=== PATIENT | male | born 1955 | race Caucasian/White ===

== ENCOUNTER 2018-11-26 11:15 | Emergency (ER) | payer MEDICAID, SELFPAY ==
[2018-11-26 11:16] VITALS: BP 158/82; PULSE 56; RESP 20; TEMP 36.6; O2SAT 99; BMI 22.9
--- NOTE | 2018-11-26 11:28 | RAD_ITS ---
STUDY: X-RAY - LEFT WRIST REASON FOR EXAM: Male, 63 years old. Pain and deformity following a fall. TECHNIQUE: 3 view(s) of the wrist were obtained. COMPARISON: None. FINDINGS: Normal visualized distal radius and ulna. There is degenerative arthrosis of the radiocarpal articulation. Normal distal radioulnar articulation. Normal carpal bones. Normal carpal articulations. Normal carpometacarpal articulation of the thumb. Normal second through fifth carpometacarpal articulations. Normal visualized metacarpal bones. Soft tissue swelling. RAD/Wrist min 3 Views IMPRESSION: Degenerative changes at the radial carpal joint. Soft tissue swelling. Electronically Signed: Sorin Sorensen MD at 12:43 EST , Service support ,
--- NOTE | 2018-11-26 11:31 | ED.VISSUMM ---
- ER Visit Summary Date of Service: 11/26/18 Chief Complaint: Left wrist injury History of Present Illness: The patient is a 63 M presents to the emergency department left wrist injury. Patient was in her normal state of health. 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 He states that he slipped on a wet area of ground. He landed and try to catch himself with an outstretched left wrist behind him. He did not strike his head. He denies loss of consciousness. He is complaining of a sharp, stabbing pain in the wrist. He denies any other systemic symptoms. He is otherwise been in his normal state of health. Physical Examination: Exam is relatively unremarkable. The patient does have some swelling on the dorsum of the left wrist near the scaphoid. His pulses are normal. He is neurovascularly intact distally. The skin is not tenting. Test Results: [] Emergency Department Course and Treatment: Plain films were obtained of the wrist. There is no evidence of acute fracture. He does have rather significant arthritic change. I did discuss options with the patient. He is comfortable in a Velcro splint and I feel this is reasonable. He will be given a short course of analgesics. The patient already has orthopedic follow-up in place. He will be discharged home. Treatment Plan: [] Disposition: [] Impression: Urge 1. left wrist sprain This note was generated with Ribbon dictation software. It may contain incorrect words, spelling, and punctuation that were not noted in review of the chart prior to signing ED Disposition - Plan for ED Patient: Disposition: Home or Assisted Living Instructions: ED Sprain Wrist Prescriptions: Oxycodone HCl/Acetaminophen [Percocet 5/325] 1 tab PO Q6H PRN PRN 3 Days #8 tab PRN Reason: Pain Referrals: Ricky Emerson DO [Primary Care Provider] -
[2018-11-26] MEDS: oxyCODONE 5 MG Tablet PO (11:45)
== END 2018-11-26 13:26 | disposition home or self-care (01) ==
LOC: ED 12:21
PROVIDERS: Emergency Provider Emergency Medicine; Family Provider Family Medicine; PCP Family Medicine
DX: S63.502A Unspecified sprain of left wrist, initial encounter (principal); W01.0XXA Fall on same level from slipping, tripping and stumbling without subsequent striking against object, initial encounter; Y93.9 Activity, unspecified; Y92.9 Unspecified place or not applicable; Z72.0 Tobacco use
CPT/HCPCS: 73110; 99283

== ENCOUNTER 2018-12-29 16:57 | Emergency (ER) | payer MEDICAID, SELFPAY ==
[2018-12-29 16:57] VITALS: BP 161/108; PULSE 66; RESP 18; TEMP 37.1; O2SAT 99; BMI 23.6
--- NOTE | 2018-12-29 17:31 | ED.RN ---
per pt, he does not want to file workers comp.
--- NOTE | 2018-12-29 17:36 | CT_ITS ---
STUDY: CT LUMBAR SPINE WITHOUT CONTRAST REASON FOR EXAM: Male, 63 years old. Back pain RADIATION DOSAGE (If Supplied By Facility): CTDIvol = ( 10.23 ) mGy, DLP = ( 294.84 ) mGycm TECHNIQUE: The patient was scanned in a multi detector CT scanner. High resolution transaxial imaging was performed. Sagittal and coronal images were reconstructed. Individualized dose optimization techniques were used for this CT. COMPARISON: Radiograph 04/05/2015 FINDINGS: Normal lumbar lordosis. There is no substantial scoliosis. There are mild multilevel Schmorl's nodes and osteophytes which are unchanged from prior study.. There is a 1 x 1.7 cm exophytic right renal lesion which does not measure a simple cyst. L1-2: Normal endplates. Normal disc height and morphology. Mild facet spondylosis Normal central canal and bilateral lateral recesses. Normal bilateral intervertebral neural foramina. L2-3: Normal endplates. Normal disc height and morphology. There is mild facet spondylosis.. Normal central canal and bilateral lateral recesses. Normal bilateral intervertebral neural foramina. L3-4: No disc protrusion. Mild facet and ligamentous hypertrophy. There is no foraminal stenosis. No central canal stenosis L4-5: There is mild Schmorl's node superior endplate of L5 inferior endplate of L4. There is mild posterior bulging annulus. There is ligamentous hypertrophy. There are Moderate facet degenerative changes. Mild central canal narrowing. There is no foraminal stenosis. L5-S1: There is disc space narrowing. There is mild posterior disc osteophyte complex. Moderate facet degenerative changes. There is no significant central canal stenosis. Mild left and mild right foraminal stenosis Normal visualized paraspinous soft tissue structures. CT/Spine Lumbar without Contrast IMPRESSION: Multilevel spondylosis as above, no acute fractures 1 x 1.7 cm right exophytic renal lesion which does not measure a simple cyst. This is either a hemorrhagic cyst versus renal malignancy. Right renal ultrasound is recommended if this is not a simple cyst then multiphase CT or MRI would be recommended to further evaluate Electronically Signed: Kevin Sparks, at 20:57 EDT Tel , Service support ,
--- NOTE | 2018-12-29 17:36 | RAD_ITS ---
STUDY: X-RAY - LEFT WRIST REASON FOR EXAM: Male, 63 years old. Pain injury TECHNIQUE: 3 view(s) of the wrist were obtained. COMPARISON: 11/26/2018. FINDINGS: There is radiocarpal joint space narrowing, subchondral sclerosis and osteophyte formation there is stable widening of the scapholunate distance. There is stable Mild proximal migration of the capitate. There is stable mild dorsal tilting of the lunate. These findings are unchanged. There is Mild soft tissue edema. There are no acute fractures. RAD/Wrist min 3 Views IMPRESSION: Stable exam, no acute fractures. Stable significant radiocarpal osteoarthrosis, osteoarthrosis within the intercarpal joints, findings suspicious for scapholunate tear, mid carpal disassociation and DISI instability pattern Mild soft tissue edema Electronically Signed: Kevin Sparks, at 20:37 EDT Tel , Service support ,
--- NOTE | 2018-12-29 17:37 | ED.VISSUMM ---
- ER Visit Summary Date of Service: 12/29/18 Chief Complaint: Back injury History of Present Illness: The patient is a 63 M who presents for back injury that occurred 4 hours prior to presentation. Patient states he was lifting a 5 gallon bucket full of cleaning solution. He injured his back and then fell off the platform which was 2-3 feet elevated above the ground. The pocket then fell on him. He thinks he landed on left outstretched wrist. He is having severe lumbar back pain and is unable to sit straight up. He is also complaining of left wrist pain. He denies hitting his head. Denies neck pain. He is not on any blood thinners. He denies any loss of bowel or bladder control. Denies any numbness or weakness in the legs. He was able to ambulate afterwards but cannot stand up straight. Physical Examination: Vital signs: afebrile, hemodynamically stable, no hypoxia on room air General: well nourished, well developed, sitting on bed leaning to the left and appears uncomfortable Skin: warm, dry, no rash, no pallor HEENT: normocephalic and atraumatic; PERRL, EOMI, moist mucous membranes, neck supple with no midline tenderness or deformity Cardiovascular: regular rate and rhythm without murmurs, no peripheral edema, 2+ pulses all distal extremities Respiratory: No increased work of breathing, lungs are clear to auscultation bilaterally, no rales, rhonchi or wheezing Abdominal: Abdomen is soft, nontender with normoactive bowel sounds, no guarding or rebound, no masses MSK: Moves all extremities, tenderness to palpation and with movement of the left wrist, mild swelling over the distal radius, patient able to lift the shoulder in abduction and flexion to 90 degrees. No deformities noted to the shoulder. No tenderness. Back: Midline tenderness to palpation in the upper lumbar spine. No obvious deformities. Straight leg raise in sitting position is negative bilaterally. Neuro: Awake and alert, oriented ?4. No facial droop, sensation and motor function intact and symmetric Test Results: Clinical Impression(s) from Imaging Studies Lumbar Spine CT 12/29/18 17:36 IMPRESSION: Multilevel spondylosis as above, no acute fractures 1 x 1.7 cm right exophytic renal lesion which does not measure a simple cyst. This is either a hemorrhagic cyst versus renal malignancy. Right renal ultrasound is recommended if this is not a simple cyst then multiphase CT or MRI would be recommended to further evaluate Electronically Signed: Kevin Sparks, at 20:57 EDT Tel , Service support , Wrist X-Ray 12/29/18 17:36 IMPRESSION: Stable exam, no acute fractures. Stable significant radiocarpal osteoarthrosis, osteoarthrosis within the intercarpal joints, findings suspicious for scapholunate tear, mid carpal disassociation and DISI instability pattern Mild soft tissue edema Electronically Signed: Kevin Sparks, at 20:37 EDT Tel , Service support , Medications Given Discontinued Medications Acetaminophen (Tylenol) 325 mg PO X1 ONE Stop: 12/29/18 17:38 Last Admin: 12/29/18 17:52 Dose: 325 mg Oxycodone HCl (Oxyir) 5 mg PO X1 ONE Stop: 12/29/18 17:38 Last Admin: 12/29/18 17:53 Dose: 5 mg Oxycodone HCl (Oxyir) 5 mg PO X1 ONE Stop: 12/29/18 20:18 Last Admin: 12/29/18 20:22 Dose: 5 mg Emergency Department Course and Treatment: Patient was given Percocet for pain. Because of the mechanism of injury, patient's inability to stand up straight, and his exquisite point tenderness, CT of the lumbar spine was performed. CT scan showed no fractures or dislocations of the lumbar spine. There was an incidental note of of right exophytic renal cyst with differential including renal malignancy. Patient's x-ray of the left wrist showed no fractures and showed significant degenerative changes. Because patient did swelling over the snuffbox region, patient was offered a splint but refused. Patient was discussed with Dr. Sumner guarding the incidental renal findings, and patient will be referred to him for follow-up of the renal cyst. Patient was given prescription for ibuprofen and Flexeril for his back sprain. He was given referral to a primary care doctor. Patient is to return if any worsening of his condition. Patient had no red flag symptoms that would be concerning for spinal cord injury and requiring emergent MRI. Patient discharged home. On reevaluation he was sitting in bed and appeared more comfortable. Treatment Plan: [] Disposition: [] Impression: Lumbar sprain secondary to fall, right exophytic renal mass, left wrist contusion This note was generated with Med fusion dictation software. It may contain incorrect words, spelling, and punctuation that were not noted in review of the chart prior to signing ED Disposition - Plan for ED Patient: Disposition: Home or Assisted Living Instructions: ED Low Back Pain Injury, ED Sprain Strain Lumbar, ED Sprain Wrist Prescriptions: Ibuprofen 600 mg PO Q6H PRN PRN #30 tab PRN Reason: Pain Cyclobenzaprine HCl 5 mg PO TID PRN #15 tab PRN Reason: Muscle Spasm Referrals: Ricky Emerson DO [STAFF PHYSICIAN] - As soon as possible Pascual Sumner MD [STAFF PHYSICIAN] - 1 Week Additional Instructions: You have a mass that was noted on your right kidney that requires further workup. Please contact the office of Dr. Sumner as it is possible to set up an appointment. Use ibuprofen for your back pain. You may use the muscle relaxant to help with muscle spasm. Do not drive or do any dangerous activities while taking the muscle relaxant, as it may make you sleepy or dizzy. If you have any worsening of your condition or any new concerning symptoms, please return immediately to the emergency department for another evaluation.
--- NOTE | 2018-12-29 17:41 | ED.DCSUM_ITS ---
- ER Visit Summary Date of Service: 12/29/18 Chief Complaint: Back injury History of Present Illness: The patient is a 63 M who presents for back injury that occurred 4 hours prior to presentation. Patient states he was lifting a 5 gallon bucket full of cleaning solution. He injured his back and then fell off the platform which was 2-3 feet elevated above the ground. The pocket then fell on him. He thinks he landed on left outstretched wrist. He is having severe lumbar back pain and is unable to sit straight up. He is also complaining of left wrist pain. He denies hitting his head. Denies neck pain. He is not on any blood thinners. He denies any loss of bowel or bladder control. Denies any numbness or weakness in the legs. He was able to ambulate afterwards but cannot stand up straight. Physical Examination: Vital signs: afebrile, hemodynamically stable, no hypoxia on room air General: well nourished, well developed, sitting on bed leaning to the left and appears uncomfortable Skin: warm, dry, no rash, no pallor HEENT: normocephalic and atraumatic; PERRL, EOMI, moist mucous membranes, neck supple with no midline tenderness or deformity Cardiovascular: regular rate and rhythm without murmurs, no peripheral edema, 2+ pulses all distal extremities Respiratory: No increased work of breathing, lungs are clear to auscultation bilaterally, no rales, rhonchi or wheezing Abdominal: Abdomen is soft, nontender with normoactive bowel sounds, no guarding or rebound, no masses MSK: Moves all extremities, tenderness to palpation and with movement of the left wrist, mild swelling over the distal radius, patient able to lift the shoulder in abduction and flexion to 90 degrees. No deformities noted to the shoulder. No tenderness. Back: Midline tenderness to palpation in the upper lumbar spine. No obvious deformities. Straight leg raise in sitting position is negative bilaterally. Neuro: Awake and alert, oriented ?4. No facial droop, sensation and motor function intact and symmetric Test Results: Clinical Impression(s) from Imaging Studies Lumbar Spine CT 12/29/18 17:36 IMPRESSION: Multilevel spondylosis as above, no acute fractures 1 x 1.7 cm right exophytic renal lesion which does not measure a simple cyst. This is either a hemorrhagic cyst versus renal malignancy. Right renal ultrasound is recommended if this is not a simple cyst then multiphase CT or MRI would be recommended to further evaluate Electronically Signed: Kevin Sparks, at 20:57 EDT Tel , Service support , Wrist X-Ray 12/29/18 17:36 IMPRESSION: Stable exam, no acute fractures. Stable significant radiocarpal osteoarthrosis, osteoarthrosis within the intercarpal joints, findings suspicious for scapholunate tear, mid carpal disassociation and DISI instability pattern Mild soft tissue edema Electronically Signed: Kevin Sparks, at 20:37 EDT Tel , Service support , Medications Given Discontinued Medications Acetaminophen (Tylenol) 325 mg PO X1 ONE Stop: 12/29/18 17:38 Last Admin: 12/29/18 17:52 Dose: 325 mg Oxycodone HCl (Oxyir) 5 mg PO X1 ONE Stop: 12/29/18 17:38 Last Admin: 12/29/18 17:53 Dose: 5 mg Oxycodone HCl (Oxyir) 5 mg PO X1 ONE Stop: 12/29/18 20:18 Last Admin: 12/29/18 20:22 Dose: 5 mg Emergency Department Course and Treatment: Patient was given Percocet for pain. Because of the mechanism of injury, patient's inability to stand up straight, an d his exquisite point tenderness, CT of the lumbar spine was performed. CT scan showed no fractures or dislocations of the lumbar spine. There was an incidental note of of right exophytic renal cyst with differential including renal malignancy. Patient's x-ray of the left wrist showed no fractures and showed significant degenerative changes. Because patient did swelling over the snuffbox region, patient was offered a splint but refused. Patient was discussed with Dr. Sumner guarding the incidental renal findings, and patient will be referred to him for follow-up of the renal cyst. Patient was given prescription for ibuprofen and Flexeril for his back sprain. He was given referral to a primary care doctor. Patient is to return if any worsening of his condition. Patient had no red flag symptoms that would be concerning for spinal cord injury and requiring emergent MRI. Patient discharged home. On reevaluation he was sitting in bed and appeared more comfortable. Treatment Plan: [] Disposition: [] Impression: Lumbar sprain secondary to fall, right exophytic renal mass, left wrist contusion This note was generated with Zalando dictation software. It may contain incorrect words, spelling, and punctuation that were not noted in review of the chart prior to signing ED Disposition - Plan for ED Patient: Disposition: Home or Assisted Living Instructions: ED Low Back Pain Injury, ED Sprain Strain Lumbar, ED Sprain Wrist Prescriptions: Ibuprofen 600 mg PO Q6H PRN PRN #30 tab PRN Reason: Pain Cyclobenzaprine HCl 5 mg PO TID PRN #15 tab PRN Reason: Muscle Spasm Referrals: Ricky Emerson DO [STAFF PHYSICIAN] - As soon as possible Pascual Sumner MD [STAFF PHYSICIAN] - 1 Week Additional Instructions: You have a mass that was noted on your right kidney that requires further workup. Please contact the office of Dr. Sumner as it is possible to set up an appointment. Use ibuprofen for your back pain. You may use the muscle relaxant to help with muscle spasm. Do not drive or do any dangerous activities while taking the muscle relaxant, as it may make you sleepy or dizzy. If you have any worsening of your condition or any new concerning symptoms, please return immediately to the emergency department for another evaluation.
[2018-12-29 17:46] VITALS: RESP 16
[2018-12-29] MEDS: Acetaminophen 325 MG Tablet PO (17:52)
[2018-12-29] MEDS: oxyCODONE 5 MG Tablet PO ×2 (17:53→20:22)
[2018-12-29 18:37] VITALS: RESP 18
[2018-12-29 21:22] VITALS: PULSE 88; RESP 18; O2SAT 95
== END 2018-12-29 21:23 | disposition home or self-care (01) ==
PROVIDERS: Emergency Provider Emergency Medicine
DX: S33.5XXA Sprain of ligaments of lumbar spine, initial encounter (principal); S63.502A Unspecified sprain of left wrist, initial encounter; X50.9XXA Other and unspecified overexertion or strenuous movements or postures, initial encounter; W17.89XA Other fall from one level to another, initial encounter; Y93.9 Activity, unspecified; Y92.9 Unspecified place or not applicable; Y99.9 Unspecified external cause status; M19.90 Unspecified osteoarthritis, unspecified site; N28.89 Other specified disorders of kidney and ureter
CPT/HCPCS: 72131; 73110; 99283

== ENCOUNTER 2018-12-31 16:27 | Emergency (ER) | payer MEDICAID, SELFPAY ==
[2018-12-31 16:28] VITALS: BP 140/82; PULSE 58; RESP 19; TEMP 36.9; O2SAT 97; BMI 22.9
--- NOTE | 2018-12-31 16:42 | CT_ITS ---
STUDY: CT ABDOMEN AND PELVIS WITH AND WITHOUT CONTRAST REASON FOR EXAM: Male, 63 years old. Left flank pain, renal lesion seen on CT lumbar spine RADIATION DOSAGE (If Supplied By Facility): CTDIvol = ( 13.57 ) mGy, DLP = ( 1319.60 ) mGycm TECHNIQUE: Transaxial images were obtained from the dome of the diaphragm to the symphysis pubis without oral contrast. Isovue 300 100 IV was administered. Sagittal and coronal images were reconstructed. Individualized dose optimization techniques were used for this CT. COMPARISON: None. FINDINGS: The visualized lung bases are unremarkable. The visualized portions of the heart are within normal limits. Normal liver. Normal gallbladder and extrahepatic biliary system. There are multiple benign calcified granulomata of the spleen. Mild dilatation of the pancreatic duct measuring up to 3 mm in diameter. Normal bilateral adrenal glands. There is an exophytic 1.8 cm nodule of the posterior right kidney measuring 13 Hounsfield units in density. There is no enhancement of this structure. There are several additional subcentimeter hypodense foci of the right kidney. There is a 1.3 cm cyst of the midpole of the left kidney. Normal visualized stomach. Normal small intestine. There is colonic diverticulosis with no evidence of associated diverticulitis. The appendix is visualized and appears normal. There are calcified plaques of the abdominal aorta and common iliac arteries. Normal inferior vena cava. Normal retroperitoneum. Normal urinary bladder. The prostate, seminal vesicles, and seminal vesicle angles are within normal limits. There is prominent pelvic vascularity. There is a small umbilical hernia containing fat. There are mild degenerative changes of the visualized thoracolumbar spine. CT/CT Abd/Pelvis W/WO Contrast IMPRESSION: 1. Multiple benign calcified granuloma the spleen. 2. Exophytic 1.8 cm nodule of the posterior right kidney measuring 13 Hounsfield units in density consistent with cyst. Several additional subcentimeter hypodense foci of the right kidney are also noted,, also most likely representing cysts. 1.3 cm cyst of the midpole of the left kidney. Nonemergent ultrasound correlation is recommended. 3. Colonic diverticulosis with no evidence of associated diverticulitis. 4. Prominent pelvic vascularity. 5. Small fat-containing umbilical hernia. 6. Mild degenerative changes of the visualized thoracolumbar spine. 7. There is no evidence of free intra-abdominal or intrapelvic air, fluid, or inflammatory process. 8. Mild dilatation of the pancreatic duct measuring up to 3 mm. Electronically Signed: Zak Perez MD at 18:35 EDT , Service support ,
[2018-12-31] MEDS: 0.9% Normal Saline 1,000 ML 125 ML IV (17:18)
[2018-12-31] MEDS: Ondansetron 4 MG/2 ML Vial IV (17:19)
[2018-12-31] MEDS: Morphine 4 MG/ML Syringe IV (17:19)
[2018-12-31 17:21] LABS: Absolute Lymphocyte Count 1.73 X10^3/ul (0.83-4.51); Basophil# 0.03 X10^3/uL; Basophil% 0.4 % (0-1); Eosinophil# 0.23 X10^3/uL; Eosinophils% 3.4 % (0-5); Hematocrit 40.7 % (40-54); Hemoglobin 13.2 g/dl (13.0-16.5); Lymphocyte # 1.73 X10^3/ul (4.0); Lymphocyte % 25.7 % (19-41); Mean Corp Hgb Conc 32.4 g/gl (32-36); Mean Corpuscular Hgb 29.7 pg (27.0-32.0); Mean Corpuscular Volume 91.7 fL (80-94); Mean Platelet Vol. 8.6 fl (6.2-12.0); Monocyte# 0.71 X10^3/uL; Monocyte% 10.6 % (0-10); Neutrophil # 4.01 X10^3/uL (2.7-7.7); Neutrophil % 59.8 % (47-70); POSITIVE COUNT NO; POSITIVE DIFFERENTIAL NO; POSITIVE MORPHOLOGY NO; Platelet Count 363 K/mm3 (150-450); RBC Distribution Width SD 42.6 fl (35.1-43.9); Red Blood Count 4.44 M/mm3 (4.6-6.2); White Blood Count 6.7 K/mm3 (4.4-11.0)
[2018-12-31 17:33] LABS: Anion Gap 7 (5-15); BUN 16 mg/dL (7-18); Calcium,Total 8.6 mg/dL (8.5-10.1); Chloride 108 mmol/L (98-107); Creatinine, Serum 0.94 mg/dL (0.70-1.30); EST Glomerular Filtration Rate 86 mL/min (>60); Est Glom Filt Rate - Afr Amer 104 mL/min (>60); Estimated Creatinine Clearance 90.96 ml/min; Glucose 93 mg/dL (74-106); Sodium Level 143 mmol/L (136-145)
[2018-12-31 18:30] VITALS: RESP 16
[2018-12-31 18:33] LABS: Bacteria 0 SEEN /hpf (None Seen); Mucous, Urine 0 SEEN /hpf (<or=2+); Red Blood Cells-Urine 0 SEEN /hpf (0-5)
[2018-12-31 18:45] LABS: Color, Urine Yellow (Yellow); Glucose, Dipstick Normal (Normal); Ketone-Dipstick Negative (Negative); Leukocyte Esterase-Dipstick 25 /ul (Negative); Nitrite-Dipstick Negative (Negative); Occult Blood-Urine 25 /ul (Negative); Protein-Dipstick Negative (Negative); Urine Bilirubin Dipstick Negative (Negative); Urine Clarity Clear (Clear); Urine Urobilinogen Normal (Normal)
--- NOTE | 2018-12-31 18:52 | ED.VISSUMM ---
- ER Visit Summary Date of Service: 12/31/18 Chief Complaint: [] History of Present Illness: The patient is a 63 M [left flank pain presents the emergency department complaint of left flank pain for 3 days. Patient states that 3 days ago he had a fall and was seen in the emergency department here. Patient had a CAT scan of his back that showed a mass on his right kidney. Patient states that he is scheduled to follow-up with the urologist. Patient states that he has had significant pain over the last 3 days and ibuprofen and muscle relaxer not helping. Patient denies any fever. He denies urinary symptoms. He denies any nausea or vomiting. He denies any hematuria.] Physical Examination: [HEENT-PERRLA, EOMI. Cranial nerves II through XII grossly intact. TMs clear. Mucous membranes moist. No adenopathy. Cardiovascular-regular rate and rhythm without murmur or ectopy Lungs-clear to auscultation, chest wall stable without crepitus or subcu emphysema Abdomen-normoactive bowel sounds, soft, nontender, no rebound or rigidity, no peritoneal signs. Back exam-patient does have CVA tenderness on the left. There is no ecchymosis or bruising noted. Extremities-intact ?4, normal range of motion, normal pulses, atraumatic] Test Results: [CBC with differential obtained showed a white count 6.7, hemoglobin 13, hematocrit 41, placed 363. Chemistries were normal. Urinalysis was normal. CT scan with IV contrast ordered showed calcific granulomas of the spleen as well as exophytic 1.8 cm nodule posterior right kidney measuring 13 Hounsfield units in density consistent with a cyst he had also several additional subcentimeter hypodense foci of the right kidney also most likely representing cysts. Patient also had a 1.3 cm cyst midpole left kidney. He had a small fat-containing umbilical hernia. Mild degenerative changes of the visualized thoracolumbar spine. There is no evidence of free intra-abdominal or intrapelvic air, fluid, or inflammatory process. Mild dilatation of the pancreatic duct measuring up to 3 mm.] Emergency Department Course and Treatment: [Patient was medicated with morphine and Zofran.] Treatment Plan: [Patient to follow-up with urology.] Disposition: [Discharged home in stable condition] Impression: [Back pain status post fall] This note was generated with Dragon dictation software. It may contain incorrect words, spelling, and punctuation that were not noted in review of the chart prior to signing ED Disposition - Plan for ED Patient: Referrals: Care Physician,No Primary [Primary Care Provider] -
--- NOTE | 2018-12-31 18:54 | ED.DEP ---
ED Disposition - Plan for ED Patient: Instructions: ED Contusion Back Prescriptions: Oxycodone HCl/Acetaminophen [Percocet 5/325] 1 tab PO Q6H PRN PRN 3 Days #12 tab PRN Reason: Pain Referrals: Care Physician,No Primary [Primary Care Provider] - Pascual Sumner MD [STAFF PHYSICIAN] - 3-5 Days
[2018-12-31 18:57] LABS: Squamous Epithelial Cells - UA 0-5 SEEN /hpf (0-5)
[2018-12-31 18:58] LABS: White Blood Cells 0-5 SEEN /hpf (0-5)
== END 2018-12-31 19:05 | disposition home or self-care (01) ==
LOC: ED 16:46
PROVIDERS: Emergency Provider Emergency Medicine
DX: M54.9 Dorsalgia, unspecified (principal); R30.0 Dysuria; R11.0 Nausea; N28.1 Cyst of kidney, acquired; K42.9 Umbilical hernia without obstruction or gangrene; K86.89 Other specified diseases of pancreas; Z87.891 Personal history of nicotine dependence
CPT/HCPCS: 74178; 80048; 81001; 85025; 96361; 96374; 96375; 99283; J7030; Q9967; A4216; J2405

== ENCOUNTER → 2019-01-02 15:01 | Outpatient (CLI) | payer MEDICAID, SELFPAY ==
[2018-12-31 16:28] VITALS: BMI 22.9
[2019-01-02 15:53] LABS: Anion Gap 5 (5-15); BUN 13 mg/dL (7-18); BUN/Creat Ratio 12.6 RATIO (10-20); Calcium,Total 8.8 mg/dL (8.5-10.1); Chloride 106 mmol/L (98-107); Creatinine, Serum 1.03 mg/dL (0.70-1.30); EST Glomerular Filtration Rate 78 mL/min (>60); Est Glom Filt Rate - Afr Amer 94 mL/min (>60); Glucose 94 mg/dL (74-106); Sodium Level 138 mmol/L (136-145)
[2019-01-02 17:31] LABS: PSA,Total - Annual Screen 1.59 ng/mL (0.00-4.00)
== END ==
PROVIDERS: Referring Provider Urology; Visit Provider Urology
DX: Z12.5 Encounter for screening for malignant neoplasm of prostate (principal)
CPT/HCPCS: 36415; 80048; 84153; G0103

== ENCOUNTER → 2019-01-17 11:57 | Outpatient (CLI) | payer MEDICAID, SELFPAY ==
[2018-12-31 16:28] VITALS: BMI 22.9
--- NOTE | 2019-01-17 13:00 | MRI_ITS ---
STUDY: MRI ABDOMEN WITH AND WITHOUT CONTRAST REASON FOR EXAM: Male, 63 years old. Bilateral renal masses, left-sided back pain TECHNIQUE: Standardized fat and water weighted pulse sequences were obtained in all 3 orthogonal planes post contrast administration. 15 IV Dotarem was administered for the contrast portion of the examination. COMPARISON: CT from 12/31/2018 FINDINGS: Base of the chest is unremarkable and is visualized extent. Normal liver. Normal gallbladder and extrahepatic biliary system. Normal spleen. Normal pancreas. Normal bilateral adrenal glands. There are 2 T2 bright, T1 dark cystic lesions of the right kidney measuring up to 1.7 cm (posterior) correlating to lesion evident on prior CT. No abnormal contrast enhancement. Similar signal intensity lesion of the central mid left kidney measures 1.3 cm, also without abnormal contrast enhancement. The visualized hollow viscus structures are unremarkable. No retroperitoneal adenopathy. No demonstrated bone marrow edema. MRI/MRI Abd WITH and W/O Contrast IMPRESSION: 1. Simple (Bosniak I) bilateral renal cysts. No complex or solid renal masses identified. Electronically Signed: Giles Allison MD at 12:44 EDT , Service support ,
== END ==
PROVIDERS: Referring Provider Urology; Visit Provider Urology
DX: N28.89 Other specified disorders of kidney and ureter (principal)
CPT/HCPCS: 74183; A9575

== ENCOUNTER 2019-01-19 10:59 | Emergency (ER) | payer MEDICAID, SELFPAY ==
[2019-01-19 11:00] VITALS: BP 127/86; PULSE 67; RESP 18; TEMP 36.7; O2SAT 99; BMI 23.7
--- NOTE | 2019-01-19 11:07 | RAD_ITS ---
STUDY: X-RAY - RIGHT FOOT CLINICAL: Male, 63 years old. Right-sided foot pain after recent trauma. TECHNIQUE: 3 view(s) of the foot. COMPARISON: Radiographs of the right foot dated September 21, 2014. FINDINGS: Normal talus, calcaneus, and tarsal bones. The intertarsal articulations are within normal limits. There are erosive changes and deformity of the distal first metatarsal is probably related to severe erosive and degenerative arthropathy at the first metatarsophalangeal joint. Second, third, fourth and fifth metatarsals have a grossly normal appearance. Normal tibial and fibular sesamoid bones. Normal interphalangeal joint of the great toe. Normal phalanges of the great toe. Normal second through fifth metatarsophalangeal joints. Normal interphalangeal joints and phalanges of the lesser toes. The soft tissue structures are unremarkable. There is no demonstrated fracture. RAD/Foot min 3 Views IMPRESSION: 1. No radiographic evidence for acute fracture. 2. Severe degenerative and erosive changes of the first metatarsophalangeal joint similar to previous radiographs. 3. If there is still clinical concern for acute fracture, follow-up radiographs in 7-10 days maybe helpful in evaluating a healing radiographically occult fracture. Electronically Signed: Mary Bullock MD at 11:29 EDT , Service support ,
[2019-01-19] MEDS: Ibuprofen 600 MG Tablet PO (11:14)
[2019-01-19] MEDS: HYDROcodone Bitartrate/Apap 5/325 Tablet PO (11:14)
--- NOTE | 2019-01-19 11:15 | ED.DCSUM_ITS ---
History of Present Illness Chief Complaint: Lower Extremity Injury Informant: Patient Occurred: Today Mechanism/Context: Injury Onset: Today Context: Sudden Onset Timing: Continuous Quality of Pain: Dull, Aching, Throbbing Current Severity: Mild Maximum Severity: Severe Worsened by: Walking Relieved by: Nothing Associated Symptoms: Negative for: Parasthesia, Weakness, Loss of Funtion Narrative: Patient states freezer dropped onto his right foot. He complains of pain MTP joint of the right great toe. There is discoloration noted. He denies paresthesia, anesthesia motors. He is not diabetic. He has no history of peripheral arterial disease. Prior similar symptoms: No Recent Illness/Hospitalization: No Past Medical History - Allergies and Home Meds Allergies/Adverse Reactions: Allergies acetaminophen [From [place]] Adverse Reaction (Verified 01/19/19 11:02) Upset Stomach hydrocodone [From [place]] Adverse Reaction (Verified 01/19/19 11:02) Upset Stomach tramadol Adverse Reaction (Verified 01/19/19 11:02) Upset Stomach Primary Care Physician: Care Physician,No Primary [Primary Care Provider] - Prior records reviewed: Yes - Urology workup for prostate cancer Surgical History: noncontributory Lives: Alone - Is Smoking Status: Former smoker Alcohol: None Review of Systems Gastrointestinal: Denies: Nausea, Vomiting Musculoskeletal: Reports: Extremity Pain. Denies: Myalgias, Arthralgias, Back pain, Swelling Neurological: Denies: Weakness, Parasthesia, Numbness Hematologic: Denies: Easy bruising, Easy bleeding Physical Exam Vital Signs/Narrative: Vital Signs Temp Pulse Resp BP Pulse Ox 01/19/19 11:00 98.0 F 67 18 127/86 H 99 - Extremity Exam Left Tib Fib: Negative for: Abrasion, Contusion, Deformity, Edema, Hematoma, Limited ROM, - Left Ankle: Negative for: Abrasion, Contusion, Deformity, Edema, Hematoma, Limited ROM, - Left Foot: Contusion, Edema, Hematoma, Limited ROM - Of the great toe., - - DP and PT pulses are palpable. There is no subungual hematoma noted.. Negative for: Abrasion, Deformity Left Toe: Contusion, Edema, Limited ROM, - - Of the great toe. No subungual hematoma noted. General: Well nourished, Well developed Head: Normocephalic, Atraumatic Eyes: Perrl, EOMI Cardiovascular: Regular rate, Regular rhythm Respiratory: No distress Back: Nontender Skin: Normal color, No rash, Trauma - Discoloration MTP joint right great toe Neurological: Alert, Oriented x3, Cranial nerves II-XII grossly intact, Normal Strength, Normal Sensation. Negative for: Normal Gait Psychological: Normal affect Diagnostic/Tx/Re-eval Chest X-Ray - ED: Read by ED Physician Three-view x-ray of the foot reveals marked degenerative changes over the MTP joint where he has discomfort. There is no evidence of acute fracture. - Medical Decision Making X-ray of the foot was obtained to evaluate for contusion versus fracture. Patient was medicated with 600 mg of ibuprofen p.o. and one [place] tablet since he has a ride home. Since there is no evidence of fracture will treat as a crush injury/contusion. ED Disposition - Plan for ED Patient: Disposition: Home or Assisted Living Diagnosis: Contusion of right great toe without damage to nail, initial encounter Instructions: ED Contusion Foot Prescriptions: Naproxen [Naprosyn] 500 mg PO BID #14 tab Referrals: Care Physician,No Primary [Primary Care Provider] -
== END 2019-01-19 12:09 | disposition home or self-care (01) ==
LOC: ED 12:01
PROVIDERS: Emergency Provider Emergency Medicine
DX: S90.111A Contusion of right great toe without damage to nail, initial encounter (principal); W20.8XXA Other cause of strike by thrown, projected or falling object, initial encounter; Z87.891 Personal history of nicotine dependence
CPT/HCPCS: 73630; 99283

== ENCOUNTER 2019-02-07 09:30 | Emergency (ER) | payer MEDICAID, SELFPAY ==
[2019-02-07 09:32] VITALS: BP 140/81; PULSE 60; RESP 16; TEMP 36.8; O2SAT 99; BMI 22.8
--- NOTE | 2019-02-07 09:42 | ED.DCSUM_ITS ---
- ER Visit Summary Date of Service: 02/07/19 Chief Complaint: Injury to left knee History of Present Illness: The patient is a 64 M who states he injured his left knee. About an hour ago he was in his bathroom when he twisted his left knee. He did not fall. He now has pain over the left knee. It is worse with movement and with walking. He denies taking any medications at home. No previous surgeries to this left knee. Physical Examination: Vital signs are reviewed. Left knee exam reveals tenderness to palpation in the medial inferior patellar portions of the knee. His extensor mechanism is intact. He has decreased range of motion secondary to pain. He has no swelling. Test Results: Left knee x-ray is normal Emergency Department Course and Treatment: Patient was given oxycodone for pain. Patient will have an Barak wrap and crutches. He will take Tylenol and ice and elevate at home. Will follow up with his PCP for further testing if pain persists Treatment Plan: [] Disposition: Discharge Impression: Left knee pain This note was generated with [employer] dictation software. It may contain incorrect words, spelling, and punctuation that were not noted in review of the chart prior to signing ED Disposition - Plan for ED Patient: Referrals: Care Physician,No Primary [NON-STAFF] -
--- NOTE | 2019-02-07 10:15 | RAD_ITS ---
STUDY: X-RAY - LEFT KNEE REASON FOR EXAM: Male, 64 years old. Pain following injury. TECHNIQUE: 4 view(s) of the knee. COMPARISON: None. FINDINGS: Normal visualized distal femur. Normal visualized proximal tibia and fibula. Normal proximal tibiofibular articulation. Normal medial femorotibial compartment. Normal lateral femorotibial compartment. Normal patellofemoral articulation. The soft tissue structures are unremarkable. RAD/Knee 4 or More Views IMPRESSION: Normal x-ray examination of the knee. Electronically Signed: Sorin Sorensen, at 10:52 EDT , Service support ,
[2019-02-07] MEDS: oxyCODONE 5 MG Tablet PO (10:29)
--- NOTE | 2019-02-07 11:03 | ED.DEP ---
ED Disposition - Plan for ED Patient: Disposition: Home or Assisted Living Instructions: ED Knee Pain [facility] Referrals: Care Physician,No Primary [NON-STAFF] - Panchito Perez MD [STAFF PHYSICIAN] -
== END 2019-02-07 11:21 | disposition home or self-care (01) ==
PROVIDERS: Emergency Provider Emergency Medicine; Family Provider Student in an Organized Health Care Education/Training Program; PCP Student in an Organized Health Care Education/Training Program
DX: M25.562 Pain in left knee (principal); X50.1XXA Overexertion from prolonged static or awkward postures, initial encounter; Y93.9 Activity, unspecified; Y92.89 Other specified places as the place of occurrence of the external cause; M19.90 Unspecified osteoarthritis, unspecified site; Z79.899 Other long term (current) drug therapy
CPT/HCPCS: 73564; 99284

== ENCOUNTER 2019-02-10 14:26 | Emergency (ER) | payer MEDICAID, SELFPAY ==
[2019-02-10 14:27] VITALS: BP 138/76; PULSE 54; RESP 18; TEMP 36.6; O2SAT 99; BMI 23.5
--- NOTE | 2019-02-10 15:18 | RAD_ITS ---
STUDY: X-RAY - PELVIS AND LEFT HIP REASON FOR EXAM: Male, 64 years old. Fall. Pain. TECHNIQUE: 3 views of the pelvis and hip. COMPARISON: None. FINDINGS: There is a non-specific bowel gas pattern. Normal visualized soft tissue structures. Normal bilateral iliac wings, sacroiliac joints and visualized sacrum. Normal bilateral superior and inferior pubic rami. Normal pubic symphysis. Normal bilateral ischial tuberosities. Normal visualized femoral head. Normal acetabulum. Normal hip joint. RAD/HIP, UNI W/ Pelvis 2-3 Views IMPRESSION: Normal x-ray examination of the pelvis and hip. Electronically Signed: Neville Ellis MD at 15:55 EDT , Service support ,
--- NOTE | 2019-02-10 15:28 | RAD_ITS ---
STUDY: X-RAY - LEFT SHOULDER REASON FOR EXAM: Male, 64 years old. Trauma TECHNIQUE: 2 view(s) of the shoulder. COMPARISON: None. FINDINGS: Normal glenohumeral articulation. Normal acromioclavicular joint. Normal acromion. Normal humeral head and visualized proximal humerus. The soft tissue structures are unremarkable. Normal visualized pulmonary apex. RAD/Shoulder min 2 Views IMPRESSION: Normal x-ray examination of the shoulder. Electronically Signed: Rosalba Xiao, at 15:59 EDT Tel , Service support ,
--- NOTE | 2019-02-10 15:51 | RAD_ITS ---
STUDY: X-RAY - CERVICAL SPINE REASON FOR EXAM: Male, 64 years old. Fall. TECHNIQUE: 3 view(s) of the cervical spine were obtained. COMPARISON: None FINDINGS: Normal anterior atlantoaxial articulation. Normal odontoid process. Normal cervical lordosis. There is multi-level endplate spondylosis. There is multi-level degenerative disc disease with multilevel disc space narrowing. The soft tissue structures are unremarkable. There is no demonstrated fracture of the cervical spine. RAD/Cerv Spine 2 or 3 Views IMPRESSION: Degenerative changes. No acute abnormality. Electronically Signed: Neville Ellis MD at 16:58 EDT , Service support ,
--- NOTE | 2019-02-10 15:51 | RAD_ITS ---
STUDY: X-RAY - LUMBAR SPINE REASON FOR EXAM: Male, 64 years old. Fall. TECHNIQUE: 2 view(s) of the lumbar spine were obtained. COMPARISON: None FINDINGS: There is straightening of the normal lumbar lordosis. There is no substantial scoliosis. There is a normal alignment of the vertebrae. Normal vertebral bodies and endplates. Moderate narrowing of the disc at L5-S1. Mild narrowing of the remaining disks. There is no demonstrated fracture. There is atherosclerotic calcification of the abdominal aorta without a demonstrated aneurysm. RAD/Lumbar Spine 2 or 3 Views IMPRESSION: Limited 2 view study of the lumbar spine shows no acute abnormalities. Age-appropriate degenerative changes. Electronically Signed: Neville Ellis MD at 17:09 EDT , Service support ,
--- NOTE | 2019-02-10 15:51 | RAD_ITS ---
STUDY: X-RAY - LEFT FOOT CLINICAL: Male, 64 years old. Fall. TECHNIQUE: 3 view(s) of the foot. COMPARISON: None. FINDINGS: There is a plantar calcaneal spur. Degenerative changes of the visualized subtalar, talonavicular, calcaneocuboid, tarsal and tarsometatarsal articulations. Normal metatarsi. Normal metatarsophalangeal joint of the great toe. Normal tibial and fibular sesamoid bones. Normal interphalangeal joint of the great toe. Normal phalanges of the great toe. Normal second through fifth metatarsophalangeal joints. Normal interphalangeal joints and phalanges of the lesser toes. The soft tissue structures are unremarkable. There is no demonstrated fracture. RAD/Foot min 3 Views IMPRESSION: No acute fractures or dislocations. Degenerative changes. Electronically Signed: Neville Ellis MD at 17:01 EDT , Service support ,
--- NOTE | 2019-02-10 15:51 | RAD_ITS ---
STUDY: X-RAY - THORACIC SPINE REASON FOR EXAM: Male, 64 years old. Fall from ladder 30 feet TECHNIQUE: 3 view(s) of the thoracic spine were obtained. COMPARISON: None. FINDINGS: Normal kyphosis of the thoracic spine. There is no substantial scoliosis. There is multilevel endplate spondylosis of the thoracic vertebrae. Normal disc space heights. The soft tissue structures are unremarkable. RAD/Thoracic Spine 3 Views IMPRESSION: No acute abnormality. Unremarkable for age. Electronically Signed: Neville Ellis MD at 16:56 EDT , Service support ,
--- NOTE | 2019-02-10 15:51 | RAD_ITS ---
STUDY: X-RAY - LEFT KNEE REASON FOR EXAM: Male, 64 years old. Fall. TECHNIQUE: 2 view(s) of the knee. COMPARISON: None. FINDINGS: Normal visualized distal femur. Normal visualized proximal tibia and fibula. Normal proximal tibiofibular articulation. There is no demonstrated fracture. Normal medial femorotibial compartment. Normal lateral femorotibial compartment. Normal patellofemoral articulation. There is no demonstrated joint effusion. The soft tissue structures are unremarkable. RAD/Knee 1 or 2 Views IMPRESSION: Normal x-ray examination of the knee. Electronically Signed: Neville Ellis MD at 17:00 EDT , Service support ,
[2019-02-10] MEDS: HYDROmorphone 0.5 MG/0.5 ML SYRINGE IV (15:56)
[2019-02-10] MEDS: Ondansetron 4 MG/2 ML Vial IV (15:56)
--- NOTE | 2019-02-10 16:15 | RAD_ITS ---
STUDY: X-RAY - LEFT ANKLE REASON FOR EXAM: Male, 64 years old. Fall. TECHNIQUE: 3 view(s) of the ankle. COMPARISON: None. FINDINGS: Normal visualized distal tibia and fibula. Normal medial and lateral malleoli. Normal tibiotalar articulation and ankle mortise. Normal visualized talus and calcaneus. The visualized subtalar, talonavicular, calcaneocuboid and tarsal articulations are normal. There is no demonstrated fracture. The soft tissue structures are unremarkable. RAD/Ankle min 3 Views IMPRESSION: Normal x-ray examination of the ankle. Electronically Signed: Neville Ellis MD at 16:59 EDT , Service support ,
--- NOTE | 2019-02-10 16:46 | ED.DCSUM_ITS ---
History of Present Illness Chief Complaint: Fall Informant: Patient Onset: Today Mechanism/Context: Blunt Injury - To me for, Fall - Patient lives on the third floor. He was cleaning gutters when he fell. He states he felt 20 possibly 30 feet. Quality of Pain: Dull, Aching Current Severity: 7/10 Maximum Severity: 9/10 Worsened by: Palpation and movement Relieved by: Nothing Length of loss of consciousness: No LOC Narrative: Patient states he was on a ladder attempting to clean gutters. Ladder slipped. He fell. He landed on his feet. He complains of left foot/ankle pain, left knee pain, left hip pain and lower back pain. He denies head trauma. Denies loss of conscious. Is not amnestic. He denies paresthesia or anesthesia or weakness in the upper extremities. He reported tingling in his leg. He is on no anticoagulant. He has not urinated since event. He arrived by private vehicle. Tetanus Immunization: 5-10 years Prior similar symptoms: No Recent Illness/Hospitalization: No - Past Medical History (1) No significant past medical history Status: Acute Past Medical History - Allergies and Home Meds Allergies/Adverse Reactions: Allergies hydrocodone [From [place]] Adverse Reaction (Verified 02/07/19 09:31) Upset Stomach tramadol Adverse Reaction (Verified 02/07/19 09:31) Upset Stomach Primary Care Physician: Dallin Alfonso MD [Primary Care Provider] - 1 Week if not improving Prior records reviewed: Yes Surgical History: noncontributory Lives: Alone Smoking Status: Former smoker Alcohol: None Drugs: None Review of Systems ROS: Unable to Obtain General: Denies: Chills, Fever, Sweats Eyes: Denies: Visual changes - bilaterally, Blurred Vision - bilaterally, Diplopia ENT: Denies: Bilateral ear pain, Rhinorrhea, Sore throat Cardiovascular: Denies: Chest pain, Palpitations Respiratory: Denies: Dyspnea, Cough, Dyspnea on exertion Gastrointestinal: Denies: Abdominal pain, Nausea, Vomiting, Diarrhea, Melena, Hematochezia Genitourinary: Denies: Dysuria, Hematuria, Frequency Musculoskeletal: Reports: Back pain, Extremity Pain. Denies: Myalgias, Arthralgias, Neck pain Skin: Denies: Rash, Abscess, Abrasions, Wounds Neurological: Reports: Parasthesia - Left lower extremity initially.. Denies: Headache, Weakness, Numbness Hematologic: Denies: Easy bruising, Easy bleeding Allergy: Denies: Uticaria Physical Exam Vital Signs/Narrative: Vital Signs Temp Pulse Resp BP Pulse Ox 02/10/19 14:27 97.8 F 54 L 18 138/76 H 99 Inital Vital Signs reviewed: Yes General: Well nourished, Well developed, - - Patient appears uncomfortable. Head: Normocephalic, Atraumatic, - - There was no midline tenderness. Eyes: Perrl, EOMI, Pale conjunctiva, Scleral icterus, - - There is no subconjunctival hemorrhage noted. ENT: TM's clear, No hemotympanum or drainage, No trauma. Negative for: Nasal trauma, Nasal septal hematoma Neck: Nontender, Full ROM. Negative for: Spinal Tenderness, Paraspinal Tenderness Cardiovascular: Regular rate, Regular rhythm, No murmurs, Normal S1, Normal S2 Respiratory: No distress, CTA bilaterally, Chest nontender Abdomen: Soft, Nontender, Nondistended, Normal bowel sounds, No masses, - - There specifically is no tenderness left upper quadrant.. Negative for: Hepatomegaly, Splenomegaly, Mass, Pulsatile mass Back: - - There is tenderness lower dorsal/upper lumbar spinous process. Extremeties: There is swelling and discoloration of the left foot. There is pain palpation over the tarsal bones. There is minimal discomfort over the lateral and medial malleolus. There is no instability of the mortise with drawer testing. Examination the knee reveals evidence of trauma. Patella is not ballotable. There is no effusion. Is no laxity with varus valgus stress testing. Tim's test was negative. Modified [place]'s test revealed no click. He had discomfort with movement. Examination left hip reveals pain the patient over the greater trochanteric process. There is no shortening of the leg. There is no pain palpation of the iliac wing left or right. There is no pain the patient of the pubis bone or pubic symphysis. There is minimal discomfort over the left ischial tuberosity. Skin: Normal color, No rash, Trauma - Discoloration medial dorsal left foot. Negative for: Cyanosis, Diaphoresis, Jaundice Neurological: Alert, Oriented x3, Cranial nerves II-XII grossly intact, Normal Strength, Normal Sensation, Normal DTR Psychological: Normal affect, Normal Mood - Coma Scale Eye Opening: Spontaneous Motor: Obeys Commands Verbal: Oriented Coma Scale Total: 15 Diagnostic/Tx/Re-eval Chest X-Ray - ED: Read by ED Physician 3-5 view x-rays cervical spine was obtained. There is degenerative changes noted. There is no fracture, subluxation or dislocation. There is no soft tissue swelling prevertebral space. Three-view x-ray of the hip reveals no fracture, subluxation or dislocation. There is no foreign body noted. Three-view x-ray of the left foot was obtained and reveals no fracture of the calcaneus or midfoot. There is evidence of prior fracture. There are degenerative changes noted. Three-view x-ray of the left ankle was obtained with no evidence of fracture or foreign body. There is no instability of the mortise. 2 view x-ray of the left knee was obtained with no evidence of fracture, effusion or dislocation. 2 view x-ray of the LS spine reveals no fracture, subluxation, spondylolisthesis or spondylosis. 2 view x-ray of the thoracic spine was obtained with no evidence of acute fracture or abnormality. - Medical Decision Making In light of patient's history concern for calcaneus/midfoot fracture. Appropriate x-rays were obtained were patient complained of tenderness. Blood work was obtained. Need UA to evaluate for renal injury. If there is evidence of blood will CT. He did not have flank pain and is not hemodynamically unstable and reason why CT was not ordered initially. ED Disposition - Plan for ED Patient: Disposition: Home or Assisted Living Diagnosis: Lumbar contusion, Contusion of left hip, initial encounter, Contusion of left knee, initial encounter, Contusion of left foot, initial encounter, Sprain of ligaments of cervical spine, initial encounter Instructions: ED Contusion Back, ED Contusion Lower Ext, ED Sprain Strain Neck Prescriptions: Oxycodone HCl/Acetaminophen [Percocet 5/325] 1 tablet PO Q6H PRN PRN 5 Days #20 tablet PRN Reason: Pain Referrals: Dallin Alfonso MD [Primary Care Provider] - 1 Week if not improving
[2019-02-10 17:17] LABS: Absolute Lymphocyte Count 1.66 X10^3/ul (0.83-4.51); Absolute Neutrophil Count 3.3 X10^3/uL (2.0-7.7); Basophil# 0.03 X10^3/uL; Basophil% 0.5 % (0-1); Eosinophil# 0.19 X10^3/uL; Eosinophils% 3.4 % (0-5); Hematocrit 40.4 % (40-54); Hemoglobin 13.2 g/dl (13.0-16.5); Lymphocyte # 1.66 X10^3/ul (4.0); Mean Corp Hgb Conc 32.7 g/gl (32-36); Mean Corpuscular Volume 88.8 fL (80-94); Mean Platelet Vol. 9.1 fl (6.2-12.0); Monocyte# 0.38 X10^3/uL; Monocyte% 6.9 % (0-10); Neutrophil # 3.27 X10^3/uL (2.7-7.7); Neutrophil % 59.2 % (47-70); POSITIVE COUNT NO; POSITIVE DIFFERENTIAL NO; POSITIVE MORPHOLOGY NO; Platelet Count 361 K/mm3 (150-450); RBC Distribution Width CV 12.9 % (11.6-14.6); RBC Distribution Width SD 40.8 fl (35.1-43.9); Red Blood Count 4.55 M/mm3 (4.6-6.2); White Blood Count 5.5 K/mm3 (4.4-11.0)
[2019-02-10 17:19] LABS: Prothrombin Time (Protime)PT. 12.9 SECONDS (11.7-14.9)
[2019-02-10 17:20] LABS: Partial Thromboplast Time 29.7 Seconds (24.1-36.2)
[2019-02-10 17:24] VITALS: BP 156/83; PULSE 50; RESP 16; O2SAT 100
[2019-02-10 17:25] LABS: Anion Gap 5 (5-15); BUN 9 mg/dL (7-18); Calcium,Total 8.7 mg/dL (8.5-10.1); Chloride 109 mmol/L (98-107); EST Glomerular Filtration Rate 80 mL/min (>60); Est Glom Filt Rate - Afr Amer 97 mL/min (>60); Estimated Creatinine Clearance 85.45 ml/min; Glucose 92 mg/dL (74-106); Potassium 3.8 mmol/L (3.5-5.1); Sodium Level 141 mmol/L (136-145)
[2019-02-10 18:53] VITALS: BP 153/89; PULSE 52; RESP 16; O2SAT 98
== END 2019-02-10 19:08 | disposition home or self-care (01) ==
PROVIDERS: Emergency Provider Emergency Medicine; Family Provider Student in an Organized Health Care Education/Training Program; PCP Student in an Organized Health Care Education/Training Program
DX: S30.0XXA Contusion of lower back and pelvis, initial encounter (principal); S70.02XA Contusion of left hip, initial encounter; S80.02XA Contusion of left knee, initial encounter; S90.32XA Contusion of left foot, initial encounter; S13.4XXA Sprain of ligaments of cervical spine, initial encounter; R20.2 Paresthesia of skin; W11.XXXA Fall on and from ladder, initial encounter; Y93.9 Activity, unspecified; Y92.9 Unspecified place or not applicable; Z87.891 Personal history of nicotine dependence
CPT/HCPCS: 72040; 72072; 72100; 73030; 73502; 73560; 73610; 73630; 80048; 85025; 85610; 85730; 96374; 96375; 99282; A4216; J2405

== ENCOUNTER 2019-03-19 13:55 | Emergency (ER) | payer MEDICAID, SELFPAY ==
[2019-03-19 13:55] VITALS: BP 155/80; PULSE 56; RESP 20; TEMP 37.1; O2SAT 99; BMI 22.9
--- NOTE | 2019-03-19 14:10 | RAD_ITS ---
STUDY: X-RAY - LEFT HAND REASON FOR EXAM: Male, 64 years old. Pain following injury. TECHNIQUE: 3 view(s) of the hand. COMPARISON: None. FINDINGS: There is joint space narrowing of the radiocarpal articulation consistent with degenerative arthrosis. Normal distal radioulnar joint. Normal visualized carpal bones. There is degenerative joint disease of the scaphotrapezium / trapezoid articulation. The remainder of the carpal articulations are normal. Normal carpometacarpal articulation of the thumb. Normal second through fifth carpometacarpal joints. Normal metacarpi. Normal metacarpophalangeal joint of the thumb. Normal interphalangeal joint of the thumb. Normal proximal and distal phalanges of the thumb. Normal metacarpophalangeal joints of the second through fifth fingers. Normal proximal and distal interphalangeal joints of the second through fifth fingers. Normal phalanges of the second through fifth fingers. Soft tissue swelling. RAD/Hand Min 3 Views IMPRESSION: Degenerative changes. Soft tissue swelling. Electronically Signed: Sorin Sorensen, at 14:35 EDT , Service support ,
--- NOTE | 2019-03-19 14:18 | RAD_ITS ---
STUDY: X-RAY - LEFT WRIST REASON FOR EXAM: Male, 64 years old. Pain following injury. TECHNIQUE: 3 view(s) of the wrist were obtained. COMPARISON: None. FINDINGS: Normal visualized distal radius and ulna. There is degenerative arthrosis of the radiocarpal articulation. Normal distal radioulnar articulation. Normal carpal bones. There is widening of the scapholunate articulation suggesting a sprain of the scapholunate interosseous ligament. Normal carpometacarpal articulation of the thumb. Normal second through fifth carpometacarpal articulations. Normal visualized metacarpal bones. Soft tissue swelling. RAD/Wrist min 3 Views IMPRESSION: Degenerative changes of the radiocarpal joint. End of the scapholunate articulation suggestive of a ligamentous injury. Electronically Signed: Sorin Sorensen, at 14:37 EDT , Service support ,
[2019-03-19] MEDS: oxyCODONE 5 MG Tablet PO (14:22)
--- NOTE | 2019-03-19 14:29 | ED.VISSUMM ---
- ER Visit Summary Date of Service: 03/19/19 Chief Complaint: Left hand injury History of Present Illness: The patient is a 64 M who presents with left hand injury that occurred today. Patient states his grandson accidentally closed his hand in the car door. Patient states the pain is constant. Patient states the pain is sharp and stabbing. Patient states the pain is worse with any movement. Patient denies any paresthesias or weakness. Patient states she just has pain when he moves his hand. Physical Examination: Vital signs are stable. Patient is afebrile. Patient is in no acute distress. Musculoskeletal exam reveals tenderness over the left hand and wrist area. There is no deformity. Range of motion was limited in all motions of the left wrist and left hand secondary to pain. Radial pulses are equal bilaterally. Sensation was intact to light touch in the radial, median, and ulnar areas. Capillary refill was less than 2 seconds in all digits. Test Results: X-rays of the left wrist and left hand were obtained. There are some degenerative changes but were unchanged compared to prior x-rays from 12/29/2018. There is no acute fracture noted. Emergency Department Course and Treatment: Patient was given a dose of oxycodone here. Patient was given a cock-up wrist splint. Patient was instructed to ice and elevate the left wrist. Patient was given a prescription for meloxicam to take as needed for pain. Patient was instructed to follow-up with his primary care physician in 5 to 7 days. Patient understood and was agreeable with the plan. All questions were answered. Disposition: Discharge home Impression: Left hand contusion This note was generated with [employer] dictation software. It may contain incorrect words, spelling, and punctuation that were not noted in review of the chart prior to signing ED Disposition - Plan for ED Patient: Disposition: Home or Assisted Living Diagnosis: Contusion of left hand, initial encounter Instructions: ED Contusion Upper Ext Prescriptions: Meloxicam 15 mg PO DAILY PRN PRN #10 tab PRN Reason: Pain Referrals: Dallin Alfonso MD [NON-STAFF] - 5-7 Days
== END 2019-03-19 15:08 | disposition home or self-care (01) ==
PROVIDERS: Emergency Provider Emergency Medicine; Family Provider Family Medicine; PCP Family Medicine
DX: S60.222A Contusion of left hand, initial encounter (principal); W23.0XXA Caught, crushed, jammed, or pinched between moving objects, initial encounter; Y93.9 Activity, unspecified; Y92.9 Unspecified place or not applicable; M19.90 Unspecified osteoarthritis, unspecified site; Z79.899 Other long term (current) drug therapy
CPT/HCPCS: 73110; 73130; 99283

== ENCOUNTER 2019-03-23 15:41 | Emergency (ER) | payer MEDICAID, SELFPAY ==
[2019-03-23 15:42] VITALS: BP 155/85; PULSE 57; RESP 16; TEMP 36.7; O2SAT 99; BMI 22.9
--- NOTE | 2019-03-23 16:54 | RAD_ITS ---
STUDY: X-RAY - LUMBAR SPINE REASON FOR EXAM: Male, 64 years old. Back pain after falling TECHNIQUE: 3 view(s) of the lumbar spine were obtained. COMPARISON: None FINDINGS: There is straightening of the normal lumbar lordosis. There is no substantial scoliosis. There is a normal alignment of the vertebrae. There is diffuse demineralization with multi-level endplate spondylosis. There is multi-level degenerative disc disease with multi-level disc space narrowing. There is no demonstrated fracture. There is atherosclerotic calcification of the abdominal aorta without a demonstrated aneurysm. RAD/Lumbar Spine 2 or 3 Views IMPRESSION: No compression fracture. Degenerative changes. Electronically Signed: Giles Allison MD at 17:28 EDT , Service support ,
--- NOTE | 2019-03-23 16:55 | RAD_ITS ---
STUDY: X-RAY - LEFT KNEE REASON FOR EXAM: Male, 64 years old. Bilateral knee pain after falling TECHNIQUE: 4 view(s) of the knee. COMPARISON: 02/10/2019 FINDINGS: Stable linear sclerosis of the femur. There is localized cortical thickening and heterogeneous trabecula the posterior mid femur, incompletely visualized. The lower margin of the cortical thickening seen on the prior study. Normal visualized proximal tibia and fibula. Normal proximal tibiofibular articulation. Normal medial femorotibial compartment. Normal lateral femorotibial compartment. Normal patellofemoral articulation. There is no demonstrated joint effusion. The soft tissue structures are unremarkable. RAD/Knee 4 or More Views IMPRESSION: 1. No fracture or malalignment. 2. Cortical expansion with trabecular heterogeneity of the distal femur (incompletely visualized). Could be sequela of prior fracture, however, a bone lesion is also possible. Dedicated left femur x-rays recommended for initial evaluation (nonemergent). Electronically Signed: Giles Allison MD at 17:27 EDT , Service support ,
--- NOTE | 2019-03-23 17:10 | RAD_ITS ---
STUDY: X-RAY - RIGHT KNEE REASON FOR EXAM: Male, 64 years old. Bilateral knee pain after falling TECHNIQUE: 4 view(s) of the knee. COMPARISON: None. FINDINGS: Normal visualized distal femur. Normal visualized proximal tibia and fibula. Normal proximal tibiofibular articulation. Normal medial femorotibial compartment. Normal lateral femorotibial compartment. Normal patellofemoral articulation. No significant joint effusion. The soft tissue structures are unremarkable. RAD/Knee 4 or More Views IMPRESSION: No fracture or malalignment. Electronically Signed: Giles Allison MD at 17:25 EDT , Service support ,
--- NOTE | 2019-03-23 17:11 | ED.DCSUM_ITS ---
- ER Visit Summary Date of Service: 03/23/19 Chief Complaint: Bilateral knee and back pain History of Present Illness: The patient is a 64 M who presents with pain in both knees and his back that began today after a fall. Patient states he was power washing some steps when he fell and landed on both knees. Patient states he also has pain in his low back after the fall. Patient states the pain is worse with ambulation. Patient does admit to some tingling around his knees bilaterally. Patient denies any head injury or loss of consciousness. Patient denies any weakness. Patient states that he is unable to bear weight on his left leg due to the pain. Patient states the pain in his left knee is much worse than his right. Physical Examination: Vital signs are stable. Patient is afebrile. Patient is in no acute distress. Musculoskeletal exam reveals tenderness over the upper lumbar spine. There is some mild ecchymosis noted. There is no bony crepitance or step-off. Range of motion was slightly limited all motions of the lumbar spine secondary to pain. There is also tenderness over the knees bilaterally. There are no effusions noted. There is no bony crepitance or step-off. There is no edema or ecchymosis. There is some tenderness over the left patella. Extensor mechanism is intact bilaterally. There is no laxity appreciated. Posterior tibial pulses are equal bilaterally. Range of motion was limited in complete extension of the left knee secondary to pain. There is good range of motion of the right knee. Test Results: X-rays of the bilateral knees and lumbar spine were obtained. There is no acute fracture. There is no loose body. There is no spondylolisthesis noted. These were interpreted by the radiologist. Emergency Department Course and Treatment: Patient was ordered a dose of Naprosyn. Patient refused this. Patient requested narcotic pain medication. Patient was told that narcotic pain medication is not indicated at this time. Patient left prior to completing his treatment. Patient signed out AGAINST MEDICAL ADVICE. Disposition: Discharged home Impression: 1. Bilateral knee contusions 2. Lumbar contusion This note was generated with [employer] software. It may contain incorrect words, spelling, and punctuation that were not noted in review of the chart prior to signing ED Disposition - Plan for ED Patient: Disposition: Against Medical Advice Diagnosis: Contusion of left knee, initial encounter, Contusion of right knee, initial encounter, Lumbar contusion Referrals: Pebbles Grullon, MARKETING ANALYST-C [Primary Care Provider] -
--- NOTE | 2019-03-23 17:25 | ED.RN ---
PT REFUSED NAPROXEN. STATES THAT THE ONLY THING THAT DOES NOT UPSET HIS STOMACH IS PERCOCET. MD AWARE. NOT NEW ORDERS GIVEN.
== END 2019-03-23 17:33 | disposition left against medical advice (07) ==
LOC: ED 16:03
PROVIDERS: Emergency Provider Emergency Medicine; Family Provider Family Medicine; PCP Family Medicine
DX: S80.02XA Contusion of left knee, initial encounter (principal); S80.01XA Contusion of right knee, initial encounter; S30.0XXA Contusion of lower back and pelvis, initial encounter; R20.2 Paresthesia of skin; R11.0 Nausea; W19.XXXA Unspecified fall, initial encounter; Y93.9 Activity, unspecified; Y92.9 Unspecified place or not applicable; Z53.21 Procedure and treatment not carried out due to patient leaving prior to being seen by health care provider; E78.00 Pure hypercholesterolemia, unspecified; Z79.899 Other long term (current) drug therapy
CPT/HCPCS: 72100; 73564; 99282

== ENCOUNTER 2021-12-04 12:37 | Emergency (ER) | payer MEDICAID, SELFPAY ==
[2021-12-04 12:38] VITALS: BP 143/96; PULSE 67; RESP 16; TEMP 36.1; O2SAT 99; BMI 23.1
--- NOTE | 2021-12-04 12:57 | CT_ITS ---
HISTORY: trauma. TECHNIQUE: Helically acquired images were obtained of the cervical spine. 2D reformatted images were reviewed. A radiation dose optimization technique was used for this scan. # of images incl. paperwork: 342. IV Contrast dosage and agent: None. COMPARISON: XR 02/10/2019. FINDINGS: VERTEBRAE: No acute fracture identified. VERTEBRAL ALIGNMENT: No significant anterior or posterior subluxation. Preservation of the cervical lordosis. DISCS: Degenerative endplate changes of C4-5 and C5-6. Posterior disc bulge osteophyte complexes with uncovertebral and facet arthropathy. C2-3: Minimal narrowing of thecal sac. C3-4: Mild central canal stenosis. C4-5: Moderate central canal stenosis and bilateral foraminal narrowing. C5-6: Moderate central canal stenosis. Left greater than right foraminal narrowing. C6-7: Mild central canal stenosis with bilateral foraminal narrowing. SOFT TISSUES: No prevertebral soft tissue swelling. CT/Spine Cervical without Contras IMPRESSION: No evidence of acute cervical spinal fracture or dislocation. Multilevel degenerative disc disease as described above. Individualized dose optimization techniques were used for this CT. at 1440 Reported and signed by: Agnieszka Martinez MD Electronically Signed: Agnieszka Martinez MD at 14:39 EST ,
--- NOTE | 2021-12-04 12:57 | CT_ITS ---
HISTORY: Trauma. TECHNIQUE: Helically acquired images were obtained of the chest, abdomen, and pelvis. A radiation dose optimization technique was used for this scan. IV Contrast: 100 mL Isovue-300 IV. Oral contrast: None. # of images incl. paperwork: [id number]. COMPARISON: XR 02/10/2019, CT 12/31/2018. FINDINGS: ----Chest: CENTRAL AIRWAYS: 3 mm nodule of the endoluminal anterior larynx. Mild dependent material in the right trachea. LUNGS: Mild emphysema. Calcified lingular nodule. Noncalcified 3 mm bilateral left lower lobe nodules. PLEURA: No pleural effusion or pneumothorax. AORTA/VESSELS: No aortic aneurysm or dissection flap. No large central filling defect in the pulmonary arteries. HEART/PERICARDIUM: Heart within normal limits in size, intact appearance. No significant pericardial effusion. MEDIASTINUM/PATTI: Small calcified left hilar lymph nodes. OSSEOUS STRUCTURES: Chronic minimal T6 and T9 compression fractures. ----Abdomen/Pelvis: BOWEL: Bowel including appendix nondilated. Colonic diverticulosis without pericolonic inflammation. PERITONEUM: No free air or free fluid. LIVER/BILIARY TRACT: Homogeneous liver. Gallbladder present. SPLEEN/PANCREAS: Intact. Calcified splenic granulomas. Chronic borderline pancreatic ductal dilatation and atrophy. KIDNEYS/ADRENAL GLANDS: Intact. Small bilateral renal cysts. Punctate right lower pole calculus. No hydronephrosis. AORTA: Mildly ectatic aorta without significant aneurysm or dissection flap. Atherosclerosis noted in the abdominal aorta and its major branches. PELVIS: Unremarkable pelvic organs. OSSEOUS STRUCTURES: Intact. Mild degenerative change. CT/CT Chest, Abd, Pel w/Contrast IMPRESSION: No evidence for acute intrathoracic trauma. Mild emphysema with 3 mm lower lobe pulmonary nodules. Recommend 12 month follow-up. 3 mm laryngeal nodule, nonspecific. Consider follow-up or direct visualization. Old mild T6 and T9 compression fractures. No evidence for acute intra-abdominal or pelvic trauma. Colonic diverticulosis without acute diverticulitis. Small bilateral renal cysts. Small nonobstructing right renal calculus. Individualized dose optimization techniques were used for this CT. at 1452 Reported and signed by: Agnieszka Martinez MD Electronically Signed: Agnieszka Martinez MD at 14:50 EST ,
--- NOTE | 2021-12-04 12:57 | CT_ITS ---
HISTORY: trauma. TECHNIQUE: Multiple axial images were obtained of the brain without intravenous contrast. A radiation dose optimization technique was used for this scan. # of images incl. paperwork: 242. COMPARISON: None. FINDINGS: BRAIN PARENCHYMA:Multiple small foci and zones of low attenuation in the cerebral white matter most compatible with chronic small vessel ischemic gliosis. INTRACRANIAL HEMORRHAGE: No acute intracranial hemorrhage. CSF SPACES/MASS EFFECT: Diffuse atrophy with compensatory ventricular enlargement. No midline shift or other significant mass effect. ORBITS: Unremarkable. CALVARIUM: Left posterior parietal craniotomy. PARANASAL SINUSES AND MASTOID AIR CELLS: Small mucous retention cysts in the paranasal sinuses. CT/Brain/Head without Contrast IMPRESSION: No acute intracranial process identified. Chronic small vessel ischemic gliosis. Individualized dose optimization techniques were used for this CT. at 1438 Reported and signed by: Agnieszka Martinez MD Electronically Signed: Agnieszka Martinez MD at 14:37 EST ,
--- NOTE | 2021-12-04 12:59 | EDS_ITS ---
HPI History of Present Illness Chief Complaint: Fall Informant: patient Onset/Context/Timing Onset: Today Current Severity: Moderate Maximum Severity: Severe Narrative Narrative: Patient presents after a fall. Patient was on a ladder trying to clean the snow off of the van when he fell from a ladder approximately 10 feet. He did strike his head. No loss of consciousness. Is complaining of pain throughout his back. He also has pain to the right shoulder and upper arm. Patient is not on anticoagulants. PFSH PFSH Medical History High cholesterol Medical History no medical history Home Medications oxycodone-acetaminophen [Percocet] 1 tab PO Q6H PRN 3 Days #10 tab 12/04/21 [Rx Last Taken Unknown] Allergy/AdvReac Type Severity Reaction Status Date / Time acetaminophen [From Vicodin] Allergy Itching Verified 08/12/21 15:20 hydrocodone [From [place]] AdvReac Upset Verified 08/12/21 15:20 Stomach ibuprofen AdvReac Upset Verified 12/04/21 12:38 Stomach tramadol AdvReac Upset Verified 08/12/21 15:20 Stomach Social History Smoking Status: Current every day smoker tobacco type: cigarettes ROS ROS ED Constitutional Constitutional ED: Denies chills or fever(s) Eyes Eyes: Denies change in vision ENT ENT ED: Denies sore throat Cardiovascular Cardiovascular: Denies chest pain Respiratory/Chest Respiratory/Chest: Denies cough or dyspnea Gastrointestinal Gastrointestinal: Denies abdominal pain, diarrhea, nausea or vomiting Genitourinary Genitourinary ED: Denies dysuria Musculoskeletal Musculoskeletal: Reports arthralgias, back pain and neck pain Integumentary Denies rash Neurologic Neurologic: Reports headache(s); Denies weakness Allergic/Immunologic Allergic/Immunologic ED: Denies urticaria EXAM Physical Exam Const Vital Signs: 12/04/21 12:38 12/04/21 12:52 Temperature 96.9 F L Temperature Source Temporal Pulse Rate 67 Respiratory Rate 16 Respiratory Effort Normal Non-Labored Respiratory Depth Normal Respiratory Pattern Normal Blood Pressure 143/96 H Blood Pressure Mean 111 Pulse Ox 99 Oxygen Delivery Method Room Air Positive well nourished and well developed General Appearance ED: well developed HEENT Reports moist mucous membranes Eyes PERRL and EOMs intact bilaterally Neck supple Chest Wall inspection of chest normal Resp normal respiratory effort and clear to auscultation bilaterally Cardio regular rate and regular rhythm GI non-tender Palpation: soft Back/Spine Back/Spine Narrative: Diffuse tenderness throughout the paraspinal muscles of the cervical, thoracic, and lumbar spine. No ecchymosis or abrasions. Extremity Extremity Narrative: Mild tenderness over the right humerus. No obvious deformity. Strong distal pulses. Neuro oriented x3 Sensorium / Orientation: alert Psych mental status grossly normal Skin no rashes or lesions noted MDM MDM MDM Narrative Medical decision making narrative: Patient given Dilaudid and Zofran for pain. Lab work obtained. CT scans of the head, C-spine, chest, abdomen, pelvis obtained. Right humerus x-ray ordered. Lab Data Attestation: I reviewed the patient's lab results. Labs: Laboratory Results - last 24 hr 12/04/21 12/04/21 13:05 13:05 WBC 6.7 RBC 4.71 Hgb 14.4 Hct 42.5 MCV 90.2 MCH 30.6 MCHC 33.9 RDW Std Deviation 44.6 H RDW Coeff of Jerry 13.4 Plt Count 477 H MPV 8.3 Immature Gran % (Auto) 0.400 Neut % (Auto) 67.7 Lymph % (Auto) 21.4 [place] % (Auto) 7.5 Eos % (Auto) 2.4 Baso % (Auto) 0.6 Absolute Neuts (auto) 4.5 Absolute Lymphs (auto) 1.43 Nucleated RBC % 0 Sodium 138 Potassium 3.9 Chloride 107 Carbon Dioxide 27.0 Anion Gap 4 L BUN 18 Creatinine 1.15 Estim Creat Clear Calc 67.93 Est GFR (MDRD) Af Amer 82 Est GFR (MDRD) Non-Af 68 BUN/Creatinine Ratio 15.7 Glucose 107 H Calcium 8.7 Radiography Diagnostic Testing: Clinical Impression(s) from Imaging Studies Brain CT 12/04/21 12:57 IMPRESSION: No acute intracranial process identified. Chronic small vessel ischemic gliosis. Individualized dose optimization techniques were used for this CT. at 1438 Reported and signed by: Agnieszka Martinez MD Electronically Signed: Agnieszka Martinez MD at 14:37 EST , Cervical Spine CT 12/04/21 12:57 IMPRESSION: No evidence of acute cervical spinal fracture or dislocation. Multilevel degenerative disc disease as described above. Individualized dose optimization techniques were used for this CT. at 1440 Reported and signed by: Agnieszka Martinez MD Electronically Signed: Agnieszka Martinez MD at 14:39 EST , Chest/Abdomen/Pelvis CT 12/04/21 12:57 IMPRESSION: No evidence for acute intrathoracic trauma. Mild emphysema with 3 mm lower lobe pulmonary nodules. Recommend 12 month follow-up. 3 mm laryngeal nodule, nonspecific. Consider follow-up or direct visualization. Old mild T6 and T9 compression fractures. No evidence for acute intra-abdominal or pelvic trauma. Colonic diverticulosis without acute diverticulitis. Small bilateral renal cysts. Small nonobstructing right renal calculus. Individualized dose optimization techniques were used for this CT. at 1452 Reported and signed by: Agnieszka Martinez MD Electronically Signed: Agnieszka Martinez MD at 14:50 EST , Humerus X-Ray 12/04/21 12:59 IMPRESSION: No acute fracture or dislocation identified in the right humerus. at 1430 Reported and signed by: Agnieszka Martinez MD Electronically Signed: Agnieszka Martinez MD at 14:29 EST , Treatment and Re-Evaluation Comments:: Lab work is unremarkable. Right humerus x-ray shows no acute findings per my interpretation. Radiology interpretation also reviewed. CT scans reveal no acute findings. He does have evidence of an old T6 and T9 compression fracture. On repeat evaluation patient resting more comfortably. Test results discussed with him. Will be given prescription for Percocet for pain control at home. Discharge Plan Triage Chief Complaint: Fall ED Provider: Zakiya Wong Dx/Rx/DC Orders Clinical Impression: Fall, Back contusion Instructions: ED Back Contusion Prescriptions: New oxycodone-acetaminophen [Percocet] 5-325 mg tablet 1 tab PO Q6H PRN (Reason: pain) 3 Days Qty: 10 RF: 0 Primary Care Provider: Pebbles Grullon NP Referrals: Pebbles Grullon NP, B[employer]ET BRAIDER-C [Primary Care Provider] - 1-2 Weeks Disposition Disposition: Home, Self Care
--- NOTE | 2021-12-04 12:59 | RAD_ITS ---
HISTORY: trauma. TECHNIQUE: XR Humerus Min 2 Views. # of images incl. paperwork: 4. COMPARISON: None. FINDINGS: BONES: No acute fracture identified. Generalized osteopenia. JOINTS: No dislocation. Degenerative changes. Chronic rotator cuff disease with a high riding humeral head. RAD/Humerus min 2 Views IMPRESSION: No acute fracture or dislocation identified in the right humerus. at 1430 Reported and signed by: Agnieszka Martinez MD Electronically Signed: Agnieszka Martinez MD at 14:29 EST ,
[2021-12-04] MEDS: HYDROmorphone 1 MG/ML Syringe 0.5 MG IV (13:23)
[2021-12-04] MEDS: Ondansetron 4 MG/2 ML Vial IV (13:23)
[2021-12-04 13:27] LABS: Absolute Lymphocyte Count 1.43 X10^3/uL (0.83-4.51); Absolute Neutrophil Count 4.5 X10^3/uL (2.0-7.7); Basophil# 0.04 X10^3/uL; Basophil% 0.6 % (0-1); Eosinophil# 0.16 X10^3/uL; Eosinophils% 2.4 % (0-5); Hematocrit 42.5 % (40-54); Hemoglobin 14.4 g/dL (13.0-16.5); Lymphocyte # 1.43 X10^3/ul (0.83-4.51); Lymphocyte % 21.4 % (19-41); Mean Corp Hgb Conc 33.9 g/dL (32-36); Mean Corpuscular Hgb 30.6 pg (27.0-32.0); Mean Corpuscular Volume 90.2 fL (80-94); Mean Platelet Vol. 8.3 fl (6.2-12.0); Monocyte% 7.5 % (0-10); NRBC Flagged by Analyzer 0 % (0-5); Neutrophil # 4.52 X10^3/uL (2.7-7.7); Neutrophil % 67.7 % (47-70); Platelet Count 477 K/mm3 (150-450); RBC Distribution Width CV 13.4 % (11.6-14.6); RBC Distribution Width SD 44.6 fl (35.1-43.9); Red Blood Count 4.71 M/mm3 (4.6-6.2); White Blood Count 6.7 K/mm3 (4.4-11.0)
[2021-12-04 13:33] LABS: Anion Gap 4 (5-15); BUN 18 mg/dL (7-18); BUN/Creat Ratio 15.7 RATIO (10-20); Calcium,Total 8.7 mg/dL (8.5-10.1); Chloride 107 mmol/L (98-107); Creatinine, Serum 1.15 mg/dL (0.70-1.30); EST Glomerular Filtration Rate 68 mL/min (>60); Est Glom Filt Rate - Afr Amer 82 mL/min (>60); Estimated Creatinine Clearance 67.93 ml/min; Glucose 107 mg/dL (74-106); Potassium 3.9 mmol/L (3.5-5.1); Sodium Level 138 mmol/L (136-145)
[2021-12-04 15:56] VITALS: RESP 16
== END 2021-12-04 15:56 | disposition home or self-care (01) ==
PROVIDERS: Emergency Provider Emergency Medicine; PCP Family Medicine; Visit Provider Emergency Medicine
DX: S20.229A Contusion of unspecified back wall of thorax, initial encounter (principal); F17.210 Nicotine dependence, cigarettes, uncomplicated; W11.XXXA Fall on and from ladder, initial encounter; Y93.9 Activity, unspecified; Y92.9 Unspecified place or not applicable
CPT/HCPCS: 70450; 71260; 72125; 73060; 74177; 80048; 85025; 96374; 96375; 99283; Q9967; A4216; J2405

== ENCOUNTER 2022-01-12 17:04 | Emergency (ER) | payer MEDICAID, SELFPAY ==
[2022-01-12 17:05] VITALS: BP 125/84; PULSE 70; RESP 16; TEMP 36; O2SAT 96; BMI 20.2
--- NOTE | 2022-01-12 17:56 | CT_ITS ---
STUDY: CT ABDOMEN AND PELVIS WITHOUT CONTRAST REASON FOR EXAM: Male, 66 years old. Kidney Stone RADIATION DOSAGE (If Supplied By Facility): CTDIvol = ( 6.55 ) mGy, DLP = ( 398.00 ) mGycm TECHNIQUE: Transaxial images were obtained from the dome of the diaphragm to the symphysis pubis without oral contrast, and without intravenous contrast. Sagittal and coronal images were reconstructed. Individualized dose optimization techniques were used for this CT. COMPARISON: None. FINDINGS: The visualized lung bases are unremarkable. The visualized portions of the heart are within normal limits. Normal liver. Normal gallbladder and extrahepatic biliary system. There are multiple benign calcified granulomata of the spleen. Normal pancreas. Normal bilateral adrenal glands. Normal right kidney. Normal left kidney. Normal visualized stomach. Normal small intestine. Normal colon. The appendix is visualized and appears normal. There is diffuse atherosclerotic calcification of the abdominal aorta, without a demonstrated aneurysm. Normal inferior vena cava. Normal retroperitoneum. Normal urinary bladder. Fluid collection left scrotum may represent a large hydrocele. Normal prostate. Normal abdominal wall. There are diffuse degenerative changes of the visualized lumbar spine. CT/Abdomen/Pelvis without Cont IMPRESSION: No renal stones or hydronephrosis. Fluid collection left scrotum may represent a large hydrocele. Electronically Signed: Navi Olguin MD at 19:14 EDT ,
--- NOTE | 2022-01-12 18:00 | ED.VIS.GI ---
HPI HPI - GI History of Present Illness Chief Complaint: Flank Pain Narrative Narrative: Patient presents with sudden onset of left-sided flank pain at noon yesterday, approximately 30 hours ago. He states all along his left side. It was sudden onset. Sometimes it sharp and stabbing. He took Tylenol without relief. He denies any dysuria or hematuria. No fevers or chills. No nausea or vomiting. He states he had a hard time sleeping last night because he could not get into a comfortable position. No true exacerbating or alleviating factors. PFSH PFS Medical History High cholesterol Home Medications oxycodone-acetaminophen [Percocet] 1 tab PO Q6H PRN 3 Days #10 tab 12/04/21 [Rx Last Taken Unknown] ciprofloxacin HCl [Cipro] 500 mg PO BID #14 tab 01/12/22 [Rx Last Taken Unknown] Allergy/AdvReac Type Severity Reaction Status Date / Time acetaminophen [From Vicodin] Allergy Itching Verified 08/12/21 15:20 hydrocodone [From [place]] AdvReac Upset Verified 08/12/21 15:20 Stomach ibuprofen AdvReac Upset Verified 12/04/21 12:38 Stomach tramadol AdvReac Upset Verified 08/12/21 15:20 Stomach Social History Smoking Status: Current every day smoker tobacco type: cigarettes ROS ROS ED ROS Narrative Constitutional: No fever, no chills. HEENT: No sore throat. No neck pain. No loss of vision. No rhinorrhea. Cardiovascular: No chest pain. No palpitations. No pedal edema. Respiratory: No cough, no shortness of breath. Abdominal: No abdominal pain. No nausea. No vomiting. Genitourinary: No dysuria. No hematuria. Left flank pain and upper back pain. Musculoskeletal: No myalgias. No arthralgias. Neurologic: No headaches. No dizziness. No lightheadedness. Skin: No rash. No change in color. Psychiatric: No depression. No anxiety. EXAM Physical Exam Narrative Exam Narrative: Afebrile. Vital signs noted. HEENT: Normocephalic. Atraumatic. PERRL, EOMI. Neck soft and supple. No point tenderness or step off. Cardiovascular: Regular rate and rhythm. No murmurs, rubs, or gallops appreciated. Respiratory: No tachypnea. Lungs clear to auscultation bilaterally. Gastrointestinal: Abdomen soft, nontender, with normoactive bowel sounds. No rebound or guarding. No CVA tenderness to percussion. Neurological: Awake. Alert. Nonfocal, nonlateralizing. Skin: No rash. Normal color. No pallor. Musculoskeletal: No pedal edema. Full range of motion extremities. Const Vital Signs: 01/12/22 17:05 01/12/22 19:27 Temperature 96.8 F L Temperature Source Temporal Pulse Rate 70 61 Respiratory Rate 16 18 Blood Pressure 125/84 H 147/87 H Blood Pressure Mean 97 107 Pulse Ox 96 98 Oxygen Delivery Method Room Air Room Air MDM MDM MDM Narrative Medical decision making narrative: Kidney stone protocol was instituted. I will add a CT of the flank. He gets an upset stomach with NSAIDs so I do feel that he would tolerate ketorolac 15 mg intravenously. CBC shows normal white count of 6.2, hemoglobin normal at 14.6, platelet count normal at 374. Potassium slightly low at 3.4, normal creatinine of 1.29 with a BUN of 15. Urinalysis shows 500 leukocyte esterase with 10-25 WBCs. He was given his first dose of ciprofloxacin here in the emergency department and a prescription written for the next 7 days. He required an intravenous injection of morphine for analgesia. CT of the abdomen and pelvis without contrast shows no evidence of ureterolithiasis or hydronephrosis. No renal stones. At this point in time, I am unsure as to the cause of his left flank pain. He does relate history that he has had problems with arthritis and lumbar radiculopathy. Regardless, I do feel he can be discharged safely home with follow-up. Return instructions to the emergency department were reviewed. He will continue his [id number] Tylenol for analgesia. Disposition is discharged home in stable condition. Lab Data Attestation: I reviewed the patient's lab results. Labs: Laboratory Results - last 24 hr 01/12/22 01/12/22 01/12/22 17:55 17:55 17:55 WBC 6.2 RBC 4.79 Hgb 14.6 Hct 42.6 MCV 88.9 MCH 30.5 MCHC 34.3 RDW Std Deviation 42.7 RDW Coeff of Jerry 13.1 Plt Count 374 MPV 8.8 Immature Gran % (Auto) 0.200 Neut % (Auto) 62.7 Lymph % (Auto) 23.5 [place] % (Auto) 10.7 H Eos % (Auto) 1.9 Baso % (Auto) 1.0 Absolute Neuts (auto) 3.9 Absolute Lymphs (auto) 1.45 Nucleated RBC % 0 Sodium 138 Potassium 3.4 L Chloride 104 Carbon Dioxide 30.0 Anion Gap 4 L BUN 15 Creatinine 1.29 Estim Creat Clear Calc 56.41 Est GFR (MDRD) Af Amer 72 Est GFR (MDRD) Non-Af 59 L BUN/Creatinine Ratio 11.6 Glucose 104 Calcium 9.4 Urine Color Yellow Urine Clarity Sl Cldy Urine pH 7.0 Ur Specific [place] 1.010 Urine Protein 15 H Urine Glucose (UA) Normal Urine Ketones Negative Urine Occult Blood 50 H Urine Nitrite Negative Urine Bilirubin Negative Urine Urobilinogen 1 H Ur Leukocyte Esterase 500 H Urine RBC 0-5 SEEN Urine WBC 10-25 SEEN Ur Squamous Epith Cells 0-5 SEEN Amorphous Sediment 1+ URATE Urine Bacteria 0 SEEN Urine Mucus 0 SEEN Radiography Diagnostic Testing: Clinical Impression(s) from Imaging Studies Abdomen/Pelvis CT 01/12/22 17:56 IMPRESSION: No renal stones or hydronephrosis. Fluid collection left scrotum may represent a large hydrocele. Electronically Signed: Navi Olguin MD at 19:14 EDT Reading Location ID and State: [facility] / [place] Tel , Service support , Discharge Plan Triage Chief Complaint: Flank Pain ED Provider: Micheal Sun Dx/Rx/DC Orders Clinical Impression: Acute left flank pain, Acute UTI Instructions: ED Flank Pain, Uncertain Cause, ED Bladder Infection, Male (Adult) Prescriptions: New ciprofloxacin HCl [Cipro] 500 mg tablet 500 mg PO BID Qty: 14 RF: 0 No Action oxycodone-acetaminophen [Percocet] 5-325 mg tablet 1 tab PO Q6H PRN (Reason: pain) 3 Days Qty: 10 RF: 0 Primary Care Provider: Jefferson Gregorio Referrals: Jefferson Gregorio DO [Primary Care Provider] - 1 Day Disposition Disposition: Home, Self Care
[2022-01-12 18:04] LABS: Bacteria 0 SEEN /hpf (None Seen); Mucous, Urine 0 SEEN /hpf (<or=2+)
[2022-01-12] MEDS: Ketorolac 15 MG/ML Vial IV (18:04)
[2022-01-12 18:05] LABS: Absolute Lymphocyte Count 1.45 X10^3/uL (0.83-4.51); Absolute Neutrophil Count 3.9 X10^3/uL (2.0-7.7); Basophil# 0.06 X10^3/uL; Eosinophil# 0.12 X10^3/uL; Eosinophils% 1.9 % (0-5); Hematocrit 42.6 % (40-54); Hemoglobin 14.6 g/dL (13.0-16.5); Lymphocyte # 1.45 X10^3/ul (0.83-4.51); Lymphocyte % 23.5 % (19-41); Mean Corp Hgb Conc 34.3 g/dL (32-36); Mean Corpuscular Hgb 30.5 pg (27.0-32.0); Mean Corpuscular Volume 88.9 fL (80-94); Mean Platelet Vol. 8.8 fl (6.2-12.0); Monocyte# 0.66 X10^3/uL; Monocyte% 10.7 % (0-10); NRBC Flagged by Analyzer 0 % (0-5); Neutrophil # 3.88 X10^3/uL (2.7-7.7); Neutrophil % 62.7 % (47-70); Platelet Count 374 K/mm3 (150-450); RBC Distribution Width CV 13.1 % (11.6-14.6); RBC Distribution Width SD 42.7 fl (35.1-43.9); Red Blood Count 4.79 M/mm3 (4.6-6.2); White Blood Count 6.2 K/mm3 (4.4-11.0)
[2022-01-12 18:06] LABS: Color, Urine Yellow (Yellow); Glucose, Dipstick Normal (Normal); Ketone-Dipstick Negative (Negative); Leukocyte Esterase-Dipstick 500 /ul (Negative); Nitrite-Dipstick Negative (Negative); Occult Blood-Urine 50 /ul (Negative); Protein-Dipstick 15 mg/dl (Negative); Urine Bilirubin Dipstick Negative (Negative); Urine Urobilinogen 1 mg/dl (Normal)
[2022-01-12 18:21] LABS: Anion Gap 4 (5-15); BUN 15 mg/dL (7-18); BUN/Creat Ratio 11.6 RATIO (10-20); Calcium,Total 9.4 mg/dL (8.5-10.1); Chloride 104 mmol/L (98-107); Creatinine, Serum 1.29 mg/dL (0.70-1.30); EST Glomerular Filtration Rate 59 mL/min (>60); Est Glom Filt Rate - Afr Amer 72 mL/min (>60); Estimated Creatinine Clearance 56.41 ml/min; Glucose 104 mg/dL (74-106); Potassium 3.4 mmol/L (3.5-5.1); Sodium Level 138 mmol/L (136-145)
[2022-01-12 18:22] LABS: Amorphous Sediment 1+ URATE; Red Blood Cells-Urine 0-5 SEEN /hpf (0-5); Squamous Epithelial Cells - UA 0-5 SEEN /hpf (0-5); White Blood Cells 10-25 SEEN /hpf (0-5)
[2022-01-12 18:23] LABS: Urine Clarity Sl Cldy (Clear)
[2022-01-12 19:27] VITALS: BP 147/87; PULSE 61; RESP 18; O2SAT 98
[2022-01-12] MEDS: Morphine 4 MG/ML Syringe IV (19:28)
[2022-01-12] MEDS: Ciprofloxacin 500 MG Tablet PO (19:33)
[2022-01-12 19:50] VITALS: BP 159/90; PULSE 54; RESP 18; O2SAT 97
== END 2022-01-12 19:50 | disposition home or self-care (01) ==
PROVIDERS: Emergency Provider Emergency Medicine; PCP Student in an Organized Health Care Education/Training Program; Visit Provider Emergency Medicine
DX: N39.0 Urinary tract infection, site not specified (principal); F17.210 Nicotine dependence, cigarettes, uncomplicated
CPT/HCPCS: 74176; 80048; 81001; 85025; 87086; 96374; 96375; 99283; A4216

== ENCOUNTER 2022-02-27 16:26 | Emergency (ER) | payer MEDICAID, SELFPAY ==
[2022-02-27 16:27] VITALS: BP 142/86; PULSE 76; RESP 15; TEMP 35.7; O2SAT 98; BMI 22.3
--- NOTE | 2022-02-27 18:13 | ED.VIS.BACK ---
HPI History of Present Illness Chief Complaint: Back Informant: patient Onset/Context/Timing Onset: Today Context: Sudden Onset Injury: fall Timing: Continuous Quality: Sharp and Dull Location: Lumbar, Buttock and Left Leg Worsened by: improves with Movement and - (Sitting, standing) Relieved by: - (Laying on right side) Associated Symptoms Associated Symptoms: Numbness, Tingling and Radiation to Left Leg; Negative for Radiation to Right Leg, Fever, Abdominal Pain, Dysuria, Unable to Ambulate, Unable to Transfer, Urinary Retention, Urinary Incontinence, Constipation and Fecal Incontinence Narrative Narrative: Patient presents with left lower lumbar back pain that began today. Patient states he was on a riding mower mowing his aunts yard who recently when it started to flip. Patient states he was able to jump off of the mower. Patient states when he landed he felt pain in his back and posterior left hip. Patient states he has a history of sciatica on the left side. Patient states the pain radiates down his left leg. Patient admits to some numbness and tingling in his toes on his left foot. Patient denies any weakness. Patient denies any bowel or bladder changes. Patient denies any saddle anesthesia. Patient states his pain is worse with sitting and standing. Patient states it is better whenever he lays on his right side. [facility] Medical History (Updated 02/27/22 @ 19:[address] Nicolás Rojas DO) Epilepsy High cholesterol Sciatica Home Medications oxycodone-acetaminophen 1 tab PO Q6H PRN PRN 3 Days #12 tablet 02/27/22 [Rx Last Taken Unknown] Allergy/AdvReac Type Severity Reaction Status Date / Time acetaminophen [From Vicodin] Allergy Itching Verified 08/12/21 15:20 hydrocodone [From [place]] AdvReac Upset Verified 08/12/21 15:20 Stomach ibuprofen AdvReac Upset Verified 12/04/21 12:38 Stomach tramadol AdvReac Upset Verified 08/12/21 15:20 Stomach Surgical History S/P clamping of cerebral aneurysm Social History Smoking Status: Current every day smoker tobacco type: cigarettes ROS ROS ED Constitutional Constitutional ED: Denies chills or fever(s) Eyes Eyes: Denies blurry vision or change in vision ENT ENT ED: Denies rhinorrhea or sore throat Cardiovascular Cardiovascular: Denies chest pain or palpitations Respiratory/Chest Respiratory/Chest: Denies cough or dyspnea Gastrointestinal Gastrointestinal: Denies nausea or vomiting Genitourinary Genitourinary ED: Denies dysuria or hematuria Musculoskeletal Musculoskeletal: Reports back pain; Denies neck pain Integumentary Denies abscess or rash Neurologic Neurologic: Denies headache(s) or weakness Allergic/Immunologic Allergic/Immunologic ED: Denies mouth swelling or urticaria EXAM Physical Exam Const Vital Signs: 02/27/22 16:27 Temperature 96.2 F L Temperature Source Temporal Pulse Rate 76 Respiratory Rate 15 Blood Pressure 142/86 H Blood Pressure Mean 104 Pulse Ox 98 Oxygen Delivery Method Room Air Positive well nourished and well developed General Appearance ED: well developed and NAD HEENT Reports moist mucous membranes Neck supple and no JVD Back/Spine Back/Spine Narrative: There is tenderness over the lumbar spine and left lumbar paraspinal muscles. There is tenderness over the left sciatic notch. There is no edema or ecchymosis. There is no bony crepitance or step-off. Range of motion was limited in all motions of the lumbar spine secondary to pain. Strength is 5/5 bilaterally in the lower extremities. There are no sensory deficits noted. Deep tendon reflexes are 2/4 bilaterally in the lower extremities. Lumbar Spine / Lower Back: ROM limited Extremity normal to inspection General Extremety ED: Negative for edema or tenderness General Extremity: Negative for edema Neuro Deep Tendon Reflexes: Rt Patellar (L4): 2+, Lt Patellar (L4): 2+, Rt Ankle (S1): 2+ and Lt Ankle (S1): 2+ Deep Tendon Reflexes Back: Rt Patellar (L4): 2+, Lt Patellar (L4): 2+, Rt Ankle (S1): 2+ and Lt Ankle (S1): 2+ Psych mental status grossly normal MDM MDM MDM Narrative Medical decision making narrative: X-rays of the lumbar spine were obtained. There are 3 views. On my interpretation, there is no acute fracture or spondylolisthesis. There is some degenerative changes noted at L4-L5 and L5-S1. Radiologist also interpreted the x-rays and agrees. Patient was given a dose of morphine here. Patient was instructed to use ice to the area. Patient was instructed to do gentle stretching exercises. Patient was given a prescription for a short course of Percocet for pain. Patient was instructed to return if worse in any way. Patient understood and was agreeable with the plan. All questions were answered. Radiography Diagnostic Testing: Clinical Impression(s) from Imaging Studies Lumbar Spine X-Ray 02/27/22 18:40 IMPRESSION: 1. No evidence of lumbar spinal fracture or spondylolisthesis. Moderate spondylosis and facet arthrosis at L4-5 and L5-S1. Electronically Signed: Yao Shah MD at 19:21 EDT , Discharge Plan Triage Chief Complaint: Back ED Provider: Nicolás Rojas Dx/Rx/DC Orders Clinical Impression: Sciatica of left side, Lumbosacral strain Instructions: ED Back Pain (Acute or Chronic), ED Sciatica Prescriptions: New oxycodone-acetaminophen [oxycodone-acetaminophen] 1 TABLET tablet 1 tab PO Q6H PRN PRN (Reason: Pain) 3 Days Qty: 12 RF: 0 Primary Care Provider: Jefferson Gregorio Referrals: Jefferson Gregorio DO [Primary Care Provider] - 3-5 Days Disposition Disposition: Home, Self Care
[2022-02-27] MEDS: Morphine 4 MG/ML Syringe IM (18:28)
--- NOTE | 2022-02-27 18:40 | RAD_ITS ---
INDICATION: Injury/Pain EXAMINATION/TECHNIQUE: X-RAY - XR Spine Lumbar 2 or 3 Views COMPARISON: None. FINDINGS: VERTEBRAE: Preserved vertebral body height. No fracture. No spondylolisthesis. Preservation of the normal lumbar lordosis. Facet hypertrophic changes are present from L4 to S1. DISCS: There is disc space narrowing at L4-5 and L5-S1 with endplate sclerosis and marginal osteophyte formation without evidence of fracture or destructive bony process. INCLUDED ABDOMEN: Included bowel gas pattern is non-obstructive. Aortic calcifications are present throughout the abdominal aorta. RAD/Lumbar Spine 2 or 3 Views IMPRESSION: 1. No evidence of lumbar spinal fracture or spondylolisthesis. Moderate spondylosis and facet arthrosis at L4-5 and L5-S1. Electronically Signed: Yao Shah MD at 19:21 EDT ,
[2022-02-27 20:03] VITALS: BP 130/78; PULSE 80; RESP 18; O2SAT 96
== END 2022-02-27 20:05 | disposition home or self-care (01) ==
PROVIDERS: Emergency Provider Emergency Medicine; PCP Student in an Organized Health Care Education/Training Program; Visit Provider Emergency Medicine
DX: S39.012A Strain of muscle, fascia and tendon of lower back, initial encounter (principal); W19.XXXA Unspecified fall, initial encounter; F17.210 Nicotine dependence, cigarettes, uncomplicated; M54.32 Sciatica, left side
CPT/HCPCS: 72100; 96372; 99282

== ENCOUNTER 2022-03-07 12:50 | Emergency (ER) | payer MEDICAID, SELFPAY ==
[2022-03-07 12:50] VITALS: BP 135/86; PULSE 97; RESP 18; TEMP 36.2; O2SAT 100; BMI 20.2
--- NOTE | 2022-03-07 13:45 | RAD_ITS ---
STUDY: X-RAY - LUMBAR SPINE REASON FOR EXAM: Male, 67 years old. Back pain following a fall. TECHNIQUE: 3 view(s) of the lumbar spine were obtained. COMPARISON: Comparison is made with prior study dated 02/27/2022. FINDINGS: There is straightening of the normal lumbar lordosis. There is no substantial scoliosis. There is a normal alignment of the vertebrae. There is multilevel endplate spondylosis of the lumbar vertebrae. There is multi-level degenerative disc disease with multi-level disc space narrowing. Facet joint osteoarthritis. The soft tissue structures are unremarkable. RAD/Lumbar Spine 2 or 3 Views IMPRESSION: Degenerative changes of the spine, as detailed above. Electronically Signed: Sorin Sorensen MD at 14:26 EDT ,
--- NOTE | 2022-03-07 13:46 | EDS_ITS ---
HPI History of Present Illness Chief Complaint: Back Informant: patient Onset/Context/Timing Onset: Weeks Context: Gradual Onset Narrative Narrative: Patient presents with low back pain rating down his left leg. He has a history of sciatica and was seen here recently for similar. Patient states that he is trying to clear out his aunts house so it can be sold. He was trying to move a freezer today when he lost his balance. He fell backwards on his buttocks and has increased pain in his low back and down his left leg. On review of records patient had received Percocet here on February 27 a prescription from his primary care physician on the . He was supposed to have pills through tomorrow. He states that he took the last 1 yesterday afternoon because his doctor told him he could take 2 at a time if needed. He denies problems with bowel or bladder control. [facility] Medical History Epilepsy High cholesterol Sciatica Home Medications oxycodone-acetaminophen 1 tab PO Q6H PRN PRN 3 Days #12 tablet 02/27/22 [Rx Last Taken Unknown] cyclobenzaprine 10 mg PO BID PRN #10 tab 03/07/22 [Rx Last Taken Unknown] prednisone 40 mg PO DAILY #10 tab 03/07/22 [Rx Last Taken Unknown] Allergy/AdvReac Type Severity Reaction Status Date / Time acetaminophen [From Vicodin] Allergy Itching Verified 03/07/22 12:52 hydrocodone [From [place]] AdvReac Upset Verified 03/07/22 12:52 Stomach ibuprofen AdvReac Upset Verified 03/07/22 12:52 Stomach tramadol AdvReac Upset Verified 03/07/22 12:52 Stomach Surgical History S/P clamping of cerebral aneurysm Social History Smoking Status: Former smoker ROS ROS ED Constitutional Constitutional ED: Denies chills or fever(s) Eyes Eyes: Denies change in vision ENT ENT ED: Denies sore throat Cardiovascular Cardiovascular: Denies chest pain Respiratory/Chest Respiratory/Chest: Denies cough or dyspnea Gastrointestinal Gastrointestinal: Denies abdominal pain, nausea or vomiting Genitourinary Genitourinary ED: Denies dysuria Musculoskeletal Musculoskeletal: Reports arthralgias and back pain Integumentary Denies rash Neurologic Neurologic: Denies headache(s), paresthesias or weakness Allergic/Immunologic Allergic/Immunologic ED: Denies urticaria EXAM Physical Exam Const Vital Signs: 03/07/22 12:50 Temperature 97.1 F L Temperature Source Temporal Pulse Rate 97 Respiratory Rate 18 Blood Pressure 135/86 H Blood Pressure Mean 102 Pulse Ox 100 Oxygen Delivery Method Room Air Positive well nourished and well developed General Appearance ED: well developed HEENT Reports moist mucous membranes Eyes PERRL and EOMs intact bilaterally Neck supple Resp normal respiratory effort and clear to auscultation bilaterally Cardio regular rate and regular rhythm GI soft to palpation and non-tender Back/Spine normal to inspection Back/Spine Narrative: No midline thoracic or lumbar tenderness. Reproducible tenderness in the left lower lumbar paraspinal muscles and over the sciatic notch. Extremity normal to inspection Neuro oriented x3 and no sensory deficits noted Sensorium / Orientation: alert Psych mental status grossly normal Skin no rashes or lesions noted MDM MDM MDM Narrative Medical decision making narrative: Patient given oxycodone, Flexeril, predn isone. Lumbar spine x-rays obtained. Radiography Diagnostic Testing: Clinical Impression(s) from Imaging Studies Lumbar Spine X-Ray 03/07/22 13:45 IMPRESSION: Degenerative changes of the spine, as detailed above. Electronically Signed: Sorin Sorensen MD at 14:26 EDT Reading Location ID and State: [address] [place] [address] , Service support , Treatment and Re-Evaluation Narrative: Shortly after seeing the patient I spoke with Dr. Gregorio, his primary care physician. He states the patient was to start pain management. He also stated that he did not tell the patient to take extra medication as far as he is concerned should have had meds through tomorrow. I advised him that I would be happy to write him for nonnarcotic pain medication. X-rays per my interpretation reveal no acute findings. Patient be written for prednisone and Flexeril. He is to follow-up with pain management. Discharge Plan Triage Chief Complaint: Back ED Provider: Wong,Zakiya Dx/Rx/DC Orders Clinical Impression: Sciatica Instructions: ED Sciatica Prescriptions: New cyclobenzaprine 10 mg tablet 10 mg PO BID PRN (Reason: muscle spasm) Qty: 10 RF: 0 prednisone 20 mg tablet 40 mg PO DAILY Qty: 10 RF: 0 No Action oxycodone-acetaminophen [oxycodone-acetaminophen] 1 TABLET tablet 1 tab PO Q6H PRN PRN (Reason: Pain) 3 Days Qty: 12 RF: 0 Primary Care Provider: Jefferson Gregorio Referrals: Jefferson Gregorio DO [Primary Care Provider] - Activity Restrictions/Additional Instructions: As discussed, please follow-up with your pain management physician. Disposition Disposition: Home, Self Care
[2022-03-07] MEDS: cycloBENZAPRine HCl 10 MG Tablet PO (13:55)
[2022-03-07] MEDS: oxyCODONE 5 MG Tablet PO (13:55)
[2022-03-07] MEDS: predniSONE 20 MG Tablet 60 MG PO (13:55)
[2022-03-07 15:31] VITALS: BP 139/86; PULSE 88; RESP 16
== END 2022-03-07 15:37 | disposition home or self-care (01) ==
PROVIDERS: Emergency Provider Emergency Medicine; PCP Student in an Organized Health Care Education/Training Program; Visit Provider Emergency Medicine
DX: M54.42 Lumbago with sciatica, left side (principal); Z87.891 Personal history of nicotine dependence
CPT/HCPCS: 72100; 99283

== ENCOUNTER 2022-03-09 10:14 | Emergency (ER) | payer MEDICAID, SELFPAY ==
[2022-03-09 10:15] VITALS: BP 120/79; PULSE 69; RESP 15; TEMP 36.3; O2SAT 99; BMI 20.2
--- NOTE | 2022-03-09 10:42 | EDS_ITS ---
HPI History of Present Illness Chief Complaint: Back Informant: patient Onset/Context/Timing Onset: Weeks (1) Context: Gradual Onset Timing: Continuous Quality: Sharp Location: Thoracic and Lumbar Worsened by: improves with - (Deep breathing) Relieved by: Nothing Associated Symptoms Associated Symptoms: Numbness, Tingling and Radiation to Left Leg; Negative for Radiation to Right Leg, Fever, Abdominal Pain, Dysuria, Unable to Ambulate, Unable to Transfer, Urinary Retention, Urinary Incontinence, Constipation and Fecal Incontinence Narrative Narrative: Patient presents with back and left flank pain there is being getting worse over the last week. Patient has been seen here for this and was diagnosed with sciatica. Patient states that his primary care physician prescribed him prednisone yesterday. Patient states he has not picked it up from the pharmacy but has not started taking it yet. Patient states he is concerned about the possible side effects. Patient states that his doctor also told him that he could possibly have lung cancer and he should be seen to rule that out. Patient states his doctor also noted that he had a small amount of hematuria and that it could possibly be from a kidney stone. Patient describes his pain as sharp. Patient states it is over the lower thoracic and lumbar area. Patient states it is worse with deep breathing. Patient states nothing seems to help with it. Patient states his pain does radiate into his left leg. Patient also admits to some tingling in his toes. [facility] Medical History Epilepsy High cholesterol Sciatica Home Medications oxycodone-acetaminophen 1 tab PO Q6H PRN PRN 3 Days #12 tablet 02/27/22 [Rx Last Taken Unknown] cyclobenzaprine 10 mg PO BID PRN #10 tab 03/07/22 [Rx Last Taken Unknown] prednisone 40 mg PO DAILY #10 tab 03/07/22 [Rx Last Taken Unknown] Allergy/AdvReac Type Severity Reaction Status Date / Time acetaminophen [From Vicodin] Allergy Itching Verified 03/07/22 12:52 hydrocodone [From [place]] AdvReac Upset Verified 03/07/22 12:52 Stomach ibuprofen AdvReac Upset Verified 03/07/22 12:52 Stomach tramadol AdvReac Upset Verified 03/07/22 12:52 Stomach Surgical History S/P clamping of cerebral aneurysm Social History Smoking Status: Current every day smoker tobacco type: cigarettes ROS ROS ED Constitutional Constitutional ED: Denies chills or fever(s) Eyes Eyes: Denies blurry vision or change in vision ENT ENT ED: Denies rhinorrhea or sore throat Cardiovascular Cardiovascular: Denies chest pain or palpitations Respiratory/Chest Respiratory/Chest: Reports cough; Denies dyspnea Gastrointestinal Gastrointestinal: Denies nausea or vomiting Genitourinary Genitourinary ED: Denies dysuria or hematuria Musculoskeletal Musculoskeletal: Reports back pain; Denies neck pain Integumentary Denies abscess or rash Neurologic Neurologic: Denies headache(s) or weakness Allergic/Immunologic Allergic/Immunologic ED: Denies mouth swelling or urticaria EXAM Physical Exam Const Vital Signs: 03/09/22 10:15 Temperature 97.4 F L Temperature Source Temporal Pulse Rate 69 Respiratory Rate 15 Blood Pressure 120/79 Blood Pressure Mean 92 Pulse Ox 99 Oxygen Delivery Method Room Air Positive well nourished and well developed General Appearance ED: well developed and NAD HEENT Reports moist mucous membranes Neck supple and no JVD Resp normal respiratory effort and clear to auscultation bilaterally Cardio regular rate and regular rhythm GI normal to inspection, nondistended, normoactive bowel sounds and soft to palpation Palpation: tender LUQ Back/Spine Back/Spine Narrative: There is tenderness over the left lower thoracic and lumbar paraspinal muscles. There is no midline tenderness. There is no bony crepitance or step-off. General Back: CVA tenderness left Lumbar Spine / Lower Back: ROM limited Extremity normal to inspection General Extremety ED: Negative for edema or tenderness General Extremity: Negative for edema Neuro oriented x3 and no sensory deficits noted Sensorium / Orientation: alert Motor Exam: strength 5/5 throughout Psych mental status grossly normal MDM MDM MDM Narrative Medical decision making narrative: CT scan of the chest abdomen and pelvis was obtained. There is no acute abnormality noted. There is no evidence of lung cancer. There is no ureteral calculus or hydronephrosis. This was interpreted by the radiologist and reviewed by myself. Patient was advised of his findings. Patient was given a dose of oxycodone here. Patient was instructed to follow- up with his primary care physician in 3 to 5 days for further evaluation and ma nagement of his chronic back pain. Patient understood and was agreeable with the plan. All questions were answered. Radiography Diagnostic Testing: Clinical Impression(s) from Imaging Studies Chest/Abdomen/Pelvis CT 03/09/22 10:49 IMPRESSION: Stable examination. No acute abnormality is seen. Electronically Signed: Sorin Sorensen MD at 12:04 EDT , Discharge Plan Triage Chief Complaint: Back ED Provider: Nicolás Rojas Dx/Rx/DC Orders Clinical Impression: Left flank pain, Sciatica Instructions: ED Flank Pain, Uncertain Cause Prescriptions: No Action oxycodone-acetaminophen [oxycodone-acetaminophen] 1 TABLET tablet 1 tab PO Q6H PRN PRN (Reason: Pain) 3 Days Qty: 12 RF: 0 cyclobenzaprine 10 mg tablet 10 mg PO BID PRN (Reason: muscle spasm) Qty: 10 RF: 0 prednisone 20 mg tablet 40 mg PO DAILY Qty: 10 RF: 0 Primary Care Provider: Jefferson Gregorio Referrals: Jefferson Gregorio DO [Primary Care Provider] - 3-5 Days Disposition Disposition: Home, Self Care
--- NOTE | 2022-03-09 10:49 | CT_ITS ---
STUDY: CT CHEST, ABDOMEN T PELVIS WITHOUT CONTRAST REASON FOR EXAM: Male, 67 years old. Left flank pain RADIATION DOSAGE (If Supplied By Facility): CTDIvol = ( 8.50 ) mGy, DLP = ( 813.26 ) mGycm TECHNIQUE: Transaxial imaging was performed without the administration of intravenous contrast material. Multiplanar coronal and sagittal images were reformatted. Individualized dose optimization techniques were used for this CT. COMPARISON: Comparison is made with prior CT scan the thorax dated 12/04/2021. FINDINGS: CHEST Hyperinflation. Emphysematous changes. No focal consolidation is seen. Stable 3 mm soft tissue nodule in the anterior aspect of the trachea. There is no demonstrated pleural abnormality. There are calcifications of the coronary arteries. There are multiple small lymph nodes within the mediastinum, which are normal in size and morphology most compatible with reactive lymph hyperplasia. Calcified left hilar lymph nodes. Normal unenhanced pulmonary arteries. There is atherosclerotic calcification of the aortic arch with tortuosity and elongation of the aortic arch and descending thoracic aorta. There are multi-level degenerative changes of the thoracic spine. Stable minimal loss of height of the superior endplate of the T6 and T9 dorsal vertebrae. Multiple calcified splenic granulomata ABDOMEN Normal liver. Normal gallbladder and extrahepatic biliary system. There are multiple benign calcified granulomata of the spleen. Normal pancreas. Normal bilateral adrenal glands. Normal right kidney. Normal left kidney. Normal visualized stomach. Normal small intestine. There are multiple colonic diverticula consistent with diverticulosis. The appendix is visualized and appears normal. There is diffuse atherosclerotic calcification of the abdominal aorta, without a demonstrated aneurysm. Normal inferior vena cava. Normal retroperitoneum. Normal abdominal wall. There are degenerative changes of the visualized lumbar spine. PELVIS Normal urinary bladder. Prostate measures 3.7 cm x 4.3 cm. This causes an inpatient bladder base. There is no pelvic fluid. There is no pelvic lymphadenopathy or mass lesion. There is diffuse atherosclerotic calcification of the pelvic arteries. CT/CT Chest, Abd, Pelvis WO Cont IMPRESSION: Stable examination. No acute abnormality is seen. Electronically Signed: Sorin Sorensen MD at 12:04 EDT ,
[2022-03-09] MEDS: oxyCODONE 5 MG Tablet PO (12:39)
== END 2022-03-09 12:41 | disposition home or self-care (01) ==
PROVIDERS: Emergency Provider Emergency Medicine; PCP Student in an Organized Health Care Education/Training Program; Visit Provider Emergency Medicine
DX: M54.42 Lumbago with sciatica, left side (principal); G40.909 Epilepsy, unspecified, not intractable, without status epilepticus; F17.210 Nicotine dependence, cigarettes, uncomplicated
CPT/HCPCS: 71250; 74176; 99282

== ENCOUNTER 2022-03-23 23:16 | Emergency (ER) | payer MEDICAID, SELFPAY ==
[2022-03-23 23:17] VITALS: BP 127/71; PULSE 71; RESP 16; TEMP 36.7; O2SAT 98; BMI 21.4
--- NOTE | 2022-03-23 23:34 | RAD_ITS ---
STUDY: X-RAY - PELVIS REASON FOR EXAM: Male, 67 years old. injury TECHNIQUE: One view of the pelvis was obtained. COMPARISON: None. FINDINGS: There is a non-specific bowel gas pattern. Normal visualized soft tissue structures. Normal bilateral iliac wings, sacroiliac joints and visualized sacrum. Normal visualized bilateral superior and inferior pubic rami. Normal pubic symphysis. Normal ischial tuberosities. Normal visualized right femoral head. Normal right acetabulum. Normal right hip joint. Normal visualized left femoral head. Normal left acetabulum. Normal left hip joint. RAD/Pelvis 1 or 2 Views IMPRESSION: Normal x-ray examination of the pelvis. Electronically Signed: Bob Mars DO at 0:04 EDT ,
--- NOTE | 2022-03-23 23:35 | EDS_ITS ---
HPI History of Present Illness Chief Complaint: Back Detail of Chief Complaint: Injury to back that occurred tonight Informant: patient Onset/Context/Timing Onset: Today Narrative Narrative: Patient presents the emergency department with injury to his back that occurred today. 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 He had a transmission on a anika that he forgot to lock. Patient states that transmission was about 25 to 30 pounds. As he was trying to crawl from underneath the car apparently the transmission came down on his back. Patient complains of pain into his left buttock. Patient complains of pain in the lower back. Denies weakness in the extremities. Denies other injuries. [facility] Medical History Epilepsy High cholesterol Sciatica Home Medications cyclobenzaprine 10 mg PO BID PRN #10 tab 03/07/22 [Rx Last Taken Unknown] prednisone 40 mg PO DAILY #10 tab 03/07/22 [Rx Last Taken Unknown] omeprazole 40 mg PO DAILY 03/23/22 [History Last Taken Unknown] naproxen 500 mg PO BID #14 tab 03/24/22 [Rx Last Taken Unknown] Allergy/AdvReac Type Severity Reaction Status Date / Time acetaminophen [From Vicodin] Allergy Itching Verified 03/23/22 23:20 hydrocodone [From [place]] AdvReac Upset Verified 03/23/22 23:20 Stomach ibuprofen AdvReac Upset Verified 03/23/22 23:20 Stomach tramadol AdvReac Upset Verified 03/23/22 23:20 Stomach Surgical History S/P clamping of cerebral aneurysm Social History Smoking Status: Current every day smoker tobacco type: cigarettes ROS ROS ED Constitutional Constitutional ED: Reports systems reviewed and no addt'l complaints, except as documented; Denies body ache(s), change in weight or chills Eyes Eyes: Denies acute decrease in peripheral vision, change in vision, double vision or loss of vision ENT ENT ED: Reports none; Denies ear pain, lip swelling, loss taste/smell, neck pain, otalgia or sore throat Cardiovascular Cardiovascular: Reports none; Denies abdominal pain, chest pain with activity, leg edema, lightheadedness, palpitations, rapid heart rate or syncope Respiratory/Chest Respiratory/Chest: Reports none; Denies change in mental status, dry cough, dyspnea, hemoptysis, shortness of breath at rest or shortness of breath with exertion Gastrointestinal Gastrointestinal: Reports none; Denies abdominal pain, change in stool character, diarrhea, hematemesis, hematochezia, melena, rectal bleeding or vomiting Genitourinary Genitourinary ED: Reports none; Denies abdominal discomfort, anuria, dysuria, genital pain or polyuria Musculoskeletal Musculoskeletal: Reports none, back pain and other Details: Back injury ; Denies arthralgias, difficulty walking, extremity pain, muscle weakness or myalgias Integumentary Reports none; Denies abscess or rash Neurologic Neurologic: Reports none; Denies abnormal gait, confusion, focal weakness, frequent falls, headache(s), loss of vision, numbness, paresthesias, radicular pain, vertigo or weakness Psychiatric Psychiatric: Reports systems reviewed and no addt'l complaints, except as documented and none; Denies behavioral changes, confusion, difficulty concentrating, hallucinations, suicidal ideation, tactile hallucinations or v isual hallucinations Endocrine Endocrinology: Denies none, cold intolerance, excessive sweating, fatigue or heat intolerance Hematologic/Lymphatic Hematologic/Lymphatic: Reports none; Denies anemia, easy bleeding or easy bruising Allergic/Immunologic Allergic/Immunologic ED: Denies as per HPI, none, lip swelling, mouth swelling, throat swelling, tongue swelling or hives EXAM Physical Exam Const Vital Signs: 03/23/22 23:17 Temperature 98.0 F Temperature Source Temporal Pulse Rate 71 Respiratory Rate 16 Blood Pressure 127/71 H Blood Pressure Mean 89 Pulse Ox 98 Oxygen Delivery Method Room Air Positive well nourished and well developed General Appearance ED: well developed and NAD HEENT Reports TM's clear and moist mucous membranes normocephalic and atraumatic; Negative for trauma or tenderness Tympanic Membrane ED: Yes TM's clear Eyes PERRL and EOMs intact bilaterally General Eye ED: Negative for pale conjunctiva or scleral icterus Neck no lymphadenopathy, supple and no JVD General: Negative for tenderness Chest Wall inspection of chest normal and palpation of chest normal Chest: Negative for tenderness Resp normal respiratory effort and clear to auscultation bilaterally Effort and Inspection: Negative for respiratory distress or pain with movement Auscultation: Negative for rhonchi, wheezes or diminished lung sounds Cardio regular rate, regular rhythm, S1 normal heart sound, S2 normal heart sound and no murmurs Peripheral Pulses: pulses 2+ throughout GI normal to inspection, nondistended, normoactive bowel sounds, soft to palpation, non-tender, non-distended and no masses Back/Spine no CVA tenderness Back/Spine Narrative: Patient palpation over the lumbar spine as well as the left buttock. There is no ecchymosis or bruising noted. No abrasions noted. No obvious deformity. No bony step-offs. Neurovascularly intact distally. Extremity normal to inspection General Extremety ED: Negative for edema General Extremity: Negative for edema Neuro oriented x3, CN's II-XII intact bilaterally, no sensory deficits noted and gait normal Sensorium / Orientation: awake, alert, oriented to person, oriented to place and oriented to time Motor Exam: strength 5/5 throughout and strength abnormal Psych mental status grossly normal Skin no rashes or lesions noted and no wounds MDM MDM MDM Narrative Medical decision making narrative: Patient was given 1 dose of Oxy IR in the department. Patient will be given a prescription for Flexeril and naproxen. Patient advised to follow-up with primary care physician 5 to 7 days. I suspect he has a back contusion. Radiography Diagnostic Testing: Clinical Impression(s) from Imaging Studies Pelvis X-Ray 03/23/22 23:34 IMPRESSION: Normal x-ray examination of the pelvis. Electronically Signed: Bob Mars DO at 0:04 EDT Reading Location ID and State: [facility] / [place] Tel , Service support , Lumbar Spine X-Ray 03/23/22 23:40 IMPRESSION: Degenerative changes of the spine, as detailed above. Electronically Signed: Bob Mars DO at 0:03 EDT Reading Location ID and State: [facility] / [place] Tel , Service support , Three-view x-rays of lumbar spine obtained showed no fractures only degenerative changes on my interpretation and radiology in agreement.. Patient also had x- rays 1 view of pelvis which were interpreted by myself as normal. Radiology in agreement. Discharge Plan Triage Chief Complaint: Back ED Provider: Abril Velarde Dx/Rx/DC Orders Clinical Impression: Back contusion Instructions: ED Back Contusion Prescriptions: New naproxen 500 MG tablet 500 mg PO BID Qty: 14 RF: 0 No Action cyclobenzaprine 10 mg tablet 10 mg PO BID PRN (Reason: muscle spasm) Qty: 10 RF: 0 prednisone 20 mg tablet 40 mg PO DAILY Qty: 10 RF: 0 omeprazole 20 mg capsule,delayed release(DR/EC) 40 mg PO DAILY RF: 0 Primary Care Provider: Jefferson Gregorio Referrals: Jefferson Gregorio DO [Primary Care Provider] - 5-7 Days Disposition Disposition: Home, Self Care
--- NOTE | 2022-03-23 23:40 | RAD_ITS ---
STUDY: X-RAY - LUMBAR SPINE REASON FOR EXAM: Male, 67 years old. injury TECHNIQUE: 3 view(s) of the lumbar spine were obtained. COMPARISON: None FINDINGS: Normal lumbar lordosis. There is no substantial scoliosis. There is a normal alignment of the vertebrae. There is multilevel endplate spondylosis of the lumbar vertebrae. There is multi-level degenerative disc disease with multi-level disc space narrowing. There is no demonstrated fracture. The soft tissue structures are unremarkable. RAD/Lumbar Spine 2 or 3 Views IMPRESSION: Degenerative changes of the spine, as detailed above. Electronically Signed: Bob Mars DO at 0:03 EDT ,
[2022-03-24] MEDS: oxyCODONE 5 MG Tablet PO (00:12)
[2022-03-24 00:14] VITALS: BP 117/65; PULSE 70; RESP 15; O2SAT 97
== END 2022-03-24 00:14 | disposition home or self-care (01) ==
PROVIDERS: Emergency Provider Emergency Medicine; PCP Student in an Organized Health Care Education/Training Program; Visit Provider Emergency Medicine
DX: S20.229A Contusion of unspecified back wall of thorax, initial encounter (principal); G40.909 Epilepsy, unspecified, not intractable, without status epilepticus; F17.210 Nicotine dependence, cigarettes, uncomplicated; E78.00 Pure hypercholesterolemia, unspecified; Z79.899 Other long term (current) drug therapy; W22.8XXA Striking against or struck by other objects, initial encounter
CPT/HCPCS: 72100; 72170; 99283; A4216

== ENCOUNTER 2022-04-02 21:21 | Emergency (ER) | payer MEDICAID, SELFPAY ==
[2022-04-02 21:22] VITALS: BP 137/70; PULSE 65; RESP 15; TEMP 36.4; O2SAT 97; BMI 21.4
--- NOTE | 2022-04-02 22:07 | RAD_ITS ---
STUDY: LEFT FOOT X-RAY SERIES OF 2224 HOURS ON 04/02/2022 CLINICAL: 67-year-old male with left foot trauma and pain. TECHNIQUE: 3 view(s) of the foot. COMPARISON: None. FINDINGS: There are moderate osteophytic degenerative changes at the left first tarsal-metatarsal joint. There is no evidence of a significant arthritic or degenerative changes of the foot. There is no evidence of fractures or dislocations. There are hammertoe deformities of second through fifth toes. No osseous lytic, sclerotic or mass lesions are noted there is a small calcaneal spur. The plantar arch has a normal appearance. Mild demineralization is present. Surrounding soft tissues are normal. RAD/Foot min 3 Views IMPRESSION: 1. No fractures or dislocations. 2. Moderate osteophytic degenerative changes of the left first tarsal tarsal joint. No other arthritic or degenerative changes in the left foot. 3. Hammertoe deformities of second through fifth toes. 4. No neoplastic mass lesions or inflammatory disease. 5. Small calcaneal spur. 6. Mild demineralization. Electronically Signed: Kannan Pichardo MD at 23:34 EDT ,
--- NOTE | 2022-04-02 22:08 | EDS_ITS ---
HPI History of Present Illness Chief Complaint: Other, Pain/Inj Informant: patient Narrative Narrative: Patient complains of pain to his back and his left foot. An hour or so ago he was helping his brother carry a freezer. He could not hold it because his back was hurting. He commonly has back problems and sciatica. He ended up dropping the freezer onto his left foot. He then fell backwards and landed on his buttock. He has pain in the lower lumbar area. He has some pain going toward the right buttock but no further. No numbness tingling distally. No notable change in bowel or bladder function. He does have isolated pain in the midportion of his left foot. Patient had femur surgery when he was 19 but he is not hurting in his thigh. He is able to bear weight but it is somewhat sore. PFSH PFS Medical History Epilepsy High cholesterol Sciatica Home Medications omeprazole 40 mg PO DAILY 03/23/22 [History Last Taken Unknown] cyclobenzaprine 10 mg PO BID PRN #10 tab 04/02/22 [Rx Last Taken Unknown] gabapentin 300 mg PO 4X/DAY 04/02/22 [History Last Taken Unknown] naproxen 500 mg PO BID #14 tab 04/02/22 [Rx Last Taken Unknown] prednisone 40 mg PO BID 04/02/22 [History Last Taken Unknown] Allergy/AdvReac Type Severity Reaction Status Date / Time acetaminophen [From Vicodin] Allergy Itching Verified 04/02/22 21:26 hydrocodone [From [place]] AdvReac Upset Verified 04/02/22 21:26 Stomach ibuprofen AdvReac Upset Verified 04/02/22 21:26 Stomach ketorolac [From Torad[place]] AdvReac Rash Verified 04/02/22 21:26 tramadol AdvReac Upset Verified 04/02/22 21:26 Stomach Surgical History S/P clamping of cerebral aneurysm Social History Smoking Status: Current every day smoker tobacco type: cigarettes ROS ROS ED Constitutional Constitutional ED: Denies fever(s) Cardiovascular Cardiovascular: Denies chest pain Respiratory/Chest Respiratory/Chest: Denies cough Gastrointestinal Gastrointestinal: Denies constipation, diarrhea, nausea or vomiting Genitourinary Genitourinary ED: Denies dysuria, hematuria or urinary frequency Musculoskeletal Musculoskeletal: Reports arthralgias, back pain and other Details: See history of present illness peer ; Denies neck pain Integumentary Reports other Details: Contusion to the top of the left foot. Neurologic Neurologic: Denies paresthesias or weakness Endocrine Endocrinology: Denies polydipsia Hematologic/Lymphatic Hematologic/Lymphatic: Denies easy bleeding or easy bruising Allergic/Immunologic Allergic/Immunologic ED: Denies urticaria EXAM Physical Exam Const Vital Signs: 04/02/22 21:22 04/02/22 23:28 Temperature 97.6 F L Temperature Source Temporal Pulse Rate 65 60 Respiratory Rate 15 18 Blood Pressure 137/70 H 131/67 H Blood Pressure Mean 92 88 Pulse Ox 97 98 Oxygen Delivery Method Room Air Room Air Positive well nourished and well developed General Appearance ED: well developed and NAD HEENT atraumatic Chest Wall inspection of chest normal Resp normal respiratory effort and clear to auscultation bilaterally Cardio regular rhythm Rate: regular rate GI normal to inspection, nondistended, normoactive bowel sounds and non-tender Palpation: soft Back/Spine Back/Spine Narrative: Patient does have some diffuse mild paraspinal tenderness in the back. It is much more on the lateral aspect than the middle. A little bit of tenderness toward the sciatic notch in the left buttock. He has no sign of numbness tingling or weakness. His strength is intact. He has trouble pushing down firmly with his left foot but he states that because the foot hurts. Neurologic input seems normal though. Extremity Extremity Narrative: He does have a contusion and slightly swollen area on the dorsal medial aspect of his left foot. No break in the skin. Neuro oriented x3 Sensorium / Orientation: alert Motor Exam: strength 5/5 throughout Skin Skin Narrative: Contusion top of left foot MDM MDM MDM Narrative Medical decision making narrative: Patient's foot and lumbar spine films looked at by me and read by radiology shows chronic changes but no acute process. Patient was given 1 oxycodone here. I do not think patient needs narcotics to go. He can take Naprosyn. We will write for that and some Flexeril. Although he does have injuries, I do not think these require narcotics. I did do an online prescriber report. In the last month he has had prescriptions for narcotics from 4 different prescribers for a total of 23 out of the last approximately 33 days. I think ice rest nonsteroidals muscle relaxants are appropriate. Radiography Diagnostic Testing: Clinical Impression(s) from Imaging Studies Foot X-Ray 04/02/22 22:07 IMPRESSION: 1. No fractures or dislocations. 2. Moderate osteophytic degenerative changes of the left first tarsal tarsal joint. No other arthritic or degenerative changes in the left foot. 3. Hammertoe deformities of second through fifth toes. 4. No neoplastic mass lesions or inflammatory disease. 5. Small calcaneal spur. 6. Mild demineralization. Electronically Signed: Kannan Pichardo MD at 23:34 EDT , Lumbar Spine X-Ray 04/02/22 22:14 IMPRESSION: Mild degenerative changes. No suspicious acute findings. Electronically Signed: Gillian Shepard MD at 23:35 EDT , Discharge Plan Triage Chief Complaint: Other, Pain/Inj ED Provider: Gene Cristina Dx/Rx/DC Orders Clinical Impression: Lumbar strain, Contusion of foot, left Instructions: ED Back Sprain/Strain, ED Foot Contusion Prescriptions: New cyclobenzaprine 10 mg tablet 10 mg PO BID PRN (Reason: muscle spasm) Qty: 10 RF: 0 naproxen 500 MG tablet 500 mg PO BID Qty: 14 RF: 0 No Action omeprazole 20 mg capsule,delayed release(DR/EC) 40 mg PO DAILY RF: 0 gabapentin 300 mg capsule 300 mg PO 4X/DAY RF: 0 prednisone 20 mg tablet 40 mg PO BID RF: 0 Primary Care Provider: Jefferson Gregorio Referrals: Jefferson Gregorio, [Primary Care Provider] - 3-5 Days if not improving Disposition Disposition: Home, Self Care
--- NOTE | 2022-04-02 22:14 | RAD_ITS ---
EXAM: XR LUMBOSACRAL SPINE, 4 OR 5 VIEWS CLINICAL INDICATION: trauma TECHNIQUE: Frontal, lateral and bilateral oblique views of the lumbar spine. This report was created using [employer] report generation technology. COMPARISON: None. FINDINGS: VERTEBRAE: There is straightening of the usual lordotic curvature. Mild disc space narrowing at L3-4 through L5-S1. Mild spondylosis at multiple levels. Mild peripheral calcification of the aorta. Preserved vertebral body height. No fracture. No significant facet arthropathy. DISC SPACES: See above. GASTROINTESTINAL TRACT: Unremarkable as visualized. Included bowel gas pattern is non-obstructive. RAD/L/S Spine Min 4 Views IMPRESSION: Mild degenerative changes. No suspicious acute findings. Electronically Signed: Gillian Shepard MD at 23:35 EDT ,
[2022-04-02 23:28] VITALS: BP 131/67; PULSE 60; RESP 18; O2SAT 98
[2022-04-02] MEDS: oxyCODONE 5 MG Tablet PO (23:34)
== END 2022-04-03 00:03 | disposition home or self-care (01) ==
PROVIDERS: Emergency Provider Emergency Medicine; PCP Student in an Organized Health Care Education/Training Program; Visit Provider Emergency Medicine
DX: S39.012A Strain of muscle, fascia and tendon of lower back, initial encounter (principal); G40.909 Epilepsy, unspecified, not intractable, without status epilepticus; S90.32XA Contusion of left foot, initial encounter; E78.00 Pure hypercholesterolemia, unspecified; W19.XXXA Unspecified fall, initial encounter; F17.210 Nicotine dependence, cigarettes, uncomplicated; W22.8XXA Striking against or struck by other objects, initial encounter; Z79.899 Other long term (current) drug therapy
CPT/HCPCS: 72110; 73630; 99283

== ENCOUNTER 2022-04-14 17:35 | Emergency (ER) | payer MEDICAID, SELFPAY ==
[2022-04-14 17:37] VITALS: BP 136/93; PULSE 64; RESP 18; TEMP 36.4; O2SAT 99; BMI 21.4
--- NOTE | 2022-04-14 18:00 | CT_ITS ---
EXAM: CT THORACIC SPINE WITHOUT INTRAVENOUS CONTRAST CLINICAL INDICATION: Trauma TECHNIQUE: Helically acquired images were obtained of the thoracic spine without intravenous contrast. 2D reformats were reviewed. This CT exam was performed using one or more of the following dose reduction techniques: automated exposure control, adjustment of the mA and/or kV according to patient size, and/or use of iterative reconstruction technique. This report was created using [employer] report generation technology. COMPARISON: None. FINDINGS: VERTEBRAE: Unremarkable. No fracture. No traumatic subluxation. No discrete lytic or blastic abnormality. Normal alignment. DISCS/SPINAL CANAL/NEURAL FORAMINA: Unremarkable. Disc heights are preserved. VASCULATURE: Visualized thoracic aorta is not dilated. LYMPH NODES: Unremarkable. No retroperitoneal adenopathy. LUNGS AND PLEURAL SPACES: Unremarkable as visualized. No mass. No consolidation or edema. No pleural effusion or thickening. No pneumothorax. CT/Spine Thoracic without Contras IMPRESSION: No evidence of acute thoracic spinal fracture or spondylolisthesis. Electronically Signed: Alphonse Wilkes MD at 20:11 EDT ,
--- NOTE | 2022-04-14 18:00 | EKG12_ITS ---
Test Reason : FALL Blood Pressure : / mmHG Vent. Rate : 057 BPM Atrial Rate : 057 BPM P-R Int : 184 ms QRS Dur : 068 ms QT Int : 398 ms P-R-T Axes : 000 -11 149 degrees QTc Int : 387 ms Sinus bradycardia Low voltage QRS Nonspecific T wave abnormality Abnormal ECG Confirmed by MOUNA LUCAS, LENA ([id number]), offline editor CELIA PEACOCK ([id number]) on 04/18/2022 8:06:29 AM Referred By: Confirmed By:LENA FREIRE MD
--- NOTE | 2022-04-14 18:00 | CT_ITS ---
EXAM: CT HEAD WITHOUT INTRAVENOUS CONTRAST CLINICAL INDICATION: Trauma TECHNIQUE: Multiple axial images were obtained of the head without intravenous contrast. This CT exam was performed using one or more of the following dose reduction techniques: automated exposure control, adjustment of the mA and/or kV according to patient size, and/or use of iterative reconstruction technique. This report was created using [employer] report generation technology. COMPARISON: None. FINDINGS: BRAIN AND EXTRA-AXIAL SPACES: Unremarkable. No intra- or extra-axial hemorrhage. No evidence of acute infarct. No intracranial mass or mass effect. There is preservation of the ibanez/white matter interface. Posterior fossa structures are unremarkable. Ventricles are appropriate for age. No hydrocephalus. Basal cisterns are patent. BONES/JOINTS: There is a stable posterior left parietal craniotomy. No discrete lytic or blastic abnormalities. SINUSES: Unremarkable as visualized. Clear. MASTOID AIR CELLS: Unremarkable. Clear. ORBITS: Visualized globes, extraocular muscles, optic nerves and retrobulbar fat appear unremarkable. CT/Brain/Head without Contrast IMPRESSION: No acute intracranial abnormality. There has been no change from the reference exam. Electronically Signed: Alphonse Wilkes MD at 19:47 EDT ,
--- NOTE | 2022-04-14 18:00 | RAD_ITS ---
STUDY: XR Pelvis 1 or 2 Views 04/14/2022 7:18 PM REASON FOR EXAM: Male, 67 years old. Trauma -- Pain TECHNIQUE: XR Pelvis 1 or 2 Views COMPARISON: None FINDINGS: There is a non-specific bowel gas pattern. There are multiple calcified phleboliths.There are degenerative changes of the lumbar spine. Normal bilateral iliac wings, sacroiliac joints and visualized sacrum. Normal visualized bilateral superior and inferior pubic rami. Normal pubic symphysis. Normal ischial tuberosities. Normal visualized right femoral head. Normal right acetabulum. Normal right hip joint. Normal visualized left femoral head. Normal left acetabulum. Normal left hip joint. RAD/Pelvis 1 or 2 Views IMPRESSION: No acute findings. Electronically Signed: Rik Bone MD at 19:33 EDT ,
--- NOTE | 2022-04-14 18:00 | CT_ITS ---
EXAM: CT LUMBAR SPINE WITHOUT INTRAVENOUS CONTRAST CLINICAL INDICATION: Trauma TECHNIQUE: Helically acquired images were obtained of the lumbar spine without intravenous contrast. 2D reformats were reviewed. This CT exam was performed using one or more of the following dose reduction techniques: automated exposure control, adjustment of the mA and/or kV according to patient size, and/or use of iterative reconstruction technique. This report was created using [employer] report [employer] technology. COMPARISON: None. FINDINGS: VERTEBRAE: Unremarkable. No fracture. No traumatic subluxation. No discrete lytic or blastic abnormality. Normal alignment. DISCS/SPINAL CANAL/NEURAL FORAMINA: There is disc space narrowing at L5-S1. Compression. No acute osseous abnormality. There are mild degenerative changes with disc space narrowing at L5-S1. VASCULATURE: Visualized abdominal aorta is not dilated. LYMPH NODES: Unremarkable. No retroperitoneal adenopathy. CT/Spine Lumbar without Contrast IMPRESSION: No acute findings in the lumbar spine. Electronically Signed: Alphonse Wilkes MD at 20:05 EDT ,
--- NOTE | 2022-04-14 18:03 | EDS_ITS ---
HPI HPI - Fall History of Present Illness Chief Complaint: Trauma Narrative Narrative: Patient who denies significant past medical history presents status post fall approximately 25 to 30 feet. He states that he was at his brother's house, trying to cut down and [place] when he stepped on the wrong branch, and fell on to the grassy lawn. He states he fell into a standing position and then must have rolled. He complains of low back pain and bilateral leg pain. He needed assistance in standing, but was able to ambulate a few steps. He denies hitting his head or loss of consciousness. No other injury. He presents via private vehicle. [facility] Medical History Epilepsy High cholesterol Sciatica Home Medications omeprazole 20 mg capsule,delayed release 40 mg PO DAILY 03/23/22 [History Last Taken Unknown] cyclobenzaprine 10 mg tablet 10 mg PO BID PRN muscle spasm #10 tabs 04/02/22 [Rx Last Taken Unknown] gabapentin 300 mg capsule 300 mg PO 4X/DAY 04/02/22 [History Last Taken Unknown] naproxen 500 mg tablet 500 mg PO BID #14 tabs 04/02/22 [Rx Last Taken Unknown] prednisone 20 mg tablet 40 mg PO BID 04/02/22 [History Last Taken Unknown] Allergy/AdvReac Type Severity Reaction Status Date / Time acetaminophen [From Vicodin] Allergy Itching Verified 04/14/22 17:37 hydrocodone [From [place]] AdvReac Upset Verified 04/14/22 17:37 Stomach ibuprofen AdvReac Upset Verified 04/14/22 17:37 Stomach ketorolac [From Toradol] AdvReac Rash Verified 04/14/22 17:37 naproxen AdvReac Rash Verified 04/14/22 17:52 tramadol AdvReac Upset Verified 04/14/22 17:37 Stomach Surgical History S/P clamping of cerebral aneurysm Social History Smoking Status: Current every day smoker tobacco type: cigarettes ROS ROS ED ROS Narrative Constitutional: No fever, no chills. HEENT: No sore throat. No neck pain. No loss of vision. No rhinorrhea. Cardiovascular: No chest pain. No palpitations. No pedal edema. Respiratory: No cough, no shortness of breath. Abdominal: No abdominal pain. No nausea. No vomiting. Genitourinary: No dysuria. No hematuria. Musculoskeletal: No myalgias. No arthralgias. Low back pain. Bilateral leg pain. Neurologic: No headaches. No dizziness. No lightheadedness. Skin: No rash. No change in color. Psychiatric: No depression. No anxiety. EXAM Physical Exam Narrative Exam Narrative: Afebrile. Vital signs noted. GCS 15. ABCs intact. HEENT: Normocephalic. Atraumatic. PERRL, EOMI. Neck soft and supple. No point tenderness or step off. Cardiovascular: Regular rate and rhythm. No murmurs, rubs, or gallops appreciated. Respiratory: No tachypnea. Lungs clear to auscultation bilaterally. Gastrointestinal: Abdomen soft, nontender, with normoactive bowel sounds. No rebound or guarding. Neurological: Awake. Alert. Oriented x3. Nonfocal, nonlateralizing. Able to raise arms above head without difficulty. Skin: No rash. Normal color. No pallor. Musculoskeletal: No pedal edema. Full range of motion extremities. Pelvis stable. Mild tenderness bilateral hips. Const Vital Signs: 04/14/22 17:37 04/14/22 17:45 04/14/22 17:47 Temperature 97.5 F L Temperature Source Temporal Pulse Rate 64 Respiratory Rate 18 Respiratory Effort Normal Non-Labored Normal Respiratory Depth Normal Respiratory Pattern Normal Blood Pressure 136/93 H Blood Pressure Mean 107 Pulse Ox 99 Oxygen Delivery Method Room Air Room Air 04/14/22 19:38 Temperature Temperature Source Pulse Rate 50 L Respiratory Rate 16 Respiratory Effort Respiratory Depth Respiratory Pattern Blood Pressure 153/74 H Blood Pressure Mean 100 Pulse Ox 99 Oxygen Delivery Method Room Air MDM MDM MDM Narrative Medical decision making narrative: Multiple imaging was obtained of the C-spine, thoracic spine, and lumbosacral spine with CT. I did also order basic laboratory work and pelvis and chest x- ray. I also obtained a CT of the brain. I interpreted his EKG. It demonstrates sinus bradycardia at 57 bpm without ectopy or acute ST changes. No STEMI. His laboratory work is grossly unremarkable, normal CBC, CMP grossly unremarkable except for glucose of 124 with a normal anion gap of 6. Ethyl alcohol is negative. Urine drug screen positive for cannabinoids. The multiple imaging modalities including CT of the brain, C-spine, thoracic spine, and lumbar spine showed no evidence of acute fracture. Additionally, chest x-ray and pelvis x-ray were interpreted by myself. There is no evidence of fracture. After 2 doses of morphine, the patient is able to ambulate independently. I do feel he can be discharged safely home with follow-up. He had been told that if he were unable to ambulate that he may need transfer to a trauma center. However, given his reported fall, albeit from approximately 25 feet he states, with negative imaging, I feel he can be discharged home to follow-up with his primary care physician. Return instructions to the emergency department were reviewed. Disposition is discharged home in stable condition. Lab Data Attestation: I reviewed the patient's lab results. Labs: Laboratory Results - last 24 hr 04/14/22 04/14/22 04/14/22 18:05 18:05 18:05 WBC 7.4 RBC 4.61 Hgb 13.4 Hct 41.3 MCV 89.6 MCH 29.1 MCHC 32.4 RDW Std Deviation 46.0 H RDW Coeff of Jerry 14.2 Plt Count 311 MPV 8.9 Immature Gran % (Auto) 0.100 Neut % (Auto) 69.5 Lymph % (Auto) 21.1 [place] % (Auto) 7.0 Eos % (Auto) 1.8 Baso % (Auto) 0.5 Absolute Neuts (auto) 5.1 Absolute Lymphs (auto) 1.56 Nucleated RBC % 0 Sodium 140 Potassium 3.8 Chloride 107 Carbon Dioxide 27.0 Anion Gap 6 BUN 10 Creatinine 1.14 Estim Creat Clear Calc 62.98 Est GFR (MDRD) Af Amer 83 Est GFR (MDRD) Non-Af 68 BUN/Creatinine Ratio 8.8 L Glucose 124 H Calcium 9.3 Urine Opiates Screen Urine Methadone Screen Ur Barbiturates Screen Ur Phencyclidine Scrn Ur Amphetamines Screen MDMA (Ecstasy) Screen U Benzodiazepines Scrn Urine Cocaine Screen U Cannabinoids Screen Ur Drug Screen Comment Ethyl Alcohol 10.0 04/14/22 19:35 WBC RBC Hgb Hct MCV MCH MCHC RDW Std Deviation RDW Coeff of Jerry Plt Count MPV Immature Gran % (Auto) Neut % (Auto) Lymph % (Auto) [place] % (Auto) Eos % (Auto) Baso % (Auto) Absolute Neuts (auto) Absolute Lymphs (auto) Nucleated RBC % Sodium Potassium Chloride Carbon Dioxide Anion Gap BUN Creatinine Estim Creat Clear Calc Est GFR (MDRD) Af Amer Est GFR (MDRD) Non-Af BUN/Creatinine Ratio Glucose Calcium Urine Opiates Screen NEGATIVE Urine Methadone Screen NEGATIVE Ur Barbiturates Screen NEGATIVE Ur Phencyclidine Scrn NEGATIVE Ur Amphetamines Screen NEGATIVE MDMA (Ecstasy) Screen NEGATIVE U Benzodiazepines Scrn NEGATIVE Urine Cocaine Screen NEGATIVE U Cannabinoids Screen POSITIVE H Ur Drug Screen Comment Ethyl Alcohol Radiography Diagnostic Testing: Clinical Impression(s) from Imaging Studies Brain CT 04/14/22 18:00 IMPRESSION: No acute intracranial abnormality. There has been no change from the reference exam. Electronically Signed: Alphonse Wilkes MD at 19:47 EDT , Lumbar Spine CT 04/14/22 18:00 IMPRESSION: No acute findings in the lumbar spine. Electronically Signed: Alphonse Wilkes MD at 20:05 EDT , Pelvis X-Ray 04/14/22 18:00 IMPRESSION: No acute findings. Electronically Signed: Rik Bone MD at 19:33 EDT , Thoracic Spine CT 04/14/22 18:00 IMPRESSION: No evidence of acute thoracic spinal fracture or spondylolisthesis. Electronically Signed: Alphonse Wilkes MD at 20:11 EDT , Cervical Spine CT 04/14/22 18:42 IMPRESSION: No acute osseous abnormalities of the cervical spine. There are mild degenerative changes with disc space narrowing at C4-5. Electronically Signed: Alphonse Wilkes MD at 20:00 EDT , Chest X-Ray 04/14/22 19:15 IMPRESSION: There are no acute findings. Electronically Signed: Rik Bone MD at 19:33 EDT , Discharge Plan Triage Chief Complaint: Trauma ED Provider: Micheal Sun Dx/Rx/DC Orders Clinical Impression: Fall from tree, Low back strain, Contusion of pelvic region, Bilateral leg pain Instructions: ED Soft Tissue Contusion, ED Back Contusion, ED Mechanical Fall, ED RICE Prescriptions: No Action omeprazole 20 mg capsule,delayed release(DR/EC) 40 mg PO DAILY Label Comments: TAKE 1 CAPSULE BY MOUTH EVERY DAY IN THE MORNING BEFORE BREAKFAST gabapentin 300 mg capsule 300 mg PO 4X/DAY prednisone 20 mg tablet 40 mg PO BID Rx Instructions: taper cyclobenzaprine 10 mg tablet 10 mg PO BID PRN (Reason: muscle spasm) Qty: 10 0RF naproxen 500 MG tablet 500 mg PO BID Qty: 14 0RF Primary Care Provider: Jefferson Gregorio Referrals: Jefferson Gregorio DO [Primary Care Provider] - 3-5 Days if not improving Disposition Disposition: Home, Self Care Discharge Date/Time: 04/14/22 20:58
[2022-04-14] MEDS: Morphine 4 MG/ML Syringe IV ×2 (18:22→19:40)
[2022-04-14 18:30] LABS: Absolute Lymphocyte Count 1.56 X10^3/uL (0.83-4.51); Absolute Neutrophil Count 5.1 X10^3/uL (2.0-7.7); Basophil# 0.04 X10^3/uL; Basophil% 0.5 % (0-1); Eosinophil# 0.13 X10^3/uL; Eosinophils% 1.8 % (0-5); Hematocrit 41.3 % (40-54); Hemoglobin 13.4 g/dL (13.0-16.5); Lymphocyte # 1.56 X10^3/ul (0.83-4.51); Lymphocyte % 21.1 % (19-41); Mean Corp Hgb Conc 32.4 g/dL (32-36); Mean Corpuscular Hgb 29.1 pg (27.0-32.0); Mean Corpuscular Volume 89.6 fL (80-94); Mean Platelet Vol. 8.9 fl (6.2-12.0); Monocyte# 0.52 X10^3/uL; NRBC Flagged by Analyzer 0 % (0-5); Neutrophil # 5.13 X10^3/uL (2.7-7.7); Neutrophil % 69.5 % (47-70); Platelet Count 311 K/mm3 (150-450); RBC Distribution Width CV 14.2 % (11.6-14.6); Red Blood Count 4.61 M/mm3 (4.6-6.2); White Blood Count 7.4 K/mm3 (4.4-11.0)
--- NOTE | 2022-04-14 18:42 | CT_ITS ---
EXAM: CT CERVICAL SPINE WITHOUT INTRAVENOUS CONTRAST CLINICAL INDICATION: TRAUMA TECHNIQUE: Helically acquired images were obtained of the cervical spine without intravenous contrast. 2D reformatted images were reviewed. This CT exam was performed using one or more of the following dose reduction techniques: automated exposure control, adjustment of the mA and/or kV according to patient size, and/or use of iterative reconstruction technique. This report was created using [employer] report generation technology. COMPARISON: None. FINDINGS: VERTEBRAE: Unremarkable. No fracture. No traumatic subluxation. No discrete lytic or blastic abnormality. Normal alignment. Normal craniocervical junction and cervicothoracic junction. DISCS/SPINAL CANAL/NEURAL FORAMINA: There is disc space narrowing at C4-5. SOFT TISSUES: Unremarkable. No prevertebral soft tissue swelling. LYMPH NODES: Unremarkable. No cervical adenopathy. LUNG APICES: Unremarkable as visualized. Clear. CT/Spine Cervical without Contras IMPRESSION: No acute osseous abnormalities of the cervical spine. There are mild degenerative changes with disc space narrowing at C4-5. Electronically Signed: Alphonse Wilkes MD at 20:00 EDT ,
[2022-04-14 18:45] LABS: Anion Gap 6 (5-15); BUN 10 mg/dL (7-18); BUN/Creat Ratio 8.8 RATIO (10-20); Calcium,Total 9.3 mg/dL (8.5-10.1); Chloride 107 mmol/L (98-107); Creatinine, Serum 1.14 mg/dL (0.70-1.30); EST Glomerular Filtration Rate 68 mL/min (>60); Est Glom Filt Rate - Afr Amer 83 mL/min (>60); Estimated Creatinine Clearance 62.98 ml/min; Glucose 124 mg/dL (74-106); Potassium 3.8 mmol/L (3.5-5.1); Sodium Level 140 mmol/L (136-145)
--- NOTE | 2022-04-14 19:15 | RAD_ITS ---
STUDY: X-RAY CHEST REASON FOR EXAM: Male, 67 years old. Trauma TECHNIQUE: XR Chest 1 View COMPARISON: Prior comparison studies are not available for review at this time. FINDINGS: There is no demonstrated pleural abnormality. Normal size heart. Normal mediastinum and mervat. Normal visualized pulmonary arteries. Normal visualized aortic arch and descending thoracic aorta. There are diffuse degenerative changes of the visualized thoracic spine. There is degenerative osteoarthritis of the bilateral shoulders. There is no demonstrated abnormality of the visualized soft tissue structures of the upper abdomen. RAD/Chest 1 View (Portable) IMPRESSION: There are no acute findings. Electronically Signed: Rik Bone MD at 19:33 EDT ,
[2022-04-14 19:38] VITALS: BP 153/74; PULSE 50; RESP 16; O2SAT 99
[2022-04-14 19:59] LABS: Amphetamine Urine VISTA NEGATIVE (<1000 ng/mL); Barbiturate Urine VISTA NEGATIVE (< 200 ng/mL); Benzodiazepine Urine VISTA NEGATIVE (< 200 ng/mL); Cocaine Urine VISTA NEGATIVE (< 300 ng/mL); Ecstacy Urine VISTA NEGATIVE (< 500 ng/mL); Methadone Urine VISTA NEGATIVE (< 300 ng/mL); PCP Urine VISTA NEGATIVE (< 25 ng/mL); THC Urine VISTA POSITIVE (< 50 ng/mL); Vista UDS pH Range 8
== END 2022-04-14 20:58 | disposition home or self-care (01) ==
PROVIDERS: Emergency Provider Emergency Medicine; PCP Student in an Organized Health Care Education/Training Program; Visit Provider Emergency Medicine
DX: S39.012A Strain of muscle, fascia and tendon of lower back, initial encounter (principal); G40.909 Epilepsy, unspecified, not intractable, without status epilepticus; F17.210 Nicotine dependence, cigarettes, uncomplicated; W14.XXXA Fall from tree, initial encounter; Z79.899 Other long term (current) drug therapy; M79.604 Pain in right leg; M79.605 Pain in left leg
CPT/HCPCS: 70450; 71045; 72125; 72128; 72131; 72170; 80048; 80307; 82077; 85025; 93005; 96374; 96375; 99284; J7030; A4216

== ENCOUNTER 2022-04-16 14:41 | Emergency (ER) | payer MEDICAID, SELFPAY ==
[2022-04-16 14:42] VITALS: BP 122/80; PULSE 74; RESP 14; TEMP 36.9; O2SAT 100; BMI 21.4
--- NOTE | 2022-04-16 15:05 | CT_ITS ---
STUDY: CT ABDOMEN AND PELVIS WITH CONTRAST REASON FOR EXAM: Male, 67 years old. recent trauma, GI bleed RADIATION DOSAGE (If Supplied By Facility): CTDIvol = ( 11.81 ) mGy, DLP = ( 729.23 ) mGycm TECHNIQUE: Transaxial images were obtained from the dome of the diaphragm to the symphysis pubis without oral contrast. IV 100mL Isovue-370 was administered. Sagittal and coronal images were reconstructed. Individualized dose optimization techniques were used for this CT. COMPARISON: 03/09/2022 FINDINGS: The visualized lung bases are unremarkable. The visualized portions of the heart are within normal limits. Normal liver. Normal gallbladder and extrahepatic biliary system. Normal spleen. Normal pancreas. Normal bilateral adrenal glands. Normal right kidney. Normal left kidney. Normal visualized stomach. Normal small intestine. There are multiple colonic diverticula consistent with diverticulosis. The appendix is visualized and appears normal. Normal abdominal aorta. Normal inferior vena cava. Normal retroperitoneum. Normal urinary bladder. Normal abdominal wall. Normal osseous structures. CT/Abdomen/Pelvis W IV Cont ONLY IMPRESSION: Normal enhanced CT of the abdomen and pelvis. Electronically Signed: Yao Bonner MD at 16:44 EDT ,
--- NOTE | 2022-04-16 15:07 | EX.ED.DYSGE1 ---
HPI History of Present Illness Chief Complaint: GI Bleed Informant: patient Onset/Context/Timing Onset: Yesterday Current Severity: Mild Maximum Severity: Mild Narrative Narrative: Patient presents secondary to rectal bleeding. He was seen in the ER 2 days ago after falling approximately 25 feet from a tree. He landed on his feet and rolled to his back. He had x-ray of his pelvis as well as CT scan of his lumbar spine in addition to other imaging studies. Patient states yesterday he started noticing blood on the toilet paper when he would wipe after a bowel movement. He did not really notice blood mixed with the stool. [facility] Medical History Epilepsy High cholesterol Sciatica Home Medications omeprazole 20 mg capsule,delayed release 40 mg PO DAILY 03/23/22 [History Last Taken Unknown] cyclobenzaprine 10 mg tablet 10 mg PO BID PRN muscle spasm #10 tabs 04/02/22 [Rx Last Taken Unknown] gabapentin 300 mg capsule 300 mg PO 4X/DAY 04/02/22 [History Last Taken Unknown] naproxen 500 mg tablet 500 mg PO BID #14 tabs 04/02/22 [Rx Last Taken Unknown] oxycodone-acetaminophen 5 mg-325 mg tablet (Percocet) 1 tab PO Q6H PRN pain 3 days #10 tabs 04/16/22 [Rx Last Taken Unknown] Allergy/AdvReac Type Severity Reaction Status Date / Time acetaminophen [From Vicodin] Allergy Itching Verified 04/16/22 14:45 hydrocodone [From [place]] AdvReac Upset Verified 04/16/22 14:45 Stomach ibuprofen AdvReac Upset Verified 04/16/22 14:45 Stomach ketorolac [From Toradol] AdvReac Rash Verified 04/16/22 14:45 naproxen AdvReac Rash Verified 04/16/22 14:45 tramadol AdvReac Upset Verified 04/16/22 14:45 Stomach Surgical History S/P clamping of cerebral aneurysm Social History Smoking Status: Current every day smoker tobacco type: cigarettes ROS ROS ED Constitutional Constitutional ED: Denies chills or fever(s) Eyes Eyes: Denies change in vision or discharge from eye(s) ENT ENT ED: Denies discharge from eye(s), rhinorrhea or sore throat Cardiovascular Cardiovascular: Denies chest pain or palpitations Respiratory/Chest Respiratory/Chest: Denies cough or dyspnea Gastrointestinal Gastrointestinal: Reports abdominal pain and other Details: Blood per rectum ; Denies diarrhea, nausea or vomiting Genitourinary Genitourinary ED: Denies difficulty urinating or dysuria Musculoskeletal Musculoskeletal: Reports arthralgias, back pain and extremity pain Integumentary Denies Abrasions or rash Neurologic Neurologic: Denies headache(s) or weakness Allergic/Immunologic Allergic/Immunologic ED: Denies lip swelling or urticaria EXAM Physical Exam Const Vital Signs: 04/16/22 14:42 04/16/22 17:09 Temperature 98.4 F Temperature Source Temporal Pulse Rate 74 87 Respiratory Rate 14 16 Blood Pressure 122/80 H 124/79 H Blood Pressure Mean 94 94 Pulse Ox 100 99 Oxygen Delivery Method Room Air Positive well nourished and well developed General Appearance ED: well developed HEENT Reports normocephalic and head/scalp atraumatic Eyes PERRL and EOMs intact bilaterally Neck supple Chest Wall inspection of chest normal and palpation of chest normal Resp normal respiratory effort and clear to auscultation bilaterally Cardio regular rate and regular rhythm GI normal to inspection, nondistended, normoactive bowel sounds and non-tender Palpation: soft Extremity normal to inspection Neuro oriented x3 and no sensory deficits noted Sensorium / Orientation: alert Motor Exam: strength 5/5 throughout Psych Mood & Affect: anxious Skin no rashes or lesions noted MDM MDM MDM Narrative Medical decision making narrative: Lab work obtained. CT scan of the abdomen pelvis with IV contrast ordered. Lab Data Attestation: I reviewed the patient's lab results. Labs: Laboratory Results - last 24 hr 04/16/22 04/16/22 04/16/22 15:22 15:22 15:22 WBC 6.3 RBC 4.82 Hgb 14.1 Hct 43.6 MCV 90.5 MCH 29.3 MCHC 32.3 RDW Std Deviation 46.5 H RDW Coeff of Jerry 14.0 Plt Count 301 MPV 8.6 Immature Gran % (Auto) 0.200 Neut % (Auto) 60.6 Lymph % (Auto) 26.5 [place] % (Auto) 10.8 H Eos % (Auto) 1.4 Baso % (Auto) 0.5 Absolute Neuts (auto) 3.8 Absolute Lymphs (auto) 1.66 Nucleated RBC % 0 PT 12.7 INR 1.0 APTT 26.6 Sodium 139 Potassium 4.0 Chloride 106 Carbon Dioxide 28.0 Anion Gap 5 BUN 13 Creatinine 1.21 Estim Creat Clear Calc 59.33 Est GFR (MDRD) Af Amer 77 Est GFR (MDRD) Non-Af 64 BUN/Creatinine Ratio 10.7 Glucose 90 Calcium 9.2 Total Bilirubin 0.70 Direct Bilirubin 0.15 AST 11 L ALT 20 Alkaline Phosphatase 80 Total Protein 7.2 Albumin 3.5 Globulin 3.7 Radiography Diagnostic Testing: Clinical Impression(s) from Imaging Studies Abdomen/Pelvis CT 04/16/22 15:05 IMPRESSION: Normal enhanced CT of the abdomen and pelvis. Electronically Signed: Yao Bonner MD at 16:44 EDT , ADDENDUM: 04/16/22 1709 IMPRESSION: undefined Treatment and Re-Evaluation Narrative: Lab work is unremarkable. Hemoglobin is higher now than it was 2 days ago when he was seen. Coags are normal. Chemistry studies unremarkable. CT scan is read as no acute abnormality. It did appear that there was an abnormality noted in the scrotum. We asked for an addendum and he feels this is likely a scrotal hydrocele. Patient states he noted this swelling after his fall 2 days ago. I did recommend supportive underwear for light compression. On rectal examination he does have a large external hemorrhoid with a scant amount of blood on it. I feel this is the source of his bleeding. He is reassured with the work-up. I will write him for some Percocet. I recommended [id number] hemorrhoid cream to help. Return instructions given. Discharge Plan Triage Chief Complaint: GI Bleed ED Provider: Zakiya Wong Dx/Rx/DC Orders Clinical Impression: Bleeding external hemorrhoids Instructions: ED Hemorrhoids Prescriptions: New oxycodone-acetaminophen [Percocet] 5-325 mg tablet 1 tab PO Q6H PRN (Reason: pain) 3 Days Qty: 10 0RF No Action omeprazole 20 mg capsule,delayed release(DR/EC) 40 mg PO DAILY Label Comments: TAKE 1 CAPSULE BY MOUTH EVERY DAY IN THE MORNING BEFORE BREAKFAST gabapentin 300 mg capsule 300 mg PO 4X/DAY cyclobenzaprine 10 mg tablet 10 mg PO BID PRN (Reason: muscle spasm) Qty: 10 0RF naproxen 500 MG tablet 500 mg PO BID Qty: 14 0RF Primary Care Provider: Jefferson Gregorio Referrals: Jefferson Gregorio DO [Primary Care Provider] - 1 Week Disposition Disposition: Home, Self Care
[2022-04-16] MEDS: 0.9% Normal Saline 1,000 ML 150 ML IV (15:27)
[2022-04-16 15:28] LABS: Absolute Lymphocyte Count 1.66 X10^3/uL (0.83-4.51); Absolute Neutrophil Count 3.8 X10^3/uL (2.0-7.7); Basophil# 0.03 X10^3/uL; Basophil% 0.5 % (0-1); Eosinophil# 0.09 X10^3/uL; Eosinophils% 1.4 % (0-5); Hematocrit 43.6 % (40-54); Hemoglobin 14.1 g/dL (13.0-16.5); Lymphocyte # 1.66 X10^3/ul (0.83-4.51); Lymphocyte % 26.5 % (19-41); Mean Corp Hgb Conc 32.3 g/dL (32-36); Mean Corpuscular Hgb 29.3 pg (27.0-32.0); Mean Corpuscular Volume 90.5 fL (80-94); Mean Platelet Vol. 8.6 fl (6.2-12.0); Monocyte# 0.68 X10^3/uL; Monocyte% 10.8 % (0-10); NRBC Flagged by Analyzer 0 % (0-5); Neutrophil % 60.6 % (47-70); Platelet Count 301 K/mm3 (150-450); RBC Distribution Width SD 46.5 fl (35.1-43.9); Red Blood Count 4.82 M/mm3 (4.6-6.2); White Blood Count 6.3 K/mm3 (4.4-11.0)
[2022-04-16 15:46] LABS: AST(SGOT) 11 U/L (15-37); Alanine Aminotransfer ALT/SGPT 20 U/L (16-61); Albumin, Serum 3.5 g/dL (3.2-5.0); Alkaline Phosphatase 80 U/L (45-117); Anion Gap 5 (5-15); BUN 13 mg/dL (7-18); BUN/Creat Ratio 10.7 RATIO (10-20); Bilirubin, Direct 0.15 mg/dL (0.00-0.30); Calcium,Total 9.2 mg/dL (8.5-10.1); Chloride 106 mmol/L (98-107); Creatinine, Serum 1.21 mg/dL (0.70-1.30); EST Glomerular Filtration Rate 64 mL/min (>60); Est Glom Filt Rate - Afr Amer 77 mL/min (>60); Estimated Creatinine Clearance 59.33 ml/min; Globulin 3.7 g/dL (2.2-4.2); Glucose 90 mg/dL (74-106); Protein, Total 7.2 g/dL (6.4-8.2); Sodium Level 139 mmol/L (136-145)
[2022-04-16 15:50] LABS: Partial Thromboplast Time 26.6 Seconds (24.1-36.2); Prothrombin Time (Protime)PT. 12.7 SECONDS (11.7-14.9)
[2022-04-16] MEDS: Morphine 4 MG/ML Syringe IV (15:52)
[2022-04-16] MEDS: Ondansetron 4 MG/2 ML Vial IV (15:53)
[2022-04-16 17:09] VITALS: BP 124/79; PULSE 87; RESP 16; O2SAT 99
== END 2022-04-16 17:38 | disposition home or self-care (01) ==
PROVIDERS: Emergency Provider Emergency Medicine; PCP Student in an Organized Health Care Education/Training Program; Visit Provider Emergency Medicine
DX: K64.4 Residual hemorrhoidal skin tags (principal); G40.909 Epilepsy, unspecified, not intractable, without status epilepticus; E78.00 Pure hypercholesterolemia, unspecified; Z79.899 Other long term (current) drug therapy; F17.210 Nicotine dependence, cigarettes, uncomplicated; N50.89 Other specified disorders of the male genital organs
CPT/HCPCS: 74177; 80048; 80076; 85025; 85610; 85730; 96361; 96374; 96375; 99284; Q9967; J2405

== ENCOUNTER 2022-04-24 18:05 | Emergency (ER) | payer MEDICAID, SELFPAY ==
[2022-04-24 18:06] VITALS: BP 142/77; PULSE 69; RESP 18; TEMP 36.3; O2SAT 99; BMI 21.5
[2022-04-24 18:08] VITALS: BP 142/77; PULSE 69; RESP 16; TEMP 36.3; O2SAT 99
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
[2022-04-24] MEDS: morphine 8 MG/ML Syringe IV (18:30)
[2022-04-24] MEDS: Ondansetron 4 MG/2 ML Vial IV (18:30)
[2022-04-24] MEDS: diazePAM 2 MG Tablet PO (18:30)
== END 2022-04-24 19:03 | disposition home or self-care (01) ==
PROVIDERS: Emergency Provider Emergency Medicine; PCP Student in an Organized Health Care Education/Training Program; Visit Provider Emergency Medicine
DX: M54.50 Low back pain, unspecified (principal); G40.909 Epilepsy, unspecified, not intractable, without status epilepticus; Z87.891 Personal history of nicotine dependence; E78.00 Pure hypercholesterolemia, unspecified; Z79.899 Other long term (current) drug therapy; W14.XXXA Fall from tree, initial encounter
CPT/HCPCS: 96374; 96375; 99283; A4216; J2405

== ENCOUNTER 2022-04-27 11:07 | Emergency (ER) | payer MEDICAID, SELFPAY ==
[2022-04-27 11:08] VITALS: BP 115/70; PULSE 64; RESP 16; TEMP 36.3; O2SAT 97; BMI 21.4
[2022-04-27 11:24] VITALS: BP 130/87; PULSE 64
--- NOTE | 2022-04-27 11:34 | EX.ED.DYSGE1 ---
HPI <NIKI Bird - Last Filed: 04/27/22 13:32> History of Present Illness Chief Complaint: GI Bleed Narrative Narrative: 67-year-old male presents to the ER with chief complaint of rectal bleeding. States he was here for this previously and has external hemorrhoids. He often has to strain to have a bowel movement about every other time notices a small amount of bright red stringy blood. The stool is medium brown. He was using [id number] cream which has not been helping. He states he cannot get in with his doctor until May. He does not take blood thinners. His secondary complaint is persistent low back and left leg pain after a fall on April 14. Fell from approximately 25 feet up while tree trimming. Had negative work-up here and was prescribed naproxen, Flexeril, and Vicodin. He states he is allergic to Vicodin and could not take it and flush it down the toilet. [facility] <NIKI Bird - Last Filed: 04/27/22 13:32> [facility] Medical History (Updated 04/27/22 @ 12:54 by NIKI Bird) Epilepsy Hemorrhoid High cholesterol Sciatica Home Medications omeprazole 20 mg capsule,delayed release 40 mg PO DAILY 03/23/22 [History Last Taken Unknown] cyclobenzaprine 10 mg tablet 10 mg PO BID PRN muscle spasm #10 tabs 04/02/22 [Rx Last Taken Unknown] gabapentin 300 mg capsule 300 mg PO 4X/DAY 04/02/22 [History Last Taken Unknown] naproxen 500 mg tablet 500 mg PO BID #14 tabs 04/02/22 [Rx Last Taken Unknown] oxycodone-acetaminophen 5 mg-325 mg tablet (Percocet) 1 tab PO Q6H PRN pain 3 days #10 tabs 04/16/22 [Rx Last Taken Unknown] hydrocodone-acetaminophen 5-325mg 5mg-325mg 1 tab PO Q6H PRN PRN Pain 3 days #10 TABLETS 04/24/22 [Rx Last Taken Unknown] hydrocortisone acetate 25 mg rectal suppository (Anusol-HC) 25 mg [place] QHS #12 ea 04/27/22 [Rx Last Taken Unknown] polyethylene glycol 3350 17 gram/dose oral powder (Miralax) 17 g PO DAILY #119 grams 04/27/22 [Rx Last Taken Unknown] Allergy/AdvReac Type Severity Reaction Status Date / Time hydrocodone [From [place]] AdvReac Upset Verified 04/27/22 11:08 Stomach ibuprofen AdvReac Upset Verified 04/27/22 11:08 Stomach ketorolac [From Toradol] AdvReac Rash Verified 04/27/22 11:08 naproxen AdvReac Rash Verified 04/27/22 11:08 tramadol AdvReac Upset Verified 04/27/22 11:08 Stomach Surgical History S/P clamping of cerebral aneurysm Social History (Updated 04/24/22 @ 18:[address] Chapo Silva MD) household members: significant other Smoking Status: Former smoker alcohol intake: former substance use type: does not use EXAM <NIKI Bird - Last Filed: 04/27/22 13:32> Physical Exam Narrative Exam Narrative: CONST: Patient sitting in no acute distress. EYES: Normal inspection. ENT: Normal inspection, moist mucous membranes. NECK: Normal inspection. RESP: No respiratory distress, CTAB. CVS: Regular rate and rhythm, no murmur, no gallop. ABD: Soft and nontender, no guarding or rebound, nondistended. MEENA: Large external hemorrhoid, nonthrombosed, no active bleeding. Back: Normal inspection, no CVA tenderness. SKIN: Color normal, no rash, warm, dry, intact. EXTREMITIES: Normal appearance, no pedal edema. NEURO: Oriented x4. PSYCH: Normal affect. Const Vital Signs: 04/27/22 11:08 04/27/22 11:24 Temperature 97.3 F L Temperature Source Temporal Pulse Rate 64 64 Respiratory Rate 16 Blood Pressure 115/70 130/87 H Blood Pressure Mean 85 101 Pulse Ox 97 Oxygen Delivery Method Room Air <Dr. Nicolás Rojas DO - Last Filed: 04/27/22 13:34> Physical Exam Const Vital Signs: 04/27/22 11:08 04/27/22 11:24 Temperature 97.3 F L Temperature Source Temporal Pulse Rate 64 64 Respiratory Rate 16 Blood Pressure 115/70 130/87 H Blood Pressure Mean 85 101 Pulse Ox 97 Oxygen Delivery Method Room Air MDM <NIKI Bird - Last Filed: 04/27/22 13:32> MDM MDM Narrative Medical decision making narrative: Patient presents with intermittent rectal bleeding with bowel movements and has a known history of hemorrhoids. There is no blood in his stool no abdominal pain. He is not take aspirin or blood thinners. He appears well and nontoxic. Vital signs are within normal limits. Abdomen is soft, nontender. Rectal exam shows moderate sized external hemorrhoid that is nonthrombosed and not bleeding. He had recent normal CBC I do not feel emergent work-up is indicated as it was only small amount of blood and is intermittent. I prescribed MiraLAX and Anusol suppositories. He also secondarily wanted evaluated for pain in his low back from a fall that occurred on April 14. He had fallen from a tree approximately 20 feet up. He was seen here and had a trauma work-up with CT of the brain, C/T/L-spine, CT abdomen/pelvis and XR of the pelvis that were all negative on 04/14. Patient is saying he still has pain and was given oxycodone while in the ED. Has had been prescribed multiple narcotic prescriptions. On 03/26 received #[address] Nawaf Toussaint, 04/16 #[address] Blount, then #[address] Silva on 04/25. He states he is allergic to this and flushed down the toilet. However, since he is filled multiple recent prescriptions it is not appropriate to give anymore from the ER. He needs to follow-up with his primary care doctor. Patient was discharged in stable condition. 1. Rectal bleeding from hemorrhoids 2. Low back pain <Dr. Nicolás Rojas, DO - Last Filed: 04/27/22 13:34> [facility] Narrative Medical decision making narrative: Patient had CT of the brain, C/T/L-spine, and abdomen/pelvis and XR of the pelvis that were all negative on 04/14. Patient has had multiple narcotic prescriptions. On 03/26 received #[address] Nawaf Toussaint, 04/16 #[address] Wong, then #[address] Silva on 04/25. Treatment and Re-Evaluation Narrative: I have personally performed a face to face assessment of the patient and have reviewed the JOSE D Note. I performed a substantive portion of the visit including all aspects of the following. My clark findings include: History: Patient is a 67-year-old male who presents with rectal bleeding. Patient states this has been ongoing for the past several days. Patient states that every other bowel movement has blood in it. Patient was seen here for this and diagnosed with hemorrhoids. Patient denies any abdominal pain. Patient denies any nausea or vomiting. Patient also states that he fell out of a tree 3 days ago. Patient was seen here after this. Patient had CT scans and x-rays done at that time which were negative. Patient was given a prescription for Vicodin. Patient states he filled the prescription for Vicodin but then realized he was allergic to it. Patient states that he flushed them down the toilet. Patient is complaining of persistent pain in his lower back and posterior aspect of his left hip. Patient denies any new trauma or injury. Exam: Vital signs are stable. Patient is afebrile. Patient is in no acute distress. Oral mucosa is pink and moist. Neck is supple. Trachea is midline. There is no JVD. Heart was regular rate and rhythm. Lungs are clear and equal bilaterally. Abdomen is soft. Bowel sounds are normal. There is no tenderness. Cranial nerves II through XII are intact. There are no focal motor or sensory deficits noted. There is tenderness over the posterior aspect of the left lumbar paraspinal muscles and posterior left hip. There is no obvious deformity. There is no bony crepitance or step-off. Range of motion was limited in all motions of the lumbar spine and left hip secondary to pain. Medical Decision Making: Patient was given a dose of oxycodone here. Patient was instructed to use ice to the area. Patient was instructed to follow-up with his primary care physician in 5 to 7 days for reevaluation. Patient was given a prescription for Anusol suppositories. Patient understood and was agreeable with the plan. All questions were answered. Discharge Plan Triage Chief Complaint: GI Bleed ED Midlevel Provider: Irene Franks ED Provider: Nicolás Rojas Dx/Rx/DC Orders Clinical Impression: Acute hemorrhoid Instructions: ED Hemorrhoids Prescriptions: New polyethylene glycol 3350 [Miralax] 17 gram/dose powder 17 g PO DAILY Qty: 119 0RF Rx Instructions: 1 cap per day hydrocortisone acetate [Anusol-HC] 25 mg suppository 25 mg MO QHS Qty: 12 0RF No Action omeprazole 20 mg capsule,delayed release(DR/EC) 40 mg PO DAILY Label Comments: TAKE 1 CAPSULE BY MOUTH EVERY DAY IN THE MORNING BEFORE BREAKFAST gabapentin 300 mg capsule 300 mg PO 4X/DAY cyclobenzaprine 10 mg tablet 10 mg PO BID PRN (Reason: muscle spasm) Qty: 10 0RF naproxen 500 MG tablet 500 mg PO BID Qty: 14 0RF oxycodone-acetaminophen [Percocet] 5-325 mg tablet 1 tab PO Q6H PRN (Reason: pain) 3 Days Qty: 10 0RF hydrocodone-acetaminophen [hydrocodone-acetaminophen] 5-325 mg tablet 1 tab PO Q6H PRN PRN (Reason: Pain) 3 Days Qty: 10 0RF Primary Care Provider: Jefferson Gregorio Referrals: Jefferson Gregorio DO [Primary Care Provider] - Activity Restrictions/Additional Instructions: Take miralax daily which is a stool softener. I also prescribed Anusol suppositories for the hemorrhoids. You can take sitz bath several times a day. Regarding your pain from your fall, you have had several narcotic prescriptions from the ER so we cannot write anymore. You need to call your primary care doctor. Disposition Disposition: Home, Self Care
[2022-04-27] MEDS: oxyCODONE 5 MG Tablet PO (11:49)
[2022-04-27] MEDS: Ibuprofen 600 MG Tablet PO (13:34)
== END 2022-04-27 13:39 | disposition home or self-care (01) ==
LOC: ED 13:30
PROVIDERS: Emergency Provider Emergency Medicine; PCP Student in an Organized Health Care Education/Training Program; Visit Provider Emergency Medicine
DX: K64.4 Residual hemorrhoidal skin tags (principal); G40.909 Epilepsy, unspecified, not intractable, without status epilepticus; Z87.891 Personal history of nicotine dependence; E78.00 Pure hypercholesterolemia, unspecified; Z79.899 Other long term (current) drug therapy; M54.50 Low back pain, unspecified; W14.XXXA Fall from tree, initial encounter
CPT/HCPCS: 99284; A4216

== ENCOUNTER 2022-08-04 12:41 | Emergency (ER) | payer MEDICAID, SELFPAY ==
[2022-08-04 12:42] VITALS: BP 115/83; PULSE 74; RESP 14; TEMP 36.1; O2SAT 98; BMI 22.1
[2022-08-04 12:59] VITALS: BP 125/86; PULSE 69; RESP 17; O2SAT 99
--- NOTE | 2022-08-04 13:15 | EDS_ITS ---
HPI History of Present Illness Chief Complaint: Allergic Reaction Informant: patient Onset/Context/Timing Onset: Today Context: Sudden Onset Timing: Continuous Quality: Swelling Location: Jaw Worsened by: Swallowing Relieved by: Nothing Narrative Narrative: Patient presents with pain and swelling in his mouth that began today. Patient states he was stung by a bee in his mouth. Patient states that he was drinking some soda when a bee was in the soda. Patient did not notice to be and when he took a drink he was stung by the bee in his mouth. Patient admits to some mild difficulty swallowing and slight difficulty breathing. Patient denies any fevers or chills. Patient denies any chest pain. [facility] Medical History Epilepsy Hemorrhoid High cholesterol Sciatica Home Medications omeprazole 20 mg capsule,delayed release 40 mg PO DAILY 03/23/22 [History Last Taken Unknown] cyclobenzaprine 10 mg tablet 10 mg PO BID PRN muscle spasm #10 tabs 04/02/22 [Rx Last Taken Unknown] gabapentin 300 mg capsule 300 mg PO 4X/DAY 04/02/22 [History Last Taken Unknown] naproxen 500 mg tablet 500 mg PO BID #14 tabs 04/02/22 [Rx Last Taken Unknown] oxycodone-acetaminophen 5 mg-325 mg tablet (Percocet) 1 tab PO Q6H PRN pain 3 days #10 tabs 04/16/22 [Rx Last Taken Unknown] hydrocodone-acetaminophen 5-325mg 5mg-325mg 1 tab PO Q6H PRN PRN Pain 3 days #10 TABLETS 04/24/22 [Rx Last Taken Unknown] hydrocortisone acetate 25 mg rectal suppository (Anusol-HC) 25 mg [place] QHS #12 ea 04/27/22 [Rx Last Taken Unknown] polyethylene glycol 3350 17 gram/dose oral powder (Miralax) 17 g PO DAILY #119 grams 04/27/22 [Rx Last Taken Unknown] Allergy/AdvReac Type Severity Reaction Status Date / Time hydrocodone [From [place]] AdvReac Upset Verified 08/04/22 12:42 Stomach ibuprofen AdvReac Upset Verified 08/04/22 12:42 Stomach ketorolac [From Toradol] AdvReac Rash Verified 08/04/22 12:42 naproxen AdvReac Rash Verified 08/04/22 12:42 tramadol AdvReac Upset Verified 08/04/22 12:42 Stomach Surgical History S/P clamping of cerebral aneurysm Social History household members: significant other Smoking Status: Former smoker alcohol intake: former substance use type: does not use ROS ROS ED Constitutional Constitutional ED: Denies chills or fever(s) Eyes Eyes: Denies blurry vision or change in vision ENT ENT ED: Reports sore throat; Denies rhinorrhea Cardiovascular Cardiovascular: Denies chest pain or palpitations Respiratory/Chest Respiratory/Chest: Reports dyspnea; Denies cough Gastrointestinal Gastrointestinal: Denies nausea or vomiting Genitourinary Genitourinary ED: Denies dysuria or hematuria Musculoskeletal Musculoskeletal: Reports neck pain; Denies back pain Integumentary Denies abscess or rash Neurologic Neurologic: Denies headache(s) or weakness Allergic/Immunologic Allergic/Immunologic ED: Denies mouth swelling or urticaria EXAM Physical Exam Const Vital Signs: 08/04/22 12:42 08/04/22 12:59 08/04/22 13:36 Temperature 97 F L Temperature Source Temporal Pulse Rate 74 69 55 L Respiratory Rate 14 17 16 Blood Pressure 115/83 H 125/86 H 122/82 H Blood Pressure Mean 93 99 95 Pulse Ox 98 99 96 Oxygen Delivery Method Room Air Room Air Room Air 08/04/22 14:02 08/04/22 15:20 Temperature Temperature Source Pulse Rate 54 L 65 Respiratory Rate 20 H 17 Blood Pressure 122/82 H 123/81 H Blood Pressure Mean 95 95 Pulse Ox 97 97 Oxygen Delivery Method Room Air Room Air Positive well nourished and well developed General Appearance ED: well developed HEENT Reports moist mucous membranes HEENT Narrative: Oropharynx is clear. Airway is patent. There is no oropharyngeal edema noted. Neck no lymphadenopathy, supple and no JVD General: Negative for tenderness Resp normal respiratory effort and clear to auscultation bilaterally Cardio regular rate, regular rhythm and no murmurs GI normal to inspection, nondistended, normoactive bowel sounds and non-tender Palpation: soft Extremity normal to inspection General Extremety ED: Negative for edema or tenderness General Extremity: Negative for edema Neuro oriented x3, CN's II-XII intact bilaterally and no sensory deficits noted Sensorium / Orientation: alert Motor Exam: strength 5/5 throughout Psych mental status grossly normal Skin no rashes or lesions noted MDM MDM MDM Narrative Medical decision making narrative: Patient was given Solu-Medrol and Benadryl here. Patient states that the swelling feels better but he still has pain in his throat. Patient was given a GI cocktail. Patient feels better after this. Patient was instructed to take Benadryl as needed for any itching or swelling. Patient was instructed to follow-up with his primary care physician in 5 to 7 days. Patient understood and was agreeable with the plan. All questions were answered. Discharge Plan Triage Chief Complaint: Allergic Reaction ED Provider: Nicolás Rojas Dx/Rx/DC Orders Clinical Impression: Local reaction to hymenoptera sting Instructions: ED Insect Sting, Local Reaction Prescriptions: No Action omeprazole 20 mg capsule,delayed release(DR/EC) 40 mg PO DAILY Label Comments: TAKE 1 CAPSULE BY MOUTH EVERY DAY IN THE MORNING BEFORE BREAKFAST gabapentin 300 mg capsule 300 mg PO 4X/DAY cyclobenzaprine 10 mg tablet 10 mg PO BID PRN (Reason: muscle spasm) Qty: 10 0RF naproxen 500 MG tablet 500 mg PO BID Qty: 14 0RF oxycodone-acetaminophen [Percocet] 5-325 mg tablet 1 tab PO Q6H PRN (Reason: pain) 3 Days Qty: 10 0RF hydrocodone-acetaminophen [hydrocodone-acetaminophen] 5-325 mg tablet 1 tab PO Q6H PRN PRN (Reason: Pain) 3 Days Qty: 10 0RF polyethylene glycol 3350 [Miralax] 17 gram/dose powder 17 g PO DAILY Qty: 119 0RF Rx Instructions: 1 cap per day hydrocortisone acetate [Anusol-HC] 25 mg suppository 25 mg [place] QHS Qty: 12 0RF Primary Care Provider: Jefferson Gregorio Referrals: Jefferson Gregorio DO [Primary Care Provider] - 3-5 Days Disposition Disposition: Home, Self Care
[2022-08-04] MEDS: DiphenhydrAMINE 50 MG/ML Syringe 25 MG IV (13:30)
[2022-08-04] MEDS: MethylPREDNISolone 125 MG/2 ML Vial 60 MG IV (13:30)
[2022-08-04 13:36] VITALS: BP 122/82; PULSE 55; RESP 16; O2SAT 96
[2022-08-04 14:02] VITALS: BP 122/82; PULSE 54; RESP 20; O2SAT 97
[2022-08-04] MEDS: Mag Hydrox/Al Hydrox/Simeth 30 ML UDC PO (15:18)
[2022-08-04 15:20] VITALS: BP 123/81; PULSE 65; RESP 17; O2SAT 97
== END 2022-08-04 15:52 | disposition home or self-care (01) ==
PROVIDERS: Emergency Provider Emergency Medicine; PCP Student in an Organized Health Care Education/Training Program; Visit Provider Emergency Medicine
DX: T63.444A Toxic effect of venom of bees, undetermined, initial encounter (principal); G40.909 Epilepsy, unspecified, not intractable, without status epilepticus; Z79.899 Other long term (current) drug therapy; Z87.891 Personal history of nicotine dependence
CPT/HCPCS: 96374; 96375; 99284

== ENCOUNTER 2022-08-12 09:15 | Emergency (ER) | payer MEDICAID, SELFPAY ==
[2022-08-12 09:18] VITALS: BP 114/76; PULSE 100; RESP 18; TEMP 36.5; O2SAT 99; BMI 21.9
--- NOTE | 2022-08-12 09:38 | CT_ITS ---
STUDY: CT ABDOMEN AND PELVIS WITHOUT CONTRAST REASON FOR EXAM: Male, 67 years old. Kidney Stone RADIATION DOSAGE (If Supplied By Facility): CTDIvol = ( 6.25 ) mGy, DLP = ( 291.97 ) mGycm TECHNIQUE: Transaxial images were obtained from the dome of the diaphragm to the symphysis pubis without oral contrast, and without intravenous contrast. Sagittal and coronal images were reconstructed. Individualized dose optimization techniques were used for this CT. COMPARISON: 04/16/2022. FINDINGS: The visualized lung bases demonstrate calcified granuloma in the lingula. The visualized portions of the heart are within normal limits. Borderline to mild hepatomegaly. Normal gallbladder and extrahepatic biliary system. There are multiple benign calcified granulomata of the spleen. The dome of the spleen is not included on this exam. The pancreas as visualized appears unremarkable. Normal bilateral adrenal glands. 1.8 cm cyst in the upper pole of the right kidney. 1 to 2 mm nonobstructing stone in the lower pole of the left kidney. No evidence of hydronephrosis. Normal visualized stomach. Nonspecific fluid-filled small bowel loops. No evidence of bowel obstruction. Colonic diverticulosis without evidence of acute diverticulitis. The appendix is visualized and appears normal. There is diffuse atherosclerotic calcification of the abdominal aorta, without a demonstrated aneurysm. Normal inferior vena cava. Normal retroperitoneum. Normal urinary bladder. Slightly prominent prostate. Partially visualized fluid/scrotal hydrocele is again seen. Normal abdominal wall. Degenerative changes in the spine. CT/Abdomen/Pelvis without Cont IMPRESSION: 1. Tiny nonobstructing stone in the right kidney without evidence of hydronephrosis. No evidence of ureteral stones. 2. Nonspecific fluid-filled small bowel loops. No evidence of bowel obstruction. 3. Otherwise no focal acute inflammatory process. 4. Small retrolisthesis. 5. Scrotal hydrocele. 6. Slightly prominent prostate.. Electronically Signed: Wesley Hunt MD at 10:30 EDT ,
--- NOTE | 2022-08-12 09:39 | EX.ED.GUMALE ---
HPI History of Present Illness Chief Complaint: Flank Pain Narrative Narrative: 67-year-old male presenting with left flank pain. He states it he was seen by his primary care doctor about 7 to 10 days ago for similar pain. He states the pain is worsening. He was initially put on Percocet and his primary care physician was trying to obtain an outpatient CT however he is awaiting this. He states that he did have his urine checked and there was blood in his urine. There was no evidence of infection. Patient was seen again and put on oxycodone he states this is not helping. Patient has no history of kidney stones. He does not have a urologist. Denies fever or chills. He has nausea associated with this flank pain. He does have dysuria. PFSH PFSH Medical History Epilepsy Hemorrhoid High cholesterol Sciatica Home Medications omeprazole 20 mg capsule,delayed release 40 mg PO DAILY 03/23/22 [History Last Taken Unknown] gabapentin 300 mg capsule 300 mg PO 4X/DAY 04/02/22 [History Last Taken Unknown] oxycodone-acetaminophen 5 mg-325 mg tablet (Percocet) 1 tab PO Q6H PRN pain 3 days #10 tabs 04/16/22 [Rx Last Taken Unknown] hydrocortisone acetate 25 mg rectal suppository (Anusol-HC) 25 mg MO QHS #12 ea 04/27/22 [Rx Last Taken Unknown] polyethylene glycol 3350 17 gram/dose oral powder (Miralax) 17 g PO DAILY #119 grams 04/27/22 [Rx Last Taken Unknown] Allergy/AdvReac Type Severity Reaction Status Date / Time hydrocodone [From [place]] AdvReac Upset Verified 08/12/22 09:18 Stomach ibuprofen AdvReac Upset Verified 08/12/22 09:18 Stomach ketorolac [From Toradol] AdvReac Rash Verified 08/12/22 09:18 naproxen AdvReac Rash Verified 08/12/22 09:18 tramadol AdvReac Upset Verified 08/12/22 09:18 Stomach Surgical History S/P clamping of cerebral aneurysm Social History household members: significant other Smoking Status: Former smoker alcohol intake: former substance use type: does not use ROS ROS ED Constitutional Constitutional ED: Denies chills or fever(s) Eyes Eyes: Denies change in vision ENT ENT ED: Denies rhinorrhea or sore throat Cardiovascular Cardiovascular: Denies chest pain or palpitations Respiratory/Chest Respiratory/Chest: Denies cough or dyspnea Gastrointestinal Gastrointestinal: Reports abdominal pain and nausea Genitourinary Genitourinary ED: Reports dysuria and hematuria Musculoskeletal Musculoskeletal: Reports back pain; Denies arthralgias Integumentary Denies abscess Neurologic Neurologic: Denies headache(s) or paresthesias Psychiatric Psychiatric: Denies anxiety or depression EXAM Physical Exam Const Vital Signs: 08/12/22 09:18 08/12/22 10:20 08/12/22 11:26 Temperature 97.7 F L Temperature Source Temporal Pulse Rate 100 58 L Respiratory Rate 18 16 Blood Pressure 114/76 143/86 H 136/94 H Blood Pressure Mean 88 105 108 Pulse Ox 99 100 Oxygen Delivery Method Room Air Room Air Positive well nourished General Appearance ED: NAD; Negative for pallor HEENT Reports moist mucous membranes atraumatic Eyes PERRL and EOMs intact bilaterally General Eye ED: Negative for pale conjunctiva or scleral icterus Resp normal respiratory effort and clear to auscultation bilaterally Cardio regular rate and regular rhythm GI GI Narrative: Mild left lower quadrant tenderness to palpation. Soft. No peritoneal signs. Back/Spine General Back: CVA tenderness left Neuro oriented x3 and CN's II-XII intact bilaterally Sensorium / Orientation: alert Motor Exam: strength 5/5 throughout Psych mental status grossly normal Skin General Skin Exam: Negative for jaundice or pallor MDM MDM MDM Narrative Medical decision making narrative: Patient presents with left flank pain and concern for kidney stone on the left. He states he had a urinalysis and dysuria with occult blood in his urine at the primary care physician's office. He was unable to obtain a CT. Blood work is obtained today and his CBC is within normal limits. Creatinine slightly elevated at 1.33 with a baseline 1.22. Electrolytes within normal limits. Urinalysis shows some occult blood in the urine without evidence of infection. Patient initially treated with morphine and Zofran however he did require another dose of Dilaudid. I obtained a CT of the abdomen pelvis without contrast and there is no evidence of an obstructing stone on the left. There is nonobstructing right sided stone. He does not have any pain here. No hydroureter or hydronephrosis on the left. Patient initially told me he was out of his pain medication but after checking his [place] report I noted to him that he should still have Percocet left over because he got a 30-day supply of 5/325's on 01 August and an additional 12 oxycodone 5 mg on . He states he is out of the oxycodone but still has Percocets at this point. I counseled him that I found nothing abnormal except for mild bump in his creatinine. He does not have evidence of kidney stone. I counseled him that it is possible he could have passed a kidney stone throughout this timeframe and he may still have some residual pain but there is no evidence of infection or anything surgical. I think Percocet would be sufficient to control his pain. I offered him something for nausea and he declines. Patient referred back to his PCP. Return precautions discussed. Impression: 1. Left flank pain 2. Nausea 3. Hematuria Lab Data Attestation: I reviewed the patient's lab results. Labs: Laboratory Results - last 24 hr 08/12/22 08/12/22 08/12/22 09:44 09:44 10:38 WBC 7.1 RBC 4.49 L Hgb 13.5 Hct 40.5 MCV 90.2 MCH 30.1 MCHC 33.3 RDW Std Deviation 43.8 RDW Coeff of Jerry 13.2 Plt Count 347 MPV 8.7 Immature Gran % (Auto) 0.300 Neut % (Auto) 56.6 Lymph % (Auto) 28.8 [place] % (Auto) 9.8 Eos % (Auto) 3.5 Baso % (Auto) 1.0 Absolute Neuts (auto) 4.0 Absolute Lymphs (auto) 2.03 Nucleated RBC % 0 Sodium 136 Potassium 3.5 Chloride 104 Carbon Dioxide 26.0 Anion Gap 6 BUN 23 H Creatinine 1.33 H Estim Creat Clear Calc 55.02 Est GFR (MDRD) Af Amer 69 Est GFR (MDRD) Non-Af 57 L BUN/Creatinine Ratio 17.3 Glucose 88 Calcium 9.1 Urine Color Yellow Urine Clarity Clear Urine pH 6.0 Ur Specific [place] 1.020 Urine Protein Negative Urine Glucose (UA) Normal Urine Ketones Negative Urine Occult Blood 25 H Urine Nitrite Negative Urine Bilirubin Negative Urine Urobilinogen Normal Ur Leukocyte Esterase Negative Urine RBC 0 SEEN Urine WBC 5-10 SEEN Ur Squamous Epith Cells 0 SEEN Urine Bacteria 0 SEEN Urine Mucus 0 SEEN Radiography Diagnostic Testing: Clinical Impression(s) from Imaging Studies Abdomen/Pelvis CT 08/12/22 09:38 IMPRESSION: 1. Tiny nonobstructing stone in the right kidney without evidence of hydronephrosis. No evidence of ureteral stones. 2. Nonspecific fluid-filled small bowel loops. No evidence of bowel obstruction. 3. Otherwise no focal acute inflammatory process. 4. Small retrolisthesis. 5. Scrotal hydrocele. 6. Slightly prominent prostate.. Electronically Signed: Wesley Hunt MD at 10:30 EDT , Discharge Plan Triage Chief Complaint: Flank Pain ED Provider: Mark Sweeney Dx/Rx/DC Orders Instructions: ED Flank Pain, Uncertain Cause Prescriptions: No Action omeprazole 20 mg capsule,delayed release(DR/EC) 40 mg PO DAILY Label Comments: TAKE 1 CAPSULE BY MOUTH EVERY DAY IN THE MORNING BEFORE BREAKFAST gabapentin 300 mg capsule 300 mg PO 4X/DAY oxycodone-acetaminophen [Percocet] 5-325 mg tablet 1 tab PO Q6H PRN (Reason: pain) 3 Days Qty: 10 0RF polyethylene glycol 3350 [Miralax] 17 gram/dose powder 17 g PO DAILY Qty: 119 0RF Rx Instructions: 1 cap per day hydrocortisone acetate [Anusol-HC] 25 mg suppository 25 mg MO QHS Qty: 12 0RF Primary Care Provider: Jefferson Gregorio Referrals: Jefferson Gregorio DO [Primary Care Provider] - Disposition Disposition: Home, Self Care
[2022-08-12] MEDS: Ondansetron 4 MG/2 ML Vial IV (09:42)
[2022-08-12] MEDS: Morphine 4 MG/ML Syringe IV (09:42)
[2022-08-12 10:02] LABS: Absolute Lymphocyte Count 2.03 X10^3/uL (0.83-4.51); Basophil# 0.07 X10^3/uL; Eosinophil# 0.25 X10^3/uL; Eosinophils% 3.5 % (0-5); Hematocrit 40.5 % (40-54); Hemoglobin 13.5 g/dL (13.0-16.5); Lymphocyte # 2.03 X10^3/ul (0.83-4.51); Lymphocyte % 28.8 % (19-41); Mean Corp Hgb Conc 33.3 g/dL (32-36); Mean Corpuscular Hgb 30.1 pg (27.0-32.0); Mean Corpuscular Volume 90.2 fL (80-94); Mean Platelet Vol. 8.7 fl (6.2-12.0); Monocyte# 0.69 X10^3/uL; Monocyte% 9.8 % (0-10); NRBC Flagged by Analyzer 0 % (0-5); Neutrophil % 56.6 % (47-70); Platelet Count 347 K/mm3 (150-450); RBC Distribution Width CV 13.2 % (11.6-14.6); RBC Distribution Width SD 43.8 fl (35.1-43.9); Red Blood Count 4.49 M/mm3 (4.6-6.2); White Blood Count 7.1 K/mm3 (4.4-11.0)
[2022-08-12 10:14] LABS: Anion Gap 6 (5-15); BUN 23 mg/dL (7-18); BUN/Creat Ratio 17.3 RATIO (10-20); Calcium,Total 9.1 mg/dL (8.5-10.1); Chloride 104 mmol/L (98-107); Creatinine, Serum 1.33 mg/dL (0.70-1.30); EST Glomerular Filtration Rate 57 mL/min (>60); Est Glom Filt Rate - Afr Amer 69 mL/min (>60); Estimated Creatinine Clearance 55.02 ml/min; Glucose 88 mg/dL (74-106); Potassium 3.5 mmol/L (3.5-5.1); Sodium Level 136 mmol/L (136-145)
[2022-08-12 10:20] VITALS: BP 143/86
[2022-08-12] MEDS: HYDROmorphone 0.5 MG/0.5 ML SYRINGE IV (10:20)
[2022-08-12 10:45] LABS: Bacteria 0 SEEN /hpf (None Seen); Mucous, Urine 0 SEEN /hpf (<or=2+); Red Blood Cells-Urine 0 SEEN /hpf (0-5); Squamous Epithelial Cells - UA 0 SEEN /hpf (0-5)
[2022-08-12 10:50] LABS: Color, Urine Yellow (Yellow); Glucose, Dipstick Normal (Normal); Ketone-Dipstick Negative (Negative); Leukocyte Esterase-Dipstick Negative /ul (Negative); Nitrite-Dipstick Negative (Negative); Occult Blood-Urine 25 /ul (Negative); Protein-Dipstick Negative (Negative); Urine Bilirubin Dipstick Negative (Negative); Urine Clarity Clear (Clear); Urine Urobilinogen Normal (Normal)
[2022-08-12 10:54] LABS: White Blood Cells 5-10 SEEN /hpf (0-5)
[2022-08-12 11:26] VITALS: BP 136/94; PULSE 58; RESP 16; O2SAT 100
== END 2022-08-12 11:42 | disposition home or self-care (01) ==
PROVIDERS: Emergency Provider Student in an Organized Health Care Education/Training Program; PCP Student in an Organized Health Care Education/Training Program; Visit Provider Student in an Organized Health Care Education/Training Program
DX: R10.9 Unspecified abdominal pain (principal); R11.0 Nausea; R31.9 Hematuria, unspecified; E78.00 Pure hypercholesterolemia, unspecified; R30.0 Dysuria; Z87.891 Personal history of nicotine dependence
CPT/HCPCS: 74176; 80048; 81001; 85025; 96374; 96375; 99282; J7030; A4216; J2405

== ENCOUNTER 2022-09-16 10:54 | Emergency (ER) | payer MEDICAID, SELFPAY ==
[2022-09-16 10:56] VITALS: BP 121/88; PULSE 85; RESP 16; TEMP 36; O2SAT 100; BMI 21.7
--- NOTE | 2022-09-16 11:37 | RAD_ITS ---
STUDY: X-RAY - LUMBAR SPINE REASON FOR EXAM: Male, 67 years old. trauma TECHNIQUE: 2 view(s) of the lumbar spine were obtained. COMPARISON: CT of the abdomen and pelvis dated August 12, 2022 FINDINGS: Normal lumbar lordosis. There is no substantial scoliosis. No visualized fracture or compression deformity. There is multilevel endplate spondylosis of the lumbar vertebrae. There is mild multi-level degenerative disc disease with multi-level disc space narrowing. There is atherosclerotic calcification of the abdominal aorta without a demonstrated aneurysm. RAD/Lumbar Spine 2 or 3 Views IMPRESSION: Degenerative changes of the spine, as detailed above. Electronically Signed: Carl Huff MD at 12:48 EST ,
--- NOTE | 2022-09-16 11:37 | RAD_ITS ---
STUDY: X-RAY - RIGHT SHOULDER REASON FOR EXAM: Male, 67 years old. trauma FELL DOWN 20 STEPS, PAIN TO RIGHT SHOULDER TECHNIQUE: 2 view(s) of the shoulder. COMPARISON: None. 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 The humeral head is high riding abutting the undersurface of the acromium consistent with full-thickness rotator cuff tearing. Normal acromioclavicular joint. Normal acromion. Normal humeral head and visualized proximal humerus. The soft tissue structures are unremarkable. There is no demonstrated fracture. Normal visualized pulmonary apex. RAD/Shoulder min 2 Views IMPRESSION: 1. Severe degenerative changes of the shoulder. Electronically Signed: Carl Huff MD at 12:46 EST ,
--- NOTE | 2022-09-16 11:40 | EX.ED.GENINJ ---
HPI History of Present Illness Chief Complaint: Fall Informant: patient Narrative Narrative: 67-year-old male presenting to the emergency room with a chief complaint of fall. Patient states spent when he slipped and fell on the stairs. He fell approximately 20 steps. He went down on his backside. He notes pain in the right shoulder with limited range of motion. She notes pain in the left buttock and the left hip. He notes pain in the low back. He notes that he did hit his head and has a headache but no reported loss of consciousness. Patient is a poor historian tells me that he was being treated by his doctor for something in his shoulder with something and something in his back with something but is not sure [facility] Medical History Epilepsy Hemorrhoid High cholesterol Sciatica Home Medications omeprazole 20 mg capsule,delayed release 40 mg PO DAILY 03/23/22 [History Last Taken Unknown] gabapentin 300 mg capsule 300 mg PO 4X/DAY 04/02/22 [History Last Taken Unknown] oxycodone-acetaminophen 5 mg-325 mg tablet (Percocet) 1 tab PO Q6H PRN pain 3 days #10 tabs 04/16/22 [Rx Last Taken Unknown] hydrocortisone acetate 25 mg rectal suppository (Anusol-HC) 25 mg [place] QHS #12 ea 04/27/22 [Rx Last Taken Unknown] polyethylene glycol 3350 17 gram/dose oral powder (Miralax) 17 g PO DAILY #119 grams 04/27/22 [Rx Last Taken Unknown] Allergy/AdvReac Type Severity Reaction Status Date / Time adhesive tape [tape] AdvReac Rash Verified 09/16/22 10:55 hydrocodone [From [place]] AdvReac Upset Verified 09/16/22 10:55 Stomach ibuprofen AdvReac Upset Verified 09/16/22 10:55 Stomach ketorolac [From Toradol] AdvReac Rash Verified 09/16/22 10:55 naproxen AdvReac Rash Verified 09/16/22 10:55 tramadol AdvReac Upset Verified 09/16/22 10:55 Stomach Surgical History S/P clamping of cerebral aneurysm Social History household members: significant other Smoking Status: Former smoker alcohol intake: former substance use type: does not use ROS ROS ED Constitutional Constitutional ED: Denies chills or weight loss Eyes Eyes: Denies change in vision or diplopia ENT ENT ED: Denies ear pain, rhinorrhea or sore throat Cardiovascular Cardiovascular: Denies chest pain, orthopnea, palpitations or racing heartbeat Respiratory/Chest Respiratory/Chest: Denies cough, dyspnea or orthopnea Gastrointestinal Gastrointestinal: Denies abdominal pain, diarrhea, nausea or vomiting Genitourinary Genitourinary ED: Denies dysuria, hematuria or urinary frequency Musculoskeletal Musculoskeletal: Reports back pain and other Details: See history of present illness ; Denies arthralgias or myalgias Integumentary Denies abscess or rash Neurologic Neurologic: Reports headache(s); Denies weakness Psychiatric Psychiatric: Denies anxiety, depression, suicidal ideation or suicidal thoughts Endocrine Endocrinology: Denies polydipsia, polyphagia or polyuria Allergic/Immunologic Allergic/Immunologic ED: Denies mouth swelling, tongue swelling or urticaria EXAM Physical Exam Const Vital Signs: 09/16/22 10:56 09/16/22 11:07 09/16/22 12:54 Temperature 96.8 F L Temperature Source Temporal Pulse Rate 85 Respiratory Rate 16 18 Respiratory Effort Normal Non-Labored Respiratory Depth Normal Respiratory Pattern Normal Blood Pressure 121/88 H Blood Pressure Mean 99 Pulse Ox 100 Oxygen Delivery Method Room Air Room Air Positive well nourished and well developed General Appearance ED: well developed and NAD HEENT Reports normocephalic, head/scalp atraumatic and moist mucous membranes Eyes PERRL and EOMs intact bilaterally Neck no lymphadenopathy, supple and no JVD Resp normal respiratory effort and clear to auscultation bilaterally Cardio regular rate, regular rhythm and no murmurs GI normal to inspection, nondistended, normoactive bowel sounds and non-tender Palpation: soft Back/Spine no CVA tenderness Back/Spine Narrative: Patient complains of tenderness to palpation and range of motion in the left lumbar paraspinal musculature. Neurovascular he is intact with no deficits. He has pain upon palpation of the left hip and greater trochanter. Extremity Extremity Narrative: The patient has limited range of motion of the right shoulder. There is no obvious deformity. He complains of most of his tenderness over the lateral aspect of the shoulder but also generally diffuse. General Extremety ED: Negative for edema General Extremity: Negative for edema Neuro oriented x3 and CN's II-XII intact bilaterally Sensorium / Orientation: alert Motor Exam: strength 5/5 throughout Psych mental status grossly normal Mood & Affect: Negative for depressed or tearful Skin no rashes or lesions noted and no wounds MDM MDM MDM Narrative Medical decision making narrative: My impression of the plain films of the right shoulder is no acute fracture. X-rays of the left hip and pelvis and lumbar spine did show degenerative changes. CT the brain demonstrates no intracranial hemorrhage. Patient received a dose of Dilaudid for pain. At this point I think he can be discharged home. Radiography Diagnostic Testing: Clinical Impression(s) from Imaging Studies Lumbar Spine X-Ray 09/16/22 11:37 IMPRESSION: Degenerative changes of the spine, as detailed above. Electronically Signed: Carl Huff MD at 12:48 EST Reading Location ID and State: [email or web address] / [place] , Service support , Shoulder X-Ray 09/16/22 11:37 IMPRESSION: 1. Severe degenerative changes of the shoulder. Electronically Signed: Carl Huff MD at 12:46 EST Reading Location ID and State: [email or web address] / [place] , Service support , Brain CT 09/16/22 11:42 IMPRESSION: 1. 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 No acute skull fracture is present. No visualized acute subdural hematoma or hemorrhagic contusions of the brain parenchyma. Electronically Signed: Carl Huff MD at 12:37 EST , Hip/Pelvis X-Ray 09/16/22 11:45 IMPRESSION: Unremarkable x-ray examination of the pelvis and hip. Electronically Signed: Carl Huff MD at 12:43 EST , Discharge Plan Triage Chief Complaint: Fall ED Provider: Timur Morris Dx/Rx/DC Orders Prescriptions: No Action omeprazole 20 mg capsule,delayed release(DR/EC) 40 mg PO DAILY Label Comments: TAKE 1 CAPSULE BY MOUTH EVERY DAY IN THE MORNING BEFORE BREAKFAST gabapentin 300 mg capsule 300 mg PO 4X/DAY oxycodone-acetaminophen [Percocet] 5-325 mg tablet 1 tab PO Q6H PRN (Reason: pain) 3 Days Qty: 10 0RF polyethylene glycol 3350 [Miralax] 17 gram/dose powder 17 g PO DAILY Qty: 119 0RF Rx Instructions: 1 cap per day hydrocortisone acetate [Anusol-HC] 25 mg suppository 25 mg [place] QHS Qty: 12 0RF Primary Care Provider: Jefferson Gregorio Referrals: Jefferson Gregorio DO [Primary Care Provider] -
--- NOTE | 2022-09-16 11:42 | CT_ITS ---
STUDY: CT BRAIN WITHOUT CONTRAST REASON FOR EXAM: Male, 67 years old. Fell down the stairs. Trauma RADIATION DOSAGE (If Supplied By Facility): CTDIvol = ( 44.99 ) mGy, DLP = ( 829.85 ) mGycm TECHNIQUE: Transaxial CT imaging of the brain was performed without administration of intravenous contrast material. Individualized dose optimization techniques were used for this CT. 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 No acute skull fracture is present. No visualized acute subdural hematoma or hemorrhagic contusions of the brain parenchyma. Normal soft tissue structures. Normal size ventricles and extra-axial spaces for the patient''s age. There are areas of decreased attenuation within the white matter tracts of the supratentorial brain, consistent with microvascular disease changes. Normal basal ganglia and thalami. Normal brainstem. Normal cerebellum. There is no intracranial hemorrhage. There are no findings of an acute ischemic infarction. Normal visualized paranasal sinuses. CT/Brain/Head without Contrast IMPRESSION: 1. 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 No acute skull fracture is present. No visualized acute subdural hematoma or hemorrhagic contusions of the brain parenchyma. Electronically Signed: Carl Huff MD at 12:37 EST ,
[2022-09-16] MEDS: HYDROmorphone 1 MG/ML Syringe IM (11:44)
--- NOTE | 2022-09-16 11:45 | RAD_ITS ---
STUDY: X-RAY - PELVIS AND LEFT HIP REASON FOR EXAM: Male, 67 years old. trauma TECHNIQUE: 3 views of the pelvis and hip. COMPARISON: Pelvic x-ray dated APRIL 14, 2022 FINDINGS: There is a non-specific bowel gas pattern. Normal visualized soft tissue structures. Normal bilateral iliac wings, sacroiliac joints and visualized sacrum. Normal bilateral superior and inferior pubic rami. Normal pubic symphysis. Normal bilateral ischial tuberosities. Normal visualized femoral head. Normal acetabulum. Normal hip joint. No fracture is present. Small soft tissue calcifications noted. RAD/HIP, UNI W/ Pelvis 2-3 Views IMPRESSION: Unremarkable x-ray examination of the pelvis and hip. Electronically Signed: Carl Huff MD at 12:43 EST ,
[2022-09-16 12:54] VITALS: RESP 18
[2022-09-16 13:18] VITALS: RESP 18
== END 2022-09-16 13:30 | disposition home or self-care (01) ==
PROVIDERS: Emergency Provider Emergency Medicine; PCP Student in an Organized Health Care Education/Training Program; Visit Provider Emergency Medicine
DX: M25.552 Pain in left hip (principal); M47.819 Spondylosis without myelopathy or radiculopathy, site unspecified; E78.00 Pure hypercholesterolemia, unspecified; M25.511 Pain in right shoulder; Z87.891 Personal history of nicotine dependence
CPT/HCPCS: 70450; 72100; 73030; 73502; 96372; 99282

== ENCOUNTER 2023-01-13 20:42 | Emergency (ER) | payer MEDICAID, SELFPAY ==
[2023-01-13 20:43] VITALS: BP 122/90; PULSE 78; RESP 16; TEMP 36.6; O2SAT 99; BMI 20.9
--- NOTE | 2023-01-13 21:32 | US_ITS ---
INDICATION: testicular pain AND SWELLING-LEFT -- PREVIOUS HEAVY LIFTING EXAMINATION: Ultrasound US Scrotum (Contents) TECHNIQUE: Realtime ultrasound of the testicles was performed with grayscale, Color Doppler and spectral Doppler analysis. COMPARISON: None. FINDINGS: RIGHT: TESTIS: Right testicle measures 5 x 3.8 x 2.8 cm in diameter.. Normal in size and echotexture, without focal lesion. COLOR DOPPLER: Normal Doppler flow within the right testicle. EPIDIDYMIS: Normal in size and echotexture, without focal lesion. [Normal color Doppler flow pattern in the epididymis. HYDROCELE: Small hydrocele is present, containing thin internal septations; the right hydrocele measures 2.6 x 1.6 x 0.9 cm in diameter. VARICOCELE: None. LEFT: TESTIS: Left testicle measures 5.2 x 3.9 x 2.5 cm in diameter.. Normal in size and echotexture, without focal lesion. COLOR DOPPLER: Normal Doppler flow within the left testicle. EPIDIDYMIS: Normal in size and echotexture, without focal lesion. [Normal color Doppler flow pattern in the epididymis. HYDROCELE: Large anechoic peritesticular fluid collection noted on the left, consistent with hydrocele, measuring approximately 7.6 x 5.3 x 4.6 cm in diameter. VARICOCELE: None. US/Testicular with Arterial Flow IMPRESSION: Bilateral hydroceles, larger on the left. No findings of testicular torsion or acute epididymitis identified. Electronically Signed: Maksim Lees MD at 23:55 EDT ,
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
--- NOTE | 2023-01-13 21:52 | RAD_ITS ---
EXAM: XR LEFT HIP WITH PELVIS WHEN PERFORMED, 2 OR 3 VIEWS CLINICAL INDICATION: pain TECHNIQUE: Two or three views of the left hip with pelvis when performed. This report was created using [employer] report generation technology. COMPARISON: Previous radiographs of 09/16/2022. The radiographic report of 03/23/2019. FINDINGS: BONES/JOINTS: Stable benign bone island within the intertrochanteric portion of the proximal left femur. No displaced fracture. No dislocation. Note that overlapping bowel shadows may however obscure fine detail. Sacroiliac joint is unremarkable. No widening of the pubic symphysis. The articular structures are unremarkable. Lower lumbar degenerative disc disease is again noted with disc space narrowing and marginal osteophytes. Lower lumbar facet arthritis is again noted. The left hip radiographs partially visualize chronic cortical thickening and trabecular heterogeneity involving the proximal- mid shaft of the femur, with a broad-based exostosis projecting medially, most likely an osteochondroma or sequela of previous fracture; this partially visualized abnormality was noted on the left knee radiographic report of 2018 and is partially seen on one of the left hip radiographs of 09/12. SOFT TISSUES: Calcified phleboliths noted within the pelvis. No soft tissue swelling or gas. RAD/HIP, UNI W/ Pelvis 2-3 Views IMPRESSION: No evidence of acute pelvic or hip fracture. Lower lumbar degenerative disc disease and facet arthritis. Cortical expansion with trabecular heterogeneity of the femoral shaft again noted, incompletely visualized, as on prior knee radiographs of 2019 and left hip radiograph of 09/12. This chronic finding is most likely benign but dedicated nonemergent left femur radiographs are recommended for further evaluation, if these have not yet been performed. Electronically Signed: Maksim Lees MD at 22:18 EDT ,
[2023-01-13] MEDS: Ondansetron ODT 4 MG Tablet PO (22:04)
[2023-01-13] MEDS: Morphine 4 MG/ML Syringe IV (22:08)
--- NOTE | 2023-01-13 22:23 | RAD_ITS ---
EXAM: XR LEFT FEMUR, 2 VIEWS CLINICAL INDICATION: pain TECHNIQUE: Frontal and lateral views of the left femur. This report was created using [employer] report generation technology. COMPARISON: Pelvic and hip radiographs of this date and from 09/16/2022. Left knee radiograph report of 03/23/2019. FINDINGS: BONES/JOINTS: Follow-up left femur radiographs demonstrate a long segment of cortical thickening and heterogeneous trabecula within the mid shaft of the left femur, with this abnormal segment measuring approximately 15 cm in length. Cortical thickening is greatest along the medial aspect of the femoral midshaft. There is no periosteal elevation or cortical destruction to suggest infection or malignancy. No associated soft tissue mass. The left hip and left knee joint spaces are preserved. No knee effusion is identified. There is minimal degenerative spurring about the patellofemoral compartment. Bone island again noted within the intertrochanteric portion of the proximal left femur. No acute fracture. Normal alignment. SOFT TISSUES: Atherosclerotic vascular calcification is present. No soft tissue swelling or gas. No radiopaque foreign body. RAD/Femur Min 2 Views IMPRESSION: Long segment of cortical thickening with trabecular heterogeneity involving the midshaft of the femur; the portion of this abnormality seen on prior hip radiograph of 09/12 is stable, and this finding was partially visualized on the radiographs of 03/23/2019, consistent with well-healed/old fracture. No cortical destruction is seen to suggest malignancy. Electronically Signed: Maksim Lees MD at 23:34 EDT ,
[2023-01-13 22:43] VITALS: BP 139/78; PULSE 51; RESP 15; O2SAT 99
[2023-01-13] MEDS: Morphine 4 MG/ML Syringe IM (23:51)
[2023-01-14 00:16] VITALS: BP 131/72; PULSE 63; RESP 15; O2SAT 98
== END 2023-01-14 00:17 | disposition home or self-care (01) ==
PROVIDERS: Emergency Provider Student in an Organized Health Care Education/Training Program; PCP Student in an Organized Health Care Education/Training Program; Visit Provider Student in an Organized Health Care Education/Training Program
DX: S73.102A Unspecified sprain of left hip, initial encounter (principal); G40.909 Epilepsy, unspecified, not intractable, without status epilepticus; E78.00 Pure hypercholesterolemia, unspecified; Z87.891 Personal history of nicotine dependence; N43.3 Hydrocele, unspecified; X50.1XXA Overexertion from prolonged static or awkward postures, initial encounter; Z79.899 Other long term (current) drug therapy; Z79.891 Long term (current) use of opiate analgesic
CPT/HCPCS: 73502; 73552; 76870; 93976; 96372; 96374; 99283; A4216

== ENCOUNTER 2023-02-11 14:16 | Emergency (ER) | payer MEDICAID, SELFPAY ==
[2023-02-11] VITALS (7 sets, daily range): BP systolic 136–165; BP diastolic 66–82; PULSE 48–57; RESP 13–18; TEMP 36.1; O2SAT 94–100; BMI 22.7
--- NOTE | 2023-02-11 14:34 | CT_ITS ---
STUDY: CT BRAIN WITHOUT CONTRAST REASON FOR EXAM: Male, 68 years old. Fell off a first urinary roof while cleaning gutters. History of seizures and cerebral aneurysm clipping. RADIATION DOSAGE (If Supplied By Facility): CTDIvol = ( 44.99 ) mGy, DLP = ( 863.6 ) mGycm TECHNIQUE: Transaxial CT imaging of the brain was performed without administration of intravenous contrast material. Individualized dose optimization techniques were used for this CT. COMPARISON: September 16, 2022. FINDINGS: Normal soft tissue structures. Remote left posterior parietal craniotomy. Normal size ventricles and extra-axial spaces for the patient''s age. There are areas of decreased attenuation within the white matter tracts of the supratentorial brain, consistent with microvascular disease changes. Normal basal ganglia and thalami. Normal brainstem. Normal cerebellum. There is no intracranial hemorrhage. There are no findings of an acute ischemic infarction. Normal visualized paranasal sinuses. CT/Brain/Head without Contrast IMPRESSION: 1. Remote left craniotomy without acute intracranial or calvarial abnormality. No interval change. [employer] was utilized to assist in identifying pertinent positive findings in this case. Electronically Signed: Damir Gutierrez DO at 16:15 EDT Reading Location ID and State: [address] [place] [address] Tel [phone], Service support ,
--- NOTE | 2023-02-11 14:34 | CT_ITS ---
STUDY: CT CHEST, ABDOMEN T PELVIS WITH CONTRAST REASON FOR EXAM: Male, 68 years old. Trauma. Fell off a first urinary roof. Lower back pain. RADIATION DOSAGE (If Supplied By Facility): CTDIvol = ( 14.3 ) mGy, DLP = ( 1040.58 ) mGycm TECHNIQUE: Transaxial imaging was performed following intravenous administration of IV 100mL Isovue-370. Multiplanar coronal and sagittal images were reformatted. Individualized dose optimization techniques were used for this CT. COMPARISON: CT lumbar spine, February 11, 2023. CT of the abdomen and pelvis, August 02, 2022. FINDINGS: CHEST The lungs are mildly hyperexpanded. There is no focal mass or infiltrate. No pneumothorax. There is no demonstrated pleural abnormality. Normal heart and pericardium. Mild coronary artery calcifications. Normal mediastinum. Normal hilar regions. The pulmonary arteries are normal size. There is no visualized pulmonary emboli although the study is suboptimal. Mild atherosclerotic changes without aneurysm or dissection. Degenerative changes of the bilateral shoulders. Mild degenerative changes of the cervicothoracic spine. No visualized fracture or subluxation. No dislocation. ABDOMEN Normal liver. Normal gallbladder and extrahepatic biliary system. Normal spleen. Normal pancreas. Normal bilateral adrenal glands. Subcentimeters simple cyst in the upper pole but otherwise normal right kidney. Small cyst lower pole but otherwise normal left kidney. Normal visualized ureters. Normal visualized stomach. Normal small intestine. Sigmoid diverticuli without acute inflammatory change. Colon is otherwise unremarkable. The appendix is visualized and appears normal. There is diffuse atherosclerotic calcification of the abdominal aorta with elongation and tortuosity, but without a demonstrated aneurysm. Normal inferior vena cava. Normal retroperitoneum. PELVIS Normal urinary bladder. Moderately enlarged prostate. Normal seminal vesicles. No free air or free fluid is seen within the peritoneal cavity. There is no pelvic lymphadenopathy or mass lesion. There is diffuse atherosclerotic calcification of the pelvic arteries. Normal abdominal wall. There is a compression deformity superior endplate of L2 extending into the anterior body consistent with acute fracture. Degenerative changes of the lumbar spine. No other evidence of fracture or dislocation. CT/CT Chest, Abd, Pel w/Contrast IMPRESSION: 1. Fracture of the L2 vertebral body. 2. No evidence of acute intrathoracic intra-abdominal or pelvic process. 3. Splenic granulomata. 4. Enlarged prostate. 5. Atherosclerotic changes of coronary arteries and aorta. 6. Sigmoid diverticulosis. Electronically Signed: Damir Gutierrez DO at 16:28 EDT ,
--- NOTE | 2023-02-11 14:34 | CT_ITS ---
STUDY: CT LUMBAR SPINE WITHOUT CONTRAST REASON FOR EXAM: Male, 68 years old. Fell off of her story roof. Lower back pain. RADIATION DOSAGE (If Supplied By Facility): CTDIvol = ( 17.09 ) mGy, DLP = ( 475.38 ) mGycm TECHNIQUE: The patient was scanned in a multi detector CT scanner. High resolution transaxial imaging was performed. Images were obtained from L1 to the sacrum. Sagittal and coronal images were reconstructed. Individualized dose optimization techniques were used for this CT. COMPARISON: Lumbar spine, September 16, 2022. FINDINGS: Normal lumbar lordosis. There is no substantial scoliosis. Normal alignment of the lumbar vertebral bodies. There is a fracture of the L2 vertebra. There is mild compression of the superior endplate with fracture lines extending transversely through the anterior body of the vertebra. L1-2: Fracture of the superior endplate of L2. Normal disc height and morphology. Normal bilateral facet joints. Normal central canal and bilateral lateral recesses. Normal bilateral intervertebral neural foramina. L2-3: Normal endplates. Normal disc height and morphology. Normal bilateral facet joints. Normal central canal and bilateral lateral recesses. Normal bilateral intervertebral neural foramina. L3-4: Mild endplate spondylosis. Mild bulging annulus without loss of disc height. Minimal facet joint degenerative change. Normal central canal and bilateral lateral recesses. Normal bilateral intervertebral neural foramina. L4-5: Endplate spondylosis. Bulging annulus without loss of disc height. Facet joint degenerative change. Mild stenosis of the central canal. Normal bilateral lateral recesses. Normal bilateral intervertebral neural foramina. L5-S1: Complete spondylosis. Loss of disc height with vacuum disc phenomenon and mild bulging annulus. Facet joint degenerative change. Normal central canal and bilateral lateral recesses. Narrowing of the bilateral intervertebral neural foramina with questionable impingement on the exiting nerve roots.. Atherosclerotic changes of the abdominal aorta and iliac arteries. Exophytic cyst off the upper pole of the right kidney. CT/Spine Lumbar without Contrast IMPRESSION: 1. Acute fracture of the L2 vertebral body. 2. Degenerative changes of the lower lumbar spine. Electronically Signed: Damir Gutierrez DO at 16:21 EDT ,
--- NOTE | 2023-02-11 14:34 | CT_ITS ---
STUDY: CT CERVICAL SPINE WITHOUT CONTRAST REASON FOR EXAM: Male, 68 years old. Fell off a first story roof while cleaning gutters. RADIATION DOSAGE (If Supplied By Facility): CTDIvol = ( 19.37 ) mGy, DLP = ( 383.3 ) mGycm TECHNIQUE: High resolution transaxial imaging was performed without contrast material. Sagittal and coronal images were reconstructed. Individualized dose optimization techniques were used for this CT. COMPARISON: Cervical spine CT, April 14, 2022 FINDINGS: Normal craniovertebral junction. There are degenerative changes of the anterior atlantoaxial articulation. Normal odontoid process. Normal cervical lordosis. Normal vertebral bodies and posterior osseous elements. C2-3: Normal endplates. Normal disc height and morphology. Normal central canal and intervertebral neuroforamina. C3-4: Normal endplates. Normal disc height and morphology. Mild facet degenerative change. Normal central canal and intervertebral neuroforamina. C4-5: Endplate spondylosis. Loss of disc height with mild bulging annulus. Facet and uncovertebral joint degenerative change.. Mild stenosis of the central canal and narrowing of the bilateral intervertebral neuroforamina. C5-6: Endplate spondylosis. Loss of disc height with mild bulging annulus. Facet and uncovertebral joint degenerative change.. Mild stenosis of the central canal and narrowing of the bilateral intervertebral neuroforamina. C6-7: Endplate spondylosis. Loss of disc height with mild bulging annulus. Facet and uncovertebral joint degenerative change.. Mild stenosis of the central canal and narrowing of the bilateral intervertebral neuroforamina. C7-T1: Normal endplates. Normal disc height and morphology. Normal central canal and intervertebral neuroforamina. Bilateral carotid artery calcifications. CT/Spine Cervical without Contras IMPRESSION: Stable degenerative changes cervical spine. There is no acute fracture or subluxation. Note: MRI is more sensitive than CT in detecting cord injury, ligamentous injury and epidural hematoma. If there is continued clinical concern for any of these entities, MRI should be considered. A[employer]OC was utilized to assist in identifying pertinent positive findings in this case. Electronically Signed: Damir Gutierrez DO at 16:17 EDT Reading Location ID and State: [facility] / [place] Tel [phone], Service support ,
--- NOTE | 2023-02-11 14:38 | ED.VIS.FALL ---
HPI HPI - Fall History of Present Illness Chief Complaint: Trauma Detail of Chief Complaint: Fell about 10 foot from first story roof onto the ground. 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 It occurred 30 years ago. He was on a roof open clean out lesion branches when he leaned over reached over too far and fell to the ground. She. Denies any head or neck pain. He was brought in by squad backboard and c-collar. His primary complaint of pain lower abdominal pain and more so left hip and lower back. He is on no blood thinners. Prior similar symptoms: No Recent Illness/Hospitalization: No PFSH PFSH Medical History Epilepsy Hemorrhoid High cholesterol Sciatica Home Medications omeprazole 20 mg capsule,delayed release 40 mg PO DAILY 03/23/22 [History Last Taken Unknown] gabapentin 300 mg capsule 300 mg PO 4X/DAY 04/02/22 [History Last Taken Unknown] oxycodone-acetaminophen 5 mg-325 mg tablet (Percocet) 1 tab PO Q6H PRN pain 3 days #10 tabs 04/16/22 [Rx Last Taken Unknown] hydrocortisone acetate 25 mg rectal suppository (Anusol-HC) 25 mg TN QHS #12 ea 04/27/22 [Rx Last Taken Unknown] polyethylene glycol 3350 17 gram/dose oral powder (Miralax) 17 g PO DAILY #119 grams 04/27/22 [Rx Last Taken Unknown] atorvastatin 40 mg tablet (Lipitor) 40 mg PO QHS 01/13/23 [History Last Taken Unknown] Allergy/AdvReac Type Severity Reaction Status Date / Time adhesive tape [tape] AdvReac Rash Verified 02/11/23 14:22 hydrocodone [From [place]] AdvReac Upset Verified 02/11/23 14:22 Stomach ibuprofen AdvReac Upset Verified 02/11/23 14:22 Stomach ketorolac [From Toradol] AdvReac Rash Verified 02/11/23 14:22 naproxen AdvReac Rash Verified 02/11/23 14:22 tramadol AdvReac Upset Verified 02/11/23 14:22 Stomach Surgical History S/P clamping of cerebral aneurysm Social History household members: significant other Smoking Status: Former smoker alcohol intake: former substance use type: does not use ROS ROS ED ROS Narrative Denies recent illness. Review of Systems ROS Unobtainable: Denies due to encephalopathy Constitutional Constitutional ED: Denies chills or fever(s) Eyes Eyes: Denies blurry vision ENT ENT ED: Denies ear pain Cardiovascular Cardiovascular: Denies chest pain Respiratory/Chest Respiratory/Chest: Denies cough or dyspnea Gastrointestinal Gastrointestinal: Reports abdominal pain; Denies constipation, diarrhea, melena, nausea or vomiting Genitourinary Genitourinary ED: Denies dysuria or hematuria Musculoskeletal Musculoskeletal: Reports back pain; Denies arthralgias, myalgias or neck pain Integumentary Denies abscess or Abrasions Neurologic Neurologic: Denies headache(s) Psychiatric Psychiatric: Denies anxiety or depression Endocrine Endocrinology: Denies polydipsia Hematologic/Lymphatic Hematologic/Lymphatic: Denies easy bleeding Allergic/Immunologic Allergic/Immunologic ED: Denies mouth swelling EXAM Physical Exam Narrative Exam Narrative: Six 8-year-old male brought in by squad. Backboard and c-collar. Complaining of pain over his left pelvis area and lumbar spine. Vital signs are stable and he is afebrile. He is awake and alert. Answering questions and following commands. H EENT exam pupils round reactive light. No signs of facial or dental trauma. Scalp nontender. C-collar in place. Trachea midline. Lungs clear to auscultation bilaterally. Heart regular rhythm rate about 60 no murmur. Chest wall and rib cage nontender no signs of trauma. No subcu air or bruising. No crepitance. Abdomen is soft mild suprapubic tenderness. No distention. No bruising. No peritoneal signs. Right upper right lower quadrant unremarkable. Pelvic girdle intact. Tenderness over his left hip and proximal left femur. No gross bony deformity. No shortening or rotation. Moving all 4 extremities Limited range of motion of the left leg due to hip pain and pelvis pain. 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 Upper extremities are nontender. Right lower extremity nontender no deformity. Currently is on a backboard I have not rolled him as of yet. Nurses will get his close cut off he will be taken the CAT scan or screening labs will be obtained. Will be given a liter of fluid, 2 IVs established fentanyl and Zofran. Const Vital Signs: 02/11/23 14:17 02/11/23 14:23 02/11/23 15:22 Temperature 97.0 F L 97.0 F L Temperature Source Temporal Pulse Rate 57 L 53 L Respiratory Rate 18 18 Respiratory Effort Normal Non-Labored Respiratory Depth Normal Respiratory Pattern Normal Blood Pressure 146/72 H 149/74 H Blood Pressure Mean 96 99 Pulse Ox 99 99 97 Oxygen Delivery Method Room Air Room Air Room Air 02/11/23 16:28 Temperature Temperature Source Pulse Rate 57 L Respiratory Rate 18 Respiratory Effort Respiratory Depth Respiratory Pattern Blood Pressure 136/82 H Blood Pressure Mean 100 Pulse Ox 98 Oxygen Delivery Method Room Air Positive well nourished and well developed; Negative for obese, cachectic, contractures or unkempt General Appearance ED: well developed; Negative for unkempt, cachectic, contractures or NAD Nutritional Appearance: Negative for cachectic or obese HEENT Reports normocephalic atraumatic; Negative for trauma, contusion, hematoma or tenderness Eyes PERRL and EOMs intact bilaterally General Eye ED: Negative for pale conjunctiva or scleral icterus Neck No full ROM, no lymphadenopathy and supple Neck Narrative: C-collar in place. Chest Wall inspection of chest normal and palpation of chest normal Chest: Negative for other Resp normal respiratory effort, no retractions and clear to auscultation bilaterally Effort and Inspection: Negative for pain with movement Auscultation: Negative for rales, rhonchi, wheezes or diminished lung sounds Cardio regular rate, regular rhythm, S1 normal heart sound, S2 normal heart sound and no murmurs Rate: Negative for bradycardia or tachycardic Rhythm: Negative for abnormal rhythm Bruits: Negative for other GI non-distended and no masses; Negative for non-tender GI Narrative: Mild suprapubic tenderness. No bruising. Inspection: Negative for abdominal distention Auscultation: normoactive bowel sounds Palpation: soft; Negative for guarding or rebound tenderness present Back/Spine Back/Spine Narrative: On the backboard at this time. We will roll and evaluate his back later. Neuro oriented x3, CN's II-XII intact bilaterally, moves all extremities, no focal motor deficits and no sensory deficits noted [place] Coma Scale: document GCS findings Spontaneous Obeys Commands Oriented 15 Sensorium / Orientation: alert, oriented to person, oriented to place and oriented to time; Negative for orientation impaired, confused, lethargic or stuporous Motor Exam: strength 5/5 throughout Psych mental status grossly normal and thought process normal Appearance: Negative for unkempt Attitude: No agitated Mood & Affect: Negative for depressed, anxious or tearful Skin General Skin Exam: Negative for other Lesions: no lesions Rashes: no rashes Trauma: Negative for abrasion or laceration MDM MDM MDM Narrative Medical decision making narrative: 68-year-old male fell from a one-story roof about 10 feet from the ground primarily complaining lower back pain, lower abdominal pain and left hip and pelvis pain. Treated with fentanyl IV fluids and Zofran. CAT scans are pending and screening labs. Multiple repeat exams patient is doing well currently resting more comfortable. Initially treated with fentanyl and then given morphine when he did not feel that the fentanyl that he much good. His pain is much improved. I have gone over the CAT scan results with him. He remains neurovascularly intact. He is awake is alert. He is moving his extremities. He has normal motor strength and sensation in his lower extremities. I will speak to a level 1 trauma center and see if they accept the patient in transfer. He remains currently on the backboard and c-collar. History & Record Review Discussion w/independent historian: EMS personnel and Patient Lab Data Attestation: I reviewed the patient's lab results. Lab results narrative: CBC shows white count 8.4. H&H 12.6 37.6. Platelets 324. PT/INR 14 and 1.2. PTT 31. Electrolytes unremarkable gap of 2. Normal BUN and creatinine of twelve 0.9. Liver enzymes normal. Lipase normal at 24. Alcohol negative. Urinalysis is negative. Labs: Laboratory Results - last 24 hr 02/11/23 02/11/23 02/11/23 14:40 14:40 14:40 WBC 8.4 RBC 4.10 L Hgb 12.6 L Hct 37.6 L MCV 91.7 MCH 30.7 MCHC 33.5 RDW Std Deviation 46.7 H RDW Coeff of Jerry 13.8 Plt Count 324 MPV 9.0 Immature Gran % (Auto) 1.300 H Neut % (Auto) 69.1 Lymph % (Auto) 19.5 [place] % (Auto) 6.8 Eos % (Auto) 2.6 Baso % (Auto) 0.7 Absolute Neuts (auto) 5.8 Absolute Lymphs (auto) 1.64 Nucleated RBC % 0 PT 14.4 INR 1.2 APTT 31.9 Sodium 137 Potassium 4.0 Chloride 110 H Carbon Dioxide 25.0 Anion Gap 2 L BUN 12 Creatinine 0.99 Estim Creat Clear Calc 75.79 Est GFR (MDRD) Af Amer 97 Est GFR (MDRD) Non-Af 80 BUN/Creatinine Ratio 12.2 Glucose 103 Calcium 9.0 Total Bilirubin 0.80 AST 26 ALT 27 Alkaline Phosphatase 78 Total Protein 6.6 Albumin 3.3 Globulin 3.3 Albumin/Globulin Ratio 1.0 Lipase 24 Urine Color Urine Clarity Urine pH Ur Specific [place] Urine Protein Urine Glucose (UA) Urine Ketones Urine Occult Blood Urine Nitrite Urine Bilirubin Urine Urobilinogen Ur Leukocyte Esterase Urine RBC Urine WBC Ur Squamous Epith Cells Urine Bacteria Urine Mucus Ethyl Alcohol 02/11/23 02/11/23 14:40 16:08 WBC RBC Hgb Hct MCV MCH MCHC RDW Std Deviation RDW Coeff of Jerry Plt Count MPV Immature Gran % (Auto) Neut % (Auto) Lymph % (Auto) [place] % (Auto) Eos % (Auto) Baso % (Auto) Absolute Neuts (auto) Absolute Lymphs (auto) Nucleated RBC % PT INR APTT Sodium Potassium Chloride Carbon Dioxide Anion Gap BUN Creatinine Estim Creat Clear Calc Est GFR (MDRD) Af Amer Est GFR (MDRD) Non-Af BUN/Creatinine Ratio Glucose Calcium Total Bilirubin AST ALT Alkaline Phosphatase Total Protein Albumin Globulin Albumin/Globulin Ratio Lipase Urine Color Yellow Urine Clarity Clear Urine pH 8.0 Ur Specific [place] 1.010 Urine Protein Negative Urine Glucose (UA) Normal Urine Ketones Negative Urine Occult Blood 10 H Urine Nitrite Negative Urine Bilirubin Negative Urine Urobilinogen Normal Ur Leukocyte Esterase Negative Urine RBC 0 SEEN Urine WBC 0 SEEN Ur Squamous Epith Cells 0 SEEN Urine Bacteria 0 SEEN Urine Mucus 0 SEEN Ethyl Alcohol < 3.0 Radiography Diagnostic Testing: Clinical Impression(s) from Imaging Studies Brain CT 02/11/23 14:34 IMPRESSION: 1. Remote left craniotomy without acute intracranial or calvarial abnormality. No interval change. [employer] was utilized to assist in identifying pertinent positive findings in this case. Electronically Signed: Damir New FreedomDO mike at 16:15 EDT Reading Location ID and State: [employer] / [place] Tel [phone], Service support , Cervical Spine CT 02/11/23 14:34 IMPRESSION: Stable degenerative changes cervical spine. There is no acute fracture or subluxation. Note: MRI is more sensitive than CT in detecting cord injury, ligamentous injury and epidural hematoma. If there is continued clinical concern for any of these entities, MRI should be considered. A[employer]OC was utilized to assist in identifying pertinent positive findings in this case. Electronically Signed: Damir Gutierrez DO at 16:17 EDT Reading Location ID and State: [facility] Tel [phone], Service support , Chest/Abdomen/Pelvis CT 02/11/23 14:34 IMPRESSION: 1. Fracture of the L2 vertebral body. 2. No evidence of acute intrathoracic intra-abdominal or pelvic process. 3. Splenic granulomata. 4. Enlarged prostate. 5. Atherosclerotic changes of coronary arteries and aorta. 6. Sigmoid diverticulosis. Electronically Signed: Damir Gutierrez DO at 16:28 EDT Reading Location ID and State: [employer] / [place] Tel [phone], Service support , Lumbar Spine CT 02/11/23 14:34 IMPRESSION: 1. Acute fracture of the L2 vertebral body. 2. Degenerative changes of the lower lumbar spine. Electronically Signed: Damir New FreedomDO mike at 16:21 EDT Reading Location ID and State: [employer] / [employer] Tel [phone], Service support , Pelvis left hip x-ray 3 view showed no acute abnormality. Chronic changes. Interpreted by myself. Left femur x-ray 4 views myself shows no acute fracture or dislocation. Discharge Plan Triage Chief Complaint: Trauma ED Provider: Ken Mari Dx/Rx/DC Orders Clinical Impression: Fall from roof, Closed lumbar vertebral fracture Prescriptions: No Action omeprazole 20 mg capsule,delayed release(DR/EC) 40 mg PO DAILY Label Comments: TAKE 1 CAPSULE BY MOUTH EVERY DAY IN THE MORNING BEFORE BREAKFAST gabapentin 300 mg capsule 300 mg PO 4X/DAY oxycodone-acetaminophen [Percocet] 5-325 mg tablet 1 tab PO Q6H PRN (Reason: pain) 3 Days Qty: 10 0RF polyethylene glycol 3350 [Miralax] 17 gram/dose powder 17 g PO DAILY Qty: 119 0RF Rx Instructions: 1 cap per day hydrocortisone acetate [Anusol-HC] 25 mg suppository 25 mg TN QHS Qty: 12 0RF atorvastatin [Lipitor] 40 mg Tablet 40 mg PO QHS Primary Care Provider: Jefferson Gregorio Referrals: Jefferson Gregorio DO [Primary Care Provider] - Disposition Disposition: Acute Care Hospital
--- NOTE | 2023-02-11 14:49 | ED.RN ---
THE PT ASKED THIS RN TO CALL PT BROTHER ([place]). PT UNSURE OF PHONE NUMBER. PHONE NUMBER ON FILE NOT WORKING. PT NOW ASKS THIS RN TO CALL REJI (PT NEPHEW). THIS RN CALLED PT NEPHEW AT [phone].
[2023-02-11] MEDS: fentaNYL 100 MCG/2 ML Ampul 50 MCG IV (14:56)
[2023-02-11] MEDS: Ondansetron 4 MG/2 ML Vial IV ×2 (14:57→18:57)
[2023-02-11 15:00] LABS: Absolute Lymphocyte Count 1.64 X10^3/uL (0.83-4.51); Absolute Neutrophil Count 5.8 X10^3/uL (2.0-7.7); Basophil# 0.06 X10^3/uL; Basophil% 0.7 % (0-1); Eosinophil# 0.22 X10^3/uL; Eosinophils% 2.6 % (0-5); Hematocrit 37.6 % (40-54); Hemoglobin 12.6 g/dL (13.0-16.5); Lymphocyte # 1.64 X10^3/ul (0.83-4.51); Lymphocyte % 19.5 % (19-41); Mean Corp Hgb Conc 33.5 g/dL (32-36); Mean Corpuscular Hgb 30.7 pg (27.0-32.0); Mean Corpuscular Volume 91.7 fL (80-94); Monocyte# 0.57 X10^3/uL; Monocyte% 6.8 % (0-10); NRBC Flagged by Analyzer 0 % (0-5); Neutrophil # 5.82 X10^3/uL (2.7-7.7); Neutrophil % 69.1 % (47-70); Platelet Count 324 K/mm3 (150-450); RBC Distribution Width CV 13.8 % (11.6-14.6); RBC Distribution Width SD 46.7 fl (35.1-43.9); White Blood Count 8.4 K/mm3 (4.4-11.0)
--- NOTE | 2023-02-11 15:09 | ED.RN ---
PER DR. CHRISTIE VERBAL ORDER, OKAY TO GIVE FLUIDS PRIOR TO CT SCAN RESULTS BACK.
[2023-02-11 15:20] LABS: AST(SGOT) 26 U/L (15-37); Alanine Aminotransfer ALT/SGPT 27 U/L (16-61); Albumin, Serum 3.3 g/dL (3.2-5.0); Alkaline Phosphatase 78 U/L (45-117); Anion Gap 2 (5-15); BUN 12 mg/dL (7-18); BUN/Creat Ratio 12.2 RATIO (10-20); Chloride 110 mmol/L (98-107); Creatinine, Serum 0.99 mg/dL (0.70-1.30); EST Glomerular Filtration Rate 80 mL/min (>60); Est Glom Filt Rate - Afr Amer 97 mL/min (>60); Estimated Creatinine Clearance 75.79 ml/min; Globulin 3.3 g/dL (2.2-4.2); Glucose 103 mg/dL (74-106); Lipase 24 U/L (13-75); Protein, Total 6.6 g/dL (6.4-8.2); Sodium Level 137 mmol/L (136-145)
[2023-02-11] MEDS: 0.9% Normal Saline 1,000 ML 1000 ML IV (15:25)
[2023-02-11 15:29] LABS: International Normalized Ratio 1.2; Partial Thromboplast Time 31.9 Seconds (24.1-36.2); Prothrombin Time (Protime)PT. 14.4 SECONDS (11.7-14.9)
[2023-02-11 15:40] LABS: Alcohol, Blood (Medical)-Serum < 3.0 mg/dL
[2023-02-11 16:15] LABS: Bacteria 0 SEEN /hpf (None Seen); Mucous, Urine 0 SEEN /hpf (<or=2+); Red Blood Cells-Urine 0 SEEN /hpf (0-5); Squamous Epithelial Cells - UA 0 SEEN /hpf (0-5); White Blood Cells 0 SEEN /hpf (0-5)
--- NOTE | 2023-02-11 16:15 | RAD_ITS ---
STUDY: X-RAY - LEFT FEMUR REASON FOR STUDY: Male, 68 years old. Fall from a one story roof. TECHNIQUE: AP and lateral view(s) of the femur. COMPARISON: None. FINDINGS: There is irregularity of the mid shaft of the femur suggesting remote healed fracture. There is no evidence of acute fracture. The hip and knee are intact. The visualized osseous pelvis appears normal. Normal visualized soft tissue structure. RAD/Femur Min 2 Views IMPRESSION: Healed fracture of the mid femoral shaft without acute abnormality. Electronically Signed: Damir Gutierrez DO at 16:46 EDT ,
--- NOTE | 2023-02-11 16:15 | RAD_ITS ---
STUDY: X-RAY - PELVIS REASON FOR EXAM: Male, 68 years old. Fell off a roof. Pain. TECHNIQUE: One view of the pelvis was obtained. COMPARISON: CT the abdomen and pelvis, February 11, 2023. FINDINGS: There is a non-specific bowel gas pattern. Normal visualized soft tissue structures. Contrast is seen in the urinary bladder. There is a defect in the base of the bladder thought to be due to the enlarged prostate. Normal bilateral iliac wings, sacroiliac joints and visualized sacrum. Normal visualized bilateral superior and inferior pubic rami. Normal pubic symphysis. Normal ischial tuberosities. Normal visualized right femoral head. Normal right acetabulum. There is mild articular joint space narrowing of the right hip. Normal visualized left femoral head. Normal left acetabulum. There is mild articular joint space narrowing of the left hip. RAD/Pelvis 1 or 2 Views IMPRESSION: Degenerative changes of the bilateral hips. There is no visualized fracture or dislocation. Electronically Signed: Damir Gutierrez DO at 16:45 EDT ,
[2023-02-11 16:16] LABS: Color, Urine Yellow (Yellow); Glucose, Dipstick Normal (Normal); Ketone-Dipstick Negative (Negative); Leukocyte Esterase-Dipstick Negative /ul (Negative); Nitrite-Dipstick Negative (Negative); Occult Blood-Urine 10 /ul (Negative); Protein-Dipstick Negative (Negative); Urine Bilirubin Dipstick Negative (Negative); Urine Clarity Clear (Clear); Urine Urobilinogen Normal (Normal)
[2023-02-11] MEDS: morphine 8 MG/ML Syringe 6 MG IV ×2 (16:30→18:32)
--- NOTE | 2023-02-11 17:21 | NURSING ---
CALLED TO SET UP TRANSPORT FOR THE PATIENT TO [facility]- ETA IS 90MINUTES TO 2 HOURS-- [id number]
--- NOTE | 2023-02-11 17:42 | ED.RN ---
PT STATES HE HAS NO MONEY IN HIS [place] PRIOR TO TRANSFER AT 1742.
--- NOTE | 2023-02-11 17:51 | ED.RN ---
THIS RN CALLED REPORT TO [facility] AT 1751. REPORT TAKEN BY CHRISTINE STEWARD.
--- NOTE | 2023-02-11 19:02 | ED.RN ---
THIS RN GAVE REPORT TO Jesusita BROWN, MEDIC AT 1901 WITH [facility]. CARE ASSUMED BY HER AT 190.
== END 2023-02-11 19:04 | disposition short-term general hospital (02) ==
PROVIDERS: Emergency Provider Emergency Medicine; PCP Student in an Organized Health Care Education/Training Program; Visit Provider Emergency Medicine
DX: S32.029A Unspecified fracture of second lumbar vertebra, initial encounter for closed fracture (principal); Z87.891 Personal history of nicotine dependence; E78.00 Pure hypercholesterolemia, unspecified; W13.2XXA Fall from, out of or through roof, initial encounter; Y93.89 Activity, other specified; Z79.899 Other long term (current) drug therapy
CPT/HCPCS: 70450; 71260; 72125; 72131; 72170; 73552; 74177; 80053; 81001; 82077; 83690; 85025; 85610; 85730; 96361; 96374; 96375; 96376; 99285; J7030; Q9967; A4216; J2405

== ENCOUNTER 2023-05-31 10:21 | Emergency (ER) | payer MEDICAID, SELFPAY ==
[2023-05-31 10:22] VITALS: BP 125/76; PULSE 96; RESP 14; TEMP 36.2; O2SAT 100; BMI 20.5
--- NOTE | 2023-05-31 10:50 | EX.ED.DYSGE1 ---
HPI <NIKI Juarez - Last Filed: 05/31/23 13:02> History of Present Illness Chief Complaint: Constipation Narrative Narrative: Patient presenting today due to constipation that he has had for the past day or two. He reports that he feels that he is impacted. He takes 3-4 Percocet daily for the past few months due to a lumbar fracture. He does not take any medications for constipation. He tried to take 1 suppository an hour prior to arrival without any relief. He denies any fever, chills, abdominal pain, nausea, vomiting, and urinary symptoms. PFSH <NIKI Juarez - Last Filed: 05/31/23 13:02> [facility] Medical History Epilepsy Hemorrhoid High cholesterol Sciatica Home Medications omeprazole 20 mg capsule,delayed release 40 mg PO DAILY 03/23/22 [History Last Taken Unknown] gabapentin 300 mg capsule 300 mg PO 4X/DAY 04/02/22 [History Last Taken Unknown] oxycodone-acetaminophen 5 mg-325 mg tablet (Percocet) 1 tab PO Q6H PRN pain 3 days #10 tabs 04/16/22 [Rx Last Taken Unknown] hydrocortisone acetate 25 mg rectal suppository (Anusol-HC) 25 mg [place] QHS #12 ea 04/27/22 [Rx Last Taken Unknown] polyethylene glycol 3350 17 gram/dose oral powder (Miralax) 17 g PO DAILY #119 grams 04/27/22 [Rx Last Taken Unknown] atorvastatin 40 mg tablet (Lipitor) 40 mg PO QHS 01/13/23 [History Last Taken Unknown] polyethylene glycol 3350 17 gram/dose oral powder (ClearLax) 17 g PO DAILY #119 grams 05/31/23 [Rx Last Taken Unknown] Allergy/AdvReac Type Severity Reaction Status Date / Time adhesive tape [tape] AdvReac Rash Verified 05/31/23 10:23 hydrocodone [From [place]] AdvReac Upset Verified 05/31/23 10:23 Stomach ibuprofen AdvReac Upset Verified 05/31/23 10:23 Stomach ketorolac [From Toradol] AdvReac Rash Verified 05/31/23 10:23 naproxen AdvReac Rash Verified 05/31/23 10:23 tramadol AdvReac Upset Verified 05/31/23 10:23 Stomach Surgical History S/P clamping of cerebral aneurysm Social History household members: significant other Smoking Status: Former smoker alcohol intake: former substance use type: does not use ROS <NIKI Juarez - Last Filed: 05/31/23 13:02> ROS ED Constitutional Constitutional ED: Denies chills or fever(s) Cardiovascular Cardiovascular: Denies chest pain or palpitations Respiratory/Chest Respiratory/Chest: Denies cough or dyspnea Gastrointestinal Gastrointestinal: Reports constipation; Denies abdominal pain, diarrhea, nausea or vomiting Genitourinary Genitourinary ED: Denies dysuria, hematuria or urinary urgency Musculoskeletal Musculoskeletal: Denies arthralgias, back pain or myalgias Integumentary Denies Abrasions or rash Neurologic Neurologic: Denies weakness EXAM <NIKI Juarez Last Filed: 05/31/23 13:02> Physical Exam Const Vital Signs: 05/31/23 10:22 Temperature 97.1 F L Temperature Source Temporal Pulse Rate 96 Respiratory Rate 14 Blood Pressure 125/76 H Blood Pressure Mean 92 Pulse Ox 100 Oxygen Delivery Method Room Air Positive well nourished, well developed and no apparent distress General Appearance ED: well developed HEENT Reports normocephalic and head/scalp atraumatic Mouth ED: Yes moist mucous membranes normal Eyes PERRL and EOMs intact bilaterally Neck full ROM and supple Chest Wall inspection of chest normal Resp normal respiratory effort and clear to auscultation bilaterally Cardio regular rate and regular rhythm GI soft to palpation, non-tender, non-distended and no masses GI Narrative: On rectal examination patient has impacted stool, I did attempt to digitally disimpact. Rectal Exam: normal sphincter tone Back/Spine normal ROM and normal to inspection Extremity normal to inspection and full ROM Neuro oriented x3, CN's II-XII intact bilaterally, moves all extremities, no focal motor deficits and no sensory deficits noted Sensorium / Orientation: awake and alert Psych mental status grossly normal and thought process normal Skin no rashes or lesions noted and no wounds <Dr. Mark Sweeney DO - Last Filed: 05/31/23 16:06> Physical Exam Const Vital Signs: 05/31/23 10:22 Temperature 97.1 F L Temperature Source Temporal Pulse Rate 96 Respiratory Rate 14 Blood Pressure 125/76 H Blood Pressure Mean 92 Pulse Ox 100 Oxygen Delivery Method Room Air [facility] <NIKI Juarez - Last Filed: 05/31/23 13:02> [facility] Narrative Medical decision making narrative: Patient presenting due to constipation that he has had over the past day or 2. Patient takes Percocet daily due to a lumbar fracture and does not take any laxatives. He tried to take a suppository 1 hour prior to arrival without any relief. He reports that he feels backed up and impacted. He is not having any abdominal pain, nausea, or vomiting to suggest bowel obstruction. On rectal examination there is hard stool in the rectal vault. I did attempt to digitally disimpact the stool but there was still some that remained. Uro-Jet was used to help lubricate the area and help with the discomfort. Patient was again digitally disimpacted by the nurse and she was able to remove more stool, after that patient was able to pass a large bowel movement and had relief of his symptoms. I have given him a prescription for MiraLAX and have encouraged him to start taking this daily. He will be discharged home in stable condition and is comfortable with plan. <Dr. Mark Sweeney DO - Last Filed: 05/31/23 16:06> [facility] Narrative Medical decision making narrative: Patient presenting due to constipation that he has had over the past day or 2. Patient takes Percocet daily due to a lumbar fracture and does not take any laxatives. He tried to take a suppository 1 hour prior to arrival without any relief. He reports that he feels backed up and impacted. He is not having any abdominal pain, nausea, or vomiting to suggest bowel obstruction. On rectal examination there is hard stool in the rectal vault. I did attempt to digitally disimpact the stool but there was still some that remained. Uro-Jet was used to help lubricate the area and help with the discomfort. Patient was again digitally disimpacted by the nurse and she was able to remove more stool, after that patient was able to pass a large bowel movement and had relief of his symptoms. I have given him a prescription for MiraLAX and have encouraged him to start taking this daily. He will be discharged home in stable condition and is comfortable with plan. This patient was seen with a PA/GENERAL LITHOGRAPHIC WORKER Individually assessed they patient including history and physical. I have reviewed everything on the chart that is available and agree with the documentation provided by the PA/GENERAL LITHOGRAPHIC WORKER including discussion about the assessment, treatment plan, discussion, and return precautions. Patient was seen and examined. By the time I seen him he had had disimpaction and had a bowel movement and he feels much better. I do not believe we need blood work or imaging. Discharged home in stable condition. Recommended to use MiraLAX or stool softeners. Discharge Plan Triage Chief Complaint: Constipation ED Midlevel Provider: Minoo Davison ED Provider: Mark Sweeney Dx/Rx/DC Orders Clinical Impression: Fecal impaction in rectum, Constipation Instructions: ED Constipation (Adult) Prescriptions: New polyethylene glycol 3350 [ClearLax] 17 gram/dose powder 17 g PO DAILY Qty: 119 0RF No Action omeprazole 20 mg capsule,delayed release(DR/EC) 40 mg PO DAILY Patient Comments: TAKE 1 CAPSULE BY MOUTH EVERY DAY IN THE MORNING BEFORE BREAKFAST gabapentin 300 mg capsule 300 mg PO 4X/DAY oxycodone-acetaminophen [Percocet] 5-325 mg tablet 1 tab PO Q6H PRN (Reason: pain) 3 Days Qty: 10 0RF polyethylene glycol 3350 [Miralax] 17 gram/dose powder 17 g PO DAILY Qty: 119 0RF Rx Instructions: 1 cap per day hydrocortisone acetate [Anusol-HC] 25 mg suppository 25 mg [place] QHS Qty: 12 0RF atorvastatin [Lipitor] 40 mg Tablet 40 mg PO QHS Primary Care Provider: Jefferson Gregorio Referrals: Jefferson Gregorio DO [Primary Care Provider] - 3-5 Days Activity Restrictions/Additional Instructions: Please follow-up with your PCP and return for any worsening of your symptoms. Begin taking MiraLAX daily. Disposition Disposition: Home, Self Care Discharge Date/Time: 05/31/23 11:55
[2023-05-31] MEDS: Lidocaine Jelly 2% 20 ML Syringe (URO-JET) 1 APPLIC TOPICAL (11:49)
--- NOTE | 2023-05-31 11:52 | ED.RN ---
AFTER LIDOCAINE APPLIED, PT ABLE TO HAVE LARGE SOLID, BOWEL MOVEMENT.
== END 2023-05-31 11:55 | disposition home or self-care (01) ==
LOC: ED 11:53
PROVIDERS: Emergency Provider Student in an Organized Health Care Education/Training Program; PCP Student in an Organized Health Care Education/Training Program; Visit Provider Student in an Organized Health Care Education/Training Program
DX: K56.41 Fecal impaction (principal); Z87.891 Personal history of nicotine dependence
CPT/HCPCS: 99282

== ENCOUNTER 2023-08-09 12:19 | Emergency (ER) | payer MEDICAID, SELFPAY ==
[2023-08-09 12:20] VITALS: BP 146/78; PULSE 64; RESP 14; TEMP 36.4; O2SAT 98; BMI 23.7
--- NOTE | 2023-08-09 12:38 | CT_ITS ---
INDICATION: injury EXAMINATION: CT LUMBAR SPINE - CT Spine Lumbar W/O Contrast Injection TECHNIQUE: Helically acquired images were obtained of the lumbar spine. 2D reformats were reviewed. A radiation dose optimization technique was used for this scan. IV Contrast dosage and agent: None. RADIATION DOSAGE (If Supplied By Facility): CTDIvol = ( 13.82 ) mGy, DLP = ( 380.74 ) mGycm COMPARISON: Prior study dated: 02/11/2023 FINDINGS: VERTEBRAE: Mild compression fracture of L2 vertebra slightly more depressed than the previous exam. Anterior degenerative osteophyte formation. Mild depression of the superior endplate of L4 worse than the previous exam. No demonstrated acute compression fracture deformity. The posterior elements appear intact. The alignment of the vertebral bodies unremarkable. DISCS and SPINAL CANAL: Multilevel degenerative changes of the lumbar spine described in the previous report unchanged since the prior examination. VISUALIZED ABDOMEN: Visualized abdominal aorta is not dilated. There is no retroperitoneal adenopathy. CT/Spine Lumbar without Contrast IMPRESSION: 1. Mild compression of L2 vertebra more depressed than the previous examination appears to be chronic. 2. Mild depression of the superior endplate of L4 also more depressed than the previous exam otherwise no demonstrated acute fracture. 3. Multilevel degenerative changes unchanged. 4. If symptoms persist, MRI of the lumbar spine is recommended. Electronically Signed: Wesley Hunt MD at 13:13 EDT ,
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
[2023-08-09] MEDS: Morphine 4 MG/ML Syringe IM (14:35)
[2023-08-09] MEDS: HYDROmorphone 1 MG/ML Syringe IM (15:29)
[2023-08-09] MEDS: Ondansetron ODT 4 MG Tablet PO (15:41)
[2023-08-09 15:50] VITALS: BP 146/84; PULSE 18; O2SAT 98
== END 2023-08-09 15:54 | disposition home or self-care (01) ==
PROVIDERS: Emergency Provider Emergency Medicine; PCP Student in an Organized Health Care Education/Training Program; Visit Provider Emergency Medicine
DX: M48.56XA Collapsed vertebra, not elsewhere classified, lumbar region, initial encounter for fracture (principal); E78.00 Pure hypercholesterolemia, unspecified; Z87.891 Personal history of nicotine dependence; W17.89XA Other fall from one level to another, initial encounter; Z79.899 Other long term (current) drug therapy
CPT/HCPCS: 72131; 96372; 99282

== ENCOUNTER 2023-10-09 13:11 | Emergency (ER) | payer MEDICAID, SELFPAY ==
[2023-10-09 13:13] VITALS: BP 139/98; PULSE 77; RESP 13; TEMP 36.7; O2SAT 100; BMI 21.8
--- NOTE | 2023-10-09 13:26 | ED.RN ---
ATTEMPT TO CALL LEON- PTS BROTHER. PHONE NO LONGER IN SERVICE. PT GAVE THIS RN PERMISSION TO LOOK IN PHONE FOR YOUNG PHONE NUMBER [phone] ATTEMPT TO CALL WITH NO ANSWER. NO VOICEMAIL SET UP. WILL ATTEMPT TO CALL AGAIN
--- NOTE | 2023-10-09 13:56 | RAD_ITS ---
STUDY: X-RAY - LUMBAR SPINE REASON FOR EXAM: Male, 68 years old. Injury/Pain TECHNIQUE: 2 view(s) of the lumbar spine were obtained. COMPARISON: Comparison is made with prior study dated September 16, 2022 FINDINGS: Normal lumbar lordosis. There is no substantial scoliosis. There is a normal alignment of the vertebrae. There is multilevel endplate spondylosis of the lumbar vertebrae. This space narrowing at the L3-L4, L4-L5 and L5-S1 levels. Loss of height of the superior endplate of the L2 vertebrae suggestive of compression fracture. There is atherosclerotic calcification of the abdominal aorta without a demonstrated aneurysm. RAD/Lumbar Spine 2 or 3 Views IMPRESSION: Degenerative changes of the spine, as detailed above. Loss of height of the superior endplate of the L2 vertebra in keeping with compression fracture. This is new as compared to prior study. Electronically Signed: Sorin Sorensen MD at 14:51 EST ,
--- NOTE | 2023-10-09 13:56 | CT_ITS ---
STUDY: CT CERVICAL SPINE WITHOUT CONTRAST REASON FOR EXAM: Male, 68 years old. Injury/Pain RADIATION DOSAGE (If Supplied By Facility): CTDIvol = ( 17.25 ) mGy, DLP = ( 395.21 ) mGycm TECHNIQUE: High resolution transaxial imaging was performed without contrast material. Sagittal and coronal images were reconstructed. Individualized dose optimization techniques were used for this CT. COMPARISON: Comparison is made with prior study dated February 11, 2023. FINDINGS: Normal craniovertebral junction. There are degenerative changes of the anterior atlantoaxial articulation. Normal odontoid process. Normal cervical lordosis. Normal vertebral bodies and posterior osseous elements. C2-3: Normal endplates. Normal disc height and morphology. Normal central canal and intervertebral neuroforamina. C3-4: Normal endplates. Normal disc height and morphology. Normal central canal and intervertebral neuroforamina. C4-5: Moderate degree of disc space narrowing with spondylosis and subchondral sclerosis. Uncovertebral arthrosis with mild bilateral neural foraminal stenosis worse on the right side. Facet joint osteoarthritis and hypertrophy. C5-6: Mild degree of disc space narrowing. Spondylosis. Uncovertebral arthrosis. Mild bilateral neural foraminal stenosis. C6-7: Mild disc space narrowing. Uncovertebral arthrosis. Mild bilateral neural foraminal stenosis. C7-T1: Normal endplates. Normal disc height and morphology. Normal central canal and intervertebral neuroforamina. Normal visualized soft tissue structures. CT/Spine Cervical without Contras IMPRESSION: Multilevel degenerative changes, as described above. Stable examination. Electronically Signed: Sorin Sorensen MD at 14:38 EST ,
--- NOTE | 2023-10-09 14:10 | CT_ITS ---
STUDY: CT BRAIN WITHOUT CONTRAST REASON FOR EXAM: Male, 68 years old. Injury/Pain RADIATION DOSAGE (If Supplied By Facility): CTDIvol = ( 44.99 ) mGy, DLP = ( 812.98 ) mGycm TECHNIQUE: Transaxial CT imaging of the brain was performed without administration of intravenous contrast material. Individualized dose optimization techniques were used for this CT. COMPARISON: Comparison is made with prior study February 11, 2023. FINDINGS: Normal soft tissue structures. Presents of prior craniotomy in the left occipital parietal bone. Normal size ventricles and extra-axial spaces for the patient''s age. Normal white matter tracts of the cerebral hemispheres. Normal basal ganglia and thalami. Normal brainstem. Normal cerebellum. There is no intracranial hemorrhage. There are no findings of an acute ischemic infarction. Small mucosal polyp or retention cyst in the left frontal sinus. CT/Brain/Head without Contrast IMPRESSION: Stable examination. No acute abnormality is seen. Electronically Signed: Sorin Sorensen MD at 14:35 EST ,
[2023-10-09 14:12] VITALS: PULSE 85; RESP 15; O2SAT 95
[2023-10-09] MEDS: Morphine 4 MG/ML Syringe IV (14:12)
--- NOTE | 2023-10-09 14:22 | EDS_ITS ---
HPI HPI - Fall History of Present Illness Chief Complaint: Fall Informant: patient Occured/Mechanism Occurred: Today Mechanism/Context: Yes same level fall Pain/Injury Pain Location: head, neck and back Quality of Pain: Sharp and Stabbing Worsened by: Nothing Relieved by: Nothing Associated Symptoms Associated Symptoms: Positive for Parasthesias; Negative for Weakness, Loss of function, Inability to ambulate, Loss of consciousness or Amnesia Narrative Narrative: Patient presents after a fall that occurred today. Patient does not remember any of the events around the fall. Patient does not know if not denies ago and hit his head and does not know if unconscious. Patient does not know how long he was unconscious for. Patient admits to pain in his head, neck, and lower back. Patient states he has a history of compression fractures of L2 and L4. Patient describes his pain as sharp and stabbing. Patient does not know when his last tetanus was. [facility] Medical History Epilepsy Hemorrhoid High cholesterol Sciatica Home Medications omeprazole 20 mg capsule,delayed release 40 mg PO DAILY 03/23/22 [History Last Taken Unknown] gabapentin 300 mg capsule 300 mg PO 4X/DAY 04/02/22 [History Last Taken Unknown] hydrocortisone acetate 25 mg rectal suppository (Anusol-HC) 25 mg [place] QHS #12 ea 04/27/22 [Rx Last Taken Unknown] polyethylene glycol 3350 17 gram/dose oral powder (Miralax) 17 g PO DAILY #119 grams 04/27/22 [Rx Last Taken Unknown] atorvastatin 40 mg tablet (Lipitor) 40 mg PO QHS 01/13/23 [History Last Taken Unknown] polyethylene glycol 3350 17 gram/dose oral powder (ClearLax) 17 g PO DAILY #119 grams 05/31/23 [Rx Last Taken Unknown] cyclobenzaprine 10 mg tablet 10 mg PO TID PRN Muscle Spasm #20 TABLETS 08/09/23 [Rx Last Taken Unknown] acetaminophen 500 mg tablet mg 10/09/23 [History Last Taken Unknown] clopidogrel 75 mg tablet mg 10/09/23 [History Last Taken Unknown] duloxetine 30 mg capsule,delayed release mg PO 10/09/23 [History Last Taken Unknown] oxycodone 10 mg tablet mg 10/09/23 [History Last Taken Unknown] tamsulosin 0.4 mg capsule mg PO 10/09/23 [History Last Taken Unknown] Allergy/AdvReac Type Severity Reaction Status Date / Time adhesive tape [tape] AdvReac Rash Verified 05/31/23 10:23 hydrocodone [From [place]] AdvReac Upset Verified 05/31/23 10:23 Stomach ibuprofen AdvReac Upset Verified 05/31/23 10:23 Stomach ketorolac [From Toradol] AdvReac Rash Verified 05/31/23 10:23 naproxen AdvReac Rash Verified 05/31/23 10:23 tramadol AdvReac Upset Verified 05/31/23 10:23 Stomach Surgical History S/P clamping of cerebral aneurysm Social History household members: significant other Smoking Status: Former smoker alcohol intake: former substance use type: does not use ROS ROS ED Constitutional Constitutional ED: Denies chills or fever(s) Eyes Eyes: Denies blurry vision or change in vision ENT ENT ED: Denies rhinorrhea or sore throat Cardiovascular Cardiovascular: Denies chest pain or palpitations Respiratory/Chest Respiratory/Chest: Reports dyspnea; Denies cough Gastrointestinal Gastrointestinal: Denies nausea or vomiting Genitourinary Genitourinary ED: Denies dysuria or hematuria Musculoskeletal Musculoskeletal: Reports back pain and neck pain Integumentary Denies abscess or rash Neurologic Neurologic: Reports headache(s); Denies weakness Allergic/Immunologic Allergic/Immunologic ED: Denies mouth swelling or urticaria EXAM Physical Exam Const Vital Signs: 10/09/23 13:13 10/09/23 13:19 Temperature 98.1 F Temperature Source Oral Pulse Rate 77 Respiratory Rate 13 Respiratory Effort Normal Respiratory Depth Normal Respiratory Pattern Normal Blood Pressure 139/98 H Blood Pressure Mean 111 Pulse Ox 100 Oxygen Delivery Method Room Air Room Air Positive well nourished and well developed General Appearance ED: well developed and NAD HEENT Reports normocephalic atraumatic Neck no lymphadenopathy and supple Resp normal respiratory effort and clear to auscultation bilaterally Cardio regular rate and regular rhythm GI non-tender and non-distended Palpation: soft Neuro oriented x3, CN's II-XII intact bilaterally, moves all extremities, no focal motor deficits and no sensory deficits noted [place] Coma Scale: document GCS findings Spontaneous Obeys Commands Oriented 15 Sensorium / Orientation: alert Motor Exam: strength 5/5 throughout Psych mental status grossly normal and thought process normal MDM MDM MDM Narrative Medical decision making narrative: Differential diagnosis includes closed head injury, intracranial bleeding, cervical spine fracture, cervical strain, lumbar compression fracture, lumbosacral strain, and contusion. X-rays of the lumbar spine will be obtained to assess for lumbar compression fracture. CT scan of the brain will be obtained to assess for intracranial bleeding. CT scan of the cervical spine will be obtained to assess for cervical spine fracture and spondylolisthesis. Radiography X-Ray: LS SPine Diagnostic Testing: Clinical Impression(s) from Imaging Studies Cervical Spine CT 10/09/23 13:56 IMPRESSION: Multilevel degenerative changes, as described above. Stable examination. Electronically Signed: Sorin Sorensen MD at 14:38 EST , Lumbar Spine X-Ray 10/09/23 13:56 IMPRESSION: Degenerative changes of the spine, as detailed above. Loss of height of the superior endplate of the L2 vertebra in keeping with compression fracture. This is new as compared to prior study. Electronically Signed: Sorin Sorensen MD at 14:51 EST , Brain CT 10/09/23 14:10 IMPRESSION: Stable examination. No acute abnormality is seen. Electronically Signed: Sorin Sorensen MD at 14:35 EST , CT scan of the brain was obtained. There is no acute intracranial abnormality. This was interpreted by the radiologist and was also independently reviewed by myself. CT scan of the cervical spine was obtained. There is no acute fracture or spondylolisthesis. There are some degenerative changes noted. This was interpreted by the radiologist and was also independently reviewed by myself. X-rays of the lumbosacral spine were obtained. There are 2 views. On my independent interpretation, there is a compression of the L2 vertebrae. There are some degenerative changes noted. There is no spondylolisthesis noted. Radiologist also interpreted the x-rays and agrees. Treatment and Re-Evaluation Narrative: Patient was advised of his findings. Patient does report that he has a history of compression fracture of L2 and this is not new. Patient was given a dose of morphine here. Patient feels better on reevaluation. Patient is requesting an albuterol inhaler. Patient states he feels he needs a puff of his inhaler. Patient was given 2 puffs of his albuterol here. Patient was instructed to use this every 4 hours as needed. Patient was instructed to follow-up with his primary care physician in 5 to 7 days. Patient understood and was agreeable with the plan. All questions were answered. Discharge Plan Triage Chief Complaint: Fall ED Provider: Nicolás Rojas Dx/Rx/DC Orders Clinical Impression: Acute cervical myofascial strain, Concussion, Acute low back pain Instructions: ED Concussion, ED Back and Neck Pain, General Prescriptions: No Action omeprazole 20 mg capsule,delayed release(DR/EC) 40 mg PO DAILY Patient Comments: TAKE 1 CAPSULE BY MOUTH EVERY DAY IN THE MORNING BEFORE BREAKFAST gabapentin 300 mg capsule 300 mg PO 4X/DAY polyethylene glycol 3350 [Miralax] 17 gram/dose powder 17 g PO DAILY Qty: 119 0RF Rx Instructions: 1 cap per day hydrocortisone acetate [Anusol-HC] 25 mg suppository 25 mg [place] QHS Qty: 12 0RF atorvastatin [Lipitor] 40 mg Tablet 40 mg PO QHS polyethylene glycol 3350 [ClearLax] 17 gram/dose powder 17 g PO DAILY Qty: 119 0RF cyclobenzaprine 10 mg tablet 10 mg PO TID PRN (Reason: Muscle Spasm) Qty: 20 0RF clopidogrel 75 mg tablet Patient Comments: TAKE 1 TABLET BY MOUTH EVERY DAY acetaminophen 500 mg tablet tamsulosin 0.4 mg capsule PO Patient Comments: TAKE 1 CAPSULE BY MOUTH EVERY DAY FOR 90 DAY(S) duloxetine 30 mg capsule,delayed release(DR/EC) PO Patient Comments: TAKE 1 CAPSULE BY MOUTH TWICE A DAY oxycodone 10 mg tablet Patient Comments: TAKE 1 TABLET BY MOUTH EVERY 6 HOURS NEEDED FOR PAIN FOR 30 DAYS Primary Care Provider: Jefferson Gregorio Referrals: Jefferson Gregorio DO [Primary Care Provider] - 3-5 Days Activity Restrictions/Additional Instructions: Continue your oxycodone as previously prescribed to take for pain. Disposition Disposition: Home, Self Care
--- NOTE | 2023-10-09 14:24 | ED.RN ---
Initial documentation for Morphine was documented on the IM dose; Patient was medicated via IV dose. Morphine vial was thrown away before I realized I charted on the incorrect order.
[2023-10-09 15:12] VITALS: PULSE 79; RESP 17; O2SAT 97
[2023-10-09] MEDS: oxyCODONE 5 MG Tablet PO (15:40)
[2023-10-09] MEDS: Albuterol Sulfate 8 gm Inhaler (60 puffs) 2 PUFF INHALATION (15:40)
== END 2023-10-09 15:54 | disposition home or self-care (01) ==
PROVIDERS: Emergency Provider Emergency Medicine; PCP Student in an Organized Health Care Education/Training Program; Visit Provider Emergency Medicine
DX: S06.0X0A Concussion without loss of consciousness, initial encounter (principal); G40.909 Epilepsy, unspecified, not intractable, without status epilepticus; S16.1XXA Strain of muscle, fascia and tendon at neck level, initial encounter; E78.00 Pure hypercholesterolemia, unspecified; M54.50 Low back pain, unspecified; Z87.891 Personal history of nicotine dependence; W19.XXXA Unspecified fall, initial encounter; Z79.899 Other long term (current) drug therapy
CPT/HCPCS: 70450; 72100; 72125; 96372; 96374; 99283

== ENCOUNTER 2024-02-06 08:35 | Emergency (ER) | payer MEDICAID, SELFPAY ==
[2024-02-06 08:36] VITALS: BP 114/85; PULSE 81; RESP 18; TEMP 36.4; O2SAT 98; BMI 23.7
--- NOTE | 2024-02-06 08:47 | EX.ED.DYSGE1 ---
HPI History of Present Illness Chief Complaint: Allergic Reaction Narrative Narrative: 69-year-old male past medical history of chronic back pain presents with bee sting to his left heel. He states that yesterday they were cleaning the house and had the doors open. When he got out of bed and stepped down this morning, bee stung him in the left heel. He complains of localized pain, redness, and swelling to his left heel. It is worse with weightbearing. He states that he may have been stung by a bee years ago, and is unsure if he is had anaphylactic reaction to it. According to triage note, he is unsure as to what an epinephrine pen is. [facility] Medical History Epilepsy Hemorrhoid High cholesterol Sciatica Home Medications omeprazole 20 mg capsule,delayed release 40 mg PO DAILY 03/23/22 [History Last Taken Unknown] gabapentin 300 mg capsule 300 mg PO 4X/DAY 04/02/22 [History Last Taken Unknown] hydrocortisone acetate 25 mg rectal suppository (Anusol-HC) 25 mg [place] QHS #12 ea 04/27/22 [Rx Last Taken Unknown] polyethylene glycol 3350 17 gram/dose oral powder (Miralax) 17 g PO DAILY #119 grams 04/27/22 [Rx Last Taken Unknown] atorvastatin 40 mg tablet (Lipitor) 40 mg PO QHS 01/13/23 [History Last Taken Unknown] polyethylene glycol 3350 17 gram/dose oral powder (ClearLax) 17 g PO DAILY #119 grams 05/31/23 [Rx Last Taken Unknown] cyclobenzaprine 10 mg tablet 10 mg PO TID PRN Muscle Spasm #20 TABLETS 08/09/23 [Rx Last Taken Unknown] acetaminophen 500 mg tablet mg 10/09/23 [History Last Taken Unknown] clopidogrel 75 mg tablet mg 10/09/23 [History Last Taken Unknown] duloxetine 30 mg capsule,delayed release mg PO 10/09/23 [History Last Taken Unknown] oxycodone 10 mg tablet mg 10/09/23 [History Last Taken Unknown] tamsulosin 0.4 mg capsule mg PO 10/09/23 [History Last Taken Unknown] diphenhydramine HCl 25 mg capsule (Benadryl) 25 mg PO TID PRN allergic reaction #20 caps 02/06/24 [Rx Last Taken Unknown] Allergy/AdvReac Type Severity Reaction Status Date / Time adhesive tape [tape] AdvReac Rash Verified 02/06/24 08:35 hydrocodone [From [place]] AdvReac Upset Verified 02/06/24 08:35 Stomach ibuprofen AdvReac Upset Verified 02/06/24 08:35 Stomach ketorolac [From Toradol] AdvReac Rash Verified 02/06/24 08:35 naproxen AdvReac Rash Verified 02/06/24 08:35 tramadol AdvReac Upset Verified 02/06/24 08:35 Stomach Surgical History S/P clamping of cerebral aneurysm Social History household members: significant other Smoking Status: Former smoker alcohol intake: former substance use type: does not use ROS ROS ED ROS Narrative Constitutional: No fever, no chills. HEENT: No sore throat. No neck pain. No loss of vision. No rhinorrhea. Cardiovascular: No chest pain. No palpitations. No pedal edema. Respiratory: No cough, no shortness of breath. Abdominal: No abdominal pain. No nausea. No vomiting. Genitourinary: No dysuria. No hematuria. Musculoskeletal: No myalgias. No arthralgias. Pain, redness, and swelling to left heel. Neurologic: No headaches. No dizziness. No lightheadedness. Skin: No rash. No change in color. Psychiatric: No depression. No anxiety. EXAM Physical Exam Narrative Exam Narrative: Afebrile. Vital signs noted. Nontoxic-appearing. HEENT: Normocephalic. Atraumatic. PERRL, EOMI. Neck soft and supple. No point tenderness or step off. Airway patent. No drooling or trismus. No stridor. Cardiovascular: Regular rate and rhythm. No murmurs, rubs, or gallops appreciated. Respiratory: No tachypnea. Lungs clear to auscultation bilaterally. Gastrointestinal: Abdomen soft, nontender, with normoactive bowel sounds. No rebound or guarding. Neurological: Awake. Alert. Nonfocal, nonlateralizing. Skin: No rash. Normal color except mild erythema left heel diffusely. No pallor. Musculoskeletal: No pedal edema. Full range of motion extremities. Positive tenderness to palpation left heel. Positive dry skin. Const Vital Signs: 02/06/24 08:36 Temperature 97.6 F L Temperature Source Temporal Pulse Rate 81 Respiratory Rate 18 Blood Pressure 114/85 H Blood Pressure Mean 94 Pulse Ox 98 Oxygen Delivery Method Room Air MDM MDM MDM Narrative Medical decision making narrative: Patient's pulse ox is 98% on room air. He is not tachycardic. Additionally, he is not hypotensive. I do not feel he is having anaphylaxis to a bee sting. Also, I do not think this is cellulitis. Probably more of a localized reaction. Treatment be symptomatic. He was given Benadryl here and Tylenol as he is allergic to NSAIDs and some pain medications. I do not feel narcotic pain medication is indicated for his localized allergic reaction. Additionally, I do not feel that he needs an epinephrine pen or epinephrine here currently. He was given an ice pack for comfort. Upon repeat examination at approximately 10:05 AM, there is no sign of anaphylaxis. Once again I do not feel that he requires an epinephrine pen. He will continue ice and elevation of his left foot at home. I did write him a prescription for Benadryl to take up to 3 times a day for the localized swelling. He will continue his home pain medications. I feel he can be discharged to follow-up. Return instructions reviewed. Disposition is discharged home in stable condition. Discharge Plan Triage Chief Complaint: Allergic Reaction ED Provider: Micheal Sun Dx/Rx/DC Orders Clinical Impression: Local reaction to bee sting, Pain of left heel Instructions: ED Insect Sting, Local Reaction Prescriptions: New diphenhydramine HCl [Benadryl] 25 mg capsule 25 mg PO TID PRN (Reason: allergic reaction) Qty: 20 0RF No Action omeprazole 20 mg capsule,delayed release(DR/EC) 40 mg PO DAILY Patient Comments: TAKE 1 CAPSULE BY MOUTH EVERY DAY IN THE MORNING BEFORE BREAKFAST gabapentin 300 mg capsule 300 mg PO 4X/DAY polyethylene glycol 3350 [Miralax] 17 gram/dose powder 17 g PO DAILY Qty: 119 0RF Rx Instructions: 1 cap per day hydrocortisone acetate [Anusol-HC] 25 mg suppository 25 mg [place] QHS Qty: 12 0RF atorvastatin [Lipitor] 40 mg Tablet 40 mg PO QHS polyethylene glycol 3350 [ClearLax] 17 gram/dose powder 17 g PO DAILY Qty: 119 0RF cyclobenzaprine 10 mg tablet 10 mg PO TID PRN (Reason: Muscle Spasm) Qty: 20 0RF clopidogrel 75 mg tablet Patient Comments: TAKE 1 TABLET BY MOUTH EVERY DAY acetaminophen 500 mg tablet tamsulosin 0.4 mg capsule PO Patient Comments: TAKE 1 CAPSULE BY MOUTH EVERY DAY FOR 90 DAY(S) duloxetine 30 mg capsule,delayed release(DR/EC) PO Patient Comments: TAKE 1 CAPSULE BY MOUTH TWICE A DAY oxycodone 10 mg tablet Patient Comments: TAKE 1 TABLET BY MOUTH EVERY 6 HOURS NEEDED FOR PAIN FOR 30 DAYS Primary Care Provider: Jefferson Gregorio Referrals: Jefferson Gregorio DO [Primary Care Provider] - 1 Week if not improving Activity Restrictions/Additional Instructions: Ice to affected area 3 times a day for approximately 10 to 15 minutes each. Elevate your left foot when possible. Disposition Disposition: Home, Self Care
[2024-02-06] MEDS: Acetaminophen 325 MG Tablet 650 MG PO (09:53)
[2024-02-06] MEDS: DiphenhydrAMINE 25 MG Capsule PO (09:54)
[2024-02-06 10:11] VITALS: BP 124/78; PULSE 64; RESP 14; TEMP 36.4; O2SAT 99
== END 2024-02-06 10:12 | disposition home or self-care (01) ==
PROVIDERS: Emergency Provider Emergency Medicine; PCP Student in an Organized Health Care Education/Training Program; Visit Provider Emergency Medicine
DX: T63.444A Toxic effect of venom of bees, undetermined, initial encounter (principal); Z87.891 Personal history of nicotine dependence; E78.00 Pure hypercholesterolemia, unspecified; Z79.899 Other long term (current) drug therapy; M79.672 Pain in left foot
CPT/HCPCS: 99283

== ENCOUNTER 2024-07-01 19:39 | Emergency (ER) | payer MEDICAID, SELFPAY ==
[2024-07-01 19:40] VITALS: BP 102/76; PULSE 69; RESP 16; TEMP 36.8; O2SAT 100; BMI 21.7
--- NOTE | 2024-07-01 20:49 | EX.ED.DYSGE1 ---
HPI History of Present Illness Chief Complaint: Flank Pain [facility] Medical History Epilepsy Hemorrhoid High cholesterol Sciatica Home Medications ?Medication ?Instructions ?Recorded ?Last Taken ?Type omeprazole 20 mg capsule,delayed 40 mg PO DAILY 03/23/22 Unknown History release gabapentin 300 mg capsule 300 mg PO 4X/DAY 04/02/22 Unknown History hydrocortisone acetate 25 mg 25 mg [place] QHS #12 ea 04/27/22 Unknown Rx rectal suppository (Anusol-HC) polyethylene glycol 3350 17 17 g PO DAILY #119 grams 04/27/22 Unknown Rx gram/dose oral powder (Miralax) atorvastatin 40 mg tablet (Lipitor) 40 mg PO QHS 01/13/23 Unknown History polyethylene glycol 3350 17 17 g PO DAILY #119 grams 05/31/23 Unknown Rx gram/dose oral powder (ClearLax) cyclobenzaprine 10 mg tablet 10 mg PO TID PRN Muscle Spasm #20 08/09/23 Unknown Rx TABLETS acetaminophen 500 mg tablet mg 10/09/23 Unknown History clopidogrel 75 mg tablet mg 10/09/23 Unknown History duloxetine 30 mg capsule,delayed mg PO 10/09/23 Unknown History release oxycodone 10 mg tablet mg 10/09/23 Unknown History tamsulosin 0.4 mg capsule mg PO 10/09/23 Unknown History diphenhydramine HCl 25 mg capsule 25 mg PO TID PRN allergic reaction 02/06/24 Unknown Rx (Benadryl) #20 caps levofloxacin 750 mg tablet 750 mg PO DAILY 14 days #14 tabs 07/01/24 Unknown Rx ondansetron 4 mg disintegrating 4 mg PO Q8H PRN PRN Nausea #10 tabs 07/01/24 Unknown Rx tablet oxycodone 5 mg tablet 5 mg PO Q6H PRN pain 3 days #12 07/01/24 Unknown Rx tabs Allergy/AdvReac Type Severity Reaction Status Date / Time adhesive tape (tape) AdvReac Rash Verified 07/01/24 19:41 hydrocodone (From [place]) AdvReac Upset Verified 07/01/24 19:41 Stomach ibuprofen AdvReac Upset Verified 07/01/24 19:41 Stomach ketorolac (From Toradol) AdvReac Rash Verified 07/01/24 19:41 naproxen AdvReac Rash Verified 07/01/24 19:41 tramadol AdvReac Upset Verified 07/01/24 19:41 Stomach Surgical History S/P clamping of cerebral aneurysm Social History household members: significant other Smoking Status: Former smoker alcohol intake: former substance use type: does not use EXAM Physical Exam Const Vital Signs: 07/01/24 19:40 07/01/24 21:39 07/01/24 23:00 Temperature 98.2 F Temperature Source Temporal Pulse Rate 69 74 61 Respiratory Rate 16 18 18 Blood Pressure 102/76 108/77 118/79 Blood Pressure Mean 84 87 92 Pulse Ox 100 98 Oxygen Delivery Method Room Air Room Air MDM MDM MDM Narrative Medical decision making narrative: HISTORY OF PRESENT ILLNESS: 69-year-old male with history of hyperlipidemia, presents with flank pain dysuria for last 3 days. He further states 2 days of right flank pain. No falls or trauma. Worse with urination. No hematuria. No fevers or vomiting but notes nausea. Denies history of kidney stones. Denies history abdominal surgeries. Last bowel movement was yesterday. No melena hematochezia. REVIEW OF SYSTEMS: Pertinent positives: Flank pain, dysuria, nausea Pertinent negatives: Chest pain, shortness of breath fever vomiting PHYSICAL EXAM: Nursing triage notes reviewed, Vital signs reviewed Constitutional: please see mdm HENT: MMM Eyes: Pupils equal round and reactive to light, Extraocular muscles intact Neck: No stridor, no JVD, full neck ROM Lungs: Clear to auscultation, No wheezing or rales. No increased work of breathing, no conversational dyspnea, no accessory muscle use, no nasal flaring. No respiratory distress noted Heart: Regular rate and rhythm, No murmurs, No rubs and No gallops, 2+ distal pulses (radial, femoral, posterior tibial) in all extremities Abdomen: Soft, there is no tenderness, rigidity, rebound or guarding, no obvious peritoneal signs, no palpable pulsatile abdominal masses, no auscultated abdominal bruit : right CVA tenderness noted Extremities: No edema Neuro: No focal neurological deficits, cranial nerves II through XII intact, 5/5 strength in all extremities. Intact sensation to light touch in all extremities, 2+ reflexes bilateral patella tendons. Normal gait. No ataxia. Skin: No rash or lesions noted MEDICAL DECISION MAKING: Chief Complaint: Flank pain, dysuria External records reviewed: Reviewed prior imaging: Reviewed CT scan of the chest, abdomen/pelvis showed a fracture L2 vertebral body. Atherosclerotic changes of coronary arteries and aorta but no report of aortic aneurysm Factors affecting care: as per HPI [facility] Narrative: The patient was hemodynamically stable, afebrile and nontoxic-appearing. Exam with right CVA tenderness I considered the following differential diagnosis: Nephrolithiasis, pyelonephritis, traumatic injury to the right flank, AAA, I obtained a broad lab and imaging workup to further elucidate the etiology of patient's complaint. She has patient 1 L normal saline, 4 mg of IV Zofran, 4 mg IV morphine, 15 mg IV Toradol ALL IMAGES (IF OBTAINED) HAVE BEEN PERSONALLY REVIEWED AND INTERPRETED BY MYSELF. CT scan of abdomen pelvis shows no evidence of nephrolithiasis, no evidence of AAA, no evidence of diverticulitis obstruction or perforation. He did show signs of prostate enlargement which could be related to prostatitis. Although the patient's pain is in the right flank not in the lower abdomen. He did note some frequency and urgency of urination which may be related to prostate enlargement and BPH. Given concern for prostatitis we will treat empirically with 2 weeks of levofloxacin and have him follow-up with his primary care physician to assess if he should continue for the full 4 to 6-week treatment for prostatitis I sent his urine for culture. Urinalysis shows evidence of urine inflammation. I did send urine for culture Lactate is wnl indicating no end-organ hypoperfusion and/or hypoxia. Lipase is wnl indicating no pancreatic inflammation. CBC without leukocytosis, severe anemia, no thrombocytopenia. BMP without evidence of significant electrolyte abnormalities, no anion gap, no acute kidney injury. Lactate is wnl indicating no end-organ hypoperfusion and/or hypoxia. The synthesis of the patient's history, physical exam, labs images suggest potentially prostatitis versus BPH. Will give empiric treatment of levofloxacin. Follow-up with his primary care physician. I will send his urine for culture to identify causative organism. Gave strict return precautions and follow-up instructions. Also gave p.o. narcotics, Zofran to take as needed for pain control and nausea control. The patient and/or family, caregivers express understanding. The patient and/or family, caregivers agrees with the plan. Shared decision making: I will have a discussion with the patient and or visitors regarding risk/benefits of further testing or admission. They will be made aware of of the risk/benefits inherent in this decision they will be given the opportunity to voice understanding. Total critical care time today provided was at least 0 minutes. This excludes separately billable procedures. Critical care time (if documented) is secondary to the patient having high probability of clinically significant/life threatening deterioration in the patient's condition which required my urgent intervention. Impression: 1. Right flank pain 2. Prostate inflammation Dispo: Discharge home This note was generated with [employer] dictation software. It may contain incorrect words, spelling, and punctuation that were not noted in review of the chart prior to signing. Lab Data Labs: Laboratory Results - last 24 hr 07/01/24 07/01/24 07/01/24 20:05 21:15 22:56 WBC 6.9 RBC 4.48 L Hgb 13.4 Hct 40.8 MCV 91.1 MCH 29.9 MCHC 32.8 RDW Std Deviation 45.5 H RDW Coeff of Jerry 13.6 Plt Count 408 MPV 9.0 Immature Gran % (Auto) 0.300 Neut % (Auto) 57.7 Lymph % (Auto) 28.1 Piute % (Auto) 8.0 Eos % (Auto) 4.9 Baso % (Auto) 1.0 Absolute Neuts (auto) 4.0 Absolute Lymphs (auto) 1.94 Nucleated RBC % 1.3 Sodium 139 Potassium 3.9 Chloride 105 Carbon Dioxide 29.0 Anion Gap 5 BUN 16 Creatinine 1.19 Estim Creat Clear Calc 59.20 Est GFR (MDRD) Af Amer 78 Est GFR (MDRD) Non-Af 65 BUN/Creatinine Ratio 13.4 Glucose 95 Lactic Acid 0.8 Calcium 9.4 Total Bilirubin 0.80 AST 14 L ALT 23 Alkaline Phosphatase 90 Total Protein 8.3 H Albumin 4.2 Globulin 4.1 Albumin/Globulin Ratio 1.0 Lipase 29 Urine Color Yellow Urine Clarity Sl. Cloudy Urine pH 7.0 Ur Specific Helen 1.005 Urine Protein 15 H Urine Glucose (UA) Normal Urine Ketones Negative Urine Occult Blood Negative Urine Nitrite Negative Urine Bilirubin Negative Urine Urobilinogen Normal Ur Leukocyte Esterase 500 H Urine RBC 0 SEEN Urine WBC >100 SEEN Ur Squamous Epith Cells 0 SEEN Urine Bacteria 2+ Urine Mucus 0 SEEN Radiography Diagnostic Testing: Clinical Impression(s) from Imaging Studies Abdomen/Pelvis CT 07/01/24 20:55 IMPRESSION: No evidence for renal obstruction or ureteral calculus. Nonspecific prominence of the prostate with stranding in the fat. Cannot exclude possibility of prostatitis Small complex right renal cysts unchanged in size since prior exam Diverticular disease of the descending and sigmoid colon without evidence for acute diverticulitis No evidence for small bowel obstruction or other acute abnormality Electronically Signed: Will Cuellar MD at 22:52 EDT , Discharge Plan Triage Chief Complaint: Flank Pain ED Provider: Barrett Leonard Dx/Rx/DC Orders Instructions: Bacterial Prostatitis Prescriptions: New levofloxacin 750 mg tablet 750 mg PO DAILY 14 Days Qty: 14 0RF ondansetron 4 mg tablet,disintegrating 4 mg PO Q8H PRN PRN (Reason: Nausea) Qty: 10 0RF oxycodone 5 mg tablet 5 mg PO Q6H PRN (Reason: pain) 3 Days Qty: 12 0RF No Action omeprazole 20 mg capsule,delayed release(DR/EC) 40 mg PO DAILY Patient Comments: TAKE 1 CAPSULE BY MOUTH EVERY DAY IN THE MORNING BEFORE BREAKFAST gabapentin 300 mg capsule 300 mg PO 4X/DAY polyethylene glycol 3350 [Miralax] 17 gram/dose powder 17 g PO DAILY Qty: 119 0RF Rx Instructions: 1 cap per day hydrocortisone acetate [Anusol-HC] 25 mg suppository 25 mg OH QHS Qty: 12 0RF atorvastatin [Lipitor] 40 mg Tablet 40 mg PO QHS polyethylene glycol 3350 [ClearLax] 17 gram/dose powder 17 g PO DAILY Qty: 119 0RF cyclobenzaprine 10 mg tablet 10 mg PO TID PRN (Reason: Muscle Spasm) Qty: 20 0RF clopidogrel 75 mg tablet Patient Comments: TAKE 1 TABLET BY MOUTH EVERY DAY acetaminophen 500 mg tablet tamsulosin 0.4 mg capsule PO Patient Comments: TAKE 1 CAPSULE BY MOUTH EVERY DAY FOR 90 DAY(S) duloxetine 30 mg capsule,delayed release(DR/EC) PO Patient Comments: TAKE 1 CAPSULE BY MOUTH TWICE A DAY oxycodone 10 mg tablet Patient Comments: TAKE 1 TABLET BY MOUTH EVERY 6 HOURS NEEDED FOR PAIN FOR 30 DAYS diphenhydramine HCl [Benadryl] 25 mg capsule 25 mg PO TID PRN (Reason: allergic reaction) Qty: 20 0RF Primary Care Provider: Jefferson Gregorio Referrals: Pascual Sumner MD [Med Staff - Active Staff] - Jefferson Gregorio DO [Primary Care Provider] - Activity Restrictions/Additional Instructions: Thank you for trusting us with your care today! Please take Tylenol (2 pills, 650 mg), ibuprofen (2 pills, 400 mg) every 6 hours as needed for pain and fever control. If the above regimen does not control your symptoms please take oxycodone for breakthrough pain. Please also take Zofran as needed for nausea Please continue levofloxacin until course complete to treat possible bacterial inflammation of your prostate. Please return to the emergency department if your symptoms change or worsen. Please follow with your primary care physician for further outpatient evaluation and management. Print Language: [place] Disposition Disposition: Home, Self Care
--- NOTE | 2024-07-01 20:55 | CT_ITS ---
STUDY: CT ABDOMEN AND PELVIS WITH CONTRAST REASON FOR EXAM: Male, 69 years old. Abdominal pain, right flank pain RADIATION DOSAGE (If Supplied By Facility): CTDIvol = ( 12.39 ) mGy, DLP = ( 788.10 ) mGycm TECHNIQUE: Transaxial images were obtained from the dome of the diaphragm to the symphysis pubis without oral contrast. IV 100mL [id number]-[id number] was administered. Sagittal and coronal images were reconstructed. Individualized dose optimization techniques were used for this CT. COMPARISON: February 11, 2023 FINDINGS: Minor atelectasis within the dependent portion of the lower lobes. Small calcified granuloma in left lower lobe The visualized portions of the heart are within normal limits. Normal liver. Normal gallbladder and extrahepatic biliary system. Tiny calcified granulomata within normal size spleen. Normal pancreas. Normal bilateral adrenal glands. There is no evidence for renal obstruction. There is a parapelvic cyst in left kidney. There are 2 complex cysts in the right kidney unchanged in size since prior exam Normal visualized stomach. Normal small intestine. Diffuse fecal retention seen throughout the colon. The appendix is visualized and appears normal. Mild atherosclerotic changes of the aorta without evidence for aneurysm. Normal inferior vena cava. Normal retroperitoneum. There is concentric thickening of the babb of bladder in association with nonspecific enlargement of the prostate with stranding in the fat Cannot definitively exclude the possibility of prostatitis Normal abdominal wall. Lumbar spine demonstrates degenerative changes CT/Abdomen/Pelvis W IV Cont ONLY IMPRESSION: No evidence for renal obstruction or ureteral calculus. Nonspecific prominence of the prostate with stranding in the fat. Cannot exclude possibility of prostatitis Small complex right renal cysts unchanged in size since prior exam Diverticular disease of the descending and sigmoid colon without evidence for acute diverticulitis No evidence for small bowel obstruction or other acute abnormality Electronically Signed: Will Cuellar MD at 22:52 EDT ,
[2024-07-01 21:10] LABS: Absolute Lymphocyte Count 1.94 X10^3/uL (0.83-4.51); Basophil# 0.07 X10^3/uL; Eosinophil# 0.34 X10^3/uL; Eosinophils% 4.9 % (0-5); Hematocrit 40.8 % (40-54); Hemoglobin 13.4 g/dL (13.0-16.5); Lymphocyte # 1.94 X10^3/ul (0.83-4.51); Lymphocyte % 28.1 % (19-41); Mean Corp Hgb Conc 32.8 g/dL (32-36); Mean Corpuscular Hgb 29.9 pg (27.0-32.0); Mean Corpuscular Volume 91.1 fL (80-94); Monocyte# 0.55 X10^3/uL; NRBC Flagged by Analyzer 1.3 % (0-5); Neutrophil # 3.99 X10^3/uL (2.7-7.7); Neutrophil % 57.7 % (47-70); Platelet Count 408 K/mm3 (150-450); RBC Distribution Width CV 13.6 % (11.6-14.6); RBC Distribution Width SD 45.5 fl (35.1-43.9); Red Blood Count 4.48 M/mm3 (4.6-6.2); White Blood Count 6.9 K/mm3 (4.4-11.0)
[2024-07-01] MEDS: Ondansetron 4 MG/2 ML Vial IV (21:14)
[2024-07-01] MEDS: Morphine 4 MG/ML Syringe IV ×2 (21:14→23:05)
[2024-07-01] MEDS: 0.9% Normal Saline (1000mL) 1,000 ML 999 ML IV (21:14)
[2024-07-01 21:39] VITALS: BP 108/77; PULSE 74; RESP 18; O2SAT 98
[2024-07-01 21:48] LABS: Lactic Acid 0.8 mmol/L (0.4-1.9)
[2024-07-01 22:03] LABS: AST(SGOT) 14 U/L (15-37); Alanine Aminotransfer ALT/SGPT 23 U/L (16-61); Albumin, Serum 4.2 g/dL (3.2-5.0); Alkaline Phosphatase 90 U/L (45-117); Anion Gap 5 (5-15); BUN 16 mg/dL (7-18); BUN/Creat Ratio 13.4 RATIO (10-20); Calcium,Total 9.4 mg/dL (8.5-10.1); Chloride 105 mmol/L (98-107); Creatinine, Serum 1.19 mg/dL (0.70-1.30); EST Glomerular Filtration Rate 65 mL/min (>60); Est Glom Filt Rate - Afr Amer 78 mL/min (>60); Globulin 4.1 g/dL (2.2-4.2); Glucose 95 mg/dL (74-106); Lipase 29 U/L (13-75); Potassium 3.9 mmol/L (3.5-5.1); Protein, Total 8.3 g/dL (6.4-8.2); Sodium Level 139 mmol/L (136-145)
[2024-07-01 22:59] LABS: Mucous, Urine 0 SEEN /hpf (<or=2+); Red Blood Cells-Urine 0 SEEN /hpf (0-5); Squamous Epithelial Cells - UA 0 SEEN /hpf (0-5)
[2024-07-01 23:00] VITALS: BP 118/79; PULSE 61; RESP 18
[2024-07-01 23:01] LABS: Color, Urine Yellow (Yellow); Glucose, Dipstick Normal (Normal); Ketone-Dipstick Negative (Negative); Leukocyte Esterase-Dipstick 500 /ul (Negative); Nitrite-Dipstick Negative (Negative); Occult Blood-Urine Negative /ul (Negative); Protein-Dipstick 15 mg/dl (Negative); Specific Gravity, Urine 1.005 (1.002-1.030); Urine Bilirubin Dipstick Negative (Negative); Urine Clarity Sl. Cloudy (Clear); Urine Urobilinogen Normal (Normal)
[2024-07-01 23:13] LABS: Bacteria 2+ /hpf (None Seen); White Blood Cells >100 SEEN /hpf (0-5)
== END 2024-07-01 23:19 | disposition home or self-care (01) ==
PROVIDERS: Emergency Provider Emergency Medicine; PCP Student in an Organized Health Care Education/Training Program; Visit Provider Emergency Medicine
DX: R10.9 Unspecified abdominal pain (principal); E78.00 Pure hypercholesterolemia, unspecified; Z87.891 Personal history of nicotine dependence; I25.10 Atherosclerotic heart disease of native coronary artery without angina pectoris; N41.9 Inflammatory disease of prostate, unspecified
CPT/HCPCS: 74177; 80053; 81001; 83605; 83690; 85025; 87086; 96361; 96374; 96375; 99283; J7030; Q9967; A4216; J2405

== ENCOUNTER 2024-07-06 17:54 | Emergency (ER) | payer MEDICAID, SELFPAY ==
[2024-07-06 17:55] VITALS: BP 110/75; PULSE 80; RESP 18; TEMP 36.7; O2SAT 98; BMI 21.0
--- NOTE | 2024-07-06 18:36 | CT_ITS ---
STUDY: CT ABDOMEN AND PELVIS WITHOUT CONTRAST REASON FOR EXAM: Male, 69 years old. left flank pain, hx of kidney stones RADIATION DOSAGE (If Supplied By Facility): CTDIvol = ( 6.46 ) mGy, DLP = ( 398.23 ) mGycm TECHNIQUE: Transaxial images were obtained from the dome of the diaphragm to the symphysis pubis without oral contrast, and without intravenous contrast. Sagittal and coronal images were reconstructed. Individualized dose optimization techniques were used for this CT. COMPARISON: None. FINDINGS: The visualized lung bases are unremarkable. The visualized portions of the heart are within normal limits. Normal liver. Normal gallbladder and extrahepatic biliary system. Granulomatous calcifications in the spleen. Normal pancreas. Normal bilateral adrenal glands. Bilateral renal cysts. Nonobstructive punctate right renal stone. Normal visualized stomach. Slightly fluid distended proximal small intestine. Normal colon. The appendix is visualized and appears normal. Calcified abdominal aorta with mild distal dilatation up to 2.2 cm in diameter. Normal inferior vena cava. Normal retroperitoneum. Normal urinary bladder. Left hydrocele. Normal abdominal wall. Normal osseous structures. CT/Abdomen/Pelvis without Cont IMPRESSION: Bilateral renal cysts. Punctate right renal stone. Left hydrocele. Possible mild small bowel ileus. Electronically Signed: Richard Cortez DO at 19:44 EDT ,
--- NOTE | 2024-07-06 18:38 | EX.ED.DYSGE1 ---
HPI History of Present Illness Chief Complaint: Flank Pain Detail of Chief Complaint: Left flank pain Informant: patient Narrative Narrative: Patient presents with left flank pain that started this morning. Has history of kidney stone that was diagnosed on the opposite side on the right about a week and a half ago. Patient states that he started with pain on his left side today that radiates towards his left testicle. She had some nausea but no vomiting. Mild dysuria. Denies fever. Denies injury to his back. [facility] Medical History Epilepsy Hemorrhoid High cholesterol Sciatica Home Medications ?Medication ?Instructions ?Recorded ?Last Taken ?Type omeprazole 20 mg capsule,delayed 40 mg PO DAILY 03/23/22 Unknown History release gabapentin 300 mg capsule 300 mg PO 4X/DAY 04/02/22 Unknown History hydrocortisone acetate 25 mg 25 mg MI QHS #12 ea 04/27/22 Unknown Rx rectal suppository (Anusol-HC) polyethylene glycol 3350 17 17 g PO DAILY #119 grams 04/27/22 Unknown Rx gram/dose oral powder (Miralax) atorvastatin 40 mg tablet (Lipitor) 40 mg PO QHS 01/13/23 Unknown History polyethylene glycol 3350 17 17 g PO DAILY #119 grams 05/31/23 Unknown Rx gram/dose oral powder (ClearLax) cyclobenzaprine 10 mg tablet 10 mg PO TID PRN Muscle Spasm #20 08/09/23 Unknown Rx TABLETS acetaminophen 500 mg tablet mg 10/09/23 Unknown History clopidogrel 75 mg tablet mg 10/09/23 Unknown History duloxetine 30 mg capsule,delayed mg PO 10/09/23 Unknown History release oxycodone 10 mg tablet mg 10/09/23 Unknown History tamsulosin 0.4 mg capsule mg PO 10/09/23 Unknown History diphenhydramine HCl 25 mg capsule 25 mg PO TID PRN allergic reaction 02/06/24 Unknown Rx (Benadryl) #20 caps levofloxacin 750 mg tablet 750 mg PO DAILY 14 days #14 tabs 07/01/24 Unknown Rx ondansetron 4 mg disintegrating 4 mg PO Q8H PRN PRN Nausea #10 tabs 07/01/24 Unknown Rx tablet oxycodone 5 mg tablet 5 mg PO Q6H PRN pain 3 days #12 07/01/24 Unknown Rx tabs Allergy/AdvReac Type Severity Reaction Status Date / Time adhesive tape (tape) AdvReac Rash Verified 07/06/24 17:55 hydrocodone (From [place]) AdvReac Upset Verified 07/06/24 17:55 Stomach ibuprofen AdvReac Upset Verified 07/06/24 17:55 Stomach ketorolac (From Toradol) AdvReac Rash Verified 07/06/24 17:55 naproxen AdvReac Rash Verified 07/06/24 17:55 tramadol AdvReac Upset Verified 07/06/24 17:55 Stomach Surgical History S/P clamping of cerebral aneurysm Social History household members: significant other Smoking Status: Former smoker alcohol intake: former substance use type: does not use ROS ROS ED Review of Systems ROS Unobtainable: other Constitutional Constitutional ED: Reports lethargy; Denies chills, fever(s), sweats or weight loss Eyes Eyes: Denies blurry vision, change in vision or diplopia ENT ENT ED: Denies rhinorrhea or sore throat Cardiovascular Cardiovascular: Denies chest pain, orthopnea or racing heartbeat Respiratory/Chest Respiratory/Chest: Denies cough, dyspnea, dyspnea on exertion, orthopnea or sputum Gastrointestinal Gastrointestinal: Denies abdominal pain, diarrhea, nausea or vomiting Genitourinary Genitourinary ED: Denies dysuria, hematuria or urinary frequency Musculoskeletal Musculoskeletal: Reports other Details: Left flank pain ; Denies arthralgias, back pain, myalgias or neck pain Integumentary Denies abscess, Abrasions or rash Neurologic Neurologic: Denies headache(s) or weakness Psychiatric Psychiatric: Denies anxiety, depression or suicidal thoughts Endocrine Endocrinology: Denies polydipsia, polyphagia or polyuria Hematologic/Lymphatic Hematologic/Lymphatic: Denies easy bleeding, easy bruising or lymphadenopathy Allergic/Immunologic Allergic/Immunologic ED: Denies mouth swelling, tongue swelling or urticaria EXAM Physical Exam Const Vital Signs: 07/06/24 17:55 07/06/24 19:54 07/06/24 21:03 Temperature 98.1 F 97.5 F L Temperature Source Temporal Pulse Rate 80 52 L 72 Respiratory Rate 18 16 15 Blood Pressure 110/75 151/82 H 129/64 H Blood Pressure Mean 86 105 85 Pulse Ox 98 99 94 Oxygen Delivery Method Room Air Room Air Positive well nourished and well developed General Appearance ED: well developed and NAD HEENT Reports TM's clear and moist mucous membranes normocephalic and atraumatic; Negative for trauma or tenderness Tympanic Membrane ED: Yes TM's clear Eyes PERRL and EOMs intact bilaterally General Eye ED: Negative for pale conjunctiva or scleral icterus Neck no lymphadenopathy, supple and no JVD General: Negative for tenderness Chest Wall inspection of chest normal and palpation of chest normal Chest: Negative for tenderness Resp normal respiratory effort and clear to auscultation bilaterally Effort and Inspection: Negative for respiratory distress or pain with movement Auscultation: Negative for rhonchi, wheezes or diminished lung sounds Cardio regular rate, regular rhythm, S1 normal heart sound, S2 normal heart sound and no murmurs Peripheral Pulses: pulses 2+ throughout GI normal to inspection, nondistended, normoactive bowel sounds, soft to palpation, non-distended and no masses GI Narrative: Mild tenderness palpation over left lower quadrant. No rebound, rigidity, or peritoneal signs. No mass palpated. Back/Spine no thoracic nor lumbar tenderness Back/Spine Narrative: Left CVA tenderness, patient has some diffuse tenderness over lumbar paraspinal musculature on the left. Negative straight leg raises. Deep tendon reflexes plus 2 out of 4 bilaterally at the patella and Achilles. Patient has normal L5 extension bilaterally. Patient has normal sensation to light touch bilaterally. Extremity normal to inspection General Extremety ED: Negative for edema General Extremity: Negative for edema Neuro oriented x3, CN's II-XII intact bilaterally, no sensory deficits noted and gait normal Sensorium / Orientation: awake, alert, oriented to person, oriented to place and oriented to time Motor Exam: strength 5/5 throughout and strength abnormal Psych mental status grossly normal Skin no rashes or lesions noted and no wounds MDM MDM MDM Narrative Medical decision making narrative: Patient presents with back pain that seems positional at times. Concern for a kidney stone because he had 1 on the opposite side about 5 days ago. In the differential would be kidney stone versus UTI versus musculoskeletal back pain versus other acute intra-abdominal pathology. IV line established. He was medicated Dilaudid and Zofran. IV line established. CBC with differential white count of 8.8 with hemoglobin 13 and platelet count of 337. Chemistries unremarkable. Urinalysis was normal. CT flank showed no evidence of urolithiasis or acute process. At this point suspect likely musculoskeletal etiology for his pain. Patient was given a second dose of Dilaudid 1 mg IV. He will be given a prescription for Percocet and Flexeril. Advised to follow-up with his primary care physician 3 to 5 days. Patient has no radiculopathic signs or symptoms. Lab Data Attestation: I reviewed the patient's lab results. Labs: Laboratory Results - last 24 hr 07/06/24 07/06/24 18:37 18:55 WBC 8.8 RBC 4.40 L Hgb 13.1 Hct 40.1 MCV 91.1 MCH 29.8 MCHC 32.7 RDW Std Deviation 44.9 H RDW Coeff of Jerry 13.3 Plt Count 337 MPV 8.9 Immature Gran % (Auto) 0.200 Neut % (Auto) 61.4 Lymph % (Auto) 22.9 [place] % (Auto) 10.5 H Eos % (Auto) 4.4 Baso % (Auto) 0.6 Absolute Neuts (auto) 5.4 Absolute Lymphs (auto) 2.02 Nucleated RBC % 0 Sodium 136 Potassium 3.7 Chloride 103 Carbon Dioxide 27.0 Anion Gap 6 BUN 17 Creatinine 1.11 Estim Creat Clear Calc 61.75 Est GFR (MDRD) Af Amer 85 Est GFR (MDRD) Non-Af 70 BUN/Creatinine Ratio 15.3 Glucose 96 Calcium 9.5 Urine Color Yellow Urine Clarity Sl. Cloudy Urine pH 6.5 Ur Specific [place] 1.010 Urine Protein 15 H Urine Glucose (UA) Normal Urine Ketones Negative Urine Occult Blood 10 H Urine Nitrite Negative Urine Bilirubin Negative Urine Urobilinogen 4 H Ur Leukocyte Esterase 25 H Urine RBC 0 SEEN Urine WBC 0 SEEN Ur Squamous Epith Cells 0-5 SEEN Urine Bacteria 0 SEEN Urine Mucus 0 SEEN Radiography Diagnostic Testing: Clinical Impression(s) from Imaging Studies Abdomen/Pelvis CT 07/06/24 18:36 IMPRESSION: Bilateral renal cysts. Punctate right renal stone. Left hydrocele. Possible mild small bowel ileus. Electronically Signed: Richard Cortez DO at 19:44 EDT Reading Location ID and State: [facility] / [place] Tel [phone], Service support , Discharge Plan Triage Chief Complaint: Flank Pain ED Provider: Abril Veladre Dx/Rx/DC Orders Clinical Impression: Back pain Instructions: ED Back Pain (Acute or Chronic), ED Flank Pain, Uncertain Cause Prescriptions: No Action omeprazole 20 mg capsule,delayed release(DR/EC) 40 mg PO DAILY Patient Comments: TAKE 1 CAPSULE BY MOUTH EVERY DAY IN THE MORNING BEFORE BREAKFAST gabapentin 300 mg capsule 300 mg PO 4X/DAY polyethylene glycol 3350 [Miralax] 17 gram/dose powder 17 g PO DAILY Qty: 119 0RF Rx Instructions: 1 cap per day hydrocortisone acetate [Anusol-HC] 25 mg suppository 25 mg MI QHS Qty: 12 0RF atorvastatin [Lipitor] 40 mg Tablet 40 mg PO QHS polyethylene glycol 3350 [ClearLax] 17 gram/dose powder 17 g PO DAILY Qty: 119 0RF cyclobenzaprine 10 mg tablet 10 mg PO TID PRN (Reason: Muscle Spasm) Qty: 20 0RF clopidogrel 75 mg tablet Patient Comments: TAKE 1 TABLET BY MOUTH EVERY DAY acetaminophen 500 mg tablet tamsulosin 0.4 mg capsule PO Patient Comments: TAKE 1 CAPSULE BY MOUTH EVERY DAY FOR 90 DAY(S) duloxetine 30 mg capsule,delayed release(DR/EC) PO Patient Comments: TAKE 1 CAPSULE BY MOUTH TWICE A DAY oxycodone 10 mg tablet Patient Comments: TAKE 1 TABLET BY MOUTH EVERY 6 HOURS NEEDED FOR PAIN FOR 30 DAYS diphenhydramine HCl [Benadryl] 25 mg capsule 25 mg PO TID PRN (Reason: allergic reaction) Qty: 20 0RF levofloxacin 750 mg tablet 750 mg PO DAILY 14 Days Qty: 14 0RF ondansetron 4 mg tablet,disintegrating 4 mg PO Q8H PRN PRN (Reason: Nausea) Qty: 10 0RF oxycodone 5 mg tablet 5 mg PO Q6H PRN (Reason: pain) 3 Days Qty: 12 0RF Primary Care Provider: Jefferson Gregorio Referrals: Jefferson Gregorio DO [Primary Care Provider] - 3-5 Days Print Language: Nigerian Disposition Disposition: Home, Self Care
[2024-07-06] MEDS: 0.9% Normal Saline (1000mL) 1,000 ML 150 ML IV (18:54)
[2024-07-06] MEDS: HYDROmorphone 1 MG/ML Syringe IV ×2 (18:55→20:58)
[2024-07-06] MEDS: Ondansetron 4 MG/2 ML Vial IV (18:55)
[2024-07-06 19:10] LABS: Absolute Lymphocyte Count 2.02 X10^3/uL (0.83-4.51); Absolute Neutrophil Count 5.4 X10^3/uL (2.0-7.7); Basophil# 0.05 X10^3/uL; Basophil% 0.6 % (0-1); Eosinophil# 0.39 X10^3/uL; Eosinophils% 4.4 % (0-5); Hematocrit 40.1 % (40-54); Hemoglobin 13.1 g/dL (13.0-16.5); Lymphocyte # 2.02 X10^3/ul (0.83-4.51); Lymphocyte % 22.9 % (19-41); Mean Corp Hgb Conc 32.7 g/dL (32-36); Mean Corpuscular Hgb 29.8 pg (27.0-32.0); Mean Corpuscular Volume 91.1 fL (80-94); Mean Platelet Vol. 8.9 fl (6.2-12.0); Monocyte# 0.93 X10^3/uL; Monocyte% 10.5 % (0-10); NRBC Flagged by Analyzer 0 % (0-5); Neutrophil # 5.42 X10^3/uL (2.7-7.7); Neutrophil % 61.4 % (47-70); Platelet Count 337 K/mm3 (150-450); RBC Distribution Width CV 13.3 % (11.6-14.6); RBC Distribution Width SD 44.9 fl (35.1-43.9); White Blood Count 8.8 K/mm3 (4.4-11.0)
[2024-07-06 19:14] LABS: Bacteria 0 SEEN /hpf (None Seen); Mucous, Urine 0 SEEN /hpf (<or=2+); Red Blood Cells-Urine 0 SEEN /hpf (0-5); White Blood Cells 0 SEEN /hpf (0-5)
[2024-07-06 19:20] LABS: Color, Urine Yellow (Yellow); Glucose, Dipstick Normal (Normal); Ketone-Dipstick Negative (Negative); Leukocyte Esterase-Dipstick 25 /ul (Negative); Nitrite-Dipstick Negative (Negative); Occult Blood-Urine 10 /ul (Negative); Protein-Dipstick 15 mg/dl (Negative); Urine Bilirubin Dipstick Negative (Negative); Urine Clarity Sl. Cloudy (Clear); Urine Urobilinogen 4 mg/dl (Normal); Urine pH 6.5 (5.0 - 8.0)
[2024-07-06 19:29] LABS: Anion Gap 6 (5-15); BUN 17 mg/dL (7-18); BUN/Creat Ratio 15.3 RATIO (10-20); Calcium,Total 9.5 mg/dL (8.5-10.1); Chloride 103 mmol/L (98-107); Creatinine, Serum 1.11 mg/dL (0.70-1.30); EST Glomerular Filtration Rate 70 mL/min (>60); Est Glom Filt Rate - Afr Amer 85 mL/min (>60); Estimated Creatinine Clearance 61.75 ml/min; Glucose 96 mg/dL (74-106); Potassium 3.7 mmol/L (3.5-5.1); Sodium Level 136 mmol/L (136-145)
[2024-07-06 19:37] LABS: Squamous Epithelial Cells - UA 0-5 SEEN /hpf (0-5)
[2024-07-06 19:54] VITALS: BP 151/82; PULSE 52; RESP 16; O2SAT 99
[2024-07-06 21:03] VITALS: BP 129/64; PULSE 72; RESP 15; TEMP 36.4; O2SAT 94
== END 2024-07-06 21:22 | disposition home or self-care (01) ==
PROVIDERS: Emergency Provider Emergency Medicine; PCP Student in an Organized Health Care Education/Training Program; Visit Provider Emergency Medicine
DX: M54.9 Dorsalgia, unspecified (principal); E78.00 Pure hypercholesterolemia, unspecified; Z87.891 Personal history of nicotine dependence; Z79.899 Other long term (current) drug therapy
CPT/HCPCS: 74176; 80048; 81001; 85025; 96361; 96374; 96375; 96376; 99283; J7030; A4216; J2405

== ENCOUNTER 2024-11-05 14:15 | Emergency (ER) | payer MEDICAID, SELFPAY ==
[2024-11-05 14:16] VITALS: BP 168/106; PULSE 76; RESP 18; TEMP 36.2; O2SAT 99; BMI 21.9
--- NOTE | 2024-11-05 14:47 | CT_ITS ---
STUDY: CT CHEST, ABDOMEN T PELVIS WITH CONTRAST REASON FOR EXAM: Male, 69 years old. fall off lader neck and back pain -- TRAUMA ONLY: IV Contrast. Dont wait for creatinine RADIATION DOSAGE (If Supplied By Facility): CTDIvol = ( 14.25 ) mGy, DLP = ( 1414.59 ) mGycm TECHNIQUE: Transaxial imaging was performed following intravenous administration of IV 100mL Isovue-300. Individualized dose optimization techniques were used for this CT. COMPARISON: No relevant priors. FINDINGS: CHEST Mild increased linear markings at the lung bases suggestive of scarring. There is no demonstrated pleural abnormality. Normal heart and pericardium. Normal mediastinum. Normal hilar regions. Normal unenhanced pulmonary arteries. There is atherosclerotic calcification of the aortic arch. There are multi-level degenerative changes of the thoracic spine. Loss of height of the L1 superior endplate. There is no demonstrated abnormality of the visualized upper abdomen. ABDOMEN Normal liver. Normal gallbladder and extrahepatic biliary system. Normal spleen. Normal pancreas. Normal bilateral adrenal glands. Small bilateral renal cysts. Normal visualized stomach. Normal small intestine. There are multiple colonic diverticula consistent with diverticulosis. The appendix is visualized and appears normal. Normal abdominal aorta. Normal inferior vena cava. Normal retroperitoneum. Normal abdominal wall. Loss of height of the superior endplate of the L2 vertebrae. With the history of trauma, this could represent a compression fracture. PELVIS Normal urinary bladder. Mild enlargement of the prostate. There is no pelvic fluid. There is no pelvic lymphadenopathy or mass lesion. Normal visualized pelvic arteries. CT/CT Chest, Abd, Pel w/Contrast IMPRESSION: Findings suggestive of a nondisplaced compression fracture of the superior endplate of the L2 vertebrae. Electronically Signed: Sorin Sorensen MD at 15:45 EST ,
--- NOTE | 2024-11-05 14:47 | CT_ITS ---
STUDY: CT CERVICAL SPINE WITHOUT CONTRAST REASON FOR EXAM: Male, 69 years old. Trauma RADIATION DOSAGE (If Supplied By Facility): CTDIvol = ( 18.11 ) mGy, DLP = ( 383.32 ) mGycm TECHNIQUE: High resolution transaxial imaging was performed without contrast material. Sagittal and coronal images were reconstructed. Individualized dose optimization techniques were used for this CT. COMPARISON: None FINDINGS: Normal craniovertebral junction. Normal anterior atlantoaxial articulation. Normal odontoid process. Normal cervical lordosis. Normal vertebral bodies and posterior osseous elements. C2-3: Normal endplates. Normal disc height and morphology. Normal central canal and intervertebral neuroforamina. C3-4: Normal endplates. Normal disc height and morphology. Normal central canal and intervertebral neuroforamina. C4-5: Degenerative spurs at the endplates. Narrowed disc height. Normal central canal. Uncovertebral spurs narrowing the intervertebral neuroforamina. C5-6: Degenerative spurs at the endplates. Narrowed disc height. Normal central canal. Uncovertebral spurs narrowing the intervertebral neuroforamina, left more than right. C6-7: Normal endplates. Normal disc height and morphology. Normal central canal. Uncovertebral spurs slightly narrowing the intervertebral neuroforamina. C7-T1: Normal endplates. Normal disc height and morphology. Normal central canal. Facet hypertrophy slightly narrowing the intervertebral neuroforamina. Normal visualized soft tissue structures. CT/Spine Cervical without Contras IMPRESSION: Degenerative changes of the cervical spine. Electronically Signed: Richard Cortez DO at 16:57 EST Reading Location ID and State: [facility] / [place] Tel [phone], Service support ,
--- NOTE | 2024-11-05 14:47 | CT_ITS ---
STUDY: CT BRAIN WITHOUT CONTRAST REASON FOR EXAM: Male, 69 years old. Trauma RADIATION DOSAGE (If Supplied By Facility): CTDIvol = ( 44.99 ) mGy, DLP = ( 829.85 ) mGycm TECHNIQUE: Transaxial CT imaging of the brain was performed without administration of intravenous contrast material. Individualized dose optimization techniques were used for this CT. COMPARISON: Comparison is made with prior study October 09, 2023. FINDINGS: Normal soft tissue structures. Findings suggestive of prior left posterior occipital craniotomy. Normal size ventricles and extra-axial spaces for the patient''s age. Normal white matter tracts of the cerebral hemispheres. Normal basal ganglia and thalami. Normal brainstem. Normal cerebellum. There is no intracranial hemorrhage. There are no findings of an acute ischemic infarction. Normal visualized paranasal sinuses. CT/Brain/Head without Contrast IMPRESSION: No acute abnormality is seen. Electronically Signed: Sorin Sorensen MD at 15:46 EST ,
[2024-11-05] MEDS: Ondansetron 4 MG/2 ML Vial IV (14:54)
[2024-11-05] MEDS: 0.9% Normal Saline (1000mL) 1,000 ML 999 ML IV (14:54)
[2024-11-05] MEDS: Morphine 4 MG/ML Syringe IV ×2 (14:54→16:12)
--- NOTE | 2024-11-05 14:54 | EDS_ITS ---
HPI History of Present Illness Chief Complaint: Fall Narrative Narrative: Patient is a 69-year-old male with a past medical history of epilepsy, hypercholesterolemia, sciatica, cerebral aneurysm status post clamping on Plavix who presents to the emergency department with a chief complaint of falling off a ladder. Patient states that he was changing lights on a [id number] and notes that when he was coming down off the ladder someone yelled and he turned around quickly to see who it was or what was going on and he lost his balance causing him to fall backwards. He states that he did pass out he does not remember the entire event and remembers waking up on the ground. Patient states that he does have left shoulder pain and states that he has torn rotator cuff on that side which she is being treated for currently therefore he did have Percocet at home and took this prior to arrival. Patient also attempt take Tylenol prior to arrival and since things are getting better he came here further evaluation management. Patient states he has chronic fractures in his lower back as well. [facility] Medical History Hemorrhoid Epilepsy Sciatica High cholesterol Home Medications ?Medication ?Instructions ?Recorded ?Last Taken ?Type omeprazole 20 mg capsule,delayed 40 mg PO DAILY 03/23/22 Unknown History release gabapentin 300 mg capsule 300 mg PO 4X/DAY 04/02/22 Unknown History hydrocortisone acetate 25 mg 25 mg [place] QHS #12 ea 04/27/22 Unknown Rx rectal suppository (Anusol-HC) polyethylene glycol 3350 17 17 g PO DAILY #119 grams 04/27/22 Unknown Rx gram/dose oral powder (Miralax) atorvastatin 40 mg tablet (Lipitor) 40 mg PO QHS 01/13/23 Unknown History polyethylene glycol 3350 17 17 g PO DAILY #119 grams 05/31/23 Unknown Rx gram/dose oral powder (ClearLax) cyclobenzaprine 10 mg tablet 10 mg PO TID PRN Muscle Spasm #20 08/09/23 Unknown Rx TABLETS acetaminophen 500 mg tablet mg 10/09/23 Unknown History clopidogrel 75 mg tablet mg 10/09/23 Unknown History duloxetine 30 mg capsule,delayed mg PO 10/09/23 Unknown History release oxycodone 10 mg tablet mg 10/09/23 Unknown History tamsulosin 0.4 mg capsule mg PO 10/09/23 Unknown History diphenhydramine HCl 25 mg capsule 25 mg PO TID PRN allergic reaction 02/06/24 Unknown Rx (Benadryl) #20 caps levofloxacin 750 mg tablet 750 mg PO DAILY 14 days #14 tabs 07/01/24 Unknown Rx ondansetron 4 mg disintegrating 4 mg PO Q8H PRN PRN Nausea #10 tabs 07/01/24 Unknown Rx tablet oxycodone 5 mg tablet 5 mg PO Q6H PRN pain 3 days #12 07/01/24 Unknown Rx tabs cyclobenzaprine 10 mg tablet 10 mg PO TID PRN Muscle Spasm #20 07/06/24 Unknown Rx TABLETS oxycodone-acetaminophen 5 mg-325 1 tab PO Q8H PRN pain 2 days #10 07/06/24 Unknown Rx mg tablet (Percocet) tabs cyclobenzaprine 5 mg tablet 5 mg PO TID PRN muscle spasm 4 11/05/24 Unknown Rx days #12 tabs lidocaine 5 % topical patch 1 patch topical DAILY #15 ea 11/05/24 Unknown Rx (Lidoderm) ondansetron 4 mg disintegrating 4 mg PO Q6H PRN nausea and 11/05/24 Unknown Rx tablet vomiting #10 tabs Allergy/AdvReac Type Severity Reaction Status Date / Time adhesive tape (tape) AdvReac Rash Verified 11/05/24 14:16 hydrocodone (From [place]) AdvReac Upset Verified 11/05/24 14:16 Stomach ibuprofen AdvReac Upset Verified 11/05/24 14:16 Stomach ketorolac (From Torad[place]) AdvReac Rash Verified 11/05/24 14:16 naproxen AdvReac Rash Verified 11/05/24 14:16 tramadol AdvReac Upset Verified 11/05/24 14:16 Stomach Surgical History S/P clamping of cerebral aneurysm Social History household members: significant other Smoking Status: Former smoker alcohol intake: former substance use type: does not use ROS ROS ED ROS Narrative Constitutional: Denies any fevers, chills, headaches, dizziness Eyes: Denies change in vision double vision blurry vision Cardiovascular: Denies chest pain or palpitations Respiratory: Denies coughing wheezing shortness of breath Abdomen: Denies abdominal pain nausea vomit diarrhea : Denies any urinary symptoms Neurological: Denies any numbness, weakness, tingling Musculoskeletal: Complains of left shoulder pain as noted above Skin: States that he cut his left finger EXAM Physical Exam Narrative Exam Narrative: General: Patient lying in bed resting comfortably did not appear to be acute distress Head: Atraumatic, normocephalic Eyes: PERRL bilateral, EOMI bilaterally, no conjunctival injection noted Neck: Soft, supple, trachea midline, cervical collar in place Cardiovascular: Regular rate and rhythm no murmurs gallops rubs noted Respiratory: Clear to auscultation bilaterally Abdomen: Soft, nondistended, nontender to palpation, bowel sounds present x 4 Musculoskeletal: Patient is tenderness to palpation over the left elbow and left shoulder region on exam. Patient has tenderness in his lower back on exam. Patient has bilateral heel pain to palpation on exam. All other joints and bony prominences palpated and taken through full range of motion no pain elicited Extremities: Radial pulses +2/4 in the bilateral upper extremities, +4/5 strength noted in the right upper extremity and +35/strength noted in the left upper extremity secondary to pain in his left shoulder Neurological: Patient following commands knew that he was at [facility] year is 2024 NIH of 0 GCS 15 Skin: Warm, dry, intact, patient has small superficial abrasion noted between his third and fourth finger no active bleeding noted Const Vital Signs: 11/05/24 14:16 11/05/24 14:44 11/05/24 16:13 Temperature 97.2 F L Temperature Source Temporal Pulse Rate 76 50 L Respiratory Rate 18 16 Respiratory Effort Normal Non-Labored Respiratory Depth Normal Respiratory Pattern Normal Blood Pressure 168/106 H 161/75 H Blood Pressure Mean 126 103 Pulse Ox 99 96 Oxygen Delivery Method Room Air Room Air Room Air 11/05/24 16:51 11/05/24 17:47 Temperature Temperature Source Pulse Rate 52 L 48 L Respiratory Rate 16 16 Respiratory Effort Respiratory Depth Respiratory Pattern Blood Pressure 146/77 H 144/93 H Blood Pressure Mean 100 110 Pulse Ox 96 99 Oxygen Delivery Method Room Air Room Air MDM MDM MDM Narrative Medical decision making narrative: Patient is a 69-year-old male who presents to the emerged department after mechanical fall off a ladder with positive loss consciousness. On the differential diagnose includes Melamin to intracranial average, cervical spine fracture, thoracolumbar fracture, calcaneus fracture, proximal humerus fracture. Once workup is obtained reviewed he will be reevaluated. Patient given IV fluids, morphine, Zofran. Patient CBC reviewed showed no evidence leukocytosis white blood count normal 8.6, hemoglobin stable 13.1, platelet count was noted to be 386. Patient's INR was normal at 0.9, PT of 12.8. Patient sodium normal 140, potassium normal 3.6, creatinine normal at 1.01. Patient's AST and ALT were 11 and 11 respectively. Patient's urinalysis reviewed showed no evidence of infection. Patient's CT head and brain without contrast showed no acute abnormalities. Patient CT cervical spine reviewed showed degenerative changes cervical spine. Patient CT chest abdomen pelvis with IV contrast reviewed showed findings suggestive of nondisplaced compression fracture of the superior endplate of the L2 vertebrae. Patient given a hard copy of these results to it for his own records. Patient has mild tenderness to palpation over this region. Without significant pain. Patient's x-ray of his left elbow showed no acute bony injury. Patient's foot x-ray bilaterally showed no acute bony injury just degenerative changes on the left side. Patient's humerus x-ray on the left reviewed showed elevated humerus may be related to underlying rotator cuff injury which she is currently being worked up for, old mild left humeral fracture noted. Patient's x-ray of the shoulder once again showed the same thing as the humerus x-ray as well as degenerative hypertrophy at the acromioclavicular articulation. On reevaluation the patient he states that he is having whole body pain and feels like he is stiffening up. Patient states that he already has approximately 14 Percocet at home for his rotator cuff pain prescribed by his physician therefore will not prescribe any further narcotics. He will be given prescription for muscle laxer as Lidoderm patches. He was encouraged to follow- up with his primary care physician in the outpatient setting he was also referred to orthopedic surgery for his left shoulder pain and rotator cuff injury as well as a spine surgeon. He is agreeable this plan he ambulated well in the emergency department without any difficulty. All question concerns answered is discharged home in stable condition. Lab Data Labs: Laboratory Results - last 24 hr 11/05/24 11/05/24 11/05/24 14:40 16:14 16:19 WBC 8.6 RBC 4.35 L Hgb 13.1 Hct 39.3 L MCV 90.3 MCH 30.1 MCHC 33.3 RDW Std Deviation 45.1 H RDW Coeff of Jerry 13.8 Plt Count 386 MPV 8.7 Immature Gran % (Auto) 0.200 Neut % (Auto) 67.5 Lymph % (Auto) 19.6 [place] % (Auto) 8.7 Eos % (Auto) 3.3 Baso % (Auto) 0.7 Absolute Neuts (auto) 5.8 Absolute Lymphs (auto) 1.68 Nucleated RBC % 0 PT 12.8 INR 0.9 APTT 27.5 Sodium Cancelled 140 Potassium Cancelled 3.6 Chloride Cancelled 107 Carbon Dioxide Cancelled 27.0 Anion Gap Cancelled 6 BUN Cancelled 12 Creatinine Cancelled 1.01 Estim Creat Clear Calc Cancelled 70.59 Est GFR (MDRD) Af Amer Cancelled 94 Est GFR (MDRD) Non-Af Cancelled 78 BUN/Creatinine Ratio Cancelled 11.9 Glucose Cancelled 80 Calcium Cancelled 8.4 L Total Bilirubin Cancelled 1.00 Direct Bilirubin Cancelled 0.21 AST Cancelled 11 L ALT Cancelled 11 L Alkaline Phosphatase Cancelled 81 Total Protein Cancelled 6.7 Albumin Cancelled 3.4 Globulin Cancelled 3.3 Urine Color Yellow Urine Clarity Clear Urine pH 7.0 Ur Specific [place] 1.010 Urine Protein 15 H Urine Glucose (UA) Normal Urine Ketones Negative Urine Occult Blood 10 H Urine Nitrite Negative Urine Bilirubin Negative Urine Urobilinogen Normal Ur Leukocyte Esterase Negative Urine RBC 0-5 SEEN Urine WBC 0-5 SEEN Ur Squamous Epith Cells 0-5 SEEN Ur Transition Epith Cell 0-5 SEEN Urine Bacteria RARE Urine Mucus 0 SEEN Radiography Diagnostic Testing: Clinical Impression(s) from Imaging Studies Brain CT 11/05/24 14:47 IMPRESSION: No acute abnormality is seen. Electronically Signed: Sorin Sorensen MD at 15:46 EST , Cervical Spine CT 11/05/24 14:47 IMPRESSION: Degenerative changes of the cervical spine. Electronically Signed: Richard Cortez DO at 16:57 EST , Chest/Abdomen/Pelvis CT 11/05/24 14:47 IMPRESSION: Findings suggestive of a nondisplaced compression fracture of the superior endplate of the L2 vertebrae. Electronically Signed: Sorin Sorensen MD at 15:45 EST , Elbow X-Ray 11/05/24 15:35 IMPRESSION: No acute bony injury. Electronically Signed: Richard Cortez DO at 17:34 EST , Foot X-Ray 11/05/24 15:35 IMPRESSION: No acute bony injury. Electronically Signed: Richard Cortez DO at 17:07 EST , Foot X-Ray 11/05/24 15:35 IMPRESSION: Degenerative changes. Electronically Signed: Richard Cortez DO at 17:04 EST , Humerus X-Ray 11/05/24 15:35 IMPRESSION: Elevated humerus may be related to underlying rotator cuff injury.. Correlate with MRI if needed. Old mid left humeral fracture. Electronically Signed: Richard Cortez DO at 17:12 EST , Shoulder X-Ray 11/05/24 15:35 IMPRESSION: Elevated humerus may be related to underlying rotator cuff injury. Correlate with MRI if needed. Old mid humeral shaft fracture. Degenerative hypertrophy at the acromioclavicular articulation. Electronically Signed: Richard Cortez DO at 17:00 EST Reading Location ID and State: [facility] / [place] Tel [phone], Service support , Discharge Plan Triage Chief Complaint: Fall ED Provider: Dennis Strickland Dx/Rx/DC Orders Clinical Impression: Fall, Chronic left shoulder pain Prescriptions: New cyclobenzaprine 5 mg tablet 5 mg PO TID PRN (Reason: muscle spasm) 4 Days Qty: 12 0RF ondansetron 4 mg tablet,disintegrating 4 mg PO Q6H PRN (Reason: nausea and vomiting) Qty: 10 0RF lidocaine [Lidoderm] 5 % adhesive patch,medicated 1 patch topical DAILY Qty: 15 0RF Rx Instructions: leave on most painful area for up to 12 hrs No Action omeprazole 20 mg capsule,delayed release(DR/EC) 40 mg PO DAILY Patient Comments: TAKE 1 CAPSULE BY MOUTH EVERY DAY IN THE MORNING BEFORE BREAKFAST gabapentin 300 mg capsule 300 mg PO 4X/DAY polyethylene glycol 3350 [Miralax] 17 gram/dose powder 17 g PO DAILY Qty: 119 0RF Rx Instructions: 1 cap per day hydrocortisone acetate [Anusol-HC] 25 mg suppository 25 mg [place] QHS Qty: 12 0RF atorvastatin [Lipitor] 40 mg Tablet 40 mg PO QHS polyethylene glycol 3350 [ClearLax] 17 gram/dose powder 17 g PO DAILY Qty: 119 0RF cyclobenzaprine 10 mg tablet 10 mg PO TID PRN (Reason: Muscle Spasm) Qty: 20 0RF clopidogrel 75 mg tablet Patient Comments: TAKE 1 TABLET BY MOUTH EVERY DAY acetaminophen 500 mg tablet tamsulosin 0.4 mg capsule PO Patient Comments: TAKE 1 CAPSULE BY MOUTH EVERY DAY FOR 90 DAY(S) duloxetine 30 mg capsule,delayed release(DR/EC) PO Patient Comments: TAKE 1 CAPSULE BY MOUTH TWICE A DAY oxycodone 10 mg tablet Patient Comments: TAKE 1 TABLET BY MOUTH EVERY 6 HOURS NEEDED FOR PAIN FOR 30 DAYS diphenhydramine HCl [Benadryl] 25 mg capsule 25 mg PO TID PRN (Reason: allergic reaction) Qty: 20 0RF cyclobenzaprine 10 mg tablet 10 mg PO TID PRN (Reason: Muscle Spasm) Qty: 20 0RF oxycodone-acetaminophen [Percocet] 5-325 mg tablet 1 tab PO Q8H PRN (Reason: pain) 2 Days Qty: 10 0RF levofloxacin 750 mg tablet 750 mg PO DAILY 14 Days Qty: 14 0RF ondansetron 4 mg tablet,disintegrating 4 mg PO Q8H PRN PRN (Reason: Nausea) Qty: 10 0RF oxycodone 5 mg tablet 5 mg PO Q6H PRN (Reason: pain) 3 Days Qty: 12 0RF Primary Care Provider: Jefferson Gregorio Referrals: Gavino Briggs MD [Med Staff - Active Staff] - Jefferson Gregorio DO [Primary Care Provider] - Panchito Perez MD [Med Staff - Active Staff] - Activity Restrictions/Additional Instructions: Follow-up with the spine surgeon that you referred to Dr. Briggs. Follow-up with the orthopedic surgeon for your left shoulder Dr. Perez. Follow-up with your primary care physician outpatient setting. Take prescriptions as prescribed do not operate anything under the influence of the narcotics or the muscle relaxers they will make you sleepy. Return with worsening symptoms or concerns. Print Language: Albanian Disposition Disposition: Home, Self Care
[2024-11-05 14:56] LABS: Absolute Lymphocyte Count 1.68 X10^3/uL (0.83-4.51); Absolute Neutrophil Count 5.8 X10^3/uL (2.0-7.7); Basophil# 0.06 X10^3/uL; Basophil% 0.7 % (0-1); Eosinophil# 0.28 X10^3/uL; Eosinophils% 3.3 % (0-5); Hematocrit 39.3 % (40-54); Hemoglobin 13.1 g/dL (13.0-16.5); Lymphocyte # 1.68 X10^3/ul (0.83-4.51); Lymphocyte % 19.6 % (19-41); Mean Corp Hgb Conc 33.3 g/dL (32-36); Mean Corpuscular Hgb 30.1 pg (27.0-32.0); Mean Corpuscular Volume 90.3 fL (80-94); Mean Platelet Vol. 8.7 fl (6.2-12.0); Monocyte# 0.75 X10^3/uL; Monocyte% 8.7 % (0-10); NRBC Flagged by Analyzer 0 % (0-5); Neutrophil # 5.79 X10^3/uL (2.7-7.7); Neutrophil % 67.5 % (47-70); Platelet Count 386 K/mm3 (150-450); RBC Distribution Width CV 13.8 % (11.6-14.6); RBC Distribution Width SD 45.1 fl (35.1-43.9); Red Blood Count 4.35 M/mm3 (4.6-6.2); White Blood Count 8.6 K/mm3 (4.4-11.0)
[2024-11-05 15:11] LABS: International Normalized Ratio 0.9; Prothrombin Time (Protime)PT. 12.8 SECONDS (11.7-14.9)
[2024-11-05 15:12] LABS: Partial Thromboplast Time 27.5 Seconds (24.1-36.2)
--- NOTE | 2024-11-05 15:35 | RAD_ITS ---
INDICATION: fall from ladder, heal pain EXAMINATION/TECHNIQUE: X-RAY - RIGHT XR Foot Min 3 Views 3 VIEWS COMPARISON: FINDINGS: SOFT TISSUES: No soft tissue swelling or gas. No radiopaque foreign body. BONES/JOINTS: No acute fracture or subluxation.. Degenerative changes with spurring and joint space narrowing at the first metatarsophalangeal articulation.. No sclerotic or destructive changes observed. RAD/Foot min 3 Views IMPRESSION: No acute bony injury. Electronically Signed: Richard Cortez DO at 17:07 EST ,
--- NOTE | 2024-11-05 15:35 | RAD_ITS ---
INDICATION: fall pain EXAMINATION/TECHNIQUE: X-RAY - LEFT XR Shoulder Min 2 Views 2 VIEWS COMPARISON: FINDINGS: SOFT TISSUES: No soft tissue swelling or gas. No radiopaque foreign body. BONES/JOINTS: No acute fracture or subluxation.. Elevated humerus may be related to underlying rotator cuff injury. Old mid humeral shaft fracture. Degenerative hypertrophy at the acromioclavicular articulation. No sclerotic or destructive changes observed. RAD/Shoulder min 2 Views IMPRESSION: Elevated humerus may be related to underlying rotator cuff injury. Correlate with MRI if needed. Old mid humeral shaft fracture. Degenerative hypertrophy at the acromioclavicular articulation. Electronically Signed: Richard Cortez DO at 17:00 EST Reading Location ID and State: [facility] / [place] Tel [phone], Service support ,
--- NOTE | 2024-11-05 15:35 | RAD_ITS ---
INDICATION: PAIN, FALL EXAMINATION/TECHNIQUE: X-RAY - LEFT XR Foot Min 3 Views 6 VIEWS COMPARISON: FINDINGS: SOFT TISSUES: No soft tissue swelling or gas. No radiopaque foreign body. BONES/JOINTS: No acute fracture or subluxation.. Normal alignment. Degenerative changes with spurring more prominent at the tarsometatarsal articulations.. No sclerotic or destructive changes observed. RAD/Foot min 3 Views IMPRESSION: Degenerative changes. Electronically Signed: Richard Cortez DO at 17:04 EST ,
--- NOTE | 2024-11-05 15:35 | RAD_ITS ---
INDICATION: fall, pain EXAMINATION/TECHNIQUE: X-RAY - LEFT XR Elbow Min 3 Views COMPARISON: FINDINGS: SOFT TISSUES: No soft tissue swelling or gas. No radiopaque foreign body. BONES/JOINTS: There is no displacement of the anterior or posterior fat pads. Old mid humeral shaft fracture. No acute fracture or subluxation. Normal alignment. Preservation of the joint space. No sclerotic or destructive changes observed. RAD/Elbow min 3 Views IMPRESSION: No acute bony injury. Electronically Signed: Richard Cortez DO at 17:34 EST ,
--- NOTE | 2024-11-05 15:35 | RAD_ITS ---
INDICATION: fall, pain EXAMINATION/TECHNIQUE: X-RAY - LEFT XR Humerus Min 2 Views 2 VIEWS COMPARISON: FINDINGS: SOFT TISSUES: No soft tissue swelling or gas. No radiopaque foreign body. BONES/JOINTS: No acute fracture or subluxation. Elevated humerus may be related to underlying rotator cuff injury.. Old mid left humeral fracture. Degenerative hypertrophy at the acromioclavicular articulation.. No sclerotic or destructive changes observed. RAD/Humerus min 2 Views IMPRESSION: Elevated humerus may be related to underlying rotator cuff injury.. Correlate with MRI if needed. Old mid left humeral fracture. Electronically Signed: Richard Cortez DO at 17:12 EST Reading Location ID and State: [facility] / [place] Tel [phone], Service support ,
[2024-11-05 16:13] VITALS: BP 161/75; PULSE 50; RESP 16; O2SAT 96
[2024-11-05 16:18] LABS: Mucous, Urine 0 SEEN /hpf (<or=2+)
[2024-11-05 16:23] LABS: Color, Urine Yellow (Yellow); Glucose, Dipstick Normal (Normal); Ketone-Dipstick Negative (Negative); Leukocyte Esterase-Dipstick Negative /ul (Negative); Nitrite-Dipstick Negative (Negative); Occult Blood-Urine 10 /ul (Negative); Protein-Dipstick 15 mg/dl (Negative); Urine Bilirubin Dipstick Negative (Negative); Urine Clarity Clear (Clear); Urine Urobilinogen Normal (Normal)
[2024-11-05 16:51] VITALS: BP 146/77; PULSE 52; RESP 16; O2SAT 96
[2024-11-05 16:55] LABS: AST(SGOT) 11 U/L (15-37); Alanine Aminotransfer ALT/SGPT 11 U/L (16-61); Albumin, Serum 3.4 g/dL (3.2-5.0); Alkaline Phosphatase 81 U/L (45-117); Anion Gap 6 (5-15); BUN 12 mg/dL (7-18); BUN/Creat Ratio 11.9 RATIO (10-20); Bilirubin, Direct 0.21 mg/dL (0.00-0.30); Calcium,Total 8.4 mg/dL (8.5-10.1); Chloride 107 mmol/L (98-107); Creatinine, Serum 1.01 mg/dL (0.70-1.30); EST Glomerular Filtration Rate 78 mL/min (>60); Est Glom Filt Rate - Afr Amer 94 mL/min (>60); Estimated Creatinine Clearance 70.59 ml/min; Globulin 3.3 g/dL (2.2-4.2); Glucose 80 mg/dL (74-106); Potassium 3.6 mmol/L (3.5-5.1); Protein, Total 6.7 g/dL (6.4-8.2); Sodium Level 140 mmol/L (136-145)
[2024-11-05 17:34] LABS: Squamous Epithelial Cells - UA 0-5 SEEN /hpf (0-5)
[2024-11-05 17:35] LABS: Transitional Epithelial - Ur 0-5 SEEN /hpf (0-5)
[2024-11-05 17:36] LABS: Red Blood Cells-Urine 0-5 SEEN /hpf (0-5)
[2024-11-05 17:40] LABS: Bacteria RARE /hpf (None Seen); White Blood Cells 0-5 SEEN /hpf (0-5)
[2024-11-05] MEDS: Acetaminophen 325 MG Tablet 650 MG PO (17:44)
[2024-11-05 17:47] VITALS: BP 144/93; PULSE 48; RESP 16; O2SAT 99
[2024-11-05] MEDS: Orphenadrine 60 MG/2 ML Ampul 30 MG IV (18:15)
[2024-11-05 18:53] VITALS: BP 143/88; PULSE 70; RESP 18; TEMP 36.6; O2SAT 97
== END 2024-11-05 18:55 | disposition home or self-care (01) ==
PROVIDERS: Emergency Provider Emergency Medicine; PCP Student in an Organized Health Care Education/Training Program; Referring Provider Emergency Medicine; Visit Provider Emergency Medicine
DX: M25.512 Pain in left shoulder (principal); Z87.891 Personal history of nicotine dependence; E78.00 Pure hypercholesterolemia, unspecified; G89.29 Other chronic pain; W11.XXXA Fall on and from ladder, initial encounter; Y93.89 Activity, other specified; Z79.899 Other long term (current) drug therapy; Z79.02 Long term (current) use of antithrombotics/antiplatelets
CPT/HCPCS: 70450; 71260; 72125; 73030; 73060; 73080; 73630; 74177; 80048; 80076; 81001; 85025; 85610; 85730; 93005; 96361; 96374; 96375; 96376; 99284; Q9967; A4216; J2405

== ENCOUNTER 2024-11-25 10:49 | Emergency (ER) | payer MEDICAID, SELFPAY ==
[2024-11-25 10:50] VITALS: BP 129/87; PULSE 78; RESP 18; TEMP 36.7; O2SAT 98; BMI 22.1
--- NOTE | 2024-11-25 11:06 | EDS_ITS ---
HPI History of Present Illness Chief Complaint: Headache Detail of Chief Complaint: Head and neck pain Informant: patient Narrative Narrative: Patient presents to the emergency department with complaint of head and neck pain after sustaining a fall 2 weeks ago. 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 Unsure if he lost consciousness but remembers waking up on the ground with people around him. Patient's had intermittent headaches since that time. Complains of pain in his neck specially left side of his neck when he turns his head to the left. Also complains of some left shoulder pain. Patient on Plavix. He has history of intracranial hemorrhage years ago from a fall. Currently rates his headache a 9 out of 10. He has been taken Tylenol at home as well as gabapentin without pain relief. He has had no vomiting. [facility] Medical History Anemia GERD (gastroesophageal reflux disease) Left shoulder pain Hemorrhoid Epilepsy Sciatica High cholesterol Home Medications ?Medication ?Instructions ?Recorded ?Last Taken ?Type gabapentin 300 mg capsule 300 mg PO 4X/DAY 04/02/22 Un known History hydrocortisone acetate 25 mg 25 mg [place] QHS #12 ea 04/27 Unknown Rx rectal suppository (Anusol-HC) atorvastatin 40 mg tablet (Lipitor) 40 mg PO QHS 01/13 Unknown History polyethylene glycol 3350 17 17 g PO DAILY #119 grams 0 05/31/23 Unknown Rx gram/dose oral powder (ClearLax) oxycodone-acetaminophen 5 mg-325 1 tab PO Q8H PRN pain 2 days #10 07/06/24 Unknown Rx mg tablet (Percocet) tabs cyclobenzaprine 5 mg tablet 5 mg PO TID PRN muscle spa sm 4 11/05/24 Unknown Rx days #12 tabs ondansetron 4 mg disintegrating 4 mg PO Q6H PRN nausea and 11/05/24 Unknown Rx tablet vomiting #10 tabs clopidogrel 75 mg tablet 75 mg PO QDAY 11/13/24 Unkno wn History duloxetine 30 mg capsule,delayed See Rx Instructions P O QDAY 11/13/24 Unknown History release ferrous sulfate 325 mg (65 mg 325 mg PO QDAY 11/13/24 Unknown History iron) tablet pantoprazole 40 mg tablet,delayed 40 mg PO QDAY Unknown History release ondansetron 4 mg disintegrating 4 mg PO Q8H PRN PRN Na usea #10 tabs 11/25/24 Unknown Rx tablet oxycodone-acetaminophen 5 mg-325 1 tab PO Q8H PRN pain 3 days #10 11/25/24 Unknown Rx mg tablet (Percocet) tabs Allergy/AdvReac Type Severity Reaction Status Date / Time adhesive tape (tape) AdvReac Rash Verified 11/25/24 10:50 hydrocodone (From [place]) AdvReac Upset Verified 11/25/24 10:50 Stomach ibuprofen AdvReac Upset Verified 11/25/24 10:50 Stomach ketorolac (From Toradol) AdvReac Rash Verified 11/25/24 10:50 meloxicam (From Mobic) AdvReac Muscle Verified 11/25/24 10:50 weakness naproxen AdvReac Rash Verified 11/25/24 10:50 tramadol AdvReac Upset Verified 11/25/24 10:50 Stomach Family History Other Cancer Diabetes Heart disease Surgical History Leg fracture, left S/P clamping of cerebral aneurysm Social History household members: significant other Smoking Status: Former smoker alcohol intake: former substance use type: does not use ROS ROS ED Review of Systems ROS Unobtainable: other Constitutional Constitutional ED: Reports lethargy; Denies chills, fever(s), sweats or weight loss Eyes Eyes: Denies blurry vision, change in vision or diplopia ENT ENT ED: Denies rhinorrhea or sore throat Cardiovascular Cardiovascular: Denies chest pain, orthopnea or racing heartbeat Respiratory/Chest Respiratory/Chest: Reports dyspnea and dyspnea on exertion; Denies cough, orthopnea or sputum Gastrointestinal Gastrointestinal: Denies abdominal pain, diarrhea, nausea or vomiting Genitourinary Genitourinary ED: Denies dysuria, hematuria or urinary frequency Musculoskeletal Musculoskeletal: Reports neck pain and other Details: Left shoulder pain ; Denies arthralgias, back pain or myalgias Integumentary Denies abscess, Abrasions or rash Neurologic Neurologic: Reports headache(s); Denies weakness Psychiatric Psychiatric: Denies anxiety, depression or suicidal thoughts Endocrine Endocrinology: Denies polydipsia, polyphagia or polyuria Hematologic/Lymphatic Hematologic/Lymphatic: Denies easy bleeding, easy bruising or lymphadenopathy Allergic/Immunologic Allergic/Immunologic ED: Denies mouth swelling, tongue swelling or urticaria EXAM Physical Exam Const Vital Signs: 11/25/24 10:50 11/25/24 11:51 11/25/24 12:00 Temperature 98.1 F Temperature Source Oral Pulse Rate 78 70 72 Respiratory Rate 18 16 16 Blood Pressure 129/87 H 160/70 H 133/80 H Blood Pressure Mean 101 100 97 Pulse Ox 98 99 99 Oxygen Delivery Method Room Air Positive well nourished and well developed General Appearance ED: well developed and NAD HEENT Reports TM's clear and moist mucous membranes HEENT Narrative: No evidence of trauma to his head. No hemotympanum normocephalic and atraumatic; Negative for trauma or tenderness Tympanic Membrane ED: Yes TM's clear Eyes PERRL and EOMs intact bilaterally General Eye ED: Negative for pale conjunctiva or scleral icterus Neck no lymphadenopathy, supple and no JVD Neck Narrative: Patient with diffuse tenderness palpation over the C-spine. Pain with turning his head and bending his head to the left. Also some tenderness over the left cervical paraspinal musculature General: tenderness Chest Wall inspection of chest normal and palpation of chest normal Chest: Negative for tenderness Resp normal respiratory effort and clear to auscultation bilaterally Effort and Inspection: Negative for respiratory distress or pain with movement Auscultation: Negative for rhonchi, wheezes or diminished lung sounds Cardio regular rate, regular rhythm, S1 normal heart sound, S2 normal heart sound and no murmurs Peripheral Pulses: pulses 2+ throughout GI normal to inspection, nondistended, normoactive bowel sounds, soft to palpation, non-tender, non-distended and no masses Back/Spine no CVA tenderness and no thoracic nor lumbar tenderness Extremity normal to inspection General Extremety ED: Negative for edema General Extremity: Negative for edema Neuro oriented x3, CN's II-XII intact bilaterally, no sensory deficits noted and gait normal Sensorium / Orientation: awake, alert, oriented to person, oriented to place and oriented to time Motor Exam: strength 5/5 throughout and strength abnormal Psych mental status grossly normal Skin no rashes or lesions noted and no wounds MDM MDM MDM Narrative Medical decision making narrative: Patient presents with headache and neck pain after remote fall 2 weeks ago. Tells me has history of intracranial hemorrhage years ago after a fall. He is on Plavix. Clinically looks well and without evidence of trauma to his head noted. I did obtain a CT scan of the brain without contrast that was unremarkable. Patient also had CT scan of the cervical spine that showed no fractures but did show degenerative changes. X-rays of the left shoulder obtain ed were unremarkable. While in the department initially was medicated with morphine and Zofran. Patient will be given a prescription for Percocet for pain. Advised to follow-up with his primary care physician within next 3 to 5 days. Radiography Diagnostic Testing: Clinical Impression(s) from Imaging Studies Brain CT 11/25/24 11:30 IMPRESSION: No acute intracranial hemorrhage, midline shift or mass effect. If symptoms persist, further evaluation with MRI is recommended. Reading [facility] Cervical Spine CT 11/25/24 11:30 IMPRESSION: 1. No acute fracture. 2. Degenerative changes of the cervical spine as described. Reading [facility] 2 view x-ray of the left shoulder obtained interpreted by myself as no evidence of fracture or dislocation. Discharge Plan Triage Chief Complaint: Headache ED Provider: Abril Velarde Dx/Rx/DC Orders Clinical Impression: Closed head injury, Cervical strain, Contusion of left shoulder Instructions: ED Concussion, ED Head Injury (Adult), ED Neck Sprain or Strain, ED Shoulder Bruise Prescriptions: New oxycodone-acetaminophen [Percocet] 5-325 mg tablet 1 tab PO Q8H PRN (Reason: pain) 3 Days Qty: 10 0RF ondansetron 4 mg tablet,disintegrating 4 mg PO Q8H PRN PRN (Reason: Nausea) Qty: 10 0RF No Action ferrous sulfate 325 mg (65 mg iron) tablet 325 mg PO QDAY pantoprazole 40 mg tablet,delayed release (DR/EC) 40 mg PO QDAY gabapentin 300 mg capsule 300 mg PO 4X/DAY hydrocortisone acetate [Anusol-HC] 25 mg suppository 25 mg [place] QHS Qty: 12 0RF atorvastatin [Lipitor] 40 mg Tablet 40 mg PO QHS polyethylene glycol 3350 [ClearLax] 17 gram/dose powder 17 g PO DAILY Qty: 119 0RF clopidogrel 75 mg tablet 75 mg PO QDAY Patient Comments: TAKE 1 TABLET BY MOUTH EVERY DAY duloxetine 30 mg capsule,delayed release(DR/EC) See Rx Instructions PO QDAY Patient Comments: TAKE 2 CAPSULE BY MOUTH in AM and 1 cap at night Rx Instructions: orally daily; oxycodone-acetaminophen [Percocet] 5-325 mg tablet 1 tab PO Q8H PRN (Reason: pain) 2 Days Qty: 10 0RF cyclobenzaprine 5 mg tablet 5 mg PO TID PRN (Reason: muscle spasm) 4 Days Qty: 12 0RF ondansetron 4 mg tablet,disintegrating 4 mg PO Q6H PRN (Reason: nausea and vomiting) Qty: 10 0RF Primary Care Provider: Jefferson Gregorio Referrals: Jefferson Gregorio DO [Primary Care Provider] - Print Language: Turkish Disposition Disposition: Home, Self Care
[2024-11-25] MEDS: Morphine 4 MG/ML Syringe IM (11:18)
[2024-11-25] MEDS: Ondansetron 4 MG/2 ML Vial IM (11:18)
--- NOTE | 2024-11-25 11:30 | CT_ITS ---
EXAM: CT Cervical Spine Without Intravenous Contrast CLINICAL INDICATION: TECHNIQUE: Axial computed tomography images of the cervical spine without intravenous contrast. This CT exam was performed using one or more of the following dose reduction techniques: automated exposure control, adjustment of the mA and/or kV according to patient size, and/or use of iterative reconstruction technique. COMPARISON: No relevant prior studies available. FINDINGS: VERTEBRAE: Degenerative facet arthropathy throughout the cervical spine. No acute fracture. DISCS/SPINAL CANAL/NEURAL FORAMINA: Degenerative disc disease throughout the cervical spine. SOFT TISSUES: Unremarkable. CT/Spine Cervical without Contras IMPRESSION: 1. No acute fracture. 2. Degenerative changes of the cervical spine as described. Reading Location: [facility]
--- NOTE | 2024-11-25 11:30 | CT_ITS ---
EXAM: CT Head Without Intravenous Contrast CLINICAL INDICATION: TECHNIQUE: Axial computed tomography images of the head/brain without intravenous contrast. This CT exam was performed using one or more of the following dose reduction techniques: automated exposure control, adjustment of the mA and/or kV according to patient size, and/or use of iterative reconstruction technique. COMPARISON: CT Head dated 10/19/2023 FINDINGS: BRAIN AND EXTRA-AXIAL SPACES: No acute intracranial hemorrhage, midline shift or mass effect. If symptoms persist, further evaluation with MRI is recommended. No significant white matter disease. BONES/JOINTS: Unremarkable. No acute fracture. SOFT TISSUES: Unremarkable. SINUSES: Unremarkable as visualized. No acute sinusitis. MASTOID AIR CELLS: Unremarkable as visualized. No mastoid effusion. CT/Brain/Head without Contrast IMPRESSION: No acute intracranial hemorrhage, midline shift or mass effect. If symptoms per sist, further evaluation with MRI is recommended. Reading Location: [facility]
--- NOTE | 2024-11-25 11:35 | RAD_ITS ---
EXAM: XR Left Shoulder Complete, 2 or More Views CLINICAL INDICATION: TECHNIQUE: Two or more views of the left shoulder. COMPARISON: No relevant prior studies available. FINDINGS: BONES/JOINTS: Unremarkable. No acute fracture. No dislocation. SOFT TISSUES: Unremarkable. RAD/Shoulder min 2 Views IMPRESSION: No acute fracture. Reading [facility]
[2024-11-25 11:51] VITALS: BP 160/70; PULSE 70; RESP 16; O2SAT 99
[2024-11-25 12:00] VITALS: BP 133/80; PULSE 72; RESP 16; O2SAT 99
[2024-11-25 12:52] VITALS: BP 136/85; PULSE 80; RESP 16; TEMP 36.6; O2SAT 98
== END 2024-11-25 13:00 | disposition home or self-care (01) ==
PROVIDERS: Emergency Provider Emergency Medicine; PCP Student in an Organized Health Care Education/Training Program; Visit Provider Emergency Medicine
DX: S09.90XA Unspecified injury of head, initial encounter (principal); E78.00 Pure hypercholesterolemia, unspecified; Z87.891 Personal history of nicotine dependence; S16.1XXA Strain of muscle, fascia and tendon at neck level, initial encounter; S40.012A Contusion of left shoulder, initial encounter; W11.XXXA Fall on and from ladder, initial encounter; Y93.89 Activity, other specified; Y92.89 Other specified places as the place of occurrence of the external cause; Z79.899 Other long term (current) drug therapy; K21.9 Gastro-esophageal reflux disease without esophagitis
CPT/HCPCS: 70450; 72125; 73030; 96372; 99282; J2405

== ENCOUNTER → 2024-12-08 | Outpatient (CLI) | payer MEDICAID, SELFPAY ==
--- NOTE | 2024-12-08 08:30 | MRI_ITS ---
PROCEDURE: MRI left shoulder without IV contrast REASON FOR EXAM: Pain, injury TECHNIQUE: Multisequence multiplanar MR images of the left shoulder were obtained without the administration of intravenous contrast. COMPARISON: None FINDINGS Full-thickness full width tear of the distal supraspinatus tendon with retraction to the level of the superior humeral head measuring at least 2.5 cm from its footplate. Contiguous small full-thickness tear of the anterior insertional fibers of the infraspinatus tendon. Mid to posterior infraspinatus tendon fibers are grossly intact. Subscapularis and teres minor tendons are intact. Mild/moderate supraspinatus muscle atrophy. Long head biceps tendon is grossly intact. Degenerative tearing of the posterior labrum which is severely diminutive and frayed. No paralabral cysts. No focal full-thickness chondral defects. Small glenohumeral joint effusion without significant synovitis. Moderate acromioclavicular joint osteoarthritis including articular surface irregularity and small marginal osteophytes. Negative for acute fracture or marrow replacement. Enthesopathic cysts throughout the greater and lesser humeral tuberosities, largest at the lesser tuberosity measuring 15 mm in diameter. Fluid in the subacromial/subdeltoid bursa secondary to the supraspinatus tendon tear. MRI/Upper Ext Joint Only(Routine) IMPRESSION: 1. Full-thickness full width retracted tear of the supraspinatus tendon. 2. Full-thickness partial width tear of the anterior fibers of the infraspinatu s tendon, contiguous with the supraspinatus tendon tear. 3. Degenerative tearing of the posterior labrum. 4. Moderate acromioclavicular joint osteoarthritis. Reading Location: [facility]
== END | disposition home or self-care (01) ==
LOC: MRI 08:15
PROVIDERS: PCP Student in an Organized Health Care Education/Training Program; Referring Provider Orthopaedic Surgery Sports Medicine; Visit Provider Orthopaedic Surgery Sports Medicine
DX: S49.92XA Unspecified injury of left shoulder and upper arm, initial encounter (principal); W11.XXXA Fall on and from ladder, initial encounter
CPT/HCPCS: 73221

== ENCOUNTER → 2024-12-22 | Outpatient (CLI) | payer MEDICAID, SELFPAY ==
--- NOTE | 2024-12-22 08:57 | MRI_ITS ---
PROCEDURE: MRI SPINE LUMBAR (ROUTINE) REASON FOR EXAM: Pain. TECHNIQUE: Noncontrast lumbar spine MRI. COMPARISON: Lumbar spine radiograph from 10/09/2023. Lumbar spine CT from 08/09/2023. FINDINGS: There is mild chronic anterior wedging of L2 and L4. There is diminished signal intensity involving the discs of the lumbar spine related to degenerative disc disease. Multilevel disc space narrowing with endplate spurring is present greatest at L5-S1. There is mild levoscoliosis of the lumbar spine. No acute fracture or subluxation is identified. There is bone marrow edema along the right facet at L3 likely on a degenerative basis. The tip of the conus medullaris terminates at L2 and signal intensity of the included spinal cord is within normal limits. Paraspinous musculature is unremarkable. Individual levels: L1-2: Disc bulge and facet/flavum hypertrophy with no significant central canal stenosis. Mild bilateral neural foraminal narrowing is present. L2-3: Mild disc bulge and facet/flavum hypertrophy with no significant central canal stenosis. Mild bilateral neural foraminal narrowing is present. L3-4: Mild disc bulge and mild facet arthropathy with no significant central canal stenosis. [id number] left and mild right neural foraminal narrowing is present. L4-5: Mild retrolisthesis with disc bulge and facet arthropathy with no significant central canal stenosis. Moderate bilateral neural foraminal narrowing is present. L5-S1: Disc bulge and facet arthropathy with no significant central canal stenosis. Severe bilateral neural foraminal narrowing is present. MRI/Spine Lumbar (Routine) IMPRESSION: 1. Multilevel degenerative disc disease and spondylosis with no significant mary kay tral canal stenosis. Multilevel varying degrees of neural foraminal narrowing are identified which are on a severe basis at L5- S1. 2. Mild bone marrow edema along the right facet at L3 likely on a degenerative basis. Reading Location: [facility]
== END | disposition home or self-care (01) ==
LOC: MRI 08:52
PROVIDERS: PCP Student in an Organized Health Care Education/Training Program; Referring Provider Student in an Organized Health Care Education/Training Program; Visit Provider Student in an Organized Health Care Education/Training Program
DX: M54.16 Radiculopathy, lumbar region (principal); M21.379 Foot drop, unspecified foot
CPT/HCPCS: 72148

== ENCOUNTER 2025-01-01 14:00 | Emergency (ER) | payer MEDICAID, SELFPAY ==
[2025-01-01 14:02] VITALS: BP 126/72; PULSE 56; RESP 15; TEMP 36.7; O2SAT 99; BMI 22.1
--- NOTE | 2025-01-01 14:18 | EDS_ITS ---
HPI History of Present Illness Chief Complaint: Flank Pain Informant: patient Narrative Narrative: Nontraumatic right flank pain after waking yesterday. Little dysuria when he urinates. No fevers reports chills. No vomiting. No history of kidney stones. Allergies to NSAIDs. Allergies to tramadol and hydrocodone. Has tolerated morphine in the past. Denies pain down the legs. Denies any loss of bowel or bladder control. Prior similar symptoms: No PFSH PFSH Medical History Left rotator cuff tear Anemia GERD (gastroesophageal reflux disease) Left shoulder pain Hemorrhoid Epilepsy Sciatica High cholesterol Home Medications ?Medication ?Instructions ?Recorded ?Last Taken ?Type gabapentin 300 mg capsule 300 mg PO 4X/DAY 04/02/22 Un known History hydrocortisone acetate 25 mg 25 mg [place] QHS #12 ea 04/27 Unknown Rx rectal suppository (Anusol-HC) atorvastatin 40 mg tablet (Lipitor) 40 mg PO QHS 01/13 Unknown History polyethylene glycol 3350 17 17 g PO DAILY #119 grams 0 05/31/23 Unknown Rx gram/dose oral powder (ClearLax) cyclobenzaprine 5 mg tablet 5 mg PO TID PRN muscle spa sm 4 11/05/24 Unknown Rx days #12 tabs clopidogrel 75 mg tablet 75 mg PO QDAY 11/13/24 Unkno wn History duloxetine 30 mg capsule,delayed See Rx Instructions P O QDAY 11/13/24 Unknown History release ferrous sulfate 325 mg (65 mg 325 mg PO QDAY 11/13/24 Unknown History iron) tablet pantoprazole 40 mg tablet,delayed 40 mg PO QDAY Unknown History release ondansetron 4 mg disintegrating 4 mg PO Q8H PRN PRN Na usea #10 tabs 11/25/24 Unknown Rx tablet oxycodone-acetaminophen 5 mg-325 1 tab PO Q8H PRN pain 3 days #10 11/25/24 Unknown Rx mg tablet (Percocet) tabs diazepam 5 mg tablet 5 mg PO Q8 PRN Muscle Spasm #10 01/01/25 Unknown Rx tabs Allergy/AdvReac Type Severity Reaction Status Date / Time adhesive tape (tape) AdvReac Rash Verified 01/01/25 14:03 hydrocodone (From [place]) AdvReac Upset Verified 01/01/25 14:03 Stomach ibuprofen AdvReac Upset Verified 01/01/25 14:03 Stomach ketorolac (From Toradol) AdvReac Rash Verified 01/01/25 14:03 meloxicam (From Mobic) AdvReac Muscle Verified 01/01/25 14:03 weakness naproxen AdvReac Rash Verified 01/01/25 14:03 tramadol AdvReac Upset Verified 01/01/25 14:03 Stomach Family History Other Cancer Diabetes Heart disease Surgical History Leg fracture, left S/P clamping of cerebral aneurysm Social History household members: significant other Smoking Status: Former smoker alcohol intake: former substance use type: does not use ROS ROS ED Constitutional Constitutional ED: Denies chills, fever(s) or sweats ENT ENT ED: Denies sore throat Cardiovascular Cardiovascular: Denies chest pain, leg edema, palpitations or racing heartbeat Respiratory/Chest Respiratory/Chest: Denies cough, dyspnea or dyspnea on exertion Gastrointestinal Gastrointestinal: Denies abdominal pain, diarrhea, nausea or vomiting Genitourinary Genitourinary ED: Denies dysuria, hematuria or urinary frequency Musculoskeletal Musculoskeletal: Reports back pain; Denies extremity pain or neck pain Integumentary Denies rash or wounds Neurologic Neurologic: Denies headache(s), paresthesias or weakness EXAM Physical Exam Const Vital Signs: 01/01/25 14:02 01/01/25 16:01 01/01/25 17:09 Temperature 98.1 F 98 F Temperature Source Temporal Pulse Rate 56 L 63 63 Respiratory Rate 15 16 16 Blood Pressure 126/72 H 122/74 H 122/74 H Blood Pressure Mean 90 90 90 Pulse Ox 99 99 99 Oxygen Delivery Method Room Air Positive well nourished and well developed General Appearance ED: well developed and NAD HEENT Reports moist mucous membranes normocephalic and atraumatic Eyes General Eye ED: Yes normal appearance of both eyes Neck full ROM Chest Wall Chest: Negative for tenderness Resp normal respiratory effort and normal air movement Effort and Inspection: symmetric chest movement; Negative for respiratory distress Cardio regular rate, regular rhythm and no murmurs Peripheral Pulses: pulses 2+ throughout GI normal to inspection, nondistended, normoactive bowel sounds and non-tender Palpation: Negative for guarding or rebound tenderness present Back/Spine Back/Spine Narrative: Right flank tenderness no rash straight leg test negative bilaterally. Extremity normal to inspection General Extremety ED: Negative for edema or tenderness General Extremity: Negative for edema Neuro oriented x3 and no sensory deficits noted Sensorium / Orientation: awake and alert Skin no rashes or lesions noted and no wounds MDM MDM MDM Narrative Medical decision making narrative: Interventions / MDM: Differential diagnosis: Flank pain, lumbar strain Diagnosis considered but do not suspect: Kidney stone however CT negative. My EKG interpretation: N/A Imaging independently reviewed and interpreted by myself: CT abdomen pelvis: No obstructive uropathy. Fat-containing hernias. Fatty liver. Reported constipation radiology on my review stool buildup more in the transverse colon there is no significant stool burden. External documents reviewed: N/A Test considered but not ordered:N/A ED course: Nontraumatic right flank pain. IV established for meds. Morphine Zofran. Avoiding NSAIDs with his allergies. Renal stone protocol labs urine flank CT for further evaluation. CT scan negative for obstructive process. Constipation per radiology however noted transverse process with no significant burden. This is not causing his pain symptoms. He is requesting more pain meds for which I does with Valium for concerns for muscle strain. Labs normal urine noted small amount of blood however no kidney stone seen on CT. Reevaluation clinically was feeling better. He cannot do NSAIDs due to allergies. Discussed Tylenol 1 g every 6 hours. Prescription for evaluate to use as needed. Outpatient follow with his doctor. All questions were answered. Re-evaluation: stable Disposition discussed with patient/family/significant other: Patient Case discussed with consulting clinician: N/A This note was generated with [employer] dictation software. It may contain incorrect words, spelling, and punctuation that were not noted in checking the note before signing. Lab Data Attestation: I reviewed the patient's lab results. Labs: Laboratory Results - last 24 hr 01/01/25 01/01/25 14:35 15:40 WBC 5.9 RBC 4.06 L Hgb 12.2 L Hct 37.1 L MCV 91.4 MCH 30.0 MCHC 32.9 RDW Std Deviation 48.0 H RDW Coeff of Jerry 14.3 Plt Count 327 MPV 8.3 Immature Gran % (Auto) 0.300 Neut % (Auto) 53.4 Lymph % (Auto) 28.4 [place] % (Auto) 11.6 H Eos % (Auto) 5.1 H Baso % (Auto) 1.2 H Absolute Neuts (auto) 3.1 Absolute Lymphs (auto) 1.67 Nucleated RBC % 0 Sodium 138 Potassium 4.4 Chloride 104 Carbon Dioxide 25.1 Anion Gap 8 BUN 21 H Creatinine 0.93 Estim Creat Clear Calc 77.55 Est GFR (MDRD) Non-Af 90 BUN/Creatinine Ratio 22.3 H Glucose 95 Calcium 9.0 Urine Color Yellow Urine Clarity Sl. Cloudy Urine pH 6.5 Ur Specific [place] 1.010 Urine Protein Negative Urine Glucose (UA) Normal Urine Ketones Negative Urine Occult Blood 25 H Urine Nitrite Negative Urine Bilirubin Negative Urine Urobilinogen Normal Ur Leukocyte Esterase Negative Urine RBC 0-5 SEEN Urine WBC 0 SEEN Ur Squamous Epith Cells 0-5 SEEN Urine Bacteria 0 SEEN Urine Mucus 0 SEEN Radiography Diagnostic Testing: Clinical Impression(s) from Imaging Studies Abdomen/Pelvis CT 01/01/25 15:00 IMPRESSION: 1. Bilateral hydroceles, larger on the left. 2. Hepatomegaly with fatty infiltration. 3. Fecal retention in the colon consistent with constipation. 4. Umbilical hernia containing fat. 5. No obstructive uropathy. 6. Colonic diverticulosis without acute diverticulitis. Reading Location: [facility] Discharge Plan Triage Chief Complaint: Flank Pain ED Provider: Dean Del Cid Dx/Rx/DC Orders Clinical Impression: Acute right flank pain, Lumbar strain Instructions: ED Back Sprain/Strain, ED Flank Pain, Uncertain Cause Prescriptions: New diazepam [diazepam] 5 mg tablet 5 mg PO Q8 PRN (Reason: Muscle Spasm) Qty: 10 0RF No Action ferrous sulfate 325 mg (65 mg iron) tablet 325 mg PO QDAY pantoprazole 40 mg tablet,delayed release (DR/EC) 40 mg PO QDAY gabapentin 300 mg capsule 300 mg PO 4X/DAY hydrocortisone acetate [Anusol-HC] 25 mg suppository 25 mg [place] QHS Qty: 12 0RF atorvastatin [Lipitor] 40 mg Tablet 40 mg PO QHS polyethylene glycol 3350 [ClearLax] 17 gram/dose powder 17 g PO DAILY Qty: 119 0RF clopidogrel 75 mg tablet 75 mg PO QDAY Patient Comments: TAKE 1 TABLET BY MOUTH EVERY DAY duloxetine 30 mg capsule,delayed release(DR/EC) See Rx Instructions PO QDAY Patient Comments: TAKE 2 CAPSULE BY MOUTH in AM and 1 cap at night Rx Instructions: orally daily; oxycodone-acetaminophen [Percocet] 5-325 mg tablet 1 tab PO Q8H PRN (Reason: pain) 3 Days Qty: 10 0RF ondansetron 4 mg tablet,disintegrating 4 mg PO Q8H PRN PRN (Reason: Nausea) Qty: 10 0RF cyclobenzaprine 5 mg tablet 5 mg PO TID PRN (Reason: muscle spasm) 4 Days Qty: 12 0RF Primary Care Provider: Jefferson Gregorio Referrals: Jeffesron Gregorio DO [Primary Care Provider] - 3-5 Days Activity Restrictions/Additional Instructions: CT scan negative for kidney stones or any acute process. Your labs are stable urine negative for infection. Use Tylenol up to 1 g every 6 hours for pain. Use Valium as needed for concerns for muscle strain. Constipation read on your CT however on my review no significant constipation. Continue oral fluids for hydration. Follow-up with your doctor. Print Language: Bhutanese Disposition Disposition: Home, Self Care Discharge Date/Time: 01/01/25 17:10
[2025-01-01] MEDS: 0.9% Normal Saline (500mL Bag) 500 ML 999 ML IV (14:37)
[2025-01-01] MEDS: Ondansetron 4 MG/2 ML Vial IV (14:37)
[2025-01-01] MEDS: Morphine 4 MG/ML Syringe IV (14:37)
[2025-01-01 14:41] LABS: Absolute Lymphocyte Count 1.67 X10^3/uL (0.83-4.51); Absolute Neutrophil Count 3.1 X10^3/uL (2.0-7.7); Basophil# 0.07 X10^3/uL; Basophil% 1.2 % (0-1); Eosinophils% 5.1 % (0-5); Hematocrit 37.1 % (40-54); Hemoglobin 12.2 g/dL (13.0-16.5); Lymphocyte # 1.67 X10^3/ul (0.83-4.51); Lymphocyte % 28.4 % (19-41); Mean Corp Hgb Conc 32.9 g/dL (32-36); Mean Corpuscular Volume 91.4 fL (80-94); Mean Platelet Vol. 8.3 fl (6.2-12.0); Monocyte# 0.68 X10^3/uL; Monocyte% 11.6 % (0-10); NRBC Flagged by Analyzer 0 % (0-5); Neutrophil # 3.14 X10^3/uL (2.7-7.7); Neutrophil % 53.4 % (47-70); Platelet Count 327 K/mm3 (150-450); RBC Distribution Width CV 14.3 % (11.6-14.6); Red Blood Count 4.06 M/mm3 (4.6-6.2); White Blood Count 5.9 K/mm3 (4.4-11.0)
[2025-01-01 14:58] LABS: Anion Gap 8 (5-15); BUN 21 mg/dL (4-19); BUN/Creat Ratio 22.3 RATIO (10-20); Carbon Dioxide 25.1 mmol/L (21.0-32.0); Chloride 104 mmol/L (98-108); Creatinine, Serum 0.93 mg/dL (0.70-1.20); EST Glomerular Filtration Rate 90 (>60); Estimated Creatinine Clearance 77.55 ml/min (50-250); Glucose 95 mg/dL (70-99); Potassium 4.4 mmol/L (3.3-5.1); Sodium Level 138 mmol/L (133-145)
--- NOTE | 2025-01-01 15:00 | CT_ITS ---
EXAM: CT Abdomen and Pelvis Without Intravenous Contrast CLINICAL INDICATION: KIDNEY STONE TECHNIQUE: Axial computed tomography images of the abdomen and pelvis without intravenous contrast. This CT exam was performed using one or more of the following dose reduction techniques: automated exposure control, adjustment of the mA and/or kV according to patient size, and/or use of iterative reconstruction technique. COMPARISON: CT Abdomen Pelvis dated 11/05/2024 FINDINGS: LUNG BASES: Unremarkable. No mass. No consolidation. ABDOMEN: LIVER: Hepatomegaly with fatty infiltration. GALLBLADDER AND BILE DUCTS: Unremarkable. No calcified stones. No ductal dilation. PANCREAS: Unremarkable. No ductal dilation. SPLEEN: Pelvic calculi in the spleen. ADRENALS: Unremarkable. No mass. KIDNEYS AND URETERS: 1.3 cm hyperdense lesion of the right kidney, likely cyst. No stones within either kidney. No hydronephrosis. STOMACH AND BOWEL: Fecal retention in the colon consistent with constipation. Colonic diverticulosis without acute diverticulitis. No obstruction. PELVIS: APPENDIX: No findings to suggest acute appendicitis. BLADDER: Unremarkable. No stones. REPRODUCTIVE: Bilateral hydroceles, larger on the left. ABDOMEN and PELVIS: INTRAPERITONEAL SPACE: Unremarkable. No free air. No significant fluid collection. BONES/JOINTS: No acute fracture. No dislocation. SOFT TISSUES: Umbilical hernia containing fat. VASCULATURE: Scattered calcified atherosclerotic disease of aorta. No abdominal aortic aneurysm. LYMPH NODES: Unremarkable. No enlarged lymph nodes. CT/Abdomen/Pelvis without Cont IMPRESSION: 1. Bilateral hydroceles, larger on the left. 2. Hepatomegaly with fatty infiltration. 3. Fecal retention in the colon consistent with constipation. 4. Umbilical hernia containing fat. 5. No obstructive uropathy. 6. Colonic diverticulosis without acute diverticulitis. Reading [facility]
[2025-01-01 15:57] LABS: Bacteria 0 SEEN /hpf (None Seen); Mucous, Urine 0 SEEN /hpf (<or=2+); White Blood Cells 0 SEEN /hpf (0-5)
[2025-01-01 16:00] LABS: Color, Urine Yellow (Yellow); Glucose, Dipstick Normal (Normal); Ketone-Dipstick Negative (Negative); Leukocyte Esterase-Dipstick Negative /ul (Negative); Nitrite-Dipstick Negative (Negative); Occult Blood-Urine 25 /ul (Negative); Protein-Dipstick Negative (Negative); Urine Bilirubin Dipstick Negative (Negative); Urine Clarity Sl. Cloudy (Clear); Urine Urobilinogen Normal (Normal); Urine pH 6.5 (5.0 - 8.0)
[2025-01-01 16:01] VITALS: BP 122/74; PULSE 63; RESP 16; O2SAT 99
[2025-01-01] MEDS: diazePAM 5 MG Tablet PO (16:07)
[2025-01-01 16:17] LABS: Red Blood Cells-Urine 0-5 SEEN /hpf (0-5); Squamous Epithelial Cells - UA 0-5 SEEN /hpf (0-5)
[2025-01-01 17:09] VITALS: BP 122/74; PULSE 63; RESP 16; TEMP 36.6; O2SAT 99
== END 2025-01-01 17:10 | disposition home or self-care (01) ==
PROVIDERS: Emergency Provider Emergency Medicine; PCP Student in an Organized Health Care Education/Training Program; Referring Provider Emergency Medicine; Visit Provider Emergency Medicine
DX: R10.9 Unspecified abdominal pain (principal); E78.00 Pure hypercholesterolemia, unspecified; S39.012A Strain of muscle, fascia and tendon of lower back, initial encounter; Z87.891 Personal history of nicotine dependence; Z79.899 Other long term (current) drug therapy; K21.9 Gastro-esophageal reflux disease without esophagitis
CPT/HCPCS: 74176; 80048; 81001; 85025; 96361; 96374; 96375; 99283; J2405

== ENCOUNTER 2025-01-03 16:39 | Emergency (ER) | payer MEDICAID, SELFPAY ==
[2025-01-03 16:39] VITALS: BP 146/82; PULSE 68; RESP 15; TEMP 36.1; O2SAT 100; BMI 22.0
--- NOTE | 2025-01-03 16:54 | EDS_ITS ---
HPI <NIKI Bird - Last Filed: 01/03/25 18:42> History of Present Illness Chief Complaint: Flank Pain Narrative Narrative: 69-year-old male presents with right flank pain that started 4 days ago after waking up. He had a small amount of dysuria. No fever, chills, vomiting, or hematuria. He was seen here 2 days after onset on 01/01 and had a negative CT scan of the abdomen/pelvis and was diagnosed with a muscle strain and has been taking Tylenol and the prescribed diazepam. It helps but he still has sharp right flank pain that worsens with urination. States he has not been drinking fluids as much because he does not want to urinate. He has no hematuria or penile discharge. No fever chills or vomiting. PFS <NIKI Bird - Last Filed: 01/03/25 18:42> [facility] Medical History Left rotator cuff tear Anemia GERD (gastroesophageal reflux disease) Left shoulder pain Hemorrhoid Epilepsy Sciatica High cholesterol Home Medications ?Medication ?Instructions ?Recorded ?Last Taken ?Type gabapentin 300 mg capsule 300 mg PO 4X/DAY 04/02/22 Un known History hydrocortisone acetate 25 mg 25 mg [place] QHS #12 ea 04/27 Unknown Rx rectal suppository (Anusol-HC) atorvastatin 40 mg tablet (Lipitor) 40 mg PO QHS 01/13 Unknown History polyethylene glycol 3350 17 17 g PO DAILY #119 grams 0 05/31/23 Unknown Rx gram/dose oral powder (ClearLax) cyclobenzaprine 5 mg tablet 5 mg PO TID PRN muscle spa sm 4 11/05/24 Unknown Rx days #12 tabs clopidogrel 75 mg tablet 75 mg PO QDAY 11/13/24 Unkno wn History duloxetine 30 mg capsule,delayed See Rx Instructions P O QDAY 11/13/24 Unknown History release ferrous sulfate 325 mg (65 mg 325 mg PO QDAY 11/13/24 Unknown History iron) tablet pantoprazole 40 mg tablet,delayed 40 mg PO QDAY Unknown History release ondansetron 4 mg disintegrating 4 mg PO Q8H PRN PRN Na usea #10 tabs 11/25/24 Unknown Rx tablet oxycodone-acetaminophen 5 mg-325 1 tab PO Q8H PRN pain 3 days #10 11/25/24 Unknown Rx mg tablet (Percocet) tabs diazepam 5 mg tablet 5 mg PO Q8 PRN Muscle Spasm #10 01/01/25 Unknown Rx tabs Allergy/AdvReac Type Severity Reaction Status Date / Time adhesive tape (tape) AdvReac Rash Verified 01/03/25 16:39 hydrocodone (From [place]) AdvReac Upset Verified 01/03/25 16:39 Stomach ibuprofen AdvReac Upset Verified 01/03/25 16:39 Stomach ketorolac (From Toradol) AdvReac Rash Verified 01/03/25 16:39 meloxicam (From Mobic) AdvReac Muscle Verified 01/03/25 16:39 weakness naproxen AdvReac Rash Verified 01/03/25 16:39 tramadol AdvReac Upset Verified 01/03/25 16:39 Stomach Family History Other Cancer Diabetes Heart disease Surgical History Leg fracture, left S/P clamping of cerebral aneurysm Social History household members: significant other Smoking Status: Former smoker alcohol intake: former substance use type: does not use ROS <NIKI Bird - Last Filed: 01/03/25 18:42> ROS ED ROS Narrative Constitutional: Negative for fever, chills, malaise. GI: Negative for abdominal pain, nausea, vomiting, diarrhea,. : Negative for dysuria, hematuria or frequency. EXAM <NIKI Bird - Last Filed: 01/03/25 18:42> Physical Exam Narrative Exam Narrative: CONST: Patient sitting in no acute distress. EYES: Normal inspection. NECK: Normal inspection. RESP: No respiratory distress, CTAB. CVS: Regular rate and rhythm, no murmur, no gallop. ABD: Soft and nontender, no guarding or rebound, nondistended. Back: Normal inspection, no midline tenderness or step-offs. Reproducible tenderness over right thoracic and lumbar musculature. SKIN: Color normal, no rash, warm, dry, intact. No zoster. EXTREMITIES: Normal appearance, no pedal edema. NEURO: Alert and answering questions appropriately. PSYCH: Normal affect. Const Vital Signs: 01/03/25 16:39 Temperature 97 F L Temperature Source Temporal Pulse Rate 68 Respiratory Rate 15 Blood Pressure 146/82 H Blood Pressure Mean 103 Pulse Ox 100 Oxygen Delivery Method Room Air <Dr. Ken Mari MD - Last Filed: 01/03/25 18:36> Physical Exam Const Vital Signs: 01/03/25 16:39 Temperature 97 F L Temperature Source Temporal Pulse Rate 68 Respiratory Rate 15 Blood Pressure 146/82 H Blood Pressure Mean 103 Pulse Ox 100 Oxygen Delivery Method Room Air MDM <NIKI Bird - Last Filed: 01/03/25 18:42> [facility] MDM Narrative Medical decision making narrative: 69-year-old male has a right flank pain for about 4 days. Feels it is worse with urination. He was seen. 2 days ago and had extensive workup including labs, UA, CT which were all negative. He was treated as musculoskeletal pain with Valium and Tylenol. He presents with the same symptoms. Appears well and nontoxic. Vital signs stable. He has a benign cardiopulmonary exam. Abdomen soft, nontender. He has reproducible right thoracic and lumbar pain. No midline pain. I told him that we would start with checking a urinalysis. I would not jump to getting a repeat CT scan due to risk of radiation and the fact that it was negative just 2 days ago. Urinalysis has negative nitrates, no red or white cells, 2+ bacteria. He is not having dysuria, only right flank pain when he urinates. However with it being very reproducible to palpation with movement I do still think this is musculoskeletal. I do not initially ordered anything for pain because he is allergic to NSAIDs and had already taken Tylenol and Valium so I told him I would like to wait for the UA results. The attending was delayed from speaking with him due to more critical patient and patient eloped from the department. I have personally performed a face to face assessment of the patient and have reviewed the JOSE D Note. I performed a substantive portion of the visit including all aspects of the following. My clark findings include: History is [ 69-year-old male flank pain.] Seen the other day had a large workup including CT and UA which were negative. On JOSE D's exam appeared to be musculoskeletal pain. Exam is [I was going to evaluate the patient. I was delayed due to a much more critical patient with a significant injury that we had to send to a trauma center. As I was going to the patient's room to evaluate him he left without being discharged. Nurses tried to talk him into remaining psych evaluating any left.] Medical Decision Making [ ] Other additions or changes: [None] Lab Data Labs: Laboratory Results - last 24 hr 01/03/25 17:30 Urine Color Yellow Urine Clarity Clear Urine pH 7.0 Ur Specific [place] 1.010 Urine Protein Negative Urine Glucose (UA) Normal Urine Ketones Negative Urine Occult Blood 25 H Urine Nitrite Negative Urine Bilirubin Negative Urine Urobilinogen 1 H Ur Leukocyte Esterase Negative Urine RBC 0-5 SEEN Urine WBC 0 SEEN Ur Squamous Epith Cells 0-5 SEEN Ur Transition Epith Cell 0-5 SEEN Urine Bacteria 2+ Urine Mucus 1+ <Dr. Ken Mari MD - Last Filed: 01/03/25 18:36> MDM MDM Narrative Medical decision making narrative: I have personally performed a face to face assessment of the patient and have reviewed the JOSE D Note. I performed a substantive portion of the visit including all aspects of the following. My clark findings include: History is [ 69-year-old male flank pain.] Seen the other day had a large workup including CT and UA which were negative. On JOSE D's exam appeared to be musculoskeletal pain. Exam is [I was going to evaluate the patient. I was delayed due to a much more critical patient with a significant injury that we had to send to a trauma center. As I was going to the patient's room to evaluate him he left without being discharged. Nurses tried to talk him into remaining psych evaluating any left.] Medical Decision Making [ ] Other additions or changes: [None] Lab Data Attestation: I reviewed the patient's lab results. Lab results narrative: UA negative. Labs: Laboratory Results - last 24 hr 01/03/25 17:30 Urine Color Yellow Urine Clarity Clear Urine pH 7.0 Ur Specific [place] 1.010 Urine Protein Negative Urine Glucose (UA) Normal Urine Ketones Negative Urine Occult Blood 25 H Urine Nitrite Negative Urine Bilirubin Negative Urine Urobilinogen 1 H Ur Leukocyte Esterase Negative Urine RBC 0-5 SEEN Urine WBC 0 SEEN Ur Squamous Epith Cells 0-5 SEEN Ur Transition Epith Cell 0-5 SEEN Urine Bacteria 2+ Urine Mucus 1+ Discharge Plan Triage Chief Complaint: Flank Pain ED Midlevel Provider: Irene Franks ED Provider: Ken Mari Dx/Rx/DC Orders Prescriptions: No Action ferrous sulfate 325 mg (65 mg iron) tablet 325 mg PO QDAY pantoprazole 40 mg tablet,delayed release (DR/EC) 40 mg PO QDAY gabapentin 300 mg capsule 300 mg PO 4X/DAY hydrocortisone acetate [Anusol-HC] 25 mg suppository 25 mg [place] QHS Qty: 12 0RF atorvastatin [Lipitor] 40 mg Tablet 40 mg PO QHS polyethylene glycol 3350 [ClearLax] 17 gram/dose powder 17 g PO DAILY Qty: 119 0RF clopidogrel 75 mg tablet 75 mg PO QDAY Patient Comments: TAKE 1 TABLET BY MOUTH EVERY DAY duloxetine 30 mg capsule,delayed release(DR/EC) See Rx Instructions PO QDAY Patient Comments: TAKE 2 CAPSULE BY MOUTH in AM and 1 cap at night Rx Instructions: orally daily; oxycodone-acetaminophen [Percocet] 5-325 mg tablet 1 tab PO Q8H PRN (Reason: pain) 3 Days Qty: 10 0RF ondansetron 4 mg tablet,disintegrating 4 mg PO Q8H PRN PRN (Reason: Nausea) Qty: 10 0RF cyclobenzaprine 5 mg tablet 5 mg PO TID PRN (Reason: muscle spasm) 4 Days Qty: 12 0RF diazepam [diazepam] 5 mg tablet 5 mg PO Q8 PRN (Reason: Muscle Spasm) Qty: 10 0RF Primary Care Provider: Jefferson Gregorio Referrals: Jefferson Gregorio DO [Primary Care Provider] - Print Language: [place]
[2025-01-03 17:41] LABS: White Blood Cells 0 SEEN /hpf (0-5)
[2025-01-03 17:47] LABS: Color, Urine Yellow (Yellow); Glucose, Dipstick Normal (Normal); Ketone-Dipstick Negative (Negative); Leukocyte Esterase-Dipstick Negative /ul (Negative); Nitrite-Dipstick Negative (Negative); Occult Blood-Urine 25 /ul (Negative); Protein-Dipstick Negative (Negative); Urine Bilirubin Dipstick Negative (Negative); Urine Clarity Clear (Clear); Urine Urobilinogen 1 mg/dl (Normal)
[2025-01-03 17:53] LABS: Bacteria 2+ /hpf (None Seen); Red Blood Cells-Urine 0-5 SEEN /hpf (0-5); Squamous Epithelial Cells - UA 0-5 SEEN /hpf (0-5); Transitional Epithelial - Ur 0-5 SEEN /hpf (0-5)
[2025-01-03 17:54] LABS: Mucous, Urine 1+ /hpf (<or=2+)
--- NOTE | 2025-01-03 18:25 | ED.RN ---
Pt. verbalized frustration with not getting any pain medications. Provider notified of frustrations. Pt. stated if youre not going to do anything with this IV then take it out. Ismael removed IV for fear of elopement. Pt. then walked out of ER a few minutes later. Nani KING asked pt. if she could grab the Dr. for him right now and pt. stated no and continued to walk out.
== END 2025-01-03 18:44 | disposition left against medical advice (07) ==
LOC: ED 17:22
PROVIDERS: Physician Assistant; Emergency Provider Emergency Medicine; PCP Student in an Organized Health Care Education/Training Program; Visit Provider Emergency Medicine
DX: R10.9 Unspecified abdominal pain (principal); Z87.891 Personal history of nicotine dependence; E78.00 Pure hypercholesterolemia, unspecified; Z79.899 Other long term (current) drug therapy
CPT/HCPCS: 81001; 99283; A4216

== ENCOUNTER 2025-04-04 11:52 | Emergency (ER) | payer MEDICAID, SELFPAY ==
[2025-04-04 11:53] VITALS: BP 140/76; PULSE 74; RESP 19; TEMP 36.7; O2SAT 100; BMI 20.8
--- OUTSIDE RECORDS SUMMARY | 2025-04-04 14:27 | XMS RPT_ITS | CCD ---
Author Organization [facility] Care Team Providers Care Project Mgr Name Role Phone KADEEM LEVI Unavailable Unavailable RayRoneyGayle Unavailable Unavailable PROVIDER, UNKNOWN Unavailable Unavailable No, PCP Unavailable Unavailable Ray, Gayle Unavailable Unavailable PROVIDER, UNKNOWN Unavailable Unavailable No, PCP Unavailable Unavailable Unavailable Primary Care Provider UnavailEugenio Randhawa Unavailable Unavailable Unavailable EUGENIO MAYEN DO Primary Care Physician [phone] Unavailable Primary Care Provider Unavailorion TOUSSAINT, DR NAWAF Funes Admitting Unavaila ble AUGUSTA, DR NAWAF Funes Attending Unavaila ble AUGUSTA, DR NAWAF Funes Primary Care Unavaila ble AUGUSTA, DR NAWAF Funes Admitting Unavaila ble AUGUSTA, DR NAWAF Funes Attending Unavaila ble EUGENIO MAYEN IV Referring Unavailable AUGUSTA, DR NAWAF Funes Primary Care Unavaila ble EUGENIO MAYEN IV Consulting Unavailable PROVIDER, UNKNOWN Consulting Unavailable Faheem NOLAND MD, Michael Primary Care Provider [phone] Faheem NOLAND DO, Michael Primary Care Provider [phone] Marcell Ramsey Unavailable Faheem NOLAND DO, Michael A Primary Care Provider [phone] HALMARII NOLAND SARAI Referring Unavailable HALKO IV, SARAI Primary Care Unavailable HUBERT JETT Attending Unavailable HALKO IV, SARAI Primary Care Unavailable JOSEU, ENYINNA Referring Unavailable HALKO IV, SARAI Primary Care Unavailable PRETTY CARDENAS Consulting Unavailable YESSICA GOTTLIEB Attending Unavailable MARY JO HERNANDEZ Admitting Unavailable HALKO IV, SARAI Primary Care Unavailable HALKO IV, SARAI Primary Care Unavailable LONNIE, EMILYYINNA L Attending Unavailable HALKO IV, SARAI Primary Care Unavailable LONNIE, EMILYYINNA Peña Attending Unavailable HAMILTON AGARWAL Attending Unavailable HALKO IV, SARAI Primary Care Unavailable LENILOVE, HAMILTON PAREDES Attending Unavailable HALKO IV, SARAI Primary Care Unavailable HALKO DO, EUGENIO Attending Unavailable HALKO DO, EUGENIO Primary Care Unavailable HALKO DO, EUGENIO Primary Care Unavailable HALKO DO, EUGENIO Attending Unavailable HALKO DO, EUGENIO Primary Care Unavailable HALKO DO, EUGENIO Attending Unavailable HALKO DO, EUGENIO Primary Care Unavailable HALKO DO, EUGENIO Attending Unavailable HALKO DO, EUGENIO Primary Care Unavailable HALKO DO, EUGENIO Attending Unavailable HALKO DO, EUGENIO Primary Care Unavailable LINDA LUCAS, ADRIÁN W Attending Unavailable HALKO DO, EUGENIO Primary Care Unavailable ALEXANDRIA LUCAS, DR ZORAN Casillas Attending Unavail able HALKO DO, EUEGNIO Primary Care Unavailable HALKO DO, EUGENIO Attending Unavailable Vitalyko , Dr. Paulino Primary Care Provider Marco A LFEMING, Dr. Collins Attending Provider Marco A FLEMING, Dr. Collins Referring Provider Marco A FLEMING, Dr. Collins Emergency Provider Faheem FLEMING, Dr. Paulino Referring Provider Jacob Dominguez MD Attending Provider [phone] Aiyana Bolanos Attending Provider Gracia LUCAS, Dr. Hansen Attending Provider [phone] Prachi FLEMING, Dr. Samuels Attending Provider [phone] Abril Velarde DO Emergency Provider [phone] Jacob Dominguez MD Referring Provider [phone] Aiyana Bolanos Referring Provider Colten FLEMING, Dr. Moran Referring Provider [phone] Dr. Dean Del Cid DO Emergency Provider Dr. Ken Mari MD Emergency Provider [phone] Provider MD, Not In System Primary Care Provider Unavailable GO RICE Referring Unavailable GO RICE Attending Unavailable GO RICE Referring Unavailable GO RICE Attending Unavailable GO RICE Attending Unavailable Faheem FLEMING, Dr. Paulino Primary Care Provider Jacob Dominguez MD Attending Provider Dr. Eugenio Mayen DO Referring Provider Aiyana Bolanos Attending Provider Dr. Dean Del Cid DO Attending Provider Dr. Ken Mari MD Attending Provider Gracia LUCAS, Dr. Hansen Attending Provider Halko, Eugenio Primary Care Unavailable Dean Del Cid Referring Unavailable Dean Del Cid Attending Unavailable Halko, Eugenio Primary Care Unavailable Jacob Dominguez Attending Unavailable Jacob Dominguez Referring Unavailable Ken Mari Attending Unavailable Halko, Eugenio Primary Care Unavailable Halko, Eugenio Primary Care Unavailable Aiyana Campbell Attending Unavailable Aiyana Campbell Referring Unavailable Halko, Eugenio Primary Care Unavailable Jacob Dominguez Attending Unavailable Halko, Eugenio Referring Unavailable AdrianAiyana salazar Attending Unavailable Halko, Eugenio Referring Unavailable Halko, Eugenio Primary Care Unavailable Tyrone Fagan Attending Unavailable Halko, Eugenio Primary Care Unavailable Halko, Eugenio Primary Care Unavailable AdrianAiyana salazar Attending Unavailable Halko, Eugenio Referring Unavailable Halko, Eugenio Primary Care Unavailable Jacob Dominguez Attending Unavailable Halko, Eugenio Referring Unavailable Tyrone Fagan Attending Unavailable Halko, Eugenio Primary Care Unavailable Barrett Leonard Attending Unavailable Halko, Eugenio Primary Care Unavailable Ungur, Remus Attending Unavailable Halko, Eugenio Primary Care Unavailable Strickland Dennis Attending Unavailable Strickland, Dennis Referring Unavailable Halko, Eugenio Primary Care Unavailable Ungur, Remus Attending Unavailable Halko, Eugenio Primary Care Unavailable HALKO DO, EUGENIO Attending Unavailable HALKO DO, EUGENIO Primary Care Unavailable HALKO DO, EUGENIO Primary Care Unavailable HALKO DO, EUGENIO Attending Unavailable HALKO DO, EUGENIO Primary Care Unavailable HALKO DO, EUGENIO Attending Unavailable HALKO DO, EUGENIO Primary Care Unavailable HALKO DO, EUGENIO Attending Unavailable HALKO DO, EUGENIO Primary Care Unavailable HALKO DO, EUGENIO Attending Unavailable HALKO DO, EUGENIO Attending Unavailable HALKO DO, EUGENIO Primary Care Unavailable HALKO DO, EUGENIO Attending Unavailable HALKO DO, EUGENIO Primary Care Unavailable HALKO DO, EUGENIO Attending Unavailable HALKO DO, EUGENIO Primary Care Unavailable Allergies Allergy Classification Reported Allergen(s) Allergy Type Date of Onset Reaction(s) Facility Acetaminophen / HYDROcodone (1 source) Acetaminophen / HYDROcodone; Translations: [Vicodin TABS] Drug Allergy [facility] Work Phone: Adhesive Tape (1 source) Adhesive Tape Substance Allergy [facility] Work Phone: NSAIDs (1 source) Naproxen; Translations: [Naprosyn] Drug Allergy [facility] Work Phone: Opioid Agonists (2 sources) traMADol; Translations: [Ultram] Drug Allergy [facility] Work Phone: (17 sources) acetaminophen / HYDROcodone; Translations: [HYDROCODONE-ACET AMINOPHEN] Drug Allergy 7 Rash [facility] Repository (20 sources) naproxen; Translations: [NAPROXEN] Drug Allergy 7 [facility] Repository (15 sources) traMADol; Translations: [TRAMADOL HCL] Drug Allergy 5 GI Upset [facility] Repository (20 sources) Acetaminophen / HYDROcodone; Translations: [acetaminophen-hy drocodone] Drug Allergy [facility] (20 sources) Codeine; Translations: [codeine] Drug Allergy 2 Nausea [facility] (20 sources) traMADol; Translations: [tramadol] Drug Allergy 1 Upset Stomach [facility] (20 sources) Tape, plastic Allergy to substance Eruption (morphologic abnormality) [facility] (14 sources) predniSONE; Translations: [prednisone] Drug Allergy 2 Weal (disorder) [facility] (8 sources) Acetaminophen Drug Allergy 8 Itching [facility] (20 sources) HYDROcodone Drug Allergy 1 Upset Stomach [facility] (20 sources) Ibuprofen; Translations: [ibuprofen] Drug Allergy 2 Stomach ache (finding) [facility] Work Phone: (4 sources) gabapentin; Translations: [gabapentin] Drug Allergy 2 Drowsy (finding), Other (See Comments) [facility] (17 sources) Lidocaine; Translations: [lidocaine topical] Drug Allergy 2 Eruption of skin (disorder), Rash [facility] (11 sources) methylPREDNISolon e; Translations: [methylprednisolo ne] Drug Allergy rash, upset stomach [facility] (20 sources) nabumetone; Translations: [nabumetone] Drug Allergy Dyspnea (finding) [facility] (2 sources) Acetaminophen / HYDROcodone Drug Allergy [facility] Repository (2 sources) HYDROcodone Drug Allergy [facility] Repository (2 sources) Ibuprofen Drug Allergy [facility] Repository (4 sources) traMADol Drug Allergy [facility] Repository (17 sources) Ketorolac Drug Allergy 2 [facility] (12 sources) cyclobenzaprine; Translations: [cyclobenzaprine] Drug Allergy itching, rash [facility] (13 sources) Adhesive Tape; Translations: [adhesive tape] Propensity to adverse reactions 2 [facility] (8 sources) Buprenorphine; Translations: [buprenorphine] Drug Allergy Nausea (finding) [facility] (1 source) oxyCODONE; Translations: [oxycodone] Drug Allergy Itching (finding) [facility] (8 sources) tamsulosin; Translations: [tamsulosin] Drug Allergy Itching (finding) [facility] (7 sources) Docusate; Translations: [docusate] Drug Allergy Itching (finding) [facility] (11 sources) Adhesive Tape-Silicones; Translations: [ADHESIVE TAPE-SILICONES] Drug Allergy 3 Itching [facility] (5 sources) meloxicam Drug Allergy 5 Muscle weakness [facility] (2 sources) Adhesive agent; Translations: [ADHESIVE] Propensity to adverse reactions to drug 5 [facility] (1 source) HYDROcodone Drug Allergy 5 [facility] Repository (1 source) Ibuprofen Drug Allergy 5 [facility] Repository (1 source) Ketorolac Drug Allergy 5 [facility] Repository (1 source) meloxicam Drug Allergy 5 [facility] (1 source) traMADol Drug Allergy 5 [facility] Repository Medications Current Medications Medication Drug Class(es) Dates Sig (Normalized) Sig (Original) acetaminophen 500 mg oral tablet (12 sources) Start: 12-03-2024 End: 06-01-2025 acetaminophen 500 mg oral tablet Dose : 500 mg = 1 tab(s), Oral, q8h, X 90 day(s), # 270 tab(s), 1 Refill(s), 06/01/25 11:17:00 AM EDT, Pharmacy: [facility], 180, cm, 12/03/24 10:42:00 EST, Height, kg, 12/03/24 10:42:00 EST, Dosing Weight Start Date: 12/03/24 Stop Date: 06/01/25 Status: Ordered Quantity: 270.0 Unit: tab(s) Repeat number: 2 Start: 10-09-2023 Acetaminophen Active MG October 09, 2023 1:00am Start: 08-07-2023 acetaminophen (TYLENOL) 500 mg tablet TAKE 2 TAB(S) EVERY 8 HOURS FOR 30 DAY(S) 0 08/07/2023 Active Start: 06-27-2023 End: 11-13-2024 Acetaminophen 500 mg tablet Discontinued mg October 09, 2023 1:00am November 13, 2024 3:12pm Comment on above: TAKE 2 TAB(S) EVERY 8 HOURS FOR 30 DAY(S) acetaminophen 325 mg / HYDROcodone bitartrate 5 mg oral tablet (2 sources) Opioid Agonist Start: 04-24-2022 take 1 tablet by mouth every six hours as needed Hydrocodone-Acetamin ophen Active 1 TABLET PO EVERY 6 HOURS NEEDED 10 April 24, 2022 acetaminophen 325 mg / oxyCODONE hydrochloride 7.5 mg oral tablet (20 sources) Opioid Agonist Start: 04-02-2025 End: 05-02-2025 take 1 tablet by mouth every six hours acetaminophen-oxycod one 325 mg-7.5 mg oral tablet Dose = 1 tab(s), Oral, q6hr, fill on or after 04/16/2025 increased dose due to rotator cuff tear, X 30 day(s), # 120 tab(s), 0 Refill(s), Pharmacy: [id number], Rotator cuff tear, 177, cm, 04/02/25 15:00:00 EDT, Height, 67.5, kg, 04/02/25 15:00:00 EDT, Dosing Weight Start Date: 04/02/25 Stop Date: 05/02/25 Status: Ordered Quantity: 120.0 Unit: tab(s) Repeat number: 1 Indications: Unspecified rotator cuff tear or rupture of unspecified shoulder, not specified as traumatic; Start: 02-23-2025 End: 02-26-2025 take 1 tablet by mouth every six hours as needed for pain oxyCODONE-acetaminophen (PERCOCET) 5-325 mg tablet Indications: Pain of right lower extremity , Acute right-sided low back pain with right-sided sciatica Take 1 tablet by mouth every 6 hours as needed for Pain 12 tablet 02/23/2025 02/26/2025 Active Start: 02-23-2025 End: 02-23-2025 1 tablet, Oral, ONCE, 1 dose , On Sun02/23/25 at 0545 Start: 09-11-2024 End: 10-11-2024 take 1 tablet by mouth every six hours as needed for pain Percocet 5 mg-325 mg oral tablet Dose = 1 tab(s), Oral, q6h, PRN Pain, fill on or after 09/13/2024, X 30 day(s), # 120 tab(s), 0 Refill(s), Pharmacy: [facility], Low back pain DDD (degenerative disc disease), lumbar, 180, cm, 09/11/24 9:44:00 EST, Height, 70.2, kg, 09/11/24 9:44:00 EST, Dosing Weight Start Date: 09/11/24 Stop Date: 10/11/24 Status: Ordered Start: 07-06-2024 End: 12-15-2024 take 1 tablet by mouth every eight hours as needed for pain Oxycodone-Acetaminophen (Percocet) 5-325 mg tablet Active 1 {tbl} PO Q8H as needed for pain 10 November 25, 2024 Start: 04-16-2022 End: 10-09-2023 Oxycodone-Acetaminophen (Per cocet) 5-325 mg tablet Discontinued 1 {tbl} PO EVERY 6 HOURS as needed for pain 10 April 16, 2022 October 09, 2023 2:17pm Start: 03-02-2022 End: 03-09-2022 take 1 tablet by mouth every six hours as needed for pain Percocet 5 mg-325 mg oral tablet Dose = 1 tab(s), Oral, q6hr, PRN for pain, to fill on of after 03/02/22, X 7 day(s), # 28 tab(s), 0 Refill(s), Pharmacy: [facility]/pharmacy #[id number], Back pain Lumbar radiculopathy, 178, cm, 02/20/22 15:58:00 EDT, Height, 71 Start Date: 03/02/22 Stop Date: 03/09/22 Status: Ordered Start: 02-27-2022 take 1 tablet by angel th every six hours as needed Oxycodone-Acetaminophen Active 1 TABLET PO EVERY 6 HOURS NEEDED 09 23February 27, 2022 7:52pm Start: 01-05-2022 End: 01-10-2022 take 1 tablet by mouth every six hours as needed for pain Percocet 5 mg-325 mg oral tablet Dose = 1 tab(s), Oral, q6h, PRN for pain, # 20 tab(s), 0 Refill(s), Pharmacy: [facility]/pharmacy #[id number], Lumbar radiculopathy DDD (degenerative disc disease), lumbar, 185, cm, 01/05/22 10:16:00 EDT, Height, 75.4, kg, 01/05/22 10:16:00 EDT, Dosing Weight Start Date: 01/05/22 Stop Date: 01/10/22 Status: Ordered Start: 12-07-2021 End: 12-12-2021 take 1 tablet by mouth every six hours as needed for pain Percocet 5 mg-325 mg oral tablet Dose = 1 tab(s), Oral, q6h, PRN for pain, # 20 tab(s), 0 Refill(s), Pharmacy: [facility]/pharmacy #[id number], Right shoulder pain, 185, cm, 12/07/21 9:52:00 EST, Height, 73.7, kg, 12/07/21 9:52:00 EST, Dosing Weight Start Date: 12/07/21 Stop Date: 12/12/21 Status: Ordered Start: 09-10-2021 End: 09-12-2021 take 1 tablet by mouth every six hours as needed for pain Percocet 5 mg-325 mg oral tablet Dose = 1 tab(s), Oral, q6h, PRN for pain, # 8 tab(s), 0 Refill(s), Back pain, 79.5 Start Date: 09/10/21 Stop Date: 09/12/21 Status: Ordered Start: 06-19-2021 End: 06-21-2021 take 1 tablet by mouth every six hours as needed for pain Percocet 5 mg-325 mg oral tablet Dose = 1 tab(s), Oral, q6h, PRN for pain, # 7 tab(s), 0 Refill(s), Sprain of shoulder, 71.4 Start Date: 06/19/21 Stop Date: 06/21/21 Status: Ordered Start: 02-10-2019 End: 02-15-2019 Oxycodone-Acetaminophen 1 TA BLET tablet Discontinued 1 {tbl} PO EVERY 6 HOURS NEEDED as needed for Pain 10 03February 10, 2019 12:00am February 14, 2019 12:00am February 15, 2019 12:09am Start: 02-10-2019 End: 02-15-2019 take 1 tablet by mouth every six hours as needed Oxycodone-Acetaminophen Discontinued 1 TABLET PO EVERY 6 HOURS NEEDED 10 03February 10, 2019 12:00am February 15, 2019 12:09am Start: 12-31-2018 End: 01-03-2019 Oxycodone-Acetaminophen 1 TA BLET tablet Discontinued 1 {tbl} PO EVERY 6 HOURS NEEDED as needed for Pain 12 December 31, 2018 12:00am January 02, 2019 12:00am January 03, 2019 12:13am Start: 12-31-2018 End: 01-03-2019 take 1 tablet by mouth every six hours as needed Oxycodone-Acetaminophen Discontinued 1 TABLET PO EVERY 6 HOURS NEEDED 12 December 31, 2018 12:00am January 03, 2019 12:13am Start: 11-26-2018 End: 03-09-2022 oxyCODONE-acetaminophen (PER COCET) 5-325 MG per tablet Take by mouth. 0 11/26/2018 03/09/2022 Active Start: 11-26-2018 End: 11-29-2018 Oxycodone-Acetaminophen 1 TA BLET tablet Discontinued 1 {tbl} PO EVERY 6 HOURS NEEDED as needed for Pain 8 November 26, 2018 1:00am November 28, 2018 1:00am November 29, 2018 1:17am Start: 11-26-2018 End: 11-29-2018 take 1 tablet by mouth every six hours as needed Oxycodone-Acetaminophen Discontinued 1 TABLET PO EVERY 6 HOURS NEEDED 8 November 26, 2018 1:00am November 29, 2018 1:17am Percocet 5-325 M G Oral Tablet Quantity: 0 Refills: 0 Ordered: 12-Jan-2021 DO Active albuterol MDI (90 mcg/inh) CFC free inhalation aerosol (11 sources) Start: 03-26-2025 End: 09-22-2025 take 2 puff(s) by inhalation every four hours albuterol MDI (90 mcg/inh) CFC free inhalation aerosol 2 puff(s), Inhalation, q4h, ok to fill generic equivalent rescue inhaler, # 1 EA, 5 Refill(s), Pharmacy: [id number], Chronic obstructive pulmonary disease, 177, cm, 03/26/25 9:32:00 EDT, Height, kg, 03/26/25 9:32:00 EDT, Dosing Weight Start Date: 03/26/25 Stop Date: 09/22/25 Status: Ordered Quantity: 1.0 Unit: EA Repeat number: 6 Indications: Chronic obstructive pulmonary disease, unspecified; Start: 06-18-2024 End: 12-15-2024 take 2 puff(s) by inhalation every four hours albuterol MDI (90 mcg/inh) CFC free inhalation aerosol 2 puff(s), Inhalation, q4h, ok to fill generic equivalent rescue inhaler, # 1 EA, 5 Refill(s), Pharmacy: [facility], 180, cm, 04/16/24 13:44:00 EDT, Height, kg, 04/16/24 13:42:00 EDT, Dosing Weight Start Date: 06/18/24 Stop Date: 12/15/24 Status: Ordered Start: 11-19-2023 End: 05-17-2024 take 2 puff(s) by inhalation every four hours albuterol MDI (90 mcg/inh) CFC free inhalation aerosol 2 puff(s), Inhalation, q4h, ok to fill generic equivalent rescue inhaler, # 1 EA, 5 Refill(s), [facility]: [id number], 180, cm, 11/19/23 13:28:00 EST, Height, kg, 11/19/23 13:28:00 EST, Dosing Weight Start Date: 11/19/23 Stop Date: 05/17/24 Status: Ordered Start: 07-03-2023 End: 12-30-2023 take 2 puff(s) by inhalation every four hours albuterol MDI (90 mcg/inh) CFC free inhalation aerosol 2 puff(s), Inhalation, q4h, ok to fill generic equivalent rescue inhaler, # 1 EA, 5 Refill(s), Pharmacy: [facility]/pharmacy #[id number], 178, cm, 06/27/23 10:23:00 EDT, Height, kg, 06/27/23 10:23:00 EDT, Dosing Weight Start Date: 07/03/23 Stop Date: 12/30/23 Status: Ordered Start: 11-23-2022 End: 05-22-2023 take 2 puff(s) by inhalation every four hours albuterol MDI (90 mcg/inh) CFC free inhalation aerosol 2 puff(s), Inhalation, q4h, ok to fill generic equivalent rescue inhaler, # 1 EA, 5 Refill(s), Pharmacy: [facility]/pharmacy #[id number], 178, cm, 11/16/22 15:20:00 EST, Height, kg, 11/23/22 13:45:00 EST, Dosing Weight Start Date: 11/23/22 Stop Date: 05/22/23 Status: Ordered Start: 09-22-2022 End: 03-21-2023 take 2 puff(s) by inhalation every four hours albuterol MDI (90 mcg/inh) CFC free inhalation aerosol 2 puff(s), Inhalation, q4h, ok to fill generic equivalent rescue inhaler, # 1 EA, 5 Refill(s), Pharmacy: [facility]/pharmacy #[id number], 178, cm, 09/22/22 13:53:00 EST, Height, kg, 09/22/22 13:53:00 EST, Dosing Weight Start Date: 09/22/22 Stop Date: 03/21/23 Status: Ordered Start: 07-27-2022 End: 01-23-2023 take 2 puff(s) by inhalation every four hours albuterol MDI (90 mcg/inh) CFC free inhalation aerosol 2 puff(s), Inhalation, q4h, ok to fill generic equivalent rescue inhaler, # 1 EA, 5 Refill(s), Pharmacy: [facility]/pharmacy #[id number], 178, cm, 07/27/22 13:49:00 EDT, Height, kg, 07/27/22 13:49:00 EDT, Dosing Weight Start Date: 07/27/22 Stop Date: 01/23/23 Status: Ordered Start: 06-28-2022 End: 07-28-2022 take 2 puff(s) by inhalation every four hours albuterol MDI (90 mcg/inh) CFC free inhalation aerosol 2 puff(s), Inhalation, q4h, ok to fill generic equivalent rescue inhaler, # 1 EA, 0 Refill(s), Pharmacy: [facility]/pharmacy #[id number], 178, cm, 05/29/22 11:16:00 EDT, Height Start Date: 06/28/22 Stop Date: 07/28/22 Status: Ordered atorvastatin 40 mg oral tablet (20 sources) HMG-CoA Reductase Inhibitor Start: 01-13-2023 atorvastatin 40 mg oral tablet Dose : 40 mg = 1 tab(s), Oral, qHS, # 90 tab(s), 1 Refill(s), Pharmacy: [id number], 177, cm, 03/02/25 16:22:00 EDT, Height, kg, 03/02/25 16:22:00 EDT, Dosing Weight Start Date: 03/02/25 Status: Ordered Quantity: 90.0 Unit: tab(s) Repeat number: 2 Start: 01-28-2019 take 1 tablet by angel th once daily at bedtime atorvastatin (LIPITOR) 10 mg tablet Take 1 tablet by mouth once daily. BEFORE BEDTIME 30 tablet 5 01/28/2019 Active Comment on above: Take 1 tablet by angel th once daily. BEFORE BEDTIME Take 40 mg by mouth daily at bedtime. baclofen 20 mg oral tablet (3 sources) gamma-Aminobutyric Acid-ergic Agonist Start: 02-26-2022 End: 03-03-2022 baclofen 20 mg oral tablet Dose : 20 mg = 1 tab(s), Oral, TID, # 15 tab(s), 0 Refill(s) Start Date: 02/26/22 Stop Date: 03/03/22 Status: Ordered clopidogrel 75 mg oral tablet (15 sources) [id number] Platelet Inhibitor Start: 10-09-2023 End: 11-13-2024 clopidogrel 75 mg oral tablet Dose : 75 mg = 1 tab(s), Oral, qDay, # 90 tab(s), 1 Refill(s), Pharmacy: [facility], 180, cm, 10/02/24 9:56:00 EST, Height, kg, 10/02/24 9:56:00 EST, Dosing Weight Start Date: 10/02/24 Status: Ordered Quantity: 90.0 Unit: tab(s) Repeat number: 2 Start: 10-09-2023 Clopidogrel Ac tive MG October 09, 2023 1:00am cyclobenzaprine hydrochloride 5 mg oral tablet (20 sources) Muscle Relaxant Start: 11-05-2024 take 1 tablet by mouth three times daily as needed for muscle spasms Cyclobenzaprine 5 mg tablet Active 5 mg PO THREE TIMES A DAY as needed for muscle spasm 09 24November 05, 2024 1:00am Start: 08-09-2023 End: 03-10-2025 take 1 tablet by mouth three times daily as needed for muscle spasms Cyclobenzaprine 10 mg tablet Discontinued 10 mg PO THREE TIMES A DAY as needed for Muscle Spasm July 06, 2024 12:00am November 13, 2024 3:11pm Start: 03-02-2022 End: 05-01-2022 take 10 mg by mouth twice daily Cyclobenzaprine Active 10 MG PO TWICE A DAY April 02, 2022 12:00am Start: 09-18-2021 take 1 tablet by angel th three times daily as needed for pain Flexeril use cyclobenzaprine Dose : 10 mg =, Oral, TID, PRN Pain, # 15 tab(s), 0 Refill(s), Strain of muscle of upper arm Start Date: 09/18/21 Status: Ordered Start: 08-28-2021 End: 09-04-2021 cyclobenzaprine 10 mg oral t ablet Dose : 10 mg = 1 tab(s), Oral, TID, PRN As needed for muscle pain and spasm, X 7 day(s), # 21 tab(s), 0 Refill(s), 09/04/21 11:49:00 EST Start Date: 08/28/21 Stop Date: 09/04/21 Status: Ordered Start: 04-04-2020 take 1 tablet by angel every eight hours as needed cyclobenzaprine (FLEXERIL) 10 mg tablet Take 1 tablet by mouth every 8 hours as needed for Muscle Spasm (or pain). 14 tablet 0 04/04/2020 Active Comment on above: Take 1 tablet by angel every 8 hours as needed for Muscle Spasm (or pain). diazePAM 5 mg oral tablet (5 sources) Benzodiazepine Start: 01-01-2025 diazePAM 5 mg oral tablet 0 Refill(s), 72.2 Start Date: 01/02/25 Status: Ordered Repeat number: 1 dilTIAZem hydrochloride 120 mg oral tablet (12 sources) Calcium Channel Beba Start: 01-02-2025 dilTIAZem 120 mg oral tablet 0 Refill(s) Start Date: 01/02/25 Status: Ordered Repeat number: 1 Start: 12-22-2024 End: 03-22-2025 Diltiazem Diltiazem, 1 appli cation, Topical, 4x/Day, 2% strength base cream, PRN anal fissue, # 45 gram(s), 2 Refill(s), Pharmacy: [facility], 180, cm, 12/22/24 13:50:00 EST, Height, 72.2, kg, 12/22/24 13:50:00 EST, Dosing Weight Start Date: 12/22/24 Stop Date: 03/22/25 Status: Ordered Quantity: 45.0 Unit: g Repeat number: 3 Start: 04-16-2024 End: 07-15-2024 Diltiazem Diltiazem, 1 appli cation, Topical, 4x/Day, 2% strength, PRN anal fissue, # 45 gram(s), 2 Refill(s), [facility] [place] [id number], 180, cm, 04/16/24 13:44:00 EDT, Height, 69.4, kg, 04/16/24 13:42:00 EDT, Dosing Weight Start Date: 04/16/24 Stop Date: 07/15/24 Status: Ordered Start: 04-26-2023 End: 07-25-2023 Diltiazem Diltiazem, 1 appli cation, Topical, 4x/Day, 2% strength, PRN anal fissue, # 45 gram(s), 2 Refill(s), Pharmacy: [facility]/pharmacy #[id number], 178, cm, 04/25/23 13:12:00 EDT, Height, 65.7, kg, 04/25/23 13:12:00 EDT, Dosing Weight Start Date: 04/26/23 Stop Date: 07/25/23 Status: Ordered Start: 05-29-2022 diltiazem topi darshana diltiazem topical, 0 Refill(s), 71 Start Date: 05/29/22 Status: Ordered DME MISCellaneous (20 sources) Start: 11-28-2024 DME MISCellane ous See Instructions, dx: Z91.148, dispense 1 daily pill case that fits in pocket-to help prevent loss of pills, # 1 EA, 0 Refill(s), Pharmacy: [facility], Prescription lost, 180, cm, 11/28/24 13:10:00 EST, Height, 71.6, kg, 11/28/24 13:10:00 EST, Dosing Weight Start Date: 11/28/24 Status: Ordered Quantity: 1.0 Unit: EA Repeat number: 1 Indications: Patient's other noncompliance with medication regimen for other reason; Start: 11-19-2023 DME MISCellane ous See Instructions, M51.36 dx dispesne one TENS unit, use daily., # 1 EA, 0 Refill(s), 70.9 Start Date: 11/19/23 Status: Ordered Quantity: 1.0 Unit: EA Repeat number: 1 Start: 11-19-2023 DME MISCellane ous See Instructions, M51.36 dx dispesne one TENS unit, use daily., # 1 EA, 0 Refill(s), 70.9 Start Date: 11/19/23 Status: Ordered Start: 01-05-2022 DME MISCellane ous See Instructions, dispense one quad cane; R29.898 and R26.81, # 1 EA, 0 Refill(s), Left leg weakness Unsteady gait, 75.4 Start Date: 01/05/22 Status: Ordered Quantity: 1.0 Unit: EA Repeat number: 1 Indications: Unsteadiness on feet; Other symptoms and signs involving the musculoskeletal system; Start: 01-05-2022 DME MISCellane ous See Instructions, dispense one quad cane; R29.898 and R26.81, # 1 EA, 0 Refill(s), Left leg weakness Unsteady gait, 75.4 Start Date: 01/05/22 Status: Ordered DULoxetine 30 mg delayed release oral capsule (20 sources) Serotonin and Norepinephrine Reuptake Inhibitor Start: 03-02-2025 DULoxetine 30 mg ora l delayed release capsule See Instructions, lost pills, needs early fill 2 cap(s) Oral am and 1 cap pm 90 day(s), # 135 cap(s), 1 Refill(s), Pharmacy: [facility] #[id number], 177, cm, 03/02/25 16:22:00 EDT, Height, kg, 03/02/25 16:22:00 EDT, Dosing Weight Start Date: 03/02/25 Status: Ordered Quantity: 135.0 Unit: cap(s) Repeat number: 2 Start: 11-13-2024 Duloxetine 30 mg capsule,delayed release(DR/EC) Active 0 PO daily November 13, 2024 3:10pm orally daily; Start: 11-19-2023 take 2 capsules by m outh in the morning, then take 1 capsule by mouth in the evening DULoxetine 30 mg oral delayed release capsule See Instructions, 2 cap(s) Oral am and 1 cap pm 90 day(s), # 135 cap(s), 1 Refill(s), [facility]acy: [id number], 180, cm, 11/19/23 13:28:00 EST, Height, kg, 11/19/23 13:28:00 EST, Dosing Weight Start Date: 11/19/23 Status: Ordered Start: 10-09-2023 Duloxetine Act pamela MG PO October 09, 2023 1:00am Start: 10-26-2022 take 2 capsules by m outh in the morning, then take 1 capsule by mouth in the evening DULoxetine 30 mg oral delayed release capsule See Instructions, 2 cap in am, 1 cap in evening, # 90 cap(s), 1 Refill(s), Pharmacy: [facility]/pharmacy #[id number], 178, cm, 10/26/22 13:53:00 EST, Height, kg, 10/26/22 13:53:00 EST, Dosing Weight Start Date: 10/26/22 Status: Ordered Start: 05-29-2022 End: 11-13-2024 Duloxetine 30 mg capsule,del ayed release(DR/EC) Discontinued mg PO October 09, 2023 1:00am November 13, 2024 3:14pm Start: 02-20-2022 End: 08-19-2022 DULoxetine 20 mg oral delaye d release capsule Dose : 20 mg = 1 cap(s), Oral, BID, # 180 cap(s), 1 Refill(s), Pharmacy: [facility]/pharmacy #[id number], 178, cm, 02/20/22 15:58:00 EDT, Height, kg, 02/20/22 15:58:00 EDT, Dosing Weight Start Date: 02/20/22 Stop Date: 08/19/22 Status: Ordered Start: 01-05-2022 DULoxetine 20 mg oral delayed release capsule Dose : 20 mg = 1 cap(s), Oral, BID, # 60 cap(s), 1 Refill(s), Pharmacy: [facility]/pharmacy #[id number], 185, cm, 01/05/22 10:16:00 EDT, Height, kg, 01/05/22 10:16:00 EDT, Dosing Weight Start Date: 01/05/22 Status: Ordered Comment on above: TAKE 1 CAPSULE BY MO UT TWICE A DAY FOR 90 DAYS - DOSE INCREASE - DO NOT CRUSH OR CHEW Epson salts (11 sources) Start: 04-16-2024 Epson salts Ep son salts, See Instructions, 1 EA = one box/contianer of epson salts; soak in sitz bath up to 4x/day, # 1 EA, 5 Refill(s), Pharmacy: [facility] #[id number], 180, cm, 04/16/24 13:44:00 EDT, Height, 69.4, kg, 04/16/24 13:42:00 EDT, Dosing Weight Start Date: 04/16/24 Status: Ordered Quantity: 1.0 Unit: EA Repeat number: 6 Start: 04-16-2024 Epson salts Ep son salts, See Instructions, 1 EA = one box/contianer of epson salts; soak in sitz bath up to 4x/day, # 1 EA, 5 Refill(s), Pharmacy: [facility] #[id number], 180, cm, 04/16/24 13:44:00 EDT, Height, 69.4, kg, 04/16/24 13:42:00 EDT, Dosing Weight Start Date: 04/16/24 Status: Ordered Start: 04-28-2022 Epson salts Ep son salts, See Instructions, 1 EA = one box/contianer of epson salts; soak in sitz bath up to 4x/day, # 1 EA, 0 Refill(s), Pharmacy: [facility]/pharmacy #[id number], 178, cm, 04/28/22 13:02:00 EDT, Height, 73.4 Start Date: 04/28/22 Status: Ordered escitalopram 10 mg oral tablet (1 source) Serotonin Reuptake Inhibitor Start: 12-07-2021 End: 02-05-2022 escitalopram 10 mg oral tablet Dose : 10 mg = 1 tab(s), Oral, qDay, start 0.5 tablet x7 days, then increase to full tablet, # 30 tab(s), 1 Refill(s), Pharmacy: [facility]/pharmacy #[id number], 185, cm, 12/07/21 9:52:00 EST, Height, kg, 12/07/21 9:52:00 EST, Dosing Weight Start Date: 12/07/21 Stop Date: 02/05/22 Status: Ordered etodolac 300 mg oral capsule (1 source) Nonsteroidal Anti-inflammatory Drug Start: 09-11-2024 End: 12-10-2024 etodolac 300 mg oral capsule Dose : 300 mg = 1 cap(s), Oral, TID, # 90 cap(s), 2 Refill(s), Pharmacy: [facility], 180, cm, 09/11/24 9:44:00 EST, Height, kg, 09/11/24 9:44:00 EST, Dosing Weight Start Date: 09/11/24 Stop Date: 12/10/24 Status: Ordered ferrous sulfate 325 mg oral tablet (14 sources) Start: 11-13-2024 End: 08-29-2025 ferrous sulfate 325 mg (65 mg elemental iron) oral tablet Dose : 325 mg = 1 tab(s), Oral, BID, # 180 tab(s), 1 Refill(s), Pharmacy: [facility] #[id number], 177, cm, 03/02/25 16:22:00 EDT, Height, kg, 03/02/25 16:22:00 EDT, Dosing Weight Start Date: 03/02/25 Stop Date: 08/29/25 Status: Ordered Quantity: 180.0 Unit: tab(s) Repeat number: 2 Start: 11-19-2023 End: 10-13-2024 ferrous sulfate 325 mg (65 m g elemental iron) oral tablet Dose : 325 mg = 1 tab(s), Oral, BID, # 180 tab(s), 1 Refill(s), [facility]acy: [facility] #[id number], 180, cm, 04/16/24 13:44:00 EDT, Height, kg, 04/16/24 13:42:00 EDT, Dosing Weight Start Date: 04/16/24 Stop Date: 10/13/24 Status: Ordered Start: 08-07-2023 take 1 tablet by angel th every twelve hours ferrous sulfate 325 mg (65 mg iron) tablet Take 1 tablet by mouth every 12 hours. 0 08/07/2023 Active Start: 11-01-2022 End: 09-26-2023 ferrous sulfate 325 mg (65 m g elemental iron) oral tablet Dose : 325 mg = 1 tab(s), Oral, BID, # 180 tab(s), 1 Refill(s), [id number], 178, cm, 03/28/23 13:16:00 EDT, Height, kg, 03/28/23 13:16:00 EDT, Dosing Weight Start Date: 03/30/23 Stop Date: 09/26/23 Status: Ordered Comment on above: Take 1 tablet by angel th every 12 hours. finasteride 5 mg oral tablet (1 source) 5-alpha Reductase Inhibitor Start: 04-02-2025 finasteride 5 mg oral tablet Dose : 5 mg = 1 tab(s), Oral, qDay, # 90 tab(s), 0 Refill(s), Pharmacy: [facility] #[id number], 177, cm, 04/02/25 15:00:00 EDT, Height, kg, 04/02/25 15:00:00 EDT, Dosing Weight Start Date: 04/02/25 Status: Ordered Quantity: 90.0 Unit: tab(s) Repeat number: 1 gabapentin 400 mg oral capsule (20 sources) Anti-epileptic Agent Start: 04-02-2025 End: 07-01-2025 gabapentin 400 mg oral capsule Dose : 400 mg = 1 cap(s), Oral, QID, fill on or after 04/02/2025, # 120 cap(s), 2 Refill(s), Pharmacy: [facility] #[id number], Sciatica, 177, cm, 04/02/25 15:00:00 EDT, Height, 67.5, kg, 04/02/25 15:00:00 EDT, Dosing Weight Start Date: 04/02/25 Stop Date: 07/01/25 Status: Ordered Quantity: 120.0 Unit: cap(s) Repeat number: 3 Indications: Sciatica, unspecified side; Start: 07-27-2021 End: 11-13-2024 take 1 capsule by mouth four times daily Gabapentin 300 mg capsule Active 300 mg PO 4 TIMES DAILY April 02, 2022 12:00am Gabapentin 300 M G Oral Capsule Quantity: 0 Refills: 0 Ordered: 12-Jan-2021 DO Active Comment on above: Take 1 capsule by mo [facility] four times daily for 30 days. Hydrocortisone (20 sources) Corticosteroid Start: 04-02-2025 End: 05-02-2025 hydrocortisone 1% topical cream Apply 1 jose d, Topical, BID, # 15 gram(s), 2 Refill(s), Pharmacy: [facility] #[id number], Cream, 177, cm, 04/02/25 15:00:00 EDT, Height, 67.5, kg, 04/02/25 15:00:00 EDT, Dosing Weight Start Date: 04/02/25 Stop Date: 05/02/25 Status: Ordered Quantity: 15.0 Unit: g Repeat number: 3 Start: 04-16-2024 End: 05-16-2024 hydrocortisone 1% topical cr eam Apply 1 jose d, Topical, BID, # 15 gram(s), 2 Refill(s), Pharmacy: [facility] #[id number], Cream, 180, cm, 04/16/24 13:44:00 EDT, Height, 69.4, kg, 04/16/24 13:42:00 EDT, Dosing Weight Start Date: 04/16/24 Stop Date: 05/16/24 Status: Ordered Start: 11-19-2023 End: 12-19-2023 hydrocortisone 1% topical cr eam Apply 1 jose d, Topical, BID, # 15 gram(s), 2 Refill(s), Pharmacy: [facility] #[id number], Cream, 180, cm, 11/19/23 13:28:00 EST, Height, 70.9, kg, 11/19/23 13:28:00 EST, Dosing Weight Start Date: 11/19/23 Stop Date: 12/19/23 Status: Ordered Start: 06-27-2023 End: 07-27-2023 hydrocortisone 1% topical cr eam Apply 1 jose d, Topical, BID, # 15 gram(s), 2 Refill(s), Pharmacy: [facility]/pharmacy #[id number], Cream, 178, cm, 06/27/23 10:23:00 EDT, Height, 64.7, kg, 06/27/23 10:23:00 EDT, Dosing Weight Start Date: 06/27/23 Stop Date: 07/27/23 Status: Ordered Start: 04-27-2022 Hydrocortisone Acetate (Anusol-Hc) 25 mg suppository Active 25 mg RC AT BEDTIME April 27, 2022 12:00am Start: 04-27-2022 Hydrocortisone Acetate (Anusol-Hc) 25 mg suppository Active 25 MG RC AT BEDTIME April 27, 2022 12:00am Comment on above: Hydrocortisone Aceta te (Anusol-Hc) 25 mg suppository Active 25 MG RC AT BEDTIME April 26, 2022 11:00pm ibuprofen 400 mg oral tablet (10 sources) Nonsteroidal Anti-inflammatory Drug Start: 2 End: 2 take 1 tablet by mouth every eight hours as needed for pain ibuprofen (ADVIL;MOTRIN) 400 MG tablet Take 1 tablet by mouth every 8 hours as needed for Pain 6 tablet 0 03/08/2022 03/10/2022 Active Start: 02-04-2021 ibuprofen 200 mg oral tablet Dose : 400 mg = 2 tab(s), Oral, q6hr, PRN pain or fever, 0 Refill(s) Start Date: 02/04/21 Status: Ordered Start: 06-26-2020 End: 03-08-2022 take 1 tablet by mouth every six hours as needed for pain ibuprofen (IBU) 600 MG tablet Take 1 tablet by mouth every 6 hours as needed for Pain 30 tablet 0 06/26/2020 03/08/2022 Discontinued Start: 05-29-2017 End: 03-08-2022 take 1 tablet by mouth every six hours as needed for pain ibuprofen (ADVIL;MOTRIN) 400 MG tablet Take 1 tablet by mouth every 6 hours as needed for Pain (take with food) 15 tablet 0 05/29/2017 03/08/2022 Discontinued methylPREDNISolone Dosepak 4 mg tablet (3 sources) Start: 09-18-2021 methylPREDNISolone Dosepak 4 mg tablet 0 Refill(s) Start Date: 09/18/21 Status: Ordered nabumetone 500 mg oral tablet (2 sources) Nonsteroidal Anti-inflammatory Drug Start: 03-01-2022 End: 03-11-2022 nabumetone (RELAFEN) 500 MG tablet Take 500 mg by mouth 0 03/01/2022 03/11/2022 Active naproxen 500 mg oral tablet (6 sources) Nonsteroidal Anti-inflammatory Drug Start: 04-02-2022 take 500 mg by mouth twice daily Naproxen Active 500 MG PO TWICE A DAY April 02, 2022 12:00am Start: 03-24-2022 take 500 mg by mouth twice [place] Naproxen Active 500 MG PO TWICE A DAY March 24, 2022 12:11am 60 actuat olodaterol 0.0025 mg/actuat / tiotropium 0.0025 mg/actuat inhalation spray (10 sources) Anticholinergic, beta2-Adrenergic Agonist Start: 03-26-2025 End: 09-22-2025 take 1 dose by inhalation once daily Stiolto Respimat 60 ACT 2.5 mcg-2.5 mcg/inh inhalation aerosol Dose = 2 puff(s), Inhalation, qDay, # 3 EA, 1 Refill(s), Pharmacy: [facility] #[id number], Chronic obstructive pulmonary disease, 177, cm, 03/26/25 9:32:00 EDT, Height, kg, 03/26/25 9:32:00 EDT, Dosing Weight Start Date: 03/26/25 Stop Date: 09/22/25 Status: Ordered Quantity: 3.0 Unit: EA Repeat number: 2 Indications: Chronic obstructive pulmonary disease, unspecified; Start: 06-18-2024 End: 12-15-2024 take 1 dose by inhalation once daily Stiolto Respimat 60 ACT 2.5 mcg-2.5 mcg/inh inhalation aerosol Dose = 2 puff(s), Inhalation, qDay, # 3 EA, 1 Refill(s), Pharmacy: [facility], 180, cm, 04/16/24 13:44:00 EDT, Height, kg, 04/16/24 13:42:00 EDT, Dosing Weight Start Date: 06/18/24 Stop Date: 12/15/24 Status: Ordered Start: 07-04-2023 STIOLTO RESPIM AT 2.5-2.5 mcg/actuation INHALE 2 PUFFS DAILY 0 07/04/2023 Active Start: 07-03-2023 End: 05-17-2024 take 1 dose by inhalation once daily Stiolto Respimat 60 ACT 2.5 mcg-2.5 mcg/inh inhalation aerosol Dose = 2 puff(s), Inhalation, qDay, # 3 EA, 1 Refill(s), Pharmacy: [facility] #[id number], 180, cm, 11/19/23 13:28:00 EST, Height, kg, 11/19/23 13:28:00 EST, Dosing Weight Start Date: 11/19/23 Stop Date: 05/17/24 Status: Ordered Start: 10-26-2022 End: 04-24-2023 take 1 dose by inhalation once daily Stiolto Respimat 60 ACT 2.5 mcg-2.5 mcg/inh inhalation aerosol Dose = 2 puff(s), Inhalation, qDay, # 3 EA, 1 Refill(s), [id number], 178, cm, 10/26/22 13:53:00 EST, Height, kg, 10/26/22 13:53:00 EST, Dosing Weight Start Date: 10/26/22 Stop Date: 04/24/23 Status: Ordered Start: 09-22-2022 End: 10-22-2022 take 1 dose by inhalation once daily Stiolto Respimat 60 ACT 2.5 mcg-2.5 mcg/inh inhalation aerosol Dose = 2 puff(s), Inhalation, qDay, # 1 EA, 0 Refill(s), [id number], 178, cm, 09/22/22 13:53:00 EST, Height Start Date: 09/22/22 Stop Date: 10/22/22 Status: Ordered Comment on above: INHALE 2 PUFFS DAILY omeprazole 40 mg delayed release oral capsule (20 sources) Proton Pump Inhibitor Start: 11-19-2023 End: 05-17-2024 omeprazole 40 mg oral delayed release capsule Dose : 40 mg = 1 cap(s), Oral, qDay, # 90 cap(s), 1 Refill(s), Pharmacy: [facility] #[id number], 180, cm, 11/19/23 13:28:00 EST, Height, kg, 11/19/23 13:28:00 EST, Dosing Weight Start Date: 11/19/23 Stop Date: 05/17/24 Status: Ordered Start: 03-23-2022 End: 11-13-2024 take 2 capsules by mouth once daily Omeprazole 20 mg capsule,delayed release(DR/EC) Discontinued 40 mg PO DAILY March 23, 2022 12:00am November 13, 2024 3:12pm Start: 03-23-2022 take 40 mg by mouth once daily Omeprazole Active 40 MG PO DAILY March 23, 2022 12:00am Start: 03-02-2022 End: 09-26-2023 take 1 capsule by mouth once daily omeprazole (PRILOSEC) 40 mg capsule Take 40 mg by mouth once daily. 0 07/27/2022 Active Start: 09-18-2021 omeprazole 20 mg oral delayed release capsule 0 Refill(s) Start Date: 09/18/21 Status: Ordered Start: 01-14-2021 take 1 capsule by mo uth once daily before breakfast Omeprazole 20 MG Oral Capsule Delayed Release TAKE 1 CAPSULE BY MOUTH EVERY DAY IN THE MORNING BEFORE BREAKFAST Quantity: 90 Refills: 1 Ordered: 15-Apr-2021 Connie East PA-C Start : 14-Jan-2021 Active Comment on above: Take 40 mg by mouth once daily. pantoprazole 40 mg delayed release oral tablet (7 sources) Proton Pump Inhibitor Start: 11-13-2024 pantoprazole 40 mg oral enteric coated tablet Dose : 40 mg = 1 tab(s), Oral, qDay, # 90 tab(s), 1 Refill(s), Pharmacy: [facility], 180, cm, 01/21/25 10:57:00 EDT, Height, kg, 01/21/25 10:57:00 EDT, Dosing Weight Start Date: 01/21/25 Status: Ordered Quantity: 90.0 Unit: tab(s) Repeat number: 2 Start: 08-15-2024 pantoprazole 4 0 mg oral enteric coated tablet Dose : 40 mg = 1 tab(s), Oral, qDay, stop omeprazole, # 90 tab(s), 1 Refill(s), Pharmacy: [facility], 180, cm, 08/15/24 14:58:00 EDT, Height, kg, 08/15/24 14:58:00 EDT, Dosing Weight Start Date: 08/15/24 Status: Ordered PEG-3350 with Electrolytes (Eqv-GoLYTELY) oral powder for reconstitution (3 sources) Start: 04-16-2024 PEG-3350 with Electrolytes (Eqv-GoLYTELY) oral powder for reconstitution See Instructions, Take as directed 1 day before colonoscopy. Follow instructions as provided by your GI provider at [facility]., # 1 EA, 0 Refill(s), Pharmacy: [facility] #[id number], 180, cm, 04/16/24 13:44:00 EDT, Height, kg, 04/16/24 13:42:00 EDT, Dosing Weight Start Date: 04/16/24 Status: Ordered Quantity: 1.0 Unit: EA Repeat number: 1 Start: 04-16-2024 PEG-3350 with Electrolytes (Eqv-GoLYTELY) oral powder for reconstitution See Instructions, Take as directed 1 day before colonoscopy. Follow instructions as provided by your GI provider at [facility]., # 1 EA, 0 Refill(s), Pharmacy: [facility] #[id number], 180, cm, 04/16/24 13:44:00 EDT, Height, kg, 04/16/24 13:42:00 EDT, Dosing Weight Start Date: 04/16/24 Status: Ordered Start: 08-15-2023 PEG-3350 with Electrolytes (Eqv-GoLYTELY) oral powder for reconstitution See Instructions, Take as directed 1 day before colonoscopy. Follow instructions as provided by your GI provider at [facility]., # 1 EA, 0 Refill(s), Pharmacy: [facility]/pharmacy #[id number], 178, cm, 08/15/23 11:10:00 EDT, Height, kg, 08/15/23 11:10:00 EDT, Dosing Weight Start Date: 08/15/23 Status: Ordered polyethylene glycol 3350 52778 mg powder for oral solution (20 sources) Osmotic Laxative Start: 06-28-2022 End: 12-25-2022 polyethylene glycol 3350 (MIRALAX, GLYCOLAX) 17 gram/dose powder 17 GRAMS BY MOUTH TWICE DAILY FOR 90 DAYS 0 08/23/2022 Active Start: 04-27-2022 End: 11-13-2024 Polyethylene Glycol 3350 (Cl earlax) 17 gram/dose powder Active 17 g PO DAILY 119 May 31, 2023 12:00am Comment on above: 17 GRAMS BY MOUTH TW ICE DAILY FOR 90 DAYS predniSONE 10 mg oral tablet (20 sources) Start: 11-29-2022 End: 12-18-2022 prednisone 10mg tab (TAPER) 21-19-10-20-10-5mg, Oral, qDay, [id number],[id number], [id number],8J8xyyw,0.5X4 days., # 47 tab(s), 0 Refill(s), Pharmacy: [facility]/pharmacy #[id number], 178, cm, 11/16/22 15:20:00 EST, Height Start Date: 11/29/22 Stop Date: 12/18/22 Status: Ordered Start: 04-02-2022 take 40 mg by mouth twice farhad y Prednisone Active 40 MG PO TWICE A DAY April 02, 2022 9:50pm taper Start: 03-22-2022 predniSONE 10 mg oral tablet See Instructions, oral, take 2 tabs daily for 10 days, then 1 tab daily for 5 days, then half tab for 5 days, then half tab every other day for 5 doses, then stop, # 30 tab(s), 0 Refill(s), Pharmacy: [facility]/pharmacy #[id number], 185.4, cm, 03/08/22 14:07:00 ED... Start Date: 03/22/22 Status: Ordered Start: 03-07-2022 predniSONE (DE LTASONE) 20 MG tablet Take by mouth 0 03/07/2022 Active Start: 03-07-2022 End: 04-02-2022 take 2 tablets by mouth once daily Prednisone 20 mg tablet Discontinued 40 mg PO DAILY March 07, 2022 12:00am April 02, 2022 9:50pm Start: 03-07-2022 End: 04-02-2022 take 40 mg by mouth once daily Prednisone Discontinued 40 MG PO DAILY March 07, 2022 12:00am April 02, 2022 9:50pm psyllium 3400 mg powder for oral suspension (11 sources) Start: 04-02-2025 take 3.4 doses by mouth three times daily as needed for constipation Metamucil 3.4 g/5.2 g oral powder for reconstitution Dose : 3.4 gram(s) =, Oral, TID, PRN as needed for constipation, # 425 gram(s), 1 Refill(s), Pharmacy: [facility] #[id number], 177, cm, 04/02/25 15:00:00 EDT, Height, kg, 04/02/25 15:00:00 EDT, Dosing Weight Start Date: 04/02/25 Status: Ordered Quantity: 425.0 Unit: g Repeat number: 2 Start: 04-16-2024 take 3.4 doses by mo uth three times daily as needed for constipation Metamucil 3.4 g/5.2 g oral powder for reconstitution Dose : 3.4 gram(s) =, Oral, TID, PRN as needed for constipation, # 425 gram(s), 1 Refill(s), Pharmacy: [facility] #[id number], 180, cm, 04/16/24 13:44:00 EDT, Height, kg, 04/16/24 13:42:00 EDT, Dosing Weight Start Date: 04/16/24 Status: Ordered Start: 11-19-2023 take 3.4 doses by mo uth three times daily as needed for constipation Metamucil 3.4 g/5.2 g oral powder for reconstitution Dose : 3.4 gram(s) =, Oral, TID, PRN as needed for constipation, # 425 gram(s), 1 Refill(s), Pharmacy: [facility] #[id number], 180, cm, 11/19/23 13:28:00 EST, Height, kg, 11/19/23 13:28:00 EST, Dosing Weight Start Date: 11/19/23 Status: Ordered Start: 06-27-2023 take 3.4 doses by mo uth three times daily as needed for constipation Metamucil 3.4 g/5.2 g oral powder for reconstitution Dose : 3.4 gram(s) =, Oral, TID, PRN as needed for constipation, # 425 gram(s), 1 Refill(s), Pharmacy: [facility]/pharmacy #[id number], 178, cm, 06/27/23 10:23:00 EDT, Height, kg, 06/27/23 10:23:00 EDT, Dosing Weight Start Date: 06/27/23 Status: Ordered Start: 05-25-2022 take 3.4 doses by mo uth three times daily as needed for constipation Metamucil 3.4 g/5.2 g oral powder for reconstitution Dose : 3.4 gram(s) =, Oral, TID, PRN as needed for constipation, # 425 gram(s), 1 Refill(s), Pharmacy: [facility]/pharmacy #[id number], 178, cm, 05/25/22 13:45:00 EDT, Height Start Date: 05/25/22 Status: Ordered Senna Leaves (2 sources) Start: 03-02-2025 Senna 8.6 mg o ral tablet Dose : 17.2 mg = 2 tab(s), Oral, qHS, PRN as needed for constipation, # 100 tab(s), 2 Refill(s), Pharmacy: [facility] #[id number], 177, cm, 03/02/25 16:22:00 EDT, Height, kg, 03/02/25 16:22:00 EDT, Dosing Weight Start Date: 03/02/25 Status: Ordered Quantity: 100.0 Unit: tab(s) Repeat number: 3 Start: 04-16-2024 Senna 8.6 mg o ral tablet Dose : 17.2 mg = 2 tab(s), Oral, qHS, PRN as needed for constipation, # 100 tab(s), 2 Refill(s), Pharmacy: [facility] #[id number], 180, cm, 04/16/24 13:44:00 EDT, Height, kg, 04/16/24 13:42:00 EDT, Dosing Weight Start Date: 04/16/24 Status: Ordered sennosides, mcc 8.6 mg oral tablet (4 sources) Start: 11-19-2023 senna (sennosi diony) 8.6 mg oral tablet Dose : 17.2 mg = 2 tab(s), Oral, qHS, PRN as needed for constipation, # 100 tab(s), 1 Refill(s), Pharmacy: [facility] #[id number], 180, cm, 11/19/23 13:28:00 EST, Height, kg, 11/19/23 13:28:00 EST, Dosing Weight Start Date: 11/19/23 Status: Ordered Start: 06-27-2023 senna (sennosi diony) 8.6 mg oral tablet Dose : 17.2 mg = 2 tab(s), Oral, qHS, PRN as needed for constipation, # 100 tab(s), 1 Refill(s), Pharmacy: [facility]/pharmacy #[id number], 178, cm, 06/27/23 10:23:00 EDT, Height, kg, 06/27/23 10:23:00 EDT, Dosing Weight Start Date: 06/27/23 Status: Ordered Start: 06-11-2023 take 2 tablets by mo uth once daily at bedtime as needed for constipation SENNA 8.6 mg tab TAKE 2 TAB(S) ORAL EVERY DAY AT BEDTIME NEEDED FOR CONSTIPATION 0 06/11/2023 Active Comment on above: TAKE 2 TAB(S) ORAL E VERY DAY AT BEDTIME NEEDED FOR CONSTIPATION sulfamethoxazole 800 mg / trimethoprim 160 mg oral tablet (1 source) Dihydrofolate Reductase Inhibitor Antibacterial, Sulfonamide Antimicrobial Start: 2 End: 2 take 1 tablet by mouth twice daily Bactrim DS 800 mg-160 mg oral tablet Dose = 1 tab(s), Oral, BID, X 10 day(s), # 20 tab(s), 0 Refill(s), Pharmacy: [facility]/pharmacy #[id number], 185.4, cm, 03/08/22 14:07:00 EDT, Height, 71.1 Start Date: 03/08/22 Stop Date: 03/18/22 Status: Ordered Completed/Discontinued Medications Medication Drug Class(es) Dates Sig (Normalized) Sig (Original) Al-Mg hydroxide-simethicon e (MAALOX) 200-200-20 mg/5 mL 30 mL, lidocaine (XYLOCAINE) 2 % 15 mL (1 source) Start: 02-23-2025 End: 02-23-2025 take 45 mL by mouth once 45 mL, Oral, ONCE, On 02/23/25 at 0545, For 1 dose [id number] 200 actuat albuterol 0.09 mg/actuat metered dose inhaler (2 sources) beta2-Adrenergic Agonist Start: 08-04-2023 take 2 puff(s) by inhalation every four hours albuterol HFA (PROVENTIL HFA, VENTOLIN HFA) 90 mcg/actuation inhaler INHALE 2 PUFFS EVERY 4 HOURS 0 08/04/2023 Active Comment on above: INHALE 2 PUFFS EVERY 4 HOURS buprenorphine 0.075 mg buccal film (1 source) Partial Opioid Agonist Start: 11-16-2022 End: 11-26-2022 buprenorphine 75 mcg buccal film Dose : 75 mcg = 1 EA, Buccal, q12h, fill on or after 11/16/22; place film on inside of cheek and avoid food or drink until completely dissolved; intolerant due to allergy to ultram, oxycodone, hydrocodone; switch to long acting agent, # 20 film, 0 Refi... Start Date: 11/16/22 Stop Date: 11/26/22 Status: Ordered cholecalciferol 0.025 mg oral tablet (8 sources) Vitamin D Start: 02-14-2023 take 1 tablet by mouth once daily cholecalciferol (VITAMIN D3) 1,000 unit tab tablet Take 1 tablet by mouth once daily. 0 02/14/2023 Active Comment on above: Take 1 tablet by [facility] once daily. 1 ml denosumab 60 mg/ml prefilled syringe (4 sources) RANK Ligand Inhibitor Start: 02-28-2023 denosumab 60 mg/mL subcutaneous solution Dose : 60 mg = 1 mL, Subcutaneous, q6mo, # 1 mL, 1 Refill(s) Start Date: 02/28/23 Status: Ordered Quantity: 1.0 Unit: mL Repeat number: 2 diphenhydrAMINE hydrochloride 25 mg oral capsule (6 sources) Histamine-1 Receptor Antagonist Start: 2024 End: 11-13-2024 take 1 capsule by mouth three times daily as needed Diphenhydramine Hcl (Benadryl) 25 mg capsule Discontinued 25 mg PO THREE TIMES A DAY as needed for allergic reaction 2024 12:00am November 13, 2024 3:11pm docusate sodium 100 mg oral capsule (14 sources) Start: 06-28-2022 End: 04-24-2023 take 1 capsule by mouth twice daily as needed for constipation docusate sodium (COLACE) 100 mg capsule TAKE 1 CAPSULE BY MOUTH TWICE A DAY FOR 30 DAYS NEEDED FOR CONSTIPATION 0 08/13/2022 Active Comment on above: TAKE 1 CAPSULE BY [facility] TWICE A DAY FOR 30 DAYS NEEDED FOR CONSTIPATION 120 actuat fluticasone propionate 0.22 mg/actuat metered dose inhaler (3 sources) Corticosteroid Start: 11-19-2023 End: 03-31-2025 take 2 puff(s) by mouth twice daily Flovent HFA 220 mcg/inh inhalation aerosol 2 puff(s), Inhalation, BID, 220 mcg per inh; rinse mouth and throat after use, # 1 EA, 5 Refill(s), Pharmacy: [facility], 180, cm, 10/02/24 9:56:00 EST, Height, kg, 10/02/24 9:56:00 EST, Dosing Weight Start Date: 10/02/24 Stop Date: 03/31/25 Status: Ordered Quantity: 1.0 Unit: EA Repeat number: 6 levoFLOXacin 750 mg oral tablet (5 sources) Quinolone Antimicrobial Start: 07-01-2024 End: 11-13-2024 take 1 tablet by mouth once daily Levofloxacin 750 mg tablet Discontinued 750 mg PO DAILY July 01, 2024 12:00am November 13, 2024 3:12pm lidocaine 0.05 mg/mg medicated patch (20 sources) Antiarrhythmic, Amide Local Anesthetic Start: 11-05-2024 End: 11-13-2024 Lidocaine (Lidoderm) 5 % adhesive patch,medicated Discontinued 1 NMA TOPICAL DAILY November 05, 2024 1:00am November 13, 2024 3:12pm leave on most painful area for up to 12 hrs Start: 02-26-2022 End: 03-05-2022 Lidoderm 5% topical patch Ap ply 1 patch(es), Topical, Daily, # 7 patch(es), 0 Refill(s), 73 Start Date: 02/26/22 Stop Date: 03/05/22 Status: Ordered Start: 08-28-2021 End: 09-04-2021 Lidoderm 5% topical patch Ap ply 1 patch(es), Transdermal, Daily, # 7 patch(es), 0 Refill(s), 79.5 Start Date: 08/28/21 Stop Date: 09/04/21 Status: Ordered Start: 02-23-2021 End: 03-02-2021 Lidoderm 5% topical patch Ap ply 1 patch(es), Topical, Daily, # 7 patch(es), 0 Refill(s), 75 Start Date: 02/23/21 Stop Date: 03/02/21 Status: Ordered methylPREDNISolone 4 mg oral tablet (1 source) Corticosteroid Start: 04-04-2020 methylPREDNISolone (MEDROL, REX,) 4 mg Dose-Pack Take by mouth. As directed on package 1 Package 0 04/04/2020 Active Comment on above: Take by mouth. As di rected on package 1 ml morphine sulfate 4 mg/ml injection (1 source) Opioid Agonist Start: 03-08-2022 End: 03-08-2022 morphine sulfate (PF) injection 2 mg 2 ml ondansetron 2 mg/ml injection (17 sources) Serotonin-3 Receptor Antagonist Start: 02-23-2025 End: 02-23-2025 take 1 dose intravenously once 4 mg, IV Push, ONCE, 1 dose, On Sun02/23/25 at 0530 Start: 11-25-2024 take 1 tablet by angel th every eight hours as needed for nausea Ondansetron 4 mg tablet,disintegrating Active 4 mg PO EVERY 8 HOURS NEEDED as needed for Nausea November 25, 2024 1:00am Start: 11-05-2024 End: 12-15-2024 take 1 tablet by mouth every six hours as needed for nausea and vomiting Ondansetron 4 mg tablet,disintegrating Discontinued 4 mg PO EVERY 6 HOURS as needed for nausea and vomiting November 05, 2024 1:00am December 15, 2024 11:55am Start: 07-01-2024 End: 11-13-2024 take 1 tablet by mouth every eight hours as needed for nausea Ondansetron 4 mg tablet,disintegrating Discontinued 4 mg PO EVERY 8 HOURS NEEDED as needed for Nausea July 01, 2024 12:00am November 13, 2024 3:13pm Start: 03-08-2022 End: 03-08-2022 ondansetron (ZOFRAN-ODT) dis integrating tablet 4 mg oxyCODONE hydrochloride 5 mg oral tablet (20 sources) Opioid Agonist Start: 07-01-2024 End: 11-13-2024 take 1 tablet by mouth every six hours as needed for pain Oxycodone 5 mg tablet Discontinued 5 mg PO EVERY 6 HOURS as needed for pain 12 July 01, 2024 November 13, 2024 3:13pm Start: 10-09-2023 End: 11-13-2024 Oxycodone 10 mg tablet Disco ntinued mg October 09, 2023 1:00am November 13, 2024 3:13pm Start: 10-09-2023 Oxycodone Acti ve MG October 09, 2023 1:00am Start: 07-26-2023 End: 08-25-2023 oxyCODONE IR (ROXICODONE) 10 mg tab Start: 09-16-2022 take 10 mg by mouth three times daily Oxycodone Active 10 MG PO THREE TIMES A DAY 9 3 September 16, 2022 Start: 08-25-2022 End: 10-22-2022 oxyCODONE 5 mg oral tablet ( IMMEDIATE release ) Dose : 5 mg = 1 tab(s), Oral, q6h, PRN for pain, fill on or after 09/24/22; managing pain until pain management can be established; discontinue other oxycodone rx on file, X 30 day(s), # 120 tab(s), 0 Refill(s), 10/22/22 14:32:00 EST, [facility]: [email or web address] Start Date: 09/22/22 Stop Date: 10/22/22 Status: Ordered Comment on above: Take 5 mg by mouth e very 6 hours as needed. polyethylene glycol 3350 176285 mg / potassium chloride 2970 mg / sodium bicarbonate 6740 mg / sodium chloride 5860 mg / sodium sulfate 70286 mg powder for oral solution (2 sources) Osmotic Laxative Start: 08-15-2023 GAVILYTE-G 236-22.74-6.74 -5.86 gram suspension tamsulosin hydrochloride 0.4 mg oral capsule (20 sources) alpha-Adrenergic Beba Start: 10-09-2023 End: 11-13-2024 Tamsulosin 0.4 mg capsule Discontinued mg PO October 09, 2023 1:00am November 13, 2024 3:14pm Start: 10-09-2023 Tamsulosin Act pamela MG PO October 09, 2023 1:00am Start: 08-14-2022 End: 09-25-2023 take 0.4 mg by mouth once daily tamsulosin (FLOMAX) 0. 4 mg Take 0.4 mg by mouth once daily. 0 08/14/2022 Active Comment on above: Take 0.4 mg by mouth once daily. Walker misc (8 sources) Start: 02-13-2023 Walker misc Indications: Other closed fracture of second lumbar vertebra, initial encounter ([facility]) 1 Units once daily. Wheeled walker 1 Each 0 02/13/2023 Active Comment on above: 1 Units once daily. Wheeled walker Problems Active Problems Problem Classification Problem Date Documented Da te Episodic/Chronic Abdominal pain (20 sources) Left flank pain; Translations: [Unspecified abdominal pain] Onset: 5 03-08-2022 Episodic Acquired foot deformities (3 sources) Foot-drop; Translations: [Foot drop, left foot] 11-18-2024 Episodic Anal and rectal conditions (10 sources) Anal fissure; Translations: [Anal fissure, unspecified] Episodic Comment on above: seen on CT 02/11/23 ( pelvic arteries heavily calcified) Aortic; peripheral; and visceral artery aneurysms (16 sources) Aneurysm 06-09-2018 Chronic Blindness and vision defects (20 sources) Wears glasses 01-19-2021 Episodic Calculus of urinary tract (1 source) Kidney stone 01-22-2025 Episodic Chronic obstructive pulmonary disease and bronchiectasis (6 sources) Mild chronic obstructive pulmonary disease; Translations: [Pulmonary emphysema] 01-04-2023 Chronic Coronary atherosclerosis and other heart disease (6 sources) Coronary arteriosclerosis; Translations: [Angina pectoris] 01-04-2023 Chronic Deficiency and other anemia (5 sources) Anemia; Translations: [Anemia, unspecified] 11-13-2024 Episodic Digestive congenital anomalies (1 source) Pancreatic duct disorder; Translations: [Other specified diseases of pancreas] Chronic Disorders of lipid metabolism (20 sources) Hypercholesterolemia; Translations: [Hyperlipidemia] Onset: 8 06-09-2018 Chronic E Codes: Fall (20 sources) Fall; Translations: [Unspecified fall, initial encounter] Onset: 2 Episodic Epilepsy; convulsions (20 sources) Epilepsy 08-12-2014 Chronic Esophageal disorders (20 sources) Gastroesophageal reflux disease; Translations: [Gastro-esophageal reflux disease without esophagitis] 03-02-2022 Chronic External Injury - Fall (12 sources) Fall (on) (from) unspecified stairs and steps, initial encounter; Translations: [Fall] Onset: 7 12-07-2021 Fracture of lower limb (5 sources) Fracture of left lower limb; Translations: [Unspecified fracture of left lower leg, initial encounter for closed fracture] 11-13-2024 Episodic Comment on above: Hardware Genitourinary symptoms and ill-defined conditions (20 sources) Nocturia 01-19-2021 Episodic Hemorrhoids (20 sources) Bleeding external hemorrhoids; Translations: [Residual hemorrhoidal skin tags] 05-25-2022 Episodic Hyperplasia of prostate (6 sources) Benign prostatic hypertrophy with outflow obstruction; Translations: [Benign prostatic hyperplasia] 02-21-2023 Chronic Inflammatory conditions of male genital organs (3 sources) Prostatitis 07-02-2024 Episodic Intestinal obstruction without hernia (9 sources) Fecal impaction; Translations: [Fecal impaction of rectum] 05-31-2023 Episodic Intracranial injury (7 sources) Concussion injury of body structure; Translations: [Concussion] 10-09-2023 Episodic Joint disorders and dislocations; trauma-related (4 sources) 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 Mood disorders (20 sources) Depressive disorder; 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] 12-07-2021 Chronic Nonspecific chest pain (3 sources) Chest pain; Translations: [Chest pain, unspecified] Onset: 5 02-23-2025 Episodic Nutritional deficiencies (2 sources) Vitamin D deficiency, unspecified; Translations: [Vitamin D deficiency, unspecified] Onset: 5 Chronic Nutritional deficiencies (7 sources) Iron deficiency; Translations: [Iron deficiency] Onset: 5 03-28-2023 Episodic Osteoarthritis (20 sources) Arthritis 06-09-2018 Chronic Other and ill-defined cerebrovascular disease (8 sources) Intracranial aneurysm 10-26-2022 Chronic Other circulatory disease (1 source) History of aneurysm; Translations: [Personal history of other diseases of circulatory system] Episodic Other connective tissue disease (1 source) H/O: arthritis; Translations: [Personal history of arthritis] Episodic Other connective tissue disease (1 source) H/O: back problem; Translations: [Personal history of other musculoskeletal disorders] Episodic Other connective tissue disease (20 sources) Foot pain 03-01-2021 Episodic Comment on above: Told had arthritis s urgery was recommended at the [facility] patient did not want Other connective tissue disease (20 sources) Pain in bilateral legs 01-19-2021 Episodic Other connective tissue disease (20 sources) Muscle weakness of limb 01-05-2022 Episodic Other connective tissue disease (20 sources) Recurrent falls 01-05-2022 Episodic Other connective tissue disease (17 sources) Pain in lower limb; Translations: [Pain in right leg] Onset: 5 04-22-2022 Episodic Other connective tissue disease (6 sources) Heel pain; Translations: [Pain in left foot] 2024 Episodic Other connective tissue disease (10 sources) Tear of left rotator cuff; Translations: [Unspecified rotator cuff tear or rupture of left shoulder, not specified as traumatic] 12-15-2024 Episodic Other connective tissue disease (1 source) Pain in right lower limb; Translations: [Pain in right leg] 02-23-2025 Episodic Other connective tissue disease (1 source) Pain in right leg; Translations: [Pain in right leg] Onset: Episodic Other diseases of kidney and ureters (1 source) Kidney lesion 01-22-2025 Episodic Other fractures (20 sources) Compression fracture of thoracic spine 12-07-2021 Episodic Other fractures (11 sources) Closed fracture lumbar vertebra; Translations: [Unspecified fracture of unspecified lumbar vertebra, initial encounter for closed fracture] 02-11-2023 Episodic Other fractures (20 sources) Compression fracture of lumbar spine; Translations: [Wedge compression fracture of fourth lumbar vertebra, initial encounter for closed fracture] Onset: 3 02-13-2023 Episodic Other fractures (1 source) Burst fracture of lumbar vertebra; Translations: [Stable burst fracture of unspecified lumbar vertebra, sequela] Episodic Other fractures (2 sources) Other fracture of unspecified lumbar vertebra, initial encounter for closed fracture; Translations: [Other fracture of unspecified lumbar vertebra, initial encounter for closed fracture (HCC)] Onset: Episodic Other gastrointestinal disorders (1 source) Heartburn; Translations: [Heartburn] Episodic Other gastrointestinal disorders (14 sources) Constipation; Translations: [Constipation, unspecified] 05-31-2023 Episodic Other gastrointestinal disorders (4 sources) Therapeutic opioid induced constipation 08-15-2023 Episodic Other injuries and conditions due to external causes (19 sources) At risk for falls 02-20-2022 Episodic Other injuries and conditions due to external causes (5 sources) Closed injury of head; Translations: [Unspecified injury of head, initial encounter] 12-03-2024 Episodic Other injuries and conditions due to external causes (1 source) Encounter for examination and observation following other accident; Translations: [Encounter for examination and observation following other accident] Onset: 5 Episodic Other injuries and conditions due to external causes (1 source) Unspecified injury of left shoulder and upper arm, initial encounter; Translations: [Unspecified injury of left shoulder and upper arm, initial encounter] Onset: 5 Episodic Other lower respiratory disease (20 sources) Wheezing 01-19-2021 Episodic Other lower respiratory disease (14 sources) Nodule of lung 12-07-2021 Episodic Other lower respiratory disease (19 sources) Multiple nodules of lung 02-20-2022 Episodic Other male genital disorders (1 source) 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 Other male genital disorders (8 sources) Swelling of scrotum 11-16-2022 Episodic Other male genital disorders (7 sources) Spermatocele 12-06-2022 Episodic Other nervous system disorders (1 source) Other chronic pain; Translations: [Other chronic pain] Onset: Chronic Other nervous system disorders (1 source) Chronic pain syndrome; Translations: [Chronic pain syndrome] 08-22-2023 Chronic Other nervous system disorders (1 source) Chronic pain syndrome; Translations: [Chronic pain syndrome] Onset: 3 Chronic Other nervous system disorders (1 source) H/O: epilepsy; Translations: [Personal history of other disorders of nervous system and sense organs] Episodic Other nervous system disorders (20 sources) Abnormal gait 01-05-2022 Episodic Other non-traumatic joint disorders (20 sources) Pain in wrist 03-01-2021 Episodic Comment on above: Patient was told had arthritis surgery was recommended to [facility] patient did not want Other non-traumatic joint disorders (20 sources) Clavicle pain 12-07-2021 Episodic Other non-traumatic joint disorders (20 sources) Shoulder pain 12-07-2021 Episodic Other non-traumatic joint disorders (1 source) Pain of left shoulder joint; Translations: [Pain in left shoulder] Episodic Other non-traumatic joint disorders (5 sources) Chronic pain of left upper limb; Translations: [Pain in left shoulder] 11-13-2024 Episodic Other nutritional; endocrine; and metabolic disorders (1 source) Weight loss; Translations: [Loss of weight] Episodic Other nutritional; endocrine; and metabolic disorders (1 source) History of hypercholesterolemia; Translations: [Personal history of other endocrine, metabolic, and immunity disorders] Episodic Other screening for suspected conditions (not mental disorders or infectious disease) (13 sources) Viral screening status; Translations: [Electrocardiogram abnormal] Onset: 5 07-23-2023 Episodic Peripheral and visceral atherosclerosis (13 sources) Atherosclerosis of aorta; Translations: [Peripheral vascular disease] 10-26-2022 Chronic Comment on above: seen on CT 02/11/23 ( pelvic arteries heavily calcified) Poisoning by nonmedicinal substances (18 sources) Hymenoptera sting; Translations: [Toxic effect of venom of other arthropod, accidental (unintentional), initial encounter] 08-12-2022 Episodic Residual codes; unclassified (14 sources) Chronic pain 03-08-2022 Episodic Residual codes; unclassified (12 sources) Family history of disorder 05-29-2022 Episodic Comment on above: son of 2020 Residual codes; unclassified (11 sources) Screening due 08-25-2022 Episodic Residual codes; unclassified (8 sources) History of surgery for cerebral aneurysm 10-26-2022 Episodic Residual codes; unclassified (5 sources) Denture present 02-28-2023 Episodic Residual codes; unclassified (5 sources) Immunization due 07-23-2023 Episodic Screening or history of mental health and substance abuse (16 sources) Personal history of nicotine dependence; Translations: [Ex-smoker] Onset: 7 03-08-2022 Episodic Spondylosis; intervertebral disc disorders; other back problems (20 sources) Other intervertebral disc degeneration, lumbar region; Translations: [Lumbosacral spondylosis without myelopathy] Onset: 7 03-01-2021 Chronic Spondylosis; intervertebral disc disorders; other back problems (20 sources) Dorsalgia, unspecified; Translations: [Backache] Onset: 5 08-12-2014 Episodic Sprains and strains (20 sources) Injury of multiple muscles and tendons at shoulder and upper arm level; Translations: [Strain of unspecified muscle, fascia and tendon at shoulder and upper arm level, unspecified arm, initial encounter] Onset: 2 Episodic Substance-related disorders (3 sources) Continuous opioid dependence 04-16-2024 Chronic Superficial injury; contusion (20 sources) Contusion of left wrist, initial encounter; Translations: [Contusion of right foot, initial encounter] Onset: 7 12-12-2021 Episodic Unclassified (1 source) Sprain of left wrist; Translations: [Sprain of left wrist, initial encounter] Unclassified (20 sources) Long-term current use of drug therapy 03-01-2021 Unclassified (20 sources) Patient encounter status 12-07-2021 Unclassified (20 sources) Rupture of rotator cuff of shoulder 12-07-2021 Unclassified (20 sources) No history of clinical finding in subject; Translations: [No significant past medical history] 02-10-2019 Unclassified (8 sources) Drug therapy finding 10-26-2022 Unclassified (4 sources) Fracture of second lumbar vertebra 11-01-2023 Unclassified (3 sources) Body mass index 20-24 - normal 04-16-2024 Unclassified (3 sources) Calcified granuloma of lung 08-15-2024 Unclassified (1 source) cp, leg pain Onset: 5 Unclassified (1 source) Other intervertebral disc degeneration, lumbar region with discogenic back pain and lower extremity pain; Translations: [Other intervertebral disc degeneration, lumbar region with discogenic back pain and lower extremity pain] Onset: 5 Unclassified (1 source) Low back pain, unspecified; Translations: [Low back pain, unspecified] Onset: 5 Urinary tract infections (20 sources) Acute urinary tract infection; Translations: [Urinary tract infection, site not specified] 01-20-2022 Episodic Past or Other Problems Problem Classification Problem Date Documented Da te Episodic/Chronic Allergic reactions (4 sources) Allergy status to other drugs, medicaments and biological substances status; Translations: [Allergy status to analgesic agent status] Onset: 05-29-2017 Episodic Other connective tissue disease (2 sources) Pain in right foot; Translations: [Pain in right foot] Onset: 05-29-2017 Episodic Other connective tissue disease (9 sources) Myofascial pain syndrome; Translations: [Myalgia, other site] Onset: 09-02-2015 09-02-2015 Episodic Other connective tissue disease (1 source) Unspecified rotator cuff tear or rupture of left shoulder, not specified as traumatic; Translations: [Unspecified rotator cuff tear or rupture of left shoulder, not specified as traumatic] Onset: 12-15-2024 Episodic Other fractures (8 sources) Compression fracture of L2; Translations: [Wedge compression fracture of second lumbar vertebra, initial encounter for closed fracture] Onset: 02-12-2023 02-13-2023 Episodic Other fractures (1 source) Other fracture of second lumbar vertebra, initial encounter for closed fracture; Translations: [Other closed fracture of second lumbar vertebra, initial encounter ([facility])] Onset: 02-11-2023 Episodic Other fractures (1 source) Other fracture of fourth lumbar vertebra, initial encounter for closed fracture; Translations: [Other closed fracture of fourth lumbar vertebra, initial encounter ([facility])] Onset: 02-11-2023 Episodic Other injuries and conditions due to external causes (2 sources) Unspecified injury of left wrist, hand and finger(s), initial encounter; Translations: [Unsp injury of left wrist, hand and finger(s), init encntr] Onset: 05-29-2017 Episodic Other injuries and conditions due to external causes (1 source) Unspecified injury of head, initial encounter; Translations: [Unspecified injury of head, initial encounter] Onset: 12-11-2024 Episodic Other non-traumatic joint disorders (5 sources) Pain in left wrist; Translations: [Pain in unspecified wrist] Onset: 05-28-2017 Episodic Other non-traumatic joint disorders (14 sources) Pain in left shoulder; Translations: [Left shoulder pain] Onset: 12-15-2024 11-13-2024 Episodic Unclassified (20 sources) Contusion of left hip, initial encounter 02-11-2019 Unclassified (20 sources) Contusion of right knee, initial encounter 03-24-2019 Results Test Name Value Interpretation Reference Range Facility L/S Spine Bending Flex/Weed 03-19-2025 L/S Spine Bending Flex/Ext [facility] [address] [place] [address] L/S Spine Bending Flex/Ext MR#: [id number] Acct: [id number] Name: WINSTON MARI Rep #: [id number] : 1955 M 70 From: Doug Martinez MD PCP: Dr. Eugenio Mayen DO Status: DEP AMB Study: L/S Spine Bending Flex/Ext Date of Exam: 03/19 Exam# [id number] Ordering Dr: Aiyana Campbell PROCEDURE: L/S SPINE BENDING FLEX/EXT 03/19/2025 REASON FOR EXAM: CHRONIC PAIN TECHNIQUE: Two views flexion-extension COMPARISON: 11/18/2024 FINDINGS: Similar appearing superior endplate compression fracture deformities at L2 and L4 again noted. No new appearing fracture or malalignment identified. No evidence of instability. Multilevel spondylosis/discogenic change with degenerative endplate changes at L1-2, L4-5 and L5-S1 again noted. Aortoiliac atherosclerotic calcification. RAD/L/S Spine Bending Flex/Ext IMPRESSION: Flexion and extension as above. Reading Location: [id number] CC: NIKI Rock; Dr. Eugenio Mayen DO 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: Signed Normal [facility] Orthopedic Visit Reporton Orthopedic Visit Report [facility] [address] [place] [address] OFFICE VISIT Date of Service: 03/19/25 MR#: [id number] Acct: [id number] Name: WINSTON MARI Paul Rep #: [id number] : 1955 Provider: NIKI Rock Age/Sex: 70/M Location: [email or web address] Status: Signed Intake Vital Signs 01/03/25 16:39 Height 5 ft 11 in Intake Visit Reasons: LUMBAR SPINE Allergies adhesive tape (tape) Adverse Reaction (Verified 03/19/25 09:52) Rash hydrocodone (From [place]) Adverse Reaction (Verified 03/19/25 09:52) Upset Stomach ibuprofen Adverse Reaction (Verified 03/19/25 09:52) Upset Stomach ketorolac (From Toradol) Adverse Reaction (Verified 03/19/25 09:52) Rash meloxicam (From Mobic) Adverse Reaction (Verified 03/19/25 09:52) Muscle weakness naproxen Adverse Reaction (Verified 03/19/25 09:52) Rash tramadol Adverse Reaction (Verified 03/19/25 09:52) Upset Stomach Medications ???Medication ???Instructions ???Recorded ???Confirmed ???Type gabapentin 300 mg capsule 300 mg PO 4X/DAY 04/02/22 03/19/25 History hydrocortisone acetate 25 mg 25 mg VT QHS #12 ea 04/27/2203/19 Rx rectal suppository (Anusol-HC) atorvastatin 40 mg tablet (Lipitor) 40 mg PO QHS 01/13/23 03/19/25 History polyethylene glycol 3350 17 17 g PO DAILY #119 grams 05/31/23 03/19/25 Rx gram/dose oral powder (ClearLax) cyclobenzaprine 5 mg tablet 5 mg PO TID PRN muscle spasm 4 03/19/25 Rx days #12 tabs clopidogrel 75 mg tablet 75 mg PO QDAY 11/13/24 03/19/25 Hi story duloxetine 30 mg capsule,delayed See Rx Instructions PO QDAY 03/19/25 History release ferrous sulfate 325 mg (65 mg 325 mg PO QDAY 11/13/24 03/19/25 H istory iron) tablet pantoprazole 40 mg tablet,delayed 40 mg PO QDAY 11/13/24 03/19/25 H istory release ondansetron 4 mg disintegrating 4 mg PO Q8H PRN PRN Nausea #10 tab s 11/25/24 03/19/25 Rx tablet oxycodone-acetaminophen 5 mg-325 1 tab PO Q8H PRN pain 3 days #10 0 11/25/24 03/19/25 Rx mg tablet (Percocet) tabs diazepam 5 mg tablet 5 mg PO Q8 PRN Muscle Spasm #10 03/19/25 Rx tabs Have you fallen in the past year?: Yes PFSH Medical History Left rotator cuff tear Anemia GERD (gastroesophageal reflux disease) Left shoulder pain Hemorrhoid Epilepsy Sciatica High cholesterol Surgical History Leg fracture, left S/P clamping of cerebral aneurysm Family History Other Cancer Diabetes Heart disease Social History household members: significant other Smoking Status: Former smoker alcohol intake: former substance use type: does not use HPI LUMBAR SPINE Details: This documentation accurately reflects the service provided and the decisions made by me, NIKI Rock 03/19/25 0904. Part of today???s visit was documented by Araseli POPE, acting as scribe. WINSTON MARI is a 70 year old M here today for MRI review of his lumbar spine. Patient denies any changes. Plavix was in his medication list for a potentital clot in his leg but he hasn't been taking that since the beginning of the year. No diabetes, no heart issues, hx of COPD no oxygen. The patient also says that he did have a right sided leg injury several months ago which makes any sort of right sided movement worse. HPI from 11/18/24: WINSTON MARI is a 69 year old M here today for ED f/u on low back pain. He states that in 2022 he fell off a roof about 30ft and fractured L2 and L4 and was sent to [facility] for 3-4 days. He was then recommended to have a kyphoplasty but he refused it because of the chance of it leaking out and getting into his bloodstream. He then had a recent fall when he fell off a 10ft ladder trying to fix a light on a merry go round and fractured L1. He was seen in the ER 2 weeks ago. He states that he is having trouble getting comfortable or sleeping. He does have pain in his left leg that radiates up into his buttock and into his low back. He says that this leg pain is located over his lateral left leg. He does have tingling in his left leg. He does take Cymbalta and gabapentin for pain. He has seen pain management in the past at [facility]. Worsening pain over the last week with foot numbness. Pain meds and resting improves pain. He saw physical therapy for his shoulder a couple of months ago and he did about a month of physical therapy going 2 times per week. Ortho Exam General General: Yes no acute distress Neurologic: Yes alert and Yes oriented x3 Psychologic: Yes reasonable and appropriate Spine SPINE TESTING CERVICAL THORACIC (more content not included)... Normal [facility] BASIC METABOLIC PANELon 05-0 Anion gap [Moles/Vol] 7 mmol/L Normal 7-16 [facility] Comment on above: Order Comment: KDIGO 2012 GFR Categories Stage Description eGFR (mL/min/1.73m2) G1 Normal or high >=90 G2 Mildly decreased 60-89 G3a Mildly to moderately decreased 45-59 G3b Moderately to severely decreased 30-44 G4 Severely decreased 15-29 G5 Kidney Failure <15 Release to patient->Immediate Performed By: #### L [id number] #### [address] Calcium [Mass/Vol] 9.5 mg/dL Normal 8.6-10.2 [facility] Comment on above: Order Comment: KDIGO 2012 GFR Categories Stage Description eGFR (mL/min/1.73m2) G1 Normal or high >=90 G2 Mildly decreased 60-89 G3a Mildly to moderately decreased 45-59 G3b Moderately to severely decreased 30-44 G4 Severely decreased 15-29 G5 Kidney Failure <15 Release to patient->Immediate Performed By: #### L [id number] #### [address] Chloride [Moles/Vol] 104 mmol/L Normal 98-107 [facility] Comment on above: Order Comment: KDIGO 2012 GFR Categories Stage Description eGFR (mL/min/1.73m2) G1 Normal or high >=90 G2 Mildly decreased 60-89 G3a Mildly to moderately decreased 45-59 G3b Moderately to severely decreased 30-44 G4 Severely decreased 15-29 G5 Kidney Failure <15 Release to patient->Immediate Performed By: #### L [id number] #### [id number] [place] [address] [facility] CO2 [Moles/Vol] 27 mmol/L Normal 21-31 [facility] Comment on above: Order Comment: KDIGO 2012 GFR Categories Stage Description eGFR (mL/min/1.73m2) G1 Normal or high >=90 G2 Mildly decreased 60-89 G3a Mildly to moderately decreased 45-59 G3b Moderately to severely decreased 30-44 G4 Severely decreased 15-29 G5 Kidney Failure <15 Release to patient->Immediate Performed By: #### L [id number] #### [address] Creatinine [Mass/Vol] 0.93 mg/dL Normal 0.7-1.3 [facility] Comment on above: Order Comment: KDIGO 2012 GFR Categories Stage Description eGFR (mL/min/1.73m2) G1 Normal or high >=90 G2 Mildly decreased 60-89 G3a Mildly to moderately decreased 45-59 G3b Moderately to severely decreased 30-44 G4 Severely decreased 15-29 G5 Kidney Failure <15 Release to patient->Immediate Performed By: #### L [id number] #### [address] GFR/1.73 sq M.predicted among non-blacks MDRD (S/P/Bld) [Vol rate/Area] 89 mL/min/{1.73_m2} Normal >90 [facility] Comment on above: Order Comment: KDIGO 2012 GFR Categories Stage Description eGFR (mL/min/1.73m2) G1 Normal or high >=90 G2 Mildly decreased 60-89 G3a Mildly to moderately decreased 45-59 G3b Moderately to severely decreased 30-44 G4 Severely decreased 15-29 G5 Kidney Failure <15 Release to patient->Immediate Result Comment: Repo rted eGFR is based on the CKD-EPI 2021 equation that does not use a race coefficient. Performed By: #### L [id number] #### [address] Glucose [Mass/Vol] 97 mg/dL Normal 74-109 [facility] Comment on above: Order Comment: KDIGO 2012 GFR Categories Stage Description eGFR (mL/min/1.73m2) G1 Normal or high >=90 G2 Mildly decreased 60-89 G3a Mildly to moderately decreased 45-59 G3b Moderately to severely decreased 30-44 G4 Severely decreased 15-29 G5 Kidney Failure <15 Release to patient->Immediate Performed By: #### L [id number] #### [id number] [facility] Potassium [Moles/Vol] 3.7 mmol/L Normal 3.5-5.1 [facility] Comment on above: Order Comment: KDIGO 2012 GFR Categories Stage Description eGFR (mL/min/1.73m2) G1 Normal or high >=90 G2 Mildly decreased 60-89 G3a Mildly to moderately decreased 45-59 G3b Moderately to severely decreased 30-44 G4 Severely decreased 15-29 G5 Kidney Failure <15 Release to patient->Immediate Performed By: #### L [id number] #### [address] [id number] Sodium [Moles/Vol] 138 mmol/L Normal 136-145 [facility] Comment on above: Order Comment: KDIGO 2012 GFR Categories Stage Description eGFR (mL/min/1.73m2) G1 Normal or high >=90 G2 Mildly decreased 60-89 G3a Mildly to moderately decreased 45-59 G3b Moderately to severely decreased 30-44 G4 Severely decreased 15-29 G5 Kidney Failure <15 Release to patient->Immediate Performed By: #### L [id number] #### [address] Urea nitrogen [Mass/Vol] 21 mg/dL Normal 7-25 [facility] Comment on above: Order Comment: KDIGO 2012 GFR Categories Stage Description eGFR (mL/min/1.73m2) G1 Normal or high >=90 G2 Mildly decreased 60-89 G3a Mildly to moderately decreased 45-59 G3b Moderately to severely decreased 30-44 G4 Severely decreased 15-29 G5 Kidney Failure <15 Release to patient->Immediate Performed By: #### L [id number] #### [address] Basic Metabolic PanelOrdered By: Background Lab on 02-23-2025 Anion gap 4 (S/P/Bld) [Moles/Vol] 7 mmol/L 7 - 16 mmol/L [facility] Calcium (Bld) [Mass/Vol] 9.5 mg/dL 8.6 - 10.2 mg/dL [facility] Chloride (S/P/Bld) [Moles/Vol] 104 mmol/L 98 - 107 mmol/L [facility] CO2 (S/P/Bld) [Moles/Vol] 27 mmol/L 21 - 31 mmol/L [facility] Creatinine [Mass/Vol] 0.93 mg/dL 0.70 - 1.30 mg/dL [facility] GFR Male 89 - PINF [facility] Comment on above: Reported eGFR is bas ed on the CKD-EPI 2020 equation that does not use a race coefficient. Glucose [Mass/Vol] 97 mg/dL 74 - 109 mg/dL [facility] Potassium (S/P/Bld) [Moles/Vol] 3.7 mmol/L 3.5 - 5.1 mmol/L [facility] Sodium (S/P/Bld) [Moles/Vol] 138 mmol/L 136 - 145 mmol/L [facility] Urea nitrogen [Mass/Vol] 21 mg/dL 7 - 25 mg/dL [facility] KDIGO 2012 GFR Categories Stage Description eGFR (mL/min/1.73m2) G1 Normal or high >=90 G2 Mildly decreased 60-89 G3a Mildly to moderately decreased 45-59 G3b Moderately to severely decreased 30-44 G4 Severely decreased 15-29 G5 Kidney Failure <[address] [facility] CBC W/DIFFon 02-23-2025 BASOPHILS ABS AUTO 0.1 K/uL Normal 0.0-0.1 [facility] Comment on above: Order Comment: Relea se to patient->Immediate Performed By: #### L [id number] #### [address] Basophils/100 WBC (Bld) 0.7 % Normal [facility] Comment on above: Order Comment: Relea se to patient->Immediate Performed By: #### L [id number] #### [address] Eosinophils (Bld) [#/Vol] 0.2 10*3/uL Normal 0.0-0.4 [facility] Comment on above: Order Comment: Relea se to patient->Immediate Performed By: #### L [id number] #### [address] Eosinophils/100 WBC (Bld) 2.5 % Normal [facility] Comment on above: Order Comment: Relea se to patient->Immediate Performed By: #### L [id number] #### [address] Erythrocyte distribution width (RBC) [Ratio] 14.4 % Normal 11.7-15.2 [facility] Comment on above: Order Comment: Relea se to patient->Immediate Performed By: #### L [id number] #### [address] Hematocrit (Bld) [Volume fraction] 36.2 % Abnormal 39.0-51.5 [facility] Comment on above: Order Comment: Relea se to patient->Immediate Performed By: #### L [id number] #### [address] Hemoglobin (Bld) [Mass/Vol] 12.4 g/dL Abnormal 13.1-17.6 [facility] Comment on above: Order Comment: Relea se to patient->Immediate Performed By: #### L [id number] #### [address] Lymphocytes (Bld) [#/Vol] 1.2 10*3/uL Normal 0.8-3.6 [facility] Comment on above: Order Comment: Relea se to patient->Immediate Performed By: #### L [id number] #### [address] Lymphocytes/100 WBC (Bld) 12.8 % Normal [facility] Comment on above: Order Comment: Relea se to patient->Immediate Performed By: #### L [id number] #### [address] MCH (RBC) [Entitic mass] 30.9 pg Normal 28.4-33.4 [facility] Comment on above: Order Comment: Relea se to patient->Immediate Performed By: #### L [id number] #### [address] MCHC (RBC) [Mass/Vol] 34.2 g/dL Normal 31.1-37.0 [facility] Comment on above: Order Comment: Relea se to patient->Immediate Performed By: #### L [id number] #### [address] MCV (RBC) [Entitic vol] 90.3 fL Normal 85.0-99.0 [facility] Comment on above: Order Comment: Relea se to patient->Immediate Performed By: #### L [id number] #### [address] Monocytes (Bld) [#/Vol] 0.6 10*3/uL Normal 0.3-0.9 [facility] Comment on above: Order Comment: Relea se to patient->Immediate Performed By: #### L [id number] #### [address] Monocytes/100 WBC (Bld) 6.7 % Normal [facility] Comment on above: Order Comment: Relea se to patient->Immediate Performed By: #### L [id number] #### [address] NEUTROPHIL ABS AUTO 7.4 K/uL Abnormal 2.0-7.3 [facility] Comment on above: Order Comment: Relea se to patient->Immediate Performed By: #### L [id number] #### [address] Neutrophils/100 WBC (Bld) 77.3 % Normal [facility] Comment on above: Order Comment: Relea se to patient->Immediate Performed By: #### L [id number] #### [address] Platelets (Bld) [#/Vol] 369 10*3/uL Normal 154-393 [facility] Comment on above: Order Comment: Relea se to patient->Immediate Performed By: #### L [id number] #### [address] RBC (Bld) [#/Vol] 4.01 10*6/uL Abnormal 4.30-5.86 [facility] Comment on above: Order Comment: Relea se to patient->Immediate Performed By: #### L [id number] #### [id number] WBC (Bld) [#/Vol] 9.6 10*3/uL Normal 4.0-10.5 [facility] Comment on above: Order Comment: Relea se to patient->Immediate Performed By: #### L [id number] #### [id number] CBC w/ Diff-Complete Blood C ouon 02-23-2025 Basophils (Bld) [#/Vol] 0.1 10*3/uL 0.0 - 0.1 K/uL [facility] Basophils/100 WBC (Bld) 0.7 % [facility] Eosinophils (Bld) [#/Vol] 0.2 10*3/uL 0.0 - 0.4 K/uL [facility] Eosinophils/100 WBC (Bld) 2.5 % [facility] Erythrocyte distribution width (RBC) [Ratio] 14.4 % 11.7 - 15.2 % [facility] Hematocrit (Bld) [Volume fraction] 36.2 % Abnormal 39.0 - 51.5 % [facility] Hemoglobin (Bld) [Mass/Vol] 12.4 g/dL Abnormal 13.1 - 17.6 g/dL [facility] Interpretation and review of laboratory results Abnormal [facility] Lymphocytes (Bld) [#/Vol] 1.2 10*3/uL 0.8 - 3.6 K/uL [facility] Lymphocytes/100 WBC (Bld) 12.8 % [facility] MCH (RBC) [Entitic mass] 30.9 pg 28.4 - 33.4 pg [facility] MCHC (RBC) [Mass/Vol] 34.2 g/dL 31.1 - 37.0 g/dL [facility] MCV (RBC) [Entitic vol] 90.3 fL 85.0 - 99.0 fl [facility] Monocytes (Bld) [#/Vol] 0.6 10*3/uL 0.3 - 0.9 K/uL [facility] Monocytes/100 WBC (Bld) 6.7 % [facility] Neutrophils (Bld) [#/Vol] 7.4 10*3/uL Abnormal 2.0 - 7.3 K/uL [facility] Neutrophils/100 WBC (Bld) 77.3 % [facility] Platelets (Bld) [#/Vol] 369 10*3/uL 154 - 393 K/uL [facility] RBC (Bld) [#/Vol] 4.01 10*6/uL Abnormal [facility] WBC (Bld) [#/Vol] 9.6 10*3/uL 4.0 - 10.5 K/uL [facility] ED Provider Noteson 02-24-20 ED Provider Notes Encounter Department : [facility] ED Provider Notes by Go Rice MD at 02/23/2025 4:48 AM Author: JOSE ALEJANDRO Villaltaervice: -Author Type: ED Physician Filed: 02/23/2025 6:07 AMDate of Service: 02/23/2025 4:48 AMStatus: Signed Textile Machine Mechanic: Go Rice MD (ED Physician) FINAL IMPRESSION(S) ICD-10-CM 1.Chest pain, unspecified type R07.9 2.Pain of right lower extremity M79.604oxyCODONE-acetamin ophen (PERCOCET) 5-325 mg tablet 3.Acute right-sided low back pain with right-sided sciatica M54.41oxyCODONE-acetamino phen (PERCOCET) 5-325 mg tablet DISPOSITION PLAN Discharge DISCHARGE MEDICATION(S) / CHANGES TO HOME MEDICATIONS Current Discharge Medication List START taking these medications Details oxyCODONE-acetaminophen (PERCOCET) 5-325 mg tabletTake 1 tablet by mouth every 6 hours as needed for Pain Qty: 12 tablet, Refills: 0 Associated Diagnoses: Pain of right lower extremity; Acute right-sided low back pain with right-sided sciatica CHIEF COMPLAINT Chief Complaint Patient presents with -Chest Pain -Leg Pain right TRIAGE NOTE: Pt ambulated into triage c/o chest pain and right leg pain. Pt states the chest pain is from gas. It started approx 1 hour ago. Pt states he twisted his leg when he turned to help someone. Pt states pain is the back of his knee which also started approx an hour ago. HPI / RELEVANT DOLORES Mari is a 70 y.o. male in bed IR ED 10/22 who presents to the ED with multiple complaints. States he is having chest pain. States he is also having back pain. Has pain all the way down his right leg. States that he is also having pain behind his right knee. He states that he was [facility] the [facility] He states that he fell twice off of the ladder. Has not take anything for his symptoms. Symptoms started approximately 3 hours prior to arrival when he fell. PAST MEDICAL HISTORY / FAMILY HISTORY History reviewed. No pertinent past medical history. No family history on file. Above past medical conditions reviewed and verified by me. SOCIAL HISTORY Social History[1] Above social elements reviewed and verified by me. SURGICAL HISTORY History reviewed. No pertinent surgical history. CURRENT MEDICATIONS Outpatient Medications Marked as Taking for the 02/23/25 encounter (Hospital Encounter) MedicationSigDispenseRefi ll -oxyCODONE-acetaminophen (PERCOCET) 5-325 mg tabletTake 1 tablet by mouth every 6 hours as needed for Pain12 tablet0 ALLERGIES Allergies AllergenReactions -Adhesive -Ibuprofen -Ultram [Tramadol] -Vicodin [Hydrocodone-Acetaminophe n] PERTINENT PHYSICAL EXAM VITAL SIGNS: ED Triage Vitals [02/23/25 0420] BP(!) 157/80 Temp97.7 ?F (36.5 ?C) Pulse60 Resp16 RcX425 % [place]107 lb (72.1 kg) [place]o Coma Scale Score15 BMI (Calculated)22.2 Alert, resting, heart is regular rate and rhythm, lungs are clear, abdomen soft nontender, no chest tenderness or crepitus, diffuse tenderness with palpation to the bilateral lower lumbar musculature, no midline tenderness, distal pulses intact, diffuse tenderness with palpation to the right posterior thigh and leg, no gross bony deformity EKG Results for orders placed or performed during the hospital encounter of 02/23/25 EKG Standard 12 lead ResultValueRef Range Heart Ifqb98ljo RR INTERVAL1,056ms VT Tcuuvtca813qp QRSD Okouhdsk95in QT Ikeusqve815mi QTc Xajitvkq924nu QRS Provencal-20deg T Wave Duui54alm REPORT- NORMAL ECG - REPORTSinus rhythm Interpreting Phys Confirmed by: Go Rice) 23-Feb-2025 04:31:11 RADIOLOGY I have personally visualized the images and my interpretation is no acute chest abnormality I reviewed the radiologist interpretation: Results for orders placed or performed during the hospital encounter of 02/23/25 [place] [id number] Narrative [place] [id number] 02/23/2025 5:51 AM Reason for exam:leg pain amd swelling Reason for Exam: leg pain amd swelling. Duplex ultrasound examination of the deep venous system of the right lower extremity including evaluation of the common femoral vein, femoral vein, popliteal vein, posterior tibial veins, and peroneal veins. It demonstrated good compressibility and augmentation without reflux throughout. No luminal thrombus was demonstrated. Impression 1. NO EVIDENCE OF DEEP VENOUS THROMBOSIS IN THE RIGHT LOWER EXTREMITY. 2. NO REFLUX WAS DEMONSTRATED. Workstation ID:[id number] Electronically Signed by: Jun Bro M.D., 02/23/2025 5:59 AM XR-CHEST PORTABLE STAT Narrative XR-CHEST PORTABLE STAT [id number] 02/23/2025 5:04 AM History: chest pain History: Chest Pain; Leg Pain. Number of Series/Images: 1. Comparison: None Findings: Single mobile view of the chest demonstrates normal cardiomediastinal silhouette with midline trachea and clear ry (more content not included)... Normal [facility] EKG STANDARD 12 LEADon 02-23 EKG STANDARD 12 LEAD HEART RATE= 57 bpm RR Interval= 1056 ms P-R Interval= 196 ms QRSD Interval= 80 ms QT Interval= 396 ms QTcB= 385 ms QRS Provencal= -20 deg T Wave Provencal= 61 deg Report= - NORMAL ECG - Report= Sinus rhythm INTERPRETING PHYS= Confirmed by: Go Rice) 23-Feb-2025 04:31:11 Normal [facility] EKG Standard 12 leadon 02-23 Heart rate 57 /min bpm [facility] Interpreting Phys Confirmed by: Go Adame) 23-Feb-2025 04:31:11 [facility] VT Interval 196 ms [facility] QRS Provencal -20 deg [facility] QRSD Interval 80 ms [facility] QT Interval 396 ms [facility] QTc Interval 385 ms [facility] REPORT - NORMAL ECG - [facility] REPORT Sinus rhythm [facility] RR INTERVAL 1056 ms [facility] T Wave Provencal [address] [facility] HS TROPONIN Ion 02-23-2025 HS TROPONIN I 11 pg/mL Normal <20 [facility] Comment on above: Order Comment: The A ccess high sensitivity troponin assay is not intended to be used in isolation; results should be interpreted in conjunction with other diagnostic tests and clinical information. Is this patient low risk* or onset of CP >3 Hours?->Yes Release to patient->Immediate Performed By: #### L [id number] #### [address] HS Troponin Ion 02-23-2025 Interpretation and review of laboratory results Normal [facility] Troponin I.cardiac High sensitivity method [Mass/Vol] 11 pg/mL NINF - 20 pg/mL [facility] The Access high sensitivity troponin assay is not intended to be used in isolation; results should be interpreted in conjunction with other diagnostic tests and clinical information. [facility] Portable XR Chest Viewson PULMONARY HYPERINFLA TION WITH NO ACUTE PROCESS SEEN. Workstation ID:[email or web address] Electronically Signed by: Jun Bro M.D., 02/23/2025 5:05 AM [employer] XR-CHEST PORTABLE ST AT [id number] 02/23/2025 5:04 AM History: chest pain History: Chest Pain; Leg Pain. Number of Series/Images: 1. Comparison: None Findings: Single mobile view of the chest demonstrates normal cardiomediastinal silhouette with midline trachea and clear lung barry bilaterally. Lungs appear somewhat hyperinflated. [facility] Jun Bro MD - 02/23/2025 XR-CHEST PORTABLE STAT [id number] 02/23/2025 5:04 AM History: chest pain History: Chest Pain; Leg Pain. Number of Series/Images: 1. Comparison: None Findings: Single mobile view of the chest demonstrates normal cardiomediastinal silhouette with midline trachea and clear lung barry bilaterally. Lungs appear somewhat hyperinflated. IMPRESSION: PULMONARY HYPERINFLATION WITH NO ACUTE PROCESS SEEN. Workstation ID:[email or web address] Electronically Signed by: Jun Bro M.D., 02/23/2025 5:05 AM [facility] Radiology Study observation (narrative) [facility] Portable XR Chest ViewsOrder ed By: Jun Bro on 02-23-2025 [facility] Work Phone: US.doppler Lower extremity v ein - righton 02-23-2025 1. NO EVIDENCE OF DE EP VENOUS THROMBOSIS IN THE RIGHT LOWER EXTREMITY. 2. NO REFLUX WAS DEMONSTRATED. Workstation ID:[id number] Electronically Signed by: Jun Bro M.D., 02/23/2025 5:59 AM [facility] [place] [id number] 02/23/2025 5:51 AM Reason for exam:leg pain amd swelling Reason for Exam: leg pain amd swelling. Duplex ultrasound examination of the deep venous system of the right lower extremity including evaluation of the common femoral vein, femoral vein, popliteal vein, posterior tibial veins, and peroneal veins. It demonstrated good compressibility and augmentation without reflux throughout. No luminal thrombus was demonstrated. [facility] [employer] Jun Bro MD - 02/23/2025 [place] [id number] 02/23/2025 5:51 AM Reason for exam:leg pain amd swelling Reason for Exam: leg pain amd swelling. Duplex ultrasound examination of the deep venous system of the right lower extremity including evaluation of the common femoral vein, femoral vein, popliteal vein, posterior tibial veins, and peroneal veins. It demonstrated good compressibility and augmentation without reflux throughout. No luminal thrombus was demonstrated. IMPRESSION: 1. NO EVIDENCE OF DEEP VENOUS THROMBOSIS IN THE RIGHT LOWER EXTREMITY. 2. NO REFLUX WAS DEMONSTRATED. Workstation ID:[id number] Electronically Signed by: Jun Bro M.D., 02/23/2025 5:[address] [facility] Radiology Study observation (narrative) [facility] VAS-DUP VEIN LOWER DVT RT [id number] 02-23-2025 [place] [id number] A result will not be generated for this exam. [place] [id number] 02/23/2025 5:51 AM Reason for exam:leg pain amd swelling Reason for Exam: leg pain amd swelling. Duplex ultrasound examination of the deep venous system of the right lower extremity including evaluation of the common femoral vein, femoral vein, popliteal vein, posterior tibial veins, and peroneal veins. It demonstrated good compressibility and augmentation without reflux throughout. No luminal thrombus was demonstrated. IMPRESSION: IMPRESSION: 1. NO EVIDENCE OF DEEP VENOUS THROMBOSIS IN THE RIGHT LOWER EXTREMITY. 2. NO REFLUX WAS DEMONSTRATED. Workstation ID:[id number] Electronically Signed by: Jun Bro M.D., 02/23/2025 5:59 AM Normal [facility] XR-CHEST PORTABLE [place] XR-CHEST PORTABLE STAT A result will not be generated for this exam. XR-CHEST PORTABLE STAT [id number] 02/23/2025 5:04 AM History: chest pain History: Chest Pain; Leg Pain. Number of Series/Images: 1. Comparison: None Findings: Single mobile view of the chest demonstrates normal cardiomediastinal silhouette with midline trachea and clear lung barry bilaterally. Lungs appear somewhat hyperinflated. IMPRESSION: IMPRESSION: PULMONARY HYPERINFLATION WITH NO ACUTE PROCESS SEEN. Workstation ID:[id number] Electronically Signed by: Jun Bro M.D., 02/23/2025 5:05 AM [facility] MRA/MRI BRAIN W/O CONTRASTon 01-28-2025 MRA/MRI BRAIN W/O CONTRAST ORIGINAL EXAMINATION: MRI OF THE BRAIN WITHOUT CONTRAST AND MRA HEAD WITHOUT CONTRAST 01/23/2025 11:35 am TECHNIQUE: Multiplanar multisequence MRI of the brain was performed without the administration of intravenous contrast. MRA of the head was performed utilizing [id number] imaging with MIP images. No intravenous contrast was administered. COMPARISON: None. HISTORY: ORDERING SYSTEM PROVIDED HISTORY: Reason for Exam: headache, hx of aneurysm FINDINGS: MRI BRAIN: INTRACRANIAL STRUCTURES/VENTRICLES: There is no acute infarct. No mass effect or midline shift. No evidence of an acute intracranial hemorrhage. The ventricles and sulci are normal in size and configuration. The sellar/suprasellar regions appear unremarkable. The normal signal voids within the major intracranial vessels appear maintained. ORBITS: The visualized portion of the orbits demonstrate no acute abnormality. SINUSES: Mild mucosal thickening is noted in the ethmoid air cells. BONES/SOFT TISSUES: The bone marrow signal intensity appears normal. The soft tissues demonstrate no acute abnormality. MRA HEAD: ANTERIOR CIRCULATION: No significant stenosis of the intracranial internal carotid, anterior cerebral, or middle cerebral arteries. There is origin of both posterior cerebral arteries. POSTERIOR CIRCULATION: No significant stenosis of the vertebral, basilar, or posterior cerebral arteries. ANEURYSM: No intracranial aneurysm is seen. IMPRESSION: Unremarkable MRI examination of the brain. No aneurysm is identified on today's examination. Interpreted by: Nicoáls Hurtado Preliminary Report By: Nicolás Hurtado Electronically signed By Nicolás Hurtado Dictated Date: 01/28/2025 5:12:43 AM Prelim Date: 01/28/2025 5:17:06 AM Sign Date: 01/28/2025 5:17:06 AM Ordering Provider: EUGENIO Vickers [facility] MRI KIDNEYon 01-27-2025 MRI KIDNEY ORIGINAL EXAMINATION: MRI OF THE ABDOMEN WITH AND WITHOUT CONTRAST, 01/26/2025 2:19 pm TECHNIQUE: Multiplanar multisequence MRI of the abdomen was performed with and without the administration of intravenous contrast. COMPARISON: CT abdomen pelvis 03/10/2025 and 02/21/2021. HISTORY: ORDERING SYSTEM PROVIDED HISTORY: Reason for Exam: CT seen renal lesion right kidney, slighly enalarged, MRI for further evaluation. FINDINGS: Right kidney: Normal size, enhancement, and excretion. Inferior pole 1.9 cm renal lesion with intermediate intrinsic T1 signal. This finding does not demonstrate any septations, nodularity, or enhancement on postcontrast imaging. There is no signal dropout on in and out of phase imaging. Other renal cysts are noted. Punctate right renal calculus is better demonstrated on prior CT imaging. Left kidney: Normal size, enhancement, and excretion. Scattered renal cysts. No renal masses. Vasculature: Patent renal arteries. No filling defects in the renal veins or vena cava. Ureters: Normal. No obstructive uropathy. Accessory organs: Normal liver, gallbladder, pancreas, spleen, and adrenal glands. Lymph Nodes and Soft Tissues: No lymphadenopathy. Perirenal and pararenal spaces are normal. IMPRESSION: Multiple right renal cysts; index inferior pole right renal lesion seen on prior CT is most compatible with a hemorrhagic or proteinaceous cyst and is considered benign. No further follow-up imaging is required. I have personally reviewed the images of this examination and agree with the resident's findings and interpretation. Interpreted by: Eugenio Rendon MD Preliminary Report By: Claudia Anderson Electronically signed By Eugenio Rendon MD Dictated Date: 01/27/2025 8:20:56 AM Prelim Date: 01/27/2025 1:15:03 PM Sign Date: 01/27/2025 1:15:03 PM Ordering Provider: EUGENIO Vickers [facility] CT ABDOMEN/PELVIS W/O REBEL [place] 01-08-2025 CT ABDOMEN/PELVIS W/O CONTRAST ORIGINAL EXAMINATION: CT OF THE ABDOMEN AND PELVIS WITHOUT CONTRAST 01/08/2025 2:29 pm TECHNIQUE: CT of the abdomen and pelvis was performed without the administration of intravenous contrast. Multiplanar reformatted images are provided for review. Automated exposure control, iterative reconstruction, and/or weight based adjustment of the mA/kV was utilized to reduce the radiation dose to as low as reasonably achievable. COMPARISON: 12/22/2020 and 07/24/2022 HISTORY: ORDERING SYSTEM PROVIDED HISTORY: Reason for Exam: nephrolithiasis, hydronephrosis HEMATURIA AND RIGHT FLANK PAIN FINDINGS: Lower Chest: Lingular calcified granuloma. Coronary artery atherosclerotic calcifications/stents. Organs: Punctate calcified hepatic and splenic granulomas. The adrenal glands and pancreas are unremarkable. The gallbladder is collapsed. Punctate nonobstructive right renal calculi. No hydronephrosis. Small bilateral simple renal cysts. Interval enlargement of a right inferior pole 1.9 cm renal lesion with a mean density of 37 Hounsfield units. GI/Bowel: Fluid-filled distal esophagus can be seen with dysmotility/reflux. No obstruction. Normal appendix. Mild colonic diverticulosis without diverticulitis. Pelvis: The prostate is enlarged indenting the base the bladder compatible with BPH. The bladder is nondistended although grossly unremarkable. Partially imaged large left hydrocele. Peritoneum/Retroperitoneu m: No enlarged lymph nodes. No free intraperitoneal air. The nonaneurysmal abdominal aorta measures up to 2.8 cm. Bones/Soft Tissues: Degenerative changes. Chronic appearing although technically age indeterminate compression deformities of L2 and L4. IMPRESSION: Punctate nonobstructing right nephrolithiasis. No hydronephrosis. Interval enlargement of a indeterminate right inferior pole 1.9 cm renal lesion. Further evaluation with nonemergent MRI renal protocol is recommended. Partially imaged large left hydrocele. Chronic appearing although technically age indeterminate compression deformities of L2 and L4. I have personally reviewed the images of this examination and agree with the resident's finding and interpretation. Interpreted by: Eugenio Rendon MD Preliminary Report By: Haile Castillo Electronically signed By Eugenio Rendon MD Dictated Date: 01/08/2025 2:31:46 PM Prelim Date: 01/08/2025 2:44:48 PM Sign Date: 01/08/2025 4:19:21 PM Ordering Provider: EUGENIO MAYEN Normal [facility] UAon 01-08-2025 Color (U) Yellow Normal [facility] Comment on above: Order Comment: run c ulture Performed By: #### U A ####[place] [address] [place] [address] Glucose (U) [Mass/Vol] Negative Normal Negative [facility] Comment on above: Order Comment: run c ulture Performed By: #### U A ####[place] [address] Ketones Ql (U) Negative Normal Negative [facility] Comment on above: Order Comment: run c ulture Performed By: #### U A ####[place] [address] UA Appear Clear Normal Clear [facility] Comment on above: Order Comment: run c ulture Performed By: #### U A ####[place] [address] [place], [place] [address] UA Blood Trace Abnormal Negative [facility] Comment on above: Order Comment: run c ulture Performed By: #### U A ####[facility] [place], [place] [address] UA Leuk Est Negative Normal Negative [facility] Comment on above: Order Comment: run c ulture Performed By: #### U A ####[facility] [place] [address] UA Nitrite Negative Normal Negative [facility] Comment on above: Order Comment: run c ulture Performed By: #### U A ####[place] [address] UA pH 7.0 Normal 5.0 - 8.0 [facility] Comment on above: Order Comment: run c ulture Performed By: #### U A ####[facility] [place], [place] [address] UA Protein Negative Normal Negative [facility] Comment on above: Order Comment: run c ulture Performed By: #### U A ####[address] [place] [address] UA Spec Grav 1.020 Normal 1.015-1.02 5 [facility] Comment on above: Order Comment: run c ulture Performed By: #### U A ####[place] [address] [place] [address] UA Specimen Type Clean Catch Normal [facility] Comment on above: Order Comment: run c ulture Performed By: #### U A ####[place] [address] [place] [address] UA Urobilinogen 0.2 E.U./dL Normal 0.2-1.0 [facility] Comment on above: Order Comment: run c ulture Performed By: #### U A ####[place] [address] [place] [address] Urobilinogen (U) [Mass/Vol] Negative Normal Negative [facility] Comment on above: Order Comment: run c ulture Performed By: #### U A ####[place] [address] [place] [address] Bilirubin Test strip Ql (U)O rdered By: Irene Franks on 01-03-2025 Bilirubin Ql (U) Negative Negative [facility] Emergency Department Summary on 01-03-2025 Emergency Department Summary [facility] Medical Records Department [address] [place] [address] Emergency Department Summary 01/03/25 MR#: [id number] Acct: [id number] Name: WINSTON MARI Rep #: [id number] : 1955 69 From: Irene PRINCE PCP: Dr. Eugenio Mayen, DO Status:REG ER Location: ED HPI History of Present Illness Chief Complaint: Flank Pain Narrative Narrative: 69-year-old male presents with right flank pain that started 4 days ago after waking up. He had a small amount of dysuria. No fever, chills, vomiting, or hematuria. He was seen here 2 days after onset on 01/01 and had a negative CT scan of the abdomen/pelvis and was diagnosed with a muscle strain and has been taking Tylenol and the prescribed diazepam. It helps but he still has sharp right flank pain that worsens with urination. States he has not been drinking fluids as much because he does not want to urinate. He has no hematuria or penile discharge. No fever chills or vomiting. [facility] Medical History Left rotator cuff tear Anemia GERD (gastroesophageal reflux disease) Left shoulder pain Hemorrhoid Epilepsy Sciatica High cholesterol Home Medications ???Medication ???Instructions ???Recorded ???Last Taken ???Type gabapentin 300 mg capsule 300 mg PO 4X/DAY 04/02/22 Unknown History hydrocortisone acetate 25 mg 25 mg VT QHS #12 ea 04/27/22 Unkno wn Rx rectal suppository (Anusol-HC) atorvastatin 40 mg tablet (Lipitor) 40 mg PO QHS 01/13/23 Unknown H istory polyethylene glycol 3350 17 17 g PO DAILY #119 grams 05/31/23 Unknown Rx gram/dose oral powder (ClearLax) cyclobenzaprine 5 mg tablet 5 mg PO TID PRN muscle spasm 4 Unknown Rx days #12 tabs clopidogrel 75 mg tablet 75 mg PO QDAY 11/13/24 Unknown His tory duloxetine 30 mg capsule,delayed See Rx Instructions PO QDAY Unknown History release ferrous sulfate 325 mg (65 mg 325 mg PO QDAY 11/13/24 Unknown Hi story iron) tablet pantoprazole 40 mg tablet,delayed 40 mg PO QDAY 11/13/24 Unknown Hi story release ondansetron 4 mg disintegrating 4 mg PO Q8H PRN PRN Nausea #10 tab s 11/25/24 Unknown Rx tablet oxycodone-acetaminophen 5 mg-325 1 tab PO Q8H PRN pain 3 days #10 0 11/25/24 Unknown Rx mg tablet (Percocet) tabs diazepam 5 mg tablet 5 mg PO Q8 PRN Muscle Spasm #10 Unknown Rx tabs Allergy/AdvReac Type Severity Reaction Status Date / Time adhesive tape (tape) AdvReac Rash Verified 01/03/25 16:39 hydrocodone (From [place]) AdvReac Upset Verified 01/03/25 16:39 Stomach ibuprofen AdvReac Upset Verified 01/03/25 16:39 Stomach ketorolac (From Toradol) AdvReac Rash Verified 01/03/25 16:39 meloxicam (From Mobic) AdvReac Muscle Verified 01/03/25 16:39 weakness naproxen AdvReac Rash Verified 01/03/25 16:39 tramadol AdvReac Upset Verified 01/03/25 16:39 Stomach Family History Other Cancer Diabetes Heart disease Surgical History Leg fracture, left S/P clamping of cerebral aneurysm Social History household members: significant other Smoking Status: Former smoker alcohol intake: former substance use type: does not use ROS ROS ED ROS Narrative Constitutional: Negative for fever, chills, malaise. GI: Negative for abdominal pain, nausea, vomiting, diarrhea,. : Negative for dysuria, hematuria or frequency. EXAM Physical Exam Narrative Exam Narrative: CONST: Patient sitting in no acute distress. EYES: Normal inspection. NECK: Normal inspection. RESP: No respiratory distress, CTAB. CVS: Regular rate and rhythm, no murmur, no gallop. ABD: Soft and nontender, no guarding or rebound, nondistended. Back: Normal inspection, no midline tenderness or step-offs. Reproducible tenderness over right thoracic and lumbar musculature. SKIN: Color normal, no rash, warm, dry, intact. No zoster. EXTREMITIES: Normal appearance, no pedal edema. NEURO: Alert and answering questions appropriately. PSYCH: Normal affect. Const Vital Signs: 01/03/25 16:39 Temperature 97 F L Temperature Source Temporal Pulse Rate 68 Respiratory Rate 15 Blood Pressure 146/82 H Blood Pressure Mean 103 Pulse Ox 100 Oxygen Delivery Method Room Air Physical Exam Const Vital Signs: 01/03/25 16:39 Temperature 97 F L Temperature Source Temporal Pulse Rate 68 Respiratory Rate 15 Blood Pressure 146/82 H Blood Pressure Mean 103 Pulse Ox 100 Oxygen Delivery Method Room Air MDM MDM MDM Narrative Medical decision making narrative: 69-year-old male has (more content not included)... Normal [facility] Epithelial cells.squamous LM Ql (Urine sed)Ordered By: Irene Franks on 01-03-2025 Epithelial cells.squamous LM.HPF (Urine sed) [#/Area] 0 /[HPF] 0-5 [facility] Glucose Ql (U)Ordered By: Mariely Franks on 01-03-2025 Urine Glucose (UA) Normal mg/dl Normal [facility] Ketones Test strip Ql (U)Ord ered By: Irene Franks on 01-03-2025 Ketones Ql (U) Negative Negative [facility] Microscopic analysis of urin e for red blood cells (RBC)Ordered By: Irene Franks on 01-03-2025 Microscopic analysis of urine for red blood cells (RBC) 0-5 SEEN /hpf 0-5 [facility] Urine RBC 0-5 SEEN /hpf 0-5 [facility] Mucus LM Ql (Urine sed)Order ed By: Irene Franks on 01-03-2025 Mucus Ql (Urine sed) 1+ /hpf [facility] Nitrite Test strip Ql (U)Ord ered By: Irene Franks on 01-03-2025 Nitrite Ql (U) Negative Negative [facility] Protein Test strip Ql (U)Ord ered By: Irene Franks on 01-03-2025 Protein Ql (U) Negative Negative [facility] Squamous epithelial cells de tection in urine sediment by light microscopyOrdered By: Irene Franks on 01-03-2025 Epithelial cells.squamous LM Ql (Urine sed) 0-5 SEEN /hpf 0-5 [facility] Transitional cells LM Ql (Ur ine sed)Ordered By: Irene Franks on 01-03-2025 Urine Transitional Epithelial Cells 0-5 SEEN /hpf 0-5 [facility] Transitional cells detection in urine sediment by light microscopyOrdered By: Irene Franks on 01-03-2025 Transitional cells LM Ql (Urine sed) 0-5 SEEN /hpf 0-5 [facility] Urinalysis, Completeon 01-03 Mucus Ql (Urine sed) 1+ /hpf Normal [facility] Comment on above: Order Comment: ZANDRA CTOR TO SPECIFY Performed By: #### L 400.0001 #### [facility] [address] [place], [address] BACTERIA 2+ /hpf Normal None Seen [facility] Comment on above: Order Comment: ZANDRA CTOR TO SPECIFY Performed By: #### L 400.0001 #### [facility] [address] [place], [address] EPI,SQUAMOUS 0-5 SEEN Normal 0-5 [facility] Comment on above: Order Comment: ZANDRA CTOR TO SPECIFY Performed By: #### L 400.0001 #### [facility] [address] [place], [address] EPI,TRANSITION 0-5 SEEN Normal 0-5 [facility] Comment on above: Order Comment: ZANDRA CTOR TO SPECIFY Performed By: #### L 400.0001 #### [facility] [address] [place], [address] RBC 0-5 SEEN Normal 0-5 [facility] Comment on above: Order Comment: ZANDRA CTOR TO SPECIFY Performed By: #### L 400.0001 #### [facility] [address] [place], [address] WBC 0 SEEN Normal 0-5 [facility] Comment on above: Order Comment: ZANDRA CTOR TO SPECIFY Performed By: #### L 400.0001 #### [facility] [address] [place], [address] Urine blood detectionOrdered By: Irene Franks on 01-03-2025 Urine Occult Blood 25 /ul High Negative [facility] Urine clarityOrdered By: Nolvia Franks on 01-03-2025 Clarity (U) Clear Clear [facility] Urine color determinationOrd ered By: Irene Franks on 01-03-2025 Color (U) Yellow Yellow [facility] Urine glucose detectionOrder ed By: Irene Villafanaant on 01-03-2025 Glucose Ql (U) Normal mg/dl Normal [facility] Urine leukocyte esterase det ection by dipstickOrdered By: Irene Tiny on 01-03-2025 Leukocyte esterase Test strip Ql (U) Negative Negative [facility] Urine pHOrdered By: Irene cain on 01-03-2025 pH (U) 7.0 [pH] 5.0 - 8.0 [facility] Urine sediment bacteria coun t by microscopy (number/high power field)Ordered By: Irene Franks on 01-03-2025 Bacteria LM.HPF (Urine sed) [#/Area] 2 /[HPF] None Seen [facility] Urine specific gravity measu rementOrdered By: Irenenikky Franks on 01-03-2025 Specific gravity (U) [Rel density] 1.010 1.002-1.03 0 [facility] Urine urobilinogen measureme ntOrdered By: Irenenikky Franks on 01-03-2025 Urobilinogen Ql (U) 1 mg/dl High Normal [facility] Urobilinogen Ql (U)Ordered B y: Irene Tiny on 01-03-2025 Urobilinogen (U) [Mass/Vol] 1 mg/dL High Normal [facility] White blood cell countOrdere d By: Irene Franks on 01-03-2025 Urine WBC 0 SEEN /hpf 0-5 [facility] White blood cell count 0 SEEN /hpf 0-5 [facility] Abdomen/Pelvis without Conto n 01-01-2025 Abdomen/Pelvis without Cont [facility] Imaging Services [address] [place] [address] Abdomen/Pelvis without Cont MR#: [id number] Acct: [id number] Name: WINSTON MARI Rep #: [id number] : 1955 M 69 From: Patricia Del Cid MD PCP: Dr. Eugenio Mayen, DO Status: REG ER Study: Abdomen/Pelvis without Cont Date of Exam: 12/20 01/13 Exam# [id number] Ordering Dr: Dean Del Cid DO EXAM: CT Abdomen and Pelvis Without Intravenous Contrast CLINICAL INDICATION: KIDNEY STONE TECHNIQUE: Axial computed tomography images of the abdomen and pelvis without intravenous contrast. This CT exam was performed using one or more of the following dose reduction techniques: automated exposure control, adjustment of the mA and/or kV according to patient size, and/or use of iterative reconstruction technique. COMPARISON: CT Abdomen Pelvis dated 11/05/2024 FINDINGS: LUNG BASES: Unremarkable. No mass. No consolidation. ABDOMEN: LIVER: Hepatomegaly with fatty infiltration. GALLBLADDER AND BILE DUCTS: Unremarkable. No calcified stones. No ductal dilation. PANCREAS: Unremarkable. No ductal dilation. SPLEEN: Pelvic calculi in the spleen. ADRENALS: Unremarkable. No mass. KIDNEYS AND URETERS: 1.3 cm hyperdense lesion of the right kidney, likely cyst. No stones within either kidney. No hydronephrosis. STOMACH AND BOWEL: Fecal retention in the colon consistent with constipation. Colonic diverticulosis without acute diverticulitis. No obstruction. PELVIS: APPENDIX: No findings to suggest acute appendicitis. BLADDER: Unremarkable. No stones. REPRODUCTIVE: Bilateral hydroceles, larger on the left. ABDOMEN and PELVIS: INTRAPERITONEAL SPACE: Unremarkable. No free air. No significant fluid collection. BONES/JOINTS: No acute fracture. No dislocation. SOFT TISSUES: Umbilical hernia containing fat. VASCULATURE: Scattered calcified atherosclerotic disease of aorta. No abdominal aortic aneurysm. LYMPH NODES: Unremarkable. No enlarged lymph nodes. CT/Abdomen/Pelvis without Cont IMPRESSION: 1. Bilateral hydroceles, larger on the left. 2. Hepatomegaly with fatty infiltration. 3. Fecal retention in the colon consistent with constipation. 4. Umbilical hernia containing fat. 5. No obstructive uropathy. 6. Colonic diverticulosis without acute diverticulitis. Reading Location: [facility] CC: Dr. Eugenio Mayen DO; Dr. Dean Del Cid DO 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: Signed Normal [facility] Absolute lymphocyte countOrd ered By: Dean Del Cid on 01-01-2025 Lymphocytes Auto (Unsp spec) [#/Vol] 1.67 10*3/uL 0.83-4.51 [facility] Absolute neutrophil countOrd ered By: Dean Del Cid on 01-01-2025 Neutrophils (Bld) [#/Vol] 3.1 10*3/uL 2.0-7.7 [facility] Anion gap in Serum or Plasma Ordered By: Dean Del Cid on 01-01-2025 Anion gap [Moles/Vol] 8 mmol/L 5-15 [facility] Automated lymphocyte count a s percentage of total leukocytesOrdered By: Dean Del Cid on 01-01-2025 Lymphocytes/100 WBC Auto (Unsp spec) 28.4 % [facility] BUN/creatinine ratioOrdered By: Dean Del Cid on 01-01-2025 Urea nitrogen/Creatinine [Mass ratio] 22.3 mg/mg High - [facility] Basic Metabolic Profile (BMP )on 01-01-2025 BUN/CRE 22.3 RATIO High 08-10 [facility] Comment on above: Performed By: #### L 500.2500, L100.0100 ####[facility] [address] [place], [address] Calcium [Mass/Vol] 9.0 mg/dL Normal 7.6-11.0 [facility] Comment on above: Performed By: #### L 500.2500, L100.0100 ####[facility] [address] [place], [address] Chloride [Moles/Vol] 104 mmol/L Normal 98-108 [facility] Comment on above: Performed By: #### L 500.2500, L100.0100 ####[facility] [address] [place], [address] CO2 [Moles/Vol] 25.1 mmol/L Normal 21.0-32.0 [facility] Comment on above: Performed By: #### L 500.2500, L100.0100 ####[facility] [address] [place], [address] Creatinine [Mass/Vol] 0.93 mg/dL Normal 0.70-1.20 [facility] Comment on above: Performed By: #### L 500.2500, L100.0100 ####[facility] [address] [place], [address] ECRCL 77.55 ml/min Normal 50-250 [facility] Comment on above: Performed By: #### L 500.2500, L100.0100 ####[facility] [address] [place], [address] GAP 8 Normal 5-15 [facility] Comment on above: Performed By: #### L 500.2500, L100.0100 ####[facility] [address] [place], [address] GFR/1.73 sq M.predicted among non-blacks MDRD (S/P/Bld) [Vol rate/Area] 90 mL/min/{1.73_m2} Normal >60 [facility] Comment on above: Result Comment: mL/m in/1.73m2 CKD-EPI Creatinine Equation (2020) Performed By: #### L 500.2500, L100.0100 ####[facility] [address] [place], [address] Glucose [Mass/Vol] 95 mg/dL Normal 70-99 [facility] Comment on above: Performed By: #### L 500.2500, L100.0100 ####[facility] [address] [place], [address] Potassium [Moles/Vol] 4.4 mmol/L Normal 3.3-5.1 [facility] Comment on above: Performed By: #### L 500.2500, L100.0100 ####[facility] [address] [place], [address] Sodium [Moles/Vol] 138 mmol/L Normal 133-145 [facility] Comment on above: Performed By: #### L 500.2500, L100.0100 ####[facility] [address] [place], [address] Urea nitrogen [Mass/Vol] 21 mg/dL High 4-19 [facility] Comment on above: Performed By: #### L 500.2500, L100.0100 ####[facility] [address] [place], [address] Basophil percentageOrdered B y: Dean Del Cid on 01-01-2025 Basophils/100 WBC (Bld) 1.2 % High 0-1 [facility] Bilirubin Test strip Ql (U)O rdered By: Dean Del Cid on 01-01-2025 Bilirubin Ql (U) Negative Negative [facility] CBC W/Diff, Automatedon 12-20 Absolute Lymph 1.67 X10 3/uL Normal 0.83-4.51 [facility] Comment on above: Performed By: #### L 500.2500, L100.0100 ####[facility] [address] [place], [address] Absolute Neut 3.1 X10 3/uL Normal 2.0-7.7 [facility] Comment on above: Performed By: #### L 500.2500, L100.0100 ####[facility] [address] [place], [address] Basophils/100 WBC (Bld) 1.2 % High 0-1 [facility] Comment on above: Performed By: #### L 500.2500, L100.0100 ####[facility] [address] [place], [address] Eosinophils/100 WBC (Bld) 5.1 % High 0-5 [facility] Comment on above: Performed By: #### L 500.2500, L100.0100 ####[facility] [address] [place], [address] Erythrocyte distribution width (RBC) [Ratio] 14.3 % Normal 11.6-14.6 [facility] Comment on above: Performed By: #### L 500.2500, L100.0100 ####[facility] [address] [place], [address] Hematocrit (Bld) [Volume fraction] 37.1 % Low 40-54 [facility] Comment on above: Performed By: #### L 500.2500, L100.0100 ####[facility] [address] [place], [address] Hemoglobin (Bld) [Mass/Vol] 12.2 g/dL Low 13.0-16.5 [facility] Comment on above: Performed By: #### L 500.2500, L100.0100 ####[facility] [address] [place], [address] IG% 0.300 Normal 0.0-0.9 [facility] Comment on above: Result Comment: IG% - Immature Granulocytes (promyelocytes, myelocytes and metamyelocytes) > 1% indicates that a LEFT SHIFT is Present. Performed By: #### L 500.2500, L100.0100 ####[facility] [address] [place], [address] Lymphocytes/100 WBC (Bld) 28.4 % Normal 19-41 [facility] Comment on above: Performed By: #### L 500.2500, L100.0100 ####[facility] [address] [place], [address] MCH (RBC) [Entitic mass] 30.0 pg Normal 27.0-32.0 [facility] Comment on above: Performed By: #### L 500.2500, L100.0100 ####[facility] [address] [place], [address] MCHC (RBC) [Mass/Vol] 32.9 g/dL Normal 32-36 [facility] Comment on above: Performed By: #### L 500.2500, L100.0100 ####[facility] [address] [place], [address] MCV (RBC) [Entitic vol] 91.4 fL Normal 80-94 [facility] Comment on above: Performed By: #### L 500.2500, L100.0100 ####[facility] [address] [place], [address] Monocytes/100 WBC (Bld) 11.6 % High 0-10 [facility] Comment on above: Performed By: #### L 500.2500, L100.0100 ####[facility] [address] [place], [address] Neutrophils/100 WBC (Bld) 53.4 % Normal 47-70 [facility] Comment on above: Performed By: #### L 500.2500, L100.0100 ####[facility] [address] [place], [address] Nucleated RBC (Bld) [#/Vol] 0 10*3/uL Normal 0-5 [facility] Comment on above: Performed By: #### L 500.2500, L100.0100 ####[facility] [address] [place], [address] Platelet mean volume (Bld) [Entitic vol] 8.3 fL Normal 6.2-12.0 [facility] Comment on above: Performed By: #### L 500.2500, L100.0100 ####[facility] [address] [place], [address] Platelets (Bld) [#/Vol] 327 10*3/uL Normal 150-450 [facility] Comment on above: Performed By: #### L 500.2500, L100.0100 ####[facility] [address] [place], [address] RBC (Bld) [#/Vol] 4.06 10*6/uL Low 4.6-6.2 [facility] Comment on above: Performed By: #### L 500.2500, L100.0100 ####[facility] [address] [place], [address] RDW SD 48.0 fl High 35.1-43.9 [facility] Comment on above: Performed By: #### L 500.2500, L100.0100 ####[facility] [address] [place], [address] WBC (Bld) [#/Vol] 5.9 10*3/uL Normal 4.4-11.0 [facility] Comment on above: Performed By: #### L 500.2500, L100.0100 ####[facility] [address] [place], [address] Carbon dioxide, total [Moles /volume] in Central venous bloodOrdered By: Dean Del Cid on 01-01-2025 CO2 [Moles/Vol] 25.1 mmol/L 21.0-32.0 [facility] Chloride assayOrdered By: Gilberto Del Cid on 01-01-2025 Chloride [Moles/Vol] 104 mmol/L 98-108 [facility] Emergency Department Summary on 01-01-2025 Emergency Department Summary [facility] Medical Records Department [address] [place] [address] Emergency Department Summary 01/01/25 MR#: [id number] Acct: [id number] Name: WINSTON MARI Rep #: [id number] : 1955 69 From: Dean Ac PCP: Dr. Eugenio Mayen, DO Status:DEP ER Location: ED HPI History of Present Illness Chief Complaint: Flank Pain Informant: patient Narrative Narrative: Nontraumatic right flank pain after waking yesterday. Little dysuria when he urinates. No fevers reports chills. No vomiting. No history of kidney stones. Allergies to NSAIDs. Allergies to tramadol and hydrocodone. Has tolerated morphine in the past. Denies pain down the legs. Denies any loss of bowel or bladder control. Prior similar symptoms: No PFSH PFS Medical History Left rotator cuff tear Anemia GERD (gastroesophageal reflux disease) Left shoulder pain Hemorrhoid Epilepsy Sciatica High cholesterol Home Medications ???Medication ???Instructions ???Recorded ???Last Taken ???Type gabapentin 300 mg capsule 300 mg PO 4X/DAY 04/02/22 Unknown History hydrocortisone acetate 25 mg 25 mg VT QHS #12 ea 04/27/22 Unkno wn Rx rectal suppository (Anusol-HC) atorvastatin 40 mg tablet (Lipitor) 40 mg PO QHS 01/13/23 Unknown H istory polyethylene glycol 3350 17 17 g PO DAILY #119 grams 05/31/23 Unknown Rx gram/dose oral powder (ClearLax) cyclobenzaprine 5 mg tablet 5 mg PO TID PRN muscle spasm 4 Unknown Rx days #12 tabs clopidogrel 75 mg tablet 75 mg PO QDAY 11/13/24 Unknown His tory duloxetine 30 mg capsule,delayed See Rx Instructions PO QDAY Unknown History release ferrous sulfate 325 mg (65 mg 325 mg PO QDAY 11/13/24 Unknown Hi story iron) tablet pantoprazole 40 mg tablet,delayed 40 mg PO QDAY 11/13/24 Unknown Hi story release ondansetron 4 mg disintegrating 4 mg PO Q8H PRN PRN Nausea #10 tab s 11/25/24 Unknown Rx tablet oxycodone-acetaminophen 5 mg-325 1 tab PO Q8H PRN pain 3 days #10 0 11/25/24 Unknown Rx mg tablet (Percocet) tabs diazepam 5 mg tablet 5 mg PO Q8 PRN Muscle Spasm #10 Unknown Rx tabs Allergy/AdvReac Type Severity Reaction Status Date / Time adhesive tape (tape) AdvReac Rash Verified 01/01/25 14:03 hydrocodone (From [place]) AdvReac Upset Verified 01/01/25 14:03 Stomach ibuprofen AdvReac Upset Verified 01/01/25 14:03 Stomach ketorolac (From Toradol) AdvReac Rash Verified 01/01/25 14:03 meloxicam (From Mobic) AdvReac Muscle Verified 01/01/25 14:03 weakness naproxen AdvReac Rash Verified 01/01/25 14:03 tramadol AdvReac Upset Verified 01/01/25 14:03 Stomach Family History Other Cancer Diabetes Heart disease Surgical History Leg fracture, left S/P clamping of cerebral aneurysm Social History household members: significant other Smoking Status: Former smoker alcohol intake: former substance use type: does not use ROS ROS ED Constitutional Constitutional ED: Denies chills, fever(s) or sweats ENT ENT ED: Denies sore throat Cardiovascular Cardiovascular: Denies chest pain, leg edema, palpitations or racing heartbeat Respiratory/Chest Respiratory/Chest: Denies cough, dyspnea or dyspnea on exertion Gastrointestinal Gastrointestinal: Denies abdominal pain, diarrhea, nausea or vomiting Genitourinary Genitourinary ED: Denies dysuria, hematuria or urinary frequency Musculoskeletal Musculoskeletal: Reports back pain; Denies extremity pain or neck pain Integumentary Denies rash or wounds Neurologic Neurologic: Denies headache(s), paresthesias or weakness EXAM Physical Exam Const Vital Signs: 01/01/25 14:02 01/01/25 16:01 01/01/25 17:09 Temperature 98.1 F 98 F Temperature Source Temporal Pulse Rate 56 L 63 63 Respiratory Rate 15 16 16 Blood Pressure 126/72 H 122/74 H 122/74 H Blood Pressure Mean 90 90 90 Pulse Ox 99 99 99 Oxygen Delivery Method Room Air Positive well nourished and well developed General Appearance ED: well developed and NAD HEENT Reports moist mucous membranes normocephalic and atraumatic Eyes General Eye ED: Yes normal appearance of both eyes Neck full ROM Chest Wall Chest: Negative for tenderness Resp normal respiratory effort and normal air movement Effort and Inspection: symmetric chest movement; Negative for respiratory distress Cardio regular rate, regular rhythm and no murmurs Peripheral Pulses: pulses 2+ throughout GI normal to inspection, nondistended, normoactive bowel sounds and non-tender Palpation: Negative for guarding or rebound t (more content not included)... Normal [facility] Eosinophil percentageOrdered By: Dean Del Cid on 01-01-2025 Eosinophils/100 WBC (Bld) 5.1 % High 0-5 [facility] Epithelial cells.squamous LM Ql (Urine sed)Ordered By: Dean Del Cid on 01-01-2025 Epithelial cells.squamous LM.HPF (Urine sed) [#/Area] 0 /[HPF] 0-5 [facility] Erythrocyte distribution wid th ratioOrdered By: Dean Del Cid on 01-01-2025 Erythrocyte distribution width (RBC) [Ratio] 14.3 % 11.6-14.6 [facility] Erythrocyte distribution wid th standard deviationOrdered By: Dean Del Cid on 01-01-2025 Erythrocyte distribution width (RBC) [Entitic vol] 48.0 fL High 35.1-43.9 [facility] Erythrocyte distribution width (RBC) [Ratio] 48.0 fl High 35.1-43.9 [facility] Estimation of creatinine homa aranceOrdered By: Dean Del Cid on 01-01-2025 Estimated Creatinine Clearance Calc 77.55 ml/min 50-250 [facility] GFR/1.73 sq M.predicted cecilia g non-blacks MDRD (S/P/Bld) [Vol rate/Area]Ordered By: Dean Del Cid on 01-01-2025 Estimated GFR (MDRD) Non-Af Amer 90 >60 [facility] Comment on above: mL/min/1.73m2 CKD-EP I Creatinine Equation (2020) Glomerular filtration rate ( GFR) estimation/1.73 sq m using serum, plasma, or whole bOrdered By: Dean Del Cid on 01-01-2025 GFR/1.73 sq M.predicted among non-blacks MDRD (S/P/Bld) [Vol rate/Area] 90 mL/min/{1.73_m2} >60 [facility] Comment on above: mL/min/1.73m2 CKD-EP I Creatinine Equation (2020) Glucose Ql (U)Ordered By: Gilberto Del Cid on 01-01-2025 Urine Glucose (UA) Normal mg/dl Normal [facility] Hematocrit Auto (Bld) [Volum e fraction]Ordered By: Dean Del Cid on 01-01-2025 Hematocrit (Bld) [Volume fraction] 37.1 % Low 40-54 [facility] Hemoglobin measurementOrdere d By: Dean Del Cid on 01-01-2025 Hemoglobin (Bld) [Mass/Vol] 12.2 g/dL Low 13.0-16.5 [facility] Immature granulocytes/100 WB C Auto (Bld)Ordered By: Dean Del Cid on 01-01-2025 Immature granulocytes/100 WBC (Bld) 0.300 % 0.0-0.9 [facility] Comment on above: IG% - Immature Granu locytes (promyelocytes, myelocytes and metamyelocytes) > 1% indicates that a LEFT SHIFT is Present. Ketones Test strip Ql (U)Ord ered By: Dean Del Cid on 01-01-2025 Ketones Ql (U) Negative Negative [facility] Lymphocytes Auto (Unsp spec) [#/Vol]Ordered By: Dean Del Cid on 01-01-2025 Lymphocytes (Bld) [#/Vol] 1.67 10*3/uL 0.83-4.51 [facility] Lymphocytes/100 WBC Auto (Un sp spec)Ordered By: Dean Del Cid on 01-01-2025 Lymphocytes/100 WBC (Bld) 28.4 % 19-41 [facility] MCV (mean corpuscular volume ) determinationOrdered By: Dean Del Cid on 01-01-2025 MCV (RBC) [Entitic vol] 91.4 fL 80-94 [facility] Mean corpuscular hemoglobin (MCH) determinationOrdered By: Dean Del Cid on 01-01-2025 MCH (RBC) [Entitic mass] 30.0 pg 27.0-32.0 [facility] Mean corpuscular hemoglobin concentration (MCHC) determinationOrdered By: Dean Del Cid on 01-01-2025 MCHC (RBC) [Mass/Vol] 32.9 g/dL 32-36 [facility] Mean platelet volume determi nationOrdered By: Dean Del Cid on 01-01-2025 Platelet mean volume (Bld) [Entitic vol] 8.3 fL 6.2-12.0 [facility] Microscopic analysis of urin e for red blood cells (RBC)Ordered By: Dean Del Cid on 01-01-2025 Microscopic analysis of urine for red blood cells (RBC) 0-5 SEEN /hpf 0-5 [facility] Urine RBC 0-5 SEEN /hpf 0-5 [facility] Monocyte percentageOrdered B y: Dean Del Cid on 01-01-2025 Monocytes/100 WBC (Bld) 11.6 % High 0-10 [facility] Mucus LM Ql (Urine sed)Order ed By: Dean Del Cid on 01-01-2025 Mucus Ql (Urine sed) 0 SEEN /hpf [facility] Neutrophil percentageOrdered By: Dean Del Cid on 01-01-2025 Neutrophils/100 WBC (Bld) 53.4 % 47-70 [facility] Nitrite Test strip Ql (U)Ord ered By: Dean Del Cid on 01-01-2025 Nitrite Ql (U) Negative Negative [facility] Nucleated red blood cell per centageOrdered By: Dean Del Cid on 01-01-2025 Nucleated RBC/100 WBC (Bld) [Ratio] 0 % 0-5 [facility] Platelet countOrdered By: Gilberto Del Cid on 01-01-2025 Platelets (Bld) [#/Vol] 327 10*3/uL 150-450 [facility] Potassium (Unsp spec) [Mass/ Vol]Ordered By: Dean Del Cid on 01-01-2025 Potassium [Moles/Vol] 4.4 mmol/L 3.3-5.1 [facility] Potassium measurement (mass/ volume)Ordered By: Dean Del Cid on 01-01-2025 Potassium (Unsp spec) [Mass/Vol] 4.4 mmol/L 3.3-5.1 [facility] Protein Test strip Ql (U)Ord ered By: Dean Del Cid on 01-01-2025 Protein Ql (U) Negative Negative [facility] RBC Auto (Bld) [#/Vol]Ordere d By: Dean Del Cid on 01-01-2025 RBC (Bld) [#/Vol] 4.06 10*6/uL Low 4.6-6.2 [facility] Serum creatinine measurement (mass/volume)Ordered By: Dean Del Cid on 01-01-2025 Creatinine [Mass/Vol] 0.93 mg/dL 0.70-1.20 [facility] Serum glucose measurement (m ass/volume)Ordered By: Dean Del Cid on 01-01-2025 Glucose [Mass/Vol] 95 mg/dL 70-99 [facility] Serum or plasma calcium doug urement (mass/volume)Ordered By: Dean Del Cid on 01-01-2025 Calcium [Mass/Vol] 9.0 mg/dL 7.6-11.0 [facility] Serum or plasma urea nitroge n measurement (mass/volume)Ordered By: Dean Del Cid on 01-01-2025 Urea nitrogen [Mass/Vol] 21 mg/dL High 4-19 [facility] Sodium levelOrdered By: Dean Del Cid on 01-01-2025 Sodium [Moles/Vol] 138 mmol/L 133-145 [facility] Squamous epithelial cells de tection in urine sediment by light microscopyOrdered By: Dean Del Cid on 01-01-2025 Epithelial cells.squamous LM Ql (Urine sed) 0-5 SEEN /hpf 0-5 [facility] Urinalysis, Completeon 01-01 EPI,SQUAMOUS 0-5 SEEN Normal 0-5 [facility] Comment on above: Order Comment: CLEAN CATCH Performed By: #### L 400.0001 #### [facility] [address] [place], [address] RBC 0-5 SEEN Normal 0-5 [facility] Comment on above: Order Comment: CLEAN CATCH Performed By: #### L 400.0001 #### [facility] [address] [place], [address] BACTERIA 0 SEEN Normal None Seen [facility] Comment on above: Order Comment: CLEAN CATCH Performed By: #### L 400.0001 #### [facility] [address] [place], [address] Mucus Ql (Urine sed) 0 SEEN Normal [facility] Comment on above: Order Comment: CLEAN CATCH Performed By: #### L 400.0001 #### [facility] [address] [place], [address] WBC 0 SEEN Normal 0-5 [facility] Comment on above: Order Comment: CLEAN CATCH Performed By: #### L 400.0001 #### [facility] [address] [place], [address] Urine blood detectionOrdered By: Dean Del Cid on 01-01-2025 Urine Occult Blood 25 /ul High Negative [facility] Urine clarityOrdered By: Suresh Del Cid on 01-01-2025 Clarity (U) Sl. Cloudy Clear [facility] Urine color determinationOrd ered By: Dean Del Cid on 01-01-2025 Color (U) Yellow Yellow [facility] Urine glucose detectionOrder ed By: Dean Del Cid on 01-01-2025 Glucose Ql (U) Normal mg/dl Normal [facility] Urine leukocyte esterase det ection by dipstickOrdered By: Dean Del Cid on 01-01-2025 Leukocyte esterase Test strip Ql (U) Negative Negative [facility] Urine pHOrdered By: Dean Del Cid on 01-01-2025 pH (U) 6.5 [pH] 5.0 - 8.0 [facility] Urine sediment bacteria coun t by microscopy (number/high power field)Ordered By: Dean Del Cid on 01-01-2025 Bacteria LM.HPF (Urine sed) [#/Area] 0 /[HPF] None Seen [facility] Urine specific gravity measu rementOrdered By: Dean Del Cid on 01-01-2025 Specific gravity (U) [Rel density] 1.010 1.002-1.03 0 [facility] Urine urobilinogen measureme ntOrdered By: Dean Del Cid on 01-01-2025 Urobilinogen Ql (U) Normal mg/dl Normal [facility] Urobilinogen Ql (U)Ordered B y: Dean Del Cid on 01-01-2025 Urine Urobilinogen Normal mg/dl Normal [facility] White blood cell (WBC) count Ordered By: Dean Del Cid on 01-01-2025 WBC (Bld) [#/Vol] 5.9 10*3/uL 4.4-11.0 [facility] White blood cell countOrdere d By: Dean Del Cid on 01-01-2025 Urine WBC 0 SEEN /hpf 0-5 [facility] White blood cell count 0 SEEN /hpf 0-5 [facility] Magnetic resonance imaging r eportOrdered By: Gregg Garcia on 12-22-2024 Study report [facility] Imaging Services [address] [place], [place] [id number] Spine Lumbar (Routine) MR#: [id number] Acct: [id number] Name: WINSTON MARI Rep #: [id number] : 1955 M 69 From: Sohail Garcia DO PCP: Dr. Eugenio Mayen, Status: REG CLI Study:Spine Lumbar (Routine) Date of Exam: 12/22/24 Exam# [id number] Ordering Dr: Memo Campbell PROCEDURE: MRI SPINE LUMBAR (ROUTINE) REASON FOR EXAM: Pain. TECHNIQUE: Noncontrast lumbar spine MRI. COMPARISON: Lumbar spine radiograph from 10/09/2023. Lumbar spine CT from 08/09/2023. FINDINGS: There is mild chronic anterior wedging of L2 and L4. There is diminished signalintensity involving the discs of the lumbar spine related to degenerative disc disease. Multilevel disc space narrowing with endplate spurring is present greatest at L5-S1. There is mild levoscoliosis of the lumbar spine. No acute fracture or subluxation is identified. There is bone marrow edema along the right facet at L3 likely on a degenerative basis. The tip of the conus medullaris terminates at L2 and signal intensity of the included spinal cord is within normal limits. Paraspinous musculature is unremarkable. Individual levels: L1-2: Disc bulge and facet/flavum hypertrophy with no significant central canal stenosis. Mild bilateral neural foraminal narrowing is present. L2-3: Mild disc bulge and facet/flavum hypertrophy with no significant central canal stenosis. Mild bilateral neural foraminal narrowing is present. L3-4: Mild disc bulge and mild facet arthropathy with no significant central canal stenosis. Huio-to-apglabal left and mild right neural foraminal narrowing is present. L4-5: Mild retrolisthesis with disc bulge and facet arthropathy with no significant central canal stenosis. Moderate bilateral neural foraminal narrowing is present. L5-S1: Disc bulge and facet arthropathy with no significant central canal stenosis. Severe bilateral neural foraminal narrowing is present. MRI/Spine Lumbar (Routine) IMPRESSION: 1. Multilevel degenerative disc disease and spondylosis with no significant central canal stenosis. Multilevel varying degrees of neural foraminal narrowing are identified which are on a severe basis at L5-S1. 2. Mild bone marrow edema along the right facet at L3 likely on a degenerative basis. Reading Location: [facility] CC: NIKI [place]; Dr. Eugenio Mayen DO ~ 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: Signed [facility] Spine Lumbar (Routine)on Spine Lumbar (Routine) [facility] Imaging Services [address] [place] [address] Spine Lumbar (Routine) MR#: [id number] Acct: [id number] Name: WINSTON MARI Rep #: [id number] : 1955 M 69 From: Gregg Garcia DO PCP: Dr. Eugenio Mayen DO Status: REG CLI Study: Spine Lumbar (Routine) Date of Exam: 12/22/24 Exam# [id number] Ordering Dr: Aiyana Campbell PROCEDURE: MRI SPINE LUMBAR (ROUTINE) REASON FOR EXAM: Pain. TECHNIQUE: Noncontrast lumbar spine MRI. COMPARISON: Lumbar spine radiograph from 10/09/2023. Lumbar spine CT from 08/09/2023. FINDINGS: There is mild chronic anterior wedging of L2 and L4. There is diminished signal intensity involving the discs of the lumbar spine related to degenerative disc disease. Multilevel disc space narrowing with endplate spurring is present greatest at L5-S1. There is mild levoscoliosis of the lumbar spine. No acute fracture or subluxation is identified. There is bone marrow edema along the right facet at L3 likely on a degenerative basis. The tip of the conus medullaris terminates at L2 and signal intensity of the included spinal cord is within normal limits. Paraspinous musculature is unremarkable. Individual levels: L1-2: Disc bulge and facet/flavum hypertrophy with no significant central canal stenosis. Mild bilateral neural foraminal narrowing is present. L2-3: Mild disc bulge and facet/flavum hypertrophy with no significant central canal stenosis. Mild bilateral neural foraminal narrowing is present. L3-4: Mild disc bulge and mild facet arthropathy with no significant central canal stenosis. [id number] left and mild right neural foraminal narrowing is present. L4-5: Mild retrolisthesis with disc bulge and facet arthropathy with no significant central canal stenosis. Moderate bilateral neural foraminal narrowing is present. L5-S1: Disc bulge and facet arthropathy with no significant central canal stenosis. Severe bilateral neural foraminal narrowing is present. MRI/Spine Lumbar (Routine) IMPRESSION: 1. Multilevel degenerative disc disease and spondylosis with no significant central canal stenosis. Multilevel varying degrees of neural foraminal narrowing are identified which are on a severe basis at L5-S1. 2. Mild bone marrow edema along the right facet at L3 likely on a degenerative basis. Reading Location: [facility] CC: NIKI Rock; Dr. Eugenio Mayen DO 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: Signed Normal [facility] .Auto Diffon 12-18-2024 Basophil, Absolute 0.1 10 3/mcL Normal 0.0-0.2 [facility] Comment on above: Performed By: #### P SA, CBC, CMP, ADIFF, FERR, LIPID, VIDH, A1C, ANEU, GFR #### [address] [address] Basophils/100 WBC (Bld) 1.0 % Normal 0.0-2.5 [facility] Comment on above: Performed By: #### P SA, CBC, CMP, ADIFF, FERR, LIPID, VIDH, A1C, ANEU, GFR #### [address] [address] Eosinophil, Absolute 0.4 10 3/mcL Normal 0.0-0.[address] [facility] Comment on above: Performed By: #### P SA, CBC, CMP, ADIFF, FERR, LIPID, VIDH, A1C, ANEU, GFR #### [address] [address] Eosinophils/100 WBC (Bld) 6.4 % Normal 0.0-7.0 [facility] Comment on above: Performed By: #### P SA, CBC, CMP, ADIFF, FERR, LIPID, VIDH, A1C, ANEU, GFR #### [address] [address] Lymphocyte, Absolute 1.4 10 3/mcL Normal 0.9-4.[address] [facility] Comment on above: Performed By: #### P SA, CBC, CMP, ADIFF, FERR, LIPID, VIDH, A1C, ANEU, GFR #### [address] [address] Lymphocytes/100 WBC (Bld) 21.0 % Normal 20.0-40.0 [facility] Comment on above: Performed By: #### P SA, CBC, CMP, ADIFF, FERR, LIPID, VIDH, A1C, ANEU, GFR #### [address] [address] Monocyte, Absolute 0.7 10 3/mcL Normal 0.1-1.4 [facility] Comment on above: Performed By: #### P SA, CBC, CMP, ADIFF, FERR, LIPID, VIDH, A1C, ANEU, GFR #### [address] [address] Monocytes/100 WBC (Bld) 10.5 % Normal 2.0-13.0 [facility] Comment on above: Performed By: #### P SA, CBC, CMP, ADIFF, FERR, LIPID, VIDH, A1C, ANEU, GFR #### [address] [address] Neutrophils/100 WBC (Bld) 61.1 % Normal 50.0-75.0 [facility] Comment on above: Performed By: #### P SA, CBC, CMP, ADIFF, FERR, LIPID, VIDH, A1C, ANEU, GFR #### [address] [address] .GFRon 12-18-2024 Estimated Glomerular Filtration Rate 81 ml/min/1.73sqm Normal [facility] Comment on above: Result Comment: Stages of Chronic Kidney Disease (CKD) Stage Description eGFR(ml/min/1.73 sq.m.) CKD 1 Normal kidney function or >=90 normal kindney function with possible kidney damage (ex. Proteinuria) CKD 2 Kidney damage with mild loss 60-89 of kidney function CKD 3a Mild to moderate loss of kidney 45-59 function CKD 3b Moderate to severe loss of 30-44 of kindey function CKD 4 Severe loss of kidney function 15-29 CKD 5 Kidney failure <15 Note: (go live 2024) the eGFR calculation was updated to the 2020 CKD-EPI creatinine equation without a race factor to calculate the eGFR results. Performed By: #### P SA, CBC, CMP, ADIFF, FERR, LIPID, VIDH, A1C, ANEU, GFR #### [address] [address] .NEUABSon 12-18-2024 Neutrophil, Absolute 4.0 10 3/mcL Normal 2.3-8.[address] [facility] Comment on above: Performed By: #### P SA, CBC, CMP, ADIFF, FERR, LIPID, VIDH, A1C, ANEU, GFR #### [place] [id number] A1Con 12-18-2024 Glucose [Mass/Vol] 114 mg/dL Normal [facility] Comment on above: Result Comment: Josee mated Average Glucose calculated by equation ((28.7xA1C)-46.7) Estimated average glucose (eAG) is a calculated value from Hemoglobin A1C and is retail customer service representative of the average blood glucose level in the last 2-3 month period. Normal range: less than 114 mg/dL Performed By: #### P SA, CBC, CMP, ADIFF, FERR, LIPID, VIDH, A1C, ANEU, GFR ####[address] [address] HbA1c (Bld) [Mass fraction] 5.6 % Normal 4.3-6.4 [facility] Comment on above: Performed By: #### P SA, CBC, CMP, ADIFF, FERR, LIPID, VIDH, A1C, ANEU, GFR ####[address] [address] CBCon 12-18-2024 Erythrocyte distribution width (RBC) [Ratio] 14.9 % Normal 11.5-15.5 [facility] Comment on above: Performed By: #### P SA, CBC, CMP, ADIFF, FERR, LIPID, VIDH, A1C, ANEU, GFR #### [address] [address] Hematocrit (Bld) [Volume fraction] 36.8 % Low 40.0-52.0 [facility] Comment on above: Performed By: #### P SA, CBC, CMP, ADIFF, FERR, LIPID, VIDH, A1C, ANEU, GFR #### [place] [id number] Hgb 12.6 G/dL Low 13.0-17.5 [facility] Comment on above: Performed By: #### P SA, CBC, CMP, ADIFF, FERR, LIPID, VIDH, A1C, ANEU, GFR #### [place] [address] MCH (RBC) [Entitic mass] 30.9 pg Normal 27.0-33.0 [facility] Comment on above: Performed By: #### P SA, CBC, CMP, ADIFF, FERR, LIPID, VIDH, A1C, ANEU, GFR #### [place] [address] MCHC 34.3 G/dL Normal 32.0-36.0 [facility] Comment on above: Performed By: #### P SA, CBC, CMP, ADIFF, FERR, LIPID, VIDH, A1C, ANEU, GFR #### [place] [address] MCV (RBC) [Entitic vol] 89.9 fL Normal 81.0-100.0 [facility] Comment on above: Performed By: #### P SA, CBC, CMP, ADIFF, FERR, LIPID, VIDH, A1C, ANEU, GFR #### [place] [id number] Platelet 390 10 3/mcL Normal 150-450 [facility] Comment on above: Performed By: #### P SA, CBC, CMP, ADIFF, FERR, LIPID, VIDH, A1C, ANEU, GFR #### [place] [id number] Platelet mean volume (Bld) [Entitic vol] 6.9 fL Normal 6.4-10.5 [facility] Comment on above: Performed By: #### P SA, CBC, CMP, ADIFF, FERR, LIPID, VIDH, A1C, ANEU, GFR #### [address] [address] RBC 4.09 10 6/mcL Low 4.50-6.00 [facility] Comment on above: Performed By: #### P SA, CBC, CMP, ADIFF, FERR, LIPID, VIDH, A1C, ANEU, GFR #### [address] [address] WBC 6.6 10 3/mcL Normal 4.5-10.8 [facility] Comment on above: Performed By: #### P SA, CBC, CMP, ADIFF, FERR, LIPID, VIDH, A1C, ANEU, GFR #### [address] [address] CMPon 12-18-2024 Albumin Level 3.8 G/dL Normal 3.4-4.8 [facility] Comment on above: Performed By: #### P SA, CBC, CMP, ADIFF, FERR, LIPID, VIDH, A1C, ANEU, GFR #### [address] [address] Albumin/Globulin [Mass ratio] 1.2 {ratio} Normal 1.1-2.5 [facility] Comment on above: Performed By: #### P SA, CBC, CMP, ADIFF, FERR, LIPID, VIDH, A1C, ANEU, GFR #### [address] [address] ALP [Catalytic activity/Vol] 95 U/L Normal 40-135 [facility] Comment on above: Performed By: #### P SA, CBC, CMP, ADIFF, FERR, LIPID, VIDH, A1C, ANEU, GFR #### [address] [address] ALT [Catalytic activity/Vol] 22 U/L Normal 16-63 [facility] Comment on above: Performed By: #### P SA, CBC, CMP, ADIFF, FERR, LIPID, VIDH, A1C, ANEU, GFR #### [address] [address] AST [Catalytic activity/Vol] 20 U/L Normal 10-40 [facility] Comment on above: Performed By: #### P SA, CBC, CMP, ADIFF, FERR, LIPID, VIDH, A1C, ANEU, GFR #### [address] [address] Bili Total 0.3 mg/dL Normal 0.2-1.0 [facility] Comment on above: Result Comment: Use of this assay is not recommended for patients undergoing treatment with eltrombopag due to the potential for falsely elevated results. Performed By: #### P SA, CBC, CMP, ADIFF, FERR, LIPID, VIDH, A1C, ANEU, GFR #### [place] [address] BUN/Creatinine Ratio 23 ratio Normal 7-27 [facility] Comment on above: Performed By: #### P SA, CBC, CMP, ADIFF, FERR, LIPID, VIDH, A1C, ANEU, GFR #### [address] [address] Calcium [Mass/Vol] 9.0 mg/dL Normal 8.4-10.2 [facility] Comment on above: Performed By: #### P SA, CBC, CMP, ADIFF, FERR, LIPID, VIDH, A1C, ANEU, GFR #### [address] [address] Chloride [Moles/Vol] 104 mmol/L Normal 98-107 [facility] Comment on above: Performed By: #### P SA, CBC, CMP, ADIFF, FERR, LIPID, VIDH, A1C, ANEU, GFR #### [address] [address] CO2 [Moles/Vol] 26 mmol/L Normal 23-31 [facility] Comment on above: Performed By: #### P SA, CBC, CMP, ADIFF, FERR, LIPID, VIDH, A1C, ANEU, GFR #### [address] [address] Creatinine [Mass/Vol] 1.01 mg/dL Normal 0.70-1.30 [facility] Comment on above: Result Comment: Test ing performed on Siemens Dimension EXL analyzer using a modified kinetic Polly technique. Performed By: #### P SA, CBC, CMP, ADIFF, FERR, LIPID, VIDH, A1C, ANEU, GFR #### [address] [address] Electrolyte Balance 9.0 mEq/L Normal 4.0-15.0 [facility] Comment on above: Performed By: #### P SA, CBC, CMP, ADIFF, FERR, LIPID, VIDH, A1C, ANEU, GFR #### [address] [address] Globulin 3.2 G/dL Normal 1.5-3.8 [facility] Comment on above: Performed By: #### P SA, CBC, CMP, ADIFF, FERR, LIPID, VIDH, A1C, ANEU, GFR #### [address] [address] Glucose [Mass/Vol] 83 mg/dL Normal 80-115 [facility] Comment on above: Performed By: #### P SA, CBC, CMP, ADIFF, FERR, LIPID, VIDH, A1C, ANEU, GFR #### [address] [address] Potassium [Moles/Vol] 4.6 mmol/L Normal 3.5-5.1 [facility] Comment on above: Performed By: #### P SA, CBC, CMP, ADIFF, FERR, LIPID, VIDH, A1C, ANEU, GFR #### [address] [address] Sodium [Moles/Vol] 139 mmol/L Normal 136-145 [facility] Comment on above: Performed By: #### P SA, CBC, CMP, ADIFF, FERR, LIPID, VIDH, A1C, ANEU, GFR #### [address] [address] Total Protein 7.0 G/dL Normal 6.4-8.2 [facility] Comment on above: Performed By: #### P SA, CBC, CMP, ADIFF, FERR, LIPID, VIDH, A1C, ANEU, GFR #### [address] [address] Urea nitrogen [Mass/Vol] 23 mg/dL High 7-18 [facility] Comment on above: Performed By: #### P SA, CBC, CMP, ADIFF, FERR, LIPID, VIDH, A1C, ANEU, GFR #### [address] [address] Sina 12-18-2024 Ferritin [Mass/Vol] 68.0 ng/mL Normal 26.0-388.0 [facility] Comment on above: Performed By: #### P SA, CBC, CMP, ADIFF, FERR, LIPID, VIDH, A1C, ANEU, GFR #### [address] [address] LIPIDon 12-18-2024 Cholesterol [Mass/Vol] 136 mg/dL Normal 0-[address] [facility] Comment on above: Result Comment: Chol esterol Reference Interval: Less than 200 Desirable 200-239 Borderline high risk 240 and above High risk Performed By: #### P SA, CBC, CMP, ADIFF, FERR, LIPID, VIDH, A1C, ANEU, GFR ####[address] [address] Cholesterol in HDL [Mass/Vol] 38 mg/dL Low 40-60 [facility] Comment on above: Performed By: #### P SA, CBC, CMP, ADIFF, FERR, LIPID, VIDH, A1C, ANEU, GFR ####[address] [address] Cholesterol in LDL [Mass/Vol] 84 mg/dL Normal 0-130 [facility] Comment on above: Performed By: #### P SA, CBC, CMP, ADIFF, FERR, LIPID, VIDH, A1C, ANEU, GFR ####[address] [address] Triglyceride [Mass/Vol] 72 mg/dL Normal 0-150 [facility] Comment on above: Result Comment: Trig lyceride Reference Interval: Less than 150 Normal 150-199 Borderline high risk 200-499 High risk 500 or higher Very high risk Performed By: #### P SA, CBC, CMP, ADIFF, FERR, LIPID, VIDH, A1C, ANEU, GFR ####[id number] [place], [place] [address] PSAon 12-18-2024 Prostate Specific Antigen 1.51 ng/mL Normal 0.00-4.00 [facility] Comment on above: Performed By: #### P SA, CBC, CMP, ADIFF, FERR, LIPID, VIDH, A1C, ANEU, GFR ####[address] [place], [place] [address] VIDHon 12-18-2024 Vit. D 25-Hydroxy 31.7 ng/mL Normal [facility] Comment on above: Result Comment: Inte rpretive Values Based on Total 25(OH) Vitamin D: Deficient <20 ng/mL Insufficient 20 - <30 ng/mL Sufficient 30-100 ng/mL Performed By: #### P SA, CBC, CMP, ADIFF, FERR, LIPID, VIDH, A1C, ANEU, GFR ####[address] [place], [place] [address] Orthopedic Visit Reporton Orthopedic Visit Report [facility] [address] [place] [address] OFFICE VISIT Date of Service: 12/15/24 MR#: [id number] Acct: [id number] Name: WINSTON MARI Paul Rep #: [id number] : 1955 Provider: Dr. Jacob mckeon MD Age/Sex: 69/M Location: [facility] Status: Signed Intake Vital Signs 11/25/24 10:50 Height 5 ft 11 in Intake Visit Reasons: LEFT SHOULDER Architectural Designer Required: No Accompanied by: Self Is patient in pain?: Yes (left shoulder) Pain scale (1-10): 8 Allergies adhesive tape (tape) Adverse Reaction (Verified 12/15/24 10:54) Rash hydrocodone (From [place]) Adverse Reaction (Verified 12/15/24 10:54) Upset Stomach ibuprofen Adverse Reaction (Verified 12/15/24 10:54) Upset Stomach ketorolac (From Toradol) Adverse Reaction (Verified 12/15/24 10:54) Rash meloxicam (From Mobic) Adverse Reaction (Verified 12/15/24 10:54) Muscle weakness naproxen Adverse Reaction (Verified 12/15/24 10:54) Rash tramadol Adverse Reaction (Verified 12/15/24 10:54) Upset Stomach Medications ???Medication ???Instructions ???Recorded ???Confirmed ???Type gabapentin 300 mg capsule 300 mg PO 4X/DAY 04/02/22 12/15/24 History hydrocortisone acetate 25 mg 25 mg VT QHS #12 ea 04/27/2212/15 Rx rectal suppository (Anusol-HC) atorvastatin 40 mg tablet (Lipitor) 40 mg PO QHS 01/13/23 12/15/24 History polyethylene glycol 3350 17 17 g PO DAILY #119 grams 05/31/23 12/15/24 Rx gram/dose oral powder (ClearLax) cyclobenzaprine 5 mg tablet 5 mg PO TID PRN muscle spasm 4 12/15/24 Rx days #12 tabs clopidogrel 75 mg tablet 75 mg PO QDAY 11/13/24 12/15/24 Hi story duloxetine 30 mg capsule,delayed See Rx Instructions PO QDAY 12/15/24 History release ferrous sulfate 325 mg (65 mg 325 mg PO QDAY 11/13/24 12/15/24 H istory iron) tablet pantoprazole 40 mg tablet,delayed 40 mg PO QDAY 11/13/24 12/15/24 H istory release ondansetron 4 mg disintegrating 4 mg PO Q8H PRN PRN Nausea #10 tab s 11/25/24 12/15/24 Rx tablet oxycodone-acetaminophen 5 mg-325 1 tab PO Q8H PRN pain 3 days #10 0 11/25/24 12/15/24 Rx mg tablet (Percocet) tabs Have you fallen in the past year?: No PFSH Medical History Left rotator cuff tear Anemia GERD (gastroesophageal reflux disease) Left shoulder pain Hemorrhoid Epilepsy Sciatica High cholesterol Surgical History Leg fracture, left S/P clamping of cerebral aneurysm Family History Other Cancer Diabetes Heart disease Social History household members: significant other Smoking Status: Former smoker alcohol intake: former substance use type: does not use HPI LEFT SHOULDER Details: This documentation accurately reflects the service provided and the decisions made by me, Dr. Jacob Dominguez MD 12/15/24 0941. Part of today???s visit was documented by [ ], acting as scribe. WINSTON MARI is a 69 year old M here today for left shoulder pain. Follow-up MRI to assess for cuff tear. Patient is still waiting on an MRI of the lumbar spine for compression fracture. Supplemental Info [facility] Imaging Services [address] [place], [place] [address] Upper Ext Joint Only(Routine) MR#: [id number] Acct: [id number] Name: WINSTON MARI Rep #: [id number] : 1955 M 69 From: Doug Coats DO PCP: Dr. Eugenio Mayen DO Status: REG CLI Study: Upper Ext Joint Only(Routine) Date of Exam: 12/08/24 Exam# [id number] Ordering Dr: Jacob Dominguez MD PROCEDURE: MRI left shoulder without IV contrast REASON FOR EXAM: Pain, injury TECHNIQUE: Multisequence multiplanar MR images of the left shoulder were obtained without the administration of intravenous contrast. COMPARISON: None FINDINGS Full-thickness full width tear of the distal supraspinatus tendon with retraction to the level of the superior humeral head measuring at least 2.5 cm from its footplate. Contiguous small full-thickness tear of the anterior insertional fibers of the infraspinatus tendon. Mid to posterior infraspinatus tendon fibers are grossly intact. Subscapularis and teres minor tendons are intact. Mild/moderate supraspinatus muscle atrophy. Long head biceps tendon is grossly intact. Degenerative tearing of the posterior labrum which is severely diminutive and frayed. No paralabral cysts. No focal full-thickness chondral defects. Small gleno (more content not included)... Normal [facility] Upper Ext Joint Only(Routine )on 12-08-2024 Upper Ext Joint Only(Routine) [facility] Imaging Services [address] [place] [address] Upper Ext Joint Only(Routine) MR#: [id number] Acct: [id number] Name: WINSTON MARI Rep #: [id number] : 1955 M 69 From: Doug Asher PCP: Dr. Eugenio Mayen, DO Status: REG CLI Study: Upper Ext Joint Only(Routine) Date of Exam: 0 12/08/24 Exam# [id number] Ordering Dr: Jacob Dominguez MD PROCEDURE: MRI left shoulder without IV contrast REASON FOR EXAM: Pain, injury TECHNIQUE: Multisequence multiplanar MR images of the left shoulder were obtained without the administration of intravenous contrast. COMPARISON: None FINDINGS Full-thickness full width tear of the distal supraspinatus tendon with retraction to the level of the superior humeral head measuring at least 2.5 cm from its footplate. Contiguous small full-thickness tear of the anterior insertional fibers of the infraspinatus tendon. Mid to posterior infraspinatus tendon fibers are grossly intact. Subscapularis and teres minor tendons are intact. Mild/moderate supraspinatus muscle atrophy. Long head biceps tendon is grossly intact. Degenerative tearing of the posterior labrum which is severely diminutive and frayed. No paralabral cysts. No focal full-thickness chondral defects. Small glenohumeral joint effusion without significant synovitis. Moderate acromioclavicular joint osteoarthritis including articular surface irregularity and small marginal osteophytes. Negative for acute fracture or marrow replacement. Enthesopathic cysts throughout the greater and lesser humeral tuberosities, largest at the lesser tuberosity measuring 15 mm in diameter. Fluid in the subacromial/subdeltoid bursa secondary to the supraspinatus tendon tear. MRI/Upper Ext Joint Only(Routine) IMPRESSION: 1. Full-thickness full width retracted tear of the supraspinatus tendon. 2. Full-thickness partial width tear of the anterior fibers of the infraspinatus tendon, contiguous with the supraspinatus tendon tear. 3. Degenerative tearing of the posterior labrum. 4. Moderate acromioclavicular joint osteoarthritis. Reading Location: [facility] CC: Dr. Eugenio Mayen DO; Dr. Jacob Dominguez MD 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: Signed Normal [facility] Brain/Head without Contrasto n 11-25-2024 Brain/Head without Contrast [facility] Imaging Services [address] [place] [address] Brain/Head without Contrast MR#: [id number] Acct: [id number] Name: WINSTON MARI Rep #: [id number] : 1955 M 69 From: Patricia Del Cid MD PCP: Dr. Eugenio Mayen DO Status: REG ER Study: Brain/Head without Contrast Date of Exam: 02/13 Exam# [id number] Ordering Dr: Abril Velarde DO EXAM: CT Head Without Intravenous Contrast CLINICAL INDICATION: TECHNIQUE: Axial computed tomography images of the head/brain without intravenous contrast. This CT exam was performed using one or more of the following dose reduction techniques: automated exposure control, adjustment of the mA and/or kV according to patient size, and/or use of iterative reconstruction technique. COMPARISON: CT Head dated 10/19/2023 FINDINGS: BRAIN AND EXTRA-AXIAL SPACES: No acute intracranial hemorrhage, midline shift or mass effect. If symptoms persist, further evaluation with MRI is recommended. No significant white matter disease. BONES/JOINTS: Unremarkable. No acute fracture. SOFT TISSUES: Unremarkable. SINUSES: Unremarkable as visualized. No acute sinusitis. MASTOID AIR CELLS: Unremarkable as visualized. No mastoid effusion. CT/Brain/Head without Contrast IMPRESSION: No acute intracranial hemorrhage, midline shift or mass effect. If symptoms persist, further evaluation with MRI is recommended. Reading Location: [facility] CC: Dr. Eugenio Mayen DO; Dr. Abril Velarde DO 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: Signed Normal [facility] Emergency Department Summary on 11-25-2024 Emergency Department Summary [facility] Medical Records Department [address] [place] [address] Emergency Department Summary 11/25/24 MR#: [id number] Acct: [id number] Name: WINSTON MARI Rep #: [id number] : 1955 69 From: Abril Velarde DO PCP: Dr. Eugenio Mayen, DO Status:DEP ER Location: ED HPI History of Present Illness Chief Complaint: Headache Detail of Chief Complaint: Head and neck pain Informant: patient Narrative Narrative: Patient presents to the emergency department with complaint of head and neck pain after sustaining a fall 2 weeks ago. 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 Unsure if he lost consciousness but remembers waking up on the ground with people around him. Patient's had intermittent headaches since that time. Complains of pain in his neck specially left side of his neck when he turns his head to the left. Also complains of some left shoulder pain. Patient on Plavix. He has history of intracranial hemorrhage years ago from a fall. Currently rates his headache a 9 out of 10. He has been taken Tylenol at home as well as gabapentin without pain relief. He has had no vomiting. [facility] Medical History Anemia GERD (gastroesophageal reflux disease) Left shoulder pain Hemorrhoid Epilepsy Sciatica High cholesterol Home Medications ???Medication ???Instructions ???Recorded ???Last Taken ???Type gabapentin 300 mg capsule 300 mg PO 4X/DAY 04/02/22 Unknown History hydrocortisone acetate 25 mg 25 mg VT QHS #12 ea 04/27/22 Unkno wn Rx rectal suppository (Anusol-HC) atorvastatin 40 mg tablet (Lipitor) 40 mg PO QHS 01/13/23 Unknown H istory polyethylene glycol 3350 17 17 g PO DAILY #119 grams 05/31/23 Unknown Rx gram/dose oral powder (ClearLax) oxycodone-acetaminophen 5 mg-325 1 tab PO Q8H PRN pain 2 days #10 0 07/06/24 Unknown Rx mg tablet (Percocet) tabs cyclobenzaprine 5 mg tablet 5 mg PO TID PRN muscle spasm 4 Unknown Rx days #12 tabs ondansetron 4 mg disintegrating 4 mg PO Q6H PRN nausea and 5 Unknown Rx tablet vomiting #10 tabs clopidogrel 75 mg tablet 75 mg PO QDAY 11/13/24 Unknown His tory duloxetine 30 mg capsule,delayed See Rx Instructions PO QDAY Unknown History release ferrous sulfate 325 mg (65 mg 325 mg PO QDAY 11/13/24 Unknown Hi story iron) tablet pantoprazole 40 mg tablet,delayed 40 mg PO QDAY 11/13/24 Unknown Hi story release ondansetron 4 mg disintegrating 4 mg PO Q8H PRN PRN Nausea #10 tab s 11/25/24 Unknown Rx tablet oxycodone-acetaminophen 5 mg-325 1 tab PO Q8H PRN pain 3 days #10 0 11/25/24 Unknown Rx mg tablet (Percocet) tabs Allergy/AdvReac Type Severity Reaction Status Date / Time adhesive tape (tape) AdvReac Rash Verified 11/25/24 10:50 hydrocodone (From [place]) AdvReac Upset Verified 11/25/24 10:50 Stomach ibuprofen AdvReac Upset Verified 11/25/24 10:50 Stomach ketorolac (From Toradol) AdvReac Rash Verified 11/25/24 10:50 meloxicam (From Mobic) AdvReac Muscle Verified 11/25/24 10:50 weakness naproxen AdvReac Rash Verified 11/25/24 10:50 tramadol AdvReac Upset Verified 11/25/24 10:50 Stomach Family History Other Cancer Diabetes Heart disease Surgical History Leg fracture, left S/P clamping of cerebral aneurysm Social History household members: significant other Smoking Status: Former smoker alcohol intake: former substance use type: does not use ROS ROS ED Review of Systems ROS Unobtainable: other Constitutional Constitutional ED: Reports lethargy; Denies chills, fever(s), sweats or weight loss Eyes Eyes: Denies blurry vision, change in vision or diplopia ENT ENT ED: Denies rhinorrhea or sore throat Cardiovascular Cardiovascular: Denies chest pain, orthopnea or racing heartbeat Respiratory/Chest Respiratory/Chest: Reports dyspnea and dyspnea on exertion; Denies cough, orthopnea or sputum Gastrointestinal Gastrointestinal: Denies abdominal pain, diarrhea, nausea or vomiting Genitourinary Genitourinary ED: Denies dysuria, hematuria or urinary frequency Musculoskeletal Musculoskeletal: Reports neck pain and other Details: Left shoulder pain ; Denies arthralgias, back pain or myalgias Integumentary Denies abscess, Abrasions or rash Neurologic Neurologic: Reports headache(s); Denies weakness Psychiatric Psychiatric: Denies anxiety, depression or suicidal thoughts Endocrine Endocrinology: Denies polydipsia, polyp (more content not included)... Normal [facility] Shoulder min 2 Viewson 11-25 Shoulder min 2 Views [facility] Services [address] [place] [address] Shoulder min 2 Views MR#: [id number] Acct: [id number] Name: WINSTON MARI Rep #: [id number] : 1955 M 69 From: Patricia Del Cid MD PCP: Dr. Eugenio Mayen DO Status: REG ER Study: Shoulder min 2 Views Date of Exam: 11/25/24 Exam# [id number] Ordering Dr: Abril Velarde DO EXAM: XR Left Shoulder Complete, 2 or More Views CLINICAL INDICATION: TECHNIQUE: Two or more views of the left shoulder. COMPARISON: No relevant prior studies available. FINDINGS: BONES/JOINTS: Unremarkable. No acute fracture. No dislocation. SOFT TISSUES: Unremarkable. RAD/Shoulder min 2 Views IMPRESSION: No acute fracture. Reading [facility] CC: Dr. Eugenio Mayen DO; Dr. Abril Velarde DO 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: Signed Normal [facility] Spine Cervical without Contr ason 11-25-2024 Spine Cervical without Contras [facility] Imaging Services [address] [place] [address] Spine Cervical without Contras MR#: [id number] Acct: [id number] Name: WINSTON MARI Rep #: [id number] : 1955 M 69 From: Patricia Del Cid MD PCP: Dr. Eugenio Mayen DO Status: REG ER Study: Spine Cervical without Contras Date of Exam: 0 11/25/24 Exam# [id number] Ordering Dr: Abril Velarde DO EXAM: CT Cervical Spine Without Intravenous Contrast CLINICAL INDICATION: TECHNIQUE: Axial computed tomography images of the cervical spine without intravenous contrast. This CT exam was performed using one or more of the following dose reduction techniques: automated exposure control, adjustment of the mA and/or kV according to patient size, and/or use of iterative reconstruction technique. COMPARISON: No relevant prior studies available. FINDINGS: VERTEBRAE: Degenerative facet arthropathy throughout the cervical spine. No acute fracture. DISCS/SPINAL CANAL/NEURAL FORAMINA: Degenerative disc disease throughout the cervical spine. SOFT TISSUES: Unremarkable. CT/Spine Cervical without Contras IMPRESSION: 1. No acute fracture. 2. Degenerative changes of the cervical spine as described. Reading Location: [facility] CC: Dr. Eugenio Mayen DO; Dr. Abril Velarde DO 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: Signed Normal [facility] Lumbar Spine 2 or 3 Viewson 11-18-2024 Lumbar Spine 2 or 3 Views [facility] Imaging Services [address] [place] [address] Lumbar Spine 2 or 3 Views MR#: [id number] Acct: [id number] Name: WINSTON MARI Rep #: [id number] : 1955 M 69 From: Will Padron DO PCP: Dr. Eugenio Mayen DO Status: DEP AMB Study: Lumbar Spine 2 or 3 Views Date of Exam: Exam# [id number] Ordering Dr: Aiyana Campbell PROCEDURE: LUMBAR SPINE 2 OR 3 VIEWS REASON FOR EXAM: Back pain TECHNIQUE: 2 view(s) of the lumbar spine COMPARISON: 10/09/2023. Prior lumbar CT spine dated 08/09/2023 FINDINGS: 5 lumbar type vertebral levels. Chronic appearing compression deformities involving the superior anterior endplates of L2 and L4. No acute lumbar spine fracture or dislocation is identified. There is mild multilevel degenerative disc and endplate changes seen at the L4-5 and L5-S1 levels, unchanged. Remaining intervertebral discs appear relatively stable. Multilevel facet arthrosis mostly involving the lower lumbar spine.. Remaining osseous structures are intact. Bilateral hips appear within normal limits. Trace phlebolith within the left pelvis. Few air-fluid level seen within the right abdomen RAD/Lumbar Spine 2 or 3 Views IMPRESSION: 1. Chronic appearing compression deformities involving the superior endplates of L2 and L4. 2. No acute lumbar spine fractures or dislocations are identified. 3. Incidentally noted, a few air-fluid levels within the bowel loops in the right abdomen. Correlate clinically for ileus or developing bowel obstruction. Reading Location: [facility] CC: NIKI Rock; Dr. Eugenio Mayen DO 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: Signed Normal [facility] Orthopedic Visit Reporton Orthopedic Visit Report [facility] [address] [place] [address] OFFICE VISIT Date of Service: 11/18/24 MR#: [id number] Acct: [id number] Name: WINSTON MARI Rep #: [id number] : 1955 Provider: NIKI Rock Age/Sex: 69/M Location: [facility] Status: Signed Intake Vital Signs 11/05/24 14:16 11/12/24 12:16 Height 5 ft 11 in 5 ft 11 in Intake Visit Reasons: LUMBAR SPINE Allergies adhesive tape (tape) Adverse Reaction (Verified 11/18/24 13:30) Rash hydrocodone (From [place]) Adverse Reaction (Verified 11/18/24 13:30) Upset Stomach ibuprofen Adverse Reaction (Verified 11/18/24 13:30) Upset Stomach ketorolac (From Toradol) Adverse Reaction (Verified 11/18/24 13:30) Rash meloxicam (From Mobic) Adverse Reaction (Verified 11/18/24 13:30) Muscle weakness naproxen Adverse Reaction (Verified 11/18/24 13:30) Rash tramadol Adverse Reaction (Verified 11/18/24 13:30) Upset Stomach Medications ???Medication ???Instructions ???Recorded ???Confirmed ???Type gabapentin 300 mg capsule 300 mg PO 4X/DAY 04/02/22 11/18/24 History hydrocortisone acetate 25 mg 25 mg VT QHS #12 ea 04/27/22 11/18/24 Rx rectal suppository (Anusol-HC) atorvastatin 40 mg tablet (Lipitor) 40 mg PO QHS 01/13/23 11/18/24 History polyethylene glycol 3350 17 17 g PO DAILY #119 grams 05/31/23 11/18/24 Rx gram/dose oral powder (ClearLax) oxycodone-acetaminophen 5 mg-325 1 tab PO Q8H PRN pain 2 days #10 07/06/24 11/18/24 Rx mg tablet (Percocet) tabs cyclobenzaprine 5 mg tablet 5 mg PO TID PRN muscle spasm 4 11/05/24 11/18/24 Rx days #12 tabs ondansetron 4 mg disintegrating 4 mg PO Q6H PRN nausea and 11/05/24 11/18/24 Rx tablet vomiting #10 tabs clopidogrel 75 mg tablet 75 mg PO QDAY 11/13/24 11/18/24 History duloxetine 30 mg capsule,delayed See Rx Instructions PO QDAY 11/13/24 11/18/24 History release ferrous sulfate 325 mg (65 mg 325 mg PO QDAY 11/13/24 11/18/24 History iron) tablet pantoprazole 40 mg tablet,delayed 40 mg PO QDAY 11/13/24 11/18/24 History release Have you fallen in the past year?: Yes PFSH Medical History Anemia GERD (gastroesophageal reflux disease) Left shoulder pain Hemorrhoid Epilepsy Sciatica High cholesterol Surgical History Leg fracture, left S/P clamping of cerebral aneurysm Family History Other Cancer Diabetes Heart disease Social History household members: significant other Smoking Status: Former smoker alcohol intake: former substance use type: does not use HPI LUMBAR SPINE Details: This documentation accurately reflects the service provided and the decisions made by me, NIKI Rock 11/18/24 5417. Part of today???s visit was documented by Araseli POPE, acting as scribe. WINSTON MARI is a 69 year old M here today for ED f/u on low back pain. He states that in 2022 he fell off a roof about 30ft and fractured L2 and L4 and was sent to [facility] for 3-4 days. He was then recommended to have a kyphoplasty but he refused it because of the chance of it leaking out and getting into his bloodstream. He then had a recent fall when he fell off a 10ft ladder trying to fix a light on a [employer] go round and fractured L1. He was seen in the ER 2 weeks ago. He states that he is having trouble getting comfortable or sleeping. He does have pain in his left leg that radiates up into his buttock and into his low back. He says that this leg pain is located over his lateral left leg. He does have tingling in his left leg. He does take Cymbalta and gabapentin for pain. He has seen pain management in the past at [facility]. Worsening pain over the last week with foot numbness . Pain meds and resting improves pain. He saw physical therapy for his shoulder a couple of months ago and he did about a month of physical therapy going 2 times per week. Ortho Exam General General: Yes distressed Neurologic: Yes alert and Yes oriented x3 Spine SPINE TESTING CERVICAL THORACIC LUMBAR Musculoskeletal Strength 0=absent - 5=normal Details: Neurological exam of the lower extremities shows 4 strength left ankle dorsiflexion, all other muscle groups show 5 power. Normal sensations across all dermatomes. No hyperreflexia. He has midline and paraspinal tenderness. Antalgic when going from sitting to standing. The patient did stay standing for the majority of the exam due to the pain. Coding Level of Care Code Off vis,est,level 4 Diagnoses Degeneration of intervertebral disc of lumbar region with discogenic back pain and lower extremity pain M51.362 Disc-relate (more content not included)... Normal [facility] Orthopedic Visit Reporton Orthopedic Visit Report [facility] [address] [place] [address] [address] [place], [place] [address] OFFICE VISIT Date of Service: 11/13/24 MR#: [id number] Acct: [id number] Name: WINSTON MARI Rep #: [id number] : 1955 Provider: Dr. Jacob mckeon MD Age/Sex: 69/M Location: [facility] Status: Signed Intake Vital Signs 11/05/24 14:16 11/12/24 12:16 Height 5 ft 11 in 5 ft 11 in Weight: 161 lb BMI 22.4 Intake Visit Reasons: LEFT SHOULDER Accompanied by: Self Is patient in pain?: Yes (left arm and low back) Pain scale (1-10): 9 Allergies adhesive tape (tape) Adverse Reaction (Verified 11/13/24 14:08) Rash hydrocodone (From [place]) Adverse Reaction (Verified 11/13/24 14:08) Upset Stomach ibuprofen Adverse Reaction (Verified 11/13/24 14:08) Upset Stomach ketorolac (From Toradol) Adverse Reaction (Verified 11/13/24 14:08) Rash meloxicam (From Mobic) Adverse Reaction (Verified 11/13/24 14:08) Muscle weakness naproxen Adverse Reaction (Verified 11/13/24 14:08) Rash tramadol Adverse Reaction (Verified 11/13/24 14:08) Upset Stomach Have you fallen in the past year?: Yes PFSH Medical History (Updated 11/13/24 @ 14:17 by Carla Phelps) Anemia GERD (gastroesophageal reflux disease) Left shoulder pain Hemorrhoid Epilepsy Sciatica High cholesterol Surgical History (Updated 11/13/24 @ 14:17 by Carla Phelps) Leg fracture, left S/P clamping of cerebral aneurysm Family History (Updated 11/13/24 @ 14:18 by Carla Phelps) Other Cancer Diabetes Heart disease Social History household members: significant other Smoking Status: Former smoker alcohol intake: former substance use type: does not use HPI LEFT SHOULDER Details: This documentation accurately reflects the service provided and the decisions made by me, Dr. Jacob Dominguez MD 11/13/24 1312. Part of today???s visit was documented by [ ], acting as scribe. WINSTON MARI is a 69 year old M here today for L shoulder pain. This started about a year ago. Patient [id number]. He fell off a ladder as well over the last week and feels like he can barely lift up his arm. He works in the [employer] travels around quite a bit this summer his nephew on some [employer] games has to maintain those follow-up for ladder a week ago having anterior and lateral based shoulder pain worse with lifting. The patient has not had cortisone injections in the past and refuses to have any more as had 1 in the back did not really work. Has done physical therapy but that is not helping. Has never had surgery on her shoulder. Supplemental Info [facility] Imaging Services [address] [place], [place] [address] Shoulder min 2 Views MR#: [id number] Acct: [id number] Name: WINSTON MARI Rep #: [id number] : 1955 M 69 From: Richard Cortez DO PCP: Dr. Eugenio Mayen DO Status: REG ER Study: Shoulder min 2 Views Date of Exam: 11/05/24 Exam# [id number] Ordering Dr: Dennis Strickland DO [id number] INDICATION: fall pain EXAMINATION/TECHNIQUE: X-RAY - LEFT XR Shoulder Min 2 Views 2 VIEWS COMPARISON: FINDINGS: SOFT TISSUES: No soft tissue swelling or gas. No radiopaque foreign body. BONES/JOINTS: No acute fracture or subluxation.. Elevated humerus may be related to underlying rotator cuff injury. Old mid humeral shaft fracture. Degenerative hypertrophy at the acromioclavicular articulation. No sclerotic or destructive changes observed. RAD/Shoulder min 2 Views IMPRESSION: Elevated humerus may be related to underlying rotator cuff injury. Correlate with MRI if needed. Old mid humeral shaft fracture. Degenerative hypertrophy at the acromioclavicular articulation. Electronically Signed: Richard Cortez DO at 17:00 EST Reading Location ID and State: [facility] [place] Tel [phone], Service support , [facility] Imaging Services [address] [place] [address] Humerus min 2 Views MR#: [id number] Acct: [id number] Name: WINSTON MARI Rep #: [id number] : 1955 M 69 From: Richard Cortez DO PCP: Dr. Eugenio Mayen, DO Status: REG ER Study: Humerus min 2 Views Date of Exam: 11/05/24 Exam# [id number] Ordering Dr: Dennis Strickland DO [id number] INDICATION: fall, pain EXAMINATION/TECHNIQUE (more content not included)... Normal [facility] Absolute neutrophil countOrd ered By: Dennis Strickland on 11-05-2024 Neutrophils (Bld) [#/Vol] 5.8 10*3/uL 2.0-7.7 [facility] Bacteria LM.HPF (Urine sed) [#/Area]Ordered By: Dennis Strickland on 11-05-2024 Urine Bacteria RARE /hpf None Seen [facility] Basic Metabolic Profile (BMP )on 11-05-2024 BUN/CRE 11.9 RATIO Normal 10-20 [facility] Comment on above: Performed By: #### L 500.2500, L500.3400 #### [facility] [address] [place], [address] CA,Total 8.4 mg/dL Low 8.5-10.1 [facility] Comment on above: Performed By: #### L 500.2500, L500.3400 #### [facility] [address] [place], [address] Chloride [Moles/Vol] 107 mmol/L Normal 98-107 [facility] Comment on above: Performed By: #### L 500.2500, L500.3400 #### [facility] [address] [place], [address] CO2 [Moles/Vol] 27.0 mmol/L Normal 21.0-32.0 [facility] Comment on above: Performed By: #### L 500.2500, L500.3400 #### [facility] [address] [place], [address] Creatinine [Mass/Vol] 1.01 mg/dL Normal 0.70-1.30 [facility] Comment on above: Result Comment: The validity of the calculated GFR GFRAA in patients over 70 years has not been determined. Clinical correlation is essential. Performed By: #### L 500.2500, L500.3400 #### [facility] [address] [place], [address] ECRCL 70.59 ml/min Normal [facility] Comment on above: Performed By: #### L 500.2500, L500.3400 #### [facility] [address] [place], [address] EST GFR - AA 94 mL/min Normal >60 [facility] Comment on above: Result Comment: Afri can Iranian GFR Calc Performed By: #### L 500.2500, L500.3400 #### [facility] [address] [place], [address] GAP 6 Normal 5-15 [facility] Comment on above: Performed By: #### L 500.2500, L500.3400 #### [facility] [address] [place], [address] GFR/1.73 sq M.predicted among non-blacks MDRD (S/P/Bld) [Vol rate/Area] 78 mL/min/{1.73_m2} Normal >60 [facility] Comment on above: Result Comment: Non- GFR Calc Performed By: #### L 500.2500, L500.3400 #### [facility] [address] [place], [address] Glucose [Mass/Vol] 80 mg/dL Normal 74-106 [facility] Comment on above: Performed By: #### L 500.2500, L500.3400 #### [facility] [address] [place], [address] Potassium [Moles/Vol] 3.6 mmol/L Normal 3.5-5.1 [facility] Comment on above: Performed By: #### L 500.2500, L500.3400 #### [facility] [address] [place], [address] Sodium [Moles/Vol] 140 mmol/L Normal 136-145 [facility] Comment on above: Performed By: #### L 500.2500, L500.3400 #### [facility] [address] [place], [address] Urea nitrogen [Mass/Vol] 12 mg/dL Normal 7-18 [facility] Comment on above: Performed By: #### L 500.2500, L500.3400 #### [facility] [address] [place], [address] BUN Normal 7-18 [facility] Comment on above: Result Comment: This specimen has been REJECTED due to Laboratory criteria: Hemolyzed. STANLEY has been notified of need of recollection. 11/05/24 1548 Heather Lollo Performed By: #### L 100.0100, L500.3400, L500.2500 ####[facility] [address] [place], [address] BUN/CRE Normal 10-20 [facility] Comment on above: Result Comment: This specimen has been REJECTED due to Laboratory criteria: Hemolyzed. STANLEY has been notified of need of recollection. 11/05/24 1548 Heather Lollo Performed By: #### L 100.0100, L500.3400, L500.2500 ####[facility] [address] [place], [address] CA,Total Normal 8.5-10.1 [facility] Comment on above: Result Comment: This specimen has been REJECTED due to Laboratory criteria: Hemolyzed. STANLEY has been notified of need of recollection. 11/05/24 1548 Heather Lollo Performed By: #### L 100.0100, L500.3400, L500.2500 ####[facility] [address] [place], [address] CL Normal 98-107 [facility] Comment on above: Result Comment: This specimen has been REJECTED due to Laboratory criteria: Hemolyzed. STANLEY has been notified of need of recollection. 11/05/24 1548 Heather Lollo Performed By: #### L 100.0100, L500.3400, L500.2500 ####[facility] [address] [place], [address] CO2 Normal 21.0-32.0 [facility] Comment on above: Result Comment: This specimen has been REJECTED due to Laboratory criteria: Hemolyzed. STANLEY has been notified of need of recollection. 11/05/24 1548 Heather Lollo Performed By: #### L 100.0100, L500.3400, L500.2500 ####[facility] [address] [place], [address] CREAT,SERUM Normal 0.70-1.30 [facility] Comment on above: Result Comment: This specimen has been REJECTED due to Laboratory criteria: Hemolyzed. STANLEY has been notified of need of recollection. 11/05/24 1548 Heather Lollo Performed By: #### L 100.0100, L500.3400, L500.2500 ####[facility] [address] [place], [address] EST GFR Normal >60 [facility] Comment on above: Result Comment: This specimen has been REJECTED due to Laboratory criteria: Hemolyzed. STANLEY has been notified of need of recollection. 11/05/24 1548 Heather Lollo Performed By: #### L 100.0100, L500.3400, L500.2500 ####[facility] [address] [place], [address] EST GFR - AA Normal >60 [facility] Comment on above: Result Comment: This specimen has been REJECTED due to Laboratory criteria: Hemolyzed. STANLEY has been notified of need of recollection. 11/05/24 1548 Heather Lollo Performed By: #### L 100.0100, L500.3400, L500.2500 ####[facility] [address] [place], [address] GAP Normal 5-15 [facility] Comment on above: Result Comment: This specimen has been REJECTED due to Laboratory criteria: Hemolyzed. STANLEY has been notified of need of recollection. 11/05/24 1548 Heather Lollo Performed By: #### L 100.0100, L500.3400, L500.2500 ####[facility] [address] [place], [address] GLU Normal 74-106 [facility] Comment on above: Result Comment: This specimen has been REJECTED due to Laboratory criteria: Hemolyzed. STANLEY has been notified of need of recollection. 11/05/24 1548 Heather Lollo Performed By: #### L 100.0100, L500.3400, L500.2500 ####[facility] [address] [place], [address] Potassium Normal 3.5-5.1 [facility] Comment on above: Result Comment: This specimen has been REJECTED due to Laboratory criteria: Hemolyzed. STANLEY has been notified of need of recollection. 11/05/24 1548 Heather Lollo Performed By: #### L 100.0100, L500.3400, L500.2500 ####[facility] [address] [place], [address] Basic Metabolic Profile (BMP) Normal 136-145 [facility] Comment on above: Result Comment: This specimen has been REJECTED due to Laboratory criteria: Hemolyzed. STANLEY has been notified of need of recollection. 11/05/24 1548 Heather Montez Performed By: #### L 100.0100, L500.3400, L500.2500 ####[facility] [address] [place], [place], [address] Basophil percentageOrdered B y: Dennis Strickland on 11-05-2024 Basophils/100 WBC (Bld) 0.7 % 0-1 [facility] Bilirubin Test strip Ql (U)O rdered By: Dennis Strickland on 11-05-2024 Bilirubin Ql (U) Negative Negative [facility] Bilirubin directOrdered By: Dennis Strickland on 11-05-2024 Bilirubin.direct [Mass/Vol] 0.21 mg/dL 0.00-0.30 [facility] Bilirubin, totalOrdered By: Dennis Strickland on 11-05-2024 Bilirubin [Mass/Vol] 1.00 mg/dL 0.20-1.00 [facility] Comment on above: For patients on eltr ombopag therapy, use of Dimension [place] TBIL is not recommended. Blood urea nitrogen (BUN)/cr eatinine ratioOrdered By: Dennis Strickland on 11-05-2024 Urea nitrogen/Creatinine [Mass ratio] 11.9 mg/mg 10-20 [facility] Brain/Head without Contrasto n 11-05-2024 Brain/Head without Contrast [facility] Imaging Services [address] [place], [place] [address] Brain/Head without Contrast MR#: [id number] Acct: [id number] Name: WINSTON MARI Paul Rep #: [id number] : 1955 M 69 From: Sorin galindo MD PCP: Dr. Eugenio Mayen, DO Status: REG ER Study: Brain/Head without Contrast Date of Exam: 10/22 03/15 Exam# [id number] Ordering Dr: Dennis Strickland DO [id number] STUDY: CT BRAIN WITHOUT CONTRAST REASON FOR EXAM: Male, 69 years old. Trauma RADIATION DOSAGE (If Supplied By Facility): CTDIvol = ( 44.99 ) mGy, DLP = ( 829.85 ) mGycm TECHNIQUE: Transaxial CT imaging of the brain was performed without administration of intravenous contrast material. Individualized dose optimization techniques were used for this CT. COMPARISON: Comparison is made with prior study October 09, 2023. FINDINGS: Normal soft tissue structures. Findings suggestive of prior left posterior occipital craniotomy. Normal size ventricles and extra-axial spaces for the patient''s age. Normal white matter tracts of the cerebral hemispheres. Normal basal ganglia and thalami. Normal brainstem. Normal cerebellum. There is no intracranial hemorrhage. There are no findings of an acute ischemic infarction. Normal visualized paranasal sinuses. CT/Brain/Head without Contrast IMPRESSION: No acute abnormality is seen. Electronically Signed: Sorin Sorensen MD at 15:46 EST Reading Location ID and State: [address] [place] [address] , Service support , CC: Dr. Eugenio Mayen DO; Dr. Dennis Strickland DO 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: Signed Normal [facility] CBC W/Diff, Automatedon 10-22 Absolute Lymph 1.68 X10 3/uL Normal 0.83-4.51 [facility] Comment on above: Performed By: #### L 100.0100, L500.3400, L500.2500 ####[facility] [address] [place], [place], [id number] Absolute Neut 5.8 X10 3/uL Normal 2.0-7.7 [facility] Comment on above: Performed By: #### L 100.0100, L500.3400, L500.2500 ####[facility] [address] [place], [address] Basophils/100 WBC (Bld) 0.7 % Normal 0-1 [facility] Comment on above: Performed By: #### L 100.0100, L500.3400, L500.2500 ####[facility] [address] [place], [address] Eosinophils/100 WBC (Bld) 3.3 % Normal 0-5 [facility] Comment on above: Performed By: #### L 100.0100, L500.3400, L500.2500 ####[facility] [address] [place], [address] Erythrocyte distribution width (RBC) [Ratio] 13.8 % Normal 11.6-14.6 [facility] Comment on above: Performed By: #### L 100.0100, L500.3400, L500.2500 ####[facility] [address] [place], [address] Hematocrit (Bld) [Volume fraction] 39.3 % Low 40-54 [facility] Comment on above: Performed By: #### L 100.0100, L500.3400, L500.2500 ####[facility] [address] [place], [address] Hemoglobin (Bld) [Mass/Vol] 13.1 g/dL Normal 13.0-16.5 [facility] Comment on above: Performed By: #### L 100.0100, L500.3400, L500.2500 ####[facility] [address] [place], [address] IG% 0.200 Normal 0.0-0.9 [facility] Comment on above: Result Comment: IG% - Immature Granulocytes (promyelocytes, myelocytes and metamyelocytes) > 1% indicates that a LEFT SHIFT is Present. Performed By: #### L 100.0100, L500.3400, L500.2500 ####[facility] [address] [place], [address] Lymphocytes/100 WBC (Bld) 19.6 % Normal 19-41 [facility] Comment on above: Performed By: #### L 100.0100, L500.3400, L500.2500 ####[facility] [address] [place], [address] MCH (RBC) [Entitic mass] 30.1 pg Normal 27.0-32.0 [facility] Comment on above: Performed By: #### L 100.0100, L500.3400, L500.2500 ####[facility] [address] [place], [address] MCHC (RBC) [Mass/Vol] 33.3 g/dL Normal 32-36 [facility] Comment on above: Performed By: #### L 100.0100, L500.3400, L500.2500 ####[facility] [address] [place], [address] MCV (RBC) [Entitic vol] 90.3 fL Normal 80-94 [facility] Comment on above: Performed By: #### L 100.0100, L500.3400, L500.2500 ####[facility] [address] [place], [address] Monocytes/100 WBC (Bld) 8.7 % Normal 0-10 [facility] Comment on above: Performed By: #### L 100.0100, L500.3400, L500.2500 ####[facility] [address] [place], [address] Neutrophils/100 WBC (Bld) 67.5 % Normal 47-70 [facility] Comment on above: Performed By: #### L 100.0100, L500.3400, L500.2500 ####[facility] [address] [place], [address] Nucleated RBC (Bld) [#/Vol] 0 10*3/uL Normal 0-5 [facility] Comment on above: Performed By: #### L 100.0100, L500.3400, L500.2500 ####[facility] [address] [place], [address] Platelet mean volume (Bld) [Entitic vol] 8.7 fL Normal 6.2-12.0 [facility] Comment on above: Performed By: #### L 100.0100, L500.3400, L500.2500 ####[facility] [address] [place], [address] Platelets (Bld) [#/Vol] 386 10*3/uL Normal 150-450 [facility] Comment on above: Performed By: #### L 100.0100, L500.3400, L500.2500 ####[facility] [address] [place], [address] RBC (Bld) [#/Vol] 4.35 10*6/uL Low 4.6-6.2 [facility] Comment on above: Performed By: #### L 100.0100, L500.3400, L500.2500 ####[facility] [address] [place], [address] RDW SD 45.1 fl High 35.1-43.9 [facility] Comment on above: Performed By: #### L 100.0100, L500.3400, L500.2500 ####[facility] [address] [place], [address] WBC (Bld) [#/Vol] 8.6 10*3/uL Normal 4.4-11.0 [facility] Comment on above: Performed By: #### L 100.0100, L500.3400, L500.2500 ####[facility] [address] [place], [address] CT Chest, Abd, Pel w/Contras ton 11-05-2024 CT Chest, Abd, Pel w/Contrast [facility] Imaging Services [address] [place] [address] CT Chest, Abd, Pel w/Contrast MR#: [id number] Acct: [id number] Name: WINSTON MARI Rep #: [id number] : 1955 M 69 From: Sorin galindo MD PCP: Dr. Eugenio Mayen, DO Status: REG ER Study: CT Chest, Abd, Pel w/Contrast Date of Exam: Exam# [id number] Ordering Dr: Dennis Strickland DO [id number] STUDY: CT CHEST, ABDOMEN T PELVIS WITH CONTRAST REASON FOR EXAM: Male, 69 years old. fall off lader neck and back pain -- TRAUMA ONLY: IV Contrast. Dont wait for creatinine RADIATION DOSAGE (If Supplied By Facility): CTDIvol = ( 14.25 ) mGy, DLP = ( 1414.59 ) mGycm TECHNIQUE: Transaxial imaging was performed following intravenous administration of IV 100mL Isovue-300. Individualized dose optimization techniques were used for this CT. COMPARISON: No relevant priors. FINDINGS: CHEST Mild increased linear markings at the lung bases suggestive of scarring. There is no demonstrated pleural abnormality. Normal heart and pericardium. Normal mediastinum. Normal hilar regions. Normal unenhanced pulmonary arteries. There is atherosclerotic calcification of the aortic arch. There are multi-level degenerative changes of the thoracic spine. Loss of height of the L1 superior endplate. There is no demonstrated abnormality of the visualized upper abdomen. ABDOMEN Normal liver. Normal gallbladder and extrahepatic biliary system. Normal spleen. Normal pancreas. Normal bilateral adrenal glands. Small bilateral renal cysts. Normal visualized stomach. Normal small intestine. There are multiple colonic diverticula consistent with diverticulosis. The appendix is visualized and appears normal. Normal abdominal aorta. Normal inferior vena cava. Normal retroperitoneum. Normal abdominal wall. Loss of height of the superior endplate of the L2 vertebrae. With the history of trauma, this could represent a compression fracture. PELVIS Normal urinary bladder. Mild enlargement of the prostate. There is no pelvic fluid. There is no pelvic lymphadenopathy or mass lesion. Normal visualized pelvic arteries. CT/CT Chest, Abd, Pel w/Contrast IMPRESSION: Findings suggestive of a nondisplaced compression fracture of the superior endplate of the L2 vertebrae. Electronically Signed: Sorin Sorensen MD at 15:45 EST Reading Location ID and State: [address] [place] [address] , Service support , CC: Dr. Eugenio Mayen DO; Dr. Dennis Strickland DO 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: Signed Normal [facility] Carbon dioxide measurementOr dered By: Dennis Strickland on 11-05-2024 CO2 [Moles/Vol] 27.0 mmol/L 21.0-32.0 [facility] Chloride measurementOrdered By: Dennis Strickland on 11-05-2024 Chloride [Moles/Vol] 107 mmol/L 98-107 [facility] Elbow min 3 Viewson 11-05-19 25 Elbow min 3 Views [facility] Imaging Services [address] [place], [place] [address] Elbow min 3 Views MR#: [id number] Acct: [id number] Name: WINSTON MARI Rep #: [id number] : 1955 M 69 From: Richard Cortez DO PCP: Dr. Eugenio Mayen DO Status: REG ER Study: Elbow min 3 Views Date of Exam: 11/05/24 Exam# [id number] Ordering Dr: Dennis Strickland DO [id number] INDICATION: fall, pain EXAMINATION/TECHNIQUE: X-RAY - LEFT XR Elbow Min 3 Views COMPARISON: FINDINGS: SOFT TISSUES: No soft tissue swelling or gas. No radiopaque foreign body. BONES/JOINTS: There is no displacement of the anterior or posterior fat pads. Old mid humeral shaft fracture. No acute fracture or subluxation. Normal alignment. Preservation of the joint space. No sclerotic or destructive changes observed. RAD/Elbow min 3 Views IMPRESSION: No acute bony injury. Electronically Signed: Richard Cortez DO at 17:34 EST Reading Location ID and State: [facility] / [place] Tel [phone], Service support , CC: Dr. Eugenio Mayen DO; Dr. Dennis Strickland DO 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: Signed Normal [facility] Emergency Department Summary on 11-05-2024 Emergency Department Summary [facility] Medical Records Department [address] [place] [address] Emergency Department Summary 11/05/24 MR#: [id number] Acct: [id number] Name: WINSTON MARI Rep #: [id number] : 1955 69 From: Dennis Strickland DO PCP: Dr. Eugenio Mayen DO Status:REG ER Location: ED ADDENDUM by Dr. Dennis Strickland DO on 11/05/24 at 1840 Patient is EKG reviewed and independently interpreted by myself showed sinus bradycardia with a rate of 51 bpm with evidence of first-degree AV block. 11/05/24 1840 Cosigner Signature (if applicable): cc: Dr. Eugenio Mayen DO * Signed HPI History of Present Illness Chief Complaint: Fall Narrative Narrative: Patient is a 69-year-old male with a past medical history of epilepsy, hypercholesterolemia, sciatica, cerebral aneurysm status post clamping on Plavix who presents to the emergency department with a chief complaint of falling off a ladder. Patient states that he was changing lights on a gnoem-xp-qvnom and notes that when he was coming down off the ladder someone yelled and he turned around quickly to see who it was or what was going on and he lost his balance causing him to fall backwards. He states that he did pass out he does not remember the entire event and remembers waking up on the ground. Patient states that he does have left shoulder pain and states that he has torn rotator cuff on that side which she is being treated for currently therefore he did have Percocet at home and took this prior to arrival. Patient also attempt take Tylenol prior to arrival and since things are getting better he came here further evaluation management. Patient states he has chronic fractures in his lower back as well. [facility] Medical History Hemorrhoid Epilepsy Sciatica High cholesterol Home Medications ???Medication ???Instructions ???Recorded ???Last Taken ???Type omeprazole 20 mg capsule,delayed 40 mg PO DAILY 03/23/22 Unknown History release gabapentin 300 mg capsule 300 mg PO 4X/DAY 04/02/22 Unknown History hydrocortisone acetate 25 mg 25 mg VT QHS #12 ea 04/27/22 Unknown Rx rectal suppository (Anusol-HC) polyethylene glycol 3350 17 17 g PO DAILY #119 grams 04/27/22 Unknown Rx gram/dose oral powder (Miralax) atorvastatin 40 mg tablet (Lipitor) 40 mg PO QHS 01/13/23 Unknown History polyethylene glycol 3350 17 17 g PO DAILY #119 grams 05/31/23 Unknown Rx gram/dose oral powder (ClearLax) cyclobenzaprine 10 mg tablet 10 mg PO TID PRN Muscle Spasm #20 08/09/23 Unknown Rx TABLETS acetaminophen 500 mg tablet mg 10/09/23 Unknown History clopidogrel 75 mg tablet mg 10/09/23 Unknown History duloxetine 30 mg capsule,delayed mg PO 10/09/23 Unknown History release oxycodone 10 mg tablet mg 10/09/23 Unknown History tamsulosin 0.4 mg capsule mg PO 10/09/23 Unknown History diphenhydramine HCl 25 mg capsule 25 mg PO TID PRN allergic reaction 02/06/24 Unknown Rx (Benadryl) #20 caps levofloxacin 750 mg tablet 750 mg PO DAILY 14 days #14 tabs 07/01/24 Unknown Rx ondansetron 4 mg disintegrating 4 mg PO Q8H PRN PRN Nausea #10 tabs 07/01/24 Unknown Rx tablet oxycodone 5 mg tablet 5 mg PO Q6H PRN pain 3 days #12 07/01/24 Unknown Rx tabs cyclobenzaprine 10 mg tablet 10 mg PO TID PRN Muscle Spasm #20 07/06/24 Unknown Rx TABLETS oxycodone-acetaminophen 5 mg-325 1 tab PO Q8H PRN pain 2 days #10 07/06/24 Unknown Rx mg tablet (Percocet) tabs cyclobenzaprine 5 mg tablet 5 mg PO TID PRN muscle spasm 4 11/05/24 Unknown Rx days #12 tabs lidocaine 5 % topical patch 1 patch topical DAILY #15 ea 11/05/24 Unknown Rx (Lidoderm) ondansetron 4 mg disintegrating 4 mg PO Q6H PRN nausea and 11/05/24 Unknown Rx tablet vomiting #10 tabs Allergy/AdvReac Type Severity Reaction Status Date / Time adhesive tape (tape) AdvReac Rash Verified 11/05/24 14:16 hydrocodone (From [place]) AdvReac Upset Verified 11/05/24 14:16 Stomach ibuprofen AdvReac Upset Verified 11/05/24 14:16 Stomach ketorolac (From Toradol) AdvReac Rash Verified 11/05/24 14:16 naproxen AdvReac Rash Verified 11/05/24 14:16 tramadol AdvReac Upset Verified 11/05/24 14:16 Stomach Surgical History S/P clamping of cerebral aneurysm Social History household members: significant other Smoking Status: Former smoker alcohol intake: former substance use type: does not use ROS ROS ED ROS Narrative Constitutional: Denies any fevers, chills, headaches, dizziness Eyes: Denies change in vision double vision blurry vision Cardiovascular: Denies chest pain or palpitations Respiratory: Denies coughing wheezing shortness of breath Abdomen: De (more content not included)... Normal [facility] Eosinophil percentageOrdered By: Dennis Strickland on 11-05-2024 Eosinophils/100 WBC (Bld) 3.3 % 0-5 [facility] Epithelial cells.squamous LM Ql (Urine sed)Ordered By: Dennis Strickland on 11-05-2024 Epithelial cells.squamous LM.HPF (Urine sed) [#/Area] 0 /[HPF] 0-5 [facility] Erythrocyte distribution wid th ratioOrdered By: Dennis Strickland on 11-05-2024 Erythrocyte distribution width (RBC) [Ratio] 13.8 % 11.6-14.6 [facility] Erythrocyte distribution wid th standard deviationOrdered By: Dennis Strickland on 11-05-2024 Erythrocyte distribution width (RBC) [Entitic vol] 45.1 fL High 35.1-43.9 [facility] Estimated glomerular filtrat ion rate (GFR) AmericanOrdered By: Dennis Strickland on 11-05-2024 Estimated GFR (MDRD) Amer 94 mL/min >60 [facility] Comment on above: GFR Calc Estimation of creatinine homa aranceOrdered By: Dennis Strickland on 11-05-2024 Estimated Creatinine Clearance Calc 70.59 ml/min [facility] Foot min 3 Viewson 5 Foot min 3 Views [facility] Imaging Services [address] [place] [address] Foot min 3 Views MR#: [id number] Acct: [id number] Name: WINSTON MARI Rep #: [id number] : 1955 M 69 From: Richard Cortez DO PCP: Dr. Eugenio Mayen DO Status: REG ER Study: Foot min 3 Views Date of Exam: 11/05/24 Exam# [id number] Ordering Dr: Dennis Strickland DO [id number] INDICATION: fall from ladder, heal pain EXAMINATION/TECHNIQUE: X-RAY - RIGHT XR Foot Min 3 Views 3 VIEWS COMPARISON: FINDINGS: SOFT TISSUES: No soft tissue swelling or gas. No radiopaque foreign body. BONES/JOINTS: No acute fracture or subluxation.. Degenerative changes with spurring and joint space narrowing at the first metatarsophalangeal articulation.. No sclerotic or destructive changes observed. RAD/Foot min 3 Views IMPRESSION: No acute bony injury. Electronically Signed: Richard Cortez DO at 17:07 EST , CC: Dr. Eugenio Mayen DO; Dr. Dennis Strickland DO 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: Signed Normal [facility] Foot min 3 Views [facility] Imaging Services [address] [place] [id number] Foot min 3 Views MR#: [id number] Acct: [id number] Name: WINSTON MARI Rep #: [id number] : 1955 M 69 From: Richard Cortez DO PCP: Dr. Eugenio Mayen DO Status: REG ER Study: Foot min 3 Views Date of Exam: 11/05/24 Exam# [id number] Ordering Dr: Dennis Strickland DO [id number] INDICATION: PAIN, FALL EXAMINATION/TECHNIQUE: X-RAY - LEFT XR Foot Min 3 Views 6 VIEWS COMPARISON: FINDINGS: SOFT TISSUES: No soft tissue swelling or gas. No radiopaque foreign body. BONES/JOINTS: No acute fracture or subluxation.. Normal alignment. Degenerative changes with spurring more prominent at the tarsometatarsal articulations.. No sclerotic or destructive changes observed. RAD/Foot min 3 Views IMPRESSION: Degenerative changes. Electronically Signed: Richard Cortez DO at 17:04 EST , CC: Dr. Eugenio Mayen DO; Dr. Dennis Strickland DO 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: Signed Normal [facility] Glomerular filtration rate ( GFR) estimationOrdered By: Dennis Strickland on 11-05-2024 Estimated GFR (MDRD) Non-Af Amer 78 mL/min >60 [facility] Comment on above: Non- GFR Calc Glucose Ql (U)Ordered By: Jourdan Strickland on 11-05-2024 Urine Glucose (UA) Normal mg/dl Normal [facility] Glucose measurementOrdered B y: Dennis Strickland on 11-05-2024 Glucose [Mass/Vol] 80 mg/dL 74-106 [facility] Hematocrit Auto (Bld) [Volum e fraction]Ordered By: Dennis Strickland on 11-05-2024 Hematocrit (Bld) [Volume fraction] 39.3 % Low 40-54 [facility] Hemoglobin measurementOrdere d By: Dennis Strickland on 11-05-2024 Hemoglobin (Bld) [Mass/Vol] 13.1 g/dL 13.0-16.5 [facility] Humerus min 2 Viewson 2024 Humerus min 2 Views [facility] Imaging Services [address] [place] [address] Humerus min 2 Views MR#: [id number] Acct: [id number] Name: WINSTON MARI Rep #: [id number] : 1955 69 From: Richard Cortez DO PCP: Dr. Eugenio Mayen DO Status: REG ER Study: Humerus min 2 Views Date of Exam: 11/05/24 Exam# [id number] Ordering Dr: Dennis Strickland DO [id number] INDICATION: fall, pain EXAMINATION/TECHNIQUE: X-RAY - LEFT XR Humerus Min 2 Views 2 VIEWS COMPARISON: FINDINGS: SOFT TISSUES: No soft tissue swelling or gas. No radiopaque foreign body. BONES/JOINTS: No acute fracture or subluxation. Elevated humerus may be related to underlying rotator cuff injury.. Old mid left humeral fracture. Degenerative hypertrophy at the acromioclavicular articulation.. No sclerotic or destructive changes observed. RAD/Humerus min 2 Views IMPRESSION: Elevated humerus may be related to underlying rotator cuff injury.. Correlate with MRI if needed. Old mid left humeral fracture. Electronically Signed: Richard Cortez DO at 17:12 EST Reading Location ID and State: [facility] / [place] Tel [phone], Service support , CC: Dr. Eugenio Mayen, ; Dr. Dennis Strickland DO 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: Signed Normal [facility] Immature granulocytes/100 WB C Auto (Bld)Ordered By: Dennis Strickland on 11-05-2024 Immature granulocytes/100 WBC (Bld) 0.200 % 0.0-0.9 [facility] Comment on above: IG% - Immature Granu locytes (promyelocytes, myelocytes and metamyelocytes) > 1% indicates that a LEFT SHIFT is Present. International normalized rat io (INR) calculationOrdered By: Dennis Strickland on 11-05-2024 INR Coag (Bld) [Relative time] 0.9 {INR} [facility] Ketones Test strip Ql (U)Ord ered By: Dennis Strickland on 11-05-2024 Ketones Ql (U) Negative Negative [facility] Laboratory - Chemistry and C hemistry - challengeOrdered By: Dennis Strickland on 11-05-2024 AST [Catalytic activity/Vol] 11 U/L Low 15-37 [facility] Liver Profileon 11-05-2024 Albumin [Mass/Vol] 3.4 g/dL Normal 3.2-5.0 [facility] Comment on above: Performed By: #### L 500.2500, L500.3400 ####[facility] [address] [place], [address] ALK P 81 U/L Normal 45-117 [facility] Comment on above: Performed By: #### L 500.2500, L500.3400 ####[facility] [address] [place], [address] ALT [Catalytic activity/Vol] 11 U/L Low 16-61 [facility] Comment on above: Performed By: #### L 500.2500, L500.3400 ####[facility] [address] [place], [address] AST [Catalytic activity/Vol] 11 U/L Low 15-37 [facility] Comment on above: Performed By: #### L 500.2500, L500.3400 ####[facility] [address] [place], [address] Bilirubin [Mass/Vol] 1.00 mg/dL Normal 0.20-1.00 [facility] Comment on above: Result Comment: For patients on eltrombopag therapy, use of Dimension [place] TBIL is not recommended. Performed By: #### L 500.2500, L500.3400 ####[facility] [address] [place], [address] Bilirubin.direct [Mass/Vol] 0.21 mg/dL Normal 0.00-0.30 [facility] Comment on above: Performed By: #### L 500.2500, L500.3400 ####[facility] [address] [place], [address] Globulin (S) [Mass/Vol] 3.3 g/dL Normal 2.2-4.2 [facility] Comment on above: Performed By: #### L 500.2500, L500.3400 ####[facility] [address] [place], [address] T PROT 6.7 g/dL Normal 6.4-8.2 [facility] Comment on above: Performed By: #### L 500.2500, L500.3400 ####[facility] [address] [place], [address] ALB Normal 3.2-5.0 [facility] Comment on above: Result Comment: This specimen has been REJECTED due to Laboratory criteria: Hemolyzed. STANLEY has been notified of need of recollection. 11/05/24 1548 Heather Lollo Performed By: #### L 100.0100, L500.3400, L500.2500 ####[facility] [address] [place], [address] ALK P Normal 45-117 [facility] Comment on above: Result Comment: This specimen has been REJECTED due to Laboratory criteria: Hemolyzed. STANLEY has been notified of need of recollection. 11/05/24 1548 Heather Lollo Performed By: #### L 100.0100, L500.3400, L500.2500 ####[facility] [address] [place], [address] ALT Normal 16-61 [facility] [facility] Comment on above: Result Comment: This specimen has been REJECTED due to Laboratory criteria: Hemolyzed. STANLEY has been notified of need of recollection. 11/05/24 1548 Heather Lollo Performed By: #### L 100.0100, L500.3400, L500.2500 ####[facility] [address] [place], [address] AST Normal 15-37 [facility] Comment on above: Result Comment: This specimen has been REJECTED due to Laboratory criteria: Hemolyzed. STANLEY has been notified of need of recollection. 11/05/24 1548 Heather Lollo Performed By: #### L 100.0100, L500.3400, L500.2500 ####[facility] [address] [place], [address] D BILI Normal 0.00-0.30 [facility] Comment on above: Result Comment: This specimen has been REJECTED due to Laboratory criteria: Hemolyzed. STANLEY has been notified of need of recollection. 11/05/24 1548 Heather Lollo Performed By: #### L 100.0100, L500.3400, L500.2500 ####[facility] [address] [place], [address] T BILI Normal 0.20-1.00 [facility] Comment on above: Result Comment: This specimen has been REJECTED due to Laboratory criteria: Hemolyzed. STANLEY has been notified of need of recollection. 11/05/24 1548 Heather Lollo Performed By: #### L 100.0100, L500.3400, L500.2500 ####[facility] [address] [place], [address] T PROT Normal 6.4-8.2 [facility] Comment on above: Result Comment: This specimen has been REJECTED due to Laboratory criteria: Hemolyzed. STANLEY has been notified of need of recollection. 11/05/24 1548 Heather Lollo Performed By: #### L 100.0100, L500.3400, L500.2500 ####[facility] [address] [place], [address] Lymphocytes Auto (Unsp spec) [#/Vol]Ordered By: Dennis Strickland on 11-05-2024 Lymphocytes (Bld) [#/Vol] 1.68 10*3/uL 0.83-4.51 [facility] Lymphocytes/100 WBC Auto (Un sp spec)Ordered By: Dennis Strickland on 11-05-2024 Lymphocytes/100 WBC (Bld) 19.6 % 19-41 [facility] MCV (mean corpuscular volume ) determinationOrdered By: Dennis Strickland on 11-05-2024 MCV (RBC) [Entitic vol] 90.3 fL 80-94 [facility] Mean corpuscular hemoglobin (MCH) determinationOrdered By: Dennis Strickland on 11-05-2024 MCH (RBC) [Entitic mass] 30.1 pg 27.0-32.0 [facility] Mean corpuscular hemoglobin concentration (MCHC) determinationOrdered By: Dennis Strickland on 11-05-2024 MCHC (RBC) [Mass/Vol] 33.3 g/dL 32-36 [facility] Mean platelet volume determi nationOrdered By: Dennis Strickland on 11-05-2024 Platelet mean volume (Bld) [Entitic vol] 8.7 fL 6.2-12.0 [facility] Microscopic analysis of urin e for red blood cells (RBC)Ordered By: Dennis Strickland on 11-05-2024 Urine RBC 0-5 SEEN /hpf 0-5 [facility] Monocyte percentageOrdered B y: Dennis Strickland on 11-05-2024 Monocytes/100 WBC (Bld) 8.7 % 0-10 [facility] Mucus LM Ql (Urine sed)Order ed By: Dennis Strickland on 11-05-2024 Mucus Ql (Urine sed) 0 SEEN /hpf [facility] Neutrophil percentageOrdered By: Dennis Strickland on 11-05-2024 Neutrophils/100 WBC (Bld) 67.5 % 47-70 [facility] Nitrite Test strip Ql (U)Ord ered By: Dennis Strickland on 11-05-2024 Nitrite Ql (U) Negative Negative [facility] Nucleated red blood cell per centageOrdered By: Dennis Strickland on 11-05-2024 Nucleated RBC/100 WBC (Bld) [Ratio] 0 % 0-5 [facility] Partial Thromboplast Timeon 11-05-2024 aPTT Coag (Bld) [Time] 27.5 s Normal 24.1-36.2 [facility] Comment on above: Performed By: #### L 300.4310, L300.3900 ####[facility] [address] [place], [place], [id number] Platelet countOrdered By: Jourdan Strickland on 11-05-2024 Platelets (Bld) [#/Vol] 386 10*3/uL 150-450 [facility] Potassium measurementOrdered By: Dennis Strickland on 11-05-2024 Potassium [Moles/Vol] 3.6 mmol/L 3.5-5.1 [facility] Protein Test strip Ql (U)Ord ered By: Dennis Strickland on 11-05-2024 Protein Ql (U) 15 mg/dl High Negative [facility] Prothrombin Time w/INRon INR Coag (PPP) [Relative time] 0.9 {INR} Normal [facility] Comment on above: Performed By: #### L 300.4310, L300.3900 ####[facility] [address] [place], [address] PT Coag (PPP) [Time] 12.8 s Normal 11.7-14.9 [facility] Comment on above: Performed By: #### L 300.4310, L300.3900 ####[facility] [address] [place], [address] Prothrombin timeOrdered By: Dennis Strickland on 11-05-2024 PT Coag (PPP) [Time] 12.8 s 11.7-14.9 [facility] RBC Auto (Bld) [#/Vol]Ordere d By: Dennis Strickland on 11-05-2024 RBC (Bld) [#/Vol] 4.35 10*6/uL Low 4.6-6.2 [facility] Serum anion gap measurementO rdered By: Dennis Strickland on 11-05-2024 Anion gap [Moles/Vol] 6 mmol/L 5-15 [facility] Serum globulin measurementOr dered By: Dennis Strickland on 11-05-2024 Globulin (S) [Mass/Vol] 3.3 g/dL 2.2-4.2 [facility] Serum or plasma alanine jules otransferase (ALT) measurementOrdered By: Dennis Strcikland on 11-05-2024 ALT [Catalytic activity/Vol] 11 U/L Low 16-61 [facility] Serum or plasma albumin doug urement (mass/volume)Ordered By: Dennis Strickland on 11-05-2024 Albumin [Mass/Vol] 3.4 g/dL 3.2-5.0 [facility] Serum or plasma alkaline reji sphatase measurementOrdered By: Dennis Strickland on 11-05-2024 ALP [Catalytic activity/Vol] 81 U/L 45-117 [facility] Serum or plasma calcium doug urement (mass/volume)Ordered By: Dennis Strickland on 01-15-2025 Calcium [Mass/Vol] 8.4 mg/dL Low 8.5-10.1 [facility] Serum or plasma creatinine m easurement (mass/volume)Ordered By: Dennis Strickland on 11-05-2024 Creatinine [Mass/Vol] 1.01 mg/dL 0.70-1.30 [facility] Comment on above: The validity of the calculated GFR & GFRAA in patients over 70 years has not been determined. Clinical correlation is essential. Serum or plasma urea nitroge n measurement (mass/volume)Ordered By: Dennis Strickland on 11-05-2024 Urea nitrogen [Mass/Vol] 12 mg/dL 7-18 [facility] Shoulder min 2 Viewson 11-05 Shoulder min 2 Views [facility] Imaging Services [address] [place] [address] [id number] Shoulder min 2 Views MR#: [id number] Acct: [id number] Name: WINSTON MARI Rep #: [id number] : 1955 M 69 From: Richard Cortez DO PCP: Dr. Eugenio Mayen DO Status: REG ER Study: Shoulder min 2 Views Date of Exam: 11/05/24 Exam# [id number] Ordering Dr: Dennis Strickland DO [id number] INDICATION: fall pain EXAMINATION/TECHNIQUE: X-RAY - LEFT XR Shoulder Min 2 Views 2 VIEWS COMPARISON: FINDINGS: SOFT TISSUES: No soft tissue swelling or gas. No radiopaque foreign body. BONES/JOINTS: No acute fracture or subluxation.. Elevated humerus may be related to underlying rotator cuff injury. Old mid humeral shaft fracture. Degenerative hypertrophy at the acromioclavicular articulation. No sclerotic or destructive changes observed. RAD/Shoulder min 2 Views IMPRESSION: Elevated humerus may be related to underlying rotator cuff injury. Correlate with MRI if needed. Old mid humeral shaft fracture. Degenerative hypertrophy at the acromioclavicular articulation. Electronically Signed: Richard Cortez DO at 17:00 EST Reading Location ID and State: [facility] / MD Tel [phone], Service support , CC: Dr. Eugenio Mayen DO; Dr. Dennis Strickland DO 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: Signed Normal [facility] Sodium levelOrdered By: Salazar Strickland on 11-05-2024 Sodium [Moles/Vol] 140 mmol/L 136-145 [facility] Spine Cervical without Contr ason 11-05-2024 Spine Cervical without Contras [facility] Imaging Services [address] [place], [place] [address] Spine Cervical without Contras MR#: [id number] Acct: [id number] Name: WINSTON MARI Rep #: [id number] : 1955 M 69 From: Richard Cortez DO PCP: Dr. Eugenio Mayen DO Status: REG ER Study: Spine Cervical without Contras Date of Exam: 0 11/05/24 Exam# [id number] Ordering Dr: Dennis Strickland DO [id number] STUDY: CT CERVICAL SPINE WITHOUT CONTRAST REASON FOR EXAM: Male, 69 years old. Trauma RADIATION DOSAGE (If Supplied By Facility): CTDIvol = ( 18.11 ) mGy, DLP = ( 383.32 ) mGycm TECHNIQUE: High resolution transaxial imaging was performed without contrast material. Sagittal and coronal images were reconstructed. Individualized dose optimization techniques were used for this CT. COMPARISON: None FINDINGS: Normal craniovertebral junction. Normal anterior atlantoaxial articulation. Normal odontoid process. Normal cervical lordosis. Normal vertebral bodies and posterior osseous elements. C2-3: Normal endplates. Normal disc height and morphology. Normal central canal and intervertebral neuroforamina. C3-4: Normal endplates. Normal disc height and morphology. Normal central canal and intervertebral neuroforamina. C4-5: Degenerative spurs at the endplates. Narrowed disc height. Normal central canal. Uncovertebral spurs narrowing the intervertebral neuroforamina. C5-6: Degenerative spurs at the endplates. Narrowed disc height. Normal central canal. Uncovertebral spurs narrowing the intervertebral neuroforamina, left more than right. C6-7: Normal endplates. Normal disc height and morphology. Normal central canal. Uncovertebral spurs slightly narrowing the intervertebral neuroforamina. C7-T1: Normal endplates. Normal disc height and morphology. Normal central canal. Facet hypertrophy slightly narrowing the intervertebral neuroforamina. Normal visualized soft tissue structures. CT/Spine Cervical without Contras IMPRESSION: Degenerative changes of the cervical spine. Electronically Signed: Richard Cortez DO at 16:57 EST Reading Location ID and State: [address] [place] [address] Tel [phone], Service support , CC: Dr. Eugenio Mayen, ; Dr. Dennis Strickland DO 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: Signed Normal [facility] Total proteinOrdered By: Roni Strickland on 11-05-2024 Protein [Mass/Vol] 6.7 g/dL 6.4-8.2 [facility] Transitional cells LM Ql (Ur ine sed)Ordered By: Dennis Strickland on 11-05-2024 Urine Transitional Epithelial Cells 0-5 SEEN /hpf 0-5 [facility] Urinalysis, Completeon 11-05 BACTERIA RARE Normal None Seen [facility] Comment on above: Order Comment: Y Performed By: #### L 500.4050, L503.6005, L501.2450, L100.0100 #### [facility] [address] [place], [address] WBC 0-5 SEEN Normal 0-5 [facility] Comment on above: Order Comment: Y Performed By: #### L 500.4050, L503.6005, L501.2450, L100.0100 #### [facility] [address] [place], [address] RBC 0-5 SEEN Normal 0-5 [facility] Comment on above: Order Comment: Y Performed By: #### L 500.4050, L503.6005, L501.2450, L100.0100 #### [facility] [address] [place], [address] EPI,TRANSITION 0-5 SEEN Normal 0-5 [facility] Comment on above: Order Comment: Y Performed By: #### L 500.4050, L503.6005, L501.2450, L100.0100 #### [facility] [address] [place], [address] EPI,SQUAMOUS 0-5 SEEN Normal 0-5 [facility] Comment on above: Order Comment: Y Performed By: #### L 500.4050, L503.6005, L501.2450, L100.0100 #### [facility] [address] [place], [address] Mucus Ql (Urine sed) 0 SEEN Normal [facility] Comment on above: Order Comment: Y Performed By: #### L 500.4050, L503.6005, L501.2450, L100.0100 #### [facility] [address] [place], [address] Urine blood detectionOrdered By: Dennis Strickland on 11-05-2024 Urine Occult Blood 10 /ul High Negative [facility] Urine clarityOrdered By: Roni Strickland on 11-05-2024 Clarity (U) Clear Clear [facility] Urine color determinationOrd ered By: Dennis Strickland on 11-05-2024 Color (U) Yellow Yellow [facility] Urine leukocyte esterase det ection by dipstickOrdered By: Dennis Strickland on 11-05-2024 Leukocyte esterase Test strip Ql (U) Negative Negative [facility] Urine pHOrdered By: Dennis vazquez on 11-05-2024 pH (U) 7.0 [pH] 5.0 - 8.0 [facility] Urine specific gravity measu rementOrdered By: Dennis Strickland on 11-05-2024 Specific gravity (U) [Rel density] 1.010 1.002-1.03 0 [facility] Urobilinogen Ql (U)Ordered B y: Dennis Strickland on 11-05-2024 Urine Urobilinogen Normal mg/dl Normal [facility] White blood cell (WBC) count Ordered By: Dennis Strickland on 11-05-2024 WBC (Bld) [#/Vol] 8.6 10*3/uL 4.4-11.0 [facility] White blood cell countOrdere d By: Dennis Correaer on 11-05-2024 Urine WBC 0-5 SEEN /hpf 0-5 [facility] aPTT Coag (PPP) [Time]Ordere d By: Dennis Correaer on 11-05-2024 aPTT Coag (Bld) [Time] 27.5 s 24.1-36.2 [facility] XR SHOULDER MINIMUM 2 VIEWS LEFTon 09-13-2024 XR SHOULDER MINIMUM 2 VIEWS LEFT ORIGINAL EXAMINATION: XR left shoulder four views 09/11/2024 11:22 am COMPARISON: 06/21/2021 HISTORY: ORDERING SYSTEM PROVIDED HISTORY: Reason for Exam: left shoulder pain; suspect long head biceps and external rotator cuff tendonitis, FINDINGS: No acute fracture, dislocation, lytic process or periosteal reaction is seen in the visualized bones and joints. No erosive type of arthritis. No periarticular soft tissue calcification. Glenohumeral joint is normal. There is mild to moderate AC joint arthrosis. Normal subacromial space. There is partially included area of cortical thickening in the mid shaft of the humerus which is probably a remote healed fracture. This is present on remote radiographs also therefore nonacute. IMPRESSION: No acute skeletal abnormality is seen. . AC joint arthrosis. Interpreted by: Jono Nicholas MD Preliminary Report By: Jono Nicholas MD Electronically signed By Jono Nicholas MD Dictated Date: 09/13/2024 4:01:47 PM Prelim Date: 09/13/2024 4:03:15 PM Sign Date: 09/13/2024 4:03:15 PM Ordering Provider: EUGENIO MAYEN [facility] Abdomen/Pelvis without Conto n 07-06-2024 Abdomen/Pelvis without Cont [facility] Imaging Services [address] [place], [place] [address] Abdomen/Pelvis without Cont MR#: [id number] Acct: [id number] Name: WINSTON MARI Rep #: [id number] : 1955 M 69 From: Richard Cortez DO PCP: Dr. Eugenio Mayen DO Status: REG ER Study: Abdomen/Pelvis without Cont Date of Exam: 06/22 03/14 Exam# [id number] Ordering Dr: Abril Velarde DO [id number] STUDY: CT ABDOMEN AND PELVIS WITHOUT CONTRAST REASON FOR EXAM: Male, 69 years old. left flank pain, hx of kidney stones RADIATION DOSAGE (If Supplied By Facility): CTDIvol = ( 6.46 ) mGy, DLP = ( 398.23 ) mGycm TECHNIQUE: Transaxial images were obtained from the dome of the diaphragm to the symphysis pubis without oral contrast, and without intravenous contrast. Sagittal and coronal images were reconstructed. Individualized dose optimization techniques were used for this CT. COMPARISON: None. FINDINGS: The visualized lung bases are unremarkable. The visualized portions of the heart are within normal limits. Normal liver. Normal gallbladder and extrahepatic biliary system. Granulomatous calcifications in the spleen. Normal pancreas. Normal bilateral adrenal glands. Bilateral renal cysts. Nonobstructive punctate right renal stone. Normal visualized stomach. Slightly fluid distended proximal small intestine. Normal colon. The appendix is visualized and appears normal. Calcified abdominal aorta with mild distal dilatation up to 2.2 cm in diameter. Normal inferior vena cava. Normal retroperitoneum. Normal urinary bladder. Left hydrocele. Normal abdominal wall. Normal osseous structures. CT/Abdomen/Pelvis without Cont IMPRESSION: Bilateral renal cysts. Punctate right renal stone. Left hydrocele. Possible mild small bowel ileus. Electronically Signed: Richard Cortez DO at 19:44 EDT , CC: Dr. Eugenio Mayen, DO; Dr. Abril Velarde, DO 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: Signed Normal [facility] Basic Metabolic Profile (BMP )on 07-06-2024 BUN/CRE 15.3 RATIO Normal 10-20 [facility] Comment on above: Performed By: #### L 500.2500, L100.0100 ####[facility] [address] [place], [address] CA,Total 9.5 mg/dL Normal 8.5-10.1 [facility] Comment on above: Performed By: #### L 500.2500, L100.0100 ####[facility] [address] [place], [address] Chloride [Moles/Vol] 103 mmol/L Normal 98-107 [facility] Comment on above: Performed By: #### L 500.2500, L100.0100 ####[facility] [address] [place], [address] CO2 [Moles/Vol] 27.0 mmol/L Normal 21.0-32.0 [facility] Comment on above: Performed By: #### L 500.2500, L100.0100 ####[facility] [address] [place], [address] Creatinine [Mass/Vol] 1.11 mg/dL Normal 0.70-1.30 [facility] Comment on above: Result Comment: The validity of the calculated GFR GFRAA in patients over 70 years has not been determined. Clinical correlation is essential. Performed By: #### L 500.2500, L100.0100 ####[facility] [address] [place], [address] ECRCL 61.75 ml/min Normal [facility] Comment on above: Performed By: #### L 500.2500, L100.0100 ####[facility] [address] [place], [address] EST GFR - AA 85 mL/min Normal >60 [facility] Comment on above: Result Comment: Afri can Iranian GFR Calc Performed By: #### L 500.2500, L100.0100 ####[facility] [address] [place], [address] GAP 6 Normal 5-15 [facility] Comment on above: Performed By: #### L 500.2500, L100.0100 ####[facility] [address] [place], [address] GFR/1.73 sq M.predicted among non-blacks MDRD (S/P/Bld) [Vol rate/Area] 70 mL/min/{1.73_m2} Normal >60 [facility] Comment on above: Result Comment: Non- GFR Calc Performed By: #### L 500.2500, L100.0100 ####[facility] [address] [place], [address] Glucose [Mass/Vol] 96 mg/dL Normal 74-106 [facility] Comment on above: Performed By: #### L 500.2500, L100.0100 ####[facility] [address] [place], [address] Potassium [Moles/Vol] 3.7 mmol/L Normal 3.5-5.1 [facility] Comment on above: Performed By: #### L 500.2500, L100.0100 ####[facility] [address] [place], [address] Sodium [Moles/Vol] 136 mmol/L Normal 136-145 [facility] Comment on above: Performed By: #### L 500.2500, L100.0100 ####[facility] [address] [place], [address] Urea nitrogen [Mass/Vol] 17 mg/dL Normal 7-18 [facility] Comment on above: Performed By: #### L 500.2500, L100.0100 ####[facility] [address] [place], [address] CBC W/Diff, Automatedon 06-22 Absolute Lymph 2.02 X10 3/uL Normal 0.83-4.51 [facility] Comment on above: Performed By: #### L 500.2500, L100.0100 ####[facility] [address] [place], [address] Absolute Neut 5.4 X10 3/uL Normal 2.0-7.7 [facility] Comment on above: Performed By: #### L 500.2500, L100.0100 ####[facility] [address] [place], [address] Basophils/100 WBC (Bld) 0.6 % Normal 0-1 [facility] Comment on above: Performed By: #### L 500.2500, L100.0100 ####[facility] [address] [place], [address] Eosinophils/100 WBC (Bld) 4.4 % Normal 0-5 [facility] Comment on above: Performed By: #### L 500.2500, L100.0100 ####[facility] [address] [place], [address] Erythrocyte distribution width (RBC) [Ratio] 13.3 % Normal 11.6-14.6 [facility] Comment on above: Performed By: #### L 500.2500, L100.0100 ####[facility] [address] [place], [address] Hematocrit (Bld) [Volume fraction] 40.1 % Normal 40-54 [facility] Comment on above: Performed By: #### L 500.2500, L100.0100 ####[facility] [address] [place], [address] Hemoglobin (Bld) [Mass/Vol] 13.1 g/dL Normal 13.0-16.5 [facility] Comment on above: Performed By: #### L 500.2500, L100.0100 ####[facility] [address] [place], [address] IG% 0.200 Normal 0.0-0.9 [facility] Comment on above: Result Comment: IG% - Immature Granulocytes (promyelocytes, myelocytes and metamyelocytes) > 1% indicates that a LEFT SHIFT is Present. Performed By: #### L 500.2500, L100.0100 ####[facility] [address] [place], [address] Lymphocytes/100 WBC (Bld) 22.9 % Normal 19-41 [facility] Comment on above: Performed By: #### L 500.2500, L100.0100 ####[facility] [address] [place], [address] MCH (RBC) [Entitic mass] 29.8 pg Normal 27.0-32.0 [facility] Comment on above: Performed By: #### L 500.2500, L100.0100 ####[facility] [address] [place], [address] MCHC (RBC) [Mass/Vol] 32.7 g/dL Normal 32-36 [facility] Comment on above: Performed By: #### L 500.2500, L100.0100 ####[facility] [address] [place], [address] MCV (RBC) [Entitic vol] 91.1 fL Normal 80-94 [facility] Comment on above: Performed By: #### L 500.2500, L100.0100 ####[facility] [address] [place], [address] Monocytes/100 WBC (Bld) 10.5 % High 0-10 [facility] Comment on above: Performed By: #### L 500.2500, L100.0100 ####[facility] [address] [place], [address] Neutrophils/100 WBC (Bld) 61.4 % Normal 47-70 [facility] Comment on above: Performed By: #### L 500.2500, L100.0100 ####[facility] [address] [place], [address] Nucleated RBC (Bld) [#/Vol] 0 10*3/uL Normal 0-5 [facility] Comment on above: Performed By: #### L 500.2500, L100.0100 ####[facility] [address] [place], [address] Platelet mean volume (Bld) [Entitic vol] 8.9 fL Normal 6.2-12.0 [facility] Comment on above: Performed By: #### L 500.2500, L100.0100 ####[facility] [facility] [id number] [place], [address] Platelets (Bld) [#/Vol] 337 10*3/uL Normal 150-450 [facility] Comment on above: Performed By: #### L 500.2500, L100.0100 ####[facility] [address] [place], [address] RBC (Bld) [#/Vol] 4.40 10*6/uL Low 4.6-6.2 [facility] Comment on above: Performed By: #### L 500.2500, L100.0100 ####[facility] [address] [place], [address] RDW SD 44.9 fl High 35.1-43.9 [facility] Comment on above: Performed By: #### L 500.2500, L100.0100 ####[facility] [address] [place], [address] WBC (Bld) [#/Vol] 8.8 10*3/uL Normal 4.4-11.0 [facility] Comment on above: Performed By: #### L 500.2500, L100.0100 ####[facility] [address] [place], [address] Emergency Department Summary on 07-06-2024 Emergency Department Summary [facility] Medical Records Department [address] [facility] [place] [address] Emergency Department Summary 07/06/24 MR#: [id number] Acct: [id number] Name: WINSTON MARI Rep #: [id number] : 1955 69 From: Abril Velarde DO PCP: Dr. Eugenio Mayen, DO Status:REG ER Location: ED HPI History of Present Illness Chief Complaint: Flank Pain Detail of Chief Complaint: Left flank pain Informant: patient Narrative Narrative: Patient presents with left flank pain that started this morning. Has history of kidney stone that was diagnosed on the opposite side on the right about a week and a half ago. Patient states that he started with pain on his left side today that radiates towards his left testicle. She had some nausea but no vomiting. Mild dysuria. Denies fever. Denies injury to his back. [facility] Medical History Epilepsy Hemorrhoid High cholesterol Sciatica Home Medications ???Medication ???Instructions ???Recorded ???Last Taken ???Type omeprazole 20 mg capsule,delayed 40 mg PO DAILY 03/23/22 Unknown History release gabapentin 300 mg capsule 300 mg PO 4X/DAY 04/02/22 Unknown History hydrocortisone acetate 25 mg 25 mg VT QHS #12 ea 04/27/22 Unknown Rx rectal suppository (Anusol-HC) polyethylene glycol 3350 17 17 g PO DAILY #119 grams 04/27/22 Unknown Rx gram/dose oral powder (Miralax) atorvastatin 40 mg tablet (Lipitor) 40 mg PO QHS 01/13/23 Unknown History polyethylene glycol 3350 17 17 g PO DAILY #119 grams 05/31/23 Unknown Rx gram/dose oral powder (ClearLax) cyclobenzaprine 10 mg tablet 10 mg PO TID PRN Muscle Spasm #20 08/09/23 Unknown Rx TABLETS acetaminophen 500 mg tablet mg 10/09/23 Unknown History clopidogrel 75 mg tablet mg 10/09/23 Unknown History duloxetine 30 mg capsule,delayed mg PO 10/09/23 Unknown History release oxycodone 10 mg tablet mg 10/09/23 Unknown History tamsulosin 0.4 mg capsule mg PO 10/09/23 Unknown History diphenhydramine HCl 25 mg capsule 25 mg PO TID PRN allergic reaction 02/06/24 Unknown Rx (Benadryl) #20 caps levofloxacin 750 mg tablet 750 mg PO DAILY 14 days #14 tabs 07/01/24 Unknown Rx ondansetron 4 mg disintegrating 4 mg PO Q8H PRN PRN Nausea #10 tabs 07/01/24 Unknown Rx tablet oxycodone 5 mg tablet 5 mg PO Q6H PRN pain 3 days #12 07/01/24 Unknown Rx tabs Allergy/AdvReac Type Severity Reaction Status Date / Time adhesive tape (tape) AdvReac Rash Verified 07/06/24 17:55 hydrocodone (From [place]) AdvReac Upset Verified 07/06/24 17:55 Stomach ibuprofen AdvReac Upset Verified 07/06/24 17:55 Stomach ketorolac (From Toradol) AdvReac Rash Verified 07/06/24 17:55 naproxen AdvReac Rash Verified 07/06/24 17:55 tramadol AdvReac Upset Verified 07/06/24 17:55 Stomach Surgical History S/P clamping of cerebral aneurysm Social History household members: significant other Smoking Status: Former smoker alcohol intake: former substance use type: does not use ROS ROS ED Review of Systems ROS Unobtainable: other Constitutional Constitutional ED: Reports lethargy; Denies chills, fever(s), sweats or weight loss Eyes Eyes: Denies blurry vision, change in vision or diplopia ENT ENT ED: Denies rhinorrhea or sore throat Cardiovascular Cardiovascular: Denies chest pain, orthopnea or racing heartbeat Respiratory/Chest Respiratory/Chest: Denies cough, dyspnea, dyspnea on exertion, orthopnea or sputum Gastrointestinal Gastrointestinal: Denies abdominal pain, diarrhea, nausea or vomiting Genitourinary Genitourinary ED: Denies dysuria, hematuria or urinary frequency Musculoskeletal Musculoskeletal: Reports other Details: Left flank pain ; Denies arthralgias, back pain, myalgias or neck pain Integumentary Denies abscess, Abrasions or rash Neurologic Neurologic: Denies headache(s) or weakness Psychiatric Psychiatric: Denies anxiety, depression or suicidal thoughts Endocrine Endocrinology: Denies polydipsia, polyphagia or polyuria Hematologic/Lymphatic Hematologic/Lymphatic: Denies easy bleeding, easy bruising or lymphadenopathy Allergic/Immunologic Allergic/Immunologic ED: Denies mouth swelling, tongue swelling or urticaria EXAM Physical Exam Const Vital Signs: 07/06/24 17:55 07/06/24 19:54 07/06/24 21:03 Temperature 98.1 F 97.5 F L Temperature Source Temporal Pulse Rate 80 52 L 72 Respiratory Rate 18 16 15 Blood Pressure 110/75 151/82 H 129/64 H Blood Pressure Mean 86 105 85 Pulse Ox 98 99 94 Oxygen Delivery Method Room Air Room Air Positive well nourished and well developed General Appearance ED: well developed and NAD HEENT Reports TM's c (more content not included)... Normal [facility] Urinalysis, Completeon 07-06 EPI,SQUAMOUS 0-5 SEEN Normal 0-5 [facility] Comment on above: Order Comment: Y Performed By: #### L 500.4050, L503.6005, L501.2450, L100.0100 #### [facility] [address] [place], [place], [address] BACTERIA 0 SEEN Normal None Seen [facility] Comment on above: Order Comment: Y Performed By: #### L 500.4050, L503.6005, L501.2450, L100.0100 #### [facility] [address] [place], [address] Mucus Ql (Urine sed) 0 SEEN Normal [facility] Comment on above: Order Comment: Y Performed By: #### L 500.4050, L503.6005, L501.2450, L100.0100 #### [facility] [address] [place], [address] RBC 0 SEEN Normal 0-5 [facility] Comment on above: Order Comment: Y Performed By: #### L 500.4050, L503.6005, L501.2450, L100.0100 #### [facility] [address] [place], [address] WBC 0 SEEN Normal 0-5 [facility] Comment on above: Order Comment: Y Performed By: #### L 500.4050, L503.6005, L501.2450, L100.0100 #### [facility] [address] [place], [address] Urine Cultureon 07-02-2024 URC Culture exhibits no growth. Normal [facility] Comment on above: Performed By: #### M 100.2200 ####[facility] [address] [place], [address] Abdomen/Pelvis W IV Cont ONL Yon 07-01-2024 Abdomen/Pelvis W IV Cont ONLY [facility] Imaging Services [address] [place] [address] Abdomen/Pelvis W IV Cont ONLY MR#: [id number] Acct: [id number] Name: WINSTON MARI Rep #: [id number] : 1955 M 69 From: Will Cuellar MD PCP: Dr. Eugenio Mayen, DO Status: REG ER Study: Abdomen/Pelvis W IV Cont ONLY Date of Exam: Exam# [id number] Ordering Dr: Barrett Leonard DO [id number] STUDY: CT ABDOMEN AND PELVIS WITH CONTRAST REASON FOR EXAM: Male, 69 years old. Abdominal pain, right flank pain RADIATION DOSAGE (If Supplied By Facility): CTDIvol = ( 12.39 ) mGy, DLP = ( 788.10 ) mGycm TECHNIQUE: Transaxial images were obtained from the dome of the diaphragm to the symphysis pubis without oral contrast. IV 100mL [id number]-[id number] was administered. Sagittal and coronal images were reconstructed. Individualized dose optimization techniques were used for this CT. COMPARISON: February 11, 2023 FINDINGS: Minor atelectasis within the dependent portion of the lower lobes. Small calcified granuloma in left lower lobe The visualized portions of the heart are within normal limits. Normal liver. Normal gallbladder and extrahepatic biliary system. Tiny calcified granulomata within normal size spleen. Normal pancreas. Normal bilateral adrenal glands. There is no evidence for renal obstruction. There is a parapelvic cyst in left kidney. There are 2 complex cysts in the right kidney unchanged in size since prior exam Normal visualized stomach. Normal small intestine. Diffuse fecal retention seen throughout the colon. The appendix is visualized and appears normal. Mild atherosclerotic changes of the aorta without evidence for aneurysm. Normal inferior vena cava. Normal retroperitoneum. There is concentric thickening of the babb of bladder in association with nonspecific enlargement of the prostate with stranding in the fat Cannot definitively exclude the possibility of prostatitis Normal abdominal wall. Lumbar spine demonstrates degenerative changes CT/Abdomen/Pelvis W IV Cont ONLY IMPRESSION: No evidence for renal obstruction or ureteral calculus. Nonspecific prominence of the prostate with stranding in the fat. Cannot exclude possibility of prostatitis Small complex right renal cysts unchanged in size since prior exam Diverticular disease of the descending and sigmoid colon without evidence for acute diverticulitis No evidence for small bowel obstruction or other acute abnormality Electronically Signed: Will Cuellar MD at 22:52 EDT , CC: Dr. Eugenio Mayen, DO; Dr. Barrett Leonard DO 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: Signed Normal [facility] CBC W/Diff, Automatedon 06-22 0-2023 Absolute Lymph 1.94 X10 3/uL Normal 0.83-4.51 [facility] Comment on above: Performed By: #### L 500.4050, L503.6005, L501.2450, L100.0100 #### [facility] [address] [place], [address] Absolute Neut 4.0 X10 3/uL Normal 2.0-7.7 [facility] Comment on above: Performed By: #### L 500.4050, L503.6005, L501.2450, L100.0100 #### [facility] [address] [place], [address] Basophils/100 WBC (Bld) 1.0 % Normal 0-1 [facility] Comment on above: Performed By: #### L 500.4050, L503.6005, L501.2450, L100.0100 #### [facility] [address] [place], [address] Eosinophils/100 WBC (Bld) 4.9 % Normal 0-5 [facility] Comment on above: Performed By: #### L 500.4050, L503.6005, L501.2450, L100.0100 #### [facility] [address] [place], [address] Erythrocyte distribution width (RBC) [Ratio] 13.6 % Normal 11.6-14.6 [facility] Comment on above: Performed By: #### L 500.4050, L503.6005, L501.2450, L100.0100 #### [facility] [address] [place], [address] Hematocrit (Bld) [Volume fraction] 40.8 % Normal 40-54 [facility] Comment on above: Performed By: #### L 500.4050, L503.6005, L501.2450, L100.0100 #### [facility] [address] [place], [address] Hemoglobin (Bld) [Mass/Vol] 13.4 g/dL Normal 13.0-16.5 [facility] Comment on above: Performed By: #### L 500.4050, L503.6005, L501.2450, L100.0100 #### [facility] [address] [place], [address] IG% 0.300 Normal 0.0-0.9 [facility] Comment on above: Result Comment: IG% - Immature Granulocytes (promyelocytes, myelocytes and metamyelocytes) > 1% indicates that a LEFT SHIFT is Present. Performed By: #### L 500.4050, L503.6005, L501.2450, L100.0100 #### [facility] [address] [place], [address] Lymphocytes/100 WBC (Bld) 28.1 % Normal 19-41 [facility] Comment on above: Performed By: #### L 500.4050, L503.6005, L501.2450, L100.0100 #### [facility] [address] [place], [address] MCH (RBC) [Entitic mass] 29.9 pg Normal 27.0-32.0 [facility] Comment on above: Performed By: #### L 500.4050, L503.6005, L501.2450, L100.0100 #### [facility] [address] [place], [address] MCHC (RBC) [Mass/Vol] 32.8 g/dL Normal 32-36 [facility] Comment on above: Performed By: #### L 500.4050, L503.6005, L501.2450, L100.0100 #### [facility] [address] [place], [address] MCV (RBC) [Entitic vol] 91.1 fL Normal 80-94 [facility] Comment on above: Performed By: #### L 500.4050, L503.6005, L501.2450, L100.0100 #### [facility] [address] [place], [address] Monocytes/100 WBC (Bld) 8.0 % Normal 0-10 [facility] Comment on above: Performed By: #### L 500.4050, L503.6005, L501.2450, L100.0100 #### [facility] [address] [place], [address] Neutrophils/100 WBC (Bld) 57.7 % Normal 47-70 [facility] Comment on above: Performed By: #### L 500.4050, L503.6005, L501.2450, L100.0100 #### [facility] [address] [place], [address] Nucleated RBC (Bld) [#/Vol] 1.3 10*3/uL Normal 0-5 [facility] Comment on above: Performed By: #### L 500.4050, L503.6005, L501.2450, L100.0100 #### [facility] [address] [place], [address] Platelet mean volume (Bld) [Entitic vol] 9.0 fL Normal 6.2-12.0 [facility] Comment on above: Performed By: #### L 500.4050, L503.6005, L501.2450, L100.0100 #### [facility] [address] [place], [address] Platelets (Bld) [#/Vol] 408 10*3/uL Normal 150-450 [facility] Comment on above: Performed By: #### L 500.4050, L503.6005, L501.2450, L100.0100 #### [facility] [address] [place], [address] RBC (Bld) [#/Vol] 4.48 10*6/uL Low 4.6-6.2 [facility] Comment on above: Performed By: #### L 500.4050, L503.6005, L501.2450, L100.0100 #### [facility] [address] [place], [address] RDW SD 45.5 fl High 35.1-43.9 [facility] Comment on above: Performed By: #### L 500.4050, L503.6005, L501.2450, L100.0100 #### [facility] [address] [place], [address] WBC (Bld) [#/Vol] 6.9 10*3/uL Normal 4.4-11.0 [facility] Comment on above: Performed By: #### L 500.4050, L503.6005, L501.2450, L100.0100 #### [facility] [address] [place], [address] Comprehensive Metabolic Prof [facility] 07-01-2024 Albumin [Mass/Vol] 4.2 g/dL Normal 3.2-5.0 [facility] Comment on above: Performed By: #### L 500.4050, L503.6005, L501.2450, L100.0100 #### [facility] [address] [place], [address] Albumin/Globulin [Mass ratio] 1.0 {ratio} Normal 0.9-2.4 [facility] Comment on above: Performed By: #### L 500.4050, L503.6005, L501.2450, L100.0100 #### [facility] [address] [place], [address] ALK P 90 U/L Normal 45-117 [facility] Comment on above: Performed By: #### L 500.4050, L503.6005, L501.2450, L100.0100 #### [facility] [address] [place], [address] ALT [Catalytic activity/Vol] 23 U/L Normal 16-61 [facility] Comment on above: Performed By: #### L 500.4050, L503.6005, L501.2450, L100.0100 #### [facility] [address] [place], [address] AST [Catalytic activity/Vol] 14 U/L Low 15-37 [facility] Comment on above: Performed By: #### L 500.4050, L503.6005, L501.2450, L100.0100 #### [facility] [address] [place], [address] Bilirubin [Mass/Vol] 0.80 mg/dL Normal 0.20-1.00 [facility] Comment on above: Result Comment: For patients on eltrombopag therapy, use of Dimension [place] TBIL is not recommended. Performed By: #### L 500.4050, L503.6005, L501.2450, L100.0100 #### [facility] [address] [place], [address] BUN/CRE 13.4 RATIO Normal 10-20 [facility] Comment on above: Performed By: #### L 500.4050, L503.6005, L501.2450, L100.0100 #### [facility] [address] [place], [address] CA,Total 9.4 mg/dL Normal 8.5-10.1 [facility] Comment on above: Performed By: #### L 500.4050, L503.6005, L501.2450, L100.0100 #### [facility] [address] [place], [address] Chloride [Moles/Vol] 105 mmol/L Normal 98-107 [facility] Comment on above: Performed By: #### L 500.4050, L503.6005, L501.2450, L100.0100 #### [facility] [address] [place], [address] CO2 [Moles/Vol] 29.0 mmol/L Normal 21.0-32.0 [facility] Comment on above: Performed By: #### L 500.4050, L503.6005, L501.2450, L100.0100 #### [facility] [address] [place], [address] Creatinine [Mass/Vol] 1.19 mg/dL Normal 0.70-1.30 [facility] Comment on above: Result Comment: The validity of the calculated GFR GFRAA in patients over 70 years has not been determined. Clinical correlation is essential. Performed By: #### L 500.4050, L503.6005, L501.2450, L100.0100 #### [facility] [address] [place], [address] ECRCL 59.20 ml/min Normal [facility] Comment on above: Performed By: #### L 500.4050, L503.6005, L501.2450, L100.0100 #### [facility] [address] [place], [address] EST GFR - AA 78 mL/min Normal >60 [facility] Comment on above: Result Comment: Afri can Iranian GFR Calc Performed By: #### L 500.4050, L503.6005, L501.2450, L100.0100 #### [facility] [address] [place], [address] GAP 5 Normal 5-15 [facility] Comment on above: Performed By: #### L 500.4050, L503.6005, L501.2450, L100.0100 #### [facility] [address] [place], [address] GFR/1.73 sq M.predicted among non-blacks MDRD (S/P/Bld) [Vol rate/Area] 65 mL/min/{1.73_m2} Normal >60 [facility] Comment on above: Result Comment: Non- GFR Calc Performed By: #### L 500.4050, L503.6005, L501.2450, L100.0100 #### [facility] [address] [place], [address] Globulin (S) [Mass/Vol] 4.1 g/dL Normal 2.2-4.2 [facility] Comment on above: Performed By: #### L 500.4050, L503.6005, L501.2450, L100.0100 #### [facility] [address] [place], [address] Glucose [Mass/Vol] 95 mg/dL Normal 74-106 [facility] Comment on above: Performed By: #### L 500.4050, L503.6005, L501.2450, L100.0100 #### [facility] [address] [place], [address] Potassium [Moles/Vol] 3.9 mmol/L Normal 3.5-5.1 [facility] Comment on above: Performed By: #### L 500.4050, L503.6005, L501.2450, L100.0100 #### [facility] [address] [place], [address] Sodium [Moles/Vol] 139 mmol/L Normal 136-145 [facility] Comment on above: Performed By: #### L 500.4050, L503.6005, L501.2450, L100.0100 #### [facility] [address] [place], [address] T PROT 8.3 g/dL High 6.4-8.2 [facility] Comment on above: Performed By: #### L 500.4050, L503.6005, L501.2450, L100.0100 #### [facility] [address] [place], [address] Urea nitrogen [Mass/Vol] 16 mg/dL Normal 7-18 [facility] Comment on above: Performed By: #### L 500.4050, L503.6005, L501.2450, L100.0100 #### [facility] [address] [place], [address] Emergency Department Summary on 07-01-2024 Emergency Department Summary [facility] Medical Records Department [address] [place] [address] Emergency Department Summary 07/01/24 MR#: [id number] Acct: [id number] Name: WINSTON MARI Rep #: [id number] : 1955 69 From: Barrett Leonard DO PCP: Dr. Eugenio Mayen, DO Status:REG ER Location: ED HPI History of Present Illness Chief Complaint: Flank Pain [facility] Medical History Epilepsy Hemorrhoid High cholesterol Sciatica Home Medications ???Medication ???Instructions ???Recorded ???Last Taken ???Type omeprazole 20 mg capsule,delayed 40 mg PO DAILY 03/23/22 Unknown History release gabapentin 300 mg capsule 300 mg PO 4X/DAY 04/02/22 Unknown History hydrocortisone acetate 25 mg 25 mg [place] QHS #12 ea 04/27/22 Unknown Rx rectal suppository (Anusol-HC) polyethylene glycol 3350 17 17 g PO DAILY #119 grams 04/27/22 Unknown Rx gram/dose oral powder (Miralax) atorvastatin 40 mg tablet (Lipitor) 40 mg PO QHS 01/13/23 Unknown History polyethylene glycol 3350 17 17 g PO DAILY #119 grams 05/31/23 Unknown Rx gram/dose oral powder (ClearLax) cyclobenzaprine 10 mg tablet 10 mg PO TID PRN Muscle Spasm #20 08/09/23 Unknown Rx TABLETS acetaminophen 500 mg tablet mg 10/09/23 Unknown History clopidogrel 75 mg tablet mg 10/09/23 Unknown History duloxetine 30 mg capsule,delayed mg PO 10/09/23 Unknown History release oxycodone 10 mg tablet mg 10/09/23 Unknown History tamsulosin 0.4 mg capsule mg PO 10/09/23 Unknown History diphenhydramine HCl 25 mg capsule 25 mg PO TID PRN allergic reaction 02/06/24 Unknown Rx (Benadryl) #20 caps levofloxacin 750 mg tablet 750 mg PO DAILY 14 days #14 tabs 07/01/24 Unknown Rx ondansetron 4 mg disintegrating 4 mg PO Q8H PRN PRN Nausea #10 tabs 07/01/24 Unknown Rx tablet oxycodone 5 mg tablet 5 mg PO Q6H PRN pain 3 days #12 07/01/24 Unknown Rx tabs Allergy/AdvReac Type Severity Reaction Status Date / Time adhesive tape (tape) AdvReac Rash Verified 07/01/24 19:41 hydrocodone (From [place]) AdvReac Upset Verified 07/01/24 19:41 Stomach ibuprofen AdvReac Upset Verified 07/01/24 19:41 Stomach ketorolac (From Toradol) AdvReac Rash Verified 07/01/24 19:41 naproxen AdvReac Rash Verified 07/01/24 19:41 tramadol AdvReac Upset Verified 07/01/24 19:41 Stomach Surgical History S/P clamping of cerebral aneurysm Social History household members: significant other Smoking Status: Former smoker alcohol intake: former substance use type: does not use EXAM Physical Exam Const Vital Signs: 07/01/24 19:40 07/01/24 21:39 07/01/24 23:00 Temperature 98.2 F Temperature Source Temporal Pulse Rate 69 74 61 Respiratory Rate 16 18 18 Blood Pressure 102/76 108/77 118/79 Blood Pressure Mean 84 87 92 Pulse Ox 100 98 Oxygen Delivery Method Room Air Room Air [facility] Narr[place] Medical decision making narrative: HISTORY OF PRESENT ILLNESS: 69-year-old male with history of hyperlipidemia, presents with flank pain dysuria for last 3 days. He further states 2 days of right flank pain. No falls or trauma. Worse with urination. No hematuria. No fevers or vomiting but notes nausea. Denies history of kidney stones. Denies history abdominal surgeries. Last bowel movement was yesterday. No melena hematochezia. REVIEW OF SYSTEMS: Pertinent positives: Flank pain, dysuria, nausea Pertinent negatives: Chest pain, shortness of breath fever vomiting PHYSICAL EXAM: Nursing triage notes reviewed, Vital signs reviewed Constitutional: please see mdm HENT: MMM Eyes: Pupils equal round and reactive to light, Extraocular muscles intact Neck: No stridor, no JVD, full neck ROM Lungs: Clear to auscultation, No wheezing or rales. No increased work of breathing, no conversational dyspnea, no accessory muscle use, no nasal flaring. No respiratory distress noted Heart: Regular rate and rhythm, No murmurs, No rubs and No gallops, 2+ distal pulses (radial, femoral, posterior tibial) in all extremities Abdomen: Soft, there is no tenderness, rigidity, rebound or guarding, no obvious peritoneal signs, no palpable pulsatile abdominal masses, no auscultated abdominal bruit : right CVA tenderness noted Extremities: No edema Neuro: No focal neurological deficits, cranial nerves II through XII intact, 5/5 strength in all extremities. Intact sensation to light touch in all extremities, 2+ reflexes bilateral patella tendons. Normal gait. No ataxia. Skin: No rash or lesions noted MEDICAL DECISION MAKING: Chief Complaint: Flank pain, dysuria External records reviewed: Reviewed prior imaging: Reviewed CT scan of the (more content not included)... Normal [facility] Lactic Acidon 07-01-2024 Lactate [Moles/Vol] 0.8 mmol/L Normal 0.4-1.9 [facility] Comment on above: Order Comment: Y Performed By: #### L 500.0030, L503.5165, L501.2450, L100.0100 #### [facility] [address] [place], [address] Lipaseon 07-01-2024 Lipase [Catalytic activity/Vol] 29 U/L Normal 13-75 [facility] Comment on above: Result Comment: Charlie maciel note: LIPASE revised reference range effective 23. New Lipase methodology. Expected to produce lower values than the previous assay method. NEW Reference Range: 13 - 75 U/L Performed By: #### L 500.4050, L503.6005, L501.2450, L100.0100 #### [facility] [address] [place], [address] Urinalysis, Completeon 07-01 BACTERIA 2+ /hpf Normal None Seen [facility] Comment on above: Order Comment: Y Performed By: #### L 500.4050, L503.6005, L501.2450, L100.0100 #### [facility] [address] [place], [address] WBC >100 SEEN Normal 0-5 [facility] Comment on above: Order Comment: Y Performed By: #### L 500.4050, L503.6005, L501.2450, L100.0100 #### [facility] [address] [place], [address] BILIRUBIN URINE Negative Normal Negative [facility] Comment on above: Order Comment: Y Performed By: #### L 500.4050, L503.6005, L501.2450, L100.0100 #### [facility] [address] [place], [address] Clarity (U) Sl. Cloudy Normal Clear [facility] Comment on above: Order Comment: Y Performed By: #### L 500.4050, L503.6005, L501.2450, L100.0100 #### [facility] [address] [place], [address] Color (U) Yellow Normal Yellow [facility] Comment on above: Order Comment: Y Performed By: #### L 500.4050, L503.6005, L501.2450, L100.0100 #### [facility] [address] [place], [address] GLUCOSE, UR Normal Normal Normal [facility] Comment on above: Order Comment: Y Performed By: #### L 500.4050, L503.6005, L501.2450, L100.0100 #### [facility] [address] [place], [address] KETONE UR Negative Normal Negative [facility] Comment on above: Order Comment: Y Performed By: #### L 500.4050, L503.6005, L501.2450, L100.0100 #### [facility] [address] [place], [address] LEUK ESTERASE 500 /ul Abnormal Negative [facility] Comment on above: Order Comment: Y Performed By: #### L 500.4050, L503.6005, L501.2450, L100.0100 #### [facility] [address] [place], [address] Nitrite Ql (U) Negative Normal Negative [facility] Comment on above: Order Comment: Y Performed By: #### L 500.4050, L503.6005, L501.2450, L100.0100 #### [facility] [address] [place], [address] OCCULT BLOOD-UR Negative Normal Negative [facility] Comment on above: Order Comment: Y Performed By: #### L 500.4050, L503.6005, L501.2450, L100.0100 #### [facility] [address] [place], [address] pH UR 7.0 Normal 5.0 - 8.0 [facility] Comment on above: Order Comment: Y Performed By: #### L 500.4050, L503.6005, L501.2450, L100.0100 #### [facility] [address] [place], [address] PROT DIPSTX 15 mg/dl Abnormal Negative [facility] Comment on above: Order Comment: Y Performed By: #### L 500.4050, L503.6005, L501.2450, L100.0100 #### [facility] [address] [place], [address] SP.GR. DIPSTX 1.005 Normal 1.002-1.03 0 [facility] Comment on above: Order Comment: Y Performed By: #### L 500.4050, L503.6005, L501.2450, L100.0100 #### [facility] [address] [place], [address] UROBILI Normal Normal Normal [facility] Comment on above: Order Comment: Y Performed By: #### L 500.4050, L503.6005, L501.2450, L100.0100 #### [facility] [address] [place], [address] EPI,SQUAMOUS 0 SEEN Normal 0-5 [facility] Comment on above: Order Comment: Y Performed By: #### L 500.4050, L503.6005, L501.2450, L100.0100 #### [facility] [address] [place], [address] Mucus Ql (Urine sed) 0 SEEN Normal [facility] Comment on above: Order Comment: Y Performed By: #### L 500.4050, L503.6005, L501.2450, L100.0100 #### [facility] [address] [place], [address] RBC 0 SEEN Normal 0-5 [facility] Comment on above: Order Comment: Y Performed By: #### L 500.4050, L503.6005, L501.2450, L100.0100 #### [facility] [address] [place], [address] BACTERIA Normal None Seen [facility] Comment on above: Order Comment: Y Result Comment: PT D ISCHARGED Performed By: #### L 500.4050, L503.6005, L501.2450, L100.0100 #### [facility] [address] [place], [address] BILIRUBIN URINE Normal Negative [facility] Comment on above: Order Comment: Y Result Comment: PT D ISCHARGED Performed By: #### L 500.4050, L503.6005, L501.2450, L100.0100 #### [facility] [address] [place], [address] Clarity (U) Normal Clear [facility] Comment on above: Order Comment: Y Result Comment: PT D ISCHARGED Performed By: #### L 500.4050, L503.6005, L501.2450, L100.0100 #### [facility] [address] [place], [address] Color (U) Normal Yellow [facility] Comment on above: Order Comment: Y Result Comment: PT D ISCHARGED Performed By: #### L 500.4050, L503.6005, L501.2450, L100.0100 #### [facility] [address] [place], [address] EPI,SQUAMOUS Normal 0-5 [facility] Comment on above: Order Comment: Y Result Comment: PT D ISCHARGED Performed By: #### L 500.4050, L503.6005, L501.2450, L100.0100 #### [facility] [address] [place], [address] GLUCOSE, UR Normal Normal [facility] Comment on above: Order Comment: Y Result Comment: PT D ISCHARGED Performed By: #### L 500.4050, L503.6005, L501.2450, L100.0100 #### [facility] [address] [place], [address] KETONE UR Normal Negative [facility] Comment on above: Order Comment: Y Result Comment: PT D ISCHARGED Performed By: #### L 500.4050, L503.6005, L501.2450, L100.0100 #### [facility] [address] [place], [address] LEUK ESTERASE Normal Negative [facility] Comment on above: Order Comment: Y Result Comment: PT D ISCHARGED Performed By: #### L 500.4050, L503.6005, L501.2450, L100.0100 #### [facility] [address] [place], [address] Mucus Ql (Urine sed) Normal [facility] Comment on above: Order Comment: Y Result Comment: PT D ISCHARGED Performed By: #### L 500.4050, L503.6005, L501.2450, L100.0100 #### [facility] [address] [place], [address] Nitrite Ql (U) Normal Negative [facility] Comment on above: Order Comment: Y Result Comment: PT D ISCHARGED Performed By: #### L 500.4050, L503.6005, L501.2450, L100.0100 #### [facility] [address] [place], [address] OCCULT BLOOD-UR Normal Negative [facility] Comment on above: Order Comment: Y Result Comment: PT D ISCHARGED Performed By: #### L 500.4050, L503.6005, L501.2450, L100.0100 #### [facility] [address] [place], [address] pH UR Normal 5.0 - 8.0 [facility] Comment on above: Order Comment: Y Result Comment: PT D ISCHARGED Performed By: #### L 500.4050, L503.6005, L501.2450, L100.0100 #### [facility] [address] [place], [address] PROT DIPSTX Normal Negative [facility] Comment on above: Order Comment: Y Result Comment: PT D ISCHARGED Performed By: #### L 500.4050, L503.6005, L501.2450, L100.0100 #### [facility] [address] [place], [address] RBC Normal 0-5 [facility] Comment on above: Order Comment: Y Result Comment: PT D ISCHARGED Performed By: #### L 500.4050, L503.6005, L501.2450, L100.0100 #### [facility] [address] [place], [address] SP.GR. DIPSTX Normal 1.002-1.03 0 [facility] Comment on above: Order Comment: Y Result Comment: PT D ISCHARGED Performed By: #### L 500.4050, L503.6005, L501.2450, L100.0100 #### [facility] [address] [place], [address] UR Preservative Normal [facility] Comment on above: Order Comment: Y Result Comment: PT D ISCHARGED Performed By: #### L 500.4050, L503.6005, L501.2450, L100.0100 #### [facility] [address] [place], [address] UROBILI Normal Normal [facility] Comment on above: Order Comment: Y Result Comment: PT D ISCHARGED Performed By: #### L 500.4050, L503.6005, L501.2450, L100.0100 #### [facility] [address] [place], [address] WBC Normal 0-5 [facility] Comment on above: Order Comment: Y Result Comment: PT D ISCHARGED Performed By: #### L 500.4050, L503.6005, L501.2450, L100.0100 #### [facility] [address] [place], [address] MUMPSon 12-11-2023 Mumps Ab Positive Normal [facility] ([place]) Comment on above: Result Comment: INTE RPRETATION OF MUMPS IgG BY EIA: Negative: No detectable Mumps IgG antibody. Positive: Mumps IgG antibody Detected. This test does not differentiate between current or previous infection. If clinically indicated, order Mumps IgM to rule out active infection. Equivocal: Equivocal for IgG antibodies to Mumps. Suggest repeat testing in 10-14 days. Performed By: #### M G, CBC, FES, VIDH, ADIFF, CMP, LIPID, GFR, ANEU, PSA, FERR #### [address] [address] #### HCV1, VARIS, MUMP, RUBEO, RUBIS #### [address] [address] RUBEOon 12-11-2023 Rubeola IgG Ab Positive Normal [facility] ([place]) Comment on above: Result Comment: INTE RPRETATION OF RUBEOLA (MEASLES) IgG BY EIA: Negative: No detectable Measles IgG antibody. Presumed non-immune to measles virus. Positive: Measles IgG antibody Detected. Presumed immune to measles virus. If clinically indicated, order Measles IgM to rule out active infection. Equivocal: Equivocal for antibodies to Measles. Suggest repeat testing 10-14 days. Performed By: #### M G, CBC, FES, VIDH, ADIFF, CMP, LIPID, GFR, ANEU, PSA, FERR #### [address] [address] #### HCV1, VARIS, MUMP, RUBEO, RUBIS #### [address] [address] VARISon 12-11-[address] Positive Normal [facility] ([place]) Comment on above: Result Comment: INTE RPRETATION OF VARICELLA IMMUNE STATUS IgG BY EIA: Negative: No detectable VZV IgG antibody. Positive: VZV IgG antibody Detected. If clinically indicated, order Varicella IgM to rule out recent infection. Equivocal: Equivocal for antibodies to VZV. Suggest repeat testing in 10-14 days. Performed By: #### M G, CBC, FES, VIDH, ADIFF, CMP, LIPID, GFR, ANEU, PSA, FERR #### [facility] [address] [place], [place] [address] #### HCV1, VARIS, MUMP, RUBEO, RUBIS #### [place] [id number] [place] [address] THORAX W/O CONTRASTon CT THORAX W/O CONTRAST ORIGINAL EXAMINATION: CT OF THE CHEST WITHOUT CONTRAST 12/07/2023 10:36 am TECHNIQUE: CT of the chest was performed without the administration of intravenous contrast. Multiplanar reformatted images are provided for review. Automated exposure control, iterative reconstruction, and/or weight based adjustment of the mA/kV was utilized to reduce the radiation dose to as low as reasonably achievable. COMPARISON: Chest CT, 08/10/2023 HISTORY: ORDERING SYSTEM PROVIDED HISTORY: Reason for Exam: follow up lung nodules and lymph node follow up lung nodules and lymph node. pt denies physical complaints. FINDINGS: Mediastinum/Pleura: There is no evidence of axillary, supraclavicular or mediastinal lymphadenopathy although evaluation is limited by the lack of IV contrast. The heart size is with normal limits. Minor atherosclerotic aortic and coronary arterial calcifications noted. No evidence of pleural or pericardial effusion. Lungs: At lung window, no focal consolidation is identified. Minimal emphysematous changes are present with upper lobe predominance as expected. Stable partially calcified nodule in the mid right lung adjacent to the major fissure on image 46. Bilobed 4 x 8 mm right lower lobe pulmonary nodule on image 51 is unchanged. Stable 4 mm nodule in the lateral aspect of the left lower lobe on image 67. Stable calcified granuloma in the inferior lingula on image 64. No other pulmonary nodules or masses are seen. No evidence of pneumothorax. Upper Abdomen/Bones: The visualized upper abdominal contents are unremarkable. No acute bony abnormalities are seen. IMPRESSION: 1. No suspicious pulmonary nodules or masses are identified. 2. Noncalcified bilateral subcentimeter pulmonary nodules are all stable compared to the previous exam. Follow-up chest CT recommended in 9-12 months to ensure stability. 3. Mild emphysema. 4. No acute cardiopulmonary process. 5. Old granulomatous disease. Interpreted by: Vince Corrales MD Preliminary Report By: Vince Corrales MD Electronically signed By Vince Corrales MD Dictated Date: 12/08/2023 2:55:31 PM Prelim Date: 12/08/2023 2:59:30 PM Sign Date: 12/08/2023 2:59:30 PM Ordering Provider: EUGENIO MAYEN [facility] ([place]) HCVon 12-08-2023 Hep C Ab Non-Reactive Normal Non-Reacti ve [facility] ([place]) Comment on above: Performed By: #### M G, CBC, FES, VIDH, ADIFF, CMP, LIPID, GFR, ANEU, PSA, FERR #### [place] [id number] #### HCV1, VARIS, MUMP, RUBEO, RUBIS #### [address] [address] Hep C Ab Int Normal [facility] ([place]) Comment on above: Result Comment: Nonr eactive: Samples with a value < 0.80 are considered nonreactive (negative) for antibodies to HCV. A negative test result does not exclude the possibility of exposure to or infection with HCV. HCV antibodies may be undetectable in some stages of the infection and in some clinical conditions. See Interp Performed By: #### M G, CBC, FES, VIDH, ADIFF, CMP, LIPID, GFR, ANEU, PSA, FERR #### [address] [address] #### HCV1, VARIS, MUMP, RUBEO, RUBIS #### [address] [address] RUBISon 12-08-[address] Positive Normal Positive [facility] ([place]) Comment on above: Result Comment: This immune status assay detects IgM and/or IgG antibody to Rubella. Interpret results in conjunction with clinical history. POS: Antibody detected; exposure at undetermined recent or distant time. If clinically indicated, order Rubella IGM to rule out recent infection. NEG: No antibody detected. Performed By: #### M G, CBC, FES, VIDH, ADIFF, CMP, LIPID, GFR, ANEU, PSA, FERR #### [place] [address] #### HCV1, VARIS, MUMP, RUBEO, RUBIS #### [address] [address] .Auto Diffon 12-07-2023 Basophil, Absolute 0.1 10 3/mcL Normal 0.0-0.2 [facility] ([place]) Comment on above: Performed By: #### M G, CBC, FES, VIDH, ADIFF, CMP, LIPID, GFR, ANEU, PSA, FERR #### [place] [address] #### HCV1, VARIS, MUMP, RUBEO, RUBIS #### [place] [address] Basophils/100 WBC (Bld) 1.1 % Normal 0.0-2.5 [facility] ([place]) Comment on above: Performed By: #### M G, CBC, FES, VIDH, ADIFF, CMP, LIPID, GFR, ANEU, PSA, FERR #### [place] [address] #### HCV1, VARIS, MUMP, RUBEO, RUBIS #### [address] [address] Eosinophil, Absolute 0.4 10 3/mcL Normal 0.0-0.4 [facility] ([place]) Comment on above: Performed By: #### M G, CBC, FES, VIDH, ADIFF, CMP, LIPID, GFR, ANEU, PSA, FERR #### [place] [address] #### HCV1, VARIS, MUMP, RUBEO, RUBIS #### [address] [address] Eosinophils/100 WBC (Bld) 7.0 % Normal 0.0-7.0 [facility] ([place]) Comment on above: Performed By: #### M G, CBC, FES, VIDH, ADIFF, CMP, LIPID, GFR, ANEU, PSA, FERR #### [address] [address] #### HCV1, VARIS, MUMP, RUBEO, RUBIS #### [address] [address] Lymphocyte, Absolute 1.6 10 3/mcL Normal 0.8-3.9 [facility] ([place]) Comment on above: Performed By: #### M G, CBC, FES, VIDH, ADIFF, CMP, LIPID, GFR, ANEU, PSA, FERR #### [address] [address] #### HCV1, VARIS, MUMP, RUBEO, RUBIS #### [address] [address] Lymphocytes/100 WBC (Bld) 25.1 % Normal 10.0-50.0 [facility] ([place]) Comment on above: Performed By: #### M G, CBC, FES, VIDH, ADIFF, CMP, LIPID, GFR, ANEU, PSA, FERR #### [address] [address] #### HCV1, VARIS, MUMP, RUBEO, RUBIS #### [address] [address] Monocyte, Absolute 0.6 10 3/mcL Normal 0.2-1.0 [facility] ([place] Comment on above: Performed By: #### M G, CBC, FES, VIDH, ADIFF, CMP, LIPID, GFR, ANEU, PSA, FERR #### [address] [address] #### HCV1, VARIS, MUMP, RUBEO, RUBIS #### [address] [address] Monocytes/100 WBC (Bld) 8.9 % Normal 1.7-13.0 [facility] ([place]) Comment on above: Performed By: #### M G, CBC, FES, VIDH, ADIFF, CMP, LIPID, GFR, ANEU, PSA, FERR #### [address] [address] #### HCV1, VARIS, MUMP, RUBEO, RUBIS #### [address] [address] Neutrophils/100 WBC (Bld) 57.9 % Normal 37.0-80.0 [facility] ([place]) Comment on above: Performed By: #### M G, CBC, FES, VIDH, ADIFF, CMP, LIPID, GFR, ANEU, PSA, FERR #### [address] [address] #### HCV1, VARIS, MUMP, RUBEO, RUBIS #### [address] [address] .GFRon 12-07-2023 GFR 88 ml/min/1.73sqm Normal [facility] ([place]) Comment on above: Result Comment: GFR Population mean for , Non- Americans Ages 20-29 = 116 mL/min/1.73 sq.m. Ages 30-39 = 107 mL/min/1.73 sq.m. Ages 40-49 = 99 mL/min/1.73 sq.m. Ages 50-59 = 93 mL/min/1.73 sq.m. Ages 60-69 = 85 mL/min/1.73 sq.m. Ages 70+ = 75 mL/min/1.73 sq.m. Chronic Kidney Disease: Less than 60 mL/min/1.73 square meters End Stage Renal Disease: Less than 15 mL/min/1.73 square meters Performed By: #### M G, CBC, FES, VIDH, ADIFF, CMP, LIPID, GFR, ANEU, PSA, FERR #### [address] [address] #### HCV1, VARIS, MUMP, RUBEO, RUBIS #### [address] [address] GFR Non- 73 ml/min/1.73sqm Normal [facility] ([place]) Comment on above: Result Comment: GFR Population mean for , Non- Americans Ages 20-29 = 116 mL/min/1.73 sq.m. Ages 30-39 = 107 mL/min/1.73 sq.m. Ages 40-49 = 99 mL/min/1.73 sq.m. Ages 50-59 = 93 mL/min/1.73 sq.m. Ages 60-69 = 85 mL/min/1.73 sq.m. Ages 70+ = 75 mL/min/1.73 sq.m. Chronic Kidney Disease: Less than 60 mL/min/1.73 square meters End Stage Renal Disease: Less than 15 mL/min/1.73 square meters Performed By: #### M G, CBC, FES, VIDH, ADIFF, CMP, LIPID, GFR, ANEU, PSA, FERR #### [place] [id number] #### HCV1, VARIS, MUMP, RUBEO, RUBIS #### [address] [address] .NEUABSon 12-07-2023 Neutrophil, Absolute 3.7 10 3/mcL Normal 2.9-6.2 [facility] ([place]) Comment on above: Performed By: #### M G, CBC, FES, VIDH, ADIFF, CMP, LIPID, GFR, ANEU, PSA, FERR #### [place] [id number] #### HCV1, VARIS, MUMP, RUBEO, RUBIS #### [address] [address] CBCon 12-07-2023 Erythrocyte distribution width (RBC) [Ratio] 14.1 % Normal 11.5-14.5 [facility] ([place]) Comment on above: Performed By: #### M G, CBC, FES, VIDH, ADIFF, CMP, LIPID, GFR, ANEU, PSA, FERR #### [place] [id number] #### HCV1, VARIS, MUMP, RUBEO, RUBIS #### [address] [address] Hematocrit (Bld) [Volume fraction] 37.0 % Low 42.0-52.0 [facility] ([place]) Comment on above: Performed By: #### M G, CBC, FES, VIDH, ADIFF, CMP, LIPID, GFR, ANEU, PSA, FERR #### [place] [id number] #### HCV1, VARIS, MUMP, RUBEO, RUBIS #### [address] [address] Hgb 12.9 G/dL Low 14.0-18.0 [facility] ([place] Comment on above: Performed By: #### M G, CBC, FES, VIDH, ADIFF, CMP, LIPID, GFR, ANEU, PSA, FERR #### [place] [id number] #### HCV1, VARIS, MUMP, RUBEO, RUBIS #### [address] [address] MCH (RBC) [Entitic mass] 31.2 pg Normal 27.0-31.2 [facility] ([place]) Comment on above: Performed By: #### M G, CBC, FES, VIDH, ADIFF, CMP, LIPID, GFR, ANEU, PSA, FERR #### [place] [address] #### HCV1, VARIS, MUMP, RUBEO, RUBIS #### [address] [address] MCHC 34.8 G/dL Normal 31.8-35.4 [facility] ([place] Comment on above: Performed By: #### M G, CBC, FES, VIDH, ADIFF, CMP, LIPID, GFR, ANEU, PSA, FERR #### [place] [id number] #### HCV1, VARIS, MUMP, RUBEO, RUBIS #### [address] [address] MCV (RBC) [Entitic vol] 89.5 fL Normal 80.0-94.0 [facility] ([place]) Comment on above: Performed By: #### M G, CBC, FES, VIDH, ADIFF, CMP, LIPID, GFR, ANEU, PSA, FERR #### [place] [address] #### HCV1, VARIS, MUMP, RUBEO, RUBIS #### [place] [address] Platelet 427 10 3/mcL High 130-400 [facility] ([place] Comment on above: Performed By: #### M G, CBC, FES, VIDH, ADIFF, CMP, LIPID, GFR, ANEU, PSA, FERR #### [place] [address] #### HCV1, VARIS, MUMP, RUBEO, RUBIS #### [place] [address] Platelet mean volume (Bld) [Entitic vol] 6.8 fL Low 7.4-10.4 [facility] ([place] Comment on above: Performed By: #### M G, CBC, FES, VIDH, ADIFF, CMP, LIPID, GFR, ANEU, PSA, FERR #### [place] [address] #### HCV1, VARIS, MUMP, RUBEO, RUBIS #### [place] [address] RBC 4.14 10 6/mcL Normal 4.04-6.13 [facility] ([place] Comment on above: Performed By: #### M G, CBC, FES, VIDH, ADIFF, CMP, LIPID, GFR, ANEU, PSA, FERR #### [place] [address] #### HCV1, VARIS, MUMP, RUBEO, RUBIS #### [place] [address] WBC 6.3 10 3/mcL Normal 4.6-10.8 [facility] ([place] Comment on above: Performed By: #### M G, CBC, FES, VIDH, ADIFF, CMP, LIPID, GFR, ANEU, PSA, FERR #### [address] [address] #### HCV1, VARIS, MUMP, RUBEO, RUBIS #### [address] [address] CMPon 12-07-2023 Albumin Level 3.8 G/dL Normal 3.4-4.8 [facility] ([place]) Comment on above: Performed By: #### M G, CBC, FES, VIDH, ADIFF, CMP, LIPID, GFR, ANEU, PSA, FERR #### [address] [address] #### HCV1, VARIS, MUMP, RUBEO, RUBIS #### [place] [address] Albumin/Globulin [Mass ratio] 1.1 {ratio} Normal 1.1-2.5 [facility] ([place]) Comment on above: Performed By: #### M G, CBC, FES, VIDH, ADIFF, CMP, LIPID, GFR, ANEU, PSA, FERR #### [address] [address] #### HCV1, VARIS, MUMP, RUBEO, RUBIS #### [address] [address] ALP [Catalytic activity/Vol] 91 U/L Normal 40-135 [facility] ([place]) Comment on above: Performed By: #### M G, CBC, FES, VIDH, ADIFF, CMP, LIPID, GFR, ANEU, PSA, FERR #### [address] [address] #### HCV1, VARIS, MUMP, RUBEO, RUBIS #### [address] [address] ALT [Catalytic activity/Vol] 22 U/L Normal 16-63 [facility] ([place]) Comment on above: Performed By: #### M G, CBC, FES, VIDH, ADIFF, CMP, LIPID, GFR, ANEU, PSA, FERR #### [address] [address] #### HCV1, VARIS, MUMP, RUBEO, RUBIS #### [address] [address] AST [Catalytic activity/Vol] 12 U/L Normal 10-40 [facility] ([place]) Comment on above: Performed By: #### M G, CBC, FES, VIDH, ADIFF, CMP, LIPID, GFR, ANEU, PSA, FERR #### [place] [address] #### HCV1, VARIS, MUMP, RUBEO, RUBIS #### [address] [address] Bili Total 0.6 mg/dL Normal 0.2-1.0 [facility] ([place]) Comment on above: Result Comment: Use of this assay is not recommended for patients undergoing treatment with eltrombopag due to the potential for falsely elevated results. Performed By: #### M G, CBC, FES, VIDH, ADIFF, CMP, LIPID, GFR, ANEU, PSA, FERR #### [address] [address] #### HCV1, VARIS, MUMP, RUBEO, RUBIS #### [address] [address] BUN/Creatinine Ratio 16 ratio Normal 7-27 [facility] ([place]) Comment on above: Performed By: #### M G, CBC, FES, VIDH, ADIFF, CMP, LIPID, GFR, ANEU, PSA, FERR #### [address] [address] #### HCV1, VARIS, MUMP, RUBEO, RUBIS #### [address] [address] Calcium [Mass/Vol] 9.0 mg/dL Normal 8.4-10.2 [facility] ([place]) Comment on above: Performed By: #### M G, CBC, FES, VIDH, ADIFF, CMP, LIPID, GFR, ANEU, PSA, FERR #### [address] [address] #### HCV1, VARIS, MUMP, RUBEO, RUBIS #### [address] [address] Chloride [Moles/Vol] 104 mmol/L Normal 98-107 [facility] ([place]) Comment on above: Performed By: #### M G, CBC, FES, VIDH, ADIFF, CMP, LIPID, GFR, ANEU, PSA, FERR #### [place] [address] #### HCV1, VARIS, MUMP, RUBEO, RUBIS #### [address] [address] CO2 [Moles/Vol] 30 mmol/L Normal 23-31 [facility] ([place]) Comment on above: Performed By: #### M G, CBC, FES, VIDH, ADIFF, CMP, LIPID, GFR, ANEU, PSA, FERR #### [place] [address] #### HCV1, VARIS, MUMP, RUBEO, RUBIS #### [address] [address] Creatinine [Mass/Vol] 1.02 mg/dL Normal 0.70-1.30 [facility] ([place]) Comment on above: Performed By: #### M G, CBC, FES, VIDH, ADIFF, CMP, LIPID, GFR, ANEU, PSA, FERR #### [place] [address] #### HCV1, VARIS, MUMP, RUBEO, RUBIS #### [address] [address] Electrolyte Balance 6.0 mEq/L Normal 4.0-15.0 [facility] ([place]) Comment on above: Performed By: #### M G, CBC, FES, VIDH, ADIFF, CMP, LIPID, GFR, ANEU, PSA, FERR #### [address] [address] #### HCV1, VARIS, MUMP, RUBEO, RUBIS #### [address] [address] Globulin 3.5 G/dL Normal [facility] ([place]) Comment on above: Performed By: #### M G, CBC, FES, VIDH, ADIFF, CMP, LIPID, GFR, ANEU, PSA, FERR #### [address] [address] #### HCV1, VARIS, MUMP, RUBEO, RUBIS #### [address] [address] Glucose [Mass/Vol] 82 mg/dL Normal 80-115 [facility] ([place]) Comment on above: Performed By: #### M G, CBC, FES, VIDH, ADIFF, CMP, LIPID, GFR, ANEU, PSA, FERR #### [address] [address] #### HCV1, VARIS, MUMP, RUBEO, RUBIS #### [address] [address] Potassium [Moles/Vol] 4.8 mmol/L Normal 3.5-5.1 [facility] ([place]) Comment on above: Performed By: #### M G, CBC, FES, VIDH, ADIFF, CMP, LIPID, GFR, ANEU, PSA, FERR #### [address] [address] #### HCV1, VARIS, MUMP, RUBEO, RUBIS #### [address] [address] Sodium [Moles/Vol] 140 mmol/L Normal 136-145 [facility] ([place]) Comment on above: Performed By: #### M G, CBC, FES, VIDH, ADIFF, CMP, LIPID, GFR, ANEU, PSA, FERR #### [address] [address] #### HCV1, VARIS, MUMP, RUBEO, RUBIS #### [address] [address] Total Protein 7.3 G/dL Normal 6.4-8.2 [facility] ([place] Comment on above: Performed By: #### M G, CBC, FES, VIDH, ADIFF, CMP, LIPID, GFR, ANEU, PSA, FERR #### [place] [address] #### HCV1, VARIS, MUMP, RUBEO, RUBIS #### [address] [address] Urea nitrogen [Mass/Vol] 16 mg/dL Normal 7-18 [facility] ([place] Comment on above: Performed By: #### M G, CBC, FES, VIDH, ADIFF, CMP, LIPID, GFR, ANEU, PSA, FERR #### [place] [address] #### HCV1, VARIS, MUMP, RUBEO, RUBIS #### [address] [address] Sina 12-07-2023 Ferritin [Mass/Vol] 83.0 ng/mL Normal 26.0-388.0 [facility] ([place]) Comment on above: Performed By: #### M G, CBC, FES, VIDH, ADIFF, CMP, LIPID, GFR, ANEU, PSA, FERR #### [place] [address] #### HCV1, VARIS, MUMP, RUBEO, RUBIS #### [address] [address] FESon 12-07-2023 Iron [Mass/Vol] 92 ug/dL Normal 65-175 [facility] ([place] Comment on above: Performed By: #### M G, CBC, FES, VIDH, ADIFF, CMP, LIPID, GFR, ANEU, PSA, FERR #### [place] [address] #### HCV1, VARIS, MUMP, RUBEO, RUBIS #### [place] [address] Iron Sat 26 % Normal [facility] ([place]) Comment on above: Performed By: #### M G, CBC, FES, VIDH, ADIFF, CMP, LIPID, GFR, ANEU, PSA, FERR #### [place] [address] #### HCV1, VARIS, MUMP, RUBEO, RUBIS #### [place] [address] TIBC 359 mcg/dL Normal 250-450 [facility] ([place]) Comment on above: Performed By: #### M G, CBC, FES, VIDH, ADIFF, CMP, LIPID, GFR, ANEU, PSA, FERR #### [place] [address] #### HCV1, VARIS, MUMP, RUBEO, RUBIS #### [place] [address] LABORATORYOrdered By: SYSTEM SYSTEM on 12-07-2023 25-hydroxyvitamin D3 [Mass/Vol] 34.6 ng/mL Invalid Interpretation Code AO ADM SS Comment on above: Interpretive Data: I nterpretive Values Based on Total 25(OH) Vitamin D: Deficient <20 ng/mL Insufficient 20 - <30 ng/mL Sufficient 30-100 ng/mL Albumin BCP dye [Mass/Vol] 3.8 G/dL Normal 3.4 - 4.8 G/dL AO ADM SS Albumin/Globulin [Mass ratio] 1.1 {ratio} Normal 1.1 - 2.5 ratio AO ADM SS ALP [Catalytic activity/Vol] 91 U/L Normal 40 - 135 U/L AO ADM SS ALT With P-5'-P [Catalytic activity/Vol] 22 U/L Normal 16 - 63 U/L AO ADM SS AST With P-5'-P [Catalytic activity/Vol] 12 U/L Normal 10 - 40 U/L AO ADM SS Basophil, Absolute 0.1 103/mcL Normal 0.0 - 0.2 10^3/mcL AO Workflow SS Basophils/100 WBC (Bld) 1.1 % Normal 0.0 - 2.5 % AO Workflow SS Bilirubin [Mass/Vol] 0.6 mg/dL Normal 0.2 - 1 .0 mg/dL AO ADM SS Comment on above: Interpretive Data: U se of this assay is not recommended for patients undergoing treatment with eltrombopag due to the potential for falsely elevated results. Calcium [Mass/Vol] 9.0 mg/dL Normal 8.4 - 10. 2 mg/dL AO ADM SS Chloride [Moles/Vol] 104 mmol/L Normal 98 - 10 7 mmol/L AO ADM SS CO2 [Moles/Vol] 30 mmol/L Normal 23 - 31 mmol/L AO ADM SS Creatinine [Mass/Vol] 1.02 mg/dL Normal 0.70 - 1.30 mg/dL AO ADM SS Electrolyte Balance 6.0 mEq/L Normal 4.0 - 15 .0 mEq/L AO ADM SS Eosinophil, Absolute 0.4 103/mcL Normal 0.0 - 0 .4 10^3/mcL AO Workflow SS Eosinophils/100 WBC (Bld) 7.0 % Normal 0.0 - 7.0 % AO Workflow SS Erythrocyte distribution width (RBC) [Ratio] 14.1 % Normal 11.5 - 14.5 % AO Workflow SS Ferritin [Mass/Vol] 83.0 ng/mL Normal 26.0 - 388.0 ng/mL AO ADM SS GFR/1.73 sq M.predicted among blacks MDRD (S/P/Bld) [Vol rate/Area] 88 ml/min/1.73sqm Invalid Interpretation Code AO Chemistry S Comment on above: Interpretive Data: GFR Population mean for , Non- Americans Ages 20-29 = 116 mL/min/1.73 sq.m. Ages 30-39 = 107 mL/min/1.73 sq.m. Ages 40-49 = 99 mL/min/1.73 sq.m. Ages 50-59 = 93 mL/min/1.73 sq.m. Ages 60-69 = 85 mL/min/1.73 sq.m. Ages 70+ = 75 mL/min/1.73 sq.m. Chronic Kidney Disease: Less than 60 mL/min/1.73 square meters End Stage Renal Disease: Less than 15 mL/min/1.73 square meters GFR/1.73 sq M.predicted among non-blacks MDRD (S/P/Bld) [Vol rate/Area] 73 ml/min/1.73sqm Invalid Interpretation Code AO Chemistry S Comment on above: Interpretive Data: GFR Population mean for , Non- Americans Ages 20-29 = 116 mL/min/1.73 sq.m. Ages 30-39 = 107 mL/min/1.73 sq.m. Ages 40-49 = 99 mL/min/1.73 sq.m. Ages 50-59 = 93 mL/min/1.73 sq.m. Ages 60-69 = 85 mL/min/1.73 sq.m. Ages 70+ = 75 mL/min/1.73 sq.m. Chronic Kidney Disease: Less than 60 mL/min/1.73 square meters End Stage Renal Disease: Less than 15 mL/min/1.73 square meters Globulin 3.5 G/dL Invalid Interpretation Code AO ADM SS Glucose [Mass/Vol] 82 mg/dL Normal 80 - 115 mg/dL AO ADM SS Hematocrit (Bld) [Volume fraction] 37.0 % Low 42.0 - 52.0 % AO Workflow SS Hemoglobin (Bld) [Mass/Vol] 12.9 G/dL Low 14.0 - 18.0 G/dL AO Workflow SS Iron [Mass/Vol] 92 ug/dL Normal 65 - 175 mcg/dL AO ADM SS Iron binding capacity [Mass/Vol] 359 mcg/dL Normal 250 - 450 mcg/dL AO ADM SS Iron Sat 26 % Invalid Interpretation Code AO ADM SS Lymphocyte, Absolute 1.6 103/mcL Normal 0.8 - 3 .9 10^3/mcL AO Workflow SS Lymphocytes/100 WBC (Bld) 25.1 % Normal 10.0 - 50.0 % AO Workflow SS Magnesium [Mass/Vol] 2.2 mg/dL Normal 1.8 - 2 .4 mg/dL AO ADM SS MCH (RBC) [Entitic mass] 31.2 pg Normal 27.0 - 31.2 pg AO Workflow SS MCHC 34.8 G/dL Normal 31.8 - 35.4 G/dL AO Workflow SS MCV (RBC) [Entitic vol] 89.5 fL Normal 80.0 - 94.0 fL AO Workflow SS Monocyte, Absolute 0.6 103/mcL Normal 0.2 - 1.0 10^3/mcL AO Workflow SS Monocytes/100 WBC (Bld) 8.9 % Normal 1.7 - 13.0 % AO Workflow SS Neutrophil, Absolute 3.7 103/mcL Normal 2.9 - 6 .2 10^3/mcL AO Workflow SS Neutrophils/100 WBC (Bld) 57.9 % Normal 37.0 - 80.0 % AO Workflow SS Platelet mean volume (Bld) [Entitic vol] 6.8 fL Low 7.4 - 10.4 fL AO Workflow SS Platelets (Bld) [#/Vol] 427 103/mcL High 130 - 400 10^3/mcL AO Workflow SS Potassium [Moles/Vol] 4.8 mmol/L Normal 3.5 - 5.1 mmol/L AO ADM SS Prostate specific Ag [Mass/Vol] 1.79 ng/mL Normal 0.00 - 4.00 ng/mL AO ADM SS Protein [Mass/Vol] 7.3 G/dL Normal 6.4 - 8.2 G/dL AO ADM SS RBC (Bld) [#/Vol] 4.14 106/mcL Normal 4.04 - 6.13 10^6/mcL AO Workflow SS Sodium [Moles/Vol] 140 mmol/L Normal 136 - 145 mmol/L AO ADM SS Urea nitrogen [Mass/Vol] 16 mg/dL Normal 7 - 18 mg/dL AO ADM SS Urea nitrogen/Creatinine [Mass ratio] 16 ratio Normal 7 - 27 ratio AO ADM SS WBC (Bld) [#/Vol] 6.3 103/mcL Normal 4.6 - 10.8 10^3/mcL AO Workflow SS LABORATORYOrdered By: Brynn Urban on 12-07-2023 Cholesterol [Mass/Vol] 122 mg/dL Normal 0 - 2 00 mg/dL AO ADM SS Comment on above: Interpretive Data: C holesterol Reference Interval: Less than 200 Desirable 200-239 Borderline high risk 240 and above High risk Cholesterol in HDL [Mass/Vol] 37 mg/dL Low 40 - 60 mg/dL AO ADM SS Cholesterol in LDL [Mass/Vol] 67 mg/dL Normal 0 - 130 mg/dL AO ADM SS Triglyceride [Mass/Vol] 92 mg/dL Normal 0 - 150 mg/dL AO ADM SS Comment on above: Interpretive Data: T riglyceride Reference Interval: Less than 150 Normal 150-199 Borderline high risk 200-499 High risk 500 or higher Very high risk LABORATORYOrdered By: Haritha Neal on 12-07-2023 HCV Ab IA Ql Non-Reactive (12/07/23 10:39 AM) Normal Non-Reacti ve ADM SS HCV Ab IA Ql Nonreactive: Samples with a value < 0.80 are considered nonreactive (negative) for antibodies to HCV.A negative test result does not exclude the possibility of exposure to or infection with HCV. HCV antibodies may be undetectable in some stages of the infection and in some clinical conditions. Invalid Interpretation Code Chemistry S LIPIDon 12-07-2023 Cholesterol [Mass/Vol] 122 mg/dL Normal 0-200 [facility] ([place]) Comment on above: Result Comment: Chol esterol Reference Interval: Less than 200 Desirable 200-239 Borderline high risk 240 and above High risk Performed By: #### M G, CBC, FES, VIDH, ADIFF, CMP, LIPID, GFR, ANEU, PSA, FERR #### [address] [address] #### HCV1, VARIS, MUMP, RUBEO, RUBIS #### [address] [address] Cholesterol in HDL [Mass/Vol] 37 mg/dL Low 40-60 [facility] ([place]) Comment on above: Performed By: #### M G, CBC, FES, VIDH, ADIFF, CMP, LIPID, GFR, ANEU, PSA, FERR #### [address] [address] #### HCV1, VARIS, MUMP, RUBEO, RUBIS #### [address] [address] Cholesterol in LDL [Mass/Vol] 67 mg/dL Normal 0-130 [facility] ([place]) Comment on above: Performed By: #### M G, CBC, FES, VIDH, ADIFF, CMP, LIPID, GFR, ANEU, PSA, FERR #### [address] [address] #### HCV1, VARIS, MUMP, RUBEO, RUBIS #### [address] [address] Triglyceride [Mass/Vol] 92 mg/dL Normal 0-150 [facility] ([place]) Comment on above: Result Comment: Trig lyceride Reference Interval: Less than 150 Normal 150-199 Borderline high risk 200-499 High risk 500 or higher Very high risk Performed By: #### M G, CBC, FES, VIDH, ADIFF, CMP, LIPID, GFR, ANEU, PSA, FERR #### [place] [address] #### HCV1, VARIS, MUMP, RUBEO, RUBIS #### [place] [address] MGon 12-07-2023 Magnesium [Mass/Vol] 2.2 mg/dL Normal 1.8-2.4 [facility] ([place]) Comment on above: Performed By: #### M G, CBC, FES, VIDH, ADIFF, CMP, LIPID, GFR, ANEU, PSA, FERR #### [place] [address] #### HCV1, VARIS, MUMP, RUBEO, RUBIS #### [place] [id number] PSAon 12-07-2023 Prostate Specific Antigen 1.79 ng/mL Normal 0.00-4.00 [facility] ([place]) Comment on above: Performed By: #### M G, CBC, FES, VIDH, ADIFF, CMP, LIPID, GFR, ANEU, PSA, FERR #### [place] [address] #### HCV1, VARIS, MUMP, RUBEO, RUBIS #### [address] [address] VIDHon 12-07-2023 Vit. D 25-Hydroxy 34.6 ng/mL Normal [facility] ([place]) Comment on above: Result Comment: Inte rpretive Values Based on Total 25(OH) Vitamin D: Deficient <20 ng/mL Insufficient 20 - <30 ng/mL Sufficient 30-100 ng/mL Performed By: #### M G, CBC, FES, VIDH, ADIFF, CMP, LIPID, GFR, ANEU, PSA, FERR #### [facility] [address] [place], [place] [address] #### HCV1, VARIS, MUMP, RUBEO, RUBIS #### [address] [address] Olga 11-19-2023 CNPN Telephone (PAIMER) ----- WINSTON MARI ([id number]) 1955 M Date Time Provider Department 11/19/23 HAMILTON AGARWAL During your visit today, we recorded the following information about you: Monica Gross RN 11/19/2023 1:48 PM Signed Call received from Dr Mayen directly. He wanted to discuss pts POC. He wanted to know if Dr Agarwal was planning to take over writing for pts gabapentin 300 mg QID and Oxycodone 10 mg QIDPRN. I discuss HOWARD from 08/22/23. Dr Mayen noted that this was one of the reasons for referring to PM was to take over prescribing these medications. Dr Mayen's direct number is [phone]- if you could possibly call and speak with him directly per his request. Monica Gross RN November 19, 2023 1:47 PM Hamilton Agarwal MD 11/19/2023 5:10 PM Signed I did call Dr. Mayen and explained to him that due to the fact that I have inherited several 100s of patients on chronic narcotics from my partner who left to go to [place], I cannot take on any additional new patients with chronic narcotics. He thanked me for my call back and he indicated that he likely will find somewhere else for the patient to go to receive chronic narcotics. Allergies As of Date: 11/19/2023 Noted Allergy Reaction ADHESIVE TAPE-SILICONES 02/12/2023 9 - Itching HYDROCODONE-ACETAMINOPHEN 05/28/2017 2 - Rash NAPROXEN 05/28/2017 2 - Rash ULTRAM (TRAMADOL HCL) 07/23/2015 8 - GI Upset Date Reviewed: 08/22/2023 Reviewed by: Paulina Vergara MA - Fully Assessed Reason for Visit: Call from Dr Mayen [Other] Prescriptions as of 11/20/2023 - acetaminophen (TYLENOL) 500 mg tablet TAKE 2 TAB(S) EVERY 8 HOURS FOR 30 DAY(S) - oxyCODONE IR (ROXICODONE) 10 mg tab - GAVILYTE-G 236-22.74-6.74 -5.86 gram suspension - ferrous sulfate 325 mg (65 mg iron) tablet Take 1 tablet by mouth every 12 hours. - albuterol HFA (PROVENTIL HFA, VENTOLIN HFA) 90 mcg/actuation inhaler INHALE 2 PUFFS EVERY 4 HOURS - STIOLTO RESPIMAT 2.5-2.5 mcg/actuation INHALE 2 PUFFS DAILY - SENNA 8.6 mg tab TAKE 2 TAB(S) ORAL EVERY DAY AT BEDTIME NEEDED FOR CONSTIPATION - atorvastatin (LIPITOR) 40 mg tablet Take 40 mg by mouth daily at bedtime. - cholecalciferol (VITAMIN D3) 1,000 unit tab tablet Take 1 tablet by mouth once daily. - Walker misc 1 Units once daily. Wheeled walker - docusate sodium (COLACE) 100 mg capsule TAKE 1 CAPSULE BY MOUTH TWICE A DAY FOR 30 DAYS NEEDED FOR CONSTIPATION - hydrocortisone (HEMORRHOIDAL HC) 25 mg suppository Hydrocortisone Acetate (Anusol-Hc) 25 mg suppository Active 25 MG RC AT BEDTIME April 26, 2022 11:00pm - omeprazole (PRILOSEC) 40 mg capsule Take 40 mg by mouth once daily. - DULoxetine (CYMBALTA) 30 mg capsule TAKE 1 CAPSULE BY MOUTH TWICE A DAY FOR 90 DAYS - DOSE INCREASE - DO NOT CRUSH OR CHEW - polyethylene glycol 3350 (MIRALAX, GLYCOLAX) 17 gram/dose powder 17 GRAMS BY MOUTH TWICE DAILY FOR 90 DAYS - tamsulosin (FLOMAX) 0.4 mg Take 0.4 mg by mouth once daily. - gabapentin (NEURONTIN) 300 mg capsule Take 1 capsule by mouth four times daily for 30 days. - cyclobenzaprine (FLEXERIL) 10 mg tablet Take 1 tablet by mouth every 8 hours as needed for Muscle Spasm (or pain). Problem List As Of Date 11/19/2023 Noted Resolved Mechanical low back pain [M54.59] 09/02/2015 Myofascial pain syndrome [M79.18] 09/02/2015 Chronic back pain greater than 3 months duratio*11/29/2017 DDD (degenerative disc disease), lumbar [M51.36]11/29/2017 Hyperlipidemia [E78.5] 12/04/2017 Fall from roof, initial encounter [W13.2XXA] 02/11/2023 Closed compression fracture of L2 vertebra ([facility]*02/12/2023 Closed compression fracture of L4 vertebra ([facility]*02/12/2023 Encounter Status:Closed by MONICA GROSS on 11/20/23 [facility] CNOVon 08-22-2023 CNOV Office Visit (CHANTEL ) ----- WINSTON MARI ([id number]) 1955 Date Time Provider Department 08/22/23 8:45 AM HAMILTON AGARWAL During your visit today, we recorded the following information about you: Pulse Blood pressure Weight Height 76/minute 142/79 76.7 kg 1.803 m Hamilton Agarwal MD 08/22/2023 8:50 AM Signed Dragon was used to dictate this note and therefore there may be some typographical errors. I attest to the fact that I spent a total of 24 min with the patient to include: Face to face time and non face to face time such as: Reviewing test's, reviewing medical records, reviewing imaging studies, ordering tests, etc. The patient is being referred to us by Dr. Almonte for ongoing pain issues. Patient has a history of falling off a roof January 2023 and sustaining L2 and L4 fractures. Notes from the neurosurgeon indicates patient failed conservative management and I recommended a kyphoplasty at L2 and L4 this is per his note of 05/10/2023. Patient comes accompanied with lumbar MRI dated 04/30/2023. This indicates persistent edema at L2 and L4 associated mild compression fractures at the levels. There is a phone note dated 05/23/2023 that indicates patient wanted to think about kyphoplasty and did not necessarily want this done. PE: Alert and oriented no acute distress. Mood and affect within normal limits. Vital signs indicated. Gait is slow deliberate antalgic gait favoring his left leg pain more than the right. Some pain with lumbar extension and flexion. Tenderness palpation overlying the lumbar paraspinous muscles. Dx: Status post fall, L2 and L4 vertebral compression fractures, persistent edema associated with mild compression fractures at L2 and L4, low back pain, neuropathic pain. Plan: OARRS checked. This indicates patient is on gabapentin 300 mg 4 times a day and oxycodone 10 mg 4 times a day from Dr. Mayen in [place]. As above, note from Dr. Almonte indicates that he was planning on performing kyphoplasty at L2 and L4 per his note of 05/10/2023. This due to the fact the patient had persistent edema at these levels status post fall off of a roof. There is a phone note dated 05/23/2023 and indicated the patient want to think about kyphoplasty and did not necessarily want this done. Had injections in the remote past in at a pain center in [place]. Patient indicates he decided against kyphoplasty. He is not following up with neurosurgery. Patient absolutely does not want any spinal injections again. He has agreed to try a TENS unit. There is a new TENS unit technology from a company called [employer]. This was prescribed for him. Gave him the phone number that way if he is not contacted within the next week, he has a phone number to call. He will follow-up with us on a as needed basis. We could consider IV lidocaine infusions in the future. Patient agrees to the above. Allergies As of Date: 08/22/2023 Noted Allergy Reaction ADHESIVE TAPE-SILICONES 02/12/2023 9 - Itching HYDROCODONE-ACETAMINOPHEN 05/28/2017 2 - Rash NAPROXEN 05/28/2017 2 - Rash ULTRAM (TRAMADOL HCL) 07/23/2015 8 - GI Upset Date Reviewed: 08/22/2023 Reviewed by: Tal Brown, Paulina C, MA - Fully Assessed Reason for Visit: New Patient Evaluation [154] Primary Visit Diagnosis:Chronic pain syndrome [G89.4] Prescriptions as of 08/22/2023 - acetaminophen (TYLENOL) 500 mg tablet TAKE 2 TAB(S) EVERY 8 HOURS FOR 30 DAY(S) - oxyCODONE IR (ROXICODONE) 10 mg tab - GAVILYTE-G 236-22.74-6.74 -5.86 gram suspension - ferrous sulfate 325 mg (65 mg iron) tablet Take 1 tablet by mouth every 12 hours. - albuterol HFA (PROVENTIL HFA, VENTOLIN HFA) 90 mcg/actuation inhaler INHALE 2 PUFFS EVERY 4 HOURS - STIOLTO RESPIMAT 2.5-2.5 mcg/actuation INHALE 2 PUFFS DAILY - SENNA 8.6 mg tab TAKE 2 TAB(S) ORAL EVERY DAY AT BEDTIME NEEDED FOR CONSTIPATION - atorvastatin (LIPITOR) 40 mg tablet Take 40 mg by mouth daily at bedtime. - cholecalciferol (VITAMIN D3) 1,000 unit tab tablet Take 1 tablet by mouth once daily. - Walker misc 1 Units once daily. Wheeled walker - docusate sodium (COLACE) 100 mg capsule TAKE 1 CAPSULE BY MOUTH TWICE A DAY FOR 30 DAYS NEEDED FOR CONSTIPATION - hydrocortisone (HEMORRHOIDAL HC) 25 mg suppository Hydrocortisone Acetate (Anusol-Hc) 25 mg suppository Active 25 MG RC AT BEDTIME April 26, 2022 11:00pm - omeprazole (PRILOSEC) 40 mg capsule Take 40 mg by mouth once daily. - DULoxetine (CYMBALTA) 30 mg capsule TAKE 1 CAPSULE BY MOUTH TWICE A DAY FOR 90 DAYS - DOSE INCREASE - DO NOT CRUSH OR CHEW - polyethylene glycol 3350 (MIRALAX, GLYCOLAX) 17 gram/dose powder 17 GRAMS BY MOUTH TWICE DAILY FOR 90 DAYS - tamsulosin (FLOMAX) 0.4 mg Take 0.4 mg by mouth once daily. - gabapentin (NEURONTIN) 300 mg capsule Take 1 capsule by mouth four times daily for 30 days. (more content not included)... Normal [facility] CT THORAX W/O CONTRASTon CT THORAX W/O CONTRAST ORIGINAL EXAMINATION: CT OF THE CHEST WITHOUT CONTRAST 08/10/2023 11:37 am TECHNIQUE: CT of the chest was performed without the administration of intravenous contrast. Multiplanar reformatted images are provided for review. Automated exposure control, iterative reconstruction, and/or weight based adjustment of the mA/kV was utilized to reduce the radiation dose to as low as reasonably achievable. Note: This exam is performed as a low-dose screening protocol, but technologist note indicates that the patient did not meet screening criteria, and the study was changed to CT chest without contrast, diagnostic, due to patient shortness of breath. Please note that the low-dose protocol results in image noise and streak artifact that would not otherwise be present on a diagnostic noncontrast CT chest. COMPARISON: None. HISTORY: ORDERING SYSTEM PROVIDED HISTORY: Reason for Exam: Shortness of breath. FINDINGS: Minor degenerative changes are noted in the spine. No acute osseous abnormality identified. Scattered emphysematous airspaces are present, upper lobe predominant. There are small scattered areas of pulmonary and pleural scarring present as well. A right lower lobe lobulated nodule is present measuring 8 mm in size. Additionally, at the lateral aspect of the left lower lobe, there is a 4 mm pulmonary nodule. Calcified granuloma is evident within the lingula. No confluent consolidation is identified. No pleural fluid is visible. There is a borderline, 10-11 mm, left supraclavicular lymph node present. This is of uncertain significance. No mediastinal adenopathy is definitely evident within the constraints of a noncontrast exam. Coronary calcification is visible. No additional contributory abnormality identified. IMPRESSION: 1. No acute finding. 2. Bilateral lower lobe pulmonary nodules measuring up to 8 mm in size. See formal recommendations below. 3. Borderline left supraclavicular lymph node, of uncertain significance. Clinical assessment and follow-up needed. RECOMMENDATIONS: 2017 Fleischner Society Recommendations for Multiple Solid Lung Nodules Follow-Up base on size (average of long- and short-axis diameters). Use most suspicious nodule for followup. Nodule Size 6-8 mm Low-Risk Patient: CT at 3-[address] at 18-24 months Nodule Size 6-8 mm High-Risk Patient: CT at 3-6 months then at 18-24 months Interpreted by: Eugenio Rendon MD Preliminary Report By: Eugenio Rendon MD Electronically signed By Eugenio Rendon MD Dictated Date: 08/14/2023 8:20:16 AM Prelim Date: 08/14/2023 8:37:49 AM Sign Date: 08/14/2023 8:37:49 AM Ordering Provider: EUGENIO Vickers [facility] ([place]) Olga 05-23-[address] [facility] Telephone (NEAGCLM) ----- PRATIKWINSTON Paul ([id number]) 1955 M Date Time Provider Department 05/23/23 PRO ALMONTE During your visit today, we recorded the following information about you: Donna Phillip RN 05/23/2023 11:01 AM Signed Called patient to follow up if he was interested in surgery. At his last visit, kyphoplasty had been discussed but patient expressed that he wanted to think about surgery before making a decision. Patient stated he still had not made a decision and thought he would need at least another month to think about it. I told him Dr. Almonte was about to go on a short leave for a few weeks and wanted to make sure I checked so we could get him scheduled before he was gone. Patient verbalized understanding and stated he would reach out to our office in about a month if he decided to proceed with surgery. Allergies As of Date: 05/23/2023 Noted Allergy Reaction ADHESIVE TAPE-SILICONES 02/12/2023 9 - Itching HYDROCODONE-ACETAMINOPHEN 05/28/2017 2 - Rash NAPROXEN 05/28/2017 2 - Rash ULTRAM (TRAMADOL HCL) 07/23/2015 8 - GI Upset Date Reviewed: 05/10/2023 Reviewed by: Donna Phillip, RN - Fully Assessed Reason for Visit: Patient Question [2341] Prescriptions as of 05/23/2023 - cholecalciferol (VITAMIN D3) 1,000 unit tab tablet Take 1 tablet by mouth once daily. - Walker misc 1 Units once daily. Wheeled walker - docusate sodium (COLACE) 100 mg capsule TAKE 1 CAPSULE BY MOUTH TWICE A DAY FOR 30 DAYS NEEDED FOR CONSTIPATION - hydrocortisone (HEMORRHOIDAL HC) 25 mg suppository Hydrocortisone Acetate (Anusol-Hc) 25 mg suppository Active 25 MG RC AT BEDTIME April 26, 2022 11:00pm - omeprazole (PRILOSEC) 40 mg capsule Take 40 mg by mouth once daily. - DULoxetine (CYMBALTA) 30 mg capsule TAKE 1 CAPSULE BY MOUTH TWICE A DAY FOR 90 DAYS - DOSE INCREASE - DO NOT CRUSH OR CHEW - polyethylene glycol 3350 (MIRALAX, GLYCOLAX) 17 gram/dose powder 17 GRAMS BY MOUTH TWICE DAILY FOR 90 DAYS - tamsulosin (FLOMAX) 0.4 mg Take 0.4 mg by mouth once daily. - gabapentin (NEURONTIN) 300 mg capsule Take 1 capsule by mouth four times daily for 30 days. - cyclobenzaprine (FLEXERIL) 10 mg tablet Take 1 tablet by mouth every 8 hours as needed for Muscle Spasm (or pain). - atorvastatin (LIPITOR) 10 mg tablet Take 1 tablet by mouth once daily. BEFORE BEDTIME Problem List As Of Date 05/23/2023 Noted Resolved Mechanical low back pain [M54.59] 09/02/2015 Myofascial pain syndrome [M79.18] 09/02/2015 Chronic back pain greater than 3 months duratio*11/29/2017 DDD (degenerative disc disease), lumbar [M51.36]11/29/2017 Hyperlipidemia [E78.5] 12/04/2017 Fall from roof, initial encounter [W13.2XXA] 02/11/2023 Closed compression fracture of L2 vertebra ([facility]*02/12/2023 Closed compression fracture of L4 vertebra ([facility]*02/12/2023 Encounter Status:Closed by DONNA PHILLIP on 05/23/23 [facility] Olga 05-15-2023 ANNEN Telephone (NEAGCLM) ----- WINSTON MARI ([id number]) 1955 M Date Time Provider Department 05/15/23 PRO ALMONTE NEAGCLM During your visit today, we recorded the following information about you: Rani Mart 05/15/2023 10:32 AM Signed Patient consented to surgery with Dr. Almonte on May 10, 2023. Patient wanted to speak with his brother about coordinating care before picking date for surgery. Called patient today to see if that conversation had been discussed. Left patient a VM to call office. 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 - Walker misc 1 Units once daily. Wheeled walker - docusate sodium (COLACE) 100 mg capsule TAKE 1 CAPSULE BY MOUTH TWICE A DAY FOR 30 DAYS NEEDED FOR CONSTIPATION - hydrocortisone (HEMORRHOIDAL HC) 25 mg suppository Hydrocortisone Acetate (Anusol-Hc) 25 mg suppository Active 25 MG RC AT BEDTIME April 26, 2022 11:00pm - omeprazole (PRILOSEC) 40 mg capsule Take 40 mg by mouth once daily. - DULoxetine (CYMBALTA) 30 mg capsule TAKE 1 CAPSULE BY MOUTH TWICE A DAY FOR 90 DAYS - DOSE INCREASE - DO NOT CRUSH OR CHEW - polyethylene glycol 3350 (MIRALAX, GLYCOLAX) 17 gram/dose powder 17 GRAMS BY MOUTH TWICE DAILY FOR 90 DAYS - tamsulosin (FLOMAX) 0.4 mg Take 0.4 mg by mouth once daily. - gabapentin (NEURONTIN) 300 mg capsule Take 1 capsule by mouth four times daily for 30 days. - cyclobenzaprine (FLEXERIL) 10 mg tablet Take 1 tablet by mouth every 8 hours as needed for Muscle Spasm (or pain). - atorvastatin (LIPITOR) 10 mg tablet Take 1 tablet by mouth once daily. BEFORE BEDTIME Problem List As Of Date 05/15/2023 Noted Resolved Mechanical low back pain [M54.59] 09/02/2015 Myofascial pain syndrome [M79.18] 09/02/2015 Chronic back pain greater than 3 months duratio*11/29/2017 DDD (degenerative disc disease), lumbar [M51.36]11/29/2017 Hyperlipidemia [E78.5] 12/04/2017 Fall from roof, initial encounter [W13.2XXA] 02/11/2023 Closed compression fracture of L2 vertebra ([facility]*02/12/2023 Closed compression fracture of L4 vertebra ([facility]*02/12/2023 Encounter Status:Closed by RANI MART on 05/15/23 [facility] CNOVon 05-10-2023 CNOV Office Visit (NSAGAP ) ----- WINSTON MARI ([id number]) 1955 M Date Time Provider Department 05/10/23 11:00 AM PRO ALMONTE During your visit today, we recorded the following information about you: Temperature Pulse Respiration Blood pressure 98 degrees 69/minute 18/minute 109/73 Weight Height 66.7 kg 1.803 m Pro Almonte MD 05/10/2023 11:35 AM Addendum NEUROSURGERY FOLLOW UP OFFICE NOTE Pro Almonte MD Date of visit: May 10, 2023 Patient Name: Mr.Johnnie Paul Mari Date of : 1955 Current Age: [age] year old Sex: male MRN/E# [id number] Last Office Visit: 03/29/2023 Chief Complaint: Patient presents with: lumbar fracture follow up HISTORY OF PRESENT ILLNESS : Winston Mari is a 68 year old male with a past medical history of arthritis, epilepsy, high cholesterol, and sciatica. He is a former smoker. The patient presented to [facility] on 02/11/2023 as a transfer from [facility] after falling off a roof. Imaging revealed evidence of L2 and L4 fractures. Neurosurgery was consulted and recommended conservative management of his fractures with a TLSO brace. He was asked to wear this when up and out of bed. He was asked to follow up outpatient with lumbar x-rays in 6 weeks. He presented to the office on 03/29/2023 and complained of low back pain since being discharged. He rated his pain 8/10. His pain radiated to his left hip and down the lateral and anterior aspect of his left thigh into his left knee. He reported that at times his left foot would go numb. Denied issues with balance, falls, incontinence, or weakness. He had been compliant with his TLSO brace. He took Gabapentin and Flexeril for pain. Overall, his biggest complaint was of his low back pain. It was recommended that the patient follow up in 6 weeks with lumbar MRI. He was advised to wear his brace for comfort. It was discussed with the patient that if he did not have any acute pathology on his imaging to be the cause of his radicular pain, a kyphoplasty may be considered. He presents today with x-ray and MRI imaging. He states that he continues with severe low back pain that radiates to his left hip and travels to his left lateral and anterior thigh and knee. He reports numbness and tingling in his entire left foot that has improved since his last visit with the use of Gabapentin 300 mg TID. He wears his TLSO brace with increased activity. Denies any issues with balance, falls, or incontinence. His biggest complaint is his low back pain. He presents today for image review, evaluation, and plan of care. Symptoms: low back pain, LLE pain DERMATOMAL DISTRIBUTION: Not applicable PREVIOUS CONSERVATIVE TREATMENTS: TLSO brace Gabapentin Flexeril PREVIOUS SURGERY: no previous spine surgeries Surgical Risk Factors: Smoking Status: former- quit in 1998 Diabetic: denies Antiplatelet/anticoagulan t: no Alcohol: none since 1986 BMI: 20.5 PAIN EVALUATION 05/10/2023 1117 Pain Level: 9 Pain Location: Back-Lower Description: Sharp Duration Units: Months Frequency: Continuous Intervention/Comfort measure: Relaxation;Reposition;Emo tional Support/Reassurance PAST MEDICAL HISTORY Diagnosis Date Arthritis Epilepsy (HCC) High cholesterol Sciatica PAST SURGICAL HISTORY Procedure Laterality Date ARTHROSCOPY, HIP: W/LABRAL REPAIR Left 1974 BRAIN SURGERY HX OTHER ANEURYSM REPAIR 1983 [facility]- Dr. Simpson- Brain Aneurysm FAMILY HISTORY Problem Relation Age of Onset Cancer Mother Cancer Father Ischemic Heart Disease Brother ALLERGIES Allergen Reactions Adhesive Tape-Silic* Itching Hydrocodone-Acetami* Rash Naproxen Rash Ultram [Tramadol Hc* GI Upset Current Outpatient Medications Medication Sig Dispense Refill cholecalciferol (VITAMIN D3) 1,000 unit tab tablet Take 1 tablet by mouth once daily. Walker misc 1 Units once daily. Wheeled walker 1 Each 0 docusate sodium (COLACE) 100 mg capsule TAKE 1 CAPSULE BY MOUTH TWICE A DAY FOR 30 DAYS NEEDED FOR CONSTIPATION hydrocortisone (HEMORRHOIDAL HC) 25 mg suppository Hydrocortisone Acetate (Anusol-Hc) 25 mg suppository Active 25 MG RC AT BEDTIME April 26, 2022 11:00pm omeprazole (PRILOSEC) 40 mg capsule Take 40 mg by mouth once daily. DULoxetine (CYMBALTA) 30 mg capsule TAKE 1 CAPSULE BY MOUTH TWICE A DAY FOR 90 DAYS - DOSE INCREASE - DO NOT CRUSH OR CHEW polyethylene glycol 3350 (MIRALAX, GLYCOLAX) 17 gram/dose powder 17 GRAMS BY MOUTH TWICE DAILY FOR 90 DAYS tamsulosin (FLOMAX) 0.4 mg Take 0.4 mg by mouth once daily. gabapentin (NEURONTIN) 300 mg capsule Take 1 capsule by mouth four times daily for 30 days. 120 capsule 11 cyclobenzaprine (FLEXERIL) 10 mg tablet Take 1 tablet by mouth every 8 hours as needed for Muscle Spasm (or pain). 14 tablet 0 atorvastatin (LIPITOR) 10 mg tablet Take 1 tablet by m (more content not included)... Normal [facility] Erasmo 04-30-2023 [facility] Letter Text Normal [facility] Olga 04-30-2023 EVIE Telephone (PNAUDIE) ----- WINSTON MARI ([id number]) 1955 M Date Time Provider Department 04/30/23 KADEEM LEVI During your visit today, we recorded the following information about you: Irene Paulalori MARIBELL 04/30/2023 1:33 PM Signed At appointment time, 1:30p, pt was not checked in. Went to lobby/waiting room and hallway to call for pt. Pt was not in either location. Allergies As of Date: 04/30/2023 Noted Allergy Reaction ADHESIVE TAPE-SILICONES 02/12/2023 9 - Itching HYDROCODONE-ACETAMINOPHEN 05/28/2017 2 - Rash NAPROXEN 05/28/2017 2 - Rash ULTRAM (TRAMADOL HCL) 07/23/2015 8 - GI Upset Date Reviewed: 03/29/2023 Reviewed by: Donna Phillip RN - Fully Assessed Reason for Visit: Appointment [186] Prescriptions as of 04/30/2023 - cholecalciferol (VITAMIN D3) 1,000 unit tab tablet Take 1 tablet by mouth once daily. - Walker misc 1 Units once daily. Wheellinda walker - docusate sodium (COLACE) 100 mg capsule TAKE 1 CAPSULE BY MOUTH TWICE A DAY FOR 30 DAYS NEEDED FOR CONSTIPATION - hydrocortisone (HEMORRHOIDAL HC) 25 mg suppository Hydrocortisone Acetate (Anusol-Hc) 25 mg suppository Active 25 MG RC AT BEDTIME April 26, 2022 11:00pm - omeprazole (PRILOSEC) 40 mg capsule Take 40 mg by mouth once daily. - DULoxetine (CYMBALTA) 30 mg capsule TAKE 1 CAPSULE BY MOUTH TWICE A DAY FOR 90 DAYS - DOSE INCREASE - DO NOT CRUSH OR CHEW - polyethylene glycol 3350 (MIRALAX, GLYCOLAX) 17 gram/dose powder 17 GRAMS BY MOUTH TWICE DAILY FOR 90 DAYS - tamsulosin (FLOMAX) 0.4 mg Take 0.4 mg by mouth once daily. - gabapentin (NEURONTIN) 300 mg capsule Take 1 capsule by mouth four times daily for 30 days. - cyclobenzaprine (FLEXERIL) 10 mg tablet Take 1 tablet by mouth every 8 hours as needed for Muscle Spasm (or pain). - atorvastatin (LIPITOR) 10 mg tablet Take 1 tablet by mouth once daily. BEFORE BEDTIME Problem List As Of Date 04/30/2023 Noted Resolved Mechanical low back pain [M54.59] 09/02/2015 Myofascial pain syndrome [M79.18] 09/02/2015 Chronic back pain greater than 3 months duratio*11/29/2017 DDD (degenerative disc disease), lumbar [M51.36]11/29/2017 Hyperlipidemia [E78.5] 12/04/2017 Fall from roof, initial encounter [W13.2XXA] 02/11/2023 Closed compression fracture of L2 vertebra (HCC*02/12/2023 Closed compression fracture of L4 vertebra (HCC*02/12/2023 Encounter Status:Closed by IRENE QUINTERO MA on 04/30/23 Normal [facility] MRI LUMBAR SPINE WO IVCONon 04-30-2023 MRI LUMBAR SPINE WO IVCON * * *Final Report* * * DATE OF EXAM: Apr 30 2023 1:27PM WR [id number] - MRI LUMBAR SPINE WO IVCON / PROCEDURE REASON: Other fracture of unspecified lumbar vertebra, initial encounter for closed frac * * * * Physician Interpretation * * * * EXAMINATION: MRI LUMBAR SPINE WO IVCON CLINICAL HISTORY: Other fracture of unspecified lumbar vertebra, initial encounter for closed fracture (HCC) TECHNIQUE: Routine lumbosacral spine MR protocol without gadolinium. MQ: [id number] COMPARISON: 02/12/2023 RESULT: Counting reference: Lumbosacral junction. For the purposes of this report, L4-5 is considered the level of the iliac crest and assume there are 5 lumbar-type vertebrae. Anatomic variant: None. Localizer images: Renal cysts visible on digital archivist images. Alignment: Alignment is anatomic. Bone marrow signal/fracture: Edema in the superior aspect of L2 and L4 vertebral bodies and mild associated wedge-shaped compression deformities overall similar to what was seen on the prior study. No further vertebral body height loss. Inversion recovery edema similar to the prior study. In L4, T1-weighted edema slightly decreased in conspicuity. Slight broadening of an associated Schmorl's node in the superior endplate of L2. No further vertebral body height loss or new compression fracture since the prior study. No other abnormal marrow signal. Conus: The conus is within normal limits of signal intensity and morphology. Paraspinal soft tissues: Paraspinal soft tissues are within normal limits. Lower thoracic spine: Visualized lower thoracic canal and foramina are patent. L1-S1: Relatively mild spondylosis otherwise with facet hypertrophy and disc height loss at multiple levels resulting in mild to moderate foraminal narrowing throughout the lower lumbar spine otherwise unchanged from the prior study. Sacrum and iliac wings: The visualized sacrum and iliac wings are within normal limits. IMPRESSION: Minimal change in the appearance of the lumbar spine since 02/12/2023. Persistent L2 and L4 edema associated with mild compression fractures at these levels. Slightly increased conspicuity of a Schmorl's node associated with the L2 compression fracture. Mild lumbar spondylosis. Anatomic Lumbar Variant: None. L4-5 is considered the level of the iliac crest and assume there are 5 lumbar-type vertebrae. 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: PSCB Transcribe Date/Time: Apr 30 2023 1:55P Dictated by : TIMUR FIGUEROA MD This examination was interpreted and the report reviewed and electronically signed by: TIMUR FIGUEROA MD on Apr 30 2023 1:59PM EST [id number] Normal [facility] ----- WINSTON MARI ([id number]) 1955 M Date Time Provider Department 04/26/23 [facility] PROVIDER PARVEZ During your visit today, we recorded the following information about you: Ena Beard Ma 04/26/2023 1:02 PM Signed Attempted to contact patient via telephone regarding upcoming NEW patient appointment with Dr. Levi on 04/30/23. [facility] relaying the message below: This is the [facility] calling regarding your upcoming appointment with Dr. Levi. To avoid a delay in your care, please bring any imaging (such as MRI, CT, XR, etc.) that have been done outside of the [facility] Systems on a disk to be viewed at your appointment. Please be advised that this appointment is a consult only and narcotics will NOT be prescribed. Dr. Levi is an interventional pain management provider specializing in the spine only. He treats with physical therapy, injections of the spine or joints, and non-narcotic medications. Dr. Levi will not take over and manage any medications that are already being prescribed by another provider. Dr. Levi does not fill out for anything related to disability. If you have any questions or need to cancel or reschedule your appointment, please contact the [facility] at [phone]. Allergies As of Date: 04/26/2023 Noted Allergy Reaction ADHESIVE TAPE-SILICONES 02/12/2023 9 - Itching HYDROCODONE-ACETAMINOPHEN 05/28/2017 2 - Rash NAPROXEN 05/28/2017 2 - Rash ULTRAM (TRAMADOL HCL) 07/23/2015 8 - GI Upset Date Reviewed: 03/29/2023 Reviewed by: Donna Phillip RN - Fully Assessed Reason for Visit: Future Appointment [256] Cmt: Left Voice Mail Prescriptions as of 04/26/2023 - cholecalciferol (VITAMIN D3) 1,000 unit tab tablet Take 1 tablet by mouth once daily. - Walker misc 1 Units once daily. Wheeled walker - docusate sodium (COLACE) 100 mg capsule TAKE 1 CAPSULE BY MOUTH TWICE A DAY FOR 30 DAYS NEEDED FOR CONSTIPATION - hydrocortisone (HEMORRHOIDAL HC) 25 mg suppository Hydrocortisone Acetate (Anusol-Hc) 25 mg suppository Active 25 MG RC AT BEDTIME April 26, 2022 11:00pm - omeprazole (PRILOSEC) 40 mg capsule Take 40 mg by mouth once daily. - DULoxetine (CYMBALTA) 30 mg capsule TAKE 1 CAPSULE BY MOUTH TWICE A DAY FOR 90 DAYS - DOSE INCREASE - DO NOT CRUSH OR CHEW - polyethylene glycol 3350 (MIRALAX, GLYCOLAX) 17 gram/dose powder 17 GRAMS BY MOUTH TWICE DAILY FOR 90 DAYS - tamsulosin (FLOMAX) 0.4 mg Take 0.4 mg by mouth once daily. - gabapentin (NEURONTIN) 300 mg capsule Take 1 capsule by mouth four times daily for 30 days. - cyclobenzaprine (FLEXERIL) 10 mg tablet Take 1 tablet by mouth every 8 hours as needed for Muscle Spasm (or pain). - atorvastatin (LIPITOR) 10 mg tablet Take 1 tablet by mouth once daily. BEFORE BEDTIME Problem List As Of Date 04/26/2023 Noted Resolved Mechanical low back pain [M54.59] 09/02/2015 Myofascial pain syndrome [M79.18] 09/02/2015 Chronic back pain greater than 3 months duratio*11/29/2017 DDD (degenerative disc disease), lumbar [M51.36]11/29/2017 Hyperlipidemia [E78.5] 12/04/2017 Fall from roof, initial encounter [W13.2XXA] 02/11/2023 Closed compression fracture of L2 vertebra ([facility]*02/12/2023 Closed compression fracture of L4 vertebra ([facility]*02/12/2023 Encounter Status:Closed by ENA BEARD MA on 04/26/23 [facility] CNOVon 03-29-2023 CNOV Office Visit (NSAGAP ) ----- WINSTON MARI ([id number]) 1955 M Date Time Provider Department 03/29/23 10:00 AM PRO ALMONTE During your visit today, we recorded the following information about you: Temperature Pulse Respiration Blood pressure 98.8 degrees 78/minute 18/minute 120/68 Weight Height 66.2 kg 1.854 m Pro Almonte MD 03/29/2023 10:08 AM Signed NEUROSURGERY FOLLOW UP OFFICE NOTE Pro Almonte MD Date of visit: March 29, 2023 Patient Name: Mr.Johnnie Paul Mari Date of : 1955 Current Age: [age] year old Sex: male MRN/E# [id number] Last Office Visit: Visit date not found Chief Complaint: Patient presents with: Low Back Pain Fracture - Lumbar Vertebra HISTORY OF PRESENT ILLNESS : Winston Mari is a 68 year old male with a past medical history of arthritis, epilepsy, high cholesterol, and sciatica. He is a former smoker. The patient presented to [facility] ED on 02/11/2023 as a transfer from [facility] after falling off a roof. Imaging revealed evidence of L2 and L4 fractures. Neurosurgery was consulted and recommended conservative management of his fractures with a TLSO brace. He was asked to wear this when up and out of bed. He was asked to follow up outpatient with lumbar x-rays in 6 weeks. He presents today with x-ray imaging. He states that he has been having low back pain since being discharged. He rates his pain 8/10. His pain radiates to his left hip and down the lateral and anterior aspect of his left thigh into his left knee. He reports that at times his left foot will go numb. Denies issues with balance, falls, incontinence, or weakness. He has been compliant with his TLSO brace. He takes Gabapentin and Flexeril for pain. Overall, his biggest complaint is of his low back pain. He presents today for image review, evaluation and plan of care. Symptoms: LBP, LLE pain DERMATOMAL DISTRIBUTION: Not applicable PREVIOUS CONSERVATIVE TREATMENTS: TLSO brace Gabapentin Flexeril PREVIOUS SURGERY: no previous spine surgeries Surgical Risk Factors: Smoking Status: former- quit in 1998 Diabetic: denies Antiplatelet/anticoagulan t: no Alcohol: none since 1986 BMI: 20.5 PAIN EVALUATION 03/29/2023 0948 Pain Level: 8 Pain Location: Back-Lower Description: Aching Duration Units: Months PAST MEDICAL HISTORY Diagnosis Date Arthritis Epilepsy (HCC) High cholesterol Sciatica PAST SURGICAL HISTORY Procedure Laterality Date ARTHROSCOPY, HIP: W/LABRAL REPAIR Left 1973 BRAIN SURGERY HX OTHER ANEURYSM REPAIR 1983 [facility]- Dr. Simpson- Brain Aneurysm FAMILY HISTORY Problem Relation Age of Onset Cancer Mother Cancer Father Ischemic Heart Disease Brother ALLERGIES Allergen Reactions Adhesive Tape-Silic* Itching Hydrocodone-Acetami* Rash Naproxen Rash Ultram [Tramadol Hc* GI Upset Current Outpatient Medications Medication Sig Dispense Refill cholecalciferol (VITAMIN D3) 1,000 unit tab tablet Take 1 tablet by mouth once daily. Walker misc 1 Units once daily. Wheeled walker 1 Each 0 docusate sodium (COLACE) 100 mg capsule TAKE 1 CAPSULE BY MOUTH TWICE A DAY FOR 30 DAYS NEEDED FOR CONSTIPATION hydrocortisone (HEMORRHOIDAL HC) 25 mg suppository Hydrocortisone Acetate (Anusol-Hc) 25 mg suppository Active 25 MG RC AT BEDTIME April 26, 2022 11:00pm omeprazole (PRILOSEC) 40 mg capsule Take 40 mg by mouth once daily. DULoxetine (CYMBALTA) 30 mg capsule TAKE 1 CAPSULE BY MOUTH TWICE A DAY FOR 90 DAYS - DOSE INCREASE - DO NOT CRUSH OR CHEW polyethylene glycol 3350 (MIRALAX, GLYCOLAX) 17 gram/dose powder 17 GRAMS BY MOUTH TWICE DAILY FOR 90 DAYS tamsulosin (FLOMAX) 0.4 mg Take 0.4 mg by mouth once daily. gabapentin (NEURONTIN) 300 mg capsule Take 1 capsule by mouth four times daily for 30 days. 120 capsule 11 cyclobenzaprine (FLEXERIL) 10 mg tablet Take 1 tablet by mouth every 8 hours as needed for Muscle Spasm (or pain). 14 tablet 0 atorvastatin (LIPITOR) 10 mg tablet Take 1 tablet by mouth once daily. BEFORE BEDTIME 30 tablet 5 No current facility-administered medications for this visit. REVIEW OF SYSTEMS Review of Systems Constitutional: Negative for chills, diaphoresis and fever. HENT: Negative for sinus pressure, sinus pain and trouble swallowing. Eyes: Negative for pain, redness and visual disturbance. Respiratory: Negative for cough, shortness of breath and wheezing. Cardiovascular: Negative for chest pain, palpitations and leg swelling. Gastrointestinal: Negative for constipation, diarrhea and nausea. Endocrine: Negative for cold intolerance and heat intolerance. Genitourinary: Negative for difficulty urinating, frequency and urgency. Musculoskeletal: Positive for back pain. Negative for gait problem and neck pain. Skin: Negative for color change, pallor and rash. Allergic/Immunologic: Negative f (more content not included)... Normal [facility] WINSTON MARI ([id number]) 1955 M Date Time Provider Department 03/27/23 PRO ALMONTE During your visit today, we recorded the following information about you: Donna Phillip RN 03/27/2023 9:20 AM Signed Attempted to call patient at [phone]. Incorrect number listed in patient chart. Donna Phillip RN Allergies As of Date: 03/27/2023 Noted Allergy Reaction ADHESIVE TAPE-SILICONES 02/12/2023 9 - Itching HYDROCODONE-ACETAMINOPHEN 05/28/2017 2 - Rash NAPROXEN 05/28/2017 2 - Rash ULTRAM (TRAMADOL HCL) 07/23/2015 8 - GI Upset Date Reviewed: 02/20/2023 Reviewed by: Pebbles Corcoran RN - Fully Assessed Reason for Visit: Appointment [186] Prescriptions as of 03/27/2023 - cholecalciferol (VITAMIN D3) 1,000 unit tab tablet Take 1 tablet by mouth once daily. - Walker misc 1 Units once daily. Wheeled walker - docusate sodium (COLACE) 100 mg capsule TAKE 1 CAPSULE BY MOUTH TWICE A DAY FOR 30 DAYS NEEDED FOR CONSTIPATION - hydrocortisone (HEMORRHOIDAL HC) 25 mg suppository Hydrocortisone Acetate (Anusol-Hc) 25 mg suppository Active 25 MG RC AT BEDTIME April 26, 2022 11:00pm - omeprazole (PRILOSEC) 40 mg capsule Take 40 mg by mouth once daily. - DULoxetine (CYMBALTA) 30 mg capsule TAKE 1 CAPSULE BY MOUTH TWICE A DAY FOR 90 DAYS - DOSE INCREASE - DO NOT CRUSH OR CHEW - polyethylene glycol 3350 (MIRALAX, GLYCOLAX) 17 gram/dose powder 17 GRAMS BY MOUTH TWICE DAILY FOR 90 DAYS - tamsulosin (FLOMAX) 0.4 mg Take 0.4 mg by mouth once daily. - gabapentin (NEURONTIN) 300 mg capsule Take 1 capsule by mouth four times daily for 30 days. - cyclobenzaprine (FLEXERIL) 10 mg tablet Take 1 tablet by mouth every 8 hours as needed for Muscle Spasm (or pain). - atorvastatin (LIPITOR) 10 mg tablet Take 1 tablet by mouth once daily. BEFORE BEDTIME Problem List As Of Date 03/27/2023 Noted Resolved Mechanical low back pain [M54.59] 09/02/2015 Myofascial pain syndrome [M79.18] 09/02/2015 Chronic back pain greater than 3 months duratio*11/29/2017 DDD (degenerative disc disease), lumbar [M51.36]11/29/2017 Hyperlipidemia [E78.5] 12/04/2017 Fall from roof, initial encounter [W13.2XXA] 02/11/2023 Closed compression fracture of L2 vertebra (HCC*02/12/2023 Closed compression fracture of L4 vertebra (HCC*02/12/2023 Encounter Status:Closed by DONNA PHILLIP on 03/27/23 [facility] Olga 03-26-2023 CNPN Telephone (NEAGCLM) ----- WINSTON MARI ([id number]) 1955 M Date Time Provider Department 03/26/23 [facility]MONTE [facility] During your visit today, we recorded the following information about you: Donna Phillip RN 03/26/2023 2:52 PM Signed Attempted to reach patient and his brother to notify them that Winston needs x-rays completed before his appointment. Brothers' phone number is disconnected. Number listed for Winston leads to [facility]. Will attempt to contact tomorrow again to see if this could potentially be patient's place of work? Otherwise no other contact info listed for patient. Donna Phillip RN Allergies As of Date: 03/26/2023 Noted Allergy Reaction ADHESIVE TAPE-SILICONES 02/12/2023 9 - Itching HYDROCODONE-ACETAMINOPHEN 05/28/2017 2 - Rash NAPROXEN 05/28/2017 2 - Rash ULTRAM (TRAMADOL HCL) 07/23/2015 8 - GI Upset Date Reviewed: 02/20/2023 Reviewed by: Pebbles Corcoran RN - Fully Assessed Reason for Visit: Orders [681] Prescriptions as of 03/26/2023 - cholecalciferol (VITAMIN D3) 1,000 unit tab tablet Take 1 tablet by mouth once daily. - Walker misc 1 Units once daily. Wheeled walker - docusate sodium (COLACE) 100 mg capsule TAKE 1 CAPSULE BY MOUTH TWICE A DAY FOR 30 DAYS NEEDED FOR CONSTIPATION - hydrocortisone (HEMORRHOIDAL HC) 25 mg suppository Hydrocortisone Acetate (Anusol-Hc) 25 mg suppository Active 25 MG RC AT BEDTIME April 26, 2022 11:00pm - omeprazole (PRILOSEC) 40 mg capsule Take 40 mg by mouth once daily. - DULoxetine (CYMBALTA) 30 mg capsule TAKE 1 CAPSULE BY MOUTH TWICE A DAY FOR 90 DAYS - DOSE INCREASE - DO NOT CRUSH OR CHEW - polyethylene glycol 3350 (MIRALAX, GLYCOLAX) 17 gram/dose powder 17 GRAMS BY MOUTH TWICE DAILY FOR 90 DAYS - tamsulosin (FLOMAX) 0.4 mg Take 0.4 mg by mouth once daily. - gabapentin (NEURONTIN) 300 mg capsule Take 1 capsule by mouth four times daily for 30 days. - cyclobenzaprine (FLEXERIL) 10 mg tablet Take 1 tablet by mouth every 8 hours as needed for Muscle Spasm (or pain). - atorvastatin (LIPITOR) 10 mg tablet Take 1 tablet by mouth once daily. BEFORE BEDTIME Problem List As Of Date 03/26/2023 Noted Resolved Mechanical low back pain [M54.59] 09/02/2015 Myofascial pain syndrome [M79.18] 09/02/2015 Chronic back pain greater than 3 months duratio*11/29/2017 DDD (degenerative disc disease), lumbar [M51.36]11/29/2017 Hyperlipidemia [E78.5] 12/04/2017 Fall from roof, initial encounter [W13.2XXA] 02/11/2023 Closed compression fracture of L2 vertebra ([facility]*02/12/2023 Closed compression fracture of L4 vertebra ([facility]*02/12/2023 Encounter Status:Closed by DONNA PHILLIP on 03/26/23 [facility] ALLIED HEALTH 02-20-2023 ALLIED HEALTH HNO ID: [id number] Author: RT Frankie(Hazel) Service: Radiology Author Type: Technologist Type: Allied Health Filed: 02/20/2023 5:26 PM Note Text: Radiology Service Progress Note PATIENT NAME: Winston Mari DATE OF SERVICE: February 20, 2023 TIME: 5:26 PM PATIENT IDENTITY VERIFICATION COMPLETED USING TWO (2) IDENTIFIERS: Name and Date of confirmed by patient verbally and Name and Date of confirmed by identification band. FALL SCREENING: Has the patient had 2 falls in the last year or 1 fall with injury or currently using an Ambulatory Assistive Device (Walker, Cane, Wheelchair, Crutches, etc.)? Emergency Room Patient: Screened in ED PATIENT GENDER DATA: Male PATIENT RELEVANT IMPLANT DATA REVIEWED: Not Applicable RADIOLOGY DEPARTMENT: General X-ray: Exam(s) Completed: Spine X-Ray(s): Lumbar AP / LAT / L5-S1 PERIPHERAL IV DATA: Not applicable SIGNED BY: RT Frankie(R) February 20, 2023 5:26 PM Normal [facility] ED NOTEon 02-20-2023 ED NOTE HNO ID: [id number] Author: Pebbles Corcoran RN Service: Emergency Medicine Author Type: Registered Nurse Type: ED Notes Filed: 02/20/2023 6:48 PM Note Text: No answer for room assignment Normal [facility] ED NOTE HNO ID: [id number] Author: Rosana Hollis RN Service: ? Author Type: Registered Nurse Type: ED Notes Filed: 02/20/2023 6:38 PM Note Text: Bed: 20-ED Expected date: Expected time: Means of arrival: Comments: TRIAGE WHEN CLEAN Normal [facility] ED Triage Noteon 02-20-2023 ED Triage Note HNO ID: [id number] Author: Kendra Dean APRN.CNP Service: ? Author Type: Nurse Practitioner Type: ED Triage Notes Filed: 02/20/2023 4:33 PM Note Text: ED INTAKE NOTE Patient Name: Winston Mari Service Date: 02/20/23 BRIEF HPI: Presents with low back pain. L2 vertebral body fracture. L4 vertebral body fx . Dc'd with tlso. Unable to wear brace, back pain increased. BRIEF EXAM: Awake and Alert RRR CTAB Abd soft/NT/ND; no rebound/guarding CEBALLOS INTAKE WORKUP: Imaging: XR: lumbar SIGNATURE: Kendra Dean APRN.CNP Normal [facility] XR LUMBAR 3V AP/LAT/L5-S1on 02-20-2023 XR LUMBAR 3V AP/LAT/L5-S1 * * *Final Report* * * DATE OF EXAM: Feb 20 2023 5:26PM AKX [id number] - XR LUMBAR 3V AP/LAT/L5-S1 / PROCEDURE REASON: Low back pain, trauma * * * * Physician Interpretation * * * * EXAM TITLE: X-RAY LUMBAR SPINE DATE: The second 2022 CLINICAL INDICATION/HISTORY: Lower back pain COMPARISON: X-ray lumbar spine February 12, 2023, MRI lumbar spine February 12, 2023 TECHNIQUE: AP and lateral views of the lumbar spine and coned-down lateral view of the lumbosacral junction FINDINGS: Subacute compression fracture of the L2 vertebral body with approximately 10-20% height loss similar to prior x-ray. Compression fracture of the L4 vertebral body with approximately 10% height loss similar to prior x-ray. Moderate disc space narrowing at L4-L5 and severe disc space narrowing at L5-S1. No spondylolisthesis. No lytic or blastic osseous lesions. IMPRESSION: Compression fractures of L2 and L4 similar in appearance to x-ray of February 12, 2023. 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: PSCB Transcribe Date/Time: Feb 20 2023 6:00P Dictated by : PATRICIA LAI MD This examination was interpreted and the report reviewed and electronically signed by: PATRICIA LAI MD on Feb 20 2023 6:05PM EST [id number] Normal [facility] Basic metabolic 2000 panelon 02-13-2023 Anion gap [Moles/Vol] 9 mmol/L Normal 9-18 [facility] Comment on above: Order Comment: Speci men Type: BLOOD SPECIMEN Ordering Facility: [facility] Address: [address] [id number] Performed By: #### 1 989-3 #### [facility] CLIA [id number] [address] [place] [address] [place] Calcium [Mass/Vol] 8.8 mg/dL Normal 8.5-10.2 [facility] Comment on above: Order Comment: Speci men Type: BLOOD SPECIMEN Ordering Facility: [facility] Address: [address] [place], [place] [id number] Performed By: #### 1 989-3 #### [facility] CLIA [id number] [address] [place] Chloride [Moles/Vol] 103 mmol/L Normal 97-105 [facility] Comment on above: Order Comment: Speci men Type: BLOOD SPECIMEN Ordering Facility: [facility] Address: [address] [place] [address] Performed By: #### 1 989-3 #### [facility] CLIA [id number] [address] OF [facility] CO2 [Moles/Vol] 26 mmol/L Normal 22-30 [facility] Comment on above: Order Comment: Speci men Type: BLOOD SPECIMEN Ordering Facility: [facility] Address: [address] [place] [address] Performed By: #### 1 989-3 #### [facility] CLIA [id number] [address] [place] [address] OF [facility] Creatinine [Mass/Vol] 1.06 mg/dL Normal 0.73-1.22 [facility] Comment on above: Order Comment: Speci men Type: BLOOD SPECIMEN Ordering Facility: [facility] Address: [address] [place] [address] Performed By: #### 1 989-3 #### [facility] CLIA [id number] [address] [place] [address] ESTIMATED GLOMERULAR FILTRATION RATE 77 mL/min/1.73m??? Normal >=60 [facility] Comment on above: Order Comment: Speci men Type: BLOOD SPECIMEN Ordering Facility: [facility] Address: [address] [place] [address] Result Comment: Josee mated Glomerular Filtration Rate (eGFR) is calculated using the 2020 CKD-EPI creatinine equation. This equation utilizes serum creatinine, sex, and age as parameters. The creatinine assay has traceable calibration to isotope dilution-mass spectrometry. Refer to KDIGO guidelines for clinical interpretation. In patients with unstable renal function, e.g. those with acute kidney injury, the eGFR may not accurately reflect actual GFR. Performed By: #### 1 989-3 #### [facility] CLIA [id number] [address] [place] [address] [place] Glucose [Mass/Vol] 119 mg/dL High 74-99 [facility] Comment on above: Order Comment: Yo brothers Type: BLOOD SPECIMEN Ordering Facility: [facility] Address: [address] [place] [address] Result Comment: The [place] [employer] (ADA) provides guidance for cutoff values for fasting glucose and random glucose. The ADA defines fasting as no caloric intake for at least 8 hours. Fasting plasma glucose results between 100 to 125 mg/dL indicate increased risk for diabetes (prediabetes). Fasting plasma glucose results greater than or equal to 126 mg/dL meet the criteria for diagnosis of diabetes. In the absence of unequivocal hyperglycemia, results should be confirmed by repeat testing. In a patient with classic symptoms of hyperglycemia or hyperglycemic crisis, random plasma glucose results greater than or equal to 200 mg/dL meet the criteria for diagnosis of diabetes. Reference: Standards of Medical Care in Diabetes 2016, [place] [employer]. Diabetes Care. 2016.39(Suppl 1). Performed By: #### 1 989-3 #### [facility] CLIA [id number] [address] [place] [address] [place] Potassium [Moles/Vol] 4.0 mmol/L Normal 3.7-5.1 [facility] Comment on above: Order Comment: Yo brothers Type: BLOOD SPECIMEN Ordering Facility: [facility] Address: [address] [place] [address] Performed By: #### 1 989-3 #### [facility] CLIA [id number] [address] [place] [address] [place] Sodium [Moles/Vol] 138 mmol/L Normal 136-144 [facility] Comment on above: Order Comment: Yo brothers Type: BLOOD SPECIMEN Ordering Facility: [facility] Address: [address] [place] [address] Performed By: #### 1 989-3 #### [facility] CLIA [id number] 1 [place] [address] [place] Urea nitrogen [Mass/Vol] 13 mg/dL Normal 9-24 [facility] Comment on above: Order Comment: Speci men Type: BLOOD SPECIMEN Ordering Facility: [facility] Address: [address] [address] Performed By: #### 1 989-3 #### [facility] CLIA [id number] [address] CBC panel Auto (Bld)on 02-13 Erythrocyte distribution width (RBC) [Ratio] 13.9 % Normal 11.5-15.0 [facility] Comment on above: Order Comment: Speci men Type: BLOOD SPECIMEN Ordering Facility: [facility] Address: [address] [place] [address] Performed By: #### 5 8410-2 #### [facility] CLIA [id number] [address] Hematocrit (Bld) [Volume fraction] 34.4 % Low 39.0-51.0 [facility] Comment on above: Order Comment: Speci men Type: BLOOD SPECIMEN Ordering Facility: [facility] Address: [address] [address] Performed By: #### 5 8410-2 #### [facility] CLIA [id number] [address] Hemoglobin (Bld) [Mass/Vol] 11.4 g/dL Low 13.0-17.0 [facility] Comment on above: Order Comment: Speci men Type: BLOOD SPECIMEN Ordering Facility: [facility] Address: [address] [address] Performed By: #### 5 8410-2 #### [facility] CLIA [id number] [address] MCH (RBC) [Entitic mass] 29.8 pg Normal 26.0-34.0 [facility] Comment on above: Order Comment: Speci men Type: BLOOD SPECIMEN Ordering Facility: [facility] Address: [address] [address] Performed By: #### 5 8410-2 #### [facility] CLIA [id number] [address] MCHC (RBC) [Mass/Vol] 33.1 g/dL Normal 30.5-36.0 [facility] Comment on above: Order Comment: Speci men Type: BLOOD SPECIMEN Ordering Facility: [facility] Address: [address] [place] [address] Performed By: #### 5 8410-2 #### [facility] CLIA [id number] [address] MCV (RBC) [Entitic vol] 90.1 fL Normal 80.0-100.0 [facility] Comment on above: Order Comment: Speci men Type: BLOOD SPECIMEN Ordering Facility: [facility] Address: [address] [place] [address] Performed By: #### 5 8410-2 #### [facility] CLIA [id number] [address] Nucleated RBC (Bld) [#/Vol] 10*3/uL Normal <0.01 [facility] Comment on above: Order Comment: Speci men Type: BLOOD SPECIMEN Ordering Facility: [facility] Address: [address] [place] [address] Performed By: #### 5 8410-2 #### [facility] CLIA [id number] [address] Platelet mean volume (Bld) [Entitic vol] 9.3 fL Normal 9.0-12.7 [facility] Comment on above: Order Comment: Speci men Type: BLOOD SPECIMEN Ordering Facility: [facility] Address: [address] [place] [address] Performed By: #### 5 8410-2 #### [facility] CLIA [id number] [address] [place] Platelets (Bld) [#/Vol] 274 10*3/uL Normal 150-400 [facility] Comment on above: Order Comment: Speci men Type: BLOOD SPECIMEN Ordering Facility: [facility] Address: [address] [address] Performed By: #### 5 8410-2 #### [facility] CLIA [id number] [address] RBC (Bld) [#/Vol] 3.82 10*6/uL Low 4.20-6.00 [facility] Comment on above: Order Comment: Speci men Type: BLOOD SPECIMEN Ordering Facility: [facility] Address: [address] [address] Performed By: #### 5 8410-2 #### [facility] CLIA [id number] [address] WBC (Bld) [#/Vol] 6.34 10*3/uL Normal 3.70-11.00 [facility] Comment on above: Order Comment: Speci men Type: BLOOD SPECIMEN Ordering Facility: [facility] Address: [address] [address] Performed By: #### 5 8410-2 #### [facility] CLIA [id number] [address] CNDSon 02-13-2023 [facility] HNO ID: [id number] Author: Prabhakar Ramirez PA-C Service: General Surgery Author Type: Physician Director Of Finance Type: Discharge Summary Filed: 02/13/2023 1:02 PM Note Text: ----- Attestation signed by Yessica Gottlieb MD at 02/14/2023 9:26 AM Attending Note I discussed with resident. The patient was not examined by the attending. I reviewed the resident's note. I agree with the resident's assessment and plan unless otherwise noted. Signature: Yessica Gottlieb MD Date: 02/14/2023. Time: 9:26 AM ----- DISCHARGE SUMMARY PATIENT NAME: Winston Mari Code Status: Not on file Highest Readmission Risk Score: 16 The 30 day readmissions risk score is derived from an internally validated risk model which evaluates patient level characteristics, utilization history, medication orders and lab results up until the day of discharge. Patients with a score of 40 or above are considered highest risk for readmission. Specific patient level drivers will be listed at the bottom of the summary. Admission Information Admission Information ADMIT DATE: 02/11/2023 DISCHARGE DATE: 02/13/2023 MY DOCTORS AND MEDICAL TEAM: My Main Hospital Doctor: Yessica Gottlieb MD Primary Care Provider: Eugenio Mayen IV, DO My Medical Team Members: Treatment Team: Attending Provider: Yessica Gottlieb MD Consulting: Pro Almonte MD MY CONDITION AT DISCHARGE: Stable REASON I WAS IN THE HOSPITAL: Treatment of L2 and L4 compression fractures SUMMARY OF WHAT HAPPENED WHILE I WAS IN THE HOSPITAL: Mr. Winston Mari presented to [facility] as a transfer from [facility] on 02/11/2023 for treatment of injuries sustained during a reported fall from a roof. CT imaging revealed a fracture of the L2 vertebral body extending into the L2 pedicle. He was admitted to the surgical nursing floor, kept under bedrest precautions and evaluated by neurosurgery. He would undergo MRI of his lumbar spine on 02/12/2023 which also revealed a fracture of the L4 vertebra along with the already known L2 fracture. Neurosurgery recommended non-surgical treatment of his injuries with bracing and subsequent x-rays. He was fitted for a TLSO back brace to be worn when out of bed/walking. Flexion/extension x-rays of his spine were completed on 02/12/2023 and remained stable. Pain management was consulted secondary to his chronic opioid dependence. He was evaluated by physical and occupational therapy who recommended home at discharge. Mr. Mari would be discharged home in stable condition on 02/13/2023. He would require close outpatient follow-up evaluations with his primary care provider and treating neurosurgeon. OTHER PROBLEMS/DIAGNOSIS: Principal Problem: Fall from roof, initial encounter Active Problems: Closed compression fracture of L2 vertebra (HCC) Closed compression fracture of L4 vertebra (HCC) Resolved Problems: * No resolved hospital problems. * OPERATIONS PERFORMED WHILE IN THE HOSPITAL: None IMPORTANT TEST/PROCEDURES: No procedures performed TEST RESULTS NOT AVAILABLE AT THIS TIME: No pending results Discharge Disposition Discharge Disposition: Home With Self Care Activity When You Leave the Hospital Do not bend over at the waist to lift heavy objects Lifting is restricted to: 10 pounds or equivalent to a gallon of milk until cleared by your treating neurosurgeon. May bathe and shower No prolonged bedrest, longer than 8 hours in a 24 hour period No walking restrictions Diet Instructions Avoid Alcohol Drink 6 to 8 glasses of fluids per day Resume your pre-hospital diet For Pain When You Leave the Hospital If you become constipated, you may use any pjvv-aep-gkvzget treatment such as Milk of Magnesia, Sennakot, Prune Juice, Suppositories, etc. in addition to the stool softener/fiber supplement No alcohol or driving while on pain medication Use acetaminophen (Tylenol) as recommended on the bottle Use the dispensed medication (see prescription) Call Your Doctor If Other: You have worsening back pain associated with numbness, tingling or weakness of your legs, loss of bowel or bladder control. You have lightheadedness, fainting, or confusion You have pain and swelling in your legs, especially if it is only on one side and not the other You have swollen glands or cold and clammy skin Follow Up Appointments Follow-Up Appointment Please call and schedule follow-up with your treating neurosurgeon for re-evaluation of your back injury. When: In 6 weeks Patient/Parents to call for appointment?: Yes Pro Almonte MD [phone] [place] [address] PCP Requested Referral Follow-Up Appointment When: In 2 weeks Patient/Parents to call for appointment?: Yes Eugenio Mayen IV, DO [phone] 400 COL (more content not included)... Normal [facility] CONSULT PROGon 02-13-2023 CONSULT PROG HNO ID: [id number] Author: Vnice Márquez APRN.CAREER TECHNICAL COUNSELOR Service: Neurosurgery Author Type: Nurse Practitioner Type: Consult Progress Note Filed: 02/13/2023 12:17 PM Note Text: Neurosurgery Progress Note SERVICE DATE: 02/13/2023 SUBJECTIVE: NAEON OBJECTIVE: Vitals: Temp (24hrs), Av.7 ?C (98.1 ?F), Min:36.6 ?C (97.9 ?F), Max:36.8 ?C (98.2 ?F) BP 135/75 Pulse 77 Temp 36.8 ?C (98.2 ?F) (Oral) Resp 16 Ht 180.3 cm (5' 11) Wt 68 kg (150 lb) SpO2 99% BMI 20.92 kg/m? O2 Therapy: Room Air IANDO: Date 02/12/23 0700 - 02/13/23 0659 02/13/23 0700 - 02/14/23 0659 Shift 8076-3115 5960-6056 5601-6343 24 Hour Total 1816-2588 7182-4172 8788-3832 24 Hour Total INTAKE PO 360 120 480 PO 360 120 480 Shift Total 360 120 480 OUTPUT Urine 650 4470 459 3409 Void (ml) 650 2177 501 5644 Shift Total 650 7792 161 3779 Weight (kg) 68 68 68 68 68 68 68 68 Medications: Current Facility-Administered Medications Medication Dose Route Frequency cholecalciferol 1,000 Units tab(s) (VITAMIN D3) 1,000 Units ORAL DAILY lidocaine 4 % 1 Patch (SALONPAS) 1 Patch TRANSDERMAL DAILY And lidocaine patch - REMOVE OTHER AT BEDTIME And lidocaine - VERIFY PATCH OTHER q 8 H senna-docusate 8.6-50 mg 1 tablet (SENNA-S) 1 tablet ORAL BID enoxaparin 30 mg injection (LOVENOX) 30 mg SUBCUTANEOUS q 12 HR atorvastatin 10 mg tab(s) (LIPITOR) 10 mg ORAL DAILY cyclobenzaprine 10 mg tab(s) (FLEXERIL) 10 mg ORAL TID diphenhydrAMINE 25 mg (BENADRYL) 25 mg ORAL q 6 H PRN tamsulosin 0.4 mg cap(s) (FLOMAX) 0.4 mg ORAL DAILY pantoprazole DR 40 mg tab(s) (PROTONIX) 40 mg ORAL DAILY (6 AM) DULoxetine 30 mg cap(s) (CYMBALTA) 30 mg ORAL BID acetaminophen 975 mg tab(s) (TYLENOL) 975 mg ORAL QID NaCl 0.9% iv flush bag 20 mL INTRAVENOUS PRN ondansetron 4 mg tab(s) (ZOFRAN) 4 mg ORAL q 6 H PRN Or ondansetron (PF) 4 mg injection (ZOFRAN) 4 mg INTRAVENOUS q 6 H PRN oxyCODONE IR 5-10 mg tab(s) (ROXICODONE) 5-10 mg ORAL q 6 H PRN NaCl 0.9% iv flush bag 20 mL INTRAVENOUS PRN Labs: Recent Labs 02/13/23 0022 02/12/23 0257 02/11/23 2253 NA 138 138 140 K 4.0 3.9 3.8 CHLOR 103 104 105 CO2 26 23 24 BUN 13 9 8* CREAT 1.06 0.87 0.87 GLUC 119* 83 85 ANION 9 11 11 CA 8.8 8.8 8.9 ALB -- -- 3.9 AST -- -- 21 ALT -- -- 19 ALKPHOS -- -- 78 TBILI -- -- 0.9 WBC 6.34 8.65 9.06 HB 11.4* 12.3* 12.2* HCT 34.4* 37.0* 37.0* PLT 274 288 279 INR -- -- 1.0 Imaging: IMPRESSION: No lumbar instability noted on these flexion and extension views. Compression deformities of L2 and L4 similar to prior MRI. 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: CHRISTIN Transcribe Date/Time: Feb 13 2023 8:46A Exam: GENERAL: No distress, Alert Neuro : A+O x3, PERRL, makes eye contact, speech clear, cranial nerves 2-12 grossly intact , CEBALLOS, strength 5/5 BUE and BLE and equal left leg sensation decreased HEENT: normocephalic, atraumatic NECK/BACK: pain with ROM LUNGS: Unlabored breathing CARDIAC: Regular rate and rhythm as above ABDOMEN: Soft, non-tender, non-distended EXTREMITIES: CEBALLOS, No deformities, No edema SKIN: Skin color, texture, turgor normal, No rashes or lesions ASSESSMENT AND PLAN: Active Hospital Problems Diagnosis Date Noted Fall from roof, initial encounter 02/11/2023 Closed compression fracture of L2 vertebra ([facility]) 02/12/2023 Closed compression fracture of L4 vertebra ([facility]) 02/12/2023 Winston Mari is a 68 year old male who presents after falling from a one story roof. L2 and L4 fracture noted on MRI. -Neuro as above -Pain control: per primary -Imaging: flex ex films stable -Diet: regula -Activity/bracing: TLSO ordered for L2 and L4 compression fractures. -Dispo: After reviewing xrays the patient's fractures are stable patient will have conservative management of his fractures in a brace when up and out of bed and follow up in the outpatient in [address] Almonte with additional flex ex of lumbar. -- Neurosurgery S/O at this time, please call with any questions or concerns. We appreciate the opportunity to participate in the care of this patient. -DVT ppx: ok for DVT ppx Portions of text from this note were copied. All relevant information was reviewed and updated accordingly on 02/13/2023 SIGNATURE: Vince Márquez APRN.CNP PATIENT NAME: Winston Mari DATE: February 13, 2023 TIME: 11:16 AM Vince Márquez APRN.CAREER TECHNICAL COUNSELOR Pager: [phone] Neurosurgery Pager: [phone] Normal [facility] THERAPY NTon 02-13-2023 THERAPY NT HNO ID: [id number] Author: Ileana Brooke PT Service: Physical Therapy Author Type: Physical Therapist Type: Therapy (PT/OT/Speech/Resp) Filed: 02/13/2023 11:19 AM Note Text: Physical Therapy Evaluation SERVICE DATE: 02/13/2023 SERVICE TIME: 901 to 924 ROOM: [place] [address] Recommended Discharge Disposition: Home Recommended Discharge Disposition Comments: Pt is functioning just below baseline at this time. He did not require increased physical assistance with mobility, and poses a low risk for falls with household ambulation distances. Would be appropriate to d/c home once medically stable. Anticipated Discharge Needs: Physical Assist at Home Physical Assist at Home for: Cleaning, Laundry, Transportation, Shopping Recommended Discharge Equipment: Wheeled Walker (for gait instability) PT 6 Clicks Score: 20 Pt demonstrates good mobility and activity tolerance as of this encounter. He poses a low fall risk with ambulation when using a wheeled walker, hence the equipment recommendation above. Would be safe to d/c home once medically stable. Precautions/Activity Restrictions: Fall Risk, Spine Current Hospital Course: Pt admitted 02/11 as a transfer from [facility] after a fall from his roof at home. MRI revealed L2 AND L4 vertebral body fx. -- no surgical treatment is anticipated and TLSO brace required for OOB/upright activity; Currently being managed on RNF Reason for Hospital Admission: Fall from height Relevant Past Medical History: Epilepsy, HLD, sciatica Response to Therapy Interventions: Good Participation in Activities, Pain Continued Skilled Needs Due to: Functional Mobility/Skill Impairments Physical Therapy Problem List: Pain, Functional Mobility Impairment Home Environment Patient Lives With: Family, Other: See Comment Comments: Pt lives with brother AND his family Assistance Available: Part-Time Entry To Home: Stairs Number Of Stairs Into Home: 3 Number Of Stairs To Bed/Bath: 0 Laundry: Family completes Equipment Owned: Other: See Comment (none) Prior Functional Level: Within Functional Limits Prior Functional Level Comments: Pt reports being indep with ADLs/IADLs -- family does home care tasks and driving Patient Report: Pleaant and agreeable to treatment/mobility CURRENT FUNCTIONAL STATUS: Most recent performance Current Functional Mobility Assist Level Additional Information Rolling Supine to Sit Stand By Assistance, Additional Information Pt able to bring LEs toward EOB and control trunk when assuming EOB seated posture; Reviewed log roll technique with bed mobility Sit to Supine Stand By Assistance, Additional Information Pt able to bring LEs into bed and control trunk in returning to supine Scooting Stand By Assistance, Additional Information Pt able to square hips to bed surface prior to transfers/mobility Sit to Stand Contact Guard Assistance, Additional Information VCs provided regarding hand placement on WW -- CGAx1 provided to ensure stability during transfer Stand to Sit Contact Guard Assistance, Additional Information Good eccentric control -- CGAx1 provided to ensure stability Bed to Chair Toilet/Commode Gait Contact Guard Assistance, Additional Information Gait Device: Wheeled Walker Gait Distance (feet): 50'x2 Pt demonstrates step-to pattern with WW -- L leg appeared antalgic given decreased stance time and step length; PT did report some L LE/back pain toward end of ambulation Stairs Contact Guard Assistance, Additional Information Stairs Device: Rail Number of Stairs: 4 Pt demonstrates step-to pattern with stair negotiation Curb Step Car Transfer Range of Motion: WFL Strength: Lower Extremity Comments Right Lower Extremity Strength Comments: Grossly WNL Left Lower Extremity Strength Comments: Pt demonstrated diminished L LE mobility with gait secondary to reports of pain in leg/back during mobility General Deviations/Observations: Antalgic gait, Jackie decreased, Flexed trunk posture, Step length decreased -HLM: 7: Walk 25 feet or more Learning/Educational Needs: Discharge Plan, Equipment, Functional Activities/Mobility, Plan of Care, Precautions, Rehabilitation Techniques and Procedures, Safety Goals for Plan of Care: Patient/Caregiver Goals: Go Home Transfer Supine to/from Sit with: Supervision Transfer Sit to/from Stand with: Supervision Ambulate with: Supervision Distance: 150'x2 Device: Wheeled Walker Ambulate Up and Down Steps with: Stand By Assistance Number of Steps: 4 Device: Rail Goal: Pt will complete Romberg/Sharpened Romberg EO/EC x30 sec with SBA Rehab Potential: Good Patient will be discontinued from Physical Therapy when no further skilled needs are identified in this setting. PLAN: PT Frequency: 3 times per week (1-3) Plan of Care developed with: Patient TREATMENT INTERVENTIONS: Therapy Diagnosis: Reduced mobility-other, Decreased activities o (more content not included)... Normal [facility] 25(OH)D3 SerPl-mCncon 2022 25-hydroxyvitamin D3 [Mass/Vol] 19.8 ng/mL Low >=30.0 [facility] Comment on above: Order Comment: Speci men Type: BLOOD SPECIMEN Ordering Facility: [facility] Address: [address] [place] [id number] Result Comment: Clas sification of 25 [place] Vitamin D status: Deficiency: <= 20.0 ng/ml. Insufficiency: 21.0-29.0 ng/ml. Sufficiency: >= 30.0 ng/ml. Performed By: #### 1 989-3 #### [facility] CLIA [id number] [address] [place] [place] [id number] [place] Basic metabolic 2000 panelon 02-12-2023 Anion gap [Moles/Vol] 11 mmol/L Normal 9-18 [facility] Comment on above: Order Comment: Speci men Type: BLOOD SPECIMEN Ordering Facility: [facility] Address: [address] [address] Performed By: #### 1 989-3 #### [facility] CLIA [id number] [address] STATES [facility] Calcium [Mass/Vol] 8.8 mg/dL Normal 8.5-10.2 [facility] Comment on above: Order Comment: Speci men Type: BLOOD SPECIMEN Ordering Facility: [facility] Address: [address] [place] [address] Performed By: #### 1 989-3 #### [facility] CLIA [id number] [address] [place] Chloride [Moles/Vol] 104 mmol/L Normal 97-105 [facility] Comment on above: Order Comment: Speci men Type: BLOOD SPECIMEN Ordering Facility: [facility] Address: [address] [place] [address] Performed By: #### 1 989-3 #### [facility] CLIA [id number] [address] [place] CO2 [Moles/Vol] 23 mmol/L Normal 22-30 [facility] Comment on above: Order Comment: Speci men Type: BLOOD SPECIMEN Ordering Facility: [facility] Address: [address] [place] [address] Performed By: #### 1 989-3 #### [facility] CLIA [id number] [address] [place] Creatinine [Mass/Vol] 0.87 mg/dL Normal 0.73-1.22 [facility] Comment on above: Order Comment: Speci men Type: BLOOD SPECIMEN Ordering Facility: [facility] Address: [address] [place] [address] Performed By: #### 1 989-3 #### [facility] CLIA [id number] [address] [place] ESTIMATED GLOMERULAR FILTRATION RATE 95 mL/min/1.73m??? Normal >=60 [facility] Comment on above: Order Comment: Yo brothers Type: BLOOD SPECIMEN Ordering Facility: [facility] Address: [address] [place] [address] Result Comment: Josee mated Glomerular Filtration Rate (eGFR) is calculated using the 2020 CKD-EPI creatinine equation. This equation utilizes serum creatinine, sex, and age as parameters. The creatinine assay has traceable calibration to isotope dilution-mass spectrometry. Refer to KDIGO guidelines for clinical interpretation. In patients with unstable renal function, e.g. those with acute kidney injury, the eGFR may not accurately reflect actual GFR. Performed By: #### 1 989-3 #### [facility] CLIA [id number] [address] [place] [address] [place] Glucose [Mass/Vol] 83 mg/dL Normal 74-99 [facility] Comment on above: Order Comment: Yo brothers Type: BLOOD SPECIMEN Ordering Facility: [facility] Address: [address] [place] [address] Result Comment: The [place] [employer] (ADA) provides guidance for cutoff values for fasting glucose and random glucose. The ADA defines fasting as no caloric intake for at least 8 hours. Fasting plasma glucose results between 100 to 125 mg/dL indicate increased risk for diabetes (prediabetes). Fasting plasma glucose results greater than or equal to 126 mg/dL meet the criteria for diagnosis of diabetes. In the absence of unequivocal hyperglycemia, results should be confirmed by repeat testing. In a patient with classic symptoms of hyperglycemia or hyperglycemic crisis, random plasma glucose results greater than or equal to 200 mg/dL meet the criteria for diagnosis of diabetes. Reference: Standards of Medical Care in Diabetes 2016, [place] Diabetes Association. Diabetes Care. 2016.39(Suppl 1). Performed By: #### 1 989-3 #### [facility] CLIA [id number] 1 [place] [address] [place] Potassium [Moles/Vol] 3.9 mmol/L Normal 3.7-5.1 [facility] Comment on above: Order Comment: Yo brothers Type: BLOOD SPECIMEN Ordering Facility: [facility] Address: [address] [address] Performed By: #### 1 989-3 #### [facility] CLIA [id number] [address] Sodium [Moles/Vol] 138 mmol/L Normal 136-144 [facility] Comment on above: Order Comment: Speci men Type: BLOOD SPECIMEN Ordering Facility: [facility] Address: [address] [place] [address] Performed By: #### 1 989-3 #### [facility] CLIA [id number] [address] Urea nitrogen [Mass/Vol] 9 mg/dL Normal 9-24 [facility] Comment on above: Order Comment: Speci men Type: BLOOD SPECIMEN Ordering Facility: [facility] Address: [address] [place] [address] Performed By: #### 1 989-3 #### [facility] CLIA [id number] [address] CASE MGT INIT ASSESon 2022 CASE MGT INIT ASS HNO ID: [id number] Author: YOSHI Epps Service: ? Author Type: Advanced Manufacturing Consultant Type: Care Mgt Initial Assessment Filed: 02/12/2023 11:21 AM Note Text: CARE MANAGEMENT: ASSESSMENT AND DISCHARGE PLAN SERVICE DATE: February 12, 2023 SERVICE TIME: 11:09 AM PCP: Eugenio Mayen IV, DO Primary Contact: Extended Emergency Contact Information Primary Emergency Contact: Joe Mari Mobile Relation: Brother Admission Status: Inpatient Insurance Provider: [employer] Discharge Planning requested by: Per Department Practice Potential Transition Plans Home;To Be Determined Advance Directives Current Advance Directive: Health Care Power of Program Therapist In Chart: Yes Up To Date and Valid: Yes Current Living Arrangements and Support Lives with: Family members (Lives with his brother, sister in law and 2 nephews) Type of Residence: Private Residence (House) Does the patient have to climb stairs at home?: Yes Support: Family members How do you manage to accomplish the following: Independent: Ambulation;Bathe/Shower;D ress;Meals/Meal Prep;Going to the bathroom;Medication Management;Transportation to appointments/community Current Services/Equipment Current Post-Acute Service(s): DME Current DME Type: Cane Discharge Planning Patient Goal(s): Be able to go home [place] of Choice Explained: [place] of Choice Given: No Reason Not Given: No placements necessary Are you interested in bedside delivery of your medications? No Discharge Planning Participant(s): Patient Patient/Family Comments: Caregiver Assessment: Caregiver is ready, willing and able to meet the patient's needs as recommended by the inter-professional team: Yes Name of Caregiver: Pt's brother and sister in law Transport at Discharge: Transportation Arrangements: Car Needs Prior to Discharge: Needs Prior to Discharge: OT/PT Evaluation;Other: See Comment (Awaiting TLSO brace) Post-Acute Discharge Plan: TRAUMA ASSESSMENT- ALCOHOL USE HISTORY: 1. Consumption Screening Male 5 or more drinks in one session:No More than 2 drinks per day:No More than 14 drinks per week:No Pt denies any ETOH use since 1997 2. Have you ever felt you should cut down on your drinking? Not Applicable 3. Have people annoyed you by criticizing your drinking? Not Applicable 4. Have you ever felt bad or guilty about drinking? Not Applicable 5. Have you ever had a drink first thing in the morning to steady your nerves or get rid of a hangover (eye chemist enzymes)? Not Applicable 6. CAGE Screening? No 7. If patient has a positive screen CAGE or Consumption, what is their total number of drinks per day? N/a 8. Date of last alcohol use: 1997 ALCOHOL/DRUG HISTORY: Marijuana Uses gummies for lung disease. Does not have a medical marijuana card. Has drinking/drug use affected your work performance? Not Applicable Has drinking/drug use caused you to miss work? Not Applicable Has drinking/drug use affected your relationships? No Has drinking/drug use affected your health? No Has drinking/drug use had legal consequences? No Do you have a history of substance abuse treatment? No MENTAL HEALTH HISTORY: Do you have a history of mental health issues? No Have you ever had any behavioral problems/anger management issues? No PSYCHOSOCIAL ASSESSMENT: Current living situation: Pt lives with his brother, sister in law and 2 nephews Social supports: family Do you have a family history of alcohol/drug use? Yes and used to drink regularly however hasn't drank since 1997. Do you have a family history of mental health issues? No Significant childhood events (trauma, abuse, neglect)? No Current or past history of abuse/neglect? No Cultural beliefs related to alcohol/drug use? No Self care issues? No Difficulty communicating with others? No Financial difficulties? No Currently employed? No Student? No Past or present ? No PLAN/RECOMMENDATIONS: Patient Education: Blood alcohol level and/or toxicology screen upon admission Recommended/Reviewed Abstinence for the following: n/a Motivation to seek treatment at this time: none, Pt denies any addiction concerns Barriers to seeking treatment: No barriers identified Treatment Referral: none Other Referrals: none SW reviewed chart and met with the Pt. Pt is at baseline, Independent with mobility and self care. He drives and manages his own affairs. SW completed the HC POA with him at this time. Copy sent to Admitting. Original and 2 copies provided to the Pt. Pt plans to return home at [facility]. Pt is awaiting TLSO and PT/OT evals. Pt fell off the roof, while cleaning the gutters. Pt admits to using gummies for his lung disease and denies any other substance use. Pt's brother will transport him home at [facility]. +PCP, +RX, +DME SIGNATURE: YOSHI Epps PATIENT NAME: Winston Mari DATE: February 12, 2023 TIME: 11:08 AM C (more content not included)... Normal [facility] CBC panel Auto (Bld)on 02-12 Erythrocyte distribution width (RBC) [Ratio] 14.0 % Normal 11.5-15.0 [facility] Comment on above: Order Comment: Yo brothers Type: BLOOD SPECIMEN Ordering Facility: [facility] Address: [address] [address] Performed By: #### 5 8410-2 #### [facility] CLIA [id number] [address] [place] [address] [place] [facility] Hematocrit (Bld) [Volume fraction] 37.0 % Low 39.0-51.0 [facility] Comment on above: Order Comment: Yo brothers Type: BLOOD SPECIMEN Ordering Facility: [facility] Address: [address] [place] [address] Performed By: #### 5 8410-2 #### [facility] CLIA [id number] [address] Hemoglobin (Bld) [Mass/Vol] 12.3 g/dL Low 13.0-17.0 [facility] Comment on above: Order Comment: Speci men Type: BLOOD SPECIMEN Ordering Facility: [facility] Address: [address] [place] [address] Performed By: #### 5 8410-2 #### [facility] CLIA [id number] [address] MCH (RBC) [Entitic mass] 29.9 pg Normal 26.0-34.0 [facility] Comment on above: Order Comment: Speci men Type: BLOOD SPECIMEN Ordering Facility: [facility] Address: [address] [place] [address] Performed By: #### 5 8410-2 #### [facility] CLIA [id number] [address] MCHC (RBC) [Mass/Vol] 33.2 g/dL Normal 30.5-36.0 [facility] Comment on above: Order Comment: Speci men Type: BLOOD SPECIMEN Ordering Facility: [facility] Address: [address] [place] [address] Performed By: #### 5 8410-2 #### [facility] CLIA [id number] [address] MCV (RBC) [Entitic vol] 90.0 fL Normal 80.0-100.0 [facility] Comment on above: Order Comment: Speci men Type: BLOOD SPECIMEN Ordering Facility: [facility] Address: [address] [place] [address] Performed By: #### 5 8410-2 #### [facility] CLIA [id number] [address] Nucleated RBC (Bld) [#/Vol] 10*3/uL Normal <0.01 [facility] Comment on above: Order Comment: Speci men Type: BLOOD SPECIMEN Ordering Facility: [facility] Address: [address] [address] Performed By: #### 5 8410-2 #### [facility] CLIA [id number] [address] Platelet mean volume (Bld) [Entitic vol] 9.0 fL Normal 9.0-12.7 [facility] Comment on above: Order Comment: Speci men Type: BLOOD SPECIMEN Ordering Facility: [facility] Address: [address] [address] Performed By: #### 5 8410-2 #### [facility] CLIA [id number] [address] [place] Platelets (Bld) [#/Vol] 288 10*3/uL Normal 150-400 [facility] Comment on above: Order Comment: Speci men Type: BLOOD SPECIMEN Ordering Facility: [facility] Address: [address] [address] Performed By: #### 5 8410-2 #### [facility] CLIA [id number] [address] [place] RBC (Bld) [#/Vol] 4.11 10*6/uL Low 4.20-6.00 [facility] Comment on above: Order Comment: Speci men Type: BLOOD SPECIMEN Ordering Facility: [facility] Address: [address] [address] Performed By: #### 5 8410-2 #### [facility] CLIA [id number] [address] [place] WBC (Bld) [#/Vol] 8.65 10*3/uL Normal 3.70-11.00 [facility] Comment on above: Order Comment: Speci men Type: BLOOD SPECIMEN Ordering Facility: [facility] Address: [address] [place] [address] Performed By: #### 5 8410-2 #### [facility] CLIA [id number] [address] [place] [address] Erythrocyte distribution width (RBC) [Ratio] 13.9 % Normal 11.5-15.0 [facility] Comment on above: Order Comment: Speci men Type: BLOOD SPECIMEN Ordering Facility: [facility] Address: [address] [place] [address] Performed By: #### 5 8410-2 #### [facility] CL[facility] [id number] [address] Hematocrit (Bld) [Volume fraction] 37.0 % Low 39.0-51.0 [facility] Comment on above: Order Comment: Speci men Type: BLOOD SPECIMEN Ordering Facility: [facility] Address: [address] [place] [address] Performed By: #### 5 8410-2 #### [facility] CLIA [id number] [address] Hemoglobin (Bld) [Mass/Vol] 12.2 g/dL Low 13.0-17.0 [facility] Comment on above: Order Comment: Speci men Type: BLOOD SPECIMEN Ordering Facility: [facility] Address: [address] [place] [address] Performed By: #### 5 8410-2 #### [facility] CLIA [id number] [address] MCH (RBC) [Entitic mass] 29.8 pg Normal 26.0-34.0 [facility] Comment on above: Order Comment: Speci men Type: BLOOD SPECIMEN Ordering Facility: [facility] Address: [address] [place] [address] Performed By: #### 5 8410-2 #### [facility] CLIA [id number] [address] MCHC (RBC) [Mass/Vol] 33.0 g/dL Normal 30.5-36.0 [facility] Comment on above: Order Comment: Speci men Type: BLOOD SPECIMEN Ordering Facility: [facility] Address: [address] [place] [address] Performed By: #### 5 8410-2 #### [facility] CLIA [id number] [address] MCV (RBC) [Entitic vol] 90.5 fL Normal 80.0-100.0 [facility] Comment on above: Order Comment: Speci men Type: BLOOD SPECIMEN Ordering Facility: [facility] Address: [address] [place] [address] Performed By: #### 5 8410-2 #### [facility] CLIA [id number] [address] Nucleated RBC (Bld) [#/Vol] 10*3/uL Normal <0.01 [facility] Comment on above: Order Comment: Speci men Type: BLOOD SPECIMEN Ordering Facility: [facility] Address: [address] [place] [address] Performed By: #### 5 8410-2 #### [facility] CLIA [id number] [address] Platelet mean volume (Bld) [Entitic vol] 8.6 fL Low 9.0-12.7 [facility] Comment on above: Order Comment: Speci men Type: BLOOD SPECIMEN Ordering Facility: [facility] Address: [address] [place] [address] Performed By: #### 5 8410-2 #### [facility] CLIA [id number] [address] Platelets (Bld) [#/Vol] 279 10*3/uL Normal 150-400 [facility] Comment on above: Order Comment: Speci men Type: BLOOD SPECIMEN Ordering Facility: [facility] Address: [address] [place] [address] Performed By: #### 5 8410-2 #### [facility] CLIA [id number] [address] [place] RBC (Bld) [#/Vol] 4.09 10*6/uL Low 4.20-6.00 [facility] Comment on above: Order Comment: Specflorence brothers Type: BLOOD SPECIMEN Ordering Facility: [facility] Address: [place] [address] Performed By: #### 5 8410-2 #### [facility] CLIA [id number] [address] WBC (Bld) [#/Vol] 9.06 10*3/uL Normal 3.70-11.00 [facility] Comment on above: Order Comment: Speci men Type: BLOOD SPECIMEN Ordering Facility: [facility] Address: [place] [address] Performed By: #### 5 8410-2 #### [facility] CLIA [id number] [address] CONSULTon 02-12-2023 CONSULT HNO ID: [id number] Author: Pretty Cardenas MD Service: Pain Management Author Type: Physician Type: Consults Filed: 02/12/2023 3:59 PM Note Text: Name: WINSTON MARI Age: [age] year old PAIN MANAGEMENT: s/p Fall, L2 and L4 fractures, chronic pain lumbar sacral spondylosis with radiculopathy, osteoarthritis, opiate dependent Pain Description: Patient resting comfortably. States that he is not too good. Described as sharp, stabbing pain in his spine that goes to his hips. He is excited to have lunch; states that he is hungry Interval HPI: 24H Comfort Meds: Tylenol 975 mg 4 times daily x2 Cymbalta 30 mg x 1 Morphine 4 mg IV every 4 hours as needed x1 Oxycodone 5-10 mg every 6 hours as needed 10 mg x 2 Morphine 4 mg IV x1 Zofran 4 mg IV x1 Subjective HPI: 68-year-old male with history of chronic pain (lumbar sacral spine spondylosis with radiculopathy, osteoarthritis, opiate dependent), hyperlipidemia presented 02/11 after a 10-15 feet fall from a rough when he was cleaning his gutters. Patient heard a crack in his lower back with acute onset lower back pain. Patient was seen at [facility] ED. CT HNCAPT completed and demonstrated acute L2 fracture. Urine drug screen positive for cannabinoid, opiates. Labs included WBC 9 hemoglobin 12.2 creatinine 0.87 patient also complained of new numbness and tingling in his toes, foot, levi and thigh on the left in addition to difficulty moving his legs secondary to pain. Neurosurgery spine consulted; T SLO brace ordered. Lumbar MRI acute fracture L2 vertebral body with minimal edema extending into left L2 pedicle. Mild vertebral body height loss without significant retropulsion into the spinal canal, question minimal anterior longitudinal ligament injury. Acute L4 vertebral body fracture with mild edema extending into left L4 pedicle with minimal body height loss and no retropulsion. No evidence of epidural hematoma or significant spinal canal stenosis within the lumbar spine. Patient lives with his brother. He quit tobacco 1997. He quit alcohol 1987. His PCP has been managing his chronic pain; home regimen includes Percocet 5/325 up to 4 tabs daily, gabapentin 300 mg 3 times daily. OARRS Review: 52 prescriptions from 8 prescribers. Opiate dependent. Most recent prescriptions: 01/04, 02/02 Percocet 5/325 #120 (30-day supply) 12/30, 01/29 gabapentin 300 mg #90 (30-day supply) Current Facility-Administered Medications Medication Dose Route Frequency Provider Last Rate Last Admin morphine 4 mg injection 4 mg INTRAVENOUS q 4 H PRN Shira Galarza, DO 4 mg at 02/12/23 0259 tamsulosin 0.4 mg cap(s) (FLOMAX) 0.4 mg ORAL DAILY Shira Galarza DO 0.4 mg at 02/12/[address] 40 mg tab(s) (PROTONIX) 40 mg ORAL DAILY (6 AM) Shira Galarza DO 40 mg at 02/12/23 0517 DULoxetine 30 mg cap(s) (CYMBALTA) 30 mg ORAL BID Shira Galarza DO 30 mg at 02/12/23 0826 lactated ringers iv infusion 100 mL/hr INTRAVENOUS CONTINUOUS Shira Galarza DO 100 mL/hr at 02/11/23 2343 100 mL/hr at 02/11/23 2343 acetaminophen 975 mg tab(s) (TYLENOL) 975 mg ORAL QID Shira Galarza DO 975 mg at 02/12/23 0517 NaCl 0.9% iv flush bag 20 mL INTRAVENOUS PRN Shira Galarza, DO ondansetron 4 mg tab(s) (ZOFRAN) 4 mg ORAL q 6 H PRN Shira Galarza, DO Or ondansetron (PF) 4 mg injection (ZOFRAN) 4 mg INTRAVENOUS q 6 H PRN Shira Galarza, DO oxyCODONE IR 5-10 mg tab(s) (ROXICODONE) 5-10 mg ORAL q 6 H PRN Shira Galarza, DO 10 mg at 02/12/23 0826 NaCl 0.9% iv flush bag 20 mL INTRAVENOUS PRN Shira Galarza, DO omeprazole (PRILOSEC) 40 mg capsule, Take 40 mg by mouth once daily., Disp: , Rfl: DULoxetine (CYMBALTA) 30 mg capsule, TAKE 1 CAPSULE BY MOUTH TWICE A DAY FOR 90 DAYS - DOSE INCREASE - DO NOT CRUSH OR CHEW, Disp: , Rfl: oxyCODONE IR (ROXICODONE) 5 mg immediate release tablet, Take 5 mg by mouth every 6 hours as needed., Disp: , Rfl: gabapentin (NEURONTIN) 300 mg capsule, Take 1 capsule by mouth four times daily for 30 days., Disp: 120 capsule, Rfl: 11 cyclobenzaprine (FLEXERIL) 10 mg tablet, Take 1 tablet by mouth every 8 hours as needed for Muscle Spasm (or pain)., Disp: 14 tablet, Rfl: 0 atorvastatin (LIPITOR) 10 mg tablet, Take 1 tablet by mouth once daily. BEFORE BEDTIME, Disp: 30 tablet, Rfl: 5 docusate sodium (COLACE) 100 mg capsule, TAKE 1 CAPSULE BY MOUTH TWICE A DAY FOR 30 DAYS NEEDED FOR CONSTIPATION, Disp: , Rfl: hydrocortisone (HEMORRHOIDAL HC) 25 mg suppository, Hydrocortisone Acetate (Anusol-Hc) 25 mg suppository Active 25 MG RC AT BEDTIME April 26, 2022 11:00pm, Disp: , Rfl: polyethylene glycol 3350 (MIRALAX, GLYCOLAX) 17 gram/dose powder, 17 GRAMS BY MOUTH TWICE DAILY FOR 90 DAYS, Disp: , Rfl: tamsulosin (FLOMAX) 0.4 mg, Take 0.4 mg by mouth once daily., Disp: , Rfl: methylPREDNISolone (MEDROL, REX,) 4 mg Dose-Pack, Take by mouth. As directed on package (Patient n (more content not included)... Normal [facility] CONSULT HNO ID: [id number] Author: Vince Márquez APRN.[facility] Service: Neurosurgery Author Type: Nurse Practitioner Type: Consults Filed: 02/12/2023 12:18 PM Note Text: ----- Attestation signed by Pro Almonte MD at 02/12/2023 5:14 PM Attending Note: Clark findings confirmed. Patient examined. Discussed with the nurse practitioner and the patient. Plan as outlined. Pro Almonte MD ----- CONSULT: NEUROSURGERY SERVICE Patient Name: Winston Mari Date of : 1955 SERVICE DATE: 02/12/2023 SERVICE TIME: 11:06 AM REASON FOR CONSULT: L2 fracture REQUESTING PHYSICIAN: Dr Cordero PRIMARY CARE PHYSICIAN: Eugenio Mayen IV , DO Consultation requested by Dr. Cordero for an opinion regarding L2 fracture. My final recommendations will be communicated back to the requesting physician by way of shared Medical record or letter to requesting physician via US mail. CHIEF COMPLAINT: Fall from roof. HISTORY OF PRESENT ILLNESS : The patient is a 68 year old male with pmh of epilepsy, HLD, previous sciatica who presented after fall from one story roof. The patient reports he was cleaning his gutters when he fell down from the ladder and landed on his feet, he felt a crack in his back and fell back. He denies LOC but does report disorientation right after his fall. Since his fall he has had intermittent left foot numbness which starts at his left knee and travels to the top of his foot. CT scan at [facility]SH showed L2 compression fracture. He endorses left knee down to foot numbness and tingling. He denies any urinary incontinence. MRI was completed at recommendation from neurosurgery after reviewing CT last night, which indicates L2 vertebral body fracture and L4 vertebral body fracture with no extension into posterior elements. PAST MEDICAL HISTORY Diagnosis Date Arthritis Epilepsy (HCC) High cholesterol Sciatica PAST SURGICAL HISTORY Procedure Laterality Date ARTHROSCOPY, HIP: W/LABRAL REPAIR Left 1974 BRAIN SURGERY HX OTHER ANEURYSM REPAIR 1983 [facility]- Dr. Simpson- Brain Aneurysm FAMILY HISTORY Problem Relation Age of Onset Cancer Mother Cancer Father Ischemic Heart Disease Brother ALLERGIES Allergen Reactions Hydrocodone-Acetami* Rash Naproxen Rash Ultram [Tramadol Hc* GI Upset Current Facility-Administered Medications Medication Dose Route Frequency Provider Last Rate Last Admin morphine 4 mg injection 4 mg INTRAVENOUS q 4 H PRN Shira Galarza DO 4 mg at 02/12/23 0259 tamsulosin 0.4 mg cap(s) (FLOMAX) 0.4 mg ORAL DAILY Shira Galarza DO 0.4 mg at 02/12/[address] 40 mg tab(s) (PROTONIX) 40 mg ORAL DAILY (6 AM) Shira Galarza DO 40 mg at 02/12/23 0517 DULoxetine 30 mg cap(s) (CYMBALTA) 30 mg ORAL BID Shira Galarza DO 30 mg at 02/12/23 0826 lactated ringers iv infusion 100 mL/hr INTRAVENOUS CONTINUOUS Shira Galarza DO 100 mL/hr at 02/11/23 2343 100 mL/hr at 02/11/23 2343 acetaminophen 975 mg tab(s) (TYLENOL) 975 mg ORAL QID Shira Galarza DO 975 mg at 02/12/23 0517 NaCl 0.9% iv flush bag 20 mL INTRAVENOUS PRN Shira Galarza DO ondansetron 4 mg tab(s) (ZOFRAN) 4 mg ORAL q 6 H PRN Shira Galarza DO Or ondansetron (PF) 4 mg injection (ZOFRAN) 4 mg INTRAVENOUS q 6 H PRN Shira Galarza DO oxyCODONE IR 5-10 mg tab(s) (ROXICODONE) 5-10 mg ORAL q 6 H PRN Shira Galarza DO 10 mg at 02/12/23 0826 NaCl 0.9% iv flush bag 20 mL INTRAVENOUS PRN Shira Galarza DO COMPLETE REVIEW OF SYSTEMS PAIN ASSESSMENT: see HPI GENERAL: No weight loss, malaise or fevers HEENT: Negative for dizziness, blurred vision, double vision NECK: Negative for neck pain or stiffness RESPIRATORY: Negative for cough, wheezing or shortness of breath CARDIOVASCULAR: Negative for chest pain, leg swelling or palpitations GI: Negative for nausea or emesis : No history of dysuria, frequency or incontinence MUSCULOSKELETAL: reporting back pain SKIN: Negative for lesions, rash, and itching NEURO: see HPI MEDS: Current Facility-Administered Medications Medication Dose Route Frequency morphine 4 mg injection 4 mg INTRAVENOUS q 4 H PRN tamsulosin 0.4 mg cap(s) (FLOMAX) 0.4 mg ORAL DAILY pantoprazole DR 40 mg tab(s) (PROTONIX) 40 mg ORAL DAILY (6 AM) DULoxetine 30 mg cap(s) (CYMBALTA) 30 mg ORAL BID lactated ringers iv infusion 100 mL/hr INTRAVENOUS CONTINUOUS acetaminophen 975 mg tab(s) (TYLENOL) 975 mg ORAL QID NaCl 0.9% iv flush bag 20 mL INTRAVENOUS PRN ondansetron 4 mg tab(s) (ZOFRAN) 4 mg ORAL q 6 H PRN Or ondansetron (PF) 4 mg injection (ZOFRAN) 4 mg INTRAVENOUS q 6 H PRN oxyCODONE IR 5-10 mg tab(s) (ROXICODONE) 5-10 mg ORAL q 6 H PRN NaCl 0.9% iv flush bag 20 mL INTRAVENOUS PRN OBJECTIVE: BP 142/84 Pulse 68 Temp (Src) 98.1 (Ora (more content not included)... Normal [facility] Comprehensive metabolic 2000 panelon 02-12-2023 Albumin [Mass/Vol] 3.9 g/dL Normal 3.9-4.9 [facility] Comment on above: Order Comment: Speci men Type: BLOOD SPECIMEN Ordering Facility: [facility] Address: [address] [place] [id number] Performed By: #### 1 989-3 #### [facility] CLIA [id number] 1 [place] [address] [place] ALP [Catalytic activity/Vol] 78 U/L Normal 38-113 [facility] Comment on above: Order Comment: Speci men Type: BLOOD SPECIMEN Ordering Facility: [facility] Address: [address] [place] [address] Performed By: #### 1 989-3 #### [facility] CLIA [id number] [address] ALT With P-5'-P [Catalytic activity/Vol] 19 U/L Normal 10-54 [facility] Comment on above: Order Comment: Speci men Type: BLOOD SPECIMEN Ordering Facility: [facility] Address: [address] [place] [address] Performed By: #### 1 989-3 #### [facility] CLIA [id number] [address] Anion gap [Moles/Vol] 11 mmol/L Normal 9-18 [facility] Comment on above: Order Comment: Speci men Type: BLOOD SPECIMEN Ordering Facility: [facility] Address: [address] [place] [address] Performed By: #### 1 989-3 #### [facility] CLIA [id number] [address] [place] With P-5'-P [Catalytic activity/Vol] 21 U/L Normal 14-40 [facility] Comment on above: Order Comment: Speci men Type: BLOOD SPECIMEN Ordering Facility: [facility] Address: [address] [place] [address] Performed By: #### 1 989-3 #### [facility] CLIA [id number] [address] [place] Bilirubin [Mass/Vol] 0.9 mg/dL Normal 0.2-1.3 [facility] Comment on above: Order Comment: Speci men Type: BLOOD SPECIMEN Ordering Facility: [facility] Address: [address] [place] [address] Performed By: #### 1 989-3 #### [facility] CLIA [id number] [address] [place] Calcium [Mass/Vol] 8.9 mg/dL Normal 8.5-10.2 [facility] Comment on above: Order Comment: Speci men Type: BLOOD SPECIMEN Ordering Facility: [facility] Address: [address] [address] Performed By: #### 1 989-3 #### [facility] CLIA [id number] [address] [place] Chloride [Moles/Vol] 105 mmol/L Normal 97-105 [facility] Comment on above: Order Comment: Speci men Type: BLOOD SPECIMEN Ordering Facility: [facility] Address: [address] [place] [address] Performed By: #### 1 989-3 #### [facility] CLIA [id number] [address] [place] CO2 [Moles/Vol] 24 mmol/L Normal 22-30 [facility] Comment on above: Order Comment: Speci men Type: BLOOD SPECIMEN Ordering Facility: [facility] Address: [address] [place] [address] Performed By: #### 1 989-3 #### [facility] CLIA [id number] [address] [place] Creatinine [Mass/Vol] 0.87 mg/dL Normal 0.73-1.22 [facility] Comment on above: Order Comment: Speci men Type: BLOOD SPECIMEN Ordering Facility: [facility] Address: [address] [place] [address] Performed By: #### 1 989-3 #### [facility] CLIA [id number] [address] [place] ESTIMATED GLOMERULAR FILTRATION RATE 95 mL/min/1.73m??? Normal >=60 [facility] Comment on above: Order Comment: Speci men Type: BLOOD SPECIMEN Ordering Facility: [facility] Address: [address] [place] [address] Result Comment: Josee mated Glomerular Filtration Rate (eGFR) is calculated using the 2020 CKD-EPI creatinine equation. This equation utilizes serum creatinine, sex, and age as parameters. The creatinine assay has traceable calibration to isotope dilution-mass spectrometry. Refer to KDIGO guidelines for clinical interpretation. In patients with unstable renal function, e.g. those with acute kidney injury, the eGFR may not accurately reflect actual GFR. Performed By: #### 1 989-3 #### [facility] CLIA [id number] 1 [place] [address] [place] Glucose [Mass/Vol] 85 mg/dL Normal 74-99 [facility] Comment on above: Order Comment: Specflorence brothers Type: BLOOD SPECIMEN Ordering Facility: [facility] Address: [address] [place] [address] Result Comment: The [place] [employer] (ADA) provides guidance for cutoff values for fasting glucose and random glucose. The ADA defines fasting as no caloric intake for at least 8 hours. Fasting plasma glucose results between 100 to 125 mg/dL indicate increased risk for diabetes (prediabetes). Fasting plasma glucose results greater than or equal to 126 mg/dL meet the criteria for diagnosis of diabetes. In the absence of unequivocal hyperglycemia, results should be confirmed by repeat testing. In a patient with classic symptoms of hyperglycemia or hyperglycemic crisis, random plasma glucose results greater than or equal to 200 mg/dL meet the criteria for diagnosis of diabetes. Reference: Standards of Medical Care in Diabetes 2016, [place] [employer]. Diabetes Care. 2016.39(Suppl 1). Performed By: #### 1 989-3 #### [facility] CLIA [id number] 1 [place] [address] [place] Potassium [Moles/Vol] 3.8 mmol/L Normal 3.7-5.1 [facility] Comment on above: Order Comment: Yo brothers Type: BLOOD SPECIMEN Ordering Facility: [facility] Address: [address] [id number] Performed By: #### 1 989-3 #### [facility] CLIA [id number] 1 [place] [address] [place] Protein [Mass/Vol] 6.4 g/dL Normal 6.3-8.0 [facility] Comment on above: Order Comment: Speci men Type: BLOOD SPECIMEN Ordering Facility: [facility] Address: [address] [address] Performed By: #### 1 989-3 #### [facility] CLIA [id number] [address] Sodium [Moles/Vol] 140 mmol/L Normal 136-144 [facility] Comment on above: Order Comment: Speci men Type: BLOOD SPECIMEN Ordering Facility: [facility] Address: [address] [address] Performed By: #### 1 989-3 #### [facility] CLIA [id number] [address] Urea nitrogen [Mass/Vol] 8 mg/dL Low 9-24 [facility] Comment on above: Order Comment: Speci men Type: BLOOD SPECIMEN Ordering Facility: [facility] Address: [address] [place] [address] Performed By: #### 1 989-3 #### [facility] CLIA [id number] [address] ED NOTEon 02-12-2023 ED NOTE HNO ID: [id number] Author: Gaby Carlisle RN Service: Nursing Author Type: Registered Nurse Type: ED Notes Filed: 02/11/2023 11:07 PM Note Text: Report called to [facility] for room 5265. No further questions at this time. Room ready, will send patient. [facility] ED NOTE HNO ID: [id number] Author: Gaby Carlisle RN Service: Nursing Author Type: Registered Nurse Type: ED Notes Filed: 02/11/2023 10:35 PM Note Text: RN attempted to call report. RN unavailable. [facility] ED NOTE HNO ID: [id number] Author: Gaby Carlisle RN Service: Nursing Author Type: Registered Nurse Type: ED Notes Filed: 02/11/2023 10:33 PM Note Text: MRI screening form filled and faxed. [facility] ED PROV NOTEon 02-12-2023 ED PROV NOTE HNO ID: [id number] Author: Julius Castellon MD Service: Emergency Medicine Author Type: Physician Type: ED Provider Notes Filed: 02/13/2023 9:00 PM Note Text: ED Provider Note Patient Name: Winston Mari : 1955 SERVICE DATE: 02/11/23 History Patient presents with: Trauma: Transfer from [facility]. Patient with L2 fracture after falling off roof 02/11 afternoon. C/O new left foot tingling intermittently since fall. GCS 15.-thinners -LOC -hit head Patient is a 68-year-old male who presents as a transfer from [facility]. Patient was on his roof when he fell off, 25 to 30 feet onto the ground. Patient did not lose consciousness. Patient states he landed on his legs and does not believe that he hit his head. Patient heard a crack in his back. Patient was taken to [facility] where he was found to have a new L2 fracture. Patient also has decreased sensation of left lower extremity. Patient's GCS is remained 15. Patient has remained alert and oriented. Patient is not on blood thinners. Patient tried to ambulate after the accident but could not secondary to the pain. Patient has fever, chills, chest pain, shortness of breath, dumping, nausea, vomiting, diarrhea History provided by: Patient and medical records PAST MEDICAL HISTORY Diagnosis Date Arthritis Epilepsy (HCC) High cholesterol Sciatica PAST SURGICAL HISTORY Procedure Laterality Date ARTHROSCOPY, HIP: W/LABRAL REPAIR Left 1973 BRAIN SURGERY HX OTHER ANEURYSM REPAIR 1983 [facility]- Dr. Simpson- Brain Aneurysm FAMILY HISTORY Problem Relation Age of Onset Cancer Mother Cancer Father Ischemic Heart Disease Brother Social History Tobacco Use Smoking status: Former Types: Cigarettes Quit date: 1997 Years since quittin.3 Smokeless tobacco: Never Tobacco comments: Quit 1998 Vaping Use Vaping Use: Never used Substance and Sexual Activity Alcohol use: No Comment: Quit 1986 Drug use: No Sexual activity: Never ALLERGIES Allergen Reactions Hydrocodone-Acetami* Rash Naproxen Rash Ultram [Tramadol Hc* GI Upset Review of Systems Constitutional: Negative for activity change, chills, fatigue and fever. HENT: Negative for congestion, rhinorrhea and sore throat. Eyes: Negative for pain and visual disturbance. Respiratory: Negative for cough, shortness of breath and wheezing. Cardiovascular: Negative for chest pain, palpitations and leg swelling. Gastrointestinal: Negative for abdominal pain, nausea and vomiting. Genitourinary: Negative for dysuria and hematuria. Musculoskeletal: Positive for back pain (low back pain) and gait problem (unable to ambulate 2/2 pain). Negative for arthralgias and myalgias. Skin: Negative for rash and wound. Neurological: Positive for numbness (LLE). Negative for syncope, weakness, light-headedness and headaches. Psychiatric/Behavioral: Negative for confusion and sleep disturbance. Physical Exam Vitals [02/11/232009] BP Pulse Temp Temp src Resp SpO2 Weight Height 144/98 55 36.7 ?C (98.1 ?F) Oral 17 98 % 68 kg (150 lb) 1.803 m (5' 11) Physical Exam Constitutional: General: He is not in acute distress. Appearance: Normal appearance. He is not ill-appearing. Interventions: Cervical collar in place. HENT: Head: Normocephalic and atraumatic. Nose: Nose normal. Mouth/Throat: Mouth: Mucous membranes are moist. Pharynx: Oropharynx is clear. No oropharyngeal exudate. Eyes: General: Right eye: No discharge. Left eye: No discharge. Extraocular Movements: Extraocular movements intact. Conjunctiva/sclera: Conjunctivae normal. Cardiovascular: Rate and Rhythm: Normal rate and regular rhythm. Pulses: Normal pulses. Radial pulses are 2+ on the right side and 2+ on the left side. Dorsalis pedis pulses are 2+ on the right side and 2+ on the left side. Heart sounds: Normal heart sounds. Pulmonary: Effort: Pulmonary effort is normal. No respiratory distress. Breath sounds: Normal breath sounds. No wheezing. Abdominal: General: Abdomen is flat. There is no distension. Palpations: Abdomen is soft. Tenderness: There is no abdominal tenderness. Musculoskeletal: General: No swelling or signs of injury. Normal range of motion. Cervical back: Normal range of motion. No rigidity, tenderness or bony tenderness. Thoracic back: No tenderness or bony tenderness. Normal range of motion. Lumbar back: Tenderness and bony tenderness present. Right lower leg: No edema. Left lower leg: No edema. Skin: General: Skin is warm and dry. Neurological: General: No focal deficit present. Mental Status: He is alert and oriented to person, place, and time. Mental status is at baseline. Sensory: Sensory deficit (decreased sensation to LLE) present. Motor: Weakness (mild decreased plantar and dorsiflexion of LLE) present. No tremor. Coordination: Coordination is intact. Psychiatric: Mood and Affect: Mood normal. Behavior: (more content not included)... Normal [facility] Ethanol SerPl-mCncon 023 Ethanol [Mass/Vol] mg/dL Normal <11 [facility] Comment on above: Order Comment: Speci men Type: BLOOD SPECIMEN Ordering Facility: [facility] Address: [address] [place], [place] [id number] Performed By: #### 5 643-2 #### [facility] CLIA [id number] [address] [place] [id number] [place] HISTORY PHYSICALon 3 HISTORY PHYSICAL HNO ID: [id number] Author: Shira Galarza DO Service: General Surgery Author Type: Resident Type: HANDP Filed: 02/11/2023 10:41 PM Note Text: ----- Attestation signed by Nawaf Cordero MD at 03/07/2023 4:20 PM Trauma Attending Note I have personally seen and evaluated this patient and participated in the clark components of this encounter. I discussed the management of this case with the surgery resident team and independently confirmed the findings and plan of care as documented either attached or in their separate note from today. Any corrections or additional notes are made as needed. I evaluated the patient on February 12, 2023 and 0815 am. Assessment and Plan: Winston Mari is a 68 year old male evaluated following a transfer for fall from ladder The patient was evaluated according to ATLS protocols. Injuries and diagnoses are notable for: Fall from ladder L2 fracture, Spine consult, MRI, TLSO PT/OT eval pending Spine recommendations Incidentals noted as well. Nawaf Cordero MD Delayed entry ----- TRAUMA SURGERY HANDP [facility] ARRIVAL DATE: 02/11/2023 ARRIVAL TIME: 21:30 CATEGORY: transfer INJURY DATE: 02/11/2023 INJURY TIME: this afternoon Subjective 68 year old male with no major PMH aside from DDD here as a trauma transfer after a fall from a roof. Patient states he was on top of his roof today cleaning his gutters. He leaned too far forward and fell about 10-15 feet off the roof. Landed on his feet. [place] and heard a large crack in his lower back and acute onset of low back pain. Denies hitting his head. Denies LOC. No blood thinners. Went to [facility]. CT HNCAPT completed showed acute L2 fracture. Upon assessment, he is complaining of new numbness and tingling in his toes, foot, levi, and thigh on the left in addition to difficulty moving his legs secondary to pain in his back, no complaints of focal weakness. HPI/CHIEF COMPLAINT: fall off roof BRIEF DESCRIPTION OF INJURIES: L2 fracture LAST FLUIDS/MEAL: unknown CODE STATUS: Not discussed ALLERGIES Allergen Reactions Hydrocodone-Acetami* Rash Naproxen Rash Ultram [Tramadol Hc* GI Upset (Not in a hospital admission) DATE OF LAST TETANUS: unknown There is no immunization history on file for this patient. PAST MEDICAL HISTORY Diagnosis Date Arthritis Epilepsy (HCC) High cholesterol Sciatica PAST SURGICAL HISTORY Procedure Laterality Date ARTHROSCOPY, HIP: W/LABRAL REPAIR Left 1973 BRAIN SURGERY HX OTHER ANEURYSM REPAIR 1983 [facility]- Dr. Simpson- Brain Aneurysm Social History Tobacco Use Smoking status: Former Types: Cigarettes Quit date: 1997 Years since quittin.3 Smokeless tobacco: Never Tobacco comments: Quit 1998 Vaping Use Vaping Use: Never used Substance Use Topics Alcohol use: No Comment: Quit 1986 Drug use: No FAMILY HISTORY Problem Relation Age of Onset Cancer Mother Cancer Father Ischemic Heart Disease Brother ROS: Is the patient having any pain? Yes low back pain Constitutional: Negative Eye/Ear/Nose: Negative Respiratory: Negative Cardiovascular: Negative GI/Liver/Biliary: Negative Genitourinary: Negative Psychiatric: Negative Neurologic: Negative Musculoskeletal: Negative Integument: Negative Endocrine: Negative Heme/Lymph: Negative Objective PRIMARY SURVEY AIRWAY: Patent BREATHING: equal chest excursion CIRCULATION: PT/DP 2+, Radials 2+, Femoral 2+ DISABILITY: Eye: 4=Spontaneous Verbal: 5=Oriented and Converses Motor: 6=Obeys Commands Total GCS: 15=4 Resp Rate: 10 to 29=4 Syst BP: > than 89=4 REVISED TRAUMA SCORE: 12 EXPOSE / ENVIRONMENT: Not Applicable PROCEDURES: None SECONDARY SURVEY VITALS: 02/11/23200902/11/23209902/11/23 2200 BP: 144/98 151/88 131/89 Pulse: 55 62 72 Resp: 17 15 17 Temp: 36.7 ?C (98.1 ?F) TempSrc: Oral SpO2: 98% 99% 98% Weight: 68 kg (150 lb) Height: 180.3 cm (5' 11) NEURO: Alert AND Oriented x 3, GCS 15, Cranial Nerves II-XII grossly Intact, Moves All Extremities, Strength Symmetrical, No Sensory Deficits. HEENT: Head: No lacerations or abrasions, no bony step-offs, midface stable to palpation. Eyes:conjunctiva/corneas without lesions Ears: Canals without blood or CSF drainage, external ears without lacerations. Nose: Septum midline, no crepitus with motion. Throat: Oral mucosa without lacerations, teeth in place, tongue without lacerations. NECK: No midline pain with palpation, no lacerations/wounds, trachea midline. RESPIRATORY: No abrasions or contusions, no crepitus, chest wall without ttp, equal excursion. Unlabored breathing on RA CARDIOVASCULAR: regular rate, good perfusion throughout ABDOMEN: Soft, non-distended, non-tender, no scars or lacerations, no rebound or (more content not included)... Normal [facility] Lipase SerPl-cCncon 02-13-20 23 Lipase [Catalytic activity/Vol] 84 U/L High 16-61 [facility] Comment on above: Order Comment: Speci men Type: BLOOD SPECIMEN Ordering Facility: [facility] Address: [place] [address] Performed By: #### 1 989-3 #### [id number] [address] [place] [id number] [place] MRI LUMBAR SPINE WO IVCONon 02-12-2023 MRI LUMBAR SPINE WO IVCON * * *Final Report* * * DATE OF EXAM: Feb 12 2023 8:07AM [facility]M 0303 - MRI LUMBAR SPINE WO IVCON / PROCEDURE REASON: Spine fracture, lumbar, traumatic * * * * Physician Interpretation * * * * EXAMINATION: MRI LUMBAR SPINE WO IVCON CLINICAL HISTORY: Spine fracture, lumbar, traumatic fall, low back pain. TECHNIQUE: Routine lumbosacral spine MR protocol without gadolinium. MQ: [id number] COMPARISON: Outside hospital CT lumbar spine from 02/11/2023. Report not available for review. RESULT: Counting reference: Lumbosacral junction. For the purposes of this report, L4-5 is considered the level of the iliac crest and assume there are 5 lumbar-type vertebrae. Anatomic variant: None. Alignment: No significant spondylolisthesis. Bone marrow signal/fracture: Acute fracture involving L2 vertebral body, with edema within anterior middle columns. Minimal edema within left pedicle. Mild vertebral body height loss. No significant retropulsion spinal canal. Question mild anterior longitudinal ligament injury. Posterior longitudinal ligament and ligamentum flavum appears intact. Acute fracture involving L4 vertebral body, with edema within the anterior and middle columns. Minimal edema within left L4 pedicle. Minimal vertebral body height loss. Conus: The conus is within normal limits of signal intensity and morphology. No evidence of epidural hematoma. Apparent T2 signal within distal thoracic spinal cord on localization sequences is most likely artifactual. Follow-up MRI of thoracic spine may be obtained, as clinically warranted. Paraspinal soft tissues: Multiple T2 hyperintense renal lesions bilaterally are not completely characterized but most likely represents renal cysts statistically. This can be confirmed with dedicated abdominal imaging. L1-L2: Minimal broad disc bulge. No significant neural foraminal stenosis. No significant spinal canal stenosis. L2-L3: Minimal broad disc bulge. Mild bilateral facet degenerative changes. No significant neural foraminal stenosis. No significant spinal canal stenosis. L3-L4: Mild intervertebral disc desiccation with mild broad disc bulge. Small central disc herniation. Mild bilateral facet degenerative changes. Mild bilateral neural foraminal stenosis. No significant spinal canal stenosis. L4-L5: Mild broad disc bulge extends into neural foramina bilaterally. Mild bilateral facet degenerative changes. Mild bilateral neural foraminal stenosis. No significant spinal canal stenosis. L5-S1: Intervertebral disc height throughout with posterior disc osteophyte complex extending into neural foramina bilaterally. Moderate bilateral neural foraminal stenosis. No significant spinal canal stenosis. IMPRESSION: Acute fracture involving L2 vertebral body, with minimal edema extending into left L2 pedicle, as detailed above. Mild vertebral body height loss, without significant retropulsion into the spinal canal. Question minimal anterior longitudinal ligament. No evidence of posterior longitudinal ligament injury or ligamentum flavum injury. Acute fracture involving L4 vertebral body, with mild edema extending to left L4 pedicle. Minimal vertebral body height loss. No significant retropulsion into the spinal canal. No evidence of epidural hematoma or significant spinal canal stenosis within lumbar spine. Apparent T2 signal within distal thoracic spinal cord on localization sequences is most likely artifactual (series 1 image 10). Follow-up MRI of thoracic spine may be obtained, as clinically warranted. Degenerative changes of lumbar spine, as detailed above. Anatomic Lumbar Variant: None. L4-5 is considered the level of the iliac crest and assume there are 5 lumbar-type vertebrae. 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: [facility] Transcribe Date/Time: Feb 12 2023 8:08A Dictated by : MISTI IRVIN MD This examination was interpreted and the report reviewed and electronically signed by: MISTI IRVIN MD on Feb 12 2023 8:25AM EST [id number] Normal [facility] PT panel Coag (PPP)on 2022 INR Coag (PPP) [Relative time] 1.0 {INR} Normal 0.9-1.3 [facility] Comment on above: Order Comment: Speci men Type: BLOOD SPECIMEN Ordering Facility: [facility] Address: [address], [place] [address] Result Comment: Ashley min K Antagonist (VKA) Therapeutic Range: INR 2 to 3 (Target INR of 2.5) Note: For patients treated with VKA drugs, such as warfarin, the [employer] 2012 Guideline recommends a therapeutic INR range of 2 to 3 (target INR of 2.5). This recommendation includes high-risk patients with antiphospholipid syndrome with previous arterial or venous thromboembolism, current-generation mechanical or bioprosthetic aortic heart valve replacement. Note: Patients with mechanical aortic valve replacement and additional risk factors for thromboembolic events (atrial fibrillation, previous thromboembolism, LV dysfunction, hypercoagulable conditions) or an older generation mechanical AVR (i.e., ball in-Cage) or any mechanical MVR should have a INR therapeutic range of 2.5 to 3.5 (target INR of 3). Emely GH, et al. Chest 2012, 141:7S-47S Kasie RA, et al. [facility] 2017, 70: 252-289 Performed By: #### 3 4528-0, 71217-1 #### [facility] CLIA [id number] [address] OF [facility] PT Coag (PPP) [Time] 10.9 s Normal 9.7-13.0 [facility] Comment on above: Order Comment: Speci men Type: BLOOD SPECIMEN Ordering Facility: [facility] Address: [address] [place] [address] Performed By: #### 3 4528-0, 32053-7 #### [facility] CLIA [id number] [address] THERAPY NTon 02-12-2023 THERAPY NT HNO ID: [id number] Author: ASIF Mckeon Service: Occupational Therapy Author Type: Occupational Therapist Type: Therapy (PT/OT/Speech/Resp) Filed: 02/12/2023 9:52 AM Note Text: OCCUPATIONAL THERAPY MISSED VISIT SERVICE DATE: 02/12/2023 SERVICE TIME: 951 to 951 ROOM: [place] [address] Patient not seen due to Hold: Clinical Appropriateness (Pending neurosurgery input. Will hold for now). SIGNATURE: ASIF Mckeon PATIENT NAME: Winston Mari DATE: February 12, 2023 TIME: 9:52 AM Normal [facility] THERAPY NT HNO ID: [id number] Author: Ileana Brooke, PT Service: Physical Therapy Author Type: Physical Therapist Type: Therapy (PT/OT/Speech/Resp) Filed: 02/12/2023 8:10 AM Note Text: PHYSICAL THERAPY MISSED VISIT SERVICE DATE: 02/12/2023 SERVICE TIME: 0810 to 0810 ROOM: [id number] ([facility]) Patient not seen due to Hold: Clinical Appropriateness (awaiting neurosurg consult and plan). SIGNATURE: Ileana Brooke PT PATIENT NAME: Winston Mari DATE: February 12, 2023 TIME: 8:10 AM Normal [facility] TOX SCREEN ROUT URon 023 Amphetamines Confirm (U) [Mass/Vol] Negative Normal Negative [facility] Comment on above: Order Comment: Speci men Type: BLOOD SPECIMEN Ordering Facility: [facility] Address: [address] [place] [address] Result Comment: Cuto ff threshold at 1000 ng/mL. Performed By: #### 1 989-3 #### [facility] CLIA [id number] [address] [place] [address] OF [facility] BARBITURATES, URINE Negative Normal Negative [facility] Comment on above: Order Comment: Speci men Type: BLOOD SPECIMEN Ordering Facility: [facility] Address: [address] [place] [address] Result Comment: Cuto ff threshold at 200 ng/mL. Performed By: #### 1 989-3 #### [facility] CLIA [id number] [address] [place] BENZODIAZEPINES, UR Negative Normal Negative [facility] Comment on above: Order Comment: Speci men Type: BLOOD SPECIMEN Ordering Facility: [facility] Address: [address] [place] [address] Result Comment: Cuto ff threshold at 200 ng/mL. Performed By: #### 1 989-3 #### [facility] CLIA [id number] [address] [place] [address] [place] CANNABINOIDS,URINE Positive Abnormal Negative [facility] Comment on above: Order Comment: Speci men Type: BLOOD SPECIMEN Ordering Facility: [facility] Address: [address] [place] [address] Result Comment: Cuto ff threshold at 50 ng/mL. Performed By: #### 1 989-3 #### [facility] CLIA [id number] [address] Cocaine Ql (U) Negative Normal Negative [facility] Comment on above: Order Comment: Speci men Type: BLOOD SPECIMEN Ordering Facility: [facility] Address: [address] [place] [address] Result Comment: Cuto ff threshold at 300 ng/mL. Performed By: #### 1 989-3 #### [facility] CLIA [id number] [address] Ethanol (U) [Mass/Vol] <11 Normal <11 [place] Comment on above: Order Comment: Speci men Type: BLOOD SPECIMEN Ordering Facility: [facility] Address: [address] [place] [address] Performed By: #### 1 989-3 #### [facility] CLIA [id number] [address] Opiates Screen Ql (U) Positive Abnormal Negative [facility] Comment on above: Order Comment: Speci men Type: BLOOD SPECIMEN Ordering Facility: [facility] Address: [address] [place] [address] Result Comment: Cuto ff threshold at 300 ng/mL. Performed By: #### 1 989-3 #### [facility] CLIA [id number] [address] oxyCODONE cutoff Screen (U) [Mass/Vol] Negative Normal Negative [facility] Comment on above: Order Comment: Speci men Type: BLOOD SPECIMEN Ordering Facility: [facility] Address: [address] [place] [address] Result Comment: Cuto ff threshold at 100 ng/mL. Performed By: #### 1 989-3 #### [facility] CLIA [id number] [address] Phencyclidine Ql (U) Negative Normal Negative [facility] Comment on above: Order Comment: Speci men Type: BLOOD SPECIMEN Ordering Facility: [facility] Address: [address] [place] [address] Result Comment: Cuto ff threshold at 25 ng/mL. Performed By: #### 1 989-3 #### [facility] CLIA [id number] [address] TYPE + SCREENon 02-12-2023 ABO O Normal [facility] Comment on above: Order Comment: Speci men Type: BLOOD SPECIMENOrdering Facility: [facility] Address: [address] [place] [address] Performed By: #### T SCR ####[facility] [id number] [address] HISTORICAL AB SCR STATUS Negative Normal [facility] Comment on above: Order Comment: Speci men Type: BLOOD SPECIMENOrdering Facility: [facility] Address: [address] [place] [address] Performed By: #### T SCR ####[facility]ANKCLIA [id number] [address] Rh Nom (Bld) Positive Normal [facility] Comment on above: Order Comment: Speci men Type: BLOOD SPECIMENOrdering Facility: [facility] Address: [address] [place] [address] Performed By: #### T SCR ####[facility] BANKCLIA [id number] [address] TYPE AND SCREEN EXPIRATION 02/14/2023 23:59 Normal [facility] Comment on above: Order Comment: Speci men Type: BLOOD SPECIMENOrdering Facility: [facility] Address: [address] [place] [address] Performed By: #### T SCR ####[facility] BLO[facility] BANKCLIA [id number] [address] [place] XR LUMBAR 2V FLEX/EXTon 01-21 XR LUMBAR 2V FLEX/EXT * * *Final Report* * * DATE OF EXAM: Feb 12 2023 1:16PM AKX [id number] - XR LUMBAR 2V FLEX/EXT / PROCEDURE REASON: Spine fracture, lumbar, traumatic * * * * Physician Interpretation * * * * EXAM TITLE: XR LUMBAR 2V FLEX/EXT DATE: 02/12/2023 INDICATION: Follow-up L2 and L4 compression deformity. COMPARISON: MRI dated 02/12/2023. Lateral flexion and extension views of lumbar spine show mild compression deformity superior endplate of L2 which has lost approximately 10-20% vertebral body height similar to prior MRI. Mild compression deformity of L4 which is lost approximately 10% vertebral body height. Remaining vertebral body heights are maintained. Moderate to severe intervertebral disc space narrowing noted at L4-5 and severe intervertebral disc space narrowing noted L5-S1. No abnormal subluxation with flexion and extension. Facet arthropathy noted L4-5 and L5-S1. Counting lumbar levels on this exam is based on L4-5 disc level as a reference level located at the top of the iliac crests. Assume 5 lumbar type vertebral bodies. IMPRESSION: No lumbar instability noted on these flexion and extension views. Compression deformities of L2 and L4 similar to prior MRI. 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 CLIA [id number] [address] [place] [id number] [place] Absolute lymphocyte countOrd ered By: Dr. Mari on 02-11-2023 Lymphocytes Auto (Unsp spec) [#/Vol] 1.64 10*3/uL 0.83-4.51 [facility] Basophil percentageOrdered B y: Dr. Mari on 02-11-2023 Basophil percentage 0 SEEN /hpf 0-5 [facility] Basophils/100 WBC (Bld) 0.7 % 0-1 [facility] Bilirubin [Mass/Vol] 0.80 mg/dL 0.20-1.00 [facility] Comment on above: For patients on eltr ombopag therapy, use of Dimension [place] TBIL is not recommended. Chloride [Moles/Vol] 110 mmol/L 98-107 [facility] Eosinophils/100 WBC (Bld) 2.6 % 0-5 [facility] Glucose [Mass/Vol] 103 mg/dL 74-106 [facility] Comment on above: Fasting Glucose resu lt from 100 to 125 mg/dL suggests IMPAIRED HOMEOSTASIS per A.D.A. criteria. Neutrophils (Bld) [#/Vol] 5.8 10*3/uL 2.0-7.7 [facility] Neutrophils/100 WBC (Bld) 69.1 % 47-70 [facility] Potassium [Moles/Vol] 4.0 mmol/L 3.5-5.1 [facility] Comment on above: Slight Hemolysis, Re sult may be falsely increased. Protein [Mass/Vol] 6.6 g/dL 6.4-8.2 [facility] Sodium [Moles/Vol] 137 mmol/L 136-145 [facility] WBC (Bld) [#/Vol] 8.4 10*3/uL 4.4-11.0 [facility] Bilirubin Test strip Ql (U)O rdered By: Dr. Mari on 02-11-2023 Bilirubin Ql (U) Negative Negative [facility] Blood erythrocytes count (nu mber/volume)Ordered By: Dr. Mari on 02-11-2023 RBC (Bld) [#/Vol] 4.10 10*6/uL 4.6-6.2 [facility] Blood hemoglobin measurement (mass/volume)Ordered By: Dr. Mari on 02-11-2023 Hemoglobin (Bld) [Mass/Vol] 12.6 g/dL 13.0-16.5 [facility] Blood lymphocytes/100 leukoc ytesOrdered By: Dr. Mari on 02-11-2023 Lymphocytes/100 WBC (Bld) 19.5 % 19-41 [facility] Blood monocytes/100 leukocyt esOrdered By: Dr. Mari on 02-11-2023 Monocytes/100 WBC (Bld) 6.8 % 0-10 [facility] Blood platelet mean volumeOr dered By: Dr. Mari on 02-11-2023 Platelet mean volume (Bld) [Entitic vol] 9.0 fL 6.2-12.0 [facility] Determination of erythrocyte mean corpuscular volume (MCV)Ordered By: Dr. Mari on 02-11-2023 MCV (RBC) [Entitic vol] 91.7 fL 80-94 [facility] ED NOTEon 02-11-2023 ED NOTE HNO ID: [id number] Author: Gaby Carlisle RN Service: Nursing Author Type: Registered Nurse Type: ED Notes Filed: 02/11/2023 9:28 PM Note Text: Trauma at bedside. [facility] ED NOTE HNO ID: [id number] Author: Gaby Carlisle RN Service: Nursing Author Type: Registered Nurse Type: ED Notes Filed: 02/11/2023 8:10 PM Note Text: Patient arrives via EMS with C-collar in place. [facility] ED NOTE HNO ID: [id number] Author: Gaby Carlisle RN Service: Nursing Author Type: Registered Nurse Type: ED Notes Filed: 02/11/2023 8:09 PM Note Text: Patient placed on lunchroom monitor for clinical monitoring. [facility] ED NOTE HNO ID: [id number] Author: Mara Calvin RN Service: ? Author Type: Registered Nurse Type: ED Notes Filed: 02/11/2023 8:05 PM Note Text: Bed: 43-ED Expected date: Expected time: Means of arrival: Comments: [place] [facility] ED PROV NOTEon 02-11-2023 ED PROV NOTE HNO ID: [id number] Author: Julius Castellon MD Service: Emergency Medicine Author Type: Physician Type: ED Provider Notes Filed: 02/12/2023 1:00 AM Note Text: Attending Note I evaluated the patient and personally participated in the clark components. I agree with the residents findings and plan as documented except where my note differs, and I discussed the case and management of the patient's care with the resident. Patient transferred from [facility] for L2 fracture. Around 1 PM he fell off the roof and he said he landed on his left lower extremity. He was unable to get up due to his excruciating pain in his left lower extremity and his back. He had evaluation at [facility] which found L2 fracture. Denies headache. Has intermittent tingling in the left lower extremity which she says goes away when he wiggles around. Exam Sitting upright watching TV nontoxic no distress. His pupils are equal round reactive to light. Oropharynx pink moist clear. Heart regular rate rhythm without murmurs or rubs or gallops. Lungs are clear to auscultation without wheezes rhonchi crackles. Abdomen soft nontender nondistended without organomegaly S. He does have tenderness of the left pelvis and hip area on down through the left thigh to the knee without deformity or edema. Good pulses in all 4 extremities. Decreased sensation in the left lower extremity to light touch as well as poor ability to distinguish sharp sensation. All sensation feels dull in the left lower extremity. He does have mild weakness of plantarflexion dorsiflexion of the left lower extremity and it is associated with pain. JULIUS CASTELLON 02/12/23 0100 Normal [facility] Hematocrit Auto (Bld) [Volum e fraction]Ordered By: Dr. Mari on 02-11-2023 Hematocrit (Bld) [Volume fraction] 37.6 % 40-54 [facility] INR in Blood by Coagulation assayOrdered By: Dr. Mari on 02-11-2023 INR Coag (Bld) [Relative time] 1.2 {INR} [facility] Ketones Test strip Ql (U)Ord ered By: Dr. Mari on 02-11-2023 Ketones Ql (U) Negative Negative [facility] Laboratory - Chemistry and C hemistry - challengeOrdered By: Dr. Mari on 02-11-2023 ALP [Catalytic activity/Vol] 78 U/L 45-117 [facility] ALT [Catalytic activity/Vol] 27 U/L 16-61 [facility] CO2 [Moles/Vol] 25.0 mmol/L 21.0-32.0 [facility] Globulin (S) [Mass/Vol] 3.3 g/dL 2.2-4.2 [facility] Lipase [Catalytic activity/Vol] 24 U/L 13-75 [facility] Comment on above: Please note:LIPASE r evised reference range effective 23. New Lipase methodology. Expected to produce lower values than the previous assay method. NEW Reference Range: 13 - 75 U/L Urea nitrogen/Creatinine [Mass ratio] 12.2 mg/mg 10-20 [facility] Laboratory - CoagulationOrde red By: Dr. Mari on 02-11-2023 aPTT Coag (Bld) [Time] 31.9 s 24.1-36.2 [facility] PT Coag (PPP) [Time] 14.4 s 11.7-14.9 [facility] Laboratory - Hematology and Cell countsOrdered By: Dr. Mari on 02-11-2023 Erythrocyte distribution width (RBC) [Entitic vol] 46.7 fL 35.1-43.9 [facility] Erythrocyte distribution width (RBC) [Ratio] 13.8 % 11.6-14.6 [facility] Immature granulocytes/100 WBC (Bld) 1.300 % 0.0-0.9 [facility] Comment on above: IG% - Immature Granu locytes (promyelocytes, myelocytes and metamyelocytes) > 1% indicates that a LEFT SHIFT is Present. MCH (RBC) [Entitic mass] 30.7 pg 27.0-32.0 [facility] Nucleated RBC/100 WBC (Bld) [Ratio] 0 % 0-5 [facility] MCHC Auto (RBC) [Mass/Vol]Or dered By: Dr. Mari on 02-11-2023 MCHC (RBC) [Mass/Vol] 33.5 g/dL 32-36 [facility] Mucus LM Ql (Urine sed)Order ed By: Dr. Mari on 02-11-2023 Mucus Ql (Urine sed) 0 SEEN /hpf [facility] Nitrite Test strip Ql (U)Ord ered By: Dr. Mari on 02-11-2023 Nitrite Ql (U) Negative Negative [facility] No Panel InformationOrdered By: Dr. Mari on 02-11-2023 Estimated Creatinine Clearance Calc 75.79 ml/min [facility] Estimated GFR (MDRD) Amer 97 mL/min >60 [facility] Comment on above: GFR Calc Estimated GFR (MDRD) Non-Af Amer 80 mL/min >60 [facility] Comment on above: Non- GFR Calc Ethyl Alcohol Level < 3.0 mg/dL [facility] Comment on above: The serum:whole bloo d ethanol ratio is approximately 1.14and varies slightly with hematocrit. Medical Alcohol reference interval and critical value innon-tolerant individuals; 50 - 100 Impairment 100 Intoxication 100 - 250 Severe Poisoning 250 - 400 Deep/possible fatal coma Platelets bldOrdered By: Dr. Mari on 02-11-2023 Platelets (Bld) [#/Vol] 324 10*3/uL 150-450 [facility] Protein Test strip Ql (U)Ord ered By: Dr. Mari on 02-11-2023 Protein Ql (U) Negative Negative [facility] Serum or plasma albumin doug urement (mass/volume)Ordered By: Dr. Mari on 02-11-2023 Albumin [Mass/Vol] 3.3 g/dL 3.2-5.0 [facility] Serum or plasma albumin/glob ulin mass ratioOrdered By: Dr. Mari on 02-11-2023 Albumin/Globulin [Mass ratio] 1.0 {ratio} 0.9-2.4 [facility] Serum or plasma calcium doug urement (mass/volume)Ordered By: Dr. Mari on 02-11-2023 Calcium [Mass/Vol] 9.0 mg/dL 8.5-10.1 [facility] Serum or plasma creatinine m easurement (mass/volume)Ordered By: Dr. Mari on 02-11-2023 Creatinine [Mass/Vol] 0.99 mg/dL 0.70-1.30 [facility] Comment on above: The validity of the calculated GFR & GFRAA in patients over 70 years has not been determined. Clinical correlation is essential. Serum or plasma urea nitroge n measurement (mass/volume)Ordered By: Dr. Mari on 02-11-2023 Urea nitrogen [Mass/Vol] 12 mg/dL 7-18 [facility] Squamous epithelial cells de tection in urine sediment by light microscopyOrdered By: Dr. Mari on 02-11-2023 Epithelial cells.squamous LM Ql (Urine sed) 0 SEEN /hpf 0-5 [facility] Thin prep Papanicolaou smear with manual screeningOrdered By: Dr. Mari on 02-11-2023 Thin prep Papanicolaou smear with manual screening 26 U/L 15-37 [facility] Comment on above: Slight Hemolysis, Re sult may be falsely increased. Thin prep Papanicolaou smear with manual screening 2 5-15 [facility] Urine blood detectionOrdered By: Dr. Mari on 02-11-2023 RBC Ql (U) 10 /ul Negative [facility] RBC Ql (U) 0 SEEN /hpf 0-5 [facility] Urine clarityOrdered By: Dr. Mari on 02-11-2023 Clarity (U) Clear Clear [facility] Urine color determinationOrd ered By: Dr. Mari on 02-11-2023 Color (U) Yellow Yellow [facility] Urine glucose detectionOrder ed By: Dr. Mari on 02-11-2023 Glucose Ql (U) Normal mg/dl Normal [facility] Urine leukocyte esterase det ection by dipstickOrdered By: Dr. Mari on 02-11-2023 Leukocyte esterase Test strip Ql (U) Negative Negative [facility] Urine pHOrdered By: Dr. Kathya guzmán on 02-11-2023 pH (U) 8.0 [pH] 5.0 - 8.0 [facility] Urine sediment bacteria coun t by microscopy (number/high power field)Ordered By: Dr. Mari on 02-11-2023 Bacteria LM.HPF (Urine sed) [#/Area] 0 /[HPF] None Seen [facility] Urine specific gravity measu rementOrdered By: Dr. Mari on 02-11-2023 Specific gravity (U) [Rel density] 1.010 1.002-1.03 0 [facility] Urobilinogen Auto test strip Ql (U)Ordered By: Dr. Mari on 02-11-2023 Urobilinogen Ql (U) Normal mg/dl Normal [facility] BD BONE DENSITY DEXA AXIAL S KELETONon 12-15-2022 BD BONE DENSITY DEXA AXIAL SKELETON ORIGINAL EXAMINATION: BONE DENSITOMETRY 12/15/2022 1:58 pm TECHNIQUE: A bone density dual x-ray absorptiometry (DEXA) scan was performed of the lumbar spine and right hip. COMPARISON: None. HISTORY: ORDERING SYSTEM PROVIDED HISTORY: Reason for Exam: Osteoporosis Screening FINDINGS: T Score Right Femoral Neck: -2.0 Right Femoral Neck: 0.655 (g/cm2) T Score Right Hip: -1.3 Right Hip: 0.842 (g/cm2) T Score Lumbar Spine: -1.8 Lumbar Spine: 0.897 (g/cmd2) IMPRESSION: Osteopenia by WHO criteria. *By the World Health Organization criteria: (Comparing with young normal sex matched population) - Normal: T-score at or above -1 SD (standard deviation) - Osteopenia: T-score between -1 and -2.5 SD - Osteoporosis: T-score at or below -2.5 SD Interpreted by: Hamilton Almeida DO Preliminary Report By: Hamilton Almeida DO Electronically signed By Hamilton Almeida DO Dictated Date: 12/15/2022 4:33:40 PM Prelim Date: 12/15/2022 4:34:29 PM Sign Date: 12/15/2022 4:34:29 PM Ordering Provider: EUGENIO Vickers [facility] ([place]) CNOVon 09-19-2022 [facility] Office Visit (GENSWS ) ----- WINSTON MARI ([id number]) 1955 M Date Time Provider Department 09/19/22 3:30 PM HUBERT JETT GENSWS During your visit today, we recorded the following information about you: Temperature Pulse Blood pressure Weight 98.5 degrees 88/minute 128/74 71.7 kg Height 1.803 m Ana Maria PadillaUNRULY 09/19/2022 4:10 PM Signed REVIEW OF SYSTEMS: General: The patient notes fatigue, notes weight loss, denies weight gain, denies feeling hot, and denies feelings of cold. Eyes: The patient denies glaucoma, denies eye injury/surgery, wears glasses or contacts. Ear/Nose/Throat: The patient notes allergies, denies hayfever, denies ear infections, and denies bloody noses. Cardiovascular: The patient denies chest pain, denies heart disease, denies high blood pressure,denies cardiac stent, denies prior heart attack, denies irregular heart beat, denies high cholesterol, notes poor circulation, denies heart failure, other cardiac issues, denies claudication, denies cold feet, denies peripheral arterial stent. Respiratory: The patient denies tuberculosis, denies pneumonia, denies frequent cough, denies pulmonary embolism, denies shortness of breath, and denies coughing up blood. Gastrointestinal: The patient denies difficulty swallowing, denies acid reflux, denies ulcers, denies vomiting, denies jaundice/hepatitis, denies gallbladder problems, denies black or tarry stools, notes hemorrhoids, notes bleeding from rectum, denies diverticulitis, denies constipation, denies diarrhea, denies loss of stool control, and denies hernias. Kidney/Bladder: The patient notes kidney stones, denies urine infections, and denies bloody urine. Skin: The patient denies a history of skin cancer, denies bleeding/changing moles, and denies a history of skin rash. Neurologic: The patient notes a history of epilepsy/convulsions, denies headaches, denies head/spinal injuries, and denies stroke/TIA. Psychiatric: The patient denies psychiatric medications, denies depression, and denies voices, denies substance abuse. Endocrine: The patient denies thyroid disorders, denies diabetes, and notes hormonal problems. Hematologic: The patient denies a history of bruising, denies bleeding, and denies anemia, denies blood clots. Infections: The patient denies a history of measles and mumps, denies rheumatic fever, and denies sexually transmitted diseases. Musculoskeletal: The patient notes back pain/injury, notes back problems, notes sciatica, notes knee/foot trouble, notes arthritis, or NOTES gout. When was patient's last Mammogram screening? N/A Last Colonoscopy: 1988 UNRULY Hill MD 09/19/2022 5:00 PM Signed The following instructions are important for you related to your office visit today with the [facility] General Surgeons. INSTRUCTIONS FOR AN ANAL FISSURE You have an anal fissure. An anal fissure is a small tear at at the edge of the anus. It is usually caused by straining with bowel movements, but sometime it occurs during periods of loose stools or diarrhea. 70% of the time, anal fissures will heal will regulation of the stools and conservative measures. Regulation of the bowel habits is most important - The fissure will not heal if there is continued straining. I usually recommend fiber for initial regularion. Add Miralax - now available over the counter, if fiber alone isn't helping the constipation. Healing of the fissure will not occur until bowel regulation is achieved I recommend that you avoid spicy foods and perform sitz baths three to four times per day and after bovel movements. A sitz bath is drawing luke warm water in the bathtub and soaking. The purpose is to relax the sphincter and rinse the anal area. DO NOT ADD EPSOM SALTS OR OTHER INGREDIENTS THIS CAN INCREASE THE BURNING. I will recommend a topical pain ointment, usually dibucaine or proctocream With each bowel movement, I recommend placing the topcial pain ointment prior to the bowel movements and use baby wipes and perform a sitz bath after each bowel movement. Dibucaine can be used between times as needed for anal pain. It the above measures are not helping within one week, call the office, and we may prescribe Diltiazem ointment. ( this is different from Dibucaine). If prescribed, it should be applied to the anal area twice a day. If you note any difficulties or concerns, you should contact our office immediately. If you note any additional difficulties, questions, or concerns, you should contact our office immediately @ [phone] and ask to be transferred to the General Surgery department. Hubert Jett MD 09/20/2022 6:52 AM Signed HISTORY AND PHYSICAL Winston Mari 1955 REFERRING PHYSICIAN: Eugenio Mayen IV, MD CHIEF COMPLAINT: Anal Pain HPI: Winston henriquez (more content not included)... Normal [facility] LABORATORYOrdered By: Maddie Currie on 09-04-2022 Basophil, Absolute 0.0 103/mcL Invalid Interpretation Code 0.0 - 0.2 10^3/mcL AO Workflow SS Basophils/100 WBC (Bld) 0.5 % Invalid Interpretation Code 0.0 - 2.5 % AO Workflow SS Eosinophil, Absolute 0.2 103/mcL Invalid Interpretation Code 0.0 - 0.4 10^3/mcL AO Workflow SS Eosinophils/100 WBC (Bld) 3.3 % Invalid Interpretation Code 0.0 - 7.0 % AO Workflow SS Erythrocyte distribution width (RBC) [Ratio] 14.4 % Invalid Interpretation Code 11.5 - 14.5 % AO Workflow SS Hematocrit (Bld) [Volume fraction] 38.5 % Invalid Interpretation Code 42.0 - 52.0 % AO Workflow SS Hemoglobin (Bld) [Mass/Vol] 13.3 G/dL Invalid Interpretation Code 14.0 - 18.0 G/dL AO Workflow SS Lymphocyte, Absolute 1.5 103/mcL Invalid Interpretation Code 0.8 - 3.9 10^3/mcL AO Workflow SS Lymphocytes/100 WBC (Bld) 21.9 % Invalid Interpretation Code 10.0 - 50.0 % AO Workflow SS MCH (RBC) [Entitic mass] 29.8 pg Invalid Interpretation Code 27.0 - 31.2 pg AO Workflow SS MCHC 34.4 G/dL Invalid Interpretation Code 31.8 - 35.4 G/dL AO Workflow SS MCV (RBC) [Entitic vol] 86.5 fL Invalid Interpretation Code 80.0 - 94.0 fL AO Workflow SS Monocyte, Absolute 0.6 103/mcL Invalid Interpretation Code 0.2 - 1.0 10^3/mcL AO Workflow SS Monocytes/100 WBC (Bld) 8.7 % Invalid Interpretation Code 1.7 - 13.0 % AO Workflow SS Neutrophil, Absolute 4.5 103/mcL Invalid Interpretation Code 2.9 - 6.2 10^3/mcL AO Workflow SS Neutrophils/100 WBC (Bld) 65.6 % Invalid Interpretation Code 37.0 - 80.0 % AO Workflow SS Platelet mean volume (Bld) [Entitic vol] 6.8 fL Invalid Interpretation Code 7.4 - 10.4 fL AO Workflow SS Platelets (Bld) [#/Vol] 381 103/mcL Invalid Interpretation Code 130 - 400 10^3/mcL AO Workflow SS RBC (Bld) [#/Vol] 4.45 106/mcL Invalid Interpretation Code 4.04 - 6.13 10^6/mcL AO Workflow SS WBC (Bld) [#/Vol] 6.9 103/mcL Invalid Interpretation Code 4.6 - 10.8 10^3/mcL AO Workflow SS LABORATORYOrdered By: Brynn Ryan on 09-04-2022 Calcium [Mass/Vol] 9.4 mg/dL Invalid Interpretation Code 8.4 - 10.2 mg/dL AO ADM SS Chloride [Moles/Vol] 104 mmol/L Invalid Interpretation Code 98 - 107 mmol/L AO ADM SS CO2 [Moles/Vol] 28 mmol/L Invalid Interpretation Code 23 - 31 mmol/L AO ADM SS Creatinine [Mass/Vol] 1.12 mg/dL Invalid Interpretation Code 0.70 - 1.30 mg/dL AO ADM SS Electrolyte Balance 6.0 mEq/L Invalid Interpretation Code 4.0 - 15.0 mEq/L AO ADM SS Glucose [Mass/Vol] 81 mg/dL Invalid Interpretation Code 80 - 115 mg/dL AO ADM SS Potassium [Moles/Vol] 4.9 mmol/L Invalid Interpretation Code 3.5 - 5.1 mmol/L AO ADM SS Sodium [Moles/Vol] 138 mmol/L Invalid Interpretation Code 136 - 145 mmol/L AO ADM SS Urea nitrogen [Mass/Vol] 18 mg/dL Invalid Interpretation Code 7 - 18 mg/dL AO ADM SS Urea nitrogen/Creatinine [Mass ratio] 16 ratio Invalid Interpretation Code 7 -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 [address]165 Creatinine [Mass/Vol] 1.07 mg/dL Normal 0.70 - 1.30 [facility] Comment on above: Performed By: #### 2 03674 #### [facility],[address] [place] [address] GFR/1.73 sq M.predicted among non-blacks MDRD (S/P/Bld) [Vol rate/Area] mL/min/{1.73_m2} Normal 60 - 999 [facility] Comment on above: Performed By: #### 2 31072 #### [facility],[address] [place] [address] Result Comment: ACCO RDING TO THE NATIONAL KIDNEY DISEASE EDUCATION PROGRAM(NKDE), A NORMAL eGFR IS A VALUE GREATER THAN OR EQUAL TO 60 ML/MIN/1.73 SQ METERS. CHRONIC KIDNEY DISEASE: <60mL/MIN/1.73 SQ METERS KIDNEY FAILURE: <15mL/MIN/1.73 SQ METERS THIS TEST SHOULD ONLY BE USED FOR PATIENTS 18 YEARS OF AGE AND OLDER. Globulin (S) [Mass/Vol] 3.3 g/dL Normal 1.5 - 3.8 [facility] [facility] Comment on above: Performed By: #### 2 [id number] #### [address] [address] Glucose [Mass/Vol] 115 mg/dL High 74 - 106 [facility] Comment on above: Performed By: #### 2 03625 #### [address] [address] Potassium [Moles/Vol] 4.1 mmol/L Normal 3.5 - 5.1 [facility] Comment on above: Performed By: #### 2 92842 #### [address] [address] Protein [Mass/Vol] 6.5 g/dL Normal 6.4 - 8.2 [facility] Comment on above: Performed By: #### 2 72852 #### [address] [address] Sodium [Moles/Vol] 139 mmol/L Normal 136 - 145 [facility] Comment on above: Performed By: #### 2 93475 #### [address] [address] Urea nitrogen [Mass/Vol] 16 mg/dL Normal 7 - 18 [facility] Comment on above: Performed By: #### 2 [id number] #### [facility],[address] [place], [place] [id number] CT BRAIN W/O CONTRASTon 06-0 CT BRAIN W/O CONTRAST [address] [address] Patient: LIAM MARI Phone#: : 1955 Age: 67 Gender: M Pt. Type: ER Account: [id number] Location: [facility] Ordering: NAWAF TOUSSAINT Exam Date: 03/26/2022/13:47 Family Phys: Charge Code: [id number] Physician: [place] Order #: [id number] DLP Dose#: 52.30 PROCEDURE: CT BRAIN WITHOUT CONTRAST COMPARISON: None. INDICATIONS: Trauma. TECHNIQUE: CT images were obtained without contrast material. All CT scans at this facility use dose modulation, iterative reconstruction, and/or weight based dosing when appropriate to reduce radiation dose to as low as reasonably achievable. IV CONTRAST: No IV contrast used,0ml TOTAL DOSE: 52.30 CTDIvol(mGy) FINDINGS: CEREBRUM: Age-appropriate atrophy is present, without visible acute hemorrhage or lesion. CEREBELLUM: No edema, hemorrhage, mass, acute infarction, or inappropriate atrophy. BRAINSTEM: No edema, hemorrhage, mass, acute infarction, or inappropriate atrophy. CSF SPACES: Ventricles, cisterns, and sulci are appropriate for age. No hydrocephalus, subarachnoid hemorrhage, or mass. SKULL: There has been previous left posterior parietal craniotomy. SINUSES: Mild mucosal thickening is present in the right maxillary sinus. ORBITS: Limited views are unremarkable. OTHER: Negative. CONCLUSION: 1. There is no evidence of acute intracranial abnormality. Dictated by: Albertina Casanova MD on 03/26/2022 at 18:35 Approved by: Albertina Casanova MD on 03/26/2022 at 18:36 Normal [facility] CT CERVICAL W/O CONTRASTon 0 03-26-2022 CT CERVICAL W/O CONTRAST [place] [address] Patient: LIAM MARI Phone#: : 1955 Age: 67 Gender: M Pt. Type: ER Account: [id number] Location: 052 Ordering: [facility] Exam Date: 03/26/202213:47 Family Phys: Charge Code: [id number] Physician: [place] Order #: [id number] DLP Dose#: 12.40 PROCEDURE: CT CERVICAL WITHOUT CONTRAST COMPARISON: None. INDICATIONS: Trauma. TECHNIQUE: Multi-planar CT images were created without intravenous contrast. All CT scans at this facility use dose modulation, iterative reconstruction, and/or weight based dosing when appropriate to reduce radiation dose to as low as reasonably achievable. IV CONTRAST: No IV contrast used,0ml TOTAL DOSE: 12.40 CTDIvol(mGy) FINDINGS: CRANIOCERVICAL AREA: Normal foramen magnum with no Chiari malformation. PARASPINAL AREA: Normal with no visible mass. BONES: Multilevel degenerative changes present. CERVICAL DISC LEVELS: C2-C3: No significant disc/facet abnormality, spinal stenosis, or foraminal stenosis. C3-C4: No significant disc/facet abnormality, spinal stenosis, or foraminal stenosis. C4-C5: Disc space narrowing is present. There is bony hypertrophy with foraminal narrowing bilaterally. C5-C6: Disc space narrowing is present. There is bony hypertrophy with foraminal narrowing bilaterally. C6-C7: Disc space narrowing is present. There is bony hypertrophy with foraminal narrowing bilaterally. C7-T1: Bony hypertrophy is present with narrowing of the foramina bilaterally. CONCLUSION: 1. Multilevel degenerative changes present with foraminal narrowing bilaterally. Continued Report - Page 2 of 2 Patient: LIAM MARI Phone#: : 1955 Age: 67 Gender: M Pt. Type: ER Account: [id number] Location: 052 Ordering: [facility] Exam Date: 03/26/2022/13:47 Family Phys: Charge Code: [id number] Physician: [place] Order #: [id number] DLP Dose#: 12.40 2. There is no evidence of acute fracture or subluxation. Dictated by: Albertina Casanova MD on 03/26/2022 at 18:33 Approved by: Albertina Casanova MD on 03/26/2022 at 18:35 Normal [facility] CT CHEST/ABD/PELVIS C+on CT CHEST/ABD/PELVIS C+ [place] [address] [place], [place] [address] Patient: LIAM MARI Phone#: : 1955 Age: 67 Gender: M Pt. Type: ER Account: [id number] Location: 052 Ordering: NAWAF TOUSSAINT Exam Date: 03/26/2022/13:51 Family Phys: Charge Code: [id number] Physician: [place] Order #: [id number] DLP Dose#: 16.70 PROCEDURE: CT CHEST/ABD/PELVIS W COMPARISON: None. INDICATIONS: Trauma. TECHNIQUE: After obtaining the patient's consent, CT images were obtained with intravenous contrast material. All CT scans at this facility use dose modulation, iterative reconstruction, and/or weight based dosing when appropriate to reduce radiation dose to as low as reasonably achievable. IV CONTRAST: Omnipaque 350,80ml CHEST DOSE: 5.30 CTDIvol(mGy) ABDOMEN DOSE: 11.40 CTDIvol(mGy) FINDINGS: LUNGS: Normal. No visible pulmonary disease. VASCULATURE: Normal. No visible pulmonary arterial thrombus or attenuation. PATTI: Normal. No mass or adenopathy. MEDIASTINUM: Normal. No mass or adenopathy. CARDIAC: Normal. No enlargement, pericardial thickening, or significant calcification. PLEURA: Normal. No mass or effusion. CHEST WALL: Normal. No mass or axillary adenopathy. LIVER: Normal. No enlargement, atrophy, abnormal density, or significant focal lesion. BILIARY: Normal. No visible dilatation or calcification. PANCREAS: Normal. No lesion, fluid collection, ductal dilatation, or atrophy. SPLEEN: Normal. No enlargement or focal lesion. KIDNEYS: Normal. No mass, obstruction, or calcification. ADRENALS: Normal. No mass or enlargement. AORTA/VASCULAR: Normal. No aneurysm or dissection. Continued Report - Page 2 of 2 Patient: LIAM MARI Phone#: : 1955 Age: 67 Gender: M Pt. Type: ER Account: [id number] Location: 052 Ordering: [facility] Exam Date: 03/26/2022/13:51 Family Phys: Charge Code: [id number] Physician: [place] Order #: [id number] DLP Dose#: 16.70 RETROPERITONEUM: Normal. No mass or adenopathy. BOWEL/MESENTERY: Nonspecific fluid-filled small bowel is present. ABDOMINAL WALL: Normal. No mass or hernia. URINARY BLADDER: Normal. No visible focal wall thickening, lesion, or calculus. PELVIC NODES: Normal. No adenopathy. PELVIC ORGANS: The prostate impresses on the base of bladder and measures 5.3 x 5.6 x 4.3 centimeters. BONES: Degenerative changes of the spine are present. There is minimal deformity at the left femoral neck consistent with remote trauma versus surgery. No bony lesion or fracture. OTHER: Negative. CONCLUSION: 1. There is no evidence of solid organ injury. 2. There is no evidence of acute bone abnormality. Dictated by: Albertina Casanova MD on 03/26/2022 at 18:36 Approved by: Albertina Casanova MD on 03/26/2022 at 18:41 Normal [facility] KNEE COMPLETE LT MIN 4 VIEWS on 03-26-2022 KNEE COMPLETE LT MIN 4 VIEWS [place] [address] Patient: LIAM MARI Phone#: : 1955 Age: 67 Gender: M Pt. Type: ER Account: [id number] Location: 052 Ordering: [facility] Exam Date: 03/26/2022/17:06 Family Phys: EUGENIO MAYEN Charge Code: [id number] Physician: [place] Order #: [id number] DLP Dose#: PROCEDURE: X-RAY KNEE LT COMPLETE 4 VIEWS COMPARISON: [facility], XR, KNEE COMPLETE LT MIN 4 VIEWS, 04/21/2018, 14:08. INDICATIONS: Trauma. FINDINGS: BONES: Normal. No significant arthropathy or acute abnormality. SOFT TISSUES: Negative. No visible soft tissue swelling. EFFUSION: None visible. OTHER: Negative. CONCLUSION: No acute disease. Dictated by: Albertina Casanova MD on 03/26/2022 at 18:07 Approved by: Albertina Casanova MD on 03/26/2022 at 18:08 Normal [facility] No Panel Informationon 03-08 Culture Urine No growth at 48 hours. [facility] Work Phone: Absolute lymphocyte counton 01-12-2022 Lymphocytes Auto (Unsp spec) [#/Vol] 1.45 10*3/uL 0.83-4.51 [facility] Work Phone: Amorphous sediment detection in urine sediment by light microscopyon 01-12-2022 Amorphous sediment LM Ql (Urine sed) 1+ URATE [facility] Work Phone: Basophil percentageon 2021 Basophil percentage 10-25 SEEN /hpf 0-5 [facility] Work Phone: Basophils/100 WBC (Bld) 1.0 % 0-1 [facility] Work Phone: Chloride [Moles/Vol] 104 mmol/L 98-107 [facility] Work Phone: Eosinophils/100 WBC (Bld) 1.9 % 0-5 [facility] Work Phone: Glucose [Mass/Vol] 104 mg/dL 74-106 [facility] Work Phone: Comment on above: Fasting Glucose resu lt from 100 to 125 mg/dL suggests IMPAIRED HOMEOSTASIS per A.D.A. criteria. Neutrophils (Bld) [#/Vol] 3.9 10*3/uL 2.0-7.7 [facility] Work Phone: Neutrophils/100 WBC (Bld) 62.7 % 47-70 [facility] Work Phone: Potassium [Moles/Vol] 3.4 mmol/L 3.5-5.1 [facility] Work Phone: Sodium [Moles/Vol] 138 mmol/L 136-145 [facility] Work Phone: WBC (Bld) [#/Vol] 6.2 10*3/uL 4.4-11.0 [facility] Work Phone: Bilirubin Test strip Ql (U)o n 01-12-2022 Bilirubin Ql (U) Negative Negative [facility] Work Phone: [phone] Blood erythrocytes count (nu mber/volume)on 01-12-2022 RBC (Bld) [#/Vol] 4.79 10*6/uL 4.6-6.2 [facility] Work Phone: Blood hemoglobin measurement (mass/volume)on 01-12-2022 Hemoglobin (Bld) [Mass/Vol] 14.6 g/dL 13.0-16.5 [facility] Work Phone: Blood lymphocytes/100 leukoc yteson 01-12-2022 Lymphocytes/100 WBC (Bld) 23.5 % 19-41 [facility] Work Phone: Blood monocytes/100 leukocyt eson 01-12-2022 Monocytes/100 WBC (Bld) 10.7 % 0-10 [facility] Work Phone: Blood platelet mean volumeon 01-12-2022 Platelet mean volume (Bld) [Entitic vol] 8.8 fL 6.2-12.0 [facility] Work Phone: [phone] Culture, urineon 01-12-2022 Bacteria identified Cx Nom (U) Culture exhibits no growth. [facility] Work Phone: Determination of erythrocyte mean corpuscular volume (MCV)on 01-12-2022 MCV (RBC) [Entitic vol] 88.9 fL 80-94 [facility] Work Phone: Hematocrit Auto (Bld) [Volum e fraction]on 01-12-2022 Hematocrit (Bld) [Volume fraction] 42.6 % 40-54 [facility] Work Phone: Ketones Test strip Ql (U)on 01-12-2022 Ketones Ql (U) Negative Negative [facility] Work Phone: [phone] Laboratory - Chemistry and C hemistry - challengeon 01-12-2022 CO2 [Moles/Vol] 30.0 mmol/L 21.0-32.0 [facility] Work Phone: [phone] Urea nitrogen/Creatinine [Mass ratio] 11.6 mg/mg 10-20 [facility] Work Phone: [phone] Laboratory - Hematology and Cell countson 01-12-2022 Erythrocyte distribution width (RBC) [Entitic vol] 42.7 fL 35.1-43.9 [facility] Work Phone: [phone] Erythrocyte distribution width (RBC) [Ratio] 13.1 % 11.6-14.6 [facility] Work Phone: [phone] Immature granulocytes/100 WBC (Bld) 0.200 % 0.0-0.9 [facility] Work Phone: [phone] Comment on above: IG% - Immature Granu locytes (promyelocytes, myelocytes and metamyelocytes) > 1% indicates that a LEFT SHIFT is Present. MCH (RBC) [Entitic mass] 30.5 pg 27.0-32.0 [facility] Work Phone: [phone] Nucleated RBC/100 WBC (Bld) [Ratio] 0 % 0-5 [facility] Work Phone: [phone] MCHC Auto (RBC) [Mass/Vol]on 01-12-2022 MCHC (RBC) [Mass/Vol] 34.3 g/dL 32-36 [facility] Work Phone: [phone] Mucus LM Ql (Urine sed)on Mucus Ql (Urine sed) 0 SEEN /hpf [facility] Work Phone: [phone] Nitrite Test strip Ql (U)on 01-12-2022 Nitrite Ql (U) Negative Negative [facility] Work Phone: [phone] Panel Informationon 01-12 Estimated Creatinine Clearance Calc 56.41 ml/min [facility] Work Phone: [phone] Estimated GFR (MDRD) Amer 72 mL/min >60 [facility] Work Phone: Comment on above: GFR Calc Estimated GFR (MDRD) Non-Af Amer 59 mL/min >60 [facility] Work Phone: Comment on above: Non- GFR Calc Platelets bldon 01-12-2022 Platelets (Bld) [#/Vol] 374 10*3/uL 150-450 [facility] Work Phone: Protein Test strip Ql (U)on 01-12-2022 Protein Ql (U) 15 mg/dl Negative [facility] Work Phone: Serum or plasma calcium doug urement (mass/volume)on 01-12-2022 Calcium [Mass/Vol] 9.4 mg/dL 8.5-10.1 [facility] Work Phone: Serum or plasma creatinine m easurement (mass/volume)on 01-12-2022 Creatinine [Mass/Vol] 1.29 mg/dL 0.70-1.30 [facility] Work Phone: Comment on above: The validity of the calculated GFR & GFRAA in patients over 70 years has not been determined. Clinical correlation is essential. Serum or plasma urea nitroge n measurement (mass/volume)on 01-12-2022 Urea nitrogen [Mass/Vol] 15 mg/dL 7-18 [facility] Work Phone: Squamous epithelial cells de tection in urine sediment by light microscopyon 01-12-2022 Epithelial cells.squamous LM Ql (Urine sed) 0-5 SEEN /hpf 0-5 [facility] Work Phone: Thin prep Papanicolaou smear with manual screeningon 01-12-2022 Thin prep Papanicolaou smear with manual screening 4 5-15 [facility] Work Phone: Urine blood detectionon 12-21 RBC Ql (U) 50 /ul Negative [facility] Work Phone: [phone] RBC Ql (U) 0-5 SEEN /hpf 0-5 [facility] Work Phone: Urine clarityon 01-12-2022 Clarity (U) Sl Cldy Clear [facility] Work Phone: Comment on above: Previous reported re sult: Clear Edited by: ROSAURA on 01/12/22:1822 Urine color determinationon 01-12-2022 Color (U) Yellow Yellow [facility] Work Phone: Urine glucose detectionon Glucose Ql (U) Normal mg/dl Normal [facility] Work Phone: Urine leukocyte esterase det ection by dipstickon 01-12-2022 Leukocyte esterase Test strip Ql (U) 500 /ul Negative [facility] Work Phone: Urine pHon 01-12-2022 pH (U) 7.0 [pH] 5.0 - 8.0 [facility] Work Phone: Urine sediment bacteria coun t by microscopy (number/high power field)on 01-12-2022 Bacteria LM.HPF (Urine sed) [#/Area] 0 /[HPF] None Seen [facility] Work Phone: Urine specific gravity measu rementon 01-12-2022 Specific gravity (U) [Rel density] 1.010 1.002-1.03 0 [facility] Work Phone: Urobilinogen Auto test strip Ql (U)on 01-12-2022 Urobilinogen Ql (U) 1 mg/dl Normal [facility] Work Phone: Absolute lymphocyte counton 12-04-2021 Lymphocytes Auto (Unsp spec) [#/Vol] 1.43 10*3/uL 0.83-4.51 [facility] Work Phone: Basophil percentageon 2021 Basophils/100 WBC (Bld) 0.6 % 0-1 [facility] Work Phone: Chloride [Moles/Vol] 107 mmol/L 98-107 [facility] Work Phone: Eosinophils/100 WBC (Bld) 2.4 % 0-5 [facility] Work Phone: Glucose [Mass/Vol] 107 mg/dL 74-106 [facility] Work Phone: Comment on above: Fasting Glucose resu lt from 100 to 125 mg/dL suggests IMPAIRED HOMEOSTASIS per A.D.A. criteria. Neutrophils (Bld) [#/Vol] 4.5 10*3/uL 2.0-7.7 [facility] Work Phone: Neutrophils/100 WBC (Bld) 67.7 % 47-70 [facility] Work Phone: Potassium [Moles/Vol] 3.9 mmol/L 3.5-5.1 [facility] Work Phone: Sodium [Moles/Vol] 138 mmol/L 136-145 [facility] Work Phone: WBC (Bld) [#/Vol] 6.7 10*3/uL 4.4-11.0 [facility] Work Phone: Blood erythrocytes count (nu mber/volume)on 12-04-2021 RBC (Bld) [#/Vol] 4.71 10*6/uL 4.6-6.2 [facility] Work Phone: Blood hemoglobin measurement (mass/volume)on 12-04-2021 Hemoglobin (Bld) [Mass/Vol] 14.4 g/dL 13.0-16.5 [facility] Work Phone: Blood lymphocytes/100 leukoc yteson 12-04-2021 Lymphocytes/100 WBC (Bld) 21.4 % 19-41 [facility] Work Phone: Blood monocytes/100 leukocyt eson 12-04-2021 Monocytes/100 WBC (Bld) 7.5 % 0-10 [facility] Work Phone: Blood platelet mean volumeon 12-04-2021 Platelet mean volume (Bld) [Entitic vol] 8.3 fL 6.2-12.0 [facility] Work Phone: Determination of erythrocyte mean corpuscular volume (MCV)on 12-04-2021 MCV (RBC) [Entitic vol] 90.2 fL 80-94 [facility] Work Phone: [phone] Hematocrit Auto (Bld) [Volum e fraction]on 12-04-2021 Hematocrit (Bld) [Volume fraction] 42.5 % 40-54 [facility] Work Phone: [phone] Laboratory - Chemistry and C hemistry - challengeon 12-04-2021 CO2 [Moles/Vol] 27.0 mmol/L 21.0-32.0 [facility] Work Phone: [phone] Urea nitrogen/Creatinine [Mass ratio] 15.7 mg/mg 10-20 [facility] Work Phone: [phone] Laboratory - Hematology and Cell countson 12-04-2021 Erythrocyte distribution width (RBC) [Entitic vol] 44.6 fL 35.1-43.9 [facility] Work Phone: [phone] Erythrocyte distribution width (RBC) [Ratio] 13.4 % 11.6-14.6 [facility] Work Phone: [phone] Immature granulocytes/100 WBC (Bld) 0.400 % 0.0-0.9 [facility] Work Phone: [phone] Comment on above: IG% - Immature Granu locytes (promyelocytes, myelocytes and metamyelocytes) > 1% indicates that a LEFT SHIFT is Present. MCH (RBC) [Entitic mass] 30.6 pg 27.0-32.0 [facility] Work Phone: [phone] Nucleated RBC/100 WBC (Bld) [Ratio] 0 % 0-5 [facility] Work Phone: [phone] MCHC Auto (RBC) [Mass/Vol]on 12-04-2021 MCHC (RBC) [Mass/Vol] 33.9 g/dL 32-36 [facility] Work Phone: [phone] Panel Informationon 12-04 Estimated Creatinine Clearance Calc 67.93 ml/min [facility] Work Phone: [phone] Estimated GFR (MDRD) Amer 82 mL/min >60 [facility] Work Phone: Comment on above: GFR Calc Estimated GFR (MDRD) Non-Af Amer 68 mL/min >60 [facility] Work Phone: Comment on above: Non- GFR Calc Platelets bldon 12-04-2021 Platelets (Bld) [#/Vol] 477 10*3/uL 150-450 [facility] Work Phone: Serum or plasma calcium doug urement (mass/volume)on 12-04-2021 Calcium [Mass/Vol] 8.7 mg/dL 8.5-10.1 [facility] Work Phone: Serum or plasma creatinine m easurement (mass/volume)on 12-04-2021 Creatinine [Mass/Vol] 1.15 mg/dL 0.70-1.30 [facility] Work Phone: Comment on above: The validity of the calculated GFR & GFRAA in patients over 70 years has not been determined. Clinical correlation is essential. 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) Heartburn (787.1) (R12) Weight loss (783.21) (R63.4) Orders Abnormality of pancreatic duct, Weight loss MRI Pancreas w/wo Contrast; Status:Hold For - Scheduling; Requested for:12Jan2021; Perform:[facility]; Due:12Apr2021;Ordered; For:Abnormality of pancreatic duct, Weight loss; Ordered By:Connie East; Radiologist to Determine Optimal Study : Y Does the patient have a Cochlear Implant, Pacemaker, Defibrilator, Pacing Wire, Brain Aneurysm Clip, Implanted Nerve or Bone Graft Simulator, Implanted Breast Tissue Electric Well Logging Operator, Glucose Monitor, or Neulasta Device? : No What are the patient's signs and symptoms? : Prominent pancreat duct 4 mm Heartburn Start: Omeprazole 20 MG Oral Tablet Delayed Release; TAKE 1 TABLET Daily 30 minutes before breakfast Rx By: Connie East; Dispense: 30 Days ; #:30 Tablet; Refill: 3;For: Heartburn; DAVID = N; Verified Transmission to [id number]; Last Updated By: Devin Landry; 01/12/2021 12:20:01 PM Patient Discussion/Summary 1. Outside records were reviewed. 2. Obtain MRI attention pancreatic head. Pending result, discussed potential EUS. 3. Start omeprazole 20 mg 30 minutes before breakfast for GERD. 4. Lifestyle changes to help alleviate heartburn/reflux were discussed. These include avoiding spicy and greasy foods, tomato based products, mint and caffeine. Alcohol and smoking should be avoided. Patient should keep at least 3 hours between eating and going to sleep. Being of a normal weight helps decrease heartburn symptoms. 5. Return to office in 4 weeks. Discuss colonoscopy at follow-up after orthopedic consult. Chief Complaint Abnormal CT scan History of Present [id number] male presents today referred by Brian Rooney regarding an abnormal pancreatic duct finding on recent CT scan. Patient had presented to [facility] emergency room on 12/22/2020 for left hip and leg pain. CT scan incidentally demonstrated sigmoid diverticulosis as well as a prominent pancreatic duct of 4 mm. No lesion or pancreatitis noted. LFTs and lipase were normal. Pain is primarily in the left hip with slight radiation down his leg. This is exasperated with activity. He is unable to lay on his left side. He was referred to an orthopedist. He denies abdominal pain but does report intermittent dyspepsia and heartburn. Heartburn occurs nearly daily in the morning or occasionally after meals. There is no vomiting. He states appetite fluctuates and reports a 10 pound weight loss over the last 2 to 3 months. He has no dysphagia or odynophagia. Uses [id number] Tums with short-term relief. He has never been on antireflux therapy. There is no history of EGD but he does report a normal colonoscopy in 1987. He has no diarrhea or constipation. There is no hematochezia or melena. Review of Systems Const: Reports weight loss. Denies fatigue and fever. CV: Denies chest pain, pacemaker, palpitations and valvular heart disease. Resp: Denies cough, sleep apnea, SOB and snoring. GI: Denies symptoms other than stated above. Musculo: Reports chronic back pain and left hip pain. Skin: Denies hives and rash. Neuro: Denies seizures and stroke. Psych: Denies anxiety and depression. Endocrine: Denies intolerance to cold, hot flashes and impaired glucose tolerance. Gilberto/Lymph: Denies anemia, blood transfusions, chemotherapy, enlarged lymph nodes and radiation treatment of any kind. 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) Past Medical History Problems History of aneurysm (V12.59) (Z86.79) History of arthritis (V13.4) (Z87.39) History of chronic back pain (V13.59) (Z87.39) History of epilepsy (V12.49) (Z86.69) History of hypercholesterolemia (V12.29) (Z86.39) Surgical History Problems History of Colonoscopy History of Craniotomy Family History Mother Family history of Father Family history of Alive and well No family history of colon cancer Child Family history of Alive and well No family history of colon cancer Sibling Family history of Alive and well No family history of colon cancer Social History Problems Daily caffeine consumption Former smoker (V15.82) (Z87.891) No alcohol use No illicit drug use Rarely consumes alcohol (V49.89) (Z78.9) Allergies Medication codeine Recorded By: Richie Juarez; 01/11/2021 9:44:15 AM Naprosyn Recorded By: Richie Juarez; 01/11/2021 9:44:15 AM Ultram Recorded By: Richie Juarez; 01/11/2021 9:44:15 AM Vicodin TABS Recorded By: Richie Juarez; 01/11/2021 9:44:15 AM NonMedication Adhesive Tape Recorded By: Richie Juarez; 01/11/2021 9:44:15 AM Current Meds Medication NameInstruction Gabapentin 300 MG Oral Capsule Percocet 5-325 MG Oral Tablet Vitals Vital Signs Recorded: 12Jan2021 11:32AM Ntdsldhtthd85.7 F Heart Rate63 Height6 ft 1 in Kyvqwa941 lb 6 oz BMI Liutljmhqh36.82 BSA Calculated1.98 O2 Cuqoefoksp14 Physical Exam Const: Vital signs reviewed. ENMT: Oral mucosa moist with no thrush and no mucositis. Neck: Supple and symmetric. Thyroid is normal in size and texture. Resp: Respiration rate is normal. Clear to auscultation. CV: Rhythm is regular. No heart murmur appreciated. Carotids 2+ and equal bilaterally, without bruits. Femorals 2+ and equal bilaterally, without bruits. Abdomen: Positive bowel sounds in all quadrants. No bruits. Normal to percussion. Palpation of the abdomen reveals softness but no tenderness, distension or fluid wave. No abdominal masses. No hernias. No palpable hepatosplenomegaly. Anus/Perineum/Rectum: Exam deferred. Lymph: No visible or palpable cervical lymphadenopathy. Inguinal nodes not palpable. Skin: Dry and warm with no nodularity or rash. Psych: Affect is normal. Alert and oriented x3. Neuro: Cranial nerves intact. No focal motor defects. Muscloskeletal: No joint deformity or swelling. Motor strength normal. Patient favoring his right side while sitting and moving. Results/Data [facility] ED 12/22/2020: Sigmoid diverticulosis without diverticulitis, prominent pancreatic duct 4 mm without additional findings, advanced coronary artery calcifications, 4 mm left lower lobe pulmonary nodule, no obstructive uropathy. WBC 4.9, hemoglobin 13.7, hematocrit 39.8, MCV 90.5, platelets 390. Sodium 138, potassium 4.4, glucose 122, BUN 13, creatinine 1.23. Total bilirubin 0.8, alk phos 90, ALT 22, AST 14. Lipase 61. Urinalysis trace blood. Signatures Electronically signed by : Connie East PA-C; Jan 12 2021 12:33PM EST (Author) Normal [facility] CR Humerus 2+ Views Lefton 0 06-26-2020 CR Humerus 2+ Views Left Patient Name: WINSTON MARI Diagnostic Radiology Exam Date/Time 06/26/2020 18:22:17 EDT Exam CR Humerus 2+ Views Left Ordering Physician MD LEONG JESSE Accession Number [id number] CPT4 Codes 60361 () Reason For Exam Injury Report EXAM: CR Humerus 2+ Views Left INDICATION: Injury; fell off back of truck with entire left arm pain VIEWS: AP and lateral COMPARISON: No comparison TIME: 18:12 FINDINGS AND IMPRESSION: There is expansion of the medullary cavity of the mid diaphyseal shaft of the humerus with the appearance of 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 Report Dictated on Final Dictating Physician: MD PADGETT JENNIFER R Signed Date and Time: 06/26/2020 6:34 pm Signed by: MD PADGETT JENNIFER R Transcribed Date and Time: 06/26/2020 6:35 [facility] CR Shoulder 2+ Views Lefton 06-26-2020 CR Shoulder 2+ Views Left Patient Name: WINSTON MARI Diagnostic Radiology Exam Date/Time 06/26/2020 18:22:17 EDT Exam CR Shoulder 2+ Views Left Ordering Physician MD LEONG JESSE Accession Number [id number] CPT4 Codes 20859 () Reason For Exam Injury Report EXAM: CR Shoulder 2+ Views Left INDICATION: Injury; fell off back of truck; left arm pain VIEWS: Grashey, Y view, axillary COMPARISON: No comparison TIME: 17:59 FINDINGS AND IMPRESSION: No evidence for dislocation or acute fracture of the shoulder. Mid humeral shaft deformity which may represent changes from prior nonunited fracture with callus formation. Report Dictated on Final Dictating Physician: MD PADGETT JENNIFER R Signed Date and Time: 06/26/2020 6:30 pm Signed by: MD PADGETT JENNIFER R Transcribed Date and Time: 06/26/2020 6:31 [facility] CR Spine Lumbosacral 2 or 3 Viewson 06-26-2020 CR Spine Lumbosacral 2 or 3 Views Patient Name: WINSTON MARI Diagnostic Radiology Exam Date/Time 06/26/2020 18:22:17 EDT Exam CR Spine Lumbosacral 2 or 3 Views Ordering Physician MD LEONG JESSE Accession Number [id number] CPT4 Codes 38193 () Reason For Exam Injury Report EXAM: CR Spine Lumbosacral 2 or 3 Views INDICATION: Injury; fell off truck; pain VIEWS: AP, lateral, lateral lumbosacral spot COMPARISON: No comparison TIME: 18:04 FINDINGS AND IMPRESSION: There is no acute compression deformity of the lumbar vertebral bodies. There is loss of disc space height at L5-S1. Report Dictated on Final Dictating Physician: MD PADGETT JENNIFER R Signed Date and Time: 06/26/2020 6:35 pm Signed by: MD PADGETT JENNIFER R Transcribed Date and Time: 06/26/2020 6:36 Normal [facility] CR Wrist Complete 3 Views [place] 06-26-2020 CR Wrist Complete 3 Views Left Patient Name: WINSTON MARI Diagnostic Radiology Exam Date/Time 06/26/2020 18:22:17 EDT Exam CR Wrist Complete 3 Views Left Ordering Physician MD LEONG JESSE Accession Number [id number] CPT4 Codes 73901 () Reason For Exam Injury Report EXAM: CR Wrist Complete 3 Views Left INDICATION: Injury; fell off truck; pain VIEWS: PA, oblique, lateral COMPARISON: 05/28/2017 TIME: 17:57 FINDINGS AND IMPRESSION: No acute fracture. Similar to prior imaging there is narrowing of the scaphoid radial space with associated sclerosis. Similar exostosis along the lateral margin of the scaphoid. Report Dictated on Final Dictating Physician: MD PADGETT JENNIFER R Signed Date and Time: 06/26/2020 6:37 pm Signed by: MD PADGETT JENNIFER R Transcribed Date and Time: 06/26/2020 6:38 Normal [facility] XR HUMERUS LEFT (MIN 2 VIEWS )on 06-26-2020 Patient Name: WINSTON MARI ---Diagnostic Radiology--- Exam Date/Time 06/26/2020 18:22:17 EDT Exam CR Humerus 2+ Views Left Ordering Physician MD LEONG JESSE Accession Number [id number] CPT4 Codes 09496 () Reason For Exam Injury Report EXAM: CR Humerus 2+ Views Left INDICATION: Injury; fell off back of truck with entire left arm pain VIEWS: AP and lateral COMPARISON: No comparison TIME: 18:12 FINDINGS AND IMPRESSION: There is expansion of the medullary cavity of the mid diaphyseal shaft of the humerus with the appearance of 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 Report Dictated on --- Final --- Dictating Physician: MD PADGETT JENNIFER R Signed Date and Time: 06/26/2020 6:34 pm Signed by: MD PADGETT JENNIFER R Transcribed Date and Time: 06/26/2020 6:35 [place] [employer] [place] Incoming Radiology Results From [facility] - 06/26/2020 6:35 PM EDT Patient Name: WINSTON MARI ---Diagnostic Radiology--- Exam Date/Time 06/26/2020 18:22:17 EDT Exam CR Humerus 2+ Views Left Ordering Physician MD LEONG JESSE Accession Number [id number] CPT4 Codes 40612 () Reason For Exam Injury Report EXAM: CR Humerus 2+ Views Left INDICATION: Injury; fell off back of truck with entire left arm pain VIEWS: AP and lateral COMPARISON: No comparison TIME: 18:12 FINDINGS AND IMPRESSION: There is expansion of the medullary cavity of the mid diaphyseal shaft of the humerus with the appearance of 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 Report Dictated on --- Final --- Dictating Physician: MD PADGETT JENNIFER R Signed Date and Time: 06/26/2020 6:34 pm Signed by: MD PADGETT JENNIFER R Transcribed Date and Time: 06/26/2020 6:35 [facility] [employer] XR LUMBAR SPINE (2-3 VIEWS)o n 06-26-2020 Patient Name: WINSTON MARI ---Diagnostic Radiology--- Exam Date/Time 06/26/2020 18:22:17 EDT Exam CR Spine Lumbosacral 2 or 3 Views Ordering Physician MD LEONG JESSE Accession Number [id number] CPT4 Codes 00888 () Reason For Exam Injury Report EXAM: CR Spine Lumbosacral 2 or 3 Views INDICATION: Injury; fell off truck; pain VIEWS: AP, lateral, lateral lumbosacral spot COMPARISON: No comparison TIME: 18:04 FINDINGS AND IMPRESSION: There is no acute compression deformity of the lumbar vertebral bodies. There is loss of disc space height at L5-S1. Report Dictated on --- Final --- Dictating Physician: MD PADGETT JENNIFER R Signed Date and Time: 06/26/2020 6:35 pm Signed by: MD PADGETT JENNIFER R Transcribed Date and Time: 06/26/2020 6:36 [place], [place] [facility] Incoming Radiology Results From [facility] - 06/26/2020 6:37 PM EDT Patient Name: WINSTON MARI ---Diagnostic Radiology--- Exam Date/Time 06/26/2020 18:22:17 EDT Exam CR Spine Lumbosacral 2 or 3 Views Ordering Physician MD LEONG JESSE Accession Number [id number] CPT4 Codes 67254 () Reason For Exam Injury Report EXAM: CR Spine Lumbosacral 2 or 3 Views INDICATION: Injury; fell off truck; pain VIEWS: AP, lateral, lateral lumbosacral spot COMPARISON: No comparison TIME: 18:04 FINDINGS AND IMPRESSION: There is no acute compression deformity of the lumbar vertebral bodies. There is loss of disc space height at L5-S1. Report Dictated on --- Final --- Dictating Physician: MD PADGETT JENNIFER R Signed Date and Time: 06/26/2020 6:35 pm Signed by: MD PADGETT JENNIFER R Transcribed Date and Time: 06/26/2020 6:36 [facility] [place], [place] XR Shoulder Left 2 VWon 090 Patient Name: WINSTON MARI ---Diagnostic Radiology--- Exam Date/Time 06/26/2020 18:22:17 EDT Exam CR Shoulder 2+ Views Left Ordering Physician MD LEONG JESSE Accession Number [id number] CPT4 Codes 82638 () Reason For Exam Injury Report EXAM: CR Shoulder 2+ Views Left INDICATION: Injury; fell off back of truck; left arm pain VIEWS: Grashey, Y view, axillary COMPARISON: No comparison TIME: 17:59 FINDINGS AND IMPRESSION: No evidence for dislocation or acute fracture of the shoulder. Mid humeral shaft deformity which may represent changes from prior nonunited fracture with callus formation. Report Dictated on --- Final --- Dictating Physician: MD PADGETT JENNIFER R Signed Date and Time: 06/26/2020 6:30 pm Signed by: MD PADGETT JENNIFER R Transcribed Date and Time: 06/26/2020 6:31 [facility] [place], [place] [facility] Incoming Radiology Results From [facility] - 06/26/2020 6:32 PM EDT Patient Name: WINSTON MARI ---Diagnostic Radiology--- Exam Date/Time 06/26/2020 18:22:17 EDT Exam CR Shoulder 2+ Views Left Ordering Physician MD LEONG JESSE Accession Number [id number] CPT4 Codes 34688 () Reason For Exam Injury Report EXAM: CR Shoulder 2+ Views Left INDICATION: Injury; fell off back of truck; left arm pain VIEWS: Grashey, Y view, axillary COMPARISON: No comparison TIME: 17:59 FINDINGS AND IMPRESSION: No evidence for dislocation or acute fracture of the shoulder. Mid humeral shaft deformity which may represent changes from prior nonunited fracture with callus formation. Report Dictated on --- Final --- Dictating Physician: MD PADGETT JENNIFER R Signed Date and Time: 06/26/2020 6:30 pm Signed by: MD PADGETT JENNIFER R Transcribed Date and Time: 06/26/2020 6:31 [place], [place] XR WRIST LEFT 3 VWon 020 Patient Name: WINSTON MARI ---Diagnostic Radiology--- Exam Date/Time 06/26/2020 18:22:17 EDT Exam CR Wrist Complete 3 Views Left Ordering Physician MD LEONG JESSE Accession Number [id number] CPT4 Codes 01628 () Reason For Exam Injury Report EXAM: CR Wrist Complete 3 Views Left INDICATION: Injury; fell off truck; pain VIEWS: PA, oblique, lateral COMPARISON: 05/28/2017 TIME: 17:57 FINDINGS AND IMPRESSION: No acute fracture. Similar to prior imaging there is narrowing of the scaphoid radial space with associated sclerosis. Similar exostosis along the lateral margin of the scaphoid. Report Dictated on --- Final --- Dictating Physician: MD PADGETT JENNIFER R Signed Date and Time: 06/26/2020 6:37 pm Signed by: MD PADGETT JENNIFER R Transcribed Date and Time: 06/26/2020 6:38 [place], [place] [facility] Incoming Radiology Results From [facility] - 06/26/2020 6:39 PM EDT Patient Name: WINSTON MARI ---Diagnostic Radiology--- Exam Date/Time 06/26/2020 18:22:17 EDT Exam CR Wrist Complete 3 Views Left Ordering Physician MD LEONG JESSE Accession Number [id number] CPT4 Codes 32848 () Reason For Exam Injury Report EXAM: CR Wrist Complete 3 Views Left INDICATION: Injury; fell off truck; pain VIEWS: PA, oblique, lateral COMPARISON: 05/28/2017 TIME: 17:57 FINDINGS AND IMPRESSION: No acute fracture. Similar to prior imaging there is narrowing of the scaphoid radial space with associated sclerosis. Similar exostosis along the lateral margin of the scaphoid. Report Dictated on --- Final --- Dictating Physician: MD PADGETT JENNIFER R Signed Date and Time: 06/26/2020 6:37 pm Signed by: MD PADGETT JENNIFER R Transcribed Date and Time: 06/26/2020 6:38 [place], [place] CT BRAIN WO IVCONon 11-03-[address] BRAIN WO IVCON * * *Final Report* * * DATE OF EXAM: Nov 03 2019 4:30PM [facility] 0504 - CT BRAIN WO IVCON / PROCEDURE REASON: Head trauma, minor, GCS>=13, NOC/NEXUS/CCR neg, initial exam * * * * Physician Interpretation * * * * EXAMINATION: CT BRAIN WO IVCON CLINICAL HISTORY: Head trauma, minor, GCS>=13, NOC/NEXUS/CCR neg, initial exam TECHNIQUE: Serial axial images without IV contrast were obtained from the vertex to the foramen magnum. MQ: CTBWO_3 CT Dose-Length Product (DLP): 882.80 mGy*cm CT Dose Reduction Employed: No dose reduction techniques were required COMPARISON: None. RESULT: Post-operative change: Left parieto-occipital craniotomy. Acute change: No evidence of an acute contusion or other acute parenchymal process. Hemorrhage: No evidence of acute intracranial hemorrhage. Mass Lesion / Mass Effect: There is no evidence of an intracranial mass or extraaxial fluid collection. No significant mass effect. Chronic change: None apparent. Parenchyma: There is no significant volume loss. The brain parenchyma is otherwise within normal limits for age. Ventricles: The ventricles are within normal limits of size and configuration for age. Paranasal sinuses and skull base: The visualized paranasal sinuses are grossly clear. The skull base and imaged soft tissues are unremarkable. IMPRESSION: No acute intracranial findings. Chronic changes as described 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: PSCB Transcribe Date/Time: Nov 03 2019 4:35P Dictated by : MAXI BALES MD This examination was interpreted and the report reviewed and electronically signed by: MAXI BALES MD on Nov 03 2019 4:38PM EST Normal [facility] CT CERVICAL SPINE WO IVCONon 11-03-2019 CT CERVICAL SPINE WO IVCON * * *Final Report* * * DATE OF EXAM: Nov 03 2019 5:08PM [facility] 0505 - CT CERVICAL SPINE WO IVCON / PROCEDURE REASON: C-spine trauma, NEXUS/CCR positive * * * * Physician Interpretation * * * * EXAMINATION: CT CERVICAL SPINE WO IVCON CLINICAL HISTORY: Trauma, the patient fell from a ladder. Neck pain. TECHNIQUE: CT of the cervical spine without IV contrast. Spiral, high resolution axial images were obtained from the skull base to the cervicothoracic junction with sagittal and coronal planar reconstructions. MQ: CTCSPWO_5 CT Dose-Length Product (DLP): 1119.89 mGy*cm CT Dose Reduction Employed: No dose reduction techniques were required COMPARISON: None. RESULT: The study is considered somewhat limited due to the patient's head tilted within the scanner. Counting reference: Craniocervical junction. Anatomic Variants: None. Alignment: Alignment is anatomic. Craniocervical junction: Craniocervical junction is normal. Osseous structures/fracture: No evidence of a lytic or blastic process in the visualized spine. No evidence of acute or chronic fracture. Cervical soft tissues: The paraspinal soft tissues are intact. There is a 2.1 cm rounded nodule within the right parotid gland. Mild emphysematous changes within the visualized lung apices. Degenerative changes: Mild to moderate degenerative disease at C4-C5 and C5-C6 as well as C6-C7. Mild spinal canal stenoses at these levels due to posterior disc osteophyte complex formation. There is multilevel degenerative neural foraminal narrowing secondary to multilevel uncinate and facet arthritis. IMPRESSION: No evidence of acute cervical spine fracture. 2.1 cm rounded right parotid nodule, with differential considerations of primary parotid neoplasm or abnormally enlarged right parotid lymph node. ENT consultation recommended. Anatomic Variant: None. Assume 7 cervical vertebrae with counting from the craniocervical junction. 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: [facility] Transcribe Date/Time: Nov 03 2019 5:17P Dictated by : TIMUR CHAPA MD This examination was interpreted and the report reviewed and electronically signed by: TIMUR CHAPA MD on Nov 03 2019 5:25PM EST Normal [facility] CT LUMBAR SPINE WO IVCONon 0 11-03-2019 CT LUMBAR SPINE WO IVCON * * *Final Report* * * DATE OF EXAM: Nov 03 2019 4:43PM [facility] 0508 - CT LUMBAR SPINE WO IVCON / PROCEDURE REASON: T/L-spine trauma, minor-mod, low back pain * * * * Physician Interpretation * * * * EXAMINATION: CT LUMBAR SPINE WO IVCON CLINICAL HISTORY: The patient fell. Patient presents with severe back pain TECHNIQUE: Spiral, high resolution axial images were obtained from the thoracolumbar junction to the sacrum with sagittal and coronal planar reconstructions. MQ: CTLSPWO_3 Dose-Length Product (DLP): 1423.68 mGy*cm. CT Dose Reduction Employed: No dose reduction techniques were required COMPARISON: 12/08/[address] RESULT: Counting reference: Lumbosacral junction. For the purposes of this report, L4-5 is considered the level of the iliac crest and assume there are 5 lumbar-type vertebrae. Anatomic variant: None. Alignment: Alignment is anatomic. Bone marrow /fracture: No evidence of a lytic or blastic process in the visualized spine. No evidence of acute or chronic fracture. Paraspinal soft tissues: The paraspinal soft tissues planes are maintained. There is a 19 mm exophytic lesion involving the right kidney of intermediate attenuation. There is colonic diverticulosis. Lower thoracic spine: The visualized lower thoracic bony canal and foramina are patent. T12-L1: Canal and foramina are patent. L1-L2: Canal and foramina are patent. L2-L3: Canal and foramina are patent L3-L4: Mild degenerative disc disease. Canal foramina patent. L4-L5: There is mild generalized disc bulging. Bilateral facet arthritis. Canal patent. Mild bilateral foraminal stenosis. L5-S1: Moderate to advanced degenerative disc disease. There is disc bulging endplate osteophyte formation. Bilateral facet arthritis. There is moderate degenerative bilateral foraminal narrowing. Sacrum and iliac wings: The visualized sacrum and iliac wings are within normal limits. IMPRESSION: No evidence of acute lumbar spine fracture or subluxation. Chronic/degenerative changes as detailed. Indeterminate exophytic 19 mm right renal nodule. This may represent a complicated cyst. However, renal mass is not excluded. Further characterization with renal ultrasound recommended. Anatomic Thoracic/Lumbar Variant: None. L4-5 is considered the level of the iliac crest and assume there are 5 lumbar-type vertebrae. 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: PSCB Transcribe Date/Time: Nov 03 2019 5:06P Dictated by : TIMUR CHAPA MD This examination was interpreted and the report reviewed and electronically signed by: TIMUR CHAPA MD on Nov 03 2019 5:14PM EST Normal [facility] CT THORACIC SPINE WO IVCONon 11-03-2019 CT THORACIC SPINE WO IVCON * * *Final Report* * * DATE OF EXAM: Nov 03 2019 4:44PM [facility] 0514 - CT THORACIC SPINE WO IVCON / PROCEDURE REASON: T/L-spine trauma, minor-mod, low back pain * * * * Physician Interpretation * * * * EXAMINATION: CT THORACIC SPINE WO IVCON CLINICAL HISTORY: Trauma, the patient fell. Back pain. TECHNIQUE: Spiral, high resolution unenhanced axial images were obtained from the cervicothoracic junction to the thoracolumbar junction with sagittal and coronal planar reconstructions. MQ: CTTSWO_3 Dose-Length Product (DLP): 915.29 mGy*cm. CT Dose Reduction Employed: No dose reduction techniques were required COMPARISON: None. RESULT: Counting reference: Lumbosacral junction. For the purposes of this report, anatomic variants: Alignment: Alignment is anatomic. Bone marrow / fracture: There are mild superior endplate compression deformities of T6 and T9, considered age-indeterminate. No lucent fracture planes are seen. No retropulsion. No significant paraspinous hematoma. Thoracic paraspinal soft tissues: The paraspinal soft tissues planes are maintained. There is a 6 mm nodule within the right lower lobe (image 124, series 3). Canal and foramina: The bony thoracic canal and foramina are patent. IMPRESSION: Mild T6 and T9 superior endplate age indeterminate compression deformities, without definitive imaging evidence to suggest acuity. Correlate clinically and with point tenderness. Anatomic Thoracic/Lumbar Variant: None. L4-5 is considered the level of the iliac crest and assume there are 5 lumbar-type vertebrae. Incidental Finding: Follow-up for this incidentally detected lung nodule with a chest CT exam is recommended in 6-12 months. If stable on follow-up imaging, a repeat chest CT exam in 12 months (18-24 months from the initial exam) is recommended. 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: PSCB Transcribe Date/Time: Nov 03 2019 5:25P Dictated by : TIMUR CHAPA MD This examination was interpreted and the report reviewed and electronically signed by: TIMUR CHAPA MD on Nov 03 2019 5:37PM EST ACTIONABLE [facility] Anion gap [Moles/Vol] 13 mmol/L Normal 8-20 [facility] Comment on above: Performed By: #### L P14 #### [facility] [address] [place] [address] Chloride [Moles/Vol] 103 mmol/L Normal 98-109 [facility] Comment on above: Result Comment: Test ing performed on an Munoz i-STAT. Performed By: #### L P14 #### [facility] [address] [place] [address] Potassium [Moles/Vol] 3.9 mmol/L Normal 3.5-4.9 [facility] Comment on above: Result Comment: Test ing performed on an Munoz i-STAT. Performed By: #### L P14 #### [place] [address] Sodium [Moles/Vol] 139 mmol/L Normal 138-146 [facility] Comment on above: Result Comment: Test ing performed on an Munoz i-STAT. Performed By: #### L P14 #### [place] [address] Albumin [Mass/Vol] 3.9 g/dL Normal 3.4-5.0 [facility] Comment on above: Performed By: #### L P14 #### [place] [address] ALP [Catalytic activity/Vol] 89 U/L Normal 46-116 [facility] Comment on above: Performed By: #### L P14 #### [place] [address] ALT-SGPT Blood 33 U/L Normal 14-63 [facility] Comment on above: Performed By: #### L P14 #### [place] [address] AST-SGOT Blood 19 U/L Normal 15-37 [facility] Comment on above: Performed By: #### L P14 #### [place] [address] Bilirubin Ql (U) 0.7 mg/dL Normal 0.2-1.0 [facility] Comment on above: Performed By: #### L P14 #### [address] [address] Calcium [Mass/Vol] 9.3 mg/dL Normal 8.5-10.1 [facility] Comment on above: Performed By: #### L P14 #### [facility] [address] [place], [place] [address] CO2 Blood 27 mEq/L Normal 21-32 [facility] Comment on above: Performed By: #### L P14 #### [facility] [address] [place], [place] [address] Creatinine [Mass/Vol] 1.03 mg/dL Normal 0.67-1.17 [facility] Comment on above: Performed By: #### L P14 #### [facility] [address] [place] [address] Glucose [Mass/Vol] 101 mg/dL High 70-99 [facility] Comment on above: Performed By: #### L P14 #### [place] [address] Protein [Mass/Vol] 7.9 g/dL Normal 6.4-8.2 [facility] Comment on above: Performed By: #### L P14 #### [place] [address] Urea nitrogen [Mass/Vol] 14 mg/dL Normal 7-18 [facility] Comment on above: Performed By: #### L P14 #### [address] [address] Urea nitrogen/Creatinine [Mass ratio] 14 mg/mg Normal 10-20 [facility] Comment on above: Performed By: #### L P14 #### [address] [address] Hemogram/Diffon 11-03-2019 Abs. Baso 0.03 thou/cmm Normal 0.00-0.08 [facility] Comment on above: Performed By: #### L CBCD #### [address] [address] Abs. Bosque 0.80 thou/cmm Normal 0.20-1.00 [facility] Comment on above: Performed By: #### L CBCD #### [facility] [address] [place], [place] [address] Abs. Neut (ANC) 4.63 thou/cmm Normal 3.00-5.67 [facility] Comment on above: Performed By: #### L CBCD #### [facility] [address] [place], [place] [address] Basophils/100 WBC (Bld) 0.4 % Normal [facility] Comment on above: Performed By: #### L CBCD #### [facility] [address] [place] [address] Eosinophils (Bld) [#/Vol] 0.22 thou/cmm Normal 0.00-0.41 [facility] Comment on above: Performed By: #### L CBCD #### [place] [address] Eosinophils/100 WBC (Bld) 2.8 % Normal [facility] Comment on above: Performed By: #### L CBCD #### [place] [address] Erythrocyte distribution width (RBC) [Ratio] 12.9 % Normal 11.5-15.9 [facility] Comment on above: Performed By: #### L CBCD #### [place] [address] Hematocrit (Bld) [Volume fraction] 43.6 % Normal 42.0-52.0 [facility] Comment on above: Performed By: #### L CBCD #### [place] [address] Hemoglobin (Bld) [Mass/Vol] 14.5 g/dL Normal 14.0-18.0 [facility] Comment on above: Performed By: #### L CBCD #### [address] [address] Lymphocytes (Bld) [#/Vol] 2.22 thou/cmm Normal 1.50-3.65 [facility] Comment on above: Performed By: #### L CBCD #### [address] [address] Lymphocytes/100 WBC (Bld) 28.1 % Normal [facility] Comment on above: Performed By: #### L CBCD #### [facility] [address] [place] [address] MCH (RBC) [Entitic mass] 29.8 pg Normal 27.0-31.0 [facility] Comment on above: Performed By: #### L CBCD #### [place] [address] MCHC (RBC) [Mass/Vol] 33.3 % Normal 32.0-36.0 [facility] Comment on above: Performed By: #### L CBCD #### [place] [address] MCV (RBC) [Entitic vol] 89.5 fL Normal 80.0-94.0 [facility] Comment on above: Performed By: #### L CBCD #### [place] [address] Monocytes/100 WBC (Bld) 10.1 % Normal [facility] Comment on above: Performed By: #### L CBCD #### [place] [address] Platelet mean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 18:53-0500 Diastolic blood pressure 88 mm[Hg] Dr. Eugenio Mayen DO Work Phone: [facility] 11-05-2024 18:53-0500 Heart rate 70 /min Dr. Eugenio Mayen DO Work Phone: [facility] 11-05-2024 18:53-0500 Respiratory rate 18 /min Dr. Eugenio Mayen DO Work Phone: [facility] 11-05-2024 18:53-0500 SaO2% (BldA) [Mass fraction] 97 % Dr. Eugenio Mayen DO Work Phone: [facility] 11-05-2024 18:53-0500 Systolic blood pressure 143 mm[Hg] Dr. Eugenio Mayen DO Work Phone: [facility] 11-05-2024 14:16-0500 Body mass index (BMI) [Ratio] 21.9 kg/m2 Dr. Eugenio Mayen DO Work Phone: [facility] 11-05-2024 14:16-0500 Body weight 71.[address] Eugenio Mayen DO Work Phone: [facility] 2024 10:11-0400 Body temperature 97.6 [degF] [facility] 2024 10:11-0400 Diastolic blood pressure 78 mm[Hg] [facility] 2024 10:11-0400 Heart rate 64 /min [facility] 2024 10:11-0400 Respiratory rate 14 /min [facility] 2024 10:11-0400 SaO2% (BldA) [Mass fraction] 99 % [facility] 2024 10:11-0400 Systolic blood pressure 124 mm[Hg] [facility] 2024 08:36-0400 Body height 180.34 cm [facility] 2024 08:36-0400 Body mass index (BMI) [Ratio] 23.7 kg/m2 [facility] 2024 08:36-0400 Body weight 77.06 kg [facility] 10-09-2023 15:12-0500 Heart rate 79 /min [facility] 10-09-2023 15:12-0500 Respiratory rate 17 /min [facility] 10-09-2023 15:12-0500 SaO2% (BldA) [Mass fraction] 97 % [facility] 10-09-2023 13:13-0500 Body height 180.34 cm [facility] 10-09-2023 13:13-0500 Body mass index (BMI) [Ratio] 21.8 kg/m2 [facility] 10-09-2023 13:13-0500 Body temperature 98.1 [degF] [facility] 10-09-2023 13:13-0500 Body weight 71 kg [facility] 10-09-2023 13:13-0500 Diastolic blood pressure 98 mm[Hg] [facility] 10-09-2023 13:13-0500 Systolic blood pressure 139 mm[Hg] [facility] 08-22-2023 08:33-0400 Body height 180.3 cm Hamilton Agarwal MD Work Phone: [facility] 08-22-2023 08:33-0400 Body weight 76.66 kg Hamilton Agarwal MD Work Phone: [facility] 08-22-2023 08:33-0400 Diastolic blood pressure 79 mm[Hg] Hamilton Agarwal MD Work Phone: [facility] 08-22-2023 08:33-0400 Heart rate 76 /min Hamilton Agarwal MD Work Phone: [facility] 08-22-2023 08:33-0400 SaO2% (BldA) [Mass fraction] 96 % Hamilton Agarwal MD Work Phone: [facility] 08-22-2023 08:33-0400 Systolic blood pressure 142 mm[Hg] Hamilton Agarwal MD Work Phone: [facility] 08-09-2023 15:50-0400 Diastolic blood pressure 84 mm[Hg] [facility] 08-09-2023 15:50-0400 Heart rate 18 /min [facility] 08-09-2023 15:50-0400 SaO2% (BldA) [Mass fraction] 98 % [facility] 08-09-2023 15:50-0400 Systolic blood pressure 146 mm[Hg] [facility] 08-09-2023 12:20-0400 Body height 180.34 cm [facility] 08-09-2023 12:20-0400 Body mass index (BMI) [Ratio] 23.7 kg/m2 [facility] 08-09-2023 12:20-0400 Body temperature 97.6 [degF] [facility] 08-09-2023 12:20-0400 Body weight 77.06 kg [facility] 08-09-2023 12:20-0400 Respiratory rate 14 /min [facility] 05-31-2023 10:22-0400 Body height 180.34 cm [facility] 05-31-2023 10:22-0400 Body mass index (BMI) [Ratio] 20.5 kg/m2 [facility] 05-31-2023 10:22-0400 Body temperature 97.1 [degF] [facility] 05-31-2023 10:22-0400 Body weight 66.67 kg [facility] 05-31-2023 10:22-0400 Diastolic blood pressure 76 mm[Hg] [facility] 05-31-2023 10:22-0400 Heart rate 96 /min [facility] 05-31-2023 10:22-0400 Respiratory rate 14 /min [facility] 05-31-2023 10:22-0400 SaO2% (BldA) [Mass fraction] 100 % [facility] 05-31-2023 10:22-0400 Systolic blood pressure 125 mm[Hg] [facility] 03-29-2023 09:49-0400 Body height 185.4 cm Pro Almonte MD Work Phone: [facility] 03-29-2023 09:49-0400 Body temperature 98.8 [degF] Pro Almonte MD Work Phone: [facility] 03-29-2023 09:49-0400 Body weight 66.22 kg Pro Almonte MD Work Phone: [facility] 03-29-2023 09:49-0400 Diastolic blood pressure 68 mm[Hg] Pro Almonte MD Work Phone: [facility] 03-29-2023 09:49-0400 Heart rate 78 /min Pro Almonte MD Work Phone: [facility] 03-29-2023 09:49-0400 Respiratory rate 18 /min Pro Almonte MD Work Phone: [facility] 03-29-2023 09:49-0400 SaO2% (BldA) [Mass fraction] 97 % Pro Almonte MD Work Phone: [facility] 03-29-2023 09:49-0400 Systolic blood pressure 120 mm[Hg] Pro Almonte MD Work Phone: [facility] 02-11-2023 18:33-0400 Diastolic blood pressure 74 mm[Hg] [facility] 02-11-2023 18:33-0400 Heart rate 48 /min [facility] 02-11-2023 18:33-0400 Respiratory rate 13 /min [facility] 02-11-2023 18:33-0400 SaO2% (BldA) [Mass fraction] 100 % [facility] 02-11-2023 18:33-0400 Systolic blood pressure 162 mm[Hg] [facility] 02-11-2023 14:23-0400 Body temperature 97 [degF] [facility] 02-11-2023 14:17-0400 Body height 180.34 cm [facility] 02-11-2023 14:17-0400 Body mass index (BMI) [Ratio] 22.7 kg/m2 [facility] 02-11-2023 14:17-0400 Body weight 74 kg [facility] 01-14-2023 00:16-0400 Diastolic blood pressure 72 mm[Hg] [facility] 01-14-2023 00:16-0400 Heart rate 63 /min [facility] 01-14-2023 00:16-0400 Respiratory rate 15 /min [facility] 01-14-2023 00:16-0400 SaO2% (BldA) [Mass fraction] 98 % [facility] 01-14-2023 00:16-0400 Systolic blood pressure 131 mm[Hg] [facility] 01-13-2023 20:43-0400 Body height 180.34 cm [facility] 01-13-2023 20:43-0400 Body mass index (BMI) [Ratio] 20.9 kg/m2 [facility] 01-13-2023 20:43-0400 Body temperature 97.9 [degF] [facility] 01-13-2023 20:43-0400 Body weight 68.1 kg [facility] 09-19-2022 16:06-0500 Body height 180.3 cm Hubert Jett MD Work Phone: [facility] 09-19-2022 16:06-0500 Body temperature 98.49 [degF] Hubert Jett MD Work Phone: [facility] 09-19-2022 16:06-0500 Body weight 71.67 kg Hubert Jett MD Work Phone: [facility] 09-19-2022 16:06-0500 Diastolic blood pressure 74 mm[Hg] Hubert Jett MD Work Phone: [facility] 09-19-2022 16:06-0500 Heart rate 88 /min Hubert Jett MD Work Phone: [facility] 09-19-2022 16:06-0500 SaO2% (BldA) [Mass fraction] 96 % Hubert Jett MD Work Phone: [facility] 09-19-2022 16:06-0500 Systolic blood pressure 128 mm[Hg] Hubert Jett MD Work Phone: [facility] 09-16-2022 13:18-0500 Respiratory rate 18 /min [facility] 09-16-2022 10:56-0500 Body height 180.34 cm [facility] Work Phone: 09-16-2022 10:56-0500 Body mass index (BMI) [Ratio] 21.7 kg/m2 [facility] 09-16-2022 10:56-0500 Body temperature 96.8 [degF] [facility] 09-16-2022 10:56-0500 Body weight 70.63 kg [facility] 09-16-2022 10:56-0500 Diastolic blood pressure 88 mm[Hg] [facility] 09-16-2022 10:56-0500 Heart rate 85 /min [facility] 09-16-2022 10:56-0500 SaO2% (BldA) [Mass fraction] 100 % [facility] 09-16-2022 10:56-0500 Systolic blood pressure 121 mm[Hg] [facility] 08-12-2022 11:26-0400 Diastolic blood pressure 94 mm[Hg] [facility] Work Phone: 08-12-2022 11:26-0400 Heart rate 58 /min [facility] Work Phone: 08-12-2022 11:26-0400 Respiratory rate 16 /min [facility] Work Phone: 08-12-2022 11:26-0400 SaO2% (BldA) [Mass fraction] 100 % [facility] Work Phone: 08-12-2022 11:26-0400 Systolic blood pressure 136 mm[Hg] [facility] Work Phone: 08-12-2022 09:18-0400 Body mass index (BMI) [Ratio] 21.9 kg/m2 [facility] Work Phone: 08-12-2022 09:18-0400 Body temperature 97.7 [degF] [facility] Work Phone: 08-12-2022 09:18-0400 Body weight 71.2 kg [facility] Work Phone: 08-04-2022 15:20-0400 Diastolic blood pressure 81 mm[Hg] [facility] Work Phone: 08-04-2022 15:20-0400 Heart rate 65 /min [facility] Work Phone: 08-04-2022 15:20-0400 Respiratory rate 17 /min [facility] Work Phone: 08-04-2022 15:20-0400 SaO2% (BldA) [Mass fraction] 97 % [facility] Work Phone: 08-04-2022 15:20-0400 Systolic blood pressure 123 mm[Hg] [facility] Work Phone: 08-04-2022 12:42-0400 Body mass index (BMI) [Ratio] 22.1 kg/m2 [facility] Work Phone: 08-04-2022 12:42-0400 Body temperature 97 [degF] [facility] Work Phone: 08-04-2022 12:42-0400 Body weight 71.8 kg [facility] Work Phone: 04-27-2022 11:24-0400 Diastolic blood pressure 87 mm[Hg] [facility] Work Phone: 04-27-2022 11:24-0400 Heart rate 64 /min [facility] Work Phone: 04-27-2022 11:24-0400 Systolic blood pressure 130 mm[Hg] [facility] Work Phone: 04-27-2022 11:08-0400 Body height 180.34 cm [facility] Work Phone: 04-27-2022 11:08-0400 Body mass index (BMI) [Ratio] 21.4 kg/m2 [facility] Work Phone: 04-27-2022 11:08-0400 Body temperature 97.3 [degF] [facility] Work Phone: 04-27-2022 11:08-0400 Body weight 69.85 kg [facility] Work Phone: 04-27-2022 11:08-0400 Respiratory rate 16 /min [facility] Work Phone: 04-27-2022 11:08-0400 SaO2% (BldA) [Mass fraction] 97 % [facility] Work Phone: 04-24-2022 18:08-0400 Body temperature 97.3 [degF] [facility] Work Phone: 04-24-2022 18:08-0400 Diastolic blood pressure 77 mm[Hg] [facility] Work Phone: 04-24-2022 18:08-0400 Heart rate 69 /min [facility] Work Phone: 04-24-2022 18:08-0400 Respiratory rate 16 /min [facility] Work Phone: 04-24-2022 18:08-0400 SaO2% (BldA) [Mass fraction] 99 % [facility] Work Phone: 04-24-2022 18:08-0400 Systolic blood pressure 142 mm[Hg] [facility] Work Phone: 04-24-2022 18:06-0400 Body height 180.34 cm [facility] Work Phone: 04-24-2022 18:06-0400 Body mass index (BMI) [Ratio] 21.5 kg/m2 [facility] Work Phone: 04-24-2022 18:06-0400 Body weight 70 kg [facility] Work Phone: 04-16-2022 17:09-0400 Diastolic blood pressure 79 mm[Hg] [facility] Work Phone: 04-16-2022 17:09-0400 Heart rate 87 /min [facility] Work Phone: 04-16-2022 17:09-0400 Respiratory rate 16 /min [facility] Work Phone: 04-16-2022 17:09-0400 SaO2% (BldA) [Mass fraction] 99 % [facility] Work Phone: 04-16-2022 17:09-0400 Systolic blood pressure 124 mm[Hg] [facility] Work Phone: 04-16-2022 14:42-0400 Body height 180.34 cm [facility] Work Phone: 04-16-2022 14:42-0400 Body mass index (BMI) [Ratio] 21.4 kg/m2 [facility] Work Phone: 04-16-2022 14:42-0400 Body temperature 98.4 [degF] [facility] Work Phone: 04-16-2022 14:42-0400 Body weight 69.85 kg [facility] Work Phone: 04-14-2022 19:38-0400 Diastolic blood pressure 74 mm[Hg] [facility] Work Phone: 04-14-2022 19:38-0400 Heart rate 50 /min [facility] Work Phone: 04-14-2022 19:38-0400 Respiratory rate 16 /min [facility] Work Phone: 04-14-2022 19:38-0400 SaO2% (BldA) [Mass fraction] 99 % [facility] Work Phone: 04-14-2022 19:38-0400 Systolic blood pressure 153 mm[Hg] [facility] Work Phone: 04-14-2022 17:37-0400 Body height 180.34 cm [facility] Work Phone: 04-14-2022 17:37-0400 Body mass index (BMI) [Ratio] 21.4 kg/m2 [facility] Work Phone: 04-14-2022 17:37-0400 Body temperature 97.5 [degF] [facility] Work Phone: 04-14-2022 17:37-0400 Body weight 69.85 kg [facility] Work Phone: 04-02-2022 23:28-0400 Diastolic blood pressure 67 mm[Hg] [facility] Work Phone: 04-02-2022 23:28-0400 Heart rate 60 /min [facility] Work Phone: 04-02-2022 23:28-0400 Respiratory rate 18 /min [facility] Work Phone: 04-02-2022 23:28-0400 SaO2% (BldA) [Mass fraction] 98 % [facility] Work Phone: 04-02-2022 23:28-0400 Systolic blood pressure 131 mm[Hg] [facility] Work Phone: 04-02-2022 21:22-0400 Body height 180.34 cm [facility] Work Phone: 04-02-2022 21:22-0400 Body mass index (BMI) [Ratio] 21.4 kg/m2 [facility] Work Phone: 04-02-2022 21:22-0400 Body temperature 97.6 [degF] [facility] Work Phone: 04-02-2022 21:22-0400 Body weight 69.85 kg [facility] Work Phone: 04-02-2022 08:24-0400 Body temperature 97.52 [degF] SRAY LICEA DO [facility] 04-02-2022 08:24-0400 Diastolic blood pressure 98 mm[Hg] SARY LICEA DO [facility] 04-02-2022 08:24-0400 Heart rate 64 /min SARY LICEA DO [facility] 04-02-2022 08:24-0400 Respiratory rate 18 /min SARY LICEA DO [facility] 04-02-2022 08:24-0400 Systolic blood pressure 150 mm[Hg] SARY LICEA DO [facility] 03-24-2022 00:14-0400 Diastolic blood pressure 65 mm[Hg] [facility] Work Phone: 03-24-2022 00:14-0400 Heart rate 70 /min [facility] Work Phone: 03-24-2022 00:14-0400 Respiratory rate 15 /min [facility] Work Phone: 03-24-2022 00:14-0400 SaO2% (BldA) [Mass fraction] 97 % [facility] Work Phone: 03-24-2022 00:14-0400 Systolic blood pressure 117 mm[Hg] [facility] Work Phone: 03-23-2022 23:17-0400 Body height 180.34 cm [facility] Work Phone: 03-23-2022 23:17-0400 Body mass index (BMI) [Ratio] 21.4 kg/m2 [facility] Work Phone: 03-23-2022 23:17-0400 Body temperature 98 [degF] [facility] Work Phone: 03-23-2022 23:17-0400 Body weight 69.85 kg [facility] Work Phone: 03-09-2022 10:15-0400 Body height 185.42 cm [facility] Work Phone: 03-09-2022 10:15-0400 Body mass index (BMI) [Ratio] 20.2 kg/m2 [facility] Work Phone: 03-09-2022 10:15-0400 Body temperature 97.4 [degF] [facility] Work Phone: 03-09-2022 10:15-0400 Body weight 69.85 kg [facility] Work Phone: 03-09-2022 10:15-0400 Diastolic blood pressure 79 mm[Hg] [facility] Work Phone: 03-09-2022 10:15-0400 Heart rate 69 /min [facility] Work Phone: 03-09-2022 10:15-0400 Respiratory rate 15 /min [facility] Work Phone: 03-09-2022 10:15-0400 SaO2% (BldA) [Mass fraction] 99 % [facility] Work Phone: 03-09-2022 10:15-0400 Systolic blood pressure 120 mm[Hg] [facility] Work Phone: 03-08-2022 15:15-0400 Body height 185.4 cm Segun Joyner MD Work Phone: [facility] 03-08-2022 15:15-0400 Body mass index (BMI) [Ratio] 20.32 kg/m2 Segun Joyner MD Work Phone: [facility] 03-08-2022 15:15-0400 Body temperature 97.7 [degF] Segun Joyner MD Work Phone: [facility] 03-08-2022 15:15-0400 Body weight 69.85 kg Segun Joyner MD Work Phone: [facility] 03-08-2022 15:15-0400 Diastolic blood pressure 50 mm[Hg] Segun Joyner MD Work Phone: [facility] 03-08-2022 15:15-0400 Heart rate 68 /min Segun Joyner MD Work Phone: [facility] 03-08-2022 15:15-0400 Respiratory rate 16 /min Segun Joyner MD Work Phone: [facility] 03-08-2022 15:15-0400 SaO2% (BldA) [Mass fraction] 99 % Segun Joyner MD Work Phone: [facility] 03-08-2022 15:15-0400 Systolic blood pressure 99 mm[Hg] Segun Joyner MD Work Phone: [facility] 03-07-2022 15:31-0400 Diastolic blood pressure 86 mm[Hg] [facility] Work Phone: 03-07-2022 15:31-0400 Heart rate 88 /min [facility] Work Phone: 03-07-2022 15:31-0400 Respiratory rate 16 /min [facility] Work Phone: 03-07-2022 15:31-0400 Systolic blood pressure 139 mm[Hg] [facility] Work Phone: 03-07-2022 12:50-0400 Body height 185.42 cm [facility] Work Phone: 03-07-2022 12:50-0400 Body mass index (BMI) [Ratio] 20.2 kg/m2 [facility] Work Phone: 03-07-2022 12:50-0400 Body temperature 97.1 [degF] [facility] Work Phone: 03-07-2022 12:50-0400 Body weight 69.85 kg [facility] Work Phone: 03-07-2022 12:50-0400 SaO2% (BldA) [Mass fraction] 100 % [facility] Work Phone: 03-05-2022 12:38-0400 Body temperature 98.42 [degF] NAGA SOLIS MD [facility] 03-05-2022 12:38-0400 Diastolic blood pressure 87 mm[Hg] NAGA SOLIS MD [facility] 03-05-2022 12:38-0400 Heart rate 78 /min NAGA SOLIS MD [facility] 03-05-2022 12:38-0400 Respiratory rate 18 /min NAGA SOLIS MD [facility] 03-05-2022 12:38-0400 Systolic blood pressure 118 mm[Hg] NAGA SOLIS MD [facility] 03-01-2022 13:35-0400 Body temperature 98.24 [degF] LUZ ELENA MCNEILL MD [facility] 03-01-2022 13:35-0400 Diastolic blood pressure 93 mm[Hg] LUZ ELENA MCNEILL MD [facility] 03-01-2022 13:35-0400 Diastolic Blood Pressure NBP 93 1 LUZ ELENA MCNEILL MD [facility] 03-01-2022 13:35-0400 Heart rate 88 /min LUZ ELENA MCNEILL MD [facility] 03-01-2022 13:35-0400 Systolic blood pressure 136 mm[Hg] LUZ ELENA MCNEILL MD [facility] 03-01-2022 13:35-0400 Systolic Blood Pressure NBP 136 1 LUZ ELENA MCNEILL MD [facility] 02-27-2022 20:03-0400 Diastolic blood pressure 78 mm[Hg] [facility] Work Phone: 02-27-2022 20:03-0400 Heart rate 80 /min [facility] Work Phone: 02-27-2022 20:03-0400 Respiratory rate 18 /min [facility] Work Phone: 02-27-2022 20:03-0400 SaO2% (BldA) [Mass fraction] 96 % [facility] Work Phone: 02-27-2022 20:03-0400 Systolic blood pressure 130 mm[Hg] [facility] Work Phone: 02-27-2022 16:27-0400 Body height 180.34 cm [facility] Work Phone: 02-27-2022 16:27-0400 Body mass index (BMI) [Ratio] 22.3 kg/m2 [facility] Work Phone: 02-27-2022 16:27-0400 Body temperature 96.2 [degF] [facility] Work Phone: 02-27-2022 16:27-0400 Body weight 72.57 kg [facility] Work Phone: 02-26-2022 10:41-0400 Body temperature 98.78 [degF] DR ELLEN VALDOVINOS DO [facility] 02-26-2022 10:41-0400 Diastolic blood pressure 79 mm[Hg] DR ELLEN VALDOVINOS DO [facility] 02-26-2022 10:41-0400 Heart rate 83 /min DR ELLEN VALDOVINOS DO [facility] 02-26-2022 10:41-0400 Respiratory rate 18 /min DR ELLEN VALDOVINOS DO [facility] 02-26-2022 10:41-0400 Systolic blood pressure 137 mm[Hg] DR ELLEN VALDOVINOS DO [facility] 01-12-2022 19:50-0400 Diastolic blood pressure 90 mm[Hg] [facility] Work Phone: 01-12-2022 19:50-0400 Heart rate 54 /min [facility] Work Phone: 01-12-2022 19:50-0400 Respiratory rate 18 /min [facility] Work Phone: 01-12-2022 19:50-0400 SaO2% (BldA) [Mass fraction] 97 % [facility] Work Phone: 01-12-2022 19:50-0400 Systolic blood pressure 159 mm[Hg] [facility] Work Phone: 01-12-2022 17:05-0400 Body mass index (BMI) [Ratio] 20.2 kg/m2 [facility] Work Phone: 01-12-2022 17:05-0400 Body temperature 96.8 [degF] [facility] Work Phone: 01-12-2022 17:05-0400 Body weight 69.85 kg [facility] Work Phone: 12-31-2021 17:28-0500 Body temperature 96.8 [degF] MUNIR DAUGHERTY MD [facility] 12-31-2021 17:28-0500 Diastolic blood pressure 45 mm[Hg] MUNIR DAUGHERTY MD [facility] 12-31-2021 17:28-0500 Heart rate 60 /min MUNIR DAUGHERTY MD [facility] 12-31-2021 17:28-0500 Respiratory rate 18 /min MUNIR DAUGHERTY MD [facility] 12-31-2021 17:28-0500 Systolic blood pressure 90 mm[Hg] MUNIR DAUGHERTY MD [facility] 12-04-2021 14:56-0500 Respiratory rate 16 /min [facility] Work Phone: 12-04-2021 11:38-0500 Body mass index (BMI) [Ratio] 23.1 kg/m2 [facility] Work Phone: 12-04-2021 11:38-0500 Body temperature 96.9 [degF] [facility] Work Phone: 12-04-2021 11:38-0500 Body weight 75 kg [facility] Work Phone: 12-04-2021 11:38-0500 Diastolic blood pressure 96 mm[Hg] [facility] Work Phone: 12-04-2021 11:38-0500 Heart rate 67 /min [facility] Work Phone: 12-04-2021 11:38-0500 SaO2% (BldA) [Mass fraction] 99 % [facility] Work Phone: 12-04-2021 11:38-0500 Systolic blood pressure 143 mm[Hg] [facility] Work Phone: 12-04-2021 11:23-0500 Body temperature 97.52 [degF] AJIT BARDALES MD [facility] 12-04-2021 11:23-0500 Diastolic blood pressure 61 mm[Hg] AJIT BARDALES MD [facility] 12-04-2021 11:23-0500 Heart rate 67 /min AJIT BARDALES MD [facility] 12-04-2021 11:23-0500 Respiratory rate 18 /min AJIT BARDALES MD [facility] 12-04-2021 11:23-0500 Systolic blood pressure 157 mm[Hg] AJIT BARDALES MD [facility] 09-10-2021 11:30-0500 Body temperature 98.06 [degF] MUNIR DAUGHERTY MD [facility] 09-10-2021 11:30-0500 Diastolic blood pressure 87 mm[Hg] MUNIR DAUGHERTY MD [facility] 09-10-2021 11:30-0500 Heart rate 85 /min MUNIR DAUGHERTY MD [facility] 09-10-2021 11:30-0500 Respiratory rate 18 /min MUNIR DAUGHERTY MD [facility] 09-10-2021 11:30-0500 Systolic blood pressure 149 mm[Hg] MUNIR DAUGHERTY MD [facility] 08-28-2021 11:40-0500 Body temperature 98.6 [degF] NAGA SOLIS MD [facility] 08-28-2021 11:40-0500 Diastolic blood pressure 90 mm[Hg] NAGA SOLIS MD [facility] 08-28-2021 11:40-0500 Heart rate 70 /min NAGA SOLIS MD [facility] 08-28-2021 11:40-0500 Respiratory rate 18 /min NAGA SOLIS MD [facility] 08-28-2021 11:40-0500 Systolic blood pressure 152 mm[Hg] NAGA SOLIS MD [facility] 06-26-2020 17:25-0400 BMI (Body Mass Index) 22.96 kg/m2 Nas Leong [facility] [facility], MD 06-26-2020 17:25-0400 Body Temperature 98.1 [degF] Nas [facility], MD 06-26-2020 17:25-0400 Body weight 78.93 kg [facility] [facility] 06-26-2020 17:25-0400 BP Diastolic 79 mm[Hg] [facility] [place] [facility] 06-26-2020 17:25-0400 BP Systolic 145 mm[Hg] [facility] 06-26-2020 17:25-0400 Height 185.4 cm [facility] [place] [facility] 06-26-2020 17:25-0400 Pulse (Heart Rate) 55 /min Nas [place] [facility], MD 06-26-2020 17:25-0400 Pulse Oximetry 99 % Nas [place] [facility] , MD 06-26-2020 17:25-0400 Respiratory Rate 16 /min [facility] Encounters Encounter Date Encounter Type Care Provider Facility Start: 04-02-2025 End: 04-02-2025 Patient encounter procedure EUGENIO MAYEN DO [facility] Start: 03-19-2025 End: 03-19-[address] Tyrone Fagan MD [facility] Start: 03-19-2025 End: 03-19-[address] Eugenio Mayen DO Work Phone: [facility] Work Phone: Start: 03-18-2025 [facility] Start: 02-23-2025 Emergency department patient visit GO RICE [facility] Start: 02-23-2025 End: 02-23-2025 Emergency department patient visit Go Rice MD Work Phone: [facility] Emergency Comment on above: Chest pain, unspecif ied type (Primary Dx); Pain of right lower extremity; Acute right-sided low back pain with right-sided sciatica Start: 01-26-2025 End: 01-26-2025 ambulatory EUGENIO MAYEN DO [facility] Start: 01-23-2025 End: 01-23-2025 ambulatory EUGENIO MAYEN DO [facility] Start: 01-14-2025 ambulatory EUGENIO MAYEN DO Facili ty[facility] Start: 01-08-2025 End: 01-08-2025 ambulatory EUGENIO MAYEN DO [facility] Start: 01-03-2025 End: 01-03-2025 Emergency department patient visit Dr. Eugenio Mayen DO Work Phone: -Emergency Department Work Phone: Start: 01-01-2025 End: 01-01-2025 Emergency department patient visit Dr. Eugenio Mayen DO Work Phone: -Emergency Department Work Phone: Start: 12-22-2024 End: 12-22-[address] Eugenio Mayen DO Work Phone: [facility] Work Phone: Start: 12-22-2024 End: 12-22-2024 Patient encounter procedure Aiyana PRINCE -[facility] Work Phone: Start: 12-22-2024 End: 12-22-2024 ambulatory Eugenio Mayen Facility:[facility] Start: 12-18-2024 End: 12-22-2024 ambulatory EUGENIO MAYEN DO [facility] Start: 12-15-2024 End: 12-15-[address] Jacob Dominguez MD [facility] Work Phone: Start: 12-15-2024 End: 12-15-2024 ambulatory Eugenio Vitalyko Facility:[facility] Start: 12-08-2024 End: 12-08-[address] Jacob Dominguez MD -[facility] Work Phone: Start: 12-08-2024 End: 12-08-2024 ambulatory Eugenio Haiderko Facility:[facility] Start: 11-25-2024 End: 11-25-2024 Emergency department patient visit Dr. Abril Velarde DO -Emergency Department Work Phone: Start: 11-18-2024 End: 11-18-2024 Patient encounter procedure Aiyana PRINCE -[facility] Work Phone: Start: 11-18-2024 End: 11-18-2024 ambulatory Eugenio Haiderko Facility:[facility] Start: 11-13-2024 End: 11-13-[address] Jacob Dominguez MD [facility] Work Phone: Start: 11-13-2024 End: 11-13-2024 ambulatory Eugenio Mayen Facility:[facility] Start: 11-05-2024 End: 11-05-2024 Emergency department patient visit Dr. Dennis Strickland DO -Emergency Department Work Phone: Start: 09-22-2024 End: 11-24-2024 ambulatory EUGENIO HALKO DO [facility] Start: 09-22-2024 End: 11-24-2024 Physical therapy management EUGENIO VITALYKO DO [facility] Start: 09-11-2024 End: 09-11-2024 ambulatory EUGENIO HALKO DO Facility[facility] Start: 09-11-2024 End: 09-11-2024 Patient encounter procedure EUGENIO HAIDERKO DO [facility] Start: 07-06-2024 End: 07-06-2024 Emergency department patient visit Abril Velarde Facility:[facility] Start: 07-01-2024 End: 07-01-2024 Emergency department patient visit Barrett Leonard Facility:[facility] Start: 2024 End: 2024 Emergency department patient visit [facility] Work Phone: Start: 12-07-2023 End: 12-08-2023 ambulatory EUGENIO MAYEN DO Facility:[facility] Start: 12-07-2023 End: 12-07-2023 Patient encounter procedure EUGENIO MAYEN DO [facility] Start: 10-10-2023 ambulatory EUGENIO MAYEN DO Facili ty:[facility] Start: 10-09-2023 End: 10-09-2023 Emergency department patient visit [facility] Work Phone: Start: 08-29-2023 ambulatory EUGENIO MAYEN DO Facili ty:[facility] Start: 08-22-2023 ambulatory EUGENIO MAYEN DO Facili ty:[facility] Start: 08-22-2023 End: 08-22-2023 Patient encounter procedure Hamilton Agarwal MD Work Phone: Pain Management Comment on above: Chronic pain syndrom e (Primary Dx) Start: 08-22-2023 End: 08-23-2023 ambulatory HAMILTON AGARWAL Facility:[id number] Start: 08-16-2023 ambulatory EUGENIO MAYEN DO Facili ty:[facility] Start: 08-10-2023 End: 08-11-2023 ambulatory EUGENIO MAYEN DO Facility:[facility] Start: 08-10-2023 End: 08-10-2023 Patient encounter procedure EUGENIO MAYEN DO [facility] Start: 08-09-2023 End: 08-09-2023 Emergency department patient visit [facility] Work Phone: Start: 06-21-2023 ambulatory HAMILTON AGARWAL Faci lity:[phone] Start: 05-31-2023 End: 05-31-2023 Emergency department patient visit [facility] Work Phone: Start: 05-23-2023 Telephone encounter Pro benítez MD Work Phone: [facility] Comment on above: Patient Question Start: 05-10-2023 End: 05-10-2023 ambulatory SARAI VITALYKO IV [facility] Start: 04-30-2023 End: 04-30-2023 ambulatory SARAI VITALYKO IV Facility:[facility] Start: 04-30-2023 Telephone encounter Kadeem salas MD Work Phone: Pain Management Comment on above: Appointment Start: 04-26-2023 Telephone encounter [facility] Provider Jasvir salas Management Comment on above: Future Appointment ( Left Voice Mail) Start: 03-29-2023 End: 03-29-2023 ambulatory SARAI VITALYKO IV Facility[facility] Start: 03-29-2023 End: 03-29-2023 Patient encounter procedure Pro Almonte MD Work Phone: [facility] Comment on above: Other fracture of un specified lumbar vertebra, initial encounter for closed fracture (HCC) (Primary Dx); Lumbar burst fracture, sequela Start: 03-27-2023 Telephone encounter Pro benítez MD Work Phone: [facility] Comment on above: Appointment Start: 03-26-2023 Telephone encounter Pro benítez MD Work Phone: [facility] Comment on above: Orders Start: 02-20-2023 End: 02-20-2023 Emergency department patient visit SARAI HALMARII NOLAND Facility:[facility] Start: 02-11-2023 End: 02-13-2023 Evaluation and management of inpatient PRETTY CARDENAS Facility:[facility] Start: 02-11-2023 End: 02-11-2023 Emergency department patient visit [facility] Start: 01-13-2023 End: 01-14-2023 Emergency department patient visit [facility] Start: 12-15-2022 End: 12-16-2022 ambulatory EUGENIO FAHEEM DO Facility:[facility] Start: 12-15-2022 End: 12-15-2022 Patient encounter procedure EUGENIO MAYEN DO [facility] Start: 12-13-2022 End: 12-14-2022 ambulatory EUGENIO MAYEN DO Facility: Start: 12-13-2022 End: 12-13-2022 Patient encounter procedure EUGENIO MAYEN DO [facility] Start: 12-04-2022 End: 12-04-2022 Patient encounter procedure EUGENIO MAYEN DO [facility] Start: 10-02-2022 End: 10-02-2022 Patient encounter procedure EUGENIO MAYEN DO [facility] Start: 09-19-2022 End: 09-19-2022 ambulatory SARAI HALKO LUDIN Facility:[facility] Start: 09-19-2022 End: 09-19-2022 Patient encounter procedure Hubert Jett MD Work Phone: General Surgery Comment on above: Anal fissure (Primar y Dx) Start: 09-19-2022 End: 09-19-2022 Patient encounter procedure DOUG RM DO [facility] Start: 09-16-2022 End: 09-16-2022 Emergency department patient visit [facility] Start: 09-04-2022 End: 09-04-2022 Patient encounter procedure EUGENIO MAYEN DO [facility] Start: 08-12-2022 End: 08-12-2022 Emergency department patient visit [facility] Start: 08-04-2022 End: 08-04-2022 Emergency department patient visit [facility] Start: 07-24-2022 End: 07-24-2022 Patient encounter procedure EUGENIO MAYEN DO [facility] Start: 04-27-2022 End: 04-27-2022 Emergency department patient visit [facility] Start: 04-24-2022 End: 04-24-2022 Emergency department patient visit [facility] Start: 04-16-2022 End: 04-16-2022 Emergency department patient visit [facility] Start: 04-14-2022 End: 04-14-2022 Emergency department patient visit [facility] Start: 04-02-2022 End: 04-03-2022 Emergency department patient visit [facility] Start: 04-02-2022 End: 04-02-2022 Emergency department patient visit SARY LICEA DO [facility] Start: 03-26-2022 End: 03-26-2022 Emergency department patient visit DR NAWAF TOUSSAINT [facility] Start: 03-23-2022 End: 03-24-2022 Emergency department patient visit [facility] Start: 03-09-2022 End: 03-09-2022 Emergency department patient visit [facility] Start: 03-08-2022 End: 03-12-2022 Outreach Lab EUGENIO MAYEN DO [facility] Start: 03-08-2022 End: 03-08-2022 Emergency department patient visit Segun Joyner MD Work Phone: [facility] Comment on above: Acute sciatica (Prim darron Dx) Start: 03-07-2022 End: 03-07-2022 Emergency department patient visit [facility] Start: 03-07-2022 End: 03-07-2022 Patient encounter procedure MARCELL RAMSEY MD [facility] Start: 03-05-2022 End: 03-05-2022 Emergency department patient visit NAGA SOLIS MD [facility] Start: 03-01-2022 End: 03-01-2022 Emergency department patient visit LUZ ELENA MCNEILL MD [facility] Start: 02-27-2022 End: 02-27-2022 Emergency department patient visit [facility] Start: 02-27-2022 End: 02-27-2022 Emergency department patient visit SARY LICEA DO [facility] Start: 02-26-2022 End: 02-26-2022 Emergency department patient visit DR ELLEN VALDOVINOS DO [facility] Start: 02-17-2022 End: 02-17-2022 Patient encounter procedure EUGENIO VITALYMARII DO [facility] Start: 01-12-2022 End: 01-12-2022 Emergency department patient visit [facility] Start: 12-31-2021 End: 12-31-2021 Emergency department patient visit MUNIR DAUGHERTY MD [facility] Start: 12-04-2021 End: 12-04-2021 Emergency department patient visit [facility] Start: 12-04-2021 End: 12-04-2021 Emergency department patient visit AJIT BARDALES MD [facility] Start: 09-10-2021 End: 09-10-2021 Emergency department patient visit MUNIR DAUGHERTY MD [facility] Start: 08-28-2021 End: 08-28-2021 Emergency department patient visit NAGA SOLIS MD [facility] Start: 04-15-2021 Rx Renewal Eugenio asher Work Phone: [facility] Work Phone: Start: 06-26-2020 End: 06-26-2020 Emergency department patient visit Nas Leong Work Phone: [facility] Comment on above: Lumbar contusion, in itial encounter (Primary Dx); Sprain of left wrist, initial encounter Start: 11-01-2017 End: 11-01-2017 Emergency department patient visit [facility] Start: 09-24-2017 End: 09-24-2017 Ambulatory [facility] Start: 05-29-2017 Ambulatory [facility] Start: 05-28-2017 Ambulatory [facility] Procedures Date Procedure Procedure Detail Performing Clinician Start: 02-23-2025 Dup-scan xtr veins unilateral/limited study Go Rice MD Work Phone: Start: 02-23-2025 Radiologic exam ches t single view Go Rice MD Work Phone: Start: 02-23-2025 Basic metabolic pane l calcium total Go Rice MD Work Phone: Start: 02-23-2025 Ecg routine ecg w/le ast 12 lds trcg only w/o i&r Go Rice MD Work Phone: Start: 01-03-2025 Urnls dip stick/tabl et reagent auto microscopy Dr. Eugenio Mayen DO Work Phone: Start: 01-01-2025 Urnls dip stick/tabl et reagent auto microscopy Dr. Eugenio Mayen DO Work Phone: Start: 01-01-2025 CT of abdomen and pe lvis without contrast Dr. Eugenio Mayen DO Work Phone: Start: 01-01-[address] Eugenio Mayen DO Work Phone: Start: 12-22-2024 MRI of lumbar spine Dr. Eugenio Mayen DO Work Phone: Start: 12-08-2024 MRI of joint of lowe r extremity Dr. Eugenio Mayen DO Work Phone: Start: 11-25-2024 Plain X-ray of shoulder Dr. Eugenio Mayen DO Work Phone: Start: 11-25-2024 CT cervical spine wi thout contrast Dr. Eugenio Mayen DO Work Phone: Start: 11-25-2024 CT of head without contrast Dr. Eugenio Mayen DO Work Phone: Start: 11-18-2024 X-ray of lumbar spin e, two or three views Dr. Eugenio Mayen DO Work Phone: Start: 11-05-2024 Plain x-ray of elbow Dr Shadi Mayen DO Work Phone: Start: 11-05-2024 Plain x-ray of humerus Dr. Eugenio Mayen DO Work Phone: Start: 11-05-2024 Plain X-ray of shoulder Dr. Eugenio Mayen DO Work Phone: Start: 11-05-2024 X-ray of foot, three or more views Dr. Eugenio Mayen DO Work Phone: Start: 11-05-2024 CT cervical spine wi thout contrast Dr. Eugenio Mayen DO Work Phone: Start: 11-05-2024 CT of head without contrast Dr. Eugenio Mayen DO Work Phone: Start: 11-05-2024 CT of thorax, abdome n and pelvis with contrast Dr. Eugenio Mayen DO Work Phone: Start: 10-09-2023 CT of head without contrast Start: 10-09-2023 CT cervical spine wi thout contrast Start: 10-09-2023 X-ray of lumbar spin e, two or three views Start: 08-09-2023 CT of lumbar spine Start: 02-12-2023 Antibody screen EUGENIO MAYEN LUDIN Comment on above: Order Comment: Speci men Type: BLOOD SPECIMENOrdering Facility: [facility] Address: [address] [place], [place] [id number] Performed By: #### T SCR ####[facility] BLOOD BANKCLIA [id number] [place] [address] [place] Start: 02-11-2023 Pelvis X-ray Start: 02-11-2023 Plain X-ray of femur Start: 02-11-2023 CT cervical spine wi thout contrast Start: 02-11-2023 CT of chest and abdomen Start: 02-11-2023 CT of head without contrast Start: 02-11-2023 CT of lumbar spine Start: 01-13-2023 Plain X-ray of femur Start: 01-13-2023 Plain x-ray of pelvi s and lower extremity Start: 01-13-2023 Ultrasound of scrotu m with Doppler and color flow imaging Start: 09-16-2022 Plain x-ray of pelvi s and lower extremity Start: 09-16-2022 CT of head without contrast Start: 09-16-2022 Plain X-ray of shoulder Start: 09-16-2022 X-ray of lumbar spin e, two or three views Start: 08-12-2022 CT of abdomen and pe lvis without contrast Start: 04-16-2022 Computed tomography of abdomen and pelvis with intravenous contrast Start: 04-14-2022 End: 04-14-2022 Plain chest X-ray Start: 04-14-2022 CT cervical spine wi thout contrast Start: 04-14-2022 Computed tomography of thoracic spine without contrast Start: 04-14-2022 CT of head without contrast Start: 04-14-2022 CT of lumbar spine Start: 04-02-2022 X-ray of lumbosacral spine Start: 04-02-2022 X-ray of both feet Start: 03-23-2022 X-ray of lumbar spin e, two or three views Start: 03-23-2022 Pelvis X-ray Start: 03-09-2022 CT of chest, abdomen and pelvis without contrast Start: 03-07-2022 X-ray of lumbar spin e, two or three views Start: 02-27-2022 X-ray of lumbar spin e, two or three views Start: 01-12-2022 CT of abdomen and pe lvis without contrast Start: 01-12-2022 Urine culture Start: 12-04-2021 Plain x-ray of humerus Start: 12-04-2021 CT cervical spine wi thout contrast Start: 12-04-2021 CT Chest, Abd, Pel w/Contrast Start: 12-04-2021 CT of head without contrast Start: 06-26-2020 Radex humerus minimu m 2 views Nas Dirando Work Phone: Start: 06-26-2020 Radex shoulder compl ete minimum 2 views Nas DirMabLyteo Work Phone: Start: 06-26-2020 Radex spine lumbosac ral 2/3 views Nas DirMabLyteo Work Phone: Start: 06-26-2020 Radex wrist complete minimum 3 views Nas DirMabLyteo Work Phone: Start: 08-30-2017 Lipid 1996 panel - S david or Plasma Hamilton Agarwal MD Work Phone: Start: 07-31-1988 Colonoscopy Hubert jenkins MD Work Phone: Colonoscopy Eugenio Mayen Work Phone: Craniotomy Eugenio Mayen Work Phone: Craniotomy [place] [place] Comment on above: aneurysm Femur nail, sterile (physical object) NAGA SOLIS MD Urine culture Plan of Treatment Date Care Activity Detail Author Start: 06-15-2028 DTaP/Tdap/Td vaccine (2 - Td or Tdap) DTaP/Tdap/Td vaccine (2 - Td or Tdap) [facility] Start: 06-15-2028 Urine microalbumin profile DTaP,Tdap,Td Vaccine (3 - Td or Tdap) [facility] Start: 02-13-2026 DIABETES SCREEN DIABETES SCREEN [facility] Start: 02-13-2026 Diabetes Screening Diabetes Screenin g [facility] Start: 03-19-2025 X-ray of lumbosacral spine L/S Spine Bending Flex/Ext [facility] Start: 03-19-2025 XR Spine Lumbar and Sacrum Views [facility] Start: 01-03-2025 [facility] Start: 01-01-2025 End: 01-01-2025 [facility] Start: 11-25-2024 [facility] Start: 11-05-2024 [facility] Start: 2024 [facility] Start: 10-09-2023 [facility] Start: 08-09-2023 [facility] Start: 06-22-2023 Influenza vaccination C [facility] Start: 11-03-2022 DIABETES SCREEN DIABETES SCREEN [facility] [place] Start: 10-22-2022 ADVANCE DIRECTIVE DISCUSSION ADVANCE DIRECTIVE DISCUSSION [facility] Start: 10-22-2022 DEPRESSION ASSESSMENT [facility] Start: 08-30-2022 Lipid 1996 panel - S david or Plasma Lipid Screening [facility] Start: 08-30-2022 LIPID SCREEN LIPID SCREEN [facility] Start: 08-30-2022 PROSTATE CANCER SCREENING DISCUSSION PROSTATE CANCER SCREENING DISCUSSION [facility] Start: 06-22-2022 Influenza vaccination S [facility] Start: 04-24-2022 Referral to service [facility] Work Phone: Start: 10-22-2021 ADVANCE DIRECTIVE DISCUSSION ADVANCE DIRECTIVE DISCUSSION [facility] Start: 10-22-2021 DEPRESSION ASSESSMENT [facility]ION [facility] Start: 02-05-2021 Pneumococcal Vaccine : 65+ (1 - PCV) Pneumococcal Vaccine: 65+ (1 - PCV) [facility] Start: 02-05-2021 PNEUMOCOCCAL: 65+ (1 - PCV) PNEUMOCOCCAL: 65+ (1 - PCV) [facility] Start: 06-22-2020 Influenza vaccination Flu vaccine (# 1) [facility] Start: 2016 RSV Vaccine (1 - 1-d ose 60+ series) RSV Vaccine (1 - 1-dose 60+ series) [facility] Start: 02-05-2006 SHINGRIX VACCINE (1 of 2) SHINGRIX VACCINE (1 of 2) [facility] Start: 02-05-2001 COLOGUARD (FIT-DNA) COLOGUARD (FIT-D NA) [facility] Start: 02-05-2001 Colonoscopy COLONOSCOPY [facility] Start: 02-05-2001 COLORECTAL CANCER SCREENING COLORECTAL CANCER SCREENING [facility] Start: 02-05-[address] COLONOGRAPHY [facility] [place] Start: 02-05-2001 FECAL OCCULT BLOOD FECAL OCCULT BLOO D [facility] Start: 02-05-2001 SIGMOIDOSCOPY SIGMOIDOSCOPY [facility] Start: 02-05-1975 Urine microalbumin profile DTAP,TDAP,TD (1 - Tdap) [facility] Start: 02-05-1974 HEPATITIS C SCREENING HEPATITIS C SC REEALEX [facility] Start: 02-05-1961 COVID-19 Vaccine (1) COVID-19 Vaccin e (1) [facility] Start: 1955 COVID-19 VACCINE (#1) COVID-19 VACCI NE (#1) [facility] Start: 1955 ABDOMINAL AORTIC ANEURYSM SCREENING ABDOMINAL AORTIC ANEURYSM SCREENING [facility] End: 04-27-2024 Mri spinal canal lumbar w/o contrast material MRI LUMBAR SPINE WO IVCON Radiology Routine Other fracture of unspecified lumbar vertebra, initial encounter for closed fracture (HCC) 1 Occurrences starting 03/29/2023 until 04/27/2024 [facility] Work Phone: Comment on above: 1 Occurrences starti ng 03/29/2023 until 04/27/2024 Patient Education [facility] Work Phone: Patient referral [facility] Work Phone: [facility] Immunizations Immunization Date Immunization Notes Care Provider Manju woods 11-06-2024 tetanus toxoid, redu gaby diphtheria toxoid, and acellular pertussis vaccine, adsorbed; Translations: [Boostrix (Tdap)] EUGENIO MAYEN DO [facility] 10-02-2024 Pneumococcal conjuga te PCV20, polysaccharide [id number] conjugate, adjuvant, PF; Translations: [Prevnar 20] EUGENIO MAYEN DO [facility] 09-11-2024 influenza, high dose seasonal, preservative-free; Translations: [Afluria PF Prefilled Syringe ] EUGENIO MAYEN DO [facility] 09-24-2023 influenza, high dose seasonal, preservative-free; Translations: [Fluad Quadrivalent PF ] EUGENIO VITALYMARII FLEMING [facility] 06-15-2018 tetanus toxoid, redu gaby diphtheria toxoid, and acellular pertussis vaccine, adsorbed NAGA SOLIS MD [facility] 06-15-2018 diphtheria and tetan us toxoids, adsorbed for pediatric use EUGENIO MAYEN [facility] Comment on above: Result Comment: Unit : Unknown Route: Intramuscular [employer] Certified Network Associate: Glaxo Hernandez Wong 08-28-2017 influenza virus vacc ine, unspecified formulation Hamilton Agarwal MD Work Phone: [facility] Payers Date Payer Category Payer Self-pay [id number] 2022 Medicaid [id number] 2017 Unknown 2017 Medicaid HMO [employer] [place] MEDICA[place] [id number] 1998 Medicaid [id number]. [id number] 1998 Unknown [id number] 1956 Unknown [id number] 2.16840.1.059962.3.579.2.651 1956 Unknown [id number] 2.16.840.1.783191.3.579.2.627 1956 Unknown [id number] 2.840.1.443248.3.579.2.62 1956 Unknown [id number] 2.16.840.1.990468.3.579.2.627 1956 Unknown [id number] 2.16.840.1.560409.3.579.2.627 1956 Unknown [id number] 2.16840.1.460292.3.579.2.627 1956 Unknown [id number] 2.16840.1.787985.3.579.2.627 1956 Unknown [id number] 2.16.840.1.996494.3.579.2.627 1956 Unknown [id number] 2.16.840.1.670013.3.579.2.627 1956 Unknown [id number] 2.16.840.1.582789.3.579.2.201 1956 Unknown [id number] 2.16.840.1.130109.3.579.2.201 1956 Unknown [id number] 2.16.840.1.655725.3.579.2.201 1956 Unknown [id number] 2..840.1.694446.3.579.2.62 1956 Unknown [id number] 2..840.1.897942.3.579.2.62 1956 Unknown [id number] 2.840.1.935507.3.579.2.62 1956 Unknown [id number] ..840.1.906582.3.579.2.62 1956 Unknown [id number] .840.1.740486.3.579.2. 1956 Unknown [id number] .840.1.801504.3.579.2. 1956 Unknown [id number] .840.1.973712.3.579.2.62 1956 Unknown [id number] 2.840.1.611492.3.579.2.627 Unknown [id number] 2.840.1.391698.3.579.2.462 Unknown [id number] 2.840.1.443178.3.579.2.462 Unknown [id number] 2.840.1.275895.3.579.2.462 Unknown [id number] 2..840.1.678293.3.579.2.462 Unknown [id number] 2..840.1.620986.3.579.2.462 Unknown [id number] 2..840.1.266888.3.579.2.462 Unknown [id number] 2.16.840.1.610637.3.579.2.462 Unknown [id number] 2..840.1.816940.3.579.2.462 Unknown [id number] 2.16.840.1.625936.3.579.2.462 Unknown [id number] 2.16.840.1.663073.3.579.2.462 Unknown [id number] 2.16.840.1.645486.3.579.2.462 Unknown [id number] 2.16.840.1.259788.3.579.2.462 Unknown [id number] 2.16.840.1.075176.3.579.2.462 Unknown [id number] 2.16.840.1.627182.3.579.2.462 Social History Date Type Detail Facility Start: 06-26-2020 End: 11-01-2023 Tobacco smoking status NHIS Former smoker [place], [place] Start: 06-26-2020 End: 08-22-2023 Alcohol intake Current non-drinker of alcohol (finding) [place], [place] Start: 1955 Sex Assigned At Not on file [place], [place] Start: 02-26-2022 End: 09-19-2022 Exposure to SARS-CoV-2 (event) Not sure [place] Start: 03-29-2023 End: 02-23-2025 Rarely consumes alcohol Rarely consumes alcohol [facility] Sex Assigned At [facility] Start: 02-27-2022 End: 2024 Tobacco smoking status MIIS Unknown if ever smoked [facility] Start: 02-10-2019 None [facility] Start: 02-10-2019 Alone [facility] Start: 1955 Sex Assigned At Male [facility] Start: 05-28-2017 End: 02-23-2025 Tobacco use and exposure Smokeless tobacco non-user [facility] Work Phone: End: 10-22-1997 History of tobacco use Current smoker [facility] End: 10-22-1997 History of tobacco use Cigarette Smoker [facility] Start: 09-19-2022 Tobacco Comment Quit 1998 [facility] Start: 01-28-2019 Alcohol Comment Quit 1986 [facility] Start: 02-12-2023 History SDOH Financial 5 [facility] Start: 02-12-2023 History SDOH Food Worry 1 [facility] Start: 02-12-2023 History SDOH Transpo rt Med 2 [facility] Start: 03-29-2023 End: 02-23-2025 Tobacco use panel [facility] How hard is it for y ou to pay for the very basics like food, housing, medical care, and heating Not hard at all [facility] (I/We) worried calebmary er (my/our) food would run out before (I/we) got money to buy more. Never true [facility] In the past 12 month s, was there a time when you were not able to pay the mortgage or rent on time? No [facility] Start: 08-12-2014 End: 01-03-2025 Sex Male (finding) [facility] History of tobacco use Passive smoker [facility] Start: 02-23-2025 Alcoholic beverage intake Ex-drinker (finding) [facility] Functional Status Date Assessment Result Facility 02-23-2025 Are you deaf, or do you have serious difficulty hearing No 02/23/2025 5:07 AM Nataliya Womack RN [facility] 02-23-2025 Are you blind, or do you have serious difficulty seeing, even when wearing glasses No 02/23/2025 5:07 AM Nataliya Womack RN [facility] 02-23-2025 Do you have serious difficulty walking or climbing stairs No 02/23/2025 5:07 AM Nataliya Womack RN [facility] 02-23-2025 Do you have difficul ty dressing or bathing No 02/23/2025 5:07 AM Nataliya Womack RN [facility] 02-23-2025 Because of a physica l, mental, or emotional condition, do you have difficulty doing errands alone such as visiting a physician's office or shopping No 02/23/2025 5:07 AM Nataliya Womack RN [facility] 04-02-2022 Functional Status ID band on, Allergy Band on, Call device within reach, Bed in low position, Wheels locked, Upper/Half-Length side-rails up, Phone within reach, personal items within reach, Assistive devices within reach, Toileting device within reach, Bedside Cart Locked, Visitor at bedside, Safety level maintained [facility] 03-05-2022 Functional Status [facility] 03-01-2022 Functional Status [facility] 02-26-2022 Functional Status [facility] Mental Status Date Assessment Result Facility 02-23-2025 Because of a physica l, mental, or emotional condition, do you have serious difficulty concentrating, remembering, or making decisions No 02/23/2025 5:07 AM Nataliya Womack RN [facility] 11-25-2024 Cognitive function Level Of Cons ciousness Awake;Alert [facility] Work Phone: 04-02-2022 Mental Status Oriented x 4 [facility] 03-05-2022 Mental Status [facility] 03-01-2022 Mental Status [facility] 02-26-2022 Mental Status [facility] Clinical Notes 12-31-2020 to 04-02-2025 Note Date & Type Note Facility 04-02-2025 Note Exam Date Time Procedure Performing Provider Status 04/02/25 4:16 PM XR Shoulder Minimum 2 Views Left ALMA ROSA FLEMING MD; Auth ([id number]) [id number] ORIGINAL EXAMINATION: TWO XRAY VIEWS OF THE LEFT SHOULDER 04/02/2025 4:16 pm COMPARISON: 09/11/2024. HISTORY: ORDERING SYSTEM PROVIDED HISTORY: Reason for Exam: pain over clavicle and humeral head after fall; felt pop; poor range of motion FINDINGS: No fracture or malalignment. Chronic mid-humeral shaft healed fracture deformity. Moderate AC joint osteoarthritis with joint space narrowing and marginal osteophytes. Borderline acromiohumeral interval. Subcortical cystic changes at the greater tuberosity, indicative of rotator cuff tendinopathy IMPRESSION: Moderate AC joint osteoarthritis. Evidence of rotator cuff tendinopathy. Interpreted by: Alma Rosa Worthington Preliminary Report By: Alma Rosa Worthington Electronically signed By Alma Rosa Worthington Dictated Date: 04/02/2025 4:22:45 PM Prelim Date: 04/02/2025 4:24:43 PM Sign Date: 04/02/2025 4:24:43 PM [facility]ing [facility] Emergency department Note* Leela Wood RN - 02/23/2025 6:34 AM EDT Patient not in distress at time of discharge. Patient educated on new medications and follow up instructions and education provided, any and all questions answered. [facility]05-05-2025 Emergency department Note* Leela Wood RN - 02/23/2025 6:34 AM EDT Patient not in distress at time of discharge. Patient educated on new medications and follow up instructions and education provided, any and all questions answered. * Go Rice MD - 02/23/2025 4:48 AM EDT Images from the original note were not included. FINAL IMPRESSION(S) ICD-10-CM 1. Chest pain, unspecified type R07.9 2. Pain of right lower extremity M79.604 oxyCODONE-acetaminophen (PERCOCET) 5- 325 mg tablet 3. Acute right-sided low back pain with right-sided sciatica M54.41 oxyCODONE- acetaminophen (PERCOCET) 5-325 mg tablet DISPOSITION PLAN Discharge DISCHARGE MEDICATION(S) / CHANGES TO HOME MEDICATIONS Current Discharge Medication List START taking these medications Details oxyCODONE-acetaminophen (PERCOCET) 5-325 mg tablet Take 1 tablet by mouth every 6 hours as needed for Pain Qty: 12 tablet, Refills: 0 Associated Diagnoses: Pain of right lower extremity; Acute right-sided low back pain with right-sided sciatica CHIEF COMPLAINT Chief Complaint Patient presents with Chest Pain Leg Pain right TRIAGE NOTE: Pt ambulated into triage c/o chest pain and right leg pain. Pt states the chest pain is from gas. It started approx 1 hour ago. Pt states he twisted his leg when he turned to help someone. Pt states pain is the back of his knee which also started approx an hour ago. HPI / RELEVANT DOLORES Mari is a 70 y.o. male in bed IR ED 10/22 who presents to the ED with multiple complaints. States he is having chest pain. States he is also having back pain. Has pain all the way down his right leg. States that he is also having pain behind his right knee. He states that he was [facility] He states that he fell twice off of the ladder. Has not take anything for his symptoms. Symptoms started approximately 3 hours prior to arrival whenhe fell. PAST MEDICAL HISTORY / FAMILY HISTORY History reviewed. No pertinent past medical history. No family history on file. Above past medical conditions reviewed and verified by me. SOCIAL HISTORY Social History[1] Above social elements reviewed and verified by me. SURGICAL HISTORY History reviewed. No pertinent surgical history. CURRENT MEDICATIONS Outpatient Medications Marked as Taking for the 02/23/25 encounter (Hospital Encounter) Medication Sig Dispense Refill oxyCODONE-acetaminophen (PERCOCET) 5-325 mg tablet Take 1 tablet by mouth every 6 hours as needed for Pain 12 tablet 0 ALLERGIES Allergies Allergen Reactions Adhesive Ibuprofen Ultram [Tramadol] Vicodin [Hydrocodone-Acetaminophen] PERTINENT PHYSICAL EXAM VITAL SIGNS: ED Triage Vitals [02/23/25 0420] BP (!) 157/80 Temp 97.7 F (36.5 C) Pulse 60 Resp 16 SpO2 99 % Weight 159 lb (72.1 kg) [place] Coma Scale Score 15 BMI (Calculated) 22.2 Alert, resting, heart is regular rate and rhythm, lungs are clear, abdomen soft nontender, no chesttenderness or crepitus, diffuse tenderness with palpation to the bilateral lower lumbar musculature, no midline tenderness, distal pulses intact, diffuse tenderness with palpation to the right posterior thigh and leg, no gross bony deformity EKG Results for orders placed or performed during the hospital encounter of 02/23/25 EKG Standard 12 lead Result Value Ref Range Heart Rate 57 bpm RR INTERVAL 1,056 ms VT Interval 196 ms QRSD Interval 80 ms QT Interval 396 ms QTc Interval 385 ms QRS Provencal -20 deg T Wave Provencal 61 deg REPORT - NORMAL ECG - REPORT Sinus rhythm Interpreting Phys Confirmed by: Go Rice) 23-Feb-2025 04:31:11 RADIOLOGY I have personally visualized the images and my interpretation is no acute chest abnormality I reviewed the radiologist interpretation: Results for orders placed or performed during the hospital encounter of 02/23/25 [place] [id number] Narr[place] [id number] 02/23/2025 5:51 AM Reason for exam:leg pain amd swelling Reason for Exam: leg pain amd swelling. Duplex ultrasound examination of the deep venous system of the right lower extremity including evaluation of the common femoral vein, femoral vein, popliteal vein, posterior tibial veins, and peroneal veins. It demonstrated good compressibility and augmentation without reflux throughout. No luminal thrombus was demonstrated. Impression 1. NO EVIDENCE OF DEEP VENOUS THROMBOSIS IN THE RIGHT LOWER EXTREMITY. 2. NO REFLUX WAS DEMONSTRATED. Workstation ID:[id number] Electronically Signed by: Jun Bro M.D., 02/23/2025 5:59 AM XR-CHEST PORTABLE STAT Narrative XR-CHEST PORTABLE STAT [id number] 02/23/2025 5:04 AM History: chest pain History: Chest Pain; Leg Pain. Number of Series/Images: 1. Comparison: None Findings: Single mobile view of the chest demonstrates normal cardiomediastinal silhouette with midline trachea and clear lung barry bilaterally. Lungs appear somewhat hyperinflated. Impression PULMONARY HYPERINFLATION WITH NO ACUTE PROCESS SEEN. Workstation ID:[id number] Electronically Signed by: Jun Bro M.D., 02/23/2025 5:05 AM LAB RESULTS CBC W/DIFF - Abnormal; Notable for the following components: Result Value Ref Range Status RBC 4.01 (*) 4.30 - 5.86 M/uL Final HGB 12.4 (*) 13.1 - 17.6 g/dL Final HCT 36.2 (*) 39.0 - 51.5 % Final Neutrophils Absolute 7.4 (*) 2.0 - 7.3 K/uL Final All other components within normal limits HS TROPONIN I - Normal Narrative: The Access high sensitivity troponin assay is not intended to be used in isolation; results should be interpreted in conjunction with other diagnostic tests and clinical information. BASIC METABOLIC PANEL Narrative: KDIGO 2012 GFR Categories Stage Description eGFR (mL/min/1.73m2) G1 Normal or high >=90 G2 Mildly decreased 60-89 G3a Mildly to moderately decreased 45-59 G3b Moderately to severely decreased 30-44 G4 Severely decreased 15-29 G5 Kidney Failure <15 MEDICAL DECISION MAKING ? Differential Diagnosis / Diagnostic Considerations: Chest wall pain, knee sprain, DVT, electrolyte abnormality, acute coronary syndrome ED COURSE Repeat Vitals: BP: 152/87 (02/23 515) Temp: 97.7 F (36.5 C) (02/24 420) Pulse: 60 (02/23 515) Resp: 14 (02/23 515) SpO2: 99 % (02/23 515) FiO2 (%): -- O2 Flow Rate (L/min): -- Cardiac (WDL): Within Defined Limits (02/23 527) Cardiac Rhythm: -- Medications fentaNYL citrate (PF) (SUBLIMAZE) injectable syringe 50 mcg (50 mcg IV Push Not Given 02/23/25507) ondansetron (ZOFRAN) injection 4 mg (4 mg IV Push Given 02/23/25502) oxyCODONE-acetaminophen (PERCOCET) 5-325 mg per tablet 1 tablet (1 tablet Oral Given 02/23/25523) Al-Mg hydroxide-simethicone (MAALOX) 200-200-20 mg/5 mL 30 mL, lidocaine (XYLOCAINE) 2 % 15 mL (45 mLs Oral Given 02/23/25523) Patient to the emergency department with complaint of leg pain, chest pain and back pain after he had fallen a few times off of a ladder earlier today. EKG is nondiagnostic. Chest x-ray is clear. DVTscreen is negative. Laboratory workup is negative. This includes a troponin. The patient will be treated symptomatically. Is to follow-up with primary care physician. Electronically signed by: Go Rice MD, 02/23/2025 [1] Social History Socioeconomic History Marital status: Tobacco Use Smoking status: Former Types: Cigarettes Passive exposure: Past Smokeless tobacco: Never Substance and Sexual Activity Alcohol use: Not Currently Drug use: Never Sexual activity: Not Currently Social Drivers of Health Financial Resource Strain: Low Risk (02/12/2023) Received from [facility] Overall Financial Resource Strain (CARDIA) Difficulty of Paying Living Expenses: Not hard at all Food Insecurity: No Food Insecurity (02/12/2023) Received from [facility] Hunger Vital Sign Worried About Running Out of Food in the Last Year: Never true Ran Out of Food in the Last Year: Never true Transportation Needs: No Transportation Needs (02/12/2023) Received from [facility] PRAPARE - Transportation Lack of Transportation (Medical): No Lack of Transportation (Non-Medical): No Housing Stability: Low Risk (02/12/2023) Received from [facility] Housing Stability Vital Sign Unable to Pay for Housing in the Last Year: No Number of Places Lived in the Last Year: 1 Unstable Housing in the Last Year: No Go Rice MD 02/23/25 06 * ISRAEL Espinoza - 02/23/2025 4:25 AM EDT Pt states they are in 10/10 pain. Leela RN notified * Sandy Sifuentes RN - 02/23/2025 4:06 AM EDT Pt ambulated into triage c/o chest pain and right leg pain. Pt states the chest pain is from gas. It started approx 1 hour ago. Pt states he twisted his leg when he turned to help someone. Pt states pain is the back of his knee which also started approx an hour ago. [facility] Inst[facility]* Patient Education - Go Rice MD - 02/23/2025 6:05 AM EDT Images from the original note were not included. [id number] Self-Care for Low Back Pain Most people have low back pain now and then. In many cases, it isn?t serious, and self-care can help. Sometimes low back pain can be a sign of a bigger problem. Call your healthcare provider if your pain returns often or gets worse over time. There are plenty of ways to take care of your back. Get regular exercise, lose any excess weight, and practice good posture. Take a short rest Lying down during the day may be helpful for short periods of time if pain worsens with sitting or standing. It may help to have a pillow under the knees when lying on your back. But, keep in mind, long-term bed rest could be damaging. Reduce pain and swelling Cold reduces swelling. Both cold and heat can reduce pain. Remember to protect your skin by placinga towel between your body and the ice or heat source. For the first few days, apply an ice pack for 15 to 20 minutes, several times a day. To make a coldpack, put ice cubes in a plastic bag that seals at the top. A wrapped frozen bag of vegetables can also work as a cold pack. After the first few days, try heat for 15 minutes at a time to ease pain. Always make sure the heating pad is wrapped. Never sleep on a heating pad. Gtor-alw-gxtyuxg medicine can help control pain and swelling. Try aspirin or a nonsteroidal anti-inflammatory drugs (NSAIDs) such as ibuprofen. Exercise Exercise can help your back heal. It also helps your back get stronger and more flexible, preventing any reinjury. Ask your healthcare provider about specific exercises for your back. Use good posture to avoid reinjury When moving, bend at the hips and knees. Don?t bend at the waist or twist around. When lifting, keep the object close to your body. Lift heavy items using your legs, not your back. Don?t try to lift more than you can handle. When sitting, keep your lower back supported. Use a rolled-up towel as needed. Make sure your work area or desk is at the correct height. Use a mirror to check your posture when you walk. Stand straight with shoulders back. Ask your healthcare providers for exercises that will improve your posture. When to seek medical care Seek medical care right away if: You can't stand or walk You have a temperature over 100.4 F ( 38.0 C), or as advised by your healthcare provider You have frequent, painful, or bloody urination You have severe abdominal pain You have a sharp, stabbing pain Your pain is constant You have pain, tingling, or numbness in your leg You have weakness in one or both legs or problems with bladder, bowel, or sexual function. These symptoms should be seen by a healthcare provider right away. This is because they can be caused by compression of the nerve bundle at the base of the spine. You feel pain in a new area of your back You notice that the pain isn?t decreasing after more than a week Your symptoms worsen or new symptoms develop Last Reviewed Date: 2024 00:00:00 [id number] [employer]. All rights reserved. This information is not intended as a substitute for professional medical care. Always follow your healthcare professional's instructions. [facility]05-05-2025 Miscellaneous Notes* Patient Education - Go Rice MD - 02/23/2025 6:05 AM EDT Images from the original note were not included. [id number] Self-Care for Low Back Pain Most people have low back pain now and then. In many cases, it isn?t serious, and self-care can help. Sometimes low back pain can be a sign of a bigger problem. Call your healthcare provider if your pain returns often or gets worse over time. There are plenty of ways to take care of your back. Get regular exercise, lose any excess weight, and practice good posture. Take a short rest Lying down during the day may be helpful for short periods of time if pain worsens with sitting or standing. It may help to have a pillow under the knees when lying on your back. But, keep in mind, long-term bed rest could be damaging. Reduce pain and swelling Cold reduces swelling. Both cold and heat can reduce pain. Remember to protect your skin by placinga towel between your body and the ice or heat source. For the first few days, apply an ice pack for 15 to 20 minutes, several times a day. To make a coldpack, put ice cubes in a plastic bag that seals at the top. A wrapped frozen bag of vegetables can also work as a cold pack. After the first few days, try heat for 15 minutes at a time to ease pain. Always make sure the heating pad is wrapped. Never sleep on a heating pad. Taim-six-wpfrckr medicine can help control pain and swelling. Try aspirin or a nonsteroidal anti-inflammatory drugs (NSAIDs) such as ibuprofen. Exercise Exercise can help your back heal. It also helps your back get stronger and more flexible, preventing any reinjury. Ask your healthcare provider about specific exercises for your back. Use good posture to avoid reinjury When moving, bend at the hips and knees. Don?t bend at the waist or twist around. When lifting, keep the object close to your body. Lift heavy items using your legs, not your back. Don?t try to lift more than you can handle. When sitting, keep your lower back supported. Use a rolled-up towel as needed. Make sure your work area or desk is at the correct height. Use a mirror to check your posture when you walk. Stand straight with shoulders back. Ask your healthcare providers for exercises that will improve your posture. When to seek medical care Seek medical care right away if: You can't stand or walk You have a temperature over 100.4 F ( 38.0 C), or as advised by your healthcare provider You have frequent, painful, or bloody urination You have severe abdominal pain You have a sharp, stabbing pain Your pain is constant You have pain, tingling, or numbness in your leg You have weakness in one or both legs or problems with bladder, bowel, or sexual function. These symptoms should be seen by a healthcare provider right away. This is because they can be caused by compression of the nerve bundle at the base of the spine. You feel pain in a new area of your back You notice that the pain isn?t decreasing after more than a week Your symptoms worsen or new symptoms develop Last Reviewed Date: 2024 00:00:00 [id number] [employer]. All rights reserved. This information is not intended as a substitute for professional medical care. Always follow your healthcare professional's instructions. [facility] Emergency department Note* Go Rice MD - 02/23/2025 4:48 AM EDT Images from the original note were not included. FINAL IMPRESSION(S) ICD-10-CM 1. Chest pain, unspecified type R07.9 2. Pain of right lower extremity M79.604 oxyCODONE-acetaminophen (PERCOCET) 5- 325 mg tablet 3. Acute right-sided low back pain with right-sided sciatica M54.41 oxyCODONE- acetaminophen (PERCOCET) 5-325 mg tablet DISPOSITION PLAN Discharge DISCHARGE MEDICATION(S) / CHANGES TO HOME MEDICATIONS Current Discharge Medication List START taking these medications Details oxyCODONE-acetaminophen (PERCOCET) 5-325 mg tablet Take 1 tablet by mouth every 6 hours as needed for Pain Qty: 12 tablet, Refills: 0 Associated Diagnoses: Pain of right lower extremity; Acute right-sided low back pain with right-sided sciatica CHIEF COMPLAINT Chief Complaint Patient presents with Chest Pain Leg Pain right TRIAGE NOTE: Pt ambulated into triage c/o chest pain and right leg pain. Pt states the chest pain is from gas. It started approx 1 hour ago. Pt states he twisted his leg when he turned to help someone. Pt states pain is the back of his knee which also started approx an hour ago. HPI / RELEVANT DOLORES Winston Mari is a 70 y.o. male in bed IR ED 10/22 who presents to the ED with multiple complaints. States he is having chest pain. States he is also having back pain. Has pain all the way down his right leg. States that he is also having pain behind his right knee. He states that he was taking the toys down off of the board at the local carnival. He states that he fell twice off of the ladder. Has not take anything for his symptoms. Symptoms started approximately 3 hours prior to arrival whenhe fell. PAST MEDICAL HISTORY / FAMILY HISTORY History reviewed. No pertinent past medical history. No family history on file. Above past medical conditions reviewed and verified by me. SOCIAL HISTORY Social History[1] Above social elements reviewed and verified by me. SURGICAL HISTORY History reviewed. No pertinent surgical history. CURRENT MEDICATIONS Outpatient Medications Marked as Taking for the 02/23/25 encounter (Hospital Encounter) Medication Sig Dispense Refill oxyCODONE-acetaminophen (PERCOCET) 5-325 mg tablet Take 1 tablet by mouth every 6 hours as needed for Pain 12 tablet 0 ALLERGIES Allergies Allergen Reactions Adhesive Ibuprofen Ultram [Tramadol] Vicodin [Hydrocodone-Acetaminophen] PERTINENT PHYSICAL EXAM VITAL SIGNS: ED Triage Vitals [02/23/25 0420] BP (!) 157/80 Temp 97.7 F (36.5 C) Pulse 60 Resp 16 SpO2 99 % Weight 159 lb (72.1 kg) Geno Coma Scale Score 15 BMI (Calculated) 22.2 Alert, resting, heart is regular rate and rhythm, lungs are clear, abdomen soft nontender, no chesttenderness or crepitus, diffuse tenderness with palpation to the bilateral lower lumbar musculature, no midline tenderness, distal pulses intact, diffuse tenderness with palpation to the right posterior thigh and leg, no gross bony deformity EKG Results for orders placed or performed during the hospital encounter of 02/23/25 EKG Standard 12 lead Result Value Ref Range Heart Rate 57 bpm RR INTERVAL 1,056 ms VT Interval 196 ms QRSD Interval 80 ms QT Interval 396 ms QTc Interval 385 ms QRS Provencal -20 deg T Wave Provencal 61 deg REPORT - NORMAL ECG - REPORT Sinus rhythm Interpreting Phys Confirmed by: Go Rice) 23-Feb-2025 04:31:11 RADIOLOGY I have personally visualized the images and my interpretation is no acute chest abnormality I reviewed the radiologist interpretation: Results for orders placed or performed during the hospital encounter of 02/23/25 [place] [id number] Narr[place] [id number] 02/23/2025 5:51 AM Reason for exam:leg pain amd swelling Reason for Exam: leg pain amd swelling. Duplex ultrasound examination of the deep venous system of the right lower extremity including evaluation of the common femoral vein, femoral vein, popliteal vein, posterior tibial veins, and peroneal veins. It demonstrated good compressibility and augmentation without reflux throughout. No luminal thrombus was demonstrated. Impression 1. NO EVIDENCE OF DEEP VENOUS THROMBOSIS IN THE RIGHT LOWER EXTREMITY. 2. NO REFLUX WAS DEMONSTRATED. Workstation ID:[id number] Electronically Signed by: Jun Bro M.D., 02/23/2025 5:59 AM XR-CHEST PORTABLE STAT Narrative XR-CHEST PORTABLE STAT [id number] 02/23/2025 5:04 AM History: chest pain History: Chest Pain; Leg Pain. Number of Series/Images: 1. Comparison: None Findings: Single mobile view of the chest demonstrates normal cardiomediastinal silhouette with midline trachea and clear lung barry bilaterally. Lungs appear somewhat hyperinflated. Impression PULMONARY HYPERINFLATION WITH NO ACUTE PROCESS SEEN. Workstation ID:[id number] Electronically Signed by: Jun Bro M.D., 02/23/2025 5:05 AM LAB RESULTS CBC W/DIFF - Abnormal; Notable for the following components: Result Value Ref Range Status RBC 4.01 (*) 4.30 - 5.86 M/uL Final HGB 12.4 (*) 13.1 - 17.6 g/dL Final HCT 36.2 (*) 39.0 - 51.5 % Final Neutrophils Absolute 7.4 (*) 2.0 - 7.3 K/uL Final All other components within normal limits HS TROPONIN I - Normal Narrative: The Access high sensitivity troponin assay is not intended to be used in isolation; results should be interpreted in conjunction with other diagnostic tests and clinical information. BASIC METABOLIC PANEL Narrative: KDIGO 2012 GFR Categories Stage Description eGFR (mL/min/1.73m2) G1 Normal or high >=90 G2 Mildly decreased 60-89 G3a Mildly to moderately decreased 45-59 G3b Moderately to severely decreased 30-44 G4 Severely decreased 15-29 G5 Kidney Failure <15 MEDICAL DECISION MAKING ? Differential Diagnosis / Diagnostic Considerations: Chest wall pain, knee sprain, DVT, electrolyte abnormality, acute coronary syndrome ED COURSE Repeat Vitals: BP: 152/87 (02/23 515) Temp: 97.7 F (36.5 C) (02/230) Pulse: 60 (02/23 515) Resp: 14 (02/23 515) SpO2: 99 % (02/23 515) FiO2 (%): -- O2 Flow Rate (L/min): -- Cardiac (WDL): Within Defined Limits (02/23 527) Cardiac Rhythm: -- Medications fentaNYL citrate (PF) (SUBLIMAZE) injectable syringe 50 mcg (50 mcg IV Push Not Given 02/23/25507) ondansetron (ZOFRAN) injection 4 mg (4 mg IV Push Given 02/23/25502) oxyCODONE-acetaminophen (PERCOCET) 5-325 mg per tablet 1 tablet (1 tablet Oral Given 02/23/25523) Al-Mg hydroxide-simethicone (MAALOX) 200-200-20 mg/5 mL 30 mL, lidocaine (XYLOCAINE) 2 % 15 mL (45 mLs Oral Given 02/23/25523) Patient to the emergency department with complaint of leg pain, chest pain and back pain after he had fallen a few times off of a ladder earlier today. EKG is nondiagnostic. Chest x-ray is clear. DVTscreen is negative. Laboratory workup is negative. This includes a troponin. The patient will be treated symptomatically. Is to follow-up with primary care physician. Electronically signed by: Go Rice MD, 02/23/2025 [1] Social History Socioeconomic History Marital status: Tobacco Use Smoking status: Former Types: Cigarettes Passive exposure: Past Smokeless tobacco: Never Substance and Sexual Activity Alcohol use: Not Currently Drug use: Never Sexual activity: Not Currently Social Drivers of Health Financial Resource Strain: Low Risk (02/12/2023) Received from [facility] Overall Financial Resource Strain (CARDIA) Difficulty of Paying Living Expenses: Not hard at all Food Insecurity: No Food Insecurity (02/12/2023) Received from [facility] Hunger Vital Sign Worried About Running Out of Food in the Last Year: Never true Ran Out of Food in the Last Year: Never true Transportation Needs: No Transportation Needs (02/12/2023) Received from [facility] PRAPARE - Transportation Lack of Transportation (Medical): No Lack of Transportation (Non-Medical): No Housing Stability: Low Risk (02/12/2023) Received from [facility] Housing Stability Vital Sign Unable to Pay for Housing in the Last Year: No Number of Places Lived in the Last Year: 1 Unstable Housing in the Last Year: No Go Rice MD 02/23/25 0607 [facility]05-05-2025 Emergency department Note* ISRAEL Espinoza - 02/23/2025 4:25 AM EDT Pt states they are in 10/10 pain. Leela RN notified [facility]05-05[facility] Emergency department Triage note* Sandy Sifuentes RN - 02/23/2025 4:06 AM EDT Pt ambulated into triage c/o chest pain and right leg pain. Pt states the chest pain is from gas. It started approx 1 hour ago. Pt states he twisted his leg when he turned to help someone. Pt states pain is the back of his knee which also started approx an hour ago. T [facility]03-22-2025 Note. MICRO - Microbiology PROCEDURE: Urine Culture [O1 *1] SOURCE: Urine, Clean Catch BODY SITE: COLLECTED DATE/TIME: 01/08/2025 14:41 EDT RECEIVED DATE/TIME: 01/08/2025 19:41 EDT START DATE/TIME: 01/08/2025 19:41 EDT FREE TEXT SOURCE: FINAL REPORTS Final Report [] Verified Date/Time/Personnel: 01/10/2025 07:46 EDT No growth at 48 hours. PRELIMINARY REPORTS Preliminary Report [] Verified Date/Time/Personnel: 01/09/2025 08:51 EDT No growth to date Preliminary Report [] Verified Date/Time/Personnel: 01/08/2025 20:59 EDT Specimen received in lab. Order Comments O1: Urine Culture run culture Performing Locations *1: This test was performed at: [facility], [address] [place] [address], [id number] , [facility]03-15-2025 Discharge summary [facility] Medical Records Department [address] [place] [address] Emergency Department Summary 01/03/25 MR#: [id number] Acct: [id number] Name: WINSTON MARI Rep #:[id number] : 1955 69 From: Irene PRINCE PCP: Dr. Eugenio Mayen DO Status:REG ER Location: ED HPI History of Present Illness Chief Complaint: Flank Pain Narrative Narrative: 69-year-old male presents with right flank pain that started 4 days ago after waking up. He had a small amount of dysuria. No fever, chills, vomiting, or hematuria. He was seen here 2 days after onset on 01/01 and had a negative CT scan of the abdomen/pelvis and was diagnosed with a muscle strain and has been taking Tylenol and the prescribed diazepam. It helps but he still has sharp right flank pain that worsens with urination. States he has not been drinking fluids as much because he does not want to urinate. He has no hematuria or penile discharge. No fever chills or vomiting. [facility] Medical History Left rotator cuff tear Anemia GERD (gastroesophageal reflux disease) Left shoulder pain Hemorrhoid Epilepsy Sciatica High cholesterol Home Medications ?Medication ?Instructions ?Recorded ?Last Taken ?Type gabapentin 300 mg capsule 300 mg PO 4X/DAY 04/02/22 Un known History hydrocortisone acetate 25 mg 25 mg VT QHS #12 ea 04/27 Unknown Rx rectal suppository (Anusol-HC) atorvastatin 40 mg tablet (Lipitor) 40 mg PO QHS 01/13 Unknown History polyethylene glycol 3350 17 17 g PO DAILY #119 grams 0 05/31/23 Unknown Rx gram/dose oral powder (ClearLax) cyclobenzaprine 5 mg tablet 5 mg PO TID PRN muscle spa sm 4 11/05/24 Unknown Rx days #12 tabs clopidogrel 75 mg tablet 75 mg PO QDAY 11/13/24 Unkno wn History duloxetine 30 mg capsule,delayed See Rx Instructions P O QDAY 11/13/24 Unknown History release ferrous sulfate 325 mg (65 mg 325 mg PO QDAY 11/13/24 Unknown History iron) tablet pantoprazole 40 mg tablet,delayed 40 mg PO QDAY Unknown History release ondansetron 4 mg disintegrating 4 mg PO Q8H PRN PRN Na usea #10 tabs 11/25/24 Unknown Rx tablet oxycodone-acetaminophen 5 mg-325 1 tab PO Q8H PRN pain 3 days #10 11/25/24 Unknown Rx mg tablet (Percocet) tabs diazepam 5 mg tablet 5 mg PO Q8 PRN Muscle Spasm #10 01/01/25 Unknown Rx tabs Allergy/AdvReac Type Severity Reaction Status Date / Time adhesive tape (tape) AdvReac Rash Verified 01/03/25 16:39 hydrocodone (From [place]) AdvReac Upset Verified 01/03/25 16:39 Stomach ibuprofen AdvReac Upset Verified 01/03/25 16:39 Stomach ketorolac (From Toradol) AdvReac Rash Verified 01/03/25 16:39 meloxicam (From Mobic) AdvReac Muscle Verified 01/03/25 16:39 weakness naproxen AdvReac Rash Verified 01/03/25 16:39 tramadol AdvReac Upset Verified 01/03/25 16:39 Stomach Family History Other Cancer Diabetes Heart disease Surgical History Leg fracture, left S/P clamping of cerebral aneurysm Social History household members: significant other Smoking Status: Former smoker alcohol intake: former substance use type: does not use ROS ROS ED ROS Narrative Constitutional: Negative for fever, chills, malaise. GI: Negative for abdominal pain, nausea, vomiting, diarrhea,. : Negative for dysuria, hematuria or frequency. EXAM Physical Exam Narrative Exam Narrative: CONST: Patient sitting in no acute distress. EYES: Normal inspection. NECK: Normal inspection. RESP: No respiratory distress, CTAB. CVS: Regular rate and rhythm, no murmur, no gallop. ABD: Soft and nontender, no guarding or rebound, nondistended. Back: Normal inspection, no midline tenderness or step-offs. Reproducible tenderness over right thoracic and lumbar musculature. SKIN: Color normal, no rash, warm, dry, intact. No zoster. EXTREMITIES: Normal appearance, no pedal edema. NEURO: Alert and answering questions appropriately. PSYCH: Normal affect. Const Vital Signs: 01/03/25 16:39 Temperature 97 F L Temperature Source Temporal Pulse Rate 68 Respiratory Rate 15 Blood Pressure 146/82 H Blood Pressure Mean 103 Pulse Ox 100 Oxygen Delivery Method Room Air Physical Exam Const Vital Signs: 01/03/25 16:39 Temperature 97 F L Temperature Source Temporal Pulse Rate 68 Respiratory Rate 15 Blood Pressure 146/82 H Blood Pressure Mean 103 Pulse Ox 100 Oxygen Delivery Method Room Air MDM MDM MDM Narrative Medical decision making narrative: 69-year-old male has a right flank pain for about 4 days. Feels it is worse with urination. He was seen. 2 days ago and had extensive workup including labs, UA, CT which were all negative. He was treated as musculoskeletal pain with Valium and Tylenol. He presents with the same symptoms. Appears well and nontoxic. Vital signs stable. He has a benign cardiopulmonary exam. Abdomen soft, nontender. He has reproducible right thoracic and lumbar pain. No midline pain. I told him that we would start with checking a urinalysis. I would not jump to getting a repeat CT scan due to risk of radiation and the factthat it was negative just 2 days ago. Urinalysis has negative nitrates, no red or white leslie ls, 2+ bacteria. He is not having dysuria, only right flank pain when he urinates. However with it being very reproducible to palpation with movement I do still think this is musculoskeletal. I do not initially ordered anything for pain because he is allergic to NSAIDs and had already taken Tylenoland Valium so I told him I would like to wait for the UA results. The attendingwas delayed from speaking with him due to more critical patient and patient eloped from the department. I have personally performed a face to face assessment of the patient and have reviewed the JOSE D Note. I performed a substantive portion of the visit including all aspects of the following. My clark findings include: History is [ 69-year-old male flank pain.] Seen the other day had a large workup including CT and UA which were negative. On JOSE D's exam appeared to be musculoskeletal pain. Exam is [I was going to evaluate the patient. I was delayed due to a much more critical patient with a significant injury that we had to send to a trauma center. As I was going to the patient's room to evaluate him he left without being discharged. Nurses tried to talk him into remaining psych evaluating any left.] Medical Decision Making [ ] Other additions or changes: [None] Lab Data Labs: Laboratory Results - last 24 hr 01/03/25 17:30 Urine Color Yellow Urine Clarity Clear Urine pH 7.0 Ur Specific [place] 1.010 Urine Protein Negative Urine Glucose (UA) Normal Urine Ketones Negative Urine Occult Blood 25 H Urine Nitrite Negative Urine Bilirubin Negative Urine Urobilinogen 1 H Ur Leukocyte Esterase Negative Urine RBC 0-5 SEEN Urine WBC 0 SEEN Ur Squamous Epith Cells 0-5 SEEN Ur Transition Epith Cell 0-5 SEEN Urine Bacteria 2+ Urine Mucus 1+ MDM MDM Narrative Medical decision making narrative: I have personally performed a face to face assessment of the patient and have reviewed the JOSE D Note. I performed a substantive portion of the visit including all aspects of the following. My clark findings include: History is [ 69-year-old male flank pain.] Seen the other day had a large workup including CT and UA which were negative. On JOSE D's exam appeared to be musculoskeletal pain. Exam is [I was going to evaluate the patient. I was delayed due to a much more critical patient with a significant injury that we had to send to a trauma center. As I was going to the patient's room to evaluate him he left without being discharged. Nurses tried to talk him into remaining psych evaluating any left.] Medical Decision Making [ ] Other additions or changes: [None] Lab Data Attestation: I reviewed the patient's lab results. Lab results narrative: UA negative. Labs: Laboratory Results - last 24 hr 01/03/25 17:30 Urine Color Yellow Urine Clarity Clear Urine pH 7.0 Ur Specific [place] 1.010 Urine Protein Negative Urine Glucose (UA) Normal Urine Ketones Negative Urine Occult Blood 25 H Urine Nitrite Negative Urine Bilirubin Negative Urine Urobilinogen 1 H Ur Leukocyte Esterase Negative Urine RBC 0-5 SEEN Urine WBC 0 SEEN Ur Squamous Epith Cells 0-5 SEEN Ur Transition Epith Cell 0-5 SEEN Urine Bacteria 2+ Urine Mucus 1+ Discharge Plan Triage Chief Complaint: Flank Pain ED Midlevel Provider: Irene Franks ED Provider: Ken Mari Dx/Rx/DC Orders Prescriptions: No Action ferrous sulfate 325 mg (65 mg iron) tablet 325 mg PO QDAY pantoprazole 40 mg tablet,delayed release (DR/EC) 40 mg PO QDAY gabapentin 300 mg capsule 300 mg PO 4X/DAY hydrocortisone acetate [Anusol-HC] 25 mg suppository 25 mg VT QHS Qty: 12 0RF atorvastatin [Lipitor] 40 mg Tablet 40 mg PO QHS polyethylene glycol 3350 [ClearLax] 17 gram/dose powder 17 g PO DAILY Qty: 119 0RF clopidogrel 75 mg tablet 75 mg PO QDAY Patient Comments: TAKE 1 TABLET BY MOUTH EVERY DAY duloxetine 30 mg capsule,delayed release(DR/EC) See Rx Instructions PO QDAY Patient Comments: TAKE 2 CAPSULE BY MOUTH in AM and 1 cap at night Rx Instructions: orally daily; oxycodone-acetaminophen [Percocet] 5-325 mg tablet 1 tab PO Q8H PRN (Reason: pain) 3 Days Qty: 10 0RF ondansetron 4 mg tablet,disintegrating 4 mg PO Q8H PRN PRN (Reason: Nausea) Qty: 10 0RF cyclobenzaprine 5 mg tablet 5 mg PO TID PRN (Reason: muscle spasm) 4 Days Qty: 12 0RF diazepam [diazepam] 5 mg tablet 5 mg PO Q8 PRN (Reason: Muscle Spasm) Qty: 10 0RF Primary Care Provider: Eugenio Mayen Referrals: Eugenio Mayen DO [Primary Care Provider] - Print Language: Thai What to do if you have Problems For any increased pain, shortness of breath, bleeding, nausea or vomiting, chestpain, or any unexpected problems, contact your Primary Care Provider. Call [facility] ([phone]) or report tothe closest Emergency Room. Call 911 if necessary. 01/03/25 184 Cosigner Signature (if applicable): 01/03/25 1836 CC: Dr. Eugenio Mayen DO ~ Signed [facility]03-15-2025 Discharge summary Author Irene Franks [facility] Note Date/Time January 03, 2025 6:4 2pm [facility] Medical Records Department [address] [place] [address] Emergency Department Summary 01/03/25 MR#: [id number] Acct: [id number] Name: WINSTON MARI Rep #:[id number] : 1955 69 From: Irene PRINCE PCP: Dr. Eugenio Mayen, DO Status:REG ER Location: ED HPI <NIKI Bird - Last Filed: 01/03/25 18:42> History of Present Illness Chief Complaint: Flank Pain Narrative Narrative: 69-year-old male presents with right flank pain that started 4 days ago after waking up. He had a small amount of dysuria. No fever, chills, vomiting, or hematuria. He was seen here 2 days after onset on 01/01 and had a negative CT scan of the abdomen/pelvis and was diagnosed with a muscle strain and has been taking Tylenol and the prescribed diazepam. It helps but he still has sharp right flank pain that worsens with urination. States he has not been drinking fluids as much because he does not want to urinate. He has no hematuria or penile discharge. No fever chills or vomiting. PFSH <NIKI Bird - Last Filed: 01/03/25 18:42> [facility] Medical History Left rotator cuff tear Anemia GERD (gastroesophageal reflux disease) Left shoulder pain Hemorrhoid Epilepsy Sciatica High cholesterol Home Medications ?Medication ?Instructions ?Recorded ?Last Taken ?Type gabapentin 300 mg capsule 300 mg PO 4X/DAY 04/02/22 Un known History hydrocortisone acetate 25 mg 25 mg VT QHS #12 ea 04/27 Unknown Rx rectal suppository (Anusol-HC) atorvastatin 40 mg tablet (Lipitor) 40 mg PO QHS 01/13 Unknown History polyethylene glycol 3350 17 17 g PO DAILY #119 grams 0 05/31/23 Unknown Rx gram/dose oral powder (ClearLax) cyclobenzaprine 5 mg tablet 5 mg PO TID PRN muscle spa sm 4 11/05/24 Unknown Rx days #12 tabs clopidogrel 75 mg tablet 75 mg PO QDAY 11/13/24 Unkno wn History duloxetine 30 mg capsule,delayed See Rx Instructions P O QDAY 11/13/24 Unknown History release ferrous sulfate 325 mg (65 mg 325 mg PO QDAY 11/13/24 Unknown History iron) tablet pantoprazole 40 mg tablet,delayed 40 mg PO QDAY Unknown History release ondansetron 4 mg disintegrating 4 mg PO Q8H PRN PRN Na usea #10 tabs 11/25/24 Unknown Rx tablet oxycodone-acetaminophen 5 mg-325 1 tab PO Q8H PRN pain 3 days #10 11/25/24 Unknown Rx mg tablet (Percocet) tabs diazepam 5 mg tablet 5 mg PO Q8 PRN Muscle Spasm #10 01/01/25 Unknown Rx tabs Allergy/AdvReac Type Severity Reaction Status Date / Time adhesive tape (tape) AdvReac Rash Verified 01/03/25 16:39 hydrocodone (From [place]) AdvReac Upset Verified 01/03/25 16:39 Stomach ibuprofen AdvReac Upset Verified 01/03/25 16:39 Stomach ketorolac (From Toradol) AdvReac Rash Verified 01/03/25 16:39 meloxicam (From Mobic) AdvReac Muscle Verified 01/03/25 16:39 weakness naproxen AdvReac Rash Verified 01/03/25 16:39 tramadol AdvReac Upset Verified 01/03/25 16:39 Stomach Family History Other Cancer Diabetes Heart disease Surgical History Leg fracture, left S/P clamping of cerebral aneurysm Social History household members: significant other Smoking Status: Former smoker alcohol intake: former substance use type: does not use ROS <NIKI Bird - Last Filed: 01/03/25 18:42> ROS ED ROS Narrative Constitutional: Negative for fever, chills, malaise. GI: Negative for abdominal pain, nausea, vomiting, diarrhea,. : Negative for dysuria, hematuria or frequency. EXAM <NIKI Bird - Last Filed: 01/03/25 18:42> Physical Exam Narrative Exam Narrative: CONST: Patient sitting in no acute distress. EYES: Normal inspection. NECK: Normal inspection. RESP: No respiratory distress, CTAB. CVS: Regular rate and rhythm, no murmur, no gallop. ABD: Soft and nontender, no guarding or rebound, nondistended. Back: Normal inspection, no midline tenderness or step-offs. Reproducible tenderness over right thoracic and lumbar musculature. SKIN: Color normal, no rash, warm, dry, intact. No zoster. EXTREMITIES: Normal appearance, no pedal edema. NEURO: Alert and answering questions appropriately. PSYCH: Normal affect. Const Vital Signs: 01/03/25 16:39 Temperature 97 F L Temperature Source Temporal Pulse Rate 68 Respiratory Rate 15 Blood Pressure 146/82 H Blood Pressure Mean 103 Pulse Ox 100 Oxygen Delivery Method Room Air <Dr. Ken Mari MD - Last Filed: 01/03/25 18:36> Physical Exam Const Vital Signs: 01/03/25 16:39 Temperature 97 F L Temperature Source Temporal Pulse Rate 68 Respiratory Rate 15 Blood Pressure 146/82 H Blood Pressure Mean 103 Pulse Ox 100 Oxygen Delivery Method Room Air MDM <NIKI Bird - Last Filed: 01/03/25 18:42> [facility] Narrative Medical decision making narrative: 69-year-old male has a right flank pain for about 4 days. Feels it is worse with urination. He was seen. 2 days ago and had extensive workup including labs, UA, CT which were all negative. He was treated as musculoskeletal pain with Valium and Tylenol. He presents with the same symptoms. Appears well and nontoxic. Vital signs stable. He has a benign cardiopulmonary exam. Abdomen soft, nontender. He has reproducible right thoracic and lumbar pain. No midline pain. I told him that we would start with checking a urinalysis. I would not jump to getting a repeat CT scan due to risk of radiation and the factthat it was negative just 2 days ago. Urinalysis has negative nitrates, no red or white cells, 2+ bacteria. He is not having dysuria, only right flank pain when he urinates. However with it being very reproducible to palpation with movement I do still think this is musculoskeletal. I do not initially ordered anything for pain because he is allergic to NSAIDs and had already taken Tylenoland Valium so I told him I would like to wait for the UA results. The attendingwas delayed from speaking with him due to more critical patient and patient eloped from the department. I have personally performed a face to face assessment of the patient and have reviewed the JOSE D Note. I performed a substantive portion of the visit including all aspects of the following. My clark findings include: History is [ 69-year-old male flank pain.] Seen the other day had a large workup including CT and UA which were negative. On JOSE D's exam appeared to be musculoskeletal pain. Exam is [I was going to evaluate the patient. I was delayed due to a much more critical patient with a significant injury that we had to send to a trauma center. As I was going to the patient's room to evaluate him he left without being discharged. Nurses tried to talk him into remaining psych evaluating any left.] Medical Decision Making [ ] Other additions or changes: [None] Lab Data Labs: Laboratory Results - last 24 hr 01/03/25 17:30 Urine Color Yellow Urine Clarity Clear Urine pH 7.0 Ur Specific [place] 1.010 Urine Protein Negative Urine Glucose (UA) Normal Urine Ketones Negative Urine Occult Blood 25 H Urine Nitrite Negative Urine Bilirubin Negative Urine Urobilinogen 1 H Ur Leukocyte Esterase Negative Urine RBC 0-5 SEEN Urine WBC 0 SEEN Ur Squamous Epith Cells 0-5 SEEN Ur Transition Epith Cell 0-5 SEEN Urine Bacteria 2+ Urine Mucus 1+ <Dr. Ken Mari MD - Last Filed: 01/03/25 18:36> [facility] MDM Narrative Medical decision making narrative: I have personally performed a face to face assessment of the patient and have reviewed the JOSE D Note. I performed a substantive portion of the visit including all aspects of the following. My clark findings include: History is [ 69-year-old male flank pain.] Seen the other day had a large workup including CT and UA which were negative. On JOSE D's exam appeared to be musculoskeletal pain. Exam is [I was going to evaluate the patient. I was delayed due to a much more critical patient with a significant injury that we had to send to a trauma center. As I was going to the patient's room to evaluate him he left without being discharged. Nurses tried to talk him into remaining psych evaluating any left.] Medical Decision Making [ ] Other additions or changes: [None] Lab Data Attestation: I reviewed the patient's lab results. Lab results narrative: UA negative. Labs: Laboratory Results - last 24 hr 01/03/25 17:30 Urine Color Yellow Urine Clarity Clear Urine pH 7.0 Ur Specific [place] 1.010 Urine Protein Negative Urine Glucose (UA) Normal Urine Ketones Negative Urine Occult Blood 25 H Urine Nitrite Negative Urine Bilirubin Negative Urine Urobilinogen 1 H Ur Leukocyte Esterase Negative Urine RBC 0-5 SEEN Urine WBC 0 SEEN Ur Squamous Epith Cells 0-5 SEEN Ur Transition Epith Cell 0-5 SEEN Urine Bacteria 2+ Urine Mucus 1+ Discharge Plan Triage Chief Complaint: Flank Pain ED Midlevel Provider: Irene Franks ED Provider: Ken Mari Dx/Rx/DC Orders Prescriptions: No Action ferrous sulfate 325 mg (65 mg iron) tablet 325 mg PO QDAY pantoprazole 40 mg tablet,delayed release (DR/EC) 40 mg PO QDAY gabapentin 300 mg capsule 300 mg PO 4X/DAY hydrocortisone acetate [Anusol-HC] 25 mg suppository 25 mg VT QHS Qty: 12 0RF atorvastatin [Lipitor] 40 mg Tablet 40 mg PO QHS polyethylene glycol 3350 [ClearLax] 17 gram/dose powder 17 g PO DAILY Qty: 119 0RF clopidogrel 75 mg tablet 75 mg PO QDAY Patient Comments: TAKE 1 TABLET BY MOUTH EVERY DAY duloxetine 30 mg capsule,delayed release(DR/EC) See Rx Instructions PO QDAY Patient Comments: TAKE 2 CAPSULE BY MOUTH in AM and 1 cap at night Rx Instructions: orally daily; oxycodone-acetaminophen [Percocet] 5-325 mg tablet 1 tab PO Q8H PRN (Reason: pain) 3 Days Qty: 10 0RF ondansetron 4 mg tablet,disintegrating 4 mg PO Q8H PRN PRN (Reason: Nausea) Qty: 10 0RF cyclobenzaprine 5 mg tablet 5 mg PO TID PRN (Reason: muscle spasm) 4 Days Qty: 12 0RF diazepam [diazepam] 5 mg tablet 5 mg PO Q8 PRN (Reason: Muscle Spasm) Qty: 10 0RF Primary Care Provider: Eugenio Mayen Referrals: Eugenio Mayen DO [Primary Care Provider] - Print Language: Thai What to do if you have Problems For any increased pain, shortness of breath, bleeding, nausea or vomiting, chestpain, or any unexpected problems, contact your Primary Care Provider. Call [facility] ([phone]) or report to the closest Emergency Room. Call 911 if necessary. 01/03/251841 <Electronically signed by Irene PRINCE> Cosigner Signature (if applicable): 01/03/251835 <Electronically signed by Ken Mari MD> CC: Dr. Eugenio Mayen DO ~ Signed [facility] Work Phone: 1(986) 372-727103-13-2025 Radiology Diagnostic study note [facility] Imaging Services [address] [place] [address] Abdomen/Pelvis without Cont MR#: [id number] Acct: [id number] Name: WINSTON MARI Rep #: [id number] : 1955 M 69 From: Saranya Del Cid MD PCP: Dr. Eugenio Mayen DO Status: REG ER Study:Abdomen/Pelvis without Cont Date of Exa m: 01/01/25 Exam# [id number] Ordering Dr: Dean Del Cid DO EXAM: CT Abdomen and Pelvis Without Intravenous Contrast CLINICAL INDICATION: KIDNEY STONE TECHNIQUE: Axial computed tomography images of the abdomen and pelvis without intravenous contrast.This CT exam was performed using one or more of the following dose reduction techniques: automated exposure control, adjustment of the mA and/or kV according to patient size, and/or use of iterative reconstruction technique. COMPARISON: CT Abdomen Pelvis dated 11/05/2024 FINDINGS: LUNG BASES: Unremarkable. No mass. No consolidation. ABDOMEN: LIVER: Hepatomegaly with fatty infiltration. GALLBLADDER AND BILE DUCTS: Unremarkable. No calcified stones. No ductal dilation. PANCREAS: Unremarkable. No ductal dilation. SPLEEN: Pelvic calculi in the spleen. ADRENALS: Unremarkable. No mass. KIDNEYS AND URETERS: 1.3 cm hyperdense lesion of the right kidney, likely cyst. No stones within either kidney. No hydronephrosis. STOMACH AND BOWEL: Fecal retention in the colon consistent with constipation. Colonic diverticulosis without acute diverticulitis. No obstruction. PELVIS: APPENDIX: No findings to suggest acute appendicitis. BLADDER: Unremarkable. No stones. REPRODUCTIVE: Bilateral hydroceles, larger on the left. ABDOMEN and PELVIS: INTRAPERITONEAL SPACE: Unremarkable. No free air. No significant fluid collection. BONES/JOINTS: No acute fracture. No dislocation. SOFT TISSUES: Umbilical hernia containing fat. VASCULATURE: Scattered calcified atherosclerotic disease of aorta. No abdominal aortic aneurysm. LYMPH NODES: Unremarkable. No enlarged lymph nodes. CT/Abdomen/Pelvis without Cont IMPRESSION: 1. Bilateral hydroceles, larger on the left. 2. Hepatomegaly with fatty infiltration. 3. Fecal retention in the colon consistent with constipation. 4. Umbilical hernia containing fat. 5. No obstructive uropathy. 6. Colonic diverticulosis without acute diverticulitis. Reading Location: [facility] CC: Dr. Eugenio Mayen DO; Dr. 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: Signed [facility]02-24-2025 Evaluation note* Diagnosis Onset Date Resolution Status Admit Date Left rotator cuff tear acute Fe bruary 2024 10:45am Left shoulder pain acute Februa ry 2024 10:45am [facility] Work Phone: 1(508) 183-492901-23-2025 Evaluation note* Diagnosis Onset Date Resolution Status Admit Date Left shoulder pain acute Januar y 2024 1:55pm Degenerative disc disease, lumbar acute November 18 1:21pm Compression fx, lumbar spine inactiv e November 18, 2024 1:21pm Foot drop, left noneactive October 232024 1:21pm Left rotator cuff tear acute Fe bruary 2024 10:45am Left shoulder pain acute Februa ry 2024 10:45am [facility] Work Phone: 1([phone]) 401-325711-01-2023 NoteHNO ID: [id number] Author: Hamilton Agarwal MD Service: ? Author Type: Anesthesiologist Type: Progress Notes Filed: 08/22/2023 8:50 AM Note Text: Dragon was used to dictate this note and therefore there may be some typographical errors. I attest to the fact that I spent a total of 24 min with the patient to include: Face to face time and non face to face time such as: Reviewing test's, reviewing medical records, reviewing imaging studies, ordering tests, etc. The patient is being referred to us by Dr. Almonte for ongoing pain issues. Patient has a history of falling off a roof January 2023 and sustaining L2 and L4 fractures. Notes from the neurosurgeon indicates patient failed conservative management and I recommended a kyphoplasty at L2 and L4 this is per his note of 05/10/2023. Patient comes accompanied with lumbar MRI dated 04/30/2023. This indicates persistent edema at L2 and L4 associated mild compression fractures at the levels. There is a phone note dated 05/23/2023 that indicates patient wanted to think about kyphoplasty and did not necessarily want this done. PE: Alert and oriented no acute distress. Mood and affect within normal limits. Vital signs indicated. Gait is slow deliberate antalgic gait favoring his left leg pain more than the right. Some pain with lumbar extension and flexion. Tenderness palpation overlying the lumbar paraspinous muscles. Dx: Status post fall, L2 and L4 vertebral compression fractures, persistent edema associated with mild compression fractures at L2 and L4, low back pain, neuropathic pain. Plan: OARRS checked. This indicates patient is on gabapentin 300 mg 4 times a day and oxycodone 10 mg 4 times a day [address] Dr. Mayen in [place]. As above, note from Dr. Almonte indicates that he was planning on performing kyphoplasty at L2 and L4 per his note of 05/10/2023. This due to the fact the patient had persistent edema at these levels status post fall off of a roof. There is a phone note dated 05/23/2023 and indicated the patient want to think about kyphoplasty and did not necessarily want this done. Had injections in the remote past in at a pain center in [place]. Patient indicates he decided against kyphoplasty. He is not following up with neurosurgery. Patient absolutely does not want any spinal injections again. He has agreed to try a TENS unit. There is a new TENS unit technology from a company called [employer]. This was prescribed for him. Gave him the phone number that way if he is not contacted within the next week, he has a phone number to call. He will follow-up with us on a as needed basis. We could consider IV lidocaine infusions in the future. Patient agrees to the above.[facility]11[facility]01[facility] History of Present illness Narrative* Hamilton Agarwal MD - 08/22/2023 8:45 AM EDT Dragon was used to dictate this note and therefore there may be some typographical errors. I attest to the fact that I spent a total of 24 min with the patient to include: Face to face time and non face to face time such as: Reviewing test's, reviewing medical records, reviewing imaging studies, ordering tests, etc. The patient is being referred to us by Dr. Almonte for ongoing pain issues. Patient has a history of falling off a roof January 2023 and sustaining L2 and L4 fractures. Notes from the neurosurgeon indicates patient failed conservative management and I recommended a kyphoplasty at L2 and L4 this is per his note of 05/10/2023. Patient comes accompanied with lumbar MRI dated 04/30/2023. This indicates persistent edema at L2 and L4 associated mild compression fractures at the levels. There is a phone note dated 05/23/2023 that indicates patient wanted to think about kyphoplasty and did not necessarily want this done. PE: Alert and oriented no acute distress. Mood and affect within normal limits. Vital signs indicated. Gait is slow deliberate antalgic gait favoring his left leg pain more than the right. Some pain withlumbar extension and flexion. Tenderness palpation overlying the lumbar paraspinous muscles. Dx: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 03/29/2023 0948 Pain Level: 8 Pain Location: Back-Lower Description: Aching Duration Units: Months PAST MEDICAL HISTORY Diagnosis Date Arthritis Epilepsy (HCC) High cholesterol Sciatica PAST SURGICAL HISTORY Procedure Laterality Date ARTHROSCOPY, HIP: W/LABRAL REPAIR Left 1973 BRAIN SURGERY HX OTHER ANEURYSM REPAIR 1983 [facility]- Dr. Simpson- Brain Aneurysm FAMILY HISTORY Problem Relation Age of Onset Cancer Mother Cancer Father Ischemic Heart Disease Brother ALLERGIES Allergen Reactions Adhesive Tape-Silic* Itching Hydrocodone-Acetami* Rash Naproxen Rash Ultram [Tramadol Hc* GI Upset Current Outpatient Medications Medication Sig Dispense Refill cholecalciferol (VITAMIN D3) 1,000 unit tab tablet Take 1 tablet by mouth once daily. Walker misc 1 Units once daily. Wheeled walker 1 Each 0 docusate sodium (COLACE) 100 mg capsule TAKE 1 CAPSULE BY MOUTH TWICE A DAY FOR 30 DAYS NEEDED FOR CONSTIPATION hydrocortisone (HEMORRHOIDAL HC) 25 mg suppository Hydrocortisone Acetate (Anusol-Hc) 25 mg suppository Active 25 MG RC AT BEDTIME April 26, 2022 11:00pm omeprazole (PRILOSEC) 40 mg capsule Take 40 mg by mouth once daily. DULoxetine (CYMBALTA) 30 mg capsule TAKE 1 CAPSULE BY MOUTH TWICE A DAY FOR 90 DAYS - DOSE INCREASE- DO NOT CRUSH OR CHEW polyethylene glycol 3350 (MIRALAX, GLYCOLAX) 17 gram/dose powder 17 GRAMS BY MOUTH TWICE DAILY FOR 90 DAYS tamsulosin (FLOMAX) 0.4 mg Take 0.4 mg by mouth once daily. gabapentin (NEURONTIN) 300 mg capsule Take 1 capsule by mouth four times daily for 30 days. 120 capsule 11 cyclobenzaprine (FLEXERIL) 10 mg tablet Take 1 tablet by mouth every 8 hours as needed for Muscle Spasm (or pain). 14 tablet 0 atorvastatin (LIPITOR) 10 mg tablet Take 1 tablet by mouth once daily. BEFORE BEDTIME 30 tablet 5 No current facility-administered medications for this visit. REVIEW OF SYSTEMS Review of Systems Constitutional: Negative for chills, diaphoresis and fever. HENT: Negative for sinus pressure, sinus pain and trouble swallowing. Eyes: Negative for pain, redness and visual disturbance. Respiratory: Negative for cough, shortness of breath and wheezing. Cardiovascular: Negative for chest pain, palpitations and leg swelling. Gastrointestinal: Negative for constipation, diarrhea and nausea. Endocrine: Negative for cold intolerance and heat intolerance. Genitourinary: Negative for difficulty urinating, frequency and urgency. Musculoskeletal: Positive for back pain. Negative for gait problem and neck pain. Skin: Negative for color change, pallor and rash. Allergic/Immunologic: Negative for environmental allergies, food allergies and immunocompromised state. Neurological: Positive for numbness. Negative for weakness and headaches. Hematological: Does not bruise/bleed easily. Psychiatric/Behavioral: Negative for agitation, behavioral problems and confusion. OBJECTIVE: BP 120/68 Pulse 78 Temp (Src) 98.8 (Temporal) Resp 18 Ht 6' 1 (1.85m) Wt 146 lb (66.2kg) SpO2 97% BMI 19.27 kg/(m^2). Physical Exam: Alert and oriented x3 No acute distress Follows commands in all extremities Sensation intact to light touch No Jackman's, clonus, and negative babinski Able to ambulate without assistance Normal gait + Midline tenderness on palpation STRENGTH: Upper Extremity Strength Exam Right Left Elbow Flexion 5/5 5/5 Elbow Extension 5/5 5/5 Finger Flexion 5/5 5/5 Finger Extension 5/5 5/5 Finger Abduction 5/5 5/5 Lower Extremity Strength Exam Right Left Hip Flexion 5/5 5/5 Knee Flexion 5/5 5/5 Knee Extension 5/5 5/5 Dorsiflexion 5/5 5/5 Plantarflexion 5/5 5/5 Reflexes: Reflexes Right Left Biceps C5-C6 +2 +2 Triceps C7-C8 +2 +2 Wrist C5-6 +2 +2 Patellar L3-4 +2 +2 Achilles L5-S1 +2 +2 Data Review IMAGING STUDIES: XR LUMBAR 4V AP/LAT/FLEX/EXT performed on: Will be completed on the way out today Assessment/Plan: 68-year-old male suffered a fall resulting in a L2 and L4 compression fracture that were managed conservatively with TLSO brace and multimodal pain management. Patient still endorses a decent amount of pain with the brace and multimodal pain medication. He is also complaining of radicular pain in the left L3 distribution which is unusual for compression fracture which is usually more axial back pain. He does have pain on palpation to midline in his lower thoracic and entire lumbar spine region. Plan: - Lumbar x-rays on his way out today - MRI lumbar to assess radiculopathy and also acuity of fracture when he sees me back in 6 weeks - Continue brace for comfort - We did discuss that if he does not have acute pathology causing radicular pain and if he still having axial back pain when he sees me back in 6 weeks, we may consider kyphoplasty Attribution: The following portions of the patient's history were reviewed, confirmed, and updated as necessary:allergies, current medications, past family history, past medical history, past social history, past surgical history, problem list, HPI, and ROS obtained by others. Some elements may be copied from a previous office note and have been reviewed/updated where appropriate. All portions reflect current medical decision making from today. The clinical and radiographic findings as well as the risks, benefits and alternatives of treatmenthave been reviewed in detail with the patient. Advised to call the office if symptoms worsen or new symptoms develop.Patient expressed understanding and is in agreement with plan. Pro Almonte MD Department of Neurosurgery [facility] This note was partially generated using [employer] voice recognition system, and there may be some incorrect words, spellings, and punctuation that were not noted in checking the note before saving. documented in this encounterSelect Medical [facility] [place]06-06-2023 Miscellaneous Notes* Telephone Encounter - Donna Phillip RN - 03/27/2023 9:18 AM EDT Attempted to call patient at [phone]. Incorrect number listed in patient chart. Donna Phillip RN documented in this encounterSelect Medical [facility]ty [facility] [place]06-05-2023 Miscellaneous Notes* Telephone Encounter - Donna Phillip RN - 03/26/2023 2:48 PM EDT Attempted to reach patient and his brother to notify them that Winston needs x- rays completed before his appointment. Brothers' phone number is disconnected. Number listed for Winston leads to [facility] [facility] Will attempt to contact tomorrow again to see if this could potentially be patient's place of work? Otherwise no other contact info listed for patient. Donna Phillip RN [facility] NoteHNO ID: [id number] Author: Xuan Rivera RN Service: Care Management Author Type: Registered Nurse Type: Care Mgt Progress Note Filed: 02/13/2023 11:42 AM Note Text: CARE MANAGEMENT PROGRESS NOTE SERVICE DATE: 02/13/2023 SERVICE TIME: 1141 LOS: 2 days Chart reviewed. Physical therapy evaluation completed and recommendations are home. Will need script for wheeled walker. Plan is to return home with family members. SIGNATURE: Xuan Rivera RN PATIENT NAME: Winston Mari DATE: February 13, 2023 TIME: 11:40 AM PAGER/CONTACT #: [phone] NoteHNO ID: [id number] Author: Prabhakar Ramirez PA-C Service: General Surgery Author Type: Physician Director Of Finance Type: Progress Notes Filed: 02/13/2023 9:27 AM Note Text: Trauma Surgery Progress Note SERVICE DATE: 02/13/2023 Trauma Service Pager: For questions or concerns Mon-Fri 6a-5p please page [phone]. After 5pm and on Weekends and Holidays, please page [phone] if in ICU or [phone] if on RNF. SUBJECTIVE: NAEON. Pain generally well-controlled at this time. Denies numbness, tingling or weakness of the lower extremities. Denies CP, SOB, abdominal pain, N/V, chills or sweats. No new focal concerns. OBJECTIVE: Vitals: Temp (24hrs), Av.7 ?C (98.1 ?F), Min:36.6 ?C (97.9 ?F), Max:36.8 ?C (98.2 ?F) BP 131/76 Pulse 70 Temp 36.7 ?C (98.1 ?F) (Oral) Resp 18 Ht 180.3 cm (5' 11) Wt 68 kg (150 lb) SpO2 100% BMI 20.92 kg/m? O2 Therapy: Room Air IANDO: Date 02/12/23 07 - 02/13/23 0659 02/13/23 07 - 02/14/23 0659 Shift 8924-2097 4281-9379 0260-7387 24 Hour Total 9908-7853 6437-9721 9017-8936 24 Hour Total INTAKE PO 360 120 480 PO 360 120 480 Shift Total 360 120 480 OUTPUT Urine 650 4925 640 3103 Void (ml) 650 6570 766 3155 Shift Total 650 4567 342 3341 Weight (kg) 68 68 68 68 68 68 68 68 MEDICATIONS: Current Facility-Administered Medications Medication Dose Route Frequency morphine 4 mg injection 4 mg INTRAVENOUS q 4 H PRN lidocaine 4 % 1 Patch (SALONPAS) 1 Patch TRANSDERMAL DAILY And lidocaine patch - REMOVE OTHER AT BEDTIME And lidocaine - VERIFY PATCH OTHER q 8 H senna-docusate 8.6-50 mg 1 tablet (SENNA-S) 1 tablet ORAL BID enoxaparin 30 mg injection (LOVENOX) 30 mg SUBCUTANEOUS q 12 HR atorvastatin 10 mg tab(s) (LIPITOR) 10 mg ORAL DAILY cyclobenzaprine 10 mg tab(s) (FLEXERIL) 10 mg ORAL TID diphenhydrAMINE 25 mg (BENADRYL) 25 mg ORAL q 6 H PRN tamsulosin 0.4 mg cap(s) (FLOMAX) 0.4 mg ORAL DAILY pantoprazole DR 40 mg tab(s) (PROTONIX) 40 mg ORAL DAILY (6 AM) DULoxetine 30 mg cap(s) (CYMBALTA) 30 mg ORAL BID acetaminophen 975 mg tab(s) (TYLENOL) 975 mg ORAL QID NaCl 0.9% iv flush bag 20 mL INTRAVENOUS PRN ondansetron 4 mg tab(s) (ZOFRAN) 4 mg ORAL q 6 H PRN Or ondansetron (PF) 4 mg injection (ZOFRAN) 4 mg INTRAVENOUS q 6 H PRN oxyCODONE IR 5-10 mg tab(s) (ROXICODONE) 5-10 mg ORAL q 6 H PRN NaCl 0.9% iv flush bag 20 mL INTRAVENOUS PRN Labs: Recent Labs 02/13/23 0022 02/12/23 0257 02/11/23 2253 NA 138 138 140 K 4.0 3.9 3.8 CHLOR 103 104 105 CO2 26 23 24 BUN 13 9 8* CREAT 1.06 0.87 0.87 GLUC 119* 83 85 ANION 9 11 11 CA 8.8 8.8 8.9 ALB -- -- 3.9 AST -- -- 21 ALT -- -- 19 ALKPHOS -- -- 78 TBILI -- -- 0.9 WBC 6.34 8.65 9.06 HB 11.4* 12.3* 12.2* HCT 34.4* 37.0* 37.0* PLT 274 288 279 INR -- -- 1.0 PHYSICAL EXAM: Genl: Appears age appropriate. No acute distress. Resting comfortably. Head/Face: Normocephalic. Atraumatic. Eyes: EOMI. Sclera not icteric, not injected Back: Unable to fully examine secondary to limited mobility and spine precautions. Resp: Lung sounds are clear bilat. No wheezes. No rales. Breathing is non-labored on RA. CVS: RRR as above; 2+ pulses at RA, DP, PT bilat. GI: Abdomen is soft, non-tender, not distended. Bowel sounds normoactive. No peritonitis. MSK: Extremities without clubbing, cyanosis, edema. Normal ROM BUE. Limited AROM BLE secondary to reproducible back pain. Wiggles toes bilaterally. Skin: Warm and dry. Not jaundiced. Neuro: AANDOx3. Strength and sensation grossly intact. CEBALLOS. GCS15. Psych: Normal mood. Normal affect. Appropriate insight into current situation. ASSESSMENT AND PLAN: Assessment Active Hospital Problems Diagnosis Date Noted Fall from roof, initial encounter 02/11/2023 Closed compression fracture of L2 vertebra (HCC) 02/12/2023 Closed compression fracture of L4 vertebra (HCC) 02/12/2023 Assessment: 68 year old male s/p fall from roof/ladder on 02/11/2023 (transfer from [facility]) Imaging performed: 02/11/2023 - CT H/N/C/A/P/L-spine, PXR, XR femur (Performed at [facility] prior to transfer) 02/12/2023 - MRI lumbar, XR Lumbar Traumatic Injuries: L2 vertebral body fractures with edema extending into the L2 pedicle L4 vertebral body fracture Operations/Procedures: 1. None Care Plan: L2 and L4 fractures Neurosurgery consulted No plans for operative management XR Lumbar (flex/ext) stable on 02/12/23 Ok to mobilize PT/OT evals pending Pain management consulted secondary to chronic opiate use/dependence Urine toxicology + cannabinoids Social work consulted + opiates - patient receives monthly Percocet Current diet order: DIET REGULAR Pain regimen: Tylenol, lido patch, flexeril; PRN oxycodone, morphine Bowel regimen: Senna-S Labs: As above PPX: DVT: Lovenox; SCDs Ulcer: Protonix Vit D level if > 65 yo: 19.8 - start daily supplementation Consulted Services: Trauma Neurosurgery Pain management Dispo Planning: P (more content not included)...[facility]04-25-2023 NoteHNO ID: [id number] Author: Pretty Cardenas MD Service: Pain Management Author Type: Physician Type: Progress Notes Filed: 02/13/2023 11:55 AM Note Text: Name: WINSTON MARI Age: [age] year old PAIN MANAGEMENT: s/p Fall, L2 and L4 fractures, chronic pain lumbar sacral spondylosis with radiculopathy, osteoarthritis, opiate dependent Pain Description: patient feels better this AM; ongoing back pain- tolerating brace Interval HPI: Stable overnight. No acute events. Stable lumbar (flex/ext) Xrays yesterday 24H Comfort Meds: Tylenol 975 mg x4 Flexeril 10 mg x 2 Benadryl 25 mg x 1 Cymbalta 30 mg x 1 Morphine 4 mg IV x3 Zofran 4 mg p.o. x1 Oxycodone 10 mg x 4 Subjective HPI: 68-year-old male with history of chronic pain (lumbar sacral spine spondylosis with radiculopathy, osteoarthritis, opiate dependent), hyperlipidemia presented 02/11 after a 10-15 feet fall from a rough when he was cleaning his gutters. Patient heard a crack in his lower back with acute onset lower back pain. Patient was seen at [facility] ED. CT HNCAPT completed and demonstrated acute L2 fracture. Urine drug screen positive for cannabinoid, opiates. Labs included WBC 9 hemoglobin 12.2 creatinine 0.87 patient also complained of new numbness and tingling in his toes, foot, levi and thigh on the left in addition to difficulty moving his legs secondary to pain. Neurosurgery spine consulted; T SLO brace ordered. Lumbar MRI acute fracture L2 vertebral body with minimal edema extending into left L2 pedicle. Mild vertebral body height loss without significant retropulsion into the spinal canal, question minimal anterior longitudinal ligament injury. Acute L4 vertebral body fracture with mild edema extending into left L4 pedicle with minimal body height loss and no retropulsion. No evidence of epidural hematoma or significant spinal canal stenosis within the lumbar spine. Patient lives with his brother. He quit tobacco 1997. He quit alcohol 1987. His PCP has been managing his chronic pain; home regimen includes Percocet 5/325 up to 4 tabs daily, gabapentin 300 mg 3 times daily. OARRS Review: 52 prescriptions from 8 prescribers. Opiate dependent. Most recent prescriptions: 01/04, 02/02 Percocet 5/325 #120 (30-day supply) 12/30, 01/29 gabapentin 300 mg #90 (30-day supply) Current Facility-Administered Medications Medication Dose Route Frequency Provider Last Rate Last Admin morphine 4 mg injection 4 mg INTRAVENOUS q 4 H PRN Shira Galarza DO 4 mg at 02/13/23 0026 lidocaine 4 % 1 Patch (SALONPAS) 1 Patch TRANSDERMAL DAILY Prabhakar Ramirez PA-C 1 Patch at 02/12/23 1150 And lidocaine patch - REMOVE OTHER AT BEDTIME Prabhakar Ramirez PA-C And lidocaine - VERIFY PATCH OTHER q 8 H Prabhakar Ramirez PA-C senna-docusate 8.6-50 mg 1 tablet (SENNA-S) 1 tablet ORAL BID Prabhakar Ramirez PA-C 1 tablet at 02/12/232020 enoxaparin 30 mg injection (LOVENOX) 30 mg SUBCUTANEOUS q 12 HR Prabhakar Ramirez PA-C 30 mg at 02/12/232020 atorvastatin 10 mg tab(s) (LIPITOR) 10 mg ORAL DAILY Prabhakar Ramirez PA-C 10 mg at 02/12/23 1150 cyclobenzaprine 10 mg tab(s) (FLEXERIL) 10 mg ORAL TID Prabhakar Ramirez PA-C 10 mg at 02/12/232020 diphenhydrAMINE 25 mg (BENADRYL) 25 mg ORAL q 6 H PRN Doug Wadsworth MD 25 mg at 02/12/23 1843 tamsulosin 0.4 mg cap(s) (FLOMAX) 0.4 mg ORAL DAILY Shira Galarza DO 0.4 mg at 02/12/[address] 40 mg tab(s) (PROTONIX) 40 mg ORAL DAILY (6 AM) Shira Galarza DO 40 mg at 02/13/23 0641 DULoxetine 30 mg cap(s) (CYMBALTA) 30 mg ORAL BID Shira Galarza DO 30 mg at 02/12/232020 acetaminophen 975 mg tab(s) (TYLENOL) 975 mg ORAL QID Shira Galarza DO 975 mg at 02/13/23 0641 NaCl 0.9% iv flush bag 20 mL INTRAVENOUS PRN Shira Galarza DO ondansetron 4 mg tab(s) (ZOFRAN) 4 mg ORAL q 6 H PRN Shira Galarza DO 4 mg at 02/13/23 0025 Or ondansetron (PF) 4 mg injection (ZOFRAN) 4 mg INTRAVENOUS q 6 H PRN Shira Galarza DO oxyCODONE IR 5-10 mg tab(s) (ROXICODONE) 5-10 mg ORAL q 6 H PRN Shira Galarza DO 10 mg at 02/13/23 0641 NaCl 0.9% iv flush bag 20 mL INTRAVENOUS PRN Shira Galarza DO omeprazole (PRILOSEC) 40 mg capsule, Take 40 mg by mouth once daily., Disp: , Rfl: DULoxetine (CYMBALTA) 30 mg capsule, TAKE 1 CAPSULE BY MOUTH TWICE A DAY FOR 90 DAYS - DOSE INCREASE - DO NOT CRUSH OR CHEW, Disp: , Rfl: oxyCODONE IR (ROXICODONE) 5 mg immediate release tablet, Take 5 mg by mouth every 6 hours as needed., Disp: , Rfl: gabapentin (NEURONTIN) 300 mg capsule, Take 1 capsule by mouth four times daily for 30 days., Disp: 120 capsule, Rfl: 11 cyclobenzaprine (FLEXERIL) 10 mg tablet, Take 1 tablet by mouth every 8 hours as needed for Muscle Spasm (or pain)., Disp: 14 tablet, Rfl: 0 atorvastatin (LIPITOR) 10 mg tablet, Take 1 tablet by mouth once daily. BEFORE BEDTIME, Disp: 30 tablet, Rfl: 5 docusate sodium (COLACE) 100 mg capsule, TAKE 1 CAPSU (more content not included)...[facility]04-24-2023 NoteHNO ID: [id number] Author: Prabhakar Ramirez PA-C Service: General Surgery Author Type: Physician Director Of Finance Type: Progress Notes Filed: 02/12/2023 11:33 AM Note Text: Trauma Surgery Progress Note SERVICE DATE: 02/12/2023 Trauma Service Pager: For questions or concerns Mon-Fri 6a-5p please page [phone]. After 5pm and on Weekends and Holidays, please page [phone] if in ICU or [phone] if on RNF. SUBJECTIVE: NAEON. Patient notes continued moderate back pain. He had been experiencing some numbness and tingling of the left foot that has now improved/resolved. He notes limited movement of his legs, not secondary to perceived weakness but attributable to back pain with attempts. He denies CP, SOB, abdominal pain, N/V, chills or sweats. Wishes to eat. OBJECTIVE: Vitals: Temp (24hrs), Av.7 ?C (98.1 ?F), Min:36.6 ?C (97.9 ?F), Max:36.8 ?C (98.2 ?F) BP 142/84 Pulse 68 Temp 36.7 ?C (98.1 ?F) (Oral) Resp 18 Ht 180.3 cm (5' 11) Wt 68 kg (150 lb) SpO2 97% BMI 20.92 kg/m? O2 Therapy: Room Air IANDO: Date 02/11/23 07 - 02/12/23 0659 02/12/23 07 - 02/13/23 0659 Shift 6614-7525 8659-5465 8264-1050 24 Hour Total 7478-1950 3730-8124 7666-6859 24 Hour Total INTAKE Shift Total OUTPUT Urine 491 225 5374 650 650 Void (ml) 228 258 8411 650 650 Shift Total 869 083 3388 650 650 Weight (kg) 68 68 68 68 68 68 68 MEDICATIONS: Current Facility-Administered Medications Medication Dose Route Frequency morphine 4 mg injection 4 mg INTRAVENOUS q 4 H PRN tamsulosin 0.4 mg cap(s) (FLOMAX) 0.4 mg ORAL DAILY pantoprazole DR 40 mg tab(s) (PROTONIX) 40 mg ORAL DAILY (6 AM) DULoxetine 30 mg cap(s) (CYMBALTA) 30 mg ORAL BID lactated ringers iv infusion 100 mL/hr INTRAVENOUS CONTINUOUS acetaminophen 975 mg tab(s) (TYLENOL) 975 mg ORAL QID NaCl 0.9% iv flush bag 20 mL INTRAVENOUS PRN ondansetron 4 mg tab(s) (ZOFRAN) 4 mg ORAL q 6 H PRN Or ondansetron (PF) 4 mg injection (ZOFRAN) 4 mg INTRAVENOUS q 6 H PRN oxyCODONE IR 5-10 mg tab(s) (ROXICODONE) 5-10 mg ORAL q 6 H PRN NaCl 0.9% iv flush bag 20 mL INTRAVENOUS PRN Labs: Recent Labs 02/12/23 0257 02/11/23 2253 NA 138 140 K 3.9 3.8 CHLOR 104 105 CO2 23 24 BUN 9 8* CREAT 0.87 0.87 GLUC 83 85 ANION 11 11 CA 8.8 8.9 ALB -- 3.9 AST -- 21 ALT -- 19 ALKPHOS -- 78 TBILI -- 0.9 WBC 8.65 9.06 HB 12.3* 12.2* HCT 37.0* 37.0* PLT 288 279 INR -- 1.0 PHYSICAL EXAM: Genl: Appears age appropriate. No acute distress. Resting comfortably. Head/Face: Normocephalic. Atraumatic. Eyes: EOMI. Sclera not icteric, not injected Back: Unable to fully examine secondary to limited mobility and spine precautions. Resp: Lung sounds are clear bilat. No wheezes. No rales. Breathing is non-labored on R. CVS: RRR as above; 2+ pulses at RA, DP, PT bilat. GI: Abdomen is soft, non-tender, not distended. Bowel sounds normoactive. No peritonitis. MSK: Extremities without clubbing, cyanosis, edema. Normal ROM BUE. Limited AROM BLE secondary to reproducible back pain. Wiggles toes bilaterally. Skin: Warm and dry. Not jaundiced. Neuro: AANDOx3. Strength and sensation grossly intact. CEBALLOS. GCS15. Psych: Normal mood. Normal affect. Appropriate insight into current situation. ASSESSMENT AND PLAN: Assessment Active Hospital Problems Diagnosis Date Noted Fall from roof, initial encounter 02/11/2023 Closed compression fracture of L2 vertebra (HCC) 02/12/2023 Closed compression fracture of L4 vertebra (HCC) 02/12/2023 Assessment: 68 year old male s/p fall from roof/ladder on 02/11/2023 (transfer from [facility]) Imaging performed: 02/11/2023 - CT H/N/C/A/P/L-spine, PXR, XR femur (Performed at [facility] prior to transfer) 02/12/2023 - MRI lumbar Traumatic Injuries: L2 vertebral body fractures with edema extending into the L2 pedicle L4 vertebral body fracture Operations/Procedures: 1. None Care Plan: L2 and L4 fractures Neurosurgery consulted No plans for operative management Continue bedrest/spine precautions for now Plan for flexion/extension lumbar x-rays Likely management with TLSO brace and outpatient follow-up Pain management consulted 2/2 chronic opiate use Urine toxicology + cannabinoids Social work consulted + opiates - patient receives monthly Percocet Current diet order: DIET NPO Pain regimen: Tylenol, lido patch, flexeril; PRN oxycodone, morphine Bowel regimen: Senna-S Labs: As above PPX: DVT: Lovenox 30 BID starting 02/12/2023; SCDs Ulcer: Protonix Vit D level if > 65 yo: pending Consulted Services: Trauma Neurosurgery Pain management (p) Dispo Planning: PT/OT recs pending. Case management following. Incidentals: None Follow Up Needs: Neurosurgery - timing TBD PCP Staff Trauma Surgeon: Dr. Cordero SIGNATURE: Prabhakar Ramirez PA-C PATIENT NAME: Winston Mari DATE: 02/12/2023 TIME: 11:17 AM Pager: see below Trauma Service Pager: For questions o (more content not included)...[facility] 01-13-[address] Sweeney [facility] January 14, 2023 12:17am Note Date/Time January 13, 2023 9:3 6pm [facility] Medical Records Department [address] [place] [address] Emergency Department Summary 01/13/23 MR#: [id number] Acct: [id number] Name: WINSTON MARI Rep #:[id number] : 1955 67 From: Mark Sweeney DO PCP: Dr. Eugenio Mayen DO Status:REG ER Location: ED HPI History of Present Illness Chief Complaint: Lower Extremity Injury Narrative Narrative: 67-year-old male presenting with left hip pain. He states that his neighbors trampoline blew away with a heavy when and he and his son went and tried to dragthis back to her house to secure it. During that time he strained his left hip. He denies any direct trauma. He states his muscles feel tight in his leg. He has been ambulatory. No paresthesias. Patient also has noted over a 1 year history of left testicular swelling. He states that after carrying the trampoline it hurts worse. He thinks the trampoline may have bumped it. He states he is already been seen by Dr. Mayen and had an ultrasound of it. He is getting referred to a specialist because he states there is fluid in it. He states there is also concern for malignancy. [facility] Medical History Epilepsy Hemorrhoid High cholesterol Sciatica Home Medications omeprazole 20 mg capsule,delayed release 40 mg PO DAILY 03/23/22 [History Last Taken Unknown] gabapentin 300 mg capsule 300 mg PO 4X/DAY 04/02/22 [History Last Taken Unknown] oxycodone-acetaminophen 5 mg-325 mg tablet (Percocet) 1 tab PO Q6H PRN pain 3 days #10 tabs 04/16/22 [Rx Last Taken Unknown] hydrocortisone acetate 25 mg rectal suppository (Anusol-HC) 25 mg VT QHS #12 ea 04/27/22 [Rx Last Taken Unknown] polyethylene glycol 3350 17 gram/dose oral powder (Miralax) 17 g PO DAILY #119 grams 04/27/22 [Rx Last Taken Unknown] atorvastatin 40 mg tablet (Lipitor) 40 mg PO QHS 01/13/23 [History Last Taken Unknown] Allergy/AdvReac Type Severity Reaction Status Date / Time adhesive tape [tape] AdvReac Rash Verified 01/13/23 20:46 hydrocodone [From [place]] AdvReac Upset Verified 01/13/23 20:46 Stomach ibuprofen AdvReac Upset Verified 01/13/23 20:46 Stomach ketorolac [From Toradol] AdvReac Rash Verified 01/13/23 20:46 naproxen AdvReac Rash Verified 01/13/23 20:46 tramadol AdvReac Upset Verified 01/13/23 20:46 Stomach Surgical History S/P clamping of cerebral aneurysm Social History household members: significant other Smoking Status: Former smoker alcohol intake: former substance use type: does not use ROS ROS ED Constitutional Constitutional ED: Denies chills or fever(s) Eyes Eyes: Denies change in vision or diplopia ENT ENT ED: Denies rhinorrhea or sore throat Cardiovascular Cardiovascular: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 and greater tuberosity. Decreased subacromial space. Right-sided ribs appear intact. IMPRESSION: No acute fracture seen. Osteoarthritis and chronic rotator cuff tear similar to the earlier study. Interpreted by: Jono Nicholas MD Preliminary Report By: Jono Nicholas MD Electronically signed By Jono Nicholas MD Dictated Date: 07/24/2022 11:17:58 PM Prelim Date: 07/24/2022 11:18:45 PM Sign Date: 07/24/2022 11:18:45 PM Ordering Provider: [facility]10-03-2022 Note ORIGINAL EXAMINATION: TWO XRAY VIEWS OF THE RIGHT [id number]/3/2022 11:46 am XR right shoulder three views COMPARISON: 12/07/2021 HISTORY: ORDERING SYSTEM PROVIDED HISTORY: Reason for Exam: pain, s/p fall, trauma, pain, FINDINGS: There is no visualized acute fracture or dislocation. No radio-opaque foreign body or soft tissue gas is seen. 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 Cystic changes in the humeral head and greater tuberosity. Decreased subacromial space. Right-sided ribs appear intact. IMPRESSION: No acute fracture seen. Osteoarthritis and chronic rotator cuff tear similar to the earlier study. Interpreted by: Jono Nicholas MD Preliminary Report By: Jono Nicholas MD Electronically signed By Jono Nicholas MD Dictated Date: 07/24/2022 11:17:58 PM Prelim Date: 07/24/2022 11:18:45 PM Sign Date: 07/24/2022 11:18:45 PM Ordering Provider: [facility]06-12-2022 Hospital Discharge instructions Patient Education 04/02/2022 08:42:19 Chronic Pain Chronic Pain Pain serves an important role. It lets you know something is wrong that needs your attention. When the body heals, pain normally goes away. When pain lasts longer than 6 months, it is called chronic pain. This is pain that is present even after the body has healed. Chronic pain can cause mood problems and get in the way of your relationships and your daily life. A number of conditions can cause chronic pain. Some of the more common include: Previous surgery An old injury Infection Diseases such as diabetes Nerve damage Back injury Arthritis Migraine or other headaches Fibromyalgia Cancer Depression and stress can make chronic pain symptoms worse. In some cases, a cause for the pain can't be found. Treatment Treatment can greatly reduce pain. In many cases, pain can become less severe, occur less often, and interfere less with your daily life. Chronic pain is often treated with a combination of medicines, therapies, and lifestyle changes. You will work closely with your healthcare provider to find a treatment plan that works best for you. Ask your healthcare provider for a referral to a pain management specialty center. These can provide the most recent and proven pain management strategies, along with emotional support and comprehensive services. Several different types of medicines may be prescribed for chronic pain. Work with your healthcare provider to develop a medicine plan that helps manage your pain. Physical therapy can help reduce certain types of chronic pain. Occupational therapy teaches you how to do routine tasks of daily living in ways that lessen your discomfort. Counseling can help you cope better with stress and pain. Other therapies such as meditation, yoga, biofeedback, massage, and acupuncture can also help manage chronic pain. Changing certain habits can help reduce chronic pain. They include: oEating healthy oDeveloping an exercise routine oGetting enough sleep oStopping smoking and limiting alcohol use oLosing excess weight Follow-up care Follow up with your healthcare provider, or as advised. Let your healthcare provider know if your current treatment plan is working or if changes are needed. Resources For more information, contact: [employer], ahma.memberclicks.net or 142-198-0456 [employer], theacpa.org or [phone] [employer]. [address] [place] [address]. All rights reserved. This information is not intended as a substitute for professional medical care. Always follow yourhealthcare professional's instructions. Follow Up Care 04/02/2022 08:18:50 With:EUGENIO MAYEN DO Address: [address] [place] [address] [place] [address]- [phone] When:2-4 days [facility] 05-18-2022 Hospital Discharge instructions* Instructions* Segun Joyner MD - 03/08/2022 Return for abdominal pain/fever or vomiting as that could point to more going on than sciatica; Useyour muscle relaxer as prescribed * Attachments The following attachments cannot be sent through Care Everywhere. * Sciatica (Thai) documented in this [facility] Work Phone: [phone]) 261-730405-15-2022 Hospital Discharge instructions Patient Education 03/05/2022 12:43:55 Hip Strain Hip Strain You have a strain of the muscles around the hip joint. A muscle strain is a stretching or tearing of muscle fibers. This causes pain, especially when you move that muscle. There may also be some swelling and bruising. Home care Stay off the injured leg as much as possible until you can walk on it without pain. If you have a lot of pain with walking, crutches or a walker may be prescribed. These can be rented or purchased atmany pharmacies and surgical or orthopedic supply stores. Follow your healthcare provider's advice about when to start putting weight on that leg. Apply an ice pack over the injured area for 15 to 20 minutes every 3 to 6 hours. Do this for the first 24 to 48 hours. You can make an ice pack by filling a plastic bag that seals at the top with icecubes and then wrapping it with a thin towel. Be careful not to injure your skin with the ice treatments. Ice should never be applied directly to skin. Continue the use of ice packs for relief of pain and swelling as needed. After 48 hours, apply heat (warm shower or warm bath) for 15 to 20 minutesseveral times a day, or alternate ice and heat. You may use [id number] pain medicine to control pain, unless another pain medicine was prescribed. If you have chronic liver or kidney disease or ever had a stomach ulcer or gastrointestinal bleeding, talk with your healthcare provider before using these medicines. If you play sports, you may resume these activities when you are able to hop and run on the injuredleg without pain. Follow-up care Follow up with your healthcare provider, or as advised. If your symptoms don't start to get better after a week, more tests may be needed. If X-rays were taken, you will be told of any new findings that may affect your care. When to seek medical advice Call your healthcare provider right away if any of these occur: Increased swelling or bruising Increased pain Losing the ability to put weight on the injured side [id number] [employer]. [address] [place] [address]. All rights reserved. This information is not intended as a substitute for professional medical care. Always follow yourhealthcare professional's instructions. 03/05/2022 12:43:48 Sciatica Sciatica Sciatica is a condition that causes pain in the lower back that spreads down into the buttock, hip,and leg. Sometimes the leg pain can happen without any back pain. Sciatica happens when a spinal nerve is irritated or has pressure put on it as comes out of the spinal canal in the lower back. This most often happens when a bulge or rupture of a nearby spinal disk presses on the nerve. Sciatica can also be caused by a narrowing of the spinal canal (spinal stenosis) or spasm of the muscle in the buttocks that the sciatic nerve passes through (pyriform muscle). Sciatica is also called lumbar radiculopathy. Sciatica may begin after a sudden twisting or bending force, such as in a car accident. Or it can happen after a simple awkward movement. In either case, muscle spasm often also happens. Muscle spasmmakes the pain worse. A healthcare provider makes a diagnosis of sciatica from your symptoms and a physical exam. Unless you had an injury from a car accident or fall, you usually won t have X-rays taken at this time. This is because the nerves and disks in your back can t be seen on an X-ray. If the provider sees signsof a compressed nerve, you will need to schedule an MRI scan as an outpatient. Signs of a compressed nerve include loss of strength in a leg. Most sciatica gets better with medicine, exercise, and physical therapy. If your symptoms continue after at least 3 months of medical treatment, you may need surgery or injections to your lower back. Home care Follow these tips when caring for yourself at home: You may need to stay in bed the first few days. But as soon as possible, begin sitting up or walking. This will help you avoid problems that come from staying in bed for long periods. When in bed, try to find a position that is comfortable. A firm mattress is best. Try lying flat onyour back with pillows under your knees. You can also try lying on your side with your knees bent up toward your chest and a pillow between your knees. Avoid sitting for long periods. This puts more stress on your lower back than standing or walking. Use heat from a hot shower, hot bath, or heating pad to help ease pain. Massage can also help. You can also try using an ice pack. You can make your own ice pack by putting ice cubes in a plastic bag. Wrap the bag in a thin towel. Try both heat and cold to see which works best. Use the method that feels best for 20 minutes several times a day. You may use acetaminophen or ibuprofen to ease pain, unless another pain medicine was prescribed. Note: If you have chronic liver or kidney disease, talk with your healthcare provider before taking these medicines. Also talk with your provider if you ve had a stomach ulcer or gastrointestinal bleeding. Use safe lifting methods. Don t lift anything heavier than 15 pounds until all of the pain is gone. Follow-up care Follow up with your healthcare provider, or as advised. You may need physical therapy or additionaltests. If X-rays were taken, a radiologist will look at them. You will be told of any new findings that may affect your care. When to seek medical advice Call your healthcare provider right away if any of these occur: Pain gets worse even after taking prescribed medicine Weakness or numbness in 1 or both legs or hips Numbness in your groin or genital area You can t control your bowel or bladder Fever Redness or swelling over your back or spine [id number] [employer]. [address] [place] [address], [place] [address]. All rights reserved. This information is not intended as a substitute for professional medical care. Always follow yourhealthcare professional's instructions. Follow Up Care 03/05/2022 12:34:31 With:EUGENIO MAYEN DO Address: [address] [facility] [place] [address]- [phone] When:2-4 days Comments:Schedule an appointment for follow-up if symptoms or not improving.Limit activity as tolerated.Use ice or cold compresses to painful areas for the next 2 days and warm, moist heat thereafter.Use Tylenol for pain as needed.Use cyclobenzaprine as previously prescribed for muscle pain and spasm as needed.Return to the ED if symptoms worsen. [facility] 05-11-2022 Hospital Discharge instructions Patient Education 03/01/2022 13:53:57 BACK PAIN w/ SCIATICA Sciatica Sciatica is a condition that causes pain in the lower back and down into the buttock, hip, and leg.Sometimes the leg pain can happen without any back pain. Sciatica happens when a spinal nerve is irritated or has pressure put on it as comes out of the spinal canal in the lower back. This most often happens when a bulge or rupture of a nearby spinal disk presses on the nerve. Sciatica can also becaused by a narrowing of the spinal canal (spinal stenosis) or spasm of the muscle in the buttocks that the sciatic nerve passes through (pyriform muscle). Sciatica is also called lumbar radiculopathy. Sciatica may begin after a sudden twisting or bending force, such as in a car accident. Or it can happen after a simple awkward movement. In either case, muscle spasm often also happens. Muscle spasmmakes the pain worse. A health care provider makes a diagnosis of sciatica from your symptoms and a physical exam. Unlessyou had an injury from a car accident or fall, you usually won t have X-rays taken at this time. This is because the nerves and disks in your back can t be seen on an X-ray. If the provider sees signs of a compressed nerve, you will need to schedule an MRI scan as an outpatient. Signs of a compressed nerve include loss of strength in a leg. Most sciatica gets better with medicine, exercise, and physical therapy. If your symptoms continue after at least 3 months of medical treatment, you may need surgery. Home care Follow these tips when caring for yourself at home: You may need to stay in bed the first few days. But as soon as possible, begin sitting or walking. This will help you avoid problems that come from staying in bed for long periods. When in bed, try to find a position that is comfortable. A firm mattress is best. Try lying flat onyour back with pillows under your knees. You can also try lying on your side with your knees bent up toward your chest and a pillow between your knees. Avoid sitting for long periods. This puts more stress on your lower back than standing or walking. Use heat from a hot shower, hot bath, or heating pad to help ease pain. Massage can also help. You can also try using an ice pack. You can make your own ice pack by putting ice cubes in a plastic bag. Wrap the bag in a thin towel. Try both heat and cold to see which works best. Use the method that feels best for 20 minutes several times a day. You may use acetaminophen or ibuprofen to ease pain, unless another pain medicine was prescribed. Note: If you have chronic liver or kidney disease, talk with your health care provider before taking these medicines. Also talk with your provider if you ve had a stomach ulcer or GI bleeding. Use safe lifting methods. Don t lift anything heavier than 15 pounds until all of the pain is gone. Follow-up care Follow up with your health care provider if your symptoms don t start to get better after 1 week. You may need physical therapy or additional tests. If X-rays were taken, they will be looked at by a radiologist. You will be told of any new findingsthat may affect your care. When to seek medical advice Call your health care provider right away if any of these occur: Pain gets worse even after taking prescribed medicine Weakness or numbness in 1 or both legs or hips Numbness in your groin or genital area You can t control your bowel or bladder Fever Redness or swelling over your back or spine [id number] [employer]. [address] [place] [address], [place] [address]. All rights reserved. This information is not intended as a substitute for professional medical care. Always follow yourhealthcare professional's instructions. Follow Up Care 03/01/2022 13:28:28 With:Pain management and back doctor Address:Unknown When:2-4 days Comments:Schedule appointment as soon as possibleAvoid pressure to peña soto. May uae relafen and tylenol forpain [facility] 05-08-2022 Hospital Discharge instructions Patient Education 02/26/2022 10:40:22 Back Care Tips Back Care Tips Caring for your back These are things you can do to prevent a recurrence of acute back pain and to reduce symptoms from chronic back pain: Maintain a healthy weight. If you are overweight, losing weight will help most types of back pain. Exercise is an important part of recovery from most types of back pain. The muscles behind and in front of the spine support the back. This means strengthening both the back muscles and the abdominalmuscles will provide better support for your spine. Swimming and brisk walking are good overall exercises to improve your fitness level. Practice safe lifting methods (below). Practice good posture when sitting, standing and walking. Avoid prolonged sitting. This puts more stress on the lower back than standing or walking. Wear quality shoes with sufficient arch support. Foot and ankle alignment can affect back symptoms.Women should avoid wearing high heels. Therapeutic massage can help relax the back muscles without stretching them. During the first 24 to 72 hours after an acute injury or flare-up of chronic back pain, apply an ice pack to the painful area for 20 minutes and then remove it for 20 minutes, over a period of 60 to 90 minutes, or several times a day. As a safety precaution, do not use a heating pad at bedtime. Sleeping on a heating pad can lead to skin onofre or tissue damage. You can alternate ice and heat therapies. Medicines Talk to your healthcare provider before using medicines, especially if you have other medical problems or are taking other medicines. You may use acetaminophen or ibuprofen to control pain, unless your healthcare provider prescribed other pain medicine. If you have chronic conditions like diabetes, liver or kidney disease, stomach ulcers, or gastrointestinal bleeding, or are taking blood thinners, talk with your healthcare provider before taking any medicines. Be careful if you are given prescription pain medicines, narcotics, or medicine for muscle spasm. They can cause drowsiness, affect your coordination, reflexes, and judgment. Do not drive or operate heavy machinery while taking these types of medicines. Take prescription pain medicine only as prescribed by your healthcare provider. Lumbar stretch Here is a simple stretching exercise that will help relax muscle spasm and keep your back more limber. If exercise makes your back pain worse, don t do it. Lie on your back with your knees bent and both feet on the ground. Slowly raise your left knee to your chest as you flatten your lower back against the floor. Hold for 5 seconds. Relax and repeat the exercise with your right knee. Do 10 of these exercises for each leg. Safe lifting method Don t bend over at the waist to lift an object off the floor. Instead, bend your knees and hips in a squat. Keep your back and head upright Hold the object close to your body, directly in front of you. Straighten your legs to lift the object. Lower the object to the floor in the reverse fashion. If you must slide something across the floor, push it. Posture tips Sitting Sit in chairs with straight backs or low-back support. Keep your knees lower than your hips, with your feet flat on the floor. When driving, sit up straight. Adjust the seat forward so you are not leaning toward the steering wheel. A small pillow or rolled towel behind your lower back may help if you are driving long distances. Standing When standing for long periods, shift most of your weight to one leg at a time. Alternate legs every few minutes. Sleeping The best way to sleep is on your side with your knees bent. Put a low pillow under your head to support your neck in a neutral spine position. Avoid thick pillows that bend your neck to one side. Puta pillow between your legs to further relax your lower back. If you sleep on your back, put pillowsunder your knees to support your legs in a slightly flexed position. Use a firm mattress. If your mattress sags, replace it, or use a 1/2-inch plywood board under the mattress to add support. Follow-up care Follow up with your healthcare provider, or as advised. If X-rays, a CT scan or an MRI scan were taken, they will be reviewed by a radiologist. You will benotified of any new findings that may affect your care. Call 911 Call 911 if any of the following occur: Trouble breathing Confusion Very drowsy Fainting or loss of consciousness Rapid or very slow heart rate Loss of bowel or bladder control When to seek medical advice Call your healthcare provider right away if any of the following occur: Pain becomes worse or spreads to your arms or legs Weakness or numbness in one or both arms or legs Numbness in the groin area [id number] [employer]. [address] [place] [address]. All rights reserved. This information is not intended as a substitute for professional medical care. Always follow yourhealthcare professional's instructions. Follow Up Care 02/26/2022 10:36:22 With:EUGENIO MAYEN DO Address: [address] [place] [phone] When:2-4 days [facility] 03-12-2022 Hospital Discharge instructions Patient Education 12/31/2021 17:53:18 Shoulder Sprain Shoulder Sprain A sprain is a stretching or tearing of the ligaments that hold a joint together. A sprain may take up to 8 weeks to fully heal, depending on how severe it is. Moderate to severe shoulder sprains are treated with a sling or shoulder immobilizer. Minor sprains can be treated without any special support. Home care The following guidelines will help you care for your injury at home: If a sling was given to you, leave it in place for the time advised by your healthcare provider. Ifyou aren t sure how long to wear it, ask for advice. If the sling becomes loose, adjust it so that your forearm is level with the ground. Your shoulder should feel well supported. Put an ice pack on the injured area for 20 minutes every 1 to 2 hours the first day. You can make your own ice pack by putting ice cubes in a plastic bag. A bag of frozen peas or something similar works well too. Wrap the bag in a thin towel. Continue with ice packs 3 to 4 times a day for the next 2 to 3 days. Then use the pack as needed to ease pain and swelling. You may use acetaminophen or ibuprofen to control pain, unless another pain medicine was prescribed. If you have chronic liver or kidney disease, talk with your healthcare provider before using thesemedicines. Also talk with your provider if you ve had a stomach ulcer or gastrointestinal bleeding. Shoulder joints become stiff if left in a sling for too long. You should start range of motion exercises about 7 to 10 days after the injury. Talk with your provider to find out what type of exercises to do and how soon to start. Follow-up care Follow up with your healthcare provider, or as advised. Any X-rays you had today don t show any broken bones, breaks, or fractures. Sometimes fractures dont show up on the first X-ray. Bruises and sprains can sometimes hurt as much as a fracture. These injuries can take time to heal completely. If your symptoms don t improve or they get worse, talk with your provider. You may need a repeat X-ray or other treatments. When to seek medical advice Call your healthcare provider right away if any of these occur: Shoulder pain or swelling in your arm that gets worse Fingers become cold, blue, numb, or tingly Large amount of bruising of the shoulder or upper arm Fever or chills [id number] [employer]. [address] [place] [address]. All rights reserved. This information is not intended as a substitute for professional medical care. Always follow yourhealthcare professional's instructions. Follow Up Care 12/31/2021 17:21:44 With:EUGENIO MAYEN DO Address: [phone] When:2-4 days [facility] 02-13-2022 Hospital Discharge instructions Patient Education 12/04/2021 11:27:40 Shoulder Sprain Shoulder Sprain A sprain is a stretching or tearing of the ligaments that hold a joint together. A sprain may take up to 8 weeks to fully heal, depending on how severe it is. Moderate to severe shoulder sprains are treated with a sling or shoulder immobilizer. Minor sprains can be treated without any special support. Home care The following guidelines will help you care for your injury at home: If a sling was given to you, leave it in place for the time advised by your healthcare provider. Ifyou aren t sure how long to wear it, ask for advice. If the sling becomes loose, adjust it so that your forearm is level with the ground. Your shoulder should feel well supported. Put an ice pack on the injured area for 20 minutes every 1 to 2 hours the first day. You can make your own ice pack by putting ice cubes in a plastic bag. A bag of frozen peas or something similar works well too. Wrap the bag in a thin towel. Continue with ice packs 3 to 4 times a day for the next 2 to 3 days. Then use the pack as needed to ease pain and swelling. You may use acetaminophen or ibuprofen to control pain, unless another pain medicine was prescribed. If you have chronic liver or kidney disease, talk with your healthcare provider before using thesemedicines. Also talk with your provider if you ve had a stomach ulcer or gastrointestinal bleeding. Shoulder joints become stiff if left in a sling for too long. You should start range of motion exercises about 7 to 10 days after the injury. Talk with your provider to find out what type of exercises to do and how soon to start. Follow-up care Follow up with your healthcare provider, or as advised. Any X-rays you had today don t show any broken bones, breaks, or fractures. Sometimes fractures dont show up on the first X-ray. Bruises and sprains can sometimes hurt as much as a fracture. These injuries can take time to heal completely. If your symptoms don t improve or they get worse, talk with your provider. You may need a repeat X-ray or other treatments. When to seek medical advice Call your healthcare provider right away if any of these occur: Shoulder pain or swelling in your arm that gets worse Fingers become cold, blue, numb, or tingly Large amount of bruising of the shoulder or upper arm Fever or chills [id number] [employer]. [address] [place] [address], [place] [address]. All rights reserved. This information is not intended as a substitute for professional medical care. Always follow yourhealthcare professional's instructions. 12/04/2021 11:27:38 Fall, Mechanical Mechanical Fall You have had a fall today. It appears that the cause is what is called mechanical. That means that you slipped, tripped, or lost your balance. If your fall had been because of fainting or a seizure, you might need other tests. It is normal to feel sore and tight in your muscles and back the next day, and not just the musclesyou injured at first. Remember, all the parts of your body are connected, so while initially one area hurts, the next day another may hurt. Also, when you injure yourself, it causes inflammation, which then causes the muscles to tighten up and hurt more. After the initial worsening, it should gradually improve over the next few days. Do report more severe pain. Even without a definite head injury, you can still get a concussion from your head suddenly jerkingforward, backward, or sideways when falling. Concussions and even bleeding can still happen, especially if you have had a recent injury or take blood thinner medicine. It is not unusual to have a mild headache and feel tired and even nauseous or dizzy. Home care Rest today and go back to your normal activities when you are feeling back to normal. If you were injured during the fall, follow the advice from your healthcare provider regarding careof your injury. At first, do not try to stretch out the sore spots. If there is a strain, stretching may make it worse. Massage may help relax the muscles without stretching them. You can use an ice pack or cold compress on and off to the sore spots 10 to 20 minutes at a time, as often as you feel comfortable. This may help reduce the inflammation, swelling and pain. If you have any scrapes or abrasions, they usually heal within 10 days. It is important to keep theabrasions clean while they initially start to heal. However, an infection may happen even with proper care, so watch for early signs of infection (such as warmth, redness, or swelling). Medicines Talk to your healthcare provider before taking new medicines, especially if you have other medical problems or are taking other medicines. If you need anything for pain, you can take acetaminophen or ibuprofen, unless you were given a different pain medicine to use. Talk with your healthcare provider before using these medicines if you have chronic liver or kidney disease, or ever had a stomach ulcer or gastrointestinal bleeding, or are taking blood thinner medicines. Be careful if you are given prescription pain medicines, narcotics, or medicine for muscle spasm. They can make you sleepy and dizzy, and can affect your coordination, reflexes, and judgment. Do not drive or do work where you can injure yourself when taking them. Fall prevention Fix, remove, or replace anything that caused your fall. Make your home safe by keeping walkways clear of objects you may trip over. Use nonslip pads under rugs. Don't use small area rugs or throw rugs. Don't walk in poorly lit areas. Don't stand on chairs or wobbly ladders. Use caution when reaching overhead or looking upward. This position can cause a loss of balance. Be sure your shoes fit properly, have nonslip bottoms and are in good condition. Be cautious when going up and down curbs, and walking on uneven sidewalks. If your balance is poor, consider using a cane or walker. Stay as active as you can. Balance, flexibility, strength, and endurance all come from exercise. They all play a role in preventing falls. If you have pets, know where they are before you stand up or walk so you don't trip over them. Limit alcohol intake. Alcohol can cause balance problems and increase the risk of falls. Use night lights. Have your eyes tested to be sure you are seeing well, even if you already wear glasses. Follow-up Follow up with your healthcare provider, or as advised. If X-rays or CT scans were done, you will be notified if there is a change in the reading, especially if it affects treatment. Call 911 Call 911 if any of these happen: Trouble breathing Confused or difficulty arousing Fainting or loss of consciousness Rapid or very slow heart rate Seizure Difficulty with speech or vision, weakness of an arm or leg Difficulty walking or talking, loss of balance, numbness or weakness in one side of your body, or facial droop When to seek medical advice Call your healthcare provider right away if any of these happen: Repeated mechanical falls, or unexplained falls Dizziness Severe headache Blood in vomit, stools (black or red color) [id number] [employer]. [address] [place] [address], [place] [address]. All rights reserved. This information is not intended as a substitute for professional medical care. Always follow yourhealthcare professional's instructions. Follow Up Care 12/04/2021 11:20:21 With:EUGENIO MAYEN DO Address: [id number] When:2-4 days [facility] 11-20-2021 Hospital Discharge instructions Patient Education 09/10/2021 11:46:40 Back Pain During Back Pain During As your body changes during , your back must work in new ways. This can be painful if yourback isn t prepared. Back pain is due to many causes. Physical changes to your body can strain yourback and its supporting muscles. Also, certain hormone levels (chemicals that carry messages throughout the body) increase during . This can affect how the muscles and joints work together. All of these changes can lead to pain. Your back The spine is the column of bones that runs down your back. It has three curves: the cervical, thoracic, and lumbar. These curves support your body and help you keep your balance. Muscles in your backand abdomen (stomach) brace and support the spine. Muscles in your buttocks, pelvis, and thighs work with your spine to let you twist, bend, and lift. Your back during During , changes in your body affect your back and posture (how you position your body). Your body s shape and size change, making your muscles work harder. As the body prepares for childbirth, hormones cause pelvic muscles, ligaments, and joints to loosen. This can lead to pain. These changes may also cause you to use poor posture (positions that strain the spine). Over time, poor posture often results in back pain. Talk with your healthcare provider about whether a maternity support belt might help relieve some of the pressure and pain in your lower back. [id number] [employer]. [address] [place] [address]. All rights reserved. This information is not intended as a substitute for professional medical care. Always follow [facility] professional's instructions. 09/10/2021 11:38:24 Back Sprain/Strain Back Sprain or Strain Injury to the muscles (strain) or ligaments (sprain) around the spine can be troubling. Injury may occur after a sudden forceful twisting or bending force such as in a car accident, after a simple awkward movement, or after lifting something heavy with poor body positioning. In any case, muscle spasm is often present and adds to the pain. Thankfully, most people feel better in 1 to 2 weeks, and most of the rest in 1 to 2 months. Most people can remain active. Unless you had a forceful or traumatic physical injury such as a car accident or fall, X-rays may not be ordered for the first evaluation of a back sprain or strain. If pain continues and does not respond to medical treatment, your healthcare provider may then order X-rays and other tests. Home care The following guidelines will help you care for your injury at home: When in bed, try to find a comfortable position. A firm mattress is best. Try lying flat on your back with pillows under your knees. You can also try lying on your side with your knees bent up towardyour chest and a pillow between your knees. Don't sit for long periods. Try not to take long car rides or take other trips that have you sitting for a long time. This puts more stress on the lower back than standing or walking. During the first 24 to 72 hours after an injury or flare-up, apply an ice pack to the painful area for 20 minutes. Then remove it for 20 minutes. Do this for 60 to 90 minutes, or several times a day.This will reduce swelling and pain. Be sure to wrap the ice pack in a thin towel or plastic to protect your skin. You can start with ice, then switch to heat. Heat from a hot shower, hot bath, or heating pad reduces pain and works well for muscle spasms. Put heat on the painful area for 20 minutes, then remove for 20 minutes. Do this for 60 to 90 minutes, or several times a day. Do not use a heating pad while sleeping. It can burn the skin. You can alternate the ice and heat. Talk with your healthcare provider to find out the best treatment or therapy for your back pain. Therapeutic massage will help relax the back muscles without stretching them. Be aware of safe lifting methods. Do not lift anything over 15 pounds until all of the pain is gone. Medicines Talk to your healthcare provider before using medicines, especially if you have other health problems or are taking other medicines. You may use acetaminophen or ibuprofen to control pain, unless another pain medicine was prescribed. If you have chronic conditions like diabetes, liver or kidney disease, stomach ulcers, or gastrointestinal bleeding, or are taking blood-thinner medicines, talk with your doctor before taking any medicines. Be careful if you are given prescription medicines, narcotics, or medicine for muscle spasm. They can cause drowsiness, and affect your coordination, reflexes, and judgment. Do not drive or operate heavy machinery when taking these types of medicines. Only take pain medicine as prescribed by your healthcare provider. Follow-up care Follow up with your healthcare provider, or as advised. You may need physical therapy or more testsif your symptoms get worse. If you had X-rays your healthcare provider may be checking for any broken bones, breaks, or fractures. Bruises and sprains can sometimes hurt as much as a fracture. These injuries can take time to heal completely. If your symptoms don t improve or they get worse, talk with your healthcare provider.You may need a repeat X-ray or other tests. Call 911 Call 911 if any of the following occur: Trouble breathing Confused Very drowsy or trouble awakening Fainting or loss of consciousness Rapid or very slow heart rate Loss of bowel or bladder control When to seek medical advice Call your healthcare provider right away if any of the following occur: Pain gets worse or spreads to your arms or legs Weakness or numbness in one or both arms or legs Numbness in the groin or genital area [id number] [employer]. [address] [place] [address]. All rights reserved. This information is not intended as a substitute for professional medical care. Always follow yourhealthcare professional's instructions. Follow Up Care 09/10/2021 11:27:40 With:EUGENIO MAYEN DO Address: [phone] When:2-4 days [facility] 11-07-2021 Hospital Discharge instructions Patient Education 08/28/2021 11:48:17 Sciatica Sciatica Sciatica is a condition that causes pain in the lower back that spreads down into the buttock, hip,and leg. Sometimes the leg pain can happen without any back pain. Sciatica happens when a spinal nerve is irritated or has pressure put on it as comes out of the spinal canal in the lower back. This most often happens when a bulge or rupture of a nearby spinal disk presses on the nerve. Sciatica can also be caused by a narrowing of the spinal canal (spinal stenosis) or spasm of the muscle in the buttocks that the sciatic nerve passes through (pyriform muscle). Sciatica is also called lumbar radiculopathy. Sciatica may begin after a sudden twisting or bending force, such as in a car accident. Or it can happen after a simple awkward movement. In either case, muscle spasm often also happens. Muscle spasmmakes the pain worse. A healthcare provider makes a diagnosis of sciatica from your symptoms and a physical exam. Unless you had an injury from a car accident or fall, you usually won t have X-rays taken at this time. This is because the nerves and disks in your back can t be seen on an X-ray. If the provider sees signsof a compressed nerve, you will need to schedule an MRI scan as an outpatient. Signs of a compressed nerve include loss of strength in a leg. Most sciatica gets better with medicine, exercise, and physical therapy. If your symptoms continue after at least 3 months of medical treatment, you may need surgery or injections to your lower back. Home care Follow these tips when caring for yourself at home: You may need to stay in bed the first few days. But as soon as possible, begin sitting up or walking. This will help you avoid problems that come from staying in bed for long periods. When in bed, try to find a position that is comfortable. A firm mattress is best. Try lying flat onyour back with pillows under your knees. You can also try lying on your side with your knees bent up toward your chest and a pillow between your knees. Avoid sitting for long periods. This puts more stress on your lower back than standing or walking. Use heat from a hot shower, hot bath, or heating pad to help ease pain. Massage can also help. You can also try using an ice pack. You can make your own ice pack by putting ice cubes in a plastic bag. Wrap the bag in a thin towel. Try both heat and cold to see which works best. Use the method that feels best for 20 minutes several times a day. You may use acetaminophen or ibuprofen to ease pain, unless another pain medicine was prescribed. Note: If you have chronic liver or kidney disease, talk with your healthcare provider before taking these medicines. Also talk with your provider if you ve had a stomach ulcer or gastrointestinal bleeding. Use safe lifting methods. Don t lift anything heavier than 15 pounds until all of the pain is gone. Follow-up care Follow up with your healthcare provider, or as advised. You may need physical therapy or additionaltests. If X-rays were taken, a radiologist will look at them. You will be told of any new findings that may affect your care. When to seek medical advice Call your healthcare provider right away if any of these occur: Pain gets worse even after taking prescribed medicine Weakness or numbness in 1 or both legs or hips Numbness in your groin or genital area You can t control your bowel or bladder Fever Redness or swelling over your back or spine [id number] [employer]. [address] [place] [address]. All rights reserved. This information is not intended as a substitute for professional medical care. Always follow yourhealthcare professional's instructions. 08/28/2021 11:48:11 Back Pain (Acute or Chronic) Back Pain (Acute or Chronic) Back pain is one of the most common problems. The good news is that most people feel better in 1 to2 weeks, and most of the rest in 1 to 2 months. Most people can remain active. People who have pain describe it differently not everyone is the same. The pain can be sharp, stabbing, shooting, aching, cramping or burning. Movement, standing, bending, lifting, sitting, or walking may worsen pain. It can be localized to one spot or area, or it can be more generalized. It can spread or radiate upwards, to the front, or go down your arms or legs (sciatica). It can cause muscle spasm. Most of the time, mechanical problems with the muscles or spine cause the pain. Mechanical problemsare usually caused by an injury to the muscles or ligaments. While illness can cause back pain, it is usually not caused by a serious illness. Mechanical problems include: Physical activity such as sports, exercise, work, or normal activity Overexertion, lifting, pushing, pulling incorrectly or too aggressively Sudden twisting, bending, or stretching from an accident, or accidental movement Poor posture Stretching or moving wrong, without noticing pain at the time Poor coordination, lack of regular exercise (check with your doctor about this) Spinal disc disease or arthritis Stress Pain can also be related to , or illness like appendicitis, bladder or kidney infections, pelvic infections, and many other things. Acute back pain usually gets better in 1 to 2 weeks. Back pain related to disk disease, arthritis in the spinal joints or spinal stenosis (narrowing of the spinal canal) can become chronic and last for months or years. Unless you had a physical injury (for example, a car accident or fall) X-rays are usually not needed for the initial evaluation of back pain. If pain continues and does not respond to medical treatment, X-rays and other tests may be needed. Home care Try these home care recommendations: When in bed, try to find a position of comfort. A firm mattress is best. Try lying flat on your back with pillows under your knees. You can also try lying on your side with your knees bent up towardsyour chest and a pillow between your knees. At first, do not try to stretch out the sore spots. If there is a strain, it is not like the good soreness you get after exercising without an injury. In this case, stretching may make it worse. Don't sit for long periods, as in a long car ride or during other travel. This puts more stress on the lower back than standing or walking. During the first 24 to 72 hours after an acute injury or flare up of chronic back pain, apply an ice pack to the painful area for 20 minutes and then remove it for 20 minutes. Do this over a period of 60 to 90 minutes or several times a day. This will reduce swelling and pain. Wrap the ice pack in a thin towel or plastic to protect your skin. You can start with ice, then switch to heat. Heat (hot shower, hot bath, or heating pad) reduces pain and works well for muscle spasms. Heat can be applied to the painful area for 20 minutes then remove it for 20 minutes. Do this over a period of 60 to 90 minutes or several times a day. Do not sleep on a heating pad. It can lead to skin onofre or tissue damage. You can alternate ice and heat therapy. Talk with your doctor about the best treatment for your back pain. Therapeutic massage can help relax the back muscles without stretching them. Be aware of safe lifting methods and do not lift anything without stretching first. Medicines Talk to your doctor before using medicine, especially if you have other medical problems or are taking other medicines. You may use [id number]-[id number]-[id number] medicine as directed on the bottle to control pain, unless another pain medicine was prescribed. If you have chronic conditions like diabetes, liver or kidney disease, stomach ulcers, or gastrointestinal bleeding, or are taking blood thinners, talk to your doctor beforetaking any medicine. Be careful if you are given a prescription medicines, narcotics, or medicine for muscle spasms. They can cause drowsiness, affect your coordination, reflexes, and judgement. Do not drive or operate heavy machinery. Follow-up care Follow up with your healthcare provider, or as advised. A radiologist will review any X-rays that were taken. Your provide will notify you of any new findings that may affect your care. Call 911 Call 911 if any of the following occur: Trouble breathing Confusion Very drowsy or trouble awakening Fainting or loss of consciousness Rapid or very slow heart rate Loss of bowel or bladder control When to seek medical advice Call your healthcare provider right away if any of these occur: Pain becomes worse or spreads to your legs Weakness or numbness in one or both legs Numbness in the groin or genital area [id number] [employer]. [address] [place] [address]. All rights reserved. This information is not intended as a substitute for professional medical care. Always follow yourhealthcare professional's instructions. Follow Up Care 08/28/2021 11:25:26 With:EUGENIO MAYEN Address:Unknown When:2-4 days Comments:Schedule an appointment for follow-up if symptoms or not improving.Position of comfort, limit activity as tolerated.Use ice or cold compresses to painful areas for the next 2 days and warm, moist heat thereafter.Use Tylenol or Advil for pain as needed.Use Lidoderm patches for pain and cyclobenzaprine for muscle pain and spasm as prescribed.Return to the ED if symptoms worsen. [facility] 03-12-2021 Evaluation + Plan note Future Scheduled Tests Laboratory* Lipid Profile 12/31/20 Radiology* XR Shoulder Minimum 2 Views Left 06/21/21 * XR Shoulder Minimum 2 Views Right 06/21/21 * MRI Spine Lumbar w/o Contrast 02/04/21 [facility] Discharge summary Author Micheal Sun [facility] 2024 10:07am Note Date/Time 2024 8:5 1am [facility] Medical Records Department [address] [place] [address] Emergency Department Summary 02/06/24 MR#: [id number] Acct: [id number] Name: WINSTON MARI Rep #:[id number] : [id number] From: Micheal Sun MD PCP: Dr. Eugenio Mayen, DO Status:REG ER Location: ED HPI History of Present Illness Chief Complaint: Allergic Reaction Narrative Narrative: 69-year-old male past medical history of chronic back pain presents with bee sting to his left heel. He states that yesterday they were cleaning the house and had the doors open. When he got out of bed and stepped down this morning, bee stung him in the left heel. He complains of localized pain, redness, and swelling to his left heel. It is worse with weightbearing. He states that he may have been stung by a bee years ago, and is unsure if he is had anaphylactic reaction to it. According to triage note, he is unsure as to what an epinephrine pen is. [facility] Medical History Epilepsy Hemorrhoid High cholesterol Sciatica Home Medications omeprazole 20 mg capsule,delayed release 40 mg PO DAILY 03/23/22 [History Last Taken Unknown] gabapentin 300 mg capsule 300 mg PO 4X/DAY 04/02/22 [History Last Taken Unknown] hydrocortisone acetate 25 mg rectal suppository (Anusol-HC) 25 mg VT QHS #12 ea 04/27/22 [Rx Last Taken Unknown] polyethylene glycol 3350 17 gram/dose oral powder (Miralax) 17 g PO DAILY #119 grams 04/27/22 [Rx Last Taken Unknown] atorvastatin 40 mg tablet (Lipitor) 40 mg PO QHS 01/13/23 [History Last Taken Unknown] polyethylene glycol 3350 17 gram/dose oral powder (ClearLax) 17 g PO DAILY #119 grams 05/31/23 [Rx Last Taken Unknown] cyclobenzaprine 10 mg tablet 10 mg PO TID PRN Muscle Spasm #20 TABLETS 08/09/23 [Rx Last Taken Unknown] acetaminophen 500 mg tablet mg 10/09/23 [History Last Taken Unknown] clopidogrel 75 mg tablet mg 10/09/23 [History Last Taken Unknown] duloxetine 30 mg capsule,delayed release mg PO 10/09/23 [History Last Taken Unknown] oxycodone 10 mg tablet mg 10/09/23 [History Last Taken Unknown] tamsulosin 0.4 mg capsule mg PO 10/09/23 [History Last Taken Unknown] diphenhydramine HCl 25 mg capsule (Benadryl) 25 mg PO TID PRN allergic reaction #20 caps 02/06/24 [Rx Last Taken Unknown] Allergy/AdvReac Type Severity Reaction Status Date / Time adhesive tape [tape] AdvReac Rash Verified 02/06/24 08:35 hydrocodone [From [place]] AdvReac Upset Verified 02/06/24 08:35 Stomach ibuprofen AdvReac Upset Verified 02/06/24 08:35 Stomach ketorolac [From Toradol] AdvReac Rash Verified 02/06/24 08:35 naproxen AdvReac Rash Verified 02/06/24 08:35 tramadol AdvReac Upset Verified 02/06/24 08:35 Stomach Surgical History S/P clamping of cerebral aneurysm Social History household members: significant other Smoking Status: Former smoker alcohol intake: former substance use type: does not use ROS ROS ED ROS Narrative Constitutional: No fever, no chills. HEENT: No sore throat. No neck pain. No loss of vision. No rhinorrhea. Cardiovascular: No chest pain. No palpitations. No pedal edema. Respiratory: No cough, no shortness of breath. Abdominal: No abdominal pain. No nausea. No vomiting. Genitourinary: No dysuria. No hematuria. Musculoskeletal: No myalgias. No arthralgias. Pain, redness, and swelling to left heel. Neurologic: No headaches. No dizziness. No lightheadedness. Skin: No rash. No change in color. Psychiatric: No depression. No anxiety. EXAM Physical Exam Narrative Exam Narrative: Afebrile. Vital signs noted. Nontoxic-appearing. HEENT: Normocephalic. Atraumatic. PERRL, EOMI. Neck soft and supple. No pointtenderness or step off. Airway patent. No drooling or trismus. No stridor. Cardiovascular: Regular rate and rhythm. No murmurs, rubs, or gallops appreciated. Respiratory: No tachypnea. Lungs clear to auscultation bilaterally. Gastrointestinal: Abdomen soft, nontender, with normoactive bowel sounds. No rebound or guarding. Neurological: Awake. Alert. Nonfocal, nonlateralizing. Skin: No rash. Normal color except mild erythema left heel diffusely. No pallor. Musculoskeletal: No pedal edema. Full range of motion extremities. Positive tenderness to palpation left heel. Positive dry skin. Const Vital Signs: 02/06/24 08:36 Temperature 97.6 F L Temperature Source Temporal Pulse Rate 81 Respiratory Rate 18 Blood Pressure 114/85 H Blood Pressure Mean 94 Pulse Ox 98 Oxygen Delivery Method Room Air MDM MDM MDM Narrative Medical decision making narrative: Patient's pulse ox is 98% on room air. He is not tachycardic. Additionally, heis not hypotensive. I do not feel he is having anaphylaxis to a bee sting. Also, I do not think this is cellulitis. Probably more of a localized reaction. Treatment be symptomatic. He was given Benadryl here and Tylenol as he is allergic to NSAIDs and some pain medications. I do not feel narcotic pain medication is indicated for his localized allergic reaction. Additionally, I donot feel that he needs an epinephrine pen or epinephrine here currently. He wasgiven an ice pack for comfort. Upon repeat examination at approximately 10:05 AM, there is no sign of anaphylaxis. Once again I do not feel that he requires an epinephrine pen. He will continue ice and elevation of his left foot at home. I did write him a prescription for Benadryl to take up to 3 times a day for the localized swelling. He will continue his home pain medications. I feel he can be discharged to follow-up. Return instructions reviewed. Disposition is discharged home in stable condition. Discharge Plan Triage Chief Complaint: Allergic Reaction ED Provider: Micheal Sun Dx/Rx/DC Orders Clinical Impression: Local reaction to bee sting, Pain of left heel Instructions: ED Insect Sting, Local Reaction Prescriptions: New diphenhydramine HCl [Benadryl] 25 mg capsule 25 mg PO TID PRN (Reason: allergic reaction) Qty: 20 0RF No Action omeprazole 20 mg capsule,delayed release(DR/EC) 40 mg PO DAILY Patient Comments: TAKE 1 CAPSULE BY MOUTH EVERY DAY IN THE MORNING BEFORE BREAKFAST gabapentin 300 mg capsule 300 mg PO 4X/DAY polyethylene glycol 3350 [Miralax] 17 gram/dose powder 17 g PO DAILY Qty: 119 0RF Rx Instructions: 1 cap per day hydrocortisone acetate [Anusol-HC] 25 mg suppository 25 mg VT QHS Qty: 12 0RF atorvastatin [Lipitor] 40 mg Tablet 40 mg PO QHS polyethylene glycol 3350 [ClearLax] 17 gram/dose powder 17 g PO DAILY Qty: 119 0RF cyclobenzaprine 10 mg tablet 10 mg PO TID PRN (Reason: Muscle Spasm) Qty: 20 0RF clopidogrel 75 mg tablet Patient Comments: TAKE 1 TABLET BY MOUTH EVERY DAY acetaminophen 500 mg tablet tamsulosin 0.4 mg capsule PO Patient Comments: TAKE 1 CAPSULE BY MOUTH EVERY DAY FOR 90 DAY(S) duloxetine 30 mg capsule,delayed release(DR/EC) PO Patient Comments: TAKE 1 CAPSULE BY MOUTH TWICE A DAY oxycodone 10 mg tablet Patient Comments: TAKE 1 TABLET BY MOUTH EVERY 6 HOURS NEEDED FOR PAIN FOR 30 DAYS Primary Care Provider: Eugenio Mayen Referrals: Eugenio Mayen DO [Primary Care Provider] - 1 Week if not improving Activity Restrictions/Additional Instructions: Ice to affected area 3 times a day for approximately 10 to 15 minutes each. Elevate your left foot when possible. Disposition Disposition: Home, Self Care What to do if you have Problems For any increased pain, shortness of breath, bleeding, nausea or vomiting, chestpain, or any unexpected problems, contact your Primary Care Provider. Call [facility] ([phone]) or report to the closest Emergency Room. Call 911 if necessary. 02/06/24 1007 <Electronically signed by Micheal Sun MD> Cosigner Signature (if applicable): CC: Dr. Eugenio Mayen DO ~ Signed [facility] Work Phone: Evaluation + Plan note Future Appointments Appointment Date:01/17/2022 10:00:00 AM Scheduled Provider:EUGENIO MAYEN DO Location:[facility] Appointment Type: OV Future Scheduled Tests Laboratory* Basic Metabolic Panel 12/07/21 * A1C Hemoglobin 12/07/21 * Lipid Profile 12/07/21 Radiology* XR Clavicle Right 12/07/21 * XR Scapula Right 12/07/21 * XR Shoulder Minimum 2 Views Left 06/21/21 * XR Shoulder Minimum 2 Views Right 12/07/21 * XR Shoulder Minimum 2 Views Right 06/21/21 * MRI Spine Lumbar w/o Contrast 02/04/21 * XR Spine Lumbar AP/LAT 12/07/21 [facility] Evaluation + Plan note Future Appointments Appointment Date:02/20/2022 04:30:00 PM Scheduled Provider:EUGENIO MAYEN DO Location:[facility] Appointment Type:PC OV Follow Up Future Scheduled Tests Laboratory* Basic Metabolic Panel 12/07/21 * A1C Hemoglobin 12/07/21 * Lipid Profile 12/07/21 Radiology* XR Clavicle Right 12/07/21 * XR Scapula Right 12/07/21 * XR Shoulder Minimum 2 Views Left 06/21/21 * XR Shoulder Minimum 2 Views Right 12/07/21 * XR Shoulder Minimum 2 Views Right 06/21/21 * MRI Spine Lumbar w/ + w/o Contrast 02/16/22 * XR Spine Lumbar AP/LAT 12/07/21 [facility] Evaluation + Plan note Future Appointments Appointment Date:05/29/2022 11:30:00 AM Scheduled Provider:EUGENIO MAYEN DO [facility] Appointment Type:PC OV Future Scheduled Tests Laboratory* Basic Metabolic Panel 12/07/21 * A1C Hemoglobin 12/07/21 * Lipid Profile 12/07/21 Radiology* CT Thorax w/o Contrast 02/20/22 * XR Clavicle Right 12/07/21 * XR Scapula Right 12/07/21 * XR Shoulder Minimum 2 Views Left 06/21/21 * XR Shoulder Minimum 2 Views Right 12/07/21 * XR Shoulder Minimum 2 Views Right 06/21/21 * MRI Spine Lumbar w/ + w/o Contrast 02/16/22 * XR Spine Lumbar AP/LAT 12/07/21 [facility] Evaluation + Plan note Future Appointments Appointment Date:03/07/2022 11:15:00 AM Scheduled Provider:MARCELL RAMSEY MD Location:[facility] PM Appointment Type:PM ANTIQUE REPAIRER Appointment Date:05/29/2022 11:30:00 AM Scheduled Provider:EUGENIO MAYEN DO [facility] Appointment Type:PC OV Future Scheduled Tests Laboratory* Basic Metabolic Panel 12/07/21 * A1C Hemoglobin 12/07/21 * Lipid Profile 12/07/21 Radiology* CT Thorax w/o Contrast 02/20/22 * XR Clavicle Right 12/07/21 * XR Scapula Right 12/07/21 * XR Shoulder Minimum 2 Views Left 06/21/21 * XR Shoulder Minimum 2 Views Right 12/07/21 * XR Shoulder Minimum 2 Views Right 06/21/21 * MRI Spine Lumbar w/ + w/o Contrast 02/16/22 * XR Spine Lumbar AP/LAT 12/07/21 [facility] Evaluation + Plan note Future Appointments Appointment Date:05/29/2022 11:30:00 AM Scheduled Provider:EUGENIO MAYEN DO [facility] Appointment Type:PC OV Future Scheduled Tests Laboratory* Basic Metabolic Panel 12/07/21 * A1C Hemoglobin 12/07/21 * Lipid Profile 12/07/21 Radiology* CT Thorax w/o Contrast 03/08/22 * CT Thorax w/o Contrast 02/20/22 * XR Clavicle Right 12/07/21 * XR Scapula Right 12/07/21 * XR Shoulder Minimum 2 Views Left 06/21/21 * XR Shoulder Minimum 2 Views Right 12/07/21 * XR Shoulder Minimum 2 Views Right 06/21/21 * MRI Spine Lumbar w/ + w/o Contrast 02/16/22 * XR Spine Lumbar AP/LAT 12/07/21 [facility] Evaluation + Plan note Future Appointments Appointment Date:04/12/2022 08:30:00 AM Scheduled Provider:PATRICIA CORTÉS MD Location:[facility] Appointment Type:WALTER ANTIQUE REPAIRER Appointment Date:05/29/2022 11:30:00 AM Scheduled Provider:EUGENIO MAYEN DO [facility] Appointment Type:PC OV Future Scheduled Tests Laboratory* Basic Metabolic Panel 12/07/21 * A1C Hemoglobin 12/07/21 * Lipid Profile 12/07/21 Radiology* XR Foot Minimum 3 Views Left 03/30/22 * XR Clavicle Right 12/07/21 * XR Scapula Right 12/07/21 * XR Shoulder Minimum 2 Views Left 06/21/21 * XR Shoulder Minimum 2 Views Right 12/07/21 * XR Shoulder Minimum 2 Views Right 06/21/21 * MRI Spine Lumbar w/ + w/o Contrast 02/16/22 * XR Spine Lumbar AP/LAT 12/07/21 [facility] Evaluation + Plan note Future Appointments Appointment Date:07/27/2022 02:00:00 PM Scheduled Provider:EUGENIO MAYEN DO Location[facility] Appointment Type:PC OV Follow Up Future Scheduled Tests Laboratory* Basic Metabolic Panel 12/07/21 * A1C Hemoglobin 12/07/21 * Complete Blood Count 04/28/22 * Lipid Profile 12/07/21 Radiology* XR Foot Minimum 3 Views Left 03/30/22 * XR Clavicle Right 12/07/21 * XR Scapula Right 12/07/21 * XR Shoulder Minimum 2 Views Right 12/07/21 * MRI Spine Lumbar w/ + w/o Contrast 02/16/22 * XR Spine Lumbar AP/LAT 12/07/21 [facility] Evaluation + Plan note Future Appointments Appointment Date:09/19/2022 01:30:00 PM Scheduled Provider: Location:[facility] Appointment Type:US Renal Appointment Date:09/22/2022 02:00:00 PM Scheduled Provider:EUGENIO MAYEN DO Location:[facility] Appointment Type:PC OV Future Scheduled Tests Laboratory* Basic Metabolic Panel 12/07/21 * A1C Hemoglobin 12/07/21 * Complete Blood Count 04/28/22 * Lipid Profile 12/07/21 Radiology* XR Foot Minimum 3 Views Left 03/30/22 * XR Clavicle Right 12/07/21 * XR Elbow Minimum 3 Views Right 07/27/22 * XR Scapula Right 12/07/21 * XR Shoulder Minimum 2 Views Right 12/07/21 * MRI Spine Lumbar w/ + w/o Contrast 02/16/22 * US Renal 08/30/22 * XR Spine Lumbar AP/LAT 12/07/21 [facility] Evaluation + Plan note Future Appointments Appointment Date:09/22/2022 02:00:00 PM Scheduled Provider:EUGENIO MAYEN DO Location[facility] Appointment Type:PC OV Future Scheduled Tests Laboratory* Basic Metabolic Panel 12/07/21 * A1C Hemoglobin 12/07/21 * Complete Blood Count 04/28/22 * Lipid Profile 12/07/21 Radiology* XR Foot Minimum 3 Views Left 03/30/22 * XR Clavicle Right 12/07/21 * XR Elbow Minimum 3 Views Right 07/27/22 * XR Scapula Right 12/07/21 * XR Shoulder Minimum 2 Views Right 12/07/21 * MRI Spine Lumbar w/ + w/o Contrast 02/16/22 * XR Spine Lumbar AP/LAT 12/07/21 [facility] Evaluation + Plan note Future Appointments Appointment Date:10/27/2022 02:30:00 PM Scheduled Provider:EUGENIO MAYEN DO Location[facility] Appointment Type:PC OV Future Scheduled Tests Laboratory* Basic Metabolic Panel 12/07/21 * A1C Hemoglobin 12/07/21 * Complete Blood Count 04/28/22 * Lipid Profile 12/07/21 Radiology* XR Foot Minimum 3 Views Left 03/30/22 * XR Clavicle Right 12/07/21 * XR Elbow Minimum 3 Views Right 07/27/22 * XR Scapula Right 12/07/21 * XR Shoulder Minimum 2 Views Right 12/07/21 * MRI Spine Lumbar w/ + w/o Contrast 02/16/22 * XR Spine Lumbar AP/LAT 12/07/21 [facility] Evaluation + Plan note Future Appointments Appointment Date:12/06/2022 01:30:00 PM Scheduled Provider:EUGENIO MAYEN DO Location[facility] Appointment Type:PC OV Appointment Date:12/13/2022 02:30:00 PM Scheduled Provider: Location:[facility] Appointment Type:PF PFT w/[place] Future Scheduled Tests Laboratory* Basic Metabolic Panel 12/07/21 * Urinalysis 10/26/22 * A1C Hemoglobin 12/07/21 * Complete Blood Count 04/28/22 * Lipid Profile 12/07/21 Radiology* XR Foot Minimum 3 Views Left 03/30/22 * XR Clavicle Right 12/07/21 * XR Elbow Minimum 3 Views Right 07/27/22 * XR Scapula Right 12/07/21 * XR Shoulder Minimum 2 Views Right 12/07/21 * MRI Spine Lumbar w/ + w/o Contrast 02/16/22 * XR Spine Lumbar AP/LAT 12/07/21 [facility] evaluation + Plan note Future Appointments Appointment Date:12/15/2022 01:30:00 PM Scheduled Provider: Location:[facility] Appointment Type:BD Bone Density DEXA Axial Skeleton Appointment Date:01/04/2023 02:00:00 PM Scheduled Provider:EUGENIO MAYEN DO Location:[facility] Appointment Type:PC OV Future Scheduled Tests Laboratory* Urinalysis 10/26/22 * Complete Blood Count 04/28/22 Radiology* XR Foot Minimum 3 Views Left 03/30/22 * BD Bone Density DEXA Axial Skeleton 12/15/22 * XR Elbow Minimum 3 Views Right 07/27/22 * MRI Spine Lumbar w/ + w/o Contrast 02/16/22 [facility] evaluation + Plan note Future Appointments Appointment Date:01/04/2023 02:00:00 PM Scheduled Provider:EUGENIO MAYEN DO Location:[facility] Appointment Type:PC OV Future Scheduled Tests Laboratory* Urinalysis 10/26/22 * Complete Blood Count 04/28/22 Radiology* XR Foot Minimum 3 Views Left 03/30/22 * XR Elbow Minimum 3 Views Right 07/27/22 * MRI Spine Lumbar w/ + w/o Contrast 02/16/22 [facility] Evaluation + Plan note Future Appointments Appointment Date:08/15/2023 01:30:00 PM Scheduled Provider: Location:[facility] Appointment Type:GI OV Consult Appointment Date:08/23/2023 01:30:00 PM Scheduled Provider:EUGENIO MAYEN DO Location[facility] Appointment Type:PC OV Future Scheduled Tests Laboratory* Ferritin 06/11/23 * Hepatic Function Panel 02/28/23 * Magnesium Level 02/28/23 * Prostate Specific Antigen 07/23/23 * Rubella Antibody 07/23/23 * Urinalysis 10/26/22 * Complete Blood Count 02/28/23 * Complete Blood Count 06/11/23 * Complete Blood Count 07/23/23 * Lipid Profile 02/28/23 * Lipid Profile 07/23/23 * Hepatitis C Antibody IgG 07/23/23 * Iron Studies 06/11/23 * Mumps Antibody 07/23/23 * Renal Function Panel 02/28/23 * Rubeola IgG Antibody 07/23/23 * Varicella Zoster Antibody 07/23/23 * Vitamin D Level 02/28/23 * Complete Metabolic Panel 06/11/23 * Complete Metabolic Panel 07/23/23 Radiology* CT Thorax w/o Contrast 08/10/23 [facility] Evaluation + Plan note Future Appointments Appointment Date:12/17/2023 02:00:00 PM Scheduled Provider:EUGENIO MAYEN DO Location:[facility] Appointment Type: OV Diagnostic Tests Pending * Varicella Zoster Antibody 12/07/23 * Rubella Antibody 12/07/23 * Rubeola IgG Antibody 12/07/23 * Mumps Antibody 12/07/23 Future Scheduled Tests Radiology* NM Myocardial Spect Rest/Stress 10/10/23 [facility] Evaluation + Plan note Future Appointments Appointment Date:10/02/2024 10:00:00 AM Scheduled Provider:EUGENIO MAYEN DO Location:[facility] Appointment Type:PC OV Appointment Date:11/06/2024 10:30:00 AM Scheduled Provider:EUGENIO MAYEN DO Location:[facility] Appointment Type: OV Future Scheduled Tests Laboratory* Urine Culture 07/02/24 Radiology* CT Thorax w/o Contrast 12/01/24 * NM Myocardial Spect Rest/Stress 10/10/23 [facility] Evaluation + Plan note Future Appointments Appointment Date:12/03/2024 11:00:00 AM Scheduled Provider:EUGENIO MAYEN DO Location[facility] Appointment Type:PC OV Appointment Date:12/18/2024 09:00:00 PM Scheduled Provider: Location:[facility] Appointment Type:PC Nurse Lab Appointment Date:01/01/2025 10:00:00 AM Scheduled Provider:EUGENIO MAYEN DO Location:[facility] Appointment Type:PC Wellness Annual Future Scheduled Tests Laboratory* Ferritin 12/31/24 * Prostate Specific Antigen 12/31/24 * Urine Culture 07/02/24 * A1C Hemoglobin 12/31/24 * Complete Blood Count 12/31/24 * Lipid Profile 12/31/24 * Vitamin D Level 12/31/24 * Complete Metabolic Panel 12/31/24 Radiology* CT Thorax w/o Contrast 12/01/24 [facility] Evaluation + Plan note Future Appointments Appointment Date:05/20/2025 08:15:00 AM Scheduled Provider: Location:[facility] Appointment Type:NM Myocardial Spect Rest/Stress Shabana Appointment Date:05/20/2025 02:00:00 PM Scheduled Provider:EUGENIO MAYEN DO Location:[facility] Appointment Type: Wellness Annual Appointment Date:08/05/2025 10:30:00 AM Scheduled Provider:EUGENIO MAYEN DO Location:[facility] Appointment Type: OV Future Scheduled Tests Laboratory* Urine Culture 07/02/24 Radiology* CT Thorax w/o Contrast 01/15/25 * MRI Shoulder w/o Contrast Left 04/02/25 * NM Myocardial Spect Rest/Stress 05/20/25 [facility] Evaluation noteNo assessment information available [facility] Work Phone: Evaluiypim note* Diagnosis Acute sciatica- Primary documented in this encounter [facility] Work Phone: Evaluation note* Diagnosis Anal fissure- Primary documented in this encounter [facility] note* Diagnosis Other fracture of unspecified lumbar vertebra, initial encounter for closed fracture (HCC)- Primary Lumbar burst fracture, sequela documented in this encounter [facility] note* Diagnosis Chronic pain syndrome- Primary documented in this encounter [facility] note* Diagnosis Chest pain, unspecified type- Primary Pain of right lower extremity Acute right-sided low back pain with right-sided sciatica documented in this encounter [facility] course Narrative No data available for this section [facility] Hospital Discharge instructions No data available for this section [facility] Hospital Discharge instructions Additional Instructions Please follow-up with your PCP and return for any worsening of your symptoms. Begin taking MiraLAX daily.[facility] Work Phone: Hospital Discharge instructions Additional Instructions Continue your oxycodone as previously prescribed to take for pain.[facility] Work Phone: Hospital Discharge instructions Additional Instructions Ice to affected area 3 times a day for approximately 10 to 15 minutes each. Elevate your left foot when possible.[facility] Work Phone: Hospital Discharge instructions Additional Instructions CT scan negative for kidney stones or any acute process. Your labs are stable urine negative for infection. Use Tylenol up to 1 g every 6 hours for pain. Use Valium as needed for concerns for muscle strain. Constipation read on your CT however on my review no significant constipation. Continue oral fluids for hydration. Follow-up with your doctor.[facility] Work Phone: Progress note No data available for this section [facility] Reason for referral (narrative)No reason for referral [facility]: Summary Purpose Family History Unknown Family Member Name Dates Details : Mother Status:Active Alive and well: Father, Chil d, Sibling Comments:No family history o f colon cancer; Status:Active Relationship Condition Age at Onset Recorded Date/T nelly Not Specified Diabetes mellitus Unknown Cardiac disease Unknown Malignant neoplasm Unknown Advance Directives Advance Directive Response Recorded Date/ Time Living Will No February 27, 2022 7: 05pm Power of Program Therapist No February 27, 2022 7:05pm Advance Directive Response Recorded Date/ Time Living Will No March 07, 2022 1 :31pm Power of Program Therapist No March 07, 2022 1:31pm Advance Directive Response Recorded Date/ Time Living Will No March 09, 2022 1 0:31am Power of Program Therapist No March 09, 2022 10:31am Advance Directive Response Recorded Date/ Time Living Will No March 23, 2022 1 1:30pm Power of Program Therapist No Yisel 2nd, 2022 11:30pm Advance Directive Response Recorded Date/ Time Living Will No April 02, 2022 9:47pm Power of Program Therapist No April 02 9:47pm Advance Directive Response Recorded Date/ Time Living Will No April 14, 2022 5:45pm Power of Program Therapist No April 14 5:45pm Advance Directive Response Recorded Date/ Time Living Will No April 16, 2022 2:51pm Power of Program Therapist No April 16 2:51pm Advance Directive Response Recorded Date/ Time Name of Medical Power of Program Therapist tee Antunez April 24, 2022 6:31pm Living Will Yes April 24, 2022 6 :31pm Power of Program Therapist Yes April 24, 2022 6:31pm Advance Directive Response Recorded Date/ Time Name of Medical Power of Program Therapist tee Antunez April 24, 2022 6:31pm Living Will No April 27, 2022 1 1:27am Power of Program Therapist No April 27, 2022 11:27am Advance Directive Response Recorded Date/ Time Living Will No September 16, 2 022 11:06am Power of Program Therapist No September 16, 2022 11:06am Advance Directive Response Recorded Date/ Time Living Will No January 13, 2023 9:03pm Power of Program Therapist No January 13 9:03pm Advance Directive Response Recorded Date/ Time Living Will No February 11, 2023 2:26pm Power of Program Therapist No February 11 2:26pm Documents on File Type Date Recorded Patient Case Management Assistant Expl anation Advance Directive(s) 02/12/2023 11:06 AM Documents on File Type Date Recorded Patient Case Management Assistant Expl anation Advance Directive(s) 02/12/2023 11:06 AM Advance Directive Response Recorded Date/ Time Living Will No May 31 10:26am Power of Program Therapist No May 31 2 023 10:26am Advance Directive Response Recorded Date/ Time Living Will No August 09 2:38pm Power of Program Therapist No August 09, 2023 2:38pm Advance Directive Response Recorded Date/ Time Living Will No October 09, 2 023 1:19pm Power of Program Therapist No October 09, 2023 1:19pm Advance Directive Response Recorded Date/ Time Living Will No 2024 8:35am Power of Program Therapist No February 05 8:35am Advance Directive Response Recorded Date/ Time Living Will No November 25 11:51am Power of Program Therapist No November 25, 2024 11:51am Living Will No November 05 3:44pm Power of Program Therapist No November 05, 2024 3:44pm Living Will No January 01, 2025 2:17pm Power of Program Therapist No January 01 2:17pm Advance Directive Response Recorded Date/ Time Living Will No November 25 11:51am Power of Program Therapist No November 25, 2024 11:51am Living Will No January 03, 2025 4:51pm Power of Program Therapist No January 03 4:51pm Living Will No November 05 3:44pm Power of Program Therapist No November 05, 2024 3:44pm Living Will No January 01, 2025 2:17pm Power of Program Therapist No January 01 2:17pm Advance Directive Response Recorded Date/ Time Living Will No November 25 11:51am Do you have a Healthcare Power of Program Therapist? No November 25, 2024 11:51am Living Will No January 03, 2025 4:51pm Do you have a Healthcare Power of Program Therapist? No January 03, 2025 4:51pm Living Will No January 01, 2025 2:17pm Do you have a Healthcare Power of Program Therapist? No January 01, 2025 2:17pm Discharge Instructions * Instructions* Nas Leong MD - 06/26/2020 Follow-up her pain management physician and her primary doctor return of his any worsening problemsat all. * Attachments The following attachments cannot be sent through Care Everywhere. * Muscle Strain (Thai) * Wrist Sprain (Thai) documented in this encounter Assessments Diagnosis Lumbar contusion, initial encounter Sprain of left wrist, initial encounter Chief Complaint and Reason for Visit Chief Complaint fall LEFT FLANK PAIN LEFT HIP/BACK PAIN Chief Complaint fall LEFT FLANK PAIN LEFT HIP/BACK PAIN BACK Chief Complaint fall LEFT FLANK PAIN LEFT HIP/BACK PAIN BACK LEFT SIDE PAIN Chief Complaint fall LEFT FLANK PAIN LEFT HIP/BACK PAIN BACK LEFT SIDE PAIN BACK Chief Complaint fall LEFT FLANK PAIN LEFT HIP/BACK PAIN BACK LEFT SIDE PAIN BACK PAIN OTHER Chief Complaint LEFT FLANK PAIN LEFT HIP/BACK PAIN BACK LEFT SIDE PAIN BACK PAIN OTHER SOB Chief Complaint LEFT FLANK PAIN LEFT HIP/BACK PAIN BACK LEFT SIDE PAIN BACK PAIN OTHER SOB GI BLEEDING Chief Complaint LEFT FLANK PAIN LEFT HIP/BACK PAIN BACK LEFT SIDE PAIN BACK PAIN OTHER SOB GI BLEEDING BACK Chief Complaint LEFT FLANK PAIN LEFT HIP/BACK PAIN BACK LEFT SIDE PAIN BACK PAIN OTHER SOB GI BLEEDING BACK PAINFUL RECTAL BLEEDING Chief Complaint ALLERGIC LT flank pain FALL Chief Complaint FALL l hip pain Chief Complaint l hip pain TRAUMA Chief Complaint TRAUMA CONSTIPATION Chief Complaint CONSTIPATION back Chief Complaint back FALL Chief Complaint FALL bee sting Chief Complaint Admit Date FALL November 05, 2024 2 :15pm LEFT SHOULDER November 13, 2024 1 :55pm LUMBAR SPINE November 18, 2024 1 :21pm Rm 2 November 18, 2024 1 :41pm HEADACHE November 25, 2024 1 0:49am LEFT SHOULDER PAIN December 08, 2024 8:14am LEFT SHOULDER December 15, 2024 10:45am Radiculopathy, lumbar region December 22, 2024 8:52am R FLANK PAIN January 01, 2025 2:0 0pm Reason for Visit Admit Date Left shoulder pain November 13, 2024 1 :55pm Degenerative disc disease, lumbar Januar y 2024 1:21pm Compression fx, lumbar spine October 1:21pm Foot drop, left November 18, 2024 1 :21pm Left rotator cuff tear December 15 10:45am Left shoulder pain December 15, 2024 10:45am Chief Complaint Admit Date FALL November 05, 2024 2 :15pm LEFT SHOULDER November 13, 2024 1 :55pm LUMBAR SPINE November 18, 2024 1 :21pm Rm 2 November 18, 2024 1 :41pm HEADACHE November 25, 2024 1 0:49am LEFT SHOULDER PAIN December 08, 2024 8:14am LEFT SHOULDER December 15, 2024 10:45am Radiculopathy, lumbar region December 22, 2024 8:52am R FLANK PAIN January 01, 2025 2:0 0pm R FLANK PAIN January 03, 2025 4:3 9pm Chief Complaint Admit Date HEADACHE November 25, 2024 1 0:49am LEFT SHOULDER PAIN February 17th, 2025 8:14am LEFT SHOULDER December 15, 2024 10:45am Radiculopathy, lumbar region December 22, 2024 8:52am R FLANK PAIN January 01, 2025 2:0 0pm R FLANK PAIN January 03, 2025 4:3 9pm LUMBAR SPINE March 19, 2025 9:49a m Room 1 March 19, 2025 10:25 am Reason for Visit Admit Date Left rotator cuff tear December 15 10:45am Left shoulder pain December 15, 2024 10:45am Reason for Referral Specialty Diagnoses / Procedures Referred By Contac t Referred To Contact MR IMAGING Diagnoses Other fracture of unspecified lumbar vertebra, initial encounter for closed fracture (HCC) Procedures MRI LUMBAR SPINE WO IVCON MRI SPINAL CANAL LUMBAR W/O CONTRAST MATERIAL Pro Almonte MD [address] [place] [address] Mr Imaging Referral ID Status Reason Start Date Expiration Date Visits Requested Visits Authorized [id number] Pending Review Auto-Generat ed Referral 03/29/2023 04/27/2024 1 1 Additional Source Comments (unrecognized sect ion and content) No Status Records FoundNo Status Records FoundNo Status Records FoundNo Status Records FoundNo Status Records FoundNo Status Records FoundNo Status Records FoundNo Status Records FoundNo Status Records FoundNo Status Records FoundNo Status Records FoundNo Status Records FoundNo Status Records FoundNo Status Records Found INFORMATION SOURCE (unrecogn ized section and content) DATE CREATED AUTHOR 04/16/2018 [facility] DATE CREATED AUTHOR AUTHOR'S ORGANIZ ATION 04/17/2018 [facility] DATE CREATED AUTHOR AUTHOR'S ORGANIZ ATION 11/03/2019 [facility] DATE CREATED AUTHOR AUTHOR'S ORGANIZ ATION 06/26/2020 [facility] DATE CREATED AUTHOR AUTHOR'S ORGANIZ ATION 01/13/2021 [employer] DATE CREATED AUTHOR AUTHOR'S ORGANIZ ATION 03/26/2022 [facility] DATE CREATED AUTHOR AUTHOR'S ORGANIZ ATION 03/27/2022 [facility] DATE CREATED AUTHOR AUTHOR'S ORGANIZ ATION 05/01/2023 [facility] DATE CREATED AUTHOR AUTHOR'S ORGANIZ ATION 05/24/2023 [facility] DATE CREATED AUTHOR AUTHOR'S ORGANIZ ATION 11/21/2023 [facility] DATE CREATED AUTHOR AUTHOR'S ORGANIZ ATION 12/12/2023 [facility] DATE CREATED AUTHOR AUTHOR'S ORGANIZ ATION 03/01/2025 [facility] DATE CREATED AUTHOR AUTHOR'S ORGANIZ ATION 03/20/2025 [facility] DATE CREATED AUTHOR AUTHOR'S ORGANIZ ATION 03/21/2025 [facility] Reason for Visit (unrecogniz ed section and content) Reason Comments Fall Back Pain Wrist Injury Leg Injury Reason Comments Back Pain Reason Comments Consult hemorrhoids Reason Comments Orders Reason Comments Appointment Reason Comments Low Back Pain Fracture - Lumbar Vertebra Reason Comments Future Appointment Left Voice Mail Reason Comments Patient Question Reason Comments New Patient Evaluation Reason Comments Chest Pain Leg Pain right Care Team (unrecognized sect ion and content) Care Team Personnel Name: ELENA LOONEY APRN-CAREER TECHNICAL COUNSELOR Position: P4 Advanced Underbaster Member Role: Pain Management Address: [address] [place] [address] [address] [facility] [place] [address] [place] Telecom: Name: EUGENIO MAYEN DO Position: P4 Physician - Primary Care Member Role: Primary Care Physician Address: [address] [place] [address] [facility] [place], [place] [id number] [place] [address] Telecom: Name: MARCELL RAMSEY MD Member Role: Pain Management Address: [address] [place] [address] [address] Telecom: Care Team Related Persons Name: LEON MAIR SR Project Mgr Relationship Specialty Start Date End Date Eugenio Mayen IV, MD [address] [place] [address] PCP - General Family Medicine 09/07/22 Team Status: Active Member Role Status Dates Pebbles Grullon ANTIQUE REPAIRER, ANTIQUE REPAIRER-C Family Provider Active Dr. Eugenio Mayen DO Primary Care Provider Active Team Status: Inactive Member Role Status Dates Dr. Eugenio Halko , DO Primary Care Provider Active Dr. Timur Morris , DO Attending Provider, Emergency Tiffanie bustos Active Team Status: Inactive Member Role Status Dates Dr. Eugenio Mayen , DO Primary Care Provider Active Dr. Mark Sweeney , DO Emergency Provider Active Team Status: Inactive Member Role Status Dates Dr. Eugenio Mayen , DO Primary Care Provider Active Dr. Mark Sweeney , DO Attending Provider, Emergency Provider Active Team Status: Inactive Member Role Status Dates Dr. Eugenio Mayen , DO Primary Care Provider Active Dr. Ken Mari MD Emergency Provider Active Project Mgr Relationship Specialty Start Date End Date Eugenio Mayen IV, DO [address] [place] [address] PCP - General Family Medicine 09/07/22 Marcell Ramsey [address] [place] [address] Referring Pain Management 01/17/23 Project Mgr Relationship Specialty Start Date End Date Eugenio Mayen IV, [address] [place] [address] PCP - General Family Medicine 09/07/22 Marcell Ramsey [address] [place] [address] Referring Pain Management 01/17/23 Project Mgr Relationship Specialty Start Date End Date Eugenio Mayen IV, DO [address] [place] [address] PCP - General Family Medicine 09/07/22 Marcell Ramsey [address] [place] [address] Referring Pain Management 01/17/23 Project Mgr Relationship Specialty Start Date End Date Eugenio Mayen IV, DO [address] [place] [address] PCP - General Family Medicine 09/07/22 Marcell Ramsey [address] [place] [address] Referring Pain Management 01/17/23 Team Status: Inactive Member Role Status Dates Dr. Eugenio Mayen DO Primary Care Provider Active Dr. Ken Mari MD Attending Provider, Emergency Pro vider Active Team Status: Inactive Member Role Status Dates Dr. Eugenio Mayen DO Primary Care Provider Active Dr. Gene Cristina MD Emergency Provider Active Project Mgr Relationship Specialty Start Date End Date Eugenio Mayen IV, DO [address] [place] [address] PCP - General Family Medicine 09/07/22 Marcell Ramsey [address] [place] [address] Referring Pain Management 01/17/23 Project Mgr Relationship Specialty Start Date End Date Eugenio Mayen IV, DO [address] [place] [address] PCP - General Family Medicine 09/07/22 Marcell Ramsey [address] [place] [address] Referring Pain Management 01/17/23 Team Status: Inactive Member Role Status Dates Dr. Eugneio Mayen DO Primary Care Provider Active Dr. Gene Cristina MD Attending Provider, Emergency Provider Active Team Status: Inactive Member Role Status Dates Dr. Eugenio Mayen DO Primary Care Provider Active Dr. Nicolás Rojas , DO Emergency Provider Active Team Status: Inactive Member Role Status Dates Dr. Eugenio Mayen DO Primary Care Provider Active Dr. Nicolás Rojas DO Attending Provider, Emergency P akash Active Team Status: Inactive Member Role Status Dates Dr. Eugenio Mayen DO Primary Care Provider Active Micheal Sun MD Emergency Provider Active Team Status: Active Member Role Status Dates Dr. Eugenio Mayen DO Primary Care Provider Active Team Status: Inactive Member Role Status Dates Dr. Eugenio Mayen DO Primary Care Provider Active Start: November 05, 2024 End: November 05, 2024 Dr. Dennis Strickland DO Attending Provider Active Start: November 05, 2024 End: November 05, 2024 Dr. Dennis Strickland DO Referring Provider Active Start: November 05, 2024 End: November 05, 2024 Dr. Dennis Strickalnd DO Emergency Provider Active Start: November 05, 2024 End: November 05, 2024 Team Status: Inactive Member Role Status Dates Dr. Eugenio Mayen DO Primary Care Provider Active Start: November 13, 2024 End: November 13, 2024 Dr. Eugenio Mayen DO Referring Provider Active Start: November 13, 2024 End: November 13, 2024 Jacob Dominguez MD Attending Provider Active St art: November 13, 2024 End: November 13, 2024 Team Status: Inactive Member Role Status Dates Dr. Eugenio Mayen DO Primary Care Provider Active Start: November 18, 2024 End: November 18, 2024 Dr. Eugenio Mayen DO Referring Provider Active Start: November 18, 2024 End: November 18, 2024 NIKI Rock Attending Provider Active Star t: November 18, 2024 End: November 18, 2024 Team Status: Inactive Member Role Status Dates Dr. Eugenio Mayen DO Primary Care Provider Active Start: November 18, 2024 End: November 18, 2024 Dr. Tyrone Fagan MD Attending Provider Active S tart: November 18, 2024 End: November 18, 2024 Team Status: Inactive Member Role Status Dates Dr. Eugenio Mayen DO Primary Care Provider Active Start: November 25, 2024 End: November 25, 2024 Dr. Abril Velarde DO Attending Provider Active S tart: November 25, 2024 End: November 25, 2024 Dr. Abril Velarde DO Emergency Provider Active S tart: November 25, 2024 End: November 25, 2024 Team Status: Inactive Member Role Status Dates Dr. Eugenio Mayen DO Primary Care Provider Active Start: December 08, 2024 End: December 08, 2024 Jacob Dominguez MD Attending Provider Active St art: December 08, 2024 End: December 08, 2024 Jacob Dominguez MD Referring Provider Active St art: December 08, 2024 End: December 08, 2024 Team Status: Inactive Member Role Status Dates Dr. Eugenio Mayen DO Primary Care Provider Active Start: December 15, 2024 End: December 15, 2024 Dr. Eugenio Mayen DO Referring Provider Active Start: December 15, 2024 End: December 15, 2024 Jacob Dominguez MD Attending Provider Active St art: December 15, 2024 End: December 15, 2024 Team Status: Inactive Member Role Status Dates Dr. Eugenio Mayen DO Primary Care Provider Active Start: December 22, 2024 End: December 22, 2024 NIKI Rock Attending Provider Active Star t: December 22, 2024 End: December 22, 2024 NIKI Rock Referring Provider Active Star t: December 22, 2024 End: December 22, 2024 Team Status: Active Member Role Status Dates Dr. Eugenio Mayen DO Primary Care Provider Active Start: January 01, 2025 Dr. Dean Del Cid DO Referring Provider Active Start : January 01, 2025 Dr. Dean Del Cid DO Emergency Provider Active Start : January 01, 2025 Team Status: Inactive Member Role Status Dates Dr. Eugenio Mayen DO Primary Care Provider Active Start: January 01, 2025 End: January 01, 2025 Dr. Dean Del Cid DO Referring Provider Active Start : January 01, 2025 End: January 01, 2025 Dr. Dean Del Cid DO Emergency Provider Active Start : January 01, 2025 End: January 01, 2025 Team Status: Inactive Member Role Status Dates Dr. Eugenio Mayen DO Primary Care Provider Active Start: January 03, 2025 End: January 03, 2025 Dr. Ken Mari MD Emergency Provider Active S tart: January 03, 2025 End: January 03, 2025 Project Mgr Relationship Specialty Start Date End Date Provider, Not In System, PCP - General 02/23/25 Team Status: Inactive Member Role Status Dates Dr. Eugenio Mayen DO Primary Care Provider Active Start: January 01, 2025 End: January 01, 2025 Dr. Dean Del Cid DO Attending Provider Active Start : January 01, 2025 End: January 01, 2025 Dr. Dean Del Cid DO Referring Provider Active Start : January 01, 2025 End: January 01, 2025 Dr. Dean Del Cid DO Emergency Provider Active Start : January 01, 2025 End: January 01, 2025 Team Status: Inactive Member Role Status Dates Dr. Eugenio Mayen DO Primary Care Provider Active Start: January 03, 2025 End: January 03, 2025 Dr. Ken Mari MD Attending Provider Active S tart: January 03, 2025 End: January 03, 2025 Dr. Ken Mari MD Emergency Provider Active S tart: January 03, 2025 End: January 03, 2025 Team Status: Active Member Role Status Dates Dr. Eugenio Mayen DO Primary Care Provider Active Start: March 19, 2025 Dr. Eugenio Mayen DO Referring Provider Active Start: March 19, 2025 NIKI Rock Attending Provider Active Star t: March 19, 2025 Team Status: Inactive Member Role Status Dates Dr. Eugenio Mayen DO Primary Care Provider Active Start: March 19, 2025 End: March 19, 2025 Dr. Tyrone Fagan MD Attending Provider Active S tart: March 19, 2025 End: March 19, 2025 Team Status: Inactive Member Role Status Dates Dr. Eugenio Mayen DO Primary Care Provider Active Start: March 19, 2025 End: March 19, 2025 Dr. Eugenio Mayen DO Referring Provider Active Start: March 19, 2025 End: March 19, 2025 NIKI Rock Attending Provider Active Star t: March 19, 2025 End: March 19, 2025 Goals (unrecognized section and content) Goals may be documented in a n alternate section Ordered Prescriptions (unrec ognized section and content) Prescription Sig Dispensed Refills Start Date End Da te ibuprofen (ADVIL;MOTRIN) 400 MG tablet Take 1 tablet by mouth every 8 hours as needed for Pain 6 tablet 0 03/08/2022 03/10/2022 Scheduled Active and Recently Administ ered Medications (unrecognized section and content) Medication Order 03/06/2022 03/07/2022 03/08/2022 morphine sulfate (PF) injection 2 mg (COMPLETED) 2 mg, IntraMUSCular, ONCE, 1 dose, On Sun03/08/22 at 1528, If oral and IV narcotics ordered, use oral first and only use IV if oral is ineffective or cannot take oral. Do Not give oral and IV within 1 hour of each other unless specifically ordered. 1533 (Given - Provid er: Meseret Kingsley) ondansetron (ZOFRAN-ODT) disintegrating tablet 4 mg (COMPLETED) 4 mg, Oral, ONCE, 1 dose, On Sun03/08/22 at 1528 1534 (Given - Provid er: Meseret Kingsley) Scheduled Medication Order 02/21/2025 02/22/2025 02/23/2025 Al-Mg hydroxide-simethicone (MAALOX) 200-200-20 mg/5 mL 30 mL, lidocaine (XYLOCAINE) 2 % 15 mL (COMPLETED) 45 mL, Oral, ONCE, On Sun02/23/25 at 0545, For 1 dose 0524 (Given - Provid er: Leela Wood RN) fentaNYL citrate (PF) (SUBLIMAZE) injectable syringe 50 mcg 50 mcg, IV Push, ONCE, 1 dose, On Sun02/23/25 at 0530 0508 (Not Given - Pr ovider: Nataliya Perry RN - Reason: Patient/family refused) ondansetron (ZOFRAN) injection 4 mg (COMPLETED) 4 mg, IV Push, ONCE, 1 dose, On Sun02/23/25 at 0530 0503 (Given - Provid er: Nataliya Perry RN) oxyCODONE-acetaminophen (PERCOCET) 5-325 mg per tablet 1 tablet (COMPLETED) 1 tablet, Oral, ONCE, 1 dose, On Sun02/23/25 at 0545 0524 (Given - Provid er: Leela Wood RN) Care Team (unrecognized sect ion and content) Care Team Personnel Name: ELENA LOONEY APRN-CAREER TECHNICAL COUNSELOR Position: P4 Advanced Practice Nurse Med Service: Active Provider Member Role: Pain Management Address: Address: [address] [place] [address] [place] [address]- [place] Name: EUGENIO MAYEN DO Position: P4 Physician - Primary Care Med Service: Active Provider Member Role: Primary Care Physician Address: Address: [address] [place] [address] [facility] [place], [place] [address] Name: MARCELL RAMSEY MD Position: P4 Physician - General Surgery Med Service: [facility] Pain Management Member Role: Pain Management Address: Address: [address] [place] [address] [place] [address]- [place] Care Team Related Persons Name: FRANCO HUI Address: Home [address] [place], [place] [id number] [place] Address: Temporary [address] [place], [place] [phone] Name: JASMINE ANTUNEZ Address: Home [address] [place], [place] [phone] Care Team Personnel Name: ELENA LOONEY APRN-CAREER TECHNICAL COUNSELOR Position: P4 Advanced Practice Nurse Member Role: Pain Management Address: Address: [address] [place] [address] [place] [address]- [place] Name: EUGENIO MAYEN DO Position: P4 Physician - Primary Care Member Role: Primary Care Physician Address: Address: [address] [place] [address]- Name: MARCELL RAMSEY MD Position: P4 Physician - General Surgery Member Role: Pain Management Address: Address: [address] [place] [address] [place] [address]- [place] Care Team Related Persons Name: FRANCO HUI Address: Home [address] [place], [place] [phone] [place] Address: Temporary [address] [place], [place] [phone] Name: JASMINE ANTUNEZ Address: Home [address] [place], [place] [phone] Care Team Personnel Name: ELENA LOONEY APRN-CAREER TECHNICAL COUNSELOR Position: P4 Advanced Practice Nurse Member Role: Pain Management Address: Address: [address] [place] [address] [place] [address]- [place] Name: EUGENIO MAYEN DO Position: P4 Physician - Primary Care Member Role: Primary Care Physician Address: Address: [address] [place] [address]- [place] Name: MARCELL RAMSEY MD Position: P4 Physician - General Surgery Member Role: Pain Management Address: Address: [address] [place] [address] [place] [address]- [place] Care Team Related Persons Name: FRANCO HUI Address: Home [address] [place], [place] [phone] [place] Address: Temporary [address] [place], [place] [phone] Name: JOHNNYJASMINE MARLEY Address: Home [address] [place], [place] [phone] Care Team Personnel Name: ELENA LOONEY Position: P4 Advanced Practice Nurse Member Role: Pain Management Address: Address: [address] [place] [address] [place] [address]- Name: EUGENIO MAYEN DO Position: P4 Physician - Primary Care Member Role: Primary Care Physician Address: Address: [address] [place] [address]- Name: MARCELL RAMSEY MD Position: P4 Physician - General Surgery Member Role: Pain Management Address: Address: [address] [place] [address] [place] [address]- [place] Care Team Related Persons Name: FRANCO HIU Address: Home [address] [place], [place] [phone] [place] Address: Temporary [address] [place] [id number] Name: JASMINE ANTUNEZ Address: Home [address] [place], [place] [phone] Care Team Personnel Name: ELENA LOONEY Position: P4 Advanced Practice Nurse Member Role: Pain Management Address: Address: [address] [place] [address] [place] [address]- [place] Name: EUGENIO MAYEN DO Position: P4 Physician - Primary Care Member Role: Primary Care Physician Address: Address: [address] [place] [address]- Name: MARCELL RAMSEY MD Member Role: Pain Management Address: Address: [address] [place] [address] [place] [address]- [place] Care Team Related Persons Name: FRANCO HUI Address: Home [address] [place], [place] [phone] [place] Address: Temporary [address] [place], [place] [phone] Name: JOHNNYDONELL JASMINE Address: Home [address] [place], [place] [phone] Care Team Personnel Name: ELENA LOONEY Position: P4 Advanced Underbaster Member Role: Pain Management Address: Address: [address] [place] [address] [place] [place] [phone] [place] [address] Name: EUGENIO MAYEN DO Position: P4 Physician - Primary Care Member Role: Primary Care Physician Address: Address: [address] [place] [phone] [place] [address] Name: MARCELL RAMSEY MD Member Role: Pain Management Address: Address: [address] [place] [address] [place] [address]- Care Team Related Persons Name: FRANCO HUI Address: Home [address] [place] [phone] [place] Address: Temporary [address] [place] [phone] Name: JOHNNYJASMINE MARLEY Address: [address] [place], [place] [phone] Care Team Personnel Name: ELENA LOONEY Position: P4 Advanced Underbaster Member Role: Pain Management Address: Address: [address] [place] [address] [place], [place] [address] Name: EUGENIO AMYEN DO Position: P4 Physician - Primary Care Member Role: Primary Care Physician Address: Address: [address] [place] [phone] [place] [address] Name: MARCELL RAMSEY MD Member Role: Pain Management Address: Address: [address] [place] [address] [place], [place] [address] Care Team Related Persons Name: FRANCO HUI Address: Home [address] [place] [phone] [place] Address: Temporary [address] [place] [phone] Name: JOHNNYJASMINE MARLEY Address: Home [address] [place], [place] [phone] Source Comments (unrecognize d section and content) In the event this informatio n is protected by the Federal Confidentiality of Alcohol and Drug Abuse Patient Records regulations: The Federal rules restrict any use of the information to criminally investigate or prosecute any alcohol or drug abuse patient.[facility] the event this information is protected by the Federal Confidentiality of Alcohol and Drug Abuse Patient Records regulations: The Federal rules restrict any use of the information to criminally investigate or prosecute any alcohol or drug abuse patient.[facility] the event this information is protected by the Federal Confidentiality of Alcohol and Drug Abuse Patient Records regulations: The Federal rules restrict any use of the information to criminally investigate or prosecute any alcohol or drug abuse patient.[facility] the event this information is protected by the Federal Confidentiality of Alcohol and Drug Abuse Patient Records regulations: The Federal rules restrict any use of the information to criminally investigate or prosecute any alcohol or drug abuse patient.[facility] the event this information is protected by the Federal Confidentiality of Alcohol and Drug Abuse Patient Records regulations: The Federal rules restrict any use of the information to criminally investigate or prosecute any alcohol or drug abuse patient.[facility] the event this information is protected by the Federal Confidentiality of Alcohol and Drug Abuse Patient Records regulations: The Federal rules restrict any use of the information to criminally investigate or prosecute any alcohol or drug abuse patient.[facility] the event this information is protected by the Federal Confidentiality of Alcohol and Drug Abuse Patient Records regulations: The Federal rules restrict any use of the information to criminally investigate or prosecute any alcohol or drug abuse patient.[facility] the event this information is protected by the Federal Confidentiality of Alcohol and Drug Abuse Patient Records regulations: The Federal rules restrict any use of the information to criminally investigate or prosecute any alcohol or drug abuse patient.[facility] the event this information is protected by the Federal Confidentiality of Alcohol and Drug Abuse Patient Records regulations: The Federal rules restrict any use of the information to criminally investigate or prosecute any alcohol or drug abuse patient.[facility] FOR RECORDS PERTAINING TO PATIENTS WHO ARE OR HAVE BEEN ENROLLED IN A CHEMICAL DEPENDENCY/SUBSTANCEABUSE PROGRAM, SOME INFORMATION MAY BE OMITTED. This clinical summary was aggregated from multiple sources. Caution should be exercised in using it in the provision of clinical care. This summary normalizes information from multiple sources, and as a consequence, information in this document may materially change the coding, format and clinical context of patient data. In addition, data may be omitted in some cases. CLINICAL DECISIONS SHOULD BE BASED ON THE PRIMARY CLINICAL RECORDS. [facility] [employer] [facility]. provides no warranty or guarantee of the accuracy or completeness of information in this document.
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
--- NOTE | 2025-04-04 15:30 | RAD_ITS ---
PROCEDURE: SHOULDER MIN 2 VIEWS 04/04/2025 REASON FOR EXAM: SHOULDER PAIN AND INJURY TECHNIQUE: SHOULDER MIN 2 VIEWS COMPARISON: Left shoulder MRI 12/08/2024, left shoulder radiographs 11/25/2024. FINDINGS: Bones: Diffuse osseous demineralization. No acute fracture. Chronic left mid humeral shaft fracture. Joints: Elevated humeral head, compatible with known rotator cuff injury. Degenerative changes of the acromioclavicular and glenohumeral joints. Soft tissues: Soft tissues are unremarkable. RAD/Shoulder min 2 Views IMPRESSION: DEGENERATIVE OSTEOARTHROSIS. NO ACUTE FINDINGS. Reading Location: [id number]
[2025-04-04 15:53] VITALS: PULSE 59; RESP 14
[2025-04-04 16:05] VITALS: BP 140/76; PULSE 59; RESP 14; TEMP 36.7; O2SAT 100
[2025-04-04] MEDS: HYDROcodone Bitartrate/Apap 5/325 Tablet PO (16:08)
== END 2025-04-04 16:09 | disposition home or self-care (01) ==
PROVIDERS: Emergency Provider Emergency Medicine; PCP Student in an Organized Health Care Education/Training Program; Visit Provider Emergency Medicine
DX: M75.102 Unspecified rotator cuff tear or rupture of left shoulder, not specified as traumatic (principal); W18.09XA Striking against other object with subsequent fall, initial encounter; K21.9 Gastro-esophageal reflux disease without esophagitis; E78.00 Pure hypercholesterolemia, unspecified; Z87.81 Personal history of (healed) traumatic fracture; Z79.02 Long term (current) use of antithrombotics/antiplatelets; Z79.899 Other long term (current) drug therapy; Z87.891 Personal history of nicotine dependence
CPT/HCPCS: 73030; 99282

== ENCOUNTER 2025-04-26 08:24 | Emergency (ER) | payer MEDICAID, SELFPAY ==
[2025-04-26 08:25] VITALS: BP 121/74; PULSE 73; RESP 16; TEMP 36.4; O2SAT 100; BMI 22.1
[2025-04-26 10:15] VITALS: BP 130/77; PULSE 51; RESP 22; O2SAT 97
[2025-04-26 11:00] VITALS: BP 145/80; PULSE 43; RESP 18; O2SAT 100
[2025-04-26] MEDS: HYDROmorphone 0.5 MG/0.5 ML SYRINGE IV (11:15)
[2025-04-26 12:00] VITALS: PULSE 58; RESP 16
[2025-04-26 12:39] VITALS: BP 145/80; PULSE 58; RESP 16; TEMP 36.4; O2SAT 100
== END 2025-04-26 12:39 | disposition home or self-care (01) ==
PROVIDERS: Emergency Provider Surgery; PCP Student in an Organized Health Care Education/Training Program; Visit Provider Surgery
DX: S09.90XA Unspecified injury of head, initial encounter (principal); S70.02XA Contusion of left hip, initial encounter; S40.012A Contusion of left shoulder, initial encounter; Z87.891 Personal history of nicotine dependence; S29.019A Strain of muscle and tendon of unspecified wall of thorax, initial encounter; S60.212A Contusion of left wrist, initial encounter; S70.01XA Contusion of right hip, initial encounter; E78.00 Pure hypercholesterolemia, unspecified; S20.229A Contusion of unspecified back wall of thorax, initial encounter; S30.0XXA Contusion of lower back and pelvis, initial encounter; W10.9XXA Fall (on) (from) unspecified stairs and steps, initial encounter; K21.9 Gastro-esophageal reflux disease without esophagitis; Z79.899 Other long term (current) drug therapy; S39.012A Strain of muscle, fascia and tendon of lower back, initial encounter
CPT/HCPCS: 70450; 71045; 72125; 72128; 72131; 73030; 73110; 73521; 96374; 96375; 99283; A4216; J2405

== ENCOUNTER 2025-05-31 09:26 | Emergency (ER) | payer MEDICAID, SELFPAY ==
[2025-05-31 09:27] VITALS: BP 125/77; PULSE 65; RESP 16; TEMP 36.6; O2SAT 100; BMI 20.8
--- OUTSIDE RECORDS SUMMARY | 2025-05-31 09:59 | XMS RPT_ITS | CCD ---
Author Organization [facility] Care Team Providers Care Trimmer Climber Name Role Phone KADEEM LEVI Unavailable Unavailable RayRoneyGayle Unavailable Unavailable PROVIDER, UNKNOWN Unavailable Unavailable No, PCP Unavailable Unavailable Ray, Gayle Unavailable Unavailable PROVIDER, UNKNOWN Unavailable Unavailable No, PCP Unavailable Unavailable Unavailable Primary Care Provider UnavailEugenio Randhawa Unavailable Unavailable Unavailable EUGENIO MAYEN DO Primary Care Physician [phone] Unavailable Primary Care Provider Unavailorion TOUSSAINT, DR NAWAF Funes Admitting Unavaila ble AUGUSTA, DR NAWAF Funes Attending Unavaila ble AUGUSTA, DR NAWAF Funes Primary Care Unavaila ble AUGUSTA, DR NAWAF Funes Admitting Unavaila ble AUGUSTA, DR NAWAF Funes Attending Unavaila ble EUGENIO MAYEN IV Referring Unavailable AUGUSTA, DR NAWAF Funes Primary Care Unavaila ble EUGENIO MAYEN IV Consulting Unavailable PROVIDER, UNKNOWN Consulting Unavailable Jg NOLAND MD, Michael Primary Care Provider [phone] Jg NOLAND DO, Michael Primary Care Provider [phone] Marcell Ramsey Unavailable Jg NOLAND DO, Michael A Primary Care Provider HALMARII NOLAND SARAI Referring Unavailable HALKO IV, [...] ZORAN Casillas Attending Unavail able HALKO DO, EUGENIO Primary Care Unavailable HALKO DO, EUGENIO Attending Unavailable Vitalyko , Dr. Paulino Primary Care Provider Marco A FLEMING, Dr. Collins Attending Provider Marco A FLEMING, Dr. Collins Referring Provider Marco A FLEMING, Dr. Collins Emergency Provider Jg FLEMING, Dr. Paulino Referring Provider Jacob Dominguez MD Attending Provider [phone] Aiyana Bolanos Attending Provider Gracia LUCAS, Dr. Hansen Attending Provider [phone] Prachi FLEMING, Dr. Samuels Attending Provider [phone] Abril Velarde DO Emergency Provider [phone] Jacob Dominguez MD Referring Provider [phone] Aiyana Bolanos Referring Provider Maria Eugenia FLEMING, Dr. Moran Referring Provider [phone] Dr. Dean Del Cid DO Emergency Provider Dr. Ken Mari MD Emergency Provider Provider MD, Not In System Primary Care Provider Unavailable GO RICE Referring Unavailable GO RICE Attending Unavailable GO RICE Referring Unavailable GO RICE Attending Unavailable GO RICE Attending Unavailable Jg FLEMING, Dr. Paulino Primary Care Provider Jacob Dominguez MD Attending Provider Jg FLEMING, Dr. Paulino Referring Provider Aiynaa Bolanos Attending Provider Maria Eugenia FLEMING, Dr. Moran Attending Provider Kamaljit LUCAS, Dr. Rogers Attending Provider Gracia LUCAS, Dr. Hansen Attending Provider Jg DO, Dr. Paulino Primary Care Provider [phone] Jg DO, Dr. Paulino Primary Care Provider [phone] Jg DO, Dr. Paulino Referring Provider Aiyana Bolanos Attending Provider Ivy FLEMING, Dr. Weiner Emergency Provider Ken Mari Attending Unavailable Halko, Eugenio Primary Care Unavailable UngurTiffanieus Attending Unavailable Halko, Eugenio Primary Care Unavailable Tyrone Fagan Attending Unavailable Halko, Eugenio Primary Care Unavailable Halko, Eugenio Primary Care Unavailable Jacob Dominguez Attending Unavailable Halko, Eugenio Referring Unavailable Halko, Eugenio Primary Care Unavailable Tyrone Fagan Attending Unavailable Halko, Eugenio Primary Care Unavailable Aiyana Campbell Attending Unavailable Halko, Eugenio Referring Unavailable Jacob Dominguez Attending Unavailable Halko, Eugenio Referring Unavailable Halko, Eugenio Primary Care Unavailable AdrianAiyana Attending Unavailable Halko, Eugenio Referring Unavailable Halko, Eugenio Primary Care Unavailable Halko, Eugenio Primary Care Unavailable Dennis Strickland Attending Unavailable Strickland Dennis Referring Unavailable Halko, Eugenio Primary Care Unavailable Ungur, Abril Attending Unavailable Dean Del Cid Referring Unavailable Dean Del Cid Attending Unavailable Halko, Eugenio Primary Care Unavailable Ken Mari Attending Unavailable Halko, Eugenio Primary Care Unavailable Husam Haynes Attending Unavailabl e Halko, Eugenio Primary Care Unavailable Halko, Eugenio Primary Care Unavailable Jacob Dominguez Attending Unavailable Jacob Dominguez Referring Unavailable Aiyana Campbell Attending Unavailable Adrian, Aiyana Referring Unavailable Halko, Eugenio Primary Care Unavailable Barrett Leonard Attending Unavailable Halko, Eugenio Primary Care Unavailable HALKO, EUGENIO Attending Unavailable HALKO, EUGENIO Primary Care Unavailable HALKO, EUGENIO Attending Unavailable HALKO, EUGENIO Primary Care Unavailable HALKO, EUGENIO Attending Unavailable HALMARII, EUGENIO Primary Care Unavailable HALKO, EUGENIO Attending Unavailable HALKO, EUGENIO Primary Care Unavailable HALKO, EUGENIO Primary Care Unavailable HALKO, EUGENIO Attending Unavailable HALKO, EUGENIO Attending Unavailable HALKO, EUGENIO Primary Care Unavailable HALKO, EUGENIO Attending Unavailable HALKO, EUGENIO Primary Care Unavailable HALKO, EUGENIO Attending Unavailable HALMARII, EUGENIO Primary Care Unavailable HALKO, EUGENIO Attending Unavailable HALKO, EUGENIO Primary Care Unavailable HALKO, EUGENIO Primary Care Unavailable HALKO, EUGENIO Attending Unavailable HALKO, EUGENIO Attending Unavailable HALKO, EUGENIO Primary Care Unavailable Allergies Allergy Classification Reported Allergen(s) Allergy Type Date of Onset Reaction(s) Facility Acetaminophen / HYDROcodone (1 source) Acetaminophen / HYDROcodone; Translations: [Vicodin TABS] Drug Allergy [facility] Work Phone: Adhesive Tape (1 source) Adhesive Tape Substance Allergy [facility] Work Phone: NSAIDs (1 source) Naproxen; Translations: [Naprosyn] Drug Allergy [facility] Work Phone: Opioid Agonists (2 sources) traMADol; Translations: [Ultram] Drug Allergy [facility] Work Phone: (17 sources) acetaminophen / HYDROcodone; Translations: [HYDROCODONE-ACET AMINOPHEN] Drug Allergy 7 [facility] (20 sources) naproxen; Translations: [NAPROXEN] Drug Allergy 7 [facility] (15 sources) traMADol; Translations: [TRAMADOL HCL] Drug Allergy 5 GI Upset [facility] Repository (20 sources) Acetaminophen / HYDROcodone; Translations: [acetaminophen-hy drocodone] Drug Allergy [facility] (20 sources) Codeine; Translations: [codeine] Drug Allergy 2 Nausea [facility] (20 sources) traMADol; Translations: [tramadol] Drug Allergy 1 Upset Stomach [facility] (20 sources) Tape, plastic Allergy to substance Eruption (morphologic abnormality) [facility] (14 sources) predniSONE; Translations: [prednisone] Drug Allergy 2 Weal (disorder) [facility] (8 sources) Acetaminophen Drug Allergy 8 Itching [facility] (20 sources) HYDROcodone Drug Allergy 1 Upset Stomach [facility] (20 sources) Ibuprofen; Translations: [ibuprofen] Drug Allergy 2 Stomach ache (finding) [facility] Work Phone: (4 sources) gabapentin; Translations: [gabapentin] Drug Allergy 2 Drowsy (finding), Other (See Comments) [facility] (18 sources) Lidocaine; Translations: [lidocaine topical] Drug Allergy 2 Eruption of skin (disorder), Rash [facility] (11 sources) methylPREDNISolon e; Translations: [methylprednisolo ne] Drug Allergy rash, upset stomach [facility] (20 sources) nabumetone; Translations: [nabumetone] Drug Allergy Dyspnea (finding) [facility] (2 sources) Acetaminophen / HYDROcodone Drug Allergy [facility] Repository (2 sources) HYDROcodone Drug Allergy [facility] Rep[facility] (2 sources) Ibuprofen Drug Allergy [facility] Rep[facility] (4 sources) traMADol Drug Allergy [facility] (19 sources) Ketorolac Drug Allergy 2 Rash [facility] (13 sources) cyclobenzaprine; Translations: [cyclobenzaprine] Drug Allergy itching, rash [facility] (15 sources) Adhesive Tape; Translations: [adhesive tape] Propensity to adverse reactions 2 Rash [facility] (9 sources) Buprenorphine; Translations: [buprenorphine] Drug Allergy Nausea (finding) [facility] (1 source) oxyCODONE; Translations: [oxycodone] Drug Allergy Itching (finding) [facility] (9 sources) tamsulosin; Translations: [tamsulosin] Drug Allergy Itching (finding) [facility] (8 sources) Docusate; Translations: [docusate] Drug Allergy Itching (finding) [facility] (11 sources) Adhesive Tape-Silicones; Translations: [ADHESIVE TAPE-SILICONES] Drug Allergy [address] [facility] (7 sources) meloxicam Drug Allergy 5 Muscle weakness [facility] (2 sources) Adhesive agent; Translations: [ADHESIVE] Propensity to adverse reactions to drug 5 [facility] (1 source) HYDROcodone Drug Allergy 5 [facility] (1 source) Ibuprofen Drug Allergy 5 [facility] (1 source) Ketorolac Drug Allergy 5 [facility] (1 source) meloxicam Drug Allergy 5 [facility] (1 source) traMADol Drug Allergy 5 [facility] Rep[facility] Medications Current Medications Medication Drug Class(es) Dates Sig (Normalized) Sig (Original) acetaminophen 500 mg oral tablet (15 sources) Start: 12-03-2024 End: 06-01-2025 acetaminophen 500 mg oral tablet Dose : 500 mg = 1 tab(s), Oral, q8h, X 90 day(s), # 270 tab(s), 1 Refill(s), 06/01/25 11:17:00 AM EDT, Pharmacy: [facility], 180, cm, 12/03/24 10:42:00 EST, Height, kg, 12/03/24 10:42:00 EST, Dosing Weight Start Date: 12/03/24 Stop Date: 06/01/25 Status: Ordered Medication Dispense Status: Completed Quantity: 270.0 Unit: tab(s) Total Allowed Fills: 2 Fills Dispensed: 0 Start: 10-09-2023 Acetaminophen Active MG October 09, [...] oral tablet (2 sources) Opioid Agonist Start: 2 take 1 tablet by mouth every six hours as needed Hydrocodone-Acetaminoph en Active 1 TABLET PO EVERY 6 HOURS NEEDED 10 3 April 24, 2022 acetaminophen 325 mg / oxyCODONE hydrochloride 5 mg oral tablet (20 sources) Opioid Agonist Start: End: take 1 tablet by mouth every six hours as needed for pain Percocet 5 mg-325 mg oral tablet Dose = 1 tab(s), Oral, q6h, PRN Pain, decrease dose back to this dose at this fill fill on or after 06/19/2025, X 30 day(s), # 120 tab(s), 0 Refill(s), Pharmacy: [id number], DDD (degenerative disc disease), lumbar, 176.5, cm, 05/20/25 13:56:00 EDT, Height, 68.1, kg, 05/20/25 13:56:00 EDT, Dosing Weight Start Date: 05/20/25 Stop Date: 06/19/25 Status: Ordered Medication Dispense Status: Completed Quantity: 120.0 Unit: tab(s) Total Allowed Fills: 1 Fills Dispensed: 0 Indications: Other intervertebral disc degeneration, lumbar region without mention of lumbar back pain or lower extremity pain; Start: 05-20-2025 End: 06-19-2025 take 1 tablet by mouth every six hours acetaminophen-oxycodone 325 mg-7.5 mg or al tablet Dose = 1 tab(s), Oral, q6hr, fill on or after 05/20/2025, # 120 tab(s), 0 Refill(s), Pharmacy: [id number], Rotator cuff tear, 176.5, cm, 05/20/25 13:56:00 EDT, Height, 68.1, kg, 05/20/25 13:56:00 EDT, Dosing Weight Start Date: 05/20/25 Stop Date: 06/19/25 Status: Ordered Medication Dispense Status: Completed Quantity: 120.0 Unit: tab(s) Total Allowed Fills: 1 Fills Dispensed: 0 Indications: Unspecified rotator cuff tear or rupture of unspecified shoulder, not specified as traumatic; Start: 04-02-2025 End: 05-02-2025 take 1 tablet by mouth every six hours acetaminophen-oxycodone 325 mg-7.5 mg or al tablet Dose = 1 tab(s), Oral, q6hr, fill on or after 04/16/2025 increased dose due to rotator cuff tear, X 30 day(s), # 120 tab(s), 0 Refill(s), Pharmacy: [id number], Rotator cuff tear, 177, [...] day(s), # 120 tab(s), 0 Refill(s), Pharmacy: [facility], Low back pain DDD (degenerative disc disease), lumbar, 180, cm, 09/11/24 9:44:00 EST, Height, 70.2, kg, 09/11/24 9:44:00 EST, Dosing Weight Start Date: 09/11/24 Stop Date: 10/11/24 Status: Ordered Start: 07-06-2024 End: 12-15-2024 take 1 tablet by mouth every eight hours as needed for pain Oxycodone-Acetaminophen (Percocet) 5-325 mg tablet Active 1 {tbl} PO Q8H as needed for pain 10 3 0 November 25, 2024 Strain of neck muscle Strain of muscle, fascia and tendon at neck level, initial encounter Start: 04-16-2022 End: 10-09-2023 Oxycodone-Acetaminophen (Per cocet) 5-325 mg tablet Discontinued 1 {tbl} PO EVERY 6 HOURS as needed for pain 10 3 0 April 16, 2022 October 09, 2023 2:17pm Contusion of pelvic region Strain of lumbar region Bleeding external hemorrhoids Contusion of lower back and pelvis, initial encounter Strain of muscle, fascia and tendon of lower back, initial encounter Residual hemorrhoidal skin tags Start: 03-02-2022 End: 03-09-2022 take 1 tablet by mouth every six hours as needed for pain Percocet 5 mg-325 mg oral tablet Dose = 1 tab(s), Oral, q6hr, PRN for pain, to fill on of after 03/02/22, X 7 day(s), # 28 tab(s), 0 Refill(s), Pharmacy: [facility]/pharmacy #[id number], Back pain Lumbar radiculopathy, 178, cm, 02/20/22 15:58:00 EDT, Height, 71 Start Date: 03/02/22 Stop Date: 03/09/22 Status: Ordered Start: 02-27-2022 take 1 tablet by angel th every six hours as needed Oxycodone-Acetaminophen Active 1 TABLET PO EVERY 6 HOURS NEEDED 12 February 27, 2022 7:52pm Start: 01-05-2022 End: 01-10-2022 take 1 tablet by mouth every six hours as needed for pain Percocet 5 mg-325 mg oral tablet Dose = 1 tab(s), Oral, q6h, PRN for pain, # 20 tab(s), 0 Refill(s), Pharmacy: [facility]/pharmacy #[id number], Lumbar radiculopathy DDD (degenerative disc disease), [...] pain, # 20 tab(s), 0 Refill(s), Pharmacy: [facility]/pharmacy #[id number], Right shoulder pain, 185, cm, 12/07/21 [...] 6 HOURS NEEDED as needed for Pain 20 5 0 February 10, 2019 12:00am February 14, 2019 12:00am February 15, 2019 12:09am Contusion of left foot, initial encounter Contusion of left hip, initial encounter Sprain of ligaments of cervical spine, initial encounter Contusion of left foot, initial encounter Contusion of left hip, initial encounter Sprain of ligaments of cervical spine, initial encounter Start: 02-10-2019 End: 02-15-2019 take 1 tablet by mouth every six hours as needed Oxycodone-Acetaminophen Discontinued 1 TABLET PO EVERY 6 HOURS NEEDED 20 5 February 10, 2019 12:00am February 15, 2019 12:09am Start: 12-31-2018 End: 01-03-2019 Oxycodone-Acetaminophen 1 TA BLET tablet Discontinued 1 {tbl} PO EVERY 6 HOURS NEEDED as needed for Pain 12 3 0 December 31, 2018 12:00am January 02, 2019 12:00am January 03, 2019 12:13am Contusion of back Contusion of unspecified back wall of thorax, initial encounter Start: 12-31-2018 End: 01-03-2019 take 1 tablet by mouth every six hours as needed Oxycodone-Acetaminophen Discontinued 1 TABLET PO EVERY 6 HOURS NEEDED 12 3 December 31, 2018 12:00am January 03, 2019 12:13am Start: 11-26-2018 End: 03-09-2022 oxyCODONE-acetaminophen (PER COCET) 5-325 MG per tablet Take by mouth. 0 11/26/2018 03/09/2022 Active Start: 11-26-2018 End: 11-29-2018 Oxycodone-Acetaminophen 1 TA BLET tablet Discontinued 1 {tbl} PO EVERY 6 HOURS NEEDED as needed for Pain 8 3 0 November 26, 2018 1:00am November 28, 2018 1:00am November 29, 2018 1:17am Sprain of wrist Unspecified sprain of unspecified wrist, initial encounter Start: 11-26-2018 End: 11-29-2018 take 1 tablet by mouth every six hours as needed Oxycodone-Acetaminophen Discontinued 1 TABLET PO EVERY 6 HOURS NEEDED 8 November 26, 2018 1:00am November 29, 2018 1:17am Percocet 5-325 M G Oral Tablet Quantity: 0 Refills: 0 Ordered: 12-Jan-2021 DO Active albuterol MDI (90 mcg/inh) CFC free inhalation aerosol (12 sources) Start: 03-26-2025 End: 09-22-2025 take 2 puff(s) by inhalation every four hours albuterol MDI (90 mcg/inh) CFC free inhalation aerosol 2 puff(s), Inhalation, q4h, ok to fill generic equivalent rescue inhaler, # 1 EA, 5 Refill(s), Pharmacy: [id number], Chronic obstructive pulmonary disease, 177, cm, 03/26/25 9:32:00 EDT, Height, kg, 03/26/25 9:32:00 EDT, Dosing Weight Start Date: 03/26/25 Stop Date: 09/22/25 Status: Ordered Medication Dispense Status: Completed Quantity: 1.0 Unit: EA Total Allowed Fills: 6 Fills Dispensed: 0 Indications: Chronic obstructive pulmonary disease, unspecified; Start: 03-26-2025 End: 09-22-2025 take 2 puff(s) by inhalation every four hours albuterol MDI (90 mcg/inh) CFC free inhalation aerosol 2 puff(s), Inhalation, q4h, ok to fill generic equivalent rescue inhaler, # 1 EA, 5 Refill(s), Pharmacy: [id number], Chronic obstructive pulmonary disease, [...] inhaler, # 1 EA, 5 Refill(s), Pharmacy: [facility], 180, cm, 04/16/24 13:44:00 EDT, Height, kg, 04/16/24 13:42:00 EDT, Dosing Weight Start Date: 06/18/24 Stop Date: 12/15/24 Status: Ordered Start: 11-19-2023 End: 05-17-2024 take 2 puff(s) by inhalation every four hours albuterol MDI (90 mcg/inh) CFC free inhalation aerosol 2 puff(s), Inhalation, q4h, ok to fill generic equivalent rescue inhaler, # 1 EA, 5 Refill(s), [id number], 180, cm, 11/19/23 13:28:00 EST, Height, kg, 11/19/23 13:28:00 EST, Dosing Weight Start Date: 11/19/23 Stop Date: 05/17/24 Status: Ordered Start: 07-03-2023 End: 12-30-2023 take 2 puff(s) by inhalation every four hours albuterol MDI (90 mcg/inh) CFC free inhalation aerosol 2 puff(s), Inhalation, q4h, ok to fill generic equivalent rescue inhaler, # 1 EA, 5 Refill(s), Pharmacy: [facility]/pharmacy #[id number], 178, cm, 06/27/23 10:23:00 EDT, Height, kg, 06/27/23 10:23:00 EDT, Dosing Weight Start Date: 07/03/23 Stop Date: 12/30/23 Status: Ordered Start: 11-23-2022 End: 05-22-2023 take 2 puff(s) by inhalation every four hours albuterol MDI (90 mcg/inh) CFC free inhalation aerosol 2 puff(s), Inhalation, q4h, ok to fill generic equivalent rescue inhaler, # 1 EA, 5 Refill(s), Pharmacy: [facility]/pharmacy #[id number], 178, cm, 11/16/22 15:20:00 EST, Height, kg, 11/23/22 13:45:00 EST, Dosing Weight Start Date: 11/23/22 Stop Date: 05/22/23 Status: Ordered Start: 09-22-2022 End: 03-21-2023 take 2 puff(s) by inhalation every four hours albuterol MDI (90 mcg/inh) CFC free inhalation aerosol 2 puff(s), Inhalation, q4h, ok to fill generic equivalent rescue inhaler, # 1 EA, 5 Refill(s), [id number], 178, cm, 09/22/22 13:53:00 EST, Height, kg, 09/22/22 13:53:00 EST, Dosing Weight Start Date: 09/22/22 Stop Date: 03/21/23 Status: Ordered Start: 07-27-2022 End: 01-23-2023 take 2 puff(s) by inhalation every four hours albuterol MDI (90 mcg/inh) CFC free inhalation aerosol 2 puff(s), Inhalation, q4h, ok to fill generic equivalent rescue inhaler, # 1 EA, 5 Refill(s), [id number], 178, cm, 07/27/22 13:49:00 EDT, Height, kg, 07/27/22 13:49:00 EDT, Dosing Weight Start Date: 07/27/22 Stop Date: 01/23/23 Status: Ordered Start: 06-28-2022 End: 07-28-2022 take 2 puff(s) by inhalation every four hours albuterol MDI (90 mcg/inh) CFC free inhalation aerosol 2 puff(s), Inhalation, q4h, ok to fill generic equivalent rescue inhaler, # 1 EA, 0 Refill(s), [id number], 178, cm, 05/29/22 11:16:00 EDT, Height Start Date: 06/28/22 Stop Date: 07/28/22 Status: Ordered atorvastatin 40 mg oral tablet (20 sources) HMG-CoA Reductase Inhibitor Start: 01-13-2023 atorvastatin 40 mg oral tablet Dose : 40 mg = 1 tab(s), Oral, qHS, # 90 tab(s), 1 Refill(s), Pharmacy: [id number], 177, cm, 03/02/25 16:22:00 EDT, Height, kg, 03/02/25 16:22:00 EDT, Dosing Weight Start Date: 03/02/25 Status: Ordered Medication Dispense Status: Completed Quantity: 90.0 Unit: tab(s) Total Allowed Fills: 2 Fills Dispensed: 0 Start: 01-28-2019 take 1 tablet by angel [...] Status: Ordered clopidogrel 75 mg oral tablet (20 sources) [id number] Platelet Inhibitor Start: 05-20-2025 clopidogrel 75 mg oral tablet Dose : 75 mg = 1 tab(s), Oral, qDay, # 90 tab(s), 1 Refill(s), Pharmacy: [id number], 176.5, cm, 05/20/25 13:56:00 EDT, Height, kg, 05/20/25 13:56:00 EDT, Dosing Weight Start Date: 05/20/25 Status: Ordered Medication Dispense Status: Completed Quantity: 90.0 Unit: tab(s) Total Allowed Fills: 2 Fills Dispensed: 0 Start: 10-09-2023 End: 11-13-2024 take 1 tablet by mouth once daily Clopidogrel 75 mg tablet Active 75 mg PO daily November 13, 2024 3:10pm Start: 10-09-2023 Clopidogrel Ac tive MG October 09, 2023 1:00am cyclobenzaprine hydrochloride 5 mg oral tablet (20 sources) Muscle Relaxant Start: 11-05-2024 take 1 tablet by mouth three times daily as needed for muscle spasms Cyclobenzaprine 5 mg tablet Active 5 mg PO THREE TIMES A DAY as needed for muscle spasm 12 4 0 November 05, 2024 1:00am Start: 08-09-2023 End: 03-10-2025 [...] Start: 04-04-2020 take 1 tablet by angel th every eight hours as needed cyclobenzaprine (FLEXERIL) 10 mg tablet Take 1 tablet by mouth every 8 hours as needed for Muscle Spasm (or pain). 14 tablet 0 04/04/2020 Active Comment on above: Take 1 tablet by angel th every 8 hours as needed for Muscle Spasm (or pain). diazePAM 5 mg oral tablet (7 sources) Benzodiazepine Start: 01-02-20 take 1 tablet by mouth every eight hours as needed for muscle spasms Diazepam 5 mg tablet Active 5 mg PO EVERY 8 HOURS as needed for Muscle Spasm January 01, 2025 12:00am dilTIAZem hydrochloride 120 mg oral tablet (14 sources) Calcium Channel Beba Start: 01-03-20 dilTIAZem 120 mg oral tablet 0 Refill(s) Start Date: 01/02/25 Status: Ordered Medication Dispense Status: Completed Total Allowed Fills: 1 Fills Dispensed: 0 Start: 12-22-2024 End: 03-22-2025 Diltiazem Diltiazem, 1 appli cation, Topical, 4x/Day, 2% strength base cream, PRN anal fissue, # 45 gram(s), 2 Refill(s), Pharmacy: [facility], 180, cm, 12/22/24 13:50:00 EST, Height, 72.2, kg, 12/22/24 13:50:00 EST, Dosing Weight Start Date: 12/22/24 Stop Date: 03/22/25 Status: Ordered Medication Dispense Status: Completed Quantity: 45.0 Unit: g Total Allowed Fills: 3 Fills Dispensed: 0 Start: 12-22-2024 End: 03-22-2025 Diltiazem Diltiazem, 1 appli cation, Topical, 4x/Day, 2% strength base cream, PRN anal fissue, # 45 gram(s), 2 Refill(s), Pharmacy: [facility], 180, cm, 12/22/24 13:50:00 EST, Height, 72.2, kg, 12/22/24 13:50:00 EST, Dosing Weight Start Date: 12/22/24 Stop Date: 03/22/25 Status: Ordered Quantity: 45.0 Unit: g Repeat number: 3 Start: 04-16-2024 End: 07-15-2024 Diltiazem Diltiazem, 1 appli cation, Topical, 4x/Day, 2% strength, PRN anal fissue, # 45 gram(s), 2 Refill(s), [id number], 180, cm, 04/16/24 13:44:00 EDT, Height, 69.4, kg, 04/16/24 13:42:00 EDT, Dosing Weight Start Date: 04/16/24 Stop Date: 07/15/24 Status: Ordered Start: 04-26-2023 End: 07-25-2023 Diltiazem Diltiazem, 1 appli cation, Topical, 4x/Day, 2% strength, PRN anal fissue, # 45 gram(s), 2 Refill(s), Pharmacy: [facility] #[id number], 178, cm, 04/25/23 13:12:00 EDT, Height, [...] pills, # 1 EA, 0 Refill(s), Pharmacy: [facility], Prescription lost, 180, cm, 11/28/24 13:10:00 EST, Height, 71.6, kg, 11/28/24 13:10:00 EST, Dosing Weight Start Date: 11/28/24 Status: Ordered Medication Dispense Status: Completed Quantity: 1.0 Unit: EA Total Allowed Fills: 1 Fills Dispensed: 0 Indications: Patient's other noncompliance with medication regimen for other reason; Start: 11-28-2024 DME MISCellane ous See Instructions, dx: Z91.148, dispense 1 daily pill case that fits in pocket-to help prevent loss of pills, # 1 EA, 0 Refill(s), Pharmacy: [facility], Prescription lost, 180, cm, 11/28/24 13:10:00 [...] Refill(s), 70.9 Start Date: 11/19/23 Status: Ordered Medication Dispense Status: Completed Quantity: 1.0 Unit: EA Total Allowed Fills: 1 Fills Dispensed: 0 Start: 11-19-2023 DME MISCellane ous See Instructions, [...] gait, 75.4 Start Date: 01/05/22 Status: Ordered Medication Dispense Status: Completed Quantity: 1.0 Unit: EA Total Allowed Fills: 1 Fills Dispensed: 0 Indications: Unsteadiness on feet; Other symptoms and [...] sources) Serotonin and Norepinephrine Reuptake Inhibitor Start: 05-28-2025 DULoxetine 30 mg ora l delayed release capsule See Instructions, lost pills, needs early fill 2 cap(s) Oral am and 1 cap pm 90 day(s), # 135 cap(s), 1 Refill(s), Pharmacy: [facility] #[id number], 176.5, cm, 05/20/25 13:56:00 EDT, Height, kg, 05/20/25 13:56:00 EDT, Dosing Weight Start Date: 05/28/25 Status: Ordered Medication Dispense Status: Completed Quantity: 135.0 Unit: cap(s) Total Allowed Fills: 2 Fills Dispensed: 0 Start: 03-02-2025 DULoxetine 30 mg oral delayed release capsule See Instructions, lost pills, needs early fill 2 cap(s) Oral am and 1 cap pm 90 day(s), # 135 cap(s), 1 Refill(s), Pharmacy: [facility] #[id number], 177, cm, 03/02/25 16:22:00 EDT, [...] day(s), # 135 cap(s), 1 Refill(s), [id number], 180, cm, 11/19/23 13:28:00 EST, Height, kg, [...] evening, # 90 cap(s), 1 Refill(s), Pharmacy: [facility]acy #[id number], 178, cm, 10/26/22 13:53:00 EST, Height, [...] BID, # 180 cap(s), 1 Refill(s), Pharmacy: [facility] #[id number], 178, cm, 02/20/22 15:58:00 EDT, Height, kg, 02/20/22 15:58:00 EDT, Dosing Weight Start Date: 02/20/22 Stop Date: 08/19/22 Status: Ordered Start: 01-05-2022 DULoxetine 20 mg oral delayed release capsule Dose : 20 mg = 1 cap(s), Oral, BID, # 60 cap(s), 1 Refill(s), Pharmacy: [facility] #[id number], 185, cm, 01/05/22 10:16:00 EDT, Height, kg, 01/05/22 10:16:00 EDT, Dosing Weight Start Date: 01/05/22 Status: Ordered Comment on above: TAKE 1 CAPSULE BY MO JOSEPH TWICE A DAY FOR 90 DAYS - DOSE INCREASE - DO NOT CRUSH OR CHEW Epson salts (11 sources) Start: 04-16-2024 Epson salts Ep son salts, See Instructions, 1 EA = one box/contianer of epson salts; soak in sitz bath up to 4x/day, # 1 EA, 5 Refill(s), Pharmacy: [facility] #[id number], 180, cm, 04/16/24 13:44:00 EDT, Height, 69.4, kg, 04/16/24 13:42:00 EDT, Dosing Weight Start Date: 04/16/24 Status: Ordered Quantity: 1.0 Unit: EA Repeat number: 6 Start: 04-16-2024 Epson salts Ep son salts, See Instructions, 1 EA = one box/contianer of epson salts; soak in sitz bath up to 4x/day, # 1 EA, 5 Refill(s), Pharmacy: [facility] #[id number], 180, cm, 04/16/24 13:44:00 EDT, Height, 69.4, kg, 04/16/24 13:42:00 EDT, Dosing Weight Start Date: 04/16/24 Status: Ordered Start: 04-28-2022 Epson salts Ep son salts, See Instructions, 1 EA = one box/contianer of epson salts; soak in sitz bath up to 4x/day, # 1 EA, 0 Refill(s), Pharmacy: [facility]/pharmacy #[id number], 178, cm, 04/28/22 13:02:00 EDT, Height, 73.4 Start Date: 04/28/22 Status: Ordered escitalopram 10 mg oral tablet (1 source) Serotonin Reuptake Inhibitor Start: 12-07-2021 End: 02-05-2022 escitalopram 10 mg oral tablet Dose : 10 mg = 1 tab(s), Oral, qDay, start 0.5 tablet x7 days, then increase to full tablet, # 30 tab(s), 1 Refill(s), Pharmacy: [facility]acy #[id number], 185, cm, 12/07/21 9:52:00 EST, Height, kg, 12/07/21 9:52:00 EST, Dosing Weight Start Date: 12/07/21 Stop Date: 02/05/22 Status: Ordered etodolac 300 mg oral capsule (1 source) Nonsteroidal Anti-inflammatory Drug Start: 09-11-2024 End: 12-10-2024 etodolac 300 mg oral capsule Dose : 300 mg = 1 cap(s), Oral, TID, # 90 cap(s), 2 Refill(s), Pharmacy: [facility], 180, cm, 09/11/24 9:44:00 EST, Height, kg, 09/11/24 9:44:00 EST, Dosing Weight Start Date: 09/11/24 Stop Date: 12/10/24 Status: Ordered ferrous sulfate 325 mg oral tablet (17 sources) Start: 11-13-2024 End: 08-29-2025 ferrous sulfate 325 mg (65 mg elemental iron) oral tablet Dose : 325 mg = 1 tab(s), Oral, BID, # 180 tab(s), 1 Refill(s), Pharmacy: [facility] #[id number], 177, cm, 03/02/25 16:22:00 EDT, Height, kg, 03/02/25 16:22:00 EDT, Dosing Weight Start Date: 03/02/25 Stop Date: 08/29/25 Status: Ordered Medication Dispense Status: Completed Quantity: 180.0 Unit: tab(s) Total Allowed Fills: 2 Fills Dispensed: 0 Start: 11-19-2023 End: 10-13-2024 ferrous sulfate 325 mg (65 m g elemental iron) oral tablet Dose : 325 mg = 1 tab(s), Oral, BID, # 180 tab(s), 1 Refill(s), [id number], 180, cm, 04/16/24 13:44:00 EDT, Height, kg, [...] BID, # 180 tab(s), 1 Refill(s), [id number] 178, cm, 03/28/23 13:16:00 EDT, Height, kg, 03/28/23 13:16:00 EDT, Dosing Weight Start Date: 03/30/23 Stop Date: 09/26/23 Status: Ordered Comment on above: Take 1 tablet by angel th every 12 hours. finasteride 5 mg oral tablet (2 sources) 5-alpha Reductase Inhibitor Start: 05-20-2025 finasteride 5 mg oral tablet Dose : 5 mg = 1 tab(s), Oral, qDay, # 90 tab(s), 1 Refill(s), Pharmacy: [facility] #[id number], 176.5, cm, 05/20/25 13:56:00 EDT, Height, kg, 05/20/25 13:56:00 EDT, Dosing Weight Start Date: 05/20/25 Status: Ordered Medication Dispense Status: Completed Quantity: 90.0 Unit: tab(s) Total Allowed Fills: 2 Fills Dispensed: 0 Start: 06-12-2025 finasteride 5 mg oral tablet Dose : 5 mg = 1 tab(s), Oral, qDay, # 90 tab(s), 0 Refill(s), Pharmacy: [facility] #330, 177, cm, 04/02/25 15:00:00 EDT, Height, kg, 04/02/25 15:00:00 EDT, Dosing Weight Start Date: 04/02/25 Status: Ordered Quantity: 90.0 Unit: tab(s) Repeat number: 1 gabapentin 400 mg oral capsule (20 sources) Anti-epileptic Agent Start: 04-02-2025 End: 08-18-2025 gabapentin 400 mg oral capsule Dose : 400 mg = 1 cap(s), Oral, QID, fill on or after 05/31/2025, # 120 cap(s), 2 Refill(s), Pharmacy: [facility] #330, Sciatica, 176.5, cm, 05/20/25 13:56:00 EDT, Height, 68.1, kg, 05/20/25 13:56:00 EDT, Dosing Weight Start Date: 05/20/25 Stop Date: 08/18/25 Status: Ordered Medication Dispense Status: Completed Quantity: 120.0 Unit: cap(s) Total Allowed Fills: 3 Fills Dispensed: 0 Indications: Sciatica, unspecified side; Start: 07-27-2021 End: 11-13-2024 take 1 capsule by mouth four times daily Gabapentin 300 mg capsule Active 300 mg PO 4 TIMES DAILY April 02, 2022 12:00am Gabapentin 300 M G Oral Capsule Quantity: 0 Refills: 0 Ordered: 12-Jan-2021 DO Active Comment on above: Take 1 capsule by [facility] four times daily for 30 days. ibuprofen 400 mg oral tablet (10 sources) Nonsteroidal Anti-inflammatory Drug Start: 03-08-2022 End: 03-10-2022 take 1 tablet by mouth every eight [...] mg/actuat / tiotropium 0.0025 mg/actuat inhalation spray (11 sources) Anticholinergic, beta2-Adrenergic Agonist Start: 03-26-2025 End: 09-22-2025 take 1 dose by inhalation once daily Stiolto Respimat 60 ACT 2.5 mcg-2.5 mcg/inh inhalation aerosol Dose = 2 puff(s), Inhalation, qDay, # 3 EA, 1 Refill(s), Pharmacy: [facility] #[id number], Chronic obstructive pulmonary disease, 177, cm, 03/26/25 9:32:00 EDT, Height, kg, 03/26/25 9:32:00 EDT, Dosing Weight Start Date: 03/26/25 Stop Date: 09/22/25 Status: Ordered Medication Dispense Status: Completed Quantity: 3.0 Unit: EA Total Allowed Fills: 2 Fills Dispensed: 0 Indications: Chronic obstructive pulmonary disease, unspecified; Start: 06-18-2024 End: 12-15-2024 take 1 dose by inhalation once daily Stiolto Respimat 60 ACT 2.5 mcg-2.5 mcg/inh inhalation aerosol Dose = 2 puff(s), Inhalation, qDay, # 3 EA, 1 Refill(s), Pharmacy: [facility], 180, cm, 04/16/24 13:44:00 EDT, Height, [...] qDay, # 3 EA, 1 Refill(s), [facility]: [facility] #[id number], 180, cm, 11/19/23 13:28:00 EST, Height, kg, 11/19/23 13:28:00 EST, Dosing Weight Start Date: 11/19/23 Stop Date: 05/17/24 Status: Ordered Start: 10-26-2022 End: 04-24-2023 take 1 dose by inhalation once daily Stiolto Respimat 60 ACT 2.5 mcg-2.5 mcg/inh inhalation aerosol Dose = 2 puff(s), Inhalation, qDay, # 3 EA, 1 Refill(s), Pharmacy: [facility] #[id number], 178, cm, 10/26/22 13:53:00 EST, Height, kg, 10/26/22 13:53:00 EST, Dosing Weight Start Date: 10/26/22 Stop Date: 04/24/23 Status: Ordered Start: 09-22-2022 End: 10-22-2022 take 1 dose by inhalation once daily Stiolto Respimat 60 ACT 2.5 mcg-2.5 mcg/inh inhalation aerosol Dose = 2 puff(s), Inhalation, qDay, # 1 EA, 0 Refill(s), Pharmacy: [facility] #[id number], 178, cm, 09/22/22 13:53:00 EST, Height Start Date: 09/22/22 Stop Date: 10/22/22 Status: Ordered Comment on above: INHALE 2 PUFFS DAILY omeprazole 40 mg delayed release oral capsule (20 sources) Proton Pump Inhibitor Start: 11-19-2023 End: 05-17-2024 omeprazole 40 mg oral delayed release capsule Dose : 40 mg = 1 cap(s), Oral, qDay, # 90 cap(s), 1 Refill(s), [facility]: [facility] #[id number], 180, cm, 11/19/23 13:28:00 EST, Height, kg, [...] Start: 01-14-2021 take 1 capsule by mo [facility] once daily before breakfast Omeprazole 20 MG Oral Capsule Delayed Release TAKE 1 CAPSULE BY MOUTH EVERY DAY IN THE MORNING BEFORE BREAKFAST Quantity: 90 Refills: 1 Ordered: 15-Apr-2021 Connie East PA-C Start : 14-Jan-2021 Active Comment on above: Take 40 mg by mouth once daily. pantoprazole 40 mg delayed release oral tablet (10 sources) Proton Pump Inhibitor Start: 05-20-2025 pantoprazole 40 mg oral enteric coated tablet Dose : 40 mg = 1 tab(s), Oral, qDay, # 90 tab(s), 1 Refill(s), Pharmacy: [facility] #330, 176.5, cm, 05/20/25 13:56:00 EDT, Height, kg, 05/20/25 13:56:00 EDT, Dosing Weight Start Date: 05/20/25 Status: Ordered Medication Dispense Status: Completed Quantity: 90.0 Unit: tab(s) Total Allowed Fills: 2 Fills Dispensed: 0 Start: 11-13-2024 take 1 tablet by angel once daily Pantoprazole 40 mg tablet,delayed release (DR/EC) Active 40 mg PO daily November 13, 2024 1:00am Start: 08-15-2024 pantoprazole 4 0 mg oral enteric coated tablet Dose : 40 mg = 1 tab(s), Oral, qDay, stop omeprazole, # 90 tab(s), 1 Refill(s), Pharmacy: [facility], 180, cm, 08/15/24 14:58:00 EDT, Height, kg, 08/15/24 14:58:00 EDT, Dosing Weight Start Date: 08/15/24 Status: Ordered PEG-3350 with Electrolytes (Eqv-GoLYTELY) oral powder for reconstitution (4 sources) Start: 04-16-2024 PEG-3350 with Electrolytes (Eqv-GoLYTELY) oral powder for reconstitution See Instructions, Take as directed 1 day before colonoscopy. Follow instructions as provided by your GI provider at [facility]., # 1 EA, 0 Refill(s), [id number], 180, cm, 04/16/24 13:44:00 EDT, Height, kg, 04/16/24 13:42:00 EDT, Dosing Weight Start Date: 04/16/24 Status: Ordered Medication Dispense Status: Completed Quantity: 1.0 Unit: EA Total Allowed Fills: 1 Fills Dispensed: 0 Start: 04-16-2024 PEG-3350 with Electrolytes (Eqv-GoLYTELY) oral powder for reconstitution See Instructions, Take as directed 1 day before colonoscopy. Follow instructions as provided by your GI provider at [facility]., # 1 EA, 0 Refill(s), Pharmacy: [facility] #[id number], 180, cm, 04/16/24 13:44:00 EDT, Height, kg, 04/16/24 13:42:00 EDT, Dosing Weight Start Date: 04/16/24 Status: Ordered Quantity: 1.0 Unit: EA Repeat number: 1 Start: 04-16-2024 PEG-3350 with Electrolytes (Eqv-GoLYTELY) oral powder for reconstitution See Instructions, Take as directed 1 day before colonoscopy. Follow instructions as provided by your GI provider at [facility]., # 1 EA, 0 Refill(s), Pharmacy: [facility] #[id number], 180, cm, 04/16/24 13:44:00 EDT, Height, kg, 04/16/24 13:42:00 EDT, Dosing Weight Start Date: 04/16/24 Status: Ordered Start: 08-15-2023 PEG-3350 with Electrolytes (Eqv-GoLYTELY) oral powder for reconstitution See Instructions, Take as directed 1 day before colonoscopy. Follow instructions as provided by your GI provider at [facility]., # 1 EA, 0 Refill(s), Pharmacy: [facility] #[id number], 178, cm, 08/15/23 11:10:00 EDT, Height, kg, 08/15/23 11:10:00 EDT, Dosing Weight Start Date: 08/15/23 Status: Ordered polyethylene glycol 3350 88755 mg powder for oral solution (20 sources) Osmotic Laxative Start: 06-28-2022 End: 12-25-2022 polyethylene glycol 3350 (MIRALAX, GLYCOLAX) 17 gram/dose powder 17 GRAMS BY MOUTH TWICE DAILY FOR 90 DAYS 0 08/23/2022 Active Start: 04-27-2022 End: 11-13-2024 Polyethylene Glycol 3350 (Cl earlax) 17 gram/dose powder Active 17 g PO DAILY 119 0 May 31, 2023 12:00am Comment on above: 17 GRAMS BY MOUTH TW ICE DAILY FOR 90 DAYS predniSONE 10 mg oral tablet (20 sources) Start: 11-29-2022 End: 12-18-2022 prednisone 10mg tab (TAPER) 00-17-07-20-10-5mg, Oral, qDay, [id number],0Z7hlfi,1X7ohhm, 3N7oqqs,5T0ctki,0.5X4 days., # 47 tab(s), 0 Refill(s), Pharmacy: [facility] #[id number], 178, cm, 11/16/22 15:20:00 EST, Height [...] stop, # 30 tab(s), 0 Refill(s), [id number], 185.4, cm, 03/08/22 14:07:00 ED... Start [...] psyllium 3400 mg powder for oral suspension (12 sources) Start: 04-02-2025 take 3.4 doses by mouth three times daily as needed for constipation Metamucil 3.4 g/5.2 g oral powder for reconstitution Dose : 3.4 gram(s) =, Oral, TID, PRN as needed for constipation, # 425 gram(s), 1 Refill(s), Pharmacy: [facility] #330, 177, cm, 04/02/25 15:00:00 EDT, Height, kg, 04/02/25 15:00:00 EDT, Dosing Weight Start Date: 04/02/25 Status: Ordered Medication Dispense Status: Completed Quantity: 425.0 Unit: g Total Allowed Fills: 2 Fills Dispensed: 0 Start: 04-16-2024 take 3.4 doses by mo ut three times daily as needed for constipation Metamucil 3.4 g/5.2 g oral powder for reconstitution Dose : 3.4 gram(s) =, Oral, TID, PRN as needed for constipation, # 425 gram(s), 1 Refill(s), Pharmacy: [facility] #[id number], 180, cm, 04/16/24 13:44:00 EDT, Height, kg, 04/16/24 13:42:00 EDT, Dosing Weight Start Date: 04/16/24 Status: Ordered Start: 11-19-2023 take 3.4 doses by [facility] three times daily as needed for constipation Metamucil 3.4 g/5.2 g oral powder for reconstitution Dose : 3.4 gram(s) =, Oral, TID, PRN as needed for constipation, # 425 gram(s), 1 Refill(s), Pharmacy: [facility] #[id number], 180, cm, 11/19/23 13:28:00 EST, Height, kg, 11/19/23 13:28:00 EST, Dosing Weight Start Date: 11/19/23 Status: Ordered Start: 06-27-2023 take 3.4 doses by mo ut three times daily as needed for constipation Metamucil 3.4 g/5.2 g oral powder for reconstitution Dose : 3.4 gram(s) =, Oral, TID, PRN as needed for constipation, # 425 gram(s), 1 Refill(s), Pharmacy: [facility] #[id number], 178, cm, 06/27/23 10:23:00 EDT, Height, kg, 06/27/23 10:23:00 EDT, Dosing Weight Start Date: 06/27/23 Status: Ordered Start: 05-25-2022 take 3.4 doses by mo ut three times daily as needed for constipation Metamucil 3.4 g/5.2 g oral powder for reconstitution Dose : 3.4 gram(s) =, Oral, TID, PRN as needed for constipation, # 425 gram(s), 1 Refill(s), [id number], 178, cm, 05/25/22 13:45:00 EDT, Height Start Date: 05/25/22 Status: Ordered Senna Leaves (3 sources) Start: 03-02-2025 Senna 8.6 mg o ral tablet Dose : 17.2 mg = 2 tab(s), Oral, qHS, PRN as needed for constipation, # 100 tab(s), 2 Refill(s), Pharmacy: [facility] #330, 177, cm, 03/02/25 16:22:00 EDT, Height, kg, 03/02/25 16:22:00 EDT, Dosing Weight Start Date: 03/02/25 Status: Ordered Medication Dispense Status: Completed Quantity: 100.0 Unit: tab(s) Total Allowed Fills: 3 Fills Dispensed: 0 Start: 03-02-2025 Senna 8.6 mg o ral tablet Dose : 17.2 mg = 2 tab(s), Oral, qHS, PRN as needed for constipation, # 100 tab(s), 2 Refill(s), Pharmacy: [facility] #330, 177, cm, 03/02/25 16:22:00 EDT, Height, kg, 03/02/25 16:22:00 EDT, Dosing Weight Start Date: 03/02/25 Status: Ordered Quantity: 100.0 Unit: tab(s) Repeat number: 3 Start: 04-16-2024 Senna 8.6 mg o ral tablet Dose : 17.2 mg = 2 tab(s), Oral, qHS, PRN as needed for constipation, # 100 tab(s), 2 Refill(s), [id number], 180, cm, 04/16/24 13:44:00 EDT, Height, kg, 04/16/24 13:42:00 EDT, Dosing Weight Start Date: 04/16/24 Status: Ordered sennosides, fdc 8.6 mg oral tablet (4 sources) Start: 11-19-2023 senna (sennosi diony) 8.6 mg oral tablet Dose : 17.2 mg = 2 tab(s), Oral, qHS, PRN as needed for constipation, # 100 tab(s), 1 Refill(s), [facility][id number], 180, cm, 11/19/23 13:28:00 EST, Height, kg, 11/19/23 13:28:00 EST, Dosing Weight Start Date: 11/19/23 Status: Ordered Start: 06-27-2023 senna (sennosi diony) 8.6 mg oral tablet Dose : 17.2 mg = 2 tab(s), Oral, qHS, PRN as needed for constipation, # 100 tab(s), 1 Refill(s), Pharmacy: [facility] #[id number], 178, cm, 06/27/23 10:23:00 EDT, Height, [...] day(s), # 20 tab(s), 0 Refill(s), Pharmacy: [facility] #[id number], 185.4, cm, 03/08/22 14:07:00 EDT, Height, 71.1 Start Date: 03/08/22 Stop Date: 03/18/22 Status: Ordered Completed/Discontinued Medications Medication Drug Class(es) Dates Sig (Normalized) Sig (Original) Al-Mg hydroxide-simethicon e (MAALOX) 200-200-20 mg/5 mL 30 mL, lidocaine (XYLOCAINE) 2 % 15 mL (1 source) Start: 02-23-2025 End: 02-23-2025 take 45 mL by mouth once 45 mL, Oral, ONCE, On Sun02/23/25 at 0545, For 1 dose [id number] 200 actuat albuterol 0.09 mg/actuat metered dose [...] 1 tablet by angel th once daily. 1 ml denosumab 60 mg/ml prefilled syringe (5 sources) RANK Ligand Inhibitor Start: 02-28-2023 denosumab 60 mg/mL subcutaneous solution Dose : 60 mg = 1 mL, Subcutaneous, q6mo, # 1 mL, 1 Refill(s) Start Date: 02/28/23 Status: Ordered Medication Dispense Status: Completed Quantity: 1.0 Unit: mL Total Allowed Fills: 2 Fills Dispensed: 0 diphenhydrAMINE hydrochloride 25 mg oral capsule (8 sources) Histamine-1 Receptor Antagonist Start: 2024 End: 11-13-2024 take 1 capsule by mouth three times daily as needed Diphenhydramine Hcl (Benadryl) 25 mg capsule Discontinued 25 mg PO THREE TIMES A DAY as needed for allergic reaction 20 0 2024 12:00am November 13, 2024 3:11pm docusate sodium 100 mg oral capsule (14 sources) Start: 06-28-2022 End: 04-24-2023 take 1 capsule by mouth twice daily as needed for constipation docusate sodium (COLACE) 100 mg capsule TAKE 1 CAPSULE BY MOUTH TWICE A DAY FOR 30 DAYS NEEDED FOR CONSTIPATION 0 08/13/2022 Active Comment on above: TAKE 1 CAPSULE BY [facility] TWICE A DAY FOR 30 DAYS NEEDED FOR CONSTIPATION 120 actuat fluticasone propionate 0.22 mg/actuat metered dose inhaler (4 sources) Corticosteroid Start: 11-19-2023 End: 03-31-2025 take 2 puff(s) by mouth twice daily Flovent HFA 220 mcg/inh inhalation aerosol 2 puff(s), Inhalation, BID, 220 mcg per inh; rinse mouth and throat after use, # 1 EA, 5 Refill(s), Pharmacy: [facility], 180, cm, 10/02/24 9:56:00 EST, Height, kg, 10/02/24 9:56:00 EST, Dosing Weight Start Date: 10/02/24 Stop Date: 03/31/25 Status: Ordered Medication Dispense Status: Completed Quantity: 1.0 Unit: EA Total Allowed Fills: 6 Fills Dispensed: 0 Hydrocortisone (20 sources) Corticosteroid Start: 04-02-2025 End: 05-02-2025 apply 1 dose topically twice daily hydrocortisone 1% topical cream Apply 1 jose d, Topical, BID, # 15 gram(s), 2 Refill(s), Pharmacy: [id number], Cream, 177, cm, 04/02/25 15:00:00 EDT, Height, 67.5, kg, 04/02/25 15:00:00 EDT, Dosing Weight Start Date: 04/02/25 Stop Date: 05/02/25 Status: Ordered Medication Dispense Status: Completed Quantity: 15.0 Unit: g Total Allowed Fills: 3 Fills Dispensed: 0 Start: 04-02-2025 End: 05-02-2025 hydrocortisone 1% topical cr eam Apply 1 jose d, Topical, BID, # 15 gram(s), 2 Refill(s), Pharmacy: [id number], Cream, 177, cm, 04/02/25 15:00:00 EDT, Height, 67.5, kg, 04/02/25 15:00:00 EDT, Dosing Weight Start Date: 04/02/25 Stop Date: 05/02/25 Status: Ordered Quantity: 15.0 Unit: g Repeat number: 3 Start: 04-16-2024 End: 05-16-2024 hydrocortisone 1% topical cr eam Apply 1 jose d, Topical, BID, # 15 gram(s), 2 Refill(s), Pharmacy: [facility] #[id number], Cream, 180, cm, 04/16/24 13:44:00 EDT, Height, 69.4, kg, 04/16/24 13:42:00 EDT, Dosing Weight Start Date: 04/16/24 Stop Date: 05/16/24 Status: Ordered Start: 11-19-2023 End: 12-19-2023 hydrocortisone 1% topical cr eam Apply 1 jose d, Topical, BID, # 15 gram(s), 2 Refill(s), Pharmacy: [facility] #[id number], Cream, 180, cm, 11/19/23 13:28:00 EST, Height, 70.9, kg, 11/19/23 13:28:00 EST, Dosing Weight Start Date: 11/19/23 Stop Date: 12/19/23 Status: Ordered Start: 06-27-2023 End: 07-27-2023 hydrocortisone 1% topical cr eam Apply 1 jose d, Topical, BID, # 15 gram(s), 2 Refill(s), Pharmacy: [facility] #[id number], Cream, 178, cm, 06/27/23 10:23:00 EDT, [...] RC AT BEDTIME April 26, 2022 11:00pm levoFLOXacin 750 mg oral tablet (7 sources) Quinolone Antimicrobial Start: 07-01-20 End: 11-13-19 take 1 tablet by mouth once daily Levofloxacin 750 mg tablet Discontinued 750 mg PO DAILY 14 14 0 July 01, 2024 12:00am November 13, 2024 3:12pm lidocaine 0.05 mg/mg medicated patch (20 sources) Antiarrhythmic, Amide Local Anesthetic Start: 11-05-19 End: 11-13-19 Lidocaine (Lidoderm) 5 % adhesive patch,medicated Discontinued 1 NMA TOPICAL DAILY 15 0 November 05, 2024 1:00am November 13, 2024 [...] mg 2 ml ondansetron 2 mg/ml injection (20 sources) Serotonin-3 Receptor Antagonist Start: 02-23-2025 End: 02-23-2025 take 1 dose intravenously once 4 mg, IV Push, ONCE, 1 dose, On Sun02/23/25 at 0530 Start: 11-25-2024 take 1 tablet by angel th every eight hours as needed for nausea Ondansetron 4 mg tablet,disintegrating Active 4 mg PO EVERY 8 HOURS NEEDED as needed for Nausea 10 November 25, 2024 1:00am Start: 11-05-2024 End: 12-15-2024 take 1 tablet by mouth every six hours as needed for nausea and vomiting Ondansetron 4 mg tablet,disintegrating Discontinued 4 mg PO EVERY 6 HOURS as needed for nausea and vomiting 10 November 05, 2024 1:00am December 15, 2024 11:55am Start: 07-01-2024 End: 11-13-2024 take 1 tablet by mouth every eight hours as needed for nausea Ondansetron 4 mg tablet,disintegrating Discontinued 4 mg PO EVERY 8 HOURS NEEDED as needed for Nausea 10 July 01, 2024 12:00am November 13, 2024 3:13pm Start: 03-08-2022 End: 03-08-2022 ondansetron (ZOFRAN-ODT) dis integrating tablet 4 mg oxyCODONE hydrochloride 5 mg oral tablet (20 sources) Opioid Agonist Start: 07-01-2024 End: 11-13-2024 take 1 tablet by mouth every six hours as needed for pain Oxycodone 5 mg tablet Discontinued 5 mg PO EVERY 6 HOURS as needed for pain 12 3 July 01, 2024 November 13, 2024 3:13pm Acute flank pain Unspecified abdominal pain Start: 10-09-2023 End: 11-13-2024 Oxycodone 10 mg tablet Disco ntinued mg October 09, 2023 1:00am November 13, 2024 3:13pm Start: 10-09-2023 Oxycodone Acti ve MG October 09, 2023 1:00am Start: 07-26-2023 End: 08-25-2023 oxyCODONE IR (ROXICODONE) 10 mg tab Start: 09-16-2022 take 10 mg by mouth three times daily Oxycodone Active 10 MG PO THREE TIMES A DAY 9 September 16, 2022 Start: 08-25-2022 End: 10-22-2022 [...] 6 hours as needed. polyethylene glycol 3350 [id number] mg / potassium chloride 2970 mg / sodium bicarbonate 6740 mg / sodium chloride 5860 mg / sodium sulfate 92605 mg powder for oral solution (2 sources) [...] fracture of second lumbar vertebra, initial encounter ([facility]) 1 Units once daily. Wheeled walker 1 Each 0 02/13/2023 Active Comment on above: 1 Units once daily. Wheeled walker Problems Active Problems Problem Classification Problem Date Documented Da te Episodic/Chronic Acquired foot deformities (3 sources) Foot-drop; Translations: [Foot drop, left foot] 11-18-2024 Episodic Anal and rectal conditions (11 sources) Anal fissure; Translations: [Anal fissure, unspecified] Episodic Comment on above: seen on CT 02/11/23 ( pelvic arteries heavily calcified) Aortic; peripheral; and visceral artery aneurysms (16 sources) Aneurysm 06-09-2018 Chronic Blindness and vision defects (20 sources) Wears glasses 01-19-2021 Episodic Calculus of urinary tract (2 sources) Kidney stone 01-22-2025 Episodic Chronic obstructive pulmonary disease and bronchiectasis (7 sources) Mild chronic obstructive pulmonary disease; Translations: [Pulmonary emphysema] 01-04-2023 Chronic Coronary atherosclerosis and other heart disease (7 sources) Coronary arteriosclerosis; Translations: [Angina pectoris] 01-04-2023 Chronic Deficiency and other anemia (7 sources) Anemia; Translations: [Anemia, unspecified] 11-13-2024 Episodic Digestive congenital anomalies (1 source) Pancreatic duct disorder; Translations: [Other specified diseases of pancreas] Chronic Disorders of lipid metabolism (20 sources) Hypercholesterolemia; Translations: [Hyperlipidemia] Onset: 8 06-09-2018 Chronic E Codes: Fall (20 sources) Fall; Translations: [Unspecified fall, initial encounter] Onset: Episodic Epilepsy; convulsions (20 sources) Epilepsy 08-12-2014 Chronic Esophageal disorders (20 sources) Gastroesophageal reflux disease; Translations: [Gastro-esophageal reflux disease without esophagitis] 03-02-2022 Chronic External Injury - Fall (12 sources) Fall (on) (from) unspecified stairs and steps, initial encounter; Translations: [Fall] Onset: 7 12-07-2021 Fracture of lower limb (7 sources) Fracture of left lower limb; Translations: [Unspecified fracture of left lower leg, initial encounter for closed fracture] 11-13-2024 Episodic Comment on above: Hardware Genitourinary symptoms and ill-defined conditions (20 sources) Nocturia 01-19-2021 Episodic Hemorrhoids (20 sources) Bleeding external hemorrhoids; Translations: [Residual hemorrhoidal skin tags] 05-25-2022 Episodic Hyperplasia of prostate (8 sources) Benign prostatic hypertrophy with outflow obstruction; Translations: [Benign prostatic hyperplasia] 02-21-2023 Chronic Inflammatory conditions of male genital organs (4 sources) Prostatitis 07-02-2024 Episodic Intestinal obstruction without hernia (11 sources) Fecal impaction; Translations: [Fecal impaction of rectum] 05-31-2023 Episodic Intracranial injury (9 sources) Concussion injury of body structure; Translations: [Concussion] 10-09-2023 Episodic Joint disorders and dislocations; trauma-related (5 sources) 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 Mood disorders (20 sources) Depressive disorder; 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] 12-07-2021 Chronic Nonspecific chest pain (3 sources) Chest pain; Translations: [Chest pain, unspecified] Onset: 5 02-23-2025 Episodic Nutritional deficiencies (2 sources)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 shoulder pain Hemorrhoid Epilepsy Sciatica High cholesterol Home Medications ???Medication ???Instructions ???Recorded ???Last Taken ???Type gabapentin 300 mg capsule 300 mg PO 4X/DAY 04/02/22 Unknown History hydrocortisone acetate 25 mg 25 mg [place] QHS #12 ea 04/27/22 Unkno wn Rx [...] Time adhesive tape (tape) AdvReac Rash Verified 03/19/25 09:52 hydrocodone (From [place]) AdvReac Upset Verified 03/19/25 09:52 Stomach ibuprofen AdvReac Upset Verified 03/19/25 09:52 Stomach ketorolac (From Toradol) AdvReac Rash Verified 03/19/25 09:52 meloxicam (From Mobic) AdvReac Muscle Verified 03/19/25 09:52 weakness naproxen AdvReac Rash Verified 03/19/25 09:52 tramadol AdvReac Upset Verified 03/19/25 09:52 Stomach Family History Other Cancer Diabetes Heart disease Surgical History Leg fracture, left S/P clamping of cerebral aneurysm Social History household members: significant other Smoking Status: Former smoker alcohol intake: former substance use type: does not use ROS ROS ED ROS Narrative Denies recent illness. Constitutional Constitutional ED: Denies chills or fever(s) Eyes Eyes: Denies blurry vision ENT ENT ED: Denies ear pain Cardiovascular Cardiovascular: Denies chest pain or palpitations Respiratory/Chest Respiratory/Chest: Denies cough or dyspnea Gastrointestinal Gastrointestinal: Denies abdominal pain Genitourinary Genitourinary ED: Denies dysuria or hematuria Musculoskeletal Musculoskeletal: Denies ba (more content not included)... [facility] Shoulder min 2 Viewson 04-04 Shoulder min 2 Views [facility] Imaging Services [address] [place], [place] [id number] Shoulder min 2 Views MR#: [id number] Acct: [id number] Name: WINSTON MARI Rep #: [id number] : 1955 M 70 From: Mery Ballesteros nd, MD PCP: Dr. Eugenio Mayen DO Status: REG ER Study: Shoulder min 2 Views Date of Exam: 04/04/25 Exam# [id number] Ordering Dr: Ken Mari MD PROCEDURE: SHOULDER MIN 2 VIEWS 04/04/2025 REASON FOR EXAM: SHOULDER PAIN AND INJURY TECHNIQUE: SHOULDER MIN 2 VIEWS COMPARISON: Left shoulder MRI 12/08/2024, left shoulder radiographs 11/25/2024. FINDINGS: Bones: Diffuse osseous demineralization. No acute fracture. Chronic left mid humeral shaft fracture. Joints: Elevated humeral head, compatible with known rotator cuff injury. Degenerative changes of the acromioclavicular and glenohumeral joints. Soft tissues: Soft tissues are unremarkable. RAD/Shoulder min 2 Views IMPRESSION: DEGENERATIVE OSTEOARTHROSIS. NO ACUTE FINDINGS. Reading Location: [id number] CC: Dr. Ken Mari MD; Dr. Eugenio Mayen DO Building Construction Foreman: Signed [facility] XR SHOULDER MINIMUM 2 VIEWS LEFTon 04-02-2025 XR SHOULDER MINIMUM 2 VIEWS LEFT ORIGINAL EXAMINATION: TWO XRAY VIEWS OF THE [...] Date: 04/02/2025 4:24:43 PM Ordering Provider: EUGENIO MAYEN [facility] L/S Spine Bending Flex/[place] 03-19-2025 L/S Spine Bending Flex/Ext [facility] Imaging Services [address] [place] [id number] L/S Spine Bending Flex/Ext MR#: [id number] Acct: [id number] Name: WINSTON MARI Rep #: [id number] : 1955 M 70 From: Doug Martinez MD PCP: Dr. Eugenio Mayen, Status: DEP AMB Study: L/S Spine Bending Flex/Ext Date of Exam: 03/19 Exam# [id number] Ordering Dr: Aiyana Campbell PROCEDURE: L/S SPINE [...] Flexion and extension as above. Reading Location: [id number] CC: NIKI Rock; Dr. Eugenio Mayen DO Building Construction Foreman: Signed [facility] Orthopedic Visit Reporton Orthopedic Visit Report [facility] [place] [address] OFFICE VISIT Date of Service: 03/19/25 MR#: [id number] Acct: [id number] Name: WINSTON MARI Rep #: [id number] : 1955 Provider: NIKI Rock Age/Sex: 70/M Location[place] [facility] Status: Signed Intake Vital Signs 01/03/25 16:39 Height 5 ft 11 in Intake Visit Reasons: LUMBAR SPINE Allergies adhesive tape (tape) Adverse Reaction (Verified 03/19/25 09:52) Rash hydrocodone (From [place]) Adverse Reaction (Verified 03/19/25 09:52) Upset Stomach [...] History hydrocortisone acetate 25 mg 25 mg [place] QHS #12 ea 04/27/2203/19 Rx rectal suppository [...] decisions made by me, NIKI Rock 03/19/25 3916. Part of today???s visit was documented by [...] L2 and L4 and was sent to [facility] for 3-4 days. He was then recommended to have a kyphoplasty but he refused it because of the chance of it leaking out and getting into his bloodstream. He then had a recent fall when he fell off a 10ft ladder trying to fix a light on a [employer] go round and fractured L1. He was [...] seen pain management in the past at [facility]. Worsening pain over the last week with [...] CERVICAL THORACIC (more content not included)... [facility] BASIC METABOLIC PANELon 05-0 Anion gap [Moles/Vol] 7 mmol/L Normal 7-16 [facility] Comment on above: Order Comment: KDIGO 2012 GFR Categories Stage Description eGFR (mL/min/1.73m2) G1 Normal or high >=90 G2 Mildly decreased 60-89 G3a Mildly to moderately decreased 45-59 G3b Moderately to severely decreased 30-44 G4 Severely decreased 15-29 G5 Kidney Failure <15 Release to patient->Immediate Performed By: #### L AB15 #### [facility] [address] [place] [id number] [facility] Calcium [Mass/Vol] 9.5 mg/dL Normal 8.6-10.2 [facility] Comment on above: Order Comment: KDIGO 2012 GFR Categories Stage Description eGFR (mL/min/1.73m2) G1 Normal or high >=90 G2 Mildly decreased 60-89 G3a Mildly to moderately decreased 45-59 G3b Moderately to severely decreased 30-44 G4 Severely decreased 15-29 G5 Kidney Failure <15 Release to patient->Immediate Performed By: #### L AB15 #### [address] Chloride [Moles/Vol] 104 mmol/L Normal 98-107 [facility] Comment on above: Order Comment: KDIGO 2012 GFR Categories Stage Description eGFR (mL/min/1.73m2) G1 Normal or high >=90 G2 Mildly decreased 60-89 G3a Mildly to moderately decreased 45-59 G3b Moderately to severely decreased 30-44 G4 Severely decreased 15-29 G5 Kidney Failure <15 Release to patient->Immediate Performed By: #### L AB15 #### [address] CO2 [Moles/Vol] 27 mmol/L Normal 21-31 [facility] Comment on above: Order Comment: KDIGO 2012 GFR Categories Stage Description eGFR (mL/min/1.73m2) G1 Normal or high >=90 G2 Mildly decreased 60-89 G3a Mildly to moderately decreased 45-59 G3b Moderately to severely decreased 30-44 G4 Severely decreased 15-29 G5 Kidney Failure <15 Release to patient->Immediate Performed By: #### L AB15 #### [address] Creatinine [Mass/Vol] 0.93 mg/dL Normal 0.7-1.3 [facility] Comment on above: Order Comment: KDIGO 2012 GFR Categories Stage Description eGFR (mL/min/1.73m2) G1 Normal or high >=90 G2 Mildly decreased 60-89 G3a Mildly to moderately decreased 45-59 G3b Moderately to severely decreased 30-44 G4 Severely decreased 15-29 G5 Kidney Failure <15 Release to patient->Immediate Performed By: #### L AB15 #### [place] [id number] [facility] GFR/1.73 sq M.predicted among non-blacks MDRD (S/P/Bld) [Vol rate/Area] 89 mL/min/{1.73_m2} Normal >90 [facility] Comment on above: Order Comment: KDIGO [...] coefficient. Performed By: #### L AB15 #### [address] Glucose [Mass/Vol] 97 mg/dL Normal 74-109 [facility] Comment on above: Order Comment: KDIGO 2012 GFR Categories Stage Description eGFR (mL/min/1.73m2) G1 Normal or high >=90 G2 Mildly decreased 60-89 G3a Mildly to moderately decreased 45-59 G3b Moderately to severely decreased 30-44 G4 Severely decreased 15-29 G5 Kidney Failure <15 Release to patient->Immediate Performed By: #### L AB15 #### [address] Potassium [Moles/Vol] 3.7 mmol/L Normal 3.5-5.1 [facility] Comment on above: Order Comment: KDIGO 2012 GFR Categories Stage Description eGFR (mL/min/1.73m2) G1 Normal or high >=90 G2 Mildly decreased 60-89 G3a Mildly to moderately decreased 45-59 G3b Moderately to severely decreased 30-44 G4 Severely decreased 15-29 G5 Kidney Failure <15 Release to patient->Immediate Performed By: #### L AB15 #### [address] Sodium [Moles/Vol] 138 mmol/L Normal 136-145 [facility] Comment on above: Order Comment: KDIGO 2012 GFR Categories Stage Description eGFR (mL/min/1.73m2) G1 Normal or high >=90 G2 Mildly decreased 60-89 G3a Mildly to moderately decreased 45-59 G3b Moderately to severely decreased 30-44 G4 Severely decreased 15-29 G5 Kidney Failure <15 Release to patient->Immediate Performed By: #### L AB15 #### [place] [id number] [facility] Urea nitrogen [Mass/Vol] 21 mg/dL Normal 7-25 [facility] Comment on above: Order Comment: KDIGO 2012 GFR Categories Stage Description eGFR (mL/min/1.73m2) G1 Normal or high >=90 G2 Mildly decreased 60-89 G3a Mildly to moderately decreased 45-59 G3b Moderately to severely decreased 30-44 G4 Severely decreased 15-29 G5 Kidney Failure <15 Release to patient->Immediate Performed By: #### L AB15 #### [facility] [address] [place] [address] [facility] Basic Metabolic PanelOrdered By: Background Lab on 02-23-2025 Anion gap 4 (S/P/Bld) [Moles/Vol] 7 mmol/L 7 - 16 mmol/L [facility] Calcium (Bld) [Mass/Vol] 9.5 mg/dL 8.6 - 10.2 mg/dL [facility] Chloride (S/P/Bld) [Moles/Vol] 104 mmol/L 98 - 107 mmol/L [facility] CO2 (S/P/Bld) [Moles/Vol] 27 mmol/L 21 - 31 mmol/L [facility] Creatinine [Mass/Vol] 0.93 mg/dL 0.70 - 1.30 mg/dL [facility] GFR Male 89 - PINF [facility] Comment on above: Reported eGFR is bas ed on the CKD-EPI 2020 equation that does not use a race coefficient. Glucose [Mass/Vol] 97 mg/dL 74 - 109 mg/dL [facility] Potassium (S/P/Bld) [Moles/Vol] 3.7 mmol/L 3.5 - 5.1 mmol/L [facility] Sodium (S/P/Bld) [Moles/Vol] 138 mmol/L 136 - 145 mmol/L [facility] Urea nitrogen [Mass/Vol] 21 mg/dL 7 - 25 mg/dL [facility] KDIGO 2012 GFR Categories Stage Description eGFR (mL/min/1.73m2) G1 Normal or high >=90 G2 Mildly decreased 60-89 G3a Mildly to moderately decreased 45-59 G3b Moderately to severely decreased 30-44 G4 Severely decreased 15-29 G5 Kidney Failure <15 [facility] CBC W/DIFFon 02-23-2025 BASOPHILS ABS AUTO 0.1 K/uL Normal 0.0-0.1 [facility] Comment on above: Order Comment: Relea se to patient->Immediate Performed By: #### L [id number] #### [address] Basophils/100 WBC (Bld) 0.7 % Normal [facility] Comment on above: Order Comment: Relea se to patient->Immediate Performed By: #### L [id number] #### [address] Eosinophils (Bld) [#/Vol] 0.2 10*3/uL Normal 0.0-0.4 [facility] Comment on above: Order Comment: Relea se to patient->Immediate Performed By: #### L [id number] #### [address] Eosinophils/100 WBC (Bld) 2.5 % Normal [facility] Comment on above: Order Comment: Relea se to patient->Immediate Performed By: #### L [id number] #### [address] Erythrocyte distribution width (RBC) [Ratio] 14.4 % Normal 11.7-15.2 [facility] Comment on above: Order Comment: Relea se to patient->Immediate Performed By: #### L [id number] #### [address] Hematocrit (Bld) [Volume fraction] 36.2 % Abnormal 39.0-51.5 [facility] Comment on above: Order Comment: Relea se to patient->Immediate Performed By: #### L [id number] #### [address] Hemoglobin (Bld) [Mass/Vol] 12.4 g/dL Abnormal 13.1-17.6 [facility] Comment on above: Order Comment: Relea se to patient->Immediate Performed By: #### L [id number] #### [address] Lymphocytes (Bld) [#/Vol] 1.2 10*3/uL Normal 0.8-3.6 [facility] Comment on above: Order Comment: Relea se to patient->Immediate Performed By: #### L [id number] #### [address] Lymphocytes/100 WBC (Bld) 12.8 % Normal [facility] Comment on above: Order Comment: Relea se to patient->Immediate Performed By: #### L [id number] #### [address] MCH (RBC) [Entitic mass] 30.9 pg Normal 28.4-33.4 [facility] Comment on above: Order Comment: Relea se to patient->Immediate Performed By: #### L [id number] #### [address] MCHC (RBC) [Mass/Vol] 34.2 g/dL Normal 31.1-37.0 [facility] Comment on above: Order Comment: Relea se to patient->Immediate Performed By: #### L [id number] #### [address] MCV (RBC) [Entitic vol] 90.3 fL Normal 85.0-99.0 [facility] Comment on above: Order Comment: Relea se to patient->Immediate Performed By: #### L [id number] #### [address] Monocytes (Bld) [#/Vol] 0.6 10*3/uL Normal 0.3-0.9 [facility] Comment on above: Order Comment: Relea se to patient->Immediate Performed By: #### L [id number] #### [address] Monocytes/100 WBC (Bld) 6.7 % Normal [facility] Comment on above: Order Comment: Relea se to patient->Immediate Performed By: #### L [id number] #### [address] NEUTROPHIL ABS AUTO 7.4 K/uL Abnormal 2.0-7.3 [facility] Comment on above: Order Comment: Relea se to patient->Immediate Performed By: #### L [id number] #### [address] Neutrophils/100 WBC (Bld) 77.3 % Normal [facility] Comment on above: Order Comment: Relea se to patient->Immediate Performed By: #### L [id number] #### [address] Platelets (Bld) [#/Vol] 369 10*3/uL Normal 154-393 [facility] Comment on above: Order Comment: Relea se to patient->Immediate Performed By: #### L [id number] #### [address] RBC (Bld) [#/Vol] 4.01 10*6/uL Abnormal 4.30-5.86 [facility] Comment on above: Order Comment: Relea se to patient->Immediate Performed By: #### L [id number] #### [address] WBC (Bld) [#/Vol] 9.6 10*3/uL Normal 4.0-10.5 [facility] Comment on above: Order Comment: Relea se to patient->Immediate Performed By: #### L [id number] #### [address] CBC w/ [facility] Basophils (Bld) [#/Vol] 0.1 10*3/uL 0.0 - 0.1 K/uL [facility] Basophils/100 WBC (Bld) 0.7 % [facility] Eosinophils (Bld) [#/Vol] 0.2 10*3/uL 0.0 - 0.4 K/uL [facility] Eosinophils/100 WBC (Bld) 2.5 % [facility] Erythrocyte distribution width (RBC) [Ratio] 14.4 % 11.7 - 15.2 % [facility] Hematocrit (Bld) [Volume fraction] 36.2 % Abnormal 39.0 - 51.5 % [facility] Hemoglobin (Bld) [Mass/Vol] 12.4 g/dL Abnormal 13.1 - 17.6 g/dL [facility] Interpretation and review of laboratory results Abnormal [facility] Lymphocytes (Bld) [#/Vol] 1.2 10*3/uL 0.8 - 3.6 K/uL [facility] Lymphocytes/100 WBC (Bld) 12.8 % [facility] MCH (RBC) [Entitic mass] 30.9 pg 28.4 - 33.4 pg [facility] MCHC (RBC) [Mass/Vol] 34.2 g/dL 31.1 - 37.0 g/dL [facility] MCV (RBC) [Entitic vol] 90.3 fL 85.0 - 99.0 fl [facility] Monocytes (Bld) [#/Vol] 0.6 10*3/uL 0.3 - 0.9 K/uL [facility] Monocytes/100 WBC (Bld) 6.7 % [facility] Neutrophils (Bld) [#/Vol] 7.4 10*3/uL Abnormal 2.0 - 7.3 K/uL [facility] Neutrophils/100 WBC (Bld) 77.3 % [facility] Platelets (Bld) [#/Vol] 369 10*3/uL 154 - 393 K/uL [facility] RBC (Bld) [#/Vol] 4.01 10*6/uL Abnormal [facility] WBC (Bld) [#/Vol] 9.6 10*3/uL 4.0 - 10.5 K/uL [facility] ED Provider Noteson 02-24-20 ED Provider Notes Encounter Department : [facility] EMERGENCY ED Provider Notes by Go Rice MD at 02/23/2025 4:48 AM Author: JOSE ALEJANDRO Villaltaervice: -Author Type: ED Physician Filed: 02/23/2025 6:07 AMDate of Service: 02/23/2025 4:48 AMStatus: Signed Plating Equipment Tender: Go Rice MD (ED Physician) FINAL IMPRESSION(S) [...] off of the board [facility]. He states that he fell twice off [...] 157/80 Temp97.7 ?F (36.5 ?C) Pulse60 Resp16 KvN522 % Kpvcjr031 lb (72.1 kg) Geno Coma Scale Score15 [...] EKG Standard 12 lead ResultValueRef Range Heart Lfbk94umr RR INTERVAL1,056ms [place] Chhffbkv647qy QRSD Tmtvfeop75tf QT Czjcbrhr984qa QTc Vddifwuz904bd QRS [place]-20deg T Wave Euqe41ptr REPORT- NORMAL ECG - REPORTSinus rhythm Interpreting Phys Confirmed by: Go Rice) 23-Feb-2025 04:31:11 RADIOLOGY I have personally visualized the images and my interpretation is no acute chest abnormality I reviewed the radiologist interpretation: Results for orders placed or performed during the hospital encounter of 02/23/25 [place] [id number] [place] [id number] 02/23/2025 5:51 AM Reason for exam:leg pain [...] XR-CHEST PORTABLE STAT Narrative XR-CHEST PORTABLE STAT [id number] 02/23/2025 5:04 AM History: chest pain History: Chest Pain; Leg Pain. Number of Series/Images: 1. Comparison: None Findings: Single mobile view of the chest demonstrates normal cardiomediastinal silhouette with midline trachea and clear ry (more content not included)... Normal [facility] EKG STANDARD 12 LEADon 02-23 EKG STANDARD 12 LEAD HEART RATE= 57 bpm RR Interval= 1056 ms P-R Interval= 196 ms QRSD Interval= 80 ms QT Interval= 396 ms QTcB= 385 ms QRS [place]= -20 deg T Wave [place]= 61 deg Report= - NORMAL ECG - Report= Sinus rhythm INTERPRETING PHYS= Confirmed by: Go Rice) 23-Feb-2025 04:31:11 Normal [facility] EKG Standard 12 leadon 02-23 Heart rate 57 /min bpm [facility] Interpreting Phys Confirmed by: Go Adame) 23-Feb-2025 04:31:11 [facility] [place] Interval 196 ms [facility] QRS [place] -20 deg [facility] QRSD Interval 80 ms [facility] QT Interval 396 ms [facility] QTc Interval 385 ms [facility] REPORT - NORMAL ECG - [facility] REPORT Sinus rhythm [facility] RR INTERVAL 1056 ms [facility] T Wave [place] 61 deg [facility] HS TROPONIN Ion 02-23-2025 HS TROPONIN I 11 pg/mL Normal <20 [facility] Comment on above: Order Comment: The A ccess high sensitivity troponin assay is not intended to be used in isolation; results should be interpreted in conjunction with other diagnostic tests and clinical information. Is this patient low risk* or onset of CP >3 Hours?->Yes Release to patient->Immediate Performed By: #### L [id number] #### [address] [address] HS Troponin Ion 02-23-2025 Interpretation and review of laboratory results Normal [facility] Troponin I.cardiac High sensitivity method [Mass/Vol] 11 pg/mL NINF - 20 pg/mL [facility] The Access high sensitivity troponin assay is not intended to be used in isolation; results should be interpreted in conjunction with other diagnostic tests and clinical information. [facility] Portable XR Chest Viewson PULMONARY HYPERINFLA TION WITH NO ACUTE PROCESS SEEN. Workstation ID:[id number] Electronically Signed by: Jun Bro M.D., 02/23/2025 5:05 AM [facility] XR-CHEST PORTABLE ST AT [id number] 02/23/2025 5:04 AM History: chest pain History: Chest Pain; Leg Pain. Number of Series/Images: 1. Comparison: None Findings: Single mobile view of the chest demonstrates normal cardiomediastinal silhouette with midline trachea and clear lung barry bilaterally. Lungs appear somewhat hyperinflated. [facility] Jun Bro MD - 02/23/2025 XR-CHEST PORTABLE STAT [id number] 02/23/2025 5:04 AM History: chest pain History: Chest Pain; Leg Pain. Number of Series/Images: 1. Comparison: None Findings: Single mobile view of the chest demonstrates normal cardiomediastinal silhouette with midline trachea and clear lung barry bilaterally. Lungs appear somewhat hyperinflated. IMPRESSION: PULMONARY HYPERINFLATION WITH NO ACUTE PROCESS SEEN. Workstation ID:[id number] Electronically Signed by: Jun Bro M.D., 02/23/2025 5:05 AM [facility] Radiology Study observation (narrative) [facility] Portable XR Chest ViewsOrder ed By: Jun Bro on 02-23-2025 [facility] Work Phone: US.doppler Lower extremity v ein - righton 02-23-2025 1. NO EVIDENCE OF DE EP VENOUS THROMBOSIS IN THE RIGHT LOWER EXTREMITY. 2. NO REFLUX WAS DEMONSTRATED. Workstation ID:[id number] Electronically Signed by: Jun Bro M.D., 02/23/2025 5:59 AM [facility] [place] [id number] 02/23/2025 5:51 AM Reason for exam:leg pain amd swelling Reason for Exam: leg pain amd swelling. Duplex ultrasound examination of the deep venous system of the right lower extremity including evaluation of the common femoral vein, femoral vein, popliteal vein, posterior tibial veins, and peroneal veins. It demonstrated good compressibility and augmentation without reflux throughout. No luminal thrombus was demonstrated. [facility] Jun Bro MD - 02/23/2025 [place] [id number] 02/23/2025 5:51 AM Reason for exam:leg pain [...] by: Jun Bro M.D., 02/23/2025 5:59 AM [facility] Radiology Study observation (narrative) [facility] VAS-DUP VEIN LOWER DVT RT [id number] 02-23-2025 [place] [id number] A result will not be generated for this exam. [place] [id number] 02/23/2025 5:51 AM Reason for exam:leg pain [...] Jun Bro M.D., 02/23/2025 5:59 AM Normal [facility] XR-CHEST PORTABLE [place] XR-CHEST PORTABLE STAT A result will not be generated for this exam. XR-CHEST PORTABLE STAT [id number] 02/23/2025 5:04 AM History: chest pain History: Chest Pain; Leg Pain. Number of Series/Images: 1. Comparison: None Findings: Single mobile view of the chest demonstrates normal cardiomediastinal silhouette with midline trachea and clear lung barry bilaterally. Lungs appear somewhat hyperinflated. IMPRESSION: IMPRESSION: PULMONARY HYPERINFLATION WITH NO ACUTE PROCESS SEEN. Workstation ID:[id number] Electronically Signed by: Jun Bro M.D., 02/23/2025 5:[address] [facility] MRA/MRI BRAIN W/O CONTRASTon 01-28-2025 MRA/MRI BRAIN W/O CONTRAST ORIGINAL EXAMINATION: MRI OF THE BRAIN WITHOUT CONTRAST AND MRA HEAD WITHOUT CONTRAST 01/23/2025 11:35 am TECHNIQUE: Multiplanar multisequence MRI of the brain was performed without the administration of intravenous contrast. MRA of the head was performed utilizing [id number] imaging with MIP images. No intravenous contrast [...] is identified on today's examination. Interpreted by: Nicolás Hurtado Preliminary Report By: Nicolás Hurtado Electronically signed By Nicolás Hurtado Dictated Date: 01/28/2025 5:12:43 AM Prelim Date: 01/28/2025 5:17:06 AM Sign Date: 01/28/2025 5:17:06 AM Ordering Provider: EUGENIO MAYEN [facility] MRI KIDNEYon 01-27-2025 MRI KIDNEY ORIGINAL EXAMINATION: [...] Date: 01/27/2025 1:15:03 PM Ordering Provider: EUGENIO MAYEN [facility] CT ABDOMEN/PELVIS W/O CONTRA STojosue 01-08-2025 CT ABDOMEN/PELVIS W/O CONTRAST ORIGINAL EXAMINATION: [...] 4:19:21 PM Ordering Provider: EUGENIO MAYEN Normal [facility] 01-08-2025 Color (U) Yellow Normal [facility] Comment on above: Order Comment: run c ulture Performed By: #### U A #### [address] [address] Glucose (U) [Mass/Vol] Negative Normal Negative [facility] Comment on above: Order Comment: run c ulture Performed By: #### U A #### [address] [place], [place] [address] Ketones Ql (U) Negative Normal Negative [facility] Comment on above: Order Comment: run c ulture Performed By: #### U A #### [place] [address] UA Appear Clear Normal Clear [facility] Comment on above: Order Comment: run c ulture Performed By: #### U A #### [place] [address] UA Blood Trace Abnormal Negative [facility] Comment on above: Order Comment: run c ulture Performed By: #### U A #### [place] [address] UA Leuk Est Negative Normal Negative [facility] Comment on above: Order Comment: run c ulture Performed By: #### U A #### [place] [address] UA Nitrite Negative Normal Negative [facility] Comment on above: Order Comment: run c ulture Performed By: #### U A #### [place] [address] UA pH 7.0 Normal 5.0 - 8.0 [facility] Comment on above: Order Comment: run c ulture Performed By: #### U A #### [place] [address] UA Protein Negative Normal Negative [facility] Comment on above: Order Comment: run c ulture Performed By: #### U A #### [place] [address] UA Spec Grav 1.020 Normal 1.015-1.02 5 [facility] Comment on above: Order Comment: run c ulture Performed By: #### U A #### [place] [address] UA Specimen Type Clean Catch Normal [facility] Comment on above: Order Comment: run c ulture Performed By: #### U A #### [place] [address] UA Urobilinogen 0.2 E.U./dL Normal 0.2-1.0 [facility] Comment on above: Order Comment: run c ulture Performed By: #### U A #### [facility] [address] [place], [place] [address] Urobilinogen (U) [Mass/Vol] Negative Normal Negative [facility] Comment on above: Order Comment: run c ulture Performed By: #### U A #### [facility] [address] [place], [place] [address] Bilirubin Test strip Ql (U)O rdered By: Irene Franks on 01-03-2025 Bilirubin Ql (U) Negative Negative [facility] Emergency Department Summary on 01-03-2025 Emergency Department Summary [facility] Medical Records Department [address] [facility] [place] [address] Emergency Department Summary 01/03/25 MR#: [id number] Acct: [id number] Name: WINSTON MARI Rep #: [id number] : 1955 69 From: Ireen PRINCE PCP: Dr. Eugenio Mayen DO Status:REG [...] penile discharge. No fever chills or vomiting. [facility] Medical History Left rotator cuff tear Anemia GERD (gastroesophageal reflux disease) Left shoulder pain Hemorrhoid Epilepsy Sciatica High cholesterol Home Medications ???Medication ???Instructions ???Recorded ???Last Taken ???Type gabapentin 300 mg capsule 300 mg PO 4X/DAY 04/02/22 Unknown History hydrocortisone acetate 25 mg 25 mg [place] QHS #12 ea 04/27/22 Unkno wn Rx [...] AdvReac Rash Verified 01/03/25 16:39 hydrocodone (From [place]) AdvReac Upset Verified 01/03/25 16:39 Stomach ibuprofen [...] male has (more content not included)... Normal [facility] Epithelial cells.squamous LM Ql (Urine sed)Ordered By: Irene Franks on 01-03-2025 Epithelial cells.squamous LM.HPF (Urine sed) [#/Area] 0 /[HPF] 0-5 [facility] Glucose Ql (U)Ordered By: Mariely Franks on 01-03-2025 Urine Glucose (UA) Normal mg/dl Normal [facility] Ketones Test strip Ql (U)Ord ered By: Irene Franks on 01-03-2025 Ketones Ql (U) Negative Negative [facility] Microscopic analysis of urin e for red blood cells (RBC)Ordered By: Irene Franks on 01-03-2025 Microscopic analysis of urine for red blood cells (RBC) 0-5 SEEN /hpf 0-5 [facility] Urine RBC 0-5 SEEN /hpf 0-5 [facility] Mucus LM Ql (Urine sed)Order ed By: Irene Franks on 01-03-2025 Mucus Ql (Urine sed) 1+ /hpf [facility] Nitrite Test strip Ql (U)Ord ered By: Irene Franks on 01-03-2025 Nitrite Ql (U) Negative Negative [facility] Protein Test strip Ql (U)Ord ered By: Irene Franks on 01-03-2025 Protein Ql (U) Negative Negative [facility] Squamous epithelial cells de tection in urine sediment by light microscopyOrdered By: Irene Franks on 01-03-2025 Epithelial cells.squamous LM Ql (Urine sed) 0-5 SEEN /hpf 0-5 [facility] Transitional cells LM Ql (Ur ine sed)Ordered By: Irene Franks on 01-03-2025 Urine Transitional Epithelial Cells 0-5 SEEN /hpf 0-5 [facility] Transitional cells detection in urine sediment by light microscopyOrdered By: Irene Franks on 01-03-2025 Transitional cells LM Ql (Urine sed) 0-5 SEEN /hpf 0-5 [facility] Urinalysis, Completeon 01-03 Mucus Ql (Urine sed) 1+ /hpf Normal [facility] Comment on above: Order Comment: ZANDRA TORIBIO TO SPECIFY Performed By: #### L 400.0001 #### [facility] [address] [place], [place], [id number] BACTERIA 2+ /hpf Normal None Seen [facility] Comment on above: Order Comment: ZANDRA TENORIOOR TO SPECIFY Performed By: #### L 400.0001 #### [facility] [address] [place], [address] EPI,SQUAMOUS 0-5 SEEN Normal 0-5 [facility] Comment on above: Order Comment: ZANDRA TENORIOOR TO SPECIFY Performed By: #### L 400.0001 #### [facility] [address] [place], [address] EPI,TRANSITION 0-5 SEEN Normal 0-5 [facility] Comment on above: Order Comment: ZANDRA CTOR TO SPECIFY Performed By: #### L 400.0001 #### [facility] [address] [place], [place], [id number] RBC 0-5 SEEN Normal 0-5 [facility] Comment on above: Order Comment: ZANDRA CTOR TO SPECIFY Performed By: #### L 400.0001 #### [facility] [address] [place], [address] WBC 0 SEEN Normal 0-5 [facility] Comment on above: Order Comment: ZANDRA CTOR TO SPECIFY Performed By: #### L 400.0001 #### [facility] [address] [place], [place], [id number] Urine blood detectionOrdered By: Irene Franks on 01-03-2025 Urine Occult Blood 25 /ul High Negative [facility] Urine clarityOrdered By: Nolvia Franks on 01-03-2025 Clarity (U) Clear Clear [facility] Urine color determinationOrd ered By: Irene Franks on 01-03-2025 Color (U) Yellow Yellow [facility] Urine glucose detectionOrder ed By: Irene Franks on 01-03-2025 Glucose Ql (U) Normal mg/dl Normal [facility] Urine leukocyte esterase det ection by dipstickOrdered By: Irene Franks on 01-03-2025 Leukocyte esterase Test strip Ql (U) Negative Negative [facility] Urine pHOrdered By: Irene cain on 01-03-2025 pH (U) 7.0 [pH] 5.0 - 8.0 [facility] Urine sediment bacteria coun t by microscopy (number/high power field)Ordered By: Irene Franks on 01-03-2025 Bacteria LM.HPF (Urine sed) [#/Area] 2 /[HPF] None Seen [facility] Urine specific gravity measu rementOrdered By: Irene Franks on 01-03-2025 Specific gravity (U) [Rel density] 1.010 1.002-1.03 0 [facility] Urine urobilinogen measureme ntOrdered By: Irene Franks on 01-03-2025 Urobilinogen Ql (U) 1 mg/dl High Normal [facility] Urobilinogen Ql (U)Ordered B y: Irene Franks on 01-03-2025 Urobilinogen (U) [Mass/Vol] 1 mg/dL High Normal [facility] White blood cell countOrdere d By: Irene Franks on 01-03-2025 Urine WBC 0 SEEN /hpf 0-5 [facility] White blood cell count 0 SEEN /hpf 0-5 [facility] Abdomen/Pelvis without Conto n 01-01-2025 Abdomen/Pelvis without Cont [facility] Imaging Services [address] [place], [place] [address] Abdomen/Pelvis without Cont MR#: [id number] Acct: [id number] Name: WINSTON MARI Rep #: [id number] : 1955 M 69 From: Patricia Del Cid MD PCP: Dr. Eugenio Mayen, Status: [facility] ER Study: Abdomen/Pelvis without Cont Date of Exam: 12/20 01/13 Exam# [id number] Ordering Dr: Dean Del Cid DO EXAM: [...] Colonic diverticulosis without acute diverticulitis. Reading Location: [facility] CC: Dr. Eugenio Mayen DO; Dr. Dean Del Cid, DO Building [employer]: Signed Normal [facility] Absolute lymphocyte countOrd ered By: Dean Del Cid on 01-01-2025 Lymphocytes Auto (Unsp spec) [#/Vol] 1.67 10*3/uL 0.83-4.51 [facility] Absolute neutrophil countOrd ered By: eDan Del Cid on 01-01-2025 Neutrophils (Bld) [#/Vol] 3.1 10*3/uL 2.0-7.7 [facility] Anion gap in Serum or Plasma Ordered By: Dean Del Cid on 01-01-2025 Anion gap [Moles/Vol] 8 mmol/L 5-15 [facility] Automated lymphocyte count a s percentage of total leukocytesOrdered By: Dean Del Cid on 01-01-2025 Lymphocytes/100 WBC Auto (Unsp spec) 28.4 % 19-41 [facility] BUN/creatinine ratioOrdered By: Dean Del Cid on 01-01-2025 Urea nitrogen/Creatinine [Mass ratio] 22.3 mg/mg High - [facility] Basic Metabolic Profile (BMP )on 01-01-2025 BUN/CRE 22.3 RATIO High 08-10 [facility] Comment on above: Performed By: #### L 500.2500, L100.0100 ####[facility] [address] [place], [place], [id number] Calcium [Mass/Vol] 9.0 mg/dL Normal 7.6-11.0 [facility] Comment on above: Performed By: #### L 500.2500, L100.0100 ####[facility] [address] [place], [address] Chloride [Moles/Vol] 104 mmol/L Normal 98-108 [facility] Comment on above: Performed By: #### L 500.2500, L100.0100 ####[facility] [address] [place], [address] CO2 [Moles/Vol] 25.1 mmol/L Normal 21.0-32.0 [facility] Comment on above: Performed By: #### L 500.2500, L100.0100 ####[facility] [address] [place], [address] Creatinine [Mass/Vol] 0.93 mg/dL Normal 0.70-1.20 [facility] Comment on above: Performed By: #### L 500.2500, L100.0100 ####[facility] [address] [place], [address] ECRCL 77.55 ml/min Normal 50-250 [facility] Comment on above: Performed By: #### L 500.2500, L100.0100 ####[facility] [address] [place], [address] GAP 8 Normal 5-15 [facility] Comment on above: Performed By: #### L 500.2500, L100.0100 ####[facility] [address] [place], [address] GFR/1.73 sq M.predicted among non-blacks MDRD (S/P/Bld) [Vol rate/Area] 90 mL/min/{1.73_m2} Normal >60 [facility] Comment on above: Result Comment: mL/m in/1.73m2 CKD-EPI Creatinine Equation (2020) Performed By: #### L 500.2500, L100.0100 ####[facility] [address] [place], [address] Glucose [Mass/Vol] 95 mg/dL Normal 70-99 [facility] Comment on above: Performed By: #### L 500.2500, L100.0100 ####[facility] [address] [place], [address] Potassium [Moles/Vol] 4.4 mmol/L Normal 3.3-5.1 [facility] Comment on above: Performed By: #### L 500.2500, L100.0100 ####[facility] [address] [place], [address] Sodium [Moles/Vol] 138 mmol/L Normal 133-145 [facility] Comment on above: Performed By: #### L 500.2500, L100.0100 ####[facility] [address] [place], [address] Urea nitrogen [Mass/Vol] 21 mg/dL High 4-19 [facility] Comment on above: Performed By: #### L 500.2500, L100.0100 ####[facility] [address] [place], [address] Basophil percentageOrdered B y: Dean Del Cid on 01-01-2025 Basophils/100 WBC (Bld) 1.2 % High 0-1 [facility] Bilirubin Test strip Ql (U)O rdered By: Dean Del Cid on 01-01-2025 Bilirubin Ql (U) Negative Negative [facility] CBC W/Diff, Automatedon 12-20 Absolute Lymph 1.67 X10 3/uL Normal 0.83-4.51 [facility] Comment on above: Performed By: #### L 500.2500, L100.0100 ####[facility] [address] [place], [address] Absolute Neut 3.1 X10 3/uL Normal 2.0-7.7 [facility] Comment on above: Performed By: #### L 500.2500, L100.0100 ####[facility] [address] [place], [address] Basophils/100 WBC (Bld) 1.2 % High 0-1 [facility] Comment on above: Performed By: #### L 500.2500, L100.0100 ####[facility] [address] [place], [address] Eosinophils/100 WBC (Bld) 5.1 % High 0-5 [facility] Comment on above: Performed By: #### L 500.2500, L100.0100 ####[facility] [address] [place], [address] Erythrocyte distribution width (RBC) [Ratio] 14.3 % Normal 11.6-14.6 [facility] Comment on above: Performed By: #### L 500.2500, L100.0100 ####[facility] [address] [place], [address] Hematocrit (Bld) [Volume fraction] 37.1 % Low 40-54 [facility] Comment on above: Performed By: #### L 500.2500, L100.0100 ####[facility] [address] [place], [address] Hemoglobin (Bld) [Mass/Vol] 12.2 g/dL Low 13.0-16.5 [facility] Comment on above: Performed By: #### L 500.2500, L100.0100 ####[facility] [address] [place], [address] IG% 0.300 Normal 0.0-0.9 [facility] Comment on above: Result Comment: IG% - Immature Granulocytes (promyelocytes, myelocytes and metamyelocytes) > 1% indicates that a LEFT SHIFT is Present. Performed By: #### L 500.2500, L100.0100 ####[facility] [address] [place], [address] Lymphocytes/100 WBC (Bld) 28.4 % Normal 19-41 [facility] Comment on above: Performed By: #### L 500.2500, L100.0100 ####[facility] [address] [place], [address] MCH (RBC) [Entitic mass] 30.0 pg Normal 27.0-32.0 [facility] Comment on above: Performed By: #### L 500.2500, L100.0100 ####[facility] [address] [place], [address] MCHC (RBC) [Mass/Vol] 32.9 g/dL Normal 32-36 [facility] Comment on above: Performed By: #### L 500.2500, L100.0100 ####[facility] [address] [place], [address] MCV (RBC) [Entitic vol] 91.4 fL Normal 80-94 [facility] Comment on above: Performed By: #### L 500.2500, L100.0100 ####[facility] [address] [place], [address] Monocytes/100 WBC (Bld) 11.6 % High 0-10 [facility] Comment on above: Performed By: #### L 500.2500, L100.0100 ####[facility] [address] [place], [address] Neutrophils/100 WBC (Bld) 53.4 % Normal 47-70 [facility] Comment on above: Performed By: #### L 500.2500, L100.0100 ####[facility] [address] [place], [address] Nucleated RBC (Bld) [#/Vol] 0 10*3/uL Normal 0-5 [facility] Comment on above: Performed By: #### L 500.2500, L100.0100 ####[facility] [address] [place], [address] Platelet mean volume (Bld) [Entitic vol] 8.3 fL Normal 6.2-12.0 [facility] Comment on above: Performed By: #### L 500.2500, L100.0100 ####[facility] [address] [place], [address] Platelets (Bld) [#/Vol] 327 10*3/uL Normal 150-450 [facility] Comment on above: Performed By: #### L 500.2500, L100.0100 ####[facility] [address] [place], [address] RBC (Bld) [#/Vol] 4.06 10*6/uL Low 4.6-6.2 [facility] Comment on above: Performed By: #### L 500.2500, L100.0100 ####[facility] [address] [place], [address] RDW SD 48.0 fl High 35.1-43.9 [facility] Comment on above: Performed By: #### L 500.2500, L100.0100 ####[facility] [address] [place], [address] WBC (Bld) [#/Vol] 5.9 10*3/uL Normal 4.4-11.0 [facility] Comment on above: Performed By: #### L 500.2500, L100.0100 ####[facility] [address] [place], [address] Carbon dioxide, total [Moles /volume] in Central venous bloodOrdered By: Dean Burks 01-01-2025 CO2 [Moles/Vol] 25.1 mmol/L 21.0-32.0 [facility] Chloride assayOrdered By: Gilberto Del Cid on 01-01-2025 Chloride [Moles/Vol] 104 mmol/L 98-108 [facility] Emergency Department Summary on 01-01-2025 Emergency Department Summary [facility] Medical Records Department [address] [place] [address] Emergency Department Summary 01/01/25 MR#: [id number] Acct: [id number] Name: WINSTON MARI Rep #: [id number] : 1955 69 From: Dean Ac PCP: [...] bladder control. Prior similar symptoms: No PFSH PFSH Medical History Left rotator cuff tear Anemia GERD (gastroesophageal reflux disease) Left shoulder pain Hemorrhoid Epilepsy Sciatica High cholesterol Home Medications ???Medication ???Instructions ???Recorded ???Last Taken ???Type gabapentin 300 mg capsule 300 mg PO 4X/DAY 04/02/22 Unknown History hydrocortisone acetate 25 mg 25 mg [place] QHS #12 ea 04/27/22 Unkno wn Rx [...] AdvReac Rash Verified 01/01/25 14:03 hydrocodone (From [place]) AdvReac Upset Verified 01/01/25 14:03 Stomach ibuprofen [...] rebound t (more content not included)... Normal [facility] Eosinophil percentageOrdered By: Dean Del Cid on 01-01-2025 Eosinophils/100 WBC (Bld) 5.1 % High 0-5 [facility] Epithelial cells.squamous LM Ql (Urine sed)Ordered By: Dean Del Cid on 01-01-2025 Epithelial cells.squamous LM.HPF (Urine sed) [#/Area] 0 /[HPF] 0-5 [facility] Erythrocyte distribution wid th ratioOrdered By: Dean Del Cid on 01-01-2025 Erythrocyte distribution width (RBC) [Ratio] 14.3 % 11.6-14.6 [facility] Erythrocyte distribution wid th standard deviationOrdered By: Dean Del Cid on 01-01-2025 Erythrocyte distribution width (RBC) [Entitic vol] 48.0 fL High 35.1-43.9 [facility] Erythrocyte distribution width (RBC) [Ratio] 48.0 fl High 35.1-43.9 [facility] Estimation of creatinine homa aranceOrdered By: Dean Del Cid on 01-01-2025 Estimated Creatinine Clearance Calc 77.55 ml/min 50-250 [facility] GFR/1.73 sq M.predicted cecilia g non-blacks MDRD (S/P/Bld) [Vol rate/Area]Ordered By: Dean Del Cid on 01-01-2025 Estimated GFR (MDRD) Non-Af Amer 90 >60 [facility] Comment on above: mL/min/1.73m2 CKD-EP I Creatinine Equation (2020) Glomerular filtration rate ( GFR) estimation/1.73 sq m using serum, plasma, or whole bOrdered By: Dean Del Cid on 01-01-2025 GFR/1.73 sq M.predicted among non-blacks MDRD (S/P/Bld) [Vol rate/Area] 90 mL/min/{1.73_m2} >60 [facility] Comment on above: mL/min/1.73m2 CKD-EP I Creatinine Equation (2020) Glucose Ql (U)Ordered By: Gilberto Del Cid on 01-01-2025 Urine Glucose (UA) Normal mg/dl Normal [facility] Hematocrit Auto (Bld) [Volum e fraction]Ordered By: Dean Del Cid on 01-01-2025 Hematocrit (Bld) [Volume fraction] 37.1 % Low 40-54 [facility] Hemoglobin measurementOrdere d By: Dena Del Cid on 01-01-2025 Hemoglobin (Bld) [Mass/Vol] 12.2 g/dL Low 13.0-16.5 [facility] Immature granulocytes/100 WB C Auto (Bld)Ordered By: Dean Del Cid on 01-01-2025 Immature granulocytes/100 WBC (Bld) 0.300 % 0.0-0.9 [facility] Comment on above: IG% - Immature Granu locytes (promyelocytes, myelocytes and metamyelocytes) > 1% indicates that a LEFT SHIFT is Present. Ketones Test strip Ql (U)Ord ered By: Dean Del Cid on 01-01-2025 Ketones Ql (U) Negative Negative [facility] Lymphocytes Auto (Unsp spec) [#/Vol]Ordered By: Dean Del Cid on 01-01-2025 Lymphocytes (Bld) [#/Vol] 1.67 10*3/uL 0.83-4.51 [facility] Lymphocytes/100 WBC Auto (Un sp spec)Ordered By: Dean Del Cid on 01-01-2025 Lymphocytes/100 WBC (Bld) 28.4 % 19-41 [facility] MCV (mean corpuscular volume ) determinationOrdered By: Dean Del Cid on 01-01-2025 MCV (RBC) [Entitic vol] 91.4 fL 80-94 [facility] Mean corpuscular hemoglobin (MCH) determinationOrdered By: Dean Del Cid on 01-01-2025 MCH (RBC) [Entitic mass] 30.0 pg 27.0-32.0 [facility] Mean corpuscular hemoglobin concentration (MCHC) determinationOrdered By: Dean Del Cid on 01-01-2025 MCHC (RBC) [Mass/Vol] 32.9 g/dL 32-36 [facility] Mean platelet volume determi nationOrdered By: Dean Del Cid on 01-01-2025 Platelet mean volume (Bld) [Entitic vol] 8.3 fL 6.2-12.0 [facility] Microscopic analysis of urin e for red blood cells (RBC)Ordered By: Dean Del Cid on 01-01-2025 Microscopic analysis of urine for red blood cells (RBC) 0-5 SEEN /hpf 0-5 [facility] Urine RBC 0-5 SEEN /hpf 0-5 [facility] Monocyte percentageOrdered B y: Dean Del Cid on 01-01-2025 Monocytes/100 WBC (Bld) 11.6 % High 0-10 [facility] Mucus LM Ql (Urine sed)Order ed By: Dean Del Cid on 01-01-2025 Mucus Ql (Urine sed) 0 SEEN /hpf [facility] Neutrophil percentageOrdered By: Dean Del Cid on 01-01-2025 Neutrophils/100 WBC (Bld) 53.4 % 47-70 [facility] Nitrite Test strip Ql (U)Ord ered By: Dean Del Cid on 01-01-2025 Nitrite Ql (U) Negative Negative [facility] Nucleated red blood cell per centageOrdered By: Dean Del Cid on 01-01-2025 Nucleated RBC/100 WBC (Bld) [Ratio] 0 % 0-5 [facility] Platelet countOrdered By: Gilberto Del Cid on 01-01-2025 Platelets (Bld) [#/Vol] 327 10*3/uL 150-450 [facility] Potassium (Unsp spec) [Mass/ Vol]Ordered By: Dean Del Cid on 01-01-2025 Potassium [Moles/Vol] 4.4 mmol/L 3.3-5.1 [facility] Potassium measurement (mass/ volume)Ordered By: Dean Del Cid on 01-01-2025 Potassium (Unsp spec) [Mass/Vol] 4.4 mmol/L 3.3-5.1 [facility] Protein Test strip Ql (U)Ord ered By: Dean Del Cid on 01-01-2025 Protein Ql (U) Negative Negative [facility] RBC Auto (Bld) [#/Vol]Ordere d By: Dean Del Cid on 01-01-2025 RBC (Bld) [#/Vol] 4.06 10*6/uL Low 4.6-6.2 [facility] Serum creatinine measurement (mass/volume)Ordered By: Dean Del Cid on 01-01-2025 Creatinine [Mass/Vol] 0.93 mg/dL 0.70-1.20 [facility] Serum glucose measurement (m ass/volume)Ordered By: Dean Del Cid on 01-01-2025 Glucose [Mass/Vol] 95 mg/dL 70-99 [facility] Serum or plasma calcium doug urement (mass/volume)Ordered By: Dean Del Cid on 01-01-2025 Calcium [Mass/Vol] 9.0 mg/dL 7.6-11.0 [facility] Serum or plasma urea nitroge n measurement (mass/volume)Ordered By: Dean Del Cid on 01-01-2025 Urea nitrogen [Mass/Vol] 21 mg/dL High 4-19 [facility] Sodium levelOrdered By: Dean Del Cid on 01-01-2025 Sodium [Moles/Vol] 138 mmol/L 133-145 [facility] Squamous epithelial cells de tection in urine sediment by light microscopyOrdered By: Dean Del Cid on 01-01-2025 Epithelial cells.squamous LM Ql (Urine sed) 0-5 SEEN /hpf 0-5 [facility] Urinalysis, Completeon 01-01 EPI,SQUAMOUS 0-5 SEEN Normal 0-5 [facility] Comment on above: Order Comment: CLEAN CATCH Performed By: #### L 400.0001 #### [facility] [address] [place], [address] RBC 0-5 SEEN Normal 0-5 [facility] Comment on above: Order Comment: CLEAN CATCH Performed By: #### L 400.0001 #### [facility] [address] [place], [place], [id number] BACTERIA 0 SEEN Normal None Seen [facility] Comment on above: Order Comment: CLEAN CATCH Performed By: #### L 400.0001 #### [facility] [address] [place], [place], [id number] Mucus Ql (Urine sed) 0 SEEN Normal [facility] Comment on above: Order Comment: CLEAN CATCH Performed By: #### L 400.0001 #### [facility] [address] [place], [place], [id number] WBC 0 SEEN Normal 0-5 [facility] Comment on above: Order Comment: CLEAN CATCH Performed By: #### L 400.0001 #### [facility] [address] [place], [place], [id number] Urine blood detectionOrdered By: Dean Del Cid on 01-01-2025 Urine Occult Blood 25 /ul High Negative [facility] Urine clarityOrdered By: Suresh Del Cid on 01-01-2025 Clarity (U) Sl. Cloudy Clear [facility] Urine color determinationOrd ered By: Dean Del Cid on 01-01-2025 Color (U) Yellow Yellow [facility] Urine glucose detectionOrder ed By: Dean Del Cid on 01-01-2025 Glucose Ql (U) Normal mg/dl Normal [facility] Urine leukocyte esterase det ection by dipstickOrdered By: Dean Del Cid on 01-01-2025 Leukocyte esterase Test strip Ql (U) Negative Negative [facility] Urine pHOrdered By: Dean Del Cid on 01-01-2025 pH (U) 6.5 [pH] 5.0 - 8.0 [facility] Urine sediment bacteria coun t by microscopy (number/high power field)Ordered By: Dean Del Cid on 01-01-2025 Bacteria LM.HPF (Urine sed) [#/Area] 0 /[HPF] None Seen [facility] Urine specific gravity measu rementOrdered By: Dean Del Cid on 01-01-2025 Specific gravity (U) [Rel density] 1.010 1.002-1.03 0 [facility] Urine urobilinogen measureme ntOrdered By: Dean Del Cid on 01-01-2025 Urobilinogen Ql (U) Normal mg/dl Normal [facility] Urobilinogen Ql (U)Ordered B y: Dean Del Cid on 01-01-2025 Urine Urobilinogen Normal mg/dl Normal [facility] White blood cell (WBC) count Ordered By: Dean Del Cid on 01-01-2025 WBC (Bld) [#/Vol] 5.9 10*3/uL 4.4-11.0 [facility] White blood cell countOrdere d By: Dean Le on 01-01-2025 Urine WBC 0 SEEN /hpf 0-5 [facility] White blood cell count 0 SEEN /hpf 0-5 W [facility] Magnetic resonance imaging r eportOrdered By: Gregg Uriostegui on 12-22-2024 Study report [facility] Imaging Services [address], [place] [address] Spine Lumbar (Routine) MR#: [id number] Acct: [id number] Name: WINSTON MARI Rep #: [id number] : 1955 M 69 From: Sohail Uriostegui DO PCP: Dr. Eugenio Mayen DO Status: REG CLI Study:Spine Lumbar (Routine) Date of Exam: 12/22/24 Exam# [id number] Ordering Dr: Memo Campbell PA PROCEDURE: MRI SPINE LUMBAR (ROUTINE) REASON FOR [...] arthropathy with no significant central canal stenosis. Lpzu-ya-hotyrdbq left and mild right neural foraminal narrowing [...] likely on a degenerative basis. Reading [facility] CC: NIKI Rock; Dr. Eugenio Mayen DO ~ Building Construction Foreman: Signed [facility] Spine Lumbar (Routine)on Spine Lumbar (Routine) [facility] Imaging Services [address] [place], [place] [address] Spine Lumbar (Routine) MR#: [id number] Acct: [id number] Name: WINSTON MARI Rep #: [id number] : 1955 M 69 From: Gregg Uriostegui DO PCP: Dr. Eugenio Mayen DO Status: REG CLI Study: Spine Lumbar (Routine) Date of Exam: 12/22/24 Exam# [id number] Ordering Dr: Aiyana Campbell PROCEDURE: MRI SPINE [...] arthropathy with no significant central canal stenosis. Ecuh-yh-shkngmti left and mild right neural foraminal narrowing [...] CC: NIKI Rock; Dr. Eugenio Mayen DO Building Construction Foreman: Signed Normal [facility] .Auto Diffon 12-18-2024 Basophil, Absolute 0.1 10 3/mcL Normal 0.0-0.2 [facility] Comment on above: Performed By: #### P SA, CBC, CMP, ADIFF, FERR, LIPID, VIDH, A1C, ANEU, GFR #### [address] [place], [place] [address] Basophils/100 WBC (Bld) 1.0 % Normal 0.0-2.5 [facility] Comment on above: Performed By: #### P SA, CBC, CMP, ADIFF, FERR, LIPID, VIDH, A1C, ANEU, GFR #### [address] [address] Eosinophil, Absolute 0.4 10 3/mcL Normal 0.0-0.7 [facility] Comment on above: Performed By: #### P SA, CBC, CMP, ADIFF, FERR, LIPID, VIDH, A1C, ANEU, GFR #### [address] [address] Eosinophils/100 WBC (Bld) 6.4 % Normal 0.0-7.0 [facility] Comment on above: Performed By: #### P SA, CBC, CMP, ADIFF, FERR, LIPID, VIDH, A1C, ANEU, GFR #### [address] [address] Lymphocyte, Absolute 1.4 10 3/mcL Normal 0.9-4.3 [facility] Comment on above: Performed By: #### P SA, CBC, CMP, ADIFF, FERR, LIPID, VIDH, A1C, ANEU, GFR #### [address] [address] Lymphocytes/100 WBC (Bld) 21.0 % Normal 20.0-40.0 [facility] Comment on above: Performed By: #### P SA, CBC, CMP, ADIFF, FERR, LIPID, VIDH, A1C, ANEU, GFR #### [address] [address] Monocyte, Absolute 0.7 10 3/mcL Normal 0.1-1.4 [facility] Comment on above: Performed By: #### P SA, CBC, CMP, ADIFF, FERR, LIPID, VIDH, A1C, ANEU, GFR #### [address] [address] Monocytes/100 WBC (Bld) 10.5 % Normal 2.0-13.0 [facility] Comment on above: Performed By: #### P SA, CBC, CMP, ADIFF, FERR, LIPID, VIDH, A1C, ANEU, GFR #### [address] [place], [place] [address] Neutrophils/100 WBC (Bld) 61.1 % Normal 50.0-75.0 [facility] Comment on above: Performed By: #### P SA, CBC, CMP, ADIFF, FERR, LIPID, VIDH, A1C, ANEU, GFR #### [address] [place], [place] [address] .GFRon 12-18-2024 Estimated Glomerular Filtration Rate 81 ml/min/1.73sqm Normal [facility] Comment on above: Result Comment: Stages of [...] ADIFF, FERR, LIPID, VIDH, A1C, ANEU, GFR ####[facility] [place], [place] [address] .NEUABSon 12-18-2024 Neutrophil, Absolute 4.0 10 3/mcL Normal 2.3-8.1 [facility] Comment on above: Performed By: #### P SA, CBC, CMP, ADIFF, FERR, LIPID, VIDH, A1C, ANEU, GFR #### [address] [place], [place] [address] A1Con 12-18-2024 Glucose [Mass/Vol] 114 mg/dL Normal [facility] Comment on above: Result Comment: Josee mated Average Glucose calculated by equation ((28.7xA1C)-46.7) Estimated average glucose (eAG) is a calculated value from Hemoglobin A1C and is fundraising sale representative of the average blood glucose level in the last 2-3 month period. Normal range: less than 114 mg/dL Performed By: #### P SA, CBC, CMP, ADIFF, FERR, LIPID, VIDH, A1C, ANEU, GFR ####[place] [address] HbA1c (Bld) [Mass fraction] 5.6 % Normal 4.3-6.4 [facility] Comment on above: Performed By: #### P SA, CBC, CMP, ADIFF, FERR, LIPID, VIDH, A1C, ANEU, GFR ####[place] [address] CBCon 12-18-2024 Erythrocyte distribution width (RBC) [Ratio] 14.9 % Normal 11.5-15.5 [facility] Comment on above: Performed By: #### P SA, CBC, CMP, ADIFF, FERR, LIPID, VIDH, A1C, ANEU, GFR #### [place] [address] Hematocrit (Bld) [Volume fraction] 36.8 % Low 40.0-52.0 [facility] Comment on above: Performed By: #### P SA, CBC, CMP, ADIFF, FERR, LIPID, VIDH, A1C, ANEU, GFR #### [place] [address] Hgb 12.6 G/dL Low 13.0-17.5 [facility] Comment on above: Performed By: #### P SA, CBC, CMP, ADIFF, FERR, LIPID, VIDH, A1C, ANEU, GFR #### [place] [address] MCH (RBC) [Entitic mass] 30.9 pg Normal 27.0-33.0 [facility] Comment on above: Performed By: #### P SA, CBC, CMP, ADIFF, FERR, LIPID, VIDH, A1C, ANEU, GFR #### [place] [address] MCHC 34.3 G/dL Normal 32.0-36.0 [facility] Comment on above: Performed By: #### P SA, CBC, CMP, ADIFF, FERR, LIPID, VIDH, A1C, ANEU, GFR #### [address] [address] MCV (RBC) [Entitic vol] 89.9 fL Normal 81.0-100.0 [facility] Comment on above: Performed By: #### P SA, CBC, CMP, ADIFF, FERR, LIPID, VIDH, A1C, ANEU, GFR #### [address] [address] Platelet 390 10 3/mcL Normal 150-450 [facility] Comment on above: Performed By: #### P SA, CBC, CMP, ADIFF, FERR, LIPID, VIDH, A1C, ANEU, GFR #### [address] [address] Platelet mean volume (Bld) [Entitic vol] 6.9 fL Normal 6.4-10.5 [facility] Comment on above: Performed By: #### P SA, CBC, CMP, ADIFF, FERR, LIPID, VIDH, A1C, ANEU, GFR #### [address] [address] RBC 4.09 10 6/mcL Low 4.50-6.00 [facility] Comment on above: Performed By: #### P SA, CBC, CMP, ADIFF, FERR, LIPID, VIDH, A1C, ANEU, GFR #### [address] [address] WBC 6.6 10 3/mcL Normal 4.5-10.8 [facility] Comment on above: Performed By: #### P SA, CBC, CMP, ADIFF, FERR, LIPID, VIDH, A1C, ANEU, GFR #### [address] [address] CMPon 12-18-2024 Albumin Level 3.8 G/dL Normal 3.4-4.8 [facility] Comment on above: Performed By: #### P SA, CBC, CMP, ADIFF, FERR, LIPID, VIDH, A1C, ANEU, GFR #### [address] [address] Albumin/Globulin [Mass ratio] 1.2 {ratio} Normal 1.1-2.5 [facility] Comment on above: Performed By: #### P SA, CBC, CMP, ADIFF, FERR, LIPID, VIDH, A1C, ANEU, GFR #### [address] [address] ALP [Catalytic activity/Vol] 95 U/L Normal 40-135 [facility] Comment on above: Performed By: #### P SA, CBC, CMP, ADIFF, FERR, LIPID, VIDH, A1C, ANEU, GFR #### [address] [address] ALT [Catalytic activity/Vol] 22 U/L Normal 16-63 [facility] Comment on above: Performed By: #### P SA, CBC, CMP, ADIFF, FERR, LIPID, VIDH, A1C, ANEU, GFR #### [address] [address] AST [Catalytic activity/Vol] 20 U/L Normal 10-40 [facility] Comment on above: Performed By: #### P SA, CBC, CMP, ADIFF, FERR, LIPID, VIDH, A1C, ANEU, GFR #### [address] [address] Bili Total 0.3 mg/dL Normal 0.2-1.0 [facility] Comment on above: Result Comment: Use of this assay is not recommended for patients undergoing treatment with eltrombopag due to the potential for falsely elevated results. Performed By: #### P SA, CBC, CMP, ADIFF, FERR, LIPID, VIDH, A1C, ANEU, GFR #### [address] [address] BUN/Creatinine Ratio 23 ratio Normal 7-27 [facility] Comment on above: Performed By: #### P SA, CBC, CMP, ADIFF, FERR, LIPID, VIDH, A1C, ANEU, GFR #### [address] [address] Calcium [Mass/Vol] 9.0 mg/dL Normal 8.4-10.2 [facility] Comment on above: Performed By: #### P SA, CBC, CMP, ADIFF, FERR, LIPID, VIDH, A1C, ANEU, GFR #### [address] [address] Chloride [Moles/Vol] 104 mmol/L Normal 98-107 [facility] Comment on above: Performed By: #### P SA, CBC, CMP, ADIFF, FERR, LIPID, VIDH, A1C, ANEU, GFR #### [place] [address] CO2 [Moles/Vol] 26 mmol/L Normal 23-31 [facility] Comment on above: Performed By: #### P SA, CBC, CMP, ADIFF, FERR, LIPID, VIDH, A1C, ANEU, GFR #### [address] [address] Creatinine [Mass/Vol] 1.01 mg/dL Normal 0.70-1.30 [facility] Comment on above: Result Comment: Test ing performed on Siemens Dimension EXL analyzer using a modified kinetic Polly technique. Performed By: #### P SA, CBC, CMP, ADIFF, FERR, LIPID, VIDH, A1C, ANEU, GFR #### [address] [address] Electrolyte Balance 9.0 mEq/L Normal 4.0-15.0 [facility] Comment on above: Performed By: #### P SA, CBC, CMP, ADIFF, FERR, LIPID, VIDH, A1C, ANEU, GFR #### [address] [address] Globulin 3.2 G/dL Normal 1.5-3.8 [facility] Comment on above: Performed By: #### P SA, CBC, CMP, ADIFF, FERR, LIPID, VIDH, A1C, ANEU, GFR #### [place] [address] Glucose [Mass/Vol] 83 mg/dL Normal 80-115 [facility] Comment on above: Performed By: #### P SA, CBC, CMP, ADIFF, FERR, LIPID, VIDH, A1C, ANEU, GFR #### [address] [address] Potassium [Moles/Vol] 4.6 mmol/L Normal 3.5-5.1 [facility] Comment on above: Performed By: #### P SA, CBC, CMP, ADIFF, FERR, LIPID, VIDH, A1C, ANEU, GFR #### [address] [address] Sodium [Moles/Vol] 139 mmol/L Normal 136-145 [facility] Comment on above: Performed By: #### P SA, CBC, CMP, ADIFF, FERR, LIPID, VIDH, A1C, ANEU, GFR #### [address] [address] Total Protein 7.0 G/dL Normal 6.4-8.2 [facility] Comment on above: Performed By: #### P SA, CBC, CMP, ADIFF, FERR, LIPID, VIDH, A1C, ANEU, GFR #### [address] [address] Urea nitrogen [Mass/Vol] 23 mg/dL High 7-18 [facility] Comment on above: Performed By: #### P SA, CBC, CMP, ADIFF, FERR, LIPID, VIDH, A1C, ANEU, GFR #### [address] [address] Sina 12-18-2024 Ferritin [Mass/Vol] 68.0 ng/mL Normal 26.0-388.0 [facility] Comment on above: Performed By: #### P SA, CBC, CMP, ADIFF, FERR, LIPID, VIDH, A1C, ANEU, GFR #### [address] [address] LIPIDon 12-18-2024 Cholesterol [Mass/Vol] 136 mg/dL Normal 0-200 [facility] Comment on above: Result Comment: Chol esterol Reference Interval: Less than 200 Desirable 200-239 Borderline high risk 240 and above High risk Performed By: #### P SA, CBC, CMP, ADIFF, FERR, LIPID, VIDH, A1C, ANEU, GFR ####[facility] [place], [place] [address] Cholesterol in HDL [Mass/Vol] 38 mg/dL Low 40-60 [facility] Comment on above: Performed By: #### P SA, CBC, CMP, ADIFF, FERR, LIPID, VIDH, A1C, ANEU, GFR ####[facility] [place], [place] [address] Cholesterol in LDL [Mass/Vol] 84 mg/dL Normal 0-130 [facility] Comment on above: Performed By: #### P SA, CBC, CMP, ADIFF, FERR, LIPID, VIDH, A1C, ANEU, GFR ####[address] [place], [place] [address] Triglyceride [Mass/Vol] 72 mg/dL Normal 0-150 [facility] Comment on above: Result Comment: Trig lyceride Reference Interval: Less than 150 Normal 150-199 Borderline high risk 200-499 High risk 500 or higher Very high risk Performed By: #### P SA, CBC, CMP, ADIFF, FERR, LIPID, VIDH, A1C, ANEU, GFR ####[address] [place], [place] [address] PSAon 12-18-2024 Prostate Specific Antigen 1.51 ng/mL Normal 0.00-4.00 [facility] Comment on above: Performed By: #### P SA, CBC, CMP, ADIFF, FERR, LIPID, VIDH, A1C, ANEU, GFR ####[facility] [place], [place] [address] VIDHon 12-18-2024 Vit. D 25-Hydroxy 31.7 ng/mL Normal [facility] Comment on above: Result Comment: Inte rpretive Values Based on Total 25(OH) Vitamin D: Deficient <20 ng/mL Insufficient 20 - <30 ng/mL Sufficient 30-100 ng/mL Performed By: #### P SA, CBC, CMP, ADIFF, FERR, LIPID, VIDH, A1C, ANEU, GFR ####[address] [place], [place] [address] Orthopedic Visit Reporton Orthopedic Visit Report [facility] [address] [place] [address] OFFICE VISIT Date of Service: 12/15/24 MR#: [id number] Acct: [id number] Name: WINSTON MARI Rep #: [id number] : 1955 Provider: Dr. 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 Jacob Domingeuz MD 12/15/24 0962. Part of today???s visit was documented by [ ], acting as scribe. WINSTON MARI is a 69 year old M here today for left shoulder pain. Follow-up MRI to assess for cuff tear. Patient is still waiting on an MRI of the lumbar spine for compression fracture. Supplemental Info [facility] Imaging Services [address] [place], [place] [id number] Upper Ext Joint Only(Routine) MR#: [id number] Acct: [id number] Name: WINSTON MARI Rep #: [id number] : 1955 M 69 From: Doug Coats DO PCP: Dr. Eugenio Mayen DO Status: REG CLI Study: Upper Ext Joint Only(Routine) Date of Exam: 12/08/24 Exam# [id number] Ordering Dr: Jacob Dominguez MD PROCEDURE: MRI [...] Small gleno (more content not included)... Normal [facility] Upper Ext Joint Only(Routine )on 12-08-2024 Upper Ext Joint Only(Routine) [facility] Imaging Services [address] [place] [address] Upper Ext Joint Only(Routine) MR#: [id number] Acct: [id number] Name: WINSTON MARI Rep #: [id number] : 1955 M 69 From: Doug Asher PCP: Dr. Eugenio Mayen DO Status: REG CLI Study: Upper Ext Joint Only(Routine) Date of Exam: 0 12/08/24 Exam# [id number] Ordering Dr: Jacob Dominguez MD PROCEDURE: MRI [...] Eugenio Mayen DO; Dr. Jacob Dominguez MD Building Construction Foreman: Signed Normal [facility] Brain/Head without Contrasto n 11-25-2024 Brain/Head without Contrast [facility] Imaging Services [address] [place] [address] Brain/Head without Contrast MR#: [id number] Acct: [id number] Name: WINSTON MARI Rep #: [id number] : 1955 M 69 From: Patricia Del Cid MD PCP: Dr. Eugenio Mayen DO Status: [facility] Study: Brain/Head without Contrast Date of Exam: 02/13 Exam# [id number] Ordering Dr: Abril Velarde DO EXAM: CT [...] evaluation with MRI is recommended. Reading Location: [facility] CC: Dr. Eugenio Mayen DO; Dr. Abril Velarde DO Building Construction Foreman: Signed Normal [facility] Emergency Department Summary on 11-25-2024 Emergency Department Summary [facility] Medical Records Department [address] [place] [address] Emergency Department Summary 11/25/24 MR#: [id number] Acct: [id number] Name: WINSTON MARI Rep #: [id number] : 1955 69 From: Abril Velarde DO PCP: Dr. Eugenio Mayen DO Status:DEP ER Location: ED HPI History [...] pain relief. He has had no vomiting. [facility] Medical History Anemia GERD (gastroesophageal reflux disease) Left shoulder pain Hemorrhoid Epilepsy Sciatica High cholesterol Home Medications ???Medication ???Instructions ???Recorded ???Last Taken ???Type gabapentin 300 mg capsule 300 mg PO 4X/DAY 04/02/22 Unknown History hydrocortisone acetate 25 mg 25 mg [place] QHS #12 ea 04/27/22 Unkno wn Rx [...] AdvReac Rash Verified 11/25/24 10:50 hydrocodone (From [place]) AdvReac Upset Verified 11/25/24 10:50 Stomach ibuprofen [...] polydipsia, polyp (more content not included)... Normal [facility] Shoulder min 2 Viewson 11-25 Shoulder min 2 Views [facility] Imaging Services [address] [place], [place] [id number] Shoulder min 2 Views MR#: [id number] Acct: [id number] Name: WINSTON MARI Rep #: [id number] : 1955 M 69 From: Patricia Del Cid MD PCP: Dr. Eugenio Mayen DO Status: REG ER Study: Shoulder min 2 Views Date of Exam: 11/25/24 Exam# [id number] Ordering Dr: Abril Velarde DO EXAM: XR Left Shoulder Complete, 2 or More Views CLINICAL INDICATION: TECHNIQUE: Two or more views of the left shoulder. COMPARISON: No relevant prior studies available. FINDINGS: BONES/JOINTS: Unremarkable. No acute fracture. No dislocation. SOFT TISSUES: Unremarkable. RAD/Shoulder min 2 Views IMPRESSION: No acute fracture. Reading Location: [facility] CC: Dr. Eugenio Mayen DO; Dr. Abril Velarde DO Building Construction Foreman: Signed Normal [facility] Spine Cervical without Contr ason 11-25-2024 Spine Cervical without Contras [facility] Imaging Services [address] [place], [place] [address] Spine Cervical without Contras MR#: [id number] Acct: [id number] Name: WINSTON MARI Rep #: [id number] : 1955 M 69 From: Patricia Del Cid MD PCP: Dr. Eugenio Mayen DO Status: REG ER Study: Spine Cervical without Contras Date of Exam: 0 11/25/24 Exam# [id number] Ordering Dr: Abril Velarde DO EXAM: CT [...] the cervical spine as described. Reading Location: [facility] CC: Dr. Eugenio Mayen DO; Dr. Abril Velarde DO Building Construction Foreman: Signed Normal [facility] Lumbar Spine 2 or 3 Viewson 11-18-2024 Lumbar Spine 2 or 3 Views [facility] Imaging Services [address] [place], [place] [id number] Lumbar Spine 2 or 3 Views MR#: [id number] Acct: [id number] Name: WINSTON MARI Rep #: [id number] : 1955 M 69 From: Will Padron DO PCP: Dr. Eugenio Mayen DO Status: DEP AMB Study: Lumbar Spine 2 or 3 Views Date of Exam: Exam# [id number] Ordering Dr: Aiyana Campbell PROCEDURE: LUMBAR SPINE [...] ileus or developing bowel obstruction. Reading Location[facility] CC: NIKI Rock; Dr. Eugenio Mayen DO Building Construction Foreman: Signed Normal [facility] Orthopedic Visit Reporton Orthopedic Visit Report [facility] [address] [place] [address] [address] [place], [place] [address] OFFICE VISIT Date of Service: 11/18/24 MR#: [id number] Acct: [id number] Name: WINSTON MARI Rep #: [id number] : 1955 Provider: NIKI Rock Age/Sex: 69/M Location: [facility] Status: Signed Intake Vital Signs 11/05/24 14:16 11/12/24 12:16 Height 5 ft 11 in 5 ft 11 in Intake Visit Reasons: LUMBAR SPINE Allergies adhesive tape (tape) Adverse Reaction (Verified 11/18/24 13:30) Rash hydrocodone (From [place]) Adverse Reaction (Verified 11/18/24 13:30) Upset Stomach [...] History hydrocortisone acetate 25 mg 25 mg [place] QHS #12 ea 04/27/22 11/18/24 Rx rectal [...] decisions made by me, NIKI Rock 11/18/24 5652. Part of today???s visit was documented by Araseli POPE, acting as scribe. WINSTON MARI is a 69 year old M here today for ED f/u on low back pain. He states that in 2022 he fell off a roof about 30ft and fractured L2 and L4 and was sent to [facility] for 3-4 days. He was then recommended to have a kyphoplasty but he refused it because of the chance of it leaking out and getting into his bloodstream. He then had a recent fall when he fell off a 10ft ladder trying to fix a light on a [employer] go round and fractured L1. He was [...] seen pain management in the past at [facility]. Worsening pain over the last week with [...] M51.362 Disc-relate (more content not included)... Normal [facility] Orthopedic Visit Reporton Orthopedic Visit Report [facility] [address] [place] [address] OFFICE VISIT Date of Service: 11/13/24 MR#: [id number] Acct: [id number] Name: WINSTON MARI Rep #: [id number] : 1955 Provider: Dr. Jacob mckeon MD Age/Sex: 69/M Location: [facility] Status: Signed Intake Vital Signs 11/05/24 14:16 11/12/24 12:16 Height 5 ft 11 in 5 ft 11 in Weight: 161 lb BMI 22.4 Intake Visit Reasons: LEFT SHOULDER Accompanied by: Self Is patient in pain?: Yes (left arm and low back) Pain scale (1-10): 9 Allergies adhesive tape (tape) Adverse Reaction (Verified 11/13/24 14:08) Rash hydrocodone (From [place]) Adverse Reaction (Verified 11/13/24 14:08) Upset Stomach [...] documented by [ ], acting as scribe. IWNSTON MARI is a 69 year old M here today for L shoulder pain. This started about a year ago. Patient gsnsr-omgl-juchyoiv. He fell off a ladder as well over the last week and feels like he can barely lift up his arm. He works in the [employer] around quite a bit this summer his nephew on some [employer] games has to maintain those follow-up for [...] had surgery on her shoulder. Supplemental Info [facility] Imaging Services [address] [place] [address] Shoulder min 2 Views MR#: [id number] Acct: [id number] Name: WINSTON MARI Rep #: [id number] : 1955 M 69 From: Richard Cortez DO PCP: Dr. Eugenio Mayen, DO Status: REG ER Study: Shoulder min 2 Views Date of Exam: 11/05/24 Exam# [id number] Ordering Dr: Dennis Strickland DO [id number] INDICATION: fall pain EXAMINATION/TECHNIQUE: X-RAY - LEFT [...] 17:00 EST Reading Location ID and State: [facility] / [place] Tel [phone], Service support , [facility] Imaging Services [address] [place] [address] Humerus min 2 Views MR#: [id number] Acct: [id number] Name: WINSTON MARI Rep #: [id number] : 1955 69 From: Richard Cortez DO PCP: Dr. Eugenio Mayen DO Status: REG ER Study: Humerus min 2 Views Date of Exam: 11/05/24 Exam# [id number] Ordering Dr: Dennis Strickland DO [id number] INDICATION: fall, pain EXAMINATION/TECHNIQUE (more content not included)... Normal [facility] Absolute neutrophil countOrd ered By: Dennis Strickland on 11-05-2024 Neutrophils (Bld) [#/Vol] 5.8 10*3/uL 2.0-7.7 [facility] Bacteria LM.HPF (Urine sed) [#/Area]Ordered By: Dennis Strickland on 11-05-2024 Urine Bacteria RARE /hpf None Seen [facility] Basic Metabolic Profile (BMP )on 11-05-2024 BUN/CRE 11.9 RATIO Normal 10-20 [facility] Comment on above: Performed By: #### L 500.2500, L500.3400 #### [facility] [address] [place], [address] CA,Total 8.4 mg/dL Low 8.5-10.1 [facility] Comment on above: Performed By: #### L 500.2500, L500.3400 #### [facility] [address] [place], [address] Chloride [Moles/Vol] 107 mmol/L Normal 98-107 [facility] Comment on above: Performed By: #### L 500.2500, L500.3400 #### [facility] [address] [place], [address] CO2 [Moles/Vol] 27.0 mmol/L Normal 21.0-32.0 [facility] Comment on above: Performed By: #### L 500.2500, L500.3400 #### [facility] [address] [place], [address] Creatinine [Mass/Vol] 1.01 mg/dL Normal 0.70-1.30 [facility] Comment on above: Result Comment: The validity of the calculated GFR GFRAA in patients over 70 years has not been determined. Clinical correlation is essential. Performed By: #### L 500.2500, L500.3400 #### [facility] [address] [place], [address] ECRCL 70.59 ml/min Normal [facility] Comment on above: Performed By: #### L 500.2500, L500.3400 #### [facility] [address] [place], [address] EST GFR - AA 94 mL/min Normal >60 [facility] Comment on above: Result Comment: Afri can Congolese GFR Calc Performed By: #### L 500.2500, L500.3400 #### [facility] [address] [place], [address] GAP 6 Normal 5-15 [facility] Comment on above: Performed By: #### L 500.2500, L500.3400 #### [facility] [address] [place], [address] GFR/1.73 sq M.predicted among non-blacks MDRD (S/P/Bld) [Vol rate/Area] 78 mL/min/{1.73_m2} Normal >60 [facility] Comment on above: Result Comment: Non- GFR Calc Performed By: #### L 500.2500, L500.3400 #### [facility] [address] [place], [address] Glucose [Mass/Vol] 80 mg/dL Normal 74-106 [facility] Comment on above: Performed By: #### L 500.2500, L500.3400 #### [facility] [address] [place], [address] Potassium [Moles/Vol] 3.6 mmol/L Normal 3.5-5.1 [facility] Comment on above: Performed By: #### L 500.2500, L500.3400 #### [facility] [address] [place], [address] Sodium [Moles/Vol] 140 mmol/L Normal 136-145 [facility] Comment on above: Performed By: #### L 500.2500, L500.3400 #### [facility] [address] [place], [address] Urea nitrogen [Mass/Vol] 12 mg/dL Normal 7-18 [facility] Comment on above: Performed By: #### L 500.2500, L500.3400 #### [facility] [address] [place], [address] BUN Normal 7-18 [facility] Comment on above: Result Comment: This specimen has been REJECTED due to Laboratory criteria: Hemolyzed. STANLEY has been notified of need of recollection. 11/05/24 1548 Heather Lollo Performed By: #### L 100.0100, L500.3400, L500.2500 #### [facility] [address] [place], [address] BUN/CRE Normal 10-20 [facility] Comment on above: Result Comment: This specimen has been REJECTED due to Laboratory criteria: Hemolyzed. STANLEY has been notified of need of recollection. 11/05/24 1548 Heather Lollo Performed By: #### L 100.0100, L500.3400, L500.2500 #### [facility] [address] [place], [address] CA,Total Normal 8.5-10.1 [facility] Comment on above: Result Comment: This specimen has been REJECTED due to Laboratory criteria: Hemolyzed. STANLEY has been notified of need of recollection. 11/05/24 1548 Heather Lollo Performed By: #### L 100.0100, L500.3400, L500.2500 #### [facility] [address] [place], [address] CL Normal 98-107 [facility] Comment on above: Result Comment: This specimen has been REJECTED due to Laboratory criteria: Hemolyzed. STANLEY has been notified of need of recollection. 11/05/24 1548 Heather Lollo Performed By: #### L 100.0100, L500.3400, L500.2500 #### [facility] [address] [place], [address] CO2 Normal 21.0-32.0 [facility] Comment on above: Result Comment: This specimen has been REJECTED due to Laboratory criteria: Hemolyzed. STANLEY has been notified of need of recollection. 11/05/24 1548 Heather Lollo Performed By: #### L 100.0100, L500.3400, L500.2500 #### [facility] [address] [place], [address] CREAT,SERUM Normal 0.70-1.30 [facility] Comment on above: Result Comment: This specimen has been REJECTED due to Laboratory criteria: Hemolyzed. STANLEY has been notified of need of recollection. 11/05/24 1548 Heather Lollo Performed By: #### L 100.0100, L500.3400, L500.2500 #### [facility] [address] [place], [address] EST GFR Normal >60 [facility] Comment on above: Result Comment: This specimen has been REJECTED due to Laboratory criteria: Hemolyzed. STANLEY has been notified of need of recollection. 11/05/24 1548 Heather Lollo Performed By: #### L 100.0100, L500.3400, L500.2500 #### [facility] [address] [place], [address] EST GFR - AA Normal >60 [facility] Comment on above: Result Comment: This specimen has been REJECTED due to Laboratory criteria: Hemolyzed. STANLEY has been notified of need of recollection. 11/05/24 1548 Heather Lollo Performed By: #### L 100.0100, L500.3400, L500.2500 #### [facility] [address] [place], [address] GAP Normal 5-15 [facility] Comment on above: Result Comment: This specimen has been REJECTED due to Laboratory criteria: Hemolyzed. STANLEY has been notified of need of recollection. 11/05/24 1548 Heather Lollo Performed By: #### L 100.0100, L500.3400, L500.2500 #### [facility] [address] [place], [address] GLU Normal 74-106 [facility] Comment on above: Result Comment: This specimen has been REJECTED due to Laboratory criteria: Hemolyzed. STANLEY has been notified of need of recollection. 11/05/24 1548 Heather Lollo Performed By: #### L 100.0100, L500.3400, L500.2500 #### [facility] [address] [place], [address] Potassium Normal 3.5-5.1 [facility] Comment on above: Result Comment: This specimen has been REJECTED due to Laboratory criteria: Hemolyzed. STANLEY has been notified of need of recollection. 11/05/24 1548 Heather Lollo Performed By: #### L 100.0100, L500.3400, L500.2500 #### [facility] [address] [place], [address] Basic Metabolic Profile (BMP) Normal 136-145 [facility] Comment on above: Result Comment: This specimen has been REJECTED due to Laboratory criteria: Hemolyzed. STANLEY has been notified of need of recollection. 11/05/24 1548 Heather Lollo Performed By: #### L 100.0100, L500.3400, L500.2500 #### [facility] [address] [place], [address] Basophil percentageOrdered B y: Dennis Strickland on 11-05-2024 Basophils/100 WBC (Bld) 0.7 % 0-1 [facility] Bilirubin Test strip Ql (U)O rdered By: Dennis Strickland on 11-05-2024 Bilirubin Ql (U) Negative Negative [facility] Bilirubin directOrdered By: Dennis Strickland on 11-05-2024 Bilirubin.direct [Mass/Vol] 0.21 mg/dL 0.00-0.30 [facility] Bilirubin, totalOrdered By: Dennis Strickland on 11-05-2024 Bilirubin [Mass/Vol] 1.00 mg/dL 0.20-1.00 [facility] Comment on above: For patients on eltr ombopag therapy, use of Dimension [place] TBIL is not recommended. Blood urea nitrogen (BUN)/cr eatinine ratioOrdered By: Dennis Strickland on 11-05-2024 Urea nitrogen/Creatinine [Mass ratio] 11.9 mg/mg 10-20 [facility] Brain/Head without Contrasto n 11-05-2024 Brain/Head without Contrast [facility] Imaging Services [address] [place] [address] Brain/Head without Contrast MR#: [id number] Acct: [id number] Name: WINSTON MARI Rep #: [id number] : 1955 M 69 From: Sorin galindo MD PCP: Dr. Eugenio Mayen, Status: REG ER Study: Brain/Head without Contrast Date of Exam: 10/22 03/15 Exam# [id number] Ordering Dr: Dennis Strickland DO [id number] STUDY: CT BRAIN WITHOUT CONTRAST REASON FOR [...] Signed: Sorin Sorensen MD at 15:46 EST , CC: Dr. Eugenio Mayen, DO; Dr. Dennis Strickland, DO Building Construction Foreman: Signed Normal [facility] CBC W/Diff, Automatedon 10-22 Absolute Lymph 1.68 X10 3/uL Normal 0.83-4.51 [facility] Comment on above: Performed By: #### L 100.0100, L500.3400, L500.2500 #### [facility] [address] [place], [address] Absolute Neut 5.8 X10 3/uL Normal 2.0-7.7 [facility] Comment on above: Performed By: #### L 100.0100, L500.3400, L500.2500 #### [facility] [address] [place], [address] Basophils/100 WBC (Bld) 0.7 % Normal 0-1 [facility] Comment on above: Performed By: #### L 100.0100, L500.3400, L500.2500 #### [facility] [address] [place], [address] Eosinophils/100 WBC (Bld) 3.3 % Normal 0-5 [facility] Comment on above: Performed By: #### L 100.0100, L500.3400, L500.2500 #### [facility] [address] [place], [address] Erythrocyte distribution width (RBC) [Ratio] 13.8 % Normal 11.6-14.6 [facility] Comment on above: Performed By: #### L 100.0100, L500.3400, L500.2500 #### [facility] [address] [place], [address] Hematocrit (Bld) [Volume fraction] 39.3 % Low 40-54 [facility] Comment on above: Performed By: #### L 100.0100, L500.3400, L500.2500 #### [facility] [address] [place], [address] Hemoglobin (Bld) [Mass/Vol] 13.1 g/dL Normal 13.0-16.5 [facility] Comment on above: Performed By: #### L 100.0100, L500.3400, L500.2500 #### [facility] [address] [place], [address] IG% 0.200 Normal 0.0-0.9 [facility] Comment on above: Result Comment: IG% - Immature Granulocytes (promyelocytes, myelocytes and metamyelocytes) > 1% indicates that a LEFT SHIFT is Present. Performed By: #### L 100.0100, L500.3400, L500.2500 #### [facility] [address] [place], [address] Lymphocytes/100 WBC (Bld) 19.6 % Normal 19-41 [facility] Comment on above: Performed By: #### L 100.0100, L500.3400, L500.2500 #### [facility] [address] [place], [address] MCH (RBC) [Entitic mass] 30.1 pg Normal 27.0-32.0 [facility] Comment on above: Performed By: #### L 100.0100, L500.3400, L500.2500 #### [facility] [address] [place], [address] MCHC (RBC) [Mass/Vol] 33.3 g/dL Normal 32-36 [facility] Comment on above: Performed By: #### L 100.0100, L500.3400, L500.2500 #### [facility] [address] [place], [address] MCV (RBC) [Entitic vol] 90.3 fL Normal 80-94 [facility] Comment on above: Performed By: #### L 100.0100, L500.3400, L500.2500 #### [facility] [address] [place], [address] Monocytes/100 WBC (Bld) 8.7 % Normal 0-10 [facility] Comment on above: Performed By: #### L 100.0100, L500.3400, L500.2500 #### [facility] [address] [place], [address] Neutrophils/100 WBC (Bld) 67.5 % Normal 47-70 [facility] Comment on above: Performed By: #### L 100.0100, L500.3400, L500.2500 #### [facility] [address] [place], [address] Nucleated RBC (Bld) [#/Vol] 0 10*3/uL Normal 0-5 [facility] Comment on above: Performed By: #### L 100.0100, L500.3400, L500.2500 #### [facility] [address] [place], [address] Platelet mean volume (Bld) [Entitic vol] 8.7 fL Normal 6.2-12.0 [facility] Comment on above: Performed By: #### L 100.0100, L500.3400, L500.2500 #### [facility] [address] [place], [address] Platelets (Bld) [#/Vol] 386 10*3/uL Normal 150-450 [facility] Comment on above: Performed By: #### L 100.0100, L500.3400, L500.2500 #### [facility] [address] [place], [address] RBC (Bld) [#/Vol] 4.35 10*6/uL Low 4.6-6.2 [facility] Comment on above: Performed By: #### L 100.0100, L500.3400, L500.2500 #### [facility] [address] [place], [address] RDW SD 45.1 fl High 35.1-43.9 [facility] Comment on above: Performed By: #### L 100.0100, L500.3400, L500.2500 #### [facility] [address] [place], [address] WBC (Bld) [#/Vol] 8.6 10*3/uL Normal 4.4-11.0 [facility] Comment on above: Performed By: #### L 100.0100, L500.3400, L500.2500 #### [facility] [address] [place], [address] CT Chest, Abd, Pel w/Contras ton 11-05-2024 CT Chest, Abd, Pel w/Contrast [facility] Imaging Services [address] [place] [address] CT Chest, Abd, Pel w/Contrast MR#: [id number] Acct: [id number] Name: WINSTON MARI Rep #: [id number] : 1955 M 69 From: Sorin galindo MD PCP: Dr. Eugenio Mayen, DO Status: [facility] ER Study: CT Chest, Abd, Pel w/Contrast Date of Exam: Exam# [id number] Ordering Dr: Dennis Strickland DO [id number] STUDY: CT CHEST, ABDOMEN T PELVIS WITH [...] Signed: Sorin Sorensen MD at 15:45 EST , CC: Dr. Eugenio Mayen DO; Dr. Dennis Strickland DO Building Construction Foreman: Signed Normal [facility] Carbon dioxide measurementOr dered By: Dennis Strickland on 11-05-2024 CO2 [Moles/Vol] 27.0 mmol/L 21.0-32.0 [facility] Chloride measurementOrdered By: Dennis Strickland on 11-05-2024 Chloride [Moles/Vol] 107 mmol/L 98-107 [facility] Elbow min 3 Viewson 11-05-19 25 Elbow min 3 Views [facility] Imaging Services [address] [place], [place] [address] Elbow min 3 Views MR#: [id number] Acct: [id number] Name: WINSTON MARI Rep #: [id number] : 1955 M 69 From: Richard Cortez DO PCP: Dr. Eugenio Mayen DO Status: REG ER Study: Elbow min 3 Views Date of Exam: 11/05/24 Exam# [id number] Ordering Dr: Dennis Strickland DO [id number] INDICATION: fall, pain EXAMINATION/TECHNIQUE: X-RAY - LEFT [...] Signed: Richard Cortez DO at 17:34 EST , CC: Dr. Eugenio Mayen DO; Dr. Dennis Strickland DO Building Construction Foreman: Signed Normal [facility] Emergency Department Summary on 11-05-2024 Emergency Department Summary [facility] Medical Records Department [address] [place] [address] Emergency Department Summary 11/05/24 MR#: [id number] Acct: [id number] Name: WINSTON MARI Rep #: [id number] : 1955 69 From: Dennis Strickland DO PCP: Dr. Eugenio Mayen DO Status:[facility] ER Location: ED ADDENDUM by Dr. Dennis Strickland DO on 11/05/24 at 1840 Patient is EKG reviewed and independently interpreted by myself showed sinus bradycardia with a rate of 51 bpm with evidence of first-degree AV block. 11/05/24 1840 Cosigner Signature (if applicable): cc: Dr. Eugenio Mayen, * Signed HPI History of Present Illness Chief Complaint: Fall Narrative Narrative: Patient is a 69-year-old male with a past medical history of epilepsy, hypercholesterolemia, sciatica, cerebral aneurysm status post clamping on Plavix who presents to the emergency department with a chief complaint of falling off a ladder. Patient states that he was changing lights on a wjqvc-ai-auprh and notes that when he was coming [...] fractures in his lower back as well. [facility] Medical History Hemorrhoid Epilepsy Sciatica High cholesterol Home Medications ???Medication ???Instructions ???Recorded ???Last Taken ???Type omeprazole 20 mg capsule,delayed 40 mg PO DAILY 03/23/22 Unknown History release gabapentin 300 mg capsule 300 mg PO 4X/DAY 04/02/22 Unknown History hydrocortisone acetate 25 mg 25 mg [place] QHS #12 ea 04/27/22 Unknown Rx rectal [...] AdvReac Rash Verified 11/05/24 14:16 hydrocodone (From [place]) AdvReac Upset Verified 11/05/24 14:16 Stomach ibuprofen [...] Abdomen: De (more content not included)... Normal [facility] Eosinophil percentageOrdered By: Dennis Strickland on 11-05-2024 Eosinophils/100 WBC (Bld) 3.3 % 0-5 [facility] Epithelial cells.squamous LM Ql (Urine sed)Ordered By: Dennis Strickland on 11-05-2024 Epithelial cells.squamous LM.HPF (Urine sed) [#/Area] 0 /[HPF] 0-5 [facility] Erythrocyte distribution wid th ratioOrdered By: Dennis Strickland on 11-05-2024 Erythrocyte distribution width (RBC) [Ratio] 13.8 % 11.6-14.6 [facility] Erythrocyte distribution wid th standard deviationOrdered By: Dennis Strickland on 11-05-2024 Erythrocyte distribution width (RBC) [Entitic vol] 45.1 fL High 35.1-43.9 [facility] Estimated glomerular filtrat ion rate (GFR) AmericanOrdered By: Dennis Strickland on 11-05-2024 Estimated GFR (MDRD) Amer 94 mL/min >60 [facility] Comment on above: GFR Calc Estimation of creatinine homa aranceOrdered By: Dennis Strickland on 11-05-2024 Estimated Creatinine Clearance Calc 70.59 ml/min [facility] Foot min 3 Viewson 5 Foot min 3 Views [facility] Imaging Services [address] [place] [address] Foot min 3 Views MR#: [id number] Acct: [id number] Name: WINSTON MARI Rep #: [id number] : 1955 M 69 From: Richard Cortez DO PCP: Dr. Eugenio Mayen DO Status: REG ER Study: Foot min 3 Views Date of Exam: 11/05/24 Exam# [id number] Ordering Dr: Dennis Strickland DO [id number] INDICATION: fall from ladder, heal pain EXAMINATION/TECHNIQUE: [...] Signed: Richard Cortez DO at 17:07 EST Reading Location ID and State: [facility] / [place] Tel [phone], Service support , CC: Dr. Eugenio Mayen DO; Dr. Dennis Strickland DO Building Construction Foreman: Signed Normal [facility] Foot min 3 Views [facility] Imaging Services [address] [place] [address] Foot min 3 Views MR#: [id number] Acct: [id number] Name: WINSTON MARI Rep #: [id number] : 1955 M 69 From: Richard Cortez DO PCP: Dr. Eugenio Mayen DO Status: REG ER Study: Foot min 3 Views Date of Exam: 11/05/24 Exam# [id number] Ordering Dr: Dennis Strickland DO [id number] INDICATION: PAIN, FALL EXAMINATION/TECHNIQUE: X-RAY - LEFT [...] Signed: Richard Cortez DO at 17:04 EST Reading Location ID and State: [facility] / [place] Tel [phone], Service support , CC: Dr. Eugenio Mayen DO; Dr. Dennis Strickland DO Building Construction Foreman: Signed Normal [facility] Glomerular filtration rate ( GFR) estimationOrdered By: Dennis Strickland on 11-05-2024 Estimated GFR (MDRD) Non-Af Amer 78 mL/min >60 [facility] Comment on above: Non- GFR Calc Glucose Ql (U)Ordered By: Ml Strickland on 11-05-2024 Urine Glucose (UA) Normal mg/dl Normal [facility] Glucose measurementOrdered B y: Dennis Strickland on 11-05-2024 Glucose [Mass/Vol] 80 mg/dL 74-106 [facility] Hematocrit Auto (Bld) [Volum e fraction]Ordered By: Dennis Strickland on 11-05-2024 Hematocrit (Bld) [Volume fraction] 39.3 % Low 40-54 [facility] Hemoglobin measurementOrdere d By: Dennis Strickland on 11-05-2024 Hemoglobin (Bld) [Mass/Vol] 13.1 g/dL 13.0-16.5 [facility] Humerus min 2 Viewson 2024 Humerus min 2 Views [facility] Imaging Services [address] [place] [address] Humerus min 2 Views MR#: [id number] Acct: [id number] Name: WINSTON MARI Rep #: [id number] : 1955 M 69 From: Richard Cortez DO PCP: Dr. Eugenio Mayen DO Status: REG ER Study: Humerus min 2 Views Date of Exam: 11/05/24 Exam# [id number] Ordering Dr: Dennis Strickland DO [id number] INDICATION: fall, pain EXAMINATION/TECHNIQUE: X-RAY - LEFT [...] 17:12 EST Reading Location ID and State: [facility] / [place] Tel [phone], Service support , CC: Dr. Eugenio Mayen DO; Dr. Dennis Strickland DO Building Construction Foreman: Signed Normal [facility] Immature granulocytes/100 WB C Auto (Bld)Ordered By: Dennis Strickland on 11-05-2024 Immature granulocytes/100 WBC (Bld) 0.200 % 0.0-0.9 [facility] Comment on above: IG% - Immature Granu locytes (promyelocytes, myelocytes and metamyelocytes) > 1% indicates that a LEFT SHIFT is Present. International normalized rat io (INR) calculationOrdered By: Dennis Strickland on 11-05-2024 INR Coag (Bld) [Relative time] 0.9 {INR} [facility] Ketones Test strip Ql (U)Ord ered By: Dennis Strickland on 11-05-2024 Ketones Ql (U) Negative Negative [facility] - Chemistry and C hemistry - challengeOrdered By: Dennis Strickland on 11-05-2024 AST [Catalytic activity/Vol] 11 U/L Low 15-37 [facility] Liver Profileon 11-05-2024 Albumin [Mass/Vol] 3.4 g/dL Normal 3.2-5.0 [facility] Comment on above: Performed By: #### L 500.2500, L500.3400 #### [facility] [address] [place], [address] ALK P 81 U/L Normal 45-117 [facility] Comment on above: Performed By: #### L 500.2500, L500.3400 #### [facility] [address] [place], [address] ALT [Catalytic activity/Vol] 11 U/L Low 16-61 [facility] Comment on above: Performed By: #### L 500.2500, L500.3400 #### [facility] [address] [place], [address] AST [Catalytic activity/Vol] 11 U/L Low 15-37 [facility] Comment on above: Performed By: #### L 500.2500, L500.3400 #### [facility] [address] [place], [address] Bilirubin [Mass/Vol] 1.00 mg/dL Normal 0.20-1.00 [facility] Comment on above: Result Comment: For patients on eltrombopag therapy, use of Dimension [place] TBIL is not recommended. Performed By: #### L 500.2500, L500.3400 #### [facility] [address] [place], [address] Bilirubin.direct [Mass/Vol] 0.21 mg/dL Normal 0.00-0.30 [facility] Comment on above: Performed By: #### L 500.2500, L500.3400 #### [facility] [address] [place], [address] Globulin (S) [Mass/Vol] 3.3 g/dL Normal 2.2-4.2 [facility] Comment on above: Performed By: #### L 500.2500, L500.3400 #### [facility] [address] [place], [address] T PROT 6.7 g/dL Normal 6.4-8.2 [facility] Comment on above: Performed By: #### L 500.2500, L500.3400 #### [facility] [address] [place], [address] ALB Normal 3.2-5.0 [facility] Comment on above: Result Comment: This specimen has been REJECTED due to Laboratory criteria: Hemolyzed. STANLEY has been notified of need of recollection. 11/05/24 1548 Heather Lollo Performed By: #### L 100.0100, L500.3400, L500.2500 #### [facility] [address] [place], [address] ALK P Normal 45-117 [facility] Comment on above: Result Comment: This specimen has been REJECTED due to Laboratory criteria: Hemolyzed. STANLEY has been notified of need of recollection. 11/05/24 1548 Heather Lollo Performed By: #### L 100.0100, L500.3400, L500.2500 #### [facility] [address] [place], [address] ALT Normal 16-61 [facility] Comment on above: Result Comment: This specimen has been REJECTED due to Laboratory criteria: Hemolyzed. STANLEY has been notified of need of recollection. 11/05/24 1548 Heather Lollo Performed By: #### L 100.0100, L500.3400, L500.2500 #### [facility] [facility] [address] [place], [address] AST Normal 15-37 [facility] Comment on above: Result Comment: This specimen has been REJECTED due to Laboratory criteria: Hemolyzed. STANLEY has been notified of need of recollection. 11/05/24 1548 Heather Lollo Performed By: #### L 100.0100, L500.3400, L500.2500 #### [facility] [address] [place], [address] D BILI Normal 0.00-0.30 [facility] Comment on above: Result Comment: This specimen has been REJECTED due to Laboratory criteria: Hemolyzed. STANLEY has been notified of need of recollection. 11/05/24 1548 Heather Lollo Performed By: #### L 100.0100, L500.3400, L500.2500 #### [facility] [address] [place], [address] T BILI Normal 0.20-1.00 [facility] Comment on above: Result Comment: This specimen has been REJECTED due to Laboratory criteria: Hemolyzed. STANLEY has been notified of need of recollection. 11/05/24 1548 Heather Lollo Performed By: #### L 100.0100, L500.3400, L500.2500 #### [facility] [address] [place], [address] T PROT Normal 6.4-8.2 [facility] Comment on above: Result Comment: This specimen has been REJECTED due to Laboratory criteria: Hemolyzed. STANLEY has been notified of need of recollection. 11/05/24 1548 Heather Lollo Performed By: #### L 100.0100, L500.3400, L500.2500 #### [facility] [address] [place], [address] Lymphocytes Auto (Unsp spec) [#/Vol]Ordered By: Dennis Strickland on 11-05-2024 Lymphocytes (Bld) [#/Vol] 1.68 10*3/uL 0.83-4.51 [facility] Lymphocytes/100 WBC Auto (Un sp spec)Ordered By: Dennis Strickland on 11-05-2024 Lymphocytes/100 WBC (Bld) 19.6 % 19-41 [facility] MCV (mean corpuscular volume ) determinationOrdered By: Dennis Strickland on 11-05-2024 MCV (RBC) [Entitic vol] 90.3 fL 80-94 [facility] Mean corpuscular hemoglobin (MCH) determinationOrdered By: Dennis Strickland on 11-05-2024 MCH (RBC) [Entitic mass] 30.1 pg 27.0-32.0 [facility] Mean corpuscular hemoglobin concentration (MCHC) determinationOrdered By: Dennis Strickland on 11-05-2024 MCHC (RBC) [Mass/Vol] 33.3 g/dL 32-36 [facility] Mean platelet volume determi nationOrdered By: Dennis Strickland on 11-05-2024 Platelet mean volume (Bld) [Entitic vol] 8.7 fL 6.2-12.0 [facility] Microscopic analysis of urin e for red blood cells (RBC)Ordered By: Dennis Strickland on 11-05-2024 Urine RBC 0-5 SEEN /hpf 0-5 [facility] Monocyte percentageOrdered B y: Dennis Strickland on 11-05-2024 Monocytes/100 WBC (Bld) 8.7 % 0-10 [facility] Mucus LM Ql (Urine sed)Order ed By: Dennis Strickland on 11-05-2024 Mucus Ql (Urine sed) 0 SEEN /hpf [facility] Neutrophil percentageOrdered By: Dennis Strickland on 11-05-2024 Neutrophils/100 WBC (Bld) 67.5 % 47-70 [facility] Nitrite Test strip Ql (U)Ord ered By: Dennis Strickland on 11-05-2024 Nitrite Ql (U) Negative Negative [facility] Nucleated red blood cell per centageOrdered By: Dennis Strickland on 11-05-2024 Nucleated RBC/100 WBC (Bld) [Ratio] 0 % 0-5 [facility] Partial Thromboplast Timeon 11-05-2024 aPTT Coag (Bld) [Time] 27.5 s Normal 24.1-36.2 [facility] Comment on above: Performed By: #### L 300.4310, L300.3900 ####[facility] [address] [place], [address] Platelet countOrdered By: Ml Strickland on 11-05-2024 Platelets (Bld) [#/Vol] 386 10*3/uL 150-450 [facility] Potassium measurementOrdered By: Dennis Strickland on 11-05-2024 Potassium [Moles/Vol] 3.6 mmol/L 3.5-5.1 [facility] Protein Test strip Ql (U)Ord ered By: Dennis Strickland on 11-05-2024 Protein Ql (U) 15 mg/dl High Negative [facility] Prothrombin Time w/INRon INR Coag (PPP) [Relative time] 0.9 {INR} Normal [facility] Comment on above: Performed By: #### L 300.4310, L300.3900 ####[facility] [address] [place], [address] PT Coag (PPP) [Time] 12.8 s Normal 11.7-14.9 [facility] Comment on above: Performed By: #### L 300.4310, L300.3900 ####[facility] [address] [place], [address] Prothrombin timeOrdered By: Dennis Strickland on 11-05-2024 PT Coag (PPP) [Time] 12.8 s 11.7-14.9 [facility] RBC Auto (Bld) [#/Vol]Ordere d By: Dennis Strickland on 11-05-2024 RBC (Bld) [#/Vol] 4.35 10*6/uL Low 4.6-6.2 [facility] Serum anion gap measurementO rdered By: Dennis Strickland on 11-05-2024 Anion gap [Moles/Vol] 6 mmol/L 5-15 [facility] Serum globulin measurementOr dered By: Dennis Strickland on 11-05-2024 Globulin (S) [Mass/Vol] 3.3 g/dL 2.2-4.2 [facility] Serum or plasma alanine jules otransferase (ALT) measurementOrdered By: Dennis Strickland on 11-05-2024 ALT [Catalytic activity/Vol] 11 U/L Low 16-61 [facility] Serum or plasma albumin doug urement (mass/volume)Ordered By: Dennis Strickland on 11-05-2024 Albumin [Mass/Vol] 3.4 g/dL 3.2-5.0 [facility] Serum or plasma alkaline reji sphatase measurementOrdered By: Dennis Strickland on 11-05-2024 ALP [Catalytic activity/Vol] 81 U/L 45-117 [facility] Serum or plasma calcium doug urement (mass/volume)Ordered By: Dennis Strickland on 11-05-2024 Calcium [Mass/Vol] 8.4 mg/dL Low 8.5-10.1 [facility] Serum or plasma creatinine m easurement (mass/volume)Ordered By: Dennis Strickland on 11-05-2024 Creatinine [Mass/Vol] 1.01 mg/dL 0.70-1.30 [facility] Comment on above: The validity of the calculated GFR & GFRAA in patients over 70 years has not been determined. Clinical correlation is essential. Serum or plasma urea nitroge n measurement (mass/volume)Ordered By: Dennis Strickland on 11-05-2024 Urea nitrogen [Mass/Vol] 12 mg/dL 7-18 [facility] Shoulder min 2 Viewson 11-05 Shoulder min 2 Views [facility] Imaging Services [address] [place] [address] Shoulder min 2 Views MR#: [id number] Acct: [id number] Name: WINSTON MARI Rep #: [id number] : 1955 M 69 From: Richard Cortez DO PCP: Dr. Eugenio Mayen DO Status: REG ER Study: Shoulder min 2 Views Date of Exam: 11/05/24 Exam# [id number] Ordering Dr: Dennis Strickland DO [id number] INDICATION: fall pain EXAMINATION/TECHNIQUE: X-RAY - LEFT [...] 17:00 EST Reading Location ID and State: [facility] / [place] Tel [phone], Service support , CC: Dr. Eugenio Mayen DO; Dr. Dennis Strickland DO Building Construction Foreman: Signed Normal [facility] Sodium levelOrdered By: Salazar Strickland on 11-05-2024 Sodium [Moles/Vol] 140 mmol/L 136-145 [facility] Spine Cervical without Contr ason 11-05-2024 Spine Cervical without Contras [facility] Imaging Services [address] [place] [address] Spine Cervical without Contras MR#: [id number] Acct: [id number] Name: WINSTON MARI Rep #: [id number] : 1955 M 69 From: Richard Cortez DO PCP: Dr. Eugenio Mayen DO Status: REG ER Study: Spine Cervical without Contras Date of Exam: 0 11/05/24 Exam# [id number] Ordering Dr: Dennis Strickland DO [id number] STUDY: CT CERVICAL SPINE WITHOUT CONTRAST REASON [...] 16:57 EST Reading Location ID and State: [facility] / [place] Tel [phone], Service support , CC: Dr. Eugenio Mayen DO; Dr. Dennis Strickland, DO Building Construction Foreman: Signed Normal [facility] Total proteinOrdered By: Roni Strickland on 11-05-2024 Protein [Mass/Vol] 6.7 g/dL 6.4-8.2 [facility] Transitional cells LM Ql (Ur ine sed)Ordered By: Dennis Strickland on 11-05-2024 Urine Transitional Epithelial Cells 0-5 SEEN /hpf 0-5 [facility] Urinalysis, Completeon 11-05 BACTERIA RARE Normal None Seen [facility] Comment on above: Order Comment: CLEAN CATCH Performed By: #### L 400.0001 ####[facility] [address] [place], [address] WBC 0-5 SEEN Normal 0-5 [facility] Comment on above: Order Comment: CLEAN CATCH Performed By: #### L 400.0001 ####[facility] [address] [place], [address] RBC 0-5 SEEN Normal 0-5 [facility] Comment on above: Order Comment: CLEAN CATCH Performed By: #### L 400.0001 ####[facility] [address] [place], [address] EPI,TRANSITION 0-5 SEEN Normal 0-5 [facility] Comment on above: Order Comment: CLEAN CATCH Performed By: #### L 400.0001 ####[facility] [address] [place], [address] EPI,SQUAMOUS 0-5 SEEN Normal 0-5 [facility] Comment on above: Order Comment: CLEAN CATCH Performed By: #### L 400.0001 ####[facility] [address] [place], [address] Mucus Ql (Urine sed) 0 SEEN Normal [facility] Comment on above: Order Comment: CLEAN CATCH Performed By: #### L 400.0001 ####[facility] [address] [place], [address] Urine blood detectionOrdered By: Dennis Strickland on 11-05-2024 Urine Occult Blood 10 /ul High Negative [facility] Urine clarityOrdered By: Roni Strickland on 11-05-2024 Clarity (U) Clear Clear [facility] Urine color determinationOrd ered By: Dennis Strickland on 11-05-2024 Color (U) Yellow Yellow [facility] Urine leukocyte esterase det ection by dipstickOrdered By: Dennis Strickland on 11-05-2024 Leukocyte esterase Test strip Ql (U) Negative Negative [facility] Urine pHOrdered By: Dennis vazquez on 11-05-2024 pH (U) 7.0 [pH] 5.0 - 8.0 [facility] Urine specific gravity measu rementOrdered By: Dennis Strickland on 11-05-2024 Specific gravity (U) [Rel density] 1.010 1.002-1.03 0 [facility] Urobilinogen Ql (U)Ordered B y: Dennis Strickland on 11-05-2024 Urine Urobilinogen Normal mg/dl Normal [facility] White blood cell (WBC) count Ordered By: Dennis Strickland on 11-05-2024 WBC (Bld) [#/Vol] 8.6 10*3/uL 4.4-11.0 [facility] White blood cell countOrdere d By: Dennis Strickland on 11-05-2024 Urine WBC 0-5 SEEN /hpf 0-5 [facility] aPTT Coag (PPP) [Time]Ordere d By: Dennis Strickland on 11-05-2024 aPTT Coag (Bld) [Time] 27.5 s 24.1-36.2 [facility] XR SHOULDER MINIMUM 2 VIEWS [...] 09/13/2024 4:03:15 PM Ordering Provider: EUGENIO MAYEN Normal [facility] Abdomen/Pelvis without Conto n 07-06-2024 Abdomen/Pelvis without Cont [facility] Imaging Services [address] [place] [address] [id number] Abdomen/Pelvis without Cont MR#: [id number] Acct: [id number] Name: WINSTON MARI Paul Rep #: [id number] : 1955 69 From: Richard Cortez DO PCP: Dr. Eugenio Mayen, DO Status: REG ER Study: Abdomen/Pelvis without Cont Date of Exam: 06/22 03/14 Exam# [id number] Ordering Dr: Abril Velarde DO [id number] STUDY: CT ABDOMEN AND PELVIS WITHOUT CONTRAST [...] Signed: Richard Cortez DO at 19:44 EDT Reading Location ID and State: [facility] / [place] Tel [phone], Service support , CC: Dr. Eugenio Mayen DO; Dr. Abril Velarde DO Building Construction Foreman: Signed Normal [facility] Basic Metabolic Profile (BMP )on 07-06-2024 BUN/CRE 15.3 RATIO Normal 10-20 [facility] Comment on above: Performed By: #### L 500.2500, L100.0100 ####[facility] [address] [place], [address] CA,Total 9.5 mg/dL Normal 8.5-10.1 [facility] Comment on above: Performed By: #### L 500.2500, L100.0100 ####[facility] [address] [place], [address] Chloride [Moles/Vol] 103 mmol/L Normal 98-107 [facility] Comment on above: Performed By: #### L 500.2500, L100.0100 ####[facility] [address] [place], [address] CO2 [Moles/Vol] 27.0 mmol/L Normal 21.0-32.0 [facility] Comment on above: Performed By: #### L 500.2500, L100.0100 ####[facility] [address] [place], [address] Creatinine [Mass/Vol] 1.11 mg/dL Normal 0.70-1.30 [facility] Comment on above: Result Comment: The validity of the calculated GFR GFRAA in patients over 70 years has not been determined. Clinical correlation is essential. Performed By: #### L 500.2500, L100.0100 ####[facility] [address] [place], [address] ECRCL 61.75 ml/min Normal [facility] Comment on above: Performed By: #### L 500.2500, L100.0100 ####[facility] [address] [place], [address] EST GFR - AA 85 mL/min Normal >60 [facility] Comment on above: Result Comment: Afri can Congolese GFR Calc Performed By: #### L 500.2500, L100.0100 ####[facility] [address] [place], [address] GAP 6 Normal 5-15 [facility] Comment on above: Performed By: #### L 500.2500, L100.0100 ####[facility] [address] [place], [address] GFR/1.73 sq M.predicted among non-blacks MDRD (S/P/Bld) [Vol rate/Area] 70 mL/min/{1.73_m2} Normal >60 [facility] Comment on above: Result Comment: Non- GFR Calc Performed By: #### L 500.2500, L100.0100 ####[facility] [address] [place], [address] Glucose [Mass/Vol] 96 mg/dL Normal 74-106 [facility] Comment on above: Performed By: #### L 500.2500, L100.0100 ####[facility] [address] [place], [address] Potassium [Moles/Vol] 3.7 mmol/L Normal 3.5-5.1 [facility] Comment on above: Performed By: #### L 500.2500, L100.0100 ####[facility] [address] [place], [address] Sodium [Moles/Vol] 136 mmol/L Normal 136-145 [facility] Comment on above: Performed By: #### L 500.2500, L100.0100 ####[facility] [address] [place], [address] Urea nitrogen [Mass/Vol] 17 mg/dL Normal 7-18 [facility] Comment on above: Performed By: #### L 500.2500, L100.0100 ####[facility] [address] [place], [address] CBC W/Diff, Automatedon 06-22-2023 Absolute Lymph 2.02 X10 3/uL Normal 0.83-4.51 [facility] Comment on above: Performed By: #### L 500.2500, L100.0100 ####[facility] [address] [place], [address] Absolute Neut 5.4 X10 3/uL Normal 2.0-7.7 [facility] Comment on above: Performed By: #### L 500.2500, L100.0100 ####[facility] [address] [place], [address] Basophils/100 WBC (Bld) 0.6 % Normal 0-1 [facility] Comment on above: Performed By: #### L 500.2500, L100.0100 ####[facility] [address] [place], [address] Eosinophils/100 WBC (Bld) 4.4 % Normal 0-5 [facility] Comment on above: Performed By: #### L 500.2500, L100.0100 ####[facility] [address] [place], [address] Erythrocyte distribution width (RBC) [Ratio] 13.3 % Normal 11.6-14.6 [facility] Comment on above: Performed By: #### L 500.2500, L100.0100 ####[facility] [address] [place], [address] Hematocrit (Bld) [Volume fraction] 40.1 % Normal 40-54 [facility] Comment on above: Performed By: #### L 500.2500, L100.0100 ####[facility] [address] [place], [address] Hemoglobin (Bld) [Mass/Vol] 13.1 g/dL Normal 13.0-16.5 [facility] Comment on above: Performed By: #### L 500.2500, L100.0100 ####[facility] [address] [place], [address] IG% 0.200 Normal 0.0-0.9 [facility] Comment on above: Result Comment: IG% - Immature Granulocytes (promyelocytes, myelocytes and metamyelocytes) > 1% indicates that a LEFT SHIFT is Present. Performed By: #### L 500.2500, L100.0100 ####[facility] [address] [place], [address] Lymphocytes/100 WBC (Bld) 22.9 % Normal 19-41 [facility] Comment on above: Performed By: #### L 500.2500, L100.0100 ####[facility] [address] [place], [address] MCH (RBC) [Entitic mass] 29.8 pg Normal 27.0-32.0 [facility] Comment on above: Performed By: #### L 500.2500, L100.0100 ####[facility] [address] [place], [address] MCHC (RBC) [Mass/Vol] 32.7 g/dL Normal 32-36 [facility] Comment on above: Performed By: #### L 500.2500, L100.0100 ####[facility] [address] [place], [address] MCV (RBC) [Entitic vol] 91.1 fL Normal 80-94 [facility] Comment on above: Performed By: #### L 500.2500, L100.0100 ####[facility] [address] [place], [address] Monocytes/100 WBC (Bld) 10.5 % High 0-10 [facility] Comment on above: Performed By: #### L 500.2500, L100.0100 ####[facility] [address] [place], [address] Neutrophils/100 WBC (Bld) 61.4 % Normal 47-70 [facility] Comment on above: Performed By: #### L 500.2500, L100.0100 ####[facility] [address] [place], [address] Nucleated RBC (Bld) [#/Vol] 0 10*3/uL Normal 0-5 [facility] Comment on above: Performed By: #### L 500.2500, L100.0100 ####[facility] [address] [place], [address] Platelet mean volume (Bld) [Entitic vol] 8.9 fL Normal 6.2-12.0 [facility] Comment on above: Performed By: #### L 500.2500, L100.0100 ####[facility] [address] [place], [address] Platelets (Bld) [#/Vol] 337 10*3/uL Normal 150-450 [facility] Comment on above: Performed By: #### L 500.2500, L100.0100 ####[facility] [address] [place], [address] RBC (Bld) [#/Vol] 4.40 10*6/uL Low 4.6-6.2 [facility] Comment on above: Performed By: #### L 500.2500, L100.0100 ####[facility] [address] [place], [address] RDW SD 44.9 fl High 35.1-43.9 [facility] Comment on above: Performed By: #### L 500.2500, L100.0100 ####[facility] [address] [place], [address] WBC (Bld) [#/Vol] 8.8 10*3/uL Normal 4.4-11.0 [facility] Comment on above: Performed By: #### L 500.2500, L100.0100 ####[facility] [address] [place], [address] Emergency Department Summary on 07-06-2024 Emergency Department Summary [facility] Medical Records Department [address] [place] [address] Emergency Department Summary 07/06/24 MR#: [id number] Acct: [id number] Name: WINSTON MARI Rep #: [id number] : 1955 69 From: Abril Velarde DO [...] Denies fever. Denies injury to his back. PFSH PFS Medical History Epilepsy Hemorrhoid High cholesterol Sciatica Home Medications ???Medication ???Instructions ???Recorded ???Last Taken ???Type omeprazole 20 mg capsule,delayed 40 mg PO DAILY 03/23/22 Unknown History release gabapentin 300 mg capsule 300 mg PO 4X/DAY 04/02/22 Unknown History hydrocortisone acetate 25 mg 25 mg [place] QHS #12 ea 04/27/22 Unknown Rx rectal [...] AdvReac Rash Verified 07/06/24 17:55 hydrocodone (From [place]) AdvReac Upset Verified 07/06/24 17:55 Stomach ibuprofen [...] TM's c (more content not included)... Normal [facility] Urinalysis, Completeon 07-06 EPI,SQUAMOUS 0-5 SEEN Normal 0-5 [facility] Comment on above: Order Comment: CLEAN CATCH Performed By: #### L 400.0001 #### [facility] [address] [place] [place], [address] BACTERIA 0 SEEN Normal None Seen [facility] Comment on above: Order Comment: CLEAN CATCH Performed By: #### L 400.0001 #### [facility] [address] [place] [place], [address] Mucus Ql (Urine sed) 0 SEEN Normal [facility] Comment on above: Order Comment: CLEAN CATCH Performed By: #### L 400.0001 #### [facility] [address] [place], [address] RBC 0 SEEN Normal 0-5 [facility] Comment on above: Order Comment: CLEAN CATCH Performed By: #### L 400.0001 #### [facility] [address] [place], [address] WBC 0 SEEN Normal 0-5 [facility] Comment on above: Order Comment: CLEAN CATCH Performed By: #### L 400.0001 #### [facility] [address] [place], [address] Urine Cultureon 07-02-2024 [facility] Culture exhibits no growth. Normal [facility] Comment on above: Performed By: #### M 100.2200 ####[facility] [address] [place], [address] Abdomen/Pelvis W IV Cont ONL Yon 07-01-2024 Abdomen/Pelvis W IV Cont ONLY [facility] Imaging Services [address] [place] [address] Abdomen/Pelvis W IV Cont ONLY MR#: [id number] Acct: [id number] Name: WINSTON MARI Rep #: [id number] : 1955 M 69 From: Will Cuellar MD PCP: Dr. Eugenio Mayen, DO Status: REG ER Study: Abdomen/Pelvis W IV Cont ONLY Date of Exam: Exam# [id number] Ordering Dr: Barrett Leonard DO [id number] STUDY: CT ABDOMEN AND PELVIS WITH CONTRAST [...] CC: Dr. Eugenio Mayen, DO; Dr. Barrett Leonard, DO Building Construction Foreman: Signed Normal [facility] CBC W/Diff, Automatedon 06-22 0-2023 Absolute Lymph 1.94 X10 3/uL Normal 0.83-4.51 [facility] Comment on above: Performed By: #### L 400.0001 #### [facility] [address] [place], [address] Absolute Neut 4.0 X10 3/uL Normal 2.0-7.7 [facility] Comment on above: Performed By: #### L 400.0001 #### [facility] [address] [place], [address] Basophils/100 WBC (Bld) 1.0 % Normal 0-1 [facility] Comment on above: Performed By: #### L 400.0001 #### [facility] [address] [place], [address] Eosinophils/100 WBC (Bld) 4.9 % Normal 0-5 [facility] Comment on above: Performed By: #### L 400.0001 #### [facility] [address] [place], [address] Erythrocyte distribution width (RBC) [Ratio] 13.6 % Normal 11.6-14.6 [facility] Comment on above: Performed By: #### L 400.0001 #### [facility] [address] [place], [address] Hematocrit (Bld) [Volume fraction] 40.8 % Normal 40-54 [facility] Comment on above: Performed By: #### L 400.0001 #### [facility] [address] [place], [address] Hemoglobin (Bld) [Mass/Vol] 13.4 g/dL Normal 13.0-16.5 [facility] Comment on above: Performed By: #### L 400.0001 #### [facility] [address] [place], [address] IG% 0.300 Normal 0.0-0.9 [facility] Comment on above: Result Comment: IG% - Immature Granulocytes (promyelocytes, myelocytes and metamyelocytes) > 1% indicates that a LEFT SHIFT is Present. Performed By: #### L 400.0001 #### [facility] [address] [place], [address] Lymphocytes/100 WBC (Bld) 28.1 % Normal 19-41 [facility] Comment on above: Performed By: #### L 400.0001 #### [facility] [address] [place], [address] MCH (RBC) [Entitic mass] 29.9 pg Normal 27.0-32.0 [facility] Comment on above: Performed By: #### L 400.0001 #### [facility] [address] [place], [address] MCHC (RBC) [Mass/Vol] 32.8 g/dL Normal 32-36 [facility] Comment on above: Performed By: #### L 400.0001 #### [facility] [address] [place], [address] MCV (RBC) [Entitic vol] 91.1 fL Normal 80-94 [facility] Comment on above: Performed By: #### L 400.0001 #### [facility] [address] [place], [address] Monocytes/100 WBC (Bld) 8.0 % Normal 0-10 [facility] Comment on above: Performed By: #### L 400.0001 #### [facility] [address] [place], [address] Neutrophils/100 WBC (Bld) 57.7 % Normal 47-70 [facility] Comment on above: Performed By: #### L 400.0001 #### [facility] [address] [place], [address] Nucleated RBC (Bld) [#/Vol] 1.3 10*3/uL Normal 0-5 [facility] Comment on above: Performed By: #### L 400.0001 #### [facility] [address] [place], [address] Platelet mean volume (Bld) [Entitic vol] 9.0 fL Normal 6.2-12.0 [facility] Comment on above: Performed By: #### L 400.0001 #### [facility] [address] [place], [address] Platelets (Bld) [#/Vol] 408 10*3/uL Normal 150-450 [facility] Comment on above: Performed By: #### L 400.0001 #### [facility] [address] [place], [address] RBC (Bld) [#/Vol] 4.48 10*6/uL Low 4.6-6.2 [facility] Comment on above: Performed By: #### L 400.0001 #### [facility] [address] [place], [address] RDW SD 45.5 fl High 35.1-43.9 [facility] Comment on above: Performed By: #### L 400.0001 #### [facility] [address] [place], [address] WBC (Bld) [#/Vol] 6.9 10*3/uL Normal 4.4-11.0 [facility] Comment on above: Performed By: #### L 400.0001 #### [facility] [address] [place], [address] Comprehensive Metabolic Prof ilon 07-01-2024 Albumin [Mass/Vol] 4.2 g/dL Normal 3.2-5.0 [facility] Comment on above: Performed By: #### L 400.0001 #### [facility] [address] [place], [address] Albumin/Globulin [Mass ratio] 1.0 {ratio} Normal 0.9-2.4 [facility] Comment on above: Performed By: #### L 400.0001 #### [facility] [address] [place], [address] ALK P 90 U/L Normal 45-117 [facility] Comment on above: Performed By: #### L 400.0001 #### [facility] [address] [place], [address] ALT [Catalytic activity/Vol] 23 U/L Normal 16-61 [facility] Comment on above: Performed By: #### L 400.0001 #### [facility] [address] [place], [address] AST [Catalytic activity/Vol] 14 U/L Low 15-37 [facility] Comment on above: Performed By: #### L 400.0001 #### [facility] [address] [place], [address] Bilirubin [Mass/Vol] 0.80 mg/dL Normal 0.20-1.00 [facility] Comment on above: Result Comment: For patients on eltrombopag therapy, use of Dimension [place] TBIL is not recommended. Performed By: #### L 400.0001 #### [facility] [address] [place], [address] BUN/CRE 13.4 RATIO Normal 10-20 [facility] Comment on above: Performed By: #### L 400.0001 #### [facility] [address] [place], [address] CA,Total 9.4 mg/dL Normal 8.5-10.1 [facility] Comment on above: Performed By: #### L 400.0001 #### [facility] [address] [place], [address] Chloride [Moles/Vol] 105 mmol/L Normal 98-107 [facility] Comment on above: Performed By: #### L 400.0001 #### [facility] [address] [place], [address] CO2 [Moles/Vol] 29.0 mmol/L Normal 21.0-32.0 [facility] Comment on above: Performed By: #### L 400.0001 #### [facility] [address] [place], [address] Creatinine [Mass/Vol] 1.19 mg/dL Normal 0.70-1.30 [facility] Comment on above: Result Comment: The validity of the calculated GFR GFRAA in patients over 70 years has not been determined. Clinical correlation is essential. Performed By: #### L 400.0001 #### [facility] [address] [place], [address] ECRCL 59.20 ml/min Normal [facility] Comment on above: Performed By: #### L 400.0001 #### [facility] [address] [place], [address] EST GFR - AA 78 mL/min Normal >60 [facility] Comment on above: Result Comment: Afri can Congolese GFR Calc Performed By: #### L 400.0001 #### [facility] [address] [place], [address] GAP 5 Normal 5-15 [facility] Comment on above: Performed By: #### L 400.0001 #### [facility] [address] [place], [address] GFR/1.73 sq M.predicted among non-blacks MDRD (S/P/Bld) [Vol rate/Area] 65 mL/min/{1.73_m2} Normal >60 [facility] Comment on above: Result Comment: Non- GFR Calc Performed By: #### L 400.0001 #### [facility] [address] [place], [address] Globulin (S) [Mass/Vol] 4.1 g/dL Normal 2.2-4.2 [facility] Comment on above: Performed By: #### L 400.0001 #### [facility] [address] [place], [address] Glucose [Mass/Vol] 95 mg/dL Normal 74-106 [facility] Comment on above: Performed By: #### L 400.0001 #### [facility] [address] [place], [address] Potassium [Moles/Vol] 3.9 mmol/L Normal 3.5-5.1 [facility] Comment on above: Performed By: #### L 400.0001 #### [facility] [address] [place], [address] Sodium [Moles/Vol] 139 mmol/L Normal 136-145 [facility] Comment on above: Performed By: #### L 400.0001 #### [facility] [address] [place], [address] T PROT 8.3 g/dL High 6.4-8.2 [facility] Comment on above: Performed By: #### L 400.0001 #### [facility] [address] [place], [address] Urea nitrogen [Mass/Vol] 16 mg/dL Normal 7-18 [facility] Comment on above: Performed By: #### L 400.0001 #### [facility] [address] [place], [address] Emergency Department Summary on 07-01-2024 Emergency Department Summary [facility] Medical Records Department [address] [place] [address] Emergency Department Summary 07/01/24 MR#: [id number] Acct: [id number] Name: WINSTON MARI Rep #: [id number] : 1955 69 From: Barrett Leonard DO PCP: Dr. Eugenio Mayen, DO Status:REG ER Location: ED HPI History of Present Illness Chief Complaint: Flank Pain PFSH PFS Medical History Epilepsy Hemorrhoid High cholesterol Sciatica Home Medications ???Medication ???Instructions ???Recorded ???Last Taken ???Type omeprazole 20 mg capsule,delayed 40 mg PO DAILY 03/23/22 Unknown History release gabapentin 300 mg capsule 300 mg PO 4X/DAY 04/02/22 Unknown History hydrocortisone acetate 25 mg 25 mg [place] QHS #12 ea 04/27/22 Unknown Rx rectal [...] AdvReac Rash Verified 07/01/24 19:41 hydrocodone (From [place]) AdvReac Upset Verified 07/01/24 19:41 Stomach ibuprofen [...] Oxygen Delivery Method Room Air Room Air MDM MDM MDM Narrative Medical decision making narrative: HISTORY OF [...] of the (more content not included)... Normal [facility] Lactic Acidon 07-01-2024 Lactate [Moles/Vol] 0.8 mmol/L Normal 0.4-1.9 [facility] Comment on above: Order Comment: CLEAN CATCH Performed By: #### L 400.0001 #### [facility] [address] [place], [place], [address] Lipaseon 07-01-2024 Lipase [Catalytic activity/Vol] 29 U/L Normal 13-75 [facility] Comment on above: Result Comment: Plea se note: LIPASE revised reference range effective 23. New Lipase methodology. Expected to produce lower values than the previous assay method. NEW Reference Range: 13 - 75 U/L Performed By: #### L 400.0001 #### [facility] [address] [place], [address] Urinalysis, Completeon 07-01 BACTERIA 2+ /hpf Normal None Seen [facility] Comment on above: Order Comment: CLEAN CATCH Performed By: #### L 400.0001 #### [facility] [address] [place], [address] WBC >100 SEEN Normal 0-5 [facility] Comment on above: Order Comment: CLEAN CATCH Performed By: #### L 400.0001 #### [facility] [address] [place], [address] BILIRUBIN URINE Negative Normal Negative [facility] Comment on above: Order Comment: CLEAN CATCH Performed By: #### L 400.0001 #### [facility] [address] [place], [address] Clarity (U) Sl. Cloudy Normal Clear [facility] Comment on above: Order Comment: CLEAN CATCH Performed By: #### L 400.0001 #### [facility] [address] [place], [address] Color (U) Yellow Normal Yellow [facility] Comment on above: Order Comment: CLEAN CATCH Performed By: #### L 400.0001 #### [facility] [address] [place], [address] GLUCOSE, UR Normal Normal Normal [facility] Comment on above: Order Comment: CLEAN CATCH Performed By: #### L 400.0001 #### [facility] [address] [place], [address] KETONE UR Negative Normal Negative [facility] Comment on above: Order Comment: CLEAN CATCH Performed By: #### L 400.0001 #### [facility] [address] [place], [address] LEUK ESTERASE 500 /ul Abnormal Negative [facility] Comment on above: Order Comment: CLEAN CATCH Performed By: #### L 400.0001 #### [facility] [address] [place], [address] Nitrite Ql (U) Negative Normal Negative [facility] Comment on above: Order Comment: CLEAN CATCH Performed By: #### L 400.0001 #### [facility] [address] [place], [address] OCCULT BLOOD-UR Negative Normal Negative [facility] Comment on above: Order Comment: CLEAN CATCH Performed By: #### L 400.0001 #### [facility] [address] [place], [address] pH UR 7.0 Normal 5.0 - 8.0 [facility] Comment on above: Order Comment: CLEAN CATCH Performed By: #### L 400.0001 #### [facility] [address] [place], [address] PROT DIPSTX 15 mg/dl Abnormal Negative [facility] Comment on above: Order Comment: CLEAN CATCH Performed By: #### L 400.0001 #### [facility] [address] [place], [address] SP.GR. DIPSTX 1.005 Normal 1.002-1.03 0 [facility] Comment on above: Order Comment: CLEAN CATCH Performed By: #### L 400.0001 #### [facility] [address] [place], [address] UROBILI Normal Normal Normal [facility] Comment on above: Order Comment: CLEAN CATCH Performed By: #### L 400.0001 #### [facility] [address] [place], [address] EPI,SQUAMOUS 0 SEEN Normal 0-5 [facility] Comment on above: Order Comment: CLEAN CATCH Performed By: #### L 400.0001 #### [facility] [address] [place], [address] Mucus Ql (Urine sed) 0 SEEN Normal [facility] Comment on above: Order Comment: CLEAN CATCH Performed By: #### L 400.0001 #### [facility] [address] [place], [address] RBC 0 SEEN Normal 0-5 [facility] Comment on above: Order Comment: CLEAN CATCH Performed By: #### L 400.0001 #### [facility] [address] [place], [address] BACTERIA Normal None Seen [facility] Comment on above: Order Comment: CLEAN CATCH Result Comment: PT D ISCHARGED Performed By: #### L 400.0001 #### [facility] [address] [place], [address] BILIRUBIN URINE Normal Negative [facility] Comment on above: Order Comment: CLEAN CATCH Result Comment: PT D ISCHARGED Performed By: #### L 400.0001 #### [facility] [address] [place], [address] Clarity (U) Normal Clear [facility] Comment on above: Order Comment: CLEAN CATCH Result Comment: PT D ISCHARGED Performed By: #### L 400.0001 #### [facility] [address] [place], [address] Color (U) Normal Yellow [facility] Comment on above: Order Comment: CLEAN CATCH Result Comment: PT D ISCHARGED Performed By: #### L 400.0001 #### [facility] [address] [place], [address] EPI,SQUAMOUS Normal 0-5 [facility] Comment on above: Order Comment: CLEAN CATCH Result Comment: PT D ISCHARGED Performed By: #### L 400.0001 #### [facility] [address] [place], [address] GLUCOSE, UR Normal Normal [facility] Comment on above: Order Comment: CLEAN CATCH Result Comment: PT D ISCHARGED Performed By: #### L 400.0001 #### [facility] [address] [place], [address] KETONE UR Normal Negative [facility] Comment on above: Order Comment: CLEAN CATCH Result Comment: PT D ISCHARGED Performed By: #### L 400.0001 #### [facility] [address] [place], [address] LEUK ESTERASE Normal Negative [facility] Comment on above: Order Comment: CLEAN CATCH Result Comment: PT D ISCHARGED Performed By: #### L 400.0001 #### [facility] [address] [place], [address] Mucus Ql (Urine sed) Normal [facility] Comment on above: Order Comment: CLEAN CATCH Result Comment: PT D ISCHARGED Performed By: #### L 400.0001 #### [facility] [address] [place], [address] Nitrite Ql (U) Normal Negative [facility] Comment on above: Order Comment: CLEAN CATCH Result Comment: PT D ISCHARGED Performed By: #### L 400.0001 #### [facility] [address] [place], [address] OCCULT BLOOD-UR Normal Negative [facility] Comment on above: Order Comment: CLEAN CATCH Result Comment: PT D ISCHARGED Performed By: #### L 400.0001 #### [facility] [address] [place], [address] pH UR Normal 5.0 - 8.0 [facility] Comment on above: Order Comment: CLEAN CATCH Result Comment: PT D ISCHARGED Performed By: #### L 400.0001 #### [facility] [address] [place], [address] PROT DIPSTX Normal Negative [facility] Comment on above: Order Comment: CLEAN CATCH Result Comment: PT D ISCHARGED Performed By: #### L 400.0001 #### [facility] [address] [place], [address] RBC Normal 0-5 [facility] Comment on above: Order Comment: CLEAN CATCH Result Comment: PT D ISCHARGED Performed By: #### L 400.0001 #### [facility] [address] [place], [address] SP.GR. DIPSTX Normal 1.002-1.03 0 [facility] Comment on above: Order Comment: CLEAN CATCH Result Comment: PT D ISCHARGED Performed By: #### L 400.0001 #### [facility] [address] [place], [address] UR Preservative Normal [facility] Comment on above: Order Comment: CLEAN CATCH Result Comment: PT D ISCHARGED Performed By: #### L 400.0001 #### [facility] [address] [place], [address] UROBILI Normal Normal [facility] Comment on above: Order Comment: CLEAN CATCH Result Comment: PT D ISCHARGED Performed By: #### L 400.0001 #### [facility] [address] [place], [address] WBC Normal 0-5 [facility] Comment on above: Order Comment: CLEAN CATCH Result Comment: PT D ISCHARGED Performed By: #### L 400.0001 #### [facility] [address] [place], [address] MUMPSon 12-11-2023 Mumps Ab Positive Normal [facility] ([place] Comment on above: Result Comment: INTE RPRETATION [...] CMP, LIPID, GFR, ANEU, PSA, FERR #### [facility] [address] [place], [place] [address] #### HCV1, VARIS, MUMP, RUBEO, RUBIS #### [address] [address] RUBEOon 12-11-2023 Rubeola IgG Ab Positive Normal [facility] ([place] Comment on above: Result Comment: INTE RPRETATION [...] CMP, LIPID, GFR, ANEU, PSA, FERR #### [address] [address] #### HCV1, VARIS, MUMP, RUBEO, RUBIS #### [place] [id number] VARISon 12-11-[address] Positive Normal [facility] ([place] Comment on above: Result Comment: INTE RPRETATION [...] CMP, LIPID, GFR, ANEU, PSA, FERR #### [address] [address] #### HCV1, VARIS, MUMP, RUBEO, RUBIS #### [place] [address] CT THORAX W/O CONTRASTon CT THORAX W/O [...] 12/08/2023 2:59:30 PM Ordering Provider: EUGENIO MAYEN [facility] ([place]) HCVon 12-08-2023 Hep C Ab Non-Reactive Normal Non-Reacti ve [facility] ([place] Comment on above: Performed By: #### M G, CBC, FES, VIDH, ADIFF, CMP, LIPID, GFR, ANEU, PSA, FERR #### [address] [address] #### HCV1, VARIS, MUMP, RUBEO, RUBIS #### [address] [address] Hep C Ab Int [facility]) Comment on above: Result Comment: Nonr eactive: [...] CMP, LIPID, GFR, ANEU, PSA, FERR #### [place] [address] #### HCV1, VARIS, MUMP, RUBEO, RUBIS #### [address] [address] RUBISon 12-08-[address] Positive Normal Positive [facility] ([place] Comment on above: Result Comment: This immune [...] CMP, LIPID, GFR, ANEU, PSA, FERR #### [place] [address] #### HCV1, VARIS, MUMP, RUBEO, RUBIS #### [place] [address] .Auto Diffon 12-07-2023 Basophil, Absolute 0.1 10 3/mcL Normal 0.0-0.2 Counts include 234 beds at the [facility] ([place] Comment on above: Performed By: #### M G, CBC, FES, VIDH, ADIFF, CMP, LIPID, GFR, ANEU, PSA, FERR #### [place] [address] #### HCV1, VARIS, MUMP, RUBEO, RUBIS #### [address] [address] Basophils/100 WBC (Bld) 1.1 % Normal 0.0-2.5 [facility] ([place] Comment on above: Performed By: #### M G, CBC, FES, VIDH, ADIFF, CMP, LIPID, GFR, ANEU, PSA, FERR #### [place] [address] #### HCV1, VARIS, MUMP, RUBEO, RUBIS #### [place] [address] Eosinophil, Absolute 0.4 10 3/mcL Normal 0.0-0.4 [facility] ([place]) Comment on above: Performed By: #### M G, CBC, FES, VIDH, ADIFF, CMP, LIPID, GFR, ANEU, PSA, FERR #### [address] [address] #### HCV1, VARIS, MUMP, RUBEO, RUBIS #### [address] [address] Eosinophils/100 WBC (Bld) 7.0 % Normal 0.0-7.0 [facility] ([place] Comment on above: Performed By: #### M G, CBC, FES, VIDH, ADIFF, CMP, LIPID, GFR, ANEU, PSA, FERR #### [address] [address] #### HCV1, VARIS, MUMP, RUBEO, RUBIS #### [address] [address] Lymphocyte, Absolute 1.6 10 3/mcL Normal 0.8-3.9 [facility] ([place]) Comment on above: Performed By: #### M G, CBC, FES, VIDH, ADIFF, CMP, LIPID, GFR, ANEU, PSA, FERR #### [address] [address] #### HCV1, VARIS, MUMP, RUBEO, RUBIS #### [address] [address] Lymphocytes/100 WBC (Bld) 25.1 % Normal 10.0-50.0 [facility] ([place] Comment on above: Performed By: #### M G, CBC, FES, VIDH, ADIFF, CMP, LIPID, GFR, ANEU, PSA, FERR #### [address] [address] #### HCV1, VARIS, MUMP, RUBEO, RUBIS #### [address] [address] Monocyte, Absolute 0.6 10 3/mcL Normal 0.2-1.0 Counts include 234 beds at the [facility] ([place] Comment on above: Performed By: #### M G, CBC, FES, VIDH, ADIFF, CMP, LIPID, GFR, ANEU, PSA, FERR #### [address] [address] #### HCV1, VARIS, MUMP, RUBEO, RUBIS #### [address] [address] Monocytes/100 WBC (Bld) 8.9 % Normal 1.7-13.0 [facility] ([place] Comment on above: Performed By: #### M G, CBC, FES, VIDH, ADIFF, CMP, LIPID, GFR, ANEU, PSA, FERR #### [address] [address] #### HCV1, VARIS, MUMP, RUBEO, RUBIS #### [address] [address] Neutrophils/100 WBC (Bld) 57.9 % Normal 37.0-80.0 [facility] ([place] Comment on above: Performed By: #### M G, CBC, FES, VIDH, ADIFF, CMP, LIPID, GFR, ANEU, PSA, FERR #### [address] [address] #### HCV1, VARIS, MUMP, RUBEO, RUBIS #### [address] [address] .GFRon 12-07-2023 GFR 88 ml/min/1.73sqm Normal [facility] ([place] Comment on above: Result Comment: GFR Population [...] CMP, LIPID, GFR, ANEU, PSA, FERR #### [address] [address] #### HCV1, VARIS, MUMP, RUBEO, RUBIS #### [address] [address] GFR Non- 73 ml/min/1.73sqm Normal [facility] ([place] Comment on above: Result Comment: GFR Population [...] CMP, LIPID, GFR, ANEU, PSA, FERR #### [place] [address] #### HCV1, VARIS, MUMP, RUBEO, RUBIS #### [address] [address] .NEUABSon 12-07-2023 Neutrophil, Absolute 3.7 10 3/mcL Normal 2.9-6.2 [facility] ([place]) Comment on above: Performed By: #### M G, CBC, FES, VIDH, ADIFF, CMP, LIPID, GFR, ANEU, PSA, FERR #### [place] [id number] #### HCV1, VARIS, MUMP, RUBEO, RUBIS #### [address] [address] CBCon 12-07-2023 Erythrocyte distribution width (RBC) [Ratio] 14.1 % Normal 11.5-14.5 [facility] ([place] Comment on above: Performed By: #### M G, CBC, FES, VIDH, ADIFF, CMP, LIPID, GFR, ANEU, PSA, FERR #### [place] [id number] #### HCV1, VARIS, MUMP, RUBEO, RUBIS #### [address] [address] Hematocrit (Bld) [Volume fraction] 37.0 % Low 42.0-52.0 [facility] ([place] Comment on above: Performed By: #### M G, CBC, FES, VIDH, ADIFF, CMP, LIPID, GFR, ANEU, PSA, FERR #### [place] [address] #### HCV1, VARIS, MUMP, RUBEO, RUBIS #### [address] [address] Hgb 12.9 G/dL Low 14.0-18.0 [facility] ([place] Comment on above: Performed By: #### M G, CBC, FES, VIDH, ADIFF, CMP, LIPID, GFR, ANEU, PSA, FERR #### [place] [id number] #### HCV1, VARIS, MUMP, RUBEO, RUBIS #### [address] [address] MCH (RBC) [Entitic mass] 31.2 pg Normal 27.0-31.2 [facility] ([place] Comment on above: Performed By: #### M G, CBC, FES, VIDH, ADIFF, CMP, LIPID, GFR, ANEU, PSA, FERR #### [place] [address] #### HCV1, VARIS, MUMP, RUBEO, RUBIS #### [address] [address] MCHC 34.8 G/dL Normal 31.8-35.4 [facility] ([place] Comment on above: Performed By: #### M G, CBC, FES, VIDH, ADIFF, CMP, LIPID, GFR, ANEU, PSA, FERR #### [address] [address] #### HCV1, VARIS, MUMP, RUBEO, RUBIS #### [place] [address] MCV (RBC) [Entitic vol] 89.5 fL Normal 80.0-94.0 [facility] ([place] Comment on above: Performed By: #### M G, CBC, FES, VIDH, ADIFF, CMP, LIPID, GFR, ANEU, PSA, FERR #### [place] [address] #### HCV1, VARIS, MUMP, RUBEO, RUBIS #### [place] [address] Platelet 427 10 3/mcL High 130-400 [facility] ([place] Comment on above: Performed By: #### M G, CBC, FES, VIDH, ADIFF, CMP, LIPID, GFR, ANEU, PSA, FERR #### [address] [address] #### HCV1, VARIS, MUMP, RUBEO, RUBIS #### [place] [address] Platelet mean volume (Bld) [Entitic vol] 6.8 fL Low 7.4-10.4 [facility] ([place] Comment on above: Performed By: #### M G, CBC, FES, VIDH, ADIFF, CMP, LIPID, GFR, ANEU, PSA, FERR #### [place] [address] #### HCV1, VARIS, MUMP, RUBEO, RUBIS #### [place] [address] RBC 4.14 10 6/mcL Normal 4.04-6.13 [facility] ([place] Comment on above: Performed By: #### M G, CBC, FES, VIDH, ADIFF, CMP, LIPID, GFR, ANEU, PSA, FERR #### [place] [id number] #### HCV1, VARIS, MUMP, RUBEO, RUBIS #### [address] [address] WBC 6.3 10 3/mcL Normal 4.6-10.8 [facility] ([place] Comment on above: Performed By: #### M G, CBC, FES, VIDH, ADIFF, CMP, LIPID, GFR, ANEU, PSA, FERR #### [place] [address] #### HCV1, VARIS, MUMP, RUBEO, RUBIS #### [place] [address] CMPon 12-07-2023 Albumin Level 3.8 G/dL Normal 3.4-4.8 [facility] ([place] Comment on above: Performed By: #### M G, CBC, FES, VIDH, ADIFF, CMP, LIPID, GFR, ANEU, PSA, FERR #### [place] [address] #### HCV1, VARIS, MUMP, RUBEO, RUBIS #### [place] [address] Albumin/Globulin [Mass ratio] 1.1 {ratio} Normal 1.1-2.5 [facility] ([place] Comment on above: Performed By: #### M G, CBC, FES, VIDH, ADIFF, CMP, LIPID, GFR, ANEU, PSA, FERR #### [place] [address] #### HCV1, VARIS, MUMP, RUBEO, RUBIS #### [address] [address] ALP [Catalytic activity/Vol] 91 U/L Normal 40-135 [facility] ([place] Comment on above: Performed By: #### M G, CBC, FES, VIDH, ADIFF, CMP, LIPID, GFR, ANEU, PSA, FERR #### [address] [address] #### HCV1, VARIS, MUMP, RUBEO, RUBIS #### [address] [address] ALT [Catalytic activity/Vol] 22 U/L Normal 16-63 [facility] ([place] Comment on above: Performed By: #### M G, CBC, FES, VIDH, ADIFF, CMP, LIPID, GFR, ANEU, PSA, FERR #### [place] [address] #### HCV1, VARIS, MUMP, RUBEO, RUBIS #### [address] [address] AST [Catalytic activity/Vol] 12 U/L Normal 10-40 [facility] ([place] Comment on above: Performed By: #### M G, CBC, FES, VIDH, ADIFF, CMP, LIPID, GFR, ANEU, PSA, FERR #### [place] [address] #### HCV1, VARIS, MUMP, RUBEO, RUBIS #### [address] [address] Bili Total 0.6 mg/dL Normal 0.2-1.0 [facility] ([place] Comment on above: Result Comment: Use of this assay is not recommended for patients undergoing treatment with eltrombopag due to the potential for falsely elevated results. Performed By: #### M G, CBC, FES, VIDH, ADIFF, CMP, LIPID, GFR, ANEU, PSA, FERR #### [place] [address] #### HCV1, VARIS, MUMP, RUBEO, RUBIS #### [address] [address] BUN/Creatinine Ratio 16 ratio Normal 7-27 Counts include 234 beds at the [facility] ([place] Comment on above: Performed By: #### M G, CBC, FES, VIDH, ADIFF, CMP, LIPID, GFR, ANEU, PSA, FERR #### [address] [address] #### HCV1, VARIS, MUMP, RUBEO, RUBIS #### [address] [address] Calcium [Mass/Vol] 9.0 mg/dL Normal 8.4-10.2 [facility] ([place]) Comment on above: Performed By: #### M G, CBC, FES, VIDH, ADIFF, CMP, LIPID, GFR, ANEU, PSA, FERR #### [address] [address] #### HCV1, VARIS, MUMP, RUBEO, RUBIS #### [address] [address] Chloride [Moles/Vol] 104 mmol/L Normal 98-107 Counts include 234 beds at the [facility] ([place] Comment on above: Performed By: #### M G, CBC, FES, VIDH, ADIFF, CMP, LIPID, GFR, ANEU, PSA, FERR #### [address] [address] #### HCV1, VARIS, MUMP, RUBEO, RUBIS #### [address] [address] CO2 [Moles/Vol] 30 mmol/L Normal 23-31 [facility] ([place] Comment on above: Performed By: #### M G, CBC, FES, VIDH, ADIFF, CMP, LIPID, GFR, ANEU, PSA, FERR #### [address] [address] #### HCV1, VARIS, MUMP, RUBEO, RUBIS #### [address] [address] Creatinine [Mass/Vol] 1.02 mg/dL Normal 0.70-1.30 [facility] ([place]) Comment on above: Performed By: #### M G, CBC, FES, VIDH, ADIFF, CMP, LIPID, GFR, ANEU, PSA, FERR #### [address] [address] #### HCV1, VARIS, MUMP, RUBEO, RUBIS #### [address] [address] Electrolyte Balance 6.0 mEq/L Normal 4.0-15.0 [facility] ([place]) Comment on above: Performed By: #### M G, CBC, FES, VIDH, ADIFF, CMP, LIPID, GFR, ANEU, PSA, FERR #### [address] [address] #### HCV1, VARIS, MUMP, RUBEO, RUBIS #### [address] [address] Globulin 3.5 G/dL Normal [facility] ([place]) Comment on above: Performed By: #### M G, CBC, FES, VIDH, ADIFF, CMP, LIPID, GFR, ANEU, PSA, FERR #### [place] [address] #### HCV1, VARIS, MUMP, RUBEO, RUBIS #### [address] [address] Glucose [Mass/Vol] 82 mg/dL Normal 80-115 [facility] ([place]) Comment on above: Performed By: #### M G, CBC, FES, VIDH, ADIFF, CMP, LIPID, GFR, ANEU, PSA, FERR #### [address] [address] #### HCV1, VARIS, MUMP, RUBEO, RUBIS #### [address] [address] Potassium [Moles/Vol] 4.8 mmol/L Normal 3.5-5.1 [facility] ([place]) Comment on above: Performed By: #### M G, CBC, FES, VIDH, ADIFF, CMP, LIPID, GFR, ANEU, PSA, FERR #### [place] [address] #### HCV1, VARIS, MUMP, RUBEO, RUBIS #### [address] [address] Sodium [Moles/Vol] 140 mmol/L Normal 136-145 [facility] ([place]) Comment on above: Performed By: #### M G, CBC, FES, VIDH, ADIFF, CMP, LIPID, GFR, ANEU, PSA, FERR #### [address] [address] #### HCV1, VARIS, MUMP, RUBEO, RUBIS #### [address] [address] Total Protein 7.3 G/dL Normal 6.4-8.2 [facility] ([place] Comment on above: Performed By: #### M G, CBC, FES, VIDH, ADIFF, CMP, LIPID, GFR, ANEU, PSA, FERR #### [place] [address] #### HCV1, VARIS, MUMP, RUBEO, RUBIS #### [address] [address] Urea nitrogen [Mass/Vol] 16 mg/dL Normal 7-18 [facility] ([place]) Comment on above: Performed By: #### M G, CBC, FES, VIDH, ADIFF, CMP, LIPID, GFR, ANEU, PSA, FERR #### [place] [id number] #### HCV1, VARIS, MUMP, RUBEO, RUBIS #### [address] [address] Sina 12-07-2023 Ferritin [Mass/Vol] 83.0 ng/mL Normal 26.0-388.0 [facility] ([place]) Comment on above: Performed By: #### M G, CBC, FES, VIDH, ADIFF, CMP, LIPID, GFR, ANEU, PSA, FERR #### [address] [address] #### HCV1, VARIS, MUMP, RUBEO, RUBIS #### [place] [address] FESon 12-07-2023 Iron [Mass/Vol] 92 ug/dL Normal 65-175 [facility] ([place] Comment on above: Performed By: #### M G, CBC, FES, VIDH, ADIFF, CMP, LIPID, GFR, ANEU, PSA, FERR #### [address] [address] #### HCV1, VARIS, MUMP, RUBEO, RUBIS #### [place] [address] Iron Sat 26 % Normal [facility] ([place]) Comment on above: Performed By: #### M G, CBC, FES, VIDH, ADIFF, CMP, LIPID, GFR, ANEU, PSA, FERR #### [address] [address] #### HCV1, VARIS, MUMP, RUBEO, RUBIS #### [place] [address] TIBC 359 mcg/dL Normal 250-450 [facility] ([place] Comment on above: Performed By: #### M G, CBC, FES, VIDH, ADIFF, CMP, LIPID, GFR, ANEU, PSA, FERR #### [address] [address] #### HCV1, VARIS, MUMP, RUBEO, RUBIS #### [place] [address] LABORATORYOrdered By: SYSTEM SYSTEM on 12-07-2023 25-hydroxyvitamin [...] 12-07-2023 Cholesterol [Mass/Vol] 122 mg/dL Normal 0-200 [facility] ([place]) Comment on above: Result Comment: Chol esterol Reference Interval: Less than 200 Desirable 200-239 Borderline high risk 240 and above High risk Performed By: #### M G, CBC, FES, VIDH, ADIFF, CMP, LIPID, GFR, ANEU, PSA, FERR #### [address] [address] #### HCV1, VARIS, MUMP, RUBEO, RUBIS #### [address] [address] Cholesterol in HDL [Mass/Vol] 37 mg/dL Low 40-60 [facility] ([place]) Comment on above: Performed By: #### M G, CBC, FES, VIDH, ADIFF, CMP, LIPID, GFR, ANEU, PSA, FERR #### [address] [address] #### HCV1, VARIS, MUMP, RUBEO, RUBIS #### [address] [address] Cholesterol in LDL [Mass/Vol] 67 mg/dL Normal 0-130 [facility] ([place] Comment on above: Performed By: #### M G, CBC, FES, VIDH, ADIFF, CMP, LIPID, GFR, ANEU, PSA, FERR #### [address] [address] #### HCV1, VARIS, MUMP, RUBEO, RUBIS #### [address] [address] Triglyceride [Mass/Vol] 92 mg/dL Normal 0-150 [facility] ([place]) Comment on above: Result Comment: Trig lyceride Reference Interval: Less than 150 Normal 150-199 Borderline high risk 200-499 High risk 500 or higher Very high risk Performed By: #### M G, CBC, FES, VIDH, ADIFF, CMP, LIPID, GFR, ANEU, PSA, FERR #### [place] [address] #### HCV1, VARIS, MUMP, RUBEO, RUBIS #### [place] [address] MGon 12-07-2023 Magnesium [Mass/Vol] 2.2 mg/dL Normal 1.8-2.4 Counts include 234 beds at the [facility] ([place]) Comment on above: Performed By: #### M G, CBC, FES, VIDH, ADIFF, CMP, LIPID, GFR, ANEU, PSA, FERR #### [place] [address] #### HCV1, VARIS, MUMP, RUBEO, RUBIS #### [address] [address] PSAon 12-07-2023 Prostate Specific Antigen 1.79 ng/mL Normal 0.00-4.00 [facility] ([place]) Comment on above: Performed By: #### M G, CBC, FES, VIDH, ADIFF, CMP, LIPID, GFR, ANEU, PSA, FERR #### [place] [address] #### HCV1, VARIS, MUMP, RUBEO, RUBIS #### [address] [address] [facility] 12-07-2023 Vit. D 25-Hydroxy 34.6 ng/mL Normal [facility] ([place]) Comment on above: Result Comment: Inte rpretive Values Based on Total 25(OH) Vitamin D: Deficient <20 ng/mL Insufficient 20 - <30 ng/mL Sufficient 30-100 ng/mL Performed By: #### M G, CBC, FES, VIDH, ADIFF, CMP, LIPID, GFR, ANEU, PSA, FERR #### [facility] [address] [place], [place] [address] #### HCV1, VARIS, MUMP, RUBEO, RUBIS #### [address] [address] CNPEunice 11-19-2023 CNPN Telephone (CHANTEL) ----- WINSTON MAIR ([id number]) 1955 M Date Time Provider Department 11/19/23 [...] these medications. Dr Mayen's direct number is [phone]- if you could possibly call and speak with him directly per his request. Monica Gross RN November 19, 2023 1:47 PM Hamilton Agarwal MD 11/19/2023 5:10 PM Signed I did call Dr. Mayen and explained to him that due to the fact that I have inherited several 100s of patients on chronic narcotics from my partner who left to go to [place], I cannot take on any additional new [...] 02/11/2023 Closed compression fracture of L2 vertebra ([facility]*02/12/2023 Closed compression fracture of L4 vertebra ([facility]*02/12/2023 Encounter Status:Closed by MONICA GROSS on 11/20/23 [facility] Brian 08-22-2023 CN Office Visit (CHANTEL ) ----- WINSTON MARI ([id number]) 1955 M Date Time Provider Department 08/22/23 8:45 AM [...] times a day from Dr. Mayen in [place]. As above, note from Dr. Almonte indicates [...] past in at a pain center in [place]. Patient indicates he decided against kyphoplasty. He is not following up with neurosurgery. Patient absolutely does not want any spinal injections again. He has agreed to try a TENS unit. There is a new TENS unit technology from a company called [employer]. This was prescribed for him. Gave him [...] 30 days. (more content not included)... Normal CT THORAX W/O CONTRASTon CT THORAX W/O [...] 08/14/2023 8:37:49 AM Ordering Provider: EUGENIO Vickers [facility] ([place]) Olga 05-23-[address] [facility] Telephone (NEAGCLM) ----- WINSTON MARI ([id number]) 1955 Date Time Provider Department 05/23/23 [facility] NEAGCLM During your visit today, we recorded the following information about you: Donna Phillip, RN 05/23/2023 11:01 AM Signed Called patient [...] Fully Assessed Reason for Visit: Patient Question [1477] Prescriptions as of 05/23/2023 - cholecalciferol (VITAMIN [...] (HCC*02/12/2023 Closed compression fracture of L4 vertebra ([facility]*02/12/2023 Encounter Status:Closed by DONNA PHILLIP on 05/23/23 [facility] 05-15-2023 CNPN Telephone (NEAGCLM) ----- WINSTON MARI ([id number]) 1955 M Date Time Provider Department 05/15/23 PRO ALMONTE During your visit today, we [...] RN - Fully Assessed Reason for Visit: Block Feeder - Other [3602] Cmt: Up coming surgery Prescriptions as of 05/15/2023 - cholecalciferol (VITAMIN D3) 1,000 unit tab tablet Take 1 tablet by mouth once daily. - Walker misc 1 Units once daily. Aneesh knowles - docusate sodium (COLACE) 100 mg capsule [...] 02/11/2023 Closed compression fracture of L2 vertebra ([facility]*02/12/2023 Closed compression fracture of L4 vertebra ([facility]*02/12/2023 Encounter Status:Closed by RANI MART on 05/15/23 [facility] Visit (NSAGAP ) ----- WINSTON MARI ([id number]) 1955 M Date Time Provider Department 05/10/23 [...] Age: [age] year old Sex: male MRN/E# [id number] Last Office Visit: 03/29/2023 Chief Complaint: Patient presents with: lumbar fracture follow up HISTORY OF PRESENT ILLNESS : Winston Mari is a 68 year old male with a past medical history of arthritis, epilepsy, high cholesterol, and sciatica. He is a former smoker. The patient presented to [facility] ED on 02/11/2023 as a transfer from [facility] after falling off a roof. Imaging revealed [...] BRAIN SURGERY HX OTHER ANEURYSM REPAIR 1983 [facility]- Dr. Simpson- Brain Aneurysm FAMILY HISTORY Problem [...] (more content not included)... Normal [facility] CNCOon 04-30-2023 CNCO Letter Text Normal [facility] CNPEunice 04-30-2023 CNPN Telephone (PNMDNA) ----- WINSTON MARI ([id number]) 1955 M Date Time Provider Department 04/30/23 KADEEM LEVI PNMDNA During your visit today, we recorded the following information about you: Irene Quintero MA 04/30/2023 1:33 PM Signed At appointment time, [...] - Walker misc 1 Units once daily. Aneesh knowles - docusate sodium (COLACE) 100 mg capsule [...] 02/11/2023 Closed compression fracture of L2 vertebra ([facility]*02/12/2023 Closed compression fracture of L4 vertebra ([facility]*02/12/2023 Encounter Status:Closed by IRENE QUINTERO MA on 04/30/23 Normal [facility] MRI LUMBAR SPINE WO IVCONon 04-30-2023 MRI LUMBAR SPINE WO IVCON * * *Final Report* * * DATE OF EXAM: Apr 30 2023 1:27PM [facility] 0303 - MRI LUMBAR SPINE WO IVCON / PROCEDURE REASON: Other fracture of unspecified lumbar vertebra, initial encounter for closed frac * * * * Physician Interpretation * * * * EXAMINATION: MRI LUMBAR SPINE WO IVCON CLINICAL HISTORY: Other fracture of unspecified lumbar vertebra, initial encounter for closed fracture ([facility]) TECHNIQUE: Routine lumbosacral spine MR protocol without gadolinium. MQ: [id number] COMPARISON: 02/12/2023 RESULT: Counting reference: Lumbosacral junction. For the purposes of this report, L4-5 is considered the level of the iliac crest and assume there are 5 lumbar-type vertebrae. Anatomic variant: None. Localizer images: Renal cysts visible on adolescent counselor images. Alignment: Alignment is anatomic. Bone marrow [...] and assume there are 5 lumbar-type vertebrae. Building Construction Foreman: PSCB Transcribe Date/Time: Apr 30 2023 1:55P Dictated by : TIMUR FIGUEROA MD This examination was interpreted and the report reviewed and electronically signed by: TIMUR FIGUEROA MD on Apr 30 2023 1:59PM EST [id number] Normal [facility]) ----- WINSTON MARI ([id number]) 1955 M Date Time Provider Department 04/26/23 [facility] PROVIDER MAKAYLADEISRAEL During your visit today, we recorded the following information about you: nEa Beard Ma 04/26/2023 1:02 PM Signed Attempted to contact patient via telephone regarding upcoming NEW patient appointment with Dr. Levi on 04/30/23. [facility] relaying the message below: This is the [facility] calling regarding your upcoming appointment with Dr. Levi. To avoid a delay in your care, please bring any imaging (such as MRI, CT, XR, etc.) that have been done outside of the [facility] Systems on a disk to be viewed [...] or reschedule your appointment, please contact the [place] [facility] at [phone]. Allergies As of Date: 04/26/2023 Noted Allergy [...] 02/11/2023 Closed compression fracture of L2 vertebra ([facility]*02/12/2023 Closed compression fracture of L4 vertebra ([facility]*02/12/2023 Encounter Status:Closed by ENA BEARD MA on 04/26/23 [facility] CNOVmike 03-29-2023 CNOV Office Visit (NSAGAP ) ----- WINSTON MARI ([id number]) 1955 M Date Time Provider Department 03/29/23 [...] Age: [age] year old Sex: male MRN/E# [id number] Last Office Visit: Visit date not found Chief Complaint: Patient presents with: Low Back Pain Fracture - Lumbar Vertebra HISTORY OF PRESENT ILLNESS : Winston Mari is a 68 year old male with a past medical history of arthritis, epilepsy, high cholesterol, and sciatica. He is a former smoker. The patient presented to [facility] ED on 02/11/2023 as a transfer from [facility] after falling off a roof. Imaging revealed [...] BRAIN SURGERY HX OTHER ANEURYSM REPAIR 1983 [facility]- Dr. Simpson- Brain Aneurysm FAMILY HISTORY Problem [...] (more content not included)... Normal [facility] Olga 03-27-2023 EVIE Telephone (NEAGCLM) ----- WINSTON MARI ([id number]) 1955 M Date Time Provider Department 03/27/23 [facility] NEAGCLM During your visit today, we recorded the following information about you: Donna Phillip RN 03/27/2023 9:20 AM Signed Attempted to call patient at [phone]. Incorrect number listed in patient chart. Donna [...] - Walker misc 1 Units once daily. Aneesh knowles - docusate sodium (COLACE) 100 mg capsule [...] (HCC*02/12/2023 Closed compression fracture of L4 vertebra ([facility]*02/12/2023 Encounter Status:Closed by DONNA PHILLIP on 03/27/23 [facility] Olga [facility]20[facility] ----- WINSTON MARI ([id number]) 1955 M Date Time Provider Department 03/26/23 [facility] NEAGCLM During your visit today, we recorded the following information about you: Donna Phillip RN 03/26/2023 2:52 PM Signed Attempted to reach patient and his brother to notify them that Winston needs x-rays completed before his appointment. Brothers' phone number is disconnected. Number listed for Winston leads to [place]. Will attempt to contact tomorrow again to [...] 02/11/2023 Closed compression fracture of L2 vertebra ([facility]*02/12/2023 Closed compression fracture of L4 vertebra ([facility]*02/12/2023 Encounter Status:Closed by DONNA PHILLIP on 03/26/23 [facility] ALLIED HEALTHon 02-20-2023 ALLIED HEALTH HNO ID: [id number] Author: RT Frankie(R) Service: Radiology Author Type: Technologist Type: Allied [...] RT Frankie(R) February 20, 2023 5:26 PM [facility] ED NOTEon 02-20-2023 ED NOTE HNO ID: [id number] Author: Pebbles Corcoran RN Service: Emergency Medicine Author Type: Registered Nurse Type: ED Notes Filed: 02/20/2023 6:48 PM Note Text: No answer for room assignment Normal [facility] ED NOTE HNO ID: [id number] Author: Rosana Hollis RN Service: ? Author Type: Registered Nurse Type: ED Notes Filed: 02/20/2023 6:38 PM Note Text: Bed: 20-ED Expected date: Expected time: Means of arrival: Comments: TRIAGE WHEN CLEAN [facility] ED Triage Noteon 02-20-2023 ED Triage Note HNO ID: [id number] Author: Kendra Dean APRN.CNP Service: ? Author [...] WORKUP: Imaging: XR: lumbar SIGNATURE: Kendra Dean APRN.SUPERVISOR PROPERTIES Normal [facility] XR LUMBAR 3V AP/LAT/L5-S1on 02-20-2023 XR LUMBAR 3V AP/LAT/L5-S1 * * *Final Report* * * DATE OF EXAM: Feb 20 2023 5:26PM AKX [id number] - XR LUMBAR 3V AP/LAT/L5-S1 / PROCEDURE REASON: Low back pain, trauma * * * * Physician Interpretation * * * * EXAM TITLE: X-RAY LUMBAR SPINE DATE: The 2022 CLINICAL INDICATION/HISTORY: Lower back pain COMPARISON: [...] appearance to x-ray of February 12, 2023. Building Construction Foreman: PSCB Transcribe Date/Time: Feb 20 2023 6:00P Dictated by : PATRICIA LAI MD This examination was interpreted and the report reviewed and electronically signed by: PATRICIA LAI MD on Feb 20 2023 6:05PM EST [id number] Normal [facility] Basic metabolic 2000 panelon 02-13-2023 Anion gap [Moles/Vol] 9 mmol/L Normal 9-18 [facility] Comment on above: Order Comment: Speci men Type: BLOOD SPECIMEN Ordering Facility: [facility] Address: [address] [place], [place] [address] Performed By: #### 1 989-3 #### [facility] CLIA [id number] [address] [place] Calcium [Mass/Vol] 8.8 mg/dL Normal 8.5-10.2 [facility] Comment on above: Order Comment: Speci men Type: BLOOD SPECIMEN Ordering Facility: [facility] Address: [address] [place] [address] Performed By: #### 1 989-3 #### [facility] CLIA [id number] [address] [place] Chloride [Moles/Vol] 103 mmol/L Normal 97-105 [facility] Comment on above: Order Comment: Speci men Type: BLOOD SPECIMEN Ordering Facility: [facility] Address: [address] [place] [address] Performed By: #### 1 989-3 #### [facility] CLIA [id number] [address] [place] OF [facility] CO2 [Moles/Vol] 26 mmol/L Normal 22-30 [facility] Comment on above: Order Comment: Speci men Type: BLOOD SPECIMEN Ordering Facility: [facility] Address: [address] [place] [address] Performed By: #### 1 989-3 #### [facility] CLIA [id number] [address] [place] Creatinine [Mass/Vol] 1.06 mg/dL Normal 0.73-1.22 [facility] Comment on above: Order Comment: Speci men Type: BLOOD SPECIMEN Ordering Facility: [facility] Address: [address] [place] [address] Performed By: #### 1 989-3 #### [facility] CLIA [id number] [address] ESTIMATED GLOMERULAR FILTRATION RATE 77 mL/min/1.73m??? Normal >=60 [facility] Comment on above: Order Comment: Speci men Type: BLOOD SPECIMEN Ordering Facility: [facility] Address: [address] [address] Result Comment: Josee mated Glomerular Filtration Rate [...] GFR. Performed By: #### 1 989-3 #### [facility] CLIA [id number] [address] [place] [address] [place] Glucose [Mass/Vol] 119 mg/dL High 74-99 [facility] Comment on above: Order Comment: Yo brothers Type: BLOOD SPECIMEN Ordering Facility: [facility] Address: [address] [place] [address] Result Comment: The [place] [employer] (ADA) provides guidance for cutoff [...] Standards of Medical Care in Diabetes 2016, [place] [employer]. Diabetes Care. 2016.39(Suppl 1). Performed By: #### 1 989-3 #### [facility] CLIA [id number] [address] [place] [address] [place] Potassium [Moles/Vol] 4.0 mmol/L Normal 3.7-5.1 [facility] Comment on above: Order Comment: Yo brothers Type: BLOOD SPECIMEN Ordering Facility: [facility] Address: [address] [address] Performed By: #### 1 989-3 #### [place] [facility] CLIA [id number] [address] [place] [address] [place] Sodium [Moles/Vol] 138 mmol/L Normal 136-144 [facility] Comment on above: Order Comment: Speci men Type: BLOOD SPECIMEN Ordering Facility: [facility] Address: [address] [address] Performed By: #### 1 989-3 #### [facility] CLIA [id number] [address] [place] Urea nitrogen [Mass/Vol] 13 mg/dL Normal 9-24 [facility] Comment on above: Order Comment: Speci men Type: BLOOD SPECIMEN Ordering Facility: [facility] Address: [address] [address] Performed By: #### 1 989-3 #### [facility] CLIA [id number] [address] OF [facility] CBC panel Auto (Bld)on 02-13 Erythrocyte distribution width (RBC) [Ratio] 13.9 % Normal 11.5-15.0 [facility] Comment on above: Order Comment: Speci men Type: BLOOD SPECIMEN Ordering Facility: [facility] Address: [address] [address] Performed By: #### 5 8410-2 #### [facility] CLIA [id number] [address] [place] Hematocrit (Bld) [Volume fraction] 34.4 % Low 39.0-51.0 [facility] Comment on above: Order Comment: Speci men Type: BLOOD SPECIMEN Ordering Facility: [facility] Address: [address] [address] Performed By: #### 5 8410-2 #### [facility] CLIA [id number] [address] [place] Hemoglobin (Bld) [Mass/Vol] 11.4 g/dL Low 13.0-17.0 [facility] Comment on above: Order Comment: Speci men Type: BLOOD SPECIMEN Ordering Facility: [facility] Address: [address] [address] Performed By: #### 5 8410-2 #### [facility] CLIA [id number] [address] MCH (RBC) [Entitic mass] 29.8 pg Normal 26.0-34.0 [facility] Comment on above: Order Comment: Speci men Type: BLOOD SPECIMEN Ordering Facility: [facility] Address: [address] [place] [address] Performed By: #### 5 8410-2 #### [facility] CLIA [id number] [address] MCHC (RBC) [Mass/Vol] 33.1 g/dL Normal 30.5-36.0 [facility] Comment on above: Order Comment: Speci men Type: BLOOD SPECIMEN Ordering Facility: [facility] Address: [address] [place] [address] Performed By: #### 5 8410-2 #### [facility] CLIA [id number] [address] MCV (RBC) [Entitic vol] 90.1 fL Normal 80.0-100.0 [facility] Comment on above: Order Comment: Speci men Type: BLOOD SPECIMEN Ordering Facility: [facility] Address: [address] [place] [address] Performed By: #### 5 8410-2 #### [facility] CLIA [id number] [address] Nucleated RBC (Bld) [#/Vol] 10*3/uL Normal <0.01 [facility] Comment on above: Order Comment: Speci men Type: BLOOD SPECIMEN Ordering Facility: [facility] Address: [address] [place] [address] Performed By: #### 5 8410-2 #### [facility] CLIA [id number] [address] Platelet mean volume (Bld) [Entitic vol] 9.3 fL Normal 9.0-12.7 [facility] Comment on above: Order Comment: Speci men Type: BLOOD SPECIMEN Ordering Facility: [facility] Address: [address] [place] [address] Performed By: #### 5 8410-2 #### [facility] CLIA [id number] [address] Platelets (Bld) [#/Vol] 274 10*3/uL Normal 150-400 [facility] Comment on above: Order Comment: Speci men Type: BLOOD SPECIMEN Ordering Facility: [facility] Address: [address] [place] [address] Performed By: #### 5 8410-2 #### [facility] CLIA [id number] [address] RBC (Bld) [#/Vol] 3.82 10*6/uL Low 4.20-6.00 [facility] Comment on above: Order Comment: Speci men Type: BLOOD SPECIMEN Ordering Facility: [facility] Address: [address] [place] [address] Performed By: #### 5 8410-2 #### [facility] CLIA [id number] [address] WBC (Bld) [#/Vol] 6.34 10*3/uL Normal 3.70-11.00 [facility] Comment on above: Order Comment: Speci men Type: BLOOD SPECIMEN Ordering Facility: [facility] Address: [address] [place] [address] Performed By: #### 5 8410-2 #### [facility] CLIA [id number] [address] CNDSon 02-13-2023 CNDS HNO ID: [id number] Author: Prabhakar Ramirez PA-C Service: General Surgery Author Type: Physician Veneer Layer Type: Discharge Summary Filed: 02/13/2023 1:02 PM [...] THE HOSPITAL: Mr. Winston Mari presented to [facility] as a transfer from [facility] on 02/11/2023 for treatment of injuries [...] you become constipated, you may use any twzb-mpf-ahvsxnb treatment such as Milk of Magnesia, Sennakot, [...] call for appointment?: Yes Pro Almonte MD [phone] [address] [facility] [address] PCP Requested Referral Follow-Up Appointment When: In 2 weeks Patient/Parents to call for appointment?: Yes Eugenio Mayen IV, 400 COL (more content not included)... Normal [facility] CONSULT PROGon 02-13-2023 CONSULT PROG HNO ID: [id number] Author: Vince Márquez APRN.SUPERVISOR PROPERTIES Service: Neurosurgery Author Type: Nurse Practitioner Type: [...] kg/m? O2 Therapy: Room Air IANDO: Date 02/12/23699 - 02/13/23 0659 02/13/23 07 - 02/14/23 0659 Shift 5383-6874 5291-8249 1810-0056 24 Hour Total 1084-2605 1939-3462 8135-7245 24 Hour Total INTAKE PO 360 120 480 PO 360 120 480 Shift Total 360 120 480 OUTPUT Urine 650 5182 883 5181 Void (ml) 650 8123 119 6189 Shift Total 650 8882 460 8572 Weight (kg) 68 68 68 68 68 [...] L2 and L4 similar to prior MRI. Building Construction Foreman: CHRISTIN Transcribe Date/Time: Feb 13 2023 8:46A [...] compression fracture of L4 vertebra (HCC) 02/12/2023 Winston Mari is a 68 year [...] the outpatient in [address] Almotne with additional flex ex of lumbar. -- [...] 13, 2023 TIME: 11:16 AM Vince Márquez APRN.SUPERVISOR PROPERTIES Pager: [phone] Neurosurgery Pager: [phone] Normal [facility] THERAPY NTon 02-13-2023 THERAPY NT HNO ID: [id number] Author: Ileana Brooke PT Service: Physical Therapy Author Type: Physical Therapist Type: Therapy (PT/OT/Speech/Resp) Filed: 02/13/2023 11:19 AM Note Text: Physical Therapy Evaluation SERVICE DATE: 02/13/2023 SERVICE TIME: 901 ROOM: [place] [address] Recommended Discharge Disposition: Home Recommended Discharge Disposition [...] Pt admitted 02/11 as a transfer from [facility] after a fall from his roof at [...] (more content not included)... Normal [facility] 25(OH)D3 [facility] 2022 25-hydroxyvitamin D3 [Mass/Vol] 19.8 ng/mL Low >=30.0 [facility] Comment on above: Order Comment: Speci men Type: BLOOD SPECIMEN Ordering Facility: [facility] Address: [address] [place] [phone] Result Comment: Clas sification of 25 OH Vitamin D status: Deficiency: <= 20.0 ng/ml. Insufficiency: 21.0-29.0 ng/ml. Sufficiency: >= 30.0 ng/ml. Performed By: #### 1 989-3 #### [facility] CLIA [id number] [address] [facility] Basic metabolic 2000 panelon 02-12-2023 Anion gap [Moles/Vol] 11 mmol/L Normal 9-18 [facility] Comment on above: Order Comment: Speci men Type: BLOOD SPECIMEN Ordering Facility: [facility] Address: [address] [place] [address] Performed By: #### 1 989-3 #### [facility] CLIA [id number] [address] [place] [address] [place] Calcium [Mass/Vol] 8.8 mg/dL Normal 8.5-10.2 [facility] Comment on above: Order Comment: Speci men Type: BLOOD SPECIMEN Ordering Facility: [facility] Address: [address] [place] [address] Performed By: #### 1 989-3 #### [facility] CLIA [id number] [address] Chloride [Moles/Vol] 104 mmol/L Normal 97-105 [facility] Comment on above: Order Comment: Speci men Type: BLOOD SPECIMEN Ordering Facility: [facility] Address: [address] [place] [address] Performed By: #### 1 989-3 #### [facility] CLIA [id number] [address] [place] [address] [place] CO2 [Moles/Vol] 23 mmol/L Normal 22-30 [facility] Comment on above: Order Comment: Speci men Type: BLOOD SPECIMEN Ordering Facility: [facility] Address: [address] [place] [address] Performed By: #### 1 989-3 #### [facility] CLIA [id number] [address] [place] Creatinine [Mass/Vol] 0.87 mg/dL Normal 0.73-1.22 [facility] Comment on above: Order Comment: Yo brothers Type: BLOOD SPECIMEN Ordering Facility: [facility] Address: [address] [place] [address] Performed By: #### 1 989-3 #### [facility] CLIA [id number] [address] [place] [address] [place] ESTIMATED GLOMERULAR FILTRATION RATE 95 mL/min/1.73m??? Normal >=60 [facility] Comment on above: Order Comment: Dimitriflorence brothers Type: BLOOD SPECIMEN Ordering Facility: [facility] Address: [address] [place] [address] Result Comment: Josee mated Glomerular Filtration Rate [...] GFR. Performed By: #### 1 989-3 #### [facility] CLIA [id number] [address] [place] [address] [place] Glucose [Mass/Vol] 83 mg/dL Normal 74-99 [facility] Comment on above: Order Comment: Yo brothers Type: BLOOD SPECIMEN Ordering Facility: [facility] Address: [address] [place] [address] Result Comment: The [place] Diabetes Association (ADA) provides guidance for cutoff [...] Standards of Medical Care in Diabetes 2016, [place] [employer]. Diabetes Care. 2016.39(Suppl 1). Performed By: #### 1 989-3 #### [facility] CLIA [id number] [address] [place] [address] [place] Potassium [Moles/Vol] 3.9 mmol/L Normal 3.7-5.1 [facility] Comment on above: Order Comment: Speci men Type: BLOOD SPECIMEN Ordering Facility: [facility] Address: [address] [place] [address] Performed By: #### 1 989-3 #### [facility] CLIA [id number] [address] [place] [address] [place] Sodium [Moles/Vol] 138 mmol/L Normal 136-144 [facility] Comment on above: Order Comment: Speci men Type: BLOOD SPECIMEN Ordering Facility: [facility] Address: [address] [place] [address] Performed By: #### 1 989-3 #### [facility] CLIA [id number] [address] [place] Urea nitrogen [Mass/Vol] 9 mg/dL Normal 9-24 [facility] Comment on above: Order Comment: Speci men Type: BLOOD SPECIMEN Ordering Facility: [facility] Address: [address] [place] [address] Performed By: #### 1 989-3 #### [facility] CLIA [id number] [address] [place] CASE MGT INIT ASSESon 2022 CASE MGT INIT ASSES HNO ID: [id number] Author: YOSHI Epps Service: ? Author Type: Assembler Piano Type: Care Mgt Initial Assessment Filed: 02/12/2023 [...] Current Advance Directive: Health Care Power of Water Taxi Operator In Chart: Yes Up To Date and [...] Patient Goal(s): Be able to go home [place] Explained: [place] of [place] Given: No Reason Not Given: [...] or get rid of a hangover (eye office correspondent)? Not Applicable 6. CAGE Screening? No 7. [...] identified Treatment Referral: none Other Referrals: none RACHEL reviewed chart and met with the Pt. Pt is at baseline, Independent with mobility and self care. He drives and manages his own affairs. SW completed the HC POA with him at this time. Copy sent to Admitting. Original and 2 copies provided to the Pt. Pt plans to return home at ar. Pt is awaiting TLSO and PT/OT evals. Pt fell off the roof, while cleaning the gutters. Pt admits to using gummies for his lung disease and denies any other substance use. Pt's brother will transport him home at ar. +PCP, +RX, +DME SIGNATURE: YOSHI Epps PATIENT NAME: Winston Mari DATE: February 12, 2023 TIME: 11:08 AM C (more content not included)... Normal [facility] CBC panel Auto (Bld)on 02-12 Erythrocyte distribution width (RBC) [Ratio] 14.0 % Normal 11.5-15.0 [facility] Comment on above: Order Comment: Speci men Type: BLOOD SPECIMEN Ordering Facility: [facility] Address: [address] [place] [phone] Performed By: #### 5 8410-2 #### [facility] CLIA [id number] [address] Hematocrit (Bld) [Volume fraction] 37.0 % Low 39.0-51.0 [facility] Comment on above: Order Comment: Speci men Type: BLOOD SPECIMEN Ordering Facility: [facility] Address: [address] [place] [address] Performed By: #### 5 8410-2 #### [facility] CLIA [id number] [address] Hemoglobin (Bld) [Mass/Vol] 12.3 g/dL Low 13.0-17.0 [facility] Comment on above: Order Comment: Speci men Type: BLOOD SPECIMEN Ordering Facility: [facility] Address: [address] [place] [address] Performed By: #### 5 8410-2 #### [facility] CLIA [id number] [address] MCH (RBC) [Entitic mass] 29.9 pg Normal 26.0-34.0 [facility] Comment on above: Order Comment: Speci men Type: BLOOD SPECIMEN Ordering Facility: [facility] Address: [address] [place] [address] Performed By: #### 5 8410-2 #### [facility] CLIA [id number] [address] MCHC (RBC) [Mass/Vol] 33.2 g/dL Normal 30.5-36.0 [facility] Comment on above: Order Comment: Speci men Type: BLOOD SPECIMEN Ordering Facility: [facility] Address: [address] [place] [address] Performed By: #### 5 8410-2 #### [facility] CLIA [id number] [address] MCV (RBC) [Entitic vol] 90.0 fL Normal 80.0-100.0 [facility] Comment on above: Order Comment: Speci men Type: BLOOD SPECIMEN Ordering Facility: [facility] Address: [address] [place] [address] Performed By: #### 5 8410-2 #### [facility] CLIA [id number] [address] [place] Nucleated RBC (Bld) [#/Vol] 10*3/uL Normal <0.01 [facility] Comment on above: Order Comment: Speci men Type: BLOOD SPECIMEN Ordering Facility: [facility] Address: [address] [place] [address] Performed By: #### 5 8410-2 #### [facility] CLIA [id number] [address] [place] Platelet mean volume (Bld) [Entitic vol] 9.0 fL Normal 9.0-12.7 [facility] Comment on above: Order Comment: Speci men Type: BLOOD SPECIMEN Ordering Facility: [facility] Address: [address] [place] [address] Performed By: #### 5 8410-2 #### [facility] CLIA [id number] [address] [place] Platelets (Bld) [#/Vol] 288 10*3/uL Normal 150-400 [facility] Comment on above: Order Comment: Speci men Type: BLOOD SPECIMEN Ordering Facility: [facility] Address: [address] [place] [address] Performed By: #### 5 8410-2 #### [facility] CLIA [id number] [address] [place] RBC (Bld) [#/Vol] 4.11 10*6/uL Low 4.20-6.00 [facility] Comment on above: Order Comment: Speci men Type: BLOOD SPECIMEN Ordering Facility: [facility] Address: [address] [place] [address] Performed By: #### 5 8410-2 #### [facility] CLIA [id number] [address] [place] [address] WBC (Bld) [#/Vol] 8.65 10*3/uL Normal 3.70-11.00 [facility] Comment on above: Order Comment: Speci men Type: BLOOD SPECIMEN Ordering Facility: [facility] Address: [address] [place] [address] Performed By: #### 5 8410-2 #### [facility] CLIA [id number] [address] Erythrocyte distribution width (RBC) [Ratio] 13.9 % Normal 11.5-15.0 [facility] Comment on above: Order Comment: Speci men Type: BLOOD SPECIMEN Ordering Facility: [facility] Address: [address] [place] [address] Performed By: #### 5 8410-2 #### [facility] CLIA [id number] [address] Hematocrit (Bld) [Volume fraction] 37.0 % Low 39.0-51.0 [facility] Comment on above: Order Comment: Speci men Type: BLOOD SPECIMEN Ordering Facility: [facility] Address: [address] [place] [address] Performed By: #### 5 8410-2 #### [facility] CLIA [id number] [address] Hemoglobin (Bld) [Mass/Vol] 12.2 g/dL Low 13.0-17.0 [facility] Comment on above: Order Comment: Speci men Type: BLOOD SPECIMEN Ordering Facility: [facility] Address: [address] [place] [address] Performed By: #### 5 8410-2 #### [facility] CLIA [id number] [address] MCH (RBC) [Entitic mass] 29.8 pg Normal 26.0-34.0 [facility] Comment on above: Order Comment: Speci men Type: BLOOD SPECIMEN Ordering Facility: [facility] Address: [address] [place] [address] Performed By: #### 5 8410-2 #### [facility] CLIA [id number] [address] MCHC (RBC) [Mass/Vol] 33.0 g/dL Normal 30.5-36.0 [facility] Comment on above: Order Comment: Speci men Type: BLOOD SPECIMEN Ordering Facility: [facility] Address: [address] [place] [address] Performed By: #### 5 8410-2 #### [facility] CLIA [id number] [address] MCV (RBC) [Entitic vol] 90.5 fL Normal 80.0-100.0 [facility] Comment on above: Order Comment: Speci men Type: BLOOD SPECIMEN Ordering Facility: [facility] Address: [address] [place] [address] Performed By: #### 5 8410-2 #### [facility] CLIA [id number] [address] Nucleated RBC (Bld) [#/Vol] 10*3/uL Normal <0.01 [facility] Comment on above: Order Comment: Speci men Type: BLOOD SPECIMEN Ordering Facility: [facility] Address: [address] [place] [address] Performed By: #### 5 8410-2 #### [facility] CLIA [id number] [address] Platelet mean volume (Bld) [Entitic vol] 8.6 fL Low 9.0-12.7 [facility] Comment on above: Order Comment: Speci men Type: BLOOD SPECIMEN Ordering Facility: [facility] Address: [address] [place] [address] Performed By: #### 5 8410-2 #### [facility] CLIA [id number] [address] [place] Platelets (Bld) [#/Vol] 279 10*3/uL Normal 150-400 [facility] Comment on above: Order Comment: Speci men Type: BLOOD SPECIMEN Ordering Facility: [facility] Address: [address] [place] [address] Performed By: #### 5 8410-2 #### [facility] CLIA [id number] [address] RBC (Bld) [#/Vol] 4.09 10*6/uL Low 4.20-6.00 [facility] Comment on above: Order Comment: Speci men Type: BLOOD SPECIMEN Ordering Facility: [facility] Address: [address] [place] [address] Performed By: #### 5 8410-2 #### [facility] CLIA [id number] [address] WBC (Bld) [#/Vol] 9.06 10*3/uL Normal 3.70-11.00 [facility] Comment on above: Order Comment: Speci men Type: BLOOD SPECIMEN Ordering Facility: [facility] Address: [address] [place] [address] Performed By: #### 5 8410-2 #### [facility] CLIA [id number] [address] CONSULTon 02-12-2023 CONSULT HNO ID: [id number] Author: Pretty Cardenas MD Service: Pain Management [...] lower back pain. Patient was seen at [facility]. CT HNCAPT completed and demonstrated acute [...] iv infusion 100 mL/hr INTRAVENOUS CONTINUOUS Shira Galarza, DO 100 mL/hr at 02/11/23 2343 100 mL/hr at 02/11/23 2343 acetaminophen 975 mg tab(s) (TYLENOL) 975 mg ORAL QID Shira Galarza, DO 975 mg at 02/12/23 0517 NaCl [...] (more content not included)... Normal [facility] CONSULT HNO ID: [id number] Author: Vince Márquez APRN.SUPERVISOR PROPERTIES Service: Neurosurgery Author Type: Nurse Practitioner Type: [...] BRAIN SURGERY HX OTHER ANEURYSM REPAIR 1983 [facility]- Dr. Simpson- Brain Aneurysm FAMILY HISTORY Problem [...] at 02/11/23 2343 100 mL/hr at 02/11/23 234 acetaminophen 975 mg tab(s) (TYLENOL) 975 mg [...] 20 mL INTRAVENOUS PRN Shira Galarza, DO COMPLETE REVIEW OF SYSTEMS PAIN ASSESSMENT: [...] (more content not included)... Normal [facility] Comprehensive metabolic 2000 panelon 02-12-2023 Albumin [Mass/Vol] 3.9 g/dL Normal 3.9-4.9 [facility] Comment on above: Order Comment: Speci men Type: BLOOD SPECIMEN Ordering Facility: [facility] Address: [address] [place] [address] Performed By: #### 1 989-3 #### [facility] CLIA [id number] [address] ALP [Catalytic activity/Vol] 78 U/L Normal 38-113 [facility] Comment on above: Order Comment: Speci men Type: BLOOD SPECIMEN Ordering Facility: [facility] Address: [address] [place] [address] Performed By: #### 1 989-3 #### [facility] CLIA [id number] [address] ALT With P-5'-P [Catalytic activity/Vol] 19 U/L Normal 10-54 [facility] Comment on above: Order Comment: Speci men Type: BLOOD SPECIMEN Ordering Facility: [facility] Address: [address] [place] [address] Performed By: #### 1 989-3 #### [facility] CLIA [id number] [address] Anion gap [Moles/Vol] 11 mmol/L Normal 9-18 [facility] Comment on above: Order Comment: Speci men Type: BLOOD SPECIMEN Ordering Facility: [facility] Address: [address] [place] [address] Performed By: #### 1 989-3 #### [facility] CLIA [id number] [address] AST With P-5'-P [Catalytic activity/Vol] 21 U/L Normal 14-40 [facility] Comment on above: Order Comment: Speci men Type: BLOOD SPECIMEN Ordering Facility: [facility] Address: [address] [place] [address] Performed By: #### 1 989-3 #### [facility] CLIA [id number] [address] [place] Bilirubin [Mass/Vol] 0.9 mg/dL Normal 0.2-1.3 [facility] Comment on above: Order Comment: Speci men Type: BLOOD SPECIMEN Ordering Facility: [facility] Address: [address] [place] [address] Performed By: #### 1 989-3 #### [facility] CLIA [id number] [address] [place] Calcium [Mass/Vol] 8.9 mg/dL Normal 8.5-10.2 [facility] Comment on above: Order Comment: Speci men Type: BLOOD SPECIMEN Ordering Facility: [facility] Address: [address] [place] [address] Performed By: #### 1 989-3 #### [facility] CLIA [id number] [address] [place] Chloride [Moles/Vol] 105 mmol/L Normal 97-105 [facility] Comment on above: Order Comment: Speci men Type: BLOOD SPECIMEN Ordering Facility: [facility] Address: [address] [place] [address] Performed By: #### 1 989-3 #### [facility] CLIA [id number] [address] [place] CO2 [Moles/Vol] 24 mmol/L Normal 22-30 [facility] Comment on above: Order Comment: Speci men Type: BLOOD SPECIMEN Ordering Facility: [facility] Address: [address] [address] Performed By: #### 1 989-3 #### [facility] CLIA [id number] [address] [place] Creatinine [Mass/Vol] 0.87 mg/dL Normal 0.73-1.22 [facility] Comment on above: Order Comment: Speci men Type: BLOOD SPECIMEN Ordering Facility: [facility] Address: [address] [place] [address] Performed By: #### 1 989-3 #### [facility] CLIA [id number] [address] [place] [address] [place] ESTIMATED GLOMERULAR FILTRATION RATE 95 mL/min/1.73m??? Normal >=60 [facility] Comment on above: Order Comment: Yo brothers Type: BLOOD SPECIMEN Ordering Facility: [facility] Address: [address] [place] [address] Result Comment: Josee mated Glomerular Filtration Rate [...] GFR. Performed By: #### 1 989-3 #### [facility] CLIA [id number] [address] [place] [address] [place] Glucose [Mass/Vol] 85 mg/dL Normal 74-99 [facility] Comment on above: Order Comment: Yo brothers Type: BLOOD SPECIMEN Ordering Facility: [facility] Address: [address] [place] [address] Result Comment: The [place] [employer] (ADA) provides guidance for cutoff [...] Standards of Medical Care in Diabetes 2016, [place] [employer]. Diabetes Care. 2016.39(Suppl 1). Performed By: #### 1 989-3 #### [facility] CLIA [id number] [address] [place] [address] [place] Potassium [Moles/Vol] 3.8 mmol/L Normal 3.7-5.1 [facility] Comment on above: Order Comment: Speci men Type: BLOOD SPECIMEN Ordering Facility: [facility] Address: [address] [place] [address] Performed By: #### 1 989-3 #### [facility] CLIA [id number] [address] [facility] Protein [Mass/Vol] 6.4 g/dL Normal 6.3-8.0 [facility] Comment on above: Order Comment: Speci men Type: BLOOD SPECIMEN Ordering Facility: [facility] Address: [address] [place] [address] Performed By: #### 1 989-3 #### [facility] CLIA [id number] [address] [place] [address] Sodium [Moles/Vol] 140 mmol/L Normal 136-144 [facility] Comment on above: Order Comment: Speci men Type: BLOOD SPECIMEN Ordering Facility: [facility] Address: [address] [place] [address] Performed By: #### 1 989-3 #### [facility] CLIA [id number] [address] [place] [address] Urea nitrogen [Mass/Vol] 8 mg/dL Low 9-24 [facility] Comment on above: Order Comment: Speci men Type: BLOOD SPECIMEN Ordering Facility: [facility] Address: [address] [place] [address] Performed By: #### 1 989-3 #### [facility] CLIA [id number] [address] [place] [address] [place] ED NOTEon 02-12-2023 ED NOTE HNO ID: [id number] Author: Gaby Carlisle RN Service: Nursing Author Type: Registered Nurse Type: ED Notes Filed: 02/11/2023 11:07 PM Note Text: Report called to Jeannie KING for room 5265. No further questions at this time. Room ready, will send patient. Normal [facility] ED NOTE HNO ID: [id number] Author: Gaby Carlisle RN Service: Nursing Author Type: Registered Nurse Type: ED Notes Filed: 02/11/2023 10:35 PM Note Text: RN attempted to call report. RN unavailable. [facility] ED NOTE HNO ID: [id number] Author: Gayb Carlisle RN Service: Nursing Author Type: Registered Nurse Type: ED Notes Filed: 02/11/2023 10:33 PM Note Text: MRI screening form filled and faxed. Normal [facility] ED PROV NOTEon 02-12-2023 ED PROV NOTE HNO ID: [id number] Author: Julius Castellon MD Service: Emergency Medicine Author Type: Physician Type: ED Provider Notes Filed: 02/13/2023 9:00 PM Note Text: ED Provider Note Patient Name: Winston Mari : 1955 SERVICE DATE: 02/11/23 History Patient presents with: Trauma: Transfer from [facility]. Patient with L2 fracture after falling off roof 02/11 afternoon. C/O new left foot tingling intermittently since fall. GCS 15.-thinners -LOC -hit head Patient is a 68-year-old male who presents as a transfer from [facility]. Patient was on his roof when he fell off, 25 to 30 feet onto the ground. Patient did not lose consciousness. Patient states he landed on his legs and does not believe that he hit his head. Patient heard a crack in his back. Patient was taken to [place] where he was found to have a [...] BRAIN SURGERY HX OTHER ANEURYSM REPAIR 1983 [facility]- Dr. Simpson- Brain Aneurysm FAMILY HISTORY Problem [...] (more content not included)... Normal [facility] Ethanol SerPl-mCncon 023 Ethanol [Mass/Vol] mg/dL Normal <11 [facility] Comment on above: Order Comment: Speci men Type: BLOOD SPECIMEN Ordering Facility: [facility] Address: [address] [place] [address] Performed By: #### 5 643-2 #### [facility] IA [id number] [address] [place] [address] [place] [facility] HISTORY PHYSICALon HISTORY PHYSICAL HNO ID: [id number] Author: Shira Galarza DO Service: General Surgery [...] MD Delayed entry ----- TRAUMA SURGERY [facility] ARRIVAL DATE: 02/11/2023 ARRIVAL TIME: 21:30 CATEGORY: [...] off the roof. Landed on his feet. [place] and heard a large crack in his lower back and acute onset of low back pain. Denies hitting his head. Denies LOC. No blood thinners. Went to [facility]. CT HNCAPT completed showed acute L2 fracture. [...] BRAIN SURGERY HX OTHER ANEURYSM REPAIR 1983 [facility]- Dr. Simpson- Brain Aneurysm Social History Tobacco [...] Not Applicable PROCEDURES: None SECONDARY SURVEY VITALS: 02/11/23200902/11/23 2100 02/11/23 2200 BP: 144/98 151/88 131/89 Pulse: 55 [...] (more content not included)... Normal [facility] Lipase SerPl-cCncon 02-13-20 Lipase [Catalytic activity/Vol] 84 U/L High 16-61 [facility] Comment on above: Order Comment: Speci men Type: BLOOD SPECIMEN Ordering Facility: [facility] Address: [facility] [place] [address] Performed By: #### 1 989-3 #### [facility] CLIA [id number] [address] [place] [address] [place] MRI LUMBAR SPINE WO IVCONon 02-12-2023 MRI LUMBAR SPINE WO IVCON * * *Final Report* * * DATE OF EXAM: Feb 12 2023 8:07AM [place] 0[place] - MRI LUMBAR SPINE WO IVCON [...] and assume there are 5 lumbar-type vertebrae. Building Construction Foreman[facility] Transcribe Date/Time: Feb 12 2023 8:08A Dictated by : MISTI IRVIN MD This examination was interpreted and the report reviewed and electronically signed by: MISTI IRVIN MD on Feb 12 2023 8:25AM EST [id number] Normal [facility] PT panel Coag (PPP)on 2022 INR Coag (PPP) [Relative time] 1.0 {INR} Normal 0.9-1.3 [facility] Comment on above: Order Comment: Yo brothers Type: BLOOD SPECIMEN Ordering Facility: [facility] Address: [place] [id number] Result Comment: Ashley min K Antagonist (VKA) Therapeutic Range: INR 2 to 3 (Target INR of 2.5) Note: For patients treated with VKA drugs, such as warfarin, the [employer] 2012 Guideline recommends [...] 2.5 to 3.5 (target INR of 3). Smitatt GH, et al. Chest 2012, 141:7S-47S Kasie RA, et al. [facility] 2017, 70: 252-289 Performed By: #### 3 4528-0, 38024-4 #### [facility] CLIA [id number] [address] [place] PT Coag (PPP) [Time] 10.9 s Normal 9.7-13.0 [facility] Comment on above: Order Comment: Yo brothers Type: BLOOD SPECIMEN Ordering Facility: [facility] Address: [place] [address] Performed By: #### 3 4528-0, 40274-7 #### [facility] CLIA [id number] [address] [place] [address] [place] THERAPY NTon 02-12-2023 THERAPY NT HNO ID: [id number] Author: Carey Skinner OTR/L Service: Occupational Therapy Author Type: Occupational Therapist Type: Therapy (PT/OT/Speech/Resp) Filed: 02/12/2023 9:52 AM Note Text: OCCUPATIONAL THERAPY MISSED VISIT SERVICE DATE: 02/12/2023 SERVICE TIME: 951 to 951 ROOM: [place] [address] Patient not seen due to Hold: Clinical Appropriateness (Pending neurosurgery input. Will hold for now). SIGNATURE: Carey Skinner OTR/L PATIENT NAME: Winston Mari DATE: February 12, 2023 TIME: 9:52 AM Normal [facility] THERAPY NT HNO ID: [id number] Author: Ileana Brooke PT Service: Physical Therapy Author Type: Physical Therapist Type: Therapy (PT/OT/Speech/Resp) Filed: 02/12/2023 8:10 AM Note Text: PHYSICAL THERAPY MISSED VISIT SERVICE DATE: 02/12/2023 SERVICE TIME: 0810 to 0810 ROOM: [place] [address] ([facility]) Patient not seen due to Hold: Clinical Appropriateness (awaiting neurosurg consult and plan). SIGNATURE: Ileana Brooke PT PATIENT NAME: Winston Mari DATE: February 12, 2023 TIME: 8:10 AM Normal [facility] TOX SCREEN ROUT URon 023 Amphetamines Confirm (U) [Mass/Vol] Negative Normal Negative [facility] Comment on above: Order Comment: Speci men Type: BLOOD SPECIMEN Ordering Facility: [facility] Address: [address] [place] [address] Result Comment: Cuto ff threshold at 1000 ng/mL. Performed By: #### 1 989-3 #### [facility] CLIA [id number] [address] [place] BARBITURATES, URINE Negative Normal Negative [facility] Comment on above: Order Comment: Speci men Type: BLOOD SPECIMEN Ordering Facility: [facility] Address: [address] [place] [address] Result Comment: Cuto ff threshold at 200 ng/mL. Performed By: #### 1 989-3 #### [facility] CLIA [id number] [address] [place] [address] [place] BENZODIAZEPINES, UR Negative Normal Negative [facility] Comment on above: Order Comment: Speci men Type: BLOOD SPECIMEN Ordering Facility: [facility] Address: [address] [place] [address] Result Comment: Cuto ff threshold at 200 ng/mL. Performed By: #### 1 989-3 #### [facility] CLIA [id number] [address] CANNABINOIDS,URINE Positive Abnormal Negative [facility] Comment on above: Order Comment: Speci men Type: BLOOD SPECIMEN Ordering Facility: [facility] Address: [address] [place] [address] Result Comment: Cuto ff threshold at 50 ng/mL. Performed By: #### 1 989-3 #### [facility] CLIA [id number] [address] Cocaine Ql (U) Negative Normal Negative [facility] Comment on above: Order Comment: Speci men Type: BLOOD SPECIMEN Ordering Facility: [facility] Address: [address] [place] [address] Result Comment: Cuto ff threshold at 300 ng/mL. Performed By: #### 1 989-3 #### [facility] CLIA [id number] [address] Ethanol (U) [Mass/Vol] <11 Normal <11 [facility] Comment on above: Order Comment: Speci men Type: BLOOD SPECIMEN Ordering Facility: [facility] Address: [address] [place] [address] Performed By: #### 1 989-3 #### [facility] CLIA [id number] [address] Opiates Screen Ql (U) Positive Abnormal Negative [facility] Comment on above: Order Comment: Speci men Type: BLOOD SPECIMEN Ordering Facility: [facility] Address: [address] [place] [address] Result Comment: Cuto ff threshold at 300 ng/mL. Performed By: #### 1 989-3 #### [facility] CLIA [id number] [address] oxyCODONE cutoff Screen (U) [Mass/Vol] Negative Normal Negative [facility] Comment on above: Order Comment: Speci men Type: BLOOD SPECIMEN Ordering Facility: [facility] Address: [address] [place] [address] Result Comment: Cuto ff threshold at 100 ng/mL. Performed By: #### 1 989-3 #### [facility] CLIA [id number] [address] Phencyclidine Ql (U) Negative Normal Negative [facility] Comment on above: Order Comment: Speci men Type: BLOOD SPECIMEN Ordering Facility: [facility] Address: [address] [place] [address] Result Comment: Cuto ff threshold at 25 ng/mL. Performed By: #### 1 989-3 #### [facility] CLIA [id number] [address] TYPE + SCREENon 02-12-2023 ABO O Normal [facility] Comment on above: Order Comment: Speci men Type: BLOOD SPECIMENOrdering Facility: [facility] Address: [address] [place] [address] Performed By: #### T SCR ####[facility] [id number] [address] HISTORICAL AB SCR STATUS Negative Normal [facility] Comment on above: Order Comment: Speci men Type: BLOOD SPECIMENOrdering Facility: [facility] Address: [address] [place] [address] Performed By: #### T SCR ####[facility] [id number] [address] Rh Nom (Bld) Positive Normal [facility] Comment on above: Order Comment: Speci men Type: BLOOD SPECIMENOrdering Facility: [facility] Address: [address] [place] [address] Performed By: #### T SCR ####[facility] [id number] [address] TYPE AND SCREEN EXPIRATION 02/14/2023 23:59 Normal [facility] Comment on above: Order Comment: Speci men Type: BLOOD SPECIMENOrdering Facility: [facility] Address: [address] [facility] [place] [address] Performed By: #### T SCR ####[facility] [id number] [place] [address] [place] XR LUMBAR 2V FLEX/EXTon 01-21 [...] L2 and L4 similar to prior MRI. Building Construction Foreman: [facility] Transcribe Date/Time: Feb 13 2023 8:46A Dictated by : ALEXANDER CHOPRA MD This examination was interpreted and the report reviewed and electronically signed by: ALEXANDER CHOPRA MD on Feb 13 2023 8:49AM EST [id number] Normal [facility] aPTT PPPon 02-12-2023 aPTT Coag (PPP) [Time] 28.8 s Normal 23.0-32.4 [facility] Comment on above: Order Comment: Speci men Type: BLOOD SPECIMEN Ordering Facility: [facility] Address: [place] [address] Performed By: #### 3 4528-0, 45412-4 #### [facility] CLIA [id number] 1 [place] [address] [place] [facility] Absolute lymphocyte countOrd ered By: Dr. Mari on 02-11-2023 Lymphocytes Auto (Unsp spec) [#/Vol] 1.64 10*3/uL 0.83-4.51 [facility] Basophil percentageOrdered B y: Dr. Mari on 02-11-2023 Basophil percentage 0 SEEN /hpf 0-5 [facility] Basophils/100 WBC (Bld) 0.7 % 0-1 [facility] Bilirubin [Mass/Vol] 0.80 mg/dL 0.20-1.00 [facility] Comment on above: For patients on eltr ombopag therapy, use of Dimension [place] TBIL is not recommended. Chloride [Moles/Vol] 110 mmol/L 98-107 [facility] Eosinophils/100 WBC (Bld) 2.6 % 0-5 [facility] Glucose [Mass/Vol] 103 mg/dL 74-106 [facility] Comment on above: Fasting Glucose resu lt from 100 to 125 mg/dL suggests IMPAIRED HOMEOSTASIS per A.D.A. criteria. Neutrophils (Bld) [#/Vol] 5.8 10*3/uL 2.0-7.7 [facility] Neutrophils/100 WBC (Bld) 69.1 % 47-70 [facility] Potassium [Moles/Vol] 4.0 mmol/L 3.5-5.1 [facility] Comment on above: Slight Hemolysis, Re sult may be falsely increased. Protein [Mass/Vol] 6.6 g/dL 6.4-8.2 [facility] Sodium [Moles/Vol] 137 mmol/L 136-145 [facility] WBC (Bld) [#/Vol] 8.4 10*3/uL 4.4-11.0 [facility] Bilirubin Test strip Ql (U)O rdered By: Dr. Mari on 02-11-2023 Bilirubin Ql (U) Negative Negative [facility] Blood erythrocytes count (nu mber/volume)Ordered By: Dr. Mari on 02-11-2023 RBC (Bld) [#/Vol] 4.10 10*6/uL 4.6-6.2 [facility] Blood hemoglobin measurement (mass/volume)Ordered By: Dr. Mari on 02-11-2023 Hemoglobin (Bld) [Mass/Vol] 12.6 g/dL 13.0-16.5 [facility] Blood lymphocytes/100 leukoc ytesOrdered By: Dr. Mari on 02-11-2023 Lymphocytes/100 WBC (Bld) 19.5 % 19-41 [facility] Blood monocytes/100 leukocyt esOrdered By: Dr. Mari on 02-11-2023 Monocytes/100 WBC (Bld) 6.8 % 0-10 [facility] Blood platelet mean volumeOr dered By: Dr. Mari on 02-11-2023 Platelet mean volume (Bld) [Entitic vol] 9.0 fL 6.2-12.0 [facility] Determination of erythrocyte mean corpuscular volume (MCV)Ordered By: Dr. Mari on 02-11-2023 MCV (RBC) [Entitic vol] 91.7 fL 80-94 [facility] ED NOTEon 02-11-2023 ED NOTE HNO ID: [id number] Author: Gaby Carlisle RN Service: Nursing Author Type: Registered Nurse Type: ED Notes Filed: 02/11/2023 9:28 PM Note Text: Trauma at bedside. [facility] ED NOTE HNO ID: [id number] Author: Gaby Carlisle RN Service: Nursing Author Type: Registered Nurse Type: ED Notes Filed: 02/11/2023 8:10 PM Note Text: Patient arrives via EMS with C-collar in place. [facility] ED NOTE HNO ID: [id number] Author: Gaby Carlisle RN Service: Nursing Author Type: Registered Nurse Type: ED Notes Filed: 02/11/2023 8:09 PM Note Text: Patient placed on monitoring tech for clinical monitoring. [facility] ED NOTE HNO ID: [id number] Author: Mara Calvin RN Service: ? Author Type: Registered Nurse Type: ED Notes Filed: 02/11/2023 8:05 PM Note Text: Bed: 43-ED Expected date: Expected time: Means of arrival: Comments: [place] Normal [facility] ED PROV NOTEon 02-11-2023 ED PROV NOTE HNO ID: [id number] Author: Julius Castellon MD Service: Emergency Medicine [...] care with the resident. Patient transferred from [facility] for L2 fracture. Around 1 PM he fell off the roof and he said he landed on his left lower extremity. He was unable to get up due to his excruciating pain in his left lower extremity and his back. He had evaluation at [facility] which found L2 fracture. Denies headache. Has [...] JULIUS CASTELLON 02/12/23 0100 Normal [facility] Hematocrit Auto (Bld) [Volum e fraction]Ordered By: Dr. Mari on 02-11-2023 Hematocrit (Bld) [Volume fraction] 37.6 % 40-54 [facility] INR in Blood by Coagulation assayOrdered By: Dr. Mari on 02-11-2023 INR Coag (Bld) [Relative time] 1.2 {INR} [facility] Ketones Test strip Ql (U)Ord ered By: Dr. Mari on 02-11-2023 Ketones Ql (U) Negative Negative [facility] Laboratory - Chemistry and C hemistry - challengeOrdered By: Dr. Mari on 02-11-2023 ALP [Catalytic activity/Vol] 78 U/L 45-117 [facility] ALT [Catalytic activity/Vol] 27 U/L 16-61 [facility] CO2 [Moles/Vol] 25.0 mmol/L 21.0-32.0 [facility] Globulin (S) [Mass/Vol] 3.3 g/dL 2.2-4.2 [facility] Lipase [Catalytic activity/Vol] 24 U/L 13-75 [facility] Comment on above: Please note:LIPASE r evised reference range effective 23. New Lipase methodology. Expected to produce lower values than the previous assay method. NEW Reference Range: 13 - 75 U/L Urea nitrogen/Creatinine [Mass ratio] 12.2 mg/mg 10-20 [facility] Laboratory - CoagulationOrde red By: Dr. Mari on 02-11-2023 aPTT Coag (Bld) [Time] 31.9 s 24.1-36.2 [facility] PT Coag (PPP) [Time] 14.4 s 11.7-14.9 [facility] Laboratory - Hematology and Cell countsOrdered By: Dr. Mari on 02-11-2023 Erythrocyte distribution width (RBC) [Entitic vol] 46.7 fL 35.1-43.9 [facility] Erythrocyte distribution width (RBC) [Ratio] 13.8 % 11.6-14.6 [facility] Immature granulocytes/100 WBC (Bld) 1.300 % 0.0-0.9 [facility] Comment on above: IG% - Immature Granu locytes (promyelocytes, myelocytes and metamyelocytes) > 1% indicates that a LEFT SHIFT is Present. MCH (RBC) [Entitic mass] 30.7 pg 27.0-32.0 [facility] Nucleated RBC/100 WBC (Bld) [Ratio] 0 % 0-5 [facility] MCHC Auto (RBC) [Mass/Vol]Or dered By: Dr. Mari on 04-23-2023 MCHC (RBC) [Mass/Vol] 33.5 g/dL 32-36 [facility] Mucus LM Ql (Urine sed)Order ed By: Dr. Mari on 02-11-2023 Mucus Ql (Urine sed) 0 SEEN /hpf [facility] Nitrite Test strip Ql (U)Ord ered By: Dr. Mari on 02-11-2023 Nitrite Ql (U) Negative Negative [facility] No Panel InformationOrdered By: Dr. Mari on 02-11-2023 Estimated Creatinine Clearance Calc 75.79 ml/min [facility] Estimated GFR (MDRD) Amer 97 mL/min >60 [facility] Comment on above: GFR Calc Estimated GFR (MDRD) Non-Af Amer 80 mL/min >60 [facility] Comment on above: Non- GFR Calc Ethyl Alcohol Level < 3.0 mg/dL [facility] Comment on above: The serum:whole bloo d ethanol ratio is approximately 1.14and varies slightly with hematocrit. Medical Alcohol reference interval and critical value innon-tolerant individuals; 50 - 100 Impairment 100 Intoxication 100 - 250 Severe Poisoning 250 - 400 Deep/possible fatal coma Platelets bldOrdered By: Dr. Mari on 02-11-2023 Platelets (Bld) [#/Vol] 324 10*3/uL 150-450 [facility] Protein Test strip Ql (U)Ord ered By: Dr. Mari on 02-11-2023 Protein Ql (U) Negative Negative [facility] Serum or plasma albumin doug urement (mass/volume)Ordered By: Dr. Mari on 02-11-2023 Albumin [Mass/Vol] 3.3 g/dL 3.2-5.0 [facility] Serum or plasma albumin/glob ulin mass ratioOrdered By: Dr. Mari on 02-11-2023 Albumin/Globulin [Mass ratio] 1.0 {ratio} 0.9-2.4 [facility] Serum or plasma calcium doug urement (mass/volume)Ordered By: Dr. Mari on 02-11-2023 Calcium [Mass/Vol] 9.0 mg/dL 8.5-10.1 [facility] Serum or plasma creatinine m easurement (mass/volume)Ordered By: Dr. Mari on 02-11-2023 Creatinine [Mass/Vol] 0.99 mg/dL 0.70-1.30 [facility] Comment on above: The validity of the calculated GFR & GFRAA in patients over 70 years has not been determined. Clinical correlation is essential. Serum or plasma urea nitroge n measurement (mass/volume)Ordered By: Dr. Mari on 02-11-2023 Urea nitrogen [Mass/Vol] 12 mg/dL 7-18 [facility] Squamous epithelial cells de tection in urine sediment by light microscopyOrdered By: Dr. Mari on 02-11-2023 Epithelial cells.squamous LM Ql (Urine sed) 0 SEEN /hpf 0-5 [facility] Thin prep Papanicolaou smear with manual screeningOrdered By: Dr. Mari on 02-11-2023 Thin prep Papanicolaou smear with manual screening 26 U/L 15-37 [facility] Comment on above: Slight Hemolysis, Re sult may be falsely increased. Thin prep Papanicolaou smear with manual screening 2 5-15 [facility] Urine blood detectionOrdered By: Dr. Mari on 02-11-2023 RBC Ql (U) 10 /ul Negative [facility] RBC Ql (U) 0 SEEN /hpf 0-5 [facility] Urine clarityOrdered By: Dr. Mari on 02-11-2023 Clarity (U) Clear Clear [facility] Urine color determinationOrd ered By: Dr. Mari on 02-11-2023 Color (U) Yellow Yellow [facility] Urine glucose detectionOrder ed By: Dr. Mari on 02-11-2023 Glucose Ql (U) Normal mg/dl Normal [facility] Urine leukocyte esterase det ection by dipstickOrdered By: Dr. Mari on 02-11-2023 Leukocyte esterase Test strip Ql (U) Negative Negative [facility] Urine pHOrdered By: Dr. Kathya guzmán on 02-11-2023 pH (U) 8.0 [pH] 5.0 - 8.0 [facility] Urine sediment bacteria coun t by microscopy (number/high power field)Ordered By: Dr. Mari on 02-11-2023 Bacteria LM.HPF (Urine sed) [#/Area] 0 /[HPF] None Seen [facility] Urine specific gravity measu rementOrdered By: Dr. Mari on 02-11-2023 Specific gravity (U) [Rel density] 1.010 1.002-1.03 0 [facility] Urobilinogen Auto test strip Ql (U)Ordered By: Dr. Mari on 02-11-2023 Urobilinogen Ql (U) Normal mg/dl Normal [facility] BD BONE DENSITY DEXA AXIAL S Jessica 12-15-2022 BD BONE DENSITY DEXA AXIAL SKELETON [...] 12/15/2022 4:34:29 PM Ordering Provider: EUGENIO Vickers [facility] ([place]) YARITZAOVmike 09-19-2022 CNOV Office Visit (GENSWS ) ----- WINSTON MAIR ([id number]) 1955 M Date Time Provider Department 09/19/22 3:30 PM HUBERT JETT During your visit today, we recorded the following information about you: Temperature Pulse Blood pressure Weight 98.5 degrees 88/minute 128/74 71.7 kg Height 1.803 m Ana Maria Padilla LPN 09/19/2022 4:10 PM [...] to your office visit today with the [facility] General Surgeons. INSTRUCTIONS FOR AN ANAL FISSURE [...] you should contact our office immediately @ [phone] and ask to be transferred to the General Surgery department. Hubert Jett MD 09/20/2022 6:52 AM Signed HISTORY AND PHYSICAL Winston Mari 1955 REFERRING PHYSICIAN: Eugenio Mayen IV, MD CHIEF COMPLAINT: Anal Pain HPI: Winston henriquez (more content not included)... Normal [facility] LABORATORYOrdered By: Maddie Currie on [...] Auto (Unsp spec) [#/Vol] 2.03 10*3/uL 0.83-4.51 [facility] Work Phone: Basophil percentageon 2021 Basophil percentage 5-10 SEEN /hpf 0-5 [facility] Work Phone: Basophils/100 WBC (Bld) 1.0 % 0-1 [facility] Work Phone: Chloride [Moles/Vol] 104 mmol/L 98-107 [facility] Work Phone: Eosinophils/100 WBC (Bld) 3.5 % 0-5 [facility] Work Phone: Glucose [Mass/Vol] 88 mg/dL 74-106 [facility] Work Phone: Neutrophils (Bld) [#/Vol] 4.0 10*3/uL 2.0-7.7 [facility] Work Phone: Neutrophils/100 WBC (Bld) 56.6 % 47-70 [facility] Work Phone: Potassium [Moles/Vol] 3.5 mmol/L 3.5-5.1 [facility] Work Phone: Sodium [Moles/Vol] 136 mmol/L 136-145 [facility] Work Phone: WBC (Bld) [#/Vol] 7.1 10*3/uL 4.4-11.0 [facility] Work Phone: Bilirubin Test strip Ql (U)o n 08-12-2022 Bilirubin Ql (U) Negative Negative [facility] Work Phone: Blood erythrocytes count (nu mber/volume)on 08-12-2022 RBC (Bld) [#/Vol] 4.49 10*6/uL 4.6-6.2 [facility] Work Phone: Blood hemoglobin measurement (mass/volume)on 08-12-2022 Hemoglobin (Bld) [Mass/Vol] 13.5 g/dL 13.0-16.5 [facility] Work Phone: Blood lymphocytes/100 leukoc yteson 08-12-2022 Lymphocytes/100 WBC (Bld) 28.8 % 19-41 [facility] Work Phone: Blood monocytes/100 leukocyt eson 08-12-2022 Monocytes/100 WBC (Bld) 9.8 % 0-10 [facility] Work Phone: Blood platelet mean volumeon 08-12-2022 Platelet mean volume (Bld) [Entitic vol] 8.7 fL 6.2-12.0 [facility] Work Phone: Determination of erythrocyte mean corpuscular volume (MCV)on 08-12-2022 MCV (RBC) [Entitic vol] 90.2 fL 80-94 [facility] Work Phone: Hematocrit Auto (Bld) [Volum e fraction]on 08-12-2022 Hematocrit (Bld) [Volume fraction] 40.5 % 40-54 [facility] Work Phone: Ketones Test strip Ql (U)on 08-12-2022 Ketones Ql (U) Negative Negative [facility] Work Phone: Laboratory - Chemistry and C hemistry - challengeon 08-12-2022 CO2 [Moles/Vol] 26.0 mmol/L 21.0-32.0 [facility] Work Phone: Urea nitrogen/Creatinine [Mass ratio] 17.3 mg/mg 10-20 [facility] Work Phone: Laboratory - Hematology and Cell countson 08-12-2022 Erythrocyte distribution width (RBC) [Entitic vol] 43.8 fL 35.1-43.9 [facility] Work Phone: Erythrocyte distribution width (RBC) [Ratio] 13.2 % 11.6-14.6 [facility] Work Phone: Immature granulocytes/100 WBC (Bld) 0.300 % 0.0-0.9 [facility] Work Phone: Comment on above: IG% - Immature Granu locytes (promyelocytes, myelocytes and metamyelocytes) > 1% indicates that a LEFT SHIFT is Present. MCH (RBC) [Entitic mass] 30.1 pg 27.0-32.0 [facility] Work Phone: Nucleated RBC/100 WBC (Bld) [Ratio] 0 % 0-5 [facility] Work Phone: MCHC Auto (RBC) [Mass/Vol]on 08-12-2022 MCHC (RBC) [Mass/Vol] 33.3 g/dL 32-36 [facility] Work Phone: Mucus LM Ql (Urine sed)on Mucus Ql (Urine sed) 0 SEEN /hpf [facility] Work Phone: Nitrite Test strip Ql (U)on 08-12-2022 Nitrite Ql (U) Negative Negative [facility] Work Phone: No Panel Informationon 08-12 Estimated Creatinine Clearance Calc 55.02 ml/min [facility] Work Phone: Estimated GFR (MDRD) Amer 69 mL/min >60 [facility] Work Phone: Comment on above: GFR Calc Estimated GFR (MDRD) Non-Af Amer 57 mL/min >60 [facility] Work Phone: Comment on above: Non- GFR Calc Platelets bldon 08-12-2022 Platelets (Bld) [#/Vol] 347 10*3/uL 150-450 [facility] Work Phone: [phone] Protein Test strip Ql (U)on 08-12-2022 Protein Ql (U) Negative Negative [facility] Work Phone: [phone] Serum or plasma calcium doug urement (mass/volume)on 08-12-2022 Calcium [Mass/Vol] 9.1 mg/dL 8.5-10.1 [facility] Work Phone: [phone] Serum or plasma creatinine m easurement (mass/volume)on 08-12-2022 Creatinine [Mass/Vol] 1.33 mg/dL 0.70-1.30 [facility] Work Phone: Comment on above: The validity of the calculated GFR & GFRAA in patients over 70 years has not been determined. Clinical correlation is essential. Serum or plasma urea nitroge n measurement (mass/volume)on 08-12-2022 Urea nitrogen [Mass/Vol] 23 mg/dL 7-18 [facility] Work Phone: Squamous epithelial cells de tection in urine sediment by light microscopyon 08-12-2022 Epithelial cells.squamous LM Ql (Urine sed) 0 SEEN /hpf 0-5 [facility] Work Phone: [phone] Thin prep Papanicolaou smear with manual screeningon 08-12-2022 Thin prep Papanicolaou smear with manual screening 6 5-15 [facility] Work Phone: [phone] Urine blood detectionon 07-23 RBC Ql (U) 25 /ul Negative [facility] Work Phone: [phone] RBC Ql (U) 0 SEEN /hpf 0-5 [facility] Work Phone: [phone] Urine clarityon 08-12-2022 Clarity (U) Clear Clear [facility] Work Phone: Urine color determinationon 08-12-2022 Color (U) Yellow Yellow [facility] Work Phone: [phone] Urine glucose detectionon Glucose Ql (U) Normal mg/dl Normal [facility] Work Phone: [phone] Urine leukocyte esterase det ection by dipstickon 08-12-2022 Leukocyte esterase Test strip Ql (U) Negative Negative [facility] Work Phone: [phone] Urine pHon 08-12-2022 pH (U) 6.0 [pH] 5.0 - 8.0 [facility] Work Phone: [phone] Urine sediment bacteria coun t by microscopy (number/high power field)on 08-12-2022 Bacteria LM.HPF (Urine sed) [#/Area] 0 /[HPF] None Seen [facility] Work Phone: Urine specific gravity measu rementon 08-12-2022 Specific gravity (U) [Rel density] 1.020 1.002-1.03 0 [facility] Work Phone: Urobilinogen Auto test strip Ql (U)on 08-12-2022 Urobilinogen Ql (U) Normal mg/dl Normal [facility] Work Phone: Absolute lymphocyte counton 04-16-2022 Lymphocytes Auto (Unsp spec) [#/Vol] 1.66 10*3/uL 0.83-4.51 [facility] Work Phone: Basophil percentageon 2021 Basophils/100 WBC (Bld) 0.5 % 0-1 [facility] Work Phone: Bilirubin [Mass/Vol] 0.70 mg/dL 0.20-1.00 [facility] Work Phone: Comment on above: For patients on eltr ombopag therapy, use of Dimension [place] TBIL is not recommended. Chloride [Moles/Vol] 106 mmol/L 98-107 [facility] Work Phone: Eosinophils/100 WBC (Bld) 1.4 % 0-5 [facility] Work Phone: Glucose [Mass/Vol] 90 mg/dL 74-106 [facility] Work Phone: Neutrophils (Bld) [#/Vol] 3.8 10*3/uL 2.0-7.7 [facility] Work Phone: Neutrophils/100 WBC (Bld) 60.6 % 47-70 [facility] Work Phone: Potassium [Moles/Vol] 4.0 mmol/L 3.5-5.1 [facility] Work Phone: Protein [Mass/Vol] 7.2 g/dL 6.4-8.2 [facility] Work Phone: Sodium [Moles/Vol] 139 mmol/L 136-145 [facility] Work Phone: WBC (Bld) [#/Vol] 6.3 10*3/uL 4.4-11.0 [facility] Work Phone: Blood erythrocytes count (nu mber/volume)on 04-16-2022 RBC (Bld) [#/Vol] 4.82 10*6/uL 4.6-6.2 [facility] Work Phone: Blood hemoglobin measurement (mass/volume)on 04-16-2022 Hemoglobin (Bld) [Mass/Vol] 14.1 g/dL 13.0-16.5 [facility] Work Phone: Blood lymphocytes/100 leukoc yteson 04-16-2022 Lymphocytes/100 WBC (Bld) 26.5 % 19-41 [facility] Work Phone: [phone] Blood monocytes/100 leukocyt eson 04-16-2022 Monocytes/100 WBC (Bld) 10.8 % 0-10 [facility] Work Phone: Blood platelet mean volumeon 04-16-2022 Platelet mean volume (Bld) [Entitic vol] 8.6 fL 6.2-12.0 [facility] Work Phone: Determination of erythrocyte mean corpuscular volume (MCV)on 04-16-2022 MCV (RBC) [Entitic vol] 90.5 fL 80-94 [facility] Work Phone: Direct bilirubinon 2 Bilirubin.direct [Mass/Vol] 0.15 mg/dL 0.00-0.30 [facility] Work Phone: Hematocrit Auto (Bld) [Volum e fraction]on 04-16-2022 Hematocrit (Bld) [Volume fraction] 43.6 % 40-54 [facility] Work Phone: INR in Blood by Coagulation assayon 04-16-2022 INR Coag (Bld) [Relative time] 1.0 {INR} [facility] Work Phone: Laboratory - Chemistry and C hemistry - challengeon 04-16-2022 ALP [Catalytic activity/Vol] 80 U/L 45-117 [facility] Work Phone: ALT [Catalytic activity/Vol] 20 U/L 16-61 [facility] Work Phone: [phone] CO2 [Moles/Vol] 28.0 mmol/L 21.0-32.0 [facility] Work Phone: [phone] Globulin (S) [Mass/Vol] 3.7 g/dL 2.2-4.2 [facility] Work Phone: [phone] Urea nitrogen/Creatinine [Mass ratio] 10.7 mg/mg 10-20 [facility] Work Phone: [phone] Laboratory - Coagulationon 0 04-16-2022 aPTT Coag (Bld) [Time] 26.6 s 24.1-36.2 [facility] Work Phone: [phone] PT Coag (PPP) [Time] 12.7 s 11.7-14.9 [facility] Work Phone: [phone] Laboratory - Hematology and Cell countson 04-16-2022 Erythrocyte distribution width (RBC) [Entitic vol] 46.5 fL 35.1-43.9 [facility] Work Phone: [phone] Erythrocyte distribution width (RBC) [Ratio] 14.0 % 11.6-14.6 [facility] Work Phone: [phone] Immature granulocytes/100 WBC (Bld) 0.200 % 0.0-0.9 [facility] Work Phone: [phone] Comment on above: IG% - Immature Granu locytes (promyelocytes, myelocytes and metamyelocytes) > 1% indicates that a LEFT SHIFT is Present. MCH (RBC) [Entitic mass] 29.3 pg 27.0-32.0 [facility] Work Phone: [phone] Nucleated RBC/100 WBC (Bld) [Ratio] 0 % 0-5 [facility] Work Phone: [phone] MCHC Auto (RBC) [Mass/Vol]on 04-16-2022 MCHC (RBC) [Mass/Vol] 32.3 g/dL 32-36 [facility] Work Phone: [phone] Panel Informationon 04-16 Estimated Creatinine Clearance Calc 59.33 ml/min [facility] Work Phone: Estimated GFR (MDRD) Amer 77 mL/min >60 [facility] Work Phone: Comment on above: GFR Calc Estimated GFR (MDRD) Non-Af Amer 64 mL/min >60 [facility] Work Phone: Comment on above: Non- GFR Calc Platelets bldon 04-16-2022 Platelets (Bld) [#/Vol] 301 10*3/uL 150-450 [facility] Work Phone: Serum or plasma albumin doug urement (mass/volume)on 04-16-2022 Albumin [Mass/Vol] 3.5 g/dL 3.2-5.0 [facility] Work Phone: Serum or plasma calcium doug urement (mass/volume)on 04-16-2022 Calcium [Mass/Vol] 9.2 mg/dL 8.5-10.1 [facility] Work Phone: Serum or plasma creatinine m easurement (mass/volume)on 04-16-2022 Creatinine [Mass/Vol] 1.21 mg/dL 0.70-1.30 [facility] Work Phone: Comment on above: The validity of the calculated GFR & GFRAA in patients over 70 years has not been determined. Clinical correlation is essential. Serum or plasma urea nitroge n measurement (mass/volume)on 04-16-2022 Urea nitrogen [Mass/Vol] 13 mg/dL 7-18 [facility] Work Phone: Thin prep Papanicolaou smear with manual screeningon 04-16-2022 Thin prep Papanicolaou smear with manual screening 11 U/L 15-37 [facility] Work Phone: [phone] Thin prep Papanicolaou smear with manual screening 5 5-15 [facility] Work Phone: Absolute lymphocyte counton 04-14-2022 Lymphocytes Auto (Unsp spec) [#/Vol] 1.56 10*3/uL 0.83-4.51 [facility] Work Phone: Basophil percentageon 2021 Basophils/100 WBC (Bld) 0.5 % 0-1 [facility] Work Phone: Chloride [Moles/Vol] 107 mmol/L 98-107 [facility] Work Phone: Eosinophils/100 WBC (Bld) 1.8 % 0-5 [facility] Work Phone: Glucose [Mass/Vol] 124 mg/dL 74-106 [facility] Work Phone: Comment on above: Fasting Glucose resu lt from 100 to 125 mg/dL suggests IMPAIRED HOMEOSTASIS per A.D.A. criteria. Neutrophils (Bld) [#/Vol] 5.1 10*3/uL 2.0-7.7 [facility] Work Phone: Neutrophils/100 WBC (Bld) 69.5 % 47-70 [facility] Work Phone: Potassium [Moles/Vol] 3.8 mmol/L 3.5-5.1 [facility] Work Phone: Sodium [Moles/Vol] 140 mmol/L 136-145 [facility] Work Phone: WBC (Bld) [#/Vol] 7.4 10*3/uL 4.4-11.0 [facility] Work Phone: Blood erythrocytes count (nu mber/volume)on 04-14-2022 RBC (Bld) [#/Vol] 4.61 10*6/uL 4.6-6.2 [facility] Work Phone: Blood hemoglobin measurement (mass/volume)on 04-14-2022 Hemoglobin (Bld) [Mass/Vol] 13.4 g/dL 13.0-16.5 [facility] Work Phone: Blood lymphocytes/100 leukoc yteson 04-14-2022 Lymphocytes/100 WBC (Bld) 21.1 % 19-41 [facility] Work Phone: Blood monocytes/100 leukocyt eson 04-14-2022 Monocytes/100 WBC (Bld) 7.0 % 0-10 [facility] Work Phone: [phone] Blood platelet mean volumeon 04-14-2022 Platelet mean volume (Bld) [Entitic vol] 8.9 fL 6.2-12.0 [facility] Work Phone: [phone] Determination of erythrocyte mean corpuscular volume (MCV)on 04-14-2022 MCV (RBC) [Entitic vol] 89.6 fL 80-94 [facility] Work Phone: [phone] Hematocrit Auto (Bld) [Volum e fraction]on 04-14-2022 Hematocrit (Bld) [Volume fraction] 41.3 % 40-54 [facility] Work Phone: [phone] Laboratory - Chemistry and C hemistry - challengeon 04-14-2022 CO2 [Moles/Vol] 27.0 mmol/L 21.0-32.0 [facility] Work Phone: Urea nitrogen/Creatinine [Mass ratio] 8.8 mg/mg 10-20 [facility] Work Phone: [phone] Laboratory - Drug toxicology on 04-14-2022 Amphetamines Ql (U) Negative <1000 ng/mL [facility] Work Phone: [phone] Benzodiazepines Ql (U) Negative < 200 ng/mL [facility] Work Phone: [phone] Cannabinoids Screen Ql (U) Positive < 50 ng/mL [facility] Work Phone: [phone] Cocaine Ql (U) Negative < 300 ng/mL [facility] Work Phone: [phone] Opiates Ql (U) Negative < 300 ng/mL [facility] Work Phone: [phone] Laboratory - Hematology and Cell countson 04-14-2022 Erythrocyte distribution width (RBC) [Entitic vol] 46.0 fL 35.1-43.9 [facility] Work Phone: [phone] Erythrocyte distribution width (RBC) [Ratio] 14.2 % 11.6-14.6 [facility] Work Phone: [phone] Immature granulocytes/100 WBC (Bld) 0.100 % 0.0-0.9 [facility] Work Phone: [phone] Comment on above: IG% - Immature Granu locytes (promyelocytes, myelocytes and metamyelocytes) > 1% indicates that a LEFT SHIFT is Present. MCH (RBC) [Entitic mass] 29.1 pg 27.0-32.0 [facility] Work Phone: [phone] Nucleated RBC/100 WBC (Bld) [Ratio] 0 % 0-5 [facility] Work Phone: [phone] MCHC Auto (RBC) [Mass/Vol]on 04-14-2022 MCHC (RBC) [Mass/Vol] 32.4 g/dL 32-36 [facility] Work Phone: [phone] Panel Informationon 04-14 MDMA (Ecstasy) Screen Negative < 500 ng/mL [facility] Work Phone: [phone] Urine Barbiturates Screen Negative < 200 ng/mL [facility] Work Phone: [phone] Urine Drug Screen Comment [facility] Work Phone: [phone] Comment on above: CONFIRMATORY TESTING FOR ALL [...] Urine Methadone Screen Negative < 300 ng/mL [facility] Work Phone: [phone] Estimated Creatinine Clearance Calc 62.98 ml/min [facility] Work Phone: [phone] Estimated GFR (MDRD) Amer 83 mL/min >60 [facility] Work Phone: Comment on above: GFR Calc Estimated GFR (MDRD) Non-Af Amer 68 mL/min >60 [facility] Work Phone: Comment on above: Non- GFR Calc Ethyl Alcohol Level 10.0 mg/dL [facility] Work Phone: Comment on above: The serum:whole bloo d ethanol ratio is approximately 1.14and varies slightly with hematocrit. Medical Alcohol reference interval and critical value innon-tolerant individuals; 50 - 100 Impairment 100 Intoxication 100 - 250 Severe Poisoning 250 - 400 Deep/possible fatal coma Platelets bldon 04-14-2022 Platelets (Bld) [#/Vol] 311 10*3/uL 150-450 [facility] Work Phone: Serum or plasma calcium doug urement (mass/volume)on 04-14-2022 Calcium [Mass/Vol] 9.3 mg/dL 8.5-10.1 [facility] Work Phone: Serum or plasma creatinine m easurement (mass/volume)on 04-14-2022 Creatinine [Mass/Vol] 1.14 mg/dL 0.70-1.30 [facility] Work Phone: Comment on above: The validity of the calculated GFR & GFRAA in patients over 70 years has not been determined. Clinical correlation is essential. Serum or plasma urea nitroge n measurement (mass/volume)on 04-14-2022 Urea nitrogen [Mass/Vol] 10 mg/dL 7-18 [facility] Work Phone: Thin prep Papanicolaou smear with manual screeningon 04-14-2022 Thin prep Papanicolaou smear with manual screening 6 5-15 [facility] Work Phone: Urine phencyclidine (PCP) de tectionon 04-14-2022 Phencyclidine Ql (U) Negative < 25 ng/mL [facility] Work Phone: EMERGENCY REPORTon 2 EMERGENCY REPORT [facility] EMERGENCY ROOM REPORT NAME ACCOUNT SEX AGE ADMIT DISCHARGE PT MED. RECORD# NUMBER DATE DATE TYPE KAMALJIT [id number] M 67 03/26/22 03/26/22 Shukri Miller [id number] ROOM: ER DATE OF : 1955 DICTATING [...] of 2 LIAM MARI Emergency Room Report LIMA MARI : 1955 discharged in stable condition. DIAGNOSES: 1. Fall from 25 feet with multiple contusions. 2. Left hip contusion. 3. Lower lumbar contusion. 4. Left knee contusion. 5. Left leg contusion. Dictated By: Nawaf Toussaint DO 03/26/22 19:14 JOB #: [id number] Transcribed By: jean marie 03/27/22 07:37 Electronically signed by: KRISTIAN Toussaint DO 03/27/22 08:26 Page 2 of 2 LIAM MARI Emergency Room Report Normal [facility] CBC + DIFFon 03-26-2022 Baso # 0.00 x10EE3/UL Normal 0.00 - 0.10 [facility] Comment on above: Performed By: #### 2 [id number] #### [facility],[address] [place] [address] 59473 Basophils/100 WBC (Bld) 0.2 % Normal 0.0 - 2.0 [facility] Comment on above: Performed By: #### 2 54384 #### [facility],[address] [place] [address] 48182 CBC + DIFF Normal [facility] Comment on above: Result Comment: CBC- COMPLETE BLOOD COUNT Performed By: #### 2 76202 #### [facility],[address] [place] [address] 56494 EO # 0.00 x10EE3/UL Normal 0.00 - 0.50 [facility] Comment on above: Performed By: #### 2 59528 #### [facility],[address] [place] [address] 51043 Eosinophils/100 WBC (Bld) 0.2 % Normal 0.0 - 7.0 [facility] Comment on above: Performed By: #### 2 44992 #### [facility],[address] [place] [address] Erythrocyte distribution width (RBC) [Ratio] 14.8 % Normal 12.0 - 15.6 [facility] Comment on above: Performed By: #### 2 66365 #### [facility],[address] [place] [address] Hematocrit (Bld) [Volume fraction] 32.0 % Low 40.0 - 52.0 [facility] Comment on above: Performed By: #### 2 51206 #### [facility],[address] [place] [address] Hemoglobin (Bld) [Mass/Vol] 10.7 g/dL Low 13.0 - 17.5 [facility] Comment on above: Performed By: #### 2 84165 #### [facility],[address] [place] [address] Lymph # 0.60 x10EE3/UL Low 0.80 - 2.80 [facility] Comment on above: Performed By: #### 2 98968 #### [facility],[address] [place] [address] Lymphocytes/100 WBC (Bld) 8.1 % Low 20.0 - 45.0 [facility] Comment on above: Performed By: #### 2 97756 #### [facility],[address] [place], [place] [id number] MANUAL DIFF N/A Normal [facility] Comment on above: Performed By: #### 2 39249 #### [facility],[address] [place], [place] [id number] MCH (RBC) [Entitic mass] 30 pg Normal 27 - 33 [facility] Comment on above: Performed By: #### 2 57740 #### [facility],[address] [place] [address] MCHC 33 X10 3 Normal 32 - 36 [facility] Comment on above: Performed By: #### 2 43255 #### [facility],[address] [place] [address] MCV (RBC) [Entitic vol] 89 fL Normal 81 - 98 [facility] Comment on above: Performed By: #### 2 99718 #### [facility],[address] [place] [address] Carson # 0.20 x10EE3/UL Normal 0.20 - 1.00 [facility] Comment on above: Performed By: #### 2 14166 #### [facility],[address] [place] [address] MONOS % 3.3 % Normal 0.0 - 10.0 [facility] Comment on above: Performed By: #### 2 91275 #### [facility],[address] [place] [address] Morphology Siva (Bld) [Interp] N/A Normal [facility] Comment on above: Result Comment: {CD] Performed By: #### 2 53205 #### [facility],[address] [place] [address] Neut # 6.50 x10EE3/UL Normal 1.50 - 7.10 [facility] Comment on above: Performed By: #### 2 15546 #### [facility],[address] [place], [place] [id number] Neutrophils/100 WBC (Bld) 88.2 % High 46.0 - 76.0 [facility] Comment on above: Performed By: #### 2 42605 #### [place] [id number] PLATELET 250 x10EE3/UL Normal 150 - 450 [facility] Comment on above: Performed By: #### 2 29907 #### [facility],[address] [place] [address] Platelet mean volume (Bld) [Entitic vol] 6.9 fL Normal 6.4 - 10.5 [facility] Comment on above: Result Comment: AUTO MATED DIFFERENTIAL Performed By: #### 2 64908 #### [facility],[address] [place] [address] 90152 RBC 3.61 x 10EE6/UL Low 4.50 - 6.00 [facility] Comment on above: Performed By: #### 2 10227 #### [facility],[address] [place] [address] 79485 WBC 7.3 x 10EE3/UL Normal 4.5 - 10.8 [facility] Comment on above: Performed By: #### 2 28786 #### [facility],[address] [place] [address] 39979 CMP with eGFRon 03-26-2022 AGE 67 years Normal [facility] Comment on above: Performed By: #### 2 77926 #### [facility],[address] [place] [address] 95283 Albumin [Mass/Vol] 3.2 g/dL Low 3.4 - 5.0 [facility] Comment on above: Performed By: #### 2 78229 #### [facility],[address] [place] [address] 24444 Albumin/Globulin [Mass ratio] 1.0 {ratio} Normal 0.9 - 1.6 [facility] Comment on above: Performed By: #### 2 53708 #### [facility],[address] [place] [address] 33642 ALK PHOS 75 U/L Normal 46 - 116 [facility] Comment on above: Performed By: #### 2 25125 #### [facility],[address] [place] [address] 28781 ALT [Catalytic activity/Vol] 24 U/L Normal 16 - 63 [facility] Comment on above: Performed By: #### 2 89228 #### [facility],[address] [place] [address] 92630 Anion gap [Moles/Vol] 12 mmol/L Normal 10 - 20 [facility] Comment on above: Performed By: #### 2 98860 #### [facility],[address] [place] [address] 23108 AST [Catalytic activity/Vol] 11 U/L Low 15 - 37 [facility] Comment on above: Performed By: #### 2 66083 #### [facility],[address] [place] [address] 78990 B/C RATIO 15 ratio Normal 0 - 30 [facility] Comment on above: Performed By: #### 2 38468 #### [facility],[address] [place] [address] 69956 Bilirubin [Mass/Vol] 0.5 mg/dL Normal 0.2 - 1.0 [facility] Comment on above: Performed By: #### 2 16280 #### [facility],[address] [place] [address] 98456 Calcium [Mass/Vol] 8.5 mg/dL Normal 8.5 - 10.1 [facility] Comment on above: Performed By: #### 2 14688 #### [facility],[address] [place] [address] 14648 Chloride [Moles/Vol] 104 mmol/L Normal 98 - 107 [facility] Comment on above: Performed By: #### 2 79532 #### [facility],[address] [place] [address] 57136 CMP with eGFR Normal [facility] Comment on above: Result Comment: COMP REHENSIVE METABOLIC PANEL Performed By: #### 2 58971 #### [facility],[address] [place] [address] 32776 CO2 [Moles/Vol] 27.2 mmol/L Normal 21.0 - 32.0 [facility] Comment on above: Performed By: #### 2 82661 #### [facility],[address] [place] [address] 23165 Creatinine [Mass/Vol] 1.07 mg/dL Normal 0.70 - 1.30 [facility] Comment on above: Performed By: #### 2 42623 #### [facility],[address] [place] [address] 40500 GFR/1.73 sq M.predicted among non-blacks MDRD (S/P/Bld) [Vol rate/Area] mL/min/{1.73_m2} Normal 60 - 999 [facility] Comment on above: Performed By: #### 2 29694 #### [facility],[address] [place] [address] Result Comment: ACCO RDING TO THE NATIONAL KIDNEY DISEASE EDUCATION PROGRAM(NKDE), A NORMAL eGFR IS A VALUE GREATER THAN OR EQUAL TO 60 ML/MIN/1.73 SQ METERS. CHRONIC KIDNEY DISEASE: <60mL/MIN/1.73 SQ METERS KIDNEY FAILURE: <15mL/MIN/1.73 SQ METERS THIS TEST SHOULD ONLY BE USED FOR PATIENTS 18 YEARS OF AGE AND OLDER. Globulin (S) [Mass/Vol] 3.3 g/dL Normal 1.5 - 3.8 [facility] Comment on above: Performed By: #### 2 57097 #### [facility],[address] [place] [address] 93019 Glucose [Mass/Vol] 115 mg/dL High 74 - 106 [facility] Comment on above: Performed By: #### 2 63691 #### [facility],[address] [place] [address] 02683 Potassium [Moles/Vol] 4.1 mmol/L Normal 3.5 - 5.1 [facility] Comment on above: Performed By: #### 2 82902 #### [facility],[address] [place] [address] 91035 Protein [Mass/Vol] 6.5 g/dL Normal 6.4 - 8.2 [facility] Comment on above: Performed By: #### 2 13536 #### [facility],[address] [place] [address] 45873 Sodium [Moles/Vol] 139 mmol/L Normal 136 - 145 [facility] Comment on above: Performed By: #### 2 24757 #### [facility],[address] [place] [address] 79146 Urea nitrogen [Mass/Vol] 16 mg/dL Normal 7 - 18 [facility] Comment on above: Performed By: #### 2 92593 #### [facility],[address] [place] [address] BRAIN W/O CONTRASTon 06-0 CT BRAIN W/O CONTRAST [place] [address] Patient: LIAM MARI Phone#: : 1955 Age: 67 Gender: M Pt. Type: ER Account: [id number] Location: [facility] Ordering: NAWAF TOUSSAINT Exam Date: 03/26/2022/13:47 Family Phys: Charge Code: 865759 Physician: Early Order #: [id number] DLP Dose#: 52.30 PROCEDURE: CT BRAIN WITHOUT [...] Casanova MD on 03/26/2022 at 18:36 Normal [facility] CT CERVICAL W/O CONTRASTon 0 03-26-2022 CT CERVICAL W/O CONTRAST [place] [address] Patient: LIAM MARI Phone#: : 1955 Age: 67 Gender: M Pt. Type: ER Account: [id number] Location: 2 Ordering: NAWAF TOUSSAINT Exam Date: 03/26/2022/13:47 Family Phys: Charge Code: [id number] Physician: Early Order #: [id number] DLP Dose#: 12.40 PROCEDURE: CT CERVICAL WITHOUT [...] 67 Gender: M Pt. Type: ER Account: [id number] Location: 052 Ordering: NAWAF AUSTINER Exam Date: 03/26/2022/13:47 Family Phys: Charge Code: [id number] Physician: Early Order #: [id number] DLP Dose#: 12.40 2. There is no evidence of acute fracture or subluxation. Dictated by: Albertina Casanova MD on 03/26/2022 at 18:33 Approved by: Albertina Casanova MD on 03/26/2022 at 18:35 Normal [facility] CT CHEST/ABD/PELVIS C+on CT CHEST/ABD/PELVIS C+ [place] [address] Patient: LIAM MARI Phone#: : 1955 Age: 67 Gender: M Pt. Type: ER Account: [id number] Location: 052 Ordering: NAWAF TOUSSAINT Exam Date: 03/26/202213:51 Family Phys: Charge Code: 077890 Physician: Early Order #: [id number] DLP Dose#: 16.70 PROCEDURE: CT CHEST/ABD/PELVIS W [...] 67 Gender: M Pt. Type: ER Account: [id number] Location: 052 Ordering: NAWAF TOUSSAINT Exam Date: 03/26/2022/13:51 Family Phys: Charge Code: [id number] Physician: Early Order #: [id number] DLP Dose#: 16.70 RETROPERITONEUM: Normal. No mass [...] Casanova MD on 03/26/2022 at 18:41 Normal [facility] KNEE COMPLETE LT MIN 4 VIEWS on 03-26-2022 KNEE COMPLETE LT MIN 4 VIEWS [place] [address] Patient: LIAM MARI Phone#: : [phone] Age: 67 Gender: M Pt. Type: ER Account: [id number] Location: 052 Ordering: NAWAF TOUSSAINT Exam Date: 03/26/2022/17:06 Family Phys: EUGENIO MAYEN Charge Code: 024392 Physician: Early Order #: [id number] DLP Dose#: PROCEDURE: X-RAY KNEE LT COMPLETE 4 VIEWS COMPARISON: [facility], XR, KNEE COMPLETE LT MIN 4 VIEWS, 04/21/2018, 14:08. INDICATIONS: Trauma. FINDINGS: BONES: Normal. No significant arthropathy or acute abnormality. SOFT TISSUES: Negative. No visible soft tissue swelling. EFFUSION: None visible. OTHER: Negative. CONCLUSION: No acute disease. Dictated by: Albertina Casanova MD on 03/26/2022 at 18:07 Approved by: Albertina Casanova MD on 03/26/2022 at 18:08 Normal [facility] No Panel Informationon 03-08 Culture Urine No growth at 48 hours. [facility] Work Phone: Absolute lymphocyte counton 01-12-2022 Lymphocytes Auto (Unsp spec) [#/Vol] 1.45 10*3/uL 0.83-4.51 [facility] Work Phone: Amorphous sediment detection in urine sediment by light microscopyon 01-12-2022 Amorphous sediment LM Ql (Urine sed) 1+ URATE [facility] Work Phone: Basophil percentageon 2021 Basophil percentage 10-25 SEEN /hpf 0-5 [facility] Work Phone: Basophils/100 WBC (Bld) 1.0 % 0-1 [facility] Work Phone: Chloride [Moles/Vol] 104 mmol/L 98-107 [facility] Work Phone: Eosinophils/100 WBC (Bld) 1.9 % 0-5 [facility] Work Phone: Glucose [Mass/Vol] 104 mg/dL 74-106 [facility] Work Phone: Comment on above: Fasting Glucose resu lt from 100 to 125 mg/dL suggests IMPAIRED HOMEOSTASIS per A.D.A. criteria. Neutrophils (Bld) [#/Vol] 3.9 10*3/uL 2.0-7.7 [facility] Work Phone: Neutrophils/100 WBC (Bld) 62.7 % 47-70 [facility] Work Phone: Potassium [Moles/Vol] 3.4 mmol/L 3.5-5.1 [facility] Work Phone: Sodium [Moles/Vol] 138 mmol/L 136-145 [facility] Work Phone: WBC (Bld) [#/Vol] 6.2 10*3/uL 4.4-11.0 [facility] Work Phone: Bilirubin Test strip Ql (U)o n 01-12-2022 Bilirubin Ql (U) Negative Negative [facility] Work Phone: Blood erythrocytes count (nu mber/volume)on 01-12-2022 RBC (Bld) [#/Vol] 4.79 10*6/uL 4.6-6.2 [facility] Work Phone: Blood hemoglobin measurement (mass/volume)on 01-12-2022 Hemoglobin (Bld) [Mass/Vol] 14.6 g/dL 13.0-16.5 [facility] Work Phone: Blood lymphocytes/100 leukoc yteson 01-12-2022 Lymphocytes/100 WBC (Bld) 23.5 % 19-41 [facility] Work Phone: Blood monocytes/100 leukocyt eson 01-12-2022 Monocytes/100 WBC (Bld) 10.7 % 0-10 [facility] Work Phone: Blood platelet mean volumeon 01-12-2022 Platelet mean volume (Bld) [Entitic vol] 8.8 fL 6.2-12.0 [facility] Work Phone: Culture, urineon 01-12-2022 Bacteria identified Cx Nom (U) Culture exhibits no growth. [facility] Work Phone: Determination of erythrocyte mean corpuscular volume (MCV)on 01-12-2022 MCV (RBC) [Entitic vol] 88.9 fL 80-94 [facility] Work Phone: [phone] Hematocrit Auto (Bld) [Volum e fraction]on 01-12-2022 Hematocrit (Bld) [Volume fraction] 42.6 % 40-54 [facility] Work Phone: [phone] Ketones Test strip Ql (U)on 01-12-2022 Ketones Ql (U) Negative Negative [facility] Work Phone: [phone] Laboratory - Chemistry and C hemistry - challengeon 01-12-2022 CO2 [Moles/Vol] 30.0 mmol/L 21.0-32.0 [facility] Work Phone: [phone] Urea nitrogen/Creatinine [Mass ratio] 11.6 mg/mg 10-20 [facility] Work Phone: [phone] Laboratory - Hematology and Cell countson 01-12-2022 Erythrocyte distribution width (RBC) [Entitic vol] 42.7 fL 35.1-43.9 [facility] Work Phone: [phone] Erythrocyte distribution width (RBC) [Ratio] 13.1 % 11.6-14.6 [facility] Work Phone: [phone] Immature granulocytes/100 WBC (Bld) 0.200 % 0.0-0.9 [facility] Work Phone: [phone] Comment on above: IG% - Immature Granu locytes (promyelocytes, myelocytes and metamyelocytes) > 1% indicates that a LEFT SHIFT is Present. MCH (RBC) [Entitic mass] 30.5 pg 27.0-32.0 [facility] Work Phone: [phone] Nucleated RBC/100 WBC (Bld) [Ratio] 0 % 0-5 [facility] Work Phone: [phone] MCHC Auto (RBC) [Mass/Vol]on 01-12-2022 MCHC (RBC) [Mass/Vol] 34.3 g/dL 32-36 [facility] Work Phone: [phone] Mucus LM Ql (Urine sed)on Mucus Ql (Urine sed) 0 SEEN /hpf [facility] Work Phone: [phone] Nitrite Test strip Ql (U)on 01-12-2022 Nitrite Ql (U) Negative Negative [facility] Work Phone: No Panel Informationon 01-12 Estimated Creatinine Clearance Calc 56.41 ml/min [facility] Work Phone: [phone] Estimated GFR (MDRD) Amer 72 mL/min >60 [facility] Work Phone: Comment on above: GFR Calc Estimated GFR (MDRD) Non-Af Amer 59 mL/min >60 [facility] Work Phone: Comment on above: Non- GFR Calc Platelets bldon 01-12-2022 Platelets (Bld) [#/Vol] 374 10*3/uL 150-450 [facility] Work Phone: Protein Test strip Ql (U)on 01-12-2022 Protein Ql (U) 15 mg/dl Negative [facility] Work Phone: [phone] Serum or plasma calcium doug urement (mass/volume)on 01-12-2022 Calcium [Mass/Vol] 9.4 mg/dL 8.5-10.1 [facility] Work Phone: [phone] Serum or plasma creatinine m easurement (mass/volume)on 01-12-2022 Creatinine [Mass/Vol] 1.29 mg/dL 0.70-1.30 [facility] Work Phone: Comment on above: The validity of the calculated GFR & GFRAA in patients over 70 years has not been determined. Clinical correlation is essential. Serum or plasma urea nitroge n measurement (mass/volume)on 01-12-2022 Urea nitrogen [Mass/Vol] 15 mg/dL 7-18 [facility] Work Phone: [phone] Squamous epithelial cells de tection in urine sediment by light microscopyon 01-12-2022 Epithelial cells.squamous LM Ql (Urine sed) 0-5 SEEN /hpf 0-5 [facility] Work Phone: Thin prep Papanicolaou smear with manual screeningon 01-12-2022 Thin prep Papanicolaou smear with manual screening 4 5-15 [facility] Work Phone: Urine blood detectionon 12-21 RBC Ql (U) 50 /ul Negative [facility] Work Phone: RBC Ql (U) 0-5 SEEN /hpf 0-5 [facility] Work Phone: Urine clarityon 01-12-2022 Clarity (U) Sl Cldy Clear [facility] Work Phone: Comment on above: Previous reported re sult: Clear Edited by: ROSAURA on 01/12/22:1822 Urine color determinationon 01-12-2022 Color (U) Yellow Yellow [facility] Work Phone: Urine glucose detectionon Glucose Ql (U) Normal mg/dl Normal [facility] Work Phone: Urine leukocyte esterase det ection by dipstickon 01-12-2022 Leukocyte esterase Test strip Ql (U) 500 /ul Negative [facility] Work Phone: Urine pHon 01-12-2022 pH (U) 7.0 [pH] 5.0 - 8.0 [facility] Work Phone: Urine sediment bacteria coun t by microscopy (number/high power field)on 01-12-2022 Bacteria LM.HPF (Urine sed) [#/Area] 0 /[HPF] None Seen [facility] Work Phone: Urine specific gravity measu rementon 01-12-2022 Specific gravity (U) [Rel density] 1.010 1.002-1.03 0 [facility] Work Phone: Urobilinogen Auto test strip Ql (U)on 01-12-2022 Urobilinogen Ql (U) 1 mg/dl Normal [facility] Work Phone: Absolute lymphocyte counton 12-04-2021 Lymphocytes Auto (Unsp spec) [#/Vol] 1.43 10*3/uL 0.83-4.51 [facility] Work Phone: Basophil percentageon 2021 Basophils/100 WBC (Bld) 0.6 % 0-1 [facility] Work Phone: Chloride [Moles/Vol] 107 mmol/L 98-107 [facility] Work Phone: Eosinophils/100 WBC (Bld) 2.4 % 0-5 [facility] Work Phone: Glucose [Mass/Vol] 107 mg/dL 74-106 [facility] Work Phone: Comment on above: Fasting Glucose resu lt from 100 to 125 mg/dL suggests IMPAIRED HOMEOSTASIS per A.D.A. criteria. Neutrophils (Bld) [#/Vol] 4.5 10*3/uL 2.0-7.7 [facility] Work Phone: Neutrophils/100 WBC (Bld) 67.7 % 47-70 [facility] Work Phone: Potassium [Moles/Vol] 3.9 mmol/L 3.5-5.1 [facility] Work Phone: Sodium [Moles/Vol] 138 mmol/L 136-145 [facility] Work Phone: WBC (Bld) [#/Vol] 6.7 10*3/uL 4.4-11.0 [facility] Work Phone: Blood erythrocytes count (nu mber/volume)on 12-04-2021 RBC (Bld) [#/Vol] 4.71 10*6/uL 4.6-6.2 [facility] Work Phone: Blood hemoglobin measurement (mass/volume)on 12-04-2021 Hemoglobin (Bld) [Mass/Vol] 14.4 g/dL 13.0-16.5 [facility] Work Phone: Blood lymphocytes/100 leukoc yteson 12-04-2021 Lymphocytes/100 WBC (Bld) 21.4 % 19-41 [facility] Work Phone: Blood monocytes/100 leukocyt eson 12-04-2021 Monocytes/100 WBC (Bld) 7.5 % 0-10 [facility] Work Phone: Blood platelet mean volumeon 12-04-2021 Platelet mean volume (Bld) [Entitic vol] 8.3 fL 6.2-12.0 [facility] Work Phone: [phone] Determination of erythrocyte mean corpuscular volume (MCV)on 12-04-2021 MCV (RBC) [Entitic vol] 90.2 fL 80-94 [facility] Work Phone: [phone] Hematocrit Auto (Bld) [Volum e fraction]on 12-04-2021 Hematocrit (Bld) [Volume fraction] 42.5 % 40-54 [facility] Work Phone: Laboratory - Chemistry and C hemistry - challengeon 12-04-2021 CO2 [Moles/Vol] 27.0 mmol/L 21.0-32.0 [facility] Work Phone: Urea nitrogen/Creatinine [Mass ratio] 15.7 mg/mg 10-20 [facility] Work Phone: Laboratory - Hematology and Cell countson 12-04-2021 Erythrocyte distribution width (RBC) [Entitic vol] 44.6 fL 35.1-43.9 [facility] Work Phone: [phone] Erythrocyte distribution width (RBC) [Ratio] 13.4 % 11.6-14.6 [facility] Work Phone: [phone] Immature granulocytes/100 WBC (Bld) 0.400 % 0.0-0.9 [facility] Work Phone: [phone] Comment on above: IG% - Immature Granu locytes (promyelocytes, myelocytes and metamyelocytes) > 1% indicates that a LEFT SHIFT is Present. MCH (RBC) [Entitic mass] 30.6 pg 27.0-32.0 [facility] Work Phone: Nucleated RBC/100 WBC (Bld) [Ratio] 0 % 0-5 [facility] Work Phone: MCHC Auto (RBC) [Mass/Vol]on 12-04-2021 MCHC (RBC) [Mass/Vol] 33.9 g/dL 32-36 [facility] Work Phone: No Panel Informationon 12-04 Estimated Creatinine Clearance Calc 67.93 ml/min [facility] Work Phone: Estimated GFR (MDRD) Amer 82 mL/min >60 [facility] Work Phone: [phone] Comment on above: GFR Calc Estimated GFR (MDRD) Non-Af Amer 68 mL/min >60 [facility] Work Phone: Comment on above: Non- GFR Calc Platelets bldon 12-04-2021 Platelets (Bld) [#/Vol] 477 10*3/uL 150-450 [facility] Work Phone: Serum or plasma calcium doug urement (mass/volume)on 12-04-2021 Calcium [Mass/Vol] 8.7 mg/dL 8.5-10.1 [facility] Work Phone: Serum or plasma creatinine m easurement (mass/volume)on 12-04-2021 Creatinine [Mass/Vol] 1.15 mg/dL 0.70-1.30 [facility] Work Phone: Comment on above: The validity of the calculated GFR & GFRAA in patients over 70 years has not been determined. Clinical correlation is essential. 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) Heartburn (787.1) (R12) Weight loss (783.21) (R63.4) Orders Abnormality of pancreatic duct, Weight loss MRI Pancreas w/wo Contrast; Status:Hold For - Scheduling; Requested for:12Jan2021; Perform:[facility]; Due:12Apr2021;Ordered; For:Abnormality of pancreatic duct, Weight loss; Ordered By:Connie East; Radiologist to Determine Optimal Study : Y Does the patient have a Cochlear Implant, Pacemaker, Defibrilator, Pacing Wire, Brain Aneurysm Clip, Implanted Nerve or Bone Graft Simulator, Implanted Breast Tissue Anesthesia Tech, Glucose Monitor, or Neulasta Device? : No What are the patient's signs and symptoms? : Prominent pancreat duct 4 mm Heartburn Start: Omeprazole 20 MG Oral Tablet Delayed Release; TAKE 1 TABLET Daily 30 minutes before breakfast Rx By: Connie East; Dispense: 30 Days ; #:30 Tablet; Refill: 3;For: Heartburn; DAVID = N; Verified Transmission to [facility]; Last Updated By: [employer]; 01/12/2021 12:20:01 PM Patient Discussion/Summary 1. Outside [...] Complaint Abnormal CT scan History of Present Mizprip11-[id number]-srt male presents today referred by Brian Rooney regarding an abnormal pancreatic duct finding on recent CT scan. Patient had presented to [facility] emergency room on 12/22/2020 for left [...] He has no dysphagia or odynophagia. Uses xdhl-ure-cjujqbj Tums with short-term relief. He has never [...] Tablet Vitals Vital Signs Recorded: 12Jan2021 11:32AM Hvckclpxeao26.7 F Heart Rate63 Height6 ft 1 in Jxwfqj873 lb 6 oz BMI Qnbbxguvoz25.82 BSA Calculated1.98 O2 Qmkxigeprw19 Physical Exam Const: Vital signs reviewed. ENMT: [...] right side while sitting and moving. Results/Data [facility] ED 12/22/2020: Sigmoid diverticulosis without diverticulitis, [...] Jan 12 2021 12:33PM EST (Author) Normal [facility] CR Humerus 2+ Views Lefton 0 06-26-2020 CR Humerus 2+ Views Left Patient Name: WINSTON MARI Diagnostic Radiology Exam Date/Time 06/26/2020 18:22:17 EDT Exam CR Humerus 2+ Views Left Ordering Physician MD LEONG JESSE Accession Number [id number] CPT4 Codes 48873 () Reason For Exam Injury Report EXAM: [...] R Transcribed Date and Time: 06/26/2020 6:35 Normal [facility] CR Shoulder 2+ Views Lefton 06-26-2020 CR Shoulder 2+ Views Left Patient Name: WINSTON MARI Diagnostic Radiology Exam Date/Time 06/26/2020 18:22:17 EDT Exam CR Shoulder 2+ Views Left Ordering Physician MD LEONG JESSE Accession Number [id number] CPT4 Codes 42171 () Reason For Exam Injury Report EXAM: [...] R Transcribed Date and Time: 06/26/2020 6:31 [facility] CR Spine Lumbosacral 2 or 3 Viewson 06-26-2020 CR Spine Lumbosacral 2 or 3 Views Patient Name: WINSTON MARI Diagnostic Radiology Exam Date/Time 06/26/2020 18:22:17 EDT Exam CR Spine Lumbosacral 2 or 3 Views Ordering Physician MD LEONG JESSE Accession Number [id number] CPT4 Codes 57942 () Reason For Exam Injury Report EXAM: [...] R Transcribed Date and Time: 06/26/2020 6:36 [facility] CR Wrist Complete 3 Views Le fton 06-26-2020 CR Wrist Complete 3 Views Left Patient Name: WINSTON MARI Diagnostic Radiology Exam Date/Time 06/26/2020 18:22:17 EDT Exam CR Wrist Complete 3 Views Left Ordering Physician MD LEONG JESSE Accession Number [id number] CPT4 Codes 94133 () Reason For Exam Injury Report EXAM: [...] Transcribed Date and Time: 06/26/2020 6:38 Normal [facility] XR HUMERUS LEFT (MIN 2 VIEWS )on 06-26-2020 Patient Name: WINSTON MARI ---Diagnostic Radiology--- Exam Date/Time 06/26/2020 18:22:17 EDT Exam CR Humerus 2+ Views Left Ordering Physician MD LEONG JESSE Accession Number [id number] CPT4 Codes 17099 () Reason For Exam Injury Report EXAM: [...] R Transcribed Date and Time: 06/26/2020 6:35 [facility] [place] [place] [facility], [facility] Incoming Radiology Results From [facility] - 06/26/2020 6:35 PM EDT Patient Name: WINSTON MARI ---Diagnostic Radiology--- Exam Date/Time 06/26/2020 18:22:17 EDT Exam CR Humerus 2+ Views Left Ordering Physician MD LEONG JESSE Accession Number [id number] CPT4 Codes 42292 () Reason For Exam Injury Report EXAM: [...] R Transcribed Date and Time: 06/26/2020 6:35 [place], [place] XR LUMBAR SPINE (2-3 VIEWS)o n 06-26-2020 Patient Name: WINSTON MARI ---Diagnostic Radiology--- Exam Date/Time 06/26/2020 18:22:17 EDT Exam CR Spine Lumbosacral 2 or 3 Views Ordering Physician MD LEONG JESSE Accession Number [id number] CPT4 Codes 37307 () Reason For Exam Injury Report EXAM: [...] R Transcribed Date and Time: 06/26/2020 6:36 [place], [place] [facility], [facility] Incoming Radiology Results From [facility] - 06/26/2020 6:37 PM EDT Patient Name: WINSTON MARI ---Diagnostic Radiology--- Exam Date/Time 06/26/2020 18:22:17 EDT Exam CR Spine Lumbosacral 2 or 3 Views Ordering Physician MD LEONG JESSE Accession Number [id number] CPT4 Codes 74363 () Reason For Exam Injury Report EXAM: [...] R Transcribed Date and Time: 06/26/2020 6:36 [facility] XR Shoulder Left 2 VWon Patient Name: WINSTON MARI ---Diagnostic Radiology--- Exam Date/Time 06/26/2020 18:22:17 EDT Exam CR Shoulder 2+ Views Left Ordering Physician MD LEONG JESSE Accession Number [id number] CPT4 Codes 95425 () Reason For Exam Injury Report EXAM: [...] R Transcribed Date and Time: 06/26/2020 6:31 [facility] Rad[facility] Results From [facility] - 06/26/2020 6:32 PM EDT Patient Name: WINSTON MARI ---Diagnostic Radiology--- Exam Date/Time 06/26/2020 18:22:17 EDT Exam CR Shoulder 2+ Views Left Ordering Physician MD LEONG JESSE Accession Number [id number] CPT4 Codes 43203 () Reason For Exam Injury Report EXAM: [...] R Transcribed Date and Time: 06/26/2020 6:31 [place], [place] XR WRIST LEFT 3 VWon 020 Patient Name: WINSTON MARI ---Diagnostic Radiology--- Exam Date/Time 06/26/2020 18:22:17 EDT Exam CR Wrist Complete 3 Views Left Ordering Physician MD LEONG JESSE Accession Number [id number] CPT4 Codes 35814 () Reason For Exam Injury Report EXAM: [...] R Transcribed Date and Time: 06/26/2020 6:38 [place], [place] [facility], [facility] Incoming Radiology Results From [facility] - 06/26/2020 6:39 PM EDT Patient Name: WINSTON MARI ---Diagnostic Radiology--- Exam Date/Time 06/26/2020 18:22:17 EDT Exam CR Wrist Complete 3 Views Left Ordering Physician MD LEONG JESSE Accession Number [id number] CPT4 Codes 12861 () Reason For Exam Injury Report EXAM: [...] R Transcribed Date and Time: 06/26/2020 6:38 [place], [place] CT BRAIN WO IVCONon 11-03-19 CT BRAIN WO IVCON * * *Final Report* * * DATE OF EXAM: Nov 03 2019 4:30PM [facility] 0504 - CT BRAIN WO IVCON / [...] acute intracranial findings. Chronic changes as described Building Construction Foreman: CHRISTIN Transcribe Date/Time: Nov 03 2019 4:35P Dictated by : MAXI BALES MD This examination was interpreted and the report reviewed and electronically signed by: MAXI BALES MD on Nov 03 2019 4:38PM EST Normal [facility] CT CERVICAL SPINE WO IVCONon 11-03-2019 CT CERVICAL SPINE WO IVCON * * *Final Report* * * DATE OF EXAM: Nov 03 2019 5:08PM [facility] 0505 - CT CERVICAL SPINE WO IVCON [...] vertebrae with counting from the craniocervical junction. Building Construction Foreman: CHRISTIN Transcribe Date/Time: Nov 03 2019 5:17P Dictated by : TIMUR CHAPA MD This examination was interpreted and the report reviewed and electronically signed by: TIMUR CHAPA MD on Nov 03 2019 5:25PM EST Normal [facility] CT LUMBAR SPINE WO IVCONon 0 11-03-2019 CT LUMBAR SPINE WO IVCON * * *Final Report* * * DATE OF EXAM: Nov 03 2019 4:43PM [facility] 0508 - CT LUMBAR SPINE WO IVCON [...] and assume there are 5 lumbar-type vertebrae. Building Construction Foreman: PSCB Transcribe Date/Time: Nov 03 2019 5:06P Dictated by : TIMUR CHAPA MD This examination was interpreted and the report reviewed and electronically signed by: TIMUR CHAPA MD on Nov 03 2019 5:14PM EST Normal [facility] CT THORACIC SPINE WO IVCONon 11-03-2019 CT THORACIC SPINE WO IVCON * * *Final Report* * * DATE OF EXAM: Nov 03 2019 4:44PM [facility] 0514 - CT THORACIC SPINE WO IVCON [...] months from the initial exam) is recommended. Building Construction Foreman: PSCB Transcribe Date/Time: Nov 03 2019 5:25P Dictated by : TIMUR CHAPA MD This examination was interpreted and the report reviewed and electronically signed by: TIMUR CHAPA MD on Nov 03 2019 5:37PM EST ACTIONABLE Normal [facility] Comprehensive Panelon 2019 Anion gap [Moles/Vol] 13 mmol/L Normal 8-20 [facility] Comment on above: Performed By: #### L P14 #### [address] [address] Chloride [Moles/Vol] 103 mmol/L Normal 98-109 [facility] Comment on above: Result Comment: Test ing performed on an Munoz i-STAT. Performed By: #### L P14 #### [address] [address] Potassium [Moles/Vol] 3.9 mmol/L Normal 3.5-4.9 [facility] Comment on above: Result Comment: Test ing performed on an Munoz i-STAT. Performed By: #### L P14 #### [address] [address] Sodium [Moles/Vol] 139 mmol/L Normal 138-146 [facility] Comment on above: Result Comment: Test ing performed on an Munoz i-STAT. Performed By: #### L P14 #### [address] [address] Albumin [Mass/Vol] 3.9 g/dL Normal 3.4-5.0 [facility] Comment on above: Performed By: #### L P14 #### [address] [address] ALP [Catalytic activity/Vol] 89 U/L Normal 46-116 [facility] Comment on above: Performed By: #### L P14 #### [address] [address] ALT-SGPT Blood 33 U/L Normal 14-63 [facility] Comment on above: Performed By: #### L P14 #### [address], [place] [address] AST-SGOT Blood 19 U/L Normal 15-37 [facility] Comment on above: Performed By: #### L P14 #### [facility] [address] [place], [place] [address] Bilirubin Ql (U) 0.7 mg/dL Normal 0.2-1.0 [facility] Comment on above: Performed By: #### L P14 #### [facility] [address] [place], [place] [address] Calcium [Mass/Vol] 9.3 mg/dL Normal 8.5-10.1 [facility] Comment on above: Performed By: #### L P14 #### [facility] [address] [place] [address] CO2 Blood 27 mEq/L Normal 21-32 [facility] Comment on above: Performed By: #### L P14 #### [place] [address] Creatinine [Mass/Vol] 1.03 mg/dL Normal 0.67-1.17 [facility] Comment on above: Performed By: #### L P14 #### [place] [address] Glucose [Mass/Vol] 101 mg/dL High 70-99 [facility] Comment on above: Performed By: #### L P14 #### [address] [address] Protein [Mass/Vol] 7.9 g/dL Normal 6.4-8.2 [facility] Comment on above: Performed By: #### L P14 #### [facility] [address] [place], [place] [address] Urea nitrogen [Mass/Vol] 14 mg/dL Normal 7-18 [facility] Comment on above: Performed By: #### L P14 #### [facility] [address] [place] [address] Urea nitrogen/Creatinine [Mass ratio] 14 mg/mg Normal 10-20 [facility] Comment on above: Performed By: #### L P14 #### [place] [address] Hemogram/Diffon 11-03-2019 Abs. Baso 0.03 thou/cmm Normal 0.00-0.08 [facility] Comment on above: Performed By: #### L CBCD #### [facility] [address] [place] [address] Abs. [place] 0.80 thou/cmm Normal 0.20-1.00 [facility] Comment on above: Performed By: #### L CBCD #### [facility] [address] [place] [address] Abs. Neut (ANC) 4.63 thou/cmm Normal 3.00-5.67 [facility] Comment on above: Performed By: #### L CBCD #### [place] [address] Basophils/100 WBC (Bld) 0.4 % Normal [facility] Comment on above: Performed By: #### L CBCD #### [place] [address] Eosinophils (Bld) [#/Vol] 0.22 thou/cmm Normal 0.00-0.41 [facility] Comment on above: Performed By: #### L CBCD #### [place] [address] Eosinophils/100 WBC (Bld) 2.8 % Normal [facility] Comment on above: Performed By: #### L CBCD #### [place] [address] Erythrocyte distribution width (RBC) [Ratio] 12.9 % Normal 11.5-15.9 [facility] Comment on above: Performed By: #### L CBCD #### [place] [address] Hematocrit (Bld) [Volume fraction] 43.6 % Normal 42.0-52.0 [facility] Comment on above: Performed By: #### L CBCD #### [place] [address] Hemoglobin (Bld) [Mass/Vol] 14.5 g/dL Normal 14.0-18.0 [facility] Comment on above: Performed By: #### L CBCD #### [facility] [address] [place], [place] [address] Lymphocytes (Bld) [#/Vol] 2.22 thou/cmm Normal 1.50-3.65 [facility] Comment on above: Performed By: #### L CBCD #### [address] [id number] Lymphocytes/100 WBC (Bld) 28.1 % Normal [facility] Comment on above: Performed By: #### L CBCD #### [address] [address] MCH (RBC) [Entitic mass] 29.8 pg Normal 27.0-31.0 [facility] Comment on above: Performed By: #### L CBCD #### [address] [address] MCHC (RBC) [Mass/Vol] 33.3 % Normal 32.0-36.0 [facility] Comment on above: Performed By: #### L CBCD #### [address] [address] MCV (RBC) [Entitic vol] 89.5 fL Normal 80.0-94.0 [facility] Comment on above: Performed By: #### L CBCD #### [address] [address] Monocytes/100 WBC (Bld) 10.1 % Normal [facility] Comment on above: Performed By: #### L CBCD #### [address] [address] Platelet mean volume (Bld) [Entitic vol] 8.6 fL Normal 7.1-10.5 [facility] Comment on above: Performed By: #### L CBCD #### [address] [address] Platelets (Bld) [#/Vol] 373 thou/cmm Normal 150-400 [facility] Comment on above: Performed By: #### L CBCD #### [address] [place], [place] [address] RBC (Bld) [#/Vol] 4.87 mil/cmm Normal 4.60-6.20 [facility] Comment on above: Performed By: #### L CBCD #### [facility] [address] [place] [address] Seg Neutrophil 58.6 % Normal [facility] Comment on above: Performed By: #### L CBCD #### [facility] [address] [place] [id number] WBC (Bld) [#/Vol] 7.9 thou/cmm Normal 4.8-10.5 [facility] Comment on above: Performed By: #### L CBCD #### [facility] [address] [place] [address] MDRD eGFRon 11-03-2019 GFR/1.73 sq M predicted among non-blacks MDRD (S/P/Bld) [Vol rate/Area] mL/min/{1.73_m2} Normal >60mL/min/ 1.73m2 [facility] Comment on above: Result Comment: If t he patient is , multiply the result by 1.210. Performed By: #### L GFR #### [facility] [address] [place] [address] Protimeon 11-03-2019 INR Coag (PPP) [Relative time] 1.01 {INR} Normal 0.90-1.30 [facility] Comment on above: Result Comment: Ashley min K Antagonist (VKA) Therapeutic Range: INR 2 to 3 (Target INR of 2.5) Note: For patients treated with VKA drugs, such as warfarin, the [employer] 2012 Guideline recommends [...] 2.5 to 3.5 target INR of 3). Emely GH, et al. Chest 2012; 141:7S-47S Kasie RA et al. [facility] 2017; 70: 252-289 Performed By: #### L PT #### [facility] [address] [place] [address] PT Coag (PPP) [Time] 10.7 s Normal 9.7-13.0 [facility] Comment on above: Result Comment: . Performed By: #### L PT #### [place] [address] Urinalysis Routineon 020 Appearance (U) CLEAR Normal [facility] Comment on above: Performed By: #### L PT #### [place] [address] Bilirubin Urine Negative Normal Negative [facility] Comment on above: Performed By: #### L PT #### [place] [address] Color (U) YELLOW Normal [facility] Comment on above: Performed By: #### L PT #### [place] [address] Ep Cells Urine NONE Normal 0-5 [facility] Comment on above: Performed By: #### L PT #### [place] [address] Glucose Ql (U) Negative Normal Negative [facility] Comment on above: Performed By: #### L PT #### [place] [address] Hemoglobin,Urine TRACE-LYSED Abnormal Negative [facility] Comment on above: Performed By: #### L PT #### [place] [address] Ketone Urine Negative Normal Negative [facility] Comment on above: Performed By: #### L PT #### [place] [address] Leukocytes Esterase Negative Normal Negative [facility] Comment on above: Performed By: #### L PT #### [address] [place], [place] [address] Nitrites Urine Negative Normal Negative [facility] Comment on above: Performed By: #### L PT #### [facility] [address] [place] [address] pH (U) 7.0 [pH] Normal 5.0-8.0 [facility] Comment on above: Performed By: #### L PT #### [facility] [address] [place] [address] Protein (U) [Mass/Vol] Negative Normal Negative [facility] Comment on above: Performed By: #### L PT #### [facility] [address] [place] [address] RBC LM.HPF (Urine sed) [#/Area] 0-3 Normal 0-3 [facility] Comment on above: Performed By: #### L PT #### [place] [address] Specific [place], Ur 1.010 Normal 1.005-1 .03 0 [facility] Comment on above: Performed By: #### L PT #### [facility] [address] [place] [address] Urobilinogen,Ur 0.2 EU/dL Normal 0.2-1.0 [facility] Comment on above: Performed By: #### L PT #### [place] [address] WBC LM.HPF (Urine sed) [#/Area] 0-2 Normal 0-5 [facility] Comment on above: Performed By: #### L PT #### [place] [address] XR ANKLE 3V AP/LAT/OBL LTon 11-03-2019 XR [...] of acute left ankle fracture or dislocation. Building Construction Foreman: CHRISTIN Transcribe Date/Time: Nov 03 2019 6:40P Dictated by : TIMUR CHAPA MD This examination was interpreted and the report reviewed and electronically signed by: TIMUR CHAPA MD on Nov 03 2019 6:42PM EST Normal [facility] XR FOOT 3V AP/LAT/OBL LTon 0 11-03-2019 XR FOOT 3V AP/LAT/OBL LT * * *Final Report* * * DATE OF EXAM: Nov 03 2019 5:18PM LDX 5336 - XR FOOT 3V AP/LAT/OBL LT / PROCEDURE REASON: Foot trauma, [place] neg, initial exam * * * * [...] degenerative changes at the first metatarsophalangeal joint. Building Construction Foreman: [facility] Transcribe Date/Time: Nov 03 2019 5:25P Dictated by : PATRICIA LAI MD This examination was interpreted and the report reviewed and electronically signed by: PATRICIA LAI MD on Nov 03 2019 5:28PM EST Normal [facility] XR FOOT 3V AP/LAT/OBL RTon 0 11-03-2019 XR FOOT 3V AP/LAT/OBL RT * * *Final Report* * * DATE OF EXAM: Nov 03 2019 5:18PM LDX 5337 - XR FOOT 3V AP/LAT/OBL RT / PROCEDURE REASON: Foot trauma, [place] neg, polytrauma, initial exam * * * [...] degenerative changes at the first metatarsophalangeal joint. Building Construction Foreman: [facility] Transcribe Date/Time: Nov 03 2019 5:25P Dictated by : PATRICIA LAI MD This examination was interpreted and the report reviewed and electronically signed by: PATRICIA LAI MD on Nov 03 2019 5:28PM EST Normal [facility] XR HIP 3V PELV+ AP/LAT LTon 11-03-2019 [...] are unremarkable. IMPRESSION: No fracture or dislocation. Building Construction Fore[facility] Transcribe Date/Time: Nov 03 2019 5:28P Dictated by : PATRICIA LAI MD This examination was interpreted and the report reviewed and electronically signed by: PATRICIA LAI MD on Nov 03 2019 5:31PM EST Normal [facility] XR HIP 3V PELV+ AP/LAT RTon 11-03-2019 [...] are unremarkable. IMPRESSION: No fracture or dislocation. Building Construction Foreman: [facility] Transcribe Date/Time: Nov 03 2019 5:28P Dictated by : PATRICIA LAI MD This examination was interpreted and the report reviewed and electronically signed by: PATRICIA LAI MD on Nov 03 2019 5:31PM EST Normal [facility] XR KNEE 4V AP/LAT/OBLS LTon 11-03-2019 XR [...] of acute left knee fracture or dislocation. Building Construction Foreman: CHRISTIN Transcribe Date/Time: Nov 03 2019 6:42P Dictated by : TIMUR CHAPA MD This examination was interpreted and the report reviewed and electronically signed by: TIMUR CHAPA MD on Nov 03 2019 6:45PM EST Normal [facility] ED NOTEon 11-01-2017 ED NOTE HNO ID: [id number] Author: Annette (Rn) Christo Hernandez RN Service: (none) Author Type: Registered Nurse Type: ED Notes Filed: 11/01/2017 5:02 PM Note Text: Chronic joint pains, swelling warmth on and off, now some swelling no redness or warmth, Normal [facility] ED NOTE HNO ID: [id number] thor: Annette (Rn) ALEXANDRA Borjaervice: (none)Author Type: Registered NurseType: ED NotesFiled: 11/01/2017 5:00 PMNote Text: DISCHARGE INSTRUCTIONS using teach back:Patient receptive to education,reviewed medications and percautions, f/u,reasons to return,prescription times .......2 percautions with pain medications Normal [facility] ED PROV NOTEon 11-01-2017 ED PROV NOTE HNO ID: [id number] thor: Gino Robins) Randye: (none)Author Type: Physician AssistantType: ED Provider NotesFiled: 11/01/2017 4:34 PMNote Text:ED Provider NotePatient Name: Winston MariMRN: [id number] DATE: 11/01/17HistoryPatient presents with:Pain (foot): rightWrist PainLow [...] BRAIN SURGERY HX- OTHER ANEURYSM REPAIR [address] [facility]- Dr. 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), who verbalized understanding.This note was partially generated using Knowable voice recognition system,and there may be some [...] concerns.Condition at time of disposition: stableSIGNATURE: Margaret Sidhu) Znvjbiid45/11/18 1634 [facility] PROGRESSon 09-24-2017 PROGRESS HNO ID: [id number] thor: Jazz (Ct) MAYCO Rosservice: (none)Author Type: Clinical TechnicianType: Progress NotesFiled: 09/24/2017 1:57 PMNote Text:NAME:Winston MariDATE: September 24, 2017[facility] [id number] X-Ray(s): Lumbar AP / LAT / OBL COMPLETEDTECH ID SIGN: HARMEET CARABALLOTAMIKA [facility] XR LUMBAR PARS 4V AP/LAT/OBL X2on 09-24-2017 [...] L4-L5 and L5-S1.IMPRESSION:Degenera tive changes lower lumbar spine.Building Construction Foreman: CHRISTIN Transcribe Date/Time: Sep 24 2017 3:13PDictated by : JO ANN FUNG MDThis examination was interpreted and the report reviewed and electronically signed by: JO ANN FUNG MD on Sep 24 2017 3:14PM [id number] Normal [facility] Culture, urine Bacteria identified Cx Nom (U) Culture exhibits no growth. [facility] Work Phone: Vital Signs Date Time Vital Sign Value Performing Clinician Facility 04-26-2025 12:39-0400 Body temperature 97.6 [degF] Dr. Eugenio Mayen DO Work Phone: [facility] 04-26-2025 12:39-0400 Diastolic blood pressure 80 mm[Hg] Dr. Eugenio Mayen DO Work Phone: [facility] 04-26-2025 12:39-0400 Heart rate 58 /min Dr. Eugenio Mayen DO Work Phone: [facility] 04-26-2025 12:39-0400 Respiratory rate 16 /min Dr. Eugenio Mayen DO Work Phone: [facility] 04-26-2025 12:39-0400 SaO2% (BldA) [Mass fraction] 100 % Dr. Eugenio Mayen DO Work Phone: [facility] 04-26-2025 12:39-0400 Systolic blood pressure 145 mm[Hg] Dr. Eugenio Mayen DO Work Phone: [facility] 04-26-2025 08:25-0400 Body height 180.[address] Eugenio Mayen DO Work Phone: [facility] 04-26-2025 08:25-0400 Body mass index (BMI) [Ratio] 22.1 kg/m2 Dr. Eugenio Mayen DO Work Phone: [facility] 04-26-2025 08:25-0400 Body weight 72.[address] Eugenio Mayen DO Work Phone: [facility] 04-04-2025 16:05-0400 Body temperature 98.1 [degF] Dr. Eugenio Mayen DO Work Phone: [facility] 04-04-2025 16:05-0400 Diastolic blood pressure 76 mm[Hg] Dr. Eugenio Mayen DO Work Phone: [facility] 04-04-2025 16:05-0400 Heart rate 59 /min Dr. Eugenio Mayen DO Work Phone: [facility] 04-04-2025 16:05-0400 Respiratory rate 14 /min Dr. Eugenio Mayen DO Work Phone: [facility] 04-04-2025 16:05-0400 SaO2% (BldA) [Mass fraction] 100 % Dr. Eugenio Mayen DO Work Phone: [facility] 04-04-2025 16:05-0400 Systolic blood pressure 140 mm[Hg] Dr. Eugenio Mayen DO Work Phone: [facility] 04-04-2025 11:53-0400 Body height 180.[address] Eugenio Mayen DO Work Phone: [facility] 04-04-2025 11:53-0400 Body mass index (BMI) [Ratio] 20.8 kg/m2 Dr. Eugenio Mayen DO Work Phone: [facility] 04-04-2025 11:53-0400 Body weight 67.[address] Eugenio Mayen DO Work Phone: [facility] 02-23-2025 06:33-0400 Diastolic blood pressure 92 mm[Hg] Go Rice MD Work Phone: [facility] 02-23-2025 06:33-0400 Heart rate 60 /min Go Rice MD Work Phone: [facility] 02-23-2025 06:33-0400 Respiratory rate 16 /min Go Rice MD Work Phone: [facility] 02-23-2025 06:33-0400 SaO2% (BldA) [Mass fraction] 100 % Go Rice MD Work Phone: [facility] 02-23-2025 06:33-0400 Systolic blood pressure 156 mm[Hg] Go Rice MD Work Phone: [facility] 02-23-2025 04:20-0400 Body height 180.3 cm Go Rice MD Work Phone: [facility] 02-23-2025 04:20-0400 Body mass index (BMI) [Ratio] 22.18 kg/m2 oG Rice MD Work Phone: [facility] 02-23-2025 04:20-0400 Body temperature 97.7 [degF] Go Rice MD Work Phone: [facility] 02-23-2025 04:20-0400 Body weight 72.12 kg Go Rice MD Work Phone: [facility] 01-03-2025 16:39-0400 Body height 180.[address] Eugenio Mayen DO Work Phone: [facility] 01-03-2025 16:39-0400 Body mass index (BMI) [Ratio] 22 kg/m2 Dr. Eugenio Mayen DO Work Phone: [facility] 01-03-2025 16:39-0400 Body temperature 97 [degF] Dr. Eugenio Mayen DO Work Phone: [facility] 01-03-2025 16:39-0400 Body weight 71.[address] Eugenio Mayen DO Work Phone: [facility] 01-03-2025 16:39-0400 Diastolic blood pressure 82 mm[Hg] Dr. Eugenio Mayen DO Work Phone: [facility] 01-03-2025 16:39-0400 Heart rate 68 /min Dr. Eugenio Mayen DO Work Phone: [facility] 01-03-2025 16:39-0400 Respiratory rate 15 /min Dr. Eugenio Mayen DO Work Phone: [facility] 01-03-2025 16:39-0400 SaO2% (BldA) [Mass fraction] 100 % Dr. Eugenio Mayen DO Work Phone: [facility] 01-03-2025 16:39-0400 Systolic blood pressure 146 mm[Hg] Dr. Eugenio Mayen DO Work Phone: [facility] 01-01-2025 17:09-0400 Body temperature 98 [degF] Dr. Eugenio Mayen DO Work Phone: [facility] 01-01-2025 17:09-0400 Diastolic blood pressure 74 mm[Hg] Dr. Eugenio Mayen DO Work Phone: [facility] 01-01-2025 17:09-0400 Heart rate 63 /min Dr. Eugenio Mayen DO Work Phone: [facility] 01-01-2025 17:09-0400 Respiratory rate 16 /min Dr. Eugenio Mayen DO Work Phone: [facility] 01-01-2025 17:09-0400 SaO2% (BldA) [Mass fraction] 99 % Dr. Eugenio Mayen DO Work Phone: [facility] 01-01-2025 17:09-0400 Systolic blood pressure 122 mm[Hg] Dr. Eugenio Mayen DO Work Phone: [facility] 01-01-2025 16:01-0400 Diastolic blood pressure 74 mm[Hg] Dr. Eugenio Mayen DO Work Phone: [facility] 01-01-2025 16:01-0400 Heart rate 63 /min Dr. Eugenio Mayen DO Work Phone: [facility] 01-01-2025 16:01-0400 Respiratory rate 16 /min Dr. Eugenio Mayen DO Work Phone: [facility] 01-01-2025 16:01-0400 SaO2% (BldA) [Mass fraction] 99 % Dr. Eugenio Mayen DO Work Phone: [facility] 01-01-2025 16:01-0400 Systolic blood pressure 122 mm[Hg] Dr. Eugenio Mayen DO Work Phone: [facility] 01-01-2025 14:02-0400 Body height 180.[address] Eugenio Mayen DO Work Phone: [facility] 01-01-2025 14:02-0400 Body mass index (BMI) [Ratio] 22.1 kg/m2 Dr. Eugenio Mayen DO Work Phone: [facility] 01-01-2025 14:02-0400 Body temperature 98.1 [degF] Dr. Eugenio Mayen DO Work Phone: [facility] 01-01-2025 14:02-0400 Body weight 72.[address] Eugenio Mayen DO Work Phone: [facility] 11-25-2024 12:52-0500 Body temperature 98 [degF] Dr. Eugenio Mayen DO Work Phone: [facility] 11-25-2024 12:52-0500 Diastolic blood pressure 85 mm[Hg] Dr. Eugenio Mayen DO Work Phone: [facility] 11-25-2024 12:52-0500 Heart rate 80 /min Dr. Eugenio Mayen DO Work Phone: [facility] 11-25-2024 12:52-0500 Respiratory rate 16 /min Dr. Eugenio Mayen DO Work Phone: [facility] 11-25-2024 12:52-0500 SaO2% (BldA) [Mass fraction] 98 % Dr. Eugenio Mayen DO Work Phone: [facility] 11-25-2024 12:52-0500 Systolic blood pressure 136 mm[Hg] Dr. Eugenio Mayen DO Work Phone: [facility] 11-25-2024 10:50-0500 Body mass index (BMI) [Ratio] 22.1 kg/m2 Dr. Eugenio Mayen DO Work Phone: [facility] 11-25-2024 10:50-0500 Body weight 72.[address] Eugenio Mayen DO Work Phone: [facility] 11-12-2024 12:16-0500 Body mass index (BMI) [Ratio] 22.4 kg/m2 Dr. Eugenio Mayen DO Work Phone: [facility] 11-12-2024 12:16-0500 Body weight 73.[address] Eugenio Mayen DO Work Phone: [facility] 11-05-2024 18:53-0500 Body temperature 98 [degF] Dr. Eugenio Mayen DO Work Phone: [facility] 11-05-2024 18:53-0500 Diastolic blood pressure 88 mm[Hg] Dr. Eugenio Mayen DO Work Phone: [facility] 11-05-2024 18:53-0500 Heart rate 70 /min Dr. Eugenio Mayen DO Work Phone: [facility] 11-05-2024 18:53-0500 Respiratory rate 18 /min Dr. Eugenio Mayen DO Work Phone: [facility] 11-05-2024 18:53-0500 SaO2% (BldA) [Mass fraction] 97 % Dr. Eugenio Mayen DO Work Phone: [facility] 11-05-2024 18:53-0500 Systolic blood pressure 143 mm[Hg] Dr. Eugenio Mayen DO Work Phone: [facility] 11-05-2024 14:16-0500 Body mass index (BMI) [Ratio] 21.9 kg/m2 Dr. Eugenio Mayen DO Work Phone: [facility] 11-05-2024 14:16-0500 Body weight 71.[address] Eugenio Mayen DO Work Phone: [facility] 2024 10:11-0400 Body temperature 97.6 [degF] [facility] 2024 10:11-0400 Diastolic blood pressure 78 mm[Hg] [facility] 2024 10:11-0400 Heart rate 64 /min [facility] 2024 10:11-0400 Respiratory rate 14 /min [facility] 2024 10:11-0400 SaO2% (BldA) [Mass fraction] 99 % [facility] 2024 10:11-0400 Systolic blood pressure 124 mm[Hg] [facility] 2024 08:36-0400 Body height 180.34 cm [facility] 2024 08:36-0400 Body mass index (BMI) [Ratio] 23.7 kg/m2 [facility] 2024 08:36-0400 Body weight 77.06 kg [facility] 10-09-2023 15:12-0500 Heart rate 79 /min [facility] 10-09-2023 15:12-0500 Respiratory rate 17 /min [facility] 10-09-2023 15:12-0500 SaO2% (BldA) [Mass fraction] 97 % [facility] 10-09-2023 13:130500 Body height 180.34 cm [facility] 10-09-2023 13:13-0500 Body mass index (BMI) [Ratio] 21.8 kg/m2 [facility] 10-09-2023 13:13-0500 Body temperature 98.1 [degF] [facility] 10-09-2023 13:130500 Body weight 71 kg [facility] 10-09-2023 13:13-0500 Diastolic blood pressure 98 mm[Hg] [facility] 10-09-2023 13:13-0500 Systolic blood pressure 139 mm[Hg] [facility] 08-22-2023 08:33-0400 Body height 180.3 cm Hamilton Agarwal MD Work Phone: [facility] 08-22-2023 08:33-0400 Body weight 76.66 kg Hamilton Agarwal MD Work Phone: [facility] 08-22-2023 08:33-0400 Diastolic blood pressure 79 mm[Hg] Hamilton Agarwal MD Work Phone: [facility] 08-22-2023 08:33-0400 Heart rate 76 /min Hamilton Agarwal MD Work Phone: [facility] 08-22-2023 08:33-0400 SaO2% (BldA) [Mass fraction] 96 % Hamilton Agarwal MD Work Phone: [facility] 08-22-2023 08:33-0400 Systolic blood pressure 142 mm[Hg] Hamilton Agarwal MD Work Phone: [facility] 08-09-2023 15:50-0400 Diastolic blood pressure 84 mm[Hg] [facility] 08-09-2023 15:50-0400 Heart rate 18 /min [facility] 08-09-2023 15:50-0400 SaO2% (BldA) [Mass fraction] 98 % [facility] 08-09-2023 15:50-0400 Systolic blood pressure 146 mm[Hg] [facility] 08-09-2023 12:20-0400 Body height 180.34 cm [facility] 08-09-2023 12:20-0400 Body mass index (BMI) [Ratio] 23.7 kg/m2 [facility] 08-09-2023 12:20-0400 Body temperature 97.6 [degF] [facility] 08-09-2023 12:20-0400 Body weight 77.06 kg [facility] 08-09-2023 12:20-0400 Respiratory rate 14 /min [facility] 05-31-2023 10:22-0400 Body height 180.34 cm [facility] 05-31-2023 10:22-0400 Body mass index (BMI) [Ratio] 20.5 kg/m2 [facility] 05-31-2023 10:22-0400 Body temperature 97.1 [degF] [facility] 05-31-2023 10:22-0400 Body weight 66.67 kg [facility] 05-31-2023 10:22-0400 Diastolic blood pressure 76 mm[Hg] [facility] 05-31-2023 10:22-0400 Heart rate 96 /min [facility] 05-31-2023 10:22-0400 Respiratory rate 14 /min [facility] 05-31-2023 10:22-0400 SaO2% (BldA) [Mass fraction] 100 % [facility] 05-31-2023 10:22-0400 Systolic blood pressure 125 mm[Hg] [facility] 03-29-2023 09:49-0400 Body height 185.4 cm Pro Almonte MD Work Phone: [facility] 03-29-2023 09:49-0400 Body temperature 98.8 [degF] Pro Almonte MD Work Phone: [facility] 03-29-2023 09:49-0400 Body weight 66.22 kg Pro Almonte MD Work Phone: [facility] 03-29-2023 09:49-0400 Diastolic blood pressure 68 mm[Hg] Pro Almonte MD Work Phone: [facility] 03-29-2023 09:49-0400 Heart rate 78 /min Pro Almonte MD Work Phone: [facility] 03-29-2023 09:49-0400 Respiratory rate 18 /min Pro Almonte MD Work Phone: [facility] 03-29-2023 09:49-0400 SaO2% (BldA) [Mass fraction] 97 % Pro Almonte MD Work Phone: [facility] 03-29-2023 09:49-0400 Systolic blood pressure 120 mm[Hg] Pro Almonte MD Work Phone: [facility] 02-11-2023 18:33-0400 Diastolic blood pressure 74 mm[Hg] [facility] 02-11-2023 18:33-0400 Heart rate 48 /min [facility] 02-11-2023 18:33-0400 Respiratory rate 13 /min [facility] 02-11-2023 18:33-0400 SaO2% (BldA) [Mass fraction] 100 % [facility] 02-11-2023 18:33-0400 Systolic blood pressure 162 mm[Hg] [facility] 02-11-2023 14:23-0400 Body temperature 97 [degF] [facility] 02-11-2023 14:17-0400 Body height 180.34 cm [facility] 02-11-2023 14:17-0400 Body mass index (BMI) [Ratio] 22.7 kg/m2 [facility] 02-11-2023 14:17-0400 Body weight 74 kg [facility] 01-14-2023 00:16-0400 Diastolic blood pressure 72 mm[Hg] [facility] 01-14-2023 00:16-0400 Heart rate 63 /min [facility] 01-14-2023 00:16-0400 Respiratory rate 15 /min [facility] 01-14-2023 00:16-0400 SaO2% (BldA) [Mass fraction] 98 % [facility] 01-14-2023 00:16-0400 Systolic blood pressure 131 mm[Hg] [facility] 01-13-2023 20:43-0400 Body height 180.34 cm [facility] 01-13-2023 20:43-0400 Body mass index (BMI) [Ratio] 20.9 kg/m2 [facility] 01-13-2023 20:43-0400 Body temperature 97.9 [degF] [facility] 01-13-2023 20:43-0400 Body weight 68.1 kg [facility] 09-19-2022 16:06-0500 Body height 180.3 cm Hubert Jett MD Work Phone: [facility] 09-19-2022 16:06-0500 Body temperature 98.49 [degF] Hubert Jett MD Work Phone: [facility] 09-19-2022 16:06-0500 Body weight 71.67 kg Hubert Jett MD Work Phone: [facility] 09-19-2022 16:06-0500 Diastolic blood pressure 74 mm[Hg] Hubert Jett MD Work Phone: [facility] 09-19-2022 16:06-0500 Heart rate 88 /min Hubert Jett MD Work Phone: [facility] 09-19-2022 16:06-0500 SaO2% (BldA) [Mass fraction] 96 % Hubert Jett MD Work Phone: [facility] 09-19-2022 16:06-0500 Systolic blood pressure 128 mm[Hg] Hubert Jett MD Work Phone: [facility] 09-16-2022 13:18-0500 Respiratory rate 18 /min [facility] 09-16-2022 10:56-0500 Body height 180.34 cm [facility] Work Phone: 09-16-2022 10:56-0500 Body mass index (BMI) [Ratio] 21.7 kg/m2 [facility] 09-16-2022 10:56-0500 Body temperature 96.8 [degF] [facility] 09-16-2022 10:56-0500 Body weight 70.63 kg [facility] 09-16-2022 10:56-0500 Diastolic blood pressure 88 mm[Hg] [facility] 09-16-2022 10:56-0500 Heart rate 85 /min [facility] 09-16-2022 10:56-0500 SaO2% (BldA) [Mass fraction] 100 % [facility] 09-16-2022 10:56-0500 Systolic blood pressure 121 mm[Hg] [facility] 08-12-2022 11:26-0400 Diastolic blood pressure 94 mm[Hg] [facility] Work Phone: 08-12-2022 11:26-0400 Heart rate 58 /min [facility] Work Phone: 08-12-2022 11:26-0400 Respiratory rate 16 /min [facility] Work Phone: 08-12-2022 11:26-0400 SaO2% (BldA) [Mass fraction] 100 % [facility] Work Phone: 08-12-2022 11:26-0400 Systolic blood pressure 136 mm[Hg] [facility] Work Phone: 08-12-2022 09:18-0400 Body mass index (BMI) [Ratio] 21.9 kg/m2 [facility] Work Phone: 08-12-2022 09:18-0400 Body temperature 97.7 [degF] [facility] Work Phone: 08-12-2022 09:18-0400 Body weight 71.2 kg [facility] Work Phone: 08-04-2022 15:20-0400 Diastolic blood pressure 81 mm[Hg] [facility] Work Phone: 08-04-2022 15:20-0400 Heart rate 65 /min [facility] Work Phone: 08-04-2022 15:20-0400 Respiratory rate 17 /min [facility] Work Phone: 08-04-2022 15:20-0400 SaO2% (BldA) [Mass fraction] 97 % [facility] Work Phone: 08-04-2022 15:20-0400 Systolic blood pressure 123 mm[Hg] [facility] Work Phone: 08-04-2022 12:42-0400 Body mass index (BMI) [Ratio] 22.1 kg/m2 [facility] Work Phone: 08-04-2022 12:42-0400 Body temperature 97 [degF] [facility] Work Phone: 08-04-2022 12:42-0400 Body weight 71.8 kg [facility] Work Phone: 04-27-2022 11:24-0400 Diastolic blood pressure 87 mm[Hg] [facility] Work Phone: 04-27-2022 11:24-0400 Heart rate 64 /min [facility] Work Phone: 04-27-2022 11:24-0400 Systolic blood pressure 130 mm[Hg] [facility] Work Phone: 04-27-2022 11:08-0400 Body height 180.34 cm [facility] Work Phone: 04-27-2022 11:08-0400 Body mass index (BMI) [Ratio] 21.4 kg/m2 [facility] Work Phone: 04-27-2022 11:08-0400 Body temperature 97.3 [degF] [facility] Work Phone: 04-27-2022 11:08-0400 Body weight 69.85 kg [facility] Work Phone: 04-27-2022 11:08-0400 Respiratory rate 16 /min [facility] Work Phone: 04-27-2022 11:08-0400 SaO2% (BldA) [Mass fraction] 97 % [facility] Work Phone: 04-24-2022 18:08-0400 Body temperature 97.3 [degF] [facility] Work Phone: 04-24-2022 18:08-0400 Diastolic blood pressure 77 mm[Hg] [facility] Work Phone: 04-24-2022 18:08-0400 Heart rate 69 /min [facility] Work Phone: 04-24-2022 18:08-0400 Respiratory rate 16 /min [facility] Work Phone: 04-24-2022 18:08-0400 SaO2% (BldA) [Mass fraction] 99 % [facility] Work Phone: 04-24-2022 18:08-0400 Systolic blood pressure 142 mm[Hg] [facility] Work Phone: 04-24-2022 18:06-0400 Body height 180.34 cm [facility] Work Phone: 04-24-2022 18:06-0400 Body mass index (BMI) [Ratio] 21.5 kg/m2 [facility] Work Phone: 04-24-2022 18:06-0400 Body weight 70 kg [facility] Work Phone: 04-16-2022 17:09-0400 Diastolic blood pressure 79 mm[Hg] [facility] Work Phone: 04-16-2022 17:09-0400 Heart rate 87 /min [facility] Work Phone: 04-16-2022 17:09-0400 Respiratory rate 16 /min [facility] Work Phone: 04-16-2022 17:09-0400 SaO2% (BldA) [Mass fraction] 99 % [facility] Work Phone: 04-16-2022 17:09-0400 Systolic blood pressure 124 mm[Hg] [facility] Work Phone: 04-16-2022 14:42-0400 Body height 180.34 cm [facility] Work Phone: 04-16-2022 14:42-0400 Body mass index (BMI) [Ratio] 21.4 kg/m2 [facility] Work Phone: 04-16-2022 14:42-0400 Body temperature 98.4 [degF] [facility] Work Phone: 04-16-2022 14:42-0400 Body weight 69.85 kg [facility] Work Phone: 04-14-2022 19:38-0400 Diastolic blood pressure 74 mm[Hg] [facility] Work Phone: 04-14-2022 19:38-0400 Heart rate 50 /min [facility] Work Phone: 04-14-2022 19:38-0400 Respiratory rate 16 /min [facility] Work Phone: 04-14-2022 19:38-0400 SaO2% (BldA) [Mass fraction] 99 % [facility] Work Phone: 04-14-2022 19:38-0400 Systolic blood pressure 153 mm[Hg] [facility] Work Phone: 04-14-2022 17:37-0400 Body height 180.34 cm [facility] Work Phone: 04-14-2022 17:37-0400 Body mass index (BMI) [Ratio] 21.4 kg/m2 [facility] Work Phone: 04-14-2022 17:37-0400 Body temperature 97.5 [degF] [facility] Work Phone: 04-14-2022 17:37-0400 Body weight 69.85 kg [facility] Work Phone: 04-02-2022 23:28-0400 Diastolic blood pressure 67 mm[Hg] [facility] Work Phone: 04-02-2022 23:28-0400 Heart rate 60 /min [facility] Work Phone: 04-02-2022 23:28-0400 Respiratory rate 18 /min [facility] Work Phone: 04-02-2022 23:28-0400 SaO2% (BldA) [Mass fraction] 98 % [facility] Work Phone: 04-02-2022 23:28-0400 Systolic blood pressure 131 mm[Hg] [facility] Work Phone: 04-02-2022 21:22-0400 Body height 180.34 cm [facility] Work Phone: 04-02-2022 21:22-0400 Body mass index (BMI) [Ratio] 21.4 kg/m2 [facility] Work Phone: 04-02-2022 21:22-0400 Body temperature 97.6 [degF] [facility] Work Phone: 04-02-2022 21:22-0400 Body weight 69.85 kg [facility] Work Phone: 04-02-2022 08:24-0400 Body temperature 97.52 [degF] SARY LICEA [facility] 04-02-2022 08:24-0400 Diastolic blood pressure 98 mm[Hg] SARY LICEA DO [facility] 04-02-2022 08:24-0400 Heart rate 64 /min SARY LICEA DO [facility] 04-02-2022 08:24-0400 Respiratory rate 18 /min SARY LICEA DO [facility] 04-02-2022 08:24-0400 Systolic blood pressure 150 mm[Hg] SARY LICEA DO [facility] 03-24-2022 00:14-0400 Diastolic blood pressure 65 mm[Hg] [facility] Work Phone: 03-24-2022 00:14-0400 Heart rate 70 /min [facility] Work Phone: 03-24-2022 00:14-0400 Respiratory rate 15 /min [facility] Work Phone: 03-24-2022 00:14-0400 SaO2% (BldA) [Mass fraction] 97 % [facility] Work Phone: 03-24-2022 00:14-0400 Systolic blood pressure 117 mm[Hg] [facility] Work Phone: 03-23-2022 23:17-0400 Body height 180.34 cm [facility] Work Phone: 03-23-2022 23:17-0400 Body mass index (BMI) [Ratio] 21.4 kg/m2 [facility] Work Phone: 03-23-2022 23:17-0400 Body temperature 98 [degF] [facility] Work Phone: 03-23-2022 23:17-0400 Body weight 69.85 kg [facility] Work Phone: 03-09-2022 10:15-0400 Body height 185.42 cm [facility] Work Phone: 03-09-2022 10:15-0400 Body mass index (BMI) [Ratio] 20.2 kg/m2 [facility] Work Phone: 03-09-2022 10:15-0400 Body temperature 97.4 [degF] [facility] Work Phone: 03-09-2022 10:15-0400 Body weight 69.85 kg [facility] Work Phone: 03-09-2022 10:15-0400 Diastolic blood pressure 79 mm[Hg] [facility] Work Phone: 03-09-2022 10:15-0400 Heart rate 69 /min [facility] Work Phone: 03-09-2022 10:15-0400 Respiratory rate 15 /min [facility] Work Phone: 03-09-2022 10:15-0400 SaO2% (BldA) [Mass fraction] 99 % [facility] Work Phone: 03-09-2022 10:15-0400 Systolic blood pressure 120 mm[Hg] [facility] Work Phone: 03-08-2022 15:15-0400 Body height 185.4 cm Segun Joyner MD Work Phone: [facility] 03-08-2022 15:15-0400 Body mass index (BMI) [Ratio] 20.32 kg/m2 Segun Joyner MD Work Phone: [facility] 03-08-2022 15:15-0400 Body temperature 97.7 [degF] Segun Joyner MD Work Phone: [facility] 03-08-2022 15:15-0400 Body weight 69.85 kg Segun Joyner MD Work Phone: [facility] 03-08-2022 15:15-0400 Diastolic blood pressure 50 mm[Hg] Segun Joyner MD Work Phone: [facility] 03-08-2022 15:15-0400 Heart rate 68 /min Segun Joyner MD Work Phone: [facility] 03-08-2022 15:15-0400 Respiratory rate 16 /min Segun Joyner MD Work Phone: [facility] 03-08-2022 15:15-0400 SaO2% (BldA) [Mass fraction] 99 % Segun Joyner MD Work Phone: [facility] 03-08-2022 15:15-0400 Systolic blood pressure 99 mm[Hg] Segun Joyner MD Work Phone: [facility] 03-07-2022 15:31-0400 Diastolic blood pressure 86 mm[Hg] [facility] Work Phone: 03-07-2022 15:31-0400 Heart rate 88 /min [facility] Work Phone: 03-07-2022 15:31-0400 Respiratory rate 16 /min [facility] Work Phone: 03-07-2022 15:31-0400 Systolic blood pressure 139 mm[Hg] [facility] Work Phone: 03-07-2022 12:50-0400 Body height 185.42 cm [facility] Work Phone: 03-07-2022 12:50-0400 Body mass index (BMI) [Ratio] 20.2 kg/m2 [facility] Work Phone: 03-07-2022 12:50-0400 Body temperature 97.1 [degF] [facility] Work Phone: 03-07-2022 12:50-0400 Body weight 69.85 kg [facility] Work Phone: 03-07-2022 12:50-0400 SaO2% (BldA) [Mass fraction] 100 % [facility] Work Phone: 03-05-2022 12:38-0400 Body temperature 98.42 [degF] NAGA SOLIS MD [facility] 03-05-2022 12:38-0400 Diastolic blood pressure 87 mm[Hg] NAGA SOLIS MD [facility] 03-05-2022 12:38-0400 Heart rate 78 /min NAGA SOLIS MD [facility] 03-05-2022 12:38-0400 Respiratory rate 18 /min NAGA SOLIS MD [facility] 03-05-2022 12:38-0400 Systolic blood pressure 118 mm[Hg] NAGA SOLIS MD [facility] 03-01-2022 13:35-0400 Body temperature 98.24 [degF] LUZ ELENA MCNEILL MD [facility] 03-01-2022 13:35-0400 Diastolic blood pressure 93 mm[Hg] LUZ ELENA MCNEILL MD [facility] 03-01-2022 13:35-0400 Diastolic Blood Pressure NBP 93 1 LUZ ELENA MCNEILL MD [facility] 03-01-2022 13:35-0400 Heart rate 88 /min LUZ ELENA MCNEILL MD [facility] 03-01-2022 13:35-0400 Systolic blood pressure 136 mm[Hg] LUZ ELENA MCNEILL MD [facility] 03-01-2022 13:35-0400 Systolic Blood Pressure NBP 136 1 LUZ ELENA MCNEILL MD [facility] 02-27-2022 20:03-0400 Diastolic blood pressure 78 mm[Hg] [facility] Work Phone: 02-27-2022 20:03-0400 Heart rate 80 /min [facility] Work Phone: 02-27-2022 20:03-0400 Respiratory rate 18 /min [facility] Work Phone: 02-27-2022 20:03-0400 SaO2% (BldA) [Mass fraction] 96 % [facility] Work Phone: 02-27-2022 20:03-0400 Systolic blood pressure 130 mm[Hg] [facility] Work Phone: 02-27-2022 16:27-0400 Body height 180.34 cm [facility] Work Phone: 02-27-2022 16:27-0400 Body mass index (BMI) [Ratio] 22.3 kg/m2 [facility] Work Phone: 02-27-2022 16:27-0400 Body temperature 96.2 [degF] [facility] Work Phone: 02-27-2022 16:27-0400 Body weight 72.57 kg [facility] Work Phone: 02-26-2022 10:41-0400 Body temperature 98.78 [degF] DR ELLEN VALDOVINOS DO [facility] 02-26-2022 10:41-0400 Diastolic blood pressure 79 mm[Hg] DR ELLEN VALDOVINOS DO [facility] 02-26-2022 10:41-0400 Heart rate 83 /min DR ELLEN VALDOVINOS DO [facility] 02-26-2022 10:41-0400 Respiratory rate 18 /min DR ELLEN VALDOVINOS DO [facility] 02-26-2022 10:41-0400 Systolic blood pressure 137 mm[Hg] DR ELLEN VALDOVINOS DO [facility] 01-12-2022 19:50-0400 Diastolic blood pressure 90 mm[Hg] [facility] Work Phone: 01-12-2022 19:50-0400 Heart rate 54 /min [facility] Work Phone: 01-12-2022 19:50-0400 Respiratory rate 18 /min [facility] Work Phone: 01-12-2022 19:50-0400 SaO2% (BldA) [Mass fraction] 97 % [facility] Work Phone: 01-12-2022 19:50-0400 Systolic blood pressure 159 mm[Hg] [facility] Work Phone: 01-12-2022 17:05-0400 Body mass index (BMI) [Ratio] 20.2 kg/m2 [facility] Work Phone: 01-12-2022 17:05-0400 Body temperature 96.8 [degF] [facility] Work Phone: 01-12-2022 17:05-0400 Body weight 69.85 kg [facility] Work Phone: 12-31-2021 17:28-0500 Body temperature 96.8 [degF] MUNIR DAUGHERTY MD [facility] 12-31-2021 17:28-0500 Diastolic blood pressure 45 mm[Hg] MUNIR DAUGHERTY MD [facility] 12-31-2021 17:28-0500 Heart rate 60 /min MUNIR DAUGHERTY MD [facility] 12-31-2021 17:28-0500 Respiratory rate 18 /min MUNIR DAUGHERTY MD [facility] 12-31-2021 17:28-0500 Systolic blood pressure 90 mm[Hg] MUNIR DAUGHERTY MD [facility] 12-04-2021 14:56-0500 Respiratory rate 16 /min [facility] Work Phone: 12-04-2021 11:38-0500 Body mass index (BMI) [Ratio] 23.1 kg/m2 [facility] Work Phone: 12-04-2021 11:38-0500 Body temperature 96.9 [degF] [facility] Work Phone: 12-04-2021 11:38-0500 Body weight 75 kg [facility] Work Phone: 12-04-2021 11:38-0500 Diastolic blood pressure 96 mm[Hg] [facility] Work Phone: 12-04-2021 11:38-0500 Heart rate 67 /min [facility] Work Phone: 12-04-2021 11:38-0500 SaO2% (BldA) [Mass fraction] 99 % [facility] Work Phone: 12-04-2021 11:38-0500 Systolic blood pressure 143 mm[Hg] [facility] Work Phone: 12-04-2021 11:23-0500 Body temperature 97.52 [degF] AJIT BARDALES MD [facility] 12-04-2021 11:23-0500 Diastolic blood pressure 61 mm[Hg] AJIT BARDALES MD [facility] 12-04-2021 11:23-0500 Heart rate 67 /min AJIT BARDALES MD [facility] 12-04-2021 11:23-0500 Respiratory rate 18 /min AJIT BARDALES MD [facility] 12-04-2021 11:23-0500 Systolic blood pressure 157 mm[Hg] AJIT BARDALES MD [facility] 09-10-2021 11:30-0500 Body temperature 98.06 [degF] MUNIR DAUGHERTY MD [facility] 09-10-2021 11:30-0500 Diastolic blood pressure 87 mm[Hg] MUNIR DAUGHERTY MD [facility] 09-10-2021 11:30-0500 Heart rate 85 /min MUNIR DAUGHERTY MD [facility] 09-10-2021 11:30-0500 Respiratory rate 18 /min MUNIR DAUGHERTY MD [facility] 09-10-2021 11:30-0500 Systolic blood pressure 149 mm[Hg] MUNIR DAUGHERTY MD [facility] 08-28-2021 11:40-0500 Body temperature 98.6 [degF] NAGA SOLIS MD [facility] 08-28-2021 11:40-0500 Diastolic blood pressure 90 mm[Hg] NAGA SOLIS MD [facility] 08-28-2021 11:40-0500 Heart rate 70 /min NAGA SOLIS MD [facility] 08-28-2021 11:40-0500 Respiratory rate 18 /min NAGA SOLIS MD [facility] 08-28-2021 11:40-0500 Systolic blood pressure 152 mm[Hg] NAGA SOLIS MD [facility] 06-26-2020 17:25-0400 BMI (Body Mass Index) 22.96 kg/m2 Nas Manzo [facility] [place], [place] 06-26-2020 17:25-0400 Body Temperature 98.1 [degF] [facility] [place] 06-26-2020 17:25-0400 Body weight 78.93 kg Nas Leong [employer] [facility] , [place] 06-26-2020 17:25-0400 BP Diastolic 79 mm[Hg] Nas Leong [employer] [facility] [place] , [place] 06-26-2020 17:25-0400 BP Systolic 145 mm[Hg] Nas Leong [employer] [facility] , [place] 06-26-2020 17:25-0400 Height 185.4 cm [facility] [place] 06-26-2020 17:25-0400 Pulse (Heart Rate) 55 /min Nas [facility] [place] 06-26-2020 17:25-0400 Pulse Oximetry 99 % Nas Leong [facility] [place] 06-26-2020 17:25-0400 Respiratory Rate 16 /min [facility] [place] Encounters Encounter Date Encounter Type Care Provider Facility Start: 05-29-2025 End: 05-29-2025 Patient encounter procedure EUGENIO MAYEN DO [facility] Start: 05-22-2025 ambulatory EUGENIO MAYEN Facility: [facility] Start: 05-05-2025 ambulatory EUGENIO MAYEN Facility: [facility] Start: 04-27-2025 ambulatory EUGENIO MAYEN Facility: [facility] Start: 04-26-2025 End: 04-26-2025 Emergency department patient visit Dr. Eugenio Mayen DO Work Phone: -Emergency Department Work Phone: Start: 04-04-2025 End: 04-04-2025 Emergency department patient visit Dr. Eugenio Mayen DO Work Phone: -Emergency Department Work Phone: Start: 04-02-2025 End: 04-02-2025 ambulatory EUGENIO MAYEN Facility:[facility] Start: 04-02-2025 End: 04-02-2025 Patient encounter procedure EUGENIO MAYEN DO [facility] Start: 03-19-2025 End: 03-19-[address] Tyrone Fagan MD -[facility] Start: 03-19-2025 End: 03-19-[address] Eugenio Mayen DO Work Phone: [facility] Work Phone: Start: 02-23-2025 Emergency department patient visit GO RICE [facility] Start: 02-23-2025 End: 02-23-2025 Emergency department patient visit Go Rice MD Work Phone: [facility] Comment on above: Chest pain, unspecif ied type (Primary Dx); Pain of right lower extremity; Acute right-sided low back pain with right-sided sciatica Start: 01-26-2025 End: 01-26-2025 ambulatory [facility] Start: 01-23-2025 End: 01-23-2025 ambulatory EUGENIO MAYEN [facility] Start: 01-14-2025 ambulatory EUGENIO MAYEN Facility: [facility] Start: 01-08-2025 End: 01-08-2025 ambulatory EUGENIO MAYEN [facility] Start: 01-03-2025 End: 01-03-2025 Emergency department patient visit Dr. Eugenio Mayen DO Work Phone: -Emergency Department Work Phone: Start: 01-01-2025 End: 01-01-2025 Emergency department patient visit Dr. Eugenio Mayen DO Work Phone: -Emergency Department Work Phone: Start: 12-22-2024 End: 12-22-[address] Eugenio Mayen DO Work Phone: [facility] Work Phone: Start: 12-22-2024 End: 12-22-2024 Patient encounter procedure Aiyana PRINCE -[facility] Work Phone: Start: 12-22-2024 End: 12-22-2024 ambulatory Aiyana Campbell Facility:[facility] Start: 12-18-2024 End: 12-22-2024 ambulatory EUGENIO VITALYKO [facility] Start: 12-15-2024 End: 12-15-[address] Jacob Dominguez MD -[facility] Work Phone: Start: 12-15-2024 End: 12-15-2024 ambulatory Jacob Dominguez Facility:[facility] Start: 12-08-2024 End: 12-08-[address] Jacob Dominguez MD -[facility] Work Phone: Start: 12-08-2024 End: 12-08-2024 ambulatory Eugenio Vitalyko Facility:[facility] Start: 11-25-2024 End: 11-25-2024 Emergency department patient visit Dr. Abril Velarde DO -Emergency Department Work Phone: Start: 11-18-2024 End: 11-18-2024 Patient encounter procedure Aiyana PRINCE -[facility] Work Phone: Start: 11-18-2024 End: 11-18-2024 ambulatory Eugenio Vitalyko Facility:[facility] Start: 11-13-2024 End: 11-13-[address] Jacob Dominguez MD -[facility] Work Phone: Start: 11-13-2024 End: 11-13-2024 ambulatory Eugenio Mayen Facility:[facility] Start: 11-05-2024 End: 11-05-2024 Emergency department patient visit Dr. Dennis Strickland DO -Emergency Department Work Phone: Start: 09-22-2024 End: 11-24-2024 ambulatory EUGENIO MELGARKO [facility] Start: 09-22-2024 End: 11-24-2024 Physical therapy management EUGENIO MAYEN DO [facility] Start: 09-11-2024 End: 09-11-2024 ambulatory EUGENIO HALKO [facility] Start: 09-11-2024 End: 09-11-2024 Patient encounter procedure EUGENIO VITALYMARII DO [facility] Start: 07-06-2024 End: 07-06-2024 Emergency department patient visit Abril Velarde Facility:[facility] Start: 07-01-2024 End: 07-01-2024 Emergency department patient visit Barrett Leonard Facility:[facility] Start: 2024 End: 2024 Emergency department patient visit [facility] Work Phone: Start: 12-07-2023 End: 12-08-2023 ambulatory EUGENIO VITALYKO DO Facility:[facility] Start: 12-07-2023 End: 12-07-2023 Patient encounter procedure EUGENIO VITALYKO DO [facility] Start: 10-10-2023 ambulatory EUGENIO VITALYKO DO Facili ty:[facility] Start: 10-09-2023 End: 10-09-2023 Emergency department patient visit [facility] Work Phone: Start: 08-29-2023 ambulatory EUGENIO VITALYKO DO Facili ty:[facility] Start: 08-22-2023 ambulatory EUGENIO HALKO DO Facili ty:[facility] Start: 08-22-2023 End: 08-22-2023 Patient encounter procedure Hamilton Agarwal MD Work Phone: Pain Management Comment on above: Chronic pain syndrom e (Primary Dx) Start: 08-22-2023 End: 08-23-2023 ambulatory HAMILTON AGARWAL Facility:[id number] Start: 08-16-2023 ambulatory EUGENIO HALKO DO Facili ty:[facility] Start: 08-10-2023 End: 08-11-2023 ambulatory EUGENIO VITALYKO DO Facility:[facility] Start: 08-10-2023 End: 08-10-2023 Patient encounter procedure EUGENIO VITALYKO DO [facility] Start: 08-09-2023 End: 08-09-2023 Emergency department patient visit [facility] Work Phone: Start: 06-21-2023 ambulatory HAMILTON AGARWAL Faci lity:[id number] Start: 05-31-2023 End: 05-31-2023 Emergency department patient visit [facility] Work Phone: Start: 05-23-2023 Telephone encounter Pro benítez MD Work Phone: [facility] Comment on above: Patient Question Start: 05-10-2023 End: 05-10-2023 ambulatory SARAI HALKO IV Facility:[facility] Start: 04-30-2023 End: 04-30-2023 ambulatory SARAI HALKO IV Facility:[facility] Start: 04-30-2023 Telephone encounter Kadeem salas MD Work Phone: Pain Management Comment on above: Appointment Start: 04-26-2023 Telephone encounter [facility] Provider Jasvir salas Management Comment on above: Future Appointment ( Left Voice Mail) Start: 03-29-2023 End: 03-29-2023 ambulatory SARAI HALKO IV Facility:[facility] Start: 03-29-2023 End: 03-29-2023 Patient encounter procedure Pro Almonte MD Work Phone: [facility] Comment on above: Other fracture of un specified lumbar vertebra, initial encounter for closed fracture (HCC) (Primary Dx); Lumbar burst fracture, sequela Start: 03-27-2023 Telephone encounter Pro benítez MD Work Phone: [facility] Comment on above: Appointment Start: 03-26-2023 Telephone encounter Pro benítez MD Work Phone: [facility] Comment on above: Orders Start: 02-20-2023 End: 02-20-2023 Emergency department patient visit SARAI HALKO IV Facility:[facility] Start: 02-11-2023 End: 02-13-2023 Evaluation and management of inpatient PRETTY CARDENAS Facility:[facility] Start: 02-11-2023 End: 02-11-2023 Emergency department patient visit [facility] Start: 01-13-2023 End: 01-14-2023 Emergency department patient visit [facility] Start: 12-15-2022 End: 12-16-2022 ambulatory EUGENIO MAYEN DO Facility:[facility] Start: 12-15-2022 End: 12-15-2022 Patient encounter procedure EUGENIO MAYEN DO [facility] Start: 12-13-2022 End: 12-14-2022 ambulatory EUGENIO MAYEN DO Facility:B Start: 12-13-2022 End: 12-13-2022 Patient encounter procedure EUGENIO MAYEN DO [facility] Start: 12-04-2022 End: 12-04-2022 Patient encounter procedure EUGENIO MAYEN DO [facility] Start: 10-02-2022 End: 10-02-2022 Patient encounter procedure EUGENIO MAYEN DO [facility] Start: 09-19-2022 End: 09-19-2022 ambulatory EUGENIO MAYEN IV Facility:[facility] Start: 09-19-2022 End: 09-19-2022 Patient encounter procedure Hubert Jett MD Work Phone: General Surgery Comment on above: Anal fissure (Primar y Dx) Start: 09-19-2022 End: 09-19-2022 Patient encounter procedure DOUG RM DO [facility] Start: 09-16-2022 End: 09-16-2022 Emergency department patient visit [facility] Start: 09-04-2022 End: 09-04-2022 Patient encounter procedure EUGENIO MAYEN DO [facility] Start: 08-12-2022 End: 08-12-2022 Emergency department patient visit [facility] Start: 08-04-2022 End: 08-04-2022 Emergency department patient visit [facility] Start: 07-24-2022 End: 07-24-2022 Patient encounter procedure EUGENIO MAYEN DO [facility] Start: 04-27-2022 End: 04-27-2022 Emergency department patient visit [facility] Start: 04-24-2022 End: 04-24-2022 Emergency department patient visit [facility] Start: 04-16-2022 End: 04-16-2022 Emergency department patient visit [facility] Start: 04-14-2022 End: 04-14-2022 Emergency department patient visit [facility] Start: 04-02-2022 End: 04-03-2022 Emergency department patient visit [facility] Start: 04-02-2022 End: 04-02-2022 Emergency department patient visit SARY LICEA DO [facility] Start: 03-26-2022 End: 03-26-2022 Emergency department patient visit DR NAWAF TOUSSAINT [facility] Start: 03-23-2022 End: 03-24-2022 Emergency department patient visit [facility] Start: 03-09-2022 End: 03-09-2022 Emergency department patient visit [facility] Start: 03-08-2022 End: 03-12-2022 Outreach Lab EUGENIO MAYEN DO [facility] Start: 03-08-2022 End: 03-08-2022 Emergency department patient visit Segun Joyner MD Work Phone: [facility] Comment on above: Acute sciatica (Prim darron Dx) Start: 03-07-2022 End: 03-07-2022 Emergency department patient visit [facility] Start: 03-07-2022 End: 03-07-2022 Patient encounter procedure MARCELL RAMSEY MD [facility] Start: 03-05-2022 End: 03-05-2022 Emergency department patient visit NAGA SOLIS MD [facility] Start: 03-01-2022 End: 03-01-2022 Emergency department patient visit LUZ ELENA MCNEILL MD [facility] Start: 02-27-2022 End: 02-27-2022 Emergency department patient visit [facility] Start: 02-27-2022 End: 02-27-2022 Emergency department patient visit SARY LICEA DO [facility] Start: 02-26-2022 End: 02-26-2022 Emergency department patient visit DR ELLEN VALDOVINOS DO [facility] Start: 02-17-2022 End: 02-17-2022 Patient encounter procedure EUGENIO MAYEN DO [facility] Start: 01-12-2022 End: 01-12-2022 Emergency department patient visit [facility] Start: 12-31-2021 End: 12-31-2021 Emergency department patient visit MUNIR DAUGHERTY MD [facility] Start: 12-04-2021 End: 12-04-2021 Emergency department patient visit [facility] Start: 12-04-2021 End: 12-04-2021 Emergency department patient visit AJIT BARDALES MD [facility] Start: 09-10-2021 End: 09-10-2021 Emergency department patient visit MUNIR DAUGHERTY MD [facility] Start: 08-28-2021 End: 08-28-2021 Emergency department patient visit NAGA SOLIS MD [facility] Start: 04-15-2021 Rx Renewal Eugenio asher Work Phone: [facility] Work Phone: Start: 06-26-2020 End: 06-26-2020 Emergency department patient visit Nas Singletonalina Work Phone: [facility] Comment on above: Lumbar contusion, in itial encounter (Primary Dx); Sprain of left wrist, initial encounter Start: 11-01-2017 End: 11-01-2017 Emergency department patient visit [facility] Start: 09-24-2017 End: 09-24-2017 Ambulatory [facility] Start: 05-29-2017 Ambulatory [facility] Start: 05-28-2017 Ambulatory [facility] Procedures Date Procedure Procedure Detail Performing Clinician Start: 04-26-2025 Plain chest X-ray Dr. Prashant Mayen DO Work Phone: Start: 04-26-2025 Plain x-ray of pelvi s and lower extremity Dr. Eugenio Mayen DO Work Phone: Start: 04-26-2025 Plain X-ray of shoulder Dr. Eugenio Mayen DO Work Phone: Start: 04-26-2025 Plain x-ray of wrist Dr Shadi Mayen DO Work Phone: Start: 04-26-2025 Computed tomography of thoracic spine without contrast Dr. Eugenio Mayen DO Work Phone: Start: 04-26-2025 CT cervical spine wi thout contrast Dr. Eugenio Mayen DO Work Phone: Start: 04-26-2025 CT of head without contrast Dr. Eugenio Mayen DO Work Phone: Start: 04-26-2025 CT of lumbar spine Dr. Eugenio Mayen DO Work Phone: Start: 04-04-2025 Plain X-ray of shoulder Dr. Eugenio Mayen DO Work Phone: Start: 03-19-2025 X-ray of lumbosacral spine Dr. Eugenio Mayen DO Work Phone: Start: 02-23-2025 Dup-scan xtr veins unilateral/limited study [...] spine Start: 02-12-2023 Antibody screen EUGENIO MAYEN IV Comment on above: Order Comment: Speci men Type: BLOOD SPECIMENOrdering Facility: [facility] Address: [address] [place] [id number] Performed By: #### T SCR ####[facility] BLOOD BANKCLIA [id number] [place] [address] [place] Start: 02-11-2023 Pelvis [...] Radex humerus minimu m 2 views Nas Leong Work Phone: Start: 06-26-2020 Radex shoulder compl ete minimum 2 views Nas Dirtonoo Work Phone: Start: 06-26-2020 Radex spine lumbosac ral 2/3 views Nas Dirtonoo Work Phone: Start: 06-26-2020 Radex wrist complete minimum 3 views Nas Leong Work Phone: Start: 08-30-2017 Lipid 1996 panel - S david or Plasma Hamilton Agarwal MD Work Phone: Start: 07-31-1988 Colonoscopy Hubret jenkins MD Work Phone: Colonoscopy Eugenio Mayen [...] DTaP,Tdap,Td Vaccine (3 - Td or Tdap) [facility] Start: 02-13-2026 DIABETES SCREEN DIABETES SCREEN [facility] Start: 02-13-2026 Diabetes Screening Diabetes Screenin g [facility] Start: 04-26-2025 [facility] Start: 04-04-2025 [facility] Start: 03-19-2025 Patient referral [facility] Work Phone: Start: 03-19-2025 X-ray of lumbosacral spine L/S Spine Bending Flex/Ext [facility] Start: 03-19-2025 XR Spine Lumbar and Sacrum Views [facility] Start: 01-03-2025 [facility] Start: 01-01-2025 End: 01-01-2025 [facility] Start: 11-25-2024 [facility] Start: 11-05-2024 [facility] Start: 2024 [facility] Start: 10-09-2023 [facility] Start: 08-09-2023 [facility] Start: 06-22-2023 Influenza vaccination C [facility] Start: 11-03-2022 DIABETES SCREEN DIABETES SCREEN [facility] Start: 10-22-2022 ADVANCE DIRECTIVE DISCUSSION ADVANCE DIRECTIVE DISCUSSION [facility] Start: 10-22-2022 [facility]PRESSION [facility]ESSMENT [facility] Start: 08-30-2022 Lipid 1996 panel - S david or Plasma Lipid Screening [facility] Start: 08-30-2022 LIPID SCREEN LIPID SCREEN [facility] Start: 08-30-2022 PROSTATE CANCER SCREENING DISCUSSION PROSTATE CANCER SCREENING DISCUSSION [facility] Start: 06-22-2022 Influenza vaccination S [facility] Start: 04-24-2022 Referral to service [facility] Work Phone: Start: 10-22-2021 ADVANCE DIRECTIVE DISCUSSION ADVANCE DIRECTIVE DISCUSSION [facility] Start: 10-22-2021 DEPRESSION ASSESSMENT [facility] Start: 02-05-2021 Pneumococcal Vaccine : 65+ (1 - PCV) Pneumococcal Vaccine: 65+ (1 - PCV) [facility] Start: 02-05-2021 PNEUMOCOCCAL: 65+ (1 - PCV) PNEUMOCOCCAL: 65+ (1 - PCV) [facility] Start: 06-22-2020 Influenza vaccination Flu vaccine (# 1) [facility] [place] Start: 2016 RSV Vaccine (1 - 1-d ose 60+ series) RSV Vaccine (1 - 1-dose 60+ series) [facility] Start: 02-05-2006 SHINGRIX VACCINE (1 of 2) SHINGRIX VACCINE (1 of 2) [facility] Start: 02-05-2001 COLOGUARD (FIT-DNA) COLOGUARD (FIT-D NA) [facility] Start: 02-05-[address] [facility] Start: 02-05-2001 COLORECTAL CANCER SCREENING COLORECTAL CANCER SCREENING [facility] Start: 02-05-[address] COLONOGRAPHY [facility] Start: 02-05-2001 FECAL OCCULT BLOOD FECAL OCCULT BLOO D [facility] Start: 02-05-2001 SIGMOIDOSCOPY SIGMOIDOSCOPY [facility] Start: 02-05-1975 Urine microalbumin profile DTAP,TDAP,TD (1 - Tdap) [facility] Start: 02-05-1974 HEPATITIS C SCREENING HEPATITIS C SC REENING [facility] Start: 02-05-1961 COVID-19 Vaccine (1) COVID-19 Vaccin e (1) [facility] Start: 1955 COVID-19 VACCINE (#1) COVID-19 VACCI NE (#1) [facility] Start: 1955 ABDOMINAL AORTIC ANEURYSM SCREENING ABDOMINAL AORTIC ANEURYSM SCREENING [facility] End: 04-27-2024 Mri spinal canal lumbar w/o contrast material MRI LUMBAR SPINE WO IVCON Radiology Routine Other fracture of unspecified lumbar vertebra, initial encounter for closed fracture (HCC) 1 Occurrences starting 03/29/2023 until 04/27/2024 [facility] Work Phone: Comment on above: 1 Occurrences starti ng 03/29/2023 until 04/27/2024 Patient Education [facility] Work Phone: Patient referral [facility] Work Phone: [facility] Immunizations Immunization Date Immunization Notes Care Provider Fa ciliml 11-06-2024 tetanus toxoid, redu gaby diphtheria toxoid, and acellular pertussis vaccine, adsorbed; Translations: [Boostrix (Tdap)] EUGENIO MAYEN DO [facility] 10-02-2024 Pneumococcal conjuga te PCV20, polysaccharide CDB363 conjugate, adjuvant, PF; Translations: [Prevnar 20] EUGENIO MAYEN DO [facility] 09-11-2024 influenza, high dose seasonal, preservative-free; Translations: [Afluria PF Prefilled Syringe ] EUGENIO MELGARMARII FLEMING [facility] 09-24-2023 influenza, high dose seasonal, preservative-free; Translations: [Fluad Quadrivalent PF ] EUGENIO MAYEN DO [facility] 06-15-2018 tetanus toxoid, redu gaby diphtheria toxoid, and acellular pertussis vaccine, adsorbed NAGA SOLIS MD [facility] 06-15-2018 diphtheria and tetan us toxoids, adsorbed for pediatric use EUGENIO VITALYMARII FLEMING [facility] Comment on above: Result Comment: Unit : Unknown Route: Intramuscular Rn Lvn: Glaxo Hernandez Wong 08-28-2017 influenza virus vacc ine, unspecified formulation Hamilton Agarwal MD Work Phone: [facility] Payers Date Payer Category Payer Self-pay [id number] 2022 Medicaid [id number] 2017 Unknown 2017 Medicaid HMO [employer] [place] [employer] [id number] 1998 Medicaid [id number]. [id number] 1998 Unknown [id number] 1956 Unknown [id number] 2.16.840.1.668293.3.579.2.651 1956 Unknown [id number] 2.16.840.1.567571.3.579.2.627 1956 Unknown [id number] 2.16.840.1.958827.3.579.2.627 1956 Unknown [id number] 2..840.1.489166.3.579.2.627 1956 Unknown [id number] 2.16.840.1.937069.3.579.2.627 1956 Unknown [id number] 2.16.840.1.539976.3.579.2.627 1956 Unknown [id number] 2.16.840.1.014906.3.579.2.627 1956 Unknown [id number] 2.16.840.1.373492.3.579.2.627 1956 Unknown [id number] 2.16.840.1.739549.3.579.2.627 1956 Unknown [id number] 2.16.840.1.326890.3.579.2.201 1956 Unknown [id number] 2.16.840.1.500107.3.579.2.201 1956 Unknown [id number] 2.16.840.1.526577.3.579.2.201 1956 Unknown [id number] 2.16.840.1.971311.3.579.2.627 1956 Unknown [id number] .840.1.396424.3.579.2. 1956 Unknown [id number] .840.1.219773.3.579.2. 1956 Unknown [id number] .840.1.322123.3.579.2. 1956 Unknown [id number] .840.1.649872.3.579.2. 1956 Unknown [id number] 12.07.830.1.529163.3.579.2. 1956 Unknown [id number] 12.07.830.1.301581.3.579.2. 1956 Unknown [id number] 12.07.830.1.765693.3.579.2. 1956 Unknown [id number] 840.1.494402.3.579.2. 1956 Unknown [id number] 12.07.830.1.099354.3.579.2. 1956 Unknown [id number] 12.07.830.1.452570.3.579.2.627 Unknown [id number] 840.1.385079.3.579.2.462 Unknown [id number] 840.1.049653.3.579.2.462 Unknown [id number] 840.1.469152.3.579.2.462 Unknown [id number] 840.1.028437.3.579.2.462 Unknown [id number] 2840.1.541173.3.579.2.462 Unknown [id number] 840.1.445427.3.579.2.462 Unknown [id number] 2.16.840.1.354964.3.579.2.462 Unknown [id number] 2.16.840.1.555848.3.579.2.462 Unknown [id number] 2.16.840.1.848561.3.579.2.462 Unknown [id number] 2.16.840.1.047162.3.579.2.462 Unknown [id number] 2.16.840.1.633468.3.579.2.462 Unknown [id number] 2.16.840.1.318899.3.579.2.462 Unknown [id number] 2.16.840.1.693567.3.579.2.462 Unknown [id number] 2.16.840.1.825204.3.579.2.462 Unknown [id number] 2.16.840.1.625732.3.579.2.462 Unknown [id number] 2.16.840.1.158363.3.579.2.462 Social History Date Type Detail Facility Start: 06-26-2020 End: 05-20-2025 Tobacco smoking status NHIS Former smoker [place], [place] Start: 06-26-2020 End: 08-22-2023 Alcohol intake Current non-drinker of alcohol (finding) [place], [place] Start: 1955 Sex Assigned At Not on file [place] Start: 02-26-2022 End: 09-19-2022 Exposure to SARS-CoV-2 (event) Not sure [place] Start: 03-29-2023 End: 02-23-2025 Rarely consumes alcohol Rarely consumes alcohol [facility] Sex Assigned At [facility] Start: 02-27-2022 End: 2024 Tobacco smoking status NHIS Unknown if ever smoked [facility] Start: 02-10-2019 None [facility] Start: 02-10-2019 Alone [facility] Start: 1955 Sex Assigned At Male W [facility] Start: 05-28-2017 End: 02-23-2025 Tobacco use and exposure Smokeless tobacco non-user [facility] Work Phone: End: 10-22-1997 History of tobacco use Current smoker [facility] End: 10-22-1997 History of tobacco use Cigarette Smoker [facility] Start: 09-19-2022 Tobacco Comment Quit 1998 [facility] Start: 01-28-2019 Alcohol Comment Quit 1986 [facility] Start: 02-12-2023 History SDOH Financial [address] [facility] Start: 02-12-2023 History SDOH Food Worry [address] [facility] Start: 02-12-2023 History SDOH Transpo rt Med [address] [facility] Start: 03-29-2023 End: 02-23-2025 Tobacco use panel [facility] How hard is it for y ou to pay for the very basics like food, housing, medical care, and heating Not hard at all [facility] (I/We) worried rebeca er (my/our) food would run out before (I/we) got money to buy more. Never true [facility] In the past 12 month s, was there a time when you were not able to pay the mortgage or rent on time? No [facility] Start: 08-12-2014 End: 01-03-2025 Sex Male (finding) [facility] History of tobacco use Passive smoker [facility] Start: 02-23-2025 Alcoholic beverage intake Ex-drinker (finding) [facility] Functional Status Date Assessment Result Facility 02-23-2025 Are you deaf, or do you have serious difficulty hearing No 02/23/2025 5:07 AM Nataliya Womack RN No [facility] 02-23-2025 Are you blind, or do you have serious difficulty seeing, even when wearing glasses No 02/23/2025 5:07 AM Nataliya Womack RN [facility] 02-23-2025 Do you have serious difficulty walking or climbing stairs No 02/23/2025 5:07 AM Nataliya Womack RN [facility] 02-23-2025 Do you have difficul ty dressing or bathing No 02/23/2025 5:07 AM Nataliya Womack RN [facility] 02-23-2025 Because of a physica l, mental, or emotional condition, do you have difficulty doing errands alone such as visiting a physician's office or shopping No 02/23/2025 5:07 AM Nataliya Womack RN No [facility] 04-02-2022 Functional Status ID band on, Allergy Band on, Call device within reach, Bed in low position, Wheels locked, Upper/Half-Length side-rails up, Phone within reach, personal items within reach, Assistive devices within reach, Toileting device within reach, Bedside Cart Locked, Visitor at bedside, Safety level maintained [facility] 03-05-2022 Functional Status [facility] 03-01-2022 Functional Status [facility] 02-26-2022 Functional Status [facility] Mental Status Date Assessment Result Facility 02-23-2025 Because of a physica l, mental, or emotional condition, do you have serious difficulty concentrating, remembering, or making decisions No 02/23/2025 5:07 AM Nataliya Womack RN [facility] 11-25-2024 Cognitive function Level Of Cons ciousness Awake;Alert [facility] Work Phone: 04-02-2022 Mental Status Oriented x 4 [facility] 03-05-2022 Mental Status [facility] 03-01-2022 Mental Status [facility] 02-26-2022 Mental Status [facility] Clinical Notes 08-05-2020 to 05-29-2025 Note Date & Type Note Facility 05-29-2025 Note Exam Date Time Procedure Performing Provider Status 05/29/25 1:33 PM BD Bone Density DEXA Axial Skeleton JORDY IRVIN MD; Auth (Verified) [id number] ORIGINAL EXAMINATION: BONE DENSITOMETRY 05/29/2025 1:35 pm TECHNIQUE: A bone density dual x-ray absorptiometry (DEXA) scan was performed of the axial (e.g. hips, spine) and/or appendicular (e.g. radius) skeleton as appropriate. COMPARISON: 12/15/2022. HISTORY: Reason for Exam: Osteoporosis Screening FINDINGS: T Score Left Femoral Neck: -1.7 Left Femoral Neck: 0.694 (g/cm2) T Score Left Hip: -1.2 Left Hip: 0.855 (g/cm2) T Score Lumbar Spine: -0.3 Lumbar Spine: 1.053 (g/cm2) BMD Change from previous Lumbar Spine: +17.4%, significant FRAX: 10 year fracture risk assessment is not reported as the patient has had a prior hip or vertebral fracture. The BHOF f/k/a NOF recommends that FDA-approved medical therapies be considered in post-menopausal women and men age >/= 50 years with a: * Hip or vertebral fracture, or * T-score of /= 20% for major osteoporotic fractures or * >/= 3% for hip fractures All treatment decisions require clinical judgement and consideration of individual patient factors, including patient preferences, comorbidities, previous drug use, risk factors not captured in the FRAX registered model (e.g., frailty, falls, vitamin D deficiency, increased bone turnover, interval significant decline in bone density) and possible under- or over-estimation of fracture risk by FRAX. IMPRESSION: Osteopenia. I have personally reviewed the images of this examination and agree with the resident's findings and interpretation. Interpreted by: Jordy Irvin MD Preliminary Report By: Darinel Meneses Electronically signed By Jordy Irvin MD Dictated Date: 05/29/2025 2:30:07 PM Prelim Date: 05/29/2025 6:09:20 PM Sign Date: 05/29/2025 6:09:20 PM Ordering Provider: EUGENIO HALKO [facility]07-06-2025 Discharge summary [facility] Medical Records Department [address] [place] [address] Emergency Department Summary 04/26/25 MR#: [id number] Acct: [id number] Name: WINSTON MARI Rep #:[id number] : [id number] 70 From: Husam morgan DO PCP: Dr. Eugenio Mayen, DO Status:REG ER Location: ED HPI HPI - Fall History of Present Illness Chief Complaint: Fall Narrative Narrative: Chief complaint and HPI: Fall downstairs. 70-year-old male with past medical history of degenerative disc disease, GERD presents for evaluation of fall downstairs. Patient states this morning he was walking downstairs to do laundrywhen he slipped on his grandchildren's toy. States that he fell downthe stairs. Landed on concrete. Unsure if he hit his head. No LOC. Not on blood thinners. States that his family member helped him to his feet. He endorses left shoulder and wrist pain, bilateral hippain, and thoracic/lumbar back pain. He denies any fever, chills, neck pain, chest pain, shortness of breath, abdominal pain, nausea, vomiting, numbness, tingling, weakness. Review of systems: See HPI Medications: As listed on the chart Allergies: As listed on the chart PFSH: Per chart Vital signs: As listed on the chart. Reviewed. Physical exam: Gen: A&O x3, NAD Head: Normocephalic, atraumatic Eyes: No sclera icterus, conjunctiva clear, PERRL, EOMI ENT: TMs clear BL, moist mucous membranes, no swelling/lacerations/blood in the mouth or the nares,No nasal septal hematoma, no facial tenderness Neck: Trachea midline, No JVD, Nontender CV: RRR, no murmurs, no chest wall TTP Resp: Lungs CTA BL, no w/r/c GI: Abd soft, non-distended, non-tender, no r/r/g Musc: Limited range of motion of the left upper extremity secondary to left shoulder and wrist pain-both tender to palpation with mild swelling in the left wrist, radial pulse +2 bilaterally, elbow full range of motion without tenderness, No tenderness to the arm, patient has tenderness to palpation of thebilateral hips, femoral/DP/PT pulses +2 bilaterally, bilateral knees nontender to palpation,compartments soft, no obvious deformity, no midline spinal tenderness although tenderness to palpation of the bilateral paraspinal musculature in the lower thoracic and lumbar spine, no bony step-offs Skin: Warm, dry, intact Neuro: Alert, oriented, grossly intact, sensation intact, GCS 15 Psych: Cooperative, appropriate mood and affect [facility] Medical History Left rotator cuff tear Anemia GERD (gastroesophageal reflux disease) Left shoulder pain Hemorrhoid Epilepsy Sciatica High cholesterol Home Medications ?Medication ?Instructions ?Recorded ?Last Taken ?Type gabapentin 300 mg capsule 300 mg PO 4X/DAY 04/02/22 Un known History hydrocortisone acetate 25 mg 25 mg [place] QHS #12 ea 04/27 Unknown Rx rectal [...] Time adhesive tape (tape) AdvReac Rash Verified 04/26/25 08:25 hydrocodone (From [place]) AdvReac Upset Verified 04/26/25 08:25 Stomach ibuprofen AdvReac Upset Verified 04/26/25 08:25 Stomach ketorolac (From Toradol) AdvReac Rash Verified 04/26/25 08:25 meloxicam (From Mobic) AdvReac Muscle Verified 04/26/25 08:25 weakness naproxen AdvReac Rash Verified 04/26/25 08:25 tramadol AdvReac Upset Verified 04/26/25 08:25 Stomach Family History Other Cancer Diabetes Heart disease Surgical History Leg fracture, left S/P clamping of cerebral aneurysm Social History household members: significant other Smoking Status: Former smoker alcohol intake: former substance use type: does not use EXAM Physical Exam Const Vital Signs: 04/26/25 08:25 04/26/25 08:49 04/26/25 10:15 Temperature 97.6 F L Temperature Source Oral Pulse Rate 73 51 L Respiratory Rate 16 22 H Respiratory Effort Normal Respiratory Depth Normal Respiratory Pattern Normal Blood Pressure 121/74 H 130/77 H Blood Pressure Mean 89 94 Pulse Ox 100 97 Oxygen Delivery Method Room Air Room Air Room Air 04/26/25 11:00 Temperature Temperature Source Pulse Rate 43 L Respiratory Rate 18 Respiratory Effort Respiratory Depth Respiratory Pattern Blood Pressure 145/80 H Blood Pressure Mean 101 Pulse Ox 100 Oxygen Delivery Method Room Air MDM MDM MDM Narrative Medical decision making narrative: 70-year-old male with past medical history of degenerative disc disease, GERD presents for evaluation of fall downstairs. Patient states this morning he was walking downstairs to do laundry when he slipped on his grandchildren's toy. States that he fell down the stairs. Landed on concrete. Unsure if he hit his head. No LOC. Not on blood thinners. Was able to ambulate after the incident however endorses left shoulder and wrist pain as well as bilateral hip pain and thoracic/lumbar back pain. Seephysical exam findings. Differential diagnosis includes but is not limited to spinal fracture, backcontusion, hip contusion, hip fracture, extremity contusion, extremity fracture, neck fracture, intr acranial bleed. Morphine and Zofran ordered for symptoms. Imaging workup ordered. Given that patient states this was purely mechanical fall I do not think any laboratory workup is needed at this time. CT of the head shows no acute intracranial pathology or traumatic injury. CT of the cervical spineshows degenerative disc disease without any acute traumatic injury. CT of the thoracic and lumbar fracture again without acute traumatic injury. Patient has chronic mild compression. Plain film x-rays were personally reviewed and interpreted by me, ED physician. X-ray of the shoulder shows no acutefracture or dislocation. Per radiology patient has chronic arthritis and rotator cuff pathology. Hehas a healed fracture with deformity at the mid humeral shaft. Patient is not tender to palpation in this area. Patient states he broke this years ago. X-ray of the bilateral hips and pelvis without fracture or dislocation. Radiology in agreement. X-ray of the left wrist without fracture or dislocation. Patient has arthritis. Radiology in agreement. X-ray of the chest without pneumothorax, cardiomegaly, pneumonia, effusion, rib fracture. Radiology in agreement. On reevaluation, patient has increased movement as his pain is improved. He was able to ambulate in the emergency department without difficulty. Patient states that he has no assistive devices at home they are will prescribe a walkeras needed. Recommend following up with PCP. Tylenol Motrin as needed for pain. He confirmed understanding of plan. Patient stable to discharge home. Impression: 1. Left shoulder contusion 2. Left wrist contusion 3. Bilateral hip contusions 4. Closed head injury 5. Mechanical fall 6. Thoracic and lumbar back contusion/strain Radiography Diagnostic Testing: Clinical Impression(s) from Imaging Studies Brain CT 04/26/25 09:30 IMPRESSION: 1. No evidence of acute intracranial pathology. 2. Status post left occipital craniotomy. 3. Other findings as noted. Reading Location: [id number] Cervical Spine CT 04/26/25 09:30 IMPRESSION: 1. Multilevel degenerative disc disease as described. 2. Multilevel facet arthropathy with degenerative grade 1 anterolisthesis C7 onT1. 3. Other findings as noted. No significant change. Reading Location: [facility] Lumbar Spine CT 04/26/25 09:30 IMPRESSION: 1. Chronic mild compression of the superior endplates of L2, L4 and L5. 2. Degenerative disc disease as described. 3. Other findings as noted. Reading Location: [facility] Thoracic Spine CT 04/26/25 09:30 IMPRESSION: 1. Mild compression of the superior endplate of T6 and T9, chronic. 2. No evidence of acute injury to the thoracic spine. 3. Other findings as noted. Reading Location: [facility] Chest X-Ray 04/26/25 09:45 IMPRESSION: No evidence of acute cardiopulmonary pathology. Reading Location: [facility] Hip/Pelvis X-Ray 04/26/25 09:45 IMPRESSION: 1. Normal bilateral hips. 2. Other findings as noted. Reading Location: [facility] Shoulder X-Ray 04/26/25 09:45 IMPRESSION: 1. No evidence of acute fracture or dislocation. 2. Arthritis of the acromioclavicular and glenohumeral joints. 3. 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 Reading Location: [facility] Wrist X-Ray 04/26/25 09:45 IMPRESSION: 1. No evidence of fracture or dislocation. 2. Multifocal arthropathy. Reading Location: [facility] Discharge Plan Triage Chief Complaint: Fall ED Provider: Husam Haynes Dx/Rx/DC Orders Prescriptions: No Action ferrous sulfate 325 mg (65 mg iron) tablet 325 mg PO QDAY pantoprazole 40 mg tablet,delayed release (DR/EC) 40 mg PO QDAY gabapentin 300 mg capsule 300 mg PO 4X/DAY hydrocortisone acetate [Anusol-HC] 25 mg suppository 25 mg [place] QHS Qty: 12 0RF atorvastatin [Lipitor] 40 [...] DO [Primary Care Provider] - Print Language: Azerbaijani What to do if you have Problems For any increased pain, shortness of breath, bleeding, nausea or vomiting, chestpain, or any unexpected problems, contact your Primary Care Provider. Call [facility] ([phone]) or report tothe closest Emergency Room. Call 911 if necessary. 04/26/25 1204 Cosigner Signature (if applicable): CC: Dr. Eugenio Mayen DO ~ Signed [facility]07-06-2025 Radiology Diagnostic study note [facility] Imaging Services [address] [place], [place] [address] Chest 1 View (Portable) MR#: [id number] Acct: [id number] Name: WINSTON MARI Rep #: [id number] : 1955 M 70 From: Pilo Bocanegra MD PCP: Dr. Eugenio Mayen DO Status: REG ER Study:Chest 1 View (Portable) Date of Exam: 04/26/25 Exam# [id number] Ordering Dr: Husam Cohen DO PROCEDURE: CHEST 1 VIEW (PORTABLE) 04/26/2025 REASON FOR EXAM: TRAUMA TECHNIQUE: Frontal view of the chest. COMPARISON: Portable chest, 04/10/2022. FINDINGS: There is a benign calcified granuloma in the lower lobe of the right lung. There are benign calcified left hilar lymph nodes. The heart size is normal. There is calcific vascular disease of the thoracic aorta. Pulmonary vascular pattern is normal. The visualized upper abdominal bowel gas pattern is normal. There are no acute bonyabnormalities. RAD/Chest 1 View (Portable) IMPRESSION: No evidence of acute cardiopulmonary pathology. Reading Location: [id number] CC: Dr. Husam Haynes DO; Dr. Eugenio Mayen DO ~ Building Construction Foreman: Signed [facility] Work Phone: [phone] Radiology Diagnostic study note [facility] Imaging Services [address] [place] [id number] Spine Thoracic without Contras MR#: [id number] Acct: [id number] Name: WINSTON MARI Rep #: [id number] : 1955 M 70 From: Pilo Bocanegra MD PCP: Dr. Eugenio Mayen DO Status: REG ER Study:Spine Thoracic without Contras Date of Exam: 04/26/25 Exam# [id number] Ordering Dr: Husam Cohen DO PROCEDURE: SPINE THORACIC WITHOUT CONTRAS 04/26/2025 REASON FOR EXAM: TRAUMA TECHNIQUE: SPINE THORACIC WITHOUT CONTRAS Coronal and Sagittal reconstruction series were provided. One or more dose reduction techniques were used (e.g., Automated exposure control, adjustment of the mA and/or kV according to patient size, use of iterative reconstruction technique). RADIATION DOSE SUMMARY: CTDlvol: 774.54 mGy DLP: 19.22 mGycm COMPARISON: Thoracic spine, 04/10/2022. FINDINGS: There are findings of DISH in the mid and lower thoracic spine. There is rsep-vy-efsmuduf multilevel degenerative disc disease of the mid and lower thoracic spine. There is mild compression of the superior endplates of T6 and T9 not significantly changed. There is compression of the superior endplate of L2, which was not present previously and was discussed in detail on the CT lumbar report of this same day. There is calcific vascular disease of the thoracic aorta and coronary arteries. There is a benign calcified left hilar lymph node. There is moderate upper lobe predominant emphysema with both centrilobular and paraseptal components. There is a soft tissue density nodule in the lower lobe of the right lung which was present on the previous exam. CT/Spine Thoracic without Contras IMPRESSION: 1. Mild compression of the superior endplate of T6 and T9, chronic. 2. No evidence of acute injury to the thoracic spine. 3. Other findings as noted. Reading Location: [id number] CC: Dr. Husam Haynes DO; Dr. Eugenio Mayen DO ~ Building Construction Foreman: Signed [facility] Work Phone: [phone] 181-843807-06-2025 Radiology Diagnostic study note [facility] Imaging Services [address] [place] [id number] Wrist min 3 Views MR#: [id number] Acct: [id number] Name: WINSTON MARI Rep #: [id number] : 1955 M 70 From: Pilo Bocanegra MD PCP: Dr. Eugenio Mayen DO Status: REG ER Study:Wrist min 3 Views Date of Exam: Exam# [id number] Ordering Dr: Husam Cohen DO PROCEDURE: WRIST MIN 3 VIEWS 04/26/2025 REASON FOR EXAM: PAIN TECHNIQUE: WRIST MIN 3 VIEWS COMPARISON: 03/19/2019. FINDINGS: There is no evidence of fracture or dislocation. There is multifocal arthropathy of the left wrist most severe at the radiocarpal joint. RAD/Wrist min 3 Views IMPRESSION: 1. No evidence of fracture or dislocation. 2. Multifocal arthropathy. Reading Location: [id number] CC: Dr. Husam Haynes DO; Dr. Eugenio Mayen DO ~ Building Construction Foreman: Signed [facility] Work Phone: [phone] 353-708607-06-2025 Radiology Diagnostic study note [facility] Imaging Services [address] [place] [address] Hips B/L min 2 views w/ Pelvis MR#: [id number] Acct: [id number] Name: WINSTON MARI Rep #: [id number] : 1955 M 70 From: Pilo Bocanegra MD PCP: Dr. Eugenio Mayen DO Status: REG ER Study:Hips B/L min 2 views w/ Pelvis Date of Exam: 04/26/25 Exam# [id number] Ordering Dr: Husam Cohen DO PROCEDURE: HIPS B/L MIN 2 VIEWS W/ PELVIS 04/26/2025 REASON FOR EXAM: FALL TECHNIQUE: HIPS B/L MIN 2 VIEWS W/ PELVIS COMPARISON: Pelvis and left hip, 02/11/2023 FINDINGS: The bony pelvis is intact. There is degenerative disc disease, L3-4 through L5- S1. The SI joints are normal. AP and lateral views of the right hip demonstrate no evidence of fracture or dislocation. There is no significant joint space abnormality. The periarticular soft tissues are normal. Frontal and lateral views of the left hip demonstrate no evidence of fracture ordislocation. There is a stable calcification in the soft tissues lateral to the femoral head. RAD/Hips B/L min 2 views w/ Pelvis IMPRESSION: 1. Normal bilateral hips. 2. Other findings as noted. Reading Location: [id number] CC: Dr. Husam Haynes DO; Dr. Eugenio Mayen DO ~ Building Construction Foreman: Signed [facility] Work Phone: [phone] Radiology Diagnostic study note [facility] Imaging Services [address] [place], [place] [id number] Shoulder min 2 Views MR#: [id number] Acct: [id number] Name: WINSTON MARI Rep #: [id number] : 1955 M 70 From: Pilo Bocanegra MD PCP: Dr. Eugenio Mayen DO Status: REG ER Study:Shoulder min 2 Views Date of Exam: 04/26/25 Exam# [id number] Ordering Dr: Husam Cohen DO PROCEDURE: SHOULDER MIN 2 VIEWS 04/26/2025 REASON FOR EXAM: PAIN TECHNIQUE: SHOULDER MIN 2 VIEWS COMPARISON: Left shoulder 04/04/2025 FINDINGS: There is no evidence of acute fracture or dislocation. There is a healed fracture with deformity ofthe mid femoral shaft. There is moderate arthritis of the acromioclavicular joint and mild arthritis ofthe glenohumeral joint. There is cranial migration of the humeral head consistent with rotator cuff pathology. RAD/Shoulder min 2 Views IMPRESSION: 1. No evidence of acute fracture or dislocation. 2. Arthritis of the acromioclavicular and glenohumeral joints. 3. 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 Reading Location: [id number] CC: Dr. Husam Haynes DO; Dr. Eugenio Mayen DO ~ Building Construction Foreman: Signed [facility] Work Phone: [phone] Radiology Diagnostic study note [facility] Imaging Services [address] [place] [address] Spine Cervical without Contras MR#: [id number] Acct: [id number] Name: WINSTON MARI Rep #: [id number] : 1955 M 70 From: Pilo Bocanegra MD PCP: Dr. Eugenio Mayen DO Status: REG ER Study:Spine Cervical without Contras Date of Exam: 04/26/25 Exam# [id number] Ordering Dr: Husam Cohen DO PROCEDURE: SPINE CERVICAL WITHOUT CONTRAS 04/26/2025 REASON FOR EXAM: TRAUMA TECHNIQUE: SPINE CERVICAL WITHOUT CONTRAS Coronal and Sagittal reconstruction series were provided. One or more dose reduction techniques were used (e.g., Automated exposure control, adjustment of the mA and/or kV according to patient size, use of iterative reconstruction technique. RADIATION DOSE SUMMARY: CTDlvol: 19.48 mGy DLP: 392.78 mGycm COMPARISON: Cervical spine, 11/25/2024. FINDINGS: There is maintenance of the normal cervical lordosis. There are no fractures orsubluxations. There is moderate arthritis of the atlantodental joint. There is degenerative disc disease C4-5, C5-6 and C6-7. There is multilevel facet arthropathy. There is degenerative grade 1 anterolisthesis of C7 on T1. There is a calcification within the nuchal ligament at the C3 through C5 levels consistent with remote trauma. There are no soft tissue abnormalities of the neck. There is calcific vascular disease of both carotid bifurcations. There is moderate emphysema in both lung bases with both centrilobular and paraseptal components. CT/Spine Cervical without Contras IMPRESSION: 1. Multilevel degenerative disc disease as described. 2. Multilevel facet arthropathy with degenerative grade 1 anterolisthesis C7 onT1. 3. Other findings as noted. No significant change. Reading Location: [id number] CC: Dr. Husam Haynes DO; Dr. Eugenio Mayen DO ~ Building Construction Foreman: Signed [facility] Work Phone: [phone] Radiology Diagnostic study note [facility] Imaging Services [address] [place], [place] [address] Spine Lumbar without Contrast MR#: [id number] Acct: [id number] Name: WINSTON MARI Rep #: [id number] : 1955 M 70 From: Pilo Bocanegra MD PCP: Dr. Eugenio Mayen DO Status: REG ER Study:Spine Lumbar without Contrast Date of E xam: 04/26/25 Exam# [id number] Ordering Dr: Husam Cohen DO PROCEDURE: SPINE LUMBAR WITHOUT CONTRAST 04/26/2025 REASON FOR EXAM: TRAUMA TECHNIQUE: SPINE LUMBAR WITHOUT CONTRAST Coronal and Sagittal reconstruction series were provided. One or more dose reduction techniques were used (e.g., Automated exposure control, adjustment of the mA and/or kV according to patient size, use of iterative reconstruction technique COMPARISON: 2 lumbar spine, 12/22/2024. RADIATION DOSE SUMMARY: CTDlvol: 20.98 mGy DLP: 772.30 mGycm FINDINGS: There are stable mild compressions of the superior endplates of L2, L4 and L5. There is degenerative disc disease, L4-5 and L5-S1. There is multilevel facet arthropathy without spondylolisthesis. There is calcific vascular disease of the abdominal aorta. There is ectasia of the infrarenal abdominal aorta without aneurysm. There is a cortical cyst in the interpolar region of the right kidney. CT/Spine Lumbar without Contrast IMPRESSION: 1. Chronic mild compression of the superior endplates of L2, L4 and L5. 2. Degenerative disc disease as described. 3. Other findings as noted. Reading Location: [id number] CC: Dr. Husam Haynes DO; Dr. Eugenio Mayen DO ~ Building Construction Foreman: Signed [facility] Work Phone: [phone] Radiology Diagnostic study note [facility] Imaging Services [address] [place] [address] [id number] Brain/Head without Contrast MR#: [id number] Acct: [id number] Name: WINSTON MARI Rep #: [id number] : 1955 M 70 From: Pilo Bocanegra MD PCP: Dr. Eugenio Mayen DO Status: REG ER Study:Brain/Head without Contrast Date of Exa m: 04/26/25 Exam# [id number] Ordering Dr: Husam Cohen DO PROCEDURE: BRAIN/HEAD WITHOUT CONTRAST 04/26/2025 REASON FOR EXAM: TRAUMA TECHNIQUE: BRAIN/HEAD WITHOUT CONTRAST Coronal and Sagittal reconstruction series were provided. One or more dose reduction techniques were used (e.g., Automated exposure control, adjustment of the mA and/or kV according to patient size, use of iterative reconstruction technique. RADIATION DOSE SUMMARY: CTDlvol: 65.40 mGy DLP: 1208.54 mGycm COMPARISON: CT head without contrast, 11/25/2024. FINDINGS: Status post left occipital craniotomy. There is no evidence of acute intracranial hemorrhage or infarction. There are no abnormal intracranial masses or mass effects. The ventricular system and basilar cisterns are unremarkable. The skull base and calvarium are normal. There is a mucous retention cyst in the left frontal sinus. There is mucosal thickening of both maxillary sinuses in the ethmoidal air cells. The mastoid air cells are unremarkable. The intraorbital contents are normal. The visualized extracranial soft tissues are normal. CT/Brain/Head without Contrast IMPRESSION: 1. No evidence of acute intracranial pathology. 2. Status post left occipital craniotomy. 3. Other findings as noted.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 substitute for professional medical care. Always follow your healthcare professional's instructions. [facility]05-05-2025 Miscellaneous Notes* Patient Education - Go Rice MD - 02/23/2025 6:05 AM EDT Images from the original note were not included. 52149 Self-Care for Low Back Pain Most people [...] wrapped. Never sleep on a heating pad. Osrs-kea-kzslzsq medicine can help control pain and swelling. [...] symptoms develop Last Reviewed Date: 2024 00:00:00 2083-7628 [employer]. All rights reserved. This information is not intended as a substitute for professional medical care. Always follow your healthcare professional's instructions. documented in this [facility]05-05-2025 Physician Emergency department Note* Go Rice [...] Rate 57 bpm RR INTERVAL 1,056 ms [place] Interval 196 ms QRSD Interval 80 ms QT Interval 396 ms QTc Interval 385 ms QRS [place] -20 deg T Wave [place] 61 deg REPORT - NORMAL ECG - REPORT Sinus rhythm Interpreting Phys Confirmed by: Go Rice) 23-Feb-2025 04:31:11 RADIOLOGY I have personally visualized the images and my interpretation is no acute chest abnormality I reviewed the radiologist interpretation: Results for orders placed or performed during the hospital encounter of 02/23/25 [place] [id number] [place] [id number] 02/23/2025 5:51 AM Reason for exam:leg pain [...] XR-CHEST PORTABLE STAT Narrative XR-CHEST PORTABLE STAT [id number] 02/23/2025 5:04 AM History: chest pain History: [...] 4 mg (4 mg IV Push Given 02/23/253) oxyCODONE-acetaminophen (PERCOCET) 5-325 mg per tablet 1 [...] with primary care physician. Electronically signed by: oG Rice MD, 02/23/2025 [1] Social History Socioeconomic History Marital status: Tobacco Use Smoking status: Former Types: Cigarettes Passive exposure: Past Smokeless tobacco: Never Substance and Sexual Activity Alcohol use: Not Currently Drug use: Never Sexual activity: Not Currently Social Drivers of Health Financial Resource Strain: Low Risk (02/12/2023) Received from [facility] Overall Financial Resource Strain (CARDIA) Difficulty of Paying Living Expenses: Not hard at all Food Insecurity: No Food Insecurity (02/12/2023) Received from [facility] Hunger Vital Sign Worried About Running Out of Food in the Last Year: Never true Ran Out of Food in the Last Year: Never true Transportation Needs: No Transportation Needs (02/12/2023) Received from [facility] PRAPARE - Transportation Lack of Transportation (Medical): No Lack of Transportation (Non-Medical): No Housing Stability: Low Risk (02/12/2023) Received from [facility] Housing Stability Vital Sign Unable to Pay for Housing in the Last Year: No Number of Places Lived in the Last Year: 1 Unstable Housing in the Last Year: No Go Rice MD 02/23/25 0607 [facility]05-05-2025 Emergency department Note* ISRAEL Espinoza - 02/23/2025 4:25 AM EDT Pt states they are in 10/10 pain. Leela RN notified [facility]05-05-2025 Emergency department Triage note* Sandy Sifuentes [...] which also started approx an hour ago. [facility]05-01-2025 Hospital Discharge instructions Additional Instructions Ice to your shoulder. Motrin and Tylenol for pain. You absolutely must call and get into see a orthopedic physician for further evaluation of your shoulder. My concern is you either have a torn rotator cuff which you have had for a while. Or a frozen shoulder. This needs further evaluation. You may need an MRI of your shoulder. You may need surgery.[facility] Work Phone: 1(467) 906-979303-22-2025 Note. MICRO - Microbiology PROCEDURE: Urine Culture [...] Locations *1: This test was performed at: [address], [facility] , [facility]03-15-2025 Discharge summary [facility] Medical Records Department [address] [place] [id number] Emergency Department Summary 01/03/25 MR#: [id number] Acct: [id number] Name: WINSTON MARI Rep #:[id number] : 1955 69 From: Irene PRINCE PCP: [...] penile discharge. No fever chills or vomiting. [facility] Medical History Left rotator cuff tear Anemia GERD (gastroesophageal reflux disease) Left shoulder pain Hemorrhoid Epilepsy Sciatica High cholesterol Home Medications ?Medication ?Instructions ?Recorded ?Last Taken ?Type gabapentin 300 mg capsule 300 mg PO 4X/DAY 04/02/22 Un known History hydrocortisone acetate 25 mg 25 mg [place] QHS #12 ea 04/27 Unknown Rx rectal [...] AdvReac Rash Verified 01/03/25 16:39 hydrocodone (From [place]) AdvReac Upset Verified 01/03/25 16:39 Stomach ibuprofen [...] Clarity Clear Urine pH 7.0 Ur Specific [place] 1.010 Urine Protein Negative Urine Glucose (UA) [...] Clarity Clear Urine pH 7.0 Ur Specific [place] 1.010 Urine Protein Negative Urine Glucose (UA) [...] acetate [Anusol-HC] 25 mg suppository 25 mg [place] QHS Qty: 12 0RF atorvastatin [Lipitor] 40 [...] DO [Primary Care Provider] - Print Language: Azerbaijani What to do if you have Problems For any increased pain, shortness of breath, bleeding, nausea or vomiting, chestpain, or any unexpected problems, contact your Primary Care Provider. Call [facility] ([phone]) or report tothe closest Emergency Room. Call 911 if necessary. 01/03/25 184 Cosigner Signature (if applicable): 01/03/25 1836 CC: Dr. Eugenio Mayen DO ~ Signed [facility]03-15-2025 Discharge summary Author Irene Franks [facility] Note Date/Time January 03, 2025 6:4 2pm [facility] Medical Records Department [address] [place] [address] Emergency Department Summary 01/03/25 MR#: [id number] Acct: [id number] Name: WINSTON MARI Rep #:[id number] : 1955 69 From: Irene PRINCE PCP: Dr. Eugenio Mayen DO Status:REG ER Location: ED HPI <NIKI [...] penile discharge. No fever chills or vomiting. [facility] <NIKI Bird - Last Filed: 01/03/25 18:42> [facility] Medical History Left rotator cuff tear Anemia GERD (gastroesophageal reflux disease) Left shoulder pain Hemorrhoid Epilepsy Sciatica High cholesterol Home Medications ?Medication ?Instructions ?Recorded ?Last Taken ?Type gabapentin 300 mg capsule 300 mg PO 4X/DAY 04/02/22 Un known History hydrocortisone acetate 25 mg 25 mg [place] QHS #12 ea 04/27 Unknown Rx rectal [...] AdvReac Rash Verified 01/03/25 16:39 hydrocodone (From [place]) AdvReac Upset Verified 01/03/25 16:39 Stomach ibuprofen [...] <NIKI Bird - Last Filed: 01/03/25 18:42> [facility] MDM Narrative Medical decision making narrative: 69-year-old [...] Clarity Clear Urine pH 7.0 Ur Specific [place] 1.010 Urine Protein Negative Urine Glucose (UA) [...] Mari MD - Last Filed: 01/03/25 18:36> [facility] MDM Narrative Medical decision making narrative: I [...] Clarity Clear Urine pH 7.0 Ur Specific [place] 1.010 Urine Protein Negative Urine Glucose (UA) [...] acetate [Anusol-HC] 25 mg suppository 25 mg [place] QHS Qty: 12 0RF atorvastatin [Lipitor] 40 [...] DO [Primary Care Provider] - Print Language: Azerbaijani What to do if you have Problems For any increased pain, shortness of breath, bleeding, nausea or vomiting, chestpain, or any unexpected problems, contact your Primary Care Provider. Call [facility] ([phone]) or report to the closest Emergency Room. Call 911 if necessary. 01/03/25 184 <Electronically signed by Irene PRINCE> Cosigner Signature (if applicable): 01/03/25 183 <Electronically signed by Ken Mari MD> CC: Dr. Eugenio Mayen DO ~ Signed [facility] Work Phone: 1(307) 337-902103-13-2025 Radiology Diagnostic study note [facility] Imaging Services [address], [place] [address] Abdomen/Pelvis without Cont MR#: [id number] Acct: [id number] Name: WINSTON MARI Rep #: [id number] : 1955 M 69 From: Saranya Del Cid MD PCP: Dr. Eugenio Mayen DO Status: REG ER Study:Abdomen/Pelvis without Cont Date of Exa m: 01/01/25 Exam# [id number] Ordering Dr: Dean Del Cid DO EXAM: [...] Colonic diverticulosis without acute diverticulitis. Reading Location: [facility] CC: Dr. Eugenio Mayen DO; Dr. Dean Del Cid DO ~ Building Construction Foreman: Signed [facility]02-24-2025 Evaluation note* Diagnosis Onset Date Resolution Status Admit Date Left rotator cuff tear acute Fe bruary 2024 10:45am Left shoulder pain acute Februa ry 2024 10:45am [facility] Work Phone: [phone] Evaluation note* Diagnosis Onset Date Resolution Status Admit Date Left rotator cuff tear acute Fe bruary 2024 10:45am Left shoulder pain acute Februa ry 2024 10:45am Degenerative disc disease, lumbar acute March 19, 2025 9 :49am [facility] Work Phone: 1(806) 743-344501-23-2025 Evaluation note* Diagnosis Onset Date Resolution Status Admit Date Left shoulder pain acute Januar y 2024 1:55pm Degenerative disc disease, lumbar acute November 18 1:21pm Compression fx, lumbar spine inactiv e November 18, 2024 1:21pm Foot drop, left noneactive October 232024 1:21pm Left rotator cuff tear acute Fe bruary 2024 10:45am Left shoulder pain acute Februa 2024 10:45am [facility] Work Phone: 1(294) 157-537311-01-2023 NoteHNO ID: [id number] Author: Hamilton Agarwal MD Service: ? Author Type: Anesthesiologist Type: Progress Notes Filed: 08/22/2023 8:50 AM Note Text: Jerilyn was used to dictate this note and [...] times a day from Dr. Mayen in [place]. As above, note from Dr. Alomnte indicates that he was planning on performing [...] past in at a pain center in [place]. Patient indicates he decided against kyphoplasty. He is not following up with neurosurgery. Patient absolutely does not want any spinal injections again. He has agreed to try a TENS unit. There is a new TENS unit technology from a company called [employer]. This was prescribed for him. Gave him the phone number that way if he is not contacted within the next week, he has a phone number to call. He will follow-up with us on a as needed basis. We could consider IV lidocaine infusions in the future. Patient agrees to the above.11-01-2023 History of Present illness Narrative* Hamilton Agarwal [...] times a day from Dr. Mayen in [place]. As above, note from Dr. Almonte indicates [...] past in at a pain center in [place]. Patient indicates he decided against kyphoplasty. He is not following up with neurosurgery. Patient absolutely does not want any spinal injections again. He has agreed to try a TENS unit. There is a new TENS unit technology from a company called [employer]. This was prescribed for him. Gave him the phone number that way if he is not contacted within the next week, he has a phone number to call. He will follow-up with us on a as needed basis. We could consider IV lidocaine infusions in the future. Patient agrees to the above. documented in [facility] Discharge summary Author Gene Cristina [facility] August 09, 2023 3:24pm Note Date/Time August 09, 2023 2 :37pm [facility] Medical Records Department [address] [place] [address] Emergency Department Summary 08/09/23 MR#: [id number] Acct: [id number] Name: WINSTON MARI Rep #:[id number] : 1955 68 From: Gene Cristina MD PCP: Dr. Eugenio Mayen, DO Status:REG [...] and L4 fracture. He was transferred to [facility]. They fitted him for a TLSO [...] to walk. He never hit his head. [facility] Medical History Epilepsy Hemorrhoid High cholesterol [...] 25 mg rectal suppository (Anusol-HC) 25 mg [place] QHS #12 ea 04/27/22 [Rx Last Taken [...] AdvReac Rash Verified 05/31/23 10:23 hydrocodone [From [place]] AdvReac Upset Verified 05/31/23 10:23 Stomach ibuprofen [...] Signed: Wesley Hunt MD at 13:13 EDT Reading Location ID and State: [facility] / [place] Tel , Service support , Discharge Plan Triage Chief Complaint: Back [...] acetate [Anusol-HC] 25 mg suppository 25 mg [place] QHS Qty: 12 0RF atorvastatin [Lipitor] 40 [...] your Primary Care Provider. Call [facility] ([phone]) or report to the closest Emergency Room. Call 911 if necessary. 08/09/23 9907 <Electronically signed by Gene Cristina MD> Cosigner Signature (if applicable): CC: Dr. Eugenio Mayen DO ~ Signed [facility] Work Phone: 1(480) 400-464108-02-2023 Miscellaneous Notes* Telephone Encounter - Donna Phillip [...] to proceed with surgery. documented in this [facility]Wilson [facility] Hospital07-17-2023 NoteHNO ID: [id number] Author: Pro Almonte MD Service: ? Author Type: Physician Type: Progress Notes Filed: 05/10/2023 11:35 AM Note Text: NEUROSURGERY FOLLOW UP OFFICE NOTE Pro Almonte MD Date of visit: May 10, 2023 Patient Name: Mr.Johnnie Paul Mari Date of : 1955 Current Age: [age] year old Sex: male MRN/E# [id number] Last Office Visit: 03/29/2023 Chief Complaint: Patient presents with: lumbar fracture follow up HISTORY OF PRESENT ILLNESS : Winston Mari is a 68 year old male with a past medical history of arthritis, epilepsy, high cholesterol, and sciatica. He is a former smoker. The patient presented to [facility] ED on 02/11/2023 as a transfer from [facility] after falling off a roof. Imaging revealed [...] BRAIN SURGERY HX OTHER ANEURYSM REPAIR 1983 [facility]- Dr. Simpson- Brain Aneurysm FAMILY HISTORY Problem [...] pain, red (more content not included)...[facility]07-10-2023 NoteHNO ID: [id number] Author: RT Lonnie(R) Service: ? Author Type: Technologist Type: Progress Notes Filed: 04/30/2023 1:22 PM Note Text: Radiology Service Progress Note PATIENT NAME: iWnston Mari DATE OF SERVICE: April 30, 2023 [...] IV DATA: Not applicable SIGNED BY: RT Lonnie(R) April 30, 2023 1:22 [facility]07-10-2023 Miscellaneous Notes* Telephone Encounter - Irene Quintero MA - 04/30/2023 1:32 PM EDT At appointment time, 1:30p, pt was not checked in. Went to lobby/waiting room and hallway to call for pt. Pt was not in either location. documented in this encounterWilson [facility] Hospital07-06-2023 Miscellaneous Notes* Telephone Encounter - Ena Beard Ma - 04/26/2023 12:59 PM EDT Attempted to contact patient via telephone regarding upcoming NEW patient appointment with Dr. Barth 04/30/23. [facility] relaying the message below: This is the [facility] calling regarding your upcoming appointment with Dr. Levi. To avoid a delay in your care, please bring any imaging (such as MRI, CT, XR, etc.) that have been done outside of the [facility] on a disk to be viewed [...] or reschedule your appointment, please contact the [place] [facility] at [phone]. documented in this encounterWilson [address] Hospital06-08-2023 NoteHNO ID: [id number] Author: Pro Almonte MD Service: ? Author Type: Physician Type: Progress Notes Filed: 03/29/2023 10:08 AM Note Text: NEUROSURGERY FOLLOW UP OFFICE NOTE Pro Almonte MD Date of visit: March 29, 2023 Patient Name: Mr.Johnnie Paul Mari Date of : 1955 Current Age: [age] year old Sex: male MRN/E# [id number] Last Office Visit: Visit date not found Chief Complaint: Patient presents with: Low Back Pain Fracture - Lumbar Vertebra HISTORY OF PRESENT ILLNESS : Winston Mari is a 68 year old male with a past medical history of arthritis, epilepsy, high cholesterol, and sciatica. He is a former smoker. The patient presented to [facility] ED on 02/11/2023 as a transfer from [facility] after falling off a roof. Imaging revealed [...] BRAIN SURGERY HX OTHER ANEURYSM REPAIR 1983 [facility]- Dr. Simpson- Brain Aneurysm FAMILY HISTORY Problem [...] 120/68 P (more content not included)...[facility] 03-29-2023 History of Present illness Narrative* Pro Almonte MD - 03/29/2023 10:00 AM EDT NEUROSURGERY FOLLOW UP OFFICE NOTE Pro Almonte MD Date of visit: March 29, 2023 Patient Name: Mr.Johnnie Paul Mari Date of : 1955 Current Age: [age] year old Sex: male MRN/E# [id number] Last Office Visit: Visit date not found Chief Complaint: Patient presents with: Low Back Pain Fracture - Lumbar Vertebra HISTORY OF PRESENT ILLNESS : Winston Mari is a 68 year old male with a past medical history of arthritis, epilepsy, high cholesterol, and sciatica. He is a former smoker. The patient presented to [facility] ED on 02/11/2023 as a transfer from [facility] after falling offa roof. Imaging revealed evidence [...] BRAIN SURGERY HX OTHER ANEURYSM REPAIR 1983 [facility]- Dr. Simpson- Brain Aneurysm FAMILY HISTORY Problem [...] plan. Pro Almonte MD Department of Neurosurgery [facility] This note was partially generated using Knowable voice recognition system, and there may be some incorrect words, spellings, and punctuation that were not noted in checking the note before saving. documented in this encounterWilson [facility] Hospital06-06-2023 Miscellaneous Notes* Telephone Encounter - Donna Phillip RN - 03/27/2023 9:18 AM EDT Attempted to call patient at [phone]. Incorrect number listed in patient chart. Donna Phillip RN documented in this encounterWilson Street Hospital06-05-2023 Miscellaneous Notes* Telephone Encounter - Donan Phillip RN - 03/26/2023 2:48 PM EDT Attempted to reach patient and his brother to notify them that Winston needs x- rays completed before his appointment. Brothers' phone number is disconnected. Number listed for Winston leads to [facility]. Will attempt to contact tomorrow again to see if this could potentially be patient's place of work? Otherwise no other contact info listed for patient. Donna Phillip RN documented in this encounterWilson [facility] Hospital04-25-2023 NoteHNO ID: [id number] Author: Xuan Rivera RN Service: Care Management [...] 13, 2023 TIME: 11:40 AM PAGER/CONTACT #: [phone] NoteHNO ID: [id number] Author: Prabhakar Ramirez PA-C Service: General Surgery Author Type: Physician Veneer Layer Type: Progress Notes Filed: 02/13/2023 9:27 AM Note Text: Trauma Surgery Progress Note SERVICE DATE: 02/13/2023 Trauma Service Pager: For questions or concerns Mon-Fri 6a-5p please page [phone]. After 5pm and on Weekends and Holidays, please page [phone] if in ICU or [phone] if on RNF. SUBJECTIVE: NAEON. Pain generally [...] kg/m? O2 Therapy: Room Air IANDO: Date 02/12/23699 - 02/13/23 0602/13/23699 - 02/14/23 0659 Shift 7864-3885 1781-9805 1777-7049 24 Hour Total 0675-7190 0038-6341 9442-8910 24 Hour Total INTAKE PO 360 120 480 PO 360 120 480 Shift Total 360 120 480 OUTPUT Urine 650 8541 309 2611 Void (ml) 650 8807 069 0182 Shift Total 650 0191 536 5297 Weight (kg) 68 68 68 68 68 [...] 3.9 3.8 CHLOR 103 104 105 CO2 24 BUN 13 9 8* CREAT 1.06 [...] 02/11/2023 Closed compression fracture of L2 vertebra ([facility]) 02/12/2023 Closed compression fracture of L4 vertebra ([facility]) 02/12/2023 Assessment: 68 year old male s/p fall from roof/ladder on 02/11/2023 (transfer from [facility]) Imaging performed: 02/11/2023 - CT H/N/C/A/P/L-spine, PXR, XR femur (Performed at [facility] prior to transfer) 02/12/2023 - MRI lumbar, [...] Planning: P (more content not included)...[facility]04-25-2023 NoteHNO ID: [id number] Author: Pretty Cardenas MD Service: Pain Management [...] lower back pain. Patient was seen at [facility] ED. CT HNCAPT completed and demonstrated acute [...] Doug Wadsworth MD 25 mg at 02/12/23 184 tamsulosin 0.4 mg cap(s) (FLOMAX) 0.4 mg ORAL DAILY Shira Galarza DO 0.4 mg at 02/12/[address] 40 mg tab(s) (PROTONIX) 40 mg ORAL DAILY (6 AM) Shira Galarza, DO 40 mg at 02/13/23 0641 DULoxetine 30 mg cap(s) (CYMBALTA) 30 mg ORAL BID Shira Galarza, DO 30 mg at 02/12/23 202 acetaminophen 975 mg tab(s) (TYLENOL) 975 mg ORAL QID Shira Galarza, DO 975 mg at 02/13/23 0641 NaCl 0.9% iv flush bag 20 mL INTRAVENOUS PRN Shira Galarza, DO ondansetron 4 mg tab(s) (ZOFRAN) 4 mg ORAL q 6 H PRN Shira Galarza, DO 4 mg at 02/13/23 0025 Or ondansetron (PF) 4 mg injection (ZOFRAN) 4 mg INTRAVENOUS q 6 H PRN Shira Galarza, DO oxyCODONE IR 5-10 mg tab(s) (ROXICODONE) 5-10 mg ORAL q 6 H PRN Shira Galarza, DO 10 mg at 02/13/23 0641 NaCl [...] 1 CAPSU (more content not included)...[facility]04-24-2023 NoteHNO ID: [id number] Author: Prabhakar Ramirez PA-C Service: General Surgery Author Type: Physician Veneer Layer Type: Progress Notes Filed: 02/12/2023 11:33 AM Note Text: Trauma Surgery Progress Note SERVICE DATE: 02/12/2023 Trauma Service Pager: For questions or concerns Mon-Fri 6a-5p please page [phone]. After 5pm and on Weekends and Holidays, please page [phone] if in ICU or [phone] if on RNF. SUBJECTIVE: NAEON. Patient notes [...] kg/m? O2 Therapy: Room Air IANDO: Date 02/11/23699 - 02/12/23 0659 02/12/23699 - 02/13/23 0659 Shift 9381-5684 0164-8484 1086-0318 24 Hour Total 4215-2300 8839-8931 3140-7922 24 Hour Total INTAKE Shift Total OUTPUT Urine 013 700 8584 650 650 Void (ml) 983 044 6006 650 650 Shift Total 495 538 7289 650 650 Weight (kg) 68 68 68 [...] fall from roof/ladder on 02/11/2023 (transfer from [facility]) Imaging performed: 02/11/2023 - CT H/N/C/A/P/L-spine, PXR, XR femur (Performed at [facility] prior to transfer) 02/12/2023 - MRI lumbar [...] SIGNATURE: Prabhakar Ramirez PA-C PATIENT NAME: Winston Paul Mari DATE: 02/12/2023 TIME: 11:17 AM Pager: see below Trauma Service Pager: For questions o (more content not included)...[facility] 01-13-[address] Sweeney [facility] January 14, 2023 12:17am Note Date/Time January 13, 2023 9:3 6pm [facility] Medical Records Department [address] [place] [address] Emergency Department Summary 01/13/23 MR#: [id number] Acct: [id number] Name: WINSTON MARI Rep #:[id number] : 1955 67 From: Mark Sweeney DO [...] states there is also concern for malignancy. [facility] Medical History Epilepsy Hemorrhoid High cholesterol [...] 25 mg rectal suppository (Anusol-HC) 25 mg [place] QHS #12 ea 04/27/22 [Rx Last Taken Unknown] polyethylene glycol 3350 17 gram/dose oral powder (Miralax) 17 g PO DAILY #119 grams 04/27/22 [Rx Last Taken Unknown] atorvastatin 40 mg tablet (Lipitor) 40 mg PO QHS 01/13/23 [History Last Taken Unknown] Allergy/AdvReac Type Severity Reaction Status Date / Time adhesive tape [tape] AdvReac Rash Verified 01/13/23 20:46 hydrocodone [From [place]] AdvReac Upset Verified 01/13/23 20:46 Stomach ibuprofen [...] acetate [Anusol-HC] 25 mg suppository 25 mg KY QHS Qty: 12 0RF atorvastatin [Lipitor] 40 mg Tablet 40 mg PO QHS Primary Care Provider: Eugenio Mayen Referrals: Eugenio Mayen DO [Primary Care Provider] - Disposition Disposition: Home, Self Care What to do if you have Problems For any increased pain, shortness of breath, bleeding, nausea or vomiting, chestpain, or any unexpected problems, contact your Primary Care Provider. Call [facility] ([phone]) or report to the closest Emergency Room. Call 911 if necessary. 01/14/23 0017 <Electronically signed by Mark Sweeney DO> Cosigner Signature (if applicable): CC: Dr. Eugenio Mayen DO ~ Signed [facility] Work Phone: [phone]) 706-251702-24-2023 Note ORIGINAL EXAMINATION: BONE DENSITOMETRY 12/15/2022 1:58 [...] Sign Date: 12/15/2022 4:34:29 PM Ordering Provider: [facility]02-24-2023 Note ORIGINAL EXAMINATION: BONE DENSITOMETRY 12/15/2022 [...] Date: 12/15/2022 4:34:29 PM Ordering [facility] Note HNO ID: [id number] Author: Hubert Jett MD Service: ? Author [...] physician was referred to a surgeon in [place]. He had been prescribed medications that he is uncertain what they were along with an ointment that was made at [facility] which she stated helped his symptoms [...] BRAIN SURGERY HX OTHER ANEURYSM REPAIR 1983 [facility]- Dr. Simpson- Brain Aneurysm CURRENT MEDICATIONS: Current [...] entered by the nurse and reviewed by mo Nursing Notes: Ana Maria Padilla LPN 09/19/2022 [...] and denies bloody urine. (more content not included)...[facility]11-30-2022 History of Present illness Narrative* [...] physician was referred to a surgeon in [place]. He had been prescribed medications that he is uncertain what they were along with an ointment that was made at [facility] which she stated helped his symptoms [...] BRAIN SURGERY HX OTHER ANEURYSM REPAIR 1983 [facility]- Dr. Simpson- Brain Aneurysm CURRENT MEDICATIONS: Current [...] entered by the nurse and reviewed by mo Nursing Notes: Ana Maria Padilla LPN 09/19/2022 [...] needed. Hubert Jett MD documented in this encounterWilson [facility] Hospital11-29-2022 Instructions* Patient Instructions* Hubert Jett MD - 09/19/2022 5:00 PM EST The following instructions are important for you related to your office visit today with the [facility] General Surgeons. INSTRUCTIONS FOR AN ANAL FISSURE [...] you should contact our office immediately @ [phone] and ask to be transferred to the General Surgery department. documented in this [facility]Wilson [address] Hospital11-29-2022 Nurse Note* Ana Maria Padilla LPN - 09/19/2022 4:02 PM EST REVIEW OF [...] Ana Maria Padilla LPN documented in this encounterWilson [address] Hospital10-03-2022 Note ORIGINAL EXAMINATION: TWO XRAY VIEWS OF THE RIGHT PSSBMVQO81/3/2022 11:46 am XR right shoulder three views [...] Sign Date: 07/24/2022 11:18:45 PM Ordering Provider: [facility]10-03-2022 Note ORIGINAL EXAMINATION: TWO XRAY VIEWS OF THE RIGHT FEUBYDYR87/3/2022 11:46 am XR right shoulder three views [...] Sign Date: 07/24/2022 11:18:45 PM Ordering Provider: [facility]06-12-2022 Hospital Discharge instructions Patient Education 04/02/2022 08:42:19 [...] are needed. Resources For more information, contact: [employer], ahma.memberclicks.net or 921-423-8317 [employer], theacpa.org or 194-102-6373 6470-6045 [address] [place] [address], [place] [address]. All rights reserved. This information is not intended as a substitute for professional medical care. Always follow yourhealthcare professional's instructions. Follow Up Care 04/02/2022 08:18:50 With:EUGENIO MAYEN DO Address: [address] [place] [phone]- [phone] When:2-4 days [facility] 05-18-2022 Hospital Discharge instructions* Instructions* Segun Joyner MD - 03/08/2022 Return for abdominal pain/fever or vomiting as that could point to more going on than sciatica; Useyour muscle relaxer as prescribed * Attachments The following attachments cannot be sent through Care Everywhere. * Sciatica (Azerbaijani) [facility] Phone: [phone]) 337-231505-15-2022 Hospital Discharge instructions Patient Education 03/05/2022 12:43:55 [...] prescribed. These can be rented or purchased atmformerly [facility] pharmacies and surgical or orthopedic supply stores. [...] alternate ice and heat. You may use sbvy-vbb-jhrzvly pain medicine to control pain, unless another [...] to put weight on the injured side 4044-5471 [employer]. [address] [place] [address]. All rights reserved. This information is not [...] or swelling over your back or spine 6173-0056 [employer]. [address] [place] [address]. All rights reserved. This information is not intended as a substitute for professional medical care. Always follow [facility] professional's instructions. Follow Up Care 03/05/2022 12:34:31 With:EUGENIO MAYEN DO Address: [address] [place] [address] [place] [address]- [phone] When:2-4 days Comments:Schedule an appointment for follow-up if symptoms or not improving.Limit activity as tolerated.Use ice or cold compresses to painful areas for the next 2 days and warm, moist heat thereafter.Use Tylenol for pain as needed.Use cyclobenzaprine as previously prescribed for muscle pain and spasm as needed.Return to the ED if symptoms worsen. [facility] 05-11-2022 Hospital Discharge instructions Patient Education 03/01/2022 [...] or swelling over your back or spine [phone] [employer]. [address] [place] [address]. All rights reserved. This information is not intended as a substitute for professional medical care. Always follow yourhealthcare professional's instructions. Follow Up Care 03/01/2022 13:28:28 With:Pain management and back doctor Address:Unknown When:2-4 days Comments:Schedule appointment as soon as possibleAvoid pressure to peña sims relafen and tylenol foringrid [facility] 05-08-2022 Hospital Discharge instructions Patient Education 02/26/2022 [...] or legs Numbness in the groin area [phone] [employer]. [address] [place] [address]. All rights reserved. This information is not intended as a substitute for professional medical care. Always follow yourhealthcare professional's instructions. Follow Up Care 02/26/2022 10:36:22 With:EUGENIO MAYEN DO Address: [address] [facility] [place] [address]- [phone] When:2-4 days [facility] 03-12-2022 Hospital Discharge instructions Patient Education 12/31/2021 [...] shoulder or upper arm Fever or chills [phone] [employer]. [address] [place] [address]. All rights reserved. This information is not intended as a substitute for professional medical care. Always follow yourhealthcare professional's instructions. Follow Up Care 12/31/2021 17:21:44 With:EUGENIO MAYEN DO Address: [phone] When:2-4 days [facility] 02-13-2022 Hospital Discharge instructions Patient Education 12/04/2021 [...] shoulder or upper arm Fever or chills [phone] [employer]. [address] [place] [address]. All rights reserved. This information is not intended as a substitute for professional medical care. Always follow yourprem[facility]care professional's instructions. 12/04/2021 11:27:38 Fall, Mechanical Mechanical [...] in vomit, stools (black or red color) [phone] [employer]. [address] [place] [address]. All rights reserved. This information is not intended as a substitute for professional medical care. Always follow yourhealthcare professional's instructions. Follow Up Care 12/04/2021 11:20:21 With:EUGENIO MAYEN DO Address: [phone] When:2-4 days [facility] 11-20-2021 Hospital Discharge instructions Patient Education 09/10/2021 [...] pressure and pain in your lower back. [phone] [employer]. [address] [place] [address], [place] [address]. All rights reserved. This information is not intended as a substitute for professional medical care. Always follow yourhealthcare professional's instructions. 09/10/2021 11:38:24 Back Sprain/Strain Back [...] Numbness in the groin or genital area [id number] [employer]. [address] [place] [address], [place] [address]. All rights reserved. This information is not intended as a substitute for professional medical care. Always follow yourhealthcare professional's instructions. Follow Up Care 09/10/2021 11:27:40 With:EUGENIO MAYEN DO Address: [phone] When:2-4 days [facility] 11-07-2021 Hospital Discharge instructions Patient Education 08/28/2021 [...] or swelling over your back or spine [phone] [employer]. [address] [place] [address], [place] [address]. All rights reserved. This information is not [...] are taking other medicines. You may use [id number] medicine as directed on the bottle to [...] Numbness in the groin or genital area [id number] [employer]. [address] [place] [address]. All rights reserved. This information is not [...] prescribed.Return to the ED if symptoms worsen. [facility] 03-12-2021 Evaluation + Plan note Future Scheduled Tests Laboratory* Lipid Profile 12/31/20 Radiology* XR Shoulder Minimum 2 Views Left 06/21/21 * XR Shoulder Minimum 2 Views Right 06/21/21 * MRI Spine Lumbar w/o Contrast 02/04/21 [facility] 10-15-2020 Evaluation + Plan note Future Appointments Appointment Date:06/10/2025 02:30:00 PM Scheduled Provider: Location:[facility] Appointment Type:GI OV Consult Appointment Date:08/05/2025 10:30:00 AM Scheduled Provider:EUGENIO MAYEN DO Location:[facility] Appointment Type:PC OV Future Scheduled Tests Laboratory* Urine Culture 07/02/24 Radiology* CT Thorax w/o Contrast 01/15/25 * MRI Shoulder w/o Contrast Left 05/01/25 * NM Myocardial Spect Rest/Stress 05/20/25 [facility] Discharge summary Author Micheal Sun [facility] 2024 10:07am Note Date/Time 2024 8:5 1am [facility] Medical Records Department [address] [place] [id number] Emergency Department Summary 02/06/24 MR#: [id number] Acct: [id number] Name: WINSTON MARI Rep #:[id number] : [id number] From: Micheal Sun MD [...] as to what an epinephrine pen is. [facility] Medical History Epilepsy Hemorrhoid High cholesterol Sciatica Home Medications omeprazole 20 mg capsule,delayed release 40 mg PO DAILY 03/23/22 [History Last Taken Unknown] gabapentin 300 mg capsule 300 mg PO 4X/DAY 04/02/22 [History Last Taken Unknown] hydrocortisone acetate 25 mg rectal suppository (Anusol-HC) 25 mg [place] QHS #12 ea 04/27/22 [Rx Last Taken [...] AdvReac Rash Verified 02/06/24 08:35 hydrocodone [From [place]] AdvReac Upset Verified 02/06/24 08:35 Stomach ibuprofen [...] acetate [Anusol-HC] 25 mg suppository 25 mg [place] QHS Qty: 12 0RF atorvastatin [Lipitor] 40 [...] your Primary Care Provider. Call [facility] ([phone]) or report to the closest Emergency Room. Call 911 if necessary. 02/06/24 1007 <Electronically signed by Micheal Sun MD> Cosigner Signature (if applicable): CC: Dr. Eugenio Mayen DO ~ Signed [facility] Work Phone: Discharge summary Author Husam Haynes [facility] Note Date/Time April 26, 2025 12:04 pm [facility] Medical Records Department [address] [place] [address] Emergency Department Summary 04/26/25 MR#: [id number] Acct: [id number] Name: WINSTON MARI Rep #:[id number] : 1955 70 From: Husam morgan DO PCP: Dr. Eugneio Mayen DO Status:REG ER Location: ED HPI HPI - Fall History of Present Illness Chief Complaint: Fall Narrative Narrative: Chief complaint and HPI: Fall downstairs. 70-year-old male with past medical history of degenerative disc disease, GERD presents for evaluation of fall downstairs. Patient states this morning he was walking downstairs to do laundrywhen he slipped on his grandchildren's toy. States that he fell down the stairs. Landed on concrete. Unsure if he hit his head. No LOC. Not on blood thinners. States that his family member helped him to his feet. He endorses left shoulder and wrist pain, bilateral hip pain, and thoracic/lumbar back pain. He denies any fever, chills, neck pain, chest pain, shortness of breath, abdominal pain, nausea, vomiting, numbness, tingling, weakness. Review of systems: See HPI Medications: As listed on the chart Allergies: As listed on the chart PFSH: Per chart Vital signs: As listed on the chart. Reviewed. Physical exam: Gen: A&O x3, NAD Head: Normocephalic, atraumatic Eyes: No sclera icterus, conjunctiva clear, PERRL, EOMI ENT: TMs clear BL, moist mucous membranes, no swelling/lacerations/blood in the mouth or the nares, No nasal septal hematoma, no facial tenderness Neck: Trachea midline, No JVD, Nontender CV: RRR, no murmurs, no chest wall TTP Resp: Lungs CTA BL, no w/r/c GI: Abd soft, non-distended, non-tender, no r/r/g Musc: Limited range of motion of the left upper extremity secondary to left shoulder and wrist pain-both tender to palpation with mild swelling in the left wrist, radial pulse +2 bilaterally, elbow full range of motion without tenderness, No tenderness to the arm, patient has tenderness to palpation of thebilateral hips, femoral/DP/PT pulses +2 bilaterally, bilateral knees nontender to palpation, compartments soft, no obvious deformity, no midline spinal tenderness although tenderness to palpation of the bilateral paraspinal musculature in the lower thoracic and lumbar spine, no bony step-offs Skin: Warm, dry, intact Neuro: Alert, oriented, grossly intact, sensation intact, GCS 15 Psych: Cooperative, appropriate mood and affect [facility] History Left rotator cuff tear Anemia GERD (gastroesophageal reflux disease) Left shoulder pain Hemorrhoid Epilepsy Sciatica High cholesterol Home Medications ?Medication ?Instructions ?Recorded ?Last Taken ?Type gabapentin 300 mg capsule 300 mg PO 4X/DAY 04/02/22 Un known History hydrocortisone acetate 25 mg 25 mg [place] QHS #12 ea 04/27 Unknown Rx rectal [...] Time adhesive tape (tape) AdvReac Rash Verified 04/26/25 08:25 hydrocodone (From [place]) AdvReac Upset Verified 04/26/25 08:25 Stomach ibuprofen AdvReac Upset Verified 04/26/25 08:25 Stomach ketorolac (From Toradol) AdvReac Rash Verified 04/26/25 08:25 meloxicam (From Mobic) AdvReac Muscle Verified 04/26/25 08:25 weakness naproxen AdvReac Rash Verified 04/26/25 08:25 tramadol AdvReac Upset Verified 04/26/25 08:25 Stomach Family History Other Cancer Diabetes Heart disease Surgical History Leg fracture, left S/P clamping of cerebral aneurysm Social History household members: significant other Smoking Status: Former smoker alcohol intake: former substance use type: does not use EXAM Physical Exam Const Vital Signs: 04/26/25 08:25 04/26/25 08:49 04/26/25 10:15 Temperature 97.6 F L Temperature Source Oral Pulse Rate 73 51 L Respiratory Rate 16 22 H Respiratory Effort Normal Respiratory Depth Normal Respiratory Pattern Normal Blood Pressure 121/74 H 130/77 H Blood Pressure Mean 89 94 Pulse Ox 100 97 Oxygen Delivery Method Room Air Room Air Room Air 04/26/25 11:00 Temperature Temperature Source Pulse Rate 43 L Respiratory Rate 18 Respiratory Effort Respiratory Depth Respiratory Pattern Blood Pressure 145/80 H Blood Pressure Mean 101 Pulse Ox 100 Oxygen Delivery Method Room Air MDM MDM MDM Narrative Medical decision making narrative: 70-year-old male with past medical history of degenerative disc disease, GERD presents for evaluation of fall downstairs. Patient states this morning he was walking downstairs to do laundry when he slipped on his grandchildren's toy. States that he fell down the stairs. Landed on concrete. Unsure if he hit his head. No LOC. Not on blood thinners. Was able to ambulate after the incident however endorses left shoulder and wrist pain as well as bilateral hip pain and thoracic/lumbar back pain. See physical exam findings. Differential diagnosis includes but is not limited to spinal fracture, back contusion, hip contusion, hip fracture, extremity contusion, extremity fracture, neck fracture, intracranial bleed. Morphine and Zofran ordered for symptoms. Imaging workup ordered. Given that patient states this was purely mechanical fall I do not think any laboratory workup is needed at this time. CT of the head shows no acute intracranial pathology or traumatic injury. CT of the cervical spine shows degenerative disc disease without any acute traumatic injury. CT of the thoracic and lumbar fracture again without acute traumatic injury. Patient has chronic mild compression. Plain film x-rays were personally reviewed and interpreted by me, ED physician. X-ray of the shoulder shows no acute fracture or dislocation. Per radiology patient has chronic arthritis and rotator cuff pathology. He has a healed fracture with deformity at the mid humeral shaft. Patient is not tender to palpation in this area. Patient states he broke this years ago. X-ray of the bilateral hips and pelvis without fracture or dislocation. Radiology in agreement. X-ray of the left wrist without fracture or dislocation. Patient has arthritis. Radiology in agreement. X-ray of the chest without pneumothorax, cardiomegaly, pneumonia, effusion, rib fracture. Radiology in agreement. On reevaluation, patient has increased movement as his pain is improved. He was able to ambulate in the emergency department without difficulty. Patient states that he has no assistive devices at home they are will prescribe a walker as needed. Recommend following up with PCP. Tylenol Motrin as needed for pain. He confirmed understanding of plan. Patient stable to discharge home. Impression: 1. Left shoulder contusion 2. Left wrist contusion 3. Bilateral hip contusions 4. Closed head injury 5. Mechanical fall 6. Thoracic and lumbar back contusion/strain Radiography Diagnostic Testing: Clinical Impression(s) from Imaging Studies Brain CT 04/26/25 09:30 IMPRESSION: 1. No evidence of acute intracranial pathology. 2. Status post left occipital craniotomy. 3. Other findings as noted. Reading Location: [facility] Cervical Spine CT 04/26/25 09:30 IMPRESSION: 1. Multilevel degenerative disc disease as described. 2. Multilevel facet arthropathy with degenerative grade 1 anterolisthesis C7 onT1. 3. Other findings as noted. No significant change. Reading Location: [facility] Lumbar Spine CT 04/26/25 09:30 IMPRESSION: 1. Chronic mild compression of the superior endplates of L2, L4 and L5. 2. Degenerative disc disease as described. 3. Other findings as noted. Reading Location: [facility] Thoracic Spine CT 04/26/25 09:30 IMPRESSION: 1. Mild compression of the superior endplate of T6 and T9, chronic. 2. No evidence of acute injury to the thoracic spine. 3. Other findings as noted. Reading Location: [facility] Chest X-Ray 04/26/25 09:45 IMPRESSION: No evidence of acute cardiopulmonary pathology. Reading Location: [facility] Hip/Pelvis X-Ray 04/26/25 09:45 IMPRESSION: 1. Normal bilateral hips. 2. Other findings as noted. Reading Location: [facility] Shoulder X-Ray 04/26/25 09:45 IMPRESSION: 1. No evidence of acute fracture or dislocation. 2. Arthritis of the acromioclavicular and glenohumeral joints. 3. 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 Reading Location: [facility] Wrist X-Ray 04/26/25 09:45 IMPRESSION: 1. No evidence of fracture or dislocation. 2. Multifocal arthropathy. Reading Location: [facility] Discharge Plan Triage Chief Complaint: Fall ED Provider: Husam Haynes Dx/Rx/DC Orders Prescriptions: No Action ferrous sulfate 325 mg (65 mg iron) tablet 325 mg PO QDAY pantoprazole 40 mg tablet,delayed release (DR/EC) 40 mg PO QDAY gabapentin 300 mg capsule 300 mg PO 4X/DAY hydrocortisone acetate [Anusol-HC] 25 mg suppository 25 mg [place] QHS Qty: 12 0RF atorvastatin [Lipitor] 40 [...] DO [Primary Care Provider] - Print Language: Azerbaijani What to do if you have Problems For any increased pain, shortness of breath, bleeding, nausea or vomiting, chestpain, or any unexpected problems, contact your Primary Care Provider. Call [facility] ([phone]) or report to the closest Emergency Room. Call 911 if necessary. 04/26/25 1204 <Electronically signed by Husam Haynes DO> Cosigner Signature (if applicable): CC: Dr. Eugenio Mayen DO ~ Signed [facility] Work Phone: Evaluation + Plan note Future Appointments Appointment Date:01/17/2022 10:00:00 AM Scheduled Provider:EUGENIO MAYEN DO Location:[facility] Appointment Type:PC OV Future Scheduled Tests Laboratory* [...] 02/04/21 * XR Spine Lumbar AP/LAT 12/07/21 [facility] Evaluation + Plan note Future Appointments Appointment Date:02/20/2022 04:30:00 PM Scheduled Provider:EUGENIO MAYEN DO Location:[facility] Appointment Type:PC OV Follow Up Future Scheduled [...] 02/16/22 * XR Spine Lumbar AP/LAT 12/07/21 [facility] Evaluation + Plan note Future Appointments Appointment Date:05/29/2022 11:30:00 AM Scheduled Provider:EUGENIO MAYEN DO Location:[facility] Appointment Type:PC OV Future Scheduled Tests Laboratory* [...] 02/16/22 * XR Spine Lumbar AP/LAT 12/07/21 [facility] Evaluation + Plan note Future Appointments Appointment Date:03/07/2022 11:15:00 AM Scheduled Provider:MARCELL RAMSEY MD Location:[facility] Appointment Type:PM BROACH OPERATOR Appointment Date:05/29/2022 11:30:00 AM Scheduled Provider:EUGENIO MAYEN DO Location:[facility] Appointment Type:PC OV Future Scheduled Tests Laboratory* [...] 02/16/22 * XR Spine Lumbar AP/LAT 12/07/21 [facility] Evaluation + Plan note Future Appointments Appointment Date:05/29/2022 11:30:00 AM Scheduled Provider:EUGENIO MAYEN DO [facility] Appointment Type:PC OV Future Scheduled Tests Laboratory* [...] 02/16/22 * XR Spine Lumbar AP/LAT 12/07/21 [facility] Evaluation + Plan note Future Appointments Appointment Date:04/12/2022 08:30:00 AM Scheduled Provider:PATRICIA CORTÉS MD Location:[facility] Appointment Type:WALTER BROACH OPERATOR Appointment Date:05/29/2022 11:30:00 AM Scheduled Provider:EUGENIO MAYEN DO Location:[facility] Appointment Type:PC OV Future Scheduled Tests [...] 02/16/22 * XR Spine Lumbar AP/LAT 12/07/21 [facility] Evaluation + Plan note Future Appointments Appointment Date:07/27/2022 02:00:00 PM Scheduled Provider:EUGENIO MAYEN DO [facility] Appointment Type:PC OV Follow Up Future Scheduled [...] 02/16/22 * XR Spine Lumbar AP/LAT 12/07/21 [facility] Evaluation + Plan note Future Appointments Appointment Date:09/19/2022 01:30:00 PM Scheduled Provider: Location:[facility] Appointment Type:US Renal Appointment Date:09/22/2022 02:00:00 PM Scheduled Provider:EUGENIO MAYEN DO Location:[facility] Appointment Type:PC OV Future Scheduled Tests Laboratory* [...] 08/30/22 * XR Spine Lumbar AP/LAT 12/07/21 [facility] Evaluation + Plan note Future Appointments Appointment Date:09/22/2022 02:00:00 PM Scheduled Provider:EUGENIO MAYEN DO Location:[facility] Appointment Type:PC OV Future Scheduled Tests Laboratory* [...] 02/16/22 * XR Spine Lumbar AP/LAT 12/07/21 [facility] Evaluation + Plan note Future Appointments Appointment Date:10/27/2022 02:30:00 PM Scheduled Provider:EUGENIO MAYEN DO [facility] Appointment Type:PC OV Future Scheduled Tests Laboratory* [...] 02/16/22 * XR Spine Lumbar AP/LAT 12/07/21 [facility] Evaluation + Plan note Future Appointments Appointment Date:12/06/2022 01:30:00 PM Scheduled Provider:EUGENIO MAYEN DO [facility] Appointment Type:PC OV Appointment Date:12/13/2022 02:30:00 PM Scheduled Provider: Location:[facility] Appointment Type:PF PFT w/Bronchodiltor Future Scheduled Tests [...] 02/16/22 * XR Spine Lumbar AP/LAT 12/07/21 [facility] Evaluation + Plan note Future Appointments Appointment Date:12/15/2022 01:30:00 PM Scheduled Provider: Location:[facility] Appointment Type:BD Bone Density DEXA Axial Skeleton Appointment Date:01/04/2023 02:00:00 PM Scheduled Provider:EUGENIO MAYEN DO Location:[facility] Appointment Type:PC OV Future Scheduled Tests Laboratory* Urinalysis 10/26/22 * Complete Blood Count 04/28/22 Radiology* XR Foot Minimum 3 Views Left 03/30/22 * BD Bone Density DEXA Axial Skeleton 12/15/22 * XR Elbow Minimum 3 Views Right 07/27/22 * MRI Spine Lumbar w/ + w/o Contrast 02/16/22 [facility] Evaluation + Plan note Future Appointments Appointment Date:01/04/2023 02:00:00 PM Scheduled Provider:EUGENIO MAYEN DO Location:[facility] Appointment Type:PC OV Future Scheduled Tests Laboratory* Urinalysis 10/26/22 * Complete Blood Count 04/28/22 Radiology* XR Foot Minimum 3 Views Left 03/30/22 * XR Elbow Minimum 3 Views Right 07/27/22 * MRI Spine Lumbar w/ + w/o Contrast 02/16/22 [facility] Evaluation + Plan note Future Appointments Appointment Date:08/15/2023 01:30:00 PM Scheduled Provider: Location:[facility] Appointment Type:GI OV Consult Appointment Date:08/23/2023 01:30:00 PM Scheduled Provider:EUGENIO MAYEN DO Location:[facility] Appointment Type:PC OV Future Scheduled Tests Laboratory* [...] 07/23/23 Radiology* CT Thorax w/o Contrast 08/10/23 [facility] Evaluation + Plan note Future Appointments Appointment Date:12/17/2023 02:00:00 PM Scheduled Provider:EUGENIO MAYEN DO Location:[facility] Appointment Type:PC OV Diagnostic Tests Pending * Varicella Zoster Antibody 12/07/23 * Rubella Antibody 12/07/23 * Rubeola IgG Antibody 12/07/23 * Mumps Antibody 12/07/23 Future Scheduled Tests Radiology* NM Myocardial Spect Rest/Stress 10/10/23 [facility] Evaluation + Plan note Future Appointments Appointment Date:10/02/2024 10:00:00 AM Scheduled Provider:EUGENIO MAYEN DO Location:[facility] Appointment Type:PC OV Appointment Date:11/06/2024 10:30:00 AM Scheduled Provider:EUGENIO MAYEN DO Location:[facility] Appointment Type:PC OV Future Scheduled Tests Laboratory* Urine Culture 07/02/24 Radiology* CT Thorax w/o Contrast 12/01/24 * NM Myocardial Spect Rest/Stress 10/10/23 [facility] Evaluation + Plan note Future Appointments Appointment Date:12/03/2024 11:00:00 AM Scheduled Provider:EUGENIO MAYEN DO Location:[facility] Appointment Type:PC OV Appointment Date:12/18/2024 09:00:00 PM Scheduled Provider: Location:[facility] Appointment Type:PC Nurse Lab Appointment Date:01/01/2025 10:00:00 AM Scheduled Provider:EUGENIO MAYEN DO Location:[facility] Appointment Type:PC Wellness Annual Future Scheduled Tests Laboratory* Ferritin 12/31/24 * Prostate Specific Antigen 12/31/24 * Urine Culture 07/02/24 * A1C Hemoglobin 12/31/24 * Complete Blood Count 12/31/24 * Lipid Profile 12/31/24 * Vitamin D Level 12/31/24 * Complete Metabolic Panel 12/31/24 Radiology* CT Thorax w/o Contrast 12/01/24 [facility] Evaluation + Plan note Future Appointments Appointment Date:05/20/2025 08:15:00 AM Scheduled Provider: Location:[facility] Appointment Type:NM Myocardial Spect Rest/Stress Shabana Appointment Date:05/20/2025 02:00:00 PM Scheduled Provider:EUGENIO MAYEN DO Location:[facility] Appointment Type:TONY Wellness Annual Appointment Date:08/05/2025 10:30:00 AM Scheduled Provider:EUGENIO MAYEN DO Location:[facility] Appointment Type:PC OV Future Scheduled Tests Laboratory* Urine Culture 07/02/24 Radiology* CT Thorax w/o Contrast 01/15/25 * MRI Shoulder w/o Contrast Left 04/02/25 * NM Myocardial Spect Rest/Stress 05/20/25 [facility] Evaluation noteNo assessment information available [facility] Work Phone: Evaluation note* Diagnosis Acute sciatica- Primary documented in this encounter [facility] Work Phone: Evaluation note* Diagnosis Anal fissure- Primary documented in this encounter [facility]* Diagnosis Other fracture of unspecified lumbar vertebra, initial encounter for closed fracture (HCC)- Primary Lumbar burst fracture, sequela documented in this encounter [facility]* Diagnosis Chronic pain syndrome- Primary documented in this encounter [facility] note* Diagnosis Chest pain, unspecified type- Primary Pain of right lower extremity Acute right-sided low back pain with right-sided sciatica documented in this encounter [facility] Narrative No data available for this section [facility] Hospital Discharge instructions No data available for this section [facility] Hospital Discharge instructions Additional Instructions Please follow-up with your PCP and return for any worsening of your symptoms. Begin taking MiraLAX daily.[facility] Work Phone: Hospital Discharge instructions Additional Instructions Continue your oxycodone as previously prescribed to take for pain.[facility] Work Phone: Hospital Discharge instructions Additional Instructions Ice to affected area 3 times a day for approximately 10 to 15 minutes each. Elevate your left foot when possible.[facility] Work Phone: Hospital Discharge instructions Additional [...] oral fluids for hydration. Follow-up with your doctor.[facility] Work Phone: Hospital Discharge instructionsAdditional Instructions Follow-up with primary care physician. Tylenol as needed for pain. Return back to the ED if symptoms change or worsen. Walker as needed for ambulation. Will RICE for swelling.[facility] Work Phone: Progress note No data available for this section [facility] Reason for referral (narrative)No reason for referral information [facility]WC[facility] Work Phone: Summary Purpose Family History [...] February 27, 2022 7: 05pm Power of Water Taxi Operator No February 27, 2022 7:05pm Advance Directive Response Recorded Date/ Time Living Will No March 07, 2022 1 :31pm Power of Water Taxi Operator No March 07, 2022 1:31pm Advance Directive Response Recorded Date/ Time Living Will No March 09, 2022 1 0:31am Power of Water Taxi Operator No March 09, 2022 10:31am Advance Directive Response Recorded Date/ Time Living Will No March 23, 2022 1 1:30pm Power of Water Taxi Operator No March 23, 2022 11:30pm Advance Directive Response Recorded Date/ Time Living Will No April 02, 2022 9:47pm Power of Water Taxi Operator No April 02 9:47pm Advance Directive Response Recorded Date/ Time Living Will No April 14, 2022 5:45pm Power of Water Taxi Operator No April 14 5:45pm Advance Directive Response Recorded Date/ Time Living Will No April 16, 2022 2:51pm Power of Water Taxi Operator No April 16 2:51pm Advance Directive Response Recorded Date/ Time Name of Medical Power of Water Taxi Operator tee Antunez April 24, 2022 6:31pm Living Will Yes April 24, 2022 6 :31pm Power of Water Taxi Operator Yes April 24, 2022 6:31pm Advance Directive Response Recorded Date/ Time Name of Medical Power of Water Taxi Operator tee Antunez April 24, 2022 6:31pm Living Will No April 27, 2022 1 1:27am Power of Water Taxi Operator No April 27, 2022 11:27am Advance Directive Response Recorded Date/ Time Living Will No September 16, 2 022 11:06am Power of Water Taxi Operator No September 16, 2022 11:06am Advance Directive Response Recorded Date/ Time Living Will No January 13, 2023 9:03pm Power of Water Taxi Operator No January 13 9:03pm Advance Directive Response Recorded Date/ Time Living Will No February 11, 2023 2:26pm Power of Water Taxi Operator No February 11 2:26pm Documents on File Type Date Recorded 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 Advance Directive(s) 02/12/2023 11:06 AM Documents on File Type Date Recorded 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 Advance Directive(s) 02/12/2023 11:06 AM Advance Directive Response Recorded Date/ Time Living Will No May 31 10:26am Power of Water Taxi Operator No May 31 2 023 10:26am Advance Directive Response Recorded Date/ Time Living Will No August 09 2:38pm Power of Water Taxi Operator No August 09, 2023 2:38pm Advance Directive Response Recorded Date/ Time Living Will No October 09 2 023 1:19pm Power of Water Taxi Operator No October 09, 2023 1:19pm Advance Directive Response Recorded Date/ Time Living Will No 2024 8:35am Power of Water Taxi Operator No February 05 8:35am Advance Directive Response Recorded Date/ Time Living Will No November 25 11:51am Power of Water Taxi Operator No November 25, 2024 11:51am Living Will No November 05 3:44pm Power of Water Taxi Operator No November 05, 2024 3:44pm Living Will No January 01, 2025 2:17pm Power of Water Taxi Operator No January 01 2:17pm Advance Directive Response Recorded Date/ Time Living Will No November 25 11:51am Power of Water Taxi Operator No November 25, 2024 11:51am Living Will No January 03, 2025 4:51pm Power of Water Taxi Operator No January 03 4:51pm Living Will No November 05 3:44pm Power of Water Taxi Operator No November 05, 2024 3:44pm Living Will No January 01, 2025 2:17pm Power of Water Taxi Operator No January 01 2:17pm Advance Directive Response Recorded Date/ Time Living Will No November 25 11:51am Do you have a Healthcare Power of Water Taxi Operator? No November 25, 2024 11:51am Living Will No January 03, 2025 4:51pm Do you have a Healthcare Power of Water Taxi Operator? No January 03, 2025 4:51pm Living Will No January 01, 2025 2:17pm Do you have a Healthcare Power of Water Taxi Operator? No January 01, 2025 2:17pm Advance Directive Response Recorded Date/ Time Living Will No January 03, 2025 4:51pm Do you have a Healthcare Power of Water Taxi Operator? No January 03, 2025 4:51pm Living Will No January 01, 2025 2:17pm Do you have a Healthcare Power of Water Taxi Operator? No January 01, 2025 2:17pm Do you have a Healthcare Power of Water Taxi Operator? No April 04, 2025 2:33pm Advance Directive Response Recorded Date/ Time Living Will No January 03, 2025 4:51pm Do you have a Healthcare Power of Water Taxi Operator? No January 03, 2025 4:51pm Living Will No January 01, 2025 2:17pm Do you have a Healthcare Power of Water Taxi Operator? No January 01, 2025 2:17pm Do you have a Healthcare Power of Water Taxi Operator? No April 04, 2025 2:33pm Do you have a Healthcare Power of Water Taxi Operator? No April 26, 2025 8:48am Discharge Instructions * Instructions* Dirando, Nas, MD - 06/26/2020 Follow-up her pain management physician and her primary doctor return of his any worsening problemsat all. * Attachments The following attachments cannot be sent through Care Everywhere. * Muscle Strain (Azerbaijani) * Wrist Sprain (Azerbaijani) documented in this encounter Assessments Diagnosis Lumbar [...] 15, 2024 10:45am Chief Complaint Admit Date LEFT SHOULDER PAIN December 08, 2024 8:14am LEFT SHOULDER December 15, 2024 10:45am Radiculopathy, lumbar region December 22, 2024 8:52am R FLANK PAIN January 01, 2025 2:0 0pm R FLANK PAIN January 03, 2025 4:3 9pm LUMBAR SPINE March 19, 2025 9:49a m Room 1 March 19, 2025 10:25 am upper April 04, 2025 11:5 2am Reason for Visit Admit Date Left rotator cuff tear December 15 10:45am Left shoulder pain December 15, 2024 10:45am Degenerative disc disease, lumbar March 192024 9:49am Chief Complaint Admit Date R FLANK PAIN January 01, 2025 2:0 0pm R FLANK PAIN January 03, 2025 4:3 9pm LUMBAR SPINE March 19, 2025 9:49a m Room 1 March 19, 2025 10:25 am upper April 04, 2025 11:5 2am fall April 26, 2025 8:24a m Reason for Visit Admit Date Degenerative disc disease, lumbar March 192024 9:49am Reason for Referral Specialty Diagnoses / Procedures Referred By Contac t Referred To Contact MR IMAGING Diagnoses Other fracture of unspecified lumbar vertebra, initial encounter for closed fracture (HCC) Procedures MRI LUMBAR SPINE WO IVCON MRI SPINAL CANAL LUMBAR W/O CONTRAST MATERIAL Pro Almonte MD [address] [place] [address] Mr Imaging Referral ID Status Reason Start Date Expiration Date Visits Requested Visits Authorized [id number] Pending Review Auto-Generat ed Referral 03/29/2023 04/27/2024 [...] section and content) DATE CREATED AUTHOR 04/16/2018 [facility] DATE CREATED AUTHOR AUTHOR'S ORGANIZ ATION 04/17/2018 [facility] DATE CREATED AUTHOR AUTHOR'S ORGANIZ ATION 11/03/2019 [facility] DATE CREATED AUTHOR AUTHOR'S ORGANIZ ATION 06/26/2020 [facility] DATE CREATED AUTHOR AUTHOR'S ORGANIZ ATION 01/13/2021 [facility] DATE CREATED AUTHOR AUTHOR'S ORGANIZ ATION 03/26/2022 [facility] DATE CREATED AUTHOR AUTHOR'S ORGANIZ ATION 03/27/2022 [facility] DATE CREATED AUTHOR AUTHOR'S ORGANIZ ATION 05/01/2023 [facility] DATE CREATED AUTHOR AUTHOR'S ORGANIZ ATION 05/24/2023 [facility] DATE CREATED AUTHOR AUTHOR'S ORGANIZ ATION 11/21/2023 [facility] DATE CREATED AUTHOR AUTHOR'S ORGANIZ ATION 12/12/2023 [facility] ([place]) DATE CREATED AUTHOR AUTHOR'S ORGANIZ ATION 03/01/2025 [facility] DATE CREATED AUTHOR AUTHOR'S ORGANIZ ATION 05/06/2025 [facility] DATE CREATED AUTHOR AUTHOR'S ORGANIZ ATION 05/23/2025 [facility] Reason for Visit (unrecogniz ed section and [...] content) Care Team Personnel Name: ELENA LOONEY ANCILLARY SERVICES MANAGER THERAPY-SUPERVISOR PROPERTIES Position: P4 Advanced Operations Consultant Member Role: Pain Management Address: [address] [place] [address] [address] [facility] [address] Telecom: Name: EUGENIO MAYEN DO Position: P4 Physician - Primary Care Member Role: Primary Care Physician Address: [address] [place] [address] [facility] [address] Telecom: Name: MARCELL RAMSEY MD Member Role: Pain Management Address: [address] [facility] [address] [place] Telecom: Care Team Related Persons Name: LEON MARI SR Trimmer Climber Relationship Specialty Start Date End Date Eugenio Mayen IV, MD [address] [place] [id number] PCP - General Family Medicine 09/07/22 Team Status: Active Member Role Status Dates Pebbles Grullon BROACH OPERATOR, BROACH OPERATOR-C Family Provider Active Dr. Eugenio Mayen DO Primary Care Provider Active Team Status: Inactive Member Role Status Dates Dr. Eugenio Mayen DO Primary Care Provider Active Dr. Timur Morris DO Attending Provider, Emergency P akash Active Team Status: Inactive Member Role Status Dates Dr. Eugenio Mayen DO Primary Care Provider Active Dr. Mark Sweeeny DO Emergency Provider Active Team Status: Inactive Member Role Status Dates Dr. Eugenio Mayen DO Primary Care Provider Active Dr. Mark Sweeney DO Attending Provider, Emergency Provider Active Team Status: Inactive Member Role Status Dates Dr. Eugenio Mayen , Primary Care Provider Active Dr. Ken Mari MD Emergency Provider Active Trimmer Climber Relationship Specialty Start Date End Date Eugenio Mayen IV [facility] [place] [address] PCP - General Family Medicine 09/07/22 Marcell aRmsey [address] [place] [address], [place] [address] Referring Pain Management 01/17/23 Trimmer Climber Relationship Specialty Start Date End Date Eugenio Mayen [place] [address] PCP - General Family Medicine 09/07/22 Marcell Ramsey [address] [place] [address], [place] [address] Referring Pain Management 01/17/23 Trimmer Climber Relationship Specialty Start Date End Date Eugenio Mayen IV, [facility] [place] [address] PCP - General Family Medicine 09/07/22 Anthony Marcell Sandy [address] [place] [address], [place] [address] Referring Pain Management 01/17/23 Trimmer Climber Relationship Specialty Start Date End Date Vitalymarii Eugenio Sher IV [facility] [place] [address] PCP - General Family Medicine 09/07/22 Marcell Ramsey [address] [place] [address], [place] [address] Referring Pain Management 01/17/23 Team Status: Inactive Member Role Status Dates Dr. Eugenio Mayen DO Primary Care Provider Active Dr. Ken Mari MD Attending Provider, Emergency Pro vider Active Team Status: Inactive Member Role Status Dates Dr. Eugenio Mayen DO Primary Care Provider Active Dr. Gene Cristina MD Emergency Provider Active Trimmer Climber Relationship Specialty Start Date End Date VitalyEugenio arenas LUDIN DO [address] [place] [address] PCP - General Family Medicine 09/07/22 Marcell Ramsey [address] [place] [address] Referring Pain Management 01/17/23 Trimmer Climber Relationship Specialty Start Date End Date VitalyEugenio arenas LUDIN DO [address] [place] [address] PCP - General Family Medicine 09/07/22 Marcell Ramsey [address] [place] [address] Referring Pain Management 01/17/23 Team Status: Inactive Member Role Status Dates Dr. Eugenio Mayen DO Primary Care Provider Active Dr. Gene Cristina MD Attending Provider, Emergency Provider Active Team Status: Inactive Member Role Status Dates Dr. Eugenio Mayen DO Primary Care Provider Active Dr. Nicolás Rojas DO Emergency Provider Active Team Status: Inactive [...] November 05, 2024 Dr. Dennis Strickland DO Emergency Provider Active Start: November 05, [...] 2024 End: November 25, 2024 Dr. Abril Velrade DO Attending Provider Active S tart: November [...] January 03, 2025 End: January 03, 2025 Trimmer Climber Relationship Specialty Start Date End Date Provider, [...] Mayen DO Primary Care Provider Active Start: April 04, 2025 End: April 04, 2025 Dr. Ken Mari MD Emergency Provider Active S tart: April 04, 2025 End: April 04, 2025 Team Status: Active Member Role/Relationship Status Dates Dr. Eugenio Mayen DO Primary Care Provider Active Team Status: Inactive Member Role/Relationship Status Dates Dr. Eugenio Mayen DO Primary [...] January 01, 2025 Team Status: Inactive Member Role/Relationship Status Dates Dr. Eugenio Mayen DO Primary Care Provider Active Start: January 03, 2025 End: January 03, 2025 Dr. Ken Mari MD Attending Provider Active S tart: January 03, 2025 End: January 03, 2025 Dr. Ken Mari MD Emergency Provider Active S tart: January 03, 2025 End: January 03, 2025 Team Status: Inactive Member Role/Relationship Status Dates Dr. Eugenio Mayen DO Primary Care Provider Active Start: March 19, 2025 End: March 19, 2025 Dr. Eugenio Mayen DO Referring Provider Active Start: March 19, 2025 End: March 19, 2025 NIKI Rock Attending Provider Active Star t: March 19, 2025 End: March 19, 2025 Team Status: Inactive Member Role/Relationship Status Dates Dr. Eugenio Mayen DO Primary Care Provider Active Start: March 19, 2025 End: March 19, 2025 Dr. Tyrone Fagan MD Attending Provider Active S tart: March 19, 2025 End: March 19, 2025 Team Status: Inactive Member Role/Relationship Status Dates Dr. Eugenio Mayen DO Primary Care Provider Active Start: April 04, 2025 End: April 04, 2025 Dr. Ken Mari MD Attending Provider Active S tart: April 04, 2025 End: April 04, 2025 Dr. Ken Mari MD Emergency Provider Active S tart: April 04, 2025 End: April 04, 2025 Team Status: Inactive Member Role/Relationship Status Dates Dr. Eugenio Mayen DO Primary Care Provider Active Start: April 26, 2025 End: April 26, 2025 Dr. Husam Haynes DO Emergency Provider Activ e Start: April 26, 2025 End: April 26, 2025 Goals (unrecognized section and content) Goals [...] content) Care Team Personnel Name: ELENA LOONEY APRN-SUPERVISOR PROPERTIES Position: P4 Advanced Practice Nurse Med Service: Active Provider Member Role: Pain Management Address: Address: [address] [place] [address] Pain Management [place], [place] [address] [place] [address] Name: EUGENIO MAYEN DO Position: P4 Physician - Primary Care Med Service: Active Provider Member Role: Primary Care Physician Address: Address: [address] [place] [address] [place] [address]- [place] Name: MARCELL RAMSEY MD Position: P4 Physician - General Surgery Med Service: [facility] Pain Management Member Role: Pain Management Address: Address: [address] [place] [address] [address] [facility] [place] [address]- [place] Care Team Related Persons Name: EZ FRANCO Peña Address: Home [address] [place], [place] [id number] [place] Address: Temporary [address] [place], [place] [id number] Name: JASMINE ANTUNEZ Address: Home [address] [place], [place] [id number] Care Team Personnel Name: ELENA LOONEY APRN-SUPERVISOR PROPERTIES Position: P4 Advanced Practice Nurse Member Role: Pain Management Address: Address: [address] [place] [address] [address] [facility] [place] [address]- [place] Name: EUGENIO MAYEN DO Position: P4 Physician - Primary Care Member Role: Primary Care Physician Address: Address: [address] [place] [address]- Name: MARCELL RAMSEY MD Position: P4 Physician - General Surgery Member Role: Pain Management Address: Address: [address] [place] [address] [address] [facility] [place] [address]- [place] Care Team Related Persons Name: FRANCO HUI Address: Home [address] [place], [place] [id number] [place] Address: Temporary [address] [place], [place] [id number] Name: JASMINE ANTUNEZ Address: Home [address] [place], [place] [id number] Care Team Personnel Name: ELENA LOONEY APRN-SUPERVISOR PROPERTIES Position: P4 Advanced Practice Nurse Member Role: Pain Management Address: Address: [address] [place] [address] [address] [facility] [place] [address]- [place] Name: EUGENIO MAYEN DO Position: P4 Physician - Primary Care Member Role: Primary Care Physician Address: Address: [address] [place] [address]- Name: MARCELL RAMSEY MD Position: P4 Physician - General Surgery Member Role: Pain Management Address: Address: [address] [place] [address] [address] [facility] [place] [address]- [place] Care Team Related Persons Name: FRANCO HUI Address: Home [address] [place], [place] [id number] [place] Address: Temporary [address] [place], [place] [id number] Name: JOHNNYIRIS MARLEYE Address: Home [address] [place], [place] [id number] Care Team Personnel Name: ELENA LOONEY APRN-SUPERVISOR PROPERTIES Position: P4 Advanced Practice Nurse Member Role: Pain Management Address: Address: [address] [place] [address] [place] [address]- [place] Name: EUGENIO MAYEN DO Position: P4 Physician - Primary Care Member Role: Primary Care Physician Address: Address: [address] [place] [address]- Name: MARCELL RAMSEY MD Position: P4 Physician - General Surgery Member Role: Pain Management Address: Address: [address] [place] [address] [place] [address]- [place] Care Team Related Persons Name: FRANCO HUI Address: Home [address] [place] [id number] [place] Address: Temporary [address] [place], [place] [phone] Name: JASMINE ANTUNEZ Address: Home [address] [place] [id number] Care Team Personnel Name: ELENA LOONEY APRN-SUPERVISOR PROPERTIES Position: P4 Advanced Practice Nurse Member Role: Pain Management Address: Address: [address] [place] [address] [place] [address]- [place] Name: EUGENIO MAYEN DO Position: P4 Physician - Primary Care Member Role: Primary Care Physician Address: Address: [address] [place] [address]- [place] Name: MARCELL RAMSEY MD Member Role: Pain Management Address: Address: [address] [place] [address] [place] [address]- [place] Care Team Related Persons Name: EZ FRANCO Islas Address: Home [address] [place], [place] [id number] [place] Address: Temporary [address] [place], [place] [id number] Name: JASMINE ANTUNEZ Address: [address] [place], [place] [id number] Care Team Personnel Name: ELENA LOONEYSUPERVISOR PROPERTIES Position: P4 Advanced Operations Consultant Member Role: Pain Management Address: Address: [address] [place] [address] [place], [place] [address] Name: EUGENIO MAYEN DO Position: P4 Physician - Primary Care Member Role: Primary Care Physician Address: Address: [address] [place] [id number] Name: MARCELL RAMSEY MD Member Role: Pain Management Address: Address: [address] [place] [address] [place] [address]- [place] Care Team Related Persons Name: FRANCO HUI Address: Home [address] [place], [place] [phone] [place] Address: Temporary [address] [place] [id number] Name: JASMINE ANTUNEZ Address: [address] [place], [place] [phone] Care Team Personnel Name: ELENA LOONEY Position: P4 Advanced Operations Consultant Member Role: Pain Management Address: Address: [address] [place] [address] [place] [address]- [place] Name: EUGENIO MAYEN DO Position: P4 Physician - Primary Care Member Role: Primary Care Physician Address: Address: [address] [place] [address] Name: MARCELL RAMSEY MD Member Role: Pain Management Address: Address: [address] [place] [address] [place] [address]- Care Team Related Persons Name: FRANCO HUI Address: Home [address] [place], [place] [id number] [place] Address: Temporary [address] [place], [place] [id number] Name: JASMINE ANTUNEZ Address: Home [address] [place], [place] [id number] Source Comments (unrecognize d section and content) In the event this informatio n is protected by the Federal Confidentiality of Alcohol and Drug Abuse Patient Records regulations: The Federal rules restrict any use of the information to criminally investigate or prosecute any alcohol or drug abuse patient.[facility] HospitalIn the event this information is protected by the Federal Confidentiality of Alcohol and Drug Abuse Patient Records regulations: The Federal rules restrict any use of the information to criminally investigate or prosecute any alcohol or drug abuse patient.[facility] HospitalIn the event this information is protected by the Federal Confidentiality of Alcohol and Drug Abuse Patient Records regulations: The Federal rules restrict any use of the information to criminally investigate or prosecute any alcohol or drug abuse patient.[facility] HospitalIn the event this information is protected by the Federal Confidentiality of Alcohol and Drug Abuse Patient Records regulations: The Federal rules restrict any use of the information to criminally investigate or prosecute any alcohol or drug abuse patient.[facility] HospitalIn the event this information is protected by the Federal Confidentiality of Alcohol and Drug Abuse Patient Records regulations: The Federal rules restrict any use of the information to criminally investigate or prosecute any alcohol or drug abuse patient.[facility] HospitalIn the event this information is protected by the Federal Confidentiality of Alcohol and Drug Abuse Patient Records regulations: The Federal rules restrict any use of the information to criminally investigate or prosecute any alcohol or drug abuse patient.[facility] HospitalIn the event this information is protected by the Federal Confidentiality of Alcohol and Drug Abuse Patient Records regulations: The Federal rules restrict any use of the information to criminally investigate or prosecute any alcohol or drug abuse patient.[facility] HospitalIn the event this information is protected by the Federal Confidentiality of Alcohol and Drug Abuse Patient Records regulations: The Federal rules restrict any use of the information to criminally investigate or prosecute any alcohol or drug abuse patient.[facility] HospitalIn the event this information is protected by the Federal Confidentiality of Alcohol and Drug Abuse Patient Records regulations: The Federal rules restrict any use of the information to criminally investigate or prosecute any alcohol or drug abuse patient.[facility] FOR RECORDS PERTAINING TO PATIENTS WHO ARE [...] BE BASED ON THE PRIMARY CLINICAL RECORDS. [facility] [employer] [facility]. provides no warranty or guarantee of the accuracy or completeness of information in this document.
--- NOTE | 2025-05-31 10:06 | CT_ITS ---
PROCEDURE: CT CHEST, ABD, PEL W/CONTRAST 05/31/2025 REASON FOR EXAM: FALL, TRAUMA. Pain between shoulder blades. Hit head. Question LOC. History of cerebral aneurysm clamping. Fell out of back of [employer] truck while working. History of epilepsy, HLD. TECHNIQUE: Chest, abdomen and pelvis CT with intravenous contrast. Coronal and Sagittal reconstruction series were provided. One or more dose reduction techniques were used (e.g., Automated exposure control, adjustment of the mA and/or kV according to patient size, use of iterative reconstruction technique. CONTRAST: Isovue 370 VOLUME: 100mL RADIATION DOSE SUMMARY: CTDlvol: 19.00, 12.02, 13.28 mGy DLP: 9.50, 396.21, 689.33 mGycm FINDINGS: CHEST: LUNGS: Mild diffuse centrilobular emphysema. Stable pulmonary nodules since 03/09/2022: 8.2 mm right lower lobe (Se: 602.2, Im: 100), 2.4 mm right lower lobe nodule along the major fissure (Se: 12, Im: 99) and 4.8 mm left lower lobe (Se: 12, Im: 109). No pulmonary mass. No focal airspace consolidation. Calcified granuloma in the lingula. PLEURAL SPACES: No pleural effusion. No pneumothorax. HEART: No cardiomegaly. No significant pericardial effusion. Multivessel coronary artery calcification. MEDIASTINUM/HILUM: No significant lymphadenopathy. Calcified mediastinal and colonic diverticulosis without signs left hilar lymph nodes. AORTA: No aneurysm or dissection. Scattered calcified atherosclerosis. ESOPHAGUS: Unremarkable. SOFT TISSUES: The soft tissues are unremarkable. BONES: No acute osseous abnormality. Degenerative changes of the glenohumeral and acromioclavicular joints bilaterally. Mild stable compression deformities of the T6 and T9 vertebral bodies. ABDOMEN AND PELVIS: LIVER: Unremarkable. No focal lesions. GALLBLADDER: Unremarkable. No calcified stone. BILE DUCTS: No ductal dilation. PANCREAS: Unremarkable. SPLEEN: Multiple calcified splenic granulomas. ADRENAL GLANDS: Unremarkable. KIDNEYS: Small 2.0 mm right renal stone. Multiple hypodense renal lesions again seen bilaterally, likely cysts. No hydronephrosis or hydroureter. STOMACH AND BOWEL: No obstruction or perforation. No wall thickening. Normal caliber small bowel with increased fluid. Colonic air-fluid levels throughout the majority of the colon. Colonic diverticulosis. No CT evidence of colitis or acute diverticulitis. APPENDIX: Normal-appearing appendix. No CT evidence for appendicitis. RETRO/PERITONEUM: No free fluid. No free air. LYMPH NODES: No lymphadenopathy. PELVIC ORGANS: Prostatic enlargement, indenting on the base of the urinary bladder. Decompressed urinary bladder with mild diffuse wall thickening. Unremarkable seminal vesicles. VASCULATURE: No aortic aneurysm or dissection. Scattered calcified atherosclerosis. SOFT TISSUES: The soft tissues are unremarkable. BONES: No acute osseous abnormality. Chronic stable superior compression deformity of the L2 and L4 vertebral bodies. Degenerative changes of the spine and both hips. CT/CT Chest, Abd, Pel w/Contrast IMPRESSION: 1. No acute intrathoracic, abdominal or pelvic injury detected. No acute fract ures. 2. Increased small and large bowel fluid, which is nonspecific and can be seen with enterocolitis, an ileus, or other diarrheal illness. 3. Nonobstructing right renal calculus. 4. Colonic diverticulosis without signs of diverticulitis. Reading Location: [id number]
--- NOTE | 2025-05-31 10:06 | CT_ITS ---
PROCEDURE: SPINE CERVICAL WITHOUT CONTRAS 05/31/2025 REASON FOR EXAM: FALL. Pain between shoulder blades. Hit head. Question LOC. History of cerebral aneurysm clipping. Fell out of back of [employer] truck while working. History of epilepsy, HLD. TECHNIQUE: SPINE CERVICAL WITHOUT CONTRAS Coronal and Sagittal reconstruction series were provided. One or more dose reduction techniques were used (e.g., Automated exposure control, adjustment of the mA and/or kV according to patient size, use of iterative reconstruction technique. RADIATION DOSE SUMMARY: CTDlvol: 20.22 mGy DLP: 435.47 mGycm FINDINGS: BONES: No acute fracture or focal osseous lesion. Stable grade 1 anterolisthesis of C7 on T1, which appears degenerative in etiology. DISCS / DEGENERATIVE CHANGES: Degenerative disc disease at multiple levels, greatest at C4-C5 and C5-C6. Multilevel facet arthropathy and neuroforaminal narrowing. Moderate central canal narrowing from C3-C4 to C6-C7. SOFT TISSUES: No prevertebral soft tissue swelling. Mild centrilobular emphysema. No apical pneumothorax. CT/Spine Cervical without Contras IMPRESSION: 1. No acute cervical spine fracture or dislocation. 2. Chronic degenerative changes, with no significant interval change. Reading Location: [id number]
--- NOTE | 2025-05-31 10:06 | CT_ITS ---
PROCEDURE: BRAIN/HEAD WITHOUT CONTRAST 05/31/2025 REASON FOR EXAM: FALL TECHNIQUE: BRAIN/HEAD WITHOUT CONTRAST Coronal and Sagittal reconstruction series were provided. One or more dose reduction techniques were used (e.g., Automated exposure control, adjustment of the mA and/or kV according to patient size, use of iterative reconstruction technique. RADIATION DOSE SUMMARY: CTDlvol: - mGy DLP: 1095.04 mGycm COMPARISON: CT head April 26, 2025. FINDINGS: Brain: Low density in the periventricular white matter suggests mild chronic small vessel ischemic changes. No acute intracranial hemorrhage. No acute territorial vascular infarction. No mass effect or midline shift. CSF Spaces: Moderate generalized cerebral atrophy Sinuses/Mastoids: Clear Bones: No acute bony abnormalities. Status post left occipital craniotomy. CT/Brain/Head without Contrast IMPRESSION: No acute intracranial abnormalities. Reading Location: [id number]
--- NOTE | 2025-05-31 10:07 | EDS_ITS ---
HPI History of Present Illness Chief Complaint: Fall Detail of Chief Complaint: Fall Informant: patient Narrative Narrative: Patient presents to the emergency department after sustaining a fall this morning. Patient states that he was unloading a box truck when he fell off the back of bed about 5 or 6 feet. He thinks he lost consciousness because he just remembers his nephew and [id number] awaken him. He was able to ambulate afterwards. He complains of pain in his head and neck as well as back. He is on Plavix. Initially had some mild numbness in his left hand. He denies chest pain or abdomen pain [facility] Medical History Left rotator cuff tear Anemia GERD (gastroesophageal reflux disease) Left shoulder pain Hemorrhoid Epilepsy Sciatica High cholesterol Home Medications ?Medication ?Instructions ?Recorded ?Last Taken ?Type gabapentin 300 mg capsule 300 mg PO 4X/DAY 04/02/22 Un known History hydrocortisone acetate 25 mg 25 mg [place] QHS #12 ea 04/27 Unknown Rx rectal suppository (Anusol-HC) atorvastatin 40 mg tablet (Lipitor) 40 mg PO QHS 01/13 Unknown History polyethylene glycol 3350 17 17 g PO DAILY #119 grams 0 05/31/23 Unknown Rx gram/dose oral powder (ClearLax) cyclobenzaprine 5 mg tablet 5 mg PO TID PRN muscle spa sm 4 11/05/24 Unknown Rx days #12 tabs clopidogrel 75 mg tablet 75 mg PO QDAY 11/13/24 Unkno wn History duloxetine 30 mg capsule,delayed See Rx Instructions P O QDAY 11/13/24 Unknown History release ferrous sulfate 325 mg (65 mg 325 mg PO QDAY 11/13/24 Unknown History iron) tablet pantoprazole 40 mg tablet,delayed 40 mg PO QDAY Unknown History release ondansetron 4 mg disintegrating 4 mg PO Q8H PRN PRN Na usea #10 tabs 11/25/24 Unknown Rx tablet oxycodone-acetaminophen 5 mg-325 1 tab PO Q8H PRN pain 3 days #10 11/25/24 Unknown Rx mg tablet (Percocet) tabs diazepam 5 mg tablet 5 mg PO Q8 PRN Muscle Spasm #10 01/01/25 Unknown Rx tabs cyclobenzaprine 10 mg tablet 10 mg PO TID PRN Muscle S pasm #20 05/31/25 Unknown Rx TABLETS oxycodone-acetaminophen 5 mg-325 1 tab PO Q6H PRN PRN Pain 3 days 05/31/25 Unknown Rx mg tablet #12 TABLETS Allergy/AdvReac Type Severity Reaction Status Date / Time adhesive tape (tape) AdvReac Rash Verified 04/26/25 08:25 hydrocodone (From Butler) AdvReac Upset Verified 04/26/25 08:25 Stomach ibuprofen AdvReac Upset Verified 04/26/25 08:25 Stomach ketorolac (From Toradol) AdvReac Rash Verified 04/26/25 08:25 meloxicam (From Mobic) AdvReac Muscle Verified 04/26/25 08:25 weakness naproxen AdvReac Rash Verified 04/26/25 08:25 tramadol AdvReac Upset Verified 04/26/25 08:25 Stomach Family History Other Cancer Diabetes Heart disease Surgical History Leg fracture, left S/P clamping of cerebral aneurysm Social History household members: significant other Smoking Status: Former smoker alcohol intake: former substance use type: does not use ROS ROS ED Review of Systems ROS Unobtainable: other Constitutional Constitutional ED: Reports lethargy; Denies chills, fever(s), sweats or weight loss Eyes Eyes: Denies blurry vision, change in vision or diplopia ENT ENT ED: Denies rhinorrhea or sore throat Cardiovascular Cardiovascular: Denies chest pain, orthopnea or racing heartbeat Respiratory/Chest Respiratory/Chest: Reports dyspnea and dyspnea on exertion; Denies cough, orthopnea or sputum Gastrointestinal Gastrointestinal: Denies abdominal pain, diarrhea, nausea or vomiting Genitourinary Genitourinary ED: Denies dysuria, hematuria or urinary frequency Musculoskeletal Musculoskeletal: Reports back pain and neck pain; Denies arthralgias or myalgias Integumentary Denies abscess, Abrasions or rash Neurologic Neurologic: Reports headache(s); Denies weakness Psychiatric Psychiatric: Denies anxiety, depression or suicidal thoughts Endocrine Endocrinology: Denies polydipsia, polyphagia or polyuria Hematologic/Lymphatic Hematologic/Lymphatic: Denies easy bleeding, easy bruising or lymphadenopathy Allergic/Immunologic Allergic/Immunologic ED: Denies mouth swelling, tongue swelling or urticaria EXAM Physical Exam Const Vital Signs: 05/31/25 09:27 05/31/25 10:22 Temperature 97.9 F Temperature Source Oral Pulse Rate 65 Respiratory Rate 16 Respiratory Effort Normal Respiratory Depth Normal Respiratory Pattern Normal Blood Pressure 125/77 H Blood Pressure Mean 93 Pulse Ox 100 Oxygen Delivery Method Room Air Room Air Positive well nourished and well developed General Appearance ED: well developed and NAD HEENT Reports TM's clear and moist mucous membranes HEENT Narrative: No external evidence of trauma to his head. normocephalic and atraumatic; Negative for trauma or tenderness Tympanic Membrane ED: Yes TM's clear Eyes PERRL and EOMs intact bilaterally General Eye ED: Negative for pale conjunctiva or scleral icterus Neck no lymphadenopathy, supple and no JVD Neck Narrative: Diffuse tenderness to the C-spine. Some discomfort with range of motion. No bony step-offs or depressions noted. General: tenderness Chest Wall inspection of chest normal and palpation of chest normal Chest: Negative for tenderness Resp normal respiratory effort and clear to auscultation bilaterally Effort and Inspection: Negative for respiratory distress or pain with movement Auscultation: Negative for rhonchi, wheezes or diminished lung sounds Cardio regular rate, regular rhythm, S1 normal heart sound, S2 normal heart sound and no murmurs Peripheral Pulses: pulses 2+ throughout GI normal to inspection, nondistended, normoactive bowel sounds, soft to palpation, non-tender, non-distended and no masses Back/Spine Back/Spine Narrative: Patient with diffuse tenderness palpation over the thoracic and lumbar spine. There is no ecchymosis or bruising. He has diffuse tenderness over the posterior scapula bilaterally and paraspinal musculature diffusely. Negative straight leg raises. Deep tendon reflexes +24 bilaterally in the upper and lower extremities. Normal strength in the upper and lower extremities Extremity normal to inspection General Extremety ED: Negative for edema General Extremity: Negative for edema Neuro oriented x3, CN's II-XII intact bilaterally, no sensory deficits noted and gait normal Sensorium / Orientation: awake, alert, oriented to person, oriented to place and oriented to time Motor Exam: strength 5/5 throughout and strength abnormal Psych mental status grossly normal Skin no rashes or lesions noted and no wounds MDM MDM MDM Narrative Medical decision making narrative: Patient presents the emergency department with a fall out of a truck about 5 to 6 feet. Positive for LOC but patient unsure how long. Clinically looks well. No significant evidence of injury on exam. Patient had an IV line sandwich. CBC with differential obtained was normal. Chemistries unremarkable. CT scan of the brain without contrast showed no acute abnormality. CT of the C-spine showed no fractures. I did do a CT of the chest abdomen pelvis also showed no fractures and no acute abnormalities. Patient was medicated with morphine and Zofran. He will be discharged to home. He states this is not a Workmen's Comp. injury. Advised to follow-up with his primary care physician within next 5 to 7 days. He will be given a prescription for a few Butler and Flexeril. Lab Data Attestation: I reviewed the patient's lab results. Labs: Laboratory Results - last 24 hr 05/31/25 10:14 WBC 6.6 RBC 3.89 L Hgb 12.0 L Hct 35.5 L MCV 91.3 MCH 30.8 MCHC 33.8 RDW Std Deviation 46.6 H RDW Coeff of Jerry 13.8 Plt Count 324 MPV 8.5 Sodium 138 Potassium 4.2 Chloride 105 Carbon Dioxide 22.3 Anion Gap 11 BUN 16 Creatinine 0.88 Estim Creat Clear Calc 75.94 Est GFR (MDRD) Non-Af 93 BUN/Creatinine Ratio 18.2 Glucose 113 H Calcium 9.3 Total Bilirubin 0.36 AST 17 ALT 14 Alkaline Phosphatase 80 Total Protein 6.8 Albumin 4.1 Globulin 2.8 Albumin/Globulin Ratio 1.5 Radiography Diagnostic Testing: Clinical Impression(s) from Imaging Studies Brain CT 05/31/25 10:06 IMPRESSION: No acute intracranial abnormalities. Reading Location: [facility] Cervical Spine CT 05/31/25 10:06 IMPRESSION: 1. No acute cervical spine fracture or dislocation. 2. Chronic degenerative changes, with no significant interval change. Reading Location: [facility] Chest/Abdomen/Pelvis CT 05/31/25 10:06 IMPRESSION: 1. No acute intrathoracic, abdominal or pelvic injury detected. No acute fractures. 2. Increased small and large bowel fluid, which is nonspecific and can be seen with enterocolitis, an ileus, or other diarrheal illness. 3. Nonobstructing right renal calculus. 4. Colonic diverticulosis without signs of diverticulitis. Reading Location: [facility] Discharge Plan Triage Chief Complaint: Fall ED Provider: Abril Velarde Dx/Rx/DC Orders Clinical Impression: Fall, Closed head injury, Back contusion, Cervical muscle strain Instructions: ED Back Contusion, ED Mechanical Fall, ED Head Injury (Adult), ED Neck Sprain or Strain Prescriptions: New cyclobenzaprine 10 mg tablet 10 mg PO TID PRN (Reason: Muscle Spasm) Qty: 20 0RF oxycodone-acetaminophen 5-325 mg tablet 1 tab PO Q6H PRN PRN (Reason: Pain) 3 Days Qty: 12 0RF No Action ferrous sulfate 325 mg (65 mg iron) tablet 325 mg PO QDAY pantoprazole 40 mg tablet,delayed release (DR/EC) 40 mg PO QDAY gabapentin 300 mg capsule 300 mg PO 4X/DAY hydrocortisone acetate [Anusol-HC] 25 mg suppository 25 mg [place] QHS Qty: 12 0RF atorvastatin [Lipitor] 40 mg Tablet 40 mg PO QHS polyethylene glycol 3350 [ClearLax] 17 gram/dose powder 17 g PO DAILY Qty: 119 0RF clopidogrel 75 mg tablet 75 mg PO QDAY Patient Comments: TAKE 1 TABLET BY MOUTH EVERY DAY duloxetine 30 mg capsule,delayed release(DR/EC) See Rx Instructions PO QDAY Patient Comments: TAKE 2 CAPSULE BY MOUTH in AM and 1 cap at night Rx Instructions: orally daily; oxycodone-acetaminophen [Percocet] 5-325 mg tablet 1 tab PO Q8H PRN (Reason: pain) 3 Days Qty: 10 0RF ondansetron 4 mg tablet,disintegrating 4 mg PO Q8H PRN PRN (Reason: Nausea) Qty: 10 0RF cyclobenzaprine 5 mg tablet 5 mg PO TID PRN (Reason: muscle spasm) 4 Days Qty: 12 0RF diazepam [diazepam] 5 mg tablet 5 mg PO Q8 PRN (Reason: Muscle Spasm) Qty: 10 0RF Primary Care Provider: Jefferson Gregorio Referrals: Jefferson Gregorio DO [Primary Care Provider] - 3-5 Days Print Language: Pashto Disposition Disposition: Home, Self Care
[2025-05-31 10:20] LABS: Hematocrit 35.5 % (40-54); Hemoglobin 12.0 g/dL (13.0-16.5); Mean Corp Hgb Conc 33.8 g/dL (32-36); Mean Corpuscular Volume 91.3 fL (80-94); Mean Platelet Vol. 8.5 fl (6.2-12.0); Platelet Count 324 K/mm3 (150-450); RBC Distribution Width CV 13.8 % (11.6-14.6); RBC Distribution Width SD 46.6 fl (35.1-43.9); Red Blood Count 3.89 M/mm3 (4.6-6.2); White Blood Count 6.6 K/mm3 (4.4-11.0)
[2025-05-31 11:18] LABS: AST(SGOT) 17 U/L (<=37); Alanine Aminotransfer ALT/SGPT 14 U/L (<=46); Albumin, Serum 4.1 g/dL (3.4-4.8); Alkaline Phosphatase 80 U/L (40-129); Anion Gap 11 (5-15); BUN 16 mg/dL (4-19); BUN/Creat Ratio 18.2 RATIO (10-20); Calcium,Total 9.3 mg/dL (7.6-11.0); Carbon Dioxide 22.3 mmol/L (21.0-32.0); Chloride 105 mmol/L (98-108); Estimated Creatinine Clearance 75.94 ml/min (50-250); Globulin 2.8 g/dL (2.2-4.2); Glucose 113 mg/dL (70-99); Potassium 4.2 mmol/L (3.3-5.1)
[2025-05-31 11:26] VITALS: PULSE 78; RESP 14
[2025-05-31 12:23] VITALS: BP 125/77; PULSE 78; RESP 14; TEMP 36.6; O2SAT 100
== END 2025-05-31 12:24 | disposition home or self-care (01) ==
PROVIDERS: Emergency Provider Emergency Medicine; PCP Student in an Organized Health Care Education/Training Program; Visit Provider Emergency Medicine
DX: S09.90XA Unspecified injury of head, initial encounter (principal); S20.229A Contusion of unspecified back wall of thorax, initial encounter; S16.1XXA Strain of muscle, fascia and tendon at neck level, initial encounter; W19.XXXA Unspecified fall, initial encounter; Z79.01 Long term (current) use of anticoagulants; Z87.891 Personal history of nicotine dependence
CPT/HCPCS: 70450; 71260; 72125; 74177; 80053; 85027; 96374; 96375; 96376; 99283; Q9967; A4216; J2405

== ENCOUNTER 2025-06-11 08:31 | Emergency (ER) | payer MEDICAID, SELFPAY ==
[2025-06-11 08:32] VITALS: BP 137/71; PULSE 59; RESP 14; TEMP 36.6; O2SAT 98; BMI 20.4
--- NOTE | 2025-06-11 09:19 | ED.VIS.BACK ---
HPI History of Present Illness Chief Complaint: Back Informant: patient Onset/Context/Timing Onset: Today Context: Sudden Onset Injury: lifting Timing: Continuous Quality: Sharp Location: Thoracic, Lumbar, Buttock and Right Leg Worsened by: improves with Nothing Relieved by: Nothing Associated Symptoms Associated Symptoms: Radiation to Right Leg; Negative for Numbness, Tingling, Radiation to Left Leg, Fever, Abdominal Pain, Dysuria, Unable to Ambulate, Unable to Transfer, Urinary Retention, Urinary Incontinence, Constipation or Fecal Incontinence Narrative Narrative: Patient presents with back pain that began today. Patient states he was helping someone lift a freezer when the other person dropped his side of the freezer. Patient states the pain became worse. Patient describes it as sharp. Patient states it is over the thoracic and lumbar area. Patient states it radiates to his right knee. Patient states nothing makes it worse and nothing makes it better. Patient denies any paresthesias or weakness. Patient denies any other injuries. Patient denies any bowel or bladder changes. Patient denies any saddle anesthesia. [facility] Medical History Left rotator cuff tear Anemia GERD (gastroesophageal reflux disease) Left shoulder pain Hemorrhoid Epilepsy Sciatica High cholesterol Home Medications ?Medication ?Instructions ?Recorded ?Last Taken ?Type gabapentin 300 mg capsule 300 mg PO 4X/DAY 04/02/22 Unknown History hydrocortisone acetate 25 mg 25 mg [place] QHS #12 ea 04/27/22 Unknown Rx rectal suppository (Anusol-HC) atorvastatin 40 mg tablet (Lipitor) 40 mg PO QHS 01/13/23 Unknown History polyethylene glycol 3350 17 17 g PO DAILY #119 grams 05/31/23 Unknown Rx gram/dose oral powder (ClearLax) cyclobenzaprine 5 mg tablet 5 mg PO TID PRN muscle spasm 4 11/05/24 Unknown Rx days #12 tabs clopidogrel 75 mg tablet 75 mg PO QDAY 11/13/24 Unknown History duloxetine 30 mg capsule,delayed See Rx Instructions PO QDAY 11/13/24 Unknown History release ferrous sulfate 325 mg (65 mg 325 mg PO QDAY 11/13/24 Unknown History iron) tablet pantoprazole 40 mg tablet,delayed 40 mg PO QDAY 11/13/24 Unknown History release ondansetron 4 mg disintegrating 4 mg PO Q8H PRN PRN Nausea #10 tabs 02/04/25 Unknown Rx tablet diazepam 5 mg tablet 5 mg PO Q8 PRN Muscle Spasm #10 01/01/25 Unknown Rx tabs oxycodone-acetaminophen 5 mg-325 1 tab PO Q6H PRN PRN Pain 3 days 05/31/25 Unknown Rx mg tablet #12 TABLETS cyclobenzaprine 10 mg tablet 10 mg PO QHS PRN PRN Muscle Spasm 06/11/25 Unknown Rx #10 TABLETS Allergy/AdvReac Type Severity Reaction Status Date / Time adhesive tape (tape) AdvReac Rash Verified 06/11/25 08:32 hydrocodone (From [address]) AdvReac Upset Verified 06/11/25 08:32 Stomach ibuprofen AdvReac Upset Verified 06/11/25 08:32 Stomach ketorolac (From Toradol) AdvReac Rash Verified 06/11/25 08:32 meloxicam (From Mobic) AdvReac Muscle Verified 06/11/25 08:32 weakness naproxen AdvReac Rash Verified 06/11/25 08:32 tramadol AdvReac Upset Verified 06/11/25 08:32 Stomach Family History Other Cancer Diabetes Heart disease Surgical History Leg fracture, left S/P clamping of cerebral aneurysm Social History household members: significant other Smoking Status: Former smoker alcohol intake: former substance use type: does not use ROS ROS ED Constitutional Constitutional ED: Denies chills or fever(s) Eyes Eyes: Denies blurry vision or change in vision ENT ENT ED: Denies rhinorrhea or sore throat Cardiovascular Cardiovascular: Denies chest pain or palpitations Respiratory/Chest Respiratory/Chest: Reports dyspnea; Denies cough Gastrointestinal Gastrointestinal: Denies nausea or vomiting Genitourinary Genitourinary ED: Denies dysuria or hematuria Musculoskeletal Musculoskeletal: Reports back pain and neck pain Integumentary Denies abscess or rash Neurologic Neurologic: Reports headache(s); Denies weakness Allergic/Immunologic Allergic/Immunologic ED: Denies mouth swelling or urticaria EXAM Physical Exam Const Vital Signs: 06/11/25 08:32 Temperature 98 F Temperature Source Temporal Pulse Rate 59 L Respiratory Rate 14 Blood Pressure 137/71 H Blood Pressure Mean 93 Pulse Ox 98 Oxygen Delivery Method Room Air Positive well nourished and well developed General Appearance ED: well developed and NAD HEENT Reports moist mucous membranes Neck supple and no JVD Back/Spine Back/Spine Narrative: There is tenderness of the thighs and over the thoracic and lumbar paraspinal muscles. There is mild midline tenderness. There is no bony crepitance or step-off. Range of motion is limited in all motions of the thoracic and lumbar spine secondary to pain. Strength is 5/5 bilateral in the upper and lower extremities. There are no sensory deficits noted. Deep tendon reflexes are 2/4 bilaterally in the lower extremities. Straight leg raises were negative bilaterally. Thoracic Spine / Upper Back: paraspinal muscle tenderness Lumbar Spine / Lower Back: ROM limited and straight leg raise negative bilaterally Extremity normal to inspection Neuro oriented x3 and no sensory deficits noted Sensorium / Orientation: alert Motor Exam: strength 5/5 throughout Deep Tendon Reflexes: Rt Patellar (L4): 2+, Lt Patellar (L4): 2+, Rt Ankle (S1): 2+ and Lt Ankle (S1): 2+ Deep Tendon Reflexes Back: Rt Patellar (L4): 2+, Lt Patellar (L4): 2+, Rt Ankle (S1): 2+ and Lt Ankle (S1): 2+ Psych mental status grossly normal MDM MDM MDM Narrative Medical decision making narrative: Patient was advised that this is most likely a muscle strain. Patient was given injection of morphine here. Patient was given a prescription for Flexeril. Patient had a recent prescription for Percocet. Patient was instructed to follow-up with his primary care physician in 5 to 7 days. Patient understood and was agreeable with the plan. All questions were answered. History & Record Review Additional record(s) reviewed:: Prior ED visit and Prior labs Discharge Plan Triage Chief Complaint: Back ED Provider: Nicolás Rojas Dx/Rx/DC Orders Clinical Impression: Acute thoracic myofascial strain, Acute lumbar myofascial strain Instructions: ED Back Sprain/Strain Prescriptions: Changed cyclobenzaprine 10 mg tablet 10 mg PO QHS PRN PRN (Reason: Muscle Spasm) Qty: 10 0RF Discontinued oxycodone-acetaminophen [Percocet] 5-325 mg tablet 1 tab PO Q8H PRN (Reason: pain) 3 Days Qty: 10 0RF No Action ferrous sulfate 325 mg (65 mg iron) tablet 325 mg PO QDAY pantoprazole 40 mg tablet,delayed release (DR/EC) 40 mg PO QDAY gabapentin 300 mg capsule 300 mg PO 4X/DAY hydrocortisone acetate [Anusol-HC] 25 mg suppository 25 mg [place] QHS Qty: 12 0RF atorvastatin [Lipitor] 40 mg Tablet 40 mg PO QHS polyethylene glycol 3350 [ClearLax] 17 gram/dose powder 17 g PO DAILY Qty: 119 0RF clopidogrel 75 mg tablet 75 mg PO QDAY Patient Comments: TAKE 1 TABLET BY MOUTH EVERY DAY duloxetine 30 mg capsule,delayed release(DR/EC) See Rx Instructions PO QDAY Patient Comments: TAKE 2 CAPSULE BY MOUTH in AM and 1 cap at night Rx Instructions: orally daily; ondansetron 4 mg tablet,disintegrating 4 mg PO Q8H PRN PRN (Reason: Nausea) Qty: 10 0RF cyclobenzaprine 5 mg tablet 5 mg PO TID PRN (Reason: muscle spasm) 4 Days Qty: 12 0RF diazepam [diazepam] 5 mg tablet 5 mg PO Q8 PRN (Reason: Muscle Spasm) Qty: 10 0RF oxycodone-acetaminophen 5-325 mg tablet 1 tab PO Q6H PRN PRN (Reason: Pain) 3 Days Qty: 12 0RF Primary Care Provider: Jefferson Gregorio Referrals: Jefferson Gregorio DO [Primary Care Provider] - 5-7 Days Activity Restrictions/Additional Instructions: Continue your Percocet that was recently prescribed. Take this as needed for pain. Take Flexeril at bedtime as needed for muscle spasm. Print Language: Icelandic Disposition Disposition: Home, Self Care
[2025-06-11 10:17] VITALS: BP 132/77; PULSE 61; RESP 16; TEMP 36.7; O2SAT 99
== END 2025-06-11 10:18 | disposition home or self-care (01) ==
PROVIDERS: Emergency Provider Emergency Medicine; PCP Student in an Organized Health Care Education/Training Program; Visit Provider Emergency Medicine
DX: S39.012A Strain of muscle, fascia and tendon of lower back, initial encounter (principal); G40.909 Epilepsy, unspecified, not intractable, without status epilepticus; S29.012A Strain of muscle and tendon of back wall of thorax, initial encounter; X58.XXXA Exposure to other specified factors, initial encounter; E78.00 Pure hypercholesterolemia, unspecified; K21.9 Gastro-esophageal reflux disease without esophagitis; Z79.02 Long term (current) use of antithrombotics/antiplatelets; Z79.899 Other long term (current) drug therapy; Z87.891 Personal history of nicotine dependence
CPT/HCPCS: 96372; 99282

== ENCOUNTER 2025-06-15 17:56 | Emergency (ER) | payer MEDICAID, SELFPAY ==
[2025-06-15 17:57] VITALS: BP 128/76; PULSE 76; RESP 15; TEMP 36.8; O2SAT 99
[2025-06-15 19:08] VITALS: BMI 20.8
--- OUTSIDE RECORDS SUMMARY | 2025-06-15 19:35 | XMS RPT_ITS | CCD ---
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 Name Role Phone KADEEM LEVI Unavailable Unavailable Ray, Gayle Unavailable Unavailable PROVIDER, UNKNOWN Unavailable Unavailable No, PCP Unavailable Unavailable Ray, Gayle Unavailable Unavailable PROVIDER, UNKNOWN Unavailable Unavailable No, PCP Unavailable Unavailable Unavailable Primary Care Provider UnavailEugenio Randhawa Unavailable Unavailable Unavailable EUGENIO MAYEN DO Primary Care Physician [phone] Unavailable Primary Care Provider Unavailorion funes [place], DR NAWAF Funes Admitting Unavaila ble [...] NOLAND MD, Michael Primary Care Provider [phone] Faheem NOLAND DO, Michael Primary Care Provider [phone] Marcell Ramsey Unavailable Faheem NOLAND DO, Michael A Primary Care Provider [phone] HALMARII NOLAND SARAI Referring Unavailable HALKO IV, SARAI Primary Care Unavailable HUBERT JETT Attending Unavailable HALKO IV, SARAI Primary Care Unavailable NWACHUKU, ENYINNA Referring Unavailable HALKO IV, SARAI Primary Care Unavailable PRETTY CARDENAS Consulting Unavailable YESSICA GOTTLIEB Attending Unavailable MARY JO HERNANDEZ Admitting Unavailable HALKO IV, SARAI Primary Care Unavailable HALKO IV, SARAI Primary Care Unavailable NWJENELLEU, ENYINNA L Attending Unavailable HALKO IV, SARAI Primary Care Unavailable LONNIE, ENYINNA L Attending Unavailable HAMILTON AGARWAL Attending Unavailable HALKO IV, SARAI Primary Care Unavailable HAMILTON AGARWAL Attending Unavailable HALKO IV, [...] Unavailable HALKO DO, EUGENIO Attending Unavailable Vitalyko DO, Dr. Paulino Primary Care Provider [phone] Marco A FLEMING, Dr. Collins Attending Provider Marco A FLEMING, Dr. Collins Referring Provider Marco A FLEMING, Dr. Collins Emergency Provider Faheem FLEMING, Dr. Paulino Referring Provider [phone] Jacob Dominguez MD Attending Provider [phone] Aiyana Bolanos Attending Provider Gracia LUCAS, Dr. Hansen Attending Provider [phone] Prachi FLEMING, Dr. Samuels Attending Provider [phone] Abril Velarde DO Emergency Provider [phone] Jacob Dominguez MD Referring Provider [phone] Aiyana Bolanos Referring Provider Dr. Dean Del Cid DO Referring Provider [phone] Dr. Dean Del Cid DO Emergency Provider [phone] Dr. Ken Mari MD Emergency Provider Provider MD, Not In System Primary Care Provider Unavailable GO RICE Referring Unavailable GO RICE Attending Unavailable GO RICE Referring Unavailable GO RICE Attending Unavailable GO RICE Attending Unavailable Faheem FLEMING, Dr. Paulino Primary Care Provider [phone] Jacob Dominguez MD Attending Provider [phone] Faheem DO, Dr. Paulino Referring Provider Aiyana Bolanos Attending Provider Colten FLEMING, Dr. Moran Attending Provider Kamaljit LUCAS, Dr. Rogers Attending Provider Gracia LUCAS, Dr. Hansen Attending Provider Faheem FLEMING, Dr. Paulino Primary Care Provider [phone] Faheem FLEMING, Dr. Paulino Primary Care Provider Faheem FLEMING, Dr. Paulino Referring Provider Aiyana Bolanos Attending Provider Ivy FLEMING, Dr. Weiner Emergency Provider Faheem DO, Dr. Paulino Primary Care Provider Kamaljit LUCAS, Dr. Rogers Attending Provider [phone] Dr. Ken Mari MD Emergency Provider Ivy FLEMING, Dr. Weiner Attending Provider Ungap DO, Dr. Samuels Emergency Provider HALKO DO, EUGENIO Attending Unavailable HALKO DO, [...] Care Unavailable HALKO DO, EUGENIO Attending Unavailable Ungur DO, Dr. Samuels Attending Provider Crystal FLEMING, Dr. Monzon Emergency Provider Halko, Eugenio Primary Care Unavailable Tyrone Fagan Attending Unavailable Halko, Eugenio Referring Unavailable Mollison, Jacob Attending Unavailable Halko, Eugenio Primary Care Unavailable Halko, Eugenio Primary Care Unavailable AdrianMemoAiyana Referring Unavailable AdrianPauloyn Attending Unavailable Halko, Eugenio Primary Care Unavailable Halko, Eugenio Referring Unavailable AdrianPauloyn Attending Unavailable Halko, Eugenio Primary Care Unavailable Tyrone Fagan Attending Unavailable Halko, Eugenio Referring Unavailable Halko, Eugenio Primary Care Unavailable AdrianAiyana Attending Unavailable Halko, Eugenio Primary Care Unavailable Barrett Leonard Attending Unavailable Halko, Eugenio Primary Care Unavailable Jacob Dominguez Referring Unavailable Jacob Dominguez Attending Unavailable Ungur, Remus Attending Unavailable Halko, Eugenio Primary Care Unavailable Husam Haynes Attending Unavailabl e Halko, Eugenio Primary Care Unavailable Halko, Eugenio Primary Care Unavailable Ken Mari Attending Unavailable Nicolás Rojas Attending Unavailable Halko, Eugenio Primary Care Unavailable Halko, Eugenio Primary Care Unavailable Ungur, Remus Attending Unavailable Halko, Eugenio Primary Care Unavailable Dean Del Cid Referring Unavailable Dean Del Cid Attending Unavailable Halko, Eugenio Primary Care Unavailable Dennis Strickland Referring Unavailable Dennis Strickland Attending Unavailable Halko, Eugenio Primary Care Unavailable Ken Mari Attending Unavailable Halko, Eugenio Primary Care Unavailable Ungur, Remus Attending Unavailable Halko, Eugenio Primary Care Unavailable Halko, Eugenio Referring Unavailable Jacob Dominguez Attending Unavailable Allergies Allergy Classification Reported Allergen(s) Allergy Type Date of Onset Reaction(s) Facility Acetaminophen / HYDROcodone (1 source) Acetaminophen / HYDROcodone; Translations: [Vicodin TABS] [facility]: Adhesive Tape (1 source) Adhesive Tape [facility]: NSAIDs (1 source) Naproxen; Translations: [Naprosyn] [facility]: Opioid Agonists (2 sources) traMADol; Translations: [Ultram] [facility] Work Phone: (17 sources) acetaminophen / HYDROcodone; Translations: [HYDROCODONE-ACET AMINOPHEN] Drug Allergy 7 Rash [facility] Rep[facility] (20 sources) naproxen; Translations: [NAPROXEN] Drug Allergy 7 Rash [facility] Rep[facility] (15 sources) traMADol; Translations: [TRAMADOL HCL] Drug Allergy 5 GI Upset [facility] Rep[facility] (20 sources) Acetaminophen / HYDROcodone; Translations: [acetaminophen-hy drocodone] Drug Allergy [facility] (20 sources) Codeine; Translations: [codeine] Drug Allergy 2 Nausea [facility] (20 sources) traMADol; Translations: [tramadol] Drug Allergy 1 Upset Stomach [facility] (20 sources) Tape, plastic Allergy to substance Eruption (morphologic abnormality) [facility] (14 sources) predniSONE; Translations: [prednisone] Drug Allergy 2 Weal (disorder) [facility] (8 sources) Acetaminophen Drug Allergy 8 Itching [facility] (20 sources) HYDROcodone Drug Allergy 1 Upset Stomach [facility] (20 sources) Ibuprofen; Translations: [ibuprofen] Drug Allergy 2 Stomach ache (finding) [facility] Work Phone: (4 sources) gabapentin; Translations: [gabapentin] Drug Allergy 2 Drowsy (finding), Other (See Comments) [facility] (18 sources) Lidocaine; Translations: [lidocaine topical] Drug Allergy 2 Eruption of skin (disorder), Rash [facility] (11 sources) methylPREDNISolon e; Translations: [methylprednisolo ne] Drug Allergy rash, upset stomach [facility] (20 sources) nabumetone; Translations: [nabumetone] Drug Allergy Dyspnea (finding) [facility] (2 sources) Acetaminophen / HYDROcodone Drug Allergy [facility] (2 sources) HYDROcodone Drug Allergy [facility] (2 sources) Ibuprofen Drug Allergy [facility] (4 sources) traMADol Drug Allergy [facility] (20 sources) Ketorolac Drug Allergy 2 [facility] (13 sources) cyclobenzaprine; Translations: [cyclobenzaprine] Drug Allergy itching, rash [facility] (17 sources) Adhesive Tape; Translations: [adhesive tape] Propensity to adverse reactions 2 [facility] (9 sources) Buprenorphine; Translations: [buprenorphine] Drug Allergy Nausea (finding) [facility] (1 source) oxyCODONE; Translations: [oxycodone] Drug Allergy Itching (finding) [facility] (9 sources) tamsulosin; Translations: [tamsulosin] Drug Allergy Itching (finding) [facility] (8 sources) Docusate; Translations: [docusate] Drug Allergy Itching (finding) [facility] (11 sources) Adhesive Tape-Silicones; Translations: [ADHESIVE TAPE-SILICONES] Drug Allergy 3 Itching [facility] (9 sources) meloxicam Drug Allergy 5 Muscle [address] [facility] (2 sources) Adhesive agent; Translations: [ADHESIVE] Propensity to adverse reactions to drug 5 [facility] (1 source) HYDROcodone Drug Allergy [address] [facility] (1 source) Ibuprofen Drug Allergy [address] [facility] (1 source) Ketorolac Drug Allergy [address] [facility] (1 source) meloxicam Drug Allergy [address] [facility] (1 source) traMADol Drug Allergy [facility] Rep[facility] Medications Current Medications Medication Drug Class(es) Dates Sig (Normalized) Sig (Original) acetaminophen 500 mg oral tablet (17 sources) Start: 12-03-2024 End: 06-01-2025 acetaminophen 500 mg oral tablet Dose : 500 mg = 1 tab(s), Oral, q8h, X 90 day(s), # 270 tab(s), 1 Refill(s), 06/01/25 11:17:00 AM EDT, Pharmacy: [facility], 180, cm, 12/03/24 10:42:00 EST, Height, kg, [...] oral tablet (20 sources) Opioid Agonist Start: 05-20-2025 End: 06-19-2025 take 1 tablet by mouth every six hours as needed for pain Oxycodone-Acetaminop hen 5-325 mg tablet Active 1 {tbl} PO EVERY 6 HOURS NEEDED as needed for Pain 12 3 0 May 31, 2025 Contusion of back Contusion of unspecified back wall of thorax, initial encounter Start: 05-20-2025 End: 08-29-2025 take 1 tablet by mouth every six hours acetaminophen-oxycodone 325 mg-7.5 mg or al tablet Dose = 1 tab(s), Oral, q6hr, fill on or after 05/20/2025, # 120 tab(s), 0 Refill(s), Pharmacy: [facility] #[id number], Rotator cuff tear, 176.5, [...] day(s), # 120 tab(s), 0 Refill(s), Pharmacy: [facility] #[id number], Rotator cuff tear, 177, [...] tablet, Oral, ONCE, 1 dose , On 02/23/25 at 0545 Start: 09-11-2024 End: 10-11-2024 take 1 tablet by mouth every six hours as needed for pain Percocet 5 mg-325 mg oral tablet Dose = 1 tab(s), Oral, q6h, PRN Pain, fill on or after 09/13/2024, X 30 day(s), # 120 tab(s), 0 Refill(s), Pharmacy: [facility], Low back pain DDD (degenerative disc disease), lumbar, 180, cm, 09/11/24 9:44:00 EST, Height, 70.2, kg, 09/11/24 9:44:00 EST, Dosing Weight Start Date: 09/11/24 Stop Date: 10/11/24 Status: Ordered Start: 07-06-2024 End: 06-11-2025 Oxycodone-Acetaminophen (Per cocet) 5-325 mg tablet Discontinued 1 {tbl} PO Q8H as needed for pain 10 3 0 November 25, 2024 June 11, 2025 9:49am Strain of neck muscle Strain of muscle, fascia and tendon at neck level, initial encounter Start: 04-16-2022 End: 10-09-2023 Oxycodone-Acetaminophen (Per cocet) 5-325 mg tablet Discontinued 1 {tbl} PO EVERY 6 HOURS as needed for pain 10 3 0 April 16, 2021October 09, 2023 2:17pm Contusion of pelvic region [...] day(s), # 28 tab(s), 0 Refill(s), Pharmacy: [facility]/pharmacy #[id number], Back pain Lumbar radiculopathy, 178, cm, 02/20/22 [...] pain, # 20 tab(s), 0 Refill(s), Pharmacy: [facility]/pharmacy #[id number], Lumbar radiculopathy DDD (degenerative disc disease), [...] pain, # 20 tab(s), 0 Refill(s), Pharmacy: [facility]/pharmacy #[id number], Right shoulder pain, 185, cm, 12/07/21 [...] TABLET PO EVERY 6 HOURS NEEDED 8 3 November 26, 2018 1:00am November 29, 2018 [...] inhaler, # 1 EA, 5 Refill(s), Pharmacy: [facility] #[id number], Chronic obstructive pulmonary disease, [...] inhaler, # 1 EA, 5 Refill(s), Pharmacy: [facility] #[id number], Chronic obstructive pulmonary disease, [...] inhaler, # 1 EA, 5 Refill(s), Pharmacy: [facility], 180, cm, 04/16/24 13:44:00 EDT, Height, kg, 04/16/24 13:42:00 EDT, Dosing Weight Start Date: 06/18/24 Stop Date: 12/15/24 Status: Ordered Start: 11-19-2023 End: 05-17-2024 take 2 puff(s) by inhalation every four hours albuterol MDI (90 mcg/inh) CFC free inhalation aerosol 2 puff(s), Inhalation, q4h, ok to fill generic equivalent rescue inhaler, # 1 EA, 5 Refill(s), Pharmacy: [facility] #[id number], 180, cm, 11/19/23 13:28:00 EST, Height, kg, 11/19/23 13:28:00 EST, Dosing Weight Start Date: 11/19/23 Stop Date: 05/17/24 Status: Ordered Start: 07-03-2023 End: 12-30-2023 take 2 puff(s) by inhalation every four hours albuterol MDI (90 mcg/inh) CFC free inhalation aerosol 2 puff(s), Inhalation, q4h, ok to fill generic equivalent rescue inhaler, # 1 EA, 5 Refill(s), Pharmacy: [facility]/pharmacy #[id number], 178, cm, 06/27/23 10:23:00 EDT, Height, kg, 06/27/23 10:23:00 EDT, Dosing Weight Start Date: 07/03/23 Stop Date: 12/30/23 Status: Ordered Start: 11-23-2022 End: 05-22-2023 take 2 puff(s) by inhalation every four hours albuterol MDI (90 mcg/inh) CFC free inhalation aerosol 2 puff(s), Inhalation, q4h, ok to fill generic equivalent rescue inhaler, # 1 EA, 5 Refill(s), Pharmacy: [facility]/pharmacy #[id number], 178, cm, 11/16/22 15:20:00 EST, Height, kg, 11/23/22 13:45:00 EST, Dosing Weight Start Date: 11/23/22 Stop Date: 05/22/23 Status: Ordered Start: 09-22-2022 End: 03-21-2023 take 2 puff(s) by inhalation every four hours albuterol MDI (90 mcg/inh) CFC free inhalation aerosol 2 puff(s), Inhalation, q4h, ok to fill generic equivalent rescue inhaler, # 1 EA, 5 Refill(s), Pharmacy: [facility]/pharmacy #[id number], 178, cm, 09/22/22 13:53:00 EST, Height, kg, 09/22/22 13:53:00 EST, Dosing Weight Start Date: 09/22/22 Stop Date: 03/21/23 Status: Ordered Start: 07-27-2022 End: 01-23-2023 take 2 puff(s) by inhalation every four hours albuterol MDI (90 mcg/inh) CFC free inhalation aerosol 2 puff(s), Inhalation, q4h, ok to fill generic equivalent rescue inhaler, # 1 EA, 5 Refill(s), Pharmacy: [facility]/pharmacy #[id number], 178, cm, 07/27/22 13:49:00 EDT, Height, kg, 07/27/22 13:49:00 EDT, Dosing Weight Start Date: 07/27/22 Stop Date: 01/23/23 Status: Ordered Start: 06-28-2022 End: 07-28-2022 take 2 puff(s) by inhalation every four hours albuterol MDI (90 mcg/inh) CFC free inhalation aerosol 2 puff(s), Inhalation, q4h, ok to fill generic equivalent rescue inhaler, # 1 EA, 0 Refill(s), Pharmacy: [facility]/pharmacy #[id number], 178, cm, 05/29/22 11:16:00 EDT, Height Start Date: 06/28/22 Stop Date: 07/28/22 Status: Ordered atorvastatin 40 mg oral tablet (20 sources) HMG-CoA Reductase Inhibitor Start: 01-13-2023 take 1 tablet by mouth at bedtime Atorvastatin (Lipitor) 40 mg Tablet Active 40 mg PO AT BEDTIME January 13, 2023 12:00am Start: 01-28-2019 take 1 tablet by angel [...] tablet (20 sources) [id number] Platelet Inhibitor Start: 10-09-2023 End: 11-13-2024 take 1 tablet by mouth once daily Clopidogrel 75 mg tablet Active 75 mg PO daily November 13, 2024 3:10pm Start: 10-09-2023 Clopidogrel Ac tive MG October 09, 2023 1:00am cyclobenzaprine hydrochloride 10 mg oral tablet (20 sources) Muscle Relaxant Start: 05-31-2025 End: 06-11-2025 take 1 tablet by mouth at bedtime as needed for muscle spasms Cyclobenzaprine 10 mg tablet Active 10 mg PO AT BEDTIME NEEDED as needed for Muscle Spasm 10 0 June 11, 2025 9:49am Start: 11-05-2024 take 1 tablet by angel th three times daily as needed for muscle [...] A DAY as needed for Muscle Spasm 20 0 July 06, 2024 12:00am November 13, 2024 [...] (or pain). diazePAM 5 mg oral tablet (9 sources) Benzodiazepine Start: 01-02-20 take 1 tablet by mouth every eight hours as needed for muscle spasms Diazepam 5 mg tablet Active 5 mg PO EVERY 8 HOURS as needed for Muscle Spasm 10 0 January 01, 2025 12:00am dilTIAZem hydrochloride 120 [...] fissue, # 45 gram(s), 2 Refill(s), Pharmacy: [facility], 180, cm, 12/22/24 13:50:00 EST, Height, 72.2, kg, 12/22/24 13:50:00 EST, Dosing Weight Start Date: 12/22/24 Stop Date: 03/22/25 Status: Ordered Medication Dispense Status: Completed Quantity: 45.0 Unit: g Total Allowed Fills: 3 Fills Dispensed: 0 Start: 12-22-2024 End: 03-22-2025 Diltiazem Diltiazem, 1 appli cation, Topical, 4x/Day, 2% strength base cream, PRN anal fissue, # 45 gram(s), 2 Refill(s), Pharmacy: [facility], 180, cm, 12/22/24 13:50:00 EST, Height, 72.2, kg, 12/22/24 13:50:00 EST, Dosing Weight Start Date: 12/22/24 Stop Date: 03/22/25 Status: Ordered Quantity: 45.0 Unit: g Repeat number: 3 Start: 04-16-2024 End: 07-15-2024 Diltiazem Diltiazem, 1 appli cation, Topical, 4x/Day, 2% strength, PRN anal fissue, # 45 gram(s), 2 Refill(s), Pharmacy: [facility] #[id number], 180, cm, 04/16/24 13:44:00 EDT, Height, 69.4, kg, 04/16/24 13:42:00 EDT, Dosing Weight Start Date: 04/16/24 Stop Date: 07/15/24 Status: Ordered Start: 04-26-2023 End: 07-25-2023 Diltiazem Diltiazem, 1 appli cation, Topical, 4x/Day, 2% strength, PRN anal fissue, # 45 gram(s), 2 Refill(s), Pharmacy: [facility]/pharmacy #[id number], 178, cm, 04/25/23 13:12:00 EDT, Height, [...] pills, # 1 EA, 0 Refill(s), Pharmacy: [facility], Prescription lost, 180, cm, 11/28/24 13:10:00 EST, [...] pills, # 1 EA, 0 Refill(s), Pharmacy: [facility], Prescription lost, 180, cm, 11/28/24 13:10:00 EST, [...] day(s), # 135 cap(s), 1 Refill(s), Pharmacy: [facility] #[id number], 176.5, cm, 05/20/25 13:56:00 [...] day(s), # 135 cap(s), 1 Refill(s), Pharmacy: [facility] #330, 177, cm, 03/02/25 16:22:00 [...] day(s), # 135 cap(s), 1 Refill(s), Pharmacy: [email or web address] #[id number], 180, cm, 11/19/23 13:28:00 EST, Height, kg, [...] evening, # 90 cap(s), 1 Refill(s), Pharmacy: [facility]/pharmacy #[id number], 178, cm, 10/26/22 13:53:00 EST, Height, [...] BID, # 180 cap(s), 1 Refill(s), Pharmacy: [facility]/pharmacy #[id number], 178, cm, 02/20/22 15:58:00 EDT, Height, kg, 02/20/22 15:58:00 EDT, Dosing Weight Start Date: 02/20/22 Stop Date: 08/19/22 Status: Ordered Start: 03-17-2022 DULoxetine 20 mg oral delayed release capsule Dose : 20 mg = 1 cap(s), Oral, BID, # 60 cap(s), 1 Refill(s), Pharmacy: [facility]/pharmacy #[id number], 185, cm, 01/05/22 10:16:00 EDT, Height, kg, 01/05/22 10:16:00 EDT, Dosing Weight Start Date: 01/05/22 Status: Ordered Comment on above: TAKE 1 CAPSULE BY MO UTH TWICE A DAY FOR 90 DAYS - DOSE INCREASE - DO NOT CRUSH OR CHEW Epson salts (11 sources) Start: 04-16-2024 Epson salts Ep son salts, See Instructions, 1 EA = one box/contianer of epson salts; soak in sitz bath up to 4x/day, # 1 EA, 5 Refill(s), Pharmacy: [facility] #[id number], 180, cm, 04/16/24 13:44:00 EDT, Height, 69.4, kg, 04/16/24 13:42:00 EDT, Dosing Weight Start Date: 04/16/24 Status: Ordered Quantity: 1.0 Unit: EA Repeat number: 6 Start: 04-16-2024 Epson salts Ep son salts, See Instructions, 1 EA = one box/contianer of epson salts; soak in sitz bath up to 4x/day, # 1 EA, 5 Refill(s), Pharmacy: [facility] #[id number], 180, cm, 04/16/24 13:44:00 EDT, Height, 69.4, kg, 04/16/24 13:42:00 EDT, Dosing Weight Start Date: 04/16/24 Status: Ordered Start: 04-28-2022 Epson salts Ep son salts, See Instructions, 1 EA = one box/contianer of epson salts; soak in sitz bath up to 4x/day, # 1 EA, 0 Refill(s), Pharmacy: [facility]/pharmacy #[id number], 178, cm, 04/28/22 13:02:00 EDT, Height, 73.4 Start Date: 04/28/22 Status: Ordered escitalopram 10 mg oral tablet (1 source) Serotonin Reuptake Inhibitor Start: 12-07-2021 End: 02-05-2022 escitalopram 10 mg oral tablet Dose : 10 mg = 1 tab(s), Oral, qDay, start 0.5 tablet x7 days, then increase to full tablet, # 30 tab(s), 1 Refill(s), Pharmacy: [facility]/pharmacy #[id number], 185, cm, 12/07/21 9:52:00 EST, Height, kg, 12/07/21 9:52:00 EST, Dosing Weight Start Date: 12/07/21 Stop Date: 02/05/22 Status: Ordered etodolac 300 mg oral capsule (1 source) Nonsteroidal Anti-inflammatory Drug Start: 09-11-2024 End: 12-10-2024 etodolac 300 mg oral capsule Dose : 300 mg = 1 cap(s), Oral, TID, # 90 cap(s), 2 Refill(s), Pharmacy: [facility], 180, cm, 09/11/24 9:44:00 EST, Height, kg, 09/11/24 9:44:00 EST, Dosing Weight Start Date: 09/11/24 Stop Date: 12/10/24 Status: Ordered ferrous sulfate 325 mg oral tablet (19 sources) Start: 11-13-2024 End: 08-29-2025 take 1 tablet by mouth once daily Ferrous Sulfate 325 mg (65 mg iron) tablet Active 325 mg PO daily November 13, 2024 1:00am Start: 11-19-2023 End: 10-13-2024 ferrous sulfate 325 mg (65 m g elemental iron) oral tablet Dose : 325 mg = 1 tab(s), Oral, BID, # 180 tab(s), 1 Refill(s), Pharmacy: [facility] #[id number], 180, cm, 04/16/24 13:44:00 EDT, Height, kg, [...] BID, # 180 tab(s), 1 Refill(s), [id number], 178, cm, 03/28/23 13:16:00 EDT, Height, kg, 03/28/23 13:16:00 EDT, Dosing Weight Start Date: 03/30/23 Stop Date: 09/26/23 Status: Ordered Comment on above: Take 1 tablet by angel every 12 hours. finasteride 5 mg oral tablet (2 sources) 5-alpha Reductase Inhibitor Start: 05-20-2025 finasteride 5 mg oral tablet Dose : 5 mg = 1 tab(s), Oral, qDay, # 90 tab(s), 1 Refill(s), Pharmacy: [facility] #[id number], 176.5, cm, 05/20/25 13:56:00 EDT, Height, kg, 05/20/25 13:56:00 EDT, Dosing Weight Start Date: 05/20/25 Status: Ordered Medication Dispense Status: Completed Quantity: 90.0 Unit: tab(s) Total Allowed Fills: 2 Fills Dispensed: 0 Start: 04-02-2025 finasteride 5 mg oral tablet Dose : 5 mg = 1 tab(s), Oral, qDay, # 90 tab(s), 0 Refill(s), Pharmacy: [facility] #[id number], 177, cm, 04/02/25 15:00:00 [...] 05/31/2025, # 120 cap(s), 2 Refill(s), Pharmacy: [facility] #330, Sciatica, 176.5, cm, 05/20/25 [...] on above: Take 1 capsule by mo [facility] four times daily for 30 days. ibuprofen [...] qDay, # 3 EA, 1 Refill(s), Pharmacy: [facility] #[id number], Chronic obstructive pulmonary disease, [...] qDay, # 3 EA, 1 Refill(s), Pharmacy: [facility], 180, cm, 04/16/24 13:44:00 EDT, Height, kg, [...] qDay, # 3 EA, 1 Refill(s), Pharmacy: [facility] #[id number], 180, cm, 11/19/23 13:28:00 EST, Height, kg, 11/19/23 13:28:00 EST, Dosing Weight Start Date: 11/19/23 Stop Date: 05/17/24 Status: Ordered Start: 10-26-2022 End: 04-24-2023 take 1 dose by inhalation once daily Stiolto Respimat 60 ACT 2.5 mcg-2.5 mcg/inh inhalation aerosol Dose = 2 puff(s), Inhalation, qDay, # 3 EA, 1 Refill(s), Pharmacy: [facility]/pharmacy #[id number], 178, cm, 10/26/22 13:53:00 EST, Height, kg, 10/26/22 13:53:00 EST, Dosing Weight Start Date: 10/26/22 Stop Date: 04/24/23 Status: Ordered Start: 09-22-2022 End: 10-22-2022 take 1 dose by inhalation once daily Stiolto Respimat 60 ACT 2.5 mcg-2.5 mcg/inh inhalation aerosol Dose = 2 puff(s), Inhalation, qDay, # 1 EA, 0 Refill(s), Pharmacy: [facility]/pharmacy #[id number], 178, cm, 09/22/22 13:53:00 EST, Height Start Date: 09/22/22 Stop Date: 10/22/22 Status: Ordered Comment on above: INHALE 2 PUFFS DAILY omeprazole 40 mg delayed release oral capsule (20 sources) Proton Pump Inhibitor Start: 11-19-2023 End: 05-17-2024 omeprazole 40 mg oral delayed release capsule Dose : 40 mg = 1 cap(s), Oral, qDay, # 90 cap(s), 1 Refill(s), Pharmacy: [facility] #[id number], 180, cm, 11/19/23 13:28:00 EST, Height, kg, [...] pantoprazole 40 mg delayed release oral tablet (12 sources) Proton Pump Inhibitor Start: take 1 tablet by mouth once daily Pantoprazole 40 mg tablet,delayed release (DR/EC) Active 40 mg PO daily November 13, 2024 1:00am Start: 08-15-2024 pantoprazole 4 0 mg oral enteric coated tablet Dose : 40 mg = 1 tab(s), Oral, qDay, stop omeprazole, # 90 tab(s), 1 Refill(s), Pharmacy: [facility], 180, cm, 08/15/24 14:58:00 EDT, Height, kg, 08/15/24 14:58:00 EDT, Dosing Weight Start Date: 08/15/24 Status: Ordered PEG-3350 with Electrolytes (Eqv-GoLYTELY) oral powder for reconstitution (4 sources) Start: 04-16-2024 PEG-3350 with Electrolytes (Eqv-GoLYTELY) oral powder for reconstitution See Instructions, Take as directed 1 day before colonoscopy. Follow instructions as provided by your GI provider at [facility] # 1 EA, 0 Refill(s), Pharmacy: [facility] #[id number], 180, cm, 04/16/24 13:44:00 EDT, Height, kg, 04/16/24 13:42:00 EDT, Dosing Weight Start Date: 04/16/24 Status: Ordered Medication Dispense Status: Completed Quantity: 1.0 Unit: EA Total Allowed Fills: 1 Fills Dispensed: 0 Start: 04-16-2024 PEG-3350 with Electrolytes (Eqv-GoLYTELY) oral powder for reconstitution See Instructions, Take as directed 1 day before colonoscopy. Follow instructions as provided by your GI provider at [facility]., # 1 EA, 0 Refill(s), Pharmacy: [facility] #[id number], 180, cm, 04/16/24 13:44:00 EDT, Height, kg, 04/16/24 13:42:00 EDT, Dosing Weight Start Date: 04/16/24 Status: Ordered Quantity: 1.0 Unit: EA Repeat number: 1 Start: 04-16-2024 PEG-3350 with Electrolytes (Eqv-GoLYTELY) oral powder for reconstitution See Instructions, Take as directed 1 day before colonoscopy. Follow instructions as provided by your GI provider at [facility]., # 1 EA, 0 Refill(s), Pharmacy: [facility] #[id number], 180, cm, 04/16/24 13:44:00 EDT, Height, kg, 04/16/24 13:42:00 EDT, Dosing Weight Start Date: 04/16/24 Status: Ordered Start: 08-15-2023 PEG-3350 with Electrolytes (Eqv-GoLYTELY) oral powder for reconstitution See Instructions, Take as directed 1 day before colonoscopy. Follow instructions as provided by your GI provider at [facility]., # 1 EA, 0 Refill(s), Pharmacy: [facility]/pharmacy #[id number], 178, cm, 08/15/23 11:10:00 EDT, Height, kg, 08/15/23 11:10:00 EDT, Dosing Weight Start Date: 08/15/23 Status: Ordered polyethylene glycol 3350 64353 mg powder for oral solution (20 sources) [...] 11-29-2022 End: 12-18-2022 prednisone 10mg tab (TAPER) 23-85-18-20-10-5mg, Oral, qDay, 1L5amaw,7V5oclt,7A2fywj, 4J0qozs,6Y1otiz,0.5X4 days., # 47 tab(s), 0 Refill(s), Pharmacy: [facility]/pharmacy #[id number], 178, cm, 11/16/22 15:20:00 EST, Height [...] stop, # 30 tab(s), 0 Refill(s), Pharmacy: [facility]/pharmacy #[id number], 185.4, cm, 03/08/22 14:07:00 ED... Start Date: 03/22/22 Status: Ordered Start: 03-07-2022 predniSONE (DE LTASONE) 20 MG tablet Take by mouth 0 03/07/2022 Active Start: 03-07-2022 End: 04-02-2022 take 2 tablets by mouth once daily Prednisone 20 mg tablet Discontinued 40 mg PO DAILY 10 March 07, 2022 12:00am April 02, 2022 [...] constipation, # 425 gram(s), 1 Refill(s), Pharmacy: [facility] #[id number], 177, cm, 04/02/25 15:00:00 [...] constipation, # 425 gram(s), 1 Refill(s), Pharmacy: [facility] #[id number], 180, cm, 04/16/24 13:44:00 EDT, Height, kg, 04/16/24 13:42:00 EDT, Dosing Weight Start Date: 04/16/24 Status: Ordered Start: 11-19-2023 take 3.4 doses by mo uth three times daily as needed for constipation Metamucil 3.4 g/5.2 g oral powder for reconstitution Dose : 3.4 gram(s) =, Oral, TID, PRN as needed for constipation, # 425 gram(s), 1 Refill(s), Pharmacy: [facility] #[id number], 180, cm, 11/19/23 13:28:00 EST, Height, kg, 11/19/23 13:28:00 EST, Dosing Weight Start Date: 11/19/23 Status: Ordered Start: 06-27-2023 take 3.4 doses by mo uth three times daily as needed for constipation Metamucil 3.4 g/5.2 g oral powder for reconstitution Dose : 3.4 gram(s) =, Oral, TID, PRN as needed for constipation, # 425 gram(s), 1 Refill(s), [id number], 178, cm, 06/27/23 10:23:00 EDT, Height, kg, 06/27/23 10:23:00 EDT, Dosing Weight Start Date: 06/27/23 Status: Ordered Start: 05-25-2022 [facility] daily as needed for constipation Metamucil 3.4 g/5.2 g oral powder for reconstitution Dose : 3.4 gram(s) =, Oral, TID, PRN as needed for constipation, # 425 gram(s), 1 Refill(s), [id number], 178, cm, 05/25/22 13:45:00 EDT, Height Start Date: 05/25/22 Status: Ordered Senna Leaves (3 sources) Start: 03-02-2025 Senna 8.6 mg o ral tablet Dose : 17.2 mg = 2 tab(s), Oral, qHS, PRN as needed for constipation, # 100 tab(s), 2 Refill(s), Pharmacy: [facility] #[id number], 177, cm, 03/02/25 16:22:00 EDT, Height, kg, 03/02/25 16:22:00 EDT, Dosing Weight Start Date: 03/02/25 Status: Ordered Medication Dispense Status: Completed Quantity: 100.0 Unit: tab(s) Total Allowed Fills: 3 Fills Dispensed: 0 Start: 03-02-2025 Senna 8.6 mg o ral tablet Dose : 17.2 mg = 2 tab(s), Oral, qHS, PRN as needed for constipation, # 100 tab(s), 2 Refill(s), Pharmacy: [facility] #[id number], 177, cm, 03/02/25 16:22:00 EDT, Height, kg, 03/02/25 16:22:00 EDT, Dosing Weight Start Date: 03/02/25 Status: Ordered Quantity: 100.0 Unit: tab(s) Repeat number: 3 Start: 04-16-2024 Senna 8.6 mg o ral tablet Dose : 17.2 mg = 2 tab(s), Oral, qHS, PRN as needed for constipation, # 100 tab(s), 2 Refill(s), Pharmacy: [facility] #[id number], 180, cm, 04/16/24 13:44:00 EDT, Height, kg, 04/16/24 13:42:00 EDT, Dosing Weight Start Date: 04/16/24 Status: Ordered sennosides, jail 8.6 mg oral tablet (4 sources) Start: 11-19-2023 senna (sennosi diony) 8.6 mg oral tablet Dose : 17.2 mg = 2 tab(s), Oral, qHS, PRN as needed for constipation, # 100 tab(s), 1 Refill(s), Pharmacy: [facility] #[id number], 180, cm, 11/19/23 13:28:00 EST, Height, kg, 11/19/23 13:28:00 EST, Dosing Weight Start Date: 11/19/23 Status: Ordered Start: 06-27-2023 senna (sennosi diony) 8.6 mg oral tablet Dose : 17.2 mg = 2 tab(s), Oral, qHS, PRN as needed for constipation, # 100 tab(s), 1 Refill(s), Pharmacy: [facility]/pharmacy #[id number], 178, cm, 06/27/23 10:23:00 EDT, Height, kg, 06/27/23 10:23:00 EDT, Dosing Weight Start Date: 06/27/23 Status: Ordered Start: 06-11-2023 take 2 tablets [facility] daily at bedtime as needed for [...] day(s), # 20 tab(s), 0 Refill(s), Pharmacy: [facility]/pharmacy #[id number], 185.4, cm, 03/08/22 14:07:00 EDT, Height, [...] On Sun02/23/25 at 0545, For 1 dose [id number] 200 actuat albuterol 0.09 mg/actuat metered dose [...] 0 diphenhydrAMINE hydrochloride 25 mg oral capsule (10 sources) Histamine-1 Receptor Antagonist Start: 2024 End: [...] Comment on above: TAKE 1 CAPSULE BY [facility] TWICE A DAY FOR 30 DAYS NEEDED FOR CONSTIPATION 120 actuat fluticasone propionate 0.22 mg/actuat metered dose inhaler (4 sources) Corticosteroid Start: 11-19-2023 End: 03-31-2025 take 2 puff(s) by mouth twice daily Flovent HFA 220 mcg/inh inhalation aerosol 2 puff(s), Inhalation, BID, 220 mcg per inh; rinse mouth and throat after use, # 1 EA, 5 Refill(s), Pharmacy: [facility], 180, cm, 10/02/24 9:56:00 EST, Height, kg, [...] BID, # 15 gram(s), 2 Refill(s), Pharmacy: [facility] #330, Cream, 177, cm, 04/02/25 15:00:00 EDT, Height, 67.5, kg, 04/02/25 15:00:00 EDT, Dosing Weight Start Date: 04/02/25 Stop Date: 05/02/25 Status: Ordered Medication Dispense Status: Completed Quantity: 15.0 Unit: g Total Allowed Fills: 3 Fills Dispensed: 0 Start: 04-02-2025 End: 05-02-2025 hydrocortisone 1% topical cr eam Apply 1 jose d, Topical, BID, # 15 gram(s), 2 Refill(s), Pharmacy: [facility] #330, Cream, 177, cm, 04/02/25 15:00:00 EDT, Height, 67.5, kg, 04/02/25 15:00:00 EDT, Dosing Weight Start Date: 04/02/25 Stop Date: 05/02/25 Status: Ordered Quantity: 15.0 Unit: g Repeat number: 3 Start: 04-16-2024 End: 05-16-2024 hydrocortisone 1% topical cr eam Apply 1 jose d, Topical, BID, # 15 gram(s), 2 Refill(s), Pharmacy: [facility] #[id number], Cream, 180, cm, 04/16/24 13:44:00 EDT, Height, 69.4, kg, 04/16/24 13:42:00 EDT, Dosing Weight Start Date: 04/16/24 Stop Date: 05/16/24 Status: Ordered Start: 11-19-2023 End: 12-19-2023 hydrocortisone 1% topical cr eam Apply 1 jose d, Topical, BID, # 15 gram(s), 2 Refill(s), Pharmacy: [facility] #[id number], Cream, 180, cm, 11/19/23 13:28:00 EST, Height, 70.9, kg, 11/19/23 13:28:00 EST, Dosing Weight Start Date: 11/19/23 Stop Date: 12/19/23 Status: Ordered Start: 06-27-2023 End: 07-27-2023 hydrocortisone 1% topical cr eam Apply 1 jose d, Topical, BID, # 15 gram(s), 2 Refill(s), [id number], Cream, 178, cm, 06/27/23 10:23:00 EDT, Height, 64.7, kg, 06/27/23 10:23:00 EDT, Dosing Weight Start Date: 06/27/23 Stop Date: 07/27/23 Status: Ordered Start: 04-27-2022 Hydrocortisone Acetate (Anusol-Hc) 25 mg suppository Active 25 mg RC AT BEDTIME 12 0 April 27, 2022 12:00am Start: 04-27-2022 Hydrocortisone Acetate (Anusol-Hc) 25 mg suppository Active 25 MG RC AT BEDTIME April 27, 2022 12:00am Comment on above: Hydrocortisone Aceta te (Anusol-Hc) 25 mg suppository Active 25 MG RC AT BEDTIME April 26, 2022 11:00pm levoFLOXacin 750 mg oral tablet (9 sources) Quinolone Antimicrobial Start: 07-01-20 24 End: 11-13-19 take 1 tablet by mouth [...] 6 hours as needed. polyethylene glycol 3350 [id number] mg / potassium chloride 2970 mg / sodium bicarbonate 6740 mg / sodium chloride 5860 mg / sodium sulfate 83765 mg powder for oral solution (2 sources) [...] fracture of second lumbar vertebra, initial encounter ([facility]) 1 Units once daily. Wheeled [...] pectoris] 01-04-2023 Chronic Deficiency and other anemia (9 sources) Anemia; Translations: [Anemia, unspecified] 11-13-2024 Episodic [...] Onset: 7 12-07-2021 Fracture of lower limb (9 sources) Fracture of left lower limb; Translations: [Unspecified fracture of left lower leg, initial encounter for closed fracture] 11-13-2024 Episodic Comment on above: Hardware Genitourinary symptoms and ill-defined conditions (20 sources) Nocturia 01-19-2021 Episodic Headache; including migraine (1 source) Headache; including migraine; Translations: [Headache, unspecified] Onset: Hemorrhoids (20 sources) Bleeding external hemorrhoids; Translations: [Residual hemorrhoidal skin tags] 05-25-2022 Episodic Hyperplasia of prostate (8 sources) Benign prostatic hypertrophy with outflow obstruction; Translations: [Benign prostatic hyperplasia] 02-21-2023 Chronic Inflammatory conditions of male genital organs (4 sources) Prostatitis 07-02-2024 Episodic Intestinal obstruction without hernia (13 sources) Fecal impaction; Translations: [Fecal impaction of rectum] 05-31-2023 Episodic Intracranial injury (11 sources) Concussion injury of body structure; Translations: [...] Translations: [Vitamin D deficiency, unspecified] Onset: Chronic Osteoarthritis (20 sources) Arthritis 06-09-2018 Chronic Other [...] arthritis s urgery was recommended at the [facility] patient did not want Other connective tissue disease (20 sources) Pain in bilateral legs 03-31-2021 Episodic Other connective tissue disease (20 sources) Muscle weakness of limb 01-05-2022 Episodic Other connective tissue disease (20 sources) Recurrent falls 01-05-2022 Episodic Other connective tissue disease (20 sources) Pain in lower limb; Translations: [Pain in right leg] Onset: 5 04-22-2022 Episodic Other connective tissue disease (10 sources) Heel pain; Translations: [Pain in left foot] 2024 Episodic Other connective tissue disease (19 sources) Tear of left rotator cuff; Translations: [...] of thoracic spine 12-07-2021 Episodic Other fractures (15 sources) Closed fracture lumbar vertebra; Translations: [Unspecified [...] Heartburn; Translations: [Heartburn] Episodic Other gastrointestinal disorders (19 sources) Constipation; Translations: [Constipation, unspecified] 05-31-2023 Episodic Other gastrointestinal disorders (5 sources) Therapeutic opioid induced constipation 08-15-2023 Episodic Other injuries and conditions due to external causes (20 sources) At risk for falls 02-20-2022 Episodic Other injuries and conditions due to external causes (14 sources) Closed injury of head; Translations: [Unspecified [...] chronic pain; Translations: [Other chronic pain] Onset: 7 Chronic Other nervous system disorders (1 source) [...] left shoulder] Episodic Other non-traumatic joint disorders (20 sources) Pain in left shoulder; Translations: [Left shoulder pain] Onset: 5 11-13-2024 Episodic Other non-traumatic joint disorders (9 sources) Chronic pain of left upper limb; Translations: [Pain in left shoulder] 11-13-2024 Episodic Other nutritional; endocrine; and metabolic disorders (1 source) Weight loss; Translations: [Loss of weight] Episodic Other nutritional; endocrine; and metabolic disorders (1 source) History of hypercholesterolemia; Translations: [Personal history of other endocrine, metabolic, and immunity disorders] Episodic Peripheral and visceral atherosclerosis (15 sources) [...] spondylosis without myelopathy] Onset: 7 03-01-2021 Chronic Sprains and strains (20 sources) Injury of [...] source) cp, leg pain Onset: 5 Unclassified (4 sources) 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, lumbar region with discogenic back pain and lower extremity pain Unclassified (3 sources) Degeneration of intervertebral disc of lumbar region [...] to analgesic agent status] Onset: 05-29-2017 Episodic Nutritional deficiencies (8 sources) Iron deficiency; Translations: [Iron deficiency] Onset: 12-18-2024 03-28-2023 Episodic Other connective tissue disease (2 sources) [...] fracture of second lumbar vertebra, initial encounter ([facility])] Onset: 02-11-2023 Episodic Other fractures (1 source) Other fracture of fourth lumbar vertebra, initial encounter for closed fracture; Translations: [Other closed fracture of fourth lumbar vertebra, initial encounter ([facility])] Onset: 02-11-2023 Episodic Other injuries [...] in unspecified wrist] Onset: 05-28-2017 Episodic Other screening for suspected conditions (not mental disorders or infectious disease) (15 sources) Viral screening status; Translations: [Electrocardiogram abnormal] Onset: 12-18-2024 07-23-2023 Episodic Spondylosis; intervertebral disc disorders; other back problems (20 sources) Dorsalgia, unspecified; Translations: [Backache] Onset: 09-02-2015 08-12-2014 Episodic Unclassified (20 sources) Contusion of left hip, initial encounter 02-11-2019 Unclassified (20 sources) Contusion of right knee, initial encounter 03-24-2019 Results Test Name Value Interpretation Reference Range Facility Emergency Department Summary on 06-11-2025 Emergency Department Summary [facility] Medical Records Department [address] [place] [address] Emergency Department Summary 06/11/25 MR#: [id number] Acct: [id number] Name: WINSTON MARI Rep #: [id number] : 1955 70 From: Nicolás Rojas DO PCP: Dr. Eugenio Mayen DO Status:DEP ER Location: ED HPI History of Present Illness Chief Complaint: Back Informant: patient Onset/Context/Timing Onset: Today Context: Sudden Onset Injury: lifting Timing: Continuous Quality: Sharp Location: Thoracic, Lumbar, Buttock and Right Leg Worsened by: improves with Nothing Relieved by: Nothing Associated Symptoms Associated Symptoms: Radiation to Right Leg; Negative for Numbness, Tingling, Radiation to Left Leg, Fever, Abdominal Pain, Dysuria, Unable to Ambulate, Unable to Transfer, Urinary Retention, Urinary Incontinence, Constipation or Fecal Incontinence Narrative Narrative: Patient presents with back pain that began today. Patient states he was helping someone lift a freezer when the other person dropped his side of the freezer. Patient states the pain became worse. Patient describes it as sharp. Patient states it is over the thoracic and lumbar area. Patient states it radiates to his right knee. Patient states nothing makes it worse and nothing makes it better. Patient denies any paresthesias or weakness. Patient denies any other injuries. Patient denies any bowel or bladder changes. Patient denies any saddle anesthesia. [facility] Medical History Left rotator cuff tear Anemia GERD (gastroesophageal reflux disease) Left shoulder pain Hemorrhoid Epilepsy Sciatica High cholesterol Home Medications ???Medication ???Instructions ???Recorded ???Last Taken ???Type gabapentin 300 mg capsule 300 mg PO 4X/DAY 04/02/22 Unknown History hydrocortisone acetate 25 mg 25 mg OK QHS #12 ea 04/27/22 Unkno wn Rx [...] #10 tab s 11/25/24 Unknown Rx tablet diazepam 5 mg tablet 5 mg PO Q8 PRN Muscle Spasm #10 Unknown Rx tabs oxycodone-acetaminophen 5 mg-325 1 tab PO Q6H PRN PRN Pain 3 days 0 05/31/25 Unknown Rx mg tablet #12 TABLETS cyclobenzaprine 10 mg tablet 10 mg PO QHS PRN PRN Muscle Spasm 06/11/25 Unknown Rx #10 TABLETS Allergy/AdvReac Type Severity Reaction Status Date / Time adhesive tape (tape) AdvReac Rash Verified 06/11/25 08:32 hydrocodone (From [place]) AdvReac Upset Verified 06/11/25 08:32 Stomach ibuprofen AdvReac Upset Verified 06/11/25 08:32 Stomach ketorolac (From Toradol) AdvReac Rash Verified 06/11/25 08:32 meloxicam (From Mobic) AdvReac Muscle Verified 06/11/25 08:32 weakness naproxen AdvReac Rash Verified 06/11/25 08:32 tramadol AdvReac Upset Verified 06/11/25 08:32 Stomach Family History Other Cancer Diabetes Heart disease Surgical History Leg fracture, left S/P clamping of cerebral aneurysm Social History household members: significant other Smoking Status: Former smoker alcohol intake: former substance use type: does not use ROS ROS ED Constitutional Constitutional ED: Denies chills or fever(s) Eyes Eyes: Denies blurry vision or change in vision ENT ENT ED: Denies rhinorrhea or sore throat Cardiovascular Cardiovascular: Denies chest pain or palpitations Respiratory/Chest Respiratory/Chest: Reports dyspnea; Denies cough Gastrointestinal Gastrointestinal: Denies nausea or vomiting Genitourinary Genitourinary ED: Denies dysuria or hematuria Musculoskeletal Musculoskeletal: Reports back pain and neck pain Integumentary Denies abscess or rash Neurologic Neurologic: Reports headache(s); Denies weakness Allergic/Immunologic Allergic/Immunologic ED: Denies mouth swelling or urticaria EXAM Physical Exam Const Vital Signs: 06/11/25 08:32 Temperature 98 F Temperature Source Temporal Pulse Rate 59 L (more content not included)... Normal [facility] Anion gap in Serum or Plasma Ordered By: Abril Velarde on 05-31-2025 Anion gap [Moles/Vol] 11 mmol/L 03-05 [facility] BUN/creatinine ratioOrdered By: Abril Velarde on 05-31-2025 Urea nitrogen/Creatinine [Mass ratio] 18.2 mg/mg 08-[address] [facility] Bilirubin, totalOrdered By: Abril Velarde on 05-31-2025 Bilirubin [Mass/Vol] 0.36 mg/dL 0.00-1.30 [facility] Brain/Head without Contrasto n 05-31-2025 Brain/Head without Contrast [facility] Imaging Services [address] [place], [place] [address] Brain/Head without Contrast MR#: [id number] Acct: [id number] Name: WINSTON MARI Rep #: [id number] : 1955 M 70 From: Paul Givens MD PCP: Dr. Eugenio Mayen DO Status: REG ER Study: Brain/Head without Contrast Date of Exam: 05/22 Exam# [id number] Ordering Dr: Abril Velarde DO PROCEDURE: BRAIN/HEAD WITHOUT CONTRAST 05/31/2025 REASON FOR EXAM: FALL TECHNIQUE: BRAIN/HEAD WITHOUT CONTRAST Coronal and Sagittal reconstruction series were provided. One or more dose reduction techniques were used (e.g., Automated exposure control, adjustment of the mA and/or kV according to patient size, use of iterative reconstruction technique. RADIATION DOSE SUMMARY: CTDlvol: - mGy DLP: 1095.04 mGycm COMPARISON: CT head April 26, 2025. FINDINGS: Brain: Low density in the periventricular white matter suggests mild chronic small vessel ischemic changes. No acute intracranial hemorrhage. No acute territorial vascular infarction. No mass effect or midline shift. CSF Spaces: Moderate generalized cerebral atrophy Sinuses/Mastoids: Clear Bones: No acute bony abnormalities. Status post left occipital craniotomy. CT/Brain/Head without Contrast IMPRESSION: No acute intracranial abnormalities. Reading Location: [id number] CC: Dr. Eugenio Mayen, DO; Dr. Abril Velarde, DO [employer] Chief: Signed Normal [facility] CBC-Complete Blood Cnt No Di ffon 05-31-2025 Erythrocyte distribution width (RBC) [Ratio] 13.8 % Normal 11.6-14.[address] [facility] Comment on above: Performed By: #### L 100.0500, L500.4050 #### [facility] [address] [place], [address] Hematocrit (Bld) [Volume fraction] 35.5 % Low 40-[address] [facility] Comment on above: Performed By: #### L 100.0500, L500.4050 #### [facility] [address] [place], [address] Hemoglobin (Bld) [Mass/Vol] 12.0 g/dL Low 13.0-16.[address] [facility] Comment on above: Performed By: #### L 100.0500, L500.4050 #### [facility] [address] [place], [address] MCH (RBC) [Entitic mass] 30.8 pg Normal 27.0-32.[address] [facility] Comment on above: Performed By: #### L 100.0500, L500.4050 #### [facility] [address] [place], [address] MCHC (RBC) [Mass/Vol] 33.8 g/dL Normal 32-36 [facility] Comment on above: Performed By: #### L 100.0500, L500.4050 #### [facility] [address] [place], [address] MCV (RBC) [Entitic vol] 91.3 fL Normal 80-[address] [facility] Comment on above: Performed By: #### L 100.0500, L500.4050 #### [facility] [address] [place], [address] Platelet mean volume (Bld) [Entitic vol] 8.5 fL Normal 6.2-12.[address] [facility] Comment on above: Performed By: #### L 100.0500, L500.4050 #### [facility] [address] [place], [address] Platelets (Bld) [#/Vol] 324 10*3/uL Normal 150-[address] [facility] Comment on above: Performed By: #### L 100.0500, L500.4050 #### [facility] [address] [place], [address] RBC (Bld) [#/Vol] 3.89 10*6/uL Low 4.6-6.2 [facility] Comment on above: Performed By: #### L 100.0500, L500.4050 #### [facility] [address] [place], [address] RDW SD 46.6 fl High 35.1-43.[address] [facility] Comment on above: Performed By: #### L 100.0500, L500.4050 #### [facility] [address] [place], [address] WBC (Bld) [#/Vol] 6.6 10*3/uL Normal 4.4-11.0 [facility] Comment on above: Performed By: #### L 100.0500, L500.4050 #### [facility] [address] [place], [place], [address] CT Chest, Abd, Pel w/Contras ton 05-31-2025 CT Chest, Abd, Pel w/Contrast [facility] Imaging Services [address] [place] [address] CT Chest, Abd, Pel w/Contrast MR#: [id number] Acct: [id number] Name: WINSTON MARI Rep #: [id number] : 1955 M 70 From: Sadia Gross MD PCP: Dr. Eugenio Mayen, Status: REG ER Study: CT Chest, Abd, Pel w/Contrast Date of Exam: Exam# [id number] Ordering Dr: Abril Velarde DO PROCEDURE: CT CHEST, ABD, PEL W/CONTRAST 05/31/2025 REASON FOR EXAM: FALL, TRAUMA. Pain between shoulder blades. Hit head. Question LOC. History of cerebral aneurysm clamping. 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 History of epilepsy, HLD. TECHNIQUE: Chest, abdomen and pelvis CT with intravenous contrast. Coronal and Sagittal reconstruction series were provided. One or more dose reduction techniques were used (e.g., Automated exposure control, adjustment of the mA and/or kV according to patient size, use of iterative reconstruction technique. CONTRAST: Isovue 370 VOLUME: 100mL RADIATION DOSE SUMMARY: CTDlvol: 19.00, 12.02, 13.28 mGy DLP: 9.50, 396.21, 689.33 mGycm FINDINGS: CHEST: LUNGS: Mild diffuse centrilobular emphysema. Stable pulmonary nodules since 03/09/2022: 8.2 mm right lower lobe (Se: 602.2, Im: 100), 2.4 mm right lower lobe nodule along the major fissure (Se: 12, Im: 99) and 4.8 mm left lower lobe (Se: 12, Im: 109). No pulmonary mass. No focal airspace consolidation. Calcified granuloma in the lingula. PLEURAL SPACES: No pleural effusion. No pneumothorax. HEART: No cardiomegaly. No significant pericardial effusion. Multivessel coronary artery calcification. MEDIASTINUM/HILUM: No significant lymphadenopathy. Calcified mediastinal and colonic diverticulosis without signs left hilar lymph nodes. AORTA: No aneurysm or dissection. Scattered calcified atherosclerosis. ESOPHAGUS: Unremarkable. SOFT TISSUES: The soft tissues are unremarkable. BONES: No acute osseous abnormality. Degenerative changes of the glenohumeral and acromioclavicular joints bilaterally. Mild stable compression deformities of the T6 and T9 vertebral bodies. ABDOMEN AND PELVIS: LIVER: Unremarkable. No focal lesions. GALLBLADDER: Unremarkable. No calcified stone. BILE DUCTS: No ductal dilation. PANCREAS: Unremarkable. SPLEEN: Multiple calcified splenic granulomas. ADRENAL GLANDS: Unremarkable. KIDNEYS: Small 2.0 mm right renal stone. Multiple hypodense renal lesions again seen bilaterally, likely cysts. No hydronephrosis or hydroureter. STOMACH AND BOWEL: No obstruction or perforation. No wall thickening. Normal caliber small bowel with increased fluid. Colonic air-fluid levels throughout the majority of the colon. Colonic diverticulosis. No CT evidence of colitis or acute diverticulitis. APPENDIX: Normal-appearing appendix. No CT evidence for appendicitis. RETRO/PERITONEUM: No free fluid. No free air. LYMPH NODES: No lymphadenopathy. PELVIC ORGANS: Prostatic enlargement, indenting on the base of the urinary bladder. Decompressed urinary bladder with mild diffuse wall thickening. Unremarkable seminal vesicles. VASCULATURE: No aortic aneurysm or dissection. Scattered calcified atherosclerosis. SOFT TISSUES: The soft tissues are unremarkable. BONES: No acute osseous abnormality. Chronic stable superior compression deformity of the L2 and L4 vertebral bodies. Degenerative changes of the spine and both hips. CT/CT Chest, Abd, Pel w/Contrast IMPRESSION: 1. No acute intrathoracic, abdominal or pelvic injury detected. No acute fractures. 2. Increased small and large bowel fluid, which is nonspecific and can be seen with enterocolitis, an ileus, or other diarrheal illness. 3. Nonobstructing right renal calculus. 4. Colonic diverticulosis without signs of diverticulitis. Reading Location: [id number] CC: Dr. Eugenio Mayen DO; Dr. Abril Velarde DO Museum Security Chief: Signed Normal [facility] Carbon dioxide, total [Moles /volume] in Central venous bloodOrdered By: Abril Velarde on 05-31-2025 CO2 [Moles/Vol] 22.3 mmol/L 21.0-32.[address] [facility] Chloride assayOrdered By: Daxa Velarde on 05-31-2025 Chloride [Moles/Vol] 105 mmol/L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 decreased 30-44 G4 Severely decreased 15-29 G5 Kidney Failure <15 Release to patient->Immediate Performed By: #### L AB15 #### [place] [id number] [facility] Sodium [Moles/Vol] 138 mmol/L Normal 136-145 [facility] Comment on above: Order Comment: KDIGO 2012 GFR Categories Stage Description eGFR (mL/min/1.73m2) G1 Normal or high >=90 G2 Mildly decreased 60-89 G3a Mildly to moderately decreased 45-59 G3b Moderately to severely decreased 30-44 G4 Severely decreased 15-29 G5 Kidney Failure <15 Release to patient->Immediate Performed By: #### L AB15 #### [place] [id number] [address] Urea nitrogen [Mass/Vol] 21 mg/dL Normal 7-25 [facility] Comment on above: Order Comment: KDIGO 2012 GFR Categories Stage Description eGFR (mL/min/1.73m2) G1 Normal or high >=90 G2 Mildly decreased 60-89 G3a Mildly to moderately decreased 45-59 G3b Moderately to severely decreased 30-44 G4 Severely decreased 15-29 G5 Kidney Failure <15 Release to patient->Immediate Performed By: #### L AB15 #### [facility] [address] Basic Metabolic PanelOrdered By: Background Lab on 02-23-2025 Anion gap 4 (S/P/Bld) [Moles/Vol] 7 mmol/L 7 - 16 mmol/L [facility] Calcium (Bld) [Mass/Vol] 9.5 mg/dL 8.6 - 10.2 mg/dL [facility] Chloride (S/P/Bld) [Moles/Vol] 104 mmol/L 98 - 107 mmol/L [facility] CO2 (S/P/Bld) [Moles/Vol] 27 mmol/L 21 - 31 mmol/L [facility] Creatinine [Mass/Vol] 0.93 mg/dL 0.70 - 1.30 mg/dL [facility] GFR Male 89 - PINF [facility] Comment on above: Reported eGFR is bas ed on the CKD-EPI 2020 equation that does not use a race coefficient. Glucose [Mass/Vol] 97 mg/dL 74 - 109 mg/dL [facility] Potassium (S/P/Bld) [Moles/Vol] 3.7 mmol/L 3.5 - 5.1 mmol/L [facility] Sodium (S/P/Bld) [Moles/Vol] 138 mmol/L 136 - 145 mmol/L [facility] Urea nitrogen [Mass/Vol] 21 mg/dL 7 - 25 mg/dL [facility] KDIGO 2012 GFR Categories Stage Description eGFR (mL/min/1.73m2) G1 Normal or high >=90 G2 Mildly decreased 60-89 G3a Mildly to moderately decreased 45-59 G3b Moderately to severely decreased 30-44 G4 Severely decreased 15-29 G5 Kidney Failure <15 [facility] CBC W/DIFFon 02-23-2025 BASOPHILS ABS AUTO 0.1 K/uL Normal 0.0-0.1 [facility] Comment on above: Order Comment: Relea se to patient->Immediate Performed By: #### L [id number] #### [address] Basophils/100 WBC (Bld) 0.7 % Normal [facility] Comment on above: Order Comment: Relea se to patient->Immediate Performed By: #### L [id number] #### [address] Eosinophils (Bld) [#/Vol] 0.2 10*3/uL Normal 0.0-0.4 [facility] Comment on above: Order Comment: Relea se to patient->Immediate Performed By: #### L [id number] #### [address] Eosinophils/100 WBC (Bld) 2.5 % Normal [facility] Comment on above: Order Comment: Relea se to patient->Immediate Performed By: #### L [id number] #### [address] Erythrocyte distribution width (RBC) [Ratio] 14.4 % Normal 11.7-15.2 [facility] Comment on above: Order Comment: Relea se to patient->Immediate Performed By: #### L [id number] #### [address] Hematocrit (Bld) [Volume fraction] 36.2 % Abnormal 39.0-51.5 [facility] Comment on above: Order Comment: Relea se to patient->Immediate Performed By: #### L [id number] #### [address] Hemoglobin (Bld) [Mass/Vol] 12.4 g/dL Abnormal 13.1-17.6 [facility] Comment on above: Order Comment: Relea se to patient->Immediate Performed By: #### L [id number] #### [address] Lymphocytes (Bld) [#/Vol] 1.2 10*3/uL Normal 0.8-3.6 [facility] Comment on above: Order Comment: Relea se to patient->Immediate Performed By: #### L [id number] #### [address] Lymphocytes/100 WBC (Bld) 12.8 % Normal [facility] Comment on above: Order Comment: Relea se to patient->Immediate Performed By: #### L [id number] #### [address] MCH (RBC) [Entitic mass] 30.9 pg Normal 28.4-33.4 [facility] Comment on above: Order Comment: Relea se to patient->Immediate Performed By: #### L [id number] #### [address] MCHC (RBC) [Mass/Vol] 34.2 g/dL Normal 31.1-37.0 [facility] Comment on above: Order Comment: Relea se to patient->Immediate Performed By: #### L [id number] #### [address] MCV (RBC) [Entitic vol] 90.3 fL Normal 85.0-99.0 [facility] Comment on above: Order Comment: Relea se to patient->Immediate Performed By: #### L [id number] #### [address] Monocytes (Bld) [#/Vol] 0.6 10*3/uL Normal 0.3-0.9 [facility] Comment on above: Order Comment: Relea se to patient->Immediate Performed By: #### L [id number] #### [address] Monocytes/100 WBC (Bld) 6.7 % Normal [facility] Comment on above: Order Comment: Relea se to patient->Immediate Performed By: #### L [id number] #### [address] NEUTROPHIL ABS AUTO 7.4 K/uL Abnormal 2.0-7.3 [facility] Comment on above: Order Comment: Relea se to patient->Immediate Performed By: #### L [id number] #### [address] Neutrophils/100 WBC (Bld) 77.3 % Normal [facility] Comment on above: Order Comment: Relea se to patient->Immediate Performed By: #### L [id number] #### [address] Platelets (Bld) [#/Vol] 369 10*3/uL Normal 154-393 [facility] Comment on above: Order Comment: Relea se to patient->Immediate Performed By: #### L [id number] #### [address] RBC (Bld) [#/Vol] 4.01 10*6/uL Abnormal 4.30-5.86 [facility] Comment on above: Order Comment: Relea se to patient->Immediate Performed By: #### L [id number] #### [address] WBC (Bld) [#/Vol] 9.6 10*3/uL Normal 4.0-10.5 [facility] Comment on above: Order Comment: Relea se to patient->Immediate Performed By: #### L [id number] #### [address] CBC w/ Diff-Complete Blood [place] 02-23-2025 Basophils (Bld) [#/Vol] 0.1 10*3/uL 0.0 - 0.1 K/uL [facility] Basophils/100 WBC (Bld) 0.7 % [facility] Eosinophils (Bld) [#/Vol] 0.2 10*3/uL 0.0 - 0.4 K/uL [facility] Eosinophils/100 WBC (Bld) 2.5 % [facility] Erythrocyte distribution width (RBC) [Ratio] 14.4 % 11.7 - 15.2 % [facility] Hematocrit (Bld) [Volume fraction] 36.2 % Abnormal 39.0 - 51.5 % [facility] Hemoglobin (Bld) [Mass/Vol] 12.4 g/dL Abnormal 13.1 - 17.6 g/dL [facility] Interpretation and review of laboratory results Abnormal [facility] Lymphocytes (Bld) [#/Vol] 1.2 10*3/uL 0.8 - 3.6 K/uL [facility] Lymphocytes/100 WBC (Bld) 12.8 % [facility] MCH (RBC) [Entitic mass] 30.9 pg 28.4 - 33.[address] [facility] MCHC (RBC) [Mass/Vol] 34.2 g/dL 31.1 - 37.0 g/dL [facility] MCV (RBC) [Entitic vol] 90.3 fL 85.0 - 99.[address] [facility] Monocytes (Bld) [#/Vol] 0.6 10*3/uL 0.3 - 0.9 K/uL [facility] Monocytes/100 WBC (Bld) 6.7 % [facility] Neutrophils (Bld) [#/Vol] 7.4 10*3/uL Abnormal 2.0 - 7.3 K/uL [facility] Neutrophils/100 WBC (Bld) 77.3 % [facility] Platelets (Bld) [#/Vol] 369 10*3/uL 154 - 393 K/uL [facility] RBC (Bld) [#/Vol] 4.01 10*6/uL Abnormal [facility] WBC (Bld) [#/Vol] 9.6 10*3/uL 4.0 - 10.5 K/uL [facility] ED Provider Noteson 02-24-20 ED Provider Notes Encounter Department : [facility] EMERGENCY ED Provider Notes by Go Rice MD at 02/23/2025 4:48 AM Author: JOSE ALEJANDRO Villaltaervice: -Author Type: ED Physician Filed: 02/23/2025 6:07 AMDate of Service: 02/23/2025 4:48 AMStatus: Signed Nuclear Reactor Engineer: Go Rice MD (ED Physician) FINAL IMPRESSION(S) [...] off of the [place] [employer]. He states that he fell twice off [...] 157/80 Temp97.7 ?F (36.5 ?C) Pulse60 Resp16 MqC968 % Zynurp899 lb (72.1 kg) [place] Coma Scale Score15 BMI (Calculated)22.2 Alert, resting, [...] EKG Standard 12 lead ResultValueRef Range Heart Qndf49qtl RR INTERVAL1,056ms OK Pddygxra633wh QRSD Jrhxlqhr70eu QT Oktbxhsd850qy QTc Jqzmameu298od QRS Boron-20deg T Wave Kasu54mjy REPORT- NORMAL ECG - REPORTSinus rhythm Interpreting Phys Confirmed by: Go Rice) 23-Feb-2025 04:31:11 RADIOLOGY I have personally visualized the images and my interpretation is no acute chest abnormality I reviewed the radiologist interpretation: Results for orders placed or performed during the hospital encounter of 02/23/25 [place] [id number] [place]arr[place] [id number] 02/23/2025 5:51 AM Reason for exam:leg pain [...] XR-CHEST PORTABLE STAT Narrative XR-CHEST PORTABLE STAT [id number] 02/23/2025 5:04 AM History: chest pain History: Chest Pain; Leg Pain. Number of Series/Images: 1. Comparison: None Findings: Single mobile view of the chest demonstrates normal cardiomediastinal silhouette with midline trachea and clear ry (more content not included)... Normal [facility] EKG STANDARD 12 LEADon 02-23 EKG STANDARD 12 LEAD HEART RATE= 57 bpm RR Interval= 1056 ms P-R Interval= 196 ms QRSD Interval= 80 ms QT Interval= 396 ms QTcB= 385 ms QRS Boron= -20 deg T Wave Boron= 61 deg Report= - NORMAL ECG - Report= Sinus rhythm INTERPRETING PHYS= Confirmed by: Go Rice) 23-Feb-2025 04:31:11 Normal [facility] EKG Standard 12 leadon 02-23 Heart rate 57 /min bpm [facility] Interpreting Phys Confirmed by: Go Adame) 23-Feb-2025 04:31:11 [facility] OK Interval [address] [facility] QRS Boron -[address] [facility] QRSD Interval [address] [facility] QT Interval [address] [facility] QTc Interval [address] [facility] REPORT - NORMAL ECG - [facility] REPORT Sinus rhythm [facility] RR INTERVAL [address] [facility] T Wave Boron 61 deg [facility] HS TROPONIN Ion 02-23-2025 HS TROPONIN I 11 pg/mL Normal <20 [facility] Comment on above: Order Comment: The A ccess high sensitivity troponin assay is not intended to be used in isolation; results should be interpreted in conjunction with other diagnostic tests and clinical information. Is this patient low risk* or onset of CP >3 Hours?->Yes Release to patient->Immediate Performed By: #### L [id number] #### [facility] [address] [place] [id number] [facility] HS Troponin Ion 02-23-2025 Interpretation and review of laboratory results Normal [facility] Troponin I.cardiac High sensitivity method [Mass/Vol] 11 pg/mL NINF - 20 pg/mL [facility] The Access high sensitivity troponin assay is not intended to be used in isolation; results should be interpreted in conjunction with other diagnostic tests and clinical information. [facility] Portable XR Chest Viewson PULMONARY HYPERINFLA TION WITH NO ACUTE PROCESS SEEN. Workstation ID:[id number] Electronically Signed by: Jun Bro M.D., 02/23/2025 5:05 AM [facility] EMED Co XR-CHEST PORTABLE ST AT [id number] 02/23/2025 5:04 AM History: chest pain History: Chest Pain; Leg Pain. Number of Series/Images: 1. Comparison: None Findings: Single mobile view of the chest demonstrates normal cardiomediastinal silhouette with midline trachea and clear lung barry bilaterally. Lungs appear somewhat hyperinflated. [facility] [employer] [facility] Jun Bro MD - 02/23/2025 XR-CHEST PORTABLE STAT [id number] 02/23/2025 5:04 AM History: chest pain History: Chest Pain; Leg Pain. Number of Series/Images: 1. Comparison: None Findings: Single mobile view of the chest demonstrates normal cardiomediastinal silhouette with midline trachea and clear lung barry bilaterally. Lungs appear somewhat hyperinflated. IMPRESSION: PULMONARY HYPERINFLATION WITH NO ACUTE PROCESS SEEN. Workstation ID:[id number] Electronically Signed by: Jun Bro M.D., 02/23/2025 5:[address] [facility] Radiology Study observation (narrative) [facility] Portable XR Chest ViewsOrder ed By: Jun Bro on 02-23-2025 [facility] Work Phone: US.doppler Lower extremity v ein - righton 02-23-2025 1. NO EVIDENCE OF DE EP VENOUS THROMBOSIS IN THE RIGHT LOWER EXTREMITY. 2. NO REFLUX WAS DEMONSTRATED. Workstation ID:[email or web address] Electronically Signed by: Jun Bro M.D., 02/23/2025 5:59 AM [facility] [place] [id number] 02/23/2025 5:51 AM Reason for exam:leg pain amd swelling Reason for Exam: leg pain amd swelling. Duplex ultrasound examination of the deep venous system of the right lower extremity including evaluation of the common femoral vein, femoral vein, popliteal vein, posterior tibial veins, and peroneal veins. It demonstrated good compressibility and augmentation without reflux throughout. No luminal thrombus was demonstrated. [facility] [employer] Jun Robert MD - 02/23/20[place] [id number] 02/23/2025 5:51 AM Reason for exam:leg pain [...] by: Jun Bro M.D., 02/23/2025 5:59 AM [facility] Radiology Study observation (narrative) [facility] VAS-DUP VEIN LOWER DVT RT 93 971on 02-23-2025 [place] [id number] A result will not be generated for this exam[place] [id number] 02/23/2025 5:51 AM Reason for exam:leg pain [...] Jun Bro M.D., 02/23/2025 5:59 AM Normal [facility] XR-CHEST PORTABLE [place] XR-CHEST PORTABLE STAT A result will not be generated for this exam. XR-CHEST PORTABLE STAT [id number] 02/23/2025 5:04 AM History: chest pain History: Chest Pain; Leg Pain. Number of Series/Images: 1. Comparison: None Findings: Single mobile view of the chest demonstrates normal cardiomediastinal silhouette with midline trachea and clear lung barry bilaterally. Lungs appear somewhat hyperinflated. IMPRESSION: IMPRESSION: PULMONARY HYPERINFLATION WITH NO ACUTE PROCESS SEEN. Workstation ID:[id number] Electronically Signed by: Jun Bro M.D., 02/23/2025 5:05 AM Normal [facility] MRA/MRI BRAIN W/O CONTRASTon 01-28-2025 MRA/MRI BRAIN W/O CONTRAST ORIGINAL EXAMINATION: MRI OF THE BRAIN WITHOUT CONTRAST AND MRA HEAD WITHOUT CONTRAST 01/23/2025 11:35 am TECHNIQUE: Multiplanar multisequence MRI of the brain was performed without the administration of intravenous contrast. MRA of the head was performed utilizing pwha-dx-ypldwp imaging with MIP images. No intravenous contrast [...] 01/28/2025 5:17:06 AM Ordering Provider: EUGENIO MAYEN [facility] MRI KIDNEYon 01-27-2025 MRI KIDNEY ORIGINAL EXAMINATION: [...] 01/27/2025 1:15:03 PM Ordering Provider: EUGENIO MAYEN [facility] CT ABDOMEN/PELVIS W/O CONTRA STon 01-08-2025 CT ABDOMEN/PELVIS W/O CONTRAST ORIGINAL EXAMINATION: [...] 01/08/2025 4:19:21 PM Ordering Provider: EUGENIO MAYEN [facility] 01-08-2025 Color (U) Yellow Normal [facility] Comment on above: Order Comment: run c ulture Performed By: #### U A #### [address] [address] Glucose (U) [Mass/Vol] Negative Normal Negative [facility] Comment on above: Order Comment: run c ulture Performed By: #### U A #### [address] [address] Ketones Ql (U) Negative Normal Negative [facility] Comment on above: Order Comment: run c ulture Performed By: #### U A #### [address] [address] UA Appear Clear Normal Clear [facility] Comment on above: Order Comment: run c ulture Performed By: #### U A #### [address] [address] UA Blood Trace Abnormal Negative [facility] Comment on above: Order Comment: run c ulture Performed By: #### U A #### [address] [address] UA Leuk Est Negative Normal Negative [facility] Comment on above: Order Comment: run c ulture Performed By: #### U A #### [address] [address] UA Nitrite Negative Normal Negative [facility] Comment on above: Order Comment: run c ulture Performed By: #### U A #### [address] [address] UA pH 7.0 Normal 5.0 - 8.0 [facility] Comment on above: Order Comment: run c ulture Performed By: #### U A #### [address] [address] UA Protein Negative Normal Negative [facility] Comment on above: Order Comment: run c ulture Performed By: #### U A #### [address] [address] UA Spec Grav 1.020 Normal 1.015-1.02 5 [facility] Comment on above: Order Comment: run c ulture Performed By: #### U A #### [address] [address] UA Specimen Type Clean Catch Normal [facility] Comment on above: Order Comment: run c ulture Performed By: #### U A #### [address] [address] UA Urobilinogen 0.2 E.U./dL Normal 0.2-1.0 [facility] Comment on above: Order Comment: run c ulture Performed By: #### U A #### [address] [address] Urobilinogen (U) [Mass/Vol] Negative Normal Negative [facility] Comment on above: Order Comment: run c ulture Performed By: #### U A #### [address] [address] Bilirubin Test strip Ql (U)O rdered By: Irene Franks on 01-03-2025 Bilirubin Ql (U) Negative Negative [facility] Emergency Department Summary on 01-03-2025 Emergency Department Summary [facility] Medical Records Department [address] [place] [id number] Emergency Department Summary 01/03/25 MR#: [id number] Acct: [id number] Name: WINSTON MARI Rep #: [id number] : 1955 69 From: Irene PRINCE PCP: [...] penile discharge. No fever chills or vomiting. [facility] Medical History Left rotator cuff tear Anemia GERD (gastroesophageal reflux disease) Left shoulder pain Hemorrhoid Epilepsy Sciatica High cholesterol Home Medications ???Medication ???Instructions ???Recorded ???Last Taken ???Type gabapentin 300 mg capsule 300 mg PO 4X/DAY 04/02/22 Unknown History hydrocortisone acetate 25 mg 25 mg OK QHS #12 ea 04/27/22 Unkno wn Rx [...] AdvReac Rash Verified 01/03/25 16:39 hydrocodone (From [place]) AdvReac Upset Verified 01/03/25 16:39 Stomach ibuprofen [...] male has (more content not included)... Normal [facility] Epithelial cells.squamous LM Ql (Urine sed)Ordered By: Irene Franks on 01-03-2025 Epithelial cells.squamous LM.HPF (Urine sed) [#/Area] 0 /[HPF] 0-[address] [facility] Glucose Ql (U)Ordered By: Mariely Franks on 01-03-2025 Urine Glucose (UA) Normal mg/dl Normal [facility] Ketones Test strip Ql (U)Ord ered By: Irene Franks on 01-03-2025 Ketones Ql (U) Negative Negative [facility] Microscopic analysis of urin e for red blood cells (RBC)Ordered By: Irene Franks on 01-03-2025 Microscopic analysis of urine for red blood cells (RBC) 0-5 SEEN /hpf 0-[address] [facility] Urine RBC 0-5 SEEN /hpf 0-[address] [facility] Mucus LM Ql (Urine sed)Order ed By: Irene Franks on 01-03-2025 Mucus Ql (Urine sed) 1+ /hpf [facility] Nitrite Test strip Ql (U)Ord ered By: Irene Franks on 01-03-2025 Nitrite Ql (U) Negative Negative [facility] Protein Test strip Ql (U)Ord ered By: Irene Franks on 01-03-2025 Protein Ql (U) Negative Negative [facility] Squamous epithelial cells de tection in urine sediment by light microscopyOrdered By: Irene Franks on 01-03-2025 Epithelial cells.squamous LM Ql (Urine sed) 0-5 SEEN /hpf 0-[address] [facility] Transitional cells LM Ql (Ur ine sed)Ordered By: Irene Franks on 01-03-2025 Urine Transitional Epithelial Cells 0-5 SEEN /hpf 0-[address] [facility] Transitional cells detection in urine sediment by light microscopyOrdered By: Irene Franks on 01-03-2025 Transitional cells LM Ql (Urine sed) 0-5 SEEN /hpf 0-[address] [facility] Urinalysis, Completeon 01-03 Mucus Ql (Urine sed) 1+ /hpf Normal [facility] Comment on above: Order Comment: ZANDRA TORIBIO TO SPECIFY Performed By: #### L 500.2500, L500.3400 #### [facility] [address] [place], [place], [id number] BACTERIA 2+ /hpf Normal None Seen [facility] Comment on above: Order Comment: COLLE CTOR TO SPECIFY Performed By: #### L 500.2500, L500.3400 #### [facility] [address] [place], [address] EPI,SQUAMOUS 0-5 SEEN Normal 0-[address] [facility] Comment on above: Order Comment: COLLE CTOR TO SPECIFY Performed By: #### L 500.2500, L500.3400 #### [facility] [address] [place], [address] EPI,TRANSITION 0-5 SEEN Normal 0-[address] [facility] Comment on above: Order Comment: ZANDRA CTOR TO SPECIFY Performed By: #### L 500.2500, L500.3400 #### [facility] [address] [place], [address] RBC 0-5 SEEN Normal 0-[address] [facility] Comment on above: Order Comment: ZANDRA CTOR TO SPECIFY Performed By: #### L 500.2500, L500.3400 #### [facility] [address] [place], [address] WBC 0 SEEN Normal 0-[address] [facility] Comment on above: Order Comment: ZANDRA CTOR TO SPECIFY Performed By: #### L 500.2500, L500.3400 #### [facility] [address] [place], [address] Urine blood detectionOrdered By: Irene Franks on 01-03-2025 Urine Occult Blood 25 /ul High Negative [facility] Urine clarityOrdered By: Nolvia Franks on 01-03-2025 Clarity (U) Clear Clear [facility] Urine color determinationOrd ered By: Irene Franks on 01-03-2025 Color (U) Yellow Yellow [facility] Urine glucose detectionOrder ed By: Irene Franks on 01-03-2025 Glucose Ql (U) Normal mg/dl Normal [facility] Urine leukocyte esterase det ection by dipstickOrdered By: Irene Franks on 01-03-2025 Leukocyte esterase Test strip Ql (U) Negative Negative [facility] Urine pHOrdered By: Irene [email or web address] on 01-03-2025 pH (U) 7.0 [pH] 5.0 - 8.[address] [facility] Urine sediment bacteria coun t by microscopy (number/high power field)Ordered By: Irene Villafanaant on 01-03-2025 Bacteria LM.HPF (Urine sed) [#/Area] 2 /[HPF] None Seen [facility] Urine specific gravity measu rementOrdered By: Irene Tiny on 01-03-2025 Specific gravity (U) [Rel density] 1.010 1.002-1.[address] [facility] Urine urobilinogen measureme ntOrdered By: Irenecurt Franks on 01-03-2025 Urobilinogen Ql (U) 1 mg/dl High Normal [facility] Urobilinogen Ql (U)Ordered B y: Irene Villafanaant on 01-03-2025 Urobilinogen (U) [Mass/Vol] 1 mg/dL High Normal [facility] White blood cell countOrdere d By: Irene Tiny on 01-03-2025 Urine WBC 0 SEEN /hpf 0-[address] [facility] White blood cell count 0 SEEN /hpf 0-5 [facility] Abdomen/Pelvis without Conto n 01-01-2025 Abdomen/Pelvis without Cont [facility] Services [address] [place], [place] [address] Abdomen/Pelvis without Cont MR#: [id number] Acct: [id number] Name: WINSTON MARI Rep #: [id number] : 1955 M 69 From: Patricia Del Cid MD PCP: Dr. Eugenio Mayen DO Status: [facility] ER Study: Abdomen/Pelvis without Cont Date of Exam: 12/20 01/13 Exam# [id number] Ordering Dr: Dean Del Cid DO EXAM: [...] Colonic diverticulosis without acute diverticulitis. Reading Location: [facility] CC: Dr. Eugenio Mayen DO; Dr. Dean Del Cid, DO [employer] Chief: Signed Normal [facility] Absolute lymphocyte countOrd ered By: Dean Del Cid on 01-01-2025 Lymphocytes Auto (Unsp spec) [#/Vol] 1.67 10*3/uL 0.83-4.[address] [facility] Absolute neutrophil countOrd ered By: Dean Del Cid on 01-01-2025 Neutrophils (Bld) [#/Vol] 3.1 10*3/uL 2.0-7.[address] [facility] Anion gap in Serum or Plasma Ordered By: Dean Del Cid on 01-01-2025 Anion gap [Moles/Vol] 8 mmol/L 5-15 [facility] Automated lymphocyte count a s percentage of total leukocytesOrdered By: Dean Del Cid on 01-01-2025 Lymphocytes/100 WBC Auto (Unsp spec) 28.4 % 19-[address] [facility] BUN/creatinine ratioOrdered By: Dean Del Cid on 01-01-2025 Urea nitrogen/Creatinine [Mass ratio] 22.3 mg/mg High 10-[address] [facility] Basic Metabolic Profile (BMP )on 01-01-2025 BUN/CRE 22.3 RATIO High 10-[address] [facility] Comment on above: Performed By: #### L 500.2500, L500.3400 #### [facility] [address] [place], [address] Calcium [Mass/Vol] 9.0 mg/dL Normal 7.6-11.0 [facility] Comment on above: Performed By: #### L 500.2500, L500.3400 #### [facility] [address] [place], [address] Chloride [Moles/Vol] 104 mmol/L Normal 98-108 [facility] Comment on above: Performed By: #### L 500.2500, L500.3400 #### [facility] [address] [place], [address] CO2 [Moles/Vol] 25.1 mmol/L Normal 21.0-32.[address] [facility] Comment on above: Performed By: #### L 500.2500, L500.3400 #### [facility] [address] [place], [address] Creatinine [Mass/Vol] 0.93 mg/dL Normal 0.70-1.20 [facility] Comment on above: Performed By: #### L 500.2500, L500.3400 #### [facility] [address] [place], [address] ECRCL 77.55 ml/min Normal 50-[address] [facility] Comment on above: Performed By: #### L 500.2500, L500.3400 #### [facility] [address] [place], [address] GAP 8 Normal 5-[address] [facility] Comment on above: Performed By: #### L 500.2500, L500.3400 #### [facility] [address] [place], [address] GFR/1.73 sq M.predicted among non-blacks MDRD (S/P/Bld) [Vol rate/Area] 90 mL/min/{1.73_m2} Normal >[address] [facility] Comment on above: Result Comment: mL/m in/1.73m2 CKD-EPI Creatinine Equation (2020) Performed By: #### L 500.2500, L500.3400 #### [facility] [address] [place], [address] Glucose [Mass/Vol] 95 mg/dL Normal 70-99 [facility] Comment on above: Performed By: #### L 500.2500, L500.3400 #### [facility] [address] [place], [address] Potassium [Moles/Vol] 4.4 mmol/L Normal 3.3-5.1 [facility] Comment on above: Performed By: #### L 500.2500, L500.3400 #### [facility] [address] [place], [address] Sodium [Moles/Vol] 138 mmol/L Normal 133-145 [facility] Comment on above: Performed By: #### L 500.2500, L500.3400 #### [facility] [address] [place], [address] Urea nitrogen [Mass/Vol] 21 mg/dL High 4-[address] [facility] Comment on above: Performed By: #### L 500.2500, L500.3400 #### [facility] [address] [place], [address] Basophil percentageOrdered B y: Dean Del Cid on 01-01-2025 Basophils/100 WBC (Bld) 1.2 % High 0-[address] [facility] Bilirubin Test strip Ql (U)O rdered By: Dean Del Cid on 01-01-2025 Bilirubin Ql (U) Negative Negative [facility] CBC W/Diff, Automatedon 12-20 Absolute Lymph 1.67 X10 3/uL Normal 0.83-4.[address] [facility] Comment on above: Performed By: #### L 500.2500, L500.3400 #### [facility] [address] [place], [address] Absolute Neut 3.1 X10 3/uL Normal 2.0-7.[address] [facility] Comment on above: Performed By: #### L 500.2500, L500.3400 #### [facility] [address] [place], [address] Basophils/100 WBC (Bld) 1.2 % High 0-[address] [facility] Comment on above: Performed By: #### L 500.2500, L500.3400 #### [facility] [address] [place], [address] Eosinophils/100 WBC (Bld) 5.1 % High 0-[address] [facility] Comment on above: Performed By: #### L 500.2500, L500.3400 #### [facility] [address] [place], [address] Erythrocyte distribution width (RBC) [Ratio] 14.3 % Normal 11.6-14.[address] [facility] Comment on above: Performed By: #### L 500.2500, L500.3400 #### [facility] [address] [place], [address] Hematocrit (Bld) [Volume fraction] 37.1 % Low 40-[address] [facility] Comment on above: Performed By: #### L 500.2500, L500.3400 #### [facility] [address] [place], [address] Hemoglobin (Bld) [Mass/Vol] 12.2 g/dL Low 13.0-16.[address] [facility] Comment on above: Performed By: #### L 500.2500, L500.3400 #### [facility] [address] [place], [address] IG% 0.300 Normal 0.0-0.[address] [facility] Comment on above: Result Comment: IG% - Immature Granulocytes (promyelocytes, myelocytes and metamyelocytes) > 1% indicates that a LEFT SHIFT is Present. Performed By: #### L 500.2500, L500.3400 #### [facility] [address] [place], [address] Lymphocytes/100 WBC (Bld) 28.4 % Normal 19-[address] [facility] Comment on above: Performed By: #### L 500.2500, L500.3400 #### [facility] [address] [place], [address] MCH (RBC) [Entitic mass] 30.0 pg Normal 27.0-32.[address] [facility] Comment on above: Performed By: #### L 500.2500, L500.3400 #### [facility] [address] [place], [address] MCHC (RBC) [Mass/Vol] 32.9 g/dL Normal 32-36 [facility] Comment on above: Performed By: #### L 500.2500, L500.3400 #### [facility] [address] [place], [address] MCV (RBC) [Entitic vol] 91.4 fL Normal 80-[address] [facility] Comment on above: Performed By: #### L 500.2500, L500.3400 #### [facility] [address] [place], [address] Monocytes/100 WBC (Bld) 11.6 % High 0-[address] [facility] Comment on above: Performed By: #### L 500.2500, L500.3400 #### [facility] [address] [place], [address] Neutrophils/100 WBC (Bld) 53.4 % Normal 47-[address] [facility] Comment on above: Performed By: #### L 500.2500, L500.3400 #### [facility] [address] [place], [address] Nucleated RBC (Bld) [#/Vol] 0 10*3/uL Normal 0-[address] [facility] Comment on above: Performed By: #### L 500.2500, L500.3400 #### [facility] [address] [place], [address] Platelet mean volume (Bld) [Entitic vol] 8.3 fL Normal 6.2-12.[address] [facility] Comment on above: Performed By: #### L 500.2500, L500.3400 #### [facility] [address] [place], [address] Platelets (Bld) [#/Vol] 327 10*3/uL Normal 150-[address] [facility] Comment on above: Performed By: #### L 500.2500, L500.3400 #### [facility] [address] [place], [address] RBC (Bld) [#/Vol] 4.06 10*6/uL Low 4.6-6.2 [facility] Comment on above: Performed By: #### L 500.2500, L500.3400 #### [facility] [address] [place], [address] RDW SD 48.0 fl High 35.1-43.[address] [facility] Comment on above: Performed By: #### L 500.2500, L500.3400 #### [facility] [address] [place], [address] WBC (Bld) [#/Vol] 5.9 10*3/uL Normal 4.4-11.0 [facility] Comment on above: Performed By: #### L 500.2500, L500.3400 #### [facility] [address] [place], [address] Carbon dioxide, total [Moles /volume] in Central venous bloodOrdered By: Dean Del Cid on 01-01-2025 CO2 [Moles/Vol] 25.1 mmol/L 21.0-32.[address] [facility] Chloride assayOrdered By: Gilberto Del Cid on 01-01-2025 Chloride [Moles/Vol] 104 mmol/L 98-108 [facility] Emergency Department Summary on 01-01-2025 Emergency Department Summary [facility] Medical Records Department [address] [place] [address] Emergency Department Summary 01/01/25 MR#: [id number] Acct: [id number] Name: WINSTON MARI Rep #: [id number] : 1955 69 From: Dean Ac PCP: Dr. Eugenio Mayen DO Status:DEP ER [...] History hydrocortisone acetate 25 mg 25 mg OK QHS #12 ea 04/27/22 Unkno wn Rx [...] AdvReac Rash Verified 01/01/25 14:03 hydrocodone (From [place]) AdvReac Upset Verified 01/01/25 14:03 Stomach ibuprofen [...] rebound t (more content not included)... Normal [facility] Eosinophil percentageOrdered By: Dean Del Cid on 01-01-2025 Eosinophils/100 WBC (Bld) 5.1 % High 0-[address] [facility] Epithelial cells.squamous LM Ql (Urine sed)Ordered By: Dean Del Cid on 01-01-2025 Epithelial cells.squamous LM.HPF (Urine sed) [#/Area] 0 /[HPF] 0-[address] [facility] Erythrocyte distribution wid th ratioOrdered By: Dean Del Cid on 01-01-2025 Erythrocyte distribution width (RBC) [Ratio] 14.3 % 11.6-14.[address] [facility] Erythrocyte distribution wid th standard deviationOrdered By: Dean Del Cid on 01-01-2025 Erythrocyte distribution width (RBC) [Entitic vol] 48.0 fL High 35.1-43.[address] [facility] Erythrocyte distribution width (RBC) [Ratio] 48.0 fl High 35.1-43.[address] [facility] Estimation of creatinine homa aranceOrdered By: Dean Del Cid on 01-01-2025 Estimated Creatinine Clearance Calc 77.55 ml/min 50-[address] [facility] GFR/1.73 sq M.predicted cecilia g non-blacks MDRD (S/P/Bld) [Vol rate/Area]Ordered By: Dean Del Cid on 01-01-2025 Estimated GFR (MDRD) Non-Af Amer 90 >[address] [facility] Comment on above: mL/min/1.73m2 CKD-EP I Creatinine Equation (2020) Glomerular filtration rate ( GFR) estimation/1.73 sq m using serum, plasma, or whole bOrdered By: Dean Del Cid on 01-01-2025 GFR/1.73 sq M.predicted among non-blacks MDRD (S/P/Bld) [Vol rate/Area] 90 mL/min/{1.73_m2} >[address] [facility] Comment on above: mL/min/1.73m2 CKD-EP I Creatinine Equation (2020) Glucose Ql (U)Ordered By: Gilberto Del Cid on 01-01-2025 Urine Glucose (UA) Normal mg/dl Normal [facility] Hematocrit Auto (Bld) [Volum e fraction]Ordered By: Dean Del Cid on 01-01-2025 Hematocrit (Bld) [Volume fraction] 37.1 % Low 40-[address] [facility] Hemoglobin measurementOrdere d By: Dean Del Cid on 01-01-2025 Hemoglobin (Bld) [Mass/Vol] 12.2 g/dL Low 13.0-16.[address] [facility] Immature granulocytes/100 WB C Auto (Bld)Ordered By: Dean Del Cid on 01-01-2025 Immature granulocytes/100 WBC (Bld) 0.300 % 0.0-0.[address] [facility] Comment on above: IG% - Immature Granu locytes (promyelocytes, myelocytes and metamyelocytes) > 1% indicates that a LEFT SHIFT is Present. Ketones Test strip Ql (U)Ord ered By: Dean Del Cid on 01-01-2025 Ketones Ql (U) Negative Negative [facility] Lymphocytes Auto (Unsp spec) [#/Vol]Ordered By: Dean Del Cid on 01-01-2025 Lymphocytes (Bld) [#/Vol] 1.67 10*3/uL 0.83-4.[address] [facility] Lymphocytes/100 WBC Auto (Un sp spec)Ordered By: Dean Del Cid on 01-01-2025 Lymphocytes/100 WBC (Bld) 28.4 % 19-[address] [facility] MCV (mean corpuscular volume ) determinationOrdered By: Dean Del Cid on 01-01-2025 MCV (RBC) [Entitic vol] 91.4 fL 80-[address] [facility] Mean corpuscular hemoglobin (MCH) determinationOrdered By: Dean Del Cid on 01-01-2025 MCH (RBC) [Entitic mass] 30.0 pg 27.0-32.[address] [facility] Mean corpuscular hemoglobin concentration (MCHC) determinationOrdered By: Dean Del Cid on 01-01-2025 MCHC (RBC) [Mass/Vol] 32.9 g/dL 32-36 [facility] Mean platelet volume determi nationOrdered By: Dean Del Cid on 01-01-2025 Platelet mean volume (Bld) [Entitic vol] 8.3 fL 6.2-12.[address] [facility] Microscopic analysis of urin e for red blood cells (RBC)Ordered By: Dean Del Cid on 01-01-2025 Microscopic analysis of urine for red blood cells (RBC) 0-5 SEEN /hpf 0-[address] [facility] Urine RBC 0-5 SEEN /hpf 0-[address] [facility] Monocyte percentageOrdered B y: Dean Del Cid on 01-01-2025 Monocytes/100 WBC (Bld) 11.6 % High 0-[address] [facility] Mucus LM Ql (Urine sed)Order ed By: Dean Del Cid on 01-01-2025 Mucus Ql (Urine sed) 0 SEEN /hpf [facility] Neutrophil percentageOrdered By: Dean Del Cid on 01-01-2025 Neutrophils/100 WBC (Bld) 53.4 % 47-[address] [facility] Nitrite Test strip Ql (U)Ord ered By: Dean Del Cid on 01-01-2025 Nitrite Ql (U) Negative Negative [facility] Nucleated red blood cell per centageOrdered By: Dean Del Cid on 01-01-2025 Nucleated RBC/100 WBC (Bld) [Ratio] 0 % 0-[address] [facility] Platelet countOrdered By: Gilberto Del Cid on 01-01-2025 Platelets (Bld) [#/Vol] 327 10*3/uL 150-[address] [facility] Potassium (Unsp spec) [Mass/ Vol]Ordered By: Dean Del Cid on 01-01-2025 Potassium [Moles/Vol] 4.4 mmol/L 3.3-5.1 [facility] Potassium measurement (mass/ volume)Ordered By: Dean Del Cid on 01-01-2025 Potassium (Unsp spec) [Mass/Vol] 4.4 mmol/L 3.3-5.[address] [facility] Protein Test strip Ql (U)Ord ered By: Dean Del Cid on 01-01-2025 Protein Ql (U) Negative Negative [facility] RBC Auto (Bld) [#/Vol]Ordere d By: Dean Del Cid on 01-01-2025 RBC (Bld) [#/Vol] 4.06 10*6/uL Low 4.6-6.2 [facility] Serum creatinine measurement (mass/volume)Ordered By: Dean Del Cid on 01-01-2025 Creatinine [Mass/Vol] 0.93 mg/dL 0.70-1.20 [facility] Serum glucose measurement (m ass/volume)Ordered By: Dean Del Cid on 01-01-2025 Glucose [Mass/Vol] 95 mg/dL 70-99 [facility] Serum or plasma calcium doug urement (mass/volume)Ordered By: Dean Del Cid on 01-01-2025 Calcium [Mass/Vol] 9.0 mg/dL 7.6-11.0 [facility] Serum or plasma urea nitroge n measurement (mass/volume)Ordered By: Dean Del Cid on 01-01-2025 Urea nitrogen [Mass/Vol] 21 mg/dL High 4-[address] [facility] Sodium levelOrdered By: Dean Del Cid on 01-01-2025 Sodium [Moles/Vol] 138 mmol/L 133-145 [facility] Squamous epithelial cells de tection in urine sediment by light microscopyOrdered By: Dean Del Cid on 01-01-2025 Epithelial cells.squamous LM Ql (Urine sed) 0-5 SEEN /hpf 0-[address] [facility] Urinalysis, Completeon 01-01 EPI,SQUAMOUS 0-5 SEEN Normal 0-[address] [facility] Comment on above: Order Comment: CLEAN CATCH Performed By: #### L 500.2500, L500.3400 #### [facility] [address] [place], [address] RBC 0-5 SEEN Normal 0-[address] [facility] Comment on above: Order Comment: CLEAN CATCH Performed By: #### L 500.2500, L500.3400 #### [facility] [address] [place], [address] BACTERIA 0 SEEN Normal None Seen [facility] Comment on above: Order Comment: CLEAN CATCH Performed By: #### L 500.2500, L500.3400 #### [facility] [address] [place], [address] Mucus Ql (Urine sed) 0 SEEN Normal [facility] Comment on above: Order Comment: CLEAN CATCH Performed By: #### L 500.2500, L500.3400 #### [facility] [address] [place], [address] WBC 0 SEEN Normal 0-[address] [facility] Comment on above: Order Comment: CLEAN CATCH Performed By: #### L 500.2500, L500.3400 #### [facility] [address] [place], [address] Urine blood detectionOrdered By: Dean Del Cid on 01-01-2025 Urine Occult Blood 25 /ul High Negative [facility] Urine clarityOrdered By: Suresh Del Cid on 01-01-2025 Clarity (U) Sl. Cloudy Clear [facility] Urine color determinationOrd ered By: Dean Del Cid on 01-01-2025 Color (U) Yellow Yellow [facility] Urine glucose detectionOrder ed By: Dean Del Cid on 01-01-2025 Glucose Ql (U) Normal mg/dl Normal [facility] [facility] Urine leukocyte esterase det ection by dipstickOrdered By: Dean Colten on 01-01-2025 Leukocyte esterase Test strip Ql (U) Negative Negative [facility] Urine pHOrdered By: Dean Del Cid on 01-01-2025 pH (U) 6.5 [pH] 5.0 - 8.[address] [facility] Urine sediment bacteria coun t by microscopy (number/high power field)Ordered By: Dean Del Cid on 01-01-2025 Bacteria LM.HPF (Urine sed) [#/Area] 0 /[HPF] None Seen [facility] Urine specific gravity measu rementOrdered By: Dean Del Cid on 01-01-2025 Specific gravity (U) [Rel density] 1.010 1.002-1.[address] [facility] Urine urobilinogen measureme ntOrdered By: Dean Del Cid on 01-01-2025 Urobilinogen Ql (U) Normal mg/dl Normal [facility] Urobilinogen Ql (U)Ordered B y: Dean Del Cid on 01-01-2025 Urine Urobilinogen Normal mg/dl Normal [facility] White blood cell (WBC) count Ordered By: Dean Del Cid on 01-01-2025 WBC (Bld) [#/Vol] 5.9 10*3/uL 4.4-11.0 [facility] White blood cell countOrdere d By: Dean Del Cid on 01-01-2025 Urine WBC 0 SEEN /hpf 0-[address] [facility] White blood cell count 0 SEEN /hpf 0-5 [facility] Magnetic resonance imaging r eportOrdered By: Gregg Garcia on 12-22-2024 Study report [facility] Imaging Services [address] [place] [address] Spine Lumbar (Routine) MR#: [id number] Acct: [id number] Name: WINSTON MARI Paul Rep #: [id number] : 1955 M 69 From: Sohail Garcia DO PCP: Dr. Eugenio Mayen DO Status: REG CLI Study:Spine Lumbar (Routine) Date of Exam: 12/22/24 Exam# [id number] Ordering Dr: Memo Campbell PROCEDURE: MRI SPINE [...] arthropathy with no significant central canal stenosis. Hdkd-ww-jiumamrv left and mild right neural foraminal narrowing [...] likely on a degenerative basis. Reading Location: [facility] CC: NIKI Rock; Dr. Eugenio Mayen DO ~ Museum Security Chief: Signed [facility] Spine Lumbar (Routine)on Spine Lumbar (Routine) [facility] Imaging Services [address] [place] [address] Spine Lumbar (Routine) MR#: [id number] Acct: [id number] Name: WINSTON MARI Rep #: [id number] : 1955 M 69 From: [facility] PCP: Dr. Eugenio Mayen, Status: REG CLI Study: Spine Lumbar (Routine) Date of Exam: 12/22/24 Exam# [id number] Ordering Dr: Aiyana Campbell PROCEDURE: MRI SPINE [...] arthropathy with no significant central canal stenosis. Scoa-tn-irhgdouo left and mild right neural foraminal narrowing [...] CC: NIKI Rock; Dr. Eugenio Mayen DO Museum Security Chief: Signed Normal [facility] .Auto Diffon 12-18-2024 Basophil, Absolute 0.1 10 3/mcL Normal 0.0-0.2 [facility] Comment on above: Performed By: #### P SA, CBC, CMP, ADIFF, FERR, LIPID, VIDH, A1C, ANEU, GFR #### [address] [address] Basophils/100 WBC (Bld) 1.0 % Normal 0.0-2.5 [facility] Comment on above: Performed By: #### P SA, CBC, CMP, ADIFF, FERR, LIPID, VIDH, A1C, ANEU, GFR #### [address] [address] Eosinophil, Absolute 0.4 10 3/mcL Normal 0.0-0.[address] [facility] Comment on above: Performed By: #### P SA, CBC, CMP, ADIFF, FERR, LIPID, VIDH, A1C, ANEU, GFR #### [address] [address] Eosinophils/100 WBC (Bld) 6.4 % Normal 0.0-7.0 [facility] Comment on above: Performed By: #### P SA, CBC, CMP, ADIFF, FERR, LIPID, VIDH, A1C, ANEU, GFR #### [address] [address] Lymphocyte, Absolute 1.4 10 3/mcL Normal 0.9-4.[address] [facility] Comment on above: Performed By: #### P SA, CBC, CMP, ADIFF, FERR, LIPID, VIDH, A1C, ANEU, GFR #### [address] [address] Lymphocytes/100 WBC (Bld) 21.0 % Normal 20.0-40.0 [facility] Comment on above: Performed By: #### P SA, CBC, CMP, ADIFF, FERR, LIPID, VIDH, A1C, ANEU, GFR #### [address] [address] Monocyte, Absolute 0.7 10 3/mcL Normal 0.1-1.4 [facility] Comment on above: Performed By: #### P SA, CBC, CMP, ADIFF, FERR, LIPID, VIDH, A1C, ANEU, GFR #### [address] [address] Monocytes/100 WBC (Bld) 10.5 % Normal 2.0-13.0 [facility] Comment on above: Performed By: #### P SA, CBC, CMP, ADIFF, FERR, LIPID, VIDH, A1C, ANEU, GFR #### [address] [address] Neutrophils/100 WBC (Bld) 61.1 % Normal 50.0-75.0 [facility] Comment on above: Performed By: #### P SA, CBC, CMP, ADIFF, FERR, LIPID, VIDH, A1C, ANEU, GFR #### [address] [address] .GFRon 12-18-2024 Estimated Glomerular Filtration Rate 81 ml/min/1.73sqm Normal [facility] Comment on above: Result Comment: Stages of [...] LIPID, VIDH, A1C, ANEU, GFR #### [address] [address] .NEUABSon 12-18-2024 Neutrophil, Absolute 4.0 10 3/mcL Normal 2.3-8.[address] [facility] Comment on above: Performed By: #### P SA, CBC, CMP, ADIFF, FERR, LIPID, VIDH, A1C, ANEU, GFR #### [place] [id number] A1Con 12-18-2024 Glucose [Mass/Vol] 114 mg/dL Normal [facility] Comment on above: Result Comment: Josee mated Average Glucose calculated by equation ((28.7xA1C)-46.7) Estimated average glucose (eAG) is a calculated value from Hemoglobin A1C and is retail account representative of the average blood glucose level in the last 2-3 month period. Normal range: less than 114 mg/dL Performed By: #### P SA, CBC, CMP, ADIFF, FERR, LIPID, VIDH, A1C, ANEU, GFR ####[place] [address] HbA1c (Bld) [Mass fraction] 5.6 % Normal 4.3-6.4 [facility] Comment on above: Performed By: #### P SA, CBC, CMP, ADIFF, FERR, LIPID, VIDH, A1C, ANEU, GFR ####[address] [address] CBCon 12-18-2024 Erythrocyte distribution width (RBC) [Ratio] 14.9 % Normal 11.5-15.5 [facility] Comment on above: Performed By: #### P SA, CBC, CMP, ADIFF, FERR, LIPID, VIDH, A1C, ANEU, GFR #### [place] [address] Hematocrit (Bld) [Volume fraction] 36.8 % Low 40.0-52.0 [facility] Comment on above: Performed By: #### P SA, CBC, CMP, ADIFF, FERR, LIPID, VIDH, A1C, ANEU, GFR #### [address] [address] Hgb 12.6 G/dL Low 13.0-17.5 [facility] Comment on above: Performed By: #### P SA, CBC, CMP, ADIFF, FERR, LIPID, VIDH, A1C, ANEU, GFR #### [address] [address] MCH (RBC) [Entitic mass] 30.9 pg Normal 27.0-33.0 [facility] Comment on above: Performed By: #### P SA, CBC, CMP, ADIFF, FERR, LIPID, VIDH, A1C, ANEU, GFR #### [place] [address] MCHC 34.3 G/dL Normal 32.0-36.0 [facility] Comment on above: Performed By: #### P SA, CBC, CMP, ADIFF, FERR, LIPID, VIDH, A1C, ANEU, GFR #### [place] [id number] MCV (RBC) [Entitic vol] 89.9 fL Normal 81.0-100.0 [facility] Comment on above: Performed By: #### P SA, CBC, CMP, ADIFF, FERR, LIPID, VIDH, A1C, ANEU, GFR #### [address] [address] Platelet 390 10 3/mcL Normal 150-450 [facility] Comment on above: Performed By: #### P SA, CBC, CMP, ADIFF, FERR, LIPID, VIDH, A1C, ANEU, GFR #### [address] [address] Platelet mean volume (Bld) [Entitic vol] 6.9 fL Normal 6.4-10.5 [facility] Comment on above: Performed By: #### P SA, CBC, CMP, ADIFF, FERR, LIPID, VIDH, A1C, ANEU, GFR #### [place] [id number] RBC 4.09 10 6/mcL Low 4.50-6.00 [facility] Comment on above: Performed By: #### P SA, CBC, CMP, ADIFF, FERR, LIPID, VIDH, A1C, ANEU, GFR #### [address] [address] WBC 6.6 10 3/mcL Normal 4.5-10.8 [facility] Comment on above: Performed By: #### P SA, CBC, CMP, ADIFF, FERR, LIPID, VIDH, A1C, ANEU, GFR #### [address] [address] CMPon 12-18-2024 Albumin Level 3.8 G/dL Normal 3.4-4.8 [facility] Comment on above: Performed By: #### P SA, CBC, CMP, ADIFF, FERR, LIPID, VIDH, A1C, ANEU, GFR #### [address] [address] Albumin/Globulin [Mass ratio] 1.2 {ratio} Normal 1.1-2.5 [facility] Comment on above: Performed By: #### P SA, CBC, CMP, ADIFF, FERR, LIPID, VIDH, A1C, ANEU, GFR #### [address] [address] ALP [Catalytic activity/Vol] 95 U/L Normal 40-135 [facility] Comment on above: Performed By: #### P SA, CBC, CMP, ADIFF, FERR, LIPID, VIDH, A1C, ANEU, GFR #### [address] [address] ALT [Catalytic activity/Vol] 22 U/L Normal 16-63 [facility] Comment on above: Performed By: #### P SA, CBC, CMP, ADIFF, FERR, LIPID, VIDH, A1C, ANEU, GFR #### [address] [address] AST [Catalytic activity/Vol] 20 U/L Normal 10-40 [facility] Comment on above: Performed By: #### P SA, CBC, CMP, ADIFF, FERR, LIPID, VIDH, A1C, ANEU, GFR #### [address] [address] Bili Total 0.3 mg/dL Normal 0.2-1.0 [facility] Comment on above: Result Comment: Use of this assay is not recommended for patients undergoing treatment with eltrombopag due to the potential for falsely elevated results. Performed By: #### P SA, CBC, CMP, ADIFF, FERR, LIPID, VIDH, A1C, ANEU, GFR #### [address] [address] BUN/Creatinine Ratio 23 ratio Normal 7-27 [facility] Comment on above: Performed By: #### P SA, CBC, CMP, ADIFF, FERR, LIPID, VIDH, A1C, ANEU, GFR #### [place] [address] Calcium [Mass/Vol] 9.0 mg/dL Normal 8.4-10.2 [facility] Comment on above: Performed By: #### P SA, CBC, CMP, ADIFF, FERR, LIPID, VIDH, A1C, ANEU, GFR #### [address] [address] Chloride [Moles/Vol] 104 mmol/L Normal 98-107 [facility] Comment on above: Performed By: #### P SA, CBC, CMP, ADIFF, FERR, LIPID, VIDH, A1C, ANEU, GFR #### [address] [address] CO2 [Moles/Vol] 26 mmol/L Normal 23-31 [facility] Comment on above: Performed By: #### P SA, CBC, CMP, ADIFF, FERR, LIPID, VIDH, A1C, ANEU, GFR #### [address] [address] Creatinine [Mass/Vol] 1.01 mg/dL Normal 0.70-1.30 [facility] Comment on above: Result Comment: Test ing performed on Siemens Dimension EXL analyzer using a modified kinetic Polly technique. Performed By: #### P SA, CBC, CMP, ADIFF, FERR, LIPID, VIDH, A1C, ANEU, GFR #### [address] [address] Electrolyte Balance 9.0 mEq/L Normal 4.0-15.0 [facility] Comment on above: Performed By: #### P SA, CBC, CMP, ADIFF, FERR, LIPID, VIDH, A1C, ANEU, GFR #### [address] [address] Globulin 3.2 G/dL Normal 1.5-3.8 [facility] Comment on above: Performed By: #### P SA, CBC, CMP, ADIFF, FERR, LIPID, VIDH, A1C, ANEU, GFR #### [address] [address] Glucose [Mass/Vol] 83 mg/dL Normal 80-115 [facility] Comment on above: Performed By: #### P SA, CBC, CMP, ADIFF, FERR, LIPID, VIDH, A1C, ANEU, GFR #### [address] [address] Potassium [Moles/Vol] 4.6 mmol/L Normal 3.5-5.1 [facility] Comment on above: Performed By: #### P SA, CBC, CMP, ADIFF, FERR, LIPID, VIDH, A1C, ANEU, GFR #### [address] [address] Sodium [Moles/Vol] 139 mmol/L Normal 136-145 [facility] Comment on above: Performed By: #### P SA, CBC, CMP, ADIFF, FERR, LIPID, VIDH, A1C, ANEU, GFR #### [address] [address] Total Protein 7.0 G/dL Normal 6.4-8.2 [facility] Comment on above: Performed By: #### P SA, CBC, CMP, ADIFF, FERR, LIPID, VIDH, A1C, ANEU, GFR #### [address] [address] Urea nitrogen [Mass/Vol] 23 mg/dL High 7-18 [facility] Comment on above: Performed By: #### P SA, CBC, CMP, ADIFF, FERR, LIPID, VIDH, A1C, ANEU, GFR #### [place] [address] [place], [place] [address] Sina 12-18-2024 Ferritin [Mass/Vol] 68.0 ng/mL Normal 26.0-388.0 [facility] Comment on above: Performed By: #### P SA, CBC, CMP, ADIFF, FERR, LIPID, VIDH, A1C, ANEU, GFR #### [place] [address] [place], [place] [address] LIPIDon 12-18-2024 Cholesterol [Mass/Vol] 136 mg/dL Normal 0-[address] [facility] Comment on above: Result Comment: Chol esterol Reference Interval: Less than 200 Desirable 200-239 Borderline high risk 240 and above High risk Performed By: #### P SA, CBC, CMP, ADIFF, FERR, LIPID, VIDH, A1C, ANEU, GFR ####[place] [address] [place], [place] [address] Cholesterol in HDL [Mass/Vol] 38 mg/dL Low 40-60 [facility] Comment on above: Performed By: #### P SA, CBC, CMP, ADIFF, FERR, LIPID, VIDH, A1C, ANEU, GFR ####[place] [address] [place], [place] [address] Cholesterol in LDL [Mass/Vol] 84 mg/dL Normal 0-130 [facility] Comment on above: Performed By: #### P SA, CBC, CMP, ADIFF, FERR, LIPID, VIDH, A1C, ANEU, GFR ####[place] [address] [place], [place] [address] Triglyceride [Mass/Vol] 72 mg/dL Normal 0-150 [facility] Comment on above: Result Comment: Trig lyceride Reference Interval: Less than 150 Normal 150-199 Borderline high risk 200-499 High risk 500 or higher Very high risk Performed By: #### P SA, CBC, CMP, ADIFF, FERR, LIPID, VIDH, A1C, ANEU, GFR ####[address] [place], [place] [address] PSAon 12-18-2024 Prostate Specific Antigen 1.51 ng/mL Normal 0.00-4.00 [facility] Comment on above: Performed By: #### P SA, CBC, CMP, ADIFF, FERR, LIPID, VIDH, A1C, ANEU, GFR ####[address] [place], [place] [address] VIDHon 12-18-2024 Vit. D 25-Hydroxy 31.7 ng/mL Normal [facility] Comment on above: Result Comment: Inte rpretive Values Based on Total 25(OH) Vitamin D: Deficient <20 ng/mL Insufficient 20 - <30 ng/mL Sufficient 30-100 ng/mL Performed By: #### P SA, CBC, CMP, ADIFF, FERR, LIPID, VIDH, A1C, ANEU, GFR ####[address] [place], [place] [address] Orthopedic Visit Reporton Orthopedic Visit Report [facility] [address] [place] [address] [address] [place] [address] OFFICE VISIT Date of Service: 12/15/24 MR#: [id number] Acct: [id number] Name: WINSTON MARI Rep #: [id number] : 1955 Provider: Dr. Jacob mckeon MD Age/Sex: 69/M Location: [facility] Status: Signed Intake Vital Signs 11/25/24 10:50 Height 5 ft 11 in Intake Visit Reasons: LEFT SHOULDER Stone Driller Required: No Accompanied by: Self Is patient in pain?: Yes (left shoulder) Pain scale (1-10): 8 Allergies adhesive tape (tape) Adverse Reaction (Verified 12/15/24 10:54) Rash hydrocodone (From [place]) Adverse Reaction (Verified 12/15/24 10:54) Upset Stomach [...] History hydrocortisone acetate 25 mg 25 mg OK QHS #12 ea 04/27/2212/15 Rx rectal suppository [...] lumbar spine for compression fracture. Supplemental Info [facility] Imaging Services [address] [place], [place] [id number] Upper Ext Joint Only(Routine) MR#: [id number] Acct: [id number] Name: WINSTON MARI Rep #: [id number] : 1955 M 69 From: Doug Coats DO PCP: Dr. Eugenio Mayen DO Status: REG CLI Study: Upper Ext Joint Only(Routine) Date of Exam: 12/08/24 Exam# [id number] Ordering Dr: Jacob Dominguez MD PROCEDURE: MRI [...] Small gleno (more content not included)... Normal [facility] Upper Ext Joint Only(Routine )on 12-08-2024 Upper Ext Joint Only(Routine) [facility] Imaging Services [address] [place] [address] Upper Ext Joint Only(Routine) MR#: [id number] Acct: [id number] Name: WINSTON MARI Rep #: [id number] : 1955 M 69 From: Doug Asher PCP: Dr. Eugenio Mayen DO Status: REG CLI Study: Upper Ext Joint Only(Routine) Date of Exam: 0 12/08/24 Exam# [id number] Ordering Dr: Jacob Dominguez MD PROCEDURE: MRI [...] Eugenio Mayen DO; Dr. Jacob Dominguez MD Museum Security Chief: Signed Normal [facility] Brain/Head without Contrasto n 11-25-2024 Brain/Head without Contrast [facility] Imaging Services [address] [place] [address] Brain/Head without Contrast MR#: [id number] Acct: [id number] Name: WINSTON MARI Rep #: [id number] : 1955 M 69 From: Patricia Del Cid MD PCP: Dr. Eugenio Mayen DO Status: REG ER Study: Brain/Head without Contrast Date of Exam: 02/13 Exam# [id number] Ordering Dr: Abril Velarde DO EXAM: CT [...] evaluation with MRI is recommended. Reading Location: [facility] CC: Dr. Eugenio Mayen DO; Dr. Abril Velarde DO Museum Security Chief: Signed Normal [facility] Emergency Department Summary on 11-25-2024 Emergency Department Summary [facility] Medical Records Department [address] [place] [address] Emergency Department Summary 11/25/24 MR#: [id number] Acct: [id number] Name: WINSTON MARI Rep #: [id number] : 1955 69 From: Abril Velarde DO [...] pain relief. He has had no vomiting. [facility] Medical History Anemia GERD (gastroesophageal reflux disease) Left shoulder pain Hemorrhoid Epilepsy Sciatica High cholesterol Home Medications ???Medication ???Instructions ???Recorded ???Last Taken ???Type gabapentin 300 mg capsule 300 mg PO 4X/DAY 04/02/22 Unknown History hydrocortisone acetate 25 mg 25 mg OK QHS #12 ea 04/27/22 Unkno wn Rx [...] AdvReac Rash Verified 11/25/24 10:50 hydrocodone (From [place]) AdvReac Upset Verified 11/25/24 10:50 Stomach ibuprofen [...] polydipsia, polyp (more content not included)... Normal [facility] Shoulder min 2 Viewson 11-25 Shoulder min 2 Views [facility] Services [address] [place], [place] [id number] Shoulder min 2 Views MR#: [id number] Acct: [id number] Name: WINSTON MARI Rep #: [id number] : 1955 M 69 From: Patricia Del Cid MD PCP: Dr. Eugenio Mayen DO Status: REG ER Study: Shoulder min 2 Views Date of Exam: 11/25/24 Exam# [id number] Ordering Dr: Abril Velarde DO EXAM: XR Left Shoulder Complete, 2 or More Views CLINICAL INDICATION: TECHNIQUE: Two or more views of the left shoulder. COMPARISON: No relevant prior studies available. FINDINGS: BONES/JOINTS: Unremarkable. No acute fracture. No dislocation. SOFT TISSUES: Unremarkable. RAD/Shoulder min 2 Views IMPRESSION: No acute fracture. Reading Location: [facility] CC: Dr. Eugenio Mayen DO; Dr. Abril Velarde DO Museum Security Chief: Signed Normal [facility] Spine Cervical without Contr ason 11-25-2024 Spine Cervical without Contras [facility] [address] [place] [address] Spine Cervical without Contras MR#: [id number] Acct: [id number] Name: WINSTON MARI Rep #: [id number] : 1955 M 69 From: Patricia Del Cid MD PCP: Dr. Eugenio Mayen DO Status: REG ER Study: Spine Cervical without Contras Date of Exam: 0 11/25/24 Exam# [id number] Ordering Dr: Abril Velarde DO EXAM: CT [...] the cervical spine as described. Reading Location: [facility] CC: Dr. Eugenio Mayen DO; Dr. Abril Velarde DO Museum Security Chief: Signed Normal [facility] Lumbar Spine 2 or 3 Viewson 11-18-2024 Lumbar Spine 2 or 3 Views [facility] Services [address] [place], [place] [address] Lumbar Spine 2 or 3 Views MR#: [id number] Acct: [id number] Name: WINSTON MARI Rep #: [id number] : 1955 M 69 From: Will Padron DO PCP: Dr. Eugenio Mayen DO Status: DEP AMB Study: Lumbar Spine 2 or 3 Views Date of Exam: Exam# [id number] Ordering Dr: Aiyana Campbell PROCEDURE: LUMBAR SPINE [...] ileus or developing bowel obstruction. Reading Location: [facility] CC: NIKI Rock; Dr. Eugenio Mayen DO Museum Security Chief: Signed Normal [facility] Orthopedic Visit Reporton Orthopedic Visit Report [facility] [address] [place] [address] OFFICE VISIT Date of Service: 11/18/24 MR#: [id number] Acct: [id number] Name: WINSTON MARI Rep #: [id number] : 1955 Provider: NIKI Rock Age/Sex: 69/M Location: [facility] Status: Signed Intake Vital Signs 11/05/24 14:16 11/12/24 12:16 Height 5 ft 11 in 5 ft 11 in Intake Visit Reasons: LUMBAR SPINE Allergies adhesive tape (tape) Adverse Reaction (Verified 11/18/24 13:30) Rash hydrocodone (From [place]) Adverse Reaction (Verified 11/18/24 13:30) Upset Stomach [...] History hydrocortisone acetate 25 mg 25 mg OK QHS #12 ea 04/27/22 11/18/24 Rx rectal [...] service provided and the decisions made by , NIKI Rock 11/18/24 2786. Part of today???s visit was documented by Araseli POPE, acting as scribe. WINSTON MARI is a 69 year old M here today for ED f/u on low back pain. He states that in 2022 he fell off a roof about 30ft and fractured L2 and L4 and was sent to [facility] for 3[facility]4 days. He was then recommended to have a kyphoplasty but he refused it because of the chance of it leaking out and getting into his bloodstream. He then had a recent fall when he fell off a 10ft ladder trying to fix a light on a [employer] go round and fractured L1. He was [...] [facility] pain management [facility]. Worsening pain over the last week with [...] M51.362 Disc-relate (more content not included)... Normal [facility] Orthopedic Visit Reporton Orthopedic Visit Report [facility] [address] [place] [id number] OFFICE VISIT Date of Service: 11/13/24 MR#: [id number] Acct: [id number] Name: WINSTON MARI Paul Rep #: [id number] : 1955 Provider: Dr. Jacob mckeon MD Age/Sex: 69/M Location: [facility] Status: Signed Intake Vital Signs 11/05/24 14:16 11/12/24 12:16 Height 5 ft 11 in 5 ft 11 in Weight: 161 lb BMI 22.4 Intake Visit Reasons: LEFT SHOULDER Accompanied by: Self Is patient in pain?: Yes (left arm and low back) Pain scale (1-10): 9 Allergies adhesive tape (tape) Adverse Reaction (Verified 11/13/24 14:08) Rash hydrocodone (From [place]) Adverse Reaction (Verified 11/13/24 14:08) Upset Stomach ibuprofen Adverse Reaction (Verified 11/13/24 14:08) Upset Stomach ketorolac (From Toradol) Adverse Reaction (Verified 11/13/24 14:08) Rash meloxicam (From Mobic) Adverse Reaction (Verified 11/13/24 14:08) Muscle weakness naproxen Adverse Reaction (Verified 11/13/24 14:08) Rash tramadol Adverse Reaction (Verified 11/13/24 14:08) Upset Stomach Have you fallen in the past year?: Yes [facility] Medical History (Updated 11/13/24 @ 14:17 by [...] This started about a year ago. Patient ucrpc-fsbv-xeleslmg. He fell off a ladder as well over the last week and feels like he can barely lift up his arm. He works in the [employer] travels around quite a bit this summer his nephew on some [employer] games has to maintain those follow-up for [...] had surgery on her shoulder. Supplemental Info [facility] [address] [facility] [place], [place] [address] Shoulder min 2 Views MR#: [id number] Acct: [id number] Name: WINSTON MARI Rep #: [id number] : 1955 M 69 From: Richard Cortez DO PCP: Dr. Eugenio Mayen DO Status: REG ER Study: Shoulder min 2 Views Date of Exam: 11/05/24 Exam# [id number] Ordering Dr: Dennis Strickland DO [id number] INDICATION: fall pain EXAMINATION/TECHNIQUE: X-RAY - LEFT [...] 17:00 EST Reading Location ID and State: [facility] [place] Tel [phone], Service support , [facility] [address] [place] [address] Humerus min 2 Views MR#: [id number] Acct: [id number] Name: WINSTON MARI Rep #: [id number] : 1955 M 69 From: Richard Cortez DO PCP: Dr. Eugenio Mayen DO Status: REG ER Study: Humerus min 2 Views Date of Exam: 11/05/24 Exam# [id number] Ordering Dr: Dennis Strickland DO [id number] INDICATION: fall, pain EXAMINATION/TECHNIQUE (more content not included)... Normal [facility] Absolute neutrophil countOrd ered By: Dennis Strickland on 11-05-2024 Neutrophils (Bld) [#/Vol] 5.8 10*3/uL 2.0-7.[address] [facility] Bacteria LM.HPF (Urine sed) [#/Area]Ordered By: Dennis Strickland on 11-05-2024 Urine Bacteria RARE /hpf None Seen [facility] Basic Metabolic Profile (BMP )on 11-05-2024 BUN/CRE 11.9 RATIO Normal 10-[address] [facility] Comment on above: Performed By: #### L 500.2500, L500.3400 #### [facility] [address] [place], [address] CA,Total 8.4 mg/dL Low 8.5-10.[address] [facility] Comment on above: Performed By: #### L 500.2500, L500.3400 #### [facility] [address] [place], [address] Chloride [Moles/Vol] 107 mmol/L Normal 98-107 [facility] Comment on above: Performed By: #### L 500.2500, L500.3400 #### [facility] [address] [place], [address] CO2 [Moles/Vol] 27.0 mmol/L Normal 21.0-32.[address] [facility] Comment on above: Performed By: #### L 500.2500, L500.3400 #### [facility] [address] [place], [place], [address] Creatinine [Mass/Vol] 1.01 mg/dL Normal 0.70-1.30 [facility] Comment on above: Result Comment: The validity of the calculated GFR GFRAA in patients over 70 years has not been determined. Clinical correlation is essential. Performed By: #### L 500.2500, L500.3400 #### [facility] [address] [place], [address] ECRCL 70.59 ml/min Normal [facility] Comment on above: Performed By: #### L 500.2500, L500.3400 #### [facility] [address] [place], [address] EST GFR - AA 94 mL/min Normal >[address] [facility] Comment on above: Result Comment: Afri can Iraqi GFR Calc Performed By: #### L 500.2500, L500.3400 #### [facility] [address] [place], [address] GAP 6 Normal 5-[address] [facility] Comment on above: Performed By: #### L 500.2500, L500.3400 #### [facility] [address] [place], [address] GFR/1.73 sq M.predicted among non-blacks MDRD (S/P/Bld) [Vol rate/Area] 78 mL/min/{1.73_m2} Normal >[address] [facility] Comment on above: Result Comment: Non- GFR Calc Performed By: #### L 500.2500, L500.3400 #### [facility] [address] [place], [address] Glucose [Mass/Vol] 80 mg/dL Normal 74-106 [facility] Comment on above: Performed By: #### L 500.2500, L500.3400 #### [facility] [address] [place], [address] Potassium [Moles/Vol] 3.6 mmol/L Normal 3.5-5.1 [facility] Comment on above: Performed By: #### L 500.2500, L500.3400 #### [facility] [address] [place], [address] Sodium [Moles/Vol] 140 mmol/L Normal 136-145 [facility] Comment on above: Performed By: #### L 500.2500, L500.3400 #### [facility] [address] [place], [address] Urea nitrogen [Mass/Vol] 12 mg/dL Normal 7-[address] [facility] Comment on above: Performed By: #### L 500.2500, L500.3400 #### [facility] [address] [place], [address] BUN Normal 7-[address] [facility] Comment on above: Result Comment: This specimen has been REJECTED due to Laboratory criteria: Hemolyzed. STANLEY has been notified of need of recollection. 11/05/24 1548 Heather Lollo Performed By: #### L 100.0100, L500.2500, L500.3400 #### [facility] [address] [place], [address] BUN/CRE Normal 10-[address] [facility] Comment on above: Result Comment: This specimen has been REJECTED due to Laboratory criteria: Hemolyzed. STANLEY has been notified of need of recollection. 11/05/24 1548 Heather Lollo Performed By: #### L 100.0100, L500.2500, L500.3400 #### [facility] [address] [place], [address] CA,Total Normal 8.5-10.[address] [facility] Comment on above: Result Comment: This specimen has been REJECTED due to Laboratory criteria: Hemolyzed. STANLEY has been notified of need of recollection. 11/05/24 1548 Heather Lollo Performed By: #### L 100.0100, L500.2500, L500.3400 #### [facility] [address] [place], [address] CL Normal 98-[address] [facility] Comment on above: Result Comment: This specimen has been REJECTED due to Laboratory criteria: Hemolyzed. STANLEY has been notified of need of recollection. 11/05/24 1548 Heather Lollo Performed By: #### L 100.0100, L500.2500, L500.3400 #### [facility] [address] [place], [address] CO2 Normal 21.0-32.[address] [facility] Comment on above: Result Comment: This specimen has been REJECTED due to Laboratory criteria: Hemolyzed. STANLEY has been notified of need of recollection. 11/05/24 1548 Heather Lollo Performed By: #### L 100.0100, L500.2500, L500.3400 #### [facility] [address] [place], [address] CREAT,SERUM Normal 0.70-1.[address] [facility] Comment on above: Result Comment: This specimen has been REJECTED due to Laboratory criteria: Hemolyzed. STANLEY has been notified of need of recollection. 11/05/24 1548 Heather Lollo Performed By: #### L 100.0100, L500.2500, L500.3400 #### [facility] [address] [place], [address] EST GFR Normal >[address] [facility] Comment on above: Result Comment: This specimen has been REJECTED due to Laboratory criteria: Hemolyzed. STANLEY has been notified of need of recollection. 11/05/24 1548 Heather Lollo Performed By: #### L 100.0100, L500.2500, L500.3400 #### [facility] [address] [place], [address] EST GFR - AA Normal >[address] [facility] Comment on above: Result Comment: This specimen has been REJECTED due to Laboratory criteria: Hemolyzed. STANLEY has been notified of need of recollection. 11/05/24 1548 Heather Lollo Performed By: #### L 100.0100, L500.2500, L500.3400 #### [facility] [address] [place], [address] GAP Normal 5-[address] [facility] Comment on above: Result Comment: This specimen has been REJECTED due to Laboratory criteria: Hemolyzed. STANLEY has been notified of need of recollection. 11/05/24 1548 Heather Lollo Performed By: #### L 100.0100, L500.2500, L500.3400 #### [facility] [address] [place], [address] GLU Normal 74-[address] [facility] Comment on above: Result Comment: This specimen has been REJECTED due to Laboratory criteria: Hemolyzed. STANLEY has been notified of need of recollection. 11/05/24 1548 Heather Lollo Performed By: #### L 100.0100, L500.2500, L500.3400 #### [facility] [address] [place], [address] Potassium Normal 3.5-5.[address] [facility] Comment on above: Result Comment: This specimen has been REJECTED due to Laboratory criteria: Hemolyzed. STANLEY has been notified of need of recollection. 11/05/24 1548 Heather Lollo Performed By: #### L 100.0100, L500.2500, L500.3400 #### [facility] [address] [place], [address] Basic Metabolic Profile (BMP) Normal 136-[address] [facility] Comment on above: Result Comment: This specimen has been REJECTED due to Laboratory criteria: Hemolyzed. STANLEY has been notified of need of recollection. 11/05/24 1548 Heather Montez Performed By: #### L 100.0100, L500.2500, L500.3400 #### [facility] [address] [place], [place], [address] Basophil percentageOrdered B y: Dennis Strickland on 11-05-2024 Basophils/100 WBC (Bld) 0.7 % 0-[address] [facility] Bilirubin Test strip Ql (U)O rdered By: Dennis Strickland on 11-05-2024 Bilirubin Ql (U) Negative Negative [facility] Bilirubin directOrdered By: Dennis Strickland on 11-05-2024 Bilirubin.direct [Mass/Vol] 0.21 mg/dL 0.00-0.[address] [facility] Bilirubin, totalOrdered By: Dennis Strickland on 11-05-2024 Bilirubin [Mass/Vol] 1.00 mg/dL 0.20-1.00 [facility] Comment on above: For patients on eltr ombopag therapy, use of Dimension [place] TBIL is not recommended. Blood urea nitrogen (BUN)/cr eatinine ratioOrdered By: Dennis Strickland on 11-05-2024 Urea nitrogen/Creatinine [Mass ratio] 11.9 mg/mg 10-[address] [facility] Brain/Head without Contrasto n 11-05-2024 Brain/Head without Contrast [facility] Imaging Services [address] [place] [address] Brain/Head without Contrast MR#: [id number] Acct: [id number] Name: WINSTON MARI Paul Rep #: [id number] : 1955 M 69 From: Sorin galindo MD PCP: Dr. Eugenio Mayen, DO Status: REG ER Study: Brain/Head without Contrast Date of Exam: 10/22 03/15 Exam# [id number] Ordering Dr: Dennis Strickland DO [id number] STUDY: CT BRAIN WITHOUT CONTRAST REASON FOR [...] Electronically Signed: Sorin Sorensen MD at 15:46 [facility] Reading Location ID and State: [address] [place] [address] , Service support , CC: Dr. Eugenio Mayen, DO; Dr. Dennis Strickland DO Museum Security Chief: Signed Normal [facility] CBC W/Diff, Automatedon 10-22 Absolute Lymph 1.68 X10 3/uL Normal 0.83-4.[address] [facility] Comment on above: Performed By: #### L 100.0100, L500.2500, L500.3400 #### [facility] [address] [place], [address] Absolute Neut 5.8 X10 3/uL Normal 2.0-7.[address] [facility] Comment on above: Performed By: #### L 100.0100, L500.2500, L500.3400 #### [facility] [address] [place], [address] Basophils/100 WBC (Bld) 0.7 % Normal 0-[address] [facility] Comment on above: Performed By: #### L 100.0100, L500.2500, L500.3400 #### [facility] [address] [place], [address] Eosinophils/100 WBC (Bld) 3.3 % Normal 0-[address] [facility] Comment on above: Performed By: #### L 100.0100, L500.2500, L500.3400 #### [facility] [address] [place], [address] Erythrocyte distribution width (RBC) [Ratio] 13.8 % Normal 11.6-14.[address] [facility] Comment on above: Performed By: #### L 100.0100, L500.2500, L500.3400 #### [facility] [address] [place], [address] Hematocrit (Bld) [Volume fraction] 39.3 % Low 40-[address] [facility] Comment on above: Performed By: #### L 100.0100, L500.2500, L500.3400 #### [facility] [address] [place], [address] Hemoglobin (Bld) [Mass/Vol] 13.1 g/dL Normal 13.0-16.[address] [facility] Comment on above: Performed By: #### L 100.0100, L500.2500, L500.3400 #### [facility] [address] [place], [address] IG% 0.200 Normal 0.0-0.[address] [facility] Comment on above: Result Comment: IG% - Immature Granulocytes (promyelocytes, myelocytes and metamyelocytes) > 1% indicates that a LEFT SHIFT is Present. Performed By: #### L 100.0100, L500.2500, L500.3400 #### [facility] [address] [place], [address] Lymphocytes/100 WBC (Bld) 19.6 % Normal 19-[address] [facility] Comment on above: Performed By: #### L 100.0100, L500.2500, L500.3400 #### [facility] [address] [place], [address] MCH (RBC) [Entitic mass] 30.1 pg Normal 27.0-32.[address] [facility] Comment on above: Performed By: #### L 100.0100, L500.2500, L500.3400 #### [facility] [address] [place], [address] MCHC (RBC) [Mass/Vol] 33.3 g/dL Normal 32-36 [facility] Comment on above: Performed By: #### L 100.0100, L500.2500, L500.3400 #### [facility] [address] [place], [address] MCV (RBC) [Entitic vol] 90.3 fL Normal 80-[address] [facility] Comment on above: Performed By: #### L 100.0100, L500.2500, L500.3400 #### [facility] [address] [place], [address] Monocytes/100 WBC (Bld) 8.7 % Normal 0-[address] [facility] Comment on above: Performed By: #### L 100.0100, L500.2500, L500.3400 #### [facility] [address] [place], [address] Neutrophils/100 WBC (Bld) 67.5 % Normal 47-[address] [facility] Comment on above: Performed By: #### L 100.0100, L500.2500, L500.3400 #### [facility] [address] [place], [address] Nucleated RBC (Bld) [#/Vol] 0 10*3/uL Normal 0-[address] [facility] Comment on above: Performed By: #### L 100.0100, L500.2500, L500.3400 #### [facility] [address] [place], [address] Platelet mean volume (Bld) [Entitic vol] 8.7 fL Normal 6.2-12.[address] [facility] Comment on above: Performed By: #### L 100.0100, L500.2500, L500.3400 #### [facility] [address] [place], [address] Platelets (Bld) [#/Vol] 386 10*3/uL Normal 150-[address] [facility] Comment on above: Performed By: #### L 100.0100, L500.2500, L500.3400 #### [facility] [address] [place], [address] RBC (Bld) [#/Vol] 4.35 10*6/uL Low 4.6-6.2 [facility] Comment on above: Performed By: #### L 100.0100, L500.2500, L500.3400 #### [facility] [address] [place], [address] RDW SD 45.1 fl High 35.1-43.[address] [facility] Comment on above: Performed By: #### L 100.0100, L500.2500, L500.3400 #### [facility] [address] [place], [address] WBC (Bld) [#/Vol] 8.6 10*3/uL Normal 4.4-11.0 [facility] Comment on above: Performed By: #### L 100.0100, L500.2500, L500.3400 #### [facility] [address] [place], [address] CT Chest, Abd, Pel w/Contras ton 11-05-2024 CT Chest, Abd, Pel w/Contrast [facility] Imaging Services [address] [place], [place] [address] CT Chest, Abd, Pel w/Contrast MR#: [id number] Acct: [id number] Name: WINSTON MARI Rep #: [id number] : 1955 M 69 From: Sorin galindo MD PCP: Dr. Eugenio Mayen, DO Status: REG ER Study: CT Chest, Abd, Pel w/Contrast Date of Exam: Exam# [id number] Ordering Dr: Dennis Strickland DO [id number] STUDY: CT CHEST, ABDOMEN T PELVIS WITH [...] Eugenio Mayen DO; Dr. Dennis Strickland DO Museum Security Chief: Signed Normal [facility] Carbon dioxide measurementOr dered By: Dennis Strickland on 11-05-2024 CO2 [Moles/Vol] 27.0 mmol/L 21.0-32.[address] [facility] Chloride measurementOrdered By: Dennis Strickland on 11-05-2024 Chloride [Moles/Vol] 107 mmol/L 98-107 [facility] Elbow min 3 Viewson 11-05-19 25 Elbow min 3 Views [facility] Imaging Services [address] [place], [place] [address] Elbow min 3 Views MR#: [id number] Acct: [id number] Name: WINSTON MARI Rep #: [id number] : 1955 69 From: Richard Cortez DO PCP: Dr. Eugenio Mayen DO Status: REG ER Study: Elbow min 3 Views Date of Exam: 11/05/24 Exam# [id number] Ordering Dr: Dennis Strickland DO [id number] INDICATION: fall, pain EXAMINATION/TECHNIQUE: X-RAY - LEFT [...] Eugenio Mayen DO; Dr. Dennis Strickland DO Museum Security Chief: Signed Normal [facility] Emergency Department Summary on 11-05-2024 Emergency Department Summary [facility] Medical Records Department [address] [place] [address] Emergency Department Summary 11/05/24 MR#: [id number] Acct: [id number] Name: WINSTON MARI Rep #: [id number] : 1955 69 From: Dennis Strickland DO [...] that he was changing lights on a [id number] and notes that when he was coming [...] fractures in his lower back as well. [facility] Medical History Hemorrhoid Epilepsy Sciatica High cholesterol Home Medications ???Medication ???Instructions ???Recorded ???Last Taken ???Type omeprazole 20 mg capsule,delayed 40 mg PO DAILY 03/23/22 Unknown History release gabapentin 300 mg capsule 300 mg PO 4X/DAY 04/02/22 Unknown History hydrocortisone acetate 25 mg 25 mg OK QHS #12 ea 04/27/22 Unknown Rx rectal [...] AdvReac Rash Verified 11/05/24 14:16 hydrocodone (From [place]) AdvReac Upset Verified 11/05/24 14:16 Stomach ibuprofen [...] Abdomen: De (more content not included)... Normal [facility] Eosinophil percentageOrdered By: Dennis Strickland on 11-05-2024 Eosinophils/100 WBC (Bld) 3.3 % 0-[address] [facility] Epithelial cells.squamous LM Ql (Urine sed)Ordered By: Dennis Strickland on 11-05-2024 Epithelial cells.squamous LM.HPF (Urine sed) [#/Area] 0 /[HPF] 0-[address] [facility] Erythrocyte distribution wid th ratioOrdered By: Dennis Strickland on 11-05-2024 Erythrocyte distribution width (RBC) [Ratio] 13.8 % 11.6-14.[address] [facility] Erythrocyte distribution wid th standard deviationOrdered By: Dennis Strickland on 11-05-2024 Erythrocyte distribution width (RBC) [Entitic vol] 45.1 fL High 35.1-43.[address] [facility] Estimated glomerular filtrat ion rate (GFR) AmericanOrdered By: Dennis Strickland on 11-05-2024 Estimated GFR (MDRD) Amer 94 mL/min >[address] [facility] Comment on above: GFR Calc Estimation of creatinine homa aranceOrdered By: Dennis Strickland on 11-05-2024 Estimated Creatinine Clearance Calc 70.59 ml/min [facility] Foot min 3 Viewson 5 Foot min 3 Views [facility] Imaging Services [address] [place] [address] Foot min 3 Views MR#: [id number] Acct: [id number] Name: WINSTON MARI Rep #: [id number] : 1955 M 69 From: Richard Cortez DO PCP: Dr. Eugenio Mayen DO Status: REG ER Study: Foot min 3 Views Date of Exam: 11/05/24 Exam# [id number] Ordering Dr: Dennis Strickland DO [id number] INDICATION: fall from ladder, heal pain EXAMINATION/TECHNIQUE: [...] Eugenio Mayen DO; Dr. Dennis Strickland DO Museum Security Chief: Signed Normal [facility] Foot min 3 Views [facility] Imaging Services [address] [place], [place] [address] Foot min 3 Views MR#: [id number] Acct: [id number] Name: WINSTON MARI Rep #: [id number] : 1955 M 69 From: Richard Cortez DO PCP: Dr. Eugenio Mayen DO Status: REG ER Study: Foot min 3 Views Date of Exam: 11/05/24 Exam# [id number] Ordering Dr: Dennis Strickland DO [id number] INDICATION: PAIN, FALL EXAMINATION/TECHNIQUE: X-RAY - LEFT [...] Eugenio Mayen DO; Dr. Dennis Strickland DO Museum Security Chief: Signed Normal [facility] Glomerular filtration rate ( GFR) estimationOrdered By: Dennis Strickland on 11-05-2024 Estimated GFR (MDRD) Non-Af Amer 78 mL/min >[address] [facility] Comment on above: Non- GFR Calc Glucose Ql (U)Ordered By: Jourdan Strickland on 11-05-2024 Urine Glucose (UA) Normal mg/dl Normal [facility] Glucose measurementOrdered B y: Dennis Strickland on 11-05-2024 Glucose [Mass/Vol] 80 mg/dL 74-106 [facility] Hematocrit Auto (Bld) [Volum e fraction]Ordered By: Dennis Correaer on 11-05-2024 Hematocrit (Bld) [Volume fraction] 39.3 % Low 40-[address] [facility] Hemoglobin measurementOrdere d By: Dennis Correaer on 11-05-2024 Hemoglobin (Bld) [Mass/Vol] 13.1 g/dL 13.0-16.[address] [facility] Humerus min 2 Viewson 2024 Humerus min 2 Views [facility] Imaging Services [address], [place] [address] Humerus min 2 Views MR#: [id number] Acct: [id number] Name: WINSTON MARI Paul Rep #: [id number] : 1955 M 69 From: Richard Cortez DO PCP: Dr. Eugenio Mayen DO Status: REG ER Study: Humerus min 2 Views Date of Exam: 11/05/24 Exam# [id number] Ordering Dr: Dennis Strickland DO [id number] INDICATION: fall, pain EXAMINATION/TECHNIQUE: X-RAY - LEFT [...] Signed: Richard Cortez DO at 17:12 EST , CC: Dr. Eugenio Mayen, ; Dr. Dennis Strickland DO Museum Security Chief: Signed Normal [facility] Immature granulocytes/100 WB C Auto (Bld)Ordered By: Dennis Strickland on 11-05-2024 Immature granulocytes/100 WBC (Bld) 0.200 % 0.0-0.[address] [facility] Comment on above: IG% - Immature Granu locytes (promyelocytes, myelocytes and metamyelocytes) > 1% indicates that a LEFT SHIFT is Present. International normalized rat io (INR) calculationOrdered By: Dennis Strickland on 11-05-2024 INR Coag (Bld) [Relative time] 0.9 {INR} [facility] Ketones Test strip Ql (U)Ord ered By: Dennis Strickland on 11-05-2024 Ketones Ql (U) Negative Negative [facility] - Chemistry and C hemistry - challengeOrdered By: Dennis Strickland on 11-05-2024 AST [Catalytic activity/Vol] 11 U/L Low 15-[address] [facility] Liver Profileon 11-05-2024 Albumin [Mass/Vol] 3.4 g/dL Normal 3.2-5.0 [facility] Comment on above: Performed By: #### L 500.2500, L500.3400 #### [facility] [address] [place], [address] ALK P 81 U/L Normal 45-[address] [facility] Comment on above: Performed By: #### L 500.2500, L500.3400 #### [facility] [address] [place], [address] ALT [Catalytic activity/Vol] 11 U/L Low 16-[address] [facility] Comment on above: Performed By: #### L 500.2500, L500.3400 #### [facility] [address] [place], [address] AST [Catalytic activity/Vol] 11 U/L Low 15-[address] [facility] Comment on above: Performed By: #### L 500.2500, L500.3400 #### [facility] [address] [place], [address] Bilirubin [Mass/Vol] 1.00 mg/dL Normal 0.20-1.00 [facility] Comment on above: Result Comment: For patients on eltrombopag therapy, use of Dimension [place] TBIL is not recommended. Performed By: #### L 500.2500, L500.3400 #### [facility] [address] [place], [address] Bilirubin.direct [Mass/Vol] 0.21 mg/dL Normal 0.00-0.[address] [facility] Comment on above: Performed By: #### L 500.2500, L500.3400 #### [facility] [address] [place], [address] Globulin (S) [Mass/Vol] 3.3 g/dL Normal 2.2-4.[address] [facility] Comment on above: Performed By: #### L 500.2500, L500.3400 #### [facility] [address] [place], [address] T PROT 6.7 g/dL Normal 6.4-8.[address] [facility] Comment on above: Performed By: #### L 500.2500, L500.3400 #### [facility] [address] [place], [address] ALB Normal 3.2-5.[address] [facility] Comment on above: Result Comment: This specimen has been REJECTED due to Laboratory criteria: Hemolyzed. STANLEY has been notified of need of recollection. 11/05/24 Saskia Montez Performed By: #### L 100.0100, L500.2500, L500.3400 #### [facility] [address] [place], [address] ALK P Normal 45-[address] [facility] Comment on above: Result Comment: This specimen has been REJECTED due to Laboratory criteria: Hemolyzed. STANLEY has been notified of need of recollection. 11/05/24 1548 Heather Lollo Performed By: #### L 100.0100, L500.2500, L500.3400 #### [facility] [address] [place], [address] ALT Normal 16-[address] [facility] Comment on above: Result Comment: This specimen has been REJECTED due to Laboratory criteria: Hemolyzed. STANLEY has been notified of need of recollection. 11/05/24 1548 Heather Lollo Performed By: #### L 100.0100, L500.2500, L500.3400 #### [facility] [address] [place], [address] AST Normal 15-[address] [facility] Comment on above: Result Comment: This specimen has been REJECTED due to Laboratory criteria: Hemolyzed. STANLEY has been notified of need of recollection. 11/05/24 1548 Heather Lollo Performed By: #### L 100.0100, L500.2500, L500.3400 #### [facility] [address] [place], [address] D BILI Normal 0.00-0.[address] [facility] Comment on above: Result Comment: This specimen has been REJECTED due to Laboratory criteria: Hemolyzed. STANLEY has been notified of need of recollection. 11/05/24 1548 Heather Lollo Performed By: #### L 100.0100, L500.2500, L500.3400 #### [facility] [address] [place], [address] T BILI Normal 0.20-1.[address] [facility] Comment on above: Result Comment: This specimen has been REJECTED due to Laboratory criteria: Hemolyzed. STANLEY has been notified of need of recollection. 11/05/24 1548 Heather Lollo Performed By: #### L 100.0100, L500.2500, L500.3400 #### [facility] [address] [place], [address] T PROT Normal 6.4-8.[address] [facility] Comment on above: Result Comment: This specimen has been REJECTED due to Laboratory criteria: Hemolyzed. STANLEY has been notified of need of recollection. 11/05/24 1548 Heather Lollo Performed By: #### L 100.0100, L500.2500, L500.3400 #### [facility] [address] [place], [address] Lymphocytes Auto (Unsp spec) [#/Vol]Ordered By: Dennis Strickland on 11-05-2024 Lymphocytes (Bld) [#/Vol] 1.68 10*3/uL 0.83-4.[address] [facility] Lymphocytes/100 WBC Auto (Un sp spec)Ordered By: Dennis Strickland on 11-05-2024 Lymphocytes/100 WBC (Bld) 19.6 % 19-[address] [facility] MCV (mean corpuscular volume ) determinationOrdered By: Dennis Strickland on 11-05-2024 MCV (RBC) [Entitic vol] 90.3 fL 80-[address] [facility] Mean corpuscular hemoglobin (MCH) determinationOrdered By: Dennis Strickland on 11-05-2024 MCH (RBC) [Entitic mass] 30.1 pg 27.0-32.[address] [facility] Mean corpuscular hemoglobin concentration (MCHC) determinationOrdered By: Dennis Strickland on 11-05-2024 MCHC (RBC) [Mass/Vol] 33.3 g/dL 32-36 [facility] Mean platelet volume determi nationOrdered By: Dennis Strickland on 11-05-2024 Platelet mean volume (Bld) [Entitic vol] 8.7 fL 6.2-12.[address] [facility] Microscopic analysis of urin e for red blood cells (RBC)Ordered By: Dennis Strickland on 11-05-2024 Urine RBC 0-5 SEEN /hpf 0-[address] [facility] Monocyte percentageOrdered B y: Dennis Strickland on 11-05-2024 Monocytes/100 WBC (Bld) 8.7 % 0-[address] [facility] Mucus LM Ql (Urine sed)Order ed By: Dennis Strickland on 11-05-2024 Mucus Ql (Urine sed) 0 SEEN /hpf [facility] Neutrophil percentageOrdered By: Dennis Strickland on 11-05-2024 Neutrophils/100 WBC (Bld) 67.5 % 47-[address] [facility] Nitrite Test strip Ql (U)Ord ered By: Dennis Strickland on 11-05-2024 Nitrite Ql (U) Negative Negative [facility] Nucleated red blood cell per centageOrdered By: Dennis Strickland on 11-05-2024 Nucleated RBC/100 WBC (Bld) [Ratio] 0 % 0-[address] [facility] Partial Thromboplast Timeon 11-05-2024 aPTT Coag (Bld) [Time] 27.5 s Normal 24.1-36.2 [facility] Comment on above: Performed By: #### L 300.3900, L300.4310 ####[facility] [address] [place], [address] Platelet countOrdered By: Jourdan Strickland on 11-05-2024 Platelets (Bld) [#/Vol] 386 10*3/uL 150-[address] [facility] Potassium measurementOrdered By: Dennis Strickland on 11-05-2024 Potassium [Moles/Vol] 3.6 mmol/L 3.5-5.1 [facility] Protein Test strip Ql (U)Ord ered By: Dennis Strickland on 11-05-2024 Protein Ql (U) 15 mg/dl High Negative [facility] Prothrombin Time w/INRon INR Coag (PPP) [Relative time] 0.9 {INR} Normal [facility] Comment on above: Performed By: #### L 300.3900, L300.4310 ####[facility] [address] [place], [place], [address] PT Coag (PPP) [Time] 12.8 s Normal 11.7-14.9 [facility] Comment on above: Performed By: #### L 300.3900, L300.9530 ####[facility] [address] [place], [place], [id number] Prothrombin timeOrdered By: Dennis Strickland on 11-05-2024 PT Coag (PPP) [Time] 12.8 s 11.7-14.9 [facility] RBC Auto (Bld) [#/Vol]Ordere d By: Dennis Strickland on 11-05-2024 RBC (Bld) [#/Vol] 4.35 10*6/uL Low 4.6-6.2 [facility] Serum anion gap measurementO rdered By: Dennis Strickland on 11-05-2024 Anion gap [Moles/Vol] 6 mmol/L 5-15 [facility] Serum globulin measurementOr dered By: Dennis Strickland on 11-05-2024 Globulin (S) [Mass/Vol] 3.3 g/dL 2.2-4.[address] [facility] Serum or plasma alanine jules otransferase (ALT) measurementOrdered By: Dennis Strickland on 11-05-2024 ALT [Catalytic activity/Vol] 11 U/L Low 16-[address] [facility] Serum or plasma albumin doug urement (mass/volume)Ordered By: Dennis Strickland on 11-05-2024 Albumin [Mass/Vol] 3.4 g/dL 3.2-5.0 [facility] Serum or plasma alkaline reji sphatase measurementOrdered By: Dennis Strickland on 11-05-2024 ALP [Catalytic activity/Vol] 81 U/L 45-[address] [facility] Serum or plasma calcium doug urement (mass/volume)Ordered By: Dennis Strickland on 11-05-2024 Calcium [Mass/Vol] 8.4 mg/dL Low 8.5-10.1 [facility] Serum or plasma creatinine m easurement (mass/volume)Ordered By: Dennis Strickland on 11-05-2024 Creatinine [Mass/Vol] 1.01 mg/dL 0.70-1.30 [facility] Comment on above: The validity of the calculated GFR & GFRAA in patients over 70 years has not been determined. Clinical correlation is essential. Serum or plasma urea nitroge n measurement (mass/volume)Ordered By: Dennis Strickland on 11-05-2024 Urea nitrogen [Mass/Vol] 12 mg/dL 7-[address] [facility] Shoulder min 2 Viewson 11-05 Shoulder min 2 Views [facility] Imaging Services [address] [place], [place] [address] Shoulder min 2 Views MR#: [id number] Acct: [id number] Name: WINSTON MARI Rep #: [id number] : 1955 M 69 From: Richard Cortez DO PCP: Dr. Eugenio Mayen DO Status: REG ER Study: Shoulder min 2 Views Date of Exam: 11/05/24 Exam# [id number] Ordering Dr: Dennis Strickland DO [id number] INDICATION: fall pain EXAMINATION/TECHNIQUE: X-RAY - LEFT [...] 17:00 EST Reading Location ID and State: [facility] / [place] Tel [phone], Service support , CC: Dr. Eugenio Mayen DO; Dr. Dennis Strickland DO Museum Security Chief: Signed Normal [facility] Sodium levelOrdered By: Salazar Strickland on 11-05-2024 Sodium [Moles/Vol] 140 mmol/L 136-145 [facility] Spine Cervical without Contr ason 11-05-2024 Spine Cervical without Contras [facility] Imaging Services [address] [place], [place] [address] Spine Cervical without Contras MR#: [id number] Acct: [id number] Name: WINSTON MARI Rep #: [id number] : 1955 M 69 From: Richard Cortez DO PCP: Dr. Eugenio Mayen DO Status: REG ER Study: Spine Cervical without Contras Date of Exam: 0 11/05/24 Exam# [id number] Ordering Dr: Dennis Strickland DO [id number] STUDY: CT CERVICAL SPINE WITHOUT CONTRAST REASON [...] 16:57 EST Reading Location ID and State: [facility] / [place] Tel [phone], Service support , CC: Dr. Eugenio Mayen, ; Dr. Dennis Strickland DO Museum Security Chief: Signed Normal [facility] Total proteinOrdered By: Roni Strickland on 11-05-2024 Protein [Mass/Vol] 6.7 g/dL 6.4-8.2 [facility] Transitional cells LM Ql (Ur ine sed)Ordered By: Dennis Strickland on 11-05-2024 Urine Transitional Epithelial Cells 0-5 SEEN /hpf 0-[address] [facility] Urinalysis, Completeon 11-05 BACTERIA RARE Normal None Seen [facility] Comment on above: Order Comment: CLEAN CATCH Performed By: #### L 400.0001 ####[facility] [address] [place], [place], [id number] WBC 0-5 SEEN Normal 0-[address] [facility] Comment on above: Order Comment: CLEAN CATCH Performed By: #### L 400.0001 ####[facility] [address] [place], [place], [phone] RBC 0-5 SEEN Normal 0-[address] [facility] Comment on above: Order Comment: CLEAN CATCH Performed By: #### L 400.0001 ####[facility] [address] [place], [place], [phone] EPI,TRANSITION 0-5 SEEN Normal 0-[address] [facility] Comment on above: Order Comment: CLEAN CATCH Performed By: #### L 400.0001 ####[facility] [address] [place], [address] EPI,SQUAMOUS 0-5 SEEN Normal 0-[address] [facility] Comment on above: Order Comment: CLEAN CATCH Performed By: #### L 400.0001 ####[facility] [address] [place], [place], [phone] Mucus Ql (Urine sed) 0 SEEN Normal [facility] Comment on above: Order Comment: CLEAN CATCH Performed By: #### L 400.0001 ####[facility] [address] [place], [place], [phone] Urine blood detectionOrdered By: Dennis Strickland on 11-05-2024 Urine Occult Blood 10 /ul High Negative [facility] Urine clarityOrdered By: Roni Strickland on 11-05-2024 Clarity (U) Clear Clear [facility] Urine color determinationOrd ered By: Dennis Strickland on 11-05-2024 Color (U) Yellow Yellow [facility] Urine leukocyte esterase det ection by dipstickOrdered By: Dennis Strickland on 11-05-2024 Leukocyte esterase Test strip Ql (U) Negative Negative [facility] Urine pHOrdered By: Dennis vazquez on 11-05-2024 pH (U) 7.0 [pH] 5.0 - 8.[address] [facility] Urine specific gravity measu rementOrdered By: Dennis Strickland on 11-05-2024 Specific gravity (U) [Rel density] 1.010 1.002-1.[address] [facility] Urobilinogen Ql (U)Ordered B y: Dennis Strickland on 11-05-2024 Urine Urobilinogen Normal mg/dl Normal [facility] White blood cell (WBC) count Ordered By: Dennis Strickland on 11-05-2024 WBC (Bld) [#/Vol] 8.6 10*3/uL 4.4-11.0 [facility] White blood cell countOrdere d By: Dennis Strickland on 11-05-2024 Urine WBC 0-5 SEEN /hpf 0-[address] [facility] aPTT Coag (PPP) [Time]Ordere d By: Dennis Strickland on 11-05-2024 aPTT Coag (Bld) [Time] 27.5 s 24.1-36.2 [facility] XR SHOULDER MINIMUM 2 VIEWS LEFTon 09-13-2024 [...] Date: 09/13/2024 4:03:15 PM Ordering Provider: EUGENIO Vickers [facility] Abdomen/Pelvis without Conto n 07-06-2024 Abdomen/Pelvis without Cont [facility] Imaging Services [address] [place] [address] Abdomen/Pelvis without Cont MR#: [id number] Acct: [id number] Name: WINSTON MARI Rep #: [id number] : 1955 M 69 From: Richard Cortez DO PCP: Dr. Eugenio Mayen DO Status: REG ER Study: Abdomen/Pelvis without Cont Date of Exam: 06/22 03/14 Exam# [id number] Ordering Dr: Abril Velarde DO [id number] STUDY: CT ABDOMEN AND PELVIS WITHOUT CONTRAST [...] 19:44 EDT Reading Location ID and State: [facility] / [place] Tel [phone], Service support , CC: Dr. Eugenio Mayen DO; Dr. Abril Velarde DO Museum Security Chief: Signed Normal [facility] Basic Metabolic Profile (BMP )on 07-06-2024 BUN/CRE 15.3 RATIO Normal 10-[address] [facility] Comment on above: Performed By: #### L 100.0100, L500.2500 ####[facility] [address] [place], [address] CA,Total 9.5 mg/dL Normal 8.5-10.[address] [facility] Comment on above: Performed By: #### L 100.0100, L500.2500 ####[facility] [address] [place], [address] Chloride [Moles/Vol] 103 mmol/L Normal 98-107 [facility] Comment on above: Performed By: #### L 100.0100, L500.2500 ####[facility] [address] [place], [address] CO2 [Moles/Vol] 27.0 mmol/L Normal 21.0-32.[address] [facility] Comment on above: Performed By: #### L 100.0100, L500.2500 ####[facility] [address] [place], [address] Creatinine [Mass/Vol] 1.11 mg/dL Normal 0.70-1.30 [facility] Comment on above: Result Comment: The validity of the calculated GFR GFRAA in patients over 70 years has not been determined. Clinical correlation is essential. Performed By: #### L 100.0100, L500.2500 ####[facility] [address] [place], [address] ECRCL 61.75 ml/min Normal [facility] Comment on above: Performed By: #### L 100.0100, L500.2500 ####[facility] [address] [place], [address] EST GFR - AA 85 mL/min Normal >[address] [facility] Comment on above: Result Comment: Afri can Iraqi GFR Calc Performed By: #### L 100.0100, L500.2500 ####[facility] [address] [place], [address] GAP 6 Normal 5-[address] [facility] Comment on above: Performed By: #### L 100.0100, L500.2500 ####[facility] [address] [place], [address] GFR/1.73 sq M.predicted among non-blacks MDRD (S/P/Bld) [Vol rate/Area] 70 mL/min/{1.73_m2} Normal >[address] [facility] Comment on above: Result Comment: Non- GFR Calc Performed By: #### L 100.0100, L500.2500 ####[facility] [address] [place], [address] Glucose [Mass/Vol] 96 mg/dL Normal 74-106 [facility] Comment on above: Performed By: #### L 100.0100, L500.2500 ####[facility] [address] [place], [address] Potassium [Moles/Vol] 3.7 mmol/L Normal 3.5-5.1 [facility] Comment on above: Performed By: #### L 100.0100, L500.2500 ####[facility] [address] [place], [address] Sodium [Moles/Vol] 136 mmol/L Normal 136-145 [facility] Comment on above: Performed By: #### L 100.0100, L500.2500 ####[facility] [address] [place], [address] Urea nitrogen [Mass/Vol] 17 mg/dL Normal 7-[address] [facility] Comment on above: Performed By: #### L 100.0100, L500.2500 ####[facility] [address] [place], [address] CBC W/Diff, Automatedon 06-22 Absolute Lymph 2.02 X10 3/uL Normal 0.83-4.[address] [facility] Comment on above: Performed By: #### L 100.0100, L500.2500 ####[facility] [address] [place], [address] Absolute Neut 5.4 X10 3/uL Normal 2.0-7.[address] [facility] Comment on above: Performed By: #### L 100.0100, L500.2500 ####[facility] [address] [place], [address] Basophils/100 WBC (Bld) 0.6 % Normal 0-[address] [facility] Comment on above: Performed By: #### L 100.0100, L500.2500 ####[facility] [address] [place], [address] Eosinophils/100 WBC (Bld) 4.4 % Normal 0-[address] [facility] Comment on above: Performed By: #### L 100.0100, L500.2500 ####[facility] [address] [place], [address] Erythrocyte distribution width (RBC) [Ratio] 13.3 % Normal 11.6-14.[address] [facility] Comment on above: Performed By: #### L 100.0100, L500.2500 ####[facility] [address] [place], [address] Hematocrit (Bld) [Volume fraction] 40.1 % Normal 40-[address] [facility] Comment on above: Performed By: #### L 100.0100, L500.2500 ####[facility] [address] [place], [address] Hemoglobin (Bld) [Mass/Vol] 13.1 g/dL Normal 13.0-16.[address] [facility] Comment on above: Performed By: #### L 100.0100, L500.2500 ####[facility] [address] [place], [address] IG% 0.200 Normal 0.0-0.[address] [facility] Comment on above: Result Comment: IG% - Immature Granulocytes (promyelocytes, myelocytes and metamyelocytes) > 1% indicates that a LEFT SHIFT is Present. Performed By: #### L 100.0100, L500.2500 ####[facility] [address] [place], [address] Lymphocytes/100 WBC (Bld) 22.9 % Normal 19-[address] [facility] Comment on above: Performed By: #### L 100.0100, L500.2500 ####[facility] [address] [place], [address] MCH (RBC) [Entitic mass] 29.8 pg Normal 27.0-32.[address] [facility] Comment on above: Performed By: #### L 100.0100, L500.2500 ####[facility] [address] [place], [address] MCHC (RBC) [Mass/Vol] 32.7 g/dL Normal 32-36 [facility] Comment on above: Performed By: #### L 100.0100, L500.2500 ####[facility] [address] [place], [address] MCV (RBC) [Entitic vol] 91.1 fL Normal 80-[address] [facility] Comment on above: Performed By: #### L 100.0100, L500.2500 ####[facility] [address] [place], [address] Monocytes/100 WBC (Bld) 10.5 % High 0-[address] [facility] Comment on above: Performed By: #### L 100.0100, L500.2500 ####[facility] [address] [place], [address] Neutrophils/100 WBC (Bld) 61.4 % Normal 47-[address] [facility] Comment on above: Performed By: #### L 100.0100, L500.2500 ####[facility] [address] [place], [address] Nucleated RBC (Bld) [#/Vol] 0 10*3/uL Normal 0-[address] [facility] Comment on above: Performed By: #### L 100.0100, L500.2500 ####[facility] [address] [place], [address] Platelet mean volume (Bld) [Entitic vol] 8.9 fL Normal 6.2-12.[address] [facility] Comment on above: Performed By: #### L 100.0100, L500.2500 ####[facility] [address] [place], [address] Platelets (Bld) [#/Vol] 337 10*3/uL Normal 150-[address] [facility] Comment on above: Performed By: #### L 100.0100, L500.2500 ####[facility] [address] [place], [address] RBC (Bld) [#/Vol] 4.40 10*6/uL Low 4.6-6.2 [facility] Comment on above: Performed By: #### L 100.0100, L500.2500 ####[facility] [address] [place], [address] RDW SD 44.9 fl High 35.1-43.[address] [facility] Comment on above: Performed By: #### L 100.0100, L500.2500 ####[facility] [address] [place], [address] WBC (Bld) [#/Vol] 8.8 10*3/uL Normal 4.4-11.0 [facility] Comment on above: Performed By: #### L 100.0100, L500.2500 ####[facility] [address] [place], [address] Emergency Department Summary on 07-06-2024 Emergency Department Summary [facility] Medical Records Department [address] [place] [address] Emergency Department Summary 07/06/24 MR#: [id number] Acct: [id number] Name: WINSTON MARI Rep #: [id number] : 1955 69 From: Abril Velarde DO [...] Denies fever. Denies injury to his back. [facility] Medical History Epilepsy Hemorrhoid High cholesterol Sciatica Home Medications ???Medication ???Instructions ???Recorded ???Last Taken ???Type omeprazole 20 mg capsule,delayed 40 mg PO DAILY 03/23/22 Unknown History release gabapentin 300 mg capsule 300 mg PO 4X/DAY 04/02/22 Unknown History hydrocortisone acetate 25 mg 25 mg OK QHS #12 ea 04/27/22 Unknown Rx rectal [...] AdvReac Rash Verified 07/06/24 17:55 hydrocodone (From [place]) AdvReac Upset Verified 07/06/24 17:55 Stomach ibuprofen [...] TM's c (more content not included)... Normal [facility] Urinalysis, Completeon 07-06 EPI,SQUAMOUS 0-5 SEEN Normal 0-[address] [facility] Comment on above: Order Comment: CLEAN CATCH Performed By: #### L 500.2500, L500.3400 #### [facility] [address] [place], [address] BACTERIA 0 SEEN Normal None Seen [facility] Comment on above: Order Comment: CLEAN CATCH Performed By: #### L 500.2500, L500.3400 #### [facility] [address] [place], [address] Mucus Ql (Urine sed) 0 SEEN Normal [facility] Comment on above: Order Comment: CLEAN CATCH Performed By: #### L 500.2500, L500.3400 #### [facility] [address] [place], [address] RBC 0 SEEN Normal 0-[address] [facility] Comment on above: Order Comment: CLEAN CATCH Performed By: #### L 500.2500, L500.3400 #### [facility] [address] [place], [address] WBC 0 SEEN Normal 0-[address] [facility] Comment on above: Order Comment: CLEAN CATCH Performed By: #### L 500.2500, L500.3400 #### [facility] [address] [place], [address] Urine Cultureon 07-02-2024 URC Culture exhibits no growth. Normal [facility] Comment on above: Performed By: #### M 100.2200 ####[facility] [address] [place], [address] Abdomen/Pelvis W IV Cont ONL Yon 07-01-2024 Abdomen/Pelvis W IV Cont ONLY [facility] Imaging Services [address] [place] [address] Abdomen/Pelvis W IV Cont ONLY MR#: [id number] Acct: [id number] Name: WINSTON MARI Rep #: [id number] : 1955 M 69 From: Will Cuellar MD PCP: Dr. Eugenio Mayen, Status: REG ER Study: Abdomen/Pelvis W IV Cont ONLY Date of Exam: Exam# [id number] Ordering Dr: Barrett Leonard DO [id number] STUDY: CT ABDOMEN AND PELVIS WITH CONTRAST [...] Eugenio Mayen, DO; Dr. Barrett Leonard, DO Museum Security Chief: Signed Normal [facility] CBC W/Diff, Automatedon 06-22 Absolute Lymph 1.94 X10 3/uL Normal 0.83-4.[address] [facility] Comment on above: Performed By: #### L 100.0100, L503.6005, L500.4050, L501.2450 ####[facility] [address] [place], [address] Absolute Neut 4.0 X10 3/uL Normal 2.0-7.[address] [facility] Comment on above: Performed By: #### L 100.0100, L503.6005, L500.4050, L501.2450 ####[facility] [address] [place], [address] Basophils/100 WBC (Bld) 1.0 % Normal 0-[address] [facility] Comment on above: Performed By: #### L 100.0100, L503.6005, L500.4050, L501.2450 ####[facility] [address] [place], [address] Eosinophils/100 WBC (Bld) 4.9 % Normal 0-[address] [facility] Comment on above: Performed By: #### L 100.0100, L503.6005, L500.4050, L501.2450 ####[facility] [address] [place], [address] Erythrocyte distribution width (RBC) [Ratio] 13.6 % Normal 11.6-14.[address] [facility] Comment on above: Performed By: #### L 100.0100, L503.6005, L500.4050, L501.2450 ####[facility] [address] [place], [address] Hematocrit (Bld) [Volume fraction] 40.8 % Normal 40-[address] [facility] Comment on above: Performed By: #### L 100.0100, L503.6005, L500.4050, L501.2450 ####[facility] [address] [place], [address] Hemoglobin (Bld) [Mass/Vol] 13.4 g/dL Normal 13.0-16.[address] [facility] Comment on above: Performed By: #### L 100.0100, L503.6005, L500.4050, L501.2450 ####[facility] [address] [place], [address] IG% 0.300 Normal 0.0-0.[address] [facility] Comment on above: Result Comment: IG% - Immature Granulocytes (promyelocytes, myelocytes and metamyelocytes) > 1% indicates that a LEFT SHIFT is Present. Performed By: #### L 100.0100, L503.6005, L500.4050, L501.2450 ####[facility] [address] [place], [address] Lymphocytes/100 WBC (Bld) 28.1 % Normal 19-[address] [facility] Comment on above: Performed By: #### L 100.0100, L503.6005, L500.4050, L501.2450 ####[facility] [address] [place], [address] MCH (RBC) [Entitic mass] 29.9 pg Normal 27.0-32.[address] [facility] Comment on above: Performed By: #### L 100.0100, L503.6005, L500.4050, L501.2450 ####[facility] [address] [place], [address] MCHC (RBC) [Mass/Vol] 32.8 g/dL Normal 32-36 [facility] Comment on above: Performed By: #### L 100.0100, L503.6005, L500.4050, L501.2450 ####[facility] [address] [place], [address] MCV (RBC) [Entitic vol] 91.1 fL Normal 80-[address] [facility] Comment on above: Performed By: #### L 100.0100, L503.6005, L500.4050, L501.2450 ####[facility] [address] [place], [address] Monocytes/100 WBC (Bld) 8.0 % Normal 0-[address] [facility] Comment on above: Performed By: #### L 100.0100, L503.6005, L500.4050, L501.2450 ####[facility] [address] [place], [address] Neutrophils/100 WBC (Bld) 57.7 % Normal 47-[address] [facility] Comment on above: Performed By: #### L 100.0100, L503.6005, L500.4050, L501.2450 ####[facility] [address] [place], [address] Nucleated RBC (Bld) [#/Vol] 1.3 10*3/uL Normal 0-[address] [facility] Comment on above: Performed By: #### L 100.0100, L503.6005, L500.4050, L501.2450 ####[facility] [address] [place], [address] Platelet mean volume (Bld) [Entitic vol] 9.0 fL Normal 6.2-12.[address] [facility] Comment on above: Performed By: #### L 100.0100, L503.6005, L500.4050, L501.2450 ####[facility] [address] [place], [address] Platelets (Bld) [#/Vol] 408 10*3/uL Normal 150-[address] [facility] Comment on above: Performed By: #### L 100.0100, L503.6005, L500.4050, L501.2450 ####[facility] [address] [place], [address] RBC (Bld) [#/Vol] 4.48 10*6/uL Low 4.6-6.2 [facility] Comment on above: Performed By: #### L 100.0100, L503.6005, L500.4050, L501.2450 ####[facility] [address] [place], [address] RDW SD 45.5 fl High 35.1-43.[address] [facility] Comment on above: Performed By: #### L 100.0100, L503.6005, L500.4050, L501.2450 ####[facility] [address] [place], [address] WBC (Bld) [#/Vol] 6.9 10*3/uL Normal 4.4-11.0 [facility] Comment on above: Performed By: #### L 100.0100, L503.6005, L500.4050, L501.2450 ####[facility] [address] [place], [address] Comprehensive Metabolic Prof ilon 07-01-2024 Albumin [Mass/Vol] 4.2 g/dL Normal 3.2-5.0 [facility] Comment on above: Performed By: #### L 100.0100, L503.6005, L500.4050, L501.2450 ####[facility] [address] [place], [address] Albumin/Globulin [Mass ratio] 1.0 {ratio} Normal 0.9-2.[address] [facility] Comment on above: Performed By: #### L 100.0100, L503.6005, L500.4050, L501.2450 ####[facility] [address] [place], [address] ALK P 90 U/L Normal 45-[address] [facility] Comment on above: Performed By: #### L 100.0100, L503.6005, L500.4050, L501.2450 ####[facility] [address] [place], [address] ALT [Catalytic activity/Vol] 23 U/L Normal 16-[address] [facility] Comment on above: Performed By: #### L 100.0100, L503.6005, L500.4050, L501.2450 ####[facility] [address] [place], [address] AST [Catalytic activity/Vol] 14 U/L Low 15-[address] [facility] Comment on above: Performed By: #### L 100.0100, L503.6005, L500.4050, L501.2450 ####[facility] [address] [place], [address] Bilirubin [Mass/Vol] 0.80 mg/dL Normal 0.20-1.00 [facility] Comment on above: Result Comment: For patients on eltrombopag therapy, use of Dimension [place] TBIL is not recommended. Performed By: #### L 100.0100, L503.6005, L500.4050, L501.2450 ####[facility] [address] [place], [address] BUN/CRE 13.4 RATIO Normal 10-[address] [facility] Comment on above: Performed By: #### L 100.0100, L503.6005, L500.4050, L501.2450 ####[facility] [address] [place], [address] CA,Total 9.4 mg/dL Normal 8.5-10.[address] [facility] Comment on above: Performed By: #### L 100.0100, L503.6005, L500.4050, L501.2450 ####[facility] [address] [place], [address] Chloride [Moles/Vol] 105 mmol/L Normal 98-107 [facility] Comment on above: Performed By: #### L 100.0100, L503.6005, L500.4050, L501.2450 ####[facility] [address] [place], [address] CO2 [Moles/Vol] 29.0 mmol/L Normal 21.0-32.[address] [facility] Comment on above: Performed By: #### L 100.0100, L503.6005, L500.4050, L501.2450 ####[facility] [address] [place], [address] Creatinine [Mass/Vol] 1.19 mg/dL Normal 0.70-1.30 [facility] Comment on above: Result Comment: The validity of the calculated GFR GFRAA in patients over 70 years has not been determined. Clinical correlation is essential. Performed By: #### L 100.0100, L503.6005, L500.4050, L501.2450 ####[facility] [address] [place], [address] ECRCL 59.20 ml/min Normal [facility] Comment on above: Performed By: #### L 100.0100, L503.6005, L500.4050, L501.2450 ####[facility] [address] [place], [address] EST GFR - AA 78 mL/min Normal >[address] [facility] Comment on above: Result Comment: Afri can Iraqi GFR Calc Performed By: #### L 100.0100, L503.6005, L500.4050, L501.2450 ####[facility] [address] [place], [address] GAP 5 Normal 5-[address] [facility] Comment on above: Performed By: #### L 100.0100, L503.6005, L500.4050, L501.2450 ####[facility] [address] [place], [address] GFR/1.73 sq M.predicted among non-blacks MDRD (S/P/Bld) [Vol rate/Area] 65 mL/min/{1.73_m2} Normal >[address] [facility] Comment on above: Result Comment: Non- GFR Calc Performed By: #### L 100.0100, L503.6005, L500.4050, L501.2450 ####[facility] [address] [place], [address] Globulin (S) [Mass/Vol] 4.1 g/dL Normal 2.2-4.[address] [facility] Comment on above: Performed By: #### L 100.0100, L503.6005, L500.4050, L501.2450 ####[facility] [address] [place], [address] Glucose [Mass/Vol] 95 mg/dL Normal 74-106 [facility] Comment on above: Performed By: #### L 100.0100, L503.6005, L500.4050, L501.2450 ####[facility] [address] [place], [address] Potassium [Moles/Vol] 3.9 mmol/L Normal 3.5-5.1 [facility] Comment on above: Performed By: #### L 100.0100, L503.6005, L500.4050, L501.2450 ####[facility] [address] [place], [address] Sodium [Moles/Vol] 139 mmol/L Normal 136-145 [facility] Comment on above: Performed By: #### L 100.0100, L503.6005, L500.4050, L501.2450 ####[facility] [address] [place], [address] T PROT 8.3 g/dL High 6.4-8.[address] [facility] Comment on above: Performed By: #### L 100.0100, L503.6005, L500.4050, L501.2450 ####[facility] [address] [place], [address] Urea nitrogen [Mass/Vol] 16 mg/dL Normal 7-[address] [facility] Comment on above: Performed By: #### L 100.0100, L503.6005, L500.4050, L501.2450 ####[facility] [address] [place], [address] Emergency Department Summary on 07-01-2024 Emergency Department Summary [facility] Medical Records Department [address] [place] [address] Emergency Department Summary 07/01/24 MR#: [id number] Acct: [id number] Name: WINSTON MARI Rep #: [id number] : [id number] 69 From: Barrett Leonard DO [...] History hydrocortisone acetate 25 mg 25 mg OK QHS #12 ea 04/27/22 Unknown Rx rectal [...] AdvReac Rash Verified 07/01/24 19:41 hydrocodone (From [place]) AdvReac Upset Verified 07/01/24 19:41 Stomach ibuprofen [...] of the (more content not included)... Normal [facility] Lactic Acidon 07-01-2024 Lactate [Moles/Vol] 0.8 mmol/L Normal 0.4-1.9 [facility] Comment on above: Order Comment: Y Performed By: #### L 100.0100, L503.6005, L500.4050, L501.2450 ####[facility] [address] [place], [place], [id number] Lipaseon 07-01-2024 Lipase [Catalytic activity/Vol] 29 U/L Normal 13-[address] [facility] Comment on above: Result Comment: Plea se note: LIPASE revised reference range effective 23. New Lipase methodology. Expected to produce lower values than the previous assay method. NEW Reference Range: 13 - 75 U/L Performed By: #### L 100.0100, L503.6005, L500.4050, L501.2450 ####[facility] [address] [place], [place], [address] Urinalysis, Completeon 07-01 BACTERIA 2+ /hpf Normal None Seen [facility] Comment on above: Order Comment: CLEAN CATCH Performed By: #### L 500.2500, L500.3400 #### [facility] [address] [place], [address] WBC >100 SEEN Normal 0-[address] [facility] Comment on above: Order Comment: CLEAN CATCH Performed By: #### L 500.2500, L500.3400 #### [facility] [address] [place], [address] BILIRUBIN URINE Negative Normal Negative [facility] Comment on above: Order Comment: CLEAN CATCH Performed By: #### L 500.2500, L500.3400 #### [facility] [address] [place], [address] Clarity (U) Sl. Cloudy Normal Clear [facility] Comment on above: Order Comment: CLEAN CATCH Performed By: #### L 500.2500, L500.3400 #### [facility] [address] [place], [address] Color (U) Yellow Normal Yellow [facility] Comment on above: Order Comment: CLEAN CATCH Performed By: #### L 500.2500, L500.3400 #### [facility] [address] [place], [address] GLUCOSE, UR Normal Normal Normal [facility] Comment on above: Order Comment: CLEAN CATCH Performed By: #### L 500.2500, L500.3400 #### [facility] [address] [place], [address] KETONE UR Negative Normal Negative [facility] Comment on above: Order Comment: CLEAN CATCH Performed By: #### L 500.2500, L500.3400 #### [facility] [address] [place], [address] LEUK ESTERASE 500 /ul Abnormal Negative [facility] Comment on above: Order Comment: CLEAN CATCH Performed By: #### L 500.2500, L500.3400 #### [facility] [address] [place], [address] Nitrite Ql (U) Negative Normal Negative [facility] Comment on above: Order Comment: CLEAN CATCH Performed By: #### L 500.2500, L500.3400 #### [facility] [address] [place], [address] OCCULT BLOOD-UR Negative Normal Negative [facility] Comment on above: Order Comment: CLEAN CATCH Performed By: #### L 500.2500, L500.3400 #### [facility] [address] [place], [address] pH UR 7.0 Normal 5.0 - 8.[address] [facility] Comment on above: Order Comment: CLEAN CATCH Performed By: #### L 500.2500, L500.3400 #### [facility] [address] [place], [address] PROT DIPSTX 15 mg/dl Abnormal Negative [facility] Comment on above: Order Comment: CLEAN CATCH Performed By: #### L 500.2500, L500.3400 #### [facility] [address] [place], [address] SP.GR. DIPSTX 1.005 Normal 1.002-1.[address] [facility] Comment on above: Order Comment: CLEAN CATCH Performed By: #### L 500.2500, L500.3400 #### [facility] [address] [place], [address] UROBILI Normal Normal Normal [facility] Comment on above: Order Comment: CLEAN CATCH Performed By: #### L 500.2500, L500.3400 #### [facility] [address] [place], [address] EPI,SQUAMOUS 0 SEEN Normal 0-[address] [facility] Comment on above: Order Comment: CLEAN CATCH Performed By: #### L 500.2500, L500.3400 #### [facility] [address] [place], [address] Mucus Ql (Urine sed) 0 SEEN Normal [facility] Comment on above: Order Comment: CLEAN CATCH Performed By: #### L 500.2500, L500.3400 #### [facility] [address] [place], [address] RBC 0 SEEN Normal 0-[address] [facility] Comment on above: Order Comment: CLEAN CATCH Performed By: #### L 500.2500, L500.3400 #### [facility] [address] [place], [address] BACTERIA Normal None Seen [facility] Comment on above: Order Comment: CLEAN CATCH Result Comment: PT D ISCHARGED Performed By: #### L 400.0001 ####[facility] [address] [place], [address] BILIRUBIN URINE Normal Negative [facility] Comment on above: Order Comment: CLEAN CATCH Result Comment: PT D ISCHARGED Performed By: #### L 400.0001 ####[facility] [address] [place], [address] Clarity (U) Normal Clear [facility] Comment on above: Order Comment: CLEAN CATCH Result Comment: PT D ISCHARGED Performed By: #### L 400.0001 ####[facility] [address] [place], [address] Color (U) Normal Yellow [facility] Comment on above: Order Comment: CLEAN CATCH Result Comment: PT D ISCHARGED Performed By: #### L 400.0001 ####[facility] [address] [place], [address] EPI,SQUAMOUS Normal 0-[address] [facility] Comment on above: Order Comment: CLEAN CATCH Result Comment: PT D ISCHARGED Performed By: #### L 400.0001 ####[facility] [address] [place], [address] GLUCOSE, UR Normal Normal [facility] Comment on above: Order Comment: CLEAN CATCH Result Comment: PT D ISCHARGED Performed By: #### L 400.0001 ####[facility] [address] [place], [address] KETONE UR Normal Negative [facility] Comment on above: Order Comment: CLEAN CATCH Result Comment: PT D ISCHARGED Performed By: #### L 400.0001 ####[facility] [address] [place], [address] LEUK ESTERASE Normal Negative [facility] Comment on above: Order Comment: CLEAN CATCH Result Comment: PT D ISCHARGED Performed By: #### L 400.0001 ####[facility] [address] [place], [address] Mucus Ql (Urine sed) Normal [facility] Comment on above: Order Comment: CLEAN CATCH Result Comment: PT D ISCHARGED Performed By: #### L 400.0001 ####[facility] [address] [place] [address] Nitrite Ql (U) Normal Negative [facility] Comment on above: Order Comment: CLEAN CATCH Result Comment: PT D ISCHARGED Performed By: #### L 400.0001 ####[facility] [address] [place], [address] OCCULT BLOOD-UR Normal Negative [facility] Comment on above: Order Comment: CLEAN CATCH Result Comment: PT D ISCHARGED Performed By: #### L 400.0001 ####[facility] [address] [place], [address] pH UR Normal 5.0 - 8.[address] [facility] Comment on above: Order Comment: CLEAN CATCH Result Comment: PT D ISCHARGED Performed By: #### L 400.0001 ####[facility] [address] [place], [address] PROT DIPSTX Normal Negative [facility] Comment on above: Order Comment: CLEAN CATCH Result Comment: PT D ISCHARGED Performed By: #### L 400.0001 ####[facility] [address] [place], [address] RBC Normal 0-[address] [facility] Comment on above: Order Comment: CLEAN CATCH Result Comment: PT D ISCHARGED Performed By: #### L 400.0001 ####[facility] [address] [place], [address] SP.GR. DIPSTX Normal 1.002-1.[address] [facility] Comment on above: Order Comment: CLEAN CATCH Result Comment: PT D ISCHARGED Performed By: #### L 400.0001 ####[facility] [address] [place], [address] UR Preservative Normal [facility] Comment on above: Order Comment: CLEAN CATCH Result Comment: PT D ISCHARGED Performed By: #### L 400.0001 ####[facility] [address] [place], [address] UROBILI Normal Normal [facility] Comment on above: Order Comment: CLEAN CATCH Result Comment: PT D ISCHARGED Performed By: #### L 400.0001 ####[facility] [address] [place], [address] WBC Normal 0-[address] [facility] Comment on above: Order Comment: CLEAN CATCH Result Comment: PT D ISCHARGED Performed By: #### L 400.0001 ####[facility] [address] [place], [address] MUMPSon 12-11-2023 Mumps Ab Positive Normal [facility] ([place]) Comment on above: Result Comment: INTE RPRETATION [...] CMP, LIPID, GFR, ANEU, PSA, FERR #### Angelica [place] [address] [place], [place] [address] #### HCV1, VARIS, MUMP, RUBEO, RUBIS #### [place] [address] RUBEOon 12-11-2023 Rubeola IgG Ab Positive [facility] ([place]) Comment on above: Result Comment: INTE RPRETATION [...] GFR, ANEU, PSA, FERR #### [place] [address] #### HCV1, VARIS, MUMP, RUBEO, RUBIS #### [place] [address] VARISon 12-11-[address] Positive [facility] ([place]) Comment on above: Result Comment: INTE RPRETATION [...] GFR, ANEU, PSA, FERR #### [place] [address] #### HCV1, VARIS, MUMP, RUBEO, RUBIS #### [place] [address] CT THORAX W/O CONTRASTon CT THORAX W/O [...] Date: 12/08/2023 2:59:30 PM Ordering Provider: EUGENIO Vickers [facility] ([place]) HCVon 12-08-2023 Hep C Ab Non-Reactive Normal Non-Reacti ve [facility] ([place]) Comment on above: Performed By: #### M G, CBC, FES, VIDH, ADIFF, CMP, LIPID, GFR, ANEU, PSA, FERR #### Angelica [place] [address] [place], [place] [address] #### HCV1, VARIS, MUMP, RUBEO, RUBIS #### [address] [address] Hep C Ab Int Normal [facility] ([place]) Comment on above: Result Comment: Nonr eactive: [...] GFR, ANEU, PSA, FERR #### [place] [address] #### HCV1, VARIS, MUMP, RUBEO, RUBIS #### [place] [address] RUBISon 12-08-[address] Positive Normal Positive [facility] ([place]) Comment on above: Result Comment: This immune [...] GFR, ANEU, PSA, FERR #### [place] [address] #### HCV1, VARIS, MUMP, RUBEO, RUBIS #### [place] [address] .Auto Diffon 12-07-2023 Basophil, Absolute 0.1 10 3/mcL Normal 0.0-0.2 formerly [facility] ([place]) Comment on above: Performed By: #### M G, CBC, FES, VIDH, ADIFF, CMP, LIPID, GFR, ANEU, PSA, FERR #### [address] [address] #### HCV1, VARIS, MUMP, RUBEO, RUBIS #### [address] [address] Basophils/100 WBC (Bld) 1.1 % Normal 0.0-2.5 [facility] ([place]) Comment on above: Performed By: #### M G, CBC, FES, VIDH, ADIFF, CMP, LIPID, GFR, ANEU, PSA, FERR #### [address] [address] #### HCV1, VARIS, MUMP, RUBEO, RUBIS #### [address] [address] Eosinophil, Absolute 0.4 10 3/mcL Normal 0.0-0.4 [facility] ([place]) Comment on above: Performed By: #### M G, CBC, FES, VIDH, ADIFF, CMP, LIPID, GFR, ANEU, PSA, FERR #### [address] [address] #### HCV1, VARIS, MUMP, RUBEO, RUBIS #### [address] [address] Eosinophils/100 WBC (Bld) 7.0 % Normal 0.0-7.0 [facility] ([place]) Comment on above: Performed By: #### M G, CBC, FES, VIDH, ADIFF, CMP, LIPID, GFR, ANEU, PSA, FERR #### [address] [address] #### HCV1, VARIS, MUMP, RUBEO, RUBIS #### [address] [address] Lymphocyte, Absolute 1.6 10 3/mcL Normal 0.8-3.9 [facility] ([place]) Comment on above: Performed By: #### M G, CBC, FES, VIDH, ADIFF, CMP, LIPID, GFR, ANEU, PSA, FERR #### [address] [address] #### HCV1, VARIS, MUMP, RUBEO, RUBIS #### [address] [address] Lymphocytes/100 WBC (Bld) 25.1 % Normal 10.0-50.0 [facility] ([place]) Comment on above: Performed By: #### M G, CBC, FES, VIDH, ADIFF, CMP, LIPID, GFR, ANEU, PSA, FERR #### [address] [address] #### HCV1, VARIS, MUMP, RUBEO, RUBIS #### [address] [address] Monocyte, Absolute 0.6 10 3/mcL Normal 0.2-1.0 formerly [facility] ([place]) Comment on above: Performed By: #### M G, CBC, FES, VIDH, ADIFF, CMP, LIPID, GFR, ANEU, PSA, FERR #### [address] [address] #### HCV1, VARIS, MUMP, RUBEO, RUBIS #### [address] [address] Monocytes/100 WBC (Bld) 8.9 % Normal 1.7-13.0 [facility] ([place]) Comment on above: Performed By: #### M G, CBC, FES, VIDH, ADIFF, CMP, LIPID, GFR, ANEU, PSA, FERR #### [address] [address] #### HCV1, VARIS, MUMP, RUBEO, RUBIS #### [address] [address] Neutrophils/100 WBC (Bld) 57.9 % Normal 37.0-80.0 [facility] ([place]) Comment on above: Performed By: #### M G, CBC, FES, VIDH, ADIFF, CMP, LIPID, GFR, ANEU, PSA, FERR #### [address] [address] #### HCV1, VARIS, MUMP, RUBEO, RUBIS #### [address] [address] .GFRon 12-07-2023 GFR 88 ml/min/1.73sqm Normal [facility] ([place]) Comment on above: Result Comment: GFR Population [...] LIPID, GFR, ANEU, PSA, FERR #### [address] [address] #### HCV1, VARIS, MUMP, RUBEO, RUBIS #### [place] [address] GFR Non- 73 ml/min/1.73sqm Normal [facility] ([place]) Comment on above: Result Comment: GFR Population [...] LIPID, GFR, ANEU, PSA, FERR #### [address] [address] #### HCV1, VARIS, MUMP, RUBEO, RUBIS #### [place] [address] .NEUABSon 12-07-2023 Neutrophil, Absolute 3.7 10 3/mcL Normal 2.9-6.2 [facility] ([place]) Comment on above: Performed By: #### M G, CBC, FES, VIDH, ADIFF, CMP, LIPID, GFR, ANEU, PSA, FERR #### [place] [address] #### HCV1, VARIS, MUMP, RUBEO, RUBIS #### [place] [address] CBCon 12-07-2023 Erythrocyte distribution width (RBC) [Ratio] 14.1 % Normal 11.5-14.5 [facility] ([place]) Comment on above: Performed By: #### M G, CBC, FES, VIDH, ADIFF, CMP, LIPID, GFR, ANEU, PSA, FERR #### [place] [address] #### HCV1, VARIS, MUMP, RUBEO, RUBIS #### [place] [address] Hematocrit (Bld) [Volume fraction] 37.0 % Low 42.0-52.0 [facility] ([place]) Comment on above: Performed By: #### M G, CBC, FES, VIDH, ADIFF, CMP, LIPID, GFR, ANEU, PSA, FERR #### [place] [address] #### HCV1, VARIS, MUMP, RUBEO, RUBIS #### [place] [address] Hgb 12.9 G/dL Low 14.0-18.0 [facility] ([place]) Comment on above: Performed By: #### M G, CBC, FES, VIDH, ADIFF, CMP, LIPID, GFR, ANEU, PSA, FERR #### [place] [address] #### HCV1, VARIS, MUMP, RUBEO, RUBIS #### [address] [address] MCH (RBC) [Entitic mass] 31.2 pg Normal 27.0-31.2 [facility] ([place]) Comment on above: Performed By: #### M G, CBC, FES, VIDH, ADIFF, CMP, LIPID, GFR, ANEU, PSA, FERR #### [place] [address] #### HCV1, VARIS, MUMP, RUBEO, RUBIS #### [address] [address] MCHC 34.8 G/dL Normal 31.8-35.4 [facility] ([place]) Comment on above: Performed By: #### M G, CBC, FES, VIDH, ADIFF, CMP, LIPID, GFR, ANEU, PSA, FERR #### [place] [address] #### HCV1, VARIS, MUMP, RUBEO, RUBIS #### [address] [address] MCV (RBC) [Entitic vol] 89.5 fL Normal 80.0-94.0 [facility] ([place] Comment on above: Performed By: #### M G, CBC, FES, VIDH, ADIFF, CMP, LIPID, GFR, ANEU, PSA, FERR #### [place] [address] #### HCV1, VARIS, MUMP, RUBEO, RUBIS #### [address] [address] Platelet 427 10 3/mcL High 130-400 [facility] ([place]) Comment on above: Performed By: #### M G, CBC, FES, VIDH, ADIFF, CMP, LIPID, GFR, ANEU, PSA, FERR #### [address] [address] #### HCV1, VARIS, MUMP, RUBEO, RUBIS #### [address] [address] Platelet mean volume (Bld) [Entitic vol] 6.8 fL Low 7.4-10.4 [facility] ([place]) Comment on above: Performed By: #### M G, CBC, FES, VIDH, ADIFF, CMP, LIPID, GFR, ANEU, PSA, FERR #### [address] [address] #### HCV1, VARIS, MUMP, RUBEO, RUBIS #### [address] [address] RBC 4.14 10 6/mcL Normal 4.04-6.13 [facility] ([place]) Comment on above: Performed By: #### M G, CBC, FES, VIDH, ADIFF, CMP, LIPID, GFR, ANEU, PSA, FERR #### [address] [address] #### HCV1, VARIS, MUMP, RUBEO, RUBIS #### [place] [address] WBC 6.3 10 3/mcL Normal 4.6-10.8 [facility] ([place]) Comment on above: Performed By: #### M G, CBC, FES, VIDH, ADIFF, CMP, LIPID, GFR, ANEU, PSA, FERR #### [address] [address] #### HCV1, VARIS, MUMP, RUBEO, RUBIS #### [place] [address] CMPon 12-07-2023 Albumin Level 3.8 G/dL Normal 3.4-4.8 [facility] ([place]) Comment on above: Performed By: #### M G, CBC, FES, VIDH, ADIFF, CMP, LIPID, GFR, ANEU, PSA, FERR #### [address] [address] #### HCV1, VARIS, MUMP, RUBEO, RUBIS #### [place] [address] Albumin/Globulin [Mass ratio] 1.1 {ratio} Normal 1.1-2.5 [facility] ([place]) Comment on above: Performed By: #### M G, CBC, FES, VIDH, ADIFF, CMP, LIPID, GFR, ANEU, PSA, FERR #### [address] [address] #### HCV1, VARIS, MUMP, RUBEO, RUBIS #### [address] [address] ALP [Catalytic activity/Vol] 91 U/L Normal 40-135 [facility] ([place]) Comment on above: Performed By: #### M G, CBC, FES, VIDH, ADIFF, CMP, LIPID, GFR, ANEU, PSA, FERR #### [place] [address] #### HCV1, VARIS, MUMP, RUBEO, RUBIS #### [address] [address] ALT [Catalytic activity/Vol] 22 U/L Normal 16-63 [facility] ([place]) Comment on above: Performed By: #### M G, CBC, FES, VIDH, ADIFF, CMP, LIPID, GFR, ANEU, PSA, FERR #### [place] [address] #### HCV1, VARIS, MUMP, RUBEO, RUBIS #### [address] [address] AST [Catalytic activity/Vol] 12 U/L Normal 10-40 [facility] ([place]) Comment on above: Performed By: #### M G, CBC, FES, VIDH, ADIFF, CMP, LIPID, GFR, ANEU, PSA, FERR #### [place] [address] #### HCV1, VARIS, MUMP, RUBEO, RUBIS #### [address] [address] Bili Total 0.6 mg/dL Normal 0.2-1.0 [facility] ([place]) Comment on above: Result Comment: Use of this assay is not recommended for patients undergoing treatment with eltrombopag due to the potential for falsely elevated results. Performed By: #### M G, CBC, FES, VIDH, ADIFF, CMP, LIPID, GFR, ANEU, PSA, FERR #### [place] [address] #### HCV1, VARIS, MUMP, RUBEO, RUBIS #### [place] [id number] BUN/Creatinine Ratio 16 ratio Normal 7-27 [facility] ([place]) Comment on above: Performed By: #### M G, CBC, FES, VIDH, ADIFF, CMP, LIPID, GFR, ANEU, PSA, FERR #### [place] [address] #### HCV1, VARIS, MUMP, RUBEO, RUBIS #### [place] [address] Calcium [Mass/Vol] 9.0 mg/dL Normal 8.4-10.2 [facility] ([place]) Comment on above: Performed By: #### M G, CBC, FES, VIDH, ADIFF, CMP, LIPID, GFR, ANEU, PSA, FERR #### [place] [address] #### HCV1, VARIS, MUMP, RUBEO, RUBIS #### [address] [address] Chloride [Moles/Vol] 104 mmol/L Normal 98-107 [facility] ([place]) Comment on above: Performed By: #### M G, CBC, FES, VIDH, ADIFF, CMP, LIPID, GFR, ANEU, PSA, FERR #### [place] [address] #### HCV1, VARIS, MUMP, RUBEO, RUBIS #### [address] [address] CO2 [Moles/Vol] 30 mmol/L Normal 23-31 [facility] ([place]) Comment on above: Performed By: #### M G, CBC, FES, VIDH, ADIFF, CMP, LIPID, GFR, ANEU, PSA, FERR #### [address] [address] #### HCV1, VARIS, MUMP, RUBEO, RUBIS #### [address] [address] Creatinine [Mass/Vol] 1.02 mg/dL Normal 0.70-1.30 [facility] ([place]) Comment on above: Performed By: #### M G, CBC, FES, VIDH, ADIFF, CMP, LIPID, GFR, ANEU, PSA, FERR #### [address] [address] #### HCV1, VARIS, MUMP, RUBEO, RUBIS #### [address] [address] Electrolyte Balance 6.0 mEq/L Normal 4.0-15.0 [facility] ([place]) Comment on above: Performed By: #### M G, CBC, FES, VIDH, ADIFF, CMP, LIPID, GFR, ANEU, PSA, FERR #### [address] [address] #### HCV1, VARIS, MUMP, RUBEO, RUBIS #### [address] [address] Globulin 3.5 G/dL Normal [facility] ([place]) Comment on above: Performed By: #### M G, CBC, FES, VIDH, ADIFF, CMP, LIPID, GFR, ANEU, PSA, FERR #### [address] [address] #### HCV1, VARIS, MUMP, RUBEO, RUBIS #### [address] [address] Glucose [Mass/Vol] 82 mg/dL Normal 80-115 [facility] ([place]) Comment on above: Performed By: #### M G, CBC, FES, VIDH, ADIFF, CMP, LIPID, GFR, ANEU, PSA, FERR #### [address] [address] #### HCV1, VARIS, MUMP, RUBEO, RUBIS #### [address] [address] Potassium [Moles/Vol] 4.8 mmol/L Normal 3.5-5.1 [facility] ([place]) Comment on above: Performed By: #### M G, CBC, FES, VIDH, ADIFF, CMP, LIPID, GFR, ANEU, PSA, FERR #### [address] [address] #### HCV1, VARIS, MUMP, RUBEO, RUBIS #### [address] [address] Sodium [Moles/Vol] 140 mmol/L Normal 136-145 [facility] ([place]) Comment on above: Performed By: #### M G, CBC, FES, VIDH, ADIFF, CMP, LIPID, GFR, ANEU, PSA, FERR #### [address] [address] #### HCV1, VARIS, MUMP, RUBEO, RUBIS #### [address] [address] Total Protein 7.3 G/dL Normal 6.4-8.2 [facility] ([place]) Comment on above: Performed By: #### M G, CBC, FES, VIDH, ADIFF, CMP, LIPID, GFR, ANEU, PSA, FERR #### [address] [address] #### HCV1, VARIS, MUMP, RUBEO, RUBIS #### [address] [address] Urea nitrogen [Mass/Vol] 16 mg/dL Normal 7-18 [facility] ([place]) Comment on above: Performed By: #### M G, CBC, FES, VIDH, ADIFF, CMP, LIPID, GFR, ANEU, PSA, FERR #### [place] [address] #### HCV1, VARIS, MUMP, RUBEO, RUBIS #### [place] [address] Sina 12-07-2023 Ferritin [Mass/Vol] 83.0 ng/mL Normal 26.0-388.0 [facility] ([place]) Comment on above: Performed By: #### M G, CBC, FES, VIDH, ADIFF, CMP, LIPID, GFR, ANEU, PSA, FERR #### [place] [address] #### HCV1, VARIS, MUMP, RUBEO, RUBIS #### [place] [address] FESon 12-07-2023 Iron [Mass/Vol] 92 ug/dL Normal 65-175 [facility] ([place]) Comment on above: Performed By: #### M G, CBC, FES, VIDH, ADIFF, CMP, LIPID, GFR, ANEU, PSA, FERR #### [place] [address] #### HCV1, VARIS, MUMP, RUBEO, RUBIS #### [place] [address] Iron Sat 26 % Normal [facility] ([place]) Comment on above: Performed By: #### M G, CBC, FES, VIDH, ADIFF, CMP, LIPID, GFR, ANEU, PSA, FERR #### [place] [address] #### HCV1, VARIS, MUMP, RUBEO, RUBIS #### [place] [address] TIBC 359 mcg/dL Normal 250-450 [facility] ([place]) Comment on above: Performed By: #### M G, CBC, FES, VIDH, ADIFF, CMP, LIPID, GFR, ANEU, PSA, FERR #### [place] [address] #### HCV1, VARIS, MUMP, RUBEO, RUBIS #### [place] [address] LABORATORYOrdered By: SYSTEM SYSTEM on 12-07-2023 25-hydroxyvitamin [...] 12-07-2023 Cholesterol [Mass/Vol] 122 mg/dL Normal 0-200 [facility] ([place]) Comment on above: Result Comment: Chol esterol Reference Interval: Less than 200 Desirable 200-239 Borderline high risk 240 and above High risk Performed By: #### M G, CBC, FES, VIDH, ADIFF, CMP, LIPID, GFR, ANEU, PSA, FERR #### [place] [address] #### HCV1, VARIS, MUMP, RUBEO, RUBIS #### [address] [address] Cholesterol in HDL [Mass/Vol] 37 mg/dL Low 40-60 [facility] ([place]) Comment on above: Performed By: #### M G, CBC, FES, VIDH, ADIFF, CMP, LIPID, GFR, ANEU, PSA, FERR #### [address] [address] #### HCV1, VARIS, MUMP, RUBEO, RUBIS #### [address] [address] Cholesterol in LDL [Mass/Vol] 67 mg/dL Normal 0-130 [facility] ([place]) Comment on above: Performed By: #### M G, CBC, FES, VIDH, ADIFF, CMP, LIPID, GFR, ANEU, PSA, FERR #### [address] [address] #### HCV1, VARIS, MUMP, RUBEO, RUBIS #### [address] [address] Triglyceride [Mass/Vol] 92 mg/dL Normal 0-150 [facility] ([place]) Comment on above: Result Comment: Trig lyceride Reference Interval: Less than 150 Normal 150-199 Borderline high risk 200-499 High risk 500 or higher Very high risk Performed By: #### M G, CBC, FES, VIDH, ADIFF, CMP, LIPID, GFR, ANEU, PSA, FERR #### [place] [address] #### HCV1, VARIS, MUMP, RUBEO, RUBIS #### [address] [address] MGon 12-07-2023 Magnesium [Mass/Vol] 2.2 mg/dL Normal 1.8-2.4 [facility] ([place]) Comment on above: Performed By: #### M G, CBC, FES, VIDH, ADIFF, CMP, LIPID, GFR, ANEU, PSA, FERR #### [place] [id number] #### HCV1, VARIS, MUMP, RUBEO, RUBIS #### [address] [address] PSAon 12-07-2023 Prostate Specific Antigen 1.79 ng/mL Normal 0.00-4.00 [facility] ([place]) Comment on above: Performed By: #### M G, CBC, FES, VIDH, ADIFF, CMP, LIPID, GFR, ANEU, PSA, FERR #### [address] [address] #### HCV1, CHALINO EDWARDS RUBEO, RUBIS #### [address] [address] VIDHon 12-07-2023 Vit. D 25-Hydroxy 34.6 ng/mL Normal [facility] ([place]) Comment on above: Result Comment: Inte rpretive Values Based on Total 25(OH) Vitamin D: Deficient <20 ng/mL Insufficient 20 - <30 ng/mL Sufficient 30-100 ng/mL Performed By: #### M G, CBC, FES, VIDH, ADIFF, CMP, LIPID, GFR, ANEU, PSA, FERR #### [address] [address] #### HCV1, CHALINO EDWARDS RUBEO, RUBIS #### [address] [address] CNPNon 11-19-2023 CNPN Telephone (CHANTEL) ----- WINSTON MARI ([id number]) 1955 Prashant Date Time Provider Department 11/19/23 HAMILTON AGARWAL [...] these medications. Dr Mayen's direct number is [phone]- if you could possibly call and speak with him directly per his request. Monica Gross RN November 19, 2023 1:47 PM Hamilton Agarwal MD 11/19/2023 5:10 PM Signed I did call Dr. Mayen and explained to him that due to the fact that I have inherited several 100s of patients on chronic narcotics from my partner who left to go to [place], I cannot take on any additional new [...] 02/11/2023 Closed compression fracture of L2 vertebra ([facility]*02/12/2023 Closed compression fracture of L4 vertebra ([facility]*02/12/2023 Encounter Status:Closed by MONICA GROSS on 11/20/23 [facility] Brian 08-22-2023 CHEN Office Visit (CHANTEL ) ----- WINSTON MARI ([id number]) 1955 M Date Time Provider Department 08/22/23 [...] times a day from Dr. Mayen in [place]. As above, note from Dr. Almonte indicates [...] past in at a pain center in [place]. Patient indicates he decided against kyphoplasty. He is not following up with neurosurgery. Patient absolutely does not want any spinal injections again. He has agreed to try a TENS unit. There is a new TENS unit technology from a company called [employer]. This was prescribed for him. Gave him [...] 30 days. (more content not included)... Normal [facility] CT THORAX W/O CONTRASTon CT THORAX W/O [...] 08/14/2023 8:37:49 AM Ordering Provider: EUGENIO Vickers [facility] ([place]) Olga 05-23-2023 [facility] Telephone (NEAGCLM) ----- WINSTON MARI ([id number]) 1955 M Date Time Provider Department 05/23/23 PRO ALMONTELM During your visit today, we recorded the [...] Fully Assessed Reason for Visit: Patient Question [6008] Prescriptions as of 05/23/2023 - cholecalciferol (VITAMIN [...] 02/11/2023 Closed compression fracture of L2 vertebra ([facility]*02/12/2023 Closed compression fracture of L4 vertebra ([facility]*02/12/2023 Encounter Status:Closed by DONNA PHILLIP on 05/23/23 [facility] 05-15-2023 CNPN Telephone (NEAGCLM) ----- WINSTON MARI ([id number]) 1955 M Date Time Provider Department 05/15/23 PRO ALMONTE NEDARYLM During your visit today, we recorded the [...] RN - Fully Assessed Reason for Visit: [employer] - Other [3602] Cmt: Up coming surgery [...] 02/11/2023 Closed compression fracture of L2 vertebra ([facility]*02/12/2023 Closed compression fracture of L4 vertebra ([facility]*02/12/2023 Encounter Status:Closed by RANI MART on 05/15/23 [facility] Brian 05-10-2023 CNOV Office Visit (NSAGAP ) ----- WINSTON MARI ([id number]) 1955 M Date Time Provider Department 05/10/23 [...] Age: [age] year old Sex: male MRN/E# [id number] Last Office Visit: 03/29/2023 Chief Complaint: Patient presents with: lumbar fracture follow up HISTORY OF PRESENT ILLNESS : Winston Mari is a 68 year old male with a past medical history of arthritis, epilepsy, high cholesterol, and sciatica. He is a former smoker. The patient presented to [facility] ED on 02/11/2023 as a transfer from [facility] after falling off a roof. [...] BRAIN SURGERY HX OTHER ANEURYSM REPAIR 1983 [facility]- Dr. Simpson- Brain Aneurysm FAMILY HISTORY [...] by m (more content not included)... Normal [facility] CNCOon 04-30-2023 CNCO Letter Text Normal [facility] CNPNon 04-30-2023 ANNEN Telephone (PARVEZ) ----- WINSTON MARI ([id number]) 1955 M Date Time Provider Department 04/30/23 [...] Upset Date Reviewed: 03/29/2023 Reviewed by: Donna Phillip, CHRISTINE - Fully Assessed Reason for Visit: Appointment [...] 02/11/2023 Closed compression fracture of L2 vertebra ([facility]*02/12/2023 Closed compression fracture of L4 vertebra ([facility]*02/12/2023 Encounter Status:Closed by IRENE QUINTERO MA on 04/30/23 Normal [facility] MRI LUMBAR SPINE WO IVCONon 04-30-2023 MRI [...] None. Localizer images: Renal cysts visible on silver wrapper images. Alignment: Alignment is anatomic. Bone marrow [...] and assume there are 5 lumbar-type vertebrae. [employer] Chief: PSCB Transcribe Date/Time: Apr 30 2023 1:55P Dictated by : TIMUR FIGUEROA MD This examination was interpreted and the report reviewed and electronically signed by: TIMUR FIGUEROA MD on Apr 30 2023 1:59PM EST [id number] Normal [facility] 04-26-2023 [facility] (PNMDNA[facility] ----- WINSTON MARI ([id number]) 1955 M Date Time Provider Department 04/26/23 [facility] PROVIDER PARVEZ During your visit today, we recorded the following information about you: Ena Beard Ma 04/26/2023 1:02 PM Signed Attempted to contact patient via telephone regarding upcoming NEW patient appointment with Dr. Levi on 04/30/23. [facility] relaying the message below: This is the [facility] calling regarding your upcoming appointment with Dr. Levi. To avoid a delay in your care, please bring any imaging (such as MRI, CT, XR, etc.) that have been done outside of the [facility] Systems on a disk to be viewed [...] or reschedule your appointment, please contact the [place] [facility] at [phone]. Allergies As of Date: 04/26/2023 Noted Allergy Reaction ADHESIVE TAPE-SILICONES 02/12/2023 9 - Itching HYDROCODONE-ACETAMINOPHEN 05/28/2017 2 - Rash NAPROXEN 05/28/2017 2 - Rash ULTRAM (TRAMADOL HCL) 07/23/2015 8 - GI Upset Date Reviewed: 03/29/2023 Reviewed by: Donna Phillip, CHRISTINE - Fully Assessed Reason for Visit: Future [...] 02/11/2023 Closed compression fracture of L2 vertebra ([facility]*02/12/2023 Closed compression fracture of L4 vertebra ([facility]*02/12/2023 Encounter Status:Closed by ENA BEARD MA on 04/26/23 [facility] Brian 03-29-2023 CNOV Office Visit (NSAGAP ) ----- WINSTON MARI ([id number]) 1955 M Date Time Provider Department 03/29/23 [...] Age: [age] year old Sex: male MRN/E# [id number] Last Office Visit: Visit date not found Chief Complaint: Patient presents with: Low Back Pain Fracture - Lumbar Vertebra HISTORY OF PRESENT ILLNESS : Winston Mari is a 68 year old male with a past medical history of arthritis, epilepsy, high cholesterol, and sciatica. He is a former smoker. The patient presented to [facility] ED on 02/11/2023 as a transfer from [facility] after falling off a roof. [...] BRAIN SURGERY HX OTHER ANEURYSM REPAIR 1983 [facility]- Dr. Simpson- Brain Aneurysm FAMILY HISTORY [...] Negative f (more content not included)... Normal [facility] ANNENon 03-27-2023 [facility] ([facility]AG[facility] ----- WINSTON MARI ([id number]) 1955 M Date Time Provider Department 03/27/23 [facility] During your visit today, we recorded the following information about you: Donna Phillip RN 03/27/2023 9:20 AM Signed Attempted to call patient at [phone]. Incorrect number listed in patient chart. Donna [...] 02/11/2023 Closed compression fracture of L2 vertebra ([facility]*02/12/2023 Closed compression fracture of L4 vertebra ([facility]*02/12/2023 Encounter Status:Closed by DONNA PHILLIP on 03/27/23 [facility] 03-26-2023 [facility] Telephone (NEAGCLM) ----- WINSTON MARI ([id number]) 1955 M Date Time Provider Department 03/26/23 [facility] During your visit today, we recorded the following information about you: Donna Phillip RN 03/26/2023 2:52 PM Signed Attempted to reach patient and his brother to notify them that Winston needs x-rays completed before his appointment. Brothers' phone number is disconnected. Number listed for Winston leads to [facility]. Will attempt to contact tomorrow again to [...] (HCC*02/12/2023 Encounter Status:Closed by DONNA PHILLIP on 03/26/23 [facility] ALLIED HEALTHon 02-20-2023 ALLIED HEALTH HNO ID: [id number] Author: RT Frankie(R) Service: Radiology Author Type: [...] RT Frankie(R) February 20, 2023 5:26 PM [facility] ED NOTEon 02-20-2023 ED NOTE HNO ID: [id number] Author: Pebbles Corcoran RN Service: Emergency Medicine Author Type: Registered Nurse Type: ED Notes Filed: 02/20/2023 6:48 PM Note Text: No answer for room assignment [facility] ED NOTE HNO ID: [id number] Author: Rosana Hollis RN Service: ? Author Type: Registered Nurse Type: ED Notes Filed: 02/20/2023 6:38 PM Note Text: Bed: 20-ED Expected date: Expected time: Means of arrival: Comments: TRIAGE WHEN CLEAN Normal [facility] ED Triage Noteon 02-20-2023 ED Triage Note HNO ID: [id number] Author: Kendra Dean APRN.CNP Service: ? Author [...] XR: lumbar SIGNATURE: Kendra Dean APRN.CNP Normal [facility] XR LUMBAR 3V AP/LAT/L5-S1on 02-20-2023 XR [...] appearance to x-ray of February 12, 2023. Museum [employer] Chief: CHRISTIN Transcribe Date/Time: Feb 20 2023 6:00P Dictated by : PATRICIA LAI MD This examination was interpreted and the report reviewed and electronically signed by: PATRICIA LAI MD on Feb 20 2023 6:05PM EST [id number] Normal [facility] Basic metabolic 2000 panelon 02-13-2023 Anion gap [Moles/Vol] 9 mmol/L Normal 9-18 [facility] Comment on above: Order Comment: Speci men Type: BLOOD SPECIMEN Ordering Facility: [facility] Address: [address] [address] Performed By: #### 1 989-3 #### [facility] CLIA [id number] [address] [place] Calcium [Mass/Vol] 8.8 mg/dL Normal 8.5-10.2 [facility] Comment on above: Order Comment: Speci men Type: BLOOD SPECIMEN Ordering Facility: [facility] Address: [address] [place] [address] Performed By: #### 1 989-3 #### [facility] CLIA [id number] [address] [place] [address] [place] Chloride [Moles/Vol] 103 mmol/L Normal 97-105 [facility] Comment on above: Order Comment: Speci men Type: BLOOD SPECIMEN Ordering Facility: [facility] Address: [address] [place] [address] Performed By: #### 1 989-3 #### [facility] CLIA [id number] [address] [place] [address] [place] CO2 [Moles/Vol] 26 mmol/L Normal 22-30 [facility] Comment on above: Order Comment: Speci men Type: BLOOD SPECIMEN Ordering Facility: [facility] Address: [address] [place] [address] Performed By: #### 1 989-3 #### [facility] CLIA [id number] [address] [place] [address] [place] Creatinine [Mass/Vol] 1.06 mg/dL Normal 0.73-1.22 [facility] Comment on above: Order Comment: Yo brothers Type: BLOOD SPECIMEN Ordering Facility: [facility] Address: [place] [address] Performed By: #### 1 989-3 #### [facility] CLIA [id number] [address] [place] [address] [place] ESTIMATED GLOMERULAR FILTRATION RATE 77 mL/min/1.73m??? Normal >=60 [facility] Comment on above: Order Comment: Dimitriflorence brothers Type: BLOOD SPECIMEN Ordering Facility: [facility] Address: [place] [address] Result Comment: Josee mated Glomerular Filtration Rate [...] GFR. Performed By: #### 1 989-3 #### [facility] CLIA [id number] [address] [place] [address] [place] Glucose [Mass/Vol] 119 mg/dL High 74-99 [facility] Comment on above: Order Comment: Yo brothers Type: BLOOD SPECIMEN Ordering Facility: [facility] Address: [place] [address] Result Comment: The [place] Diabetes Association (ADA) provides guidance for cutoff [...] Standards of Medical Care in Diabetes 2016, [place] [employer]. Diabetes Care. 2016.39(Suppl 1). Performed By: #### 1 989-3 #### [facility] CLIA [id number] [address] [place] [address] [place] Potassium [Moles/Vol] 4.0 mmol/L Normal 3.7-5.1 [facility] Comment on above: Order Comment: Speci men Type: BLOOD SPECIMEN Ordering Facility: [facility] Address: [address] [place] [address] Performed By: #### 1 989-3 #### [facility] CLIA [id number] 1 [place] [address] [place] Sodium [Moles/Vol] 138 mmol/L Normal 136-144 [facility] Comment on above: Order Comment: Speci men Type: BLOOD SPECIMEN Ordering Facility: [facility] Address: [address] [place] [address] Performed By: #### 1 989-3 #### [facility] CLIA [id number] [address] [place] Urea nitrogen [Mass/Vol] 13 mg/dL Normal 9-24 [facility] Comment on above: Order Comment: Speci men Type: BLOOD SPECIMEN Ordering Facility: [facility] Address: [address] [place] [address] Performed By: #### 1 989-3 #### [facility] CLIA [id number] [address] [place] CBC panel Auto (Bld)on 02-13 Erythrocyte distribution width (RBC) [Ratio] 13.9 % Normal 11.5-15.0 [facility] Comment on above: Order Comment: Speci men Type: BLOOD SPECIMEN Ordering Facility: [facility] Address: [address] [place] [address] Performed By: #### 5 8410-2 #### [facility] CLIA [id number] [address] [place] Hematocrit (Bld) [Volume fraction] 34.4 % Low 39.0-51.0 [facility] Comment on above: Order Comment: Speci men Type: BLOOD SPECIMEN Ordering Facility: [facility] Address: [address] [place] [place] [address] Performed By: #### 5 8410-2 #### [facility] CLIA [id number] [address] Hemoglobin (Bld) [Mass/Vol] 11.4 g/dL Low 13.0-17.0 [facility] Comment on above: Order Comment: Speci men Type: BLOOD SPECIMEN Ordering Facility: [facility] Address: [address] [place] [address] Performed By: #### 5 8410-2 #### [facility] CLIA [id number] [address] MCH (RBC) [Entitic mass] 29.8 pg Normal 26.0-34.0 [facility] Comment on above: Order Comment: Speci men Type: BLOOD SPECIMEN Ordering Facility: [facility] Address: [address] [place] [address] Performed By: #### 5 8410-2 #### [facility] CLIA [id number] [address] MCHC (RBC) [Mass/Vol] 33.1 g/dL Normal 30.5-36.0 [facility] Comment on above: Order Comment: Speci men Type: BLOOD SPECIMEN Ordering Facility: [facility] Address: [address] [place] [address] Performed By: #### 5 8410-2 #### [facility] CLIA [id number] [address] MCV (RBC) [Entitic vol] 90.1 fL Normal 80.0-100.0 [facility] Comment on above: Order Comment: Speci men Type: BLOOD SPECIMEN Ordering Facility: [facility] Address: [address] [place] [address] Performed By: #### 5 8410-2 #### [facility] CLIA [id number] [address] Nucleated RBC (Bld) [#/Vol] 10*3/uL Normal <0.01 [facility] Comment on above: Order Comment: Speci men Type: BLOOD SPECIMEN Ordering Facility: [facility] Address: [address] [place] [place] [address] Performed By: #### 5 8410-2 #### [facility] CLIA [id number] 1 [place] [address] [place] Platelet mean volume (Bld) [Entitic vol] 9.3 fL Normal 9.0-12.7 [facility] Comment on above: Order Comment: Speci men Type: BLOOD SPECIMEN Ordering Facility: [facility] Address: [address] [place] [address] Performed By: #### 5 8410-2 #### [facility] CLIA [id number] 1 [place] [address] [place] Platelets (Bld) [#/Vol] 274 10*3/uL Normal 150-400 [facility] Comment on above: Order Comment: Speci men Type: BLOOD SPECIMEN Ordering Facility: [facility] Address: [address] [place] [address] Performed By: #### 5 8410-2 #### [facility] CLIA [id number] [address] [place] [address] [place] RBC (Bld) [#/Vol] 3.82 10*6/uL Low 4.20-6.00 [facility] Comment on above: Order Comment: Speci men Type: BLOOD SPECIMEN Ordering Facility: [facility] Address: [address] [place] [address] Performed By: #### 5 8410-2 #### [facility] CLIA [id number] 1 [place] [address] [place] WBC (Bld) [#/Vol] 6.34 10*3/uL Normal 3.70-11.00 [facility] Comment on above: Order Comment: Speci men Type: BLOOD SPECIMEN Ordering Facility: [facility] Address: [address] [place] [place] [address] Performed By: #### 5 8410-2 #### [facility] [id number] [address] CNDSon 02-13-2023 [facility] HNO ID: [id number] Author: Prabhakar Ramirez PA-C Service: General Surgery Author Type: Physician Environmental Marketer Type: Discharge Summary Filed: 02/13/2023 1:02 PM [...] THE HOSPITAL: Mr. Winston Mari presented to [facility] as a transfer from [facility] on 02/11/2023 for treatment of injuries sustained [...] you become constipated, you may use any oafy-eel-eghmxkq treatment such as Milk of Magnesia, Sennakot, [...] call for appointment?: Yes Pro Almonte MD [phone] [place] [address] PCP Requested Referral Follow-Up Appointment When: In 2 weeks Patient/Parents to call for appointment?: Yes Eugenio Mayen IV, 400 COL (more content not included)... Normal [facility] CONSULT PROGon 02-13-2023 CONSULT PROG HNO ID: [id number] Author: Vince Márquez, CLOTH LAMINATING SUPERVISOR.SECURITY AND PRIVACY CONSULTANT Service: Neurosurgery Author Type: Nurse Practitioner Type: [...] Therapy: Room Air IANDO: Date 02/12/23699 - 02/13/2365802/13/23699 - 02/14/23 0659 Shift 9006-0497 9161-6074 2806-3829 24 Hour Total 3075-4652 1974-1567 1656-7042 24 Hour Total INTAKE PO 360 120 480 PO 360 120 480 Shift Total 360 120 480 OUTPUT Urine 650 9615 288 3968 Void (ml) 650 9283 911 2323 Shift Total 650 1841 939 5844 Weight (kg) 68 68 68 68 68 [...] L2 and L4 similar to prior MRI. Museum Security Chief: CHRISTIN Transcribe Date/Time: Feb 13 2023 8:46A [...] updated accordingly on 02/13/2023 SIGNATURE: Vince Márquez APRN.SECURITY AND PRIVACY CONSULTANT PATIENT NAME: Winston Mari DATE: February 13, 2023 TIME: 11:16 AM Vince Márquez APRN.SECURITY AND PRIVACY CONSULTANT Pager: [phone] Neurosurgery Pager: [phone] Normal [facility] THERAPY NTon 02-13-2023 THERAPY NT HNO ID: [id number] Author: Ileana Brooke PT Service: Physical Therapy Author Type: Physical Therapist Type: Therapy (PT/OT/Speech/Resp) Filed: 02/13/2023 11:19 AM Note Text: Physical Therapy Evaluation SERVICE DATE: 02/13/2023 SERVICE TIME: 901 ROOM: [place] [address] Recommended Discharge Disposition: Home Recommended Discharge Disposition [...] Pt admitted 02/11 as a transfer from [facility] after a fall from his roof at home. MRI revealed L2 AND L4 vertebral body fx. -- no surgical treatment is anticipated and TLSO brace required for OOB/upright activity; Currently being managed [facility] Reason for Hospital Admission: Fall from height [...] decreased, Flexed trunk posture, [facility] Walk 25 feet or more Learning/Educational [...] activities o (more content not included)... Normal [facility] 25(OH)D3 SerPl-mCncon 2022 25-hydroxyvitamin D3 [Mass/Vol] 19.8 ng/mL Low >=30.0 [facility] Comment on above: Order Comment: Speci men Type: BLOOD SPECIMEN Ordering Facility: [facility] Address: [address] [place] [address] Result Comment: Clas sification of 25 [place] Vitamin D status: Deficiency: <= 20.0 ng/ml. Insufficiency: 21.0-29.0 ng/ml. Sufficiency: >= 30.0 ng/ml. Performed By: #### 1 989-3 #### [facility] CLIA [id number] [address] [place] [address] [place] [facility] Basic metabolic 2000 panelon 02-12-2023 Anion gap [Moles/Vol] 11 mmol/L Normal 9-18 [facility] Comment on above: Order Comment: Speci [facility] Type: BLOOD SPECIMEN Ordering Facility: [facility] Address: [address] [place] [address] Performed By: #### 1 989-3 #### [facility] CLIA [id number] [address] [place] Calcium [Mass/Vol] 8.8 mg/dL Normal 8.5-10.2 [facility] Comment on above: Order Comment: Speci [facility] Type: BLOOD SPECIMEN Ordering Facility: [facility] Address: [address] [place] [address] Performed By: #### 1 989-3 #### [facility] CLIA [id number] [address] [place] Chloride [Moles/Vol] 104 mmol/L Normal 97-105 [facility] Comment on above: Order Comment: Speci men Type: BLOOD SPECIMEN Ordering Facility: [facility] Address: [address] [place] [address] Performed By: #### 1 989-3 #### [facility] CLIA [id number] [address] CO2 [Moles/Vol] 23 mmol/L Normal 22-30 [facility] Comment on above: Order Comment: Speci men Type: BLOOD SPECIMEN Ordering Facility: [facility] Address: [address] [place] [address] Performed By: #### 1 989-3 #### [facility] CLIA [id number] [address] Creatinine [Mass/Vol] 0.87 mg/dL Normal 0.73-1.22 [facility] Comment on above: Order Comment: Speci men Type: BLOOD SPECIMEN Ordering Facility: [facility] Address: [address] [place] [address] Performed By: #### 1 989-3 #### [facility] CLIA [id number] [address] ESTIMATED GLOMERULAR FILTRATION RATE 95 mL/min/1.73m??? Normal >=60 [facility] Comment on above: Order Comment: Speci men Type: BLOOD SPECIMEN Ordering Facility: [facility] Address: [address] [place] [address] Result Comment: Josee mated Glomerular Filtration Rate [...] GFR. Performed By: #### 1 989-3 #### [facility] CLIA [id number] [address] OF [facility] Glucose [Mass/Vol] 83 mg/dL Normal 74-99 [facility] Comment on above: Order Comment: Speci men Type: BLOOD SPECIMEN Ordering Facility: [facility] Address: [address] [place] [address] Result Comment: The [place] Diabetes Association (ADA) provides guidance for cutoff [...] Standards of Medical Care in Diabetes 2016, [place] Diabetes Association. Diabetes Care. 2016.39(Suppl 1). Performed By: #### 1 989-3 #### [facility] CLIA [id number] [address] [place] Potassium [Moles/Vol] 3.9 mmol/L Normal 3.7-5.1 [facility] Comment on above: Order Comment: Speci men Type: BLOOD SPECIMEN Ordering Facility: [facility] Address: [address] [place] [address] Performed By: #### 1 989-3 #### [facility] CLIA [id number] [address] [place] Sodium [Moles/Vol] 138 mmol/L Normal 136-144 [facility] Comment on above: Order Comment: Speci men Type: BLOOD SPECIMEN Ordering Facility: [facility] Address: [address] [place] [address] Performed By: #### 1 989-3 #### [facility] CLIA [id number] [address] [place] Urea nitrogen [Mass/Vol] 9 mg/dL Normal 9-24 [facility] Comment on above: Order Comment: Speci men Type: BLOOD SPECIMEN Ordering Facility: [facility] Address: [address] [address] Performed By: #### 1 989-3 #### [facility] CLIA [id number] [address] [place] CASE MGT INIT ASSESon 2022 CASE MGT INIT ASSES HNO ID: [id number] Author: YOSHI Epps Service: ? Author Type: Nuclear Physics Professor Type: Care Mgt Initial Assessment Filed: 02/12/2023 11:21 AM Note Text: CARE MANAGEMENT: ASSESSMENT AND DISCHARGE PLAN SERVICE DATE: February 12, 2023 SERVICE TIME: 11:09 AM PCP: Eugenio Mayen IV, DO Primary Contact: Extended Emergency Contact Information Primary Emergency Contact: Joe Mari Mobile Relation: Brother Admission Status: Inpatient Insurance Provider: [facility] MEDICAID Discharge Planning requested by: Per Department Practice Potential Transition Plans Home;To Be Determined Advance Directives Current Advance Directive: Health Care Power of Manganese Wheeler In Chart: Yes Up To Date and [...] Patient Goal(s): Be able to go home Omro of Choice Explained: Omro of Choice Given: No Reason Not Given: [...] or get rid of a hangover (eye document management specialist)? Not Applicable 6. CAGE Screening? No 7. [...] He drives and manages his own affairs. RACHEL completed the HC POA with him at this time. Copy sent to Admitting. Original and 2 copies provided to the Pt. Pt plans to return home at sc. Pt is awaiting TLSO and PT/OT evals. Pt fell off the roof, while cleaning the gutters. Pt admits to using gummies for his lung disease and denies any other substance use. Pt's brother will transport him home at sc. +PCP, +RX, +DME SIGNATURE: YOSHI Epps PATIENT NAME: Winston Mari DATE: February 12, 2023 TIME: 11:08 AM C (more content not included)... Normal [facility] CBC panel Auto (Bld)on 02-12 Erythrocyte distribution width (RBC) [Ratio] 14.0 % Normal 11.5-15.0 [facility] Comment on above: Order Comment: Speci men Type: BLOOD SPECIMEN Ordering Facility: [facility] Address: [address] [place] [address] Performed By: #### 5 8410-2 #### [facility] CLIA [id number] [address] Hematocrit (Bld) [Volume fraction] 37.0 % Low 39.0-51.0 [facility] Comment on above: Order Comment: Speci men Type: BLOOD SPECIMEN Ordering Facility: [facility] Address: [address] [place] [address] Performed By: #### 5 8410-2 #### [facility] CLIA [id number] [address] OF [facility] Hemoglobin (Bld) [Mass/Vol] 12.3 g/dL Low 13.0-17.0 [facility] Comment on above: Order Comment: Speci men Type: BLOOD SPECIMEN Ordering Facility: [facility] Address: [address] [place] [address] Performed By: #### 5 8410-2 #### [facility] CLIA [id number] [address] MCH (RBC) [Entitic mass] 29.9 pg Normal 26.0-34.0 [facility] Comment on above: Order Comment: Speci men Type: BLOOD SPECIMEN Ordering Facility: [facility] Address: [address] [place] [address] Performed By: #### 5 8410-2 #### [facility] CLIA [id number] [address] [place] [address] [place] MCHC (RBC) [Mass/Vol] 33.2 g/dL Normal 30.5-36.0 [facility] Comment on above: Order Comment: Speci men Type: BLOOD SPECIMEN Ordering Facility: [facility] Address: [address] [address] Performed By: #### 5 8410-2 #### [facility] CLIA [id number] [address] [place] MCV (RBC) [Entitic vol] 90.0 fL Normal 80.0-100.0 [facility] Comment on above: Order Comment: Speci men Type: BLOOD SPECIMEN Ordering Facility: [facility] Address: [address] [place] [address] Performed By: #### 5 8410-2 #### [facility] CLIA [id number] [address] STATES [facility] Nucleated RBC (Bld) [#/Vol] 10*3/uL Normal <0.01 [facility] Comment on above: Order Comment: Speci men Type: BLOOD SPECIMEN Ordering Facility: [facility] Address: [address] [address] Performed By: #### 5 8410-2 #### [facility] CLIA [id number] [address] [place] Platelet mean volume (Bld) [Entitic vol] 9.0 fL Normal 9.0-12.7 [facility] Comment on above: Order Comment: Speci men Type: BLOOD SPECIMEN Ordering Facility: [facility] Address: [address] [address] Performed By: #### 5 8410-2 #### [facility] CLIA [id number] [address] [place] Platelets (Bld) [#/Vol] 288 10*3/uL Normal 150-400 [facility] Comment on above: Order Comment: Speci men Type: BLOOD SPECIMEN Ordering Facility: [facility] Address: [address] [address] Performed By: #### 5 8410-2 #### [facility] CLIA [id number] [address] RBC (Bld) [#/Vol] 4.11 10*6/uL Low 4.20-6.00 [facility] Comment on above: Order Comment: Speci men Type: BLOOD SPECIMEN Ordering Facility: [facility] Address: [address] [place] [address] Performed By: #### 5 8410-2 #### [facility] CLIA [id number] [address] OF [facility] WBC (Bld) [#/Vol] 8.65 10*3/uL Normal 3.70-11.00 [facility] Comment on above: Order Comment: Speci men Type: BLOOD SPECIMEN Ordering Facility: [facility] Address: [address] [place] [address] Performed By: #### 5 8410-2 #### [facility] CLIA [id number] [address] Erythrocyte distribution width (RBC) [Ratio] 13.9 % Normal 11.5-15.0 [facility] Comment on above: Order Comment: Speci men Type: BLOOD SPECIMEN Ordering Facility: [facility] Address: [address] [place] [address] Performed By: #### 5 8410-2 #### [facility] CLIA [id number] [address] Hematocrit (Bld) [Volume fraction] 37.0 % Low 39.0-51.0 [facility] Comment on above: Order Comment: Speci men Type: BLOOD SPECIMEN Ordering Facility: [facility] Address: [address] [place] [address] Performed By: #### 5 8410-2 #### [facility] CLIA [id number] [address] [place] Hemoglobin (Bld) [Mass/Vol] 12.2 g/dL Low 13.0-17.0 [facility] Comment on above: Order Comment: Speci men Type: BLOOD SPECIMEN Ordering Facility: [facility] Address: [address] [place] [address] Performed By: #### 5 8410-2 #### [facility] CLIA [id number] [address] MCH (RBC) [Entitic mass] 29.8 pg Normal 26.0-34.0 [facility] Comment on above: Order Comment: Speci men Type: BLOOD SPECIMEN Ordering Facility: [facility] Address: [address] [place] [address] Performed By: #### 5 8410-2 #### [facility] CLIA [id number] [address] MCHC (RBC) [Mass/Vol] 33.0 g/dL Normal 30.5-36.0 [facility] Comment on above: Order Comment: Speci men Type: BLOOD SPECIMEN Ordering Facility: [facility] Address: [address] [place] [address] Performed By: #### 5 8410-2 #### [facility] CLIA [id number] [address] MCV (RBC) [Entitic vol] 90.5 fL Normal 80.0-100.0 [facility] Comment on above: Order Comment: Speci men Type: BLOOD SPECIMEN Ordering Facility: [facility] Address: [address] [place] [address] Performed By: #### 5 8410-2 #### [facility] CLIA [id number] [address] Nucleated RBC (Bld) [#/Vol] 10*3/uL Normal <0.01 [facility] Comment on above: Order Comment: Speci men Type: BLOOD SPECIMEN Ordering Facility: [facility] Address: [address] [place] [address] Performed By: #### 5 8410-2 #### [facility] CLIA [id number] [address] [place] Platelet mean volume (Bld) [Entitic vol] 8.6 fL Low 9.0-12.7 [facility] Comment on above: Order Comment: Speci men Type: BLOOD SPECIMEN Ordering Facility: [facility] Address: [address] [place] [address] Performed By: #### 5 8410-2 #### [facility] CLIA [id number] [address] Platelets (Bld) [#/Vol] 279 10*3/uL Normal 150-400 [facility] Comment on above: Order Comment: Speci men Type: BLOOD SPECIMEN Ordering Facility: [facility] Address: [address] [place] [address] Performed By: #### 5 8410-2 #### [facility] CLIA [id number] [address] RBC (Bld) [#/Vol] 4.09 10*6/uL Low 4.20-6.00 [facility] Comment on above: Order Comment: Speci men Type: BLOOD SPECIMEN Ordering Facility: [facility] Address: [address] [place] [address] Performed By: #### 5 8410-2 #### [facility] CLIA [id number] [address] WBC (Bld) [#/Vol] 9.06 10*3/uL Normal 3.70-11.00 [facility] Comment on above: Order Comment: Speci men Type: BLOOD SPECIMEN Ordering Facility: [facility] Address: [address] [place] [address] Performed By: #### 5 8410-2 #### [facility] CLIA [id number] [address] CONSULTon 02-12-2023 CONSULT HNO ID: [id number] Author: Pretty Cardenas MD Service: Pain Management [...] lower back pain. Patient was seen at [facility]. CT HNCAPT completed and demonstrated acute [...] cap(s) (FLOMAX) 0.4 mg ORAL DAILY Shira Galarza, DO 0.4 mg at 02/12/[address] 40 mg tab(s) (PROTONIX) 40 mg ORAL DAILY (6 AM) Shira Galarza, DO 40 mg at 02/12/23 0517 DULoxetine 30 mg cap(s) (CYMBALTA) 30 mg ORAL BID Shira Galarza, DO 30 mg at 02/12/23 08 lactated ringers iv infusion 100 mL/hr INTRAVENOUS CONTINUOUS Shira Galarza, DO 100 mL/hr at 02/11/23 2343 100 mL/hr at 02/11/23 234 acetaminophen 975 mg tab(s) (TYLENOL) 975 mg ORAL QID Shira Galarza, DO 975 mg at 02/12/23 05 NaCl 0.9% iv flush bag 20 mL INTRAVENOUS PRN Shira Samayoason, DO ondansetron 4 mg tab(s) (ZOFRAN) 4 mg ORAL q 6 H PRN Shira Galarza, DO Or ondansetron (PF) 4 mg injection (ZOFRAN) 4 mg INTRAVENOUS q 6 H PRN Shira Galarza, DO oxyCODONE IR 5-10 mg tab(s) (ROXICODONE) 5-10 mg ORAL q 6 H PRN Shira Galarza, DO 10 mg at 02/12/23825 NaCl 0.9% iv flush bag 20 mL [...] (Patient n (more content not included)... Normal [facility] CONSULT HNO ID: [id number] Author: Vince Márquez APRN.SECURITY AND PRIVACY CONSULTANT Service: Neurosurgery Author Type: Nurse Practitioner Type: [...] Dr Cordero PRIMARY CARE PHYSICIAN: Eugenio Mayen IV, DO Consultation requested by Dr. Cordero for [...] BRAIN SURGERY HX OTHER ANEURYSM REPAIR 1983 [facility]- Dr. Simpson- Brain Aneurysm FAMILY HISTORY [...] AM) Shira Galarza, DO 40 mg at 02/12/23 0517 DULoxetine 30 mg cap(s) (CYMBALTA) 30 mg ORAL BID Shira Geovanni, DO 30 mg at 02/12/23 0826 lactated ringers iv infusion 100 mL/hr INTRAVENOUS CONTINUOUS Shira Geovanni, DO 100 mL/hr at 02/11/23 2343 100 [...] 98.1 (Ora (more content not included)... Normal [facility] Comprehensive metabolic 2000 panelon 02-12-2023 Albumin [Mass/Vol] 3.9 g/dL Normal 3.9-4.9 [facility] Comment on above: Order Comment: Speci men Type: BLOOD SPECIMEN Ordering Facility: [facility] Address: [address] [place] [address] Performed By: #### 1 989-3 #### [facility] CLIA [id number] [address] ALP [Catalytic activity/Vol] 78 U/L Normal 38-113 [facility] Comment on above: Order Comment: Speci men Type: BLOOD SPECIMEN Ordering Facility: [facility] Address: [address] [place] [address] Performed By: #### 1 989-3 #### [facility] CLIA [id number] [address] [place] With P-5'-P [Catalytic activity/Vol] 19 U/L Normal 10-54 [facility] Comment on above: Order Comment: Speci men Type: BLOOD SPECIMEN Ordering Facility: [facility] Address: [address] [place] [address] Performed By: #### 1 989-3 #### [facility] CLIA [id number] [address] Anion gap [Moles/Vol] 11 mmol/L Normal 9-18 [facility] Comment on above: Order Comment: Speci men Type: BLOOD SPECIMEN Ordering Facility: [facility] Address: [address] [address] Performed By: #### 1 989-3 #### [facility] CLIA [id number] [address] OF [facility] AST With P-5'-P [Catalytic activity/Vol] 21 U/L Normal 14-40 [facility] Comment on above: Order Comment: Speci men Type: BLOOD SPECIMEN Ordering Facility: [facility] Address: [address] [place] [address] Performed By: #### 1 989-3 #### [facility] CLIA [id number] [address] [place] Bilirubin [Mass/Vol] 0.9 mg/dL Normal 0.2-1.3 [facility] Comment on above: Order Comment: Speci men Type: BLOOD SPECIMEN Ordering Facility: [facility] Address: [address] [place] [address] Performed By: #### 1 989-3 #### [facility] CLIA [id number] [address] [place] Calcium [Mass/Vol] 8.9 mg/dL Normal 8.5-10.2 [facility] Comment on above: Order Comment: Speci men Type: BLOOD SPECIMEN Ordering Facility: [facility] Address: [address] [place] [address] Performed By: #### 1 989-3 #### [facility] CLIA [id number] [address] [place] Chloride [Moles/Vol] 105 mmol/L Normal 97-105 [facility] Comment on above: Order Comment: Speci men Type: BLOOD SPECIMEN Ordering Facility: [facility] Address: [address] [place] [address] Performed By: #### 1 989-3 #### [facility] CLIA [id number] [address] [place] CO2 [Moles/Vol] 24 mmol/L Normal 22-30 [facility] Comment on above: Order Comment: Speci men Type: BLOOD SPECIMEN Ordering Facility: [facility] Address: [address] [address] Performed By: #### 1 989-3 #### [facility] CLIA [id number] [address] Creatinine [Mass/Vol] 0.87 mg/dL Normal 0.73-1.22 [facility] Comment on above: Order Comment: Yo men Type: BLOOD SPECIMEN Ordering Facility: [facility] Address: [address] [address] Performed By: #### 1 989-3 #### [facility] CLIA [id number] [address] ESTIMATED GLOMERULAR FILTRATION RATE 95 mL/min/1.73m??? Normal >=60 [facility] Comment on above: Order Comment: Yo men Type: BLOOD SPECIMEN Ordering Facility: [facility] Address: [address] [place] [address] Result Comment: Josee mated Glomerular Filtration Rate [...] GFR. Performed By: #### 1 989-3 #### [facility] CLIA [id number] [address] [place] [address] Glucose [Mass/Vol] 85 mg/dL Normal 74-99 [facility] Comment on above: Order Comment: Speci zev Type: BLOOD SPECIMEN Ordering Facility: [facility] Address: [address] [place] [address] Result Comment: The [place] Diabetes Association (ADA) provides guidance for cutoff [...] Standards of Medical Care in Diabetes 2016, [place] Diabetes Association. Diabetes Care. 2016.39(Suppl 1). Performed By: #### 1 989-3 #### [facility] CLIA [id number] [address] STATES OF [facility] Potassium [Moles/Vol] 3.8 mmol/L Normal 3.7-5.1 [facility] Comment on above: Order Comment: Yo brothers Type: BLOOD SPECIMEN Ordering Facility: [facility] Address: [address] [place] [address] Performed By: #### 1 989-3 #### [facility] CLIA [id number] [address] [place] Protein [Mass/Vol] 6.4 g/dL Normal 6.3-8.0 [facility] Comment on above: Order Comment: Yo brothers Type: BLOOD SPECIMEN Ordering Facility: [facility] Address: [address] [place] [address] Performed By: #### 1 989-3 #### [facility] CLIA [id number] [address] [place] Sodium [Moles/Vol] 140 mmol/L Normal 136-144 [facility] Comment on above: Order Comment: Dimitrii men Type: BLOOD SPECIMEN Ordering Facility: [facility] Address: [address] [address] Performed By: #### 1 989-3 #### [facility] CLIA [id number] [address] [place] Urea nitrogen [Mass/Vol] 8 mg/dL Low 9-24 [facility] Comment on above: Order Comment: Dimitrii men Type: BLOOD SPECIMEN Ordering Facility: [facility] Address: [address] [address] Performed By: #### 1 989-3 #### [facility] CLIA [id number] [address] ED NOTEon 02-12-2023 ED NOTE HNO ID: [id number] Author: Gaby Carlisle RN Service: Nursing Author Type: Registered Nurse Type: ED Notes Filed: 02/11/2023 11:07 PM Note Text: Report called to Jeannie RN for room 5265. No further questions at this time. Room ready, will send patient. Normal [facility] ED NOTE HNO ID: [id number] Author: Gaby Carlisle RN Service: Nursing Author Type: Registered Nurse Type: ED Notes Filed: 02/11/2023 10:35 PM Note Text: RN attempted to call report. RN unavailable. [facility] ED NOTE HNO ID: [id number] Author: Gaby Carlisle RN Service: Nursing Author Type: Registered Nurse Type: ED Notes Filed: 02/11/2023 10:33 PM Note Text: MRI screening form filled and faxed. Normal [facility] ED PROV NOTEon 02-12-2023 ED PROV NOTE HNO ID: [id number] Author: Julius Castellon MD Service: Emergency Medicine Author Type: Physician Type: ED Provider Notes Filed: 02/13/2023 9:00 PM Note Text: ED Provider Note Patient Name: Winston Mari : 1955 SERVICE DATE: 02/11/23 History Patient presents with: Trauma: Transfer from [place]. Patient with L2 fracture after falling off roof 02/11 afternoon. C/O new left foot tingling intermittently since fall. GCS 15.-thinners -LOC -hit head Patient is a 68-year-old male who presents as a transfer from [place]. Patient was on his roof when he fell off, 25 to 30 feet onto the ground. Patient did not lose consciousness. Patient states he landed on his legs and does not believe that he hit his head. Patient heard a crack in his back. Patient was taken to [place] where he was found to have a [...] BRAIN SURGERY HX OTHER ANEURYSM REPAIR 1983 [facility]- Dr. Simpson- Brain Aneurysm FAMILY HISTORY [...] normal. Behavior: (more content not included)... Normal [facility] Ethanol SerPl-mCncon 023 Ethanol [Mass/Vol] mg/dL Normal <11 [facility] Comment on above: Order Comment: Speci men Type: BLOOD SPECIMEN Ordering Facility: [facility] Address: [address] [place] [phone] Performed By: #### 5 643-2 #### [facility] CLIA [id number] 1 [place] [address] [place] HISTORY PHYSICALon HISTORY PHYSICAL HNO ID: [id number] Author: Shira Galarza DO Service: General Surgery [...] MD Delayed entry ----- TRAUMA SURGERY HANDP [facility] ARRIVAL DATE: 02/11/2023 ARRIVAL TIME: 21:30 CATEGORY: [...] off the roof. Landed on his feet. [place] and heard a large crack in his lower back and acute onset of low back pain. Denies hitting his head. Denies LOC. No blood thinners. Went to [place]. CT HNCAPT completed showed acute L2 fracture. [...] BRAIN SURGERY HX OTHER ANEURYSM REPAIR 1983 [facility]- Dr. Simpson- Brain Aneurysm Social History [...] rebound or (more content not included)... Normal [facility] Lipase SerPl-cCncon 02-13-20 Lipase [Catalytic activity/Vol] 84 U/L High 16-61 [facility] Comment on above: Order Comment: Speci men Type: BLOOD SPECIMEN Ordering Facility: [facility] Address: [address] [place], [place] [phone] Performed By: #### 1 989-3 #### [facility] CLIA [id number] [address] [place] [address] [place] MRI LUMBAR SPINE WO IVCONon 02-12-2023 MRI LUMBAR SPINE WO IVCON * * *Final Report* * * DATE OF EXAM: Feb 12 2023 8:07AM [facility] 0303 - MRI LUMBAR SPINE WO [...] and assume there are 5 lumbar-type vertebrae. Museum Security Chief: PSCLiz Transcribe Date/Time: Feb 12 2023 8:08A Dictated by : MISTI IRVIN MD This examination was interpreted and the report reviewed and electronically signed by: MISTI IRVIN MD on Feb 12 2023 8:25AM EST [id number] Normal [facility] PT panel Coag (PPP)on 2022 INR Coag (PPP) [Relative time] 1.0 {INR} Normal 0.9-1.3 [facility] Comment on above: Order Comment: Speci men Type: BLOOD SPECIMEN Ordering Facility: [facility] Address: [address] [place], [place] [phone] Result Comment: Ashley min K Antagonist (VKA) Therapeutic Range: INR 2 to 3 (Target INR of 2.5) Note: For patients treated with VKA drugs, such as warfarin, the [place] [employer] 2012 Guideline recommends [...] Chest 2012, 141:7S-47S Kasie RA, et al. [facility] 2017, 70: 252-289 Performed By: #### 3 4528-0, 88505-0 #### [facility] CLIA [id number] [address] STATES OF [facility] PT Coag (PPP) [Time] 10.9 s Normal 9.7-13.0 [facility] Comment on above: Order Comment: Speci men Type: BLOOD SPECIMEN Ordering Facility: [facility] Address: [place] [address] Performed By: #### 3 4528-0, 35036-2 #### [facility] CLIA [id number] [address] [place] THERAPY NTon 02-12-2023 THERAPY NT HNO ID: [id number] Author: Carey Skinner OTR/L Service: Occupational Therapy Author Type: Occupational Therapist Type: Therapy (PT/OT/Speech/Resp) Filed: 02/12/2023 9:52 AM Note Text: OCCUPATIONAL THERAPY MISSED VISIT SERVICE DATE: 02/12/2023 SERVICE TIME: 951 to 951 ROOM: [place] [address] Patient not seen due to Hold: Clinical Appropriateness (Pending neurosurgery input. Will hold for now). SIGNATURE: Carey Skinner OTR/L PATIENT NAME: Winston Mari DATE: February 12, 2023 TIME: 9:52 AM Normal [facility] THERAPY NT HNO ID: [id number] Author: Ileana Brooke PT Service: Physical Therapy Author Type: Physical Therapist Type: Therapy (PT/OT/Speech/Resp) Filed: 02/12/2023 8:10 AM Note Text: PHYSICAL THERAPY MISSED VISIT SERVICE DATE: 02/12/2023 SERVICE TIME: 0810 to 08 ROOM: [place] [address] ([facility]) Patient not seen due to Hold: Clinical Appropriateness (awaiting neurosurg consult and plan). SIGNATURE: Ileana Brooke PT PATIENT NAME: Winston Mari DATE: February 12, 2023 TIME: 8:10 AM Normal [facility] TOX SCREEN ROUT URon 023 Amphetamines Confirm (U) [Mass/Vol] Negative Normal Negative [facility] Comment on above: Order Comment: Speci men Type: BLOOD SPECIMEN Ordering Facility: [facility] Address: [address] [place] [phone] Result Comment: Cuto ff threshold at 1000 ng/mL. Performed By: #### 1 989-3 #### [facility] CLIA [id number] [address] [place] BARBITURATES, URINE Negative Normal Negative [facility] Comment on above: Order Comment: Speci men Type: BLOOD SPECIMEN Ordering Facility: [facility] Address: [address] [address] Result Comment: Cuto ff threshold at 200 ng/mL. Performed By: #### 1 989-3 #### [facility] CLIA [id number] [address] OF [facility] BENZODIAZEPINES, UR Negative Normal Negative [facility] Comment on above: Order Comment: Speci men Type: BLOOD SPECIMEN Ordering Facility: [facility] Address: [address] [address] Result Comment: Cuto ff threshold at 200 ng/mL. Performed By: #### 1 989-3 #### [facility] CLIA [id number] [address] CANNABINOIDS,URINE Positive Abnormal Negative [facility] Comment on above: Order Comment: Speci men Type: BLOOD SPECIMEN Ordering Facility: [facility] Address: [address] [place] [address] Result Comment: Cuto ff threshold at 50 ng/mL. Performed By: #### 1 989-3 #### [facility] CLIA [id number] [address] STATES OF [facility] Cocaine Ql (U) Negative Normal Negative [facility] Comment on above: Order Comment: Speci men Type: BLOOD SPECIMEN Ordering Facility: [facility] Address: [address] [address] Result Comment: Cuto ff threshold at 300 ng/mL. Performed By: #### 1 989-3 #### [facility] CLIA [id number] [address] [place] Ethanol (U) [Mass/Vol] <11 Normal <[address] [facility] Comment on above: Order Comment: Speci men Type: BLOOD SPECIMEN Ordering Facility: [facility] Address: [address] [place] [address] Performed By: #### 1 989-3 #### [facility] CLIA [id number] [address] Opiates Screen Ql (U) Positive Abnormal Negative [facility] Comment on above: Order Comment: Speci men Type: BLOOD SPECIMEN Ordering Facility: [facility] Address: [address] [place] [address] Result Comment: Cuto ff threshold at 300 ng/mL. Performed By: #### 1 989-3 #### [facility] CLIA [id number] [address] oxyCODONE cutoff Screen (U) [Mass/Vol] Negative Normal Negative [facility] Comment on above: Order Comment: Speci men Type: BLOOD SPECIMEN Ordering Facility: [facility] Address: [address] [place] [address] Result Comment: Cuto ff threshold at 100 ng/mL. Performed By: #### 1 989-3 #### [facility] CLIA [id number] [address] Phencyclidine Ql (U) Negative Normal Negative [facility] Comment on above: Order Comment: Speci men Type: BLOOD SPECIMEN Ordering Facility: [facility] Address: [address] [place] [address] Result Comment: Cuto ff threshold at 25 ng/mL. Performed By: #### 1 989-3 #### [facility] CLIA [id number] [address] TYPE + SCREENon 02-12-2023 ABO O Normal [facility] Comment on above: Order Comment: Speci men Type: BLOOD SPECIMENOrdering Facility: [facility] Address: [address] [place] [address] Performed By: #### T SCR ####[facility] [id number] [address] HISTORICAL AB SCR STATUS Negative Normal [facility] Comment on above: Order Comment: Speci men Type: BLOOD SPECIMENOrdering Facility: [facility] Address: [address] [place] [address] Performed By: #### T SCR ####[facility] [id number] [place] [address] [facility] Rh Nom (Bld) Positive Normal [facility] Comment on above: Order Comment: Speci men Type: BLOOD SPECIMENOrdering Facility: [facility] Address: [address] [place] [address] Performed By: #### T SCR ####[facility] [id number] [place] [address] [facility] TYPE AND SCREEN EXPIRATION 02/14/2023 23:59 Normal [facility] Comment on above: Order Comment: Speci men Type: BLOOD SPECIMENOrdering Facility: [facility] Address: [address] [address] Performed By: #### T SCR ####[facility] [id number] [place] [address] [facility] XR LUMBAR 2V FLEX/EXTon 01-21 XR LUMBAR [...] L2 and L4 similar to prior MRI. Museum Security Chief: CHRISTIN Transcribe Date/Time: Feb 13 2023 8:46A Dictated by : ALEXANDER CHOPRA MD This examination was interpreted and the report reviewed and electronically signed by: ALEXANDER CHOPRA MD on Feb 13 2023 8:49AM EST [id number] Normal [facility] aPTT PPPon 02-12-2023 aPTT Coag (PPP) [Time] 28.8 s Normal 23.0-32.[address] [facility] Comment on above: Order Comment: Speci men Type: BLOOD SPECIMEN Ordering Facility: [facility] Address: [address] [place] [phone] Performed By: #### 3 4528-0, 79703-1 #### [facility] CLIA [id number] [address] [id number] [place] [facility] Absolute lymphocyte countOrd ered By: Dr. Mari on 02-11-2023 Lymphocytes Auto (Unsp spec) [#/Vol] 1.64 10*3/uL 0.83-4.[address] [facility] Basophil percentageOrdered B y: Dr. Mari on 02-11-2023 Basophil percentage 0 SEEN /hpf 0-5 [facility] Basophils/100 WBC (Bld) 0.7 % 0-[address] [facility] Bilirubin [Mass/Vol] 0.80 mg/dL 0.20-1.00 [facility] Comment on above: For patients on eltr ombopag therapy, use of Dimension [place] TBIL is not recommended. Chloride [Moles/Vol] 110 mmol/L 98-107 [facility] Eosinophils/100 WBC (Bld) 2.6 % 0-[address] [facility] Glucose [Mass/Vol] 103 mg/dL 74-106 [facility] Comment on above: Fasting Glucose resu lt from 100 to 125 mg/dL suggests IMPAIRED HOMEOSTASIS per A.D.A. criteria. Neutrophils (Bld) [#/Vol] 5.8 10*3/uL 2.0-7.[address] [facility] Neutrophils/100 WBC (Bld) 69.1 % 47-[address] [facility] Potassium [Moles/Vol] 4.0 mmol/L 3.5-5.1 [facility] Comment on above: Slight Hemolysis, Re sult may be falsely increased. Protein [Mass/Vol] 6.6 g/dL 6.4-8.2 [facility] Sodium [Moles/Vol] 137 mmol/L 136-145 [facility] WBC (Bld) [#/Vol] 8.4 10*3/uL 4.4-11.0 [facility] Bilirubin Test strip Ql (U)O rdered By: Dr. Mari on 02-11-2023 Bilirubin Ql (U) Negative Negative [facility] Blood erythrocytes count (nu mber/volume)Ordered By: Dr. Mari on 02-11-2023 RBC (Bld) [#/Vol] 4.10 10*6/uL 4.6-6.2 [facility] Blood hemoglobin measurement (mass/volume)Ordered By: Dr. Mari on 02-11-2023 Hemoglobin (Bld) [Mass/Vol] 12.6 g/dL 13.0-16.[address] [facility] Blood lymphocytes/100 leukoc ytesOrdered By: Dr. Mari on 02-11-2023 Lymphocytes/100 WBC (Bld) 19.5 % 19-[address] [facility] Blood monocytes/100 leukocyt esOrdered By: [address] Mari on 02-11-2023 Monocytes/100 WBC (Bld) 6.8 % 0-[address] [facility] Blood platelet mean volumeOr dered By: Dr. Mari on 02-11-2023 Platelet mean volume (Bld) [Entitic vol] 9.0 fL 6.2-12.[address] [facility] Determination of erythrocyte mean corpuscular volume (MCV)Ordered By: Dr. Mari on 02-11-2023 MCV (RBC) [Entitic vol] 91.7 fL 80-[address] [facility] ED NOTEon 02-11-2023 ED NOTE HNO ID: [id number] Author: Gaby Carlisle RN Service: Nursing Author Type: Registered Nurse Type: ED Notes Filed: 02/11/2023 9:28 PM Note Text: Trauma at bedside. Normal [facility] ED NOTE HNO ID: [id number] Author: Gaby Carlisle RN Service: Nursing Author Type: Registered Nurse Type: ED Notes Filed: 02/11/2023 8:10 PM Note Text: Patient arrives via EMS with C-collar in place. [facility] ED NOTE HNO ID: [id number] Author: Gaby Carlisle RN Service: Nursing Author Type: Registered Nurse Type: ED Notes Filed: 02/11/2023 8:09 PM Note Text: Patient placed on school lunch monitor for clinical monitoring. [facility] ED NOTE HNO ID: [id number] Author: Mara Calvin RN Service: ? Author Type: Registered Nurse Type: ED Notes Filed: 02/11/2023 8:05 PM Note Text: Bed: 43-ED Expected date: Expected time: Means of arrival: Comments: [place] [facility] ED PROV NOTEon 02-11-2023 ED PROV NOTE HNO ID: [id number] Author: Julius Castellon MD Service: Emergency Medicine [...] care with the resident. Patient transferred from [facility] for L2 fracture. Around 1 PM he fell off the roof and he said he landed on his left lower extremity. He was unable to get up due to his excruciating pain in his left lower extremity and his back. He had evaluation at [place] which found L2 fracture. Denies headache. Has [...] with pain. JULIUS CASTELLON 02/12/23 0100 Normal [facility] Hematocrit Auto (Bld) [Volum e fraction]Ordered By: Dr. Mari on 02-11-2023 Hematocrit (Bld) [Volume fraction] 37.6 % 40-[address] [facility] INR in Blood by Coagulation assayOrdered By: Dr. Mari on 02-11-2023 INR Coag (Bld) [Relative time] 1.2 {INR} [facility] Ketones Test strip Ql (U)Ord ered By: Dr. Mari on 02-11-2023 Ketones Ql (U) Negative Negative [facility] Laboratory - Chemistry and C hemistry - challengeOrdered By: Dr. Mari on 02-11-2023 ALP [Catalytic activity/Vol] 78 U/L 45-[address] [facility] ALT [Catalytic activity/Vol] 27 U/L 16-[address] [facility] CO2 [Moles/Vol] 25.0 mmol/L 21.0-32.[address] [facility] Globulin (S) [Mass/Vol] 3.3 g/dL 2.2-4.[address] [facility] Lipase [Catalytic activity/Vol] 24 U/L 13-[address] [facility] Comment on above: Please note:LIPASE r evised reference range effective 23. New Lipase methodology. Expected to produce lower values than the previous assay method. NEW Reference Range: 13 - 75 U/L Urea nitrogen/Creatinine [Mass ratio] 12.2 mg/mg 10-[address] [facility] Laboratory - CoagulationOrde red By: Dr. Mari on 02-11-2023 aPTT Coag (Bld) [Time] 31.9 s 24.1-36.2 [facility] PT Coag (PPP) [Time] 14.4 s 11.7-14.9 [facility] Laboratory - Hematology and Cell countsOrdered By: Dr. Mari on 02-11-2023 Erythrocyte distribution width (RBC) [Entitic vol] 46.7 fL 35.1-43.[address] [facility] Erythrocyte distribution width (RBC) [Ratio] 13.8 % 11.6-14.[address] [facility] Immature granulocytes/100 WBC (Bld) 1.300 % 0.0-0.[address] [facility] Comment on above: IG% - Immature Granu locytes (promyelocytes, myelocytes and metamyelocytes) > 1% indicates that a LEFT SHIFT is Present. MCH (RBC) [Entitic mass] 30.7 pg 27.0-32.[address] [facility] Nucleated RBC/100 WBC (Bld) [Ratio] 0 % 0-[address] [facility] MCHC Auto (RBC) [Mass/Vol]Or dered By: Dr. Mari on 02-11-2023 MCHC (RBC) [Mass/Vol] 33.5 g/dL 32-36 [facility] Mucus LM Ql (Urine sed)Order ed By: Dr. Mari on 02-11-2023 Mucus Ql (Urine sed) 0 SEEN /hpf [facility] Nitrite Test strip Ql (U)Ord ered By: Dr. Mari on 02-11-2023 Nitrite Ql (U) Negative Negative [facility] No Panel InformationOrdered By: Dr. Mari on 02-11-2023 Estimated Creatinine Clearance Calc 75.79 ml/min [facility] Estimated GFR (MDRD) Amer 97 mL/min >[address] [facility] Comment on above: GFR Calc Estimated GFR (MDRD) Non-Af Amer 80 mL/min >[address] [facility] Comment on above: Non- GFR Calc Ethyl Alcohol Level < 3.0 mg/dL [facility] Comment on above: The serum:whole bloo d ethanol ratio is approximately 1.14and varies slightly with hematocrit. Medical Alcohol reference interval and critical value innon-tolerant individuals; 50 - 100 Impairment 100 Intoxication 100 - 250 Severe Poisoning 250 - 400 Deep/possible fatal coma Platelets bldOrdered By: Dr. Mari on 02-11-2023 Platelets (Bld) [#/Vol] 324 10*3/uL 150-[address] [facility] Protein Test strip Ql (U)Ord ered By: Dr. Mari on 02-11-2023 Protein Ql (U) Negative Negative [facility] Serum or plasma albumin doug urement (mass/volume)Ordered By: Dr. Mari on 02-11-2023 Albumin [Mass/Vol] 3.3 g/dL 3.2-5.0 [facility] Serum or plasma albumin/glob ulin mass ratioOrdered By: Dr. Mari on 02-11-2023 Albumin/Globulin [Mass ratio] 1.0 {ratio} 0.9-2.[address] [facility] Serum or plasma calcium doug urement (mass/volume)Ordered By: Dr. Mari on 02-11-2023 Calcium [Mass/Vol] 9.0 mg/dL 8.5-10.1 [facility] Serum or plasma creatinine m easurement (mass/volume)Ordered By: Dr. Mari on 02-11-2023 Creatinine [Mass/Vol] 0.99 mg/dL 0.70-1.30 [facility] Comment on above: The validity of the calculated GFR & GFRAA in patients over 70 years has not been determined. Clinical correlation is essential. Serum or plasma urea nitroge n measurement (mass/volume)Ordered By: Dr. Mari on 02-11-2023 Urea nitrogen [Mass/Vol] 12 mg/dL 7-[address] [facility] Squamous epithelial cells de tection in urine sediment by light microscopyOrdered By: Dr. Mari on 02-11-2023 Epithelial cells.squamous LM Ql (Urine sed) 0 SEEN /hpf 0-[address] [facility] Thin prep Papanicolaou smear with manual screeningOrdered By: Dr. Mari on 02-11-2023 Thin prep Papanicolaou smear with manual screening 26 U/L 15-[address] [facility] Comment on above: Slight Hemolysis, Re sult may be falsely increased. Thin prep Papanicolaou smear with manual screening 2 5-[address] [facility] Urine blood detectionOrdered By: Dr. Mari on 02-11-2023 RBC Ql (U) 10 /ul Negative [facility] RBC Ql (U) 0 SEEN /hpf 0-[address] [facility] Urine clarityOrdered By: Dr. Mari on 02-11-2023 Clarity (U) Clear Clear [facility] Urine color determinationOrd ered By: Dr. Mari on 02-11-2023 Color (U) Yellow Yellow [facility] Urine glucose detectionOrder ed By: Dr. Mari on 02-11-2023 Glucose Ql (U) Normal mg/dl Normal [facility] Urine leukocyte esterase det ection by dipstickOrdered By: Dr. Mari on 02-11-2023 Leukocyte esterase Test strip Ql (U) Negative Negative [facility] Urine pHOrdered By: Dr. Kathya guzmán on 02-11-2023 pH (U) 8.0 [pH] 5.0 - 8.[address] [facility] Urine sediment bacteria coun t by microscopy (number/high power field)Ordered By: Dr. Mari on 02-11-2023 Bacteria LM.HPF (Urine sed) [#/Area] 0 /[HPF] None Seen [facility] Urine specific gravity measu rementOrdered By: Dr. Mari on 02-11-2023 Specific gravity (U) [Rel density] 1.010 1.002-1.[address] [facility] Urobilinogen Auto test strip Ql (U)Ordered By: Dr. Mari on 02-11-2023 Urobilinogen Ql (U) Normal mg/dl Normal [facility] BD BONE DENSITY DEXA AXIAL [...] Date: 12/15/2022 4:34:29 PM Ordering Provider: EUGENIO HALKO [facility] ([place]) CNOVon 09-19-2022 [facility] Office Visit (GENSWS ) ----- WINSTON MARI ([id number]) 1955 Date Time Provider Department 09/19/22 3:30 PM [...] to your office visit today with the [facility] General Surgeons. INSTRUCTIONS FOR AN ANAL [...] you should contact our office immediately @ [phone] and ask to be transferred to the General Surgery department. Hubert Jett MD 09/20/2022 6:52 AM Signed HISTORY AND PHYSICAL Winston Mari 1955 REFERRING PHYSICIAN: Eugenio Mayen IV, MD CHIEF COMPLAINT: Anal Pain HPI: Winston henriquez (more content not included)... Normal [facility] LABORATORYOrdered By: Maddie Currie on 09-04-2022 Basophil, [...] Auto (Unsp spec) [#/Vol] 2.03 10*3/uL 0.83-4.[address] [facility] Work Phone: Basophil percentageon 2021 Basophil percentage 5-10 SEEN /hpf 0-5 [facility] Work Phone: Basophils/100 WBC (Bld) 1.0 % 0-[address] [facility] Work Phone: Chloride [Moles/Vol] 104 mmol/L 98-107 [facility] Work Phone: Eosinophils/100 WBC (Bld) 3.5 % 0-[address] [facility] Work Phone: Glucose [Mass/Vol] 88 mg/dL 74-106 [facility] Work Phone: Neutrophils (Bld) [#/Vol] 4.0 10*3/uL 2.0-7.[address] [facility] Work Phone: Neutrophils/100 WBC (Bld) 56.6 % 47-[address] [facility] Work Phone: Potassium [Moles/Vol] 3.5 mmol/L 3.5-5.1 [facility] Work Phone: Sodium [Moles/Vol] 136 mmol/L 136-145 [facility] Work Phone: WBC (Bld) [#/Vol] 7.1 10*3/uL 4.4-11.0 [facility] Work Phone: Bilirubin Test strip Ql (U)o n 08-12-2022 Bilirubin Ql (U) Negative Negative [facility] Work Phone: Blood erythrocytes count (nu mber/volume)on 08-12-2022 RBC (Bld) [#/Vol] 4.49 10*6/uL 4.6-6.2 [facility] Work Phone: Blood hemoglobin measurement (mass/volume)on 08-12-2022 Hemoglobin (Bld) [Mass/Vol] 13.5 g/dL 13.0-16.[address] [facility] Work Phone: [phone] Blood lymphocytes/100 leukoc yteson 08-12-2022 Lymphocytes/100 WBC (Bld) 28.8 % 19-[address] [facility] Work Phone: [phone] Blood monocytes/100 leukocyt eson 08-12-2022 Monocytes/100 WBC (Bld) 9.8 % 0-[address] [facility] Work Phone: Blood platelet mean volumeon 08-12-2022 Platelet mean volume (Bld) [Entitic vol] 8.7 fL 6.2-12.[address] [facility] Work Phone: Determination of erythrocyte mean corpuscular volume (MCV)on 08-12-2022 MCV (RBC) [Entitic vol] 90.2 fL 80-[address] [facility] Work Phone: Hematocrit Auto (Bld) [Volum e fraction]on 08-12-2022 Hematocrit (Bld) [Volume fraction] 40.5 % 40-[address] [facility] Work Phone: Ketones Test strip Ql (U)on 08-12-2022 Ketones Ql (U) Negative Negative [facility] Work Phone: Laboratory - Chemistry and C hemistry - challengeon 08-12-2022 CO2 [Moles/Vol] 26.0 mmol/L 21.0-32.[address] [facility] Work Phone: [phone] Urea nitrogen/Creatinine [Mass ratio] 17.3 mg/mg 10-[address] [facility] Work Phone: [phone] Laboratory - Hematology and Cell countson 08-12-2022 Erythrocyte distribution width (RBC) [Entitic vol] 43.8 fL 35.1-43.[address] [facility] Work Phone: [phone] Erythrocyte distribution width (RBC) [Ratio] 13.2 % 11.6-14.[address] [facility] Work Phone: [phone] Immature granulocytes/100 WBC (Bld) 0.300 % 0.0-0.[address] [facility] Work Phone: [phone] Comment on above: IG% - Immature Granu locytes (promyelocytes, myelocytes and metamyelocytes) > 1% indicates that a LEFT SHIFT is Present. MCH (RBC) [Entitic mass] 30.1 pg 27.0-32.[address] [facility] Work Phone: [phone] Nucleated RBC/100 WBC (Bld) [Ratio] 0 % 0-[address] [facility] Work Phone: [phone] MCHC Auto (RBC) [Mass/Vol]on 08-12-2022 MCHC (RBC) [Mass/Vol] 33.3 g/dL 32-36 [facility] Work Phone: [phone] Mucus LM Ql (Urine sed)on Mucus Ql (Urine sed) 0 SEEN /hpf [facility] Work Phone: [phone] Nitrite Test strip Ql (U)on 08-12-2022 Nitrite Ql (U) Negative Negative [facility] Work Phone: [phone] Panel Informationon 08-12 Estimated Creatinine Clearance Calc 55.02 ml/min [facility] Work Phone: [phone] Estimated GFR (MDRD) Amer 69 mL/min >[address] [facility] Work Phone: [phone] Comment on above: GFR Calc Estimated GFR (MDRD) Non-Af Amer 57 mL/min >[address] [facility] Work Phone: [phone] Comment on above: Non- GFR Calc Platelets bldon 08-12-2022 Platelets (Bld) [#/Vol] 347 10*3/uL 150-[address] [facility] Work Phone: Protein Test strip Ql (U)on 08-12-2022 Protein Ql (U) Negative Negative [facility] Work Phone: Serum or plasma calcium doug urement (mass/volume)on 08-12-2022 Calcium [Mass/Vol] 9.1 mg/dL 8.5-10.1 [facility] Work Phone: Serum or plasma creatinine m easurement (mass/volume)on 08-12-2022 Creatinine [Mass/Vol] 1.33 mg/dL 0.70-1.30 [facility] Work Phone: Comment on above: The validity of the calculated GFR & GFRAA in patients over 70 years has not been determined. Clinical correlation is essential. Serum or plasma urea nitroge n measurement (mass/volume)on 08-12-2022 Urea nitrogen [Mass/Vol] 23 mg/dL 7-[address] [facility] Work Phone: Squamous epithelial cells de tection in urine sediment by light microscopyon 08-12-2022 Epithelial cells.squamous LM Ql (Urine sed) 0 SEEN /hpf 0-[address] [facility] Work Phone: Thin prep Papanicolaou smear with manual screeningon 08-12-2022 Thin prep Papanicolaou smear with manual screening 6 5-[address] [facility] Work Phone: Urine blood detectionon 07-23 RBC Ql (U) 25 /ul Negative [facility] Work Phone: RBC Ql (U) 0 SEEN /hpf 0-[address] [facility] Work Phone: Urine clarityon 08-12-2022 Clarity (U) Clear Clear [facility] Work Phone: Urine color determinationon 08-12-2022 Color (U) Yellow Yellow [facility] Work Phone: Urine glucose detectionon Glucose Ql (U) Normal mg/dl Normal [facility] Work Phone: Urine leukocyte esterase det ection by dipstickon 08-12-2022 Leukocyte esterase Test strip Ql (U) Negative Negative [facility] Work Phone: Urine pHon 08-12-2022 pH (U) 6.0 [pH] 5.0 - 8.[address] [facility] Work Phone: Urine sediment bacteria coun t by microscopy (number/high power field)on 08-12-2022 Bacteria LM.HPF (Urine sed) [#/Area] 0 /[HPF] None Seen [facility] Work Phone: Urine specific gravity measu rementon 08-12-2022 Specific gravity (U) [Rel density] 1.020 1.002-1.[address] [facility] Work Phone: Urobilinogen Auto test strip Ql (U)on 08-12-2022 Urobilinogen Ql (U) Normal mg/dl Normal [facility] Work Phone: [phone] Absolute lymphocyte counton 04-16-2022 Lymphocytes Auto (Unsp spec) [#/Vol] 1.66 10*3/uL 0.83-4.[address] [facility] Work Phone: Basophil percentageon 2021 Basophils/100 WBC (Bld) 0.5 % 0-[address] [facility] Work Phone: Bilirubin [Mass/Vol] 0.70 mg/dL 0.20-1.00 [facility] Work Phone: Comment on above: For patients on eltr ombopag therapy, use of Dimension [place] TBIL is not recommended. Chloride [Moles/Vol] 106 mmol/L 98-107 [facility] Work Phone: Eosinophils/100 WBC (Bld) 1.4 % 0-[address] [facility] Work Phone: Glucose [Mass/Vol] 90 mg/dL 74-106 [facility] Work Phone: Neutrophils (Bld) [#/Vol] 3.8 10*3/uL 2.0-7.[address] [facility] Work Phone: Neutrophils/100 WBC (Bld) 60.6 % 47-[address] [facility] Work Phone: Potassium [Moles/Vol] 4.0 mmol/L 3.5-5.1 [facility] Work Phone: Protein [Mass/Vol] 7.2 g/dL 6.4-8.2 [facility] Work [facility]: Sodium [Moles/Vol] 139 mmol/L 136-145 [facility] Work Phone: WBC (Bld) [#/Vol] 6.3 10*3/uL 4.4-11.0 [facility] Work Phone: Blood erythrocytes count (nu mber/volume)on 04-16-2022 RBC (Bld) [#/Vol] 4.82 10*6/uL 4.6-6.2 [facility] Work [facility]: Blood hemoglobin measurement (mass/volume)on 04-16-2022 Hemoglobin (Bld) [Mass/Vol] 14.1 g/dL 13.0-16.[address] [facility] Work Phone: Blood lymphocytes/100 leukoc yteson 04-16-2022 Lymphocytes/100 WBC (Bld) 26.5 % 19-[address] [facility] Work Phone: Blood monocytes/100 leukocyt eson 04-16-2022 Monocytes/100 WBC (Bld) 10.8 % 0-[address] [facility] Work Phone: [phone] Blood platelet mean volumeon 04-16-2022 Platelet mean volume (Bld) [Entitic vol] 8.6 fL 6.2-12.[address] [facility] Work Phone: Determination of erythrocyte mean corpuscular volume (MCV)on 04-16-2022 MCV (RBC) [Entitic vol] 90.5 fL 80-[address] [facility] Work Phone: Direct bilirubinon Bilirubin.direct [Mass/Vol] 0.15 mg/dL 0.00-0.[address] [facility] Work Phone: Hematocrit Auto (Bld) [Volum e fraction]on 04-16-2022 Hematocrit (Bld) [Volume fraction] 43.6 % 40-[address] [facility] Work Phone: INR in Blood by Coagulation assayon 04-16-2022 INR Coag (Bld) [Relative time] 1.0 {INR} [facility] Work Phone: Laboratory - Chemistry and C hemistry - challengeon 04-16-2022 ALP [Catalytic activity/Vol] 80 U/L 45-[address] [facility] Work Phone: [phone] ALT [Catalytic activity/Vol] 20 U/L 16-[address] [facility] Work Phone: [phone] CO2 [Moles/Vol] 28.0 mmol/L 21.0-32.[address] [facility] Work Phone: Globulin (S) [Mass/Vol] 3.7 g/dL 2.2-4.[address] [facility] Work Phone: [phone] Urea nitrogen/Creatinine [Mass ratio] 10.7 mg/mg 10-[address] [facility] Work Phone: Laboratory - Coagulationon 0 04-16-2022 aPTT Coag (Bld) [Time] 26.6 s 24.1-36.2 [facility] Work Phone: PT Coag (PPP) [Time] 12.7 s 11.7-14.9 [facility] Work Phone: [phone] Laboratory - Hematology and Cell countson 04-16-2022 Erythrocyte distribution width (RBC) [Entitic vol] 46.5 fL 35.1-43.[address] [facility] Work Phone: Erythrocyte distribution width (RBC) [Ratio] 14.0 % 11.6-14.[address] [facility] Work Phone: [phone] Immature granulocytes/100 WBC (Bld) 0.200 % 0.0-0.[address] [facility] Work Phone: Comment on above: IG% - Immature Granu locytes (promyelocytes, myelocytes and metamyelocytes) > 1% indicates that a LEFT SHIFT is Present. MCH (RBC) [Entitic mass] 29.3 pg 27.0-32.[address] [facility] Work Phone: Nucleated RBC/100 WBC (Bld) [Ratio] 0 % 0-[address] [facility] Work Phone: [phone] MCHC Auto (RBC) [Mass/Vol]on 04-16-2022 MCHC (RBC) [Mass/Vol] 32.3 g/dL 32-36 [facility] Work Phone: No Panel Informationon 04-16 Estimated Creatinine Clearance Calc 59.33 ml/min [facility] Work Phone: Estimated GFR (MDRD) Amer 77 mL/min >[address] [facility] Work Phone: Comment on above: GFR Calc Estimated GFR (MDRD) Non-Af Amer 64 mL/min >[address] [facility] Work Phone: [phone] Comment on above: Non- GFR Calc Platelets bldon 04-16-2022 Platelets (Bld) [#/Vol] 301 10*3/uL 150-[address] [facility] Work Phone: [phone] Serum or plasma albumin doug urement (mass/volume)on 04-16-2022 Albumin [Mass/Vol] 3.5 g/dL 3.2-5.0 [facility] Work Phone: [phone] Serum or plasma calcium doug urement (mass/volume)on 04-16-2022 Calcium [Mass/Vol] 9.2 mg/dL 8.5-10.1 [facility] Work Phone: [phone] Serum or plasma creatinine m easurement (mass/volume)on 04-16-2022 Creatinine [Mass/Vol] 1.21 mg/dL 0.70-1.30 [facility] Work Phone: [phone] Comment on above: The validity of the calculated GFR & GFRAA in patients over 70 years has not been determined. Clinical correlation is essential. Serum or plasma urea nitroge n measurement (mass/volume)on 04-16-2022 Urea nitrogen [Mass/Vol] 13 mg/dL 7-[address] [facility] Work Phone: Thin prep Papanicolaou smear with manual screeningon 04-16-2022 Thin prep Papanicolaou smear with manual screening 11 U/L 15-[address] [facility] Work Phone: Thin prep Papanicolaou smear with manual screening 5 5-[address] [facility] Work Phone: Absolute lymphocyte counton 04-14-2022 Lymphocytes Auto (Unsp spec) [#/Vol] 1.56 10*3/uL 0.83-4.[address] [facility] Work Phone: Basophil percentageon 2021 Basophils/100 WBC (Bld) 0.5 % 0-[address] [facility] Work Phone: Chloride [Moles/Vol] 107 mmol/L 98-107 [facility] Work Phone: Eosinophils/100 WBC (Bld) 1.8 % 0-[address] [facility] Work Phone: Glucose [Mass/Vol] 124 mg/dL 74-106 [facility] Work Phone: Comment on above: Fasting Glucose resu lt from 100 to 125 mg/dL suggests IMPAIRED HOMEOSTASIS per A.D.A. criteria. Neutrophils (Bld) [#/Vol] 5.1 10*3/uL 2.0-7.[address] [facility] Work Phone: Neutrophils/100 WBC (Bld) 69.5 % 47-[address] [facility] Work Phone: Potassium [Moles/Vol] 3.8 mmol/L 3.5-5.1 [facility] Work Phone: Sodium [Moles/Vol] 140 mmol/L 136-145 [facility] Work Phone: WBC (Bld) [#/Vol] 7.4 10*3/uL 4.4-11.0 [facility] Work Phone: Blood erythrocytes count (nu mber/volume)on 04-14-2022 RBC (Bld) [#/Vol] 4.61 10*6/uL 4.6-6.2 [facility] Work Phone: Blood hemoglobin measurement (mass/volume)on 04-14-2022 Hemoglobin (Bld) [Mass/Vol] 13.4 g/dL 13.0-16.[address] [facility] Work Phone: Blood lymphocytes/100 leukoc yteson 04-14-2022 Lymphocytes/100 WBC (Bld) 21.1 % 19-[address] [facility] Work Phone: [phone] Blood monocytes/100 leukocyt eson 04-14-2022 Monocytes/100 WBC (Bld) 7.0 % 0-[address] [facility] Work Phone: [phone] Blood platelet mean volumeon 04-14-2022 Platelet mean volume (Bld) [Entitic vol] 8.9 fL 6.2-12.[address] [facility] Work Phone: Determination of erythrocyte mean corpuscular volume (MCV)on 04-14-2022 MCV (RBC) [Entitic vol] 89.6 fL 80-[address] [facility] Work Phone: [phone] Hematocrit Auto (Bld) [Volum e fraction]on 04-14-2022 Hematocrit (Bld) [Volume fraction] 41.3 % 40-[address] [facility] Work Phone: Laboratory - Chemistry and C hemistry - challengeon 04-14-2022 CO2 [Moles/Vol] 27.0 mmol/L 21.0-32.[address] [facility] Work Phone: Urea nitrogen/Creatinine [Mass ratio] 8.8 mg/mg 10-[address] [facility] Work Phone: [phone] Laboratory - Drug toxicology on 04-14-2022 Amphetamines Ql (U) Negative <1000 ng/mL [facility] Work Phone: [phone] Benzodiazepines Ql (U) Negative < 200 ng/mL [facility] Work Phone: [phone] Cannabinoids Screen Ql (U) Positive < 50 ng/mL [facility] Work Phone: [phone] Cocaine Ql (U) Negative < 300 ng/mL [facility] Work Phone: [phone] Opiates Ql (U) Negative < 300 ng/mL [facility] Work Phone: [phone] Laboratory - Hematology and Cell countson 04-14-2022 Erythrocyte distribution width (RBC) [Entitic vol] 46.0 fL 35.1-43.[address] [facility] Work Phone: [phone] Erythrocyte distribution width (RBC) [Ratio] 14.2 % 11.6-14.[address] [facility] Work Phone: [phone] Immature granulocytes/100 WBC (Bld) 0.100 % 0.0-0.[address] [facility] Work Phone: [phone] Comment on above: IG% - Immature Granu locytes (promyelocytes, myelocytes and metamyelocytes) > 1% indicates that a LEFT SHIFT is Present. MCH (RBC) [Entitic mass] 29.1 pg 27.0-32.[address] [facility] Work Phone: [phone] Nucleated RBC/100 WBC (Bld) [Ratio] 0 % 0-[address] [facility] Work Phone: [phone] MCHC Auto (RBC) [Mass/Vol]on 04-14-2022 MCHC (RBC) [Mass/Vol] 32.4 g/dL 32-36 [facility] Work Phone: [phone] Panel Informationon 04-14 MDMA (Ecstasy) Screen Negative < 500 ng/mL [facility] Work Phone: [phone] Urine Barbiturates Screen Negative < 200 ng/mL [facility] Work Phone: [phone] Urine Drug Screen Comment [facility] Work Phone: [phone] Comment on above: CONFIRMATORY TESTING FOR ALL [...] Urine Methadone Screen Negative < 300 ng/mL [facility] Work Phone: [phone] Estimated Creatinine Clearance Calc 62.98 ml/min [facility] Work Phone: [phone] Estimated GFR (MDRD) Amer 83 mL/min >[address] [facility] Work Phone: [phone] Comment on above: GFR Calc Estimated GFR (MDRD) Non-Af Amer 68 mL/min >[address] [facility] Work Phone: [phone] Comment on above: Non- GFR Calc Ethyl Alcohol Level 10.0 mg/dL [facility] Work Phone: Comment on above: The serum:whole bloo d ethanol ratio is approximately 1.14and varies slightly with hematocrit. Medical Alcohol reference interval and critical value innon-tolerant individuals; 50 - 100 Impairment 100 Intoxication 100 - 250 Severe Poisoning 250 - 400 Deep/possible fatal coma Platelets bldon 04-14-2022 Platelets (Bld) [#/Vol] 311 10*3/uL 150-[address] [facility] Work Phone: [phone] Serum or plasma calcium doug urement (mass/volume)on 04-14-2022 Calcium [Mass/Vol] 9.3 mg/dL 8.5-10.1 [facility] Work Phone: [phone] Serum or plasma creatinine m easurement (mass/volume)on 04-14-2022 Creatinine [Mass/Vol] 1.14 mg/dL 0.70-1.30 [facility] Work Phone: Comment on above: The validity of the calculated GFR & GFRAA in patients over 70 years has not been determined. Clinical correlation is essential. Serum or plasma urea nitroge n measurement (mass/volume)on 04-14-2022 Urea nitrogen [Mass/Vol] 10 mg/dL 7-[address] [facility] Work Phone: [phone] Thin prep Papanicolaou smear with manual screeningon 04-14-2022 Thin prep Papanicolaou smear with manual screening 6 5-[address] [facility] Work Phone: Urine phencyclidine (PCP) de tectionon 04-14-2022 Phencyclidine Ql (U) Negative < 25 ng/mL [facility] Work Phone: EMERGENCY REPORTon 2 EMERGENCY REPORT [facility] EMERGENCY ROOM REPORT NAME ACCOUNT SEX AGE ADMIT DISCHARGE PT MED. RECORD# NUMBER DATE DATE TYPE KAMALJIT [id number] Prashant 67 03/26/22 03/26/22 3 LIAM Miller [id number] ROOM: ER DATE OF : 1955 DICTATING [...] Nawaf Toussaint DO 03/26/22 19:14 JOB #: [id number] Transcribed By: jean marie 03/27/22 07:37 Electronically signed by: KRISTIAN Toussaint DO 03/27/22 08:26 Page 2 of 2 LIAM MARI Emergency Room Report Normal [facility] CBC + DIFFon 03-26-2022 Baso # 0.00 x10EE3/UL Normal 0.00 - 0.10 [facility] Comment on above: Performed By: #### 2 94024 #### [facility],[address] [place] [address] Basophils/100 WBC (Bld) 0.2 % Normal 0.0 - 2.0 [facility] Comment on above: Performed By: #### 2 81042 #### [facility],[address] [place], [place] [id number] CBC + DIFF Normal [facility] Comment on above: Result Comment: CBC- COMPLETE BLOOD COUNT Performed By: #### 2 38998 #### [facility],[address] [place] [address] EO # 0.00 x10EE3/UL Normal 0.00 - 0.50 [facility] Comment on above: Performed By: #### 2 66487 #### [facility],[address] [place] [address] Eosinophils/100 WBC (Bld) 0.2 % Normal 0.0 - 7.0 [facility] Comment on above: Performed By: #### 2 21512 #### [place] [address] Erythrocyte distribution width (RBC) [Ratio] 14.8 % Normal 12.0 - 15.6 [facility] Comment on above: Performed By: #### 2 55320 #### [facility],[address] [place] [address] Hematocrit (Bld) [Volume fraction] 32.0 % Low 40.0 - 52.0 [facility] Comment on above: Performed By: #### 2 95308 #### [facility],[address] [place] [address] Hemoglobin (Bld) [Mass/Vol] 10.7 g/dL Low 13.0 - 17.5 [facility] Comment on above: Performed By: #### 2 34958 #### [facility],[address] [place], [place] [id number] Lymph # 0.60 x10EE3/UL Low 0.80 - 2.80 [facility] Comment on above: Performed By: #### 2 95775 #### [facility],[address] [place], [place] [address] Lymphocytes/100 WBC (Bld) 8.1 % Low 20.0 - 45.0 [facility] Comment on above: Performed By: #### 2 72590 #### [facility],[address] [place] [address] MANUAL DIFF N/A Normal [facility] Comment on above: Performed By: #### 2 87945 #### [facility],[address] [place] [address] MCH (RBC) [Entitic mass] 30 pg Normal 27 - 33 [facility] Comment on above: Performed By: #### 2 60990 #### [facility],[address] [place] [address] MCHC 33 X10 3 Normal 32 - 36 [facility] Comment on above: Performed By: #### 2 20619 #### [facility],[address] [place] [address] MCV (RBC) [Entitic vol] 89 fL Normal 81 - 98 [facility] Comment on above: Performed By: #### 2 58863 #### [facility],[address] [place] [address] [place] # 0.20 x10EE3/UL Normal 0.20 - 1.00 [facility] Comment on above: Performed By: #### 2 18555 #### [facility],[address] [place] [address] MONOS % 3.3 % Normal 0.0 - 10.0 [facility] Comment on above: Performed By: #### 2 38394 #### [facility],[address] [place] [address] Morphology Siva (Bld) [Interp] N/A Normal [facility] Comment on above: Result Comment: {CD] Performed By: #### 2 65586 #### [facility],[address] [place] [address] Neut # 6.50 x10EE3/UL Normal 1.50 - 7.10 [facility] Comment on above: Performed By: #### 2 97719 #### [facility],[address],[place] [address] Neutrophils/100 WBC (Bld) 88.2 % High 46.0 - 76.0 [facility] Comment on above: Performed By: #### 2 42509 #### [facility],[address] [place] [address] PLATELET 250 x10EE3/UL Normal 150 - 450 [facility] Comment on above: Performed By: #### 2 88011 #### [facility],[address] [place], [place] [address] Platelet mean volume (Bld) [Entitic vol] 6.9 fL Normal 6.4 - 10.5 [facility] Comment on above: Result Comment: AUTO MATED DIFFERENTIAL Performed By: #### 2 65452 #### [facility],[address] [place], [place] [address] RBC 3.61 x 10EE6/UL Low 4.50 - 6.00 [facility] Comment on above: Performed By: #### 2 49955 #### [facility],[address] [place], [place] [address] WBC 7.3 x 10EE3/UL Normal 4.5 - 10.8 [facility] Comment on above: Performed By: #### 2 38590 #### [facility],[address] [place] [address] CMP with eGFRon 03-26-2022 AGE 67 years Normal [facility] Comment on above: Performed By: #### 2 09364 #### [facility],[address] [place] [address] Albumin [Mass/Vol] 3.2 g/dL Low 3.4 - 5.0 [facility] Comment on above: Performed By: #### 2 70045 #### [facility],[address] [place] [address] Albumin/Globulin [Mass ratio] 1.0 {ratio} Normal 0.9 - 1.6 [facility] Comment on above: Performed By: #### 2 55768 #### [facility],[address] [place] [address] ALK PHOS 75 U/L Normal 46 - 116 [facility] Comment on above: Performed By: #### 2 56929 #### [facility],[address] [place] [address] ALT [Catalytic activity/Vol] 24 U/L Normal 16 - 63 [facility] Comment on above: Performed By: #### 2 21198 #### [facility],[address] [place] [address] Anion gap [Moles/Vol] 12 mmol/L Normal 10 - 20 [facility] Comment on above: Performed By: #### 2 48923 #### [facility],[address] [place] [address]8582 AST [Catalytic activity/Vol] 11 U/L Low 15 - 37 [facility] Comment on above: Performed By: #### 2 29753 #### [facility],[address] [place] [address] B/C RATIO 15 ratio Normal 0 - 30 [facility] Comment on above: Performed By: #### 2 26142 #### [facility],[address] [place] [address] Bilirubin [Mass/Vol] 0.5 mg/dL Normal 0.2 - 1.0 [facility] Comment on above: Performed By: #### 2 58534 #### [facility],[address] [place] [address] Calcium [Mass/Vol] 8.5 mg/dL Normal 8.5 - 10.1 [facility] Comment on above: Performed By: #### 2 47921 #### [facility],[address] [place] [address] Chloride [Moles/Vol] 104 mmol/L Normal 98 - 107 [facility] Comment on above: Performed By: #### 2 28717 #### [facility],[address] [place] [address] CMP with eGFR Normal [facility] Comment on above: Result Comment: COMP REHENSIVE METABOLIC PANEL Performed By: #### 2 02897 #### [facility],[address] [place] [address] CO2 [Moles/Vol] 27.2 mmol/L Normal 21.0 - 32.0 [facility] Comment on above: Performed By: #### 2 04251 #### [facility],[address] [place] [address] Creatinine [Mass/Vol] 1.07 mg/dL Normal 0.70 - 1.30 [facility] Comment on above: Performed By: #### 2 63762 #### [facility],[address] [place] [address] GFR/1.73 sq M.predicted among non-blacks MDRD (S/P/Bld) [Vol rate/Area] mL/min/{1.73_m2} Normal 60 - 999 [facility] Comment on above: Performed By: #### 2 56801 #### [facility],[address] [place] [address] Result Comment: ACCO RDING TO THE NATIONAL KIDNEY DISEASE EDUCATION PROGRAM(NKDE), A NORMAL eGFR IS A VALUE GREATER THAN OR EQUAL TO 60 ML/MIN/1.73 SQ METERS. CHRONIC KIDNEY DISEASE: <60mL/MIN/1.73 SQ METERS KIDNEY FAILURE: <15mL/MIN/1.73 SQ METERS THIS TEST SHOULD ONLY BE USED FOR PATIENTS 18 YEARS OF AGE AND OLDER. Globulin (S) [Mass/Vol] 3.3 g/dL Normal 1.5 - 3.8 [facility] Comment on above: Performed By: #### 2 11319 #### [facility],[address] [place] [address] Glucose [Mass/Vol] 115 mg/dL High 74 - 106 [facility] Comment on above: Performed By: #### 2 12250 #### [facility],[address] [place] [address] Potassium [Moles/Vol] 4.1 mmol/L Normal 3.5 - 5.1 [facility] Comment on above: Performed By: #### 2 61088 #### [facility],[address] [place] [address] Protein [Mass/Vol] 6.5 g/dL Normal 6.4 - 8.2 [facility] Comment on above: Performed By: #### 2 45248 #### [facility],[address] [place] [address] Sodium [Moles/Vol] 139 mmol/L Normal 136 - 145 [facility] Comment on above: Performed By: #### 2 51014 #### [facility],[address] [place] [address] Urea nitrogen [Mass/Vol] 16 mg/dL Normal 7 - 18 [facility] Comment on above: Performed By: #### 2 98233 #### [facility],[address] [place] [address] BRAIN W/O CONTRASTon 06-0 CT BRAIN W/O CONTRAST [address] [address] Patient: LIAM MARI Phone#: : 1955 Age: 67 Gender: M Pt. Type: ER Account: [id number] Location: [facility] Ordering: NAWAF TOUSSAINT Exam Date: 03/26/2022/13:47 Family Phys: Charge Code: [id number] Physician: Shasta Order #: [id number] DLP Dose#: 52.30 PROCEDURE: CT BRAIN WITHOUT [...] Casanova MD on 03/26/2022 at 18:36 Normal [facility] CT CERVICAL W/O CONTRASTon 0 03-26-2022 CT CERVICAL W/O CONTRAST [place] [address] Patient: LIAM MARI Phone#: : 1955 Age: 67 Gender: M Pt. Type: ER Account: [id number] Location: [facility] Ordering: NAWAF TOUSSAINT Exam Date: 03/26/2022/13:47 Family Phys: Charge Code: [id number] Physician: Shasta Order #: [id number] DLP Dose#: 12.40 PROCEDURE: CT CERVICAL WITHOUT [...] 67 Gender: M Pt. Type: ER Account: [id number] Location: 052 Ordering: [facility] Exam Date: 03/26/202213:47 Family Phys: Charge Code: [id number] Physician: Shasta Order #: [id number] DLP Dose#: 12.40 2. There is no evidence of acute fracture or subluxation. Dictated by: Albertina Casanova MD on 03/26/2022 at 18:33 Approved by: Albertina Casanova MD on 03/26/2022 at 18:35 Normal [facility] CT CHEST/ABD/PELVIS C+on CT CHEST/ABD/PELVIS C+ [place] [address] Patient: LIAM MARI Phone#: : 1955 Age: 67 Gender: M Pt. Type: ER Account: [id number] Location: 052 Ordering: [facility] Exam Date: 03/26/2022/13:51 Family Phys: Charge Code: [id number] Physician: Shasta Order #: [id number] DLP Dose#: 16.70 PROCEDURE: CT CHEST/ABD/PELVIS W [...] 67 Gender: M Pt. Type: ER Account: [id number] Location: [facility] Ordering: NAWAF TOUSSAINT Exam Date: 03/26/2022/13:51 Family Phys: Charge Code: [id number] Physician: Shasta Order #: [id number] DLP Dose#: 16.70 RETROPERITONEUM: Normal. No mass [...] Casanova MD on 03/26/2022 at 18:41 Normal [facility] KNEE COMPLETE LT MIN 4 VIEWS on 03-26-2022 KNEE COMPLETE LT MIN [address] [address] Patient: LIAM MARI Phone#: : 1955 Age: 67 Gender: M Pt. Type: ER Account: [id number] Location: 052 Ordering: NAWAF TOUSSAINT Exam Date: 03/26/2022/17:06 Family Phys: EUGENIO MAYEN Charge Code: [id number] Physician: Shasta Order #: [id number] DLP Dose#: PROCEDURE: X-RAY KNEE LT COMPLETE 4 VIEWS COMPARISON: [facility], XR, KNEE COMPLETE LT MIN 4 VIEWS, 04/21/2018, 14:08. INDICATIONS: Trauma. FINDINGS: BONES: Normal. No significant arthropathy or acute abnormality. SOFT TISSUES: Negative. No visible soft tissue swelling. EFFUSION: None visible. OTHER: Negative. CONCLUSION: No acute disease. Dictated by: Albertina Casanova MD on 03/26/2022 at 18:07 Approved by: Albertina Casanova MD on 03/26/2022 at 18:08 Normal [facility] No Panel Informationon 03-08 Culture Urine No growth at 48 hours. [facility] Work Phone: Absolute lymphocyte counton 01-12-2022 Lymphocytes Auto (Unsp spec) [#/Vol] 1.45 10*3/uL 0.83-4.[address] [facility] Work Phone: Amorphous sediment detection in urine sediment by light microscopyon 01-12-2022 Amorphous sediment LM Ql (Urine sed) 1+ URATE [facility] Work Phone: Basophil percentageon 2021 Basophil percentage 10-25 SEEN /hpf 0-[address] [facility] Work Phone: Basophils/100 WBC (Bld) 1.0 % 0-[address] [facility] Work Phone: Chloride [Moles/Vol] 104 mmol/L 98-107 [facility]: Eosinophils/100 WBC (Bld) 1.9 % 0-[address] [facility] Work Phone: Glucose [Mass/Vol] 104 mg/dL 74-106 [facility] Work Phone: Comment on above: Fasting Glucose resu lt from 100 to 125 mg/dL suggests IMPAIRED HOMEOSTASIS per A.D.A. criteria. Neutrophils (Bld) [#/Vol] 3.9 10*3/uL 2.0-7.[address] [facility] Work Phone: Neutrophils/100 WBC (Bld) 62.7 % 47-[address] [facility] Work Phone: Potassium [Moles/Vol] 3.4 mmol/L 3.5-5.1 [facility] Work Phone: Sodium [Moles/Vol] 138 mmol/L 136-145 [facility] Work Phone: WBC (Bld) [#/Vol] 6.2 10*3/uL 4.4-11.0 [facility] Work Phone: Bilirubin Test strip Ql (U)o n 01-12-2022 Bilirubin Ql (U) Negative Negative [facility] Work Phone: Blood erythrocytes count (nu mber/volume)on 01-12-2022 RBC (Bld) [#/Vol] 4.79 10*6/uL 4.6-6.2 [facility] Work Phone: Blood hemoglobin measurement (mass/volume)on 01-12-2022 Hemoglobin (Bld) [Mass/Vol] 14.6 g/dL 13.0-16.[address] [facility] Work Phone: Blood lymphocytes/100 leukoc yteson 01-12-2022 Lymphocytes/100 WBC (Bld) 23.5 % 19-[address] [facility] Work Phone: Blood monocytes/100 leukocyt eson 01-12-2022 Monocytes/100 WBC (Bld) 10.7 % 0-[address] [facility] Work Phone: [phone] Blood platelet mean volumeon 01-12-2022 Platelet mean volume (Bld) [Entitic vol] 8.8 fL 6.2-12.[address] [facility] Work Phone: [phone] Culture, urineon 01-12-2022 Bacteria identified Cx Nom (U) Culture exhibits no growth. [facility] Work Phone: [phone] Determination of erythrocyte mean corpuscular volume (MCV)on 01-12-2022 MCV (RBC) [Entitic vol] 88.9 fL 80-[address] [facility] Work Phone: [phone] Hematocrit Auto (Bld) [Volum e fraction]on 01-12-2022 Hematocrit (Bld) [Volume fraction] 42.6 % 40-[address] [facility] Work Phone: [phone] Ketones Test strip Ql (U)on 01-12-2022 Ketones Ql (U) Negative Negative [facility] Work Phone: [phone] Laboratory - Chemistry and C hemistry - challengeon 01-12-2022 CO2 [Moles/Vol] 30.0 mmol/L 21.0-32.[address] [facility] Work Phone: [phone] Urea nitrogen/Creatinine [Mass ratio] 11.6 mg/mg 10-[address] [facility] Work Phone: [phone] Laboratory - Hematology and Cell countson 01-12-2022 Erythrocyte distribution width (RBC) [Entitic vol] 42.7 fL 35.1-43.[address] [facility] Work Phone: [phone] Erythrocyte distribution width (RBC) [Ratio] 13.1 % 11.6-14.[address] [facility] Work Phone: [phone] Immature granulocytes/100 WBC (Bld) 0.200 % 0.0-0.[address] [facility] Work Phone: [phone] Comment on above: IG% - Immature Granu locytes (promyelocytes, myelocytes and metamyelocytes) > 1% indicates that a LEFT SHIFT is Present. MCH (RBC) [Entitic mass] 30.5 pg 27.0-32.[address] [facility] Work Phone: [phone] Nucleated RBC/100 WBC (Bld) [Ratio] 0 % 0-[address] [facility] Work Phone: [phone] MCHC Auto (RBC) [Mass/Vol]on 01-12-2022 MCHC (RBC) [Mass/Vol] 34.3 g/dL 32-36 [facility] Work Phone: [phone] Mucus LM Ql (Urine sed)on Mucus Ql (Urine sed) 0 SEEN /hpf [facility] Work Phone: [phone] Nitrite Test strip Ql (U)on 01-12-2022 Nitrite Ql (U) Negative Negative [facility] Work Phone: No Panel Informationon 01-12 Estimated Creatinine Clearance Calc 56.41 ml/min [facility] Work Phone: [phone] Estimated GFR (MDRD) Amer 72 mL/min >[address] [facility] Work Phone: [phone] Comment on above: GFR Calc Estimated GFR (MDRD) Non-Af Amer 59 mL/min >[address] [facility] Work Phone: [phone] Comment on above: Non- GFR Calc Platelets bldon 01-12-2022 Platelets (Bld) [#/Vol] 374 10*3/uL 150-[address] [facility] Work Phone: [phone] Protein Test strip Ql (U)on 01-12-2022 Protein Ql (U) 15 mg/dl Negative [facility] Work Phone: [phone] Serum or plasma calcium doug urement (mass/volume)on 01-12-2022 Calcium [Mass/Vol] 9.4 mg/dL 8.5-10.1 [facility] Work Phone: [phone] Serum or plasma creatinine m easurement (mass/volume)on 01-12-2022 Creatinine [Mass/Vol] 1.29 mg/dL 0.70-1.30 [facility] Work Phone: Comment on above: The validity of the calculated GFR & GFRAA in patients over 70 years has not been determined. Clinical correlation is essential. Serum or plasma urea nitroge n measurement (mass/volume)on 01-12-2022 Urea nitrogen [Mass/Vol] 15 mg/dL 7-[address] [facility] Work Phone: Squamous epithelial cells de tection in urine sediment by light microscopyon 01-12-2022 Epithelial cells.squamous LM Ql (Urine sed) 0-5 SEEN /hpf 0-[address] [facility] Work Phone: Thin prep Papanicolaou smear with manual screeningon 01-12-2022 Thin prep Papanicolaou smear with manual screening 4 5-[address] [facility] Work Phone: Urine blood detectionon - RBC Ql (U) 50 /ul Negative [facility] Work Phone: [phone] RBC Ql (U) 0-5 SEEN /hpf 0-[address] [facility] Work Phone: Urine clarityon 01-12-2022 Clarity (U) Sl Cldy Clear [facility] Work Phone: Comment on above: Previous reported re sult: Clear Edited by: ROSAURA on 01/12/22:1822 Urine color determinationon 01-12-2022 Color (U) Yellow Yellow [facility] Work Phone: Urine glucose detectionon Glucose Ql (U) Normal mg/dl Normal [facility] Work Phone: Urine leukocyte esterase det ection by dipstickon 01-12-2022 Leukocyte esterase Test strip Ql (U) 500 /ul Negative [facility] Work Phone: [phone] Urine pHon 01-12-2022 pH (U) 7.0 [pH] 5.0 - 8.[address] [facility] Work Phone: Urine sediment bacteria coun t by microscopy (number/high power field)on 01-12-2022 Bacteria LM.HPF (Urine sed) [#/Area] 0 /[HPF] None Seen [facility] Work Phone: Urine specific gravity measu rementon 01-12-2022 Specific gravity (U) [Rel density] 1.010 1.002-1.[address] [facility] Work Phone: Urobilinogen Auto test strip Ql (U)on 01-12-2022 Urobilinogen Ql (U) 1 mg/dl Normal [facility] Work Phone: Absolute lymphocyte counton 12-04-2021 Lymphocytes Auto (Unsp spec) [#/Vol] 1.43 10*3/uL 0.83-4.[address] [facility] Work Phone: Basophil percentageon 2021 Basophils/100 WBC (Bld) 0.6 % 0-[address] [facility] Work Phone: Chloride [Moles/Vol] 107 mmol/L 98-107 [facility] Work Phone: Eosinophils/100 WBC (Bld) 2.4 % 0-[address] [facility] Work Phone: Glucose [Mass/Vol] 107 mg/dL 74-106 [facility] Work Phone: Comment on above: Fasting Glucose resu lt from 100 to 125 mg/dL suggests IMPAIRED HOMEOSTASIS per A.D.A. criteria. Neutrophils (Bld) [#/Vol] 4.5 10*3/uL 2.0-7.[address] [facility] Work Phone: Neutrophils/100 WBC (Bld) 67.7 % 47-[address] [facility] Work Phone: Potassium [Moles/Vol] 3.9 mmol/L 3.5-5.1 [facility] Work Phone: Sodium [Moles/Vol] 138 mmol/L 136-145 [facility] Work Phone: WBC (Bld) [#/Vol] 6.7 10*3/uL 4.4-11.0 [facility] Work Phone: Blood erythrocytes count (nu mber/volume)on 12-04-2021 RBC (Bld) [#/Vol] 4.71 10*6/uL 4.6-6.2 [facility] Work Phone: Blood hemoglobin measurement (mass/volume)on 12-04-2021 Hemoglobin (Bld) [Mass/Vol] 14.4 g/dL 13.0-16.[address] [facility] Work Phone: Blood lymphocytes/100 leukoc yteson 12-04-2021 Lymphocytes/100 WBC (Bld) 21.4 % 19-[address] [facility] Work Phone: [phone] Blood monocytes/100 leukocyt eson 12-04-2021 Monocytes/100 WBC (Bld) 7.5 % 0-[address] [facility] Work Phone: Blood platelet mean volumeon 12-04-2021 Platelet mean volume (Bld) [Entitic vol] 8.3 fL 6.2-12.[address] [facility] Work Phone: Determination of erythrocyte mean corpuscular volume (MCV)on 12-04-2021 MCV (RBC) [Entitic vol] 90.2 fL 80-[address] [facility] Work Phone: Hematocrit Auto (Bld) [Volum e fraction]on 12-04-2021 Hematocrit (Bld) [Volume fraction] 42.5 % 40-[address] [facility] Work Phone: Laboratory - Chemistry and C hemistry - challengeon 12-04-2021 CO2 [Moles/Vol] 27.0 mmol/L 21.0-32.[address] [facility] Work Phone: Urea nitrogen/Creatinine [Mass ratio] 15.7 mg/mg 10-[address] [facility] Work Phone: [phone] Laboratory - Hematology and Cell countson 12-04-2021 Erythrocyte distribution width (RBC) [Entitic vol] 44.6 fL 35.1-43.[address] [facility] Work Phone: [phone] Erythrocyte distribution width (RBC) [Ratio] 13.4 % 11.6-14.[address] [facility] Work Phone: Immature granulocytes/100 WBC (Bld) 0.400 % 0.0-0.[address] [facility] Work Phone: [phone] Comment on above: IG% - Immature Granu locytes (promyelocytes, myelocytes and metamyelocytes) > 1% indicates that a LEFT SHIFT is Present. MCH (RBC) [Entitic mass] 30.6 pg 27.0-32.[address] [facility] Work Phone: [phone] Nucleated RBC/100 WBC (Bld) [Ratio] 0 % 0-[address] [facility] Work Phone: [phone] MCHC Auto (RBC) [Mass/Vol]on 12-04-2021 MCHC (RBC) [Mass/Vol] 33.9 g/dL 32-36 [facility] Work Phone: No Panel Informationon 12-04 Estimated Creatinine Clearance Calc 67.93 ml/min [facility] Work Phone: [phone] Estimated GFR (MDRD) Amer 82 mL/min >[address] [facility] Work Phone: [phone] Comment on above: GFR Calc Estimated GFR (MDRD) Non-Af Amer 68 mL/min >[address] [facility] Work Phone: Comment on above: Non- GFR Calc Platelets bldon 12-04-2021 Platelets (Bld) [#/Vol] 477 10*3/uL 150-[address] [facility] Work Phone: [phone] Serum or plasma calcium doug urement (mass/volume)on 12-04-2021 Calcium [Mass/Vol] 8.7 mg/dL 8.5-10.1 [facility] Work Phone: [phone] Serum or plasma creatinine m easurement (mass/volume)on 12-04-2021 Creatinine [Mass/Vol] 1.15 mg/dL 0.70-1.30 [facility] Work Phone: [phone] Comment on above: The validity of the calculated GFR & GFRAA in patients over 70 years has not been determined. Clinical correlation is essential. Serum or plasma urea nitroge n measurement (mass/volume)on 12-04-2021 Urea nitrogen [Mass/Vol] 18 mg/dL 7-[address] [facility] Work Phone: Thin prep Papanicolaou smear with manual screeningon 12-04-2021 Thin prep Papanicolaou smear with manual screening 4 5-[address] 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) Heartburn (787.1) (R12) Weight loss (783.21) (R63.4) Orders Abnormality of pancreatic duct, Weight loss MRI Pancreas w/wo Contrast; Status:Hold For - Scheduling; Requested for:12Jan2021; Perform:[facility]; Due:12Apr2021;Ordered; For:Abnormality of pancreatic duct, Weight loss; Ordered By:Connie East; Radiologist to Determine Optimal Study : Y Does the patient have a Cochlear Implant, Pacemaker, Defibrilator, Pacing Wire, Brain Aneurysm Clip, Implanted Nerve or Bone Graft Simulator, Implanted Breast Tissue Net Sql Developer, Glucose Monitor, or Neulasta Device? : No What are the patient's signs and symptoms? : Prominent pancreat duct 4 mm Heartburn Start: Omeprazole 20 MG Oral Tablet Delayed Release; TAKE 1 TABLET Daily 30 minutes before breakfast Rx By: Connie East; Dispense: 30 Days ; #:30 Tablet; Refill: 3;For: Heartburn; DAVID = N; Verified Transmission to [id number]; Last Updated By: [employer]; 01/12/2021 12:20:01 PM Patient Discussion/Summary 1. Outside [...] Complaint Abnormal CT scan History of Present [id number]-bzyk-fmp male presents today referred by Brian Rooney regarding an abnormal pancreatic duct finding on recent CT scan. Patient [facility] on 12/22/2020 for left [...] He has no dysphagia or odynophagia. Uses dwgn-kgk-axnhyiu Tums with short-term relief. He has never [...] Tablet Vitals Vital Signs Recorded: 12Jan2021 11:32AM Svjbwbcjeed25.7 F Heart Rate63 Height6 ft 1 in Txcknh869 lb 6 oz BMI Nbisnjboez02.82 BSA Calculated1.98 O2 Tjjcybvoty39 Physical Exam Const: Vital signs reviewed. ENMT: [...] right side while sitting and moving. Results/[facility] ED 12/22/2020: Sigmoid diverticulosis without diverticulitis, [...] Jan 12 2021 12:33PM EST (Author) Normal [employer] CR Humerus 2+ Views Lefton 0 06-26-2020 CR Humerus 2+ Views Left Patient Name: WINSTON MARI Diagnostic Radiology Exam Date/Time 06/26/2020 18:22:17 EDT Exam CR Humerus 2+ Views Left Ordering Physician MD LEONG JESSE Accession Number [id number] CPT4 Codes 41722 () Reason For Exam Injury Report EXAM: [...] Transcribed Date and Time: 06/26/2020 6:35 Normal [facility] CR Shoulder 2+ Views Lefton 06-26-2020 CR Shoulder 2+ Views Left Patient Name: WINSTON MARI Diagnostic Radiology Exam Date/Time 06/26/2020 18:22:17 EDT Exam CR Shoulder 2+ Views Left Ordering Physician MD LEONG JESSE Accession Number [id number] CPT4 Codes 72730 () Reason For Exam Injury Report EXAM: [...] R Transcribed Date and Time: 06/26/2020 6:31 [facility] CR Spine Lumbosacral 2 or 3 Viewson 06-26-2020 CR Spine Lumbosacral 2 or 3 Views Patient Name: WINSTON MARI Diagnostic Radiology Exam Date/Time 06/26/2020 18:22:17 EDT Exam CR Spine Lumbosacral 2 or 3 Views Ordering Physician MD LEONG JESSE Accession Number [id number] CPT4 Codes 02471 () Reason For Exam Injury Report EXAM: [...] R Transcribed Date and Time: 06/26/2020 6:36 [facility] CR Wrist Complete 3 Views Le fton 06-26-2020 CR Wrist Complete 3 Views Left Patient Name: WINSTON MARI Diagnostic Radiology Exam Date/Time 06/26/2020 18:22:17 EDT Exam CR Wrist Complete 3 Views Left Ordering Physician MD LEONG JESSE Accession Number [id number] CPT4 Codes 68465 () Reason For Exam Injury Report EXAM: [...] Transcribed Date and Time: 06/26/2020 6:38 Normal [facility] XR HUMERUS LEFT (MIN 2 VIEWS )on 06-26-2020 Patient Name: WINSTON MARI ---Diagnostic Radiology--- Exam Date/Time 06/26/2020 18:22:17 EDT Exam CR Humerus 2+ Views Left Ordering Physician MD LEONG JESSE Accession Number [id number] CPT4 Codes 92954 () Reason For Exam Injury Report EXAM: [...] R Transcribed Date and Time: 06/26/2020 6:[address] [facility]- [place], [place], [place] [facility] Incoming Radiology Results From [facility] - 06/26/2020 6:35 PM EDT Patient Name: WINSTON MARI ---Diagnostic Radiology--- Exam Date/Time 06/26/2020 18:22:17 EDT Exam CR Humerus 2+ Views Left Ordering Physician MD LEONG JESSE Accession Number [id number] CPT4 Codes 83540 () Reason For Exam Injury Report EXAM: [...] R Transcribed Date and Time: 06/26/2020 6:35 [place] [employer] [facility] XR LUMBAR SPINE (2-3 VIEWS)o n 06-26-2020 Patient Name: WINSTON MARI ---Diagnostic Radiology--- Exam Date/Time 06/26/2020 18:22:17 EDT Exam CR Spine Lumbosacral 2 or 3 Views Ordering Physician MD LEONG JESSE Accession Number [id number] CPT4 Codes 82639 () Reason For Exam Injury Report EXAM: [...] R Transcribed Date and Time: 06/26/2020 6:36 [employer] [place] [place] Incoming Radiology Results From [facility] - 06/26/2020 6:37 PM EDT Patient Name: WINSTON MARI ---Diagnostic Radiology--- Exam Date/Time 06/26/2020 18:22:17 EDT Exam CR Spine Lumbosacral 2 or 3 Views Ordering Physician MD LEONG JESSE Accession Number [id number] CPT4 Codes 80065 () Reason For Exam Injury Report EXAM: [...] R Transcribed Date and Time: 06/26/2020 6:36 [place], [place] XR Shoulder Left 2 VWon Patient Name: WINSTON MARI ---Diagnostic Radiology--- Exam Date/Time 06/26/2020 18:22:17 EDT Exam CR Shoulder 2+ Views Left Ordering Physician MD LEONG JESSE Accession Number [id number] CPT4 Codes 83128 () Reason For Exam Injury Report EXAM: [...] R Transcribed Date and Time: 06/26/2020 6:31 [place], [place] Incoming Radiology Results From [facility] - 06/26/2020 6:32 PM EDT Patient Name: WINSTON MARI ---Diagnostic Radiology--- Exam Date/Time 06/26/2020 18:22:17 EDT Exam CR Shoulder 2+ Views Left Ordering Physician MD LEONG JESSE Accession Number [id number] CPT4 Codes 77934 () Reason For Exam Injury Report EXAM: [...] R Transcribed Date and Time: 06/26/2020 6:31 [place] XR WRIST LEFT 3 VWon Patient Name: WINSTON MARI ---Diagnostic Radiology--- Exam Date/Time 06/26/2020 18:22:17 EDT Exam CR Wrist Complete 3 Views Left Ordering Physician MD LEONG JESSE Accession Number [id number] CPT4 Codes 49795 () Reason For Exam Injury Report EXAM: [...] R Transcribed Date and Time: 06/26/2020 6:38 [place], [place] Incoming Radiology Results From [facility] - 06/26/2020 6:39 PM EDT Patient Name: WINSTON MARI ---Diagnostic Radiology--- Exam Date/Time 06/26/2020 18:22:17 EDT Exam CR Wrist Complete 3 Views Left Ordering Physician MD LEONG JESSE Accession Number [id number] CPT4 Codes 05036 () Reason For Exam Injury Report EXAM: [...] R Transcribed Date and Time: 06/26/2020 6:38 [place] CT BRAIN WO IVCONon 11-03-[address] BRAIN WO IVCON * * *Final Report* * * DATE OF EXAM: Nov 03 2019 4:30PM [facility] 0504 - CT BRAIN WO IVCON / [...] acute intracranial findings. Chronic changes as described Museum Security Chief: PSCB Transcribe Date/Time: Nov 03 2019 4:35P Dictated by : MAXI BALES MD This examination was interpreted and the report reviewed and electronically signed by: MAXI BALES MD on Nov 03 2019 4:38PM EST Normal [facility] CT CERVICAL SPINE WO IVCONon 11-03-2019 CT CERVICAL SPINE WO IVCON * * *Final Report* * * DATE OF EXAM: Nov 03 2019 5:08PM [facility] 0505 - CT CERVICAL SPINE WO IVCON [...] vertebrae with counting from the craniocervical junction. Museum Security Chief: PSCB Transcribe Date/Time: Nov 03 2019 5:17P Dictated by : TIMUR CHAPA MD This examination was interpreted and the report reviewed and electronically signed by: TIMUR CHAPA MD on Nov 03 2019 5:25PM EST Normal [facility] CT LUMBAR SPINE WO IVCONon 0 11-03-2019 CT LUMBAR SPINE WO IVCON * * *Final Report* * * DATE OF EXAM: Nov 03 2019 4:43PM [facility] 0508 - CT LUMBAR SPINE WO IVCON [...] and assume there are 5 lumbar-type vertebrae. Museum Security Chief: CHRISTIN Transcribe Date/Time: Nov 03 2019 5:06P Dictated by : TIMUR CHAPA MD This examination was interpreted and the report reviewed and electronically signed by: TIMUR CHAPA MD on Nov 03 2019 5:14PM EST Normal [facility] CT THORACIC SPINE WO IVCONon 11-03-2019 CT THORACIC SPINE WO IVCON * * *Final Report* * * DATE OF EXAM: Nov 03 2019 4:44PM [facility] 0514 - CT THORACIC SPINE WO IVCON [...] months from the initial exam) is recommended. Museum Security Chief: PSCB Transcribe Date/Time: Nov 03 2019 5:25P Dictated by : TIMUR CHAPA MD This examination was interpreted and the report reviewed and electronically signed by: TIMUR CHAPA MD on Nov 03 2019 5:37PM EST ACTIONABLE Normal [facility] Comprehensive Panelon 2019 Anion gap [Moles/Vol] 13 mmol/L Normal 8-20 [facility] Comment on above: Performed By: #### L P14 #### [address] [address] Chloride [Moles/Vol] 103 mmol/L Normal 98-109 [facility] Comment on above: Result Comment: Test ing performed on an Munoz i-STAT. Performed By: #### L P14 #### [address] [address] Potassium [Moles/Vol] 3.9 mmol/L Normal 3.5-4.9 [facility] Comment on above: Result Comment: Test ing performed on an Munoz i-STAT. Performed By: #### L P14 #### [address] [address] Sodium [Moles/Vol] 139 mmol/L Normal 138-146 [facility] Comment on above: Result Comment: Test ing performed on an Munoz i-STAT. Performed By: #### L P14 #### [address] [address] Albumin [Mass/Vol] 3.9 g/dL Normal 3.4-5.0 [facility] Comment on above: Performed By: #### L P14 #### [facility] [address] [place], [place] [address] ALP [Catalytic activity/Vol] 89 U/L Normal 46-116 [facility] Comment on above: Performed By: #### L P14 #### [facility] [address] [place], [place] [address] ALT-SGPT Blood 33 U/L Normal 14-63 [facility] Comment on above: Performed By: #### L P14 #### [facility] [address] [place], [place] [address] AST-SGOT Blood 19 U/L Normal 15-37 [facility] Comment on above: Performed By: #### L P14 #### [facility] [address] [place], [place] [address] Bilirubin Ql (U) 0.7 mg/dL Normal 0.2-1.0 [facility] Comment on above: Performed By: #### L P14 #### [facility] [address] [place], [place] [address] Calcium [Mass/Vol] 9.3 mg/dL Normal 8.5-10.1 [facility] Comment on above: Performed By: #### L P14 #### [facility] [address] [place], [place] [address] CO2 Blood 27 mEq/L Normal 21-32 [facility] Comment on above: Performed By: #### L P14 #### [facility] [address] [place], [place] [address] Creatinine [Mass/Vol] 1.03 mg/dL Normal 0.67-1.17 [facility] Comment on above: Performed By: #### L P14 #### [facility] [address] [place], [place] [address] Glucose [Mass/Vol] 101 mg/dL High 70-99 [facility] Comment on above: Performed By: #### L P14 #### [facility] [address] [place], [place] [address] Protein [Mass/Vol] 7.9 g/dL Normal 6.4-8.2 [facility] Comment on above: Performed By: #### L P14 #### [facility] [address] [place], [place] [address] Urea nitrogen [Mass/Vol] 14 mg/dL Normal 7-18 [facility] Comment on above: Performed By: #### L P14 #### [facility] [address] [place] [address] Urea nitrogen/Creatinine [Mass ratio] 14 mg/mg Normal 10-20 [facility] Comment on above: Performed By: #### L P14 #### [facility] [address] [place] [address] Hemogram/Diffon 11-03-2019 Abs. Baso 0.03 thou/cmm Normal 0.00-0.08 [facility] Comment on above: Performed By: #### L CBCD #### [place] [address] Abs. [place] 0.80 thou/cmm Normal 0.20-1.00 [facility] Comment on above: Performed By: #### L CBCD #### [facility] [address] [place] [address] Abs. Neut (ANC) 4.63 thou/cmm Normal 3.00-5.67 [facility] Comment on above: Performed By: #### L CBCD #### [address] [address] Basophils/100 WBC (Bld) 0.4 % Normal [facility] Comment on above: Performed By: #### L CBCD #### [address] [address] Eosinophils (Bld) [#/Vol] 0.22 thou/cmm Normal 0.00-0.41 [facility] Comment on above: Performed By: #### L CBCD #### [address] [address] Eosinophils/100 WBC (Bld) 2.8 % Normal [facility] Comment on above: Performed By: #### L CBCD #### [facility] [address] [place], [place] [address] Erythrocyte distribution width (RBC) [Ratio] 12.9 % Normal 11.5-15.9 [facility] Comment on above: Performed By: #### L CBCD #### [address] [address] Hematocrit (Bld) [Volume fraction] 43.6 % Normal 42.0-52.0 [facility] Comment on above: Performed By: #### L CBCD #### [place] [address] Hemoglobin (Bld) [Mass/Vol] 14.5 g/dL Normal 14.0-18.0 [facility] Comment on above: Performed By: #### L CBCD #### [place] [address] Lymphocytes (Bld) [#/Vol] 2.22 thou/cmm Normal 1.50-3.65 [facility] Comment on above: Performed By: #### L CBCD #### [address] [address] Lymphocytes/100 WBC (Bld) 28.1 % Normal [facility] Comment on above: Performed By: #### L CBCD #### [place] [address] MCH (RBC) [Entitic mass] 29.8 pg Normal 27.0-31.0 [facility] Comment on above: Performed By: #### L CBCD #### [address] [address] MCHC (RBC) [Mass/Vol] 33.3 % Normal 32.0-36.0 [facility] Comment on above: Performed By: #### L CBCD #### [address] [address] MCV (RBC) [Entitic vol] 89.5 fL Normal 80.0-94.0 [facility] Comment on above: Performed By: #### L CBCD #### [address] [address] Monocytes/100 WBC (Bld) 10.1 % Normal [facility] Comment on above: Performed By: #### L CBCD #### [facility] [address] [place], [place] [address] Platelet mean volume (Bld) [Entitic vol] 8.6 fL Normal 7.1-10.5 [facility] Comment on above: Performed By: #### L CBCD #### [facility] [address] [place], [place] [address] Platelets (Bld) [#/Vol] 373 thou/cmm Normal 150-400 [facility] Comment on above: Performed By: #### L CBCD #### [facility] [address] [place], [place] [address] RBC (Bld) [#/Vol] 4.87 mil/cmm Normal 4.60-6.20 [facility] Comment on above: Performed By: #### L CBCD #### [place] [address] Seg Neutrophil 58.6 % Normal [facility] Comment on above: Performed By: #### L CBCD #### [facility] [address] [place], [place] [address] WBC (Bld) [#/Vol] 7.9 thou/cmm Normal 4.8-10.5 [facility] Comment on above: Performed By: #### L CBCD #### [place] [address] MDRD eGFRon 11-03-2019 GFR/1.73 sq M predicted among non-blacks MDRD (S/P/Bld) [Vol rate/Area] mL/min/{1.73_m2} Normal >60mL/min/ 1.73m2 [facility] Comment on above: Result Comment: If t he patient is , multiply the result by 1.210. Performed By: #### L GFR #### [facility] [address] [place] [address] Protimeon 11-03-2019 INR Coag (PPP) [Relative time] 1.01 {INR} Normal 0.90-1.30 [facility] Comment on above: Result Comment: Ashley min K Antagonist (VKA) Therapeutic Range: INR 2 to 3 (Target INR of 2.5) Note: For patients treated with VKA drugs, such as warfarin, the [employer] 2012 Guideline recommends [...] GH, et al. Chest 2012; 141:7S-47S Kasie RA, et al. [facility] 2017; 70: 252-289 Performed By: #### L PT #### [place] [address] PT Coag (PPP) [Time] 10.7 s Normal 9.7-13.0 [facility] Comment on above: Result Comment: . Performed By: #### L PT #### [place] [address] Urinalysis Routineon 020 Appearance (U) CLEAR Normal [facility] Comment on above: Performed By: #### L PT #### [place] [address] Bilirubin Urine Negative Normal Negative [facility] Comment on above: Performed By: #### L PT #### [place] [address] Color (U) YELLOW Normal [facility] Comment on above: Performed By: #### L PT #### [place] [address] Ep Cells Urine NONE Normal 0-5 [facility] Comment on above: Performed By: #### L PT #### [place] [address] Glucose Ql (U) Negative Normal Negative [facility] Comment on above: Performed By: #### L PT #### [facility] [address] [place] [address] Hemoglobin,Urine TRACE-LYSED Abnormal Negative [facility] Comment on above: Performed By: #### L PT #### [facility] [address] [place] [address] Ketone Urine Negative Normal Negative [facility] Comment on above: Performed By: #### L PT #### [place] [address] Leukocytes Esterase Negative Normal Negative [facility] Comment on above: Performed By: #### L PT #### [facility] [address] [place] [address] Nitrites Urine Negative Normal Negative [facility] Comment on above: Performed By: #### L PT #### [place] [address] pH (U) 7.0 [pH] Normal 5.0-8.0 [facility] Comment on above: Performed By: #### L PT #### [place] [address] Protein (U) [Mass/Vol] Negative Normal Negative [facility] Comment on above: Performed By: #### L PT #### [place] [address] RBC LM.HPF (Urine sed) [#/Area] 0-3 Normal 0-3 [facility] Comment on above: Performed By: #### L PT #### [place] [address] Specific [place], Ur 1.010 Normal 1.005-1 .03 0 [facility] Comment on above: Performed By: #### L PT #### [place] [address] Urobilinogen,Ur 0.2 EU/dL Normal 0.2-1.0 [facility] Comment on above: Performed By: #### L PT #### [place] [address] WBC LM.HPF (Urine sed) [#/Area] 0-2 Normal 0-5 [facility] Comment on above: Performed By: #### L PT #### [facility] [address] [place] [id number] XR ANKLE 3V AP/LAT/OBL LTon 11-03-2019 XR [...] of acute left ankle fracture or dislocation. Museum Security Chief: PSCB Transcribe Date/Time: Nov 03 2019 6:40P Dictated by : TIMUR CHAPA MD This examination was interpreted and the report reviewed and electronically signed by: TIMUR CHAPA MD on Nov 03 2019 6:42PM EST Normal [facility] XR FOOT 3V AP/LAT/OBL LTon 0 11-03-2019 XR FOOT 3V AP/LAT/OBL LT * * *Final Report* * * DATE OF EXAM: Nov 03 2019 5:18PM LDX 5336 - XR FOOT 3V AP/LAT/OBL LT / PROCEDURE REASON: Foot trauma, [place] neg, initial exam * * * * [...] degenerative changes at the first metatarsophalangeal joint. Museum Security Chief: CHRISTIN Transcribe Date/Time: Nov 03 2019 5:25P Dictated by : PATRICIA LAI MD This examination was interpreted and the report reviewed and electronically signed by: PATRICIA LAI MD on Nov 03 2019 5:28PM EST Normal [facility] XR FOOT 3V AP/LAT/OBL RTon 0 11-03-2019 XR FOOT 3V AP/LAT/OBL RT * * *Final Report* * * DATE OF EXAM: Nov 03 2019 5:18PM LDX 5337 - XR FOOT 3V AP/LAT/OBL RT / PROCEDURE REASON: Foot trauma, [place] neg, polytrauma, initial exam * * * [...] degenerative changes at the first metatarsophalangeal joint. Museum Security Chief: CHRISTIN Transcribe Date/Time: Nov 03 2019 5:25P Dictated by : PATRICIA LAI MD This examination was interpreted and the report reviewed and electronically signed by: PATRICIA LAI MD on Nov 03 2019 5:28PM EST Normal [facility] XR HIP 3V PELV+ AP/LAT LTon [...] are unremarkable. IMPRESSION: No fracture or dislocation. Museum Security Chief: PSCB Transcribe Date/Time: Nov 03 2019 5:28P Dictated by : PATRICIA LAI MD This examination was interpreted and the report reviewed and electronically signed by: PATRICIA LAI MD on Nov 03 2019 5:31PM EST Normal [facility] XR HIP 3V PELV+ AP/LAT RTon [...] are unremarkable. IMPRESSION: No fracture or dislocation. Museum Security Chief: KlickExB Transcribe Date/Time: Nov 03 2019 5:28P Dictated by : PATRICIA LAI MD This examination was interpreted and the report reviewed and electronically signed by: PATRICIA LAI MD on Nov 03 2019 5:31PM EST Normal [facility] XR KNEE 4V AP/LAT/OBLS LTon 11-03-2019 [...] of acute left knee fracture or dislocation. Museum Security Chief: CHRISTIN Transcribe Date/Time: Nov 03 2019 6:42P Dictated by : TIMUR CHAPA MD This examination was interpreted and the report reviewed and electronically signed by: TIMUR CHAPA MD on Nov 03 2019 6:45PM EST Normal [facility] ED NOTEon 11-01-2017 ED NOTE HNO ID: [id number] Author: Annette (Rn) Christo Hernandez RN Service: (none) Author Type: Registered Nurse Type: ED Notes Filed: 11/01/2017 5:02 PM Note Text: Chronic joint pains, swelling warmth on and off, now some swelling no redness or warmth, Normal [facility] ED NOTE HNO ID: [id number] thor: Annette Lugo) ALEXANDRA Borjaervice: (none)Author Type: Registered NurseType: ED NotesFiled: 11/01/2017 5:00 PMNote Text: DISCHARGE INSTRUCTIONS using teach back:Patient receptive to education,reviewed medications and percautions, f/u,reasons to return,prescription times .......2 percautions with pain medications Normal [facility] ED PROV NOTEon 11-01-2017 ED PROV NOTE HNO ID: [id number] thor: Gino Robins) Abdon: (none)Author Type: Physician AssistantType: ED Provider NotesFiled: 11/01/2017 4:34 PMNote Text:ED Provider NotePatient Name: Winston MariMRN: [id number] DATE: 11/01/17HistoryPatient presents with:Pain (foot): rightWrist PainLow [...] BRAIN SURGERY HX- OTHER ANEURYSM REPAIR [address] [facility]- Dr. 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), who verbalized understanding.This note was partially generated using [employer] voice recognition system,and there may be some [...] at time of disposition: stableSIGNATURE: Margaret Sidhu (Pa)11/01/17 1634 [facility] PROGRESSon 09-24-2017 PROGRESS HNO ID: [id number] thor: Jazz (Ct) FlexdavidMAYCOervice: (none)Author Type: Clinical TechnicianType: Progress NotesFiled: 09/24/2017 1:57 PMNote Text:NAME:Winston MariDATE: September 24, 2017CCF#: [id number] X-Ray(s): Lumbar AP / LAT / OBL COMPLETEDTECH ID SIGN: HARMEET ANTHONY [facility] XR LUMBAR PARS 4V AP/LAT/OBL X2on 09-24-2017 [...] L4-L5 and L5-S1.IMPRESSION:Degenera tive changes lower lumbar spine.Museum Security Chief: PSCB Transcribe Date/Time: Sep 24 2017 3:13PDictated by : JO ANN FUNG MDThis examination was interpreted and the report reviewed and electronically signed by: JO ANN FUNG MD on Sep 24 2017 3:14PM [id number] [facility] Culture, urine Bacteria identified Cx Nom (U) Culture exhibits no growth. [facility] Work Phone: Vital Signs Date Time Vital Sign Value Performing Clinician Facility 06-11-2025 10:17-0400 Body temperature 98.1 [degF] Dr. Eugenio Mayen DO Work Phone: [facility] 06-11-2025 10:17-0400 Diastolic blood pressure 77 mm[Hg] Dr. Eugenio Mayen DO Work Phone: [facility] 06-11-2025 10:17-0400 Heart rate 61 /min Dr. Eugenio Mayen DO Work Phone: [facility] 06-11-2025 10:17-0400 Respiratory rate 16 /min Dr. Eugenio Mayen DO Work Phone: [facility] 06-11-2025 10:17-0400 SaO2% (BldA) [Mass fraction] 99 % Dr. Eugenio Mayen DO [facility] [facility] 06-11-2025 10:17-0400 Systolic blood pressure 132 mm[Hg] Dr. Eugenio Mayen DO Work Phone: [facility] 06-11-2025 08:32-0400 Body height 180.[address] Eugenio Mayen DO Work Phone: [facility] 06-11-2025 08:32-0400 Body mass index (BMI) [Ratio] 20.4 kg/m2 Dr. Eugenio Mayen DO Work Phone: [facility] 06-11-2025 08:32-0400 Body weight 66.[address] Eugenio Mayen DO Work Phone: [facility] 05-31-2025 12:23-0400 Body temperature 97.9 [degF] Dr. Eugenio Mayen DO Work Phone: [facility] 05-31-2025 12:23-0400 Diastolic blood pressure 77 mm[Hg] Dr. Eugenio Mayen DO Work Phone: [facility] 05-31-2025 12:23-0400 Heart rate 78 /min Dr. Eugenio Mayen DO Work Phone: [facility] 05-31-2025 12:23-0400 Respiratory rate 14 /min Dr. Eugenio Mayen DO Work Phone: [facility] 05-31-2025 12:23-0400 SaO2% (BldA) [Mass fraction] 100 % Dr. Eugenio Mayen DO Work Phone: [facility] 05-31-2025 12:23-0400 Systolic blood pressure 125 mm[Hg] Dr. Eugenio Mayen DO Work Phone: [facility] 05-31-2025 09:27-0400 Body height 180.[address] Eugenio Mayen DO Work Phone: [facility] 05-31-2025 09:27-0400 Body mass index (BMI) [Ratio] 20.8 kg/m2 Dr. Eugenio Mayen DO Work Phone: [facility] 05-31-2025 09:27-0400 Body weight 67.[address] Eugenio Mayen DO Work Phone: [facility] 04-26-2025 12:39-0400 Body temperature 97.6 [degF] Dr. Eugenio Mayen DO Work Phone: [facility] 04-26-2025 12:39-0400 Diastolic blood pressure 80 mm[Hg] Dr. Eugenio Mayen DO Work Phone: [facility] 04-26-2025 12:39-0400 Heart rate 58 /min Dr. Eugenio Mayen DO Work Phone: [facility] 04-26-2025 12:39-0400 Respiratory rate 16 /min Dr. Eugenio Mayen DO Work Phone: [facility] 04-26-2025 12:39-0400 SaO2% (BldA) [Mass fraction] 100 % Dr. Eugenio Mayen DO Work Phone: [facility] 04-26-2025 12:39-0400 Systolic blood pressure 145 mm[Hg] Dr. Eugenio Mayen DO Work Phone: [facility] 04-26-2025 08:25-0400 Body height 180.[address] Eugenio Mayen DO Work Phone: [facility] 04-26-2025 08:25-0400 Body mass index (BMI) [Ratio] 22.1 kg/m2 Dr. Eugenio Mayen DO Work Phone: [facility] 04-26-2025 08:25-0400 Body weight 72.[address] Eugenio Mayen DO Work Phone: [facility] 04-04-2025 16:05-0400 Body temperature 98.1 [degF] Dr. Eugenio Mayen DO Work Phone: [facility] 04-04-2025 16:05-0400 Diastolic blood pressure 76 mm[Hg] Dr. Eugenio Mayen DO Work Phone: [facility] 04-04-2025 16:05-0400 Heart rate 59 /min Dr. Eugenio Mayen DO Work Phone: [facility] 04-04-2025 16:05-0400 Respiratory rate 14 /min Dr. Eugenio Mayen DO Work Phone: [facility] 04-04-2025 16:05-0400 SaO2% (BldA) [Mass fraction] 100 % Dr. Eugenio Mayen DO Work Phone: [facility] 04-04-2025 16:05-0400 Systolic blood pressure 140 mm[Hg] Dr. Eugenio Mayen DO Work Phone: [facility] 04-04-2025 11:53-0400 Body height 180.[address] Eugenio Mayen DO Work Phone: [facility] 04-04-2025 11:53-0400 Body mass index (BMI) [Ratio] 20.8 kg/m2 Dr. Eugenio Mayen DO Work Phone: [facility] 04-04-2025 11:53-0400 Body weight 67.[address] Eugenio Mayen DO Work Phone: [facility] 02-23-2025 06:33-0400 Diastolic blood pressure 92 mm[Hg] Go Rice MD Work Phone: [facility] 02-23-2025 06:33-0400 Heart rate 60 /min Go Rice MD Work Phone: [facility] 02-23-2025 06:33-0400 Respiratory rate 16 /min Go Rice MD Work Phone: [facility] 02-23-2025 06:33-0400 SaO2% (BldA) [Mass fraction] 100 % Go Rice MD Work Phone: [facility] 02-23-2025 06:33-0400 Systolic blood pressure 156 mm[Hg] Go Rice MD Work Phone: [facility] 02-23-2025 04:20-0400 Body height 180.3 cm Go Rice MD Work Phone: [facility] 02-23-2025 04:20-0400 Body mass index (BMI) [Ratio] 22.18 kg/m2 Go Rice MD Work Phone: [facility] 02-23-2025 04:20-0400 Body temperature 97.7 [degF] Go Rice MD Work Phone: [facility] 02-23-2025 04:20-0400 Body weight 72.12 kg Go Rice MD Work Phone: [facility] 01-03-2025 16:39-0400 Body height 180.[address] Eugenio Mayen DO Work Phone: [facility] 01-03-2025 16:39-0400 Body mass index (BMI) [Ratio] 22 kg/m2 Dr. Eugenio Mayen DO Work Phone: [facility] 01-03-2025 16:39-0400 Body temperature 97 [degF] Dr. Eugenio Mayen DO Work Phone: [facility] 01-03-2025 16:39-0400 Body weight 71.[address] Eugenio Mayen DO Work Phone: [facility] 01-03-2025 16:39-0400 Diastolic blood pressure 82 mm[Hg] Dr. Eugenio Mayen DO Work Phone: [facility] 01-03-2025 16:39-0400 Heart rate 68 /min Dr. Eugenio Mayen DO Work Phone: [facility] 01-03-2025 16:39-0400 Respiratory rate 15 /min Dr. Eugenio Mayen DO Work Phone: [facility] 01-03-2025 16:39-0400 SaO2% (BldA) [Mass fraction] 100 % Dr. Eugenio Mayen DO Work Phone: [facility] 01-03-2025 16:39-0400 Systolic blood pressure 146 mm[Hg] Dr. Eugenio Mayen DO Work Phone: [facility] 01-01-2025 17:09-0400 Body temperature 98 [degF] Dr. Eugenio Mayen DO Work Phone: [facility] 01-01-2025 17:09-0400 Diastolic blood pressure 74 mm[Hg] Dr. Eugenio Mayen DO Work Phone: [facility] 01-01-2025 17:09-0400 Heart rate 63 /min Dr. Eugenio Mayen DO Work Phone: [facility] 01-01-2025 17:09-0400 Respiratory rate 16 /min Dr. Eugenio Mayen DO Work Phone: [facility] 01-01-2025 17:09-0400 SaO2% (BldA) [Mass fraction] 99 % Dr. Eugenio Mayen DO Work Phone: [facility] 01-01-2025 17:09-0400 Systolic blood pressure 122 mm[Hg] Dr. Eugenio Mayen DO Work Phone: [facility] 01-01-2025 16:01-0400 Diastolic blood pressure 74 mm[Hg] Dr. Eugenio Mayen DO Work Phone: [facility] 01-01-2025 16:01-0400 Heart rate 63 /min Dr. Eugenio Mayen DO Work Phone: [facility] 01-01-2025 16:01-0400 Respiratory rate 16 /min Dr. Eugenio Mayen DO Work Phone: [facility] 01-01-2025 16:01-0400 SaO2% (BldA) [Mass fraction] 99 % Dr. Eugenio Mayen DO Work Phone: [facility] 01-01-2025 16:01-0400 Systolic blood pressure 122 mm[Hg] Dr. Eugenio Mayen DO Work Phone: [facility] 01-01-2025 14:02-0400 Body height 180.[address] Eugenio Mayen DO Work Phone: [facility] 01-01-2025 14:02-0400 Body mass index (BMI) [Ratio] 22.1 kg/m2 Dr. Eugenio Mayen DO Work Phone: [facility] 01-01-2025 14:02-0400 Body temperature 98.1 [degF] Dr. Eugenio Mayen DO Work Phone: [facility] 01-01-2025 14:02-0400 Body weight 72.[address] Eugenio Mayen DO Work Phone: [facility] 11-25-2024 12:52-0500 Body temperature 98 [degF] Dr. Eugenio Mayen DO Work Phone: [facility] 11-25-2024 12:52-0500 Diastolic blood pressure 85 mm[Hg] Dr. Eugenio Mayen DO Work Phone: [facility] 11-25-2024 12:52-0500 Heart rate 80 /min Dr. Eugenio Mayen DO Work Phone: [facility] 11-25-2024 12:52-0500 Respiratory rate 16 /min Dr. Eugenio Mayen DO Work Phone: [facility] 11-25-2024 12:52-0500 SaO2% (BldA) [Mass fraction] 98 % Dr. Eugenio Mayen DO Work Phone: [facility] 11-25-2024 12:52-0500 Systolic blood pressure 136 mm[Hg] Dr. Eugenio Mayen DO Work Phone: [facility] 11-25-2024 10:50-0500 Body mass index (BMI) [Ratio] 22.1 kg/m2 Dr. Eugenio Mayen DO Work Phone: [facility] 11-25-2024 10:50-0500 Body weight 72.[address] Eugenio Mayen DO Work Phone: [facility] 11-12-2024 12:16-0500 Body mass index (BMI) [Ratio] 22.4 kg/m2 Dr. Eugenio Mayen DO Work Phone: [facility] 11-12-2024 12:16-0500 Body weight 73.[address] Eugenio Mayen DO Work Phone: [facility] 11-05-2024 18:53-0500 Body temperature 98 [degF] Dr. Eugenio Mayen DO Work Phone: [facility] 11-05-2024 18:53-0500 Diastolic blood pressure 88 mm[Hg] Dr. Eugenio Mayen DO Work Phone: [facility] 11-05-2024 18:53-0500 Heart rate 70 /min Dr. Eugenio Mayen DO Work Phone: [facility] 11-05-2024 18:53-0500 Respiratory rate 18 /min Dr. Eugenio Mayen DO Work Phone: [facility] 11-05-2024 18:53-0500 SaO2% (BldA) [Mass fraction] 97 % Dr. Eugenio Mayen DO Work Phone: [facility] 11-05-2024 18:53-0500 Systolic blood pressure 143 mm[Hg] Dr. Eugenio Mayen DO Work Phone: [facility] 11-05-2024 14:16-0500 Body mass index (BMI) [Ratio] 21.9 kg/m2 Dr. Eugenio Mayen DO Work Phone: [facility] 11-05-2024 14:16-0500 Body weight 71.[address] Eugenio Mayen DO Work Phone: [facility] 2024 10:11-0400 Body temperature 97.6 [degF] [facility] 2024 10:11-0400 Diastolic blood pressure 78 mm[Hg] [facility] 2024 10:11-0400 Heart rate 64 /min [facility] 2024 10:11-0400 Respiratory rate 14 /min [facility] 2024 10:11-0400 SaO2% (BldA) [Mass fraction] 99 % [facility] 2024 10:11-0400 Systolic blood pressure 124 mm[Hg] [facility] 2024 08:36-0400 Body height 180.34 cm [facility] 2024 08:36-0400 Body mass index (BMI) [Ratio] 23.7 kg/m2 [facility] 2024 08:36-0400 Body weight 77.06 kg [facility] 10-09-2023 15:12-0500 Heart rate 79 /min [facility] 10-09-2023 15:12-0500 Respiratory rate 17 /min [facility] 10-09-2023 15:12-0500 SaO2% (BldA) [Mass fraction] 97 % [facility] 10-09-2023 13:13-0500 Body height 180.34 cm [facility] 10-09-2023 13:13-0500 Body mass index (BMI) [Ratio] 21.8 kg/m2 [facility] 10-09-2023 13:13-0500 Body temperature 98.1 [degF] [facility] 10-09-2023 13:13-0500 Body weight 71 kg [facility] 10-09-2023 13:13-0500 Diastolic blood pressure 98 mm[Hg] [facility] 10-09-2023 13:13-0500 Systolic blood pressure 139 mm[Hg] [facility] 08-22-2023 08:33-0400 Body height 180.3 cm Hamilton Agarwal MD Work Phone: [facility] 08-22-2023 08:33-0400 Body weight 76.66 kg Hamilton Agarwal MD Work Phone: [facility] 08-22-2023 08:33-0400 Diastolic blood pressure 79 mm[Hg] Hamilton Agarwal MD Work Phone: [facility] 08-22-2023 08:33-0400 Heart rate 76 /min Hamilton Agarwal MD Work Phone: [facility] 08-22-2023 08:33-0400 SaO2% (BldA) [Mass fraction] 96 % Hamilton Agarwal MD Work Phone: [facility] 08-22-2023 08:33-0400 Systolic blood pressure 142 mm[Hg] Hamilton Agarwal MD Work Phone: [facility] 08-09-2023 15:50-0400 Diastolic blood pressure 84 mm[Hg] [facility] 08-09-2023 15:50-0400 Heart rate 18 /min [facility] 08-09-2023 15:50-0400 SaO2% (BldA) [Mass fraction] 98 % [facility] 08-09-2023 15:50-0400 Systolic blood pressure 146 mm[Hg] [facility] 08-09-2023 12:20-0400 Body height 180.34 cm [facility] 08-09-2023 12:20-0400 Body mass index (BMI) [Ratio] 23.7 kg/m2 [facility] 08-09-2023 12:20-0400 Body temperature 97.6 [degF] [facility] 08-09-2023 12:20-0400 Body weight 77.06 kg [facility] 08-09-2023 12:20-0400 Respiratory rate 14 /min [facility] 05-31-2023 [id number] Body height 180.34 cm [facility] 05-31-2023 10:22-0400 Body mass index (BMI) [Ratio] 20.5 kg/m2 [facility] 05-31-2023 10:22-0400 Body temperature 97.1 [degF] [facility] 05-31-2023 10:22-0400 Body weight 66.67 kg [facility] 05-31-2023 10:22-0400 Diastolic blood pressure 76 mm[Hg] [facility] 05-31-2023 [id number] Heart rate 96 /min [facility] 05-31-2023 10:22-0400 Respiratory rate 14 /min [facility] 05-31-2023 10:22-0400 SaO2% (BldA) [Mass fraction] 100 % [facility] 05-31-2023 10:22-0400 Systolic blood pressure 125 mm[Hg] [facility] 03-29-2023 09:49-0400 Body height 185.4 cm Pro Almonte MD Work Phone: [facility] 03-29-2023 09:49-0400 Body temperature 98.8 [degF] Pro Almonte MD Work Phone: [facility] 03-29-2023 09:49-0400 Body weight 66.22 kg Pro Almonte MD Work Phone: [facility] 03-29-2023 09:49-0400 Diastolic blood pressure 68 mm[Hg] Pro Almonte MD Work Phone: [facility] 03-29-2023 09:49-0400 Heart rate 78 /min Pro Almonte MD Work Phone: [facility] 03-29-2023 09:49-0400 Respiratory rate 18 /min Pro Almonte MD Work Phone: [facility] 03-29-2023 09:49-0400 SaO2% (BldA) [Mass fraction] 97 % Pro Almonte MD Work Phone: [facility] 03-29-2023 09:49-0400 Systolic blood pressure 120 mm[Hg] Pro Almonte MD Work Phone: [facility] 02-11-2023 18:33-0400 Diastolic blood pressure 74 mm[Hg] [facility] 02-11-2023 18:33-0400 Heart rate 48 /min [facility] 02-11-2023 18:33-0400 Respiratory rate 13 /min [facility] 02-11-2023 18:33-0400 SaO2% (BldA) [Mass fraction] 100 % [facility] 02-11-2023 18:33-0400 Systolic blood pressure 162 mm[Hg] [facility] 02-11-2023 14:23-0400 Body temperature 97 [degF] [facility] 02-11-2023 14:17-0400 Body height 180.34 cm [facility] 02-11-2023 14:17-0400 Body mass index (BMI) [Ratio] 22.7 kg/m2 [facility] 02-11-2023 14:17-0400 Body weight 74 kg [facility] 01-14-2023 00:16-0400 Diastolic blood pressure 72 mm[Hg] [facility] 01-14-2023 00:16-0400 Heart rate 63 /min [facility] 01-14-2023 00:16-0400 Respiratory rate 15 /min [facility] 01-14-2023 00:16-0400 SaO2% (BldA) [Mass fraction] 98 % [facility] 01-14-2023 00:16-0400 Systolic blood pressure 131 mm[Hg] [facility] 01-13-2023 20:43-0400 Body height 180.34 cm [facility] 01-13-2023 20:43-0400 Body mass index (BMI) [Ratio] 20.9 kg/m2 [facility] 01-13-2023 20:43-0400 Body temperature 97.9 [degF] [facility] 01-13-2023 20:43-0400 Body weight 68.1 kg [facility] 09-19-2022 16:06-0500 Body height 180.3 cm Hubert Jett MD Work Phone: [facility] 09-19-2022 16:06-0500 Body temperature 98.49 [degF] Hubert Jett MD Work Phone: [facility] 09-19-2022 16:06-0500 Body weight 71.67 kg Hubert Jett MD Work Phone: [facility] 09-19-2022 16:06-0500 Diastolic blood pressure 74 mm[Hg] Hubert Jett MD Work Phone: [facility] 09-19-2022 16:06-0500 Heart rate 88 /min Hubert Jett MD Work Phone: [facility] 09-19-2022 16:06-0500 SaO2% (BldA) [Mass fraction] 96 % Hubert Jett MD Work Phone: [facility] 09-19-2022 16:06-0500 Systolic blood pressure 128 mm[Hg] Hubert Jett MD Work Phone: [facility] 09-16-2022 13:18-0500 Respiratory rate 18 /min [facility] 09-16-2022 10:56-0500 Body height 180.34 cm [facility] Work Phone: 09-16-2022 10:56-0500 Body mass index (BMI) [Ratio] 21.7 kg/m2 [facility] 09-16-2022 10:56-0500 Body temperature 96.8 [degF] [facility] 09-16-2022 10:56-0500 Body weight 70.63 kg [facility] 09-16-2022 10:56-0500 Diastolic blood pressure 88 mm[Hg] [facility] 09-16-2022 10:56-0500 Heart rate 85 /min [facility] 09-16-2022 10:56-0500 SaO2% (BldA) [Mass fraction] 100 % [facility] 09-16-2022 10:56-0500 Systolic blood pressure 121 mm[Hg] [facility] 08-12-2022 11:26-0400 Diastolic blood pressure 94 mm[Hg] [facility] Work Phone: 08-12-2022 11:26-0400 Heart rate 58 /min [facility] Work Phone: 08-12-2022 11:26-0400 Respiratory rate 16 /min [facility] Work Phone: 08-12-2022 11:26-0400 SaO2% (BldA) [Mass fraction] 100 % [facility] Work Phone: 08-12-2022 11:26-0400 Systolic blood pressure 136 mm[Hg] [facility] Work Phone: 08-12-2022 09:18-0400 Body mass index (BMI) [Ratio] 21.9 kg/m2 [facility] Work Phone: 08-12-2022 09:18-0400 Body temperature 97.7 [degF] [facility] Work Phone: 08-12-2022 09:18-0400 Body weight 71.2 kg [facility] Work Phone: 08-04-2022 15:20-0400 Diastolic blood pressure 81 mm[Hg] [facility] Work Phone: 08-04-2022 15:20-0400 Heart rate 65 /min [facility] Work Phone: 08-04-2022 15:20-0400 Respiratory rate 17 /min [facility] Work Phone: 08-04-2022 15:20-0400 SaO2% (BldA) [Mass fraction] 97 % [facility] Work Phone: 08-04-2022 15:20-0400 Systolic blood pressure 123 mm[Hg] [facility] Work Phone: 08-04-2022 12:42-0400 Body mass index (BMI) [Ratio] 22.1 kg/m2 [facility] Work Phone: 08-04-2022 12:42-0400 Body temperature 97 [degF] [facility] Work Phone: 08-04-2022 12:42-0400 Body weight 71.8 kg [facility] Work Phone: 04-27-2022 11:24-0400 Diastolic blood pressure 87 mm[Hg] [facility] Work Phone: 04-27-2022 11:24-0400 Heart rate 64 /min [facility] Work Phone: 04-27-2022 11:24-0400 Systolic blood pressure 130 mm[Hg] [facility] Work Phone: 04-27-2022 11:08-0400 Body height 180.34 cm [facility] Work Phone: 04-27-2022 11:08-0400 Body mass index (BMI) [Ratio] 21.4 kg/m2 [facility] Work Phone: 04-27-2022 11:08-0400 Body temperature 97.3 [degF] [facility] Work Phone: 04-27-2022 11:08-0400 Body weight 69.85 kg [facility] Work Phone: 04-27-2022 11:08-0400 Respiratory rate 16 /min [facility] Work Phone: 04-27-2022 11:08-0400 SaO2% (BldA) [Mass fraction] 97 % [facility] Work Phone: 04-24-2022 18:08-0400 Body temperature 97.3 [degF] [facility] Work Phone: 04-24-2022 18:08-0400 Diastolic blood pressure 77 mm[Hg] [facility] Work Phone: 04-24-2022 18:08-0400 Heart rate 69 /min [facility] Work Phone: 04-24-2022 18:08-0400 Respiratory rate 16 /min [facility] Work Phone: 04-24-2022 18:08-0400 SaO2% (BldA) [Mass fraction] 99 % [facility] Work Phone: 04-24-2022 18:08-0400 Systolic blood pressure 142 mm[Hg] [facility] Work Phone: 04-24-2022 18:06-0400 Body height 180.34 cm [facility] Work Phone: 04-24-2022 18:06-0400 Body mass index (BMI) [Ratio] 21.5 kg/m2 [facility] Work Phone: 04-24-2022 18:06-0400 Body weight 70 kg [facility] Work Phone: 04-16-2022 17:09-0400 Diastolic blood pressure 79 mm[Hg] [facility] Work Phone: 04-16-2022 17:09-0400 Heart rate 87 /min [facility] Work Phone: 04-16-2022 17:09-0400 Respiratory rate 16 /min [facility] Work Phone: 04-16-2022 17:09-0400 SaO2% (BldA) [Mass fraction] 99 % [facility] Work Phone: 04-16-2022 17:09-0400 Systolic blood pressure 124 mm[Hg] [facility] Work Phone: 04-16-2022 14:42-0400 Body height 180.34 cm [facility] Work Phone: 04-16-2022 14:42-0400 Body mass index (BMI) [Ratio] 21.4 kg/m2 [facility] Work Phone: 04-16-2022 14:42-0400 Body temperature 98.4 [degF] [facility] Work Phone: 04-16-2022 14:42-0400 Body weight 69.85 kg [facility] Work Phone: 04-14-2022 19:38-0400 Diastolic blood pressure 74 mm[Hg] [facility] Work Phone: 04-14-2022 19:38-0400 Heart rate 50 /min [facility] Work Phone: 04-14-2022 19:38-0400 Respiratory rate 16 /min [facility] Work Phone: 04-14-2022 19:38-0400 SaO2% (BldA) [Mass fraction] 99 % [facility] Work Phone: 04-14-2022 19:38-0400 Systolic blood pressure 153 mm[Hg] [facility] Work Phone: 04-14-2022 17:37-0400 Body height 180.34 cm [facility] Work Phone: 04-14-2022 17:37-0400 Body mass index (BMI) [Ratio] 21.4 kg/m2 [facility] Work Phone: 04-14-2022 17:37-0400 Body temperature 97.5 [degF] [facility] Work Phone: 04-14-2022 17:37-0400 Body weight 69.85 kg [facility] Work Phone: 04-02-2022 23:28-0400 Diastolic blood pressure 67 mm[Hg] [facility] Work Phone: 04-02-2022 23:28-0400 Heart rate 60 /min [facility] Work Phone: 04-02-2022 23:28-0400 Respiratory rate 18 /min [facility] Work Phone: 04-02-2022 23:28-0400 SaO2% (BldA) [Mass fraction] 98 % [facility] Work Phone: 04-02-2022 23:28-0400 Systolic blood pressure 131 mm[Hg] [facility] Work Phone: 04-02-2022 21:22-0400 Body height 180.34 cm [facility] Work Phone: 04-02-2022 21:22-0400 Body mass index (BMI) [Ratio] 21.4 kg/m2 [facility] Work Phone: 04-02-2022 21:22-0400 Body temperature 97.6 [degF] [facility] Work Phone: 04-02-2022 21:22-0400 Body weight 69.85 kg [facility] Work Phone: 04-02-2022 08:24-0400 Body temperature 97.52 [degF] SARY LICEA DO [facility] [facility] 04-[facility]-2022 08:24-0400 Diastolic blood pressure 98 mm[Hg] SARY LICEA DO [facility] 04-02-2022 08:24-0400 Heart rate 64 /min SARY LICEA DO [facility] 04-02-2022 08:24-0400 Respiratory rate 18 /min SARY LICEA DO [facility] 04-02-2022 08:24-0400 Systolic blood pressure 150 mm[Hg] SARY LICEA DO [facility] 03-24-2022 00:14-0400 Diastolic blood pressure 65 mm[Hg] [facility] Work Phone: 03-24-2022 00:14-0400 Heart rate 70 /min [facility] Work Phone: 03-24-2022 00:14-0400 Respiratory rate 15 /min [facility] Work Phone: 03-24-2022 00:14-0400 SaO2% (BldA) [Mass fraction] 97 % [facility] Work Phone: 03-24-2022 00:14-0400 Systolic blood pressure 117 mm[Hg] [facility] Work Phone: 03-23-2022 23:17-0400 Body height 180.34 cm [facility] Work Phone: 03-23-2022 23:17-0400 Body mass index (BMI) [Ratio] 21.4 kg/m2 [facility] Work Phone: 03-23-2022 23:17-0400 Body temperature 98 [degF] [facility] Work Phone: 03-23-2022 23:17-0400 Body weight 69.85 kg [facility] Work Phone: 03-09-2022 10:15-0400 Body height 185.42 cm [facility] Work Phone: 03-09-2022 10:15-0400 Body mass index (BMI) [Ratio] 20.2 kg/m2 [facility] Work Phone: 03-09-2022 10:15-0400 Body temperature 97.4 [degF] [facility] Work Phone: 03-09-2022 10:15-0400 Body weight 69.85 kg [facility] Work Phone: 03-09-2022 10:15-0400 Diastolic blood pressure 79 mm[Hg] [facility] Work Phone: 03-09-2022 10:15-0400 Heart rate 69 /min [facility] Work Phone: 03-09-2022 10:15-0400 Respiratory rate 15 /min [facility] Work Phone: 03-09-2022 10:15-0400 SaO2% (BldA) [Mass fraction] 99 % [facility] Work Phone: 03-09-2022 10:15-0400 Systolic blood pressure 120 mm[Hg] [facility] Work Phone: 03-08-2022 15:15-0400 Body height 185.4 cm Segun Joyner MD Work Phone: [facility] 03-08-2022 15:15-0400 Body mass index (BMI) [Ratio] 20.32 kg/m2 Segun Joyner MD Work Phone: [facility] 03-08-2022 15:15-0400 Body temperature 97.7 [degF] Segun Joyner MD Work Phone: [facility] 03-08-2022 15:15-0400 Body weight 69.85 kg Segun Joyner MD Work Phone: [facility] 03-08-2022 15:15-0400 Diastolic blood pressure 50 mm[Hg] Segun Joyner MD Work Phone: [facility] 03-08-2022 15:15-0400 Heart rate 68 /min Segun Joyner MD Work Phone: [facility] 03-08-2022 15:15-0400 Respiratory rate 16 /min Segun Joyner MD Work Phone: [facility] 03-08-2022 15:15-0400 SaO2% (BldA) [Mass fraction] 99 % Segun Joyner MD Work Phone: [facility] 03-08-2022 15:15-0400 Systolic blood pressure 99 mm[Hg] Segun Joyner MD Work Phone: [facility] 03-07-2022 15:31-0400 Diastolic blood pressure 86 mm[Hg] [facility] Work Phone: 03-07-2022 15:31-0400 Heart rate 88 /min [facility] Work Phone: 03-07-2022 15:31-0400 Respiratory rate 16 /min [facility] Work Phone: 03-07-2022 15:31-0400 Systolic blood pressure 139 mm[Hg] [facility] Work Phone: 03-07-2022 12:50-0400 Body height 185.42 cm [facility] Work Phone: 03-07-2022 12:50-0400 Body mass index (BMI) [Ratio] 20.2 kg/m2 [facility] Work Phone: 03-07-2022 12:50-0400 Body temperature 97.1 [degF] [facility] Work Phone: 03-07-2022 12:50-0400 Body weight 69.85 kg [facility] Work Phone: 03-07-2022 12:50-0400 SaO2% (BldA) [Mass fraction] 100 % [facility] Work Phone: 03-05-2022 12:38-0400 Body temperature 98.42 [degF] NAGA SOLIS MD [facility] 03-05-2022 12:38-0400 Diastolic blood pressure 87 mm[Hg] NAGA SOLIS MD [facility] 03-05-2022 12:38-0400 Heart rate 78 /min NAGA SOLIS MD [facility] 03-05-2022 12:38-0400 Respiratory rate 18 /min NAGA SOLIS MD [facility] 03-05-2022 12:38-0400 Systolic blood pressure 118 mm[Hg] NAGA SOLIS MD [facility] 03-01-2022 13:35-0400 Body temperature 98.24 [degF] LUZ ELENA MCNEILL MD [facility] 03-01-2022 13:35-0400 Diastolic blood pressure 93 mm[Hg] LUZ ELENA MCNEILL MD [facility] 03-01-2022 13:35-0400 Diastolic Blood Pressure NBP 93 1 LUZ ELENA MCNEILL MD [facility] 03-01-2022 13:35-0400 Heart rate 88 /min LUZ ELENA MCNEILL MD [facility] 03-01-2022 13:35-0400 Systolic blood pressure 136 mm[Hg] LUZ ELENA MCNEILL MD [facility] 03-01-2022 13:35-0400 Systolic Blood Pressure NBP 136 1 LUZ ELENA MCNEILL MD [facility] 02-27-2022 20:03-0400 Diastolic blood pressure 78 mm[Hg] [facility] Work Phone: 02-27-2022 20:03-0400 Heart rate 80 /min [facility] Work Phone: 02-27-2022 20:03-0400 Respiratory rate 18 /min [facility] Work Phone: 02-27-2022 20:03-0400 SaO2% (BldA) [Mass fraction] 96 % [facility] Work Phone: 02-27-2022 20:03-0400 Systolic blood pressure 130 mm[Hg] [facility] Work Phone: 02-27-2022 16:27-0400 Body height 180.34 cm [facility] Work Phone: 02-27-2022 16:27-0400 Body mass index (BMI) [Ratio] 22.3 kg/m2 [facility] Work Phone: 02-27-2022 16:27-0400 Body temperature 96.2 [degF] [facility] Work Phone: 02-27-2022 16:27-0400 Body weight 72.57 kg [facility] Work Phone: 02-26-2022 10:41-0400 Body temperature 98.78 [degF] DR ELLEN VALDOVINOS DO [facility] 02-26-2022 10:41-0400 Diastolic blood pressure 79 mm[Hg] DR ELLEN VALDOVINOS DO [facility] 02-26-2022 10:41-0400 Heart rate 83 /min DR ELLEN VALDOVINOS DO [facility] 02-26-2022 10:41-0400 Respiratory rate 18 /min DR ELLEN VALDOVINOS DO [facility] 02-26-2022 10:41-0400 Systolic blood pressure 137 mm[Hg] DR ELLEN VALDOVINOS DO [facility] 01-12-2022 19:50-0400 Diastolic blood pressure 90 mm[Hg] [facility] Work Phone: 01-12-2022 19:50-0400 Heart rate 54 /min [facility] Work Phone: 01-12-2022 19:50-0400 Respiratory rate 18 /min [facility] Work Phone: 01-12-2022 19:50-0400 SaO2% (BldA) [Mass fraction] 97 % [facility] Work Phone: 01-12-2022 19:50-0400 Systolic blood pressure 159 mm[Hg] [facility] Work Phone: 01-12-2022 17:05-0400 Body mass index (BMI) [Ratio] 20.2 kg/m2 [facility] Work Phone: 01-12-2022 17:05-0400 Body temperature 96.8 [degF] [facility] Work Phone: 01-12-2022 17:05-0400 Body weight 69.85 kg [facility] Work Phone: 12-31-2021 17:28-0500 Body temperature 96.8 [degF] MUNIR DAUGHERTY MD [facility] 12-31-2021 17:28-0500 Diastolic blood pressure 45 mm[Hg] MUNIR DAUGHERTY MD [facility] 12-31-2021 17:28-0500 Heart rate 60 /min MUNIR DAUGHERTY MD [facility] 12-31-2021 17:28-0500 Respiratory rate 18 /min MUNIR DAUGHERTY MD [facility] 12-31-2021 17:28-0500 Systolic blood pressure 90 mm[Hg] MUNIR DAUGHERTY MD [facility] 12-04-2021 14:56-0500 Respiratory rate 16 /min [facility] Work Phone: 12-04-2021 11:38-0500 Body mass index (BMI) [Ratio] 23.1 kg/m2 [facility] Work Phone: 12-04-2021 11:38-0500 Body temperature 96.9 [degF] [facility] Work Phone: 12-04-2021 11:38-0500 Body weight 75 kg [facility] Work Phone: 12-04-2021 11:38-0500 Diastolic blood pressure 96 mm[Hg] [facility] Work Phone: 12-04-2021 11:38-0500 Heart rate 67 /min [facility] Work Phone: 12-04-2021 11:38-0500 SaO2% (BldA) [Mass fraction] 99 % [facility] Work Phone: 12-04-2021 11:38-0500 Systolic blood pressure 143 mm[Hg] [facility] Work Phone: 12-04-2021 11:23-0500 Body temperature 97.52 [degF] AJIT BARDALES MD [facility] 12-04-2021 11:23-0500 Diastolic blood pressure 61 mm[Hg] AJIT BARDALES MD [facility] 12-04-2021 11:23-0500 Heart rate 67 /min AJIT BARDALES MD [facility] 12-04-2021 11:23-0500 Respiratory rate 18 /min AJIT BARDALES MD [facility] 12-04-2021 11:23-0500 Systolic blood pressure 157 mm[Hg] AJIT BARDALES MD [facility] 09-10-2021 11:30-0500 Body temperature 98.06 [degF] MUNIR DAUGHERTY MD [facility] 09-10-2021 11:30-0500 Diastolic blood pressure 87 mm[Hg] MUNIR DAUGHERTY MD [facility] 09-10-2021 11:30-0500 Heart rate 85 /min MUNIR DAUGHERTY MD [facility] 09-10-2021 11:30-0500 Respiratory rate 18 /min MUNIR DAUGHERTY MD [facility] 09-10-2021 11:30-0500 Systolic blood pressure 149 mm[Hg] MUNIR DAUGHERTY MD [facility] 08-28-2021 11:40-0500 Body temperature 98.6 [degF] NAGA SOLIS MD [facility] 08-28-2021 11:40-0500 Diastolic blood pressure 90 mm[Hg] NAGA SOLIS MD [facility] 08-28-2021 11:40-0500 Heart rate 70 /min NAGA SOLIS MD [facility] 08-28-2021 11:40-0500 Respiratory rate 18 /min NAGA SOLIS MD [facility] 08-28-2021 11:40-0500 Systolic blood pressure 152 mm[Hg] NAGA SOLIS MD [facility] 06-26-2020 17:25-0400 BMI (Body Mass Index) 22.96 kg/m2 [facility] 06-26-2020 17:25-0400 Body Temperature 98.1 [degF] [facility], 06-26-2020 17:25-0400 Body weight 78.93 kg [facility] [place] 06-26-2020 17:25-0400 BP Diastolic 79 mm[Hg] [facility] [place] 06-26-2020 17:25-0400 BP Systolic 145 mm[Hg] [facility] [place] 06-26-2020 17:25-0400 Height 185.4 cm Nas Leong [facility] , [place] 06-26-2020 17:25-0400 Pulse (Heart Rate) 55 /min Nas Leong [facility], [place] 06-26-2020 17:25-0400 Pulse Oximetry 99 % Nas Manzo [facility] , [place] 06-26-2020 17:25-0400 Respiratory Rate 16 /min Nas Manzo [facility] [place] Encounters Encounter Date Encounter Type Care Provider Facility Start: 06-11-2025 End: 06-11-2025 Emergency department patient visit Dr. Eugenio Mayen DO Work Phone: -Emergency Department Work Phone: Start: 05-31-2025 End: 05-31-2025 Emergency department patient visit Dr. Eugenio Mayen DO Work Phone: -Emergency Department Work Phone: Start: 05-29-2025 End: 05-29-2025 ambulatory EUGENIO MAYEN DO Facility:[facility] [place] Start: 05-29-2025 End: 05-29-2025 Patient encounter procedure [facility] Start: 05-05-2025 ambulatory EUGENIO MAYEN DO Facili ty:[facility] Start: 04-27-2025 ambulatory EUGENIO MAYEN DO Facili ty:[facility] Start: 04-26-2025 End: 04-26-2025 Emergency department patient visit Dr. Eugenio Mayen DO Work Phone: -Emergency Department Work Phone: Start: 04-04-2025 End: 04-04-2025 Emergency department patient visit Dr. Eugenio Mayen DO Work Phone: -Emergency Department Work Phone: Start: 04-02-2025 End: 04-02-2025 ambulatory EUGENIO MAYEN DO Facility:[facility] [place] Start: 04-02-2025 End: 04-02-2025 Patient encounter procedure [facility] Start: 03-19-2025 End: 03-19-[address] Tyrone Fagan MD -[facility] Start: 03-19-2025 End: 03-19-[address] Eugenio Mayen DO Work Phone: [facility] Work Phone: Start: 02-23-2025 Emergency department patient visit GO RICE [facility] Start: 02-23-2025 End: 02-23-2025 Emergency department patient visit Go Rice MD Work Phone: [facility] Comment on above: Chest pain, unspecif ied type (Primary Dx); Pain of right lower extremity; Acute right-sided low back pain with right-sided sciatica Start: 01-26-2025 End: 01-26-2025 ambulatory EUGENIO MAYEN DO Facility[facility] [place] Start: 01-23-2025 End: 01-23-2025 ambulatory EUGENIO MAYEN DO Facility[facility] Start: 01-14-2025 ambulatory EUGENIO MAYEN DO Facili ty:[facility] Start: 01-08-2025 End: 01-08-2025 ambulatory EUGENIO MAYEN DO Facility[facility] Start: 01-03-2025 End: 01-03-2025 Emergency department patient visit Dr. Eugenio Mayen DO Work Phone: -Emergency Department Work Phone: Start: 01-01-2025 End: 01-01-2025 Emergency department patient visit Dr. Eugenio Mayen DO Work Phone: -Emergency Department Work Phone: Start: 12-22-2024 End: 12-22-[address] Eugenio Mayen DO Work Phone: [facility] Work Phone: Start: 12-22-2024 End: 12-22-2024 Patient encounter procedure Aiyana PRINCE -[facility] Work Phone: Start: 12-22-2024 End: 12-22-2024 ambulatory Eugenio Halko Facility:[facility] Start: 12-18-2024 End: 12-22-2024 ambulatory EUGENIO VITALYKO DO Facility:[facility] Start: 12-15-2024 End: 12-15-[address] Jacob Dominguez MD -[facility] Work Phone: Start: 12-15-2024 End: 12-15-2024 ambulatory Eugenio Vitalyko Facility:[facility] Start: 12-08-2024 End: 12-08-[address] Jacob Dominguez MD -[facility] Work Phone: Start: 12-08-2024 End: 12-08-2024 ambulatory Eugenio Vitalyko Facility:[facility] Start: 11-25-2024 End: 11-25-2024 Emergency department patient visit Dr. Abril Velarde DO -Emergency Department Work Phone: Start: 11-18-2024 End: 11-18-2024 Patient encounter procedure Aiyana PRINCE -[facility] Work Phone: Start: 11-18-2024 End: 11-18-2024 ambulatory Eugenio Vitalyko Facility:[facility] Start: 11-13-2024 End: 11-13-[address] Jacob Dominguez MD -[facility] Work Phone: Start: 11-13-2024 End: 11-13-2024 ambulatory Eugenio Faheem Facility:[facility] Start: 11-05-2024 End: 11-05-2024 Emergency department patient visit Dr. Dennis Strickland DO -Emergency Department Work Phone: Start: 09-22-2024 End: 11-24-2024 ambulatory UEGENIO VITALYKO DO Facility[facility] Start: 09-22-2024 End: 11-24-2024 Physical therapy management [facility] Start: 09-11-2024 End: 09-11-2024 ambulatory EUGENIO VITALYKO DO Facility[facility] Start: 09-11-2024 End: 09-11-2024 Patient encounter procedure EUGENIO MAYEN DO [facility] Start: 07-06-2024 End: 07-06-2024 Emergency department patient visit Eugenio Mayen Facility:[facility] Start: 07-01-2024 End: 07-01-2024 Emergency department patient visit Eugenio Mayen Facility:[facility] Start: 2024 End: 2024 [facility] Start: 12-07-2023 End: 12-08-2023 ambulatory EUGENIO MAYEN DO Facility:[facility] Start: 12-07-2023 End: 12-07-2023 Patient encounter procedure EUGENIO MAYEN DO [facility] Start: 10-10-2023 ambulatory EUGENIO MAYEN DO Facili ty:[facility] Start: 10-09-2023 End: 10-09-2023 [facility] Start: 08-29-2023 ambulatory EUGENIO MAYEN DO Facili ty:[facility] Start: 08-22-2023 ambulatory EUGENIO FAHEEM DO Facili ty:[facility] Start: 08-22-2023 End: 08-22-2023 Patient encounter procedure Hamilton Agarwal MD Work Phone: Pain Management Comment on above: Chronic pain syndrom e (Primary Dx) Start: 08-22-2023 End: 08-23-2023 ambulatory HAMILTON AGARWAL Facility:[id number] Start: 08-16-2023 ambulatory EUGENIO MAYEN DO Facili ty:[facility] Start: 08-10-2023 End: 08-11-2023 ambulatory EUGENIO MAYEN DO Facility:[facility] Start: 08-10-2023 End: 08-10-2023 Patient encounter procedure EU[facility]IO MAY[facility] Start: 08-09-2023 End: 08-09-2023 Emergency department patient visit [facility] Work Phone: Start: 06-21-2023 ambulatory HAMILTON Resendez lity:[phone] Start: 05-31-2023 End: 05-31-2023 Emergency department patient visit [facility] Work Phone: Start: 05-23-2023 Telephone encounter Pro benítez MD Work Phone: [facility] Comment on above: Patient Question Start: 05-10-2023 End: 05-10-2023 ambulatory SARAI HALKO IV Facility:[facility] Start: 04-30-2023 End: 04-30-2023 ambulatory SARAI HALKO IV Facility:[facility] Start: 04-30-2023 Telephone encounter Kadeem salas MD Work Phone: Pain Management Comment on above: Appointment Start: 04-26-2023 Telephone encounter [facility] Provider Jasvir salas Management Comment on above: Future Appointment ( Left Voice Mail) Start: 03-29-2023 End: 03-29-2023 ambulatory SARAI HALKO IV Facility:[facility] Start: 03-29-2023 End: 03-29-2023 Patient encounter procedure Pro Almonte MD Work Phone: [facility] Comment on above: Other fracture of un specified lumbar vertebra, initial encounter for closed fracture (HCC) (Primary Dx); Lumbar burst fracture, sequela Start: 03-27-2023 Telephone encounter Pro benítez MD Work Phone: [facility] Comment on above: Appointment Start: 03-26-2023 Telephone encounter Pro benítez MD Work Phone: [facility] Comment on above: Orders Start: 02-20-2023 End: 02-20-2023 Emergency department patient visit SARAI HALKO IV Facility:[facility] Start: 02-11-2023 End: 02-13-2023 Evaluation and management of inpatient PRETTY Duque BUZZ Facility:[facility] Start: 02-11-2023 End: 02-11-2023 Emergency department patient visit [facility] Start: 01-13-2023 End: 01-14-2023 Emergency department patient visit [facility] Start: 12-15-2022 End: 12-16-2022 ambulatory EUGENIO MAYEN DO Facility:[facility] Start: 12-15-2022 End: 12-15-2022 Patient encounter procedure EUGENIO MAYEN DO [facility] Start: 12-13-2022 End: 12-14-2022 ambulatory EUGENIO MAYEN DO Facility:[facility] Start: 12-13-2022 End: 12-13-2022 Patient encounter procedure EUGENIO MAYEN DO [facility] Start: 12-04-2022 End: 12-04-2022 Patient encounter procedure EUGENIO MAYEN DO [facility] Start: 10-02-2022 End: 10-02-2022 Patient encounter procedure EUGENIO MAYEN DO [facility] Start: 09-19-2022 End: 09-19-2022 ambulatory EUGENIO MAYEN IV Facility:[facility] Start: 09-19-2022 End: 09-19-2022 Patient encounter procedure Hubert Jett MD Work Phone: General Surgery Comment on above: Anal fissure (Primar y Dx) Start: 09-19-2022 End: 09-19-2022 Patient encounter procedure DOUG RM DO [facility] Start: 09-16-2022 End: 09-16-2022 Emergency department patient visit [facility] Start: 09-04-2022 End: 09-04-2022 Patient encounter procedure EUGENIO MAYEN DO [facility] Start: 08-12-2022 End: 08-12-2022 Emergency department patient visit [facility] Start: 08-04-2022 End: 08-04-2022 [facility] Start: 07-24-2022 End: 07-24-2022 Patient encounter procedure EUGENIO MAYEN DO [facility] Start: 04-27-2022 End: 04-27-2022 Emergency department patient visit [facility] Start: 04-24-2022 End: 04-24-2022 Emergency department patient visit [facility] Start: 04-16-2022 End: 04-16-2022 Emergency department patient visit [facility] Start: 04-14-2022 End: 04-14-2022 Emergency department patient visit [facility] Start: 04-02-2022 End: 04-03-2022 Emergency department patient visit [facility] Start: 04-02-2022 End: 04-02-2022 Emergency department patient visit SARY LICEA DO [facility] Start: 03-26-2022 End: 03-26-2022 Emergency department patient visit DR NAWAF TOUSSAINT [facility] Start: 03-23-2022 End: 03-24-2022 Emergency department patient visit [facility] Start: 03-09-2022 End: 03-09-2022 Emergency department patient visit [facility] Start: 03-08-2022 End: 03-12-2022 Outreach Lab EUGENIO MAYEN DO [facility] Start: 03-08-2022 End: 03-08-2022 Emergency department patient visit Segun Joyner MD Work Phone: [facility] Comment on above: Acute sciatica (Prim darron Dx) Start: 03-07-2022 End: 03-07-2022 Emergency department patient visit [facility] Start: 03-07-2022 End: 03-07-2022 Patient encounter procedure MARCELL RAMSEY MD [facility] Start: 03-05-2022 End: 03-05-2022 Emergency department patient visit NAGA SOLIS MD [facility] Start: 03-01-2022 End: 03-01-2022 Emergency department patient visit LUZ ELENA MCNEILL MD [facility] Start: 02-27-2022 End: 02-27-2022 Emergency department patient visit [facility] Start: 02-27-2022 End: 02-27-2022 Emergency department patient visit SARY LICEA DO [facility] Start: 02-26-2022 End: 02-26-2022 Emergency department patient visit DR ELLEN VALDOVINOS DO [facility] Start: 02-17-2022 End: 02-17-2022 Patient encounter procedure EUGENIO MAYEN DO [facility] Start: 01-12-2022 End: 01-12-2022 Emergency department patient visit [facility] Start: 12-31-2021 End: 12-31-2021 Emergency department patient visit MUNIR DAUGHERTY MD [facility] Start: 12-04-2021 End: 12-04-2021 Emergency department patient visit [facility] Start: 12-04-2021 End: 12-04-2021 Emergency department patient visit AJIT BARDALES MD [facility] Start: 09-10-2021 End: 09-10-2021 Emergency department patient visit MUNIR DAUGHERTY MD [facility] Start: 08-28-2021 End: 08-28-2021 Emergency department patient visit NAGA SOLIS MD [facility] Start: 04-15-2021 Rx Renewal Eugenio asher [facility] Work Phone: Start: 06-26-2020 End: 06-26-2020 Emergency department patient visit Nas Leong Work Phone: [facility] Comment on above: Lumbar contusion, in itial encounter (Primary Dx); Sprain of left wrist, initial encounter Start: 11-01-2017 End: 11-01-2017 Emergency department patient visit [facility] Start: 09-24-2017 End: 09-24-2017 Ambulatory [facility] Start: 05-29-2017 Ambulatory [facility] Start: 05-28-2017 Ambulatory [facility] Procedures Date Procedure Procedure Detail Performing Clinician Start: 05-31-[address] Eugenio Mayen DO Work Phone: Start: 05-31-2025 CT cervical spine wi thout contrast Dr. Eugenio Mayen DO Work Phone: Start: 05-31-2025 CT of head without contrast Dr. Eugenio Mayen DO Work Phone: Start: 05-31-2025 CT of thorax, abdome n and pelvis with contrast Dr. Eugenio Mayen DO Work Phone: Start: 04-26-2025 Plain chest X-ray Dr. Prashant [...] 04-04-2025 Plain X-ray of shoulder Dr. Eugenio Myaen DO Work Phone: Start: 03-19-2025 X-ray of lumbosacral spine Dr. Eugenio Mayen DO Work Phone: Start: 02-23-2025 Dup-scan xtr veins unilateral/limited study Go Rice MD Work Phone: Start: 02-23-2025 Radiologic exam ches t single view Go Rice MD Work Phone: Start: 02-23-2025 Basic metabolic pane l calcium total oG Rice MD Work Phone: Start: 02-23-2025 Ecg [...] Comment: Speci men Type: BLOOD SPECIMENOrdering Facility: [facility] Address: [address] [place], [place] [id number] Performed By: #### T SCR ####[facility] BLOOD BANKCLIA [id number] [place] [address] [place] Start: 02-11-2023 Pelvis X-ray [...] Radex humerus minimu m 2 views [facility] Work Phone: Start: 06-26-2020 Radex shoulder compl ete minimum 2 views [facility] Dir[facility] Work Phone: Start: 06-26-2020 Radex spine lumbosac ral 2/3 views [facility] [employer] Work Phone: Start: 06-26-2020 Radex wrist complete minimum 3 views [facility] [employer] Work Phone: Start: 08-30-2017 Lipid 1996 panel [...] DTaP,Tdap,Td Vaccine (3 - Td or Tdap) [facility] Start: 02-13-2026 DIABETES SCREEN DIABETES SCREEN [facility] Start: 02-13-2026 Diabetes Screening Diabetes Screenin g [facility] Start: 06-11-2025 [facility] Start: 05-31-2025 [facility] Start: 04-26-2025 [facility] Start: 04-04-2025 [facility] Start: 03-19-2025 Patient referral [facility] Work Phone: Start: 03-19-2025 X-ray of lumbosacral spine L/S Spine Bending Flex/Ext [facility] Start: 03-19-2025 XR Spine Lumbar and Sacrum Views [facility] Start: 01-03-2025 [facility] Start: 01-01-2025 End: 01-01-[address] [facility] Start: 11-25-2024 [facility] Start: 11-05-2024 [facility] Start: 2024 [facility] Start: 10-09-2023 [facility] Start: 08-09-2023 [facility] Start: 06-22-2023 Influenza vaccination [facility] Start: 11-03-2022 DIABETES SCREEN DIABETES SCREEN [facility] Start: 10-22-2022 ADVANCE DIRECTIVE DISCUSSION ADVANCE DIRECTIVE DISCUSSION [facility] Start: 10-22-2022 DEPRESSION ASSESSMENT DEPRESSION ASS ESSMENT [facility] Start: 08-30-2022 Lipid 1996 panel - S david or Plasma Lipid Screening [facility] Start: 08-30-2022 LIPID SCREEN LIPID SCREEN [facility] Start: 08-30-2022 PROSTATE CANCER SCREENING DISCUSSION PROSTATE CANCER SCREENING DISCUSSION [facility] Start: 06-22-2022 Influenza vaccination S [facility] Start: 04-24-2022 Referral to service [facility] Work Phone: Start: 10-22-2021 ADVANCE DIRECTIVE DISCUSSION ADVANCE DIRECTIVE DISCUSSION [facility] Start: 10-22-2021 DEPRESSION ASSESSMENT DEPRESSION ASS ESSMENT [facility] Start: 02-05-2021 Pneumococcal Vaccine : 65+ (1 - PCV) Pneumococcal Vaccine: 65+ (1 - PCV) [facility] Start: 02-05-2021 PNEUMOCOCCAL: 65+ (1 - PCV) PNEUMOCOCCAL: 65+ (1 - PCV) [facility] Start: 06-22-2020 Influenza vaccination Flu vaccine (# 1) [facility] [place] Start: 2016 RSV Vaccine (1 - 1-d ose 60+ series) RSV Vaccine (1 - 1-dose 60+ series) [facility] Start: 02-05-2006 SHINGRIX VACCINE (1 of 2) SHINGRIX VACCINE (1 of 2) [facility] Start: 02-05-2001 COLOGUARD (FIT-DNA) COLOGUARD (FIT-D NA) [facility] Start: 02-05-2001 Colonoscopy COLONOSCOPY [facility] Start: 02-05-2001 COLORECTAL CANCER SCREENING COLORECTAL CANCER SCREENING [facility] Start: 02-05-[address] COLONOGRAPHY [facility] Start: 02-05-2001 FECAL OCCULT BLOOD FECAL OCCULT BLOO D [facility] Start: 02-05-2001 SIGMOIDOSCOPY SIGMOIDOSCOPY [facility] Start: 02-05-1975 Urine microalbumin profile DTAP,TDAP,TD (1 - Tdap) [facility] Start: 02-05-1974 HEPATITIS C SCREENING HEPATITIS C SC DEB [facility] Start: 02-05-1961 COVID-19 Vaccine (1) COVID-19 Vaccin e (1) [facility] Start: 1955 COVID-19 VACCINE (#1) COVID-19 VACCI NE (#1) [facility] Start: 1955 ABDOMINAL AORTIC ANEURYSM SCREENING ABDOMINAL AORTIC ANEURYSM SCREENING [facility] End: 04-27-2024 Mri spinal canal lumbar w/o contrast material MRI LUMBAR SPINE WO IVCON Radiology Routine Other fracture of unspecified lumbar vertebra, initial encounter for closed fracture (HCC) 1 Occurrences starting 03/29/2023 until 04/27/2024 [facility] Work Phone: Comment on above: 1 Occurrences starti ng 03/29/2023 until 04/27/2024 Patient Education [facility] Work Phone: Patient referral [facility] Work Phone: [facility] Immunizations Immunization Date Immunization Notes Care Provider Manju woods 11-06-2024 tetanus toxoid, redu gaby diphtheria toxoid, and acellular pertussis vaccine, adsorbed; Translations: [Boostrix (Tdap)] EUGENIO MAYEN DO [facility] 10-02-2024 Pneumococcal conjuga te PCV20, polysaccharide [id number] conjugate, adjuvant, PF; Translations: [Prevnar 20] EUGENIO MAYEN DO [facility] 09-11-2024 influenza, high dose seasonal, preservative-free; Translations: [Afluria PF Prefilled Syringe ] EUGENIO MAYEN DO [facility] 09-24-2023 influenza, high dose seasonal, preservative-free; Translations: [Fluad Quadrivalent PF ] EUGENIO MAYEN DO [facility] 06-15-2018 tetanus toxoid, redu gaby diphtheria toxoid, and acellular pertussis vaccine, adsorbed NAGA SOLIS MD [facility] 06-15-2018 diphtheria and tetan us toxoids, adsorbed for pediatric use EUGENIO VITALYMARII FLEIMNG [facility] Comment on above: Result Comment: Unit : Unknown Route: Intramuscular Composition 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 1998 Medicaid [id number]. [id number] 1998 Unknown [id number] 1956 Unknown [id number] 2.16.840.1.908360.3.579.2.651 1956 Unknown [id number] 2.16.840.1.053041.3.579.2.627 1956 Unknown [id number] 2.16.840.1.702344.3.579.2.627 1956 Unknown [id number] 2.16.840.1.342126.3.579.2.627 1956 Unknown [id number] 2.16.840.1.136103.3.579.2.627 1956 Unknown [id number] 2.16.840.1.448687.3.579.2.627 1956 Unknown [id number] 2.16.840.1.433463.3.579.2.62 1956 Unknown [id number] 2.840.1.775817.3.579.2. 1956 Unknown [id number] 2.16.840.1.427874.3.579.2. 1956 Unknown [id number] 2.840.1.966401.3.579.2.201 1956 Unknown [id number] 2.840.1.121748.3.579.2. 1956 Unknown [id number] 2.840.1.615533.3.579.2. 1956 Unknown [id number] 2.840.1.194441.3.579.2. 1956 Unknown [id number] 2.840.1.488228.3.579.2. 1956 Unknown [id number] 2.840.1.587777.3.579.2. 1956 Unknown [id number] 2.840.1.099523.3.579.2. 1956 Unknown [id number] 2.840.1.987886.3.579.2. 1956 Unknown [id number] .840.1.908636.3.579.2. 1956 Unknown [id number] .840.1.696916.3.579.2. 1956 Unknown [id number] 2.840.1.997823.3.579.2. 1956 Unknown [id number] 2.840.1.522577.3.579.2. 1956 Unknown [id number] 2.840.1.802918.3.579.2 1956 Unknown [id number] 2.16.840.1.638196.3.579.2.627 Unknown [id number] 2.16.840.1.381436.3.579.2.462 Unknown [id number] 2.16.840.1.215705.3.579.2.462 Unknown [id number] 2.16.840.1.327235.3.579.2.462 Unknown [id number] 2..840.1.764081.3.579.2.462 Unknown [id number] 2..840.1.069949.3.579.2.462 Unknown [id number] 2.840.1.697388.3.579.2.462 Unknown [id number] 2..840.1.772570.3.579.2.462 Unknown [id number] 2.840.1.882354.3.579.2.462 Unknown [id number] 2.840.1.544250.3.579.2.462 Unknown [id number] 2.840.1.764081.3.579.2.462 Unknown [id number] 2..840.1.939487.3.579.2.462 Unknown [id number] 2..840.1.797424.3.579.2.462 Unknown [id number] 2..840.1.415776.3.579.2.462 Unknown [id number] 2..840.1.777717.3.579.2.462 Unknown [id number] 2..840.1.595272.3.579.2.462 Unknown [id number] 2..840.1.702751.3.579.2.462 Unknown [id number] 2.16.840.1.469469.3.579.2.462 Unknown [id number] 2.840.1.181341.3.579.2.462 Social History Date Type Detail Facility Start: 06-26-2020 End: 06-11-2025 Tobacco smoking status NHIS Former smoker [facility] Start: 06-26-2020 End: 08-22-2023 Alcohol intake Current non-drinker of alcohol (finding) [facility] Start: 1955 Sex Assigned At Not on file M [place], [place] Start: 02-26-2022 End: 09-19-2022 Exposure to SARS-CoV-2 (event) Not sure [place], [place] Start: 03-29-2023 End: 02-23-2025 Rarely consumes alcohol Rarely consumes alcohol [facility] Sex Assigned At [facility] Start: 02-27-2022 End: 2024 Tobacco smoking status NHIS Unknown if ever smoked [facility] Start: 02-10-2019 None [facility] Start: 02-10-2019 Alone [facility] Start: 1955 Sex Assigned At Male [facility] Start: 05-28-2017 End: 02-23-2025 Tobacco use and exposure Smokeless tobacco non-user [facility] Work Phone: End: 10-22-1997 History of tobacco use Current smoker [facility] End: 10-22-1997 History of tobacco use Cigarette Smoker [facility] Start: 09-19-2022 Tobacco Comment Quit 1998 [facility] Start: 01-28-2019 Alcohol Comment Quit 1986 [facility] Start: 02-12-2023 History SDOH Financial 5 [facility] Start: 02-12-2023 History SDOH Food Worry 1 [facility] Start: 02-12-2023 History SDOH Transpo rt Med 2 [facility] Start: 03-29-2023 End: 02-23-2025 Tobacco use panel [facility] How hard is it for y ou to pay for the very basics like food, housing, medical care, and heating Not hard at all [facility] (I/We) worried rebeca er (my/our) food would run out before (I/we) got money to buy more. Never true [facility] In the past 12 month s, was there a time when you were not able to pay the mortgage or rent on time? No [facility] Start: 08-12-2014 End: 01-03-2025 Sex Male (finding) [facility] History of tobacco use Passive smoker [facility] Start: 02-23-2025 Alcoholic beverage intake Ex-drinker (finding) [facility] Functional Status Date Assessment Result Facility 02-23-2025 Are you deaf, or do you have serious difficulty hearing No 02/23/2025 5:07 AM Nataliya Womack RN [facility] 02-23-2025 Are you blind, or do you have serious difficulty seeing, even when wearing glasses No 02/23/2025 5:07 AM Nataliya Womack, [facility] 02-23-2025 Do you have serious difficulty walking or climbing stairs No 02/23/2025 5:07 AM Nataliya Womack RN [facility] 02-23-2025 Do you have difficul ty dressing or bathing No 02/23/2025 5:07 AM Nataliya Womack, [facility] 02-23-2025 Because of a physica l, mental, or emotional condition, do you have difficulty doing errands alone such as visiting a physician's office or shopping No 02/23/2025 5:07 AM Nataliya Womack, [facility] 04-02-2022 Functional Status ID band on, Allergy Band on, Call device within reach, Bed in low position, Wheels locked, Upper/Half-Length side-rails up, Phone within reach, personal items within reach, Assistive devices within reach, Toileting device within reach, Bedside Cart Locked, Visitor at bedside, Safety level maintained [facility] 03-05-2022 Functional Status [facility] 03-01-2022 Functional Status [facility] 02-26-2022 Functional Status [facility] Mental Status Date Assessment Result Facility 02-23-2025 Because of a physica l, mental, or emotional condition, do you have serious difficulty concentrating, remembering, or making decisions No 02/23/2025 5:07 AM Nataliya Womack, [facility] 11-25-2024 Cognitive function Level Of Cons ciousness Awake;Alert [facility] Work Phone: 04-02-2022 Mental Status Oriented x 4 [facility] 03-05-2022 Mental Status [facility] 03-01-2022 Mental Status [facility] 02-26-2022 Mental Status [facility] Clinical Notes 08-05-2020 to 05-31-2025 Note Date & Type Note Facility 05-31-2025 Radiology Diagnostic study note [facility] Imaging Services [address] [place] [id number] Chest, Abd, Pel w/Contrast MR#: [id number] Acct: [id number] Name: WINSTON MARI Rep #: [id number] : 1955 M 70 From: Khanh Gross MD PCP: Dr. Eugenio Mayen, DO Status: REG ER Study:CT Chest, Abd, Pel w/Contrast Date of E xam: 05/31/25 Exam# [id number] Ordering Dr: Daxa Velarde DO PROCEDURE: CT CHEST, ABD, PEL W/CONTRAST 05/31/2025 REASON FOR EXAM: FALL, TRAUMA. Pain between shoulder blades. Hit head. Question LOC. History of cerebral aneurysm clamping. 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 History of epilepsy, HLD. TECHNIQUE: Chest, abdomen and pelvis CT with intravenous contrast. Coronal and Sagittal reconstruction series were provided. One or more dose reduction techniques were used (e.g., Automated exposure control, adjustment of the mA and/or kV according to patient size, use of iterative reconstruction technique. CONTRAST: Isovue 370 VOLUME: 100mL RADIATION DOSE SUMMARY: CTDlvol: 19.00, 12.02, 13.28 mGy DLP: 9.50, 396.21, 689.33 mGycm FINDINGS: CHEST: LUNGS: Mild diffuse centrilobular emphysema. Stable pulmonary nodules since 03/09/2022: 8.2 mm right lower lobe (Se: 602.2, Im: 100), 2.4 mm right lower lobe nodule along the major fissure (Se: 12, Im: 99) and 4.8 mm left lower lobe (Se: 12, Im: 109). No pulmonary mass. No focal airspace consolidation. Calcified granuloma in the lingula. PLEURAL SPACES: No pleural effusion. No pneumothorax. HEART: No cardiomegaly. No significant pericardial effusion. Multivessel coronary artery calcification. MEDIASTINUM/HILUM: No significant lymphadenopathy. Calcified mediastinal and colonic diverticulosis without signs left hilar lymph nodes. AORTA: No aneurysm or dissection. Scattered calcified atherosclerosis. ESOPHAGUS: Unremarkable. SOFT TISSUES: The soft tissues are unremarkable. BONES: No acute osseous abnormality. Degenerative changes of the glenohumeral and acromioclavicular joints bilaterally. Mild stable compression deformities of the T6 and T9 vertebral bodies. ABDOMEN AND PELVIS: LIVER: Unremarkable. No focal lesions. GALLBLADDER: Unremarkable. No calcified stone. BILE DUCTS: No ductal dilation. PANCREAS: Unremarkable. SPLEEN: Multiple calcified splenic granulomas. ADRENAL GLANDS: Unremarkable. KIDNEYS: Small 2.0 mm right renal stone. Multiple hypodense renal lesions againseen bilaterally, likely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 AdvReac Rash Verified 01/03/25 16:39 hydrocodone (From [place]) AdvReac Upset Verified 01/03/25 16:39 Stomach ibuprofen [...] Clarity Clear Urine pH 7.0 Ur Specific [place] 1.010 Urine Protein Negative Urine Glucose (UA) [...] Clarity Clear Urine pH 7.0 Ur Specific [place] 1.010 Urine Protein Negative Urine Glucose (UA) [...] acetate [Anusol-HC] 25 mg suppository 25 mg OK QHS Qty: 12 0RF atorvastatin [Lipitor] 40 [...] DO [Primary Care Provider] - Print Language: Botswanan What to do if you have Problems For any increased pain, shortness of breath, bleeding, nausea or vomiting, chestpain, or any unexpected problems, contact your Primary Care Provider. Call [facility] ([phone]) or report tothe closest Emergency Room. Call 911 if necessary. 01/03/25 184 Cosigner Signature (if applicable): 01/03/25 1836 CC: Dr. Eugenio Mayen DO ~ Signed [facility]03-15-2025 Discharge summary Author Irene Franks [facility] Note Date/Time January 03, 2025 6:4 2pm [facility] Medical Records Department [address] [place] [address] Emergency Department Summary 01/03/25 MR#: [id number] Acct: [id number] Name: WINSTON MARI Rep #:[id number] : 1955 69 From: Irene PRINCE PCP: [...] fever chills or vomiting. [facility] <NIKI Bird - Last Filed: 01/03/25 18:42> [facility] Medical History Left rotator cuff tear Anemia GERD (gastroesophageal reflux disease) Left shoulder pain Hemorrhoid Epilepsy Sciatica High cholesterol Home Medications ?Medication ?Instructions ?Recorded ?Last Taken ?Type gabapentin 300 mg capsule 300 mg PO 4X/DAY 04/02/22 Un known History hydrocortisone acetate 25 mg 25 mg OK QHS #12 ea 04/27 Unknown Rx rectal [...] AdvReac Rash Verified 01/03/25 16:39 hydrocodone (From [place]) AdvReac Upset Verified 01/03/25 16:39 Stomach ibuprofen [...] <NIKI Bird - Last Filed: 01/03/25 18:42> [facility] Narrative Medical decision making narrative: 69-year-old male [...] Clarity Clear Urine pH 7.0 Ur Specific [place] 1.010 Urine Protein Negative Urine Glucose (UA) [...] Mari MD - Last Filed: 01/03/25 18:36> [facility] MDM Narrative Medical decision making narrative: I [...] Clarity Clear Urine pH 7.0 Ur Specific [place] 1.010 Urine Protein Negative Urine Glucose (UA) [...] acetate [Anusol-HC] 25 mg suppository 25 mg OK QHS Qty: 12 0RF atorvastatin [Lipitor] 40 mg Tablet 40 mg PO QHS polyethylene glycol 3350 [ClearLax] 17 gram/dose powder 17 g PO DAILY Qty: 119 0RF clopidogrel 75 mg tablet 75 mg PO QDAY Patient Comments: TAKE 1 TABLET BY MOUTH EVERY DAY duloxetine 30 mg capsule,delayed release(/EC) See Rx Instructions PO QDAY Patient Comments: [...] DO [Primary Care Provider] - Print Language: Botswanan What to do if you have Problems For any increased pain, shortness of breath, bleeding, nausea or vomiting, chestpain, or any unexpected problems, contact your Primary Care Provider. Call [facility] ([phone]) or report to the closest Emergency Room. Call 911 if necessary. 01/03/251841 <Electronically signed by Irene PRINCE> Cosigner Signature (if applicable): 01/03/251835 <Electronically signed by Ken Mari MD> CC: Dr. Eugenio Mayen, ~ Signed [facility] Work Phone: 1(346) 424-382403-13-2025 Radiology Diagnostic study note [facility] Imaging Services [address] [place], [place] [address] Abdomen/Pelvis without Cont MR#: [id number] Acct: [id number] Name: WINSTON MARI Rep #: [id number] : 1955 M 69 From: Saranya Del Cid MD PCP: Dr. Eugenio Mayen DO Status: REG ER Study:Abdomen/Pelvis without Cont Date of Exa m: 01/01/25 Exam# [id number] Ordering Dr: Dean Del Cid DO EXAM: [...] Colonic diverticulosis without acute diverticulitis. Reading Location[facility] CC: Dr. Eugenio Mayen DO; Dr. 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02-24-2025 Evaluation note* Diagnosis Onset Date Resolution Status Admit Date Left rotator cuff tear acute Fe bruary 2024 10:45am Left shoulder pain acute Februa ry 2024 10:45am [facility] Work Phone: 1(406) 995-954602-24-2025 Evaluation note* Diagnosis Onset Date Resolution Status Admit Date Left rotator cuff tear acute Fe bruary 2024 10:45am Left shoulder pain acute Februa 2024 10:45am Degenerative disc disease, lumbar acute March 19, 2025 9 :49am [facility] Work Phone: 1(363) 446-483701-23-2025 Evaluation note* Diagnosis Onset Date Resolution Status Admit Date Left shoulder pain acute Januar y 2024 1:55pm Degenerative disc disease, lumbar acute November 18 1:21pm Compression fx, lumbar spine inactiv e November 18, 2024 1:21pm Foot drop, left noneactive October 232024 1:21pm Left rotator cuff tear acute Fe bruary 2024 10:45am Left shoulder pain acute Februa 2024 10:45am [facility] Work Phone: 1(274) 174-460711-01-2023 NoteHNO ID: [id number] Author: Hamilton Agarwal MD Service: ? Author [...] times a day from Dr. Mayen in [place]. As above, note from Dr. Almonte indicates [...] past in at a pain center in [place]. Patient indicates he decided against kyphoplasty. He is not following up with neurosurgery. Patient absolutely does not want any spinal injections again. He has agreed to try a TENS unit. There is a new TENS unit technology from a company called [employer]. This was prescribed for him. Gave him the phone number that way if he is not contacted within the next week, he has a phone number to call. He will follow-up with us on a as needed basis. We could consider IV lidocaine infusions in the future. Patient agrees to the above.[facility]11-01-2023 History of Present illness Narrative* Hamilton Agarwal [...] is being referred to us by Dr. lAmonte for ongoing pain issues. Patient has a [...] times a day from Dr. Mayen in [place]. As above, note from Dr. Almonte indicates [...] past in at a pain center in [place]. Patient indicates he decided against kyphoplasty. He is not following up with neurosurgery. Patient absolutely does not want any spinal injections again. He has agreed to try a TENS unit. There is a new TENS unit technology from a company called [employer]. This was prescribed for him. Gave him the phone number that way if he is not contacted within the next week, he has a phone number to call. He will follow-up with us on a as needed basis. We could consider IV lidocaine infusions in the future. Patient agrees to the above. [facility] Discharge summary Author Gene Cristina [facility] August 09, 2023 3:24pm Note Date/Time August 09, 2023 2 :37pm [facility] Medical Records Department [address] [place] [address] Emergency Department Summary 08/09/23 MR#: [id number] Acct: [id number] Name: WINSTON MARI #:[id number] : 1955 68 From: Gene Cristina MD [...] and L4 fracture. He was transferred to [facility]. They fitted him for a TLSO [...] to walk. He never hit his head. [facility] Medical History Epilepsy Hemorrhoid High cholesterol [...] 25 mg rectal suppository (Anusol-HC) 25 mg OK QHS #12 ea 04/27/22 [Rx Last Taken [...] AdvReac Rash Verified 05/31/23 10:23 hydrocodone [From [facility]] AdvReac Upset Verified 05/31/23 10:23 Stomach ibuprofen [...] acetate [Anusol-HC] 25 mg suppository 25 mg OK QHS Qty: 12 0RF atorvastatin [Lipitor] 40 [...] your Primary Care Provider. Call [facility] ([phone]) or report to the closest Emergency Room. Call 911 if necessary. 08/09/23 3643 <Electronically signed by Gene Cristina MD> Cosigner Signature (if applicable): CC: Dr. Eugenio Mayen, DO ~ Signed [facility] Work Phone: 1([phone]) 442-373908-02-2023 Miscellaneous Notes* Telephone Encounter - Donna Phillip [...] to proceed with surgery. documented in this encounterWayne [facility]07-17-2023 NoteHNO ID: [id number] Author: Pro Almonte MD Service: ? Author Type: Physician Type: Progress Notes Filed: 05/10/2023 11:35 AM Note Text: NEUROSURGERY FOLLOW UP OFFICE NOTE Pro Almonte MD Date of visit: May 10, 2023 Patient Name: Mr.Johnnie Paul Mari Date of : 1955 Current Age: [age] year old Sex: male MRN/E# [id number] Last Office Visit: 03/29/2023 Chief Complaint: Patient presents with: lumbar fracture follow up HISTORY OF PRESENT ILLNESS : Winston Mari is a 68 year old male with a past medical history of arthritis, epilepsy, high cholesterol, and sciatica. He is a former smoker. The patient presented to [facility] ED on 02/11/2023 as a transfer from [facility] after falling off a roof. [...] BRAIN SURGERY HX OTHER ANEURYSM REPAIR 1983 [facility]- Dr. Simpson- Brain Aneurysm FAMILY HISTORY [...] suppository Active 25 MG RC AT BEDTIME 12 April 26, 2022 11:00pm omeprazole (PRILOSEC) 40 [...] Negative for pain, red (more content not included)...[facility]07-10-2023 NoteHNO ID: [id number] Author: RT Lonnie(R) Service: ? Author Type: [...] BY: RT Lonnie(R) April 30, 2023 1:22 [facility]07-10-2023 Miscellaneous Notes* Telephone Encounter - Irene Quintero MA - 04/30/2023 1:32 PM EDT At appointment time, 1:30p, pt was not checked in. Went to lobby/waiting room and hallway to call for pt. Pt was not in either location. documented in this encounterWayne Healthcare [facility] Campus07-06-2023 Miscellaneous Notes* Telephone Encounter - Ena Beard Ma - 04/26/2023 12:59 PM EDT Attempted to contact patient via telephone regarding upcoming NEW patient appointment with Dr. Barth 04/30/23. [facility] relaying the message below: [facility] is the [facility] calling regarding your upcoming appointment with Dr. Levi. To avoid a delay in your care, please bring any imaging (such as MRI, CT, XR, etc.) that have been done outside of the [facility] Systems on a disk to be viewed [...] or reschedule your appointment, please contact the [facility] at [phone]. documented in this encounterWayne Healthcare Main Campus06-08-2023 NoteHNO ID: [id number] Author: Pro Almonte MD Service: ? Author Type: Physician Type: Progress Notes Filed: 03/29/2023 10:08 AM Note Text: NEUROSURGERY FOLLOW UP OFFICE NOTE Pro Almonte MD Date of visit: March 29, 2023 Patient Name: Mr.Johnnie Paul Mari Date of : 1955 Current Age: [age] year old Sex: male MRN/E# [id number] Last Office Visit: Visit date not found Chief Complaint: Patient presents with: Low Back Pain Fracture - Lumbar Vertebra HISTORY OF PRESENT ILLNESS : Winston Mari is a 68 year old male with a past medical history of arthritis, epilepsy, high cholesterol, and sciatica. He is a former smoker. The patient presented to [facility] ED on 02/11/2023 as a transfer from [facility] after falling off a roof. [...] BRAIN SURGERY HX OTHER ANEURYSM REPAIR 1983 [facility]- Dr. Simpson- Brain Aneurysm FAMILY HISTORY [...] OBJECTIVE: BP 120/68 P (more content not included)...[facility] 03-29-2023 History of Present illness Narrative* Pro Almonte MD - 03/29/2023 10:00 AM EDT NEUROSURGERY FOLLOW UP OFFICE NOTE Pro Almonte MD Date of visit: March 29, 2023 Patient Name: Mr.Johnnie Paul Mari Date of : 1955 Current Age: [age] year old Sex: male MRN/E# [id number] Last Office Visit: Visit date not found Chief Complaint: Patient presents with: Low Back Pain Fracture - Lumbar Vertebra HISTORY OF PRESENT ILLNESS : Winston Mari is a 68 year old male with a past medical history of arthritis, epilepsy, high cholesterol, and sciatica. He is a former smoker. The patient presented to [facility] ED on 02/11/2023 as a transfer from [facility] after falling offa roof. Imaging [...] BRAIN SURGERY HX OTHER ANEURYSM REPAIR 1983 [facility]- Dr. Simpson- Brain Aneurysm FAMILY HISTORY [...] plan. Pro Almonte MD Department of Neurosurgery [facility] This note was partially generated using [employer] voice recognition system, and there may be some incorrect words, spellings, and punctuation that were not noted in checking the note before saving. documented in this encounterWayne Healthcare Main Campus06-06-2023 Miscellaneous Notes* Telephone Encounter - Donna Phillip RN - 03/27/2023 9:18 AM EDT Attempted to call patient at [phone]. Incorrect number listed in patient chart. Donna Phillip RN documented in this encounterWayne Healthcare Main Campus06-05-2023 Miscellaneous Notes* Telephone Encounter - Donna Phillip RN - 03/26/2023 2:48 PM EDT Attempted to reach patient and his brother to notify them that Winston needs x- rays completed before his appointment. Brothers' phone number is disconnected. Number listed for Winston leads to [facility]. Will attempt to contact tomorrow again to see if this could potentially be patient's place of work? Otherwise no other contact info listed for patient. Donna Phillip RN documented in this encounterWayne Healthcare Main Campus04-25-2023 NoteHNO ID: [id number] Author: Xuan Rivera RN Service: Care Management [...] 13, 2023 TIME: 11:40 AM PAGER/CONTACT #: [phone] NoteHNO ID: [id number] Author: Prabhakar Ramirez PA-C Service: General Surgery Author Type: Physician Environmental Marketer Type: Progress Notes Filed: 02/13/2023 9:27 AM [...] Date 02/12/23 0700 - 02/13/23 0659 02/13/23 07 - 02/14/23 0659 Shift 2675-2265 9978-8822 9998-3176 24 Hour Total 0162-8739 3479-4319 0147-9114 24 Hour Total INTAKE PO 360 120 480 PO 360 120 480 Shift Total 360 120 480 OUTPUT Urine 650 2836 859 9659 Void (ml) 650 6286 215 6444 Shift Total 650 4649 085 3978 Weight (kg) 68 68 68 68 68 [...] 02/11/2023 Closed compression fracture of L2 vertebra ([facility]) 02/12/2023 Closed compression fracture of L4 vertebra ([facility]) 02/12/2023 Assessment: 68 year old male s/p fall from roof/ladder on 02/11/2023 (transfer from [place]) Imaging performed: 02/11/2023 - CT H/N/C/A/P/L-spine, PXR, XR femur (Performed at [place] prior to transfer) 02/12/2023 - MRI lumbar, [...] management Dispo Planning: P (more content not included)...[facility]04-25-2023 NoteHNO ID: [id number] Author: Pretty Cardenas MD Service: Pain Management [...] lower back pain. Patient was seen at [place] ED. CT HNCAPT completed and demonstrated acute [...] cap(s) (FLOMAX) 0.4 mg ORAL DAILY Shira Galarza, DO 0.4 mg at 02/12/[address] 40 mg tab(s) (PROTONIX) 40 mg ORAL DAILY (6 AM) Shira Galarza, DO 40 mg at 02/13/23 0641 DULoxetine 30 mg cap(s) (CYMBALTA) 30 mg ORAL BID Shira Galarza, DO 30 mg at 02/12/23 2021 acetaminophen 975 mg tab(s) (TYLENOL) 975 mg [...] capsule, TAKE 1 CAPSU (more content not included)...[facility]04-24-2023 NoteHNO ID: [id number] Author: Prabhakar Ramirez PA-C Service: General Surgery Author Type: Physician Environmental Marketer Type: Progress Notes Filed: 02/12/2023 11:33 AM [...] Room Air IANDO: Date 02/11/23699 - 02/12/23 0602/12/23699 - 02/13/23 0659 Shift 1873-3379 3205-3628 3208-1678 24 Hour Total 6527-6959 1626-6896 3717-3494 24 Hour Total INTAKE Shift Total OUTPUT Urine 229 713 8900 650 650 Void (ml) 038 441 1995 650 650 Shift Total 900 551 7152 650 650 Weight (kg) 68 68 68 [...] fall from roof/ladder on 02/11/2023 (transfer from [place]) Imaging performed: 02/11/2023 - CT H/N/C/A/P/L-spine, PXR, XR femur (Performed at [place] prior to transfer) 02/12/2023 - MRI lumbar [...] Pager: For questions o (more content not included)...[facility] 01-13-[address] Sweeney [facility] January 14, 2023 12:17am Note Date/Time January 13, 2023 9:3 6pm [facility] Medical Records Department [address] [place] [address] Emergency Department Summary 01/13/23 MR#: [id number] Acct: [id number] Name: WINSTON MARI Rep #:[id number] : 1955 67 From: Mark Sweeney DO [...] states there is also concern for malignancy. [facility] Medical History Epilepsy Hemorrhoid High cholesterol [...] 25 mg rectal suppository (Anusol-HC) 25 mg OK QHS #12 ea 04/27/22 [Rx Last Taken Unknown] polyethylene glycol 3350 17 gram/dose oral powder (Miralax) 17 g PO DAILY #119 grams 04/27/22 [Rx Last Taken Unknown] atorvastatin 40 mg tablet (Lipitor) 40 mg PO QHS 01/13/23 [History Last Taken Unknown] Allergy/AdvReac Type Severity Reaction Status Date / Time adhesive tape [tape] AdvReac Rash Verified 01/13/23 20:46 hydrocodone [From [facility]] AdvReac Upset Verified 01/13/23 20:46 Stomach ibuprofen [...] Signed: Maksim Lees MD at 23:34 EDT Reading Location ID and State: [facility] / [place] Tel , Service support , Discharge Plan Triage Chief Complaint: Lower [...] acetate [Anusol-HC] 25 mg suppository 25 mg OK QHS Qty: 12 0RF atorvastatin [Lipitor] 40 mg Tablet 40 mg PO QHS Primary Care Provider: Eugenio Mayen Referrals: Eugenio Mayen DO [Primary Care Provider] - Disposition Disposition: Home, Self Care What to do if you have Problems For any increased pain, shortness of breath, bleeding, nausea or vomiting, chestpain, or any unexpected problems, contact your Primary Care Provider. Call [facility] ([phone]) or report to the closest Emergency Room. Call 911 if necessary. 01/14/23 0017 <Electronically signed by Mark Sweeney DO> Cosigner Signature (if applicable): CC: Dr. Eugenio Mayne DO ~ Signed [facility] Work Phone: 1(600) 311-534102-24-2023 Note ORIGINAL EXAMINATION: BONE DENSITOMETRY 12/15/2022 1:58 [...] Sign Date: 12/15/2022 4:34:29 PM Ordering Provider: [facility]02-24-2023 Note ORIGINAL EXAMINATION: BONE DENSITOMETRY 12/15/2022 1:58 [...] Date: 12/15/2022 4:34:29 PM [facility] HNO ID: [id number] Author: Hubert Jett MD Service: ? Author [...] physician was referred to a surgeon in [place]. He had been prescribed medications that he is uncertain what they were along with an ointment that was made at [facility] which she stated helped his symptoms [...] BRAIN SURGERY HX OTHER ANEURYSM REPAIR 1983 [facility]- Dr. Simpson- Brain Aneurysm CURRENT MEDICATIONS: [...] entered by the nurse and reviewed by wi Nursing Notes: Ana Maria Padilla LPN 09/19/2022 [...] and denies bloody urine. (more content not included)...[facility]11-30-2022 History of Present illness Narrative* Hubert Jett [...] physician was referred to a surgeon in [place]. He had been prescribed medications that he is uncertain what they were along with an ointment that was made at [facility] which she stated helped his symptoms [...] BRAIN SURGERY HX OTHER ANEURYSM REPAIR 1983 [facility]- Dr. Simpson- Brain Aneurysm CURRENT MEDICATIONS: [...] entered by the nurse and reviewed by wi Nursing Notes: Ana Maria Padilla LPN 09/19/2022 [...] needed. Hubert Jett MD documented in this encounterWayne Healthcare Main Campus11-29-2022 Instructions* Patient Instructions* Hubert Jett MD - 09/19/2022 5:00 PM EST The following instructions are important for you related to your office visit today with the [facility] General Surgeons. INSTRUCTIONS FOR AN ANAL [...] you should contact our office immediately @ [phone] and ask to be transferred to the General Surgery department. documented in this encounterWayne Healthcare Main Campus11-29-2022 Nurse Note* Ana Maria ValerieUNRULY - 09/19/2022 4:02 PM EST REVIEW OF [...] Ana Maria Padilla LPN documented in this encounterWayne Healthcare [facility] Campus10-03-2022 Note ORIGINAL EXAMINATION: TWO XRAY VIEWS OF THE RIGHT NOZFNILV72/3/2022 11:46 am XR right shoulder three views [...] Sign Date: 07/24/2022 11:18:45 PM Ordering Provider: [facility]10-03-2022 Note ORIGINAL EXAMINATION: TWO XRAY VIEWS OF THE RIGHT ONHTQSFB97/3/2022 11:46 am XR right shoulder three views [...] Sign Date: 07/24/2022 11:18:45 PM Ordering Provider: [facility]06-12-2022 Hospital Discharge instructions Patient Education 04/02/2022 08:42:19 [...] are needed. Resources For more information, contact: [employer], [email or web address] or [phone] [employer], theacpa.org or [phone] [employer]. [address] [place] [address], [place] [address]. All rights reserved. This information is not intended as a substitute for professional medical care. Always follow yourhealthcare professional's instructions. Follow Up Care 04/02/2022 08:18:50 With:EUGENIO MAYEN DO Address: [address] [place] [phone] When:2-4 days [facility] 05-18-2022 Hospital Discharge instructions* Instructions* Segun Joyner MD - 03/08/2022 Return for abdominal pain/fever or vomiting as that could point to more going on than sciatica; Useyour muscle relaxer as prescribed * Attachments The following attachments cannot be sent through Care Everywhere. * Sciatica (Botswanan) documented in this [facility] Work Phone: [phone]) 980-393905-15-2022 Hospital Discharge instructions Patient Education 03/05/2022 12:43:55 [...] prescribed. These can be rented or purchased [facility] pharmacies and surgical or orthopedic supply stores. [...] alternate ice and heat. You may use jzbl-rva-igflpiu pain medicine to control pain, unless another [...] to put weight on the injured side [phone] [employer]. [address] [place] [address]. All rights reserved. This information is not [...] or swelling over your back or spine 2811-1781 [employer]. [address] [place] [address]. All rights reserved. This information is not intended as a substitute for professional medical care. Always follow yourhealthcare professional's instructions. Follow Up Care 03/05/2022 12:34:31 With:EUGENIO MAYEN DO Address: [address] [place] [address] [place] [phone]- [phone] When:2-4 days Comments:Schedule an appointment for follow-up if symptoms or not improving.Limit activity as tolerated.Use ice or cold compresses to painful areas for the next 2 days and warm, moist heat thereafter.Use Tylenol for pain as needed.Use cyclobenzaprine as previously prescribed for muscle pain and spasm as needed.Return to the ED if symptoms worsen. [facility] 05-11-2022 Hospital Discharge instructions Patient Education [...] or swelling over your back or spine 2769-5399 [employer]. [address] [place] [address]. All rights reserved. This information is not intended as a substitute for professional medical care. Always follow yourhealthcare professional's instructions. Follow Up Care 03/01/2022 13:28:28 With:Pain management and back doctor Address:Unknown When:2-4 days Comments:Schedule appointment as soon as possibleAvoid pressure to peña sims relafen and tylenol katerina [facility] 05-08-2022 Hospital Discharge instructions Patient Education [...] or legs Numbness in the groin area [phone] [employer]. [address] [facility], [place] [address]. All rights reserved. This information is not intended as a substitute for professional medical care. Always follow yourhealthcare professional's instructions. Follow Up Care 02/26/2022 10:36:22 With:EUGENIO MAYEN DO Address: [address] [facility] [place] [address]- [phone] When:2-4 days [facility] 03-12-2022 Hospital Discharge instructions Patient Education [...] shoulder or upper arm Fever or chills [phone] [employer]. [address] [place] [address]. All rights reserved. This information is not intended as a substitute for professional medical care. Always follow yourhealthcare professional's instructions. Follow Up Care 12/31/2021 17:21:44 With:EUGENIO MAYEN DO Address: [phone] When:2-4 days [facility] 02-13-2022 Hospital Discharge instructions Patient Education [...] shoulder or upper arm Fever or chills 2418-6724 [employer]. [address] [place] [address]. All rights reserved. This information is not intended as a substitute for professional medical care. Always follow [facility] professional's instructions. 12/04/2021 11:27:38 Fall, Mechanical Mechanical [...] in vomit, stools (black or red color) 5893-9403 [employer]. [address] [place] [address]. All rights reserved. This information is not intended as a substitute for professional medical care. Always follow yourhealthcare professional's instructions. Follow Up Care 12/04/2021 11:20:21 With:EUGENIO MAYEN DO Address: [phone] When:2-4 days [facility] 11-20-2021 Hospital Discharge instructions Patient Education [...] pressure and pain in your lower back. [phone] [employer]. [address] [place] [address], [place] [address]. All rights reserved. This information is not [...] Numbness in the groin or genital area 4528-5449 [employer]. [address] [place] [address]. All rights reserved. This information is not intended as a substitute for professional medical care. Always follow yourhealthcare professional's instructions. Follow Up Care 09/10/2021 11:27:40 With:EUGENIO MAYEN DO Address: [phone] When:2-4 days [facility] 11-07-2021 Hospital Discharge instructions Patient Education [...] or swelling over your back or spine [phone] [employer]. [address] [place] [address], [place] [address]. All rights reserved. This information is not [...] are taking other medicines. You may use omdg-bzg-kiuriyg medicine as directed on the bottle to [...] Numbness in the groin or genital area 1411-1009 [employer]. [address] [place] [address]. All rights reserved. This information is not [...] prescribed.Return to the ED if symptoms worsen. [facility] 03-12-2021 Evaluation + Plan note Future Scheduled Tests Laboratory* Lipid Profile 12/31/20 Radiology* XR Shoulder Minimum 2 Views Left 06/21/21 * XR Shoulder Minimum 2 Views Right 06/21/21 * MRI Spine Lumbar w/o Contrast 02/04/21 [facility] 10-15-2020 Evaluation + Plan note Future Appointments Appointment Date:06/10/2025 02:30:00 PM Scheduled Provider: Location:[facility] Appointment Type:GI OV Consult Appointment Date:08/05/2025 10:30:00 AM Scheduled Provider:EUGENIO MAYEN DO Location:[facility] Appointment Type:PC OV Future Scheduled Tests Laboratory* Urine Culture 07/02/24 Radiology* CT Thorax w/o Contrast 01/15/25 * MRI Shoulder w/o Contrast Left 05/01/25 * NM Myocardial Spect Rest/Stress 05/20/25 [facility] Discharge summary Author Micheal Sun [facility] 2024 10:07am Note Date/Time 2024 8:5 1am [facility] Medical Records Department [address] [place] [address] Emergency Department Summary 02/06/24 MR#: [id number] Acct: [id number] Name: WINSTON MARI Rep #:[id number] : 1955 69 From: Micheal Sun MD [...] as to what an epinephrine pen is. [facility] Medical History Epilepsy Hemorrhoid High cholesterol Sciatica Home Medications omeprazole 20 mg capsule,delayed release 40 mg PO DAILY 03/23/22 [History Last Taken Unknown] gabapentin 300 mg capsule 300 mg PO 4X/DAY 04/02/22 [History Last Taken Unknown] hydrocortisone acetate 25 mg rectal suppository (Anusol-HC) 25 mg OK QHS #12 ea 04/27/22 [Rx Last Taken [...] AdvReac Rash Verified 02/06/24 08:35 hydrocodone [From [facility]] AdvReac Upset Verified 02/06/24 08:35 Stomach ibuprofen [...] acetate [Anusol-HC] 25 mg suppository 25 mg OK QHS Qty: 12 0RF atorvastatin [Lipitor] 40 [...] FOR 30 DAYS Primary Care Provider: Eugenio Myaen Referrals: Eugenio Mayen DO [Primary Care Provider] [...] your Primary Care Provider. Call [facility] ([phone]) or report to the closest Emergency Room. Call 911 if necessary. 02/06/24 1007 <Electronically signed by Micheal Sun MD> Cosigner Signature (if applicable): CC: Dr. Eugenio Mayen DO ~ Signed [facility] Work Phone: Discharge summary Author Husam Haynes [facility] Note Date/Time April 26, 2025 12:[address] [facility] Medical Records Department [address] [place] [address] Emergency Department Summary 04/26/25 MR#: [id number] Acct: [id number] Name: WINSTON MARI Rep #:[id number] : 1955 70 From: Husam morgan DO PCP: Dr. Eugenio Mayen DO Status:REG [...] 15 Psych: Cooperative, appropriate mood and affect [facility] Medical History Left rotator cuff tear Anemia GERD (gastroesophageal reflux disease) Left shoulder pain Hemorrhoid Epilepsy Sciatica High cholesterol Home Medications ?Medication ?Instructions ?Recorded ?Last Taken ?Type gabapentin 300 mg capsule 300 mg PO 4X/DAY 04/02/22 Un known History hydrocortisone acetate 25 mg 25 mg OK QHS #12 ea 04/27 Unknown Rx rectal [...] AdvReac Rash Verified 04/26/25 08:25 hydrocodone (From [place]) AdvReac Upset Verified 04/26/25 08:25 Stomach ibuprofen [...] x-rays were personally reviewed and interpreted by wi, ED physician. X-ray of the shoulder shows [...] 3. Other findings as noted. Reading Location: [facility] Cervical Spine CT 04/26/25 09:30 IMPRESSION: 1. Multilevel degenerative disc disease as described. 2. Multilevel facet arthropathy with degenerative grade 1 anterolisthesis C7 onT1. 3. Other findings as noted. No significant change. Reading Location: [facility] Lumbar Spine CT 04/26/25 09:30 IMPRESSION: 1. Chronic mild compression of the superior endplates of L2, L4 and L5. 2. Degenerative disc disease as described. 3. Other findings as noted. Reading Location: [facility] Thoracic Spine CT 04/26/25 09:30 IMPRESSION: 1. Mild compression of the superior endplate of T6 and T9, chronic. 2. No evidence of acute injury to the thoracic spine. 3. Other findings as noted. Reading Location: [facility] Chest X-Ray 04/26/25 09:45 IMPRESSION: No evidence of acute cardiopulmonary pathology. Reading Location: [facility] Hip/Pelvis X-Ray 04/26/25 09:45 IMPRESSION: 1. Normal bilateral hips. 2. Other findings as noted. Reading Location: [facility] Shoulder X-Ray 04/26/25 09:45 IMPRESSION: 1. No evidence of acute fracture or dislocation. 2. Arthritis of the acromioclavicular and glenohumeral joints. 3. 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 Reading Location: [facility] Wrist X-Ray 04/26/25 09:45 IMPRESSION: 1. No evidence of fracture or dislocation. 2. Multifocal arthropathy. Reading Location: [facility] Discharge Plan Triage Chief Complaint: Fall ED Provider: Husam Haynes Dx/Rx/DC Orders Prescriptions: No Action ferrous sulfate 325 mg (65 mg iron) tablet 325 mg PO QDAY pantoprazole 40 mg tablet,delayed release (DR/EC) 40 mg PO QDAY gabapentin 300 mg capsule 300 mg PO 4X/DAY hydrocortisone acetate [Anusol-HC] 25 mg suppository 25 mg OK QHS Qty: 12 0RF atorvastatin [Lipitor] 40 [...] DO [Primary Care Provider] - Print Language: Botswanan What to do if you have Problems For any increased pain, shortness of breath, bleeding, nausea or vomiting, chestpain, or any unexpected problems, contact your Primary Care Provider. Call [facility] ([phone]) or report to the closest Emergency Room. Call 911 if necessary. 04/26/25 1204 <Electronically signed by Husam Haynes DO> Cosigner Signature (if applicable): CC: Dr. Eugenio Mayen DO ~ Signed [facility] Work Phone: Evaluation + Plan note Future Appointments Appointment Date:01/17/2022 10:00:00 AM Scheduled Provider:EUGENIO MAYEN DO Location:[facility] Appointment Type:PC OV Future Scheduled Tests [...] 02/04/21 * XR Spine Lumbar AP/LAT 12/07/21 [facility] Evaluation + Plan note Future Appointments Appointment Date:02/20/2022 04:30:00 PM Scheduled Provider:EUGENIO MAYEN DO Location:[facility] Appointment Type:PC OV Follow Up Future Scheduled [...] 02/16/22 * XR Spine Lumbar AP/LAT 12/07/21 [facility] Evaluation + Plan note Future Appointments Appointment Date:05/29/2022 11:30:00 AM Scheduled Provider:EUGENIO MAYEN DO Location:[facility] Appointment Type:PC OV Future Scheduled Tests Laboratory* [...] 02/16/22 * XR Spine Lumbar AP/LAT 12/07/21 [facility] Evaluation + Plan note Future Appointments Appointment Date:03/07/2022 11:15:00 AM Scheduled Provider:MARCELL RAMSEY MD Location:[facility] Appointment Type:PM MANAGER BEHAVIORAL Appointment Date:05/29/2022 11:30:00 AM Scheduled Provider:EUGENIO MAYEN DO Location:[facility] Appointment Type:PC OV Future Scheduled Tests Laboratory* [...] 02/16/22 * XR Spine Lumbar AP/LAT 12/07/21 [facility] Evaluation + Plan note Future Appointments Appointment Date:05/29/2022 11:30:00 AM Scheduled Provider:EUGENIO MAYEN DO [facility] Appointment Type:PC OV Future Scheduled Tests [...] 02/16/22 * XR Spine Lumbar AP/LAT 12/07/21 [facility] Evaluation + Plan note Future Appointments Appointment Date:04/12/2022 08:30:00 AM Scheduled Provider:PATRICIA CORTÉS MD Location:[facility] Appointment Type:WALTER MANAGER BEHAVIORAL Appointment Date:05/29/2022 11:30:00 AM Scheduled Provider:EUGENIO MAYEN DO Location:[facility] Appointment Type:PC OV Future Scheduled Tests [...] 02/16/22 * XR Spine Lumbar AP/LAT 12/07/21 [facility] Evaluation + Plan note Future Appointments Appointment Date:07/27/2022 02:00:00 PM Scheduled Provider:EUGENIO MAYEN DO [facility] Appointment Type:PC OV Follow Up Future [...] 02/16/22 * XR Spine Lumbar AP/LAT 12/07/21 [facility] Evaluation + Plan note Future Appointments Appointment Date:09/19/2022 01:30:00 PM Scheduled Provider: Location:[facility] Appointment Type:US Renal Appointment Date:09/22/2022 02:00:00 PM Scheduled Provider:EUGENIO MAYEN DO [facility] Appointment Type: OV Future Scheduled Tests Laboratory* [...] 08/30/22 * XR Spine Lumbar AP/LAT 12/07/21 [facility] Evaluation + Plan note Future Appointments Appointment Date:09/22/2022 02:00:00 PM Scheduled Provider:EUGENIO MAYEN DO [facility] Appointment Type:PC OV Future Scheduled Tests [...] 02/16/22 * XR Spine Lumbar AP/LAT 12/07/21 [facility] Evaluation + Plan note Future Appointments Appointment Date:10/27/2022 02:30:00 PM Scheduled Provider:EUGENIO MAYEN DO Location:[facility] Appointment Type:PC OV Future Scheduled Tests Laboratory* [...] 02/16/22 * XR Spine Lumbar AP/LAT 12/07/21 [facility] Evaluation + Plan note Future Appointments Appointment Date:12/06/2022 01:30:00 PM Scheduled Provider:EUGENIO MAYEN DO Location:[facility] Appointment Type:PC OV Appointment Date:12/13/2022 02:30:00 PM Scheduled Provider: Location:[facility] Appointment Type:PF PFT w/Bronchodiltor Future Scheduled Tests [...] 02/16/22 * XR Spine Lumbar AP/LAT 12/07/21 [facility] Evaluation + Plan note Future Appointments Appointment Date:12/15/2022 01:30:00 PM Scheduled Provider: Location:[facility] Appointment Type:BD Bone Density DEXA Axial Skeleton Appointment Date:01/04/2023 02:00:00 PM Scheduled Provider:EUGENIO MAYEN DO Location:[facility] Appointment Type:PC OV Future Scheduled Tests Laboratory* Urinalysis 10/26/22 * Complete Blood Count 04/28/22 Radiology* XR Foot Minimum 3 Views Left 03/30/22 * BD Bone Density DEXA Axial Skeleton 12/15/22 * XR Elbow Minimum 3 Views Right 07/27/22 * MRI Spine Lumbar w/ + w/o Contrast 02/16/22 [facility] Evaluation + Plan note Future Appointments Appointment Date:01/04/2023 02:00:00 PM Scheduled Provider:EUGENIO MAYEN DO Location:[facility] Appointment Type:PC OV Future Scheduled Tests Laboratory* Urinalysis 10/26/22 * Complete Blood Count 04/28/22 Radiology* XR Foot Minimum 3 Views Left 03/30/22 * XR Elbow Minimum 3 Views Right 07/27/22 * MRI Spine Lumbar w/ + w/o Contrast 02/16/22 [facility] Evaluation + Plan note Future Appointments Appointment Date:08/15/2023 01:30:00 PM Scheduled Provider: Location:[facility] Appointment Type:GI OV Consult Appointment Date:08/23/2023 01:30:00 PM Scheduled Provider:EUGENIO MAYEN DO Location:[facility] Appointment Type:PC OV Future Scheduled Tests Laboratory* [...] 07/23/23 Radiology* CT Thorax w/o Contrast 08/10/23 [facility] Evaluation + Plan note Future Appointments Appointment Date:12/17/2023 02:00:00 PM Scheduled Provider:EUGENIO MAYEN DO Location:[facility] Appointment Type:PC OV Diagnostic Tests Pending * Varicella Zoster Antibody 12/07/23 * Rubella Antibody 12/07/23 * Rubeola IgG Antibody 12/07/23 * Mumps Antibody 12/07/23 Future Scheduled Tests Radiology* NM Myocardial Spect Rest/Stress 10/10/23 [facility] Evaluation + Plan note Future Appointments Appointment Date:10/02/2024 10:00:00 AM Scheduled Provider:EUGENIO MAYEN DO Location:[facility] Appointment Type:PC OV Appointment Date:11/06/2024 10:30:00 AM Scheduled Provider:EUGENIO MAYEN DO Location:[facility] Appointment Type:PC OV Future Scheduled Tests Laboratory* Urine Culture 07/02/24 Radiology* CT Thorax w/o Contrast 12/01/24 * NM Myocardial Spect Rest/Stress 10/10/23 [facility] Evaluation + Plan note Future Appointments Appointment Date:12/03/2024 11:00:00 AM Scheduled Provider:EUGENIO MAYEN DO Location:[facility] Appointment Type:PC OV Appointment Date:12/18/2024 09:00:00 PM Scheduled Provider: Location:[facility] Appointment Type:PC Nurse Lab Appointment Date:01/01/2025 10:00:00 AM Scheduled Provider:EUGENIO MAYEN DO Location:[facility] Appointment Type:PC Wellness Annual Future Scheduled Tests Laboratory* Ferritin 12/31/24 * Prostate Specific Antigen 12/31/24 * Urine Culture 07/02/24 * A1C Hemoglobin 12/31/24 * Complete Blood Count 12/31/24 * Lipid Profile 12/31/24 * Vitamin D Level 12/31/24 * Complete Metabolic Panel 12/31/24 Radiology* CT Thorax w/o Contrast 12/01/24 [facility] Evaluation + Plan note Future Appointments Appointment Date:05/20/2025 08:15:00 AM Scheduled Provider: Location:[facility] Appointment Type:NM Myocardial Spect Rest/Stress Shabana Appointment Date:05/20/2025 02:00:00 PM Scheduled Provider:EUGENIO MAYEN DO Location:[facility] Appointment Type:TONY Wellness Annual Appointment Date:08/05/2025 10:30:00 AM Scheduled Provider:EUGENIO MAYEN DO Location:[facility] Appointment Type:PC OV Future Scheduled Tests Laboratory* Urine Culture 07/02/24 Radiology* CT Thorax w/o Contrast 01/15/25 * MRI Shoulder w/o Contrast Left 04/02/25 * NM Myocardial Spect Rest/Stress 05/20/25 [facility] Evaluation noteNo assessment information available [facility] Work Phone: Evaluation note* Diagnosis Acute sciatica- Primary documented in this encounter [facility] Work Phone: Evaluation note* Diagnosis Anal fissure- Primary documented in this encounter [facility] note* Diagnosis Other fracture of unspecified lumbar vertebra, initial encounter for closed fracture (HCC)- Primary Lumbar burst fracture, sequela documented in this encounter [facility] note* Diagnosis Chronic pain syndrome- Primary documented in this encounter [facility] note* Diagnosis Chest pain, unspecified type- Primary Pain of right lower extremity Acute right-sided low back pain with right-sided sciatica documented in this encounter [facility] course Narrative No data available for this section [facility] Hospital Discharge instructions No data available for this section [facility] Hospital Discharge instructions Additional Instructions Please follow-up with your PCP and return for any worsening of your symptoms. Begin taking MiraLAX daily.[facility] Work Phone: Hospital Discharge instructions Additional Instructions Continue your oxycodone as previously prescribed to take for pain.[facility] Work Phone: Hospital Discharge instructions Additional Instructions Ice to affected area 3 times a day for approximately 10 to 15 minutes each. Elevate your left foot when possible.[facility] Work Phone: Hospital Discharge instructions Additional [...] oral fluids for hydration. Follow-up with your doctor.[facility] Work Phone: Hospital Discharge instructionsAdditional Instructions Follow-up with primary care physician. Tylenol as needed for pain. Return back to the ED if symptoms change or worsen. Walker as needed for ambulation. Will RICE for swelling.[facility] Work Phone: Hospital Discharge instructionsAdditional Instructions Continue your Percocet that was recently prescribed. Take this as needed for pain. Take Flexeril at bedtime as needed for muscle spasm.[facility] Work Phone: Progress note No data available for this section [facility] Reason for referral (narrative)No reason for referral information availableWFostoria [facility] Work Phone: Summary Purpose Family History No Family History Records FoundUnknown Family Member Name Dates Details : Mother Status:Active Alive and well: Father, Chil d, Sibling Comments:No family history o f colon cancer; Status:Active Relationship Condition Age at Onset Recorded Date/T nelly Not Specified Diabetes mellitus Unknown Cardiac disease Unknown Malignant neoplasm Unknown Advance Directives No Advanced Directives Records Found Advance Directive Response Recorded Date/ Time Living Will No February 27, 2022 7: 05pm Power of Manganese Wheeler No February 27, 2022 7:05pm Advance Directive Response Recorded Date/ Time Living Will No March 07, 2022 1 :31pm Power of Manganese Wheeler No March 07, 2022 1:31pm Advance Directive Response Recorded Date/ Time Living Will No March 09, 2022 1 0:31am Power of Manganese Wheeler No March 09, 2022 10:31am Advance Directive Response Recorded Date/ Time Living Will No March 23, 2022 1 1:30pm Power of Manganese Wheeler No March 23, 2022 11:30pm Advance Directive Response Recorded Date/ Time Living Will No April 02, 2022 9:47pm Power of Manganese Wheeler No April 02 9:47pm Advance Directive Response Recorded Date/ Time Living Will No April 14, 2022 5:45pm Power of Manganese Wheeler No April 14 5:45pm Advance Directive Response Recorded Date/ Time Living Will No April 16, 2022 2:51pm Power of Manganese Wheeler No April 16 2:51pm Advance Directive Response Recorded Date/ Time Name of Medical Power of Manganese Wheeler tee Antunez April 24, 2022 6:31pm Living Will Yes April 24, 2022 6 :31pm Power of Manganese Wheeler Yes April 24, 2022 6:31pm Advance Directive Response Recorded Date/ Time Name of Medical Power of Manganese Wheeler tee Antunez April 24, 2022 6:31pm Living Will No April 27, 2022 1 1:27am Power of Manganese Wheeler No April 27, 2022 11:27am Advance Directive Response Recorded Date/ Time Living Will No September 16, 2 022 11:06am Power of Manganese Wheeler No September 16, 2022 11:06am Advance Directive Response Recorded Date/ Time Living Will No January 13, 2023 9:03pm Power of Manganese Wheeler No January 13 9:03pm Advance Directive Response Recorded Date/ Time Living Will No February 11, 2023 2:26pm Power of Manganese Wheeler No February 11 2:26pm Documents on File Type Date Recorded Patient Shot Blaster Expl anation Advance Directive(s) 02/12/2023 11:06 AM Documents on File Type Date Recorded Patient Shot Blaster Expl anation Advance Directive(s) 02/12/2023 11:06 AM Advance Directive Response Recorded Date/ Time Living Will No May 31 10:26am Power of Manganese Wheeler No May 31, 2 023 10:26am Advance Directive Response Recorded Date/ Time Living Will No August 09 2:38pm Power of Manganese Wheeler No August 09, 2023 2:38pm Advance Directive Response Recorded Date/ Time Living Will No October 09, 2 023 1:19pm Power of Manganese Wheeler No October 09, 2023 1:19pm Advance Directive Response Recorded Date/ Time Living Will No 2024 8:35am Power of Manganese Wheeler No February 05 8:35am Advance Directive Response Recorded Date/ Time Living Will No November 25 11:51am Power of Manganese Wheeler No November 25, 2024 11:51am Living Will No November 05 3:44pm Power of Manganese Wheeler No November 05, 2024 3:44pm Living Will No January 01, 2025 2:17pm Power of Manganese Wheeler No January 01 2:17pm Advance Directive Response Recorded Date/ Time Living Will No November 25 11:51am Power of Manganese Wheeler No November 25, 2024 11:51am Living Will No January 03, 2025 4:51pm Power of Manganese Wheeler No January 03 4:51pm Living Will No November 05 3:44pm Power of Manganese Wheeler No November 05, 2024 3:44pm Living Will No January 01, 2025 2:17pm Power of Manganese Wheeler No January 01 2:17pm Advance Directive Response Recorded Date/ Time Living Will No November 25 11:51am Do you have a Healthcare Power of Manganese Wheeler? No November 25, 2024 11:51am Living Will No January 03, 2025 4:51pm Do you have a Healthcare Power of Manganese Wheeler? No January 03, 2025 4:51pm Living Will No January 01, 2025 2:17pm Do you have a Healthcare Power of Manganese Wheeler? No January 01, 2025 2:17pm Advance Directive Response Recorded Date/ Time Living Will No January 03, 2025 4:51pm Do you have a Healthcare Power of Manganese Wheeler? No January 03, 2025 4:51pm Living Will No January 01, 2025 2:17pm Do you have a Healthcare Power of Manganese Wheeler? No January 01, 2025 2:17pm Do you have a Healthcare Power of Manganese Wheeler? No April 04, 2025 2:33pm Advance Directive Response Recorded Date/ Time Living Will No January 03, 2025 4:51pm Do you have a Healthcare Power of Manganese Wheeler? No January 03, 2025 4:51pm Living Will No January 01, 2025 2:17pm Do you have a Healthcare Power of Manganese Wheeler? No January 01, 2025 2:17pm Do you have a Healthcare Power of Manganese Wheeler? No April 04, 2025 2:33pm Do you have a Healthcare Power of Manganese Wheeler? No April 26, 2025 8:48am Advance Directive Response Recorded Date/ Time Do you have a Healthcare Power of Manganese Wheeler? No April 04, 2025 2:33pm Do you have a Healthcare Power of Manganese Wheeler? No April 26, 2025 8:48am Do you have a Healthcare Power of Manganese Wheeler? No May 31, 2025 10:21am Advance Directive Response Recorded Date/ Time Do you have a Healthcare Power of Manganese Wheeler? No April 04, 2025 2:33pm Do you have a Healthcare Power of Manganese Wheeler? No April 26, 2025 8:48am Do you have a Healthcare Power of Manganese Wheeler? No May 31, 2025 10:21am Do you have a Healthcare Power of Manganese Wheeler? No June 11, 2025 8:32am Discharge Instructions * Instructions* Nas Leong MD - 06/26/2020 Follow-up her pain management physician and her primary doctor return of his any worsening problemsat all. * Attachments The following attachments cannot be sent through Care Everywhere. * Muscle Strain (Botswanan) * Wrist Sprain ([place]otswanan) documented in this encounter Assessments Diagnosis Lumbar [...] March 192024 9:49am Chief Complaint Admit Date LUMBAR SPINE March 19, 2025 9:49a m Room 1 March 19, 2025 10:25 am upper April 04, 2025 11:5 2am fall April 26, 2025 8:24a m fall May 31, 2025 9: 26am Chief Complaint Admit Date LUMBAR SPINE March 19, 2025 9:49a m Room 1 March 19, 2025 10:25 am upper April 04, 2025 11:5 2am fall April 26, 2025 8:24a m fall May 31, 2025 9: 26am BACK June 11, 2025 8: 31am Reason for Referral Specialty Diagnoses / Procedures Referred By Contac t Referred To Contact MR IMAGING Diagnoses Other fracture of unspecified lumbar vertebra, initial encounter for closed fracture (HCC) Procedures MRI LUMBAR SPINE WO IVCON MRI SPINAL CANAL LUMBAR W/O CONTRAST MATERIAL Pro Almonte MD [address] [phone] Mr Imaging Referral ID Status Reason Start Date Expiration Date Visits Requested Visits Authorized [id number] Pending Review Auto-Generat ed Referral 03/29/2023 04/27/2024 [...] section and content) DATE CREATED AUTHOR 04/16/2018 [facility] DATE CREATED AUTHOR AUTHOR'S ORGANIZ ATION 04/17/2018 [facility] DATE CREATED AUTHOR AUTHOR'S ORGANIZ ATION 11/03/2019 [facility] DATE CREATED AUTHOR AUTHOR'S ORGANIZ ATION 06/26/2020 [facility] DATE CREATED AUTHOR AUTHOR'S ORGANIZ ATION 01/13/2021 [facility] DATE CREATED AUTHOR AUTHOR'S ORGANIZ ATION 03/26/2022 [facility] DATE CREATED AUTHOR AUTHOR'S ORGANIZ ATION 03/27/2022 [facility] DATE CREATED AUTHOR AUTHOR'S ORGANIZ ATION 05/01/2023 [facility] DATE CREATED AUTHOR AUTHOR'S ORGANIZ ATION 05/24/2023 [facility] DATE CREATED AUTHOR AUTHOR'S ORGANIZ ATION 11/21/2023 [facility] DATE CREATED AUTHOR AUTHOR'S ORGANIZ ATION 12/12/2023 [facility] ([place]) DATE CREATED AUTHOR AUTHOR'S ORGANIZ ATION 03/01/2025 [facility] DATE CREATED AUTHOR AUTHOR'S ORGANIZ ATION 06/01/2025 [facility] DATE CREATED AUTHOR AUTHOR'S ORGANIZ ATION 06/13/2025 [facility] Reason for Visit (unrecogniz ed section and [...] Care Team (unrecognized sect ion and content) Outboard Motor Inspector Relationship Specialty Start Date End Date Eugenio Mayen IV, MD [address] [place] [address] PCP - General Family Medicine 09/07/22 Team Status: Active Member Role Status Dates Pebbles Grullon MANAGER BEHAVIORAL, MANAGER BEHAVIORAL-C Family Provider Active Dr. Eugenio Mayen , Primary Care Provider Active Team Status: Inactive Member Role Status Dates Dr. Eugenio Mayen , Primary Care Provider Active Dr. Timur Morris DO Attending Provider, Emergency P akash Active Team Status: Inactive Member Role Status Dates Dr. Eugenio Mayen DO Primary Care Provider Active Dr. Mark Sweeney DO Emergency Provider Active Team Status: Inactive Member Role Status Dates Dr. Eugenio Mayen DO Primary Care Provider Active Dr. Mark Sweeney DO Attending Provider, Emergency Provider Active Team Status: Inactive Member Role Status Dates Dr. Eugenio Mayen DO Primary Care Provider Active Dr. Ken Mari MD Emergency Provider Active Outboard Motor Inspector Relationship Specialty Start Date End Date Eugenio Mayen IV, [address] [place] [id number] PCP - General Family Medicine 09/07/22 Marcell Ramsey [address] [place] [id number] Referring Pain Management 01/17/23 Outboard Motor Inspector Relationship Specialty Start Date End Date Eugenio Mayen IV, DO [address] [place] [id number] PCP - General Family Medicine 09/07/22 Marcell Ramsey [address] [place] [id number] Referring Pain Management 01/17/23 Outboard Motor Inspector Relationship Specialty Start Date End Date Eugenio Mayen IV [address] [address] PCP - General Family Medicine 09/07/22 Marcell Ramsey [address] [place] [address] Referring Pain Management 01/17/23 Outboard Motor Inspector Relationship Specialty Start Date End Date Eugenio Mayen IV, DO [address] [place] [id number] PCP - General Family Medicine 09/07/22 Marcell Ramsey [address] [address] Referring Pain Management 01/17/23 Team Status: Inactive Member Role Status Dates Dr. Eugenio Mayen , Primary Care Provider Active Dr. Ken Mari MD Attending Provider, Emergency Pro vider Active Team Status: Inactive Member Role Status Dates Dr. Eugenio Mayen , Primary Care Provider Active Dr. Gene Cristina MD Emergency Provider Active Outboard Motor Inspector Relationship Specialty Start Date End Date Eugenio Mayen IV, DO [address] [place] [id number] PCP - General Family Medicine 09/07/22 Marcell Ramsey [address] [address] Referring Pain Management 01/17/23 Outboard Motor Inspector Relationship Specialty Start Date End Date Eugenio Mayen IV, DO [address] [place] [address] PCP - General Family Medicine 09/07/22 Marcell Ramsey [address] [address] Referring Pain Management 01/17/23 Team Status: Inactive Member Role Status Dates Dr. Eugenio Mayen DO Primary Care Provider Active Dr. Gene Cristina MD Attending Provider, Emergency Provider Active Team Status: Inactive Member Role Status Dates Dr. Eugenio Mayen , Primary Care Provider Active Dr. Nicolás Rojas DO Emergency Provider Active Team Status: Inactive Member Role Status Dates Dr. Eugenio Mayen DO Primary Care Provider Active Dr. Nicolás Rojas DO Attending Provider, Emergency Tiffanie bustos Active [...] 2024 End: November 18, 2024 Dr. Tyrone Fgaan MD Attending Provider Active S tart: November [...] January 03, 2025 End: January 03, 2025 Outboard Motor Inspector Relationship Specialty Start Date End Date Provider, [...] Inactive Member Role/Relationship Status Dates Dr. Eugenio Halko , DO Primary Care Provider Active Start: April 26, 2025 End: April 26, 2025 Dr. Husam Haynes DO Emergency Provider Activ e Start: April 26, 2025 End: April 26, 2025 Team Status: Inactive Member Role/Relationship Status [...] April 26, 2025 Dr. Husam Haynes DO Attending Provider Activ e Start: April 26, 2025 End: April 26, 2025 Dr. Husam Haynes DO Emergency Provider Activ e Start: April 26, 2025 End: April 26, 2025 Team Status: Inactive Member Role/Relationship Status Dates Dr. Eugenio Mayen DO Primary Care Provider Active Start: May 31, 2025 End: May 31, 2025 Dr. Abril Velarde DO Emergency Provider Active S tart: May 31, 2025 End: May 31, 2025 Team Status: Inactive Member Role/Relationship Status Dates Dr. Eugenio Mayen DO Primary Care Provider Active Start: May 31, 2025 End: May 31, 2025 Dr. Abril Velarde DO Attending Provider Active S tart: May 31, 2025 End: May 31, 2025 Dr. Abril Velarde , DO Emergency Provider Active S tart: May 31, 2025 End: May 31, 2025 Team Status: Inactive Member Role/Relationship Status Dates Dr. Eugenio Mayen , DO Primary Care Provider Active Start: June 11, 2025 End: June 11, 2025 Dr. Nicolás Rojas , DO Emergency Provider Active Start: June 11, 2025 End: June 11, 2025 Goals (unrecognized section and content) Goals [...] content) Care Team Personnel Name: ELENA LOONEY Position: P4 Advanced Practice Nurse Med Service: Active Provider Member Role: Pain Management Address: Address: [address] [place] [address] [address] Name: EUGENIO MAYEN DO Position: P4 Physician - Primary Care Med Service: Active Provider Member Role: Primary Care Physician Address: Address: [address] [place] [address] Name: MARCELL RAMSEY MD Position: P4 Physician - General Surgery Med Service: [facility] Pain Management Member Role: Pain Management Address: Address: [address] [place] [address] Pain Management [place], [place] [id number] [place] [address] Care Team Related Persons Name: FRANCO HUI Address: Home [address] [place], [place] [phone] [place] Address: Temporary [address] [place], [place] [id number] Name: JASMINE ANTUNEZ Address: Home [address] [place], [place] [id number] Care Team Personnel Name: ELENA LOONEY Position: P4 Advanced Practice Nurse Member Role: Pain Management Address: Address: [address] [place] [address] Pain Management [address] Name: EUGENIO MAYEN DO Position: P4 Physician - Primary Care Member Role: Primary Care Physician Address: Address: [address] [place] [address] Name: MARCELL RAMSEY MD Position: P4 Physician - General Surgery Member Role: Pain Management Address: Address: [address] [place] [address] [place] [address]- [place] Care Team Related Persons Name: FRANCO HUI Address: Home [address] [place], [place] [id number] [place] Address: Temporary [address] [place], [place] [phone] Name: JASMINE ANTUNEZ Address: Home [address] [place], [place] [phone] Care Team Personnel Name: ELENA LOONEY APRN-SECURITY AND PRIVACY CONSULTANT Position: P4 Advanced Practice Nurse Member Role: Pain Management Address: Address: [address] [place] [address] [facility] [place] [address]- [place] Name: EUGENIO MAYEN DO Position: P4 Physician - Primary Care Member Role: Primary Care Physician Address: Address: [address] [place] [address] [place] Name: MARCELL RAMSEY MD Position: P4 Physician - General Surgery Member Role: Pain Management Address: Address: [address] [place] [address] [place] [address] [place] Care Team Related Persons Name: FRANCO HUI Address: Home [address] [place], [place] [id number] [place] Address: Temporary [address] [place], [place] [phone] Name: JASMINE ANTUNEZ Address: Home [address] [place], [place] [phone] Care Team Personnel Name: ELENA LOONEY CLOTH LAMINATING SUPERVISOR-SECURITY AND PRIVACY CONSULTANT Position: P4 Advanced Practice Nurse Member Role: Pain Management Address: Address: [address] [place] [address] [facility] [place] [address]- [place] Name: EUGENIO MAYEN DO Position: P4 Physician - Primary Care Member Role: Primary Care Physician Address: Address: [address] [place] [address] [place] Name: MARCELL RAMSEY MD Position: P4 Physician - General Surgery Member Role: Pain Management Address: Address: [address] [place] [address] [facility] [place] [address] [place] Care Team Related Persons Name: EZ FRANCO L Address: Home [address] [place], [place] [id number] [place] Address: Temporary [address] [place] [phone] Name: SAPPHIRE JASMINE Address: Home [address] [place], [place] [phone] Care Team Personnel Name: ELENA LOONEY APRN-ANNE Position: P4 Advanced Practice Nurse Member Role: Pain Management Address: Address: [address] [place] [address] [place] [address]- Name: EUGENIO MAYEN DO Position: P4 Physician - Primary Care Member Role: Primary Care Physician Address: Address: [address] [place] [address]- Name: MARCELL RAMSEY MD Member Role: Pain Management Address: Address: [address] [place] [address] [place] [address]- Care Team Related Persons Name: FRANCO HUI Address: Home [address] [place], [place] [phone] [place] Address: Temporary [address] [place] [phone] Name: JASMINE ANTUNEZ Address: Home [address] [place], [place] [phone] Care Team Personnel Name: ELENA LOONEY APRN-SECURITY AND PRIVACY CONSULTANT Position: P4 Advanced Senior Technical Support Engineer Member Role: Pain Management Address: Address: [address] [place] [address] [place] [address]- Name: EUGENIO MAYEN DO Position: P4 Physician - Primary Care Member Role: Primary Care Physician Address: Address: [address] [place] [address]- Name: MARCELL RAMSEY MD Member Role: Pain Management Address: Address: [address] [place] [address] [place] [address] [place] Care Team Related Persons Name: FRANCO HUI Address: Home [address] [place] [phone] [place] Address: Temporary [address] [place] [phone] Name: JASMINE ANTUNEZ Address: Home [address] [place], [place] [phone] Care Team Personnel Name: LOONEY, ELENA A CLOTH LAMINATING SUPERVISOR-SECURITY AND PRIVACY CONSULTANT Position: P4 Advanced Senior Technical Support Engineer Member Role: Pain Management Address: Address: [address] [place] [address] [facility] [place] [address]- Name: EUGENIO MAYEN DO Position: P4 Physician - Primary Care Member Role: Primary Care Physician Address: Address: [address] [facility] [place], [place] [address] Name: MARCELL RAMSEY MD Member Role: Pain Management Address: Address: [address] [place] [address] [facility] [place] [address]- Care Team Related Persons Name: FRANCO HUI Address: Home [address] [place], [place] [id number] Address: [facility] [address] [place] [phone] Name: JASMINE ANTUNEZ Address: Home [address] [place], [place] [phone] Source Comments (unrecognize d section and content) In the event this informatio n is protected by the Federal Confidentiality of Alcohol and Drug Abuse Patient Records regulations: The Federal rules restrict any use of the information to criminally investigate or prosecute any alcohol or drug abuse patient.[facility] the event this information is protected by the Federal Confidentiality of Alcohol and Drug Abuse Patient Records regulations: The Federal rules restrict any use of the information to criminally investigate or prosecute any alcohol or drug abuse patient.[facility] the event this information is protected by the Federal Confidentiality of Alcohol and Drug Abuse Patient Records regulations: The Federal rules restrict any use of the information to criminally investigate or prosecute any alcohol or drug abuse patient.[facility] the event this information is protected by the Federal Confidentiality of Alcohol and Drug Abuse Patient Records regulations: The Federal rules restrict any use of the information to criminally investigate or prosecute any alcohol or drug abuse patient.[facility] the event this information is protected by the Federal Confidentiality of Alcohol and Drug Abuse Patient Records regulations: The Federal rules restrict any use of the information to criminally investigate or prosecute any alcohol or drug abuse patient.[facility] the event this information is protected by the Federal Confidentiality of Alcohol and Drug Abuse Patient Records regulations: The Federal rules restrict any use of the information to criminally investigate or prosecute any alcohol or drug abuse patient.[facility] Campus[facility] the event this information is protected by the Federal Confidentiality of Alcohol and Drug Abuse Patient Records regulations: The Federal rules restrict any use of the information to criminally investigate or prosecute any alcohol or drug abuse patient.[facility] the event this information is protected by the Federal Confidentiality of Alcohol and Drug Abuse Patient Records regulations: The Federal rules restrict any use of the information to criminally investigate or prosecute any alcohol or drug abuse patient.[facility] Campus[facility] the event this information is protected by the Federal Confidentiality of Alcohol and Drug Abuse Patient Records regulations: The Federal rules restrict any use of the information to criminally investigate or prosecute any alcohol or drug abuse patient.[facility] FOR RECORDS PERTAINING TO PATIENTS WHO ARE [...] BE BASED ON THE PRIMARY CLINICAL RECORDS. [facility]. provides no warranty or guarantee of the accuracy or completeness of information in this document.
[2025-06-15 19:56] VITALS: BP 154/91; PULSE 52; RESP 15; O2SAT 98
[2025-06-15 21:00] VITALS: BP 137/86; PULSE 61; RESP 15; O2SAT 99
--- NOTE | 2025-06-15 21:01 | EDS_ITS ---
HPI History of Present Illness Chief Complaint: Back Narrative Narrative: Patient is a 70-year-old male presenting to the emergency department for back pain. Patient has a past medical history as below including chronic history of back pain. States he was lifting a freezer with someone and felt something pull in his back. States this happened on and has been dealing with the pain since. Reports he has taken leftover Percocet for pain. Reports that he has a tingling sensation down his right sided butt and leg. Reports an episode of bowel incontinence while sleeping overnight? States this hasn't happened before. No bowel or bladder incontinence or retention during the day. No weakness of his leg. No fevers, headache, IV drug use. [facility] Medical History Left rotator cuff tear Anemia GERD (gastroesophageal reflux disease) Left shoulder pain Hemorrhoid Epilepsy Sciatica High cholesterol Home Medications ?Medication ?Instructions ?Recorded ?Last Taken ?Type gabapentin 300 mg capsule 400 mg PO 4X/DAY 04/02/22 Un known History hydrocortisone acetate 25 mg 25 mg WI QHS #12 ea 04/27 Unknown Rx rectal suppository (Anusol-HC) atorvastatin 40 mg tablet (Lipitor) 40 mg PO QHS 01/13 Unknown History polyethylene glycol 3350 17 17 g PO DAILY #119 grams 0 05/31/23 Unknown Rx gram/dose oral powder (ClearLax) cyclobenzaprine 5 mg tablet 5 mg PO TID PRN muscle spa sm 4 11/05/24 Unknown Rx days #12 tabs clopidogrel 75 mg tablet 75 mg PO QDAY 11/13/24 Unkno wn History duloxetine 30 mg capsule,delayed See Rx Instructions P O QDAY 11/13/24 Unknown History release ferrous sulfate 325 mg (65 mg 325 mg PO QDAY 11/13/24 Unknown History iron) tablet pantoprazole 40 mg tablet,delayed 40 mg PO QDAY Unknown History release ondansetron 4 mg disintegrating 4 mg PO Q8H PRN PRN Na usea #10 tabs 11/25/24 Un known Rx tablet oxycodone-acetaminophen 5 mg-325 1 tab PO Q6H PRN PRN Pain 3 days 05/31/25 Unknown Rx mg tablet #12 TABLETS cyclobenzaprine 10 mg tablet 10 mg PO QHS PRN PRN Musc le Spasm 06/11/25 Unknown Rx #10 TABLETS Allergy/AdvReac Type Severity Reaction Status Date / Time adhesive tape (tape) AdvReac Rash Verified 06/15/25 17:56 hydrocodone (From Paradox) AdvReac Upset Verified 06/15/25 17:56 Stomach ibuprofen AdvReac Upset Verified 06/15/25 17:56 Stomach ketorolac (From Toradol) AdvReac Rash Verified 06/15/25 17:56 meloxicam (From Mobic) AdvReac Muscle Verified 06/15/25 17:56 weakness naproxen AdvReac Rash Verified 06/15/25 17:56 tramadol AdvReac Upset Verified 06/15/25 17:56 Stomach Family History Other Cancer Diabetes Heart disease Surgical History Leg fracture, left S/P clamping of cerebral aneurysm Social History household members: significant other Smoking Status: Former smoker alcohol intake: former substance use type: does not use ROS ROS ED ROS Narrative See HPI EXAM Physical Exam Narrative Exam Narrative: Vital signs: Reviewed General: Alert and oriented. No acute distress HEENT: Head is normocephalic and atraumatic, sinuses nontender, pupils equal round and reactive. Nares are patent. Oropharynx and throat exams normal. Neck: Supple without lymphadenopathy nontender. No midline cervical spinal tenderness to palpation. No step-offs or deformities. Cardiovascular: Regular rate and rhythm, no murmurs. No rubs or gallops. Normal S1 and S2 Respiratory: Clear to auscultation bilaterally. No wheezes, rales, rhonchi Abdominal: Soft and nontender. Normal bowel sounds. No guarding or rebound. Nonsurgical abdomen Extremities: There is midline thoracic and lumbar spinal tenderness to palpation diffusely. No step-offs or deformities. Strength is 5 out of 5 in bilateral lower extremities. Sensation intact in bilateral lower extremities. Skin: No rash or redness. Neurological: Cranial nerves II through XII are grossly intact. Normal strength and sensation. Normal cerebellar function The rest of the physical exam is unremarkable Const Vital Signs: 06/15/25 17:57 06/15/25 19:56 06/15/25 21:00 Temperature 98.3 F Temperature Source Temporal Pulse Rate 76 52 L 61 Respiratory Rate 15 15 15 Blood Pressure 128/76 H 154/91 H 137/86 H Blood Pressure Mean 93 112 103 Pulse Ox 99 98 99 Oxygen Delivery Method Room Air Room Air Room Air 06/15/25 23:00 06/15/25 23:42 Temperature 97.9 F Temperature Source Pulse Rate 60 59 L Respiratory Rate 22 H 18 Blood Pressure 155/73 H Blood Pressure Mean 100 Pulse Ox 95 100 Oxygen Delivery Method Room Air MDM MDM MDM Narrative Medical decision making narrative: Patient is a 70-year-old male presenting to the emergency department for back pain. Seen and examined. Vitals are stable. Resting in bed comfortably, no acute distress. Patient given morphine for symptomatic control. Initially with the episode of bowel incontinence, MRI was considered however patient has had previous aortic surgery and is not a candidate for this time given it is unknown if he had any clip or coiling. I think the likelihood of cauda equina is very low given he has had no bowel or bladder incontinence or retention today and he urinated normally while being here. NO saddle anesthesia. He has normal strength and sensation in his lower extremities. The way the pain is described sounds like sciatica. Feels similar to previous back strains he states. CT of the thoracic and lumbar spines were ordered. No neuro deficits, fever, or iv drug use to suspect spinal epidural abscess. These show no evidence of acute fracture or malalignment. Similar appearance as seen prior with several mild chronic superior endplate compression fracture deformities of T6, T9, L2, L4 and L5. Right after coming back from CT, patient continued to complain of pain, additional analgesia given. When I evaluated the patient updated him on the negative CT findings. Pain is well-controlled. He is able to ambulate without difficulty. Before I could discuss medications for home with the patient for discussed return precautions, patient eloped from the emergency department. Clinical impression Back pain Sciatica History & Record Review Discussion w/independent historian: Patient Additional record(s) reviewed:: Prior ED visit Radiography Diagnostic Testing: Clinical Impression(s) from Imaging Studies Lumbar Spine CT 06/15/25 21:49 IMPRESSION: No evidence of acute fracture or malalignment. Similar appearance of mild multilevel spondylotic changes, and several mild chronic superior endplate compression fracture deformities of T6, T9, L2, L4 and L5. Reading Location: [facility] Thoracic Spine CT 06/15/25 21:49 IMPRESSION: No evidence of acute fracture or malalignment. Similar appearance of mild multilevel spondylotic changes, and several mild chronic superior endplate compression fracture deformities of T6, T9, L2, L4 and L5. Reading Location: [facility] Discharge Plan Triage Chief Complaint: Back ED Provider: Kezia Gonzales Dx/Rx/DC Orders Prescriptions: No Action ferrous sulfate 325 mg (65 mg iron) tablet 325 mg PO QDAY pantoprazole 40 mg tablet,delayed release (DR/EC) 40 mg PO QDAY gabapentin 300 mg capsule 400 mg PO 4X/DAY hydrocortisone acetate [Anusol-HC] 25 mg suppository 25 mg WI QHS Qty: 12 0RF atorvastatin [Lipitor] 40 mg Tablet 40 mg PO QHS polyethylene glycol 3350 [ClearLax] 17 gram/dose powder 17 g PO DAILY Qty: 119 0RF clopidogrel 75 mg tablet 75 mg PO QDAY Patient Comments: TAKE 1 TABLET BY MOUTH EVERY DAY duloxetine 30 mg capsule,delayed release(DR/EC) See Rx Instructions PO QDAY Patient Comments: TAKE 2 CAPSULE BY MOUTH in AM and 1 cap at night Rx Instructions: orally daily; ondansetron 4 mg tablet,disintegrating 4 mg PO Q8H PRN PRN (Reason: Nausea) Qty: 10 0RF cyclobenzaprine 5 mg tablet 5 mg PO TID PRN (Reason: muscle spasm) 4 Days Qty: 12 0RF oxycodone-acetaminophen 5-325 mg tablet 1 tab PO Q6H PRN PRN (Reason: Pain) 3 Days Qty: 12 0RF Patient Comments: pt reports taking the last two this morning on 06/15/25 cyclobenzaprine 10 mg tablet 10 mg PO QHS PRN PRN (Reason: Muscle Spasm) Qty: 10 0RF Primary Care Provider: Jefferson Gregorio Referrals: Jefferson Gregorio DO [Primary Care Provider] - Print Language: Tamazight Disposition Disposition: Home, Self Care Discharge Date/Time: 06/15/25 23:51
--- NOTE | 2025-06-15 21:49 | CT_ITS ---
PROCEDURE: CT SPINE THORACIC; SPINE LUMBAR WITHOUT CONTRAST 06/15/2025 REASON FOR EXAM: BACK PAIN; MIDLINE BACK PAIN TECHNIQUE: CT of the thoracic and lumbar spine without contrast. Coronal and Sagittal reconstruction series were provided. One or more dose reduction techniques were used (e.g., Automated exposure control, adjustment of the mA and/or kV according to patient size, use of iterative reconstruction technique). RADIATION DOSE SUMMARY: DLP: 1288.28 mGycm COMPARISON: 04/26/2025. FINDINGS: No evidence of acute fracture. Stable appearance of multiple chronic appearing mild superior endplate compression fracture deformities involving T6, T9, L2, L4 and L5 vertebral bodies. No subluxation or retropulsion. No significant spinal canal or high-grade osseous neural foraminal narrowing. Mild multilevel spondylotic changes with varying degrees of disc space narrowing with vacuum disc phenomena, endplate sclerosis, anterior endplate osteophytosis, and hypertrophic facet arthropathy. Unremarkable paravertebral soft tissues. Mild-moderate bilateral centrilobular pulmonary emphysema. Unchanged 6 mm nodule in the right lower lobe, probably postinflammatory but nonspecific. Calcified left mediastinal/hilar lymph nodes, and numerous calcified granulomas in the spleen suggesting a prior granulomatous process. Few bilateral simple appearing renal cysts. Moderate aortoiliac atherosclerotic disease, with stable mild fusiform ectasia of the infrarenal abdominal aorta. CT/Spine Thoracic without Contras IMPRESSION: No evidence of acute fracture or malalignment. Similar appearance of mild multi level spondylotic changes, and several mild chronic superior endplate compression fracture deformities of T6, T9, L2, L4 an d L5. Reading Location: [id number]
[2025-06-15] MEDS: HYDROcodone Bitartrate/Apap 5/325 Tablet PO (22:30)
[2025-06-15 23:00] VITALS: PULSE 60; RESP 22; O2SAT 95
[2025-06-15 23:42] VITALS: BP 155/73; PULSE 59; RESP 18; TEMP 36.6; O2SAT 100
--- NOTE | 2025-06-16 00:14 | ED.RN ---
pt stated that he did not want to wait for D/C paperwork since brother was outside waiting to take him home. IV taken out, informed pt that he does not have to wait for paperwork but it is recommended. pt still wanted to leave
== END 2025-06-15 23:51 | disposition home or self-care (01) ==
PROVIDERS: Emergency Provider Student in an Organized Health Care Education/Training Program; PCP Student in an Organized Health Care Education/Training Program; Visit Provider Student in an Organized Health Care Education/Training Program
DX: M54.30 Sciatica, unspecified side (principal); E78.00 Pure hypercholesterolemia, unspecified; Z87.891 Personal history of nicotine dependence; X50.0XXA Overexertion from strenuous movement or load, initial encounter; K21.9 Gastro-esophageal reflux disease without esophagitis; Z79.899 Other long term (current) drug therapy; D64.9 Anemia, unspecified
CPT/HCPCS: 72128; 72131; 96372; 99283; A4216

== ENCOUNTER 2025-08-26 11:48 | Emergency (ER) | payer MEDICAID, SELFPAY ==
[2025-08-26] VITALS (7 sets, daily range): BP systolic 119–158; BP diastolic 72–91; PULSE 49–74; RESP 14–19; TEMP 36.4; O2SAT 98–100; BMI 24.1
--- NOTE | 2025-08-26 12:14 | RAD_ITS ---
PROCEDURE: RAD/Foot min 3 Views
--- NOTE | 2025-08-26 12:14 | CT_ITS ---
PROCEDURE: CT/CT Chest, Abd, Pel w/Contrast
--- NOTE | 2025-08-26 12:14 | CT_ITS ---
PROCEDURE: CT/Brain/Head without Contrast
--- NOTE | 2025-08-26 12:14 | CT_ITS ---
PROCEDURE: CT/Spine Cervical without Contras
--- NOTE | 2025-08-26 12:14 | RAD_ITS ---
PROCEDURE: RAD/Ankle min 3 Views
--- NOTE | 2025-08-26 12:14 | RAD_ITS ---
RAD/Shoulder min 2 Views
--- NOTE | 2025-08-26 12:14 | RAD_ITS ---
RAD/Chest 1 View (Portable)
--- NOTE | 2025-08-26 12:14 | RAD_ITS ---
PROCEDURE: RAD/HIP, UNI W/ Pelvis 2-3 Views
--- NOTE | 2025-08-26 12:18 | ED.VIS.FALL ---
HPI HPI - Fall History of Present Illness Chief Complaint: Trauma Informant: patient and EMS Narrative Narrative: Patient is a 70-year-old male presenting to the ED after a fall from a ladder, with multiple areas of pain. - Patient was cutting tree limbs high up on a 16-foot ladder when he fell, landing on grass. - Reports pain in the left side of his chest and abdomen, right arm, left hip, left leg, back, and neck. - Describes neck pain as a stabbing sensation when turning to the left. - Uncertain if he hit his head during the fall; reports head pain and blurry vision. - Denies loss of consciousness; remembers falling but not hitting the ground. - Reports some mild difficulty breathing. - On Plavix for suspected blood clots due to a previous leg injury and age. - History of left femur ortho surgery at age 19 due to injury. [facility] Medical History Wears glasses Wears dentures Unsteady gait Spermatocele Scrotal swelling Screen for colon cancer Right nephrolithiasis Renal lesion Prostatosis syndrome Peyronie disease PVD (peripheral vascular disease) Need for hepatitis C screening test Meniscus degeneration Major depression in remission Lung nodules Lumbar radiculopathy Lumbar foraminal stenosis Left wrist pain Left leg weakness Iron deficiency Immunity status testing High risk medication use Former smoker Foot pain Family history of Vern's disease Chronic, continuous use of opioids Chronic pain Calcified granuloma of lung CAD (coronary artery disease) Brain aneurysm BPH (benign prostatic hyperplasia) Aortic atherosclerosis Anal fissure Abnormal EKG Former cigarette smoker Osteopenia COPD with emphysema Left rotator cuff tear Anemia GERD (gastroesophageal reflux disease) Left shoulder pain Hemorrhoid Epilepsy Sciatica High cholesterol Home Medications ?Medication ?Instructions ?Recorded ?Last Taken ?Type gabapentin 300 mg capsule 400 mg PO 4X/DAY 04/02/22 Unknown History hydrocortisone acetate 25 mg 25 mg NM QHS #12 ea 04/27/22 Unknown Rx rectal suppository (Anusol-HC) atorvastatin 40 mg tablet (Lipitor) 40 mg PO QHS 01/13/23 Unknown History polyethylene glycol 3350 17 17 g PO DAILY #119 grams 05/31/23 Unknown Rx gram/dose oral powder (ClearLax) cyclobenzaprine 5 mg tablet 5 mg PO TID PRN muscle spasm 4 11/05/24 Unknown Rx days #12 tabs clopidogrel 75 mg tablet 75 mg PO QDAY 11/13/24 Unknown History duloxetine 30 mg capsule,delayed See Rx Instructions PO QDAY 11/13/24 Unknown History release ferrous sulfate 325 mg (65 mg 325 mg PO QDAY 11/13/24 Unknown History iron) tablet pantoprazole 40 mg tablet,delayed 40 mg PO QDAY 11/13/24 Unknown History release ondansetron 4 mg disintegrating 4 mg PO Q8H PRN PRN Nausea #10 tabs 11/25/24 Unknown Rx tablet cyclobenzaprine 10 mg tablet 10 mg PO QHS PRN PRN Muscle Spasm 06/11/25 Unknown Rx #10 TABLETS Diltiazem TNF med topical 07/31/25 Unknown History acetaminophen 500 mg tablet 500 mg PO Q8 07/31/25 Unknown History albuterol sulfate 90 mcg/actuation 2 puff inhalation Q4 07/31/25 Unknown History aerosol inhaler denosumab 60 mg/mL subcutaneous 60 mg subcut [id number] 07/31/25 Unknown History syringe diltiazem HCl 120 mg tablet mg PO 07/31/25 Unknown History finasteride 5 mg tablet 5 mg PO DAILY 07/31/25 Unknown History fluticasone propionate 220 2 puff inhalation BID 07/31/25 Unknown History mcg/actuation HFA aerosol inhaler hydrocortisone 1 % topical cream applic topical BID 07/31/25 Unknown History oxycodone-acetaminophen 10 mg-325 1 tab PO Q6 07/31/25 Unknown History mg tablet oxycodone-acetaminophen 7.5 mg-325 1 tab PO Q6 07/31/25 Unknown History mg tablet psyllium husk 3.4 gram oral powder 3.4 g PO TID PRN 07/31/25 Unknown History packet (Daily Fiber (psyllium-aspartame)) sennosides 8.6 mg tablet (senna) 17.2 mg PO PRN constipation 07/31/25 Unknown History tiotropium 2.5 mcg-olodaterol 2.5 2 puff inhalation DAILY 07/31/25 Unknown History mcg/actuation mist for inhalation (Stiolto Respimat) oxycodone-acetaminophen 5 mg-325 1 tab PO Q6H PRN PRN Pain 3 days 08/26/25 Unknown Rx mg tablet #12 TABLETS Allergy/AdvReac Type Severity Reaction Status Date / Time lidocaine (From Lidoderm) Allergy Mild Rash Verified 08/26/25 11:52 cyclobenzaprine (From Allergy Unknown Itching, Verified 08/26/25 11:52 Flexeril) rash tamsulosin (From Flomax) Allergy Unknown Itching Verified 08/26/25 11:52 buprenorphine AdvReac Intermediate Nausea Verified 08/26/25 11:52 acetaminophen (From Vicodin) AdvReac Unknown unknown Verified 08/26/25 11:52 codeine AdvReac Unknown Nausea Verified 08/26/25 11:52 docusate AdvReac Unknown Itching Verified 08/26/25 11:52 nabumetone AdvReac Unknown Shortness Verified 08/26/25 11:52 of breath adhesive tape (tape) AdvReac Rash Verified 08/26/25 11:52 hydrocodone (From Amelia) AdvReac Upset Verified 08/26/25 11:52 Stomach ibuprofen AdvReac Upset Verified 08/26/25 11:52 Stomach ketorolac (From Toradol) AdvReac Rash Verified 08/26/25 11:52 meloxicam (From Mobic) AdvReac Muscle Verified 08/26/25 11:52 weakness naproxen AdvReac Rash Verified 08/26/25 11:52 tramadol AdvReac Upset Verified 08/26/25 11:52 Stomach Family History (Updated 07/31/25 @ 10:33 by Dodie Luna LPN) Mother Cancer Heart disease Father Diabetes Heart disease Surgical History H/O craniotomy S/P cerebral aneurysm repair Leg fracture, left S/P clamping of cerebral aneurysm Social History (Updated 07/31/25 @ 10:32 by Dodie Luna LPN) household members: significant other current occupational status: retired Smoking Status: Former smoker alcohol intake: former substance use type: does not use ROS ROS ED Constitutional Constitutional ED: Denies chills or fever(s) Eyes Eyes: Denies change in vision or diplopia ENT ENT ED: Denies ear pain, epistaxis, facial pain or rhinorrhea Cardiovascular Cardiovascular: Reports chest pain; Denies palpitations Respiratory/Chest Respiratory/Chest: Reports dyspnea; Denies cough Gastrointestinal Gastrointestinal: Reports abdominal pain; Denies diarrhea, melena, nausea or vomiting Genitourinary Genitourinary ED: Denies dysuria or hematuria Musculoskeletal Musculoskeletal: Reports back pain and extremity pain; Denies neck pain Integumentary Denies abscess, Abrasions, laceration or rash Neurologic Neurologic: Reports headache(s); Denies confusion, paresthesias or weakness EXAM Physical Exam Const Vital Signs: 08/26/25 11:49 08/26/25 11:59 08/26/25 12:18 Temperature 97.5 F L Temperature Source Temporal Pulse Rate 66 74 Respiratory Rate 17 16 Respiratory Effort Normal Respiratory Depth Normal Respiratory Pattern Normal Blood Pressure 119/72 132/74 H Blood Pressure Mean 87 93 Pulse Ox 99 98 Oxygen Delivery Method Room Air Room Air Room Air 08/26/25 13:00 08/26/25 13:30 08/26/25 14:00 Temperature Temperature Source Pulse Rate 61 62 49 L Respiratory Rate 17 14 18 Respiratory Effort Respiratory Depth Respiratory Pattern Blood Pressure 136/91 H 133/88 H 158/83 H Blood Pressure Mean 106 103 108 Pulse Ox 98 100 Oxygen Delivery Method Room Air Room Air 08/26/25 14:30 08/26/25 14:49 Temperature 97.5 F L 97.5 F L Temperature Source Temporal Pulse Rate 53 L 53 L Respiratory Rate 19 H 19 H Respiratory Effort Respiratory Depth Respiratory Pattern Blood Pressure 158/83 H 158/83 H Blood Pressure Mean 108 108 Pulse Ox 98 98 Oxygen Delivery Method Room Air Positive well nourished and well developed General Appearance ED: well developed and NAD HEENT Reports TM's clear and nasal mucous membranes and turbinates normal HEENT Narrative: Tenderness left occipital scalp without hematoma, crepitus, or evidence of trauma. No Borja sign, no raccoon eyes, no CSF otorhinorrhea, no hemotympanum. trauma Face and Sinus: Negative for facial tenderness Tympanic Membrane ED: Yes TM's clear Eyes PERRL and EOMs intact bilaterally Visual Acuity: other Other Details: no entrapment or pain with extraocular movements Neck Neck Narrative: Diffuse midline tenderness prehospital c-collar inline traction maintained General: Negative for tenderness Chest Wall inspection of chest normal and palpation of chest normal Chest: symmetrical chest wall rise; Negative for crepitus or tenderness Resp normal respiratory effort and clear to auscultation bilaterally Resp Narrative: Splints with deep inspiration. Tender throughout the left rib cage no deformity flail or obvious signs of trauma. Sternum nontender. Equal breath signs present bilaterally no tachycardia. Percussion: other equal BS bilat Cardio no murmurs Rate: regular rate Rhythm: regular rhythm GI normal to inspection, nondistended, normoactive bowel sounds and soft to palpation GI Narrative: Mild tenderness left flank with no [place] sign or [place] Nap[place] sign or distention. No guarding or rebound. Back/Spine normal ROM Back/Spine Narrative: Areas of tenderness throughout the spine without any step-offs or obvious signs of trauma throughout the back Cervical Spine: cervical spine tenderness Thoracic Spine / Upper Back: thoracic spinal tenderness Lumbar Spine / Lower Back: lumbar spinal tenderness Extremity normal to inspection Extremity Narrative: Tender to left greater trochanter with limited range of motion due to pain. Tenderness in the left medial and lateral malleoli without swelling or deformity and tenderness in the dorsum of the left midfoot with some mild swelling and erythema there. Tenderness throughout the left proximal humerus/shoulder with limited range of motion but no deformity. Also some tenderness extending to the left acromioclavicular joint without deformity. No other upper extremity focal tenderness. Neurovascular intact distally all 4 extremities. All compartments are soft and nondistended without deformities. General Extremety ED: Yes tenderness Neuro oriented x3, CN's II-XII intact bilaterally, moves all extremities, no focal motor deficits and no sensory deficits noted [place] Coma Scale: document GCS findings Spontaneous Obeys Commands Oriented 15 Sensorium / Orientation: awake and alert Psych mental status grossly normal and thought process normal Skin no wounds Lesions: no lesions Rashes: no rashes MDM MDM MDM Narrative Medical decision making narrative: The patient sustained a fall from an extended height onto his left side, with multi-system involvement and a high potential for injury. For this reason, we performed amador-scanning of his thorax, head, and neck in addition to x-raying the extremities that were focally injured. I reviewed these images. I obtained a stat portable chest X-ray to rule out pneumothorax, given his shortness of breath. My interpretation showed no pneumothorax, so he proceeded to X-ray and CT for more advanced imaging. He underwent a three-view X-ray series of the left hip, which was normal in my interpretation, as were the three-view series of the left ankle and left foot. A three-view X-ray series of the left shoulder, including an axillary view, showed evidence of an old mid-humeral shaft fracture without any acute fracture. I was initially more suspicious for a proximal humerus fracture, but that was not identified. He does have tenderness in the acromioclavicular joint, and since it does not appear widened on the X-ray, I suspect a grade 1 AC separation, given his localized pain. Regarding CT scans of the head, cervical spine, and thorax/abdomen/pelvis with contrast, I noted no obvious acute injuries. Radiology concurred that there is no organ injury, no pulmonary contusion, and no obvious displaced rib fractures. I explained to the patient that it is possible to have a nondisplaced rib fracture that does not appear on initial CT scans but could still cause pain. He was able to stand and walk without difficulty, and he does not have focal groin pain or limitations in weight-bearing, so I do not believe emergent MRI or further advanced imaging is necessary for any joint at this time. We offered him a sling and pain medication, and he reports some benefit from the sling for his left upper extremity. Because he is not anticoagulated, has no internal injuries, normal vital signs, no hypoxia, and is breathing well, I believe he can be managed as an outpatient with a prescription for analgesics. Given his rib cage injury, we will provide an incentive spirometer and instructions for its use to help prevent pneumonia. I discussed all of these findings and the plan with him. I recommended orthopedic follow-up regarding his shoulder. He is comfortable with this plan, and we reviewed the reasons to return for further evaluation. Lab Data Attestation: I reviewed the patient's lab results. Labs: Laboratory Results - last 24 hr 08/26/25 08/26/25 08/26/25 12:02 12:36 13:30 WBC 7.1 RBC 3.55 L Hgb 11.0 L Hct 33.6 L MCV 94.6 H MCH 31.0 MCHC 32.7 RDW Std Deviation 45.0 H RDW Coeff of Jerry 12.9 Plt Count 382 MPV 8.8 Immature Gran % (Auto) 0.400 Neut % (Auto) 60.1 Lymph % (Auto) 26.3 Door % (Auto) 8.4 Eos % (Auto) 4.1 Baso % (Auto) 0.7 Absolute Neuts (auto) 4.2 Absolute Lymphs (auto) 1.86 Nucleated RBC % 0 PT 13.5 INR 1.0 APTT 28.3 Sodium 137 Potassium 4.3 Chloride 104 Carbon Dioxide 23.0 Anion Gap 11 BUN 19 Creatinine 0.83 Estim Creat Clear Calc 89.46 Est GFR (MDRD) Non-Af 95 BUN/Creatinine Ratio 22.9 H Glucose 103 H Calcium 9.0 Total Bilirubin 0.34 AST 18 ALT 9 Alkaline Phosphatase 73 Total Protein 6.5 Albumin 3.8 Globulin 2.7 Albumin/Globulin Ratio 1.4 Lipase 27 Urine Color Yellow Urine Clarity Clear Urine pH 7.0 Ur Specific [place] 1.010 Urine Protein Negative Urine Glucose (UA) Normal Urine Ketones Negative Urine Occult Blood 10 H Urine Nitrite Negative Urine Bilirubin Negative Urine Urobilinogen Normal Ur Leukocyte Esterase Negative Urine RBC 0-5 SEEN Urine WBC 0 SEEN Ur Squamous Epith Cells 0 SEEN Urine Bacteria 0 SEEN Urine Mucus 0 SEEN Blood Type O POSITIVE Antibody Screen NEGATIVE Radiography Diagnostic Testing: Clinical Impression(s) from Imaging Studies Ankle X-Ray 08/26/25 12:14 IMPRESSION: Calcaneal spurs. No fracture or dislocation. Reading Location: [facility] Brain CT 08/26/25 12:14 IMPRESSION: 1. No evidence of acute intracranial abnormality at this time. 2. Mild volume loss 3. Prior craniotomy left posteriorly is uncomplicated. 4. 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 Reading Location: [facility] Cervical Spine CT 08/26/25 12:14 IMPRESSION: Multilevel degenerative changes with the bilateral neural foraminal stenosis as described. No acute abnormality is seen. Reading Location: [facility] Chest X-Ray 08/26/25 12:14 IMPRESSION: No acute cardiopulmonary process. [facility] Chest/Abdomen/Pelvis CT 08/26/25 12:14 IMPRESSION: Stable examination. No acute abnormality is seen. Reading Location: [id number] Foot X-Ray 08/26/25 12:14 IMPRESSION: Degenerative changes at the distal tarsometatarsal joints. No fracture is seen. Reading Location: [id number] Hip/Pelvis X-Ray 08/26/25 12:14 IMPRESSION: Degenerative changes of both hip joints. No fracture is seen. Reading Location: [id number] Shoulder X-Ray 08/26/25 12:14 IMPRESSION: 1. Degenerative changes as above. 2. Healed fracture deformity of the mid humerus. Reading Location: [facility] Discharge Plan Triage Chief Complaint: Trauma ED Provider: Dwaine Mena Dx/Rx/DC Orders Clinical Impression: Separation of left acromioclavicular joint, type 1, Acute cervical myofascial strain, CHI (closed head injury), Contusion of abdominal wall, initial encounter, Contusion of ankle, left, Contusion of foot, left, Contusion of left hip, Contusion of rib on left side, Fall from ladder Instructions: Treatment for Shoulder Separation, ED Bruise, Rib Prescriptions: Continued oxycodone-acetaminophen 5-325 mg tablet 1 tab PO Q6H PRN PRN (Reason: Pain) 3 Days Qty: 12 0RF No Action ferrous sulfate 325 mg (65 mg iron) tablet 325 mg PO QDAY pantoprazole 40 mg tablet,delayed release (DR/EC) 40 mg PO QDAY sennosides [senna] 8.6 mg tablet 17.2 mg PO PRN (Reason: constipation) acetaminophen 500 mg tablet 500 mg PO Q8 diltiazem HCl 120 mg tablet PO oxycodone-acetaminophen 10-325 mg tablet 1 tab PO Q6 hydrocortisone 1 % cream topical BID fluticasone propionate 220 mcg/actuation HFA aerosol inhaler 2 puff inhalation BID oxycodone-acetaminophen 7.5-325 mg tablet 1 tab PO Q6 albuterol sulfate 90 mcg/actuation HFA aerosol inhaler 2 puff inhalation Q4 finasteride 5 mg tablet 5 mg PO DAILY Daily Fiber (psyllium-aspart) 3.4 gram powder in packet 3.4 g PO TID PRN denosumab 60 mg/mL syringe 60 mg subcut [id number] Stiolto Respimat 2.5-2.5 mcg/actuation mist 2 puff inhalation DAILY Diltiazem TNF med cream topical Rx Instructions: 1 application. Four times a day as needed for anal fissure. 2% strength cream gabapentin 300 mg capsule 400 mg PO 4X/DAY hydrocortisone acetate [Anusol-HC] 25 mg suppository 25 mg NM QHS Qty: 12 0RF atorvastatin [Lipitor] 40 mg Tablet 40 mg PO QHS polyethylene glycol 3350 [ClearLax] 17 gram/dose powder 17 g PO DAILY Qty: 119 0RF clopidogrel 75 mg tablet 75 mg PO QDAY Patient Comments: TAKE 1 TABLET BY MOUTH EVERY DAY duloxetine 30 mg capsule,delayed release(DR/EC) See Rx Instructions PO QDAY Patient Comments: TAKE 2 CAPSULE BY MOUTH in AM and 1 cap at night Rx Instructions: orally daily; ondansetron 4 mg tablet,disintegrating 4 mg PO Q8H PRN PRN (Reason: Nausea) Qty: 10 0RF cyclobenzaprine 5 mg tablet 5 mg PO TID PRN (Reason: muscle spasm) 4 Days Qty: 12 0RF cyclobenzaprine 10 mg tablet 10 mg PO QHS PRN PRN (Reason: Muscle Spasm) Qty: 10 0RF Primary Care Provider: Jefferson Gregorio Referrals: Jose Modi DO [Med Staff - Active Staff, Orthopedics] - 1 Week Referral Note: for shoulder reeval Jefferson Gregorio DO [Primary Care Provider, Family Practice] - 1 Week if not improving Activity Restrictions/Additional Instructions: - Take the prescribed pain medication as directed to manage your discomfort; your prescription has been sent to the pharmacy. - Wear the sling on your left arm as instructed to help reduce pain and support the shoulder. - Use the incentive spirometer regularly (several times per hour while awake) to help prevent lung complications. - Arrange a follow-up appointment with orthopedics for evaluation of your left shoulder. Print Language: Wolof Disposition Disposition: Home, Self Care
[2025-08-26] MEDS: 0.9% Normal Saline (1000mL) 1,000 ML 999 ML IV (12:31)
[2025-08-26 12:38] LABS: Hematocrit 33.6 % (40-54); Hemoglobin 11.0 g/dL (13.0-16.5); Immature Granulocytes Count 0.030 X10^3/uL (0.0-0.0); Mean Corp Hgb Conc 32.7 g/dL (32-36); Mean Corpuscular Volume 94.6 fL (80-94); Mean Platelet Vol. 8.8 fl (6.2-12.0); NRBC Flagged by Analyzer 0 % (0-5); Platelet Count 382 K/mm3 (150-450); RBC Distribution Width CV 12.9 % (11.6-14.6); RBC Distribution Width SD 45.0 fl (35.1-43.9); Red Blood Count 3.55 M/mm3 (4.6-6.2); White Blood Count 7.1 K/mm3 (4.4-11.0)
[2025-08-26 12:52] LABS: Prothrombin Time (Protime)PT. 13.5 SECONDS (11.7-14.9)
[2025-08-26 12:53] LABS: Partial Thromboplast Time 28.3 Seconds (24.1-36.2)
[2025-08-26 13:13] LABS: AST(SGOT) 18 U/L (<=37); Alanine Aminotransfer ALT/SGPT 9 U/L (<=46); Albumin, Serum 3.8 g/dL (3.4-4.8); Alkaline Phosphatase 73 U/L (40-129); Anion Gap 11 (5-15); BUN 19 mg/dL (4-19); BUN/Creat Ratio 22.9 RATIO (10-20); Calcium,Total 9.0 mg/dL (7.6-11.0); Carbon Dioxide 23.0 mmol/L (21.0-32.0); Chloride 104 mmol/L (98-108); Estimated Creatinine Clearance 89.46 ml/min (50-250); Globulin 2.7 g/dL (2.2-4.2); Glucose 103 mg/dL (70-99); Lipase 27 U/L (13-75); Potassium 4.3 mmol/L (3.3-5.1)
[2025-08-26 13:39] LABS: Mucous, Urine 0 SEEN /hpf (<or=2+); Squamous Epithelial Cells - UA 0 SEEN /hpf (0-5)
[2025-08-26] MEDS: fentaNYL 100 MCG/2 ML Ampul 25 MCG IV (13:42)
[2025-08-26 13:47] LABS: Color, Urine Yellow (Yellow); Glucose, Dipstick Normal (Normal); Ketone-Dipstick Negative (Negative); Leukocyte Esterase-Dipstick Negative /ul (Negative); Nitrite-Dipstick Negative (Negative); Occult Blood-Urine 10 /ul (Negative); Protein-Dipstick Negative (Negative); Specific Gravity, Urine 1.010 (1.002-1.030); Urine Bilirubin Dipstick Negative (Negative)
[2025-08-26 14:04] LABS: Red Blood Cells-Urine 0-5 SEEN /hpf (0-5)
== END 2025-08-26 15:33 | disposition home or self-care (01) ==
PROVIDERS: Emergency Provider Emergency Medicine; PCP Student in an Organized Health Care Education/Training Program; Visit Provider Emergency Medicine
DX: S43.102A Unspecified dislocation of left acromioclavicular joint, initial encounter (principal); J44.9 Chronic obstructive pulmonary disease, unspecified; S09.90XA Unspecified injury of head, initial encounter; E78.00 Pure hypercholesterolemia, unspecified; S70.02XA Contusion of left hip, initial encounter; Z87.891 Personal history of nicotine dependence; S90.02XA Contusion of left ankle, initial encounter; S16.1XXA Strain of muscle, fascia and tendon at neck level, initial encounter; W11.XXXA Fall on and from ladder, initial encounter; S90.32XA Contusion of left foot, initial encounter; S20.212A Contusion of left front wall of thorax, initial encounter; I25.10 Atherosclerotic heart disease of native coronary artery without angina pectoris; S30.11XA Contusion of abdominal wall, initial encounter; Z79.02 Long term (current) use of antithrombotics/antiplatelets; Y93.89 Activity, other specified; Z79.899 Other long term (current) drug therapy; K21.9 Gastro-esophageal reflux disease without esophagitis; Z79.51 Long term (current) use of inhaled steroids
CPT/HCPCS: 70450; 71045; 71260; 72125; 73030; 73502; 73610; 73630; 74177; 80053; 81001; 83690; 85025; 85610; 85730; 86850; 86900; 86901; 96361; 96374; 96375; 99283; Q9967; A4216; J2405

== ENCOUNTER 2025-09-17 12:40 | Emergency (ER) | payer MEDICAID, SELFPAY ==
[2025-09-17 12:40] VITALS: BP 148/92; PULSE 76; RESP 14; TEMP 36.2; O2SAT 98; BMI 22.1
--- NOTE | 2025-09-17 12:51 | EX.ED.GENINJ ---
HPI History of Present Illness Chief Complaint: Fall Detail of Chief Complaint: Facial trauma and bilateral knee pain status post fall Informant: patient Onset/Context/Timing Onset: Hours Mechanism/Context: Fall and Trip Location of pain/injuries: Right Knee and Left knee Quality of Pain: Dull and Aching Location: Nose, right and left knee Current Severity: Mild Maximum Severity: Moderate Worsened by: Movement of his lower extremities and palpation of his nose Relieved by: Nothing Associated Symptoms Associated Symptoms: Positive for Loss of consciousness (Up to a minute); Negative for Parasthesias, Weakness, Loss of function, Inability to ambulate or Amnesia Narrative Narrative: Patient is a 70-year-old male. He attempted to go over a child fence. He did not successfully clear the fence and fell onto his face and knees. He reports loss of conscious. He does complain of headache and facial pain. He is on antithrombotic, Plavix he denies nausea or vomiting. He denies epistaxis. He states he is having trouble breathing out of his nose bilaterally. He denies neck pain. He denies paresthesia or anesthesia upper or lower extremity. He denies weakness of his upper or lower extremities. He does report bilateral knee pain. He denies history of PAD. He denies chest pain, shortness of breath or difficulty breathing. He denies abdominal pain. He denies nausea or vomiting. He has not urinated since this occurred. Prior similar symptoms: No Recent Illness/Hospitalization: No [facility] Medical History Wears glasses Wears dentures Unsteady gait Spermatocele Scrotal swelling Screen for colon cancer Right nephrolithiasis Renal lesion Prostatosis syndrome Peyronie disease PVD (peripheral vascular disease) Need for hepatitis C screening test Meniscus degeneration Major depression in remission Lung nodules Lumbar radiculopathy Lumbar foraminal stenosis Left wrist pain Left leg weakness Iron deficiency Immunity status testing High risk medication use Former smoker Foot pain Family history of Vern's disease Chronic, continuous use of opioids Chronic pain Calcified granuloma of lung CAD (coronary artery disease) Brain aneurysm BPH (benign prostatic hyperplasia) Aortic atherosclerosis Anal fissure Abnormal EKG Former cigarette smoker Osteopenia COPD with emphysema Left rotator cuff tear Anemia GERD (gastroesophageal reflux disease) Left shoulder pain Hemorrhoid Epilepsy Sciatica High cholesterol Home Medications Medication Instructions Recorded Last Taken Type gabapentin 300 mg capsule 400 mg PO 4X/DAY 04/02/22 Unknown History hydrocortisone acetate 25 mg 25 mg NM QHS #12 ea 04/27/22 Unknown Rx rectal suppository (Anusol-HC) atorvastatin 40 mg tablet (Lipitor) 40 mg PO QHS 01/13/23 Unknown History polyethylene glycol 3350 17 17 g PO DAILY #119 grams 05/31/23 Unknown Rx gram/dose oral powder (ClearLax) cyclobenzaprine 5 mg tablet 5 mg PO TID PRN muscle spasm 4 11/05/24 Unknown Rx days #12 tabs clopidogrel 75 mg tablet 75 mg PO QDAY 11/13/24 Unknown History duloxetine 30 mg capsule,delayed See Rx Instructions PO QDAY 11/13/24 Unknown History release ferrous sulfate 325 mg (65 mg 325 mg PO QDAY 11/13/24 Unknown History iron) tablet pantoprazole 40 mg tablet,delayed 40 mg PO QDAY 11/13/24 Unknown History release ondansetron 4 mg disintegrating 4 mg PO Q8H PRN PRN Nausea #10 tabs 11/25/24 Unknown Rx tablet cyclobenzaprine 10 mg tablet 10 mg PO QHS PRN PRN Muscle Spasm 06/11/25 Unknown Rx #10 TABLETS Diltiazem TNF med topical 07/31/25 Unknown History acetaminophen 500 mg tablet 500 mg PO Q8 07/31/25 Unknown History albuterol sulfate 90 mcg/actuation 2 puff inhalation Q4 07/31/25 Unknown History aerosol inhaler denosumab 60 mg/mL subcutaneous 60 mg subcut [id number] 07/31/25 Unknown History syringe diltiazem HCl 120 mg tablet mg PO 07/31/25 Unknown History finasteride 5 mg tablet 5 mg PO DAILY 07/31/25 Unknown History fluticasone propionate 220 2 puff inhalation BID 07/31/25 Unknown History mcg/actuation HFA aerosol inhaler hydrocortisone 1 % topical cream applic topical BID 07/31/25 Unknown History oxycodone-acetaminophen 10 mg-325 1 tab PO Q6 07/31/25 Unknown History mg tablet oxycodone-acetaminophen 7.5 mg-325 1 tab PO Q6 07/31/25 Unknown History mg tablet psyllium husk 3.4 gram oral powder 3.4 g PO TID PRN 07/31/25 Unknown History packet (Daily Fiber (psyllium-aspartame)) sennosides 8.6 mg tablet (senna) 17.2 mg PO PRN constipation 07/31/25 Unknown History tiotropium 2.5 mcg-olodaterol 2.5 2 puff inhalation DAILY 07/31/25 Unknown History mcg/actuation mist for inhalation (Stiolto Respimat) ondansetron 4 mg disintegrating 4 mg PO Q6H PRN nausea and 08/28/25 Unknown Rx tablet vomiting #20 tabs oxycodone-acetaminophen 5 mg-325 1 tab PO Q6H PRN pain 3 days #12 08/28/25 Unknown Rx mg tablet (Endocet) tabs Allergy/AdvReac Type Severity Reaction Status Date / Time lidocaine (From Lidoderm) Allergy Mild Rash Verified 09/17/25 12:42 cyclobenzaprine (From Allergy Unknown Itching, Verified 09/17/25 12:42 Flexeril) rash tamsulosin (From Flomax) Allergy Unknown Itching Verified 09/17/25 12:42 buprenorphine AdvReac Intermediate Nausea Verified 09/17/25 12:42 acetaminophen (From Vicodin) AdvReac Unknown unknown Verified 09/17/25 12:42 codeine AdvReac Unknown Nausea Verified 09/17/25 12:42 docusate AdvReac Unknown Itching Verified 09/17/25 12:42 nabumetone AdvReac Unknown Shortness Verified 09/17/25 12:42 of breath adhesive tape (tape) AdvReac Rash Verified 09/17/25 12:42 hydrocodone (From [place]) AdvReac Upset Verified 09/17/25 12:42 Stomach ibuprofen AdvReac Upset Verified 09/17/25 12:42 Stomach ketorolac (From Toradol) AdvReac Rash Verified 09/17/25 12:42 meloxicam (From Mobic) AdvReac Muscle Verified 09/17/25 12:42 weakness naproxen AdvReac Rash Verified 09/17/25 12:42 tramadol AdvReac Upset Verified 09/17/25 12:42 Stomach Family History Mother Cancer Heart disease Father Diabetes Heart disease Surgical History H/O craniotomy S/P cerebral aneurysm repair Leg fracture, left S/P clamping of cerebral aneurysm Social History household members: significant other current occupational status: retired Smoking Status: Former smoker alcohol intake: former substance use type: does not use ROS ROS ED Constitutional Constitutional ED: Denies chills, fever(s) or subjective Eyes Eyes: Denies blurry vision or change in vision ENT ENT ED: Reports other Details: Complains of nose pain. Denies epistaxis. ; Denies ear pain, rhinorrhea or sore throat Cardiovascular Cardiovascular: Denies chest pain or palpitations Respiratory/Chest Respiratory/Chest: Denies cough, dyspnea or dyspnea on exertion Gastrointestinal Gastrointestinal: Denies abdominal pain, nausea or vomiting Musculoskeletal Musculoskeletal: Reports other Details: Does complain of bilateral knee pain. ; Denies arthralgias, back pain, myalgias or neck pain Integumentary Denies Abrasions or rash Neurologic Neurologic: Denies headache(s), paresthesias or weakness Endocrine Endocrinology: Denies cold intolerance or heat intolerance Hematologic/Lymphatic Hematologic/Lymphatic: Denies easy bleeding or easy bruising EXAM Physical Exam Const Vital Signs: 09/17/25 12:40 Temperature 97.1 F L Temperature Source Temporal Pulse Rate 76 Respiratory Rate 14 Blood Pressure 148/92 H Blood Pressure Mean 110 Pulse Ox 98 Oxygen Delivery Method Room Air Positive well nourished and well developed Constitutional Narrative: Patient appears in no obvious distress. General Appearance ED: well developed HEENT Reports TM's clear HEENT Narrative: Small abrasion bridge of the nose. Otherwise there is no evidence of facial or head trauma. There is no clinical signs of basilar skull fracture. There is no septal deviation hematoma. There is no epistaxis. Posterior pharynx is unremarkable. Midline uvula. There is no dysphonia. There is pain palpation with palpation of the nose. trauma and tenderness; Negative for atraumatic Nose: Negative for septum abnormal Tympanic Membrane ED: Yes TM's clear Eyes PERRL and EOMs intact bilaterally General Eye ED: Yes other Other Details: There is no nystagmus. There is no step-off palpation of orbital nerve. There is no hyperesthesia of the infraorbital nerves. There is no complaint of diplopia with centrically's or upward gaze and there is no evidence of entrapment. Neck full ROM General: Negative for tenderness Resp normal respiratory effort and clear to auscultation bilaterally Cardio regular rhythm, S1 normal heart sound, S2 normal heart sound and no murmurs Rate: regular rate GI normal to inspection, nondistended, normoactive bowel sounds, non-tender, non-distended and no masses Back/Spine no thoracic nor lumbar tenderness Extremity full ROM; Negative for normal to inspection Extremity Narrative: Patient has a bruise inferior to the left patella. The right and left patella are not painful to palpation. He is able to extend 30 degrees and flex to 90 degrees. He complains of discomfort with varus and valgus stress testing bilaterally. More importantly there is no laxity. There is a negative Tim's test right and left as well as negative modified France's test. The patella is not ballotable. There is no effusion. General Extremety ED: Yes tenderness; Negative for deformity or edema General Extremity: Negative for deformity or edema Neuro oriented x3, CN's II-XII intact bilaterally, moves all extremities and no sensory deficits noted [place] Coma Scale: document GCS findings Spontaneous Obeys Commands Oriented 15 Sensorium / Orientation: alert Plantar Reflex: Downgoing: bilateral (There is no clonus at the ankles.) Psych mental status grossly normal and thought process normal Skin no rashes or lesions noted, skin turgor normal and no jaundice Skin Narrative: Abrasion as previously described MDM MDM MDM Narrative Medical decision making narrative: Based on the [place] CT head rule and Cable rule since patient is on antithrombotic, age greater than 65 and has loss of conscious imaging of the head is indicated. In my opinion imaging of the right and left knee is not indicated. Patient was informed of this. He does not disagree. Since patient is n.p.o. he was given parenteral morphine for his pain. History & Record Review Additional record(s) reviewed:: Prior ED visit (Seen July 2025 and diagnosed with acute cervical myofascial strain. Was seen May 2025 for back pain and was diagnosed with sciatica.) and Prior labs (History of mild anemia. Renal function is normal.) Radiography Diagnostic Testing: Clinical Impression(s) from Imaging Studies Brain CT 09/17/25 13:30 IMPRESSION: 1. No evidence of acute intracranial abnormality at this time. No change. 2. Mild volume loss 3. Prior craniotomy left posteriorly is uncomplicated. 4. 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 Likely unchanged. Reading Location: [id number] of the head without contrast was reviewed by me at 1344. There is no evidence of subdural hematoma, epidural hematoma, traumatic subarachnoid hemorrhage or intraparenchymal contusion. There is evidence of a prior craniotomy posteriorly. Awaiting formal read by radiologist The report was read. There is concern for a parotid mass which may represent a pleomorphic adenoma or a Warthin's tumor. Patient is aware of this mass. He is scheduled to see a specialist to determine if this is cancerous or not. Discharge Plan Triage Chief Complaint: Fall ED Provider: Chapo Silva Dx/Rx/DC Orders Clinical Impression: Concussion with loss of consciousness <= 30 min, Mass of right parotid gland, Contusion of nose, initial encounter, Contusion of right knee, initial encounter, Contusion of left knee, initial encounter Instructions: ED Concussion, ED Contusion, Lower Extremity, ED Salivary Gland Swelling Cause Prescriptions: No Action ferrous sulfate 325 mg (65 mg iron) tablet 325 mg PO QDAY pantoprazole 40 mg tablet,delayed release (DR/EC) 40 mg PO QDAY sennosides [senna] 8.6 mg tablet 17.2 mg PO PRN (Reason: constipation) acetaminophen 500 mg tablet 500 mg PO Q8 diltiazem HCl 120 mg tablet PO oxycodone-acetaminophen 10-325 mg tablet 1 tab PO Q6 hydrocortisone 1 % cream topical BID fluticasone propionate 220 mcg/actuation HFA aerosol inhaler 2 puff inhalation BID oxycodone-acetaminophen 7.5-325 mg tablet 1 tab PO Q6 albuterol sulfate 90 mcg/actuation HFA aerosol inhaler 2 puff inhalation Q4 finasteride 5 mg tablet 5 mg PO DAILY Daily Fiber (psyllium-aspart) 3.4 gram powder in packet 3.4 g PO TID PRN denosumab 60 mg/mL syringe 60 mg subcut [id number] Stiolto Respimat 2.5-2.5 mcg/actuation mist 2 puff inhalation DAILY Diltiazem TNF med cream topical Rx Instructions: 1 application. Four times a day as needed for anal fissure. 2% strength cream gabapentin 300 mg capsule 400 mg PO 4X/DAY hydrocortisone acetate [Anusol-HC] 25 mg suppository 25 mg NM QHS Qty: 12 0RF atorvastatin [Lipitor] 40 mg Tablet 40 mg PO QHS polyethylene glycol 3350 [ClearLax] 17 gram/dose powder 17 g PO DAILY Qty: 119 0RF clopidogrel 75 mg tablet 75 mg PO QDAY Patient Comments: TAKE 1 TABLET BY MOUTH EVERY DAY duloxetine 30 mg capsule,delayed release(DR/EC) See Rx Instructions PO QDAY Patient Comments: TAKE 2 CAPSULE BY MOUTH in AM and 1 cap at night Rx Instructions: orally daily; ondansetron 4 mg tablet,disintegrating 4 mg PO Q8H PRN PRN (Reason: Nausea) Qty: 10 0RF cyclobenzaprine 5 mg tablet 5 mg PO TID PRN (Reason: muscle spasm) 4 Days Qty: 12 0RF cyclobenzaprine 10 mg tablet 10 mg PO QHS PRN PRN (Reason: Muscle Spasm) Qty: 10 0RF oxycodone-acetaminophen [Endocet] 5-325 mg tablet 1 tab PO Q6H PRN (Reason: pain) 3 Days Qty: 12 0RF ondansetron 4 mg tablet,disintegrating 4 mg PO Q6H PRN (Reason: nausea and vomiting) Qty: 20 0RF Primary Care Provider: Jefferson Gregorio Referrals: Jefferson Gregorio DO [Primary Care Provider, Family Practice] Activity Restrictions/Additional Instructions: Mass noted right parotid. You need to follow-up with the specialist. Apply ice to your right and left knee 6-8 times a day. Print Language: Jamaican Disposition Disposition: Home, Self Care
--- OUTSIDE RECORDS SUMMARY | 2025-09-17 13:01 | XMS RPT_ITS | CCD ---
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 Name Role Phone LENA LEVI Unavailable Unavailable Gayle Ray Unavailable Unavailable PROVIDER, UNKNOWN Unavailable Unavailable No, PCP Unavailable Unavailable Gayle Ray Unavailable Unavailable PROVIDER, UNKNOWN Unavailable Unavailable No, PCP Unavailable Unavailable Unavailable Primary Care Provider Unavailorion e Eugenio Mayen Unavailable Unavailable Unavailable EUGENIO MAYEN DO Primary Care Physician [phone] Unavailable Primary Care Provider Verónica TOUSSAINT, DR BASIM Funes Admitting Unavaila ble AUGUSTA, DR BASIM Funes Attending Unavaila ble AUGSUTA, DR BASIM Funes Primary Care Unavaila ble AUGUSTA, DR BASIM Funes Admitting Unavaila ble AUGUSTA, DR BASIM Funes Attending Unavaila EUGENIO Irene IV Referring Unavailable AUGUSTA, DR BASIM Funes Primary Care Unavaila EUGENIO Irene IV Consulting Unavailable PROVIDER, UNKNOWN Consulting Unavailable Jg NOLAND MD, Michael Primary Care Provider [phone] Jg NOLAND DO, Michael Primary Care Provider [phone] Ant Ramsey Unavailable Jg NOLAND DO, Michael A Primary Care Provider EUGENIO MAYEN IV Referring Unavailable EUGENIO MAYEN IV Primary Care Unavailable HUBERT JETT Attending Unavailable EUGENIO MAYEN IV Primary Care Unavailable LEE ALMONTE Referring Unavailable EUGENIO MAYEN IV Primary Care Unavailable PRETTY CARDENAS Consulting Unavailable YESSICA GOTTLIEB Attending Unavailable MARY JO HERNANDEZ Admitting Unavailable HALKO IV, SARAI Primary Care Unavailable HALKO IV, SARAI Primary Care Unavailable NWACHUKU, ENYIMONIQUEA L Attending Unavailable HALKO IV, SARAI Primary Care Unavailable [place]U, ENYIMONIQUEA L Attending Unavailable GUTLOVE, HAMILTON PAREDES Attending Unavailable HALKO IV, SARAI Primary Care Unavailable GUTLOVEHAMILTON Attending Unavailable HALKO IV, SARAI Primary Care [...] Care Unavailable HALKO DO, EUGENIO Attending Unavailable Halko DO, Dr. Paulino Primary Care Provider [phone] Dr. Dennis Strickland DO Attending Provider Dr. Dennis Strickland DO Referring Provider Marco A FLEMING, Dr. Collins Emergency Provider Jg FLEMING, Dr. Paulino Referring Provider [phone] Jacob Dominguez MD Attending Provider [phone] Aiyana Bolanos Attending Provider Dr. Tyrone Fagan MD Attending Provider [phone] Abril Velarde DO Attending Provider [phone] Abril Velarde DO Emergency Provider Jacob Dominguez MD Referring Provider [phone] [...] Provider Jg FLEMING, Dr. Paulino Referring Provider Aiyana Bolanos Attending Provider Colten FLEMING, Dr. Moran Attending Provider [phone] Kamaljit LUCAS, Dr. Rogers Attending Provider Gracia LUCAS, Dr. Hansen Attending Provider Jg FLEMING, Dr. Paulino Primary Care Provider Jg FLEMING, Dr. Paulino Primary Care Provider Jg FLEMING, Dr. Paulino Referring Provider Aiyana Bolanos Attending Provider Ivy FLEMING, Dr. Weiner Emergency Provider Jg FLEMING, Dr. Paulino Primary Care Provider [phone] Kamaljit LUCAS, Dr. Rogers Attending Provider Dr. Ken Mari MD Emergency Provider Ivy FLEMING, Dr. Weiner Attending Provider Prachi FLEMING, Dr. Samuels Emergency Provider Prachi FLEMING, Dr. Samuels Attending Provider Crystal DO, Dr. Monzon Emergency Provider Janet LUCAS, Dr. Mast Emergency Provider Unavailab le HALKO DO, EUGENIO Primary Care Unavailable HALKO [...] Unavailable HALKO DO, EUGENIO Primary Care Unavailable Halko, Eugenio Referring Unavailable Paulo Campbellyn Attending Unavailable Halko, Eugenio Primary Care Unavailable Halko, Eugenio Referring Unavailable Jcaob Dominguez Attending Unavailable Halko, Eugenio Primary Care Unavailable Halko, Eugenio Primary Care Unavailable Dwaine Mena Attending Unavailable Halko, Eugenio Primary Care Unavailable Gracia, Elrod Attending Unavailable Halko, Eugenio Primary Care Unavailable Halko, Eugenio Referring Unavailable Jacob Dominguez Attending Unavailable Halko, Eugenio Primary Care Unavailable Halko, Eugenio Referring Unavailable Memo Campbelltlyn Attending Unavailable Dennis Strickland Referring Unavailable Dennis Strickland Attending Unavailable Halko, Eugenio Primary Care Unavailable Halko, Eugenio Primary Care Unavailable Kezia Gonzales Attending Unavailable Halko, Eugenio Primary Care Unavailable Ken Mari Attending Unavailable Halko, Eugenio Primary Care Unavailable Husam Haynes Attending Unavailabl e Halko, Eugenio Primary Care Unavailable Ungur, Remus Attending Unavailable Halko, Eugenio Primary Care Unavailable Nicolás Rojas Attending Unavailable Halko, Eugenio Primary Care Unavailable Prachi, Remus Attending Unavailable Halko, Eugenio Primary Care Unavailable Jacob Dominguez Referring Unavailable Jacob Dominguez Attending Unavailable Halko, Eugenio Primary Care Unavailable Adrian, Aiyana Referring Unavailable Adrian Aiyana Attending Unavailable Halko, Eugenio Primary Care Unavailable Suresh Del Cidy Referring Unavailable Dean Del Cid Attending Unavailable Halko, Eugenio Primary Care Unavailable Ken Mari Attending Unavailable Halko, Eugenio Primary Care Unavailable Gracia, Tyrone Attending Unavailable Allergies Allergy Classification Reported Allergen(s) Allergy Type Date of Onset Reaction(s) Facility Acetaminophen / HYDROcodone (1 source) Acetaminophen / HYDROcodone; Translations: [Vicodin TABS] Drug Allergy [facility] Work Phone: Adhesive Tape (1 source) Adhesive Tape Substance Allergy [facility]: NSAIDs (1 source) Naproxen; Translations: [Naprosyn] Drug Allergy [facility] Work Phone: Opioid Agonists (2 sources) traMADol; Translations: [Ultram] Drug Allergy [facility] Work Phone: (17 sources) acetaminophen / HYDROcodone; Translations: [HYDROCODONE-ACETAM INOPHEN] Drug Allergy 05-28-20 17 [facility] Repository (20 sources) naproxen; Translations: [NAPROXEN] Drug Allergy 05-28-20 17 Rash [facility] Repository (15 sources) traMADol; Translations: [TRAMADOL HCL] Drug Allergy 07-23-20 15 GI Upset [facility] Repository (20 sources) Acetaminophen / HYDROcodone; Translations: [acetaminophen-hydr ocodone] Drug Allergy [facility] (20 sources) Codeine; Translations: [codeine] Drug Allergy 03-08-20 22 Nausea [facility] (20 sources) traMADol; Translations: [tramadol] Drug Allergy 08-12-20 21 Upset Stomach [facility] (20 sources) Tape, plastic Allergy to substance Eruption (morphologic abnormality) [facility] (14 sources) predniSONE; Translations: [prednisone] Drug Allergy 03-08-20 22 Weal (disorder) [facility] (8 sources) Acetaminophen Drug Allergy 11-04-19 18 Itching [facility] (20 sources) HYDROcodone Drug Allergy 08-12-20 21 Upset Stomach [facility] (20 sources) Ibuprofen; Translations: [ibuprofen] Drug Allergy 12-04-19 22 Stomach ache (finding) [facility] Work Phone: (4 sources) gabapentin; Translations: [gabapentin] Drug Allergy 03-08-20 22 Drowsy (finding), Other (See Comments) [facility] (18 sources) Lidocaine; Translations: [lidocaine topical] Drug Allergy 03-08-20 22 Eruption of skin (disorder), Rash [facility] (11 sources) methylPREDNISolone; Translations: [methylprednisolone ] Drug Allergy rash, upset stomach [facility] (20 sources) nabumetone; Translations: [nabumetone] Drug Allergy Dyspnea (finding) [facility] (2 sources) Acetaminophen / HYDROcodone Drug Allergy [facility] Repository (2 sources) HYDROcodone Drug Allergy [facility] Repository (2 sources) Ibuprofen Drug Allergy [facility] Repository (4 sources) traMADol Drug Allergy [facility] Repository (20 sources) Ketorolac Drug Allergy 04-02-20 [facility] (13 sources) cyclobenzaprine; Translations: [cyclobenzaprine] Drug Allergy itching, rash [facility] (18 sources) Adhesive Tape; Translations: [adhesive tape] Propensity to adverse reactions 09-16-20 [facility] (9 sources) Buprenorphine; Translations: [buprenorphine] Drug Allergy Nausea (finding) [facility] (1 source) oxyCODONE; Translations: [oxycodone] Drug Allergy Itching (finding) [facility] (9 sources) tamsulosin; Translations: [tamsulosin] Drug Allergy Itching (finding) [facility] (8 sources) Docusate; Translations: [docusate] Drug Allergy Itching (finding) [facility] (11 sources) Adhesive Tape-Silicones; Translations: [ADHESIVE TAPE-SILICONES] Drug Allergy 02-13-[address] [facility] (10 sources) meloxicam Drug Allergy 01-02-20 25 Muscle weakness [facility] (2 sources) Adhesive agent; Translations: [ADHESIVE] Propensity to adverse reactions to drug 02-24-20 [facility] (1 source) Acetaminophen Drug Allergy 08-26-20 [facility] Repository (1 source) Buprenorphine Drug Allergy 08-26-20 [facility] Repository (1 source) Codeine Drug Allergy 08-26-20 [facility] Repository (1 source) cyclobenzaprine Drug Allergy 08-26-20 [facility] Repository (1 source) Docusate Drug Allergy 08-26-20 [facility] Repository (1 source) HYDROcodone Drug Allergy 08-26-20 [facility] Repository (1 source) Ibuprofen Drug Allergy 08-26-20 [facility] Repository (1 source) Ketorolac Drug Allergy 08-26-20 [facility] Repository (1 source) Lidocaine Drug Allergy 08-26-20 [facility] Repository (1 source) meloxicam Drug Allergy 08-26-20 [facility] Repository (1 source) nabumetone Drug Allergy 08-26-20 [facility] Repository (1 source) tamsulosin Drug Allergy 08-26-20 [facility] Repository (1 source) traMADol Drug Allergy 08-26-20 [facility] Repository Medications Current Medications Medication Drug Class(es) Dates Sig (Normalized) Sig (Original) acetaminophen 500 mg oral tablet (18 sources) Start: 12-03-2024 End: 06-01-2025 acetaminophen 500 mg oral tablet Dose : 500 mg = 1 tab(s), Oral, q8h, X 90 day(s), # 270 tab(s), 1 Refill(s), 06/01/25 11:17:00 AM EDT, Pharmacy: [facility], 180, cm, 12/03/24 10:42:00 EST, [...] of thorax, initial encounter Start: 05-20-2025 End: 06-19-2025 take 1 tablet by mouth every six hours acetaminophen-oxycodone 325 mg-7.5 mg or al tablet Dose = 1 tab(s), Oral, q6hr, fill on or after 05/20/2025, # 120 tab(s), 0 Refill(s), Pharmacy: [id number], Rotator cuff tear, 176.5, [...] day(s), # 120 tab(s), 0 Refill(s), Pharmacy: [id number], Rotator cuff tear, 177, [...] day(s), # 120 tab(s), 0 Refill(s), Pharmacy: [facility], Low back pain DDD (degenerative [...] day(s), # 28 tab(s), 0 Refill(s), Pharmacy: [facility]/pharmacy #[id number], Back pain Lumbar radiculopathy, 178, cm, 02/20/22 15:58:00 EDT, Height, 71 Start Date: 03/02/22 Stop Date: 03/09/22 Status: Ordered Start: 02-27-2022 take 1 tablet by angel th every six hours as needed Oxycodone-Acetaminophen Active 1 TABLET PO EVERY 6 HOURS NEEDED 12 3 February 27, 2022 7:52pm Start: 01-05-2022 End: 01-10-2022 take 1 tablet by mouth every six hours as needed for pain Percocet 5 mg-325 mg oral tablet Dose = 1 tab(s), Oral, q6h, PRN for pain, # 20 tab(s), 0 Refill(s), Pharmacy: [facility]/pharmacy #[id number], Lumbar radiculopathy DDD (degenerative disc disease), [...] pain, # 20 tab(s), 0 Refill(s), Pharmacy: [facility]/pharmacy #[id number], Right shoulder pain, 185, cm, 12/07/21 [...] inhaler, # 1 EA, 5 Refill(s), Pharmacy: [facility], Chronic obstructive pulmonary disease, [...] inhaler, # 1 EA, 5 Refill(s), Pharmacy: [facility] #[id number], Chronic obstructive pulmonary disease, [...] inhaler, # 1 EA, 5 Refill(s), Pharmacy: [facility], 180, cm, 04/16/24 13:44:00 EDT, Height, kg, 04/16/24 13:42:00 EDT, Dosing Weight Start Date: 06/18/24 Stop Date: 12/15/24 Status: Ordered Start: 11-19-2023 End: 05-17-2024 take 2 puff(s) by inhalation every four hours albuterol MDI (90 mcg/inh) CFC free inhalation aerosol 2 puff(s), Inhalation, q4h, ok to fill generic equivalent rescue inhaler, # 1 EA, 5 Refill(s), Pharmacy: [facility] #[id number], 180, cm, 11/19/23 13:28:00 EST, Height, kg, 11/19/23 13:28:00 EST, Dosing Weight Start Date: 11/19/23 Stop Date: 05/17/24 Status: Ordered Start: 07-03-2023 End: 12-30-2023 take 2 puff(s) by inhalation every four hours albuterol MDI (90 mcg/inh) CFC free inhalation aerosol 2 puff(s), Inhalation, q4h, ok to fill generic equivalent rescue inhaler, # 1 EA, 5 Refill(s), Pharmacy: [facility]/pharmacy #[id number], 178, cm, 06/27/23 10:23:00 EDT, Height, kg, 06/27/23 10:23:00 EDT, Dosing Weight Start Date: 07/03/23 Stop Date: 12/30/23 Status: Ordered Start: 11-23-2022 End: 05-22-2023 take 2 puff(s) by inhalation every four hours albuterol MDI (90 mcg/inh) CFC free inhalation aerosol 2 puff(s), Inhalation, q4h, ok to fill generic equivalent rescue inhaler, # 1 EA, 5 Refill(s), Pharmacy: [facility]/pharmacy #[id number], 178, cm, 11/16/22 15:20:00 EST, Height, kg, 11/23/22 13:45:00 EST, Dosing Weight Start Date: 11/23/22 Stop Date: 05/22/23 Status: Ordered Start: 09-22-2022 End: 03-21-2023 take 2 puff(s) by inhalation every four hours albuterol MDI (90 mcg/inh) CFC free inhalation aerosol 2 puff(s), Inhalation, q4h, ok to fill generic equivalent rescue inhaler, # 1 EA, 5 Refill(s), Pharmacy: [facility]/pharmacy #[id number], 178, cm, 09/22/22 13:53:00 EST, Height, kg, 09/22/22 13:53:00 EST, Dosing Weight Start Date: 09/22/22 Stop Date: 03/21/23 Status: Ordered Start: 07-27-2022 End: 01-23-2023 take 2 puff(s) by inhalation every four hours albuterol MDI (90 mcg/inh) CFC free inhalation aerosol 2 puff(s), Inhalation, q4h, ok to fill generic equivalent rescue inhaler, # 1 EA, 5 Refill(s), Pharmacy: [facility]/pharmacy #[id number], 178, cm, 07/27/22 13:49:00 EDT, Height, kg, 07/27/22 13:49:00 EDT, Dosing Weight Start Date: 07/27/22 Stop Date: 01/23/23 Status: Ordered Start: 06-28-2022 End: 07-28-2022 take 2 puff(s) by inhalation every four hours albuterol MDI (90 mcg/inh) CFC free inhalation aerosol 2 puff(s), Inhalation, q4h, ok to fill generic equivalent rescue inhaler, # 1 EA, 0 Refill(s), Pharmacy: [facility]/pharmacy #[id number], 178, cm, 05/29/22 11:16:00 EDT, Height [...] as needed for Muscle Spasm (or pain). dilTIAZem hydrochloride 120 mg oral tablet (14 sources) Calcium Channel Beba Start: 01-02-2025 dilTIAZem 120 mg oral tablet 0 Refill(s) Start Date: 01/02/25 Status: Ordered Medication Dispense Status: Completed Total Allowed Fills: 1 Fills Dispensed: 0 Start: 12-22-2024 End: 03-22-2025 Diltiazem Diltiazem, 1 appli cation, Topical, 4x/Day, 2% strength base cream, PRN anal fissue, # 45 gram(s), 2 Refill(s), Pharmacy: [facility], 180, cm, 12/22/24 13:50:00 EST, Height, 72.2, kg, 12/22/24 13:50:00 EST, Dosing Weight Start Date: 12/22/24 Stop Date: 03/22/25 Status: Ordered Medication Dispense Status: Completed Quantity: 45.0 Unit: g Total Allowed Fills: 3 Fills Dispensed: 0 Start: 12-22-2024 End: 03-22-2025 Diltiazem Diltiazem, 1 appli cation, Topical, 4x/Day, 2% strength base cream, PRN anal fissue, # 45 gram(s), 2 Refill(s), Pharmacy: [facility], 180, cm, 12/22/24 13:50:00 EST, Height, 72.2, kg, 12/22/24 13:50:00 EST, Dosing Weight Start Date: 12/22/24 Stop Date: 03/22/25 Status: Ordered Quantity: 45.0 Unit: g Repeat number: 3 Start: 04-16-2024 End: 07-15-2024 Diltiazem Diltiazem, 1 appli cation, Topical, 4x/Day, 2% strength, PRN anal fissue, # 45 gram(s), 2 Refill(s), Pharmacy: [facility] #[id number], 180, cm, 04/16/24 13:44:00 EDT, Height, 69.4, kg, 04/16/24 13:42:00 EDT, Dosing Weight Start Date: 04/16/24 Stop Date: 07/15/24 Status: Ordered Start: 04-26-2023 End: 07-25-2023 Diltiazem Diltiazem, 1 appli cation, Topical, 4x/Day, 2% strength, PRN anal fissue, # 45 gram(s), 2 Refill(s), Pharmacy: [facility]/pharmacy #[id number], 178, cm, 04/25/23 13:12:00 EDT, Height, [...] pills, # 1 EA, 0 Refill(s), Pharmacy: [facility], Prescription lost, 180, cm, 11/28/24 [...] pills, # 1 EA, 0 Refill(s), Pharmacy: [facility], Prescription lost, 180, cm, 11/28/24 [...] day(s), # 135 cap(s), 1 Refill(s), Pharmacy: [facility] #[facility], 176.5, cm, 05/20/25 13:56:00 [...] day(s), # 135 cap(s), 1 Refill(s), Pharmacy: [facility] #330, 177, cm, 03/02/25 16:22:00 EDT, [...] 135 cap(s), 1 Refill(s), [facility]: [facility] #[id number], 180, cm, 11/19/23 13:28:00 EST, Height, kg, [...] evening, # 90 cap(s), 1 Refill(s), Pharmacy: [facility]/pharmacy #[id number], 178, cm, 10/26/22 13:53:00 EST, Height, [...] BID, # 180 cap(s), 1 Refill(s), Pharmacy: [facility]/pharmacy #[id number], 178, cm, 02/20/22 15:58:00 EDT, Height, kg, 02/20/22 15:58:00 EDT, Dosing Weight Start Date: 02/20/22 Stop Date: 08/19/22 Status: Ordered Start: 01-05-2022 DULoxetine 20 mg oral delayed release capsule Dose : 20 mg = 1 cap(s), Oral, BID, # 60 cap(s), 1 Refill(s), Pharmacy: [facility]/pharmacy #[id number], 185, cm, 01/05/22 10:16:00 EDT, Height, [...] 4x/day, # 1 EA, 5 Refill(s), Pharmacy: [facility] #[id number], 180, cm, 04/16/24 13:44:00 EDT, Height, 69.4, kg, 04/16/24 13:42:00 EDT, Dosing Weight Start Date: 04/16/24 Status: Ordered Quantity: 1.0 Unit: EA Repeat number: 6 Start: 04-16-2024 Epson salts Ep son salts, See Instructions, 1 EA = one box/contianer of epson salts; soak in sitz bath up to 4x/day, # 1 EA, 5 Refill(s), Pharmacy: [facility] #[id number], 180, cm, 04/16/24 13:44:00 EDT, Height, 69.4, kg, 04/16/24 13:42:00 EDT, Dosing Weight Start Date: 04/16/24 Status: Ordered Start: 04-28-2022 Epson salts Ep son salts, See Instructions, 1 EA = one box/contianer of epson salts; soak in sitz bath up to 4x/day, # 1 EA, 0 Refill(s), Pharmacy: [facility]/pharmacy #[id number], 178, cm, 04/28/22 13:02:00 EDT, Height, 73.4 Start Date: 04/28/22 Status: Ordered escitalopram 10 mg oral tablet (1 source) Serotonin Reuptake Inhibitor Start: 12-07-2021 End: 02-05-2022 escitalopram 10 mg oral tablet Dose : 10 mg = 1 tab(s), Oral, qDay, start 0.5 tablet x7 days, then increase to full tablet, # 30 tab(s), 1 Refill(s), Pharmacy: [facility]/pharmacy #[id number], 185, cm, 12/07/21 9:52:00 EST, Height, kg, 12/07/21 9:52:00 EST, Dosing Weight Start Date: 12/07/21 Stop Date: 02/05/22 Status: Ordered etodolac 300 mg oral capsule (1 source) Nonsteroidal Anti-inflammatory Drug Start: 09-11-2024 End: 12-10-2024 etodolac 300 mg oral capsule Dose : 300 mg = 1 cap(s), Oral, TID, # 90 cap(s), 2 Refill(s), Pharmacy: [facility], 180, cm, 09/11/24 9:44:00 EST, Height, kg, 09/11/24 9:44:00 EST, Dosing Weight Start Date: 09/11/24 Stop Date: 12/10/24 Status: Ordered ferrous sulfate 325 mg oral tablet (20 sources) Start: 11-13-2024 End: 08-29-2025 take 1 tablet by mouth once daily Ferrous Sulfate 325 mg (65 mg iron) tablet Active 325 mg PO daily November 13, 2024 1:00am Start: 11-19-2023 End: 10-13-2024 ferrous sulfate 325 mg (65 m g elemental iron) oral tablet Dose : 325 mg = 1 tab(s), Oral, BID, # 180 tab(s), 1 Refill(s), Pharmacy: [facility] #[id number], 180, cm, 04/16/24 13:44:00 EDT, Height, kg, [...] BID, # 180 tab(s), 1 Refill(s), [id number], 178, cm, 03/28/23 13:16:00 EDT, Height, [...] qDay, # 90 tab(s), 1 Refill(s), Pharmacy: [facility] #330, 176.5, cm, 05/20/25 13:56:00 EDT, Height, kg, 05/20/25 13:56:00 EDT, Dosing Weight Start Date: 05/20/25 Status: Ordered Medication Dispense Status: Completed Quantity: 90.0 Unit: tab(s) Total Allowed Fills: 2 Fills Dispensed: 0 Start: 04-02-2025 finasteride 5 mg oral tablet Dose : 5 mg = 1 tab(s), Oral, qDay, # 90 tab(s), 0 Refill(s), Pharmacy: [facility] #330, 177, cm, 04/02/25 15:00:00 [...] 05/31/2025, # 120 cap(s), 2 Refill(s), Pharmacy: [facility] #330, Sciatica, 176.5, cm, 05/20/25 13:56:00 EDT, Height, 68.1, kg, 05/20/25 13:56:00 EDT, Dosing Weight Start Date: 05/20/25 Stop Date: 08/18/25 Status: Ordered Medication Dispense Status: Completed Quantity: 120.0 Unit: cap(s) Total Allowed Fills: 3 Fills Dispensed: 0 Indications: Sciatica, unspecified side; Start: 04-02-2022 Gabapentin 300 mg capsule Active 400 mg PO 4 TIMES DAILY April 02, 2022 12:00am Start: 07-27-2021 End: 11-13-2024 take 1 capsule by mouth four times daily Gabapentin 300 mg capsule Active 300 mg PO 4 TIMES DAILY April 02, 2022 12:00am Gabapentin 300 M G Oral Capsule Quantity: 0 Refills: 0 Ordered: 12-Jan-2021 DO Active Comment on above: Take 1 capsule by [facility] four times daily for 30 days. ibuprofen [...] qDay, # 3 EA, 1 Refill(s), Pharmacy: [facility] #330, Chronic obstructive pulmonary disease, [...] qDay, # 3 EA, 1 Refill(s), Pharmacy: [facility], 180, cm, 04/16/24 13:44:00 EDT, [...] qDay, # 3 EA, 1 Refill(s), Pharmacy: [facility] #[id number], 180, cm, 11/19/23 13:28:00 EST, Height, kg, 11/19/23 13:28:00 EST, Dosing Weight Start Date: 11/19/23 Stop Date: 05/17/24 Status: Ordered Start: 10-26-2022 End: 04-24-2023 take 1 dose by inhalation once daily Stiolto Respimat 60 ACT 2.5 mcg-2.5 mcg/inh inhalation aerosol Dose = 2 puff(s), Inhalation, qDay, # 3 EA, 1 Refill(s), Pharmacy: [facility]/pharmacy #[id number], 178, cm, 10/26/22 13:53:00 EST, Height, kg, 10/26/22 13:53:00 EST, Dosing Weight Start Date: 10/26/22 Stop Date: 04/24/23 Status: Ordered Start: 09-22-2022 End: 10-22-2022 take 1 dose by inhalation once daily Stiolto Respimat 60 ACT 2.5 mcg-2.5 mcg/inh inhalation aerosol Dose = 2 puff(s), Inhalation, qDay, # 1 EA, 0 Refill(s), Pharmacy: [facility]/pharmacy #[id number], 178, cm, 09/22/22 13:53:00 EST, Height Start Date: 09/22/22 Stop Date: 10/22/22 Status: Ordered Comment on above: INHALE 2 PUFFS DAILY omeprazole 40 mg delayed release oral capsule (20 sources) Proton Pump Inhibitor Start: 11-19-2023 End: 05-17-2024 omeprazole 40 mg oral delayed release capsule Dose : 40 mg = 1 cap(s), Oral, qDay, # 90 cap(s), 1 Refill(s), Pharmacy: [facility] #[id number], 180, cm, 11/19/23 13:28:00 EST, Height, kg, [...] Start: 01-14-2021 take 1 capsule by mo [facility] once daily before breakfast Omeprazole 20 MG Oral Capsule Delayed Release TAKE 1 CAPSULE BY MOUTH EVERY DAY IN THE MORNING BEFORE BREAKFAST Quantity: 90 Refills: 1 Ordered: 15-Apr-2021 Connie East PA-C Start : 14-Jan-2021 Active Comment on above: Take 40 mg by mouth once daily. pantoprazole 40 mg delayed release oral tablet (13 sources) Proton Pump Inhibitor Start: take 1 tablet by mouth once daily Pantoprazole 40 mg tablet,delayed release (DR/EC) Active 40 mg PO daily November 13, 2024 1:00am Start: 08-15-2024 pantoprazole 4 0 mg oral enteric coated tablet Dose : 40 mg = 1 tab(s), Oral, qDay, stop omeprazole, # 90 tab(s), 1 Refill(s), Pharmacy: [facility], 180, cm, 08/15/24 14:58:00 EDT, Height, kg, 08/15/24 14:58:00 EDT, Dosing Weight Start Date: 08/15/24 Status: Ordered PEG-3350 with Electrolytes (Eqv-GoLYTELY) oral powder for reconstitution (4 sources) Start: 04-16-2024 PEG-3350 with Electrolytes (Eqv-GoLYTELY) oral powder for reconstitution See Instructions, Take as directed 1 day before colonoscopy. Follow instructions as provided by your GI provider at [facility]., # 1 EA, 0 Refill(s), Pharmacy: [facility] #[id number], 180, cm, 04/16/24 13:44:00 EDT, Height, kg, 04/16/24 13:42:00 EDT, Dosing Weight Start Date: 04/16/24 Status: Ordered Medication Dispense Status: Completed Quantity: 1.0 Unit: EA Total Allowed Fills: 1 Fills Dispensed: 0 Start: 04-16-2024 PEG-3350 with Electrolytes (Eqv-GoLYTELY) oral powder for reconstitution See Instructions, Take as directed 1 day before colonoscopy. Follow instructions as provided by your GI provider at [facility]., # 1 EA, 0 Refill(s), Pharmacy: [facility] #[id number], 180, cm, 04/16/24 13:44:00 EDT, Height, kg, 04/16/24 13:42:00 EDT, Dosing Weight Start Date: 04/16/24 Status: Ordered Quantity: 1.0 Unit: EA Repeat number: 1 Start: 04-16-2024 PEG-3350 with Electrolytes (Eqv-GoLYTELY) oral powder for reconstitution See Instructions, Take as directed 1 day before colonoscopy. Follow instructions as provided by your GI provider at [facility]., # 1 EA, 0 Refill(s), Pharmacy: [facility] #[id number], 180, cm, 04/16/24 13:44:00 EDT, Height, kg, 04/16/24 13:42:00 EDT, Dosing Weight Start Date: 04/16/24 Status: Ordered Start: 08-15-2023 PEG-3350 with Electrolytes (Eqv-GoLYTELY) oral powder for reconstitution See Instructions, Take as directed 1 day before colonoscopy. Follow instructions as provided by your GI provider at [facility]., # 1 EA, 0 Refill(s), Pharmacy: [facility]/pharmacy #[id number], 178, cm, 08/15/23 11:10:00 EDT, Height, kg, 08/15/23 11:10:00 EDT, Dosing Weight Start Date: 08/15/23 Status: Ordered polyethylene glycol 3350 30803 mg powder for oral solution (20 sources) [...] 11-29-2022 End: 12-18-2022 prednisone 10mg tab (TAPER) 37-65-50-20-10-5mg, Oral, qDay, 7R5vqyj,8W4gkai,4G7ihof, 3D6aztn,6J2jayy,0.5X4 days., # 47 tab(s), 0 Refill(s), Pharmacy: [facility]/pharmacy #[id number], 178, cm, 11/16/22 15:20:00 EST, Height [...] stop, # 30 tab(s), 0 Refill(s), Pharmacy: [facility]/pharmacy #[id number], 185.4, cm, 03/08/22 14:07:00 ED... Start [...] constipation, # 425 gram(s), 1 Refill(s), Pharmacy: [facility] #330, 177, cm, 04/02/25 15:00:00 EDT, Height, kg, 04/02/25 15:00:00 EDT, Dosing Weight Start Date: 04/02/25 Status: Ordered Medication Dispense Status: Completed Quantity: 425.0 Unit: g Total Allowed Fills: 2 Fills Dispensed: 0 Start: 04-16-2024 take 3.4 doses by mo [facility] three times daily as needed for constipation Metamucil 3.4 g/5.2 g oral powder for reconstitution Dose : 3.4 gram(s) =, Oral, TID, PRN as needed for constipation, # 425 gram(s), 1 Refill(s), [facility]acy: [facility] #[id number], 180, cm, 04/16/24 13:44:00 EDT, Height, kg, 04/16/24 13:42:00 EDT, Dosing Weight Start Date: 04/16/24 Status: Ordered Start: 11-19-2023 take 3.4 doses by mo [facility] three times daily as needed for constipation Metamucil 3.4 g/5.2 g oral powder for reconstitution Dose : 3.4 gram(s) =, Oral, TID, PRN as needed for constipation, # 425 gram(s), 1 Refill(s), [id number], 180, cm, 11/19/23 13:28:00 EST, Height, kg, 11/19/23 13:28:00 EST, Dosing Weight Start Date: 11/19/23 Status: Ordered Start: 06-27-2023 take 3.4 doses by mo ut three times daily as needed for constipation Metamucil 3.4 g/5.2 g oral powder for reconstitution Dose : 3.4 gram(s) =, Oral, TID, PRN as needed for constipation, # 425 gram(s), 1 Refill(s), Pharmacy: [facility]/pharmacy #[id number], 178, cm, 06/27/23 10:23:00 EDT, Height, kg, 06/27/23 10:23:00 EDT, Dosing Weight Start Date: 06/27/23 Status: Ordered Start: 05-25-2022 take 3.4 doses by mo ut three times daily as needed for constipation Metamucil 3.4 g/5.2 g oral powder for reconstitution Dose : 3.4 gram(s) =, Oral, TID, PRN as needed for constipation, # 425 gram(s), 1 Refill(s), Pharmacy: [facility]/pharmacy #[id number], 178, cm, 05/25/22 13:45:00 EDT, Height Start Date: 05/25/22 Status: Ordered Senna Leaves (3 sources) Start: 03-02-2025 Senna 8.6 mg o ral tablet Dose : 17.2 mg = 2 tab(s), Oral, qHS, PRN as needed for constipation, # 100 tab(s), 2 Refill(s), Pharmacy: [facility] #[id number], 177, cm, 03/02/25 16:22:00 EDT, Height, kg, 03/02/25 16:22:00 EDT, Dosing Weight Start Date: 03/02/25 Status: Ordered Medication Dispense Status: Completed Quantity: 100.0 Unit: tab(s) Total Allowed Fills: 3 Fills Dispensed: 0 Start: 03-02-2025 Senna 8.6 mg o ral tablet Dose : 17.2 mg = 2 tab(s), Oral, qHS, PRN as needed for constipation, # 100 tab(s), 2 Refill(s), Pharmacy: [facility] #[id number], 177, cm, 03/02/25 16:22:00 EDT, Height, kg, 03/02/25 16:22:00 EDT, Dosing Weight Start Date: 03/02/25 Status: Ordered Quantity: 100.0 Unit: tab(s) Repeat number: 3 Start: 04-16-2024 Senna 8.6 mg o ral tablet Dose : 17.2 mg = 2 tab(s), Oral, qHS, PRN as needed for constipation, # 100 tab(s), 2 Refill(s), [facility]acy: [facility] #[id number], 180, cm, 04/16/24 13:44:00 EDT, Height, kg, 04/16/24 13:42:00 EDT, Dosing Weight Start Date: 04/16/24 Status: Ordered sennosides, retirement 8.6 mg oral tablet (4 sources) Start: 11-19-2023 senna (sennosi diony) 8.6 mg oral tablet Dose : 17.2 mg = 2 tab(s), Oral, qHS, PRN as needed for constipation, # 100 tab(s), 1 Refill(s), Pharmacy: [facility] #[id number], 180, cm, 11/19/23 13:28:00 EST, Height, kg, 11/19/23 13:28:00 EST, Dosing Weight Start Date: 11/19/23 Status: Ordered Start: 06-27-2023 senna (sennosi diony) 8.6 mg oral tablet Dose : 17.2 mg = 2 tab(s), Oral, qHS, PRN as needed for constipation, # 100 tab(s), 1 Refill(s), Pharmacy: [facility]/pharmacy #[id number], 178, cm, 06/27/23 10:23:00 EDT, Height, [...] day(s), # 20 tab(s), 0 Refill(s), Pharmacy: [facility]/pharmacy #[id number], 185.4, cm, 03/08/22 14:07:00 EDT, Height, [...] On Sun02/23/25 at 0545, For 1 dose [id number] 200 actuat albuterol 0.09 mg/actuat metered dose [...] Comment on above: [facility] 1 ml denosumab 60 mg/ml prefilled syringe (5 sources) RANK Ligand Inhibitor Start: 02-28-2023 denosumab 60 mg/mL subcutaneous solution Dose : 60 mg = 1 mL, Subcutaneous, q6mo, # 1 mL, 1 Refill(s) Start Date: 02/28/23 Status: Ordered Medication Dispense Status: Completed Quantity: 1.0 Unit: mL Total Allowed Fills: 2 Fills Dispensed: 0 diazePAM 5 mg oral tablet (10 sources) Benzodiazepine Start: 01-01-2025 End: 06-15-2025 take 1 tablet by mouth every eight hours as needed for muscle spasms Diazepam 5 mg tablet Discontinued 5 mg PO EVERY 8 HOURS as needed for Muscle Spasm January 01, 2025 12:00am June 15, 2025 7:11pm diphenhydrAMINE hydrochloride 25 mg oral capsule (11 sources) Histamine-1 Receptor Antagonist Start: 2024 End: [...] above: TAKE 1 CAPSULE BY MO [facility] TWICE A DAY FOR 30 DAYS NEEDED FOR CONSTIPATION 120 actuat fluticasone propionate 0.22 mg/actuat metered dose inhaler (4 sources) Corticosteroid Start: 11-19-2023 End: 03-31-2025 take 2 puff(s) by mouth twice daily Flovent HFA 220 mcg/inh inhalation aerosol 2 puff(s), Inhalation, BID, 220 mcg per inh; rinse mouth and throat after use, # 1 EA, 5 Refill(s), Pharmacy: [facility], 180, cm, 10/02/24 9:56:00 EST, Height, kg, 10/02/24 9:56:00 EST, Dosing Weight Start Date: 10/02/24 Stop Date: 03/31/25 Status: Ordered Medication Dispense Status: Completed Quantity: 1.0 Unit: EA Total Allowed Fills: 6 Fills Dispensed: 0 Hydrocortisone (20 sources) Corticosteroid Start: 04-02-2025 End: 05-02-2025 apply 1 dose topically twice daily hydrocortisone 1% topical cream Apply 1 ellis, Topical, BID, # 15 gram(s), 2 Refill(s), Pharmacy: [facility] #[id number], Cream, 177, cm, 04/02/25 15:00:00 EDT, Height, 67.5, kg, 04/02/25 15:00:00 EDT, Dosing Weight Start Date: 04/02/25 Stop Date: 05/02/25 Status: Ordered Medication Dispense Status: Completed Quantity: 15.0 Unit: g Total Allowed Fills: 3 Fills Dispensed: 0 Start: 04-02-2025 End: 05-02-2025 hydrocortisone 1% topical cr eam Apply 1 ellis, Topical, BID, # 15 gram(s), 2 Refill(s), Pharmacy: [facility] #[id number], Cream, 177, cm, 04/02/25 15:00:00 EDT, Height, 67.5, kg, 04/02/25 15:00:00 EDT, Dosing Weight Start Date: 04/02/25 Stop Date: 05/02/25 Status: Ordered Quantity: 15.0 Unit: g Repeat number: 3 Start: 04-16-2024 End: 05-16-2024 hydrocortisone 1% topical cr eam Apply 1 ellis, Topical, BID, # 15 gram(s), 2 Refill(s), Pharmacy: [facility] #[id number], Cream, 180, cm, 04/16/24 13:44:00 EDT, Height, 69.4, kg, 04/16/24 13:42:00 EDT, Dosing Weight Start Date: 04/16/24 Stop Date: 05/16/24 Status: Ordered Start: 11-19-2023 End: 12-19-2023 hydrocortisone 1% topical cr eam Apply 1 ellis, Topical, BID, # 15 gram(s), 2 Refill(s), Pharmacy: [facility] #[id number], Cream, 180, cm, 11/19/23 13:28:00 EST, Height, 70.9, kg, 11/19/23 13:28:00 EST, Dosing Weight Start Date: 11/19/23 Stop Date: 12/19/23 Status: Ordered Start: 06-27-2023 End: 07-27-2023 hydrocortisone 1% topical cr eam Apply 1 ellis, Topical, BID, # 15 gram(s), 2 Refill(s), Pharmacy: [facility]/pharmacy #[id number], Cream, 178, cm, 06/27/23 10:23:00 EDT, Height, 64.7, kg, 06/27/23 10:23:00 EDT, Dosing Weight Start Date: 06/27/23 Stop Date: 07/27/23 Status: Ordered Start: 04-27-2022 Hydrocortisone Acetate (Anusol-Hc) 25 mg suppository Active 25 mg RC AT BEDTIME 12 April 27, 2022 12:00am Start: 04-27-2022 Hydrocortisone Acetate (Anusol-Hc) 25 mg suppository Active 25 MG RC AT BEDTIME April 27, 2022 12:00am Comment on above: Hydrocortisone Aceta te (Anusol-Hc) 25 mg suppository Active 25 MG RC AT BEDTIME April 26, 2022 11:00pm levoFLOXacin 750 mg oral tablet (10 sources) Quinolone Antimicrobial Start: 07-01-20 End: 11-13-19 [...] (1 source) Corticosteroid Start: 04-04-2020 methylPREDNISolone (MEDROL, ANTONINA,) 4 mg Dose-Pack Take by mouth. As [...] mg, IV Push, ONCE, 1 dose, On 02/23/25 at 0530 Start: 11-25-2024 take 1 tablet by angel th every eight hours as needed for nausea Ondansetron 4 mg tablet,disintegrating Active 4 mg PO EVERY 8 HOURS NEEDED as needed for Nausea 10 0 November 25, 2024 1:00am Start: 11-05-2024 End: 12-15-2024 take 1 tablet by mouth every six hours as needed for nausea and vomiting Ondansetron 4 mg tablet,disintegrating Discontinued 4 mg PO EVERY 6 HOURS as needed for nausea and vomiting 10 0 November 05, 2024 1:00am December 15, 2024 11:55am Start: 07-01-2024 End: 11-13-2024 take 1 tablet by mouth every eight hours as needed for nausea Ondansetron 4 mg tablet,disintegrating Discontinued 4 mg PO EVERY 8 HOURS NEEDED as needed for Nausea 10 0 July 01, 2024 12:00am November 13, 2024 3:13pm Start: 03-08-2022 End: 03-08-2022 ondansetron (ZOFRAN-ODT) dis integrating tablet 4 mg oxyCODONE hydrochloride 5 mg oral tablet (20 sources) Opioid Agonist Start: 07-01-2024 End: 11-13-2024 take 1 tablet by mouth every six hours as needed for pain Oxycodone 5 mg tablet Discontinued 5 mg PO EVERY 6 HOURS as needed for pain 12 3 0 July 01, 2024 November 13, 2024 3:13pm [...] 6 hours as needed. polyethylene glycol 3350 315053 mg / potassium chloride 2970 mg / sodium bicarbonate 6740 mg / sodium chloride 5860 mg / sodium sulfate 34666 mg powder for oral solution (2 sources) [...] fracture of second lumbar vertebra, initial encounter ([facility]) 1 Units once daily. Wheeled [...] pectoris] 01-04-2023 Chronic Deficiency and other anemia (10 sources) Anemia; Translations: [Anemia, unspecified] 11-13-2024 Episodic [...] Onset: 7 12-07-2021 Fracture of lower limb (10 sources) Fracture of left lower limb; Translations: [Unspecified fracture of left lower leg, initial encounter for closed fracture] 11-13-2024 Episodic Comment on above: Hardware Genitourinary symptoms and ill-defined conditions (20 sources) Nocturia 01-19-2021 Episodic Headache; including migraine (1 source) Headache; including migraine; Translations: [Headache, unspecified] Onset: 5 Hemorrhoids (20 sources) Bleeding external hemorrhoids; Translations: [Residual hemorrhoidal skin tags] 05-25-2022 Episodic Hyperplasia of prostate (8 sources) Benign prostatic hypertrophy with outflow obstruction; Translations: [Benign prostatic hyperplasia] 02-21-2023 Chronic Inflammatory conditions of male genital organs (4 sources) Prostatitis 07-02-2024 Episodic Intestinal obstruction without hernia (14 sources) Fecal impaction; Translations: [Fecal impaction of rectum] 05-31-2023 Episodic Intracranial injury (12 sources) Concussion injury of body structure; Translations: [Concussion] 10-09-2023 Episodic Joint disorders and dislocations; trauma-related (5 sources) 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 Joint disorders and dislocations; trauma-related (1 source) Unspecified dislocation of left acromioclavicular joint, initial encounter; Translations: [Unspecified dislocation of left acromioclavicular joint, initial encounter] Onset: 5 Episodic Mood disorders (20 sources) Depressive disorder; 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] 12-07-2021 Chronic Nonspecific chest pain (3 sources) Chest pain; Translations: [Chest pain, unspecified] Onset: 5 02-23-2025 Episodic Nutritional deficiencies (2 sources) Vitamin D deficiency, unspecified; Translations: [Vitamin D deficiency, unspecified] Onset: 5 Chronic Osteoarthritis (20 sources) Arthritis 06-09-2018 Chronic [...] arthritis s urgery was recommended at the [facility] patient did not want Other connective tissue disease (20 sources) Pain in bilateral legs 01-19-2021 Episodic Other connective tissue disease (20 sources) Muscle weakness of limb 01-05-2022 Episodic Other connective tissue disease (20 sources) Recurrent falls 01-05-2022 Episodic Other connective tissue disease (20 sources) Pain in lower limb; Translations: [Pain in right leg] Onset: 5 04-22-2022 Episodic Other connective tissue disease (11 sources) Heel pain; Translations: [Pain in left foot] 2024 Episodic Other connective tissue disease (20 sources) Tear of left rotator cuff; Translations: [...] of thoracic spine 12-07-2021 Episodic Other fractures (16 sources) Closed fracture lumbar vertebra; Translations: [Unspecified [...] Heartburn; Translations: [Heartburn] Episodic Other gastrointestinal disorders (20 sources) Constipation; Translations: [Constipation, unspecified] 05-31-2023 Episodic Other gastrointestinal disorders (5 sources) Therapeutic opioid induced constipation 08-15-2023 Episodic Other injuries and conditions due to external causes (20 sources) At risk for falls 02-20-2022 Episodic Other injuries and conditions due to external causes (17 sources) Closed injury of head; Translations: [Unspecified injury of head, initial encounter] 12-03-2024 Episodic Other injuries and conditions due to external causes (1 source) Encounter for examination and observation following other accident; Translations: [Encounter for examination and observation following other accident] Onset: 5 Episodic Other lower respiratory disease [...] left shoulder] Episodic Other non-traumatic joint disorders (10 sources) Chronic pain of left upper limb; [...] Unclassified (1 source) cp, leg pain Onset: 05-05-202 5 Unclassified (5 sources) 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, lumbar region with discogenic back pain and lower extremity pain Unclassified (4 sources) Degeneration of intervertebral disc of lumbar [...] fracture of second lumbar vertebra, initial encounter ([facility])] Onset: 02-11-2023 Episodic Other fractures (1 source) Other fracture of fourth lumbar vertebra, initial encounter for closed fracture; Translations: [Other closed fracture of fourth lumbar vertebra, initial encounter ([facility])] Onset: 02-11-2023 Episodic Other injuries and conditions due to external causes (2 sources) Unspecified injury of left wrist, hand and finger(s), initial encounter; Translations: [Unsp injury of left wrist, hand and finger(s), init encntr] Onset: 05-29-2017 Episodic Other injuries and conditions due to external causes (1 source) Unspecified injury of head, initial encounter; Translations: [Unspecified injury of head, initial encounter] Onset: 05-01-2025 Episodic Other injuries and conditions due to external causes (1 source) Unspecified injury of left shoulder and upper arm, initial encounter; Translations: [Unspecified injury of left shoulder and upper arm, initial encounter] Onset: 12-21-2024 Episodic Other non-traumatic joint disorders (5 sources) Pain in left wrist; Translations: [Pain in unspecified wrist] Onset: 05-28-2017 Episodic Other non-traumatic joint disorders (20 sources) Pain in left shoulder; Translations: [Left shoulder pain] Onset: 04-10-2025 11-13-2024 Episodic Other screening for suspected conditions (not mental disorders or infectious disease) (15 sources) Viral screening status; Translations: [Electrocardiogram abnormal] Onset: 12-18-2024 07-23-2023 Episodic Unclassified (20 sources) Contusion of left hip, initial encounter 02-11-2019 Unclassified (20 sources) Contusion of right knee, initial encounter 03-24-2019 Results Test Name Value Interpretation Reference Range Facility Ankle min 3 Views 08-26-20 Ankle min 3 Views [facility] Imaging Services [address] [place], [place] [id number] Ankle min 3 Views MR#: [id number] Acct: [id number] Name: WINSTON MARI Rep #: [id number] : 1955 M 70 From: Sorin galindo MD PCP: Dr. Eugenio Mayen, DO Status: REG ER Study: Ankle min 3 Views Date of Exam: 08/26/25 Exam# [id number] Ordering Dr: Dwaine Mena MD PROCEDURE: ANKLE MIN 3 VIEWS 08/26/2025 REASON FOR EXAM: PAIN/TRAUMA TECHNIQUE: Procedure Code: RADANK Modality: DX Procedure: ANKLE MIN 3 VIEWS Laterality: Left ankle COMPARISON: None FINDINGS: Bones: Calcaneal spurs. Joints: Normal alignment. Mortise appears intact. No effusion. Soft tissues: Soft tissues are unremarkable. Other: RAD/Ankle min 3 Views IMPRESSION: Calcaneal spurs. No fracture or dislocation. Reading Location: [id number] CC: Dr. Dwaine Mena MD; Dr. Eugenio Mayen DO Fashion Coordinator: Signed Normal [facility] Brain/Head without Contrasto n 08-26-2025 Brain/Head without Contrast [facility] Imaging Services [address] [place] [address] [id number] Brain/Head without Contrast MR#: [id number] Acct: [id number] Name: WINSTON MARI Rep #: [id number] : 1955 M 70 From: Zak Mejia MD PCP: Dr. Eugenio Mayen DO Status: REG ER Study: Brain/Head without Contrast Date of Exam: 03/15 Exam# [id number] Ordering Dr: Dwaine Mena MD PROCEDURE: BRAIN/HEAD WITHOUT CONTRAST 08/26/2025 REASON FOR EXAM: TRAUMA/FALL TECHNIQUE: Procedure Code: CTBR Modality: CT Procedure: BRAIN/HEAD WITHOUT CONTRAST Coronal and Sagittal reconstruction series were provided. One or more dose reduction techniques were used (e.g., Automated exposure control, adjustment of the mA and/or kV according to patient size, use of iterative reconstruction technique. RADIATION DOSE SUMMARY: CTDlvol: Not provided mGy DLP: 1293 mGycm COMPARISON: May 31, 2025 FINDINGS: Brain: There is no evidence of hemorrhage, acute ischemia or mass. No extra-axial fluid collection, midline shift or mass effect. CSF Spaces: Mild generalized cerebral atrophy Sinuses/Mastoids: Mucous retention cyst or polyps in the dependent portion of the maxillary sinuses. Similar finding in the inferior left frontal sinus. Bones: Prior craniotomy left posteriorly. The right parotid gland is partially imaged but shows a homogeneous mass measuring 1.4 x 2.6 cm situated between the superficial and deep lobes. CT/Brain/Head without Contrast IMPRESSION: 1. No evidence of acute intracranial abnormality at this time. 2. Mild volume loss 3. Prior craniotomy left posteriorly is uncomplicated. 4. 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 Reading Location: [id number] CC: Dr. Dwaine Mena MD; Dr. Eugenio Mayen DO Fashion Coordinator: Signed Normal [facility] CBC W/Diff, Automatedon 11-0 Absolute Lymph 1.86 X10 3/uL Normal 0.83-4.51 [facility] Comment on above: Performed By: #### L 500.2500, L500.3400 #### [facility] Laboratory [address] [place], [address] Absolute Neut 4.2 X10 3/uL Normal 2.0-7.7 [facility] Comment on above: Performed By: #### L 500.2500, L500.3400 #### [facility] [address] [place], [address] Basophils/100 WBC (Bld) 0.7 % Normal 0-1 [facility] Comment on above: Performed By: #### L 500.2500, L500.3400 #### [facility] [address] [place], [address] Eosinophils/100 WBC (Bld) 4.1 % Normal 0-5 [facility] Comment on above: Performed By: #### L 500.2500, L500.3400 #### [facility] [address] [place], [address] Erythrocyte distribution width (RBC) [Ratio] 12.9 % Normal 11.6-14.6 [facility] Comment on above: Performed By: #### L 500.2500, L500.3400 #### [facility] [address] [place], [address] Hematocrit (Bld) [Volume fraction] 33.6 % Low 40-54 [facility] Comment on above: Performed By: #### L 500.2500, L500.3400 #### [facility] [address] [place], [address] Hemoglobin (Bld) [Mass/Vol] 11.0 g/dL Low 13.0-16.5 [facility] Comment on above: Performed By: #### L 500.2500, L500.3400 #### [facility] [address] [place], [address] IG% 0.400 Normal 0.0-0.9 [facility] Comment on above: Result Comment: IG% - Immature Granulocytes (promyelocytes, myelocytes and metamyelocytes) > 1% indicates that a LEFT SHIFT is Present. Performed By: #### L 500.2500, L500.3400 #### [facility] [address] [place], [address] Lymphocytes/100 WBC (Bld) 26.3 % Normal 19-41 [facility] Comment on above: Performed By: #### L 500.2500, L500.3400 #### [facility] [address] [place], [address] MCH (RBC) [Entitic mass] 31.0 pg Normal 27.0-32.0 [facility] Comment on above: Performed By: #### L 500.2500, L500.3400 #### [facility] [address] [place], [address] MCHC (RBC) [Mass/Vol] 32.7 g/dL Normal 32-36 [facility] Comment on above: Performed By: #### L 500.2500, L500.3400 #### [facility] [address] [place], [address] MCV (RBC) [Entitic vol] 94.6 fL High 80-94 [facility] Comment on above: Performed By: #### L 500.2500, L500.3400 #### [facility] [address] [place], [address] Monocytes/100 WBC (Bld) 8.4 % Normal 0-10 [facility] Comment on above: Performed By: #### L 500.2500, L500.3400 #### [facility] [address] [place], [address] Neutrophils/100 WBC (Bld) 60.1 % Normal 47-70 [facility] Comment on above: Performed By: #### L 500.2500, L500.3400 #### [facility] [address] [place], [address] Nucleated RBC (Bld) [#/Vol] 0 10*3/uL Normal 0-5 [facility] Comment on above: Performed By: #### L 500.2500, L500.3400 #### [facility] Laboratory [address] [place], [address] Platelet mean volume (Bld) [Entitic vol] 8.8 fL Normal 6.2-12.0 [facility] Comment on above: Performed By: #### L 500.2500, L500.3400 #### [facility] Laboratory [address] [place], [address] Platelets (Bld) [#/Vol] 382 10*3/uL Normal 150-450 [facility] Comment on above: Performed By: #### L 500.2500, L500.3400 #### [facility] Laboratory [address] [place], [address] RBC (Bld) [#/Vol] 3.55 10*6/uL Low 4.6-6.2 [facility] Comment on above: Performed By: #### L 500.2500, L500.3400 #### [facility] Laboratory [address] [place], [address] RDW SD 45.0 fl High 35.1-43.9 [facility] Comment on above: Performed By: #### L 500.2500, L500.3400 #### [facility] Laboratory [address] [place], [address] WBC (Bld) [#/Vol] 7.1 10*3/uL Normal 4.4-11.0 [facility] Comment on above: Performed By: #### L 500.2500, L500.3400 #### [facility] Laboratory [address] [place], [address] CT Chest, Abd, Pel w/Contras ton 08-26-2025 CT Chest, Abd, Pel w/Contrast [facility] Imaging Services [address] [place] [address] CT Chest, Abd, Pel w/Contrast MR#: [id number] Acct: [id number] Name: WINSTON MARI Rep #: [id number] : 1955 M 70 From: Sorin galindo MD PCP: Dr. Eugenio Mayen, Status: REG ER Study: CT Chest, Abd, Pel w/Contrast Date of Exam: Exam# [id number] Ordering Dr: Dwaine Mena MD PROCEDURE: CT CHEST, ABD, PEL W/CONTRAST 08/26/2025 REASON FOR EXAM: TRAUMA/FALL, PAIN THROUGHOUT L SIDE TECHNIQUE: Chest, abdomen and pelvis CT with intravenous contrast. Coronal and Sagittal reconstruction series were provided. One or more dose reduction techniques were used (e.g., Automated exposure control, adjustment of the mA and/or kV according to patient size, use of iterative reconstruction technique. PATIENT PREPARATION: Per protocol ORAL CONTRAST TYPE: None. CONTRAST: Isovue 370 VOLUME: 100mL RADIATION DOSE SUMMARY: CTDlvol: 26.6 mGy DLP: 449.2 mGycm COMPARISON: May 31, 2025 FINDINGS: CT CHEST: Hardware: EKG electrodes. Lymph nodes: Small benign-appearing bilateral axillary lymph nodes. Heart and Vasculature: The heart is nonenlarged. Coronary artery calcification. Lungs and Airways: Stable 5.5 mm noncalcified nodule in the posterior medial segment of the right lower lobe as seen on axial image number 70. Mild increased linear markings at the lung bases suggestive of scarring. Pleura: No pleural effusion. Bones: Degenerative changes of the thoracic spine. Stable loss of height of the T6 and T9 vertebral bodies. CT ABDOMEN/PELVIS: Liver: Normal size. No mass. Gallbladder: Unremarkable Spleen: Calcified splenic granulomas. Pancreas: Diffuse fatty atrophy. Adrenals: Unremarkable Kidneys: Unremarkable Bladder: The urinary bladder is distended. Stable prosthetic enlargement. Bowel: Scattered sigmoid diverticula. Appendix: Unremarkable Lymph nodes: Unremarkable. Vasculature: Mild diffuse atherosclerotic calcifications are noted. Peritoneum / Retroperitoneum: Unremarkable Bones: Degenerative changes of the spine. Stable mild loss of height of the superior endplate of the L2 vertebrae. CT/CT Chest, Abd, Pel w/Contrast IMPRESSION: Stable examination. No acute abnormality is seen. Reading Location: [id number] CC: Dr. Dwaine Mena MD; Dr. Eugenio Mayen DO Fashion Coordinator: Signed Normal [facility] Chest 1 View (Portable)on Chest 1 View (Portable) [facility] Imaging Services [address] [place] [address] Chest 1 View (Portable) MR#: [id number] Acct: [id number] Name: WINSTON MARI Rep #: [id number] : 1955 M 70 From: Patricia Del Cid MD PCP: Dr. Eugenio Mayen DO Status: REG ER Study: Chest 1 View (Portable) Date of Exam: 08/26/25 Exam# [id number] Ordering Dr: Dwaine Mena MD EXAM: XR Chest, 1 View CLINICAL INDICATION: TRAUMA, L CP/SOB TECHNIQUE: Frontal view of the chest. COMPARISON: No relevant prior studies available. FINDINGS: LUNGS AND PLEURAL SPACES: Unremarkable. No consolidation. No pneumothorax. HEART: Unremarkable. No cardiomegaly. MEDIASTINUM: Unremarkable. Normal mediastinal contour. BONES/JOINTS: Unremarkable. No acute fracture. RAD/Chest 1 View (Portable) IMPRESSION: No acute cardiopulmonary process. Reading Location: [facility] CC: Dr. Dwaine Mena MD; Dr. Eugenio Mayen DO Fashion Coordinator: Signed Normal [facility] Comprehensive Metabolic Prof ilon 08-26-2025 Albumin [Mass/Vol] 3.8 g/dL Normal 3.4-4.8 [facility] Comment on above: Performed By: #### L 500.2500, L500.3400 #### [facility] Laboratory [address] [place], [address] Albumin/Globulin [Mass ratio] 1.4 {ratio} Normal 0.9-2.4 [facility] Comment on above: Performed By: #### L 500.2500, L500.3400 #### [facility] Laboratory [address] [place], [address] ALK PHOS 73 U/L Normal 40-129 [facility] Comment on above: Performed By: #### L 500.2500, L500.3400 #### [facility] Laboratory [address] [place], [address] ALT [Catalytic activity/Vol] 9 U/L Normal <=46 [facility] Comment on above: Performed By: #### L 500.2500, L500.3400 #### [facility] Laboratory [address] [place], [address] AST [Catalytic activity/Vol] 18 U/L Normal <=37 [facility] Comment on above: Performed By: #### L 500.2500, L500.3400 #### [facility] Laboratory [address] [place], [address] Bilirubin [Mass/Vol] 0.34 mg/dL Normal 0.00-1.30 [facility] Comment on above: Performed By: #### L 500.2500, L500.3400 #### [facility] Laboratory [address] [place], [address] BUN/CRE 22.9 RATIO High 10-20 [facility] Comment on above: Performed By: #### L 500.2500, L500.3400 #### [facility] Laboratory [address] [place], [address] Calcium [Mass/Vol] 9.0 mg/dL Normal 7.6-11.0 [facility] Comment on above: Performed By: #### L 500.2500, L500.3400 #### [facility] Laboratory [address] [place], [address] Chloride [Moles/Vol] 104 mmol/L Normal 98-108 [facility] Comment on above: Performed By: #### L 500.2500, L500.3400 #### [facility] Laboratory [address] [place], [address] CO2 [Moles/Vol] 23.0 mmol/L Normal 21.0-32.0 [facility] Comment on above: Performed By: #### L 500.2500, L500.3400 #### [facility] Laboratory [address] [place], [address] Creatinine [Mass/Vol] 0.83 mg/dL Normal 0.70-1.20 [facility] Comment on above: Performed By: #### L 500.2500, L500.3400 #### [facility] Laboratory [address] [place], [address] ECRCL 89.46 ml/min Normal 50-250 [facility] Comment on above: Performed By: #### L 500.2500, L500.3400 #### [facility] Laboratory [address] [place], [address] GAP 11 Normal 5-15 [facility] Comment on above: Performed By: #### L 500.2500, L500.3400 #### [facility] Laboratory [address] [place], [address] GFR/1.73 sq M.predicted among non-blacks MDRD (S/P/Bld) [Vol rate/Area] 95 mL/min/{1.73_m2} Normal >60 [facility] Comment on above: Result Comment: mL/m in/1.73m2 CKD-EPI Creatinine Equation (2020) Performed By: #### L 500.2500, L500.3400 #### [facility] Laboratory [address] [place], [address] Globulin (S) [Mass/Vol] 2.7 g/dL Normal 2.2-4.2 [facility] Comment on above: Performed By: #### L 500.2500, L500.3400 #### [facility] Laboratory [address] [place], [address] Glucose [Mass/Vol] 103 mg/dL High 70-99 [facility] Comment on above: Performed By: #### L 500.2500, L500.3400 #### [facility] Laboratory [address] [place], [address] Potassium [Moles/Vol] 4.3 mmol/L Normal 3.3-5.1 [facility] Comment on above: Performed By: #### L 500.2500, L500.3400 #### [facility] Laboratory [address] [place], [address] Sodium [Moles/Vol] 137 mmol/L Normal 133-145 [facility] Comment on above: Performed By: #### L 500.2500, L500.3400 #### [facility] Laboratory [address] [place], [address] T PROT 6.5 g/dL Normal 5.9-8.4 [facility] Comment on above: Performed By: #### L 500.2500, L500.3400 #### [facility] Laboratory [address] [place], [address] Urea nitrogen [Mass/Vol] 19 mg/dL Normal 4-19 [facility] Comment on above: Performed By: #### L 500.2500, L500.3400 #### [facility] Laboratory [address] [place], [address] Emergency Department Summary on 08-26-2025 Emergency Department Summary [facility] Medical Records Department [address] [place] [address] Emergency Department Summary 08/26/25 MR#: [id number] Acct: [id number] Name: WINSTON MARI Rep #: [id number] : 1955 70 From: Dwaine Mena MD PCP: Dr. Eugenio Mayen, DO Status:REG ER Location: ED HPI HPI - Fall History of Present Illness Chief Complaint: Trauma Informant: patient and EMS Narrative Narrative: Patient is a 70-year-old male presenting to the ED after a fall from a ladder, with multiple areas of pain. - Patient was cutting tree limbs high up on a 16-foot ladder when he fell, landing on grass. - Reports pain in the left side of his chest and abdomen, right arm, left hip, left leg, back, and neck. - Describes neck pain as a stabbing sensation when turning to the left. - Uncertain if he hit his head during the fall; reports head pain and blurry vision. - Denies loss of consciousness; remembers falling but not hitting the ground. - Reports some mild difficulty breathing. - On Plavix for suspected blood clots due to a previous leg injury and age". - History of left femur ortho surgery at age 19 due to injury. [facility] Medical History Wears glasses Wears dentures Unsteady gait Spermatocele Scrotal swelling Screen for colon cancer Right nephrolithiasis Renal lesion Prostatosis syndrome Peyronie disease PVD (peripheral vascular disease) Need for hepatitis C screening test Meniscus degeneration Major depression in remission Lung nodules Lumbar radiculopathy Lumbar foraminal stenosis Left wrist pain Left leg weakness Iron deficiency Immunity status testing High risk medication use Former smoker Foot pain Family history of Vern's disease Chronic, continuous use of opioids Chronic pain Calcified granuloma of lung CAD (coronary artery disease) Brain aneurysm BPH (benign prostatic hyperplasia) Aortic atherosclerosis Anal fissure Abnormal EKG Former cigarette smoker Osteopenia COPD with emphysema Left rotator cuff tear Anemia GERD (gastroesophageal reflux disease) Left shoulder pain Hemorrhoid Epilepsy Sciatica High cholesterol Home Medications ???Medication ???Instructions ???Recorded ???Last Taken ???Type gabapentin 300 mg capsule 400 mg PO 4X/DAY 04/02/22 Unknown History hydrocortisone acetate 25 mg 25 mg MD QHS #12 ea 04/27/22 Unkno wn Rx [...] #10 tab s 11/25/24 Unknown Rx tablet cyclobenzaprine 10 mg tablet 10 mg PO QHS PRN PRN Muscle Spasm 06/11/25 Unknown Rx #10 TABLETS Diltiazem TNF med topical 07/31/25 Unknown History acetaminophen 500 mg tablet 500 mg PO Q8 07/31/25 Unknown Hist ory albuterol sulfate 90 mcg/actuation 2 puff inhalation Q4 07/31/25 Un known History aerosol inhaler denosumab 60 mg/mL subcutaneous 60 mg subcut [id number] 07/31/25 Unk nown History syringe diltiazem HCl 120 mg tablet mg PO 07/31/25 Unknown History finasteride 5 mg tablet 5 mg PO DAILY 07/31/25 Unknown His tory fluticasone propionate 220 2 puff inhalation BID 07/31/25 Unk nown History mcg/actuation HFA aerosol inhaler hydrocortisone 1 % topical cream applic topical BID 07/31/25 Unknow n History oxycodone-acetaminophen 10 mg-325 1 tab PO Q6 07/31/25 Unknown Hist ory mg tablet oxycodone-acetaminophen 7.5 mg-325 1 tab PO Q6 07/31/25 Unknown His tory mg tablet psyllium husk 3.4 gram oral powder 3.4 g PO TID PRN 07/31/25 Unknow n History packet (Daily Fiber (psyllium-aspartame)) sennosides 8.6 mg tablet (senna) 17.2 mg PO PRN constipation Unknown History tiotropium 2.5 mcg-olodaterol 2.5 2 puff inhalation DAILY 07/31/25 Unknown History mcg/actuation mist for inhalation (Stiolto Respimat) oxycodone-acetaminophen 5 mg-325 1 tab PO Q6H PRN PRN Pain 3 days 1 10/26/24 Unknown Rx mg tablet #12 TABLETS Allergy/AdvReac Type Severity Reaction Status Date / Time lidocaine (From Lidoderm) Allergy Mild Rash Verified 08/26/25 11:52 cyclobenzaprine (From Allergy Unknown Itchi (more content not included)... Normal [facility] Foot min 3 Viewson Foot min 3 Views [facility] Imaging Services [address] [place] [address] Foot min 3 Views MR#: [id number] Acct: [id number] Name: WINSTON MARI Rep #: [id number] : 1955 M 70 From: Sorin galindo MD PCP: Dr. Eugenio Mayen, DO Status: REG ER Study: Foot min 3 Views Date of Exam: 08/26/25 Exam# [id number] Ordering Dr: Dwaine Mena MD PROCEDURE: FOOT MIN 3 VIEWS 08/26/2025 REASON FOR EXAM: PAIN/TRAUMA TECHNIQUE: Procedure Code: RADFO Modality: DX Procedure: FOOT MIN 3 VIEWS Laterality: Left foot COMPARISON: Prior study dated November 05, 2024. FINDINGS: Bones: No fracture is seen. Joints: Degenerative changes at the distal tarsometatarsal joints. Calcaneal spurs. Soft tissues: Mild soft tissue swelling. Other: RAD/Foot min 3 Views IMPRESSION: Degenerative changes at the distal tarsometatarsal joints. No fracture is seen. Reading Location: [facility] CC: Dr. Dwaine Mena MD; Dr. Eugenio Mayen DO Fashion Coordinator: Signed Normal [facility] HIP, UNI W/ Pelvis 2-3 Views on 08-26-2025 HIP, UNI W/ Pelvis 2-3 Views [facility] Imaging Services [address] [place], [place] [id number] HIP, UNI W/ Pelvis 2-3 Views MR#: [id number] Acct: [id number] Name: WINSTON MARI Rep #: [id number] : 1955 M 70 From: Sorin galindo MD PCP: Dr. Eugenio Mayen DO Status: REG ER Study: HIP, UNI W/ Pelvis 2-3 Views Date of Exam: 03/15 Exam# [id number] Ordering Dr: Dwaine Mena MD PROCEDURE: HIP, UNI W/ PELVIS 2-3 VIEWS 08/26/2025 REASON FOR EXAM: TRAUMA/PAIN TECHNIQUE: Procedure Code: RAD Modality: DX Procedure: HIP, UNI W/ PELVIS 2-3 VIEWS Laterality: Left hip COMPARISON: None FINDINGS: Bones: No fracture is seen. Joints: Mild degree of joint space narrowing of both hip joints. Degenerative changes of the lower lumbar spine. Soft tissues: Calcified phleboliths. Other: RAD/HIP, UNI W/ Pelvis 2-3 Views IMPRESSION: Degenerative changes of both hip joints. No fracture is seen. Reading Location: [id number] CC: Dr. Dwaine Mena MD; Dr. Eugenio Mayen DO Fashion Coordinator: Signed Normal [facility] Lipaseon 08-26-2025 Lipase [Catalytic activity/Vol] 27 U/L Normal 13-75 [facility] Comment on above: Result Comment: Plea se note: LIPASE revised reference range effective 23. New Lipase methodology. Expected to produce lower values than the previous assay method. NEW Reference Range: 13 - 75 U/L Performed By: #### L 500.2500, L500.3400 #### [facility] Laboratory [address] [place], [address] Partial Thromboplast Timeon 08-26-2025 aPTT Coag (Bld) [Time] 28.3 s Normal 24.1-36.2 [facility] Comment on above: Performed By: #### L 500.2500, L500.3400 #### [facility] Laboratory [address] [place], [address] Prothrombin Time w/INRon INR Coag (PPP) [Relative time] 1.0 {INR} Normal [facility] Comment on above: Performed By: #### L 500.2500, L500.3400 #### [facility] Laboratory [address] [place], [address] PT Coag (PPP) [Time] 13.5 s Normal 11.7-14.9 [facility] Comment on above: Performed By: #### L 500.2500, L500.3400 #### [facility] Laboratory [address] [place], [address] Shoulder min 2 Viewson 08-26 Shoulder min 2 Views [facility] Imaging Services [address] [place] [address] Shoulder min 2 Views MR#: [id number] Acct: [id number] Name: WINSTON MARI Paul Rep #: [id number] : 1955 M 70 From: Patricia Del Cid MD PCP: Dr. Eugenio Mayen, DO Status: REG ER Study: Shoulder min 2 Views Date of Exam: 08/26/25 Exam# [id number] Ordering Dr: Dwaine Mena MD EXAM: XR Left Shoulder Complete, 2 or More Views CLINICAL INDICATION: PAIN/TRAUMA TECHNIQUE: Two or more views of the left shoulder. COMPARISON: No relevant prior studies available. FINDINGS: BONES/JOINTS: Moderate degenerative change of the acromioclavicular and glenohumeral joints. Healed fracture deformity of the mid humerus. No dislocation. SOFT TISSUES: Unremarkable. RAD/Shoulder min 2 Views IMPRESSION: 1. Degenerative changes as above. 2. Healed fracture deformity of the mid humerus. Reading Location: [facility] CC: Dr. Dwaine Mena MD; Dr. Eugenio Mayen DO Fashion Coordinator: Signed Normal [facility] Spine Cervical without Contr ason 08-26-2025 Spine Cervical without Contras [facility] Imaging Services [address] [place] [address] Spine Cervical without Contras MR#: [id number] Acct: [id number] Name: WINSTON MARI Rep #: [id number] : 1955 70 From: Sorin galindo MD PCP: Dr. Eugenio Mayen DO Status: REG ER Study: Spine Cervical without Contras Date of Exam: 10/26/24 Exam# [id number] Ordering Dr: Dwaine Mena MD PROCEDURE: SPINE CERVICAL WITHOUT CONTRAS 08/26/2025 REASON FOR EXAM: TRAUMA/FALL/NECK PAIN TECHNIQUE: Procedure Code: CTSPC Modality: CT Procedure: SPINE CERVICAL WITHOUT CONTRAS Coronal and Sagittal reconstruction series were provided. One or more dose reduction techniques were used (e.g., Automated exposure control, adjustment of the mA and/or kV according to patient size, use of iterative reconstruction technique. RADIATION DOSE SUMMARY: CTDlvol: 19.48 mGy DLP: 392.78 mGycm COMPARISON: May 31, 2025. FINDINGS: Alignment: Normal lordosis. Vertebrae: Spondylosis at the C4-C5 C5-C6 levels. Soft Tissues: Atherosclerotic calcification of the carotid bifurcations. Other: Stable adsf-zu-ofcoqohz degree of central canal narrowing at multiple levels. C1-2: Degenerative changes of the atlantoaxial joint. C2-3: Unremarkable C3-4: Minimal anterior listhesis of C3 on C4 most likely secondary to the facet joint osteoarthritis worse on the left side. No significant stenosis seen. C4-5: Marked degree of disc space narrowing. Spondylosis. Uncovertebral arthrosis. Bilateral neural foraminal stenosis right greater than left. C5-6: Moderate degree of disc space narrowing. Spondylosis. Uncovertebral arthrosis. Bilateral neural foraminal stenosis right greater than left. C6-7: Moderate degree of disc space narrowing. Spondylosis. Uncovertebral arthrosis. Facet joint osteoarthritis. Bilateral neural foraminal stenosis. C7-T1: CT/Spine Cervical without Contras IMPRESSION: Multilevel degenerative changes with the bilateral neural foraminal stenosis as described. No acute abnormality is seen. Reading Location: [id number] CC: Dr. Dwaine Mena MD; Dr. Eugenio Mayen DO Fashion Coordinator: Signed Normal [facility] Type AND Screenon 08-26-2025 ABO and Rh group Nom (Bld) Blood group O Rh(D) positive Normal [facility] Comment on above: Order Comment: T Performed By: #### L 100.0100, L500.3400, L500.2500 #### [facility] Laboratory [address] [place], [address] Urinalysis, Completeon 08-26 RBC 0-5 SEEN Normal 0-5 [facility] Comment on above: Order Comment: COLLE CTOR TO SPECIFY Performed By: #### L 400.0001 ####[facility] [id number] [place], [address] BACTERIA 0 SEEN Normal None Seen [facility] Comment on above: Order Comment: COLLE CTOR TO SPECIFY Performed By: #### L 400.0001 ####[facility] [id number] [place], [address] EPI,SQUAMOUS 0 SEEN Normal 0-5 [facility] Comment on above: Order Comment: COLLE CTOR TO SPECIFY Performed By: #### L 400.0001 ####[facility] [id number] [place], [address] Mucus Ql (Urine sed) 0 SEEN Normal [facility] Comment on above: Order Comment: COLLE CTOR TO SPECIFY Performed By: #### L 400.0001 ####[facility] [id number] [place], [place], [id number] WBC 0 SEEN Normal 0-5 [facility] Comment on above: Order Comment: COLLE CTOR TO SPECIFY Performed By: #### L 400.0001 ####[facility] [id number] [place], [address] Emergency Department Summary on 06-15-2025 Emergency Department Summary [facility] Medical Records Department [address] [place] [address] Emergency Department Summary 06/15/25 MR#: [id number] Acct: [id number] Name: WINSTON MARI Rep #: [id number] : 1955 70 From: Kezia Gonzales MD PCP: Dr. Eugenio Mayen, DO Status:DEP ER Location: ED HPI History of Present Illness Chief Complaint: Back Narrative Narrative: Patient is a 70-year-old male presenting to the emergency department for back pain. Patient has a past medical history as below including chronic history of back pain. States he was lifting a freezer with someone and felt something pull in his back. States this happened on and has been dealing with the pain since. Reports he has taken leftover Percocet for pain. Reports that he has a tingling sensation down his right sided "butt and leg". Reports an episode of bowel incontinence while sleeping overnight? States this hasn't happened before. No bowel or bladder incontinence or retention during the day. No weakness of his leg. No fevers, headache, IV drug use. [facility] Medical History Left rotator cuff tear Anemia GERD (gastroesophageal reflux disease) Left shoulder pain Hemorrhoid Epilepsy Sciatica High cholesterol Home Medications ???Medication ???Instructions ???Recorded ???Last Taken ???Type gabapentin 300 mg capsule 400 mg PO 4X/DAY 04/02/22 Unknown History hydrocortisone acetate 25 mg 25 mg MD QHS #12 ea 04/27/22 Unkno wn Rx [...] tablet oxycodone-acetaminophen 5 mg-325 1 tab PO Q6H PRN PRN Pain 3 days 0 05/31/25 Unknown Rx mg tablet #12 TABLETS cyclobenzaprine 10 mg tablet 10 mg PO QHS PRN PRN Muscle Spasm 06/11/25 Unknown Rx #10 TABLETS Allergy/AdvReac Type Severity Reaction Status Date / Time adhesive tape (tape) AdvReac Rash Verified 06/15/25 17:56 hydrocodone (From [place]) AdvReac Upset Verified 06/15/25 17:56 Stomach ibuprofen AdvReac Upset Verified 06/15/25 17:56 Stomach ketorolac (From Toradol) AdvReac Rash Verified 06/15/25 17:56 meloxicam (From Mobic) AdvReac Muscle Verified 06/15/25 17:56 weakness naproxen AdvReac Rash Verified 06/15/25 17:56 tramadol AdvReac Upset Verified 06/15/25 17:56 Stomach Family History Other Cancer Diabetes Heart disease Surgical History Leg fracture, left S/P clamping of cerebral aneurysm Social History household members: significant other Smoking Status: Former smoker alcohol intake: former substance use type: does not use ROS ROS ED ROS Narrative See HPI EXAM Physical Exam Narrative Exam Narrative: Vital signs: Reviewed General: Alert and oriented. No acute distress HEENT: Head is normocephalic and atraumatic, sinuses nontender, pupils equal round and reactive. Nares are patent. Oropharynx and throat exams normal. Neck: Supple without lymphadenopathy nontender. No midline cervical spinal tenderness to palpation. No step-offs or deformities. Cardiovascular: Regular rate and rhythm, no murmurs. No rubs or gallops. Normal S1 and S2 Respiratory: Clear to auscultation bilaterally. No wheezes, rales, rhonchi Abdominal: Soft and nontender. Normal bowel sounds. No guarding or rebound. Nonsurgical abdomen Extremities: There is midline thoracic and lumbar spinal tenderness to palpation diffusely. No step-offs or deformities. Strength is 5 out of 5 in bilateral lower extremities. Sensation intact in bilateral lower extremities. Skin: No rash or redness. Neurological: Cranial nerves II through XII are grossly intact. Normal strength and sensation. Normal cerebellar function The rest of the physical exam is unremarkable Const Vital Signs: 06/15/25 17:57 06/15/25 19:56 06/15/25 21:00 Temperature 98.3 F Temperature Source Temporal Pulse Rate 76 52 L 61 Respiratory Rate 15 15 15 Blood Pressure 128/76 H (more content not included)... Normal [facility] Spine Lumbar without Contras ton 06-15-2025 Spine Lumbar without Contrast [facility] Imaging Services [address] [place], [place] [address] Spine Lumbar without Contrast MR#: [id number] Acct: [id number] Name: WINSTON MARI Rep #: [id number] : 1955 M 70 From: Rubén Carvalho MD PCP: Dr. Eugenio Mayen, DO Status: REG ER Study: Spine Lumbar without Contrast Date of Exam: Exam# [id number] Ordering Dr: Kezia Gonzales MD PROCEDURE: CT SPINE THORACIC; SPINE LUMBAR WITHOUT CONTRAST 06/15/2025 REASON FOR EXAM: BACK PAIN; MIDLINE BACK PAIN TECHNIQUE: CT of the thoracic and lumbar spine without contrast. Coronal and Sagittal reconstruction series were provided. One or more dose reduction techniques were used (e.g., Automated exposure control, adjustment of the mA and/or kV according to patient size, use of iterative reconstruction technique). RADIATION DOSE SUMMARY: DLP: 1288.28 mGycm COMPARISON: 04/26/2025. FINDINGS: No evidence of acute fracture. Stable appearance of multiple chronic appearing mild superior endplate compression fracture deformities involving T6, T9, L2, L4 and L5 vertebral bodies. No subluxation or retropulsion. No significant spinal canal or high-grade osseous neural foraminal narrowing. Mild multilevel spondylotic changes with varying degrees of disc space narrowing with vacuum disc phenomena, endplate sclerosis, anterior endplate osteophytosis, and hypertrophic facet arthropathy. Unremarkable paravertebral soft tissues. Mild-moderate bilateral centrilobular pulmonary emphysema. Unchanged 6 mm nodule in the right lower lobe, probably postinflammatory but nonspecific. Calcified left mediastinal/hilar lymph nodes, and numerous calcified granulomas in the spleen suggesting a prior granulomatous process. Few bilateral simple appearing renal cysts. Moderate aortoiliac atherosclerotic disease, with stable mild fusiform ectasia of the infrarenal abdominal aorta. CT/Spine Lumbar without Contrast IMPRESSION: No evidence of acute fracture or malalignment. Similar appearance of mild multilevel spondylotic changes, and several mild chronic superior endplate compression fracture deformities of T6, T9, L2, L4 and L5. Reading Location: [facility] CC: Dr. Kezia Gonzales MD; Dr. Eugenio Mayen DO Fashion Coordinator: Signed Normal [facility] Spine Thoracic without Contr ason 06-15-2025 Spine Thoracic without Contras [facility] Imaging Services [address] [place], [place] [id number] Spine Thoracic without Contras MR#: [id number] Acct: [id number] Name: WINSTON MARI Rep #: [id number] : 1955 M 70 From: Rubén Carvalho MD PCP: Dr. Eugenio Mayen DO Status: REG ER Study: Spine Thoracic without Contras Date of Exam: 0 06/15/25 Exam# [id number] Ordering Dr: Kezia Gonzales MD PROCEDURE: CT SPINE THORACIC; SPINE LUMBAR WITHOUT CONTRAST 06/15/2025 REASON FOR EXAM: BACK PAIN; MIDLINE BACK PAIN TECHNIQUE: CT of the thoracic and lumbar spine without contrast. Coronal and Sagittal reconstruction series were provided. One or more dose reduction techniques were used (e.g., Automated exposure control, adjustment of the mA and/or kV according to patient size, use of iterative reconstruction technique). RADIATION DOSE SUMMARY: DLP: 1288.28 mGycm COMPARISON: 04/26/2025. FINDINGS: No evidence of acute fracture. Stable appearance of multiple chronic appearing mild superior endplate compression fracture deformities involving T6, T9, L2, L4 and L5 vertebral bodies. No subluxation or retropulsion. No significant spinal canal or high-grade osseous neural foraminal narrowing. Mild multilevel spondylotic changes with varying degrees of disc space narrowing with vacuum disc phenomena, endplate sclerosis, anterior endplate osteophytosis, and hypertrophic facet arthropathy. Unremarkable paravertebral soft tissues. Mild-moderate bilateral centrilobular pulmonary emphysema. Unchanged 6 mm nodule in the right lower lobe, probably postinflammatory but nonspecific. Calcified left mediastinal/hilar lymph nodes, and numerous calcified granulomas in the spleen suggesting a prior granulomatous process. Few bilateral simple appearing renal cysts. Moderate aortoiliac atherosclerotic disease, with stable mild fusiform ectasia of the infrarenal abdominal aorta. CT/Spine Thoracic without Contras IMPRESSION: No evidence of acute fracture or malalignment. Similar appearance of mild multilevel spondylotic changes, and several mild chronic superior endplate compression fracture deformities of T6, T9, L2, L4 and L5. Reading Location: [id number] CC: Dr. Kezia Gonzales MD; Dr. Eugenio Mayen DO Fashion Coordinator: Signed Normal [facility] Emergency Department Summary on 06-11-2025 Emergency Department Summary [facility] Medical Records Department [address] [place] [address] Emergency Department Summary 06/11/25 MR#: [id number] Acct: [id number] Name: WINSTON MARI Paul Rep #: [id number] : 1955 70 From: Nicolás Rojas DO [...] bladder changes. Patient denies any saddle anesthesia. [facility] Medical History Left rotator cuff tear Anemia GERD (gastroesophageal reflux disease) Left shoulder pain Hemorrhoid Epilepsy Sciatica High cholesterol Home Medications ???Medication ???Instructions ???Recorded ???Last Taken ???Type gabapentin 300 mg capsule 300 mg PO 4X/DAY 04/02/22 Unknown History hydrocortisone acetate 25 mg 25 mg MD QHS #12 ea 04/27/22 Unkno wn Rx [...] AdvReac Rash Verified 06/11/25 08:32 hydrocodone (From [place]) AdvReac Upset Verified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 decreased 15-29 G5 Kidney Failure <15 Release to patient->Immediate Performed By: #### L AB15 #### [address] CO2 [Moles/Vol] 27 mmol/L Normal 21-31 [facility] Comment on above: Order Comment: KDIGO 2012 GFR Categories Stage Description eGFR (mL/min/1.73m2) G1 Normal or high >=90 G2 Mildly decreased 60-89 G3a Mildly to moderately decreased 45-59 G3b Moderately to severely decreased 30-44 G4 Severely decreased 15-29 G5 Kidney Failure <15 Release to patient->Immediate Performed By: #### L AB15 #### [address] Creatinine [Mass/Vol] 0.93 mg/dL Normal 0.7-1.3 [facility] Comment on above: Order Comment: KDIGO 2012 GFR Categories Stage Description eGFR (mL/min/1.73m2) G1 Normal or high >=90 G2 Mildly decreased 60-89 G3a Mildly to moderately decreased 45-59 G3b Moderately to severely decreased 30-44 G4 Severely decreased 15-29 G5 Kidney Failure <15 Release to patient->Immediate Performed By: #### L AB15 #### [place] [id number] [facility] GFR/1.73 sq M.predicted among non-blacks MDRD (S/P/Bld) [Vol rate/Area] 89 mL/min/{1.73_m2} Normal >90 [facility] Comment on above: Order Comment: KDIGO [...] coefficient. Performed By: #### L AB15 #### [place] [id number] [facility] Glucose [Mass/Vol] 97 mg/dL Normal 74-109 [facility] Comment on above: Order Comment: KDIGO 2012 GFR Categories Stage Description eGFR (mL/min/1.73m2) G1 Normal or high >=90 G2 Mildly decreased 60-89 G3a Mildly to moderately decreased 45-59 G3b Moderately to severely decreased 30-44 G4 Severely decreased 15-29 G5 Kidney Failure <15 Release to patient->Immediate Performed By: #### L AB15 #### [place] [id number] [facility] Potassium [Moles/Vol] 3.7 mmol/L Normal 3.5-5.1 [facility] Comment on above: Order Comment: KDIGO 2012 GFR Categories Stage Description eGFR (mL/min/1.73m2) G1 Normal or high >=90 G2 Mildly decreased 60-89 G3a Mildly to moderately decreased 45-59 G3b Moderately to severely decreased 30-44 G4 Severely decreased 15-29 G5 Kidney Failure <15 Release to patient->Immediate Performed By: #### L AB15 #### [address] [address] [facility] Sodium [Moles/Vol] 138 mmol/L Normal 136-145 [facility] Comment on above: Order Comment: KDIGO 2012 GFR Categories Stage Description eGFR (mL/min/1.73m2) G1 Normal or high >=90 G2 Mildly decreased 60-89 G3a Mildly to moderately decreased 45-59 G3b Moderately to severely decreased 30-44 G4 Severely decreased 15-29 G5 Kidney Failure <15 Release to patient->Immediate Performed By: #### L AB15 #### [facility] [address] [place] [address] [facility] Urea nitrogen [Mass/Vol] 21 mg/dL Normal 7-25 [facility] Comment on above: Order Comment: KDIGO 2012 GFR Categories Stage Description eGFR (mL/min/1.73m2) G1 Normal or high >=90 G2 Mildly decreased 60-89 G3a Mildly to moderately decreased 45-59 G3b Moderately to severely decreased 30-44 G4 Severely decreased 15-29 G5 Kidney Failure <15 Release to patient->Immediate Performed By: #### L AB15 #### [facility] [address] [place] [address] [facility] Basic Metabolic PanelOrdered By: Background Lab on 02-23-2025 Anion gap 4 (S/P/Bld) [Moles/Vol] 7 mmol/L 7 - 16 mmol/L [facility] Calcium (Bld) [Mass/Vol] 9.5 mg/dL 8.6 - 10.2 mg/dL [facility] Chloride (S/P/Bld) [Moles/Vol] 104 mmol/L 98 - 107 mmol/L [facility] CO2 (S/P/Bld) [Moles/Vol] 27 mmol/L 21 - 31 mmol/L [facility] Creatinine [Mass/Vol] 0.93 mg/dL 0.70 - 1.30 mg/dL [facility] GFR Male 89 - PINF [facility] Comment on above: Reported eGFR is bas ed on the CKD-EPI 2020 equation that does not use a race coefficient. Glucose [Mass/Vol] 97 mg/dL 74 - 109 mg/dL [facility] Potassium (S/P/Bld) [Moles/Vol] 3.7 mmol/L 3.5 - 5.1 mmol/L [facility] Sodium (S/P/Bld) [Moles/Vol] 138 mmol/L 136 - 145 mmol/L [facility] Urea nitrogen [Mass/Vol] 21 mg/dL 7 - 25 mg/dL [facility] KDIGO 2012 GFR Categories Stage Description eGFR (mL/min/1.73m2) G1 Normal or high >=90 G2 Mildly decreased 60-89 G3a Mildly to moderately decreased 45-59 G3b Moderately to severely decreased 30-44 G4 Severely decreased 15-29 G5 Kidney Failure <15 [facility] CBC W/DIFFon 02-23-2025 BASOPHILS ABS AUTO 0.1 K/uL Normal 0.0-0.1 [facility] Comment on above: Order Comment: Relea se to patient->Immediate Performed By: #### L [id number] #### [address] Basophils/100 WBC (Bld) 0.7 % Normal [facility] Comment on above: Order Comment: Relea se to patient->Immediate Performed By: #### L [id number] #### [address] Eosinophils (Bld) [#/Vol] 0.2 10*3/uL Normal 0.0-0.4 [facility] Comment on above: Order Comment: Relea se to patient->Immediate Performed By: #### L [id number] #### [address] Eosinophils/100 WBC (Bld) 2.5 % Normal [facility] Comment on above: Order Comment: Relea se to patient->Immediate Performed By: #### L [id number] #### [address] Erythrocyte distribution width (RBC) [Ratio] 14.4 % Normal 11.7-15.2 [facility] Comment on above: Order Comment: Relea se to patient->Immediate Performed By: #### L [id number] #### [address] Hematocrit (Bld) [Volume fraction] 36.2 % Abnormal 39.0-51.5 [facility] Comment on above: Order Comment: Relea se to patient->Immediate Performed By: #### L [id number] #### [address] Hemoglobin (Bld) [Mass/Vol] 12.4 g/dL Abnormal 13.1-17.6 [facility] Comment on above: Order Comment: Relea se to patient->Immediate Performed By: #### L [id number] #### [address] Lymphocytes (Bld) [#/Vol] 1.2 10*3/uL Normal 0.8-3.6 [facility] Comment on above: Order Comment: Relea se to patient->Immediate Performed By: #### L [id number] #### [address] Lymphocytes/100 WBC (Bld) 12.8 % Normal [facility] Comment on above: Order Comment: Relea se to patient->Immediate Performed By: #### L [id number] #### [address] MCH (RBC) [Entitic mass] 30.9 pg Normal 28.4-33.4 [facility] Comment on above: Order Comment: Relea se to patient->Immediate Performed By: #### L [id number] #### [address] MCHC (RBC) [Mass/Vol] 34.2 g/dL Normal 31.1-37.0 [facility] Comment on above: Order Comment: Relea se to patient->Immediate Performed By: #### L [id number] #### [address] MCV (RBC) [Entitic vol] 90.3 fL Normal 85.0-99.0 [facility] Comment on above: Order Comment: Relea se to patient->Immediate Performed By: #### L [id number] #### [address] Monocytes (Bld) [#/Vol] 0.6 10*3/uL Normal 0.3-0.9 [facility] Comment on above: Order Comment: Relea se to patient->Immediate Performed By: #### L [id number] #### [address] Monocytes/100 WBC (Bld) 6.7 % Normal [facility] Comment on above: Order Comment: Relea se to patient->Immediate Performed By: #### L [id number] #### [address] NEUTROPHIL ABS AUTO 7.4 K/uL Abnormal 2.0-7.3 [facility] Comment on above: Order Comment: Relea se to patient->Immediate Performed By: #### L [id number] #### [address] Neutrophils/100 WBC (Bld) 77.3 % Normal [facility] Comment on above: Order Comment: Relea se to patient->Immediate Performed By: #### L [id number] #### [address] Platelets (Bld) [#/Vol] 369 10*3/uL Normal 154-393 [facility] Comment on above: Order Comment: Relea se to patient->Immediate Performed By: #### L [id number] #### [address] RBC (Bld) [#/Vol] 4.01 10*6/uL Abnormal 4.30-5.86 [facility] Comment on above: Order Comment: Relea se to patient->Immediate Performed By: #### L [id number] #### [address] WBC (Bld) [#/Vol] 9.6 10*3/uL Normal 4.0-10.5 [facility] Comment on above: Order Comment: Relea se to patient->Immediate Performed By: #### L [id number] #### [address] CBC w/ Diff-Complete Blood [place] 02-23-2025 Basophils (Bld) [#/Vol] 0.1 10*3/uL 0.0 - 0.1 K/uL [facility] Basophils/100 WBC (Bld) 0.7 % [facility] Eosinophils (Bld) [#/Vol] 0.2 10*3/uL 0.0 - 0.4 K/uL [facility] Eosinophils/100 WBC (Bld) 2.5 % [facility] Erythrocyte distribution width (RBC) [Ratio] 14.4 % 11.7 - 15.2 % [facility] Hematocrit (Bld) [Volume fraction] 36.2 % Abnormal 39.0 - 51.5 % [facility] Hemoglobin (Bld) [Mass/Vol] 12.4 g/dL Abnormal 13.1 - 17.6 g/dL [facility] Interpretation and review of laboratory results Abnormal [facility] Lymphocytes (Bld) [#/Vol] 1.2 10*3/uL 0.8 - 3.6 K/uL [facility] Lymphocytes/100 WBC (Bld) 12.8 % [facility] MCH (RBC) [Entitic mass] 30.9 pg 28.4 - 33.4 pg [facility] MCHC (RBC) [Mass/Vol] 34.2 g/dL 31.1 - 37.0 g/dL [facility] MCV (RBC) [Entitic vol] 90.3 fL 85.0 - 99.0 fl [facility] Monocytes (Bld) [#/Vol] 0.6 10*3/uL 0.3 - 0.9 K/uL [facility] Monocytes/100 WBC (Bld) 6.7 % [facility] Neutrophils (Bld) [#/Vol] 7.4 10*3/uL Abnormal 2.0 - 7.3 K/uL [facility] Neutrophils/100 WBC (Bld) 77.3 % [facility] Platelets (Bld) [#/Vol] 369 10*3/uL 154 - 393 K/uL [facility] RBC (Bld) [#/Vol] 4.01 10*6/uL Abnormal [facility] WBC (Bld) [#/Vol] 9.6 10*3/uL 4.0 - 10.5 K/uL [facility] ED Provider Noteson 02-24-20 ED Provider Notes Encounter Department : [facility] EMERGENCY ED Provider Notes by Go Rice MD at 02/23/2025 4:48 AM Author: JOSE ALEJANDRO Villaltaervice: -Author Type: ED Physician Filed: 02/23/2025 6:07 AMDate of Service: 02/23/2025 4:48 AMStatus: Signed Manager Food: Go Rice MD (ED Physician) FINAL IMPRESSION(S) [...] [facility] He states that he fell twice [...] 157/80 Temp97.7 ?F (36.5 ?C) Pulse60 Resp16 QxD285 % Pqclkp780 lb (72.1 kg) Geno Coma Scale Score15 [...] EKG Standard 12 lead ResultValueRef Range Heart Hhmu17abq RR INTERVAL1,056ms MD Xsogancb635cv QRSD Tresrnmu88nw QT Dowrivkk655gg QTc Ubovrfwl334fo QRS [place]-20deg T Wave Kgyd10avt REPORT- NORMAL ECG - REPORTSinus rhythm Interpreting Phys Confirmed by: Go Rice) 23-Feb-2025 04:31:11 RADIOLOGY I have personally visualized the images and my interpretation is no acute chest abnormality I reviewed the radiologist interpretation: Results for orders placed or performed during the hospital encounter of 02/23/25 [place] [address] [place] [address] 02/23/2025 5:51 AM Reason for exam:leg pain [...] XR-CHEST PORTABLE STAT Narrative XR-CHEST PORTABLE STAT [id number] 02/23/2025 5:04 AM History: chest pain History: Chest Pain; Leg Pain. Number of Series/Images: 1. Comparison: None Findings: Single mobile view of the chest demonstrates normal cardiomediastinal silhouette with midline trachea and clear ry (more content not included)... Normal [facility] EKG STANDARD 12 LEADon 02-23 EKG STANDARD 12 LEAD HEART RATE= 57 bpm RR Interval= 1056 ms P-R Interval= 196 ms QRSD Interval= 80 ms QT Interval= 396 ms QTcB= 385 ms QRS [place]= -20 deg T Wave [place]= 61 deg Report= - NORMAL ECG - Report= Sinus rhythm INTERPRETING PHYS= Confirmed by: Go Rice) 23-Feb-2025 04:31:11 Normal [facility] EKG Standard 12 leadon 02-23 Heart rate 57 /min bpm [facility] Interpreting Phys Confirmed by: Go Adame) 23-Feb-2025 04:31:11 [facility] MD Interval 196 ms [facility] QRS [place] -20 deg [facility] QRSD Interval 80 ms [facility] QT Interval 396 ms [facility] QTc Interval 385 ms [facility] REPORT - NORMAL ECG - [facility] REPORT Sinus rhythm [facility] RR INTERVAL 1056 ms [facility] T Wave [place] 61 deg [facility] HS TROPONIN Ion 02-23-2025 HS TROPONIN I 11 pg/mL Normal <20 [facility] Comment on above: Order Comment: The A ccess high sensitivity troponin assay is not intended to be used in isolation; results should be interpreted in conjunction with other diagnostic tests and clinical information. Is this patient low risk* or onset of CP >3 Hours?->Yes Release to patient->Immediate Performed By: #### L [id number] #### [address] [address] [facility] HS Troponin Ion 02-23-2025 Interpretation and review of laboratory results Normal [facility] Troponin I.cardiac High sensitivity method [Mass/Vol] 11 pg/mL NINF - 20 pg/mL [facility] The Access high sensitivity troponin assay is not intended to be used in isolation; results should be interpreted in conjunction with other diagnostic tests and clinical information. [facility] Portable XR Chest Viewson PULMONARY HYPERINFLA TION WITH NO ACUTE PROCESS SEEN. Workstation ID:[id number] Electronically Signed by: Jun Bro M.D., 02/23/2025 5:05 AM [employer] BANERJEE XR-CHEST PORTABLE ST AT [id number] 02/23/2025 5:04 AM History: chest pain History: Chest Pain; Leg Pain. Number of Series/Images: 1. Comparison: None Findings: Single mobile view of the chest demonstrates normal cardiomediastinal silhouette with midline trachea and clear lung barry bilaterally. Lungs appear somewhat hyperinflated. Jun Armstrong MD - 02/23/2025 XR-CHEST PORTABLE STAT [id number] 02/23/2025 5:04 AM History: chest pain History: Chest Pain; Leg Pain. Number of Series/Images: 1. Comparison: None Findings: Single mobile view of the chest demonstrates normal cardiomediastinal silhouette with midline trachea and clear lung barry bilaterally. Lungs appear somewhat hyperinflated. IMPRESSION: PULMONARY HYPERINFLATION WITH NO ACUTE PROCESS SEEN. Workstation ID:[id number] Electronically Signed by: Jun Bro M.D., 02/23/2025 5:05 AM [facility] Radiology Study observation (narrative) [facility] Portable XR Chest ViewsOrder ed By: Jun Bro on 02-23-2025 [facility] Work Phone: US.doppler Lower extremity v ein - righton 02-23-2025 1. NO EVIDENCE OF DE EP VENOUS THROMBOSIS IN THE RIGHT LOWER EXTREMITY. 2. NO REFLUX WAS DEMONSTRATED. Workstation ID:[id number] Electronically Signed by: Jun Bro M.D., 02/23/2025 5:59 AM [place] [id number] 02/23/2025 5:51 AM Reason for exam:leg pain amd swelling Reason for Exam: leg pain amd swelling. Duplex ultrasound examination of the deep venous system of the right lower extremity including evaluation of the common femoral vein, femoral vein, popliteal vein, posterior tibial veins, and peroneal veins. It demonstrated good compressibility and augmentation without reflux throughout. No luminal thrombus was demonstrated. [facility] Jun Bro MD - 02/23/2025 [place] [id number] 02/23/2025 5:51 AM Reason for exam:leg pain [...] by: Jun Bro M.D., 02/23/2025 5:59 AM [facility] Radiology Study observation (narrative) [facility] VAS-DUP VEIN LOWER DVT RT [id number] 02-23-2025 [place] [id number] A result will not be generated for this exam. [place] [id number] 02/23/2025 5:51 AM Reason for exam:leg pain [...] Jun Bro M.D., 02/23/2025 5:59 AM Normal [facility] XR-CHEST PORTABLE Sachin XR-CHEST PORTABLE STAT A result will not be generated for this exam. XR-CHEST PORTABLE STAT [id number] 02/23/2025 5:04 AM History: chest pain History: Chest Pain; Leg Pain. Number of Series/Images: 1. Comparison: None Findings: Single mobile view of the chest demonstrates normal cardiomediastinal silhouette with midline trachea and clear lung barry bilaterally. Lungs appear somewhat hyperinflated. IMPRESSION: IMPRESSION: PULMONARY HYPERINFLATION WITH NO ACUTE PROCESS SEEN. Workstation ID:[id number] Electronically Signed by: Jun Bro M.D., 02/23/2025 5:05 AM Normal [facility] MRA/MRI BRAIN W/O CONTRASTon 01-28-2025 MRA/MRI BRAIN W/O CONTRAST ORIGINAL EXAMINATION: MRI OF THE BRAIN WITHOUT CONTRAST AND MRA HEAD WITHOUT CONTRAST 01/23/2025 11:35 am TECHNIQUE: Multiplanar multisequence MRI of the brain was performed without the administration of intravenous contrast. MRA of the head was performed utilizing [id number] imaging with MIP images. No intravenous contrast [...] 01/28/2025 5:17:06 AM Ordering Provider: EUGENIO Vickers [facility] MRI KIDNEYon 01-27-2025 MRI KIDNEY ORIGINAL EXAMINATION: [...] 01/27/2025 1:15:03 PM Ordering Provider: EUGENIO MAYEN [facility] CT ABDOMEN/PELVIS W/O REBEL L[place] 01-08-2025 CT [...] 4:19:21 PM Ordering Provider: EUGENIO MAYEN Normal [facility] UAon 01-08-2025 Color (U) Yellow Normal [facility] Comment on above: Order Comment: run c ulture Performed By: #### U A #### [facility] [address] [place] [address] Glucose (U) [Mass/Vol] Negative Normal Negative [facility] Comment on above: Order Comment: run c ulture Performed By: #### U A #### [address] [address] Ketones Ql (U) Negative Normal Negative [facility] Comment on above: Order Comment: run c ulture Performed By: #### U A #### [address] [address] UA Appear Clear Normal Clear [facility] Comment on above: Order Comment: run c ulture Performed By: #### U A #### [address] [address] UA Blood Trace Abnormal Negative [facility] Comment on above: Order Comment: run c ulture Performed By: #### U A #### [place] [address] UA Leuk Est Negative Normal Negative [facility] Comment on above: Order Comment: run c ulture Performed By: #### U A #### [place] [address] UA Nitrite Negative Normal Negative [facility] Comment on above: Order Comment: run c ulture Performed By: #### U A #### [place] [address] UA pH 7.0 Normal 5.0 - 8.0 [facility] Comment on above: Order Comment: run c ulture Performed By: #### U A #### [place] [address] UA Protein Negative Normal Negative [facility] Comment on above: Order Comment: run c ulture Performed By: #### U A #### [address] [address] UA Spec Grav 1.020 Normal 1.015-1.02 5 [facility] Comment on above: Order Comment: run c ulture Performed By: #### U A #### [place] [address] UA Specimen Type Clean Catch Normal [facility] Comment on above: Order Comment: run c ulture Performed By: #### U A #### [facility] [address] [place], [place] [address] UA Urobilinogen 0.2 E.U./dL Normal 0.2-1.0 [facility] Comment on above: Order Comment: run c ulture Performed By: #### U A #### [facility] [address] [place], [place] [address] Urobilinogen (U) [Mass/Vol] Negative Normal Negative [facility] Comment on above: Order Comment: run c ulture Performed By: #### U A #### [place] [address] [place], [place] [address] Bilirubin Test strip Ql (U)O rdered By: Angelina Franks on 01-03-2025 Bilirubin Ql (U) Negative Negative [facility] Emergency Department Summary on 01-03-2025 Emergency Department Summary [facility] Medical Records Department [address] [place] [address] Emergency Department Summary 01/03/25 MR#: [id number] Acct: [id number] Name: WINSTON MARI Rep #: [id number] : 1955 69 From: Angelina PRINCE PCP: Dr. Eugenio Mayen DO Status:REG [...] penile discharge. No fever chills or vomiting. [facility] Medical History Left rotator cuff tear Anemia GERD (gastroesophageal reflux disease) Left shoulder pain Hemorrhoid Epilepsy Sciatica High cholesterol Home Medications ???Medication ???Instructions ???Recorded ???Last Taken ???Type gabapentin 300 mg capsule 300 mg PO 4X/DAY 04/02/22 Unknown History hydrocortisone acetate 25 mg 25 mg MD QHS #12 ea 04/27/22 Unkno wn Rx [...] AdvReac Rash Verified 01/03/25 16:39 hydrocodone (From [place]) AdvReac Upset Verified 01/03/25 16:39 Stomach ibuprofen [...] male has (more content not included)... Normal [facility] Epithelial cells.squamous LM Ql (Urine sed)Ordered By: Angelina Franks on 01-03-2025 Epithelial cells.squamous LM.HPF (Urine sed) [#/Area] 0 /[HPF] 0-5 [facility] Glucose Ql (U)Ordered By: Mariely Franks on 01-03-2025 Urine Glucose (UA) Normal mg/dl Normal [facility] Ketones Test strip Ql (U)Ord ered By: Angelina Franks on 01-03-2025 Ketones Ql (U) Negative Negative [facility] Microscopic analysis of urin e for red blood cells (RBC)Ordered By: Angelina Franks on 01-03-2025 Microscopic analysis of urine for red blood cells (RBC) 0-5 SEEN /hpf 0-5 [facility] Urine RBC 0-5 SEEN /hpf 0-5 [facility] Mucus LM Ql (Urine sed)Order ed By: Angelina Franks on 01-03-2025 Mucus Ql (Urine sed) 1+ /hpf [facility] Nitrite Test strip Ql (U)Ord ered By: Angelina Franks on 01-03-2025 Nitrite Ql (U) Negative Negative [facility] Protein Test strip Ql (U)Ord ered By: Angelina Franks on 01-03-2025 Protein Ql (U) Negative Negative [facility] Squamous epithelial cells de tection in urine sediment by light microscopyOrdered By: Angelina Franks on 01-03-2025 Epithelial cells.squamous LM Ql (Urine sed) 0-5 SEEN /hpf 0-5 [facility] Transitional cells LM Ql (Ur ine sed)Ordered By: Angelina Franks on 01-03-2025 Urine Transitional Epithelial Cells 0-5 SEEN /hpf 0-5 [facility] Transitional cells detection in urine sediment by light microscopyOrdered By: Angelina Franks on 01-03-2025 Transitional cells LM Ql (Urine sed) 0-5 SEEN /hpf 0-5 [facility] Urinalysis, Completeon 01-03 Mucus Ql (Urine sed) 1+ /hpf Normal [facility] Comment on above: Order Comment: ZANDRA CTOR TO SPECIFY Performed By: #### L 400.0001 ####[facility] [address] [facility] [address] BACTERIA 2+ /hpf Normal None Seen [facility] Comment on above: Order Comment: ZANDRA CTOR TO SPECIFY Performed By: #### L 400.0001 ####[facility] [address] [facility] [address] [address] EPI,SQUAMOUS 0-5 SEEN Normal 0-5 [facility] Comment on above: Order Comment: ZANDRA CTOR TO SPECIFY Performed By: #### L 400.0001 ####[facility] [address] [facility] [id number] EPI,TRANSITION 0-5 SEEN Normal 0-5 [facility] Comment on above: Order Comment: ZANDRA CTOR TO SPECIFY Performed By: #### L 400.0001 ####[facility] [address] [place], [address] RBC 0-5 SEEN Normal 0-5 [facility] Comment on above: Order Comment: ZANDRA CTOR TO SPECIFY Performed By: #### L 400.0001 ####[facility] [address] [place], [address] WBC 0 SEEN Normal 0-5 [facility] Comment on above: Order Comment: ZANDRA CTOR TO SPECIFY Performed By: #### L 400.0001 ####[facility] [address] [place], [place], [id number] Urine blood detectionOrdered By: Angelina Franks on 01-03-2025 Urine Occult Blood 25 /ul High Negative [facility] Urine clarityOrdered By: Nolvia Franks on 01-03-2025 Clarity (U) Clear Clear [facility] Urine color determinationOrd ered By: Angelina Franks on 01-03-2025 Color (U) Yellow Yellow [facility] Urine glucose detectionOrder ed By: Angelina Franks on 01-03-2025 Glucose Ql (U) Normal mg/dl Normal [facility] Urine leukocyte esterase det ection by dipstickOrdered By: Angelina Franks on 01-03-2025 Leukocyte esterase Test strip Ql (U) Negative Negative [facility] Urine pHOrdered By: Angelina cain on 01-03-2025 pH (U) 7.0 [pH] 5.0 - 8.0 [facility] Urine sediment bacteria coun t by microscopy (number/high power field)Ordered By: Angelina Franks on 01-03-2025 Bacteria LM.HPF (Urine sed) [#/Area] 2 /[HPF] None Seen [facility] Urine specific gravity measu rementOrdered By: Angelina Franks on 01-03-2025 Specific gravity (U) [Rel density] 1.010 1.002-1.03 0 [facility] Urine urobilinogen measureme ntOrdered By: Angelina Franks on 01-03-2025 Urobilinogen Ql (U) 1 mg/dl High Normal [facility] Urobilinogen Ql (U)Ordered B y: Angelina Franks on 01-03-2025 Urobilinogen (U) [Mass/Vol] 1 mg/dL High Normal [facility] White blood cell countOrdere d By: Angelina Franks on 01-03-2025 Urine WBC 0 SEEN /hpf 0-5 [facility] White blood cell count 0 SEEN /hpf 0-5 [facility] Abdomen/Pelvis without Conto n 01-01-2025 Abdomen/Pelvis without Cont [facility] Imaging Services [address] [place], [place] [address] Abdomen/Pelvis without Cont MR#: [id number] Acct: [id number] Name: WINSTON MARI Rep #: [id number] : 1955 M 69 From: Patricia Del Cid MD PCP: Dr. Eugenio Mayen DO Status: [facility] ER Study: Abdomen/Pelvis without Cont Date of Exam: 12/20 01/13 Exam# [id number] Ordering Dr: Dean Del Cid DO EXAM: [...] Colonic diverticulosis without acute diverticulitis. Reading Location: [facility] CC: Dr. Eugenio Mayen DO; Dr. Dean Del Cid, DO Fashion Coordinator: Signed Normal [facility] Absolute lymphocyte countOrd ered By: Dean Del Cid on 01-01-2025 Lymphocytes Auto (Unsp spec) [#/Vol] 1.67 10*3/uL 0.83-4.51 [facility] Absolute neutrophil countOrd ered By: Dean Del Cid on 01-01-2025 Neutrophils (Bld) [#/Vol] 3.1 10*3/uL 2.0-7.7 [facility] Anion gap in Serum or Plasma Ordered By: Dean Del Cid on 01-01-2025 Anion gap [Moles/Vol] 8 mmol/L 5-15 [facility] Automated lymphocyte count a s percentage of total leukocytesOrdered By: Dean Del Cid on 01-01-2025 Lymphocytes/100 WBC Auto (Unsp spec) 28.4 % 19-41 [facility] BUN/creatinine ratioOrdered By: Dean Del Cid on 01-01-2025 Urea nitrogen/Creatinine [Mass ratio] 22.3 mg/mg High 10- [facility] Basic Metabolic Profile (BMP )on 01-01-2025 BUN/CRE 22.3 RATIO High - [facility] Comment on above: Performed By: #### L 100.0100, L500.2500 ####[facility] [address] [place], [address] Calcium [Mass/Vol] 9.0 mg/dL Normal 7.6-11.0 [facility] Comment on above: Performed By: #### L 100.0100, L500.2500 ####[facility] [address] [place], [address] Chloride [Moles/Vol] 104 mmol/L Normal 98-108 [facility] Comment on above: Performed By: #### L 100.0100, L500.2500 ####[facility] [address] [place], [address] CO2 [Moles/Vol] 25.1 mmol/L Normal 21.0-32.0 [facility] Comment on above: Performed By: #### L 100.0100, L500.2500 ####[facility] [address] [place], [address] Creatinine [Mass/Vol] 0.93 mg/dL Normal 0.70-1.20 [facility] Comment on above: Performed By: #### L 100.0100, L500.2500 ####[facility] [address] [place], [address] ECRCL 77.55 ml/min Normal 50-250 [facility] Comment on above: Performed By: #### L 100.0100, L500.2500 ####[facility] [address] [place], [address] GAP 8 Normal 5-15 [facility] Comment on above: Performed By: #### L 100.0100, L500.2500 ####[facility] [address] [place], [address] GFR/1.73 sq M.predicted among non-blacks MDRD (S/P/Bld) [Vol rate/Area] 90 mL/min/{1.73_m2} Normal >60 [facility] Comment on above: Result Comment: mL/m in/1.73m2 CKD-EPI Creatinine Equation (2020) Performed By: #### L 100.0100, L500.2500 ####[facility] [address] [place], [address] Glucose [Mass/Vol] 95 mg/dL Normal 70-99 [facility] Comment on above: Performed By: #### L 100.0100, L500.2500 ####[facility] [address] [place], [address] Potassium [Moles/Vol] 4.4 mmol/L Normal 3.3-5.1 [facility] Comment on above: Performed By: #### L 100.0100, L500.2500 ####[facility] [address] [place], [address] Sodium [Moles/Vol] 138 mmol/L Normal 133-145 [facility] Comment on above: Performed By: #### L 100.0100, L500.2500 ####[facility] [address] [place], [address] Urea nitrogen [Mass/Vol] 21 mg/dL High 4-19 [facility] Comment on above: Performed By: #### L 100.0100, L500.2500 ####[facility] [address] [place], [address] Basophil percentageOrdered B y: Dean Del Cid on 01-01-2025 Basophils/100 WBC (Bld) 1.2 % High 0-1 [facility] Bilirubin Test strip Ql (U)O rdered By: Dean Del Cid on 01-01-2025 Bilirubin Ql (U) Negative Negative [facility] CBC W/Diff, Automatedon 12-20 Absolute Lymph 1.67 X10 3/uL Normal 0.83-4.51 [facility] Comment on above: Performed By: #### L 100.0100, L500.2500 ####[facility] [address] [place], [address] Absolute Neut 3.1 X10 3/uL Normal 2.0-7.7 [facility] Comment on above: Performed By: #### L 100.0100, L500.2500 ####[facility] [address] [place], [address] Basophils/100 WBC (Bld) 1.2 % High 0-1 [facility] Comment on above: Performed By: #### L 100.0100, L500.2500 ####[facility] [address] [place], [address] Eosinophils/100 WBC (Bld) 5.1 % High 0-5 [facility] Comment on above: Performed By: #### L 100.0100, L500.2500 ####[facility] [address] [place], [address] Erythrocyte distribution width (RBC) [Ratio] 14.3 % Normal 11.6-14.6 [facility] Comment on above: Performed By: #### L 100.0100, L500.2500 ####[facility] [address] [place], [address] Hematocrit (Bld) [Volume fraction] 37.1 % Low 40-54 [facility] Comment on above: Performed By: #### L 100.0100, L500.2500 ####[facility] [address] [place], [address] Hemoglobin (Bld) [Mass/Vol] 12.2 g/dL Low 13.0-16.5 [facility] Comment on above: Performed By: #### L 100.0100, L500.2500 ####[facility] [address] [place], [address] IG% 0.300 Normal 0.0-0.9 [facility] Comment on above: Result Comment: IG% - Immature Granulocytes (promyelocytes, myelocytes and metamyelocytes) > 1% indicates that a LEFT SHIFT is Present. Performed By: #### L 100.0100, L500.2500 ####[facility] [address] [place], [address] Lymphocytes/100 WBC (Bld) 28.4 % Normal 19-41 [facility] Comment on above: Performed By: #### L 100.0100, L500.2500 ####[facility] [address] [place], [address] MCH (RBC) [Entitic mass] 30.0 pg Normal 27.0-32.0 [facility] Comment on above: Performed By: #### L 100.0100, L500.2500 ####[facility] [address] [place], [address] MCHC (RBC) [Mass/Vol] 32.9 g/dL Normal 32-36 [facility] Comment on above: Performed By: #### L 100.0100, L500.2500 ####[facility] [address] [place], [address] MCV (RBC) [Entitic vol] 91.4 fL Normal 80-94 [facility] Comment on above: Performed By: #### L 100.0100, L500.2500 ####[facility] [address] [place], [address] Monocytes/100 WBC (Bld) 11.6 % High 0-10 [facility] Comment on above: Performed By: #### L 100.0100, L500.2500 ####[facility] [address] [place], [address] Neutrophils/100 WBC (Bld) 53.4 % Normal 47-70 [facility] Comment on above: Performed By: #### L 100.0100, L500.2500 ####[facility] [address] [place], [address] Nucleated RBC (Bld) [#/Vol] 0 10*3/uL Normal 0-5 [facility] Comment on above: Performed By: #### L 100.0100, L500.2500 ####[facility] [address] [place], [address] Platelet mean volume (Bld) [Entitic vol] 8.3 fL Normal 6.2-12.0 [facility] Comment on above: Performed By: #### L 100.0100, L500.2500 ####[facility] [address] [place], [address] Platelets (Bld) [#/Vol] 327 10*3/uL Normal 150-450 [facility] Comment on above: Performed By: #### L 100.0100, L500.2500 ####[facility] [address] [place], [address] RBC (Bld) [#/Vol] 4.06 10*6/uL Low 4.6-6.2 [facility] Comment on above: Performed By: #### L 100.0100, L500.2500 ####[facility] [address] [place], [address] RDW SD 48.0 fl High 35.1-43.9 [facility] Comment on above: Performed By: #### L 100.0100, L500.2500 ####[facility] [address] [place], [address] WBC (Bld) [#/Vol] 5.9 10*3/uL Normal 4.4-11.0 [facility] Comment on above: Performed By: #### L 100.0100, L500.2500 ####[facility] [address] [place], [address] Carbon dioxide, total [Moles /volume] in Central venous bloodOrdered By: Dean Del Cid on 01-01-2025 CO2 [Moles/Vol] 25.1 mmol/L 21.0-32.0 [facility] Chloride assayOrdered By: Gilberto Del Cid on 01-01-2025 Chloride [Moles/Vol] 104 mmol/L 98-108 [facility] Emergency Department Summary on 01-01-2025 Emergency Department Summary [facility] Medical Records Department [address] [place] [address] Emergency Department Summary 01/01/25 MR#: [id number] Acct: [id number] Name: WINSTON MARI Rep #: [id number] : 1955 69 From: Dean Ac PCP: [...] History hydrocortisone acetate 25 mg 25 mg MD QHS #12 ea 04/27/22 Unkno wn Rx [...] AdvReac Rash Verified 01/01/25 14:03 hydrocodone (From [place]) AdvReac Upset Verified 01/01/25 14:03 Stomach ibuprofen [...] rebound t (more content not included)... Normal [facility] Eosinophil percentageOrdered By: Dean Del Cid on 01-01-2025 Eosinophils/100 WBC (Bld) 5.1 % High 0-5 [facility] Epithelial cells.squamous LM Ql (Urine sed)Ordered By: Dean Del Cid on 01-01-2025 Epithelial cells.squamous LM.HPF (Urine sed) [#/Area] 0 /[HPF] 0-5 [facility] Erythrocyte distribution wid th ratioOrdered By: Dean Del Cid on 01-01-2025 Erythrocyte distribution width (RBC) [Ratio] 14.3 % 11.6-14.6 [facility] Erythrocyte distribution wid th standard deviationOrdered By: Dean Del Cid on 01-01-2025 Erythrocyte distribution width (RBC) [Entitic vol] 48.0 fL High 35.1-43.9 [facility] Erythrocyte distribution width (RBC) [Ratio] 48.0 fl High 35.1-43.9 [facility] Estimation of creatinine homa aranceOrdered By: Dean Del Cid on 01-01-2025 Estimated Creatinine Clearance Calc 77.55 ml/min 50-250 [facility] [facility] GFR/1.73 sq M.predicted cecilia g non-blacks MDRD (S/P/Bld) [Vol rate/Area]Ordered By: Dean Del Cid on 01-01-2025 Estimated GFR (MDRD) Non-Af Amer 90 >60 [facility] Comment on above: mL/min/1.73m2 CKD-EP I Creatinine Equation (2020) Glomerular filtration rate ( GFR) estimation/1.73 sq m using serum, plasma, or whole bOrdered By: Dean Del Cid on 01-01-2025 GFR/1.73 sq M.predicted among non-blacks MDRD (S/P/Bld) [Vol rate/Area] 90 mL/min/{1.73_m2} >60 [facility] Comment on above: mL/min/1.73m2 CKD-EP I Creatinine Equation (2020) Glucose Ql (U)Ordered By: Gilberto Del Cid on 01-01-2025 Urine Glucose (UA) Normal mg/dl Normal [facility] Hematocrit Auto (Bld) [Volum e fraction]Ordered By: Dean Del Cid on 01-01-2025 Hematocrit (Bld) [Volume fraction] 37.1 % Low 40-54 [facility] Hemoglobin measurementOrdere d By: Dean Del Cid on 01-01-2025 Hemoglobin (Bld) [Mass/Vol] 12.2 g/dL Low 13.0-16.5 [facility] Immature granulocytes/100 WB C Auto (Bld)Ordered By: Dean Del Cid on 01-01-2025 Immature granulocytes/100 WBC (Bld) 0.300 % 0.0-0.9 [facility] Comment on above: IG% - Immature Granu locytes (promyelocytes, myelocytes and metamyelocytes) > 1% indicates that a LEFT SHIFT is Present. Ketones Test strip Ql (U)Ord ered By: Dean Del Cid on 01-01-2025 Ketones Ql (U) Negative Negative [facility] Lymphocytes Auto (Unsp spec) [#/Vol]Ordered By: Dean Del Cid on 01-01-2025 Lymphocytes (Bld) [#/Vol] 1.67 10*3/uL 0.83-4.51 [facility] Lymphocytes/100 WBC Auto (Un sp spec)Ordered By: Dean Del Cid on 01-01-2025 Lymphocytes/100 WBC (Bld) 28.4 % 19-41 [facility] MCV (mean corpuscular volume ) determinationOrdered By: Dean Del Cid on 01-01-2025 MCV (RBC) [Entitic vol] 91.4 fL 80-94 [facility] Mean corpuscular hemoglobin (MCH) determinationOrdered By: Dean Del Cid on 01-01-2025 MCH (RBC) [Entitic mass] 30.0 pg 27.0-32.0 [facility] Mean corpuscular hemoglobin concentration (MCHC) determinationOrdered By: Dean Del Cid on 01-01-2025 MCHC (RBC) [Mass/Vol] 32.9 g/dL 32-36 [facility] Mean platelet volume determi nationOrdered By: Dean Del Cid on 01-01-2025 Platelet mean volume (Bld) [Entitic vol] 8.3 fL 6.2-12.0 [facility] Microscopic analysis of urin e for red blood cells (RBC)Ordered By: Dean Del Cid on 01-01-2025 Microscopic analysis of urine for red blood cells (RBC) 0-5 SEEN /hpf 0-5 [facility] Urine RBC 0-5 SEEN /hpf 0-5 [facility] Monocyte percentageOrdered B y: Dean Del Cid on 01-01-2025 Monocytes/100 WBC (Bld) 11.6 % High 0-10 [facility] Mucus LM Ql (Urine sed)Order ed By: Dean Del Cid on 01-01-2025 Mucus Ql (Urine sed) 0 SEEN /hpf [facility] Neutrophil percentageOrdered By: Dean Del Cid on 01-01-2025 Neutrophils/100 WBC (Bld) 53.4 % 47-70 [facility] Nitrite Test strip Ql (U)Ord ered By: Dean Del Cid on 01-01-2025 Nitrite Ql (U) Negative Negative [facility] Nucleated red blood cell per centageOrdered By: Dean Del Cid on 01-01-2025 Nucleated RBC/100 WBC (Bld) [Ratio] 0 % 0-5 [facility] Platelet countOrdered By: Gilberto Del Cid on 01-01-2025 Platelets (Bld) [#/Vol] 327 10*3/uL 150-450 [facility] Potassium (Unsp spec) [Mass/ Vol]Ordered By: Dean Del Cid on 01-01-2025 Potassium [Moles/Vol] 4.4 mmol/L 3.3-5.1 [facility] Potassium measurement (mass/ volume)Ordered By: Dean Del Cid on 01-01-2025 Potassium (Unsp spec) [Mass/Vol] 4.4 mmol/L 3.3-5.1 [facility] Protein Test strip Ql (U)Ord ered By: Dean Del Cid on 01-01-2025 Protein Ql (U) Negative Negative [facility] RBC Auto (Bld) [#/Vol]Ordere d By: Dean Del Cid on 01-01-2025 RBC (Bld) [#/Vol] 4.06 10*6/uL Low 4.6-6.2 [facility] Serum creatinine measurement (mass/volume)Ordered By: Dean Del Cid on 01-01-2025 Creatinine [Mass/Vol] 0.93 mg/dL 0.70-1.20 [facility] Serum glucose measurement (m ass/volume)Ordered By: Dean Del Cid on 01-01-2025 Glucose [Mass/Vol] 95 mg/dL 70-99 [facility] Serum or plasma calcium doug urement (mass/volume)Ordered By: Dean Del Cid on 01-01-2025 Calcium [Mass/Vol] 9.0 mg/dL 7.6-11.0 [facility] Serum or plasma urea nitroge n measurement (mass/volume)Ordered By: Dean Del Cid on 01-01-2025 Urea nitrogen [Mass/Vol] 21 mg/dL High 4-19 [facility] Sodium levelOrdered By: Dean Del Cid on 01-01-2025 Sodium [Moles/Vol] 138 mmol/L 133-145 [facility] Squamous epithelial cells de tection in urine sediment by light microscopyOrdered By: Dean Del Cid on 01-01-2025 Epithelial cells.squamous LM Ql (Urine sed) 0-5 SEEN /hpf 0-5 [facility] Urinalysis, Completeon 01-01 EPI,SQUAMOUS 0-5 SEEN Normal 0-5 [facility] Comment on above: Order Comment: CLEAN CATCH Performed By: #### L 400.0001 ####[facility] [id number] [place], [address] RBC 0-5 SEEN Normal 0-5 [facility] Comment on above: Order Comment: CLEAN CATCH Performed By: #### L 400.0001 ####[facility] [address] [place], [address] BACTERIA 0 SEEN Normal None Seen [facility] Comment on above: Order Comment: CLEAN CATCH Performed By: #### L 400.0001 ####[facility] [address] [place], [address] Mucus Ql (Urine sed) 0 SEEN Normal [facility] Comment on above: Order Comment: CLEAN CATCH Performed By: #### L 400.0001 ####[facility] [address] [place], [address] WBC 0 SEEN Normal 0-5 [facility] Comment on above: Order Comment: CLEAN CATCH Performed By: #### L 400.0001 ####[facility] [address] [place], [address] Urine blood detectionOrdered By: Dean Del Cid on 01-01-2025 Urine Occult Blood 25 /ul High Negative [facility] Urine clarityOrdered By: Suresh Del Cid on 01-01-2025 Clarity (U) Sl. Cloudy Clear [facility] Urine color determinationOrd ered By: Dean Del Cid on 01-01-2025 Color (U) Yellow Yellow [facility] Urine glucose detectionOrder ed By: Dean Del Cid on 01-01-2025 Glucose Ql (U) Normal mg/dl Normal [facility] Urine leukocyte esterase det ection by dipstickOrdered By: Dean Del Cid on 01-01-2025 Leukocyte esterase Test strip Ql (U) Negative Negative [facility] Urine pHOrdered By: Dean Del Cid on 01-01-2025 pH (U) 6.5 [pH] 5.0 - 8.0 [facility] Urine sediment bacteria coun t by microscopy (number/high power field)Ordered By: Dean Del Cid on 01-01-2025 Bacteria LM.HPF (Urine sed) [#/Area] 0 /[HPF] None Seen [facility] Urine specific gravity measu rementOrdered By: Dean Del Cid on 01-01-2025 Specific gravity (U) [Rel density] 1.010 1.002-1.03 0 [facility] Urine urobilinogen measureme ntOrdered By: Dean Del Cid on 01-01-2025 Urobilinogen Ql (U) Normal mg/dl Normal [facility] Urobilinogen Ql (U)Ordered B y: Dean Del Cid on 01-01-2025 Urine Urobilinogen Normal mg/dl Normal [facility] White blood cell (WBC) count Ordered By: Dean Del Cid on 01-01-2025 WBC (Bld) [#/Vol] 5.9 10*3/uL 4.4-11.0 [facility] White blood cell countOrdere d By: Dean Del Cid on 01-01-2025 Urine WBC 0 SEEN /hpf 0-5 [facility] White blood cell count 0 SEEN /hpf 0-5 [facility] Magnetic resonance imaging r eportOrdered By: Gregg Garcia on 12-22-2024 Study report [facility] Imaging Services [address] [place], [place] [id number] Spine Lumbar (Routine) MR#: [id number] Acct: [id number] Name: WINSTON MAIR Rep #: [id number] : 1955 M 69 From: Sohail Garcia DO PCP: Dr. Eugenio Mayen, Status: REG CLI Study:Spine Lumbar (Routine) Date of Exam: 12/22/24 Exam# [id number] Ordering Dr: Memo Campbell PROCEDURE: MRI SPINE [...] arthropathy with no significant central canal stenosis. Zmes-hq-[id number] left and mild right neural foraminal narrowing [...] likely on a degenerative basis. Reading Location: [facility] CC: NIKI Rock; Dr. Eugenio Mayen DO ~ Fashion Coordinator: Signed [facility] Spine Lumbar (Routine)on Spine Lumbar (Routine) [facility] Imaging Services [address] [place] [address] Spine Lumbar (Routine) MR#: [id number] Acct: [id number] Name: WINSTON MARI Rep #: [id number] : 1955 M 69 From: Gregg Garcia DO PCP: Dr. Eugenio Mayen DO Status: REG CLI Study: Spine Lumbar (Routine) Date of Exam: 12/22/24 Exam# [id number] Ordering Dr: Aiyana Campbell PROCEDURE: MRI SPINE [...] arthropathy with no significant central canal stenosis. [id number] left and mild right neural foraminal narrowing [...] likely on a degenerative basis. Reading Location: [facility] CC: NIKI Rock; Dr. Eugenio Mayen DO Fashion Coordinator: Signed Normal [facility] .Auto Diffon 12-18-2024 Basophil, Absolute 0.1 10 3/mcL Normal 0.0-0.2 [facility] Comment on above: Performed By: #### P SA, VIDH, A1C, CBC, ADIFF, ANEU, FERR, CMP, GFR, LIPID #### [address] [address] Basophils/100 WBC (Bld) 1.0 % Normal 0.0-2.5 [facility] Comment on above: Performed By: #### P SA, VIDH, A1C, CBC, ADIFF, ANEU, FERR, CMP, GFR, LIPID #### [address] [address] Eosinophil, Absolute 0.4 10 3/mcL Normal 0.0-0.7 [facility] Comment on above: Performed By: #### P SA, VIDH, A1C, CBC, ADIFF, ANEU, FERR, CMP, GFR, LIPID #### [address] [address] Eosinophils/100 WBC (Bld) 6.4 % Normal 0.0-7.0 [facility] Comment on above: Performed By: #### P SA, VIDH, A1C, CBC, ADIFF, ANEU, FERR, CMP, GFR, LIPID #### [address] [address] Lymphocyte, Absolute 1.4 10 3/mcL Normal 0.9-4.3 [facility] Comment on above: Performed By: #### P SA, VIDH, A1C, CBC, ADIFF, ANEU, FERR, CMP, GFR, LIPID #### [address] [address] Lymphocytes/100 WBC (Bld) 21.0 % Normal 20.0-40.0 [facility] Comment on above: Performed By: #### P SA, VIDH, A1C, CBC, ADIFF, ANEU, FERR, CMP, GFR, LIPID #### [address] [address] Monocyte, Absolute 0.7 10 3/mcL Normal 0.1-1.4 [facility] Comment on above: Performed By: #### P SA, VIDH, A1C, CBC, ADIFF, ANEU, FERR, CMP, GFR, LIPID #### [address] [address] Monocytes/100 WBC (Bld) 10.5 % Normal 2.0-13.0 [facility] Comment on above: Performed By: #### P SA, VIDH, A1C, CBC, ADIFF, ANEU, FERR, CMP, GFR, LIPID #### [address] [address] Neutrophils/100 WBC (Bld) 61.1 % Normal 50.0-75.0 [facility] Comment on above: Performed By: #### P SA, VIDH, A1C, CBC, ADIFF, ANEU, FERR, CMP, GFR, LIPID #### [address] [address] .GFRon 12-18-2024 Estimated Glomerular Filtration Rate 81 ml/min/1.73sqm Normal [facility] Comment on above: Result Comment: Stages of [...] calculate the eGFR results. Performed By: #### U A #### [address] [address] .NEUABSon 12-18-2024 Neutrophil, Absolute 4.0 10 3/mcL Normal 2.3-8.1 [facility] Comment on above: Performed By: #### P SA, VIDH, A1C, CBC, ADIFF, ANEU, FERR, CMP, GFR, LIPID #### [address] [address] A1Con 12-18-2024 Glucose [Mass/Vol] 114 mg/dL Normal [facility] Comment on above: Result Comment: Josee mated Average Glucose calculated by equation ((28.7xA1C)-46.7) Estimated average glucose (eAG) is a calculated value from Hemoglobin A1C and is territory account representative of the average blood glucose level in the last 2-3 month period. Normal range: less than 114 mg/dL Performed By: #### U A #### [place] [address] HbA1c (Bld) [Mass fraction] 5.6 % Normal 4.3-6.4 [facility] Comment on above: Performed By: #### U A #### [place] [address] CBCon 12-18-2024 Erythrocyte distribution width (RBC) [Ratio] 14.9 % Normal 11.5-15.5 [facility] Comment on above: Performed By: #### P SA, VIDH, A1C, CBC, ADIFF, ANEU, FERR, CMP, GFR, LIPID #### [place] [address] Hematocrit (Bld) [Volume fraction] 36.8 % Low 40.0-52.0 [facility] Comment on above: Performed By: #### P SA, VIDH, A1C, CBC, ADIFF, ANEU, FERR, CMP, GFR, LIPID #### [place] [address] Hgb 12.6 G/dL Low 13.0-17.5 [facility] Comment on above: Performed By: #### P SA, VIDH, A1C, CBC, ADIFF, ANEU, FERR, CMP, GFR, LIPID #### [place] [address] MCH (RBC) [Entitic mass] 30.9 pg Normal 27.0-33.0 [facility] Comment on above: Performed By: #### P SA, VIDH, A1C, CBC, ADIFF, ANEU, FERR, CMP, GFR, LIPID #### [place] [address] MCHC 34.3 G/dL Normal 32.0-36.0 [facility] Comment on above: Performed By: #### P SA, VIDH, A1C, CBC, ADIFF, ANEU, FERR, CMP, GFR, LIPID #### [address] [address] MCV (RBC) [Entitic vol] 89.9 fL Normal 81.0-100.0 [facility] Comment on above: Performed By: #### P SA, VIDH, A1C, CBC, ADIFF, ANEU, FERR, CMP, GFR, LIPID #### [address] [address] Platelet 390 10 3/mcL Normal 150-450 [facility] Comment on above: Performed By: #### P SA, VIDH, A1C, CBC, ADIFF, ANEU, FERR, CMP, GFR, LIPID #### [address] [address] Platelet mean volume (Bld) [Entitic vol] 6.9 fL Normal 6.4-10.5 [facility] Comment on above: Performed By: #### P SA, VIDH, A1C, CBC, ADIFF, ANEU, FERR, CMP, GFR, LIPID #### [address] [address] RBC 4.09 10 6/mcL Low 4.50-6.00 [facility] Comment on above: Performed By: #### P SA, VIDH, A1C, CBC, ADIFF, ANEU, FERR, CMP, GFR, LIPID #### [address] [address] WBC 6.6 10 3/mcL Normal 4.5-10.8 [facility] Comment on above: Performed By: #### P SA, VIDH, A1C, CBC, ADIFF, ANEU, FERR, CMP, GFR, LIPID #### [address] [address] CMPon 12-18-2024 Albumin Level 3.8 G/dL Normal 3.4-4.8 [facility] Comment on above: Performed By: #### U A #### [address] [address] Albumin/Globulin [Mass ratio] 1.2 {ratio} Normal 1.1-2.5 [facility] Comment on above: Performed By: #### U A #### [address] [address] ALP [Catalytic activity/Vol] 95 U/L Normal 40-135 [facility] Comment on above: Performed By: #### U A #### [address] [address] ALT [Catalytic activity/Vol] 22 U/L Normal 16-63 [facility] Comment on above: Performed By: #### U A #### [address] [address] AST [Catalytic activity/Vol] 20 U/L Normal 10-40 [facility] Comment on above: Performed By: #### U A #### [address] [address] Bili Total 0.3 mg/dL Normal 0.2-1.0 [facility] Comment on above: Result Comment: Use of this assay is not recommended for patients undergoing treatment with eltrombopag due to the potential for falsely elevated results. Performed By: #### U A #### [address] [address] BUN/Creatinine Ratio 23 ratio Normal 7-27 [facility] Comment on above: Performed By: #### U A #### [address] [address] Calcium [Mass/Vol] 9.0 mg/dL Normal 8.4-10.2 [facility] Comment on above: Performed By: #### U A #### [address] [address] Chloride [Moles/Vol] 104 mmol/L Normal 98-107 [facility] Comment on above: Performed By: #### U A #### [address] [address] CO2 [Moles/Vol] 26 mmol/L Normal 23-31 [facility] Comment on above: Performed By: #### U A #### [address] [address] Creatinine [Mass/Vol] 1.01 mg/dL Normal 0.70-1.30 [facility] Comment on above: Result Comment: Test ing performed on Siemens Dimension EXL analyzer using a modified kinetic Polly technique. Performed By: #### U A #### [address] [address] Electrolyte Balance 9.0 mEq/L Normal 4.0-15.0 [facility] Comment on above: Performed By: #### U A #### [address] [address] Globulin 3.2 G/dL Normal 1.5-3.8 [facility] Comment on above: Performed By: #### U A #### [address] [address] Glucose [Mass/Vol] 83 mg/dL Normal 80-115 [facility] Comment on above: Performed By: #### U A #### [address] [address] Potassium [Moles/Vol] 4.6 mmol/L Normal 3.5-5.1 [facility] Comment on above: Performed By: #### U A #### [address] [address] Sodium [Moles/Vol] 139 mmol/L Normal 136-145 [facility] Comment on above: Performed By: #### U A #### [address] [address] Total Protein 7.0 G/dL Normal 6.4-8.2 [facility] Comment on above: Performed By: #### U A #### [address] [address] Urea nitrogen [Mass/Vol] 23 mg/dL High 7-18 [facility] Comment on above: Performed By: #### U A #### [address] [address] Sina 12-18-2024 Ferritin [Mass/Vol] 68.0 ng/mL Normal 26.0-388.0 [facility] Comment on above: Performed By: #### U A #### [address] [address] LIPIDon 12-18-2024 Cholesterol [Mass/Vol] 136 mg/dL Normal 0-200 [facility] Comment on above: Result Comment: Chol esterol Reference Interval: Less than 200 Desirable 200-239 Borderline high risk 240 and above High risk Performed By: #### U A #### [address] [address] Cholesterol in HDL [Mass/Vol] 38 mg/dL Low 40-60 [facility] Comment on above: Performed By: #### U A #### [place] [id number] Cholesterol in LDL [Mass/Vol] 84 mg/dL Normal 0-130 [facility] Comment on above: Performed By: #### U A #### [place] [id number] Triglyceride [Mass/Vol] 72 mg/dL Normal 0-150 [facility] Comment on above: Result Comment: Trig lyceride Reference Interval: Less than 150 Normal 150-199 Borderline high risk 200-499 High risk 500 or higher Very high risk Performed By: #### U A #### [address] [address] PSAon 12-18-2024 Prostate Specific Antigen 1.51 ng/mL Normal 0.00-4.00 [facility] Comment on above: Performed By: #### U A #### [address] [address] VIDHon 12-18-2024 Vit. D 25-Hydroxy 31.7 ng/mL Normal [facility] Comment on above: Result Comment: Inte rpretive Values Based on Total 25(OH) Vitamin D: Deficient <20 ng/mL Insufficient 20 - <30 ng/mL Sufficient 30-100 ng/mL Performed By: #### U A #### [address] [address] Orthopedic Visit Reporton Orthopedic Visit Report [facility] [address] [place] [address] OFFICE VISIT Date of Service: 12/15/24 MR#: [id number] Acct: [id number] Name: WINSTON MARI Rep #: [id number] : 1955 Provider: Dr. Jacob mckeon MD Age/Sex: 69/M Location: [email or web address] Status: Signed Intake Vital Signs 11/25/24 10:50 Height 5 ft 11 in Intake Visit Reasons: LEFT SHOULDER Public Information Coordinator Required: No Accompanied by: Self Is patient in pain?: Yes (left shoulder) Pain scale (1-10): 8 Allergies adhesive tape (tape) Adverse Reaction (Verified 12/15/24 10:54) Rash hydrocodone (From [place]) Adverse Reaction (Verified 12/15/24 10:54) Upset Stomach [...] History hydrocortisone acetate 25 mg 25 mg MD QHS #12 ea 04/27/2212/15 Rx rectal suppository [...] by me, Dr. Jacob Dominguez MD 12/15/24 0928. Part of today???s visit was documented by [ ], acting as scribe. WINSTON MARI is a 69 year old M here today for left shoulder pain. Follow-up MRI to assess for cuff tear. Patient is still waiting on an MRI of the lumbar spine for compression fracture. Supplemental Info [facility] Imaging Services [address] [place] [address] Upper Ext Joint Only(Routine) MR#: [id number] Acct: [id number] Name: WINSTON MARI Rep #: [id number] : 1955 M 69 From: Doug Coats DO PCP: Dr. Eugenio Mayen DO Status: REG CLI Study: Upper Ext Joint Only(Routine) Date of Exam: 12/08/24 Exam# [id number] Ordering Dr: Jacob Dominguez MD PROCEDURE: MRI [...] Small gleno (more content not included)... Normal [facility] Upper Ext Joint Only(Routine )on 12-08-2024 Upper Ext Joint Only(Routine) [facility] Imaging Services [address] [place] [id number] Upper Ext Joint Only(Routine) MR#: [id number] Acct: [id number] Name: WINSTON MARI Rep #: [id number] : 1955 M 69 From: Doug Asher PCP: Dr. Eugenio Mayen, Status: REG CLI Study: Upper Ext Joint Only(Routine) Date of Exam: 0 12/08/24 Exam# [id number] Ordering Dr: Jacob Dominguez MD PROCEDURE: MRI [...] Eugenio Mayen DO; Dr. Jacob Dominguez MD Fashion Coordinator: Signed Normal [facility] Brain/Head without Contrasto n 11-25-2024 Brain/Head without Contrast [facility] Imaging Services [address] [place] [address] Brain/Head without Contrast MR#: [id number] Acct: [id number] Name: WINSTON MARI Rep #: [id number] : 1955 M 69 From: Patricia Del Cid MD PCP: Dr. Eugenio Mayen DO Status: REG ER Study: Brain/Head without Contrast Date of Exam: 02/13 Exam# [id number] Ordering Dr: Abril Velarde DO EXAM: CT [...] evaluation with MRI is recommended. Reading Location: [facility] CC: Dr. Eugenio Mayen DO; Dr. Abril Velarde DO Fashion Coordinator: Signed Normal [facility] Emergency Department Summary on 11-25-2024 Emergency Department Summary [facility] Medical Records Department [address] [place] [address] Emergency Department Summary 11/25/24 MR#: [id number] Acct: [id number] Name: WINSTON MARI Rep #: [id number] : 1955 69 From: Abril Velarde DO [...] pain relief. He has had no vomiting. [facility] Medical History Anemia GERD (gastroesophageal reflux disease) Left shoulder pain Hemorrhoid Epilepsy Sciatica High cholesterol Home Medications ???Medication ???Instructions ???Recorded ???Last Taken ???Type gabapentin 300 mg capsule 300 mg PO 4X/DAY 04/02/22 Unknown History hydrocortisone acetate 25 mg 25 mg MD QHS #12 ea 04/27/22 Unkno wn Rx [...] AdvReac Rash Verified 11/25/24 10:50 hydrocodone (From [place]) AdvReac Upset Verified 11/25/24 10:50 Stomach ibuprofen [...] polydipsia, polyp (more content not included)... Normal [facility] Shoulder min 2 Viewson 11-25 Shoulder min 2 Views [facility] Imaging Services [address] [place] [address] Shoulder min 2 Views MR#: [id number] Acct: [id number] Name: WINSTON MARI Rep #: [id number] : 1955 M 69 From: Patricia Del Cid MD PCP: Dr. Eugenio Mayen, DO Status: REG ER Study: Shoulder min 2 Views Date of Exam: 11/25/24 Exam# [id number] Ordering Dr: Abril Velarde DO EXAM: XR Left Shoulder Complete, 2 or More Views CLINICAL INDICATION: TECHNIQUE: Two or more views of the left shoulder. COMPARISON: No relevant prior studies available. FINDINGS: BONES/JOINTS: Unremarkable. No acute fracture. No dislocation. SOFT TISSUES: Unremarkable. RAD/Shoulder min 2 Views IMPRESSION: No acute fracture. Reading Location: [facility] CC: Dr. Eugenio Mayen DO; Dr. Abril Velarde DO Fashion Coordinator: Signed Normal [facility] Spine Cervical without Contr ason 11-25-2024 Spine Cervical without Contras [facility] Imaging Services [address] [place] [id number] Spine Cervical without Contras MR#: [id number] Acct: [id number] Name: WINSTON MARI Rep #: [id number] : 1955 M 69 From: Patricia Del Cid MD PCP: Dr. Eugenio Mayen DO Status: REG ER Study: Spine Cervical without Contras Date of Exam: 0 11/25/24 Exam# [id number] Ordering Dr: Abril Velarde DO EXAM: CT [...] the cervical spine as described. Reading Location: [facility] CC: Dr. Eugenio Mayen DO; Dr. Abril Velarde DO Fashion Coordinator: Signed Normal [facility] Lumbar Spine 2 or 3 Viewson 11-18-2024 Lumbar Spine 2 or 3 Views [facility] Imaging Services [address] [place] [address] Lumbar Spine 2 or 3 Views MR#: [id number] Acct: [id number] Name: WINSTON MARI Rep #: [id number] : 1955 M 69 From: Will Padron DO PCP: Dr. Eugenio Mayen DO Status: DEP AMB Study: Lumbar Spine 2 or 3 Views Date of Exam: Exam# [id number] Ordering Dr: Aiyana Campbell PROCEDURE: LUMBAR SPINE [...] ileus or developing bowel obstruction. Reading Location: [facility] CC: NIKI Rock; Dr. Eugenio Mayen DO Fashion Coordinator: Signed Normal [facility] Orthopedic Visit Reporton Orthopedic Visit Report [facility] [address] [place] [address] [address] [place] [address] OFFICE VISIT Date of Service: 11/18/24 MR#: [id number] Acct: [id number] Name: WINSTON MARI Rep #: [id number] : 1955 Provider: NIKI Rock Age/Sex: 69/M Location: [facility] Status: Signed Intake Vital Signs 11/05/24 14:16 11/12/24 12:16 Height 5 ft 11 in 5 ft 11 in Intake Visit Reasons: LUMBAR SPINE Allergies adhesive tape (tape) Adverse Reaction (Verified 11/18/24 13:30) Rash hydrocodone (From [place]) Adverse Reaction (Verified 11/18/24 13:30) Upset Stomach [...] History hydrocortisone acetate 25 mg 25 mg MD QHS #12 ea 04/27/22 11/18/24 Rx rectal [...] you fallen in the past year?: Yes [facility] Medical History Anemia GERD (gastroesophageal reflux [...] decisions made by me, NIKI Rock 11/18/24 1190. Part of today???s visit was documented by Araseli POPE, acting as scribe. WINSTON MARI is a 69 year old M here today for ED f/u on low back pain. He states that in 2022 he fell off a roof about 30ft and fractured L2 and L4 and was sent to [facility] for 3-4 days. He was then recommended to have a kyphoplasty but he refused it because of the chance of it leaking out and getting into his bloodstream. He then had a recent fall when he fell off a 10ft ladder trying to fix a light on a [place] go round and fractured L1. He was [...] seen pain management in the past at [facility]. Worsening pain over the last week [...] M51.362 Disc-relate (more content not included)... Normal [facility] Orthopedic Visit Reporton Orthopedic Visit Report [facility] [address] [place] [address] OFFICE VISIT Date of Service: 11/13/24 MR#: [id number] Acct: [id number] Name: WINSTON MARI Rep #: [id number] : 1955 Provider: Dr. Jacob mckeon MD Age/Sex: 69/M Location: [facility] Status: Signed Intake Vital Signs 11/05/24 14:16 11/12/24 12:16 Height 5 ft 11 in 5 ft 11 in Weight: 161 lb BMI 22.4 Intake Visit Reasons: LEFT SHOULDER Accompanied by: Self Is patient in pain?: Yes (left arm and low back) Pain scale (1-10): 9 Allergies adhesive tape (tape) Adverse Reaction (Verified 11/13/24 14:08) Rash hydrocodone (From [place]) Adverse Reaction (Verified 11/13/24 14:08) Upset Stomach [...] This started about a year ago. Patient qctzf-ihyj-txblgkvk. He fell off a ladder as well over the last week and feels like he can barely lift up his arm. He works in the [employer] quite a bit this summer his nephew on some [employer] games has to maintain those follow-up for [...] had surgery on her shoulder. Supplemental Info [facility] Imaging Services [address] [place] [address] Shoulder min 2 Views MR#: [id number] Acct: [id number] Name: WINSTON MARI Rep #: [id number] : 1955 M 69 From: Richard Cortez DO PCP: Dr. Eugenio Mayen DO Status: REG ER Study: Shoulder min 2 Views Date of Exam: 11/05/24 Exam# [id number] Ordering Dr: Dennis Strickland DO [id number] INDICATION: fall pain EXAMINATION/TECHNIQUE: X-RAY - LEFT [...] 17:00 EST Reading Location ID and State: [address] [place] [address] Tel [phone], Service support , [facility] Imaging Services [address] [place], [place] [address] Humerus min 2 Views MR#: [id number] Acct: [id number] Name: WINSTON MARI Rep #: [id number] : 1955 M 69 From: Richard Cortez DO PCP: Dr. Eugenio Mayen DO Status: REG ER Study: Humerus min 2 Views Date of Exam: 11/05/24 Exam# [id number] Ordering Dr: Dennis Strickland DO [id number] INDICATION: fall, pain EXAMINATION/TECHNIQUE (more content not included)... Normal [facility] Absolute neutrophil countOrd ered By: Dennis Strickland on 11-05-2024 Neutrophils (Bld) [#/Vol] 5.8 10*3/uL 2.0-7.7 [facility] Bacteria LM.HPF (Urine sed) [#/Area]Ordered By: Dennis Strickland on 01-15-2025 Urine Bacteria RARE /hpf None Seen [facility] Basic Metabolic Profile (BMP )on 11-05-2024 BUN/CRE 11.9 RATIO Normal 10-20 [facility] Comment on above: Performed By: #### L 500.2500, L500.3400 #### [facility] Laboratory [address] [place], [address] CA,Total 8.4 mg/dL Low 8.5-10.1 [facility] Comment on above: Performed By: #### L 500.2500, L500.3400 #### [facility] Laboratory [address] [place], [address] Chloride [Moles/Vol] 107 mmol/L Normal 98-107 [facility] Comment on above: Performed By: #### L 500.2500, L500.3400 #### [facility] Laboratory [address] [place], [address] CO2 [Moles/Vol] 27.0 mmol/L Normal 21.0-32.0 [facility] Comment on above: Performed By: #### L 500.2500, L500.3400 #### [facility] Laboratory [address] [place], [address] Creatinine [Mass/Vol] 1.01 mg/dL Normal 0.70-1.30 [facility] Comment on above: Result Comment: The validity of the calculated GFR GFRAA in patients over 70 years has not been determined. Clinical correlation is essential. Performed By: #### L 500.2500, L500.3400 #### [facility] Laboratory [address] [place], [address] ECRCL 70.59 ml/min Normal [facility] Comment on above: Performed By: #### L 500.2500, L500.3400 #### [facility] Laboratory [address] [place], [address] EST GFR - AA 94 mL/min Normal >60 [facility] Comment on above: Result Comment: Afri can Marshallese GFR Calc Performed By: #### L 500.2500, L500.3400 #### [facility] Laboratory [address] [place], [address] GAP 6 Normal 5-15 [facility] Comment on above: Performed By: #### L 500.2500, L500.3400 #### [facility] Laboratory [address] [place], [address] GFR/1.73 sq M.predicted among non-blacks MDRD (S/P/Bld) [Vol rate/Area] 78 mL/min/{1.73_m2} Normal >60 [facility] Comment on above: Result Comment: Non- GFR Calc Performed By: #### L 500.2500, L500.3400 #### [facility] Laboratory [address] [place], [address] Glucose [Mass/Vol] 80 mg/dL Normal 74-106 [facility] Comment on above: Performed By: #### L 500.2500, L500.3400 #### [facility] Laboratory [address] [place], [address] Potassium [Moles/Vol] 3.6 mmol/L Normal 3.5-5.1 [facility] Comment on above: Performed By: #### L 500.2500, L500.3400 #### [facility] Laboratory [address] [place], [address] Sodium [Moles/Vol] 140 mmol/L Normal 136-145 [facility] Comment on above: Performed By: #### L 500.2500, L500.3400 #### [facility] Laboratory [address] [place], [address] Urea nitrogen [Mass/Vol] 12 mg/dL Normal 7-18 [facility] Comment on above: Performed By: #### L 500.2500, L500.3400 #### [facility] Laboratory [address] [place], [address] BUN Normal 7-18 [facility] Comment on above: Result Comment: This specimen has been REJECTED due to Laboratory criteria: Hemolyzed. STANLEY has been notified of need of recollection. 11/05/24 1548 Heather Lollo Performed By: #### L 100.0100, L500.3400, L500.2500 #### [facility] Laboratory [address] [place], [address] BUN/CRE Normal 10-20 [facility] Comment on above: Result Comment: This specimen has been REJECTED due to Laboratory criteria: Hemolyzed. STANLEY has been notified of need of recollection. 11/05/24 1548 Heather Lollo Performed By: #### L 100.0100, L500.3400, L500.2500 #### [facility] Laboratory [address] [place], [address] CA,Total Normal 8.5-10.1 [facility] Comment on above: Result Comment: This specimen has been REJECTED due to Laboratory criteria: Hemolyzed. STANLEY has been notified of need of recollection. 11/05/24 1548 Heather Lollo Performed By: #### L 100.0100, L500.3400, L500.2500 #### [facility] Laboratory [address] [place], [address] CL Normal 98-107 [facility] Comment on above: Result Comment: This specimen has been REJECTED due to Laboratory criteria: Hemolyzed. STANLEY has been notified of need of recollection. 11/05/24 1548 Heather Lollo Performed By: #### L 100.0100, L500.3400, L500.2500 #### [facility] Laboratory [address] [place], [address] CO2 Normal 21.0-32.0 [facility] Comment on above: Result Comment: This specimen has been REJECTED due to Laboratory criteria: Hemolyzed. STANLEY has been notified of need of recollection. 11/05/24 1548 Heather Lollo Performed By: #### L 100.0100, L500.3400, L500.2500 #### [facility] Laboratory [address] [place], [address] CREAT,SERUM Normal 0.70-1.30 [facility] Comment on above: Result Comment: This specimen has been REJECTED due to Laboratory criteria: Hemolyzed. STANLEY has been notified of need of recollection. 11/05/24 1548 Heather Lollo Performed By: #### L 100.0100, L500.3400, L500.2500 #### [facility] Laboratory [address] [place], [address] EST GFR Normal >60 [facility] Comment on above: Result Comment: This specimen has been REJECTED due to Laboratory criteria: Hemolyzed. STANLEY has been notified of need of recollection. 11/05/24 1548 Heather Lollo Performed By: #### L 100.0100, L500.3400, L500.2500 #### [facility] Laboratory [address] [place], [address] EST GFR - AA Normal >60 [facility] Comment on above: Result Comment: This specimen has been REJECTED due to Laboratory criteria: Hemolyzed. STANLEY has been notified of need of recollection. 11/05/24 1548 Heather Lollo Performed By: #### L 100.0100, L500.3400, L500.2500 #### [facility] Laboratory [address] [place], [address] GAP Normal 5-15 [facility] Comment on above: Result Comment: This specimen has been REJECTED due to Laboratory criteria: Hemolyzed. STANLEY has been notified of need of recollection. 11/05/24 1548 Heather Lollo Performed By: #### L 100.0100, L500.3400, L500.2500 #### [facility] Laboratory [address] [place], [address] GLU Normal 74-106 [facility] Comment on above: Result Comment: This specimen has been REJECTED due to Laboratory criteria: Hemolyzed. STANLEY has been notified of need of recollection. 11/05/24 1548 Heather Lollo Performed By: #### L 100.0100, L500.3400, L500.2500 #### [facility] Laboratory [address] [place], [address] Potassium Normal 3.5-5.1 [facility] Comment on above: Result Comment: This specimen has been REJECTED due to Laboratory criteria: Hemolyzed. STANLEY has been notified of need of recollection. 11/05/24 1548 Heather Lollo Performed By: #### L 100.0100, L500.3400, L500.2500 #### [facility] Laboratory [address] [place], [address] Basic Metabolic Profile (BMP) Normal 136-145 [facility] Comment on above: Result Comment: This specimen has been REJECTED due to Laboratory criteria: Hemolyzed. STANLEY has been notified of need of recollection. 11/05/24 1548 Heather Lollo Performed By: #### L 100.0100, L500.3400, L500.2500 #### [facility] Laboratory [address] [place], [address] Basophil percentageOrdered B y: Dennis Strickland on 11-05-2024 Basophils/100 WBC (Bld) 0.7 % 0-1 [facility] Bilirubin Test strip Ql (U)O rdered By: Dennis Strickland on 11-05-2024 Bilirubin Ql (U) Negative Negative [facility] Bilirubin directOrdered By: Dennis Strickland on 11-05-2024 Bilirubin.direct [Mass/Vol] 0.21 mg/dL 0.00-0.30 [facility] Bilirubin, totalOrdered By: Dennis Strickland on 11-05-2024 Bilirubin [Mass/Vol] 1.00 mg/dL 0.20-1.00 [facility] Comment on above: For patients on eltr ombopag therapy, use of Dimension [place] TBIL is not recommended. Blood urea nitrogen (BUN)/cr eatinine ratioOrdered By: Dennis Strickland on 11-05-2024 Urea nitrogen/Creatinine [Mass ratio] 11.9 mg/mg 10- [facility] Brain/Head without Contrasto n 11-05-2024 Brain/Head without Contrast [facility] Imaging Services [address] [place] [address] Brain/Head without Contrast MR#: [id number] Acct: [id number] Name: WINSTON MARI Rep #: [id number] : 1955 M 69 From: Sorin galindo MD PCP: Dr. Eugenio Mayen DO Status: REG ER Study: Brain/Head without Contrast Date of Exam: 10/22 03/15 Exam# [id number] Ordering Dr: Dennis Strickland DO [id number] STUDY: CT BRAIN WITHOUT CONTRAST REASON FOR [...] Eugenio Mayen, DO; Dr. Dennis Strickland, DO Fashion Coordinator: Signed Normal [facility] CBC W/Diff, Automatedon 10-22 Absolute Lymph 1.68 X10 3/uL Normal 0.83-4.51 [facility] Comment on above: Performed By: #### L 100.0100, L500.3400, L500.2500 #### [facility] Laboratory [address] [place], [address] Absolute Neut 5.8 X10 3/uL Normal 2.0-7.7 [facility] Comment on above: Performed By: #### L 100.0100, L500.3400, L500.2500 #### [facility] Laboratory [address] [place], [address] Basophils/100 WBC (Bld) 0.7 % Normal 0-1 [facility] Comment on above: Performed By: #### L 100.0100, L500.3400, L500.2500 #### [facility] Laboratory [address] [place], [address] Eosinophils/100 WBC (Bld) 3.3 % Normal 0-5 [facility] Comment on above: Performed By: #### L 100.0100, L500.3400, L500.2500 #### [facility] Laboratory [address] [place], [address] Erythrocyte distribution width (RBC) [Ratio] 13.8 % Normal 11.6-14.6 [facility] Comment on above: Performed By: #### L 100.0100, L500.3400, L500.2500 #### [facility] Laboratory [address] [place], [address] Hematocrit (Bld) [Volume fraction] 39.3 % Low 40-54 [facility] Comment on above: Performed By: #### L 100.0100, L500.3400, L500.2500 #### [facility] Laboratory [address] [place], [address] Hemoglobin (Bld) [Mass/Vol] 13.1 g/dL Normal 13.0-16.5 [facility] Comment on above: Performed By: #### L 100.0100, L500.3400, L500.2500 #### [facility] Laboratory [address] [place], [address] IG% 0.200 Normal 0.0-0.9 [facility] Comment on above: Result Comment: IG% - Immature Granulocytes (promyelocytes, myelocytes and metamyelocytes) > 1% indicates that a LEFT SHIFT is Present. Performed By: #### L 100.0100, L500.3400, L500.2500 #### [facility] Laboratory [address] [place], [address] Lymphocytes/100 WBC (Bld) 19.6 % Normal 19-41 [facility] Comment on above: Performed By: #### L 100.0100, L500.3400, L500.2500 #### [facility] Laboratory [address] [place], [address] MCH (RBC) [Entitic mass] 30.1 pg Normal 27.0-32.0 [facility] Comment on above: Performed By: #### L 100.0100, L500.3400, L500.2500 #### [facility] Laboratory [address] [place], [address] MCHC (RBC) [Mass/Vol] 33.3 g/dL Normal 32-36 [facility] Comment on above: Performed By: #### L 100.0100, L500.3400, L500.2500 #### [facility] Laboratory [address] [place], [address] MCV (RBC) [Entitic vol] 90.3 fL Normal 80-94 [facility] Comment on above: Performed By: #### L 100.0100, L500.3400, L500.2500 #### [facility] Laboratory [address] [place], [address] Monocytes/100 WBC (Bld) 8.7 % Normal 0-10 [facility] Comment on above: Performed By: #### L 100.0100, L500.3400, L500.2500 #### [facility] Laboratory [address] [place], [address] Neutrophils/100 WBC (Bld) 67.5 % Normal 47-70 [facility] Comment on above: Performed By: #### L 100.0100, L500.3400, L500.2500 #### [facility] Laboratory [address] [place], [address] Nucleated RBC (Bld) [#/Vol] 0 10*3/uL Normal 0-5 [facility] Comment on above: Performed By: #### L 100.0100, L500.3400, L500.2500 #### [facility] Laboratory [address] [place], [address] Platelet mean volume (Bld) [Entitic vol] 8.7 fL Normal 6.2-12.0 [facility] Comment on above: Performed By: #### L 100.0100, L500.3400, L500.2500 #### [facility] Laboratory [address] [place], [address] Platelets (Bld) [#/Vol] 386 10*3/uL Normal 150-450 [facility] Comment on above: Performed By: #### L 100.0100, L500.3400, L500.2500 #### [facility] Laboratory [address] [place], [address] RBC (Bld) [#/Vol] 4.35 10*6/uL Low 4.6-6.2 [facility] Comment on above: Performed By: #### L 100.0100, L500.3400, L500.2500 #### [facility] Laboratory [address] [place], [address] RDW SD 45.1 fl High 35.1-43.9 [facility] Comment on above: Performed By: #### L 100.0100, L500.3400, L500.2500 #### [facility] Laboratory [address] [place], [address] WBC (Bld) [#/Vol] 8.6 10*3/uL Normal 4.4-11.0 [facility] Comment on above: Performed By: #### L 100.0100, L500.3400, L500.2500 #### [facility] Laboratory [address] [place], [address] CT Chest, Abd, Pel w/Contras ton 11-05-2024 CT Chest, Abd, Pel w/Contrast [facility] Imaging Services [address] [place] [address] CT Chest, Abd, Pel w/Contrast MR#: [id number] Acct: [id number] Name: WINSTON MARI Paul Rep #: [id number] : 1955 M 69 From: Sorin galindo MD PCP: Dr. Eugenio Mayen DO Status: [facility] ER Study: CT Chest, Abd, Pel w/Contrast Date of Exam: Exam# [id number] Ordering Dr: Dennis Strickland DO [id number] STUDY: CT CHEST, ABDOMEN T PELVIS WITH [...] Eugenio Mayen DO; Dr. Dennis Strickland DO Fashion Coordinator: Signed Normal [facility] Carbon dioxide measurementOr dered By: Dennis Strickland on 11-05-2024 CO2 [Moles/Vol] 27.0 mmol/L 21.0-32.0 [facility] Chloride measurementOrdered By: Dennis Strickland on 11-05-2024 Chloride [Moles/Vol] 107 mmol/L 98-107 [facility] Elbow min 3 Viewson 11-05-19 Elbow min 3 Views [facility] Imaging Services [address] [place] [address] Elbow min 3 Views MR#: [id number] Acct: [id number] Name: WINSTON MARI Rep #: [id number] : 1955 M 69 From: Richard Cortez DO PCP: Dr. Eugenio Mayen DO Status: REG ER Study: Elbow min 3 Views Date of Exam: 11/05/24 Exam# [id number] Ordering Dr: Dennis Strickland DO [id number] INDICATION: fall, pain EXAMINATION/TECHNIQUE: X-RAY - LEFT [...] Eugenio Mayen DO; Dr. Dennis Strickland DO Fashion Coordinator: Signed Normal [facility] Emergency Department Summary on 11-05-2024 Emergency Department Summary [facility] Medical Records Department [address] [place] [address] Emergency Department Summary 11/05/24 MR#: [id number] Acct: [id number] Name: WINSTON MARI Rep #: [id number] : 1955 69 From: Dennis Strickland DO [...] that he was changing lights on a ppgct-ym-hlwkh and notes that when he was coming [...] fractures in his lower back as well. [facility] Medical History Hemorrhoid Epilepsy Sciatica High cholesterol Home Medications ???Medication ???Instructions ???Recorded ???Last Taken ???Type omeprazole 20 mg capsule,delayed 40 mg PO DAILY 03/23/22 Unknown History release gabapentin 300 mg capsule 300 mg PO 4X/DAY 04/02/22 Unknown History hydrocortisone acetate 25 mg 25 mg MD QHS #12 ea 04/27/22 Unknown Rx rectal [...] AdvReac Rash Verified 11/05/24 14:16 hydrocodone (From [place]) AdvReac Upset Verified 11/05/24 14:16 Stomach ibuprofen [...] Abdomen: De (more content not included)... Normal [facility] Eosinophil percentageOrdered By: Dennis Strickland on 11-05-2024 Eosinophils/100 WBC (Bld) 3.3 % 0-5 [facility] Epithelial cells.squamous LM Ql (Urine sed)Ordered By: Dennis Strickland on 11-05-2024 Epithelial cells.squamous LM.HPF (Urine sed) [#/Area] 0 /[HPF] 0-5 [facility] Erythrocyte distribution wid th ratioOrdered By: Dennis Strickland on 11-05-2024 Erythrocyte distribution width (RBC) [Ratio] 13.8 % 11.6-14.6 [facility] Erythrocyte distribution wid th standard deviationOrdered By: Dennis Strickland on 11-05-2024 Erythrocyte distribution width (RBC) [Entitic vol] 45.1 fL High 35.1-43.9 [facility] Estimated glomerular filtrat ion rate (GFR) AmericanOrdered By: Dennis Strickland on 11-05-2024 Estimated GFR (MDRD) Amer 94 mL/min >60 [facility] Comment on above: GFR Calc Estimation of creatinine homa aranceOrdered By: Dennis Strickland on 11-05-2024 Estimated Creatinine Clearance Calc 70.59 ml/min [facility] Foot min 3 Viewson 5 Foot min 3 Views [facility] Imaging Services [address] [place], [place] [address] (493) Foot min 3 Views MR#: [id number] Acct: [id number] Name: WINSTON MARI Rep #: [id number] : 1955 M 69 From: Richard Cortez DO PCP: Dr. Eugenio Mayen DO Status: REG ER Study: Foot min 3 Views Date of Exam: 11/05/24 Exam# [id number] Ordering Dr: Dennis Strickland DO [id number] INDICATION: PAIN, FALL EXAMINATION/TECHNIQUE: X-RAY - LEFT [...] 17:04 EST Reading Location ID and State: [facility] / [place] Tel [phone], Service support , CC: Dr. Eugenio Mayen DO; Dr. Dennis Strickland DO Fashion Coordinator: Signed Normal [facility] Foot min 3 Views [facility] Imaging Services [address] [place], [place] [id number] Foot min 3 Views MR#: [id number] Acct: [id number] Name: WINSTON MARI Rep #: [id number] : 1955 M 69 From: Richard Cortez DO PCP: Dr. Eugenio Mayen DO Status: REG ER Study: Foot min 3 Views Date of Exam: 11/05/24 Exam# [id number] Ordering Dr: Dennis Strickland DO [id number] INDICATION: fall from ladder, heal pain EXAMINATION/TECHNIQUE: [...] 17:07 EST Reading Location ID and State: [facility] / [place] Tel [phone], Service support , CC: Dr. Eugenio Mayen DO; Dr. Dennis Strickland DO Fashion Coordinator: Signed Normal [facility] Glomerular filtration rate ( GFR) estimationOrdered By: Dennis Strickland on 11-05-2024 Estimated GFR (MDRD) Non-Af Amer 78 mL/min >60 [facility] Comment on above: Non- GFR Calc Glucose Ql (U)Ordered By: Jourdan Strickland on 11-05-2024 Urine Glucose (UA) Normal mg/dl Normal [facility] Glucose measurementOrdered B y: Dennis Strickland on 11-05-2024 Glucose [Mass/Vol] 80 mg/dL 74-106 [facility] Hematocrit Auto (Bld) [Volum e fraction]Ordered By: Dennis Strickland on 11-05-2024 Hematocrit (Bld) [Volume fraction] 39.3 % Low 40-54 [facility] Hemoglobin measurementOrdere d By: Dennis Strickland on 11-05-2024 Hemoglobin (Bld) [Mass/Vol] 13.1 g/dL 13.0-16.5 [facility] Humerus min 2 Viewson 2024 Humerus min 2 Views [facility] Imaging Services [address] [place] [id number] Humerus min 2 Views MR#: [id number] Acct: [id number] Name: WINSTON MARI Rep #: [id number] : 1955 M 69 From: Richard Cortez DO PCP: Dr. Eugenio Mayen DO Status: REG ER Study: Humerus min 2 Views Date of Exam: 11/05/24 Exam# [id number] Ordering Dr: Dennis Strickland DO [id number] INDICATION: fall, pain EXAMINATION/TECHNIQUE: X-RAY - LEFT [...] 17:12 EST Reading Location ID and State: [address] [place] [address] Tel [phone], Service support , CC: Dr. Eugenio Mayen DO; Dr. Dennis Strickland DO Fashion Coordinator: Signed Normal [facility] Immature granulocytes/100 WB C Auto (Bld)Ordered By: Dennis Strickland on 11-05-2024 Immature granulocytes/100 WBC (Bld) 0.200 % 0.0-0.9 [facility] Comment on above: IG% - Immature Granu locytes (promyelocytes, myelocytes and metamyelocytes) > 1% indicates that a LEFT SHIFT is Present. International normalized rat io (INR) calculationOrdered By: Dennis Strickland on 11-05-2024 INR Coag (Bld) [Relative time] 0.9 {INR} [facility] Ketones Test strip Ql (U)Ord ered By: Dennis Strickland on 11-05-2024 Ketones Ql (U) Negative Negative [facility] Laboratory - Chemistry and C hemistry - challengeOrdered By: Dennis Strickland on 11-05-2024 AST [Catalytic activity/Vol] 11 U/L Low 15-37 [facility] Liver Profileon 11-05-2024 Albumin [Mass/Vol] 3.4 g/dL Normal 3.2-5.0 [facility] Comment on above: Performed By: #### L 500.2500, L500.3400 #### [facility] Laboratory [address] [place], [address] ALK P 81 U/L Normal 45-117 [facility] Comment on above: Performed By: #### L 500.2500, L500.3400 #### [facility] Laboratory [address] [place], [address] ALT [Catalytic activity/Vol] 11 U/L Low 16-61 [facility] Comment on above: Performed By: #### L 500.2500, L500.3400 #### [facility] Laboratory [address] [place], [address] AST [Catalytic activity/Vol] 11 U/L Low 15-37 [facility] Comment on above: Performed By: #### L 500.2500, L500.3400 #### [facility] Laboratory [address] [place], [address] Bilirubin [Mass/Vol] 1.00 mg/dL Normal 0.20-1.00 [facility] Comment on above: Result Comment: For patients on eltrombopag therapy, use of Dimension [place] TBIL is not recommended. Performed By: #### L 500.2500, L500.3400 #### [facility] Laboratory [address] [place], [address] Bilirubin.direct [Mass/Vol] 0.21 mg/dL Normal 0.00-0.30 [facility] Comment on above: Performed By: #### L 500.2500, L500.3400 #### [facility] Laboratory [address] [place], [address] Globulin (S) [Mass/Vol] 3.3 g/dL Normal 2.2-4.2 [facility] Comment on above: Performed By: #### L 500.2500, L500.3400 #### [facility] Laboratory [address] [place], [address] T PROT 6.7 g/dL Normal 6.4-8.2 [facility] Comment on above: Performed By: #### L 500.2500, L500.3400 #### [facility] Laboratory [address] [place], [address] ALB Normal 3.2-5.0 [facility] Comment on above: Result Comment: This specimen has been REJECTED due to Laboratory criteria: Hemolyzed. STANLEY has been notified of need of recollection. 11/05/24 1548 Heather Lollo Performed By: #### L 100.0100, L500.3400, L500.2500 #### [facility] Laboratory [address] [place], [address] ALK P Normal 45-117 [facility] Comment on above: Result Comment: This specimen has been REJECTED due to Laboratory criteria: Hemolyzed. STANLEY has been notified of need of recollection. 11/05/24 1548 Heather Lollo Performed By: #### L 100.0100, L500.3400, L500.2500 #### [facility] Laboratory [address] [place], [address] ALT Normal 16-61 [facility] Comment on above: Result Comment: This specimen has been REJECTED due to Laboratory criteria: Hemolyzed. STANLEY has been notified of need of recollection. 11/05/24 1548 Heather Lollo Performed By: #### L 100.0100, L500.3400, L500.2500 #### [facility] Laboratory [address] [place], [address] AST Normal 15-37 [facility] Comment on above: Result Comment: This specimen has been REJECTED due to Laboratory criteria: Hemolyzed. STANLEY has been notified of need of recollection. 11/05/24 1548 Heather Lollo Performed By: #### L 100.0100, L500.3400, L500.2500 #### [facility] Laboratory [address] [place], [address] D BILI Normal 0.00-0.30 [facility] Comment on above: Result Comment: This specimen has been REJECTED due to Laboratory criteria: Hemolyzed. STANLEY has been notified of need of recollection. 11/05/24 1548 Heather Lollo Performed By: #### L 100.0100, L500.3400, L500.2500 #### [facility] Laboratory [address] [place], [address] T BILI Normal 0.20-1.00 [facility] Comment on above: Result Comment: This specimen has been REJECTED due to Laboratory criteria: Hemolyzed. STANLEY has been notified of need of recollection. 11/05/24 1548 Heather Lollo Performed By: #### L 100.0100, L500.3400, L500.2500 #### [facility] Laboratory [address] [place], [address] T PROT Normal 6.4-8.2 [facility] Comment on above: Result Comment: This specimen has been REJECTED due to Laboratory criteria: Hemolyzed. STANELY has been notified of need of recollection. 11/05/24 1548 Heather Lollo Performed By: #### L 100.0100, L500.3400, L500.2500 #### [facility] Laboratory [address] [place], [address] Lymphocytes Auto (Unsp spec) [#/Vol]Ordered By: Dennis Strickland on 11-05-2024 Lymphocytes (Bld) [#/Vol] 1.68 10*3/uL 0.83-4.51 [facility] Lymphocytes/100 WBC Auto (Un sp spec)Ordered By: Dennis Strickland on 11-05-2024 Lymphocytes/100 WBC (Bld) 19.6 % 19-41 [facility] MCV (mean corpuscular volume ) determinationOrdered By: Dennis Strickland on 11-05-2024 MCV (RBC) [Entitic vol] 90.3 fL 80-94 [facility] Mean corpuscular hemoglobin (MCH) determinationOrdered By: Dennis Strickland on 11-05-2024 MCH (RBC) [Entitic mass] 30.1 pg 27.0-32.0 [facility] Mean corpuscular hemoglobin concentration (MCHC) determinationOrdered By: Dennis Strickland on 11-05-2024 MCHC (RBC) [Mass/Vol] 33.3 g/dL 32-36 [facility] Mean platelet volume determi nationOrdered By: Dennis Strickland on 11-05-2024 Platelet mean volume (Bld) [Entitic vol] 8.7 fL 6.2-12.0 [facility] Microscopic analysis of urin e for red blood cells (RBC)Ordered By: Dennis Strickland on 11-05-2024 Urine RBC 0-5 SEEN /hpf 0-5 [facility] Monocyte percentageOrdered B y: Dennis Strickland on 11-05-2024 Monocytes/100 WBC (Bld) 8.7 % 0-10 [facility] Mucus LM Ql (Urine sed)Order ed By: Dennis Strickland on 11-05-2024 Mucus Ql (Urine sed) 0 SEEN /hpf [facility] Neutrophil percentageOrdered By: Dennis Strickland on 11-05-2024 Neutrophils/100 WBC (Bld) 67.5 % 47-70 [facility] Nitrite Test strip Ql (U)Ord ered By: Dennis Strickland on 11-05-2024 Nitrite Ql (U) Negative Negative [facility] Nucleated red blood cell per centageOrdered By: Dennis Strickland on 11-05-2024 Nucleated RBC/100 WBC (Bld) [Ratio] 0 % 0-5 [facility] Partial Thromboplast Timeon 11-05-2024 aPTT Coag (Bld) [Time] 27.5 s Normal 24.1-36.2 [facility] Comment on above: Performed By: #### L 300.4310, L300.3900 ####[facility] [address] [place], [address] Platelet countOrdered By: Jourdan Strickland on 11-05-2024 Platelets (Bld) [#/Vol] 386 10*3/uL 150-450 [facility] Potassium measurementOrdered By: Dennis Strickland on 11-05-2024 Potassium [Moles/Vol] 3.6 mmol/L 3.5-5.1 [facility] Protein Test strip Ql (U)Ord ered By: Dennis Strickland on 11-05-2024 Protein Ql (U) 15 mg/dl High Negative [facility] Prothrombin Time w/INRon INR Coag (PPP) [Relative time] 0.9 {INR} Normal [facility] Comment on above: Performed By: #### L 300.4310, L300.3900 ####[facility] [address] [place], [address] PT Coag (PPP) [Time] 12.8 s Normal 11.7-14.9 [facility] Comment on above: Performed By: #### L 300.4310, L300.3900 ####[facility] [address] [place], [address] Prothrombin timeOrdered By: Dennis Strickland on 11-05-2024 PT Coag (PPP) [Time] 12.8 s 11.7-14.9 [facility] RBC Auto (Bld) [#/Vol]Ordere d By: Dennis Strickland on 11-05-2024 RBC (Bld) [#/Vol] 4.35 10*6/uL Low 4.6-6.2 [facility] Serum anion gap measurementO rdered By: Dennis Strickland on 11-05-2024 Anion gap [Moles/Vol] 6 mmol/L 5-15 [facility] Serum globulin measurementOr dered By: Dennis Strickland on 11-05-2024 Globulin (S) [Mass/Vol] 3.3 g/dL 2.2-4.2 [facility] Serum or plasma alanine jules otransferase (ALT) measurementOrdered By: Dennis Strickland on 11-05-2024 ALT [Catalytic activity/Vol] 11 U/L Low 16-61 [facility] Serum or plasma albumin doug urement (mass/volume)Ordered By: Dennis Strickland on 11-05-2024 Albumin [Mass/Vol] 3.4 g/dL 3.2-5.0 [facility] Serum or plasma alkaline reji sphatase measurementOrdered By: Dennis Strickland on 11-05-2024 ALP [Catalytic activity/Vol] 81 U/L 45-117 [facility] Serum or plasma calcium doug urement (mass/volume)Ordered By: Dennis Strickland on 11-05-2024 Calcium [Mass/Vol] 8.4 mg/dL Low 8.5-10.1 [facility] Serum or plasma creatinine m easurement (mass/volume)Ordered By: Dennis Strickland on 11-05-2024 Creatinine [Mass/Vol] 1.01 mg/dL 0.70-1.30 [facility] Comment on above: The validity of the calculated GFR & GFRAA in patients over 70 years has not been determined. Clinical correlation is essential. Serum or plasma urea nitroge n measurement (mass/volume)Ordered By: Dennis Strickland on 11-05-2024 Urea nitrogen [Mass/Vol] 12 mg/dL 7-18 [facility] Shoulder min 2 Viewson 11-05 Shoulder min 2 Views [facility] Imaging Services [address] [place] [address] Shoulder min 2 Views MR#: [id number] Acct: [id number] Name: WINSTON MARI Rep #: [id number] : 1955 M 69 From: Richard Cortez DO PCP: Dr. Eugenio Mayen, Status: REG ER Study: Shoulder min 2 Views Date of Exam: 11/05/24 Exam# [id number] Ordering Dr: Dennis Strickland DO [id number] INDICATION: fall pain EXAMINATION/TECHNIQUE: X-RAY - LEFT [...] 17:00 EST Reading Location ID and State: [facility] / [place] Tel [phone], Service support , CC: Dr. Eugenio Mayen DO; Dr. Dennis Strickland DO Fashion Coordinator: Signed Normal [facility] Sodium levelOrdered By: Salazar Strickland on 11-05-2024 Sodium [Moles/Vol] 140 mmol/L 136-145 [facility] Spine Cervical without Contr ason 11-05-2024 Spine Cervical without Contras [facility] Imaging Services [address] [place] [address] Spine Cervical without Contras MR#: [id number] Acct: [id number] Name: WINSTON MARI Rep #: [id number] : 1955 M 69 From: Richard Cortez DO PCP: Dr. Eugenio Mayen DO Status: REG ER Study: Spine Cervical without Contras Date of Exam: 0 11/05/24 Exam# [id number] Ordering Dr: Dennis Strickland DO [id number] STUDY: CT CERVICAL SPINE WITHOUT CONTRAST REASON [...] 16:57 EST Reading Location ID and State: [facility] / [place] Tel [phone], Service support , CC: Dr. Eugenio Mayen DO; Dr. Dennis Strickland DO Fashion Coordinator: Signed Normal [facility] Total proteinOrdered By: Roni Strickland on 11-05-2024 Protein [Mass/Vol] 6.7 g/dL 6.4-8.2 [facility] Transitional cells LM Ql (Ur ine sed)Ordered By: Dennis Strickland on 11-05-2024 Urine Transitional Epithelial Cells 0-5 SEEN /hpf 0-5 [facility] Urinalysis, Completeon 11-05 BACTERIA RARE Normal None Seen [facility] Comment on above: Order Comment: CLEAN CATCH Performed By: #### L 400.0001 ####[facility] [address] [place], [address] WBC 0-5 SEEN Normal 0-5 [facility] Comment on above: Order Comment: CLEAN CATCH Performed By: #### L 400.0001 ####[facility] [address] [place], [address] RBC 0-5 SEEN Normal 0-5 [facility] Comment on above: Order Comment: CLEAN CATCH Performed By: #### L 400.0001 ####[facility] [address] [place], [address] EPI,TRANSITION 0-5 SEEN Normal 0-5 [facility] Comment on above: Order Comment: CLEAN CATCH Performed By: #### L 400.0001 ####[facility] [address] [place], [address] EPI,SQUAMOUS 0-5 SEEN Normal 0-5 [facility] Comment on above: Order Comment: CLEAN CATCH Performed By: #### L 400.0001 ####[facility] [address] [place], [address] Mucus Ql (Urine sed) 0 SEEN Normal [facility] Comment on above: Order Comment: CLEAN CATCH Performed By: #### L 400.0001 ####[facility] [address] [place], [address] Urine blood detectionOrdered By: Dennis Strickland on 11-05-2024 Urine Occult Blood 10 /ul High Negative [facility] Urine clarityOrdered By: Roni Strickland on 11-05-2024 Clarity (U) Clear Clear [facility] Urine color determinationOrd ered By: Dennis Strickland on 11-05-2024 Color (U) Yellow Yellow [facility] Urine leukocyte esterase det ection by dipstickOrdered By: Dennis Strickland on 11-05-2024 Leukocyte esterase Test strip Ql (U) Negative Negative [facility] Urine pHOrdered By: Dennis vazquez on 11-05-2024 pH (U) 7.0 [pH] 5.0 - 8.0 [facility] Urine specific gravity measu rementOrdered By: Dennis Strickland on 11-05-2024 Specific gravity (U) [Rel density] 1.010 1.002-1.03 0 [facility] Urobilinogen Ql (U)Ordered B y: Dennis Strickland on 11-05-2024 Urine Urobilinogen Normal mg/dl Normal [facility] White blood cell (WBC) count Ordered By: Dennis Strickland on 11-05-2024 WBC (Bld) [#/Vol] 8.6 10*3/uL 4.4-11.0 [facility] White blood cell countOrdere d By: Dennis Strickland on 11-05-2024 Urine WBC 0-5 SEEN /hpf 0-5 [facility] aPTT Coag (PPP) [Time]Ordere d By: Dennis Strickland on 11-05-2024 aPTT Coag (Bld) [Time] 27.5 s 24.1-36.2 [facility] XR SHOULDER MINIMUM 2 VIEWS [...] 09/13/2024 4:03:15 PM Ordering Provider: EUGENIO MAYEN [facility] MUMPSon 12-11-2023 Mumps Ab Positive Normal [facility] ([place]) Comment on above: Result Comment: INTE RPRETATION [...] CMP, LIPID, GFR, ANEU, PSA, FERR #### [address] [address] #### HCV1, VARIS, MUMP, RUBEO, RUBIS #### [place] [address] RUBEOon 12-11-2023 Rubeola IgG Ab Positive [facility] ([place]) Comment on above: Result Comment: INTE RPRETATION [...] CMP, LIPID, GFR, ANEU, PSA, FERR #### [address] [address] #### HCV1, VARIS, MUMP, RUBEO, RUBIS #### [place] [address] VARISon 12-11-[address] Positive Normal [facility] ([place]) Comment on above: Result Comment: INTE RPRETATION [...] CMP, LIPID, GFR, ANEU, PSA, FERR #### [facility] [address] [place], [place] [address] #### HCV1, VARIS, MUMP, RUBEO, RUBIS #### [facility] [address] [place] [address] THORAX W/O CONTRASTon CT THORAX W/O [...] 12/08/2023 2:59:30 PM Ordering Provider: EUGENIO MAYEN [facility] ([place]) HCVon 12-08-2023 Hep C Ab Non-Reactive Normal Non-Reacti ve [facility] ([place]) Comment on above: Performed By: #### M G, CBC, FES, VIDH, ADIFF, CMP, LIPID, GFR, ANEU, PSA, FERR #### [place] [id number] #### HCV1, VARIS, MUMP, RUBEO, RUBIS #### [address] [address] Hep C Ab Int Normal [facility] ([place]) Comment on above: Result Comment: Nonr eactive: [...] CMP, LIPID, GFR, ANEU, PSA, FERR #### [address] [address] #### HCV1, VARIS, MUMP, RUBEO, RUBIS #### [address] [address] RUBISon 12-08-[address] Positive Normal Positive [facility] ([place]) Comment on above: Result Comment: This immune [...] CMP, LIPID, GFR, ANEU, PSA, FERR #### [place] [address] #### HCV1, VARIS, MUMP, RUBEO, RUBIS #### [address] [address] .Auto Diffon 12-07-2023 Basophil, Absolute 0.1 10 3/mcL Normal 0.0-0.2 [facility] ([place]) Comment on above: Performed By: #### M G, CBC, FES, VIDH, ADIFF, CMP, LIPID, GFR, ANEU, PSA, FERR #### [place] [address] #### HCV1, VARIS, MUMP, RUBEO, RUBIS #### [address] [address] Basophils/100 WBC (Bld) 1.1 % Normal 0.0-2.5 [facility] ([place]) Comment on above: Performed By: #### M G, CBC, FES, VIDH, ADIFF, CMP, LIPID, GFR, ANEU, PSA, FERR #### [place] [address] #### HCV1, VARIS, MUMP, RUBEO, RUBIS #### [address] [address] Eosinophil, Absolute 0.4 10 3/mcL Normal 0.0-0.4 [facility] ([place]) Comment on above: Performed By: #### M G, CBC, FES, VIDH, ADIFF, CMP, LIPID, GFR, ANEU, PSA, FERR #### [place] [address] #### HCV1, VARIS, MUMP, RUBEO, RUBIS #### [address] [address] Eosinophils/100 WBC (Bld) 7.0 % Normal 0.0-7.0 [facility] ([place]) Comment on above: Performed By: #### M G, CBC, FES, VIDH, ADIFF, CMP, LIPID, GFR, ANEU, PSA, FERR #### [address] [address] #### HCV1, VARIS, MUMP, RUBEO, RUBIS #### [address] [address] Lymphocyte, Absolute 1.6 10 3/mcL Normal 0.8-3.9 [facility] ([place]) Comment on above: Performed By: #### M G, CBC, FES, VIDH, ADIFF, CMP, LIPID, GFR, ANEU, PSA, FERR #### [address] [address] #### HCV1, VARIS, MUMP, RUBEO, RUBIS #### [address] [address] Lymphocytes/100 WBC (Bld) 25.1 % Normal 10.0-50.0 [facility] ([place]) Comment on above: Performed By: #### M G, CBC, FES, VIDH, ADIFF, CMP, LIPID, GFR, ANEU, PSA, FERR #### [address] [address] #### HCV1, VARIS, MUMP, RUBEO, RUBIS #### [address] [address] Monocyte, Absolute 0.6 10 3/mcL Normal 0.2-1.0 [facility] ([place]) Comment on above: Performed By: #### M G, CBC, FES, VIDH, ADIFF, CMP, LIPID, GFR, ANEU, PSA, FERR #### [address] [address] #### HCV1, VARIS, MUMP, RUBEO, RUBIS #### [address] [address] Monocytes/100 WBC (Bld) 8.9 % Normal 1.7-13.0 [facility] ([place]) Comment on above: Performed By: #### M G, CBC, FES, VIDH, ADIFF, CMP, LIPID, GFR, ANEU, PSA, FERR #### [address] [address] #### HCV1, VARIS, MUMP, RUBEO, RUBIS #### [address] [address] Neutrophils/100 WBC (Bld) 57.9 % Normal 37.0-80.0 [facility] ([place]) Comment on above: Performed By: #### M G, CBC, FES, VIDH, ADIFF, CMP, LIPID, GFR, ANEU, PSA, FERR #### [address] [address] #### HCV1, VARIS, MUMP, RUBEO, RUBIS #### [address] [address] .GFRon 12-07-2023 GFR 88 ml/min/1.73sqm Normal [facility] ([place]) Comment on above: Result Comment: GFR Population [...] CMP, LIPID, GFR, ANEU, PSA, FERR #### [address] [address] #### HCV1, VARIS, MUMP, RUBEO, RUBIS #### [address] [address] GFR Non- 73 ml/min/1.73sqm Normal [facility] ([place]) Comment on above: Result Comment: GFR Population [...] CMP, LIPID, GFR, ANEU, PSA, FERR #### [address] [address] #### HCV1, VARIS, MUMP, RUBEO, RUBIS #### [address] [address] .NEUABSon 12-07-2023 Neutrophil, Absolute 3.7 10 3/mcL Normal 2.9-6.2 [facility] ([place]) Comment on above: Performed By: #### M G, CBC, FES, VIDH, ADIFF, CMP, LIPID, GFR, ANEU, PSA, FERR #### [address] [address] #### HCV1, VARIS, MUMP, RUBEO, RUBIS #### [address] [address] CBCon 12-07-2023 Erythrocyte distribution width (RBC) [Ratio] 14.1 % Normal 11.5-14.5 [facility] ([place]) Comment on above: Performed By: #### M G, CBC, FES, VIDH, ADIFF, CMP, LIPID, GFR, ANEU, PSA, FERR #### [address] [address] #### HCV1, VARIS, MUMP, RUBEO, RUBIS #### [address] [address] Hematocrit (Bld) [Volume fraction] 37.0 % Low 42.0-52.0 [facility] ([place]) Comment on above: Performed By: #### M G, CBC, FES, VIDH, ADIFF, CMP, LIPID, GFR, ANEU, PSA, FERR #### [place] [address] #### HCV1, VARIS, MUMP, RUBEO, RUBIS #### [place] [address] Hgb 12.9 G/dL Low 14.0-18.0 [facility] ([place]) Comment on above: Performed By: #### M G, CBC, FES, VIDH, ADIFF, CMP, LIPID, GFR, ANEU, PSA, FERR #### [place] [address] #### HCV1, VARIS, MUMP, RUBEO, RUBIS #### [address] [address] MCH (RBC) [Entitic mass] 31.2 pg Normal 27.0-31.2 [facility] ([place]) Comment on above: Performed By: #### M G, CBC, FES, VIDH, ADIFF, CMP, LIPID, GFR, ANEU, PSA, FERR #### [place] [address] #### HCV1, VARIS, MUMP, RUBEO, RUBIS #### [place] [address] MCHC 34.8 G/dL Normal 31.8-35.4 [facility] ([place]) Comment on above: Performed By: #### M G, CBC, FES, VIDH, ADIFF, CMP, LIPID, GFR, ANEU, PSA, FERR #### [place] [address] #### HCV1, VARIS, MUMP, RUBEO, RUBIS #### [place] [address] MCV (RBC) [Entitic vol] 89.5 fL Normal 80.0-94.0 [facility] [place] Comment on above: Performed By: #### M G, CBC, FES, VIDH, ADIFF, CMP, LIPID, GFR, ANEU, PSA, FERR #### [place] [address] #### HCV1, VARIS, MUMP, RUBEO, RUBIS #### [place] [address] Platelet 427 10 3/mcL High 130-400 [facility] ([place] Comment on above: Performed By: #### M G, CBC, FES, VIDH, ADIFF, CMP, LIPID, GFR, ANEU, PSA, FERR #### [place] [address] #### HCV1, VARIS, MUMP, RUBEO, RUBIS #### [place] [address] Platelet mean volume (Bld) [Entitic vol] 6.8 fL Low 7.4-10.4 [facility] [place] Comment on above: Performed By: #### M G, CBC, FES, VIDH, ADIFF, CMP, LIPID, GFR, ANEU, PSA, FERR #### [place] [address] #### HCV1, VARIS, MUMP, RUBEO, RUBIS #### [place] [address] RBC 4.14 10 6/mcL Normal 4.04-6.13 [facility] [place] Comment on above: Performed By: #### M G, CBC, FES, VIDH, ADIFF, CMP, LIPID, GFR, ANEU, PSA, FERR #### [place] [address] #### HCV1, VARIS, MUMP, RUBEO, RUBIS #### [place] [address] WBC 6.3 10 3/mcL Normal 4.6-10.8 [facility] [place] Comment on above: Performed By: #### M G, CBC, FES, VIDH, ADIFF, CMP, LIPID, GFR, ANEU, PSA, FERR #### [address] [address] #### HCV1, VARIS, MUMP, RUBEO, RUBIS #### [place] [address] CMPon 12-07-2023 Albumin Level 3.8 G/dL Normal 3.4-4.8 [facility] [place] Comment on above: Performed By: #### M G, CBC, FES, VIDH, ADIFF, CMP, LIPID, GFR, ANEU, PSA, FERR #### [place] [address] #### HCV1, VARIS, MUMP, RUBEO, RUBIS #### [place] [address] Albumin/Globulin [Mass ratio] 1.1 {ratio} Normal 1.1-2.5 [facility] [place] Comment on above: Performed By: #### M G, CBC, FES, VIDH, ADIFF, CMP, LIPID, GFR, ANEU, PSA, FERR #### [place] [address] #### HCV1, VARIS, MUMP, RUBEO, RUBIS #### [place] [id number] ALP [Catalytic activity/Vol] 91 U/L Normal 40-135 [facility] [place] Comment on above: Performed By: #### M G, CBC, FES, VIDH, ADIFF, CMP, LIPID, GFR, ANEU, PSA, FERR #### [place] [address] #### HCV1, VARIS, MUMP, RUBEO, RUBIS #### [place] [id number] ALT [Catalytic activity/Vol] 22 U/L Normal 16-63 [facility] [place] Comment on above: Performed By: #### M G, CBC, FES, VIDH, ADIFF, CMP, LIPID, GFR, ANEU, PSA, FERR #### [address] [address] #### HCV1, VARIS, MUMP, RUBEO, RUBIS #### [address] [address] AST [Catalytic activity/Vol] 12 U/L Normal 10-40 [facility] [place] Comment on above: Performed By: #### M G, CBC, FES, VIDH, ADIFF, CMP, LIPID, GFR, ANEU, PSA, FERR #### [place] [address] #### HCV1, VARIS, MUMP, RUBEO, RUBIS #### [address] [address] Bili Total 0.6 mg/dL Normal 0.2-1.0 [facility] [place] Comment on above: Result Comment: Use of this assay is not recommended for patients undergoing treatment with eltrombopag due to the potential for falsely elevated results. Performed By: #### M G, CBC, FES, VIDH, ADIFF, CMP, LIPID, GFR, ANEU, PSA, FERR #### [place] [address] #### HCV1, VARIS, MUMP, RUBEO, RUBIS #### [address] [address] BUN/Creatinine Ratio 16 ratio Normal 7-27 [facility] ([place]) Comment on above: Performed By: #### M G, CBC, FES, VIDH, ADIFF, CMP, LIPID, GFR, ANEU, PSA, FERR #### [place] [address] #### HCV1, VARIS, MUMP, RUBEO, RUBIS #### [address] [address] Calcium [Mass/Vol] 9.0 mg/dL Normal 8.4-10.2 [facility] ([place]) Comment on above: Performed By: #### M G, CBC, FES, VIDH, ADIFF, CMP, LIPID, GFR, ANEU, PSA, FERR #### [address] [address] #### HCV1, VARIS, MUMP, RUBEO, RUBIS #### [address] [address] Chloride [Moles/Vol] 104 mmol/L Normal 98-107 [facility] ([place] Comment on above: Performed By: #### M G, CBC, FES, VIDH, ADIFF, CMP, LIPID, GFR, ANEU, PSA, FERR #### [place] [address] #### HCV1, VARIS, MUMP, RUBEO, RUBIS #### [address] [address] CO2 [Moles/Vol] 30 mmol/L Normal 23-31 [facility] [place] Comment on above: Performed By: #### M G, CBC, FES, VIDH, ADIFF, CMP, LIPID, GFR, ANEU, PSA, FERR #### [place] [address] #### HCV1, VARIS, MUMP, RUBEO, RUBIS #### [address] [address] Creatinine [Mass/Vol] 1.02 mg/dL Normal 0.70-1.30 [facility] ([place] Comment on above: Performed By: #### M G, CBC, FES, VIDH, ADIFF, CMP, LIPID, GFR, ANEU, PSA, FERR #### [place] [address] #### HCV1, VARIS, MUMP, RUBEO, RUBIS #### [address] [address] Electrolyte Balance 6.0 mEq/L Normal 4.0-15.0 [facility] ([place] Comment on above: Performed By: #### M G, CBC, FES, VIDH, ADIFF, CMP, LIPID, GFR, ANEU, PSA, FERR #### [address] [address] #### HCV1, VARIS, MUMP, RUBEO, RUBIS #### [address] [address] Globulin 3.5 G/dL Normal [facility] [place] Comment on above: Performed By: #### M G, CBC, FES, VIDH, ADIFF, CMP, LIPID, GFR, ANEU, PSA, FERR #### [address] [address] #### HCV1, VARIS, MUMP, RUBEO, RUBIS #### [address] [address] Glucose [Mass/Vol] 82 mg/dL Normal 80-115 [facility] ([place] Comment on above: Performed By: #### M G, CBC, FES, VIDH, ADIFF, CMP, LIPID, GFR, ANEU, PSA, FERR #### [address] [address] #### HCV1, VARIS, MUMP, RUBEO, RUBIS #### [address] [address] Potassium [Moles/Vol] 4.8 mmol/L Normal 3.5-5.1 [facility] ([place] Comment on above: Performed By: #### M G, CBC, FES, VIDH, ADIFF, CMP, LIPID, GFR, ANEU, PSA, FERR #### [address] [address] #### HCV1, VARIS, MUMP, RUBEO, RUBIS #### [address] [address] Sodium [Moles/Vol] 140 mmol/L Normal 136-145 [facility] ([place] Comment on above: Performed By: #### M G, CBC, FES, VIDH, ADIFF, CMP, LIPID, GFR, ANEU, PSA, FERR #### [address] [address] #### HCV1, VARIS, MUMP, RUBEO, RUBIS #### [address] [address] Total Protein 7.3 G/dL Normal 6.4-8.2 [facility] [place] Comment on above: Performed By: #### M G, CBC, FES, VIDH, ADIFF, CMP, LIPID, GFR, ANEU, PSA, FERR #### [place] [address] #### HCV1, VARIS, MUMP, RUBEO, RUBIS #### [address] [address] Urea nitrogen [Mass/Vol] 16 mg/dL Normal 7-18 [facility] [place] Comment on above: Performed By: #### M G, CBC, FES, VIDH, ADIFF, CMP, LIPID, GFR, ANEU, PSA, FERR #### [place] [address] #### HCV1, VARIS, MUMP, RUBEO, RUBIS #### [address] [address] Sina 12-07-2023 Ferritin [Mass/Vol] 83.0 ng/mL Normal 26.0-388.0 [facility] ([place] Comment on above: Performed By: #### M G, CBC, FES, VIDH, ADIFF, CMP, LIPID, GFR, ANEU, PSA, FERR #### [place] [address] #### HCV1, VARIS, MUMP, RUBEO, RUBIS #### [address] [address] FESon 12-07-2023 Iron [Mass/Vol] 92 ug/dL Normal 65-175 [facility] [place] Comment on above: Performed By: #### M G, CBC, FES, VIDH, ADIFF, CMP, LIPID, GFR, ANEU, PSA, FERR #### [place] [address] #### HCV1, VARIS, MUMP, RUBEO, RUBIS #### [place] [address] Iron Sat 26 % Normal [facility] [place] Comment on above: Performed By: #### M G, CBC, FES, VIDH, ADIFF, CMP, LIPID, GFR, ANEU, PSA, FERR #### [address] [address] #### HCV1, VARIS, MUMP, RUBEO, RUBIS #### [place] [address] TIBC 359 mcg/dL Normal 250-450 [facility] [place] Comment on above: Performed By: #### M G, CBC, FES, VIDH, ADIFF, CMP, LIPID, GFR, ANEU, PSA, FERR #### [address] [address] #### HCV1, VARIS, MUMP, RUBEO, RUBIS #### [place] [address] LABORATORYOrdered By: SYSTEM SYSTEM on 12-07-2023 25-hydroxyvitamin [...] mg/dL Normal 0-200 [facility] ([place] Comment on above: Result Comment: Chol esterol Reference Interval: Less than 200 Desirable 200-239 Borderline high risk 240 and above High risk Performed By: #### M G, CBC, FES, VIDH, ADIFF, CMP, LIPID, GFR, ANEU, PSA, FERR #### [address] [address] #### HCV1, VARIS, MUMP, RUBEO, RUBIS #### [address] [address] Cholesterol in HDL [Mass/Vol] 37 mg/dL Low 40-60 [facility] [place] Comment on above: Performed By: #### M G, CBC, FES, VIDH, ADIFF, CMP, LIPID, GFR, ANEU, PSA, FERR #### [address] [address] #### HCV1, VARIS, MUMP, RUBEO, RUBIS #### [address] [address] Cholesterol in LDL [Mass/Vol] 67 mg/dL Normal 0-130 [facility] [place] Comment on above: Performed By: #### M G, CBC, FES, VIDH, ADIFF, CMP, LIPID, GFR, ANEU, PSA, FERR #### [address] [address] #### HCV1, VARIS, MUMP, RUBEO, RUBIS #### [address] [address] Triglyceride [Mass/Vol] 92 mg/dL Normal 0-150 [facility] [place] Comment on above: Result Comment: Trig lyceride Reference Interval: Less than 150 Normal 150-199 Borderline high risk 200-499 High risk 500 or higher Very high risk Performed By: #### M G, CBC, FES, VIDH, ADIFF, CMP, LIPID, GFR, ANEU, PSA, FERR #### [place] [address] #### HCV1, VARIS, MUMP, RUBEO, RUBIS #### [place] [address] MGon 12-07-2023 Magnesium [Mass/Vol] 2.2 mg/dL Normal 1.8-2.4 [facility] ([place] Comment on above: Performed By: #### M G, CBC, FES, VIDH, ADIFF, CMP, LIPID, GFR, ANEU, PSA, FERR #### [place] [address] #### HCV1, VARIS, MUMP, RUBEO, RUBIS #### [address] [address] PSAon 12-07-2023 Prostate Specific Antigen 1.79 ng/mL Normal 0.00-4.00 [facility] ([place] Comment on above: Performed By: #### M G, CBC, FES, VIDH, ADIFF, CMP, LIPID, GFR, ANEU, PSA, FERR #### [place] [address] #### HCV1, VARIS, MUMP, RUBEO, RUBIS #### [address] [address] VIDHon 12-07-2023 Vit. D 25-Hydroxy 34.6 ng/mL Normal [facility] ([place] Comment on above: Result Comment: Inte rpretive Values Based on Total 25(OH) Vitamin D: Deficient <20 ng/mL Insufficient 20 - <30 ng/mL Sufficient 30-100 ng/mL Performed By: #### M G, CBC, FES, VIDH, ADIFF, CMP, LIPID, GFR, ANEU, PSA, FERR #### [facility] [address] [place], [place] [address] #### HCV1, VARIS, MUMP, RUBEOCELY #### [facility] [address] [place] [id number] CNPEunice 11-19-2023 CNPN Telephone (PAIMER) ----- WINSTON MARI ([id number]) 1955 M Date Time Provider Department 11/19/23 [...] these medications. Dr Mayen's direct number is [phone]- if you could possibly call and speak with him directly per his request. Monica Gross RN November 19, 2023 1:47 PM Hamilton Agarwal MD 11/19/2023 5:10 PM Signed I did call Dr. Mayen and explained to him that due to the fact that I have inherited several 100s of patients on chronic narcotics from my partner who left to go to [place], I cannot take on any additional new [...] 02/11/2023 Closed compression fracture of L2 vertebra ([facility]*02/12/2023 Closed compression fracture of L4 vertebra ([facility]*02/12/2023 Encounter Status:Closed by MONICA GROSS on 11/20/23 [facility] CNOVon 08-22-2023 CNOV Office Visit (CHANTEL ) ----- WINSTON MARI ([id number]) 1955 Date Time Provider Department 08/22/23 8:45 [...] times a day from Dr. Mayen in [place]. As above, note from Dr. Almonte indicates [...] past in at a pain center in [place]. Patient indicates he decided against kyphoplasty. He is not following up with neurosurgery. Patient absolutely does not want any spinal injections again. He has agreed to try a TENS unit. There is a new TENS unit technology from a company called [employer]. This was prescribed for him. Gave him [...] for 30 days. (more content not included)... [facility] CT THORAX W/O CONTRASTon CT THORAX [...] 8:37:49 AM Ordering Provider: EUGENIO Vickers [facility] ([place] [facility] ----- WINSTON MARI ([id number]) 1955 M Date Time Provider Department 05/23/23 LEE ALMONTE NEAGCLM During your visit today, we [...] Fully Assessed Reason for Visit: Patient Question [7115] Prescriptions as of 05/23/2023 - cholecalciferol (VITAMIN [...] 02/11/2023 Closed compression fracture of L2 vertebra ([facility]*02/12/2023 Closed compression fracture of L4 vertebra ([facility]*02/12/2023 Encounter Status:Closed by DONNA PHILLIP on 05/23/23 [facility] Olga 05-15-2023 ANNEN Telephone (NEAGCLM) ----- WINSTON MARI ([id number]) 1955 Date Time Provider Department 05/15/23 LEE ALMONTE NEAGCLM During your visit today, we recorded the following information about you: Aracely Mart 05/15/2023 10:32 AM Signed Patient consented to surgery with Dr. Almonte on May 10, 2023. Patient wanted to speak with his brother about coordinating care before picking date for surgery. Called patient today to see if that conversation had been discussed. Left patient a VM to call office. 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: Up coming surgery [...] 02/11/2023 Closed compression fracture of L2 vertebra ([facility]*02/12/2023 Closed compression fracture of L4 vertebra ([facility]*02/12/2023 Encounter Status:Closed by ARACELY MART on 05/15/23 [facility] CNOVon 05-10-2023 CNOV Office Visit (NSAGAP ) ----- WINSTON MARI ([id number]) 1955 M Date Time Provider Department 05/10/23 11:00 AM LEE ALMONTE During your visit today, we recorded the following information about you: Temperature Pulse Respiration Blood pressure 98 degrees 69/minute 18/minute 109/73 Weight Height 66.7 kg 1.803 m Lee Almonte MD 05/10/2023 11:35 AM Addendum NEUROSURGERY FOLLOW UP OFFICE NOTE Lee Almonte MD Date of visit: May 10, 2023 Patient Name: Mr.Johnnie Paul Mari Date of : 1955 Current Age: [age] year old Sex: male MRN/E# [id number] Last Office Visit: 03/29/2023 Chief Complaint: Patient presents with: lumbar fracture follow up HISTORY OF PRESENT ILLNESS : Winston Mari is a 68 year old male with a past medical history of arthritis, epilepsy, high cholesterol, and sciatica. He is a former smoker. The patient presented to [facility] ED on 02/11/2023 as a transfer from [facility] after falling off a roof. Imaging revealed [...] BRAIN SURGERY HX OTHER ANEURYSM REPAIR 1983 [facility]- Dr. Simpson- Brain Aneurysm FAMILY HISTORY [...] (more content not included)... Normal [facility] Erasmo 04-30-2023 CNCO Letter Text Normal [facility] Olga 04-30-2023 EVIE Telephone (PARVEZ) ----- WINSTON MARI ([id number]) 1955 M Date Time Provider Department 04/30/23 LENA LEVI During your visit today, we recorded the following information about you: Angelina Daynaisrael MARIBELL 04/30/2023 1:33 PM Signed At appointment [...] of L4 vertebra ([facility]*02/12/2023 Encounter Status:Closed by ANGELINA QUINTERO MA on 04/30/23 Normal [facility] MRI LUMBAR SPINE WO IVCONon 04-30-2023 MRI LUMBAR SPINE WO IVCON * * *Final Report* * * DATE OF EXAM: Apr 30 2023 1:27PM [facility] 0303 - MRI LUMBAR SPINE WO IVCON / PROCEDURE REASON: Other fracture of unspecified lumbar vertebra, initial encounter for closed frac * * * * Physician Interpretation * * * * EXAMINATION: MRI LUMBAR SPINE WO IVCON CLINICAL HISTORY: Other fracture of unspecified lumbar vertebra, initial encounter for closed fracture ([facility]) TECHNIQUE: Routine lumbosacral spine MR protocol without gadolinium. MQ: [id number] COMPARISON: 02/12/2023 RESULT: Counting reference: Lumbosacral junction. For the purposes of this report, L4-5 is considered the level of the iliac crest and assume there are 5 lumbar-type vertebrae. Anatomic variant: None. Localizer images: Renal cysts visible on corporate communications specialist images. Alignment: Alignment is anatomic. Bone marrow [...] and assume there are 5 lumbar-type vertebrae. Fashion Coordinator: PSCB Transcribe Date/Time: Apr 30 2023 1:55P Dictated by : MARYBETH FIGUEROA MD This examination was interpreted and the report reviewed and electronically signed by: MARYBETH FIGUEROA MD on Apr 30 2023 1:59PM EST [id number] Normal [facility]PN[facility]NA[facility] ----- WINSTON MARI ([id number]) 1955 Date Time Provider Department 04/26/23 [facility] PROVIDER MAKAYLARIISRAEL During your visit today, we recorded the following information about you: Ena Beard Ma 04/26/2023 1:02 PM Signed Attempted to contact patient via telephone regarding upcoming NEW patient appointment with Dr. Levi on 04/30/23. [facility] relaying the message below: This is the [facility] calling regarding your upcoming appointment with Dr. Levi. To avoid a delay in your care, please bring any imaging (such as MRI, CT, XR, etc.) that have been done outside of the [facility] Systems on a disk to be viewed [...] or reschedule your appointment, please contact the [place] [facility] at [phone]." Allergies As of Date: 04/26/2023 Noted Allergy [...] 02/11/2023 Closed compression fracture of L2 vertebra ([facility]*02/12/2023 Closed compression fracture of L4 vertebra ([facility]*02/12/2023 Encounter Status:Closed by ENA BEARD MA on 04/26/23 [facility] CNOVon 03-29-2023 CNOV Office Visit (NSAGAP ) ----- WINSTON MARI ([id number]) 1955 M Date Time Provider Department 03/29/23 10:00 AM LEE ALMONTE During your visit today, we recorded the following information about you: Temperature Pulse Respiration Blood pressure 98.8 degrees 78/minute 18/minute 120/68 Weight Height 66.2 kg 1.854 m Lee Almonte MD 03/29/2023 10:08 AM Signed NEUROSURGERY FOLLOW UP OFFICE NOTE Lee Almonte MD Date of visit: March 29, 2023 Patient Name: Mr.Johnnie Paul Mari Date of : 1955 Current Age: [age] year old Sex: male MRN/E# [id number] Last Office Visit: Visit date not found Chief Complaint: Patient presents with: Low Back Pain Fracture - Lumbar Vertebra HISTORY OF PRESENT ILLNESS : Winston Mari is a 68 year old male with a past medical history of arthritis, epilepsy, high cholesterol, and sciatica. He is a former smoker. The patient presented to [facility] ED on 02/11/2023 as a transfer from [facility] after falling off a roof. Imaging revealed [...] BRAIN SURGERY HX OTHER ANEURYSM REPAIR 1983 [facility]- Dr. Simpson- Brain Aneurysm FAMILY HISTORY [...] (more content not included)... Normal [facility] Olga 03-27-2023 [facility] Telephone (NEAGCLM) ----- WINSTON MARI ([id number]) 1955 M Date Time Provider Department 03/27/23 LEE ALMONTE [facility] During your visit today, we recorded the following information about you: Donna Phillip RN 03/27/2023 9:20 AM Signed Attempted to call patient at [phone]. Incorrect number listed in patient chart. Donna [...] Status:Closed by DONNA PHILLIP on 03/27/23 [facility] Olga 03-26-2023 CNPN Telephone (NEAGCLM) ----- WINSTON MARI ([id number]) 1955 M Date Time Provider Department 03/26/23 LEE ALMONTE NEAGC During your visit today, we recorded the following information about you: Donna Phillip RN 03/26/2023 2:52 PM Signed Attempted to reach patient and his brother to notify them that Winston needs x-rays completed before his appointment. Brothers' phone number is disconnected. Number listed for Winston leads to [facility]. Will attempt to contact tomorrow [...] 02/11/2023 Closed compression fracture of L2 vertebra ([facility]*02/12/2023 Closed compression fracture of L4 vertebra ([facility]*02/12/2023 Encounter Status:Closed by DONNA PHILLIP on 03/26/23 [facility] HEALTH 02-20-2023 [facility]IED HE[facility] HNO ID: [id number] Author: RT Frankie(Hazel) Service: Radiology Author Type: [...] 20, 2023 5:26 PM Normal [facility] ED NOTEon 02-20-2023 ED NOTE HNO ID: [id number] Author: Pebbles Corcoran RN Service: Emergency Medicine Author Type: Registered Nurse Type: ED Notes Filed: 02/20/2023 6:48 PM Note Text: No answer for room assignment Normal [facility] ED NOTE HNO ID: [id number] Author: Rosana Hollis RN Service: ? Author Type: Registered Nurse Type: ED Notes Filed: 02/20/2023 6:38 PM Note Text: Bed: 20-ED Expected date: Expected time: Means of arrival: Comments: TRIAGE WHEN CLEAN Normal [facility] ED Triage Noteon 02-20-2023 ED Triage Note HNO ID: [id number] Author: Kendra Dean APRN.CNP Service: ? Author [...] SIGNATURE: Kendra Dean APRN.CNP Normal [facility] XR LUMBAR 3V AP/LAT/L5-S1on 02-20-2023 XR [...] appearance to x-ray of February 12, 2023. Fashion Coordinator: PSCB Transcribe Date/Time: Feb 20 2023 6:00P Dictated by : PATRICIA LAI MD This examination was interpreted and the report reviewed and electronically signed by: PATRICIA LAI MD on Feb 20 2023 6:05PM EST [id number] Normal [facility] Basic metabolic 2000 panelon 02-13-2023 Anion gap [Moles/Vol] 9 mmol/L Normal 9-18 [facility] Comment on above: Order Comment: Speci men Type: BLOOD SPECIMEN Ordering Facility: [facility] Address: [address] [address] Performed By: #### 1 989-3 #### [facility] CLIA [id number] [address] [place] [address] [place] Calcium [Mass/Vol] 8.8 mg/dL Normal 8.5-10.2 [facility] Comment on above: Order Comment: Speci men Type: BLOOD SPECIMEN Ordering Facility: [facility] Address: [address] [place] [address] Performed By: #### 1 989-3 #### [facility] CLIA [id number] [address] [place] Chloride [Moles/Vol] 103 mmol/L Normal 97-105 [facility] Comment on above: Order Comment: Speci men Type: BLOOD SPECIMEN Ordering Facility: [facility] Address: [address] [place] [address] Performed By: #### 1 989-3 #### [facility] CLIA [id number] [address] [place] CO2 [Moles/Vol] 26 mmol/L Normal 22-30 [facility] Comment on above: Order Comment: Speci men Type: BLOOD SPECIMEN Ordering Facility: [facility] Address: [address] [place] [address] Performed By: #### 1 989-3 #### [facility] CLIA [id number] [address] [place] [address] OF [facility] Creatinine [Mass/Vol] 1.06 mg/dL Normal 0.73-1.22 [facility] Comment on above: Order Comment: Speci men Type: BLOOD SPECIMEN Ordering Facility: [facility] Address: [address] [place] [address] Performed By: #### 1 989-3 #### [facility] CLIA [id number] [address] [place] [address] ESTIMATED GLOMERULAR FILTRATION RATE 77 mL/min/1.73m??? Normal >=60 [facility] Comment on above: Order Comment: Speci men Type: BLOOD SPECIMEN Ordering Facility: [facility] Address: [address] [place] [address] Result Comment: Josee mated Glomerular Filtration Rate [...] GFR. Performed By: #### 1 989-3 #### [facility] CLIA [id number] [address] [place] [address] [place] Glucose [Mass/Vol] 119 mg/dL High 74-99 [facility] Comment on above: Order Comment: Yo brothers Type: BLOOD SPECIMEN Ordering Facility: [facility] Address: [address] [place] [address] Result Comment: The [place] [employer] (ADA) provides guidance for cutoff [...] Standards of Medical Care in Diabetes 2016, [place] [employer]. Diabetes Care. 2016.39(Suppl 1). Performed By: #### 1 989-3 #### [facility] CLIA [id number] 1 [place] [address] [place] Potassium [Moles/Vol] 4.0 mmol/L Normal 3.7-5.1 [facility] Comment on above: Order Comment: Yo brothers Type: BLOOD SPECIMEN Ordering Facility: [facility] Address: [address] [place] [address] Performed By: #### 1 989-3 #### [facility] CLIA [id number] 1 [place] [address] [place] Sodium [Moles/Vol] 138 mmol/L Normal 136-144 [facility] Comment on above: Order Comment: Yo zev Type: BLOOD SPECIMEN Ordering Facility: [facility] Address: [address] [place] [address] Performed By: #### 1 989-3 #### [facility] CLIA [id number] 1 [place] [address] [place] Urea nitrogen [Mass/Vol] 13 mg/dL Normal 9-24 [facility] Comment on above: Order Comment: Speci men Type: BLOOD SPECIMEN Ordering Facility: [facility] Address: [address] [place] [address] Performed By: #### 1 989-3 #### [facility] CLIA [id number] [address] OF [facility] CBC panel Auto (Bld)on 02-13 Erythrocyte distribution width (RBC) [Ratio] 13.9 % Normal 11.5-15.0 [facility] Comment on above: Order Comment: Speci men Type: BLOOD SPECIMEN Ordering Facility: [facility] Address: [address] [place] [address] Performed By: #### 5 8410-2 #### [facility] CLIA [id number] [address] [place] [address] Hematocrit (Bld) [Volume fraction] 34.4 % Low 39.0-51.0 [facility] Comment on above: Order Comment: Speci men Type: BLOOD SPECIMEN Ordering Facility: [facility] Address: [address] [place] [address] Performed By: #### 5 8410-2 #### [facility] CLIA [id number] [address] Hemoglobin (Bld) [Mass/Vol] 11.4 g/dL Low 13.0-17.0 [facility] Comment on above: Order Comment: Speci men Type: BLOOD SPECIMEN Ordering Facility: [facility] Address: [address] [address] Performed By: #### 5 8410-2 #### [facility] CLIA [id number] [address] [place] MCH (RBC) [Entitic mass] 29.8 pg Normal 26.0-34.0 [facility] Comment on above: Order Comment: Speci men Type: BLOOD SPECIMEN Ordering Facility: [facility] Address: [address] [place] [address] Performed By: #### 5 8410-2 #### [facility] CLIA [id number] [address] MCHC (RBC) [Mass/Vol] 33.1 g/dL Normal 30.5-36.0 [facility] Comment on above: Order Comment: Speci men Type: BLOOD SPECIMEN Ordering Facility: [facility] Address: [address] [place] [address] Performed By: #### 5 8410-2 #### [facility] CLIA [id number] [address] MCV (RBC) [Entitic vol] 90.1 fL Normal 80.0-100.0 [facility] Comment on above: Order Comment: Speci men Type: BLOOD SPECIMEN Ordering Facility: [facility] Address: [address] [place] [address] Performed By: #### 5 8410-2 #### [facility] CLIA [id number] [address] Nucleated RBC (Bld) [#/Vol] 10*3/uL Normal <0.01 [facility] Comment on above: Order Comment: Speci men Type: BLOOD SPECIMEN Ordering Facility: [facility] Address: [address] [place] [address] Performed By: #### 5 8410-2 #### [facility] CLIA [id number] [address] Platelet mean volume (Bld) [Entitic vol] 9.3 fL Normal 9.0-12.7 [facility] Comment on above: Order Comment: Speci men Type: BLOOD SPECIMEN Ordering Facility: [facility] Address: [address] [place] [address] Performed By: #### 5 8410-2 #### [facility] CLIA [id number] [address] [place] Platelets (Bld) [#/Vol] 274 10*3/uL Normal 150-400 [facility] Comment on above: Order Comment: Speci men Type: BLOOD SPECIMEN Ordering Facility: [facility] Address: [address] [place] [address] Performed By: #### 5 8410-2 #### [facility] CLIA [id number] [address] RBC (Bld) [#/Vol] 3.82 10*6/uL Low 4.20-6.00 [facility] Comment on above: Order Comment: Speci men Type: BLOOD SPECIMEN Ordering Facility: [facility] Address: [address] [place] [address] Performed By: #### 5 8410-2 #### [facility] CLIA [id number] [address] WBC (Bld) [#/Vol] 6.34 10*3/uL Normal 3.70-11.00 [facility] Comment on above: Order Comment: Speci men Type: BLOOD SPECIMEN Ordering Facility: [facility] Address: [address] [place] [address] Performed By: #### 5 8410-2 #### [facility] CLIA [id number] [address] CNDSon 02-13-2023 CNDS HNO ID: [id number] Author: Prabhakar Ramirez PA-C Service: General Surgery Author Type: Physician Catia Designer Type: Discharge Summary Filed: 02/13/2023 1:02 PM [...] Team: Attending Provider: Yessica Gottlieb MD Consulting: Lee Almonte MD MY CONDITION AT DISCHARGE: Stable REASON I WAS IN THE HOSPITAL: Treatment of L2 and L4 compression fractures SUMMARY OF WHAT HAPPENED WHILE I WAS IN THE HOSPITAL: Mr. Winston Mari presented to [facility] as a transfer from [facility] on 02/11/2023 for treatment of injuries sustained [...] you become constipated, you may use any bseq-ezd-rneygno treatment such as Milk of Magnesia, Sennakot, [...] weeks Patient/Parents to call for appointment?: Yes Lee Almonte MD [phone] [address] PCP Requested Referral Follow-Up Appointment When: In 2 weeks Patient/Parents to call for appointment?: Yes Eugenio Mayen IV, DO [phone] 400 COL (more content not included)... Normal [facility] CONSULT PROGon 02-13-2023 CONSULT PROG HNO ID: [id number] Author: Vince Márquez APRN.COMPUTER METEOROLOGIST Service: Neurosurgery Author Type: Nurse Practitioner Type: Consult Progress Note Filed: 02/13/2023 12:17 PM Note Text: Neurosurgery Progress Note SERVICE DATE: 02/13/2023 SUBJECTIVE: NAEON OBJECTIVE: Vitals: Temp (24hrs), Av.7 ?C (98.1 ?F), Min:36.6 ?C (97.9 ?F), Max:36.8 ?C (98.2 ?F) BP 135/75 Pulse 77 Temp 36.8 ?C (98.2 ?F) (Oral) Resp 16 Ht 180.3 cm (5' 11") Wt 68 kg (150 lb) SpO2 99% BMI 20.92 kg/m? O2 Therapy: Room Air IANDO: Date 02/12/23 0700 - 02/13/23 0659 02/13/23 0700 - 02/14/23 0659 Shift 3303-6460 5293-5187 3306-2127 24 Hour Total 9246-8074 9939-9476 7220-9507 24 Hour Total INTAKE PO 360 120 480 PO 360 120 480 Shift Total 360 120 480 OUTPUT Urine 650 1711 844 0434 Void (ml) 650 2622 642 5198 Shift Total 650 3775 135 2362 Weight (kg) 68 68 68 68 68 [...] L2 and L4 similar to prior MRI. Fashion Coordinator: CHRISTIN Transcribe Date/Time: Feb 13 2023 8:46A [...] updated accordingly on 02/13/2023 SIGNATURE: Vince Márquez APRN.ANNE PATIENT NAME: Winston Mari DATE: February 13, 2023 TIME: 11:16 AM Vince Márquez APRN.COMPUTER METEOROLOGIST Pager: [phone] Neurosurgery Pager: [phone] [facility] THERAPY NTon 02-13-2023 THERAPY NT HNO ID: [id number] Author: Ileana Brooke PT Service: Physical Therapy Author Type: Physical Therapist Type: Therapy (PT/OT/Speech/Resp) Filed: 02/13/2023 11:19 AM Note Text: Physical Therapy Evaluation SERVICE DATE: 02/13/2023 SERVICE TIME: 901 to 924 ROOM: [place] [address] Recommended Discharge Disposition: Home Recommended Discharge Disposition [...] Pt admitted 02/11 as a transfer from [facility] after a fall from his roof at [...] (more content not included)... Normal [facility] 25(OH)D3 SerPl-mCncon 2022 25-hydroxyvitamin D3 [Mass/Vol] 19.8 ng/mL Low >=30.0 [facility] Comment on above: Order Comment: Speci men Type: BLOOD SPECIMEN Ordering Facility: [facility] Address: [address] [place] [phone] Result Comment: Clas sification of 25 [place] Vitamin D status: Deficiency: <= 20.0 ng/ml. Insufficiency: 21.0-29.0 ng/ml. Sufficiency: >= 30.0 ng/ml. Performed By: #### 1 989-3 #### [facility] CLIA [id number] 1 [place] [address] [place] Basic metabolic 2000 panelon 02-12-2023 Anion gap [Moles/Vol] 11 mmol/L Normal 9-18 [facility] Comment on above: Order Comment: Speci men Type: BLOOD SPECIMEN Ordering Facility: [facility] Address: [address] [place] [address] Performed By: #### 1 989-3 #### [facility] CLIA [id number] [address] [place] Calcium [Mass/Vol] 8.8 mg/dL Normal 8.5-10.2 [facility] Comment on above: Order Comment: Speci men Type: BLOOD SPECIMEN Ordering Facility: [facility] Address: [address] [place] [address] Performed By: #### 1 989-3 #### [facility] CLIA [id number] [address] [place] Chloride [Moles/Vol] 104 mmol/L Normal 97-105 [facility] Comment on above: Order Comment: Speci men Type: BLOOD SPECIMEN Ordering Facility: [facility] Address: [address] [place] [address] Performed By: #### 1 989-3 #### [facility] CLIA [id number] [address] [place] CO2 [Moles/Vol] 23 mmol/L Normal 22-30 [facility] Comment on above: Order Comment: Speci men Type: BLOOD SPECIMEN Ordering Facility: [facility] Address: [address] [place] [address] Performed By: #### 1 989-3 #### [facility] CLIA [id number] [address] [place] Creatinine [Mass/Vol] 0.87 mg/dL Normal 0.73-1.22 [facility] Comment on above: Order Comment: Speci men Type: BLOOD SPECIMEN Ordering Facility: [facility] Address: [address] [place] [address] Performed By: #### 1 989-3 #### [facility] CLIA [id number] [address] [place] ESTIMATED GLOMERULAR FILTRATION RATE 95 mL/min/1.73m??? Normal >=60 [facility] Comment on above: Order Comment: Yo brothers Type: BLOOD SPECIMEN Ordering Facility: [facility] Address: [address] [address] Result Comment: Josee mated Glomerular Filtration Rate [...] GFR. Performed By: #### 1 989-3 #### [facility] CLIA [id number] [address] [place] [address] [place] Glucose [Mass/Vol] 83 mg/dL Normal 74-99 [facility] Comment on above: Order Comment: Yo brothers Type: BLOOD SPECIMEN Ordering Facility: [facility] Address: [address] [place] [address] Result Comment: The [place] Diabetes [employer] (ADA) provides guidance for cutoff [...] Standards of Medical Care in Diabetes 2016, [place] [employer]. Diabetes Care. 2016.39(Suppl 1). Performed By: #### 1 989-3 #### [facility] CLIA [id number] 1 [place] [address] [place] Potassium [Moles/Vol] 3.9 mmol/L Normal 3.7-5.1 [facility] Comment on above: Order Comment: Yo brothers Type: BLOOD SPECIMEN Ordering Facility: [facility] Address: [address] [place] [address] Performed By: #### 1 989-3 #### [facility] CLIA [id number] [address] OF [facility] Sodium [Moles/Vol] 138 mmol/L Normal 136-144 [facility] Comment on above: Order Comment: Speci men Type: BLOOD SPECIMEN Ordering Facility: [facility] Address: [address] [address] Performed By: #### 1 989-3 #### [facility] CLIA [id number] [address] OF [facility] Urea nitrogen [Mass/Vol] 9 mg/dL Normal 9-24 [facility] Comment on above: Order Comment: Speci men Type: BLOOD SPECIMEN Ordering Facility: [facility] Address: [address] [place] [address] Performed By: #### 1 989-3 #### [facility] CLIA [id number] [address] [place] [address] CASE MGT INIT ASSESon 2022 CASE MGT INIT ASSES HNO ID: [id number] Author: YOSHI Epps Service: ? Author Type: Mold Stripper Type: Care Mgt Initial Assessment Filed: 02/12/2023 [...] Current Advance Directive: Health Care Power of Hot Header Operator In Chart: Yes Up To Date [...] Patient Goal(s): Be able to go home [place] Explained: [place] Given: No Reason Not Given: [...] or get rid of a hangover (eye program and research coordinator)? Not Applicable 6. CAGE Screening? No 7. [...] Pt. Pt plans to return home at me. Pt is awaiting TLSO and PT/OT evals. Pt fell off the roof, while cleaning the gutters. Pt admits to using gummies for his lung disease and denies any other substance use. Pt's brother will transport him home at [place]. +PCP, +RX, +DME SIGNATURE: YOSHI Epps PATIENT NAME: Winston Mari DATE: February 12, 2023 TIME: 11:08 AM C (more content not included)... Normal [facility] CBC panel Auto (Bld)on 02-12 Erythrocyte distribution width (RBC) [Ratio] 14.0 % Normal 11.5-15.0 [facility] Comment on above: Order Comment: Speci men Type: BLOOD SPECIMEN Ordering Facility[facility] Address: [address] [address] Performed By: #### 5 8410-2 #### [facility] CLIA [id number] 1 [place] [address] [place] Hematocrit (Bld) [Volume fraction] 37.0 % Low 39.0-51.0 [facility] Comment on above: Order Comment: Speci men Type: BLOOD SPECIMEN Ordering Facility: [facility] Address: [address] [place] [address] Performed By: #### 5 8410-2 #### [facility] CLIA [id number] [address] Hemoglobin (Bld) [Mass/Vol] 12.3 g/dL Low 13.0-17.0 [facility] Comment on above: Order Comment: Speci men Type: BLOOD SPECIMEN Ordering Facility: [facility] Address: [address] [place] [address] Performed By: #### 5 8410-2 #### [facility] CLIA [id number] [address] MCH (RBC) [Entitic mass] 29.9 pg Normal 26.0-34.0 [facility] Comment on above: Order Comment: Speci men Type: BLOOD SPECIMEN Order[facility] Address: [address] [place] [address] Performed By: #### 5 8410-2 #### [facility] CLIA [id number] [address] MCHC (RBC) [Mass/Vol] 33.2 g/dL Normal 30.5-36.0 [facility] Comment on above: Order Comment: Speci men Type: BLOOD SPECIMEN Order[facility] Address: [address] [place] [address] Performed By: #### 5 8410-2 #### [facility] CLIA [id number] [address] MCV (RBC) [Entitic vol] 90.0 fL Normal 80.0-100.0 [facility] Comment on above: Order Comment: Speci men Type: BLOOD SPECIMEN Order[facility] Address: [address] [place] [address] Performed By: #### 5 8410-2 #### [facility] CLIA [id number] [address] Nucleated RBC (Bld) [#/Vol] 10*3/uL Normal <0.01 [facility] Comment on above: Order Comment: Speci men Type: BLOOD SPECIMEN Ordering Facility[facility] Address: [address] [address] Performed By: #### 5 8410-2 #### [facility] CLIA [id number] [address] [place] Platelet mean volume (Bld) [Entitic vol] 9.0 fL Normal 9.0-12.7 [facility] Comment on above: Order Comment: Speci men Type: BLOOD SPECIMEN Ordering [facility] Address: [address] [address] Performed By: #### 5 8410-2 #### [facility] CLIA [id number] [address] [place] Platelets (Bld) [#/Vol] 288 10*3/uL Normal 150-400 [facility] Comment on above: Order Comment: Speci men Type: BLOOD SPECIMEN Ordering Facility[facility] Address: [address] [address] Performed By: #### 5 8410-2 #### [facility] CLIA [id number] [address] [place] RBC (Bld) [#/Vol] 4.11 10*6/uL Low 4.20-6.00 [facility] Comment on above: Order Comment: Speci men Type: BLOOD SPECIMEN Ordering Facility[facility] Address: [address] [address] Performed By: #### 5 8410-2 #### [facility] CLIA [id number] [address] [place] WBC (Bld) [#/Vol] 8.65 10*3/uL Normal 3.70-11.00 [facility] Comment on above: Order Comment: Speci men Type: BLOOD SPECIMEN Order[facility] Address: [address] [place] [address] Performed By: #### 5 8410-2 #### [facility] CLIA [id number] [address] Erythrocyte distribution width (RBC) [Ratio] 13.9 % Normal 11.5-15.0 [facility] Comment on above: Order Comment: Speci men Type: BLOOD SPECIMEN Ordering [facility] Address: [address] [place] [address] Performed By: #### 5 8410-2 #### [facility] CLIA [id number] [address] Hematocrit (Bld) [Volume fraction] 37.0 % Low 39.0-51.0 [facility] Comment on above: Order Comment: Speci men Type: BLOOD SPECIMEN Order[facility] Address: [address] [place] [address] Performed By: #### 5 8410-2 #### [facility] CLIA [id number] [address] Hemoglobin (Bld) [Mass/Vol] 12.2 g/dL Low 13.0-17.0 [facility] Comment on above: Order Comment: Speci men Type: BLOOD SPECIMEN Order[facility] Address: [address] [place] [address] Performed By: #### 5 8410-2 #### [facility] CLIA [id number] [address] MCH (RBC) [Entitic mass] 29.8 pg Normal 26.0-34.0 [facility] Comment on above: Order Comment: Speci men Type: BLOOD SPECIMEN [facility] Address: [address] [place] [address] Performed By: #### 5 8410-2 #### [facility] CLIA [id number] [address] MCHC (RBC) [Mass/Vol] 33.0 g/dL Normal 30.5-36.0 [facility] Comment on above: Order Comment: Speci men Type: BLOOD SPECIMEN Order[facility] Facility: [facility] Address: [address] [place], [place] [address] Performed By: #### 5 8410-2 #### [facility] CLIA [id number] [address] MCV (RBC) [Entitic vol] 90.5 fL Normal 80.0-100.0 [facility] Comment on above: Order Comment: Speci men Type: BLOOD SPECIMEN Ordering Facility[facility] Address: [address] [address] Performed By: #### 5 8410-2 #### [facility] CLIA [id number] [address] Nucleated RBC (Bld) [#/Vol] 10*3/uL Normal <0.01 [facility] Comment on above: Order Comment: Speci men Type: BLOOD SPECIMEN Order[facility] Address: [address] [address] Performed By: #### 5 8410-2 #### [facility] CLIA [id number] [address] [facility] Platelet mean volume (Bld) [Entitic vol] 8.6 fL Low 9.0-12.7 [facility] Comment on above: Order Comment: Speci men Type: BLOOD SPECIMEN Order[facility] Address: [address] [address] Performed By: #### 5 8410-2 #### [facility] CLIA [id number] [address] Platelets (Bld) [#/Vol] 279 10*3/uL Normal 150-400 [facility] Comment on above: Order Comment: Speci men Type: BLOOD SPECIMEN Order[facility] Address: [address] [address] Performed By: #### 5 8410-2 #### [facility] CLIA [id number] [address] [place] RBC (Bld) [#/Vol] 4.09 10*6/uL Low 4.20-6.00 [facility] Comment on above: Order Comment: Speci men Type: BLOOD SPECIMEN Ordering Facility: [facility] Address: [address] Performed By: #### 5 8410-2 #### [facility] CLIA [id number] [address] OF [facility] WBC (Bld) [#/Vol] 9.06 10*3/uL Normal 3.70-11.00 [facility] Comment on above: Order Comment: Speci men Type: BLOOD SPECIMEN Order[facility] Facility[facility] Address: [address] [place] [id number] Performed By: #### 5 8410-2 #### [facility] CLIA [id number] [address] CONSULTon 02-12-2023 CONSULT HNO ID: [id number] Author: Pretty Cardenas MD Service: Pain Management [...] lower back pain. Patient was seen at [facility]. CT HNCAPT completed and demonstrated acute [...] once daily., Disp: , Rfl: methylPREDNISolone (MEDROL, ANTONINA,) 4 mg Dose-Pack, Take by mouth. As directed on package (Patient n (more content not included)... Normal [facility] CONSULT HNO ID: [id number] Author: Vince Márquez APRN.COMPUTER METEOROLOGIST Service: Neurosurgery Author Type: Nurse Practitioner Type: Consults Filed: 02/12/2023 12:18 PM Note Text: ----- Attestation signed by Lee Almonte MD at 02/12/2023 5:14 PM Attending Note: Clark findings confirmed. Patient examined. Discussed with the nurse practitioner and the patient. Plan as outlined. Lee Almonte MD ----- CONSULT: NEUROSURGERY SERVICE Patient [...] BRAIN SURGERY HX OTHER ANEURYSM REPAIR [facility]- Dr. Simpson- Brain Aneurysm FAMILY HISTORY [...] iv infusion 100 mL/hr INTRAVENOUS CONTINUOUS Shira Glaarza DO 100 mL/hr at 02/11/23 2343 100 [...] (more content not included)... Normal [facility] Comprehensive metabolic 2000 panelon 02-12-2023 Albumin [Mass/Vol] 3.9 g/dL Normal 3.9-4.9 [facility] Comment on above: Order Comment: Speci men Type: BLOOD SPECIMEN [facility] Facility[facility] Address: [address] [place] [phone] Performed By: #### 1 989-3 #### [facility] CLIA [id number] [address] [place] [address] [place] ALP [Catalytic activity/Vol] 78 U/L Normal 38-113 [facility] Comment on above: Order Comment: Speci men Type: BLOOD SPECIMEN Ordering Facility[facility] Address: [address] [address] Performed By: #### 1 989-3 #### [facility] CLIA [id number] [address] ALT With P-5'-P [Catalytic activity/Vol] 19 U/L Normal 10-54 [facility] Comment on above: Order Comment: Speci men Type: BLOOD SPECIMEN Order[facility] Facility[facility] Address: [address] [place] [address] Performed By: #### 1 989-3 #### [facility] CLIA [id number] [address] Anion gap [Moles/Vol] 11 mmol/L Normal 9-18 [facility] Comment on above: Order Comment: Speci men Type: BLOOD SPECIMEN Order[facility] Facility[facility] Address: [address] [place] [address] Performed By: #### 1 989-3 #### [facility] [facility] CLIA [id number] [address] AST With P-5'-P [Catalytic activity/Vol] 21 U/L Normal 14-40 [facility] Comment on above: Order Comment: Speci men Type: BLOOD SPECIMEN Ordering Facility: [facility] Address: [address] [address] Performed By: #### 1 989-3 #### [facility] CLIA [id number] [address] Bilirubin [Mass/Vol] 0.9 mg/dL Normal 0.2-1.3 [facility] Comment on above: Order Comment: Speci men Type: BLOOD SPECIMEN Ordering Facility: [facility] Address: [address] [address] Performed By: #### 1 989-3 #### [facility] CLIA [id number] [address] [place] Calcium [Mass/Vol] 8.9 mg/dL Normal 8.5-10.2 [facility] Comment on above: Order Comment: Speci men Type: BLOOD SPECIMEN Ordering Facility: [facility] Address: [address] [place] [address] Performed By: #### 1 989-3 #### [facility] CLIA [id number] [address] [place] Chloride [Moles/Vol] 105 mmol/L Normal 97-105 [facility] Comment on above: Order Comment: Speci men Type: BLOOD SPECIMEN Ordering Facility: [facility] Address: [address] [place] [address] Performed By: #### 1 989-3 #### [facility] CLIA [id number] [address] CO2 [Moles/Vol] 24 mmol/L Normal 22-30 [facility] Comment on above: Order Comment: Speci men Type: BLOOD SPECIMEN Ordering Facility: [facility] Address: [address] [place] [address] Performed By: #### 1 989-3 #### [facility] CLIA [id number] [address] OF [facility] Creatinine [Mass/Vol] 0.87 mg/dL Normal 0.73-1.22 [facility] Comment on above: Order Comment: Speci men Type: BLOOD SPECIMEN Ordering Facility: [facility] Address: [address] [place] [address] Performed By: #### 1 989-3 #### [facility] CLIA [id number] [address] ESTIMATED GLOMERULAR FILTRATION RATE 95 mL/min/1.73m??? Normal >=60 [facility] Comment on above: Order Comment: Speci men Type: BLOOD SPECIMEN Ordering Facility: [facility] Address: [address] [place] [address] Result Comment: Josee mated Glomerular Filtration Rate [...] GFR. Performed By: #### 1 989-3 #### [facility] CLIA [id number] 1 [place] [address] [place] Glucose [Mass/Vol] 85 mg/dL Normal 74-99 [facility] Comment on above: Order Comment: Yo brothers Type: BLOOD SPECIMEN Ordering Facility: [facility] Address: [address] [place], [place] [phone] Result Comment: The [place] Diabetes [employer] (ADA) provides guidance for cutoff [...] Standards of Medical Care in Diabetes 2016, [place] [employer]. Diabetes Care. 2016.39(Suppl 1). Performed By: #### 1 989-3 #### [facility] CLIA [id number] 1 [place] [address] [place] Potassium [Moles/Vol] 3.8 mmol/L Normal 3.7-5.1 [facility] Comment on above: Order Comment: Yo brothers Type: BLOOD SPECIMEN Ordering Facility: [facility] Address: [address] [place], [place] [phone] Performed By: #### 1 989-3 #### [facility] CLIA [id number] 1 [place] [address] [place] Protein [Mass/Vol] 6.4 g/dL Normal 6.3-8.0 [facility] Comment on above: Order Comment: Speci men Type: BLOOD SPECIMEN Ordering Facility: [facility] Address: [address] [place] [address] Performed By: #### 1 989-3 #### [facility] CLIA [id number] [address] Sodium [Moles/Vol] 140 mmol/L Normal 136-144 [facility] Comment on above: Order Comment: Speci men Type: BLOOD SPECIMEN Ordering Facility: [facility] Address: [address] [place] [address] Performed By: #### 1 989-3 #### [facility] CLIA [id number] [address] Urea nitrogen [Mass/Vol] 8 mg/dL Low 9-24 [facility] Comment on above: Order Comment: Speci men Type: BLOOD SPECIMEN Ordering Facility: [facility] Address: [address] [place] [address] Performed By: #### 1 989-3 #### [facility] CLIA [id number] [address] ED NOTEon 02-12-2023 ED NOTE HNO ID: [id number] Author: Gaby Carlisle RN Service: Nursing Author Type: Registered Nurse Type: ED Notes Filed: 02/11/2023 11:07 PM Note Text: Report called to Jeannie [facility] for room 5265. No further questions at this time. Room ready, will send patient. [facility] ED NOTE HNO ID: [id number] Author: Gaby Carlisle RN Service: Nursing Author Type: Registered Nurse Type: ED Notes Filed: 02/11/2023 10:35 PM Note Text: RN attempted to call report. RN unavailable. [facility] ED NOTE HNO ID: [id number] Author: Gaby Carlisle RN Service: Nursing Author Type: Registered Nurse Type: ED Notes Filed: 02/11/2023 10:33 PM Note Text: MRI screening form filled and faxed. [facility] ED PROV NOTEon 02-12-2023 ED PROV NOTE HNO ID: [id number] Author: Julius Castellon MD Service: Emergency Medicine Author Type: Physician Type: ED Provider Notes Filed: 02/13/2023 9:00 PM Note Text: ED Provider Note Patient Name: Winston Mari : 1955 SERVICE DATE: 02/11/23 History Patient presents with: Trauma: Transfer from [facility]. Patient with L2 fracture after falling off roof 02/11 afternoon. C/O new left foot tingling intermittently since fall. GCS 15.-thinners -LOC -hit head Patient is a 68-year-old male who presents as a transfer from [facility]. Patient was on his roof when he fell off, 25 to 30 feet onto the ground. Patient did not lose consciousness. Patient states he landed on his legs and does not believe that he hit his head. Patient heard a crack in his back. Patient was taken to [facility] where he was found to have a [...] BRAIN SURGERY HX OTHER ANEURYSM REPAIR 1983 [facility]- Dr. Simpson- Brain Aneurysm FAMILY HISTORY [...] 68 kg (150 lb) 1.803 m (5' 11") Physical Exam Constitutional: General: He is not [...] (more content not included)... Normal [facility] Ethanol SerPl-mCncon 023 Ethanol [Mass/Vol] mg/dL Normal <11 [facility] Comment on above: Order Comment: Speci men Type: BLOOD SPECIMEN Ordering Facility: [facility] Address: [address] [place], [place] [phone] Performed By: #### 5 643-2 #### [facility] CLIA [id number] 1 [place] [address] [place] HISTORY PHYSICALon 3 HISTORY PHYSICAL HNO ID: [id number] Author: Shira Galarza DO Service: General Surgery Author Type: Resident Type: HANDP Filed: 02/11/2023 10:41 PM Note Text: ----- Attestation signed by Basim Cordero MD at 03/07/2023 4:20 PM Trauma [...] pending Spine recommendations Incidentals noted as well. Basim Cordero MD Delayed entry ----- TRAUMA SURGERY HANDP [facility] ARRIVAL DATE: 02/11/2023 ARRIVAL TIME: 21:30 CATEGORY: transfer INJURY DATE: 02/11/2023 INJURY TIME: this afternoon Subjective 68 year old male with no major PMH aside from DDD here as a trauma transfer after a fall from a roof. Patient states he was on top of his roof today cleaning his gutters. He leaned "too far forward" and fell about 10-15 feet off the roof. Landed on his feet. [place] and heard a large crack in his lower back and acute onset of low back pain. Denies hitting his head. Denies LOC. No blood thinners. Went to [facility]. CT [facility] completed showed acute L2 fracture. [...] BRAIN SURGERY HX OTHER ANEURYSM REPAIR 1983 [facility]- Dr. Simpson- Brain Aneurysm Social History [...] kg (150 lb) Height: 180.3 cm (5' 11") NEURO: Alert AND Oriented x 3, GCS [...] (more content not included)... Normal [facility] Lipase SerPl-cCncon 02-13-20 23 Lipase [Catalytic activity/Vol] 84 U/L High 16-61 [facility] Comment on above: Order Comment: Speci men Type: BLOOD SPECIMEN Ordering Facility: [facility] Address: [place] [address] Performed By: #### 1 989-3 #### [facility] CLIA [id number] 1 [place] [address] [place] MRI LUMBAR SPINE [...] and assume there are 5 lumbar-type vertebrae. Fashion Coordinator: PSCB Transcribe Date/Time: Feb 12 2023 8:08A Dictated by : MISTI IRVIN MD This examination was interpreted and the report reviewed and electronically signed by: MISTI IRVIN MD on Feb 12 2023 8:25AM EST [id number] Normal [facility] PT panel Coag (PPP)on 2022 INR Coag (PPP) [Relative time] 1.0 {INR} Normal 0.9-1.3 [facility] Comment on above: Order Comment: Speci men Type: BLOOD SPECIMEN Ordering Facility: [facility] Address: [place] [address] Result Comment: Ashley min K Antagonist (VKA) Therapeutic Range: INR 2 to 3 (Target INR of 2.5) Note: For patients treated with VKA drugs, such as warfarin, the [place] [employer] 2012 Guideline recommends [...] Chest 2012, 141:7S-47S Kasie RA, et al. [facility] 2017, 70: 252-289 Performed By: #### 3 4528-0, 22888-6 #### [facility] CLIA [id number] [address] PT Coag (PPP) [Time] 10.9 s Normal 9.7-13.0 [facility] Comment on above: Order Comment: Speci men Type: BLOOD SPECIMEN Ordering Facility: [facility] Address: [address] [place], [place] [phone] Performed By: #### 3 4528-0, 68787-8 #### [facility] CLIA [id number] [address] THERAPY NTon 02-12-2023 THERAPY NT HNO ID: [id number] Author: ENOC Mckeon/Roshan Service: Occupational Therapy Author Type: Occupational Therapist Type: Therapy (PT/OT/Speech/Resp) Filed: 02/12/2023 9:52 AM Note Text: OCCUPATIONAL THERAPY MISSED VISIT SERVICE DATE: 02/12/2023 SERVICE TIME: 951 to 951 ROOM: [place] [address] Patient not seen due to Hold: Clinical Appropriateness (Pending neurosurgery input. Will hold for now). SIGNATURE: ASIF Mckeon PATIENT NAME: Winston Mari DATE: February 12, 2023 TIME: 9:52 AM Normal [facility] THERAPY NT HNO ID: [id number] Author: Ileana Brooke, PT Service: Physical Therapy Author Type: Physical Therapist Type: Therapy (PT/OT/Speech/Resp) Filed: 02/12/2023 8:10 AM Note Text: PHYSICAL THERAPY MISSED VISIT SERVICE DATE: 02/12/2023 SERVICE TIME: 809 to 08 ROOM: [id number] ([facility]) Patient not seen due to Hold: Clinical Appropriateness (awaiting neurosurg consult and plan). SIGNATURE: Ileana Brooke PT PATIENT NAME: Winston Mari DATE: February 12, 2023 TIME: 8:10 AM Normal [facility] TOX SCREEN ROUT URon 023 Amphetamines Confirm (U) [Mass/Vol] Negative Normal Negative [facility] Comment on above: Order Comment: Speci men Type: BLOOD SPECIMEN Ordering Facility[facility] Address: [address] [place] [address] Result Comment: Cuto ff threshold at 1000 ng/mL. Performed By: #### 1 989-3 #### [facility] CLIA [id number] [address] [place] [address] [place] BARBITURATES, URINE Negative Normal Negative [facility] Comment on above: Order Comment: Speci men Type: BLOOD SPECIMEN Ordering Facility: [facility] Address: [address] [place] [address] Result Comment: Cuto ff threshold at 200 ng/mL. Performed By: #### 1 989-3 #### [facility] CLIA [id number] 1 [place] [address] [place] BENZODIAZEPINES, UR Negative Normal Negative [facility] Comment on above: Order Comment: Speci men Type: BLOOD SPECIMEN Order[facility]: [facility] Address: [address] [place] [address] Result Comment: Cuto ff threshold at 200 ng/mL. Performed By: #### 1 989-3 #### [facility] CLIA [id number] [address] [place] CANNABINOIDS,URINE Positive Abnormal Negative [facility] Comment on above: Order Comment: Speci men Type: BLOOD SPECIMEN Ordering Facility: [facility] Address: [address] [address] Result Comment: Cuto ff threshold at 50 ng/mL. Performed By: #### 1 989-3 #### [facility] CLIA [id number] [address] Cocaine Ql (U) Negative Normal Negative [facility] Comment on above: Order Comment: Speci men Type: BLOOD SPECIMEN Ordering Facility: [facility] Address: [address] [address] Result Comment: Cuto ff threshold at 300 ng/mL. Performed By: #### 1 989-3 #### [facility] CLIA [id number] [address] Ethanol (U) [Mass/Vol] <11 Normal <11 [facility] Comment on above: Order Comment: Speci men Type: BLOOD SPECIMEN Order[facility] Address: [address] [place] [address] Performed By: #### 1 989-3 #### [facility] CLIA [id number] [address] Opiates Screen Ql (U) Positive Abnormal Negative [facility] Comment on above: Order Comment: Speci men Type: BLOOD SPECIMEN Order[facility] Address: [address] [place] [address] Result Comment: Cuto ff threshold at 300 ng/mL. Performed By: #### 1 989-3 #### [facility] CLIA [id number] [address] oxyCODONE cutoff Screen (U) [Mass/Vol] Negative Normal Negative [facility] Comment on above: Order Comment: Speci men Type: BLOOD SPECIMEN Order[facility] Address: [address] [address] Result Comment: Cuto ff threshold at 100 ng/mL. Performed By: #### 1 989-3 #### [facility] CLIA [id number] [address] Phencyclidine Ql (U) Negative Normal Negative [facility] Comment on above: Order Comment: Speci men Type: BLOOD SPECIMEN Order[facility]: [facility] Address: [address] [place] [address] Result Comment: Cuto ff threshold at 25 ng/mL. Performed By: #### 1 989-3 #### [facility] CLIA [id number] [address] TYPE + SCREENon 02-12-2023 ABO O Normal [facility] Comment on above: Order Comment: Speci men Type: BLOOD SPECIMENOrdering Facility: [facility] Address: [address] [place] [address] Performed By: #### T SCR ####[facility] [id number] [address] HISTORICAL AB SCR STATUS Negative Normal [facility] Comment on above: Order Comment: Speci men Type: BLOOD SPECIMENOrdering Facility: [facility] Address: [address] [place] [address] Performed By: #### T SCR ####[facility]ANKCLIA [id number] [address] Rh Nom (Bld) Positive Normal [facility] Comment on above: Order Comment: Speci men Type: BLOOD SPECIMENOrdering Facility: [facility] Address: [address] [place] [address] Performed By: #### T SCR ####[facility]ANKCLIA [id number] [address] TYPE AND SCREEN EXPIRATION 02/14/2023 23:59 Normal [facility] Comment on above: Order Comment: Speci men Type: BLOOD SPECIMENOrdering Facility: [facility] Address: [address] [place] [address] Performed By: #### T SCR ####[facility] BANKCLIA [id number] [address] [place] XR LUMBAR 2V FLEX/EXTon [...] L2 and L4 similar to prior MRI. Fashion Coordinator: PSCB Transcribe Date/Time: Feb 13 2023 8:46A Dictated by : ALEXANDER CHOPRA MD This examination was interpreted and the report reviewed and electronically signed by: ALEXANDER CHOPRA MD on Feb 13 2023 8:49AM EST [id number] Normal [facility] aPTT PPPon 02-12-2023 aPTT Coag (PPP) [Time] 28.8 s Normal 23.0-32.4 [facility] Comment on above: Order Comment: Speci men Type: BLOOD SPECIMEN [facility] Address: [address] [place] [address] Performed By: #### 3 4528-0, 85756-0 #### [facility] CLIA [id number] [address] [id number] [place] Absolute lymphocyte countOrd ered By: Dr. Mari on 02-11-2023 Lymphocytes Auto (Unsp spec) [#/Vol] 1.64 10*3/uL 0.83-4.51 [facility] Basophil percentageOrdered B y: Dr. Mari on 02-11-2023 Basophil percentage 0 SEEN /hpf 0-5 [facility] Basophils/100 WBC (Bld) 0.7 % 0-1 [facility] Bilirubin [Mass/Vol] 0.80 mg/dL 0.20-1.00 [facility] Comment on above: For patients on eltr ombopag therapy, use of Dimension [place] TBIL is not recommended. Chloride [Moles/Vol] 110 mmol/L 98-107 [facility] Eosinophils/100 WBC (Bld) 2.6 % 0-5 [facility] Glucose [Mass/Vol] 103 mg/dL 74-106 [facility] Comment on above: Fasting Glucose resu lt from 100 to 125 mg/dL suggests IMPAIRED HOMEOSTASIS per A.D.A. criteria. Neutrophils (Bld) [#/Vol] 5.8 10*3/uL 2.0-7.7 [facility] Neutrophils/100 WBC (Bld) 69.1 % 47-70 [facility] Potassium [Moles/Vol] 4.0 mmol/L 3.5-5.1 [facility] Comment on above: Slight Hemolysis, Re sult may be falsely increased. Protein [Mass/Vol] 6.6 g/dL 6.4-8.2 [facility] Sodium [Moles/Vol] 137 mmol/L 136-145 [facility] WBC (Bld) [#/Vol] 8.4 10*3/uL 4.4-11.0 [facility] Bilirubin Test strip Ql (U)O rdered By: Dr. Mari on 02-11-2023 Bilirubin Ql (U) Negative Negative [facility] Blood erythrocytes count (nu mber/volume)Ordered By: Dr. Mari on 02-11-2023 RBC (Bld) [#/Vol] 4.10 10*6/uL 4.6-6.2 [facility] Blood hemoglobin measurement (mass/volume)Ordered By: Dr. Mari on 02-11-2023 Hemoglobin (Bld) [Mass/Vol] 12.6 g/dL 13.0-16.5 [facility] Blood lymphocytes/100 leukoc ytesOrdered By: Dr. Mari on 02-11-2023 Lymphocytes/100 WBC (Bld) 19.5 % 19-41 [facility] Blood monocytes/100 leukocyt esOrdered By: Dr. Mari on 02-11-2023 Monocytes/100 WBC (Bld) 6.8 % 0-10 [facility] Blood platelet mean volumeOr dered By: Dr. Mari on 02-11-2023 Platelet mean volume (Bld) [Entitic vol] 9.0 fL 6.2-12.0 [facility] Determination of erythrocyte mean corpuscular volume (MCV)Ordered By: Dr. Mari on 02-11-2023 MCV (RBC) [Entitic vol] 91.7 fL 80-94 [facility] ED NOTEon 02-11-2023 ED NOTE HNO ID: [id number] Author: Gaby Carlisle RN Service: Nursing Author Type: Registered Nurse Type: ED Notes Filed: 02/11/2023 9:28 PM Note Text: Trauma at bedside. [facility] ED NOTE HNO ID: [id number] Author: Gaby Carlisle RN Service: Nursing Author Type: Registered Nurse Type: ED Notes Filed: 02/11/2023 8:10 PM Note Text: Patient arrives via EMS with C-collar in place. 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 [facility] ED NOTE HNO ID: [id number] Author: Mara Calvin RN Service: ? Author Type: Registered Nurse Type: ED Notes Filed: 02/11/2023 8:05 PM Note Text: Bed: 43-ED Expected date: Expected time: Means of arrival: Comments: [place] [facility] ED PROV NOTEon 02-11-2023 ED PROV NOTE HNO ID: [id number] Author: Julius Castellon MD Service: Emergency Medicine [...] care with the resident. Patient transferred from [facility] for L2 fracture. Around 1 PM he fell off the roof and he said he landed on his left lower extremity. He was unable to get up due to his excruciating pain in his left lower extremity and his back. He had evaluation at [facility] which found L2 fracture. Denies headache. Has [...] JULIUS CASTELLON 02/12/23 0100 Normal [facility] Hematocrit Auto (Bld) [Volum e fraction]Ordered By: Dr. Mari on 02-11-2023 Hematocrit (Bld) [Volume fraction] 37.6 % 40-54 [facility] INR in Blood by Coagulation assayOrdered By: Dr. Mari on 02-11-2023 INR Coag (Bld) [Relative time] 1.2 {INR} [facility] Ketones Test strip Ql (U)Ord ered By: Dr. Mari on 02-11-2023 Ketones Ql (U) Negative Negative [facility] Laboratory - Chemistry and C hemistry - challengeOrdered By: Dr. Mari on 02-11-2023 ALP [Catalytic activity/Vol] 78 U/L 45-117 [facility] ALT [Catalytic activity/Vol] 27 U/L 16-61 [facility] CO2 [Moles/Vol] 25.0 mmol/L 21.0-32.0 [facility] Globulin (S) [Mass/Vol] 3.3 g/dL 2.2-4.2 [facility] Lipase [Catalytic activity/Vol] 24 U/L 13-75 [facility] Comment on above: Please note:LIPASE r evised reference range effective 23. New Lipase methodology. Expected to produce lower values than the previous assay method. NEW Reference Range: 13 - 75 U/L Urea nitrogen/Creatinine [Mass ratio] 12.2 mg/mg 10-20 [facility] Laboratory - CoagulationOrde red By: Dr. Mari on 02-11-2023 aPTT Coag (Bld) [Time] 31.9 s 24.1-36.2 [facility] PT Coag (PPP) [Time] 14.4 s 11.7-14.9 [facility] Laboratory - Hematology and Cell countsOrdered By: Dr. Mari on 02-11-2023 Erythrocyte distribution width (RBC) [Entitic vol] 46.7 fL 35.1-43.9 [facility] Erythrocyte distribution width (RBC) [Ratio] 13.8 % 11.6-14.6 [facility] Immature granulocytes/100 WBC (Bld) 1.300 % 0.0-0.9 [facility] Comment on above: IG% - Immature Granu locytes (promyelocytes, myelocytes and metamyelocytes) > 1% indicates that a LEFT SHIFT is Present. MCH (RBC) [Entitic mass] 30.7 pg 27.0-32.0 [facility] Nucleated RBC/100 WBC (Bld) [Ratio] 0 % 0-5 [facility] MCHC Auto (RBC) [Mass/Vol]Or dered By: Dr. Mari on 02-11-2023 MCHC (RBC) [Mass/Vol] 33.5 g/dL 32-36 [facility] Mucus LM Ql (Urine sed)Order ed By: Dr. Mari on 02-11-2023 Mucus Ql (Urine sed) 0 SEEN /hpf [facility] Nitrite Test strip Ql (U)Ord ered By: Dr. Mari on 02-11-2023 Nitrite Ql (U) Negative Negative [facility] No Panel InformationOrdered By: Dr. Mari on 02-11-2023 Estimated Creatinine Clearance Calc 75.79 ml/min [facility] Estimated GFR (MDRD) Amer 97 mL/min >60 [facility] Comment on above: GFR Calc Estimated GFR (MDRD) Non-Af Amer 80 mL/min >60 [facility] Comment on above: Non- GFR Calc Ethyl Alcohol Level < 3.0 mg/dL [facility] Comment on above: The serum:whole bloo d ethanol ratio is approximately 1.14and varies slightly with hematocrit. Medical Alcohol reference interval and critical value innon-tolerant individuals; 50 - 100 Impairment 100 Intoxication 100 - 250 Severe Poisoning 250 - 400 Deep/possible fatal coma Platelets bldOrdered By: Dr. Mari on 02-11-2023 Platelets (Bld) [#/Vol] 324 10*3/uL 150-450 [facility] Protein Test strip Ql (U)Ord ered By: Dr. Mari on 02-11-2023 Protein Ql (U) Negative Negative [facility] Serum or plasma albumin doug urement (mass/volume)Ordered By: Dr. Mari on 02-11-2023 Albumin [Mass/Vol] 3.3 g/dL 3.2-5.0 [facility] Serum or plasma albumin/glob ulin mass ratioOrdered By: Dr. Mari on 02-11-2023 Albumin/Globulin [Mass ratio] 1.0 {ratio} 0.9-2.4 [facility] Serum or plasma calcium doug urement (mass/volume)Ordered By: Dr. Mari on 02-11-2023 Calcium [Mass/Vol] 9.0 mg/dL 8.5-10.1 [facility] Serum or plasma creatinine m easurement (mass/volume)Ordered By: Dr. Mari on 02-11-2023 Creatinine [Mass/Vol] 0.99 mg/dL 0.70-1.30 [facility] Comment on above: The validity of the calculated GFR & GFRAA in patients over 70 years has not been determined. Clinical correlation is essential. Serum or plasma urea nitroge n measurement (mass/volume)Ordered By: Dr. Mari on 02-11-2023 Urea nitrogen [Mass/Vol] 12 mg/dL 7-18 [facility] Squamous epithelial cells de tection in urine sediment by light microscopyOrdered By: Dr. Mari on 02-11-2023 Epithelial cells.squamous LM Ql (Urine sed) 0 SEEN /hpf 0-5 [facility] Thin prep Papanicolaou smear with manual screeningOrdered By: Dr. Mari on 02-11-2023 Thin prep Papanicolaou smear with manual screening 26 U/L 15-37 [facility] Comment on above: Slight Hemolysis, Re sult may be falsely increased. Thin prep Papanicolaou smear with manual screening 2 5-15 [facility] Urine blood detectionOrdered By: Dr. Mari on 02-11-2023 RBC Ql (U) 10 /ul Negative [facility] RBC Ql (U) 0 SEEN /hpf 0-5 [facility] Urine clarityOrdered By: Dr. Mari on 02-11-2023 Clarity (U) Clear Clear [facility] Urine color determinationOrd ered By: Dr. Mari on 02-11-2023 Color (U) Yellow Yellow [facility] Urine glucose detectionOrder ed By: Dr. Mari on 02-11-2023 Glucose Ql (U) Normal mg/dl Normal [facility] Urine leukocyte esterase det ection by dipstickOrdered By: Dr. Mari on 02-11-2023 Leukocyte esterase Test strip Ql (U) Negative Negative [facility] Urine pHOrdered By: Dr. Kathya guzmán on 02-11-2023 pH (U) 8.0 [pH] 5.0 - 8.0 [facility] Urine sediment bacteria coun t by microscopy (number/high power field)Ordered By: Dr. Mari on 02-11-2023 Bacteria LM.HPF (Urine sed) [#/Area] 0 /[HPF] None Seen [facility] Urine specific gravity measu rementOrdered By: Dr. Mari on 02-11-2023 Specific gravity (U) [Rel density] 1.010 1.002-1.03 0 [facility] Urobilinogen Auto test strip Ql (U)Ordered By: Dr. Mari on 02-11-2023 Urobilinogen Ql (U) Normal mg/dl Normal [facility] BD BONE DENSITY DEXA AXIAL S KELETONon [...] 4:34:29 PM Ordering Provider: EUGENIO Vickers [facility] CNOVon 09-19-2022 [facility] Office Visit (GENSWS ) ----- WINSTON MARI ([id number]) 1955 M Date Time Provider Department 09/19/22 [...] to your office visit today with the [facility] General Surgeons. INSTRUCTIONS FOR AN ANAL FISSURE [...] you should contact our office immediately @ [phone] and ask to be transferred to the General Surgery department. Hubert Jett MD 09/20/2022 6:52 AM Signed HISTORY AND PHYSICAL Winston Mari 1955 REFERRING PHYSICIAN: Eugenio Mayen IV, MD CHIEF COMPLAINT: Anal Pain HPI: Winston henriquez (more content not included)... Normal [facility] LABORATORYOrdered By: Maddie Currie on 09-04-2022 Basophil, [...] Auto (Unsp spec) [#/Vol] 2.03 10*3/uL 0.83-4.51 [facility] Work Phone: Basophil percentageon 2021 Basophil percentage 5-10 SEEN /hpf 0-5 [facility] Work Phone: Basophils/100 WBC (Bld) 1.0 % 0-1 [facility] Work Phone: Chloride [Moles/Vol] 104 mmol/L 98-107 [facility] Work Phone: Eosinophils/100 WBC (Bld) 3.5 % 0-5 [facility] Work Phone: Glucose [Mass/Vol] 88 mg/dL 74-106 [facility] Work Phone: Neutrophils (Bld) [#/Vol] 4.0 10*3/uL 2.0-7.7 [facility] Work Phone: Neutrophils/100 WBC (Bld) 56.6 % 47-70 [facility] Work Phone: Potassium [Moles/Vol] 3.5 mmol/L 3.5-5.1 [facility] Work Phone: Sodium [Moles/Vol] 136 mmol/L 136-145 [facility] Work Phone: WBC (Bld) [#/Vol] 7.1 10*3/uL 4.4-11.0 [facility] Work Phone: Bilirubin Test strip Ql (U)o n 08-12-2022 Bilirubin Ql (U) Negative Negative [facility] Work Phone: Blood erythrocytes count (nu mber/volume)on 08-12-2022 RBC (Bld) [#/Vol] 4.49 10*6/uL 4.6-6.2 [facility] Work Phone: Blood hemoglobin measurement (mass/volume)on 08-12-2022 Hemoglobin (Bld) [Mass/Vol] 13.5 g/dL 13.0-16.5 [facility] Work Phone: Blood lymphocytes/100 leukoc yteson 08-12-2022 Lymphocytes/100 WBC (Bld) 28.8 % 19-41 [facility] Work Phone: Blood monocytes/100 leukocyt eson 08-12-2022 Monocytes/100 WBC (Bld) 9.8 % 0-10 [facility] Work Phone: Blood platelet mean volumeon 08-12-2022 Platelet mean volume (Bld) [Entitic vol] 8.7 fL 6.2-12.0 [facility] Work Phone: [phone] Determination of erythrocyte mean corpuscular volume (MCV)on 08-12-2022 MCV (RBC) [Entitic vol] 90.2 fL 80-94 [facility] Work Phone: [phone] Hematocrit Auto (Bld) [Volum e fraction]on 08-12-2022 Hematocrit (Bld) [Volume fraction] 40.5 % 40-54 [facility] Work Phone: [phone] Ketones Test strip Ql (U)on 08-12-2022 Ketones Ql (U) Negative Negative [facility] Work Phone: [phone] Laboratory - Chemistry and C hemistry - challengeon 08-12-2022 CO2 [Moles/Vol] 26.0 mmol/L 21.0-32.0 [facility] Work Phone: [phone] Urea nitrogen/Creatinine [Mass ratio] 17.3 mg/mg 10-20 [facility] Work Phone: [phone] Laboratory - Hematology and Cell countson 08-12-2022 Erythrocyte distribution width (RBC) [Entitic vol] 43.8 fL 35.1-43.9 [facility] Work Phone: [phone] Erythrocyte distribution width (RBC) [Ratio] 13.2 % 11.6-14.6 [facility] Work Phone: [phone] Immature granulocytes/100 WBC (Bld) 0.300 % 0.0-0.9 [facility] Work Phone: [phone] Comment on above: IG% - Immature Granu locytes (promyelocytes, myelocytes and metamyelocytes) > 1% indicates that a LEFT SHIFT is Present. MCH (RBC) [Entitic mass] 30.1 pg 27.0-32.0 [facility] Work Phone: Nucleated RBC/100 WBC (Bld) [Ratio] 0 % 0-5 [facility] Work Phone: [phone] MCHC Auto (RBC) [Mass/Vol]on 08-12-2022 MCHC (RBC) [Mass/Vol] 33.3 g/dL 32-36 [facility] Work Phone: Mucus LM Ql (Urine sed)on Mucus Ql (Urine sed) 0 SEEN /hpf [facility] Work Phone: Nitrite Test strip Ql (U)on 08-12-2022 Nitrite Ql (U) Negative Negative [facility] Work Phone: No Panel Informationon 08-12 Estimated Creatinine Clearance Calc 55.02 ml/min [facility] Work Phone: Estimated GFR (MDRD) Amer 69 mL/min >60 [facility] Work Phone: Comment on above: GFR Calc Estimated GFR (MDRD) Non-Af Amer 57 mL/min >60 [facility] Work Phone: Comment on above: Non- GFR Calc Platelets bldon 08-12-2022 Platelets (Bld) [#/Vol] 347 10*3/uL 150-450 [facility] Work Phone: Protein Test strip Ql (U)on 08-12-2022 Protein Ql (U) Negative Negative [facility] Work Phone: Serum or plasma calcium doug urement (mass/volume)on 08-12-2022 Calcium [Mass/Vol] 9.1 mg/dL 8.5-10.1 [facility] Work Phone: Serum or plasma creatinine m easurement (mass/volume)on 08-12-2022 Creatinine [Mass/Vol] 1.33 mg/dL 0.70-1.30 [facility] Work Phone: Comment on above: The validity of the calculated GFR & GFRAA in patients over 70 years has not been determined. Clinical correlation is essential. Serum or plasma urea nitroge n measurement (mass/volume)on 08-12-2022 Urea nitrogen [Mass/Vol] 23 mg/dL 7-18 [facility] Work Phone: Squamous epithelial cells de tection in urine sediment by light microscopyon 08-12-2022 Epithelial cells.squamous LM Ql (Urine sed) 0 SEEN /hpf 0-5 [facility] Work Phone: Thin prep Papanicolaou smear with manual screeningon 08-12-2022 Thin prep Papanicolaou smear with manual screening 6 5-15 [facility] Work Phone: Urine blood detectionon 07-23 RBC Ql (U) 25 /ul Negative [facility] Work Phone: RBC Ql (U) 0 SEEN /hpf 0-5 [facility] Work Phone: Urine clarityon 08-12-2022 Clarity (U) Clear Clear [facility] Work Phone: Urine color determinationon 08-12-2022 Color (U) Yellow Yellow [facility] Work Phone: Urine glucose detectionon Glucose Ql (U) Normal mg/dl Normal [facility] Work Phone: Urine leukocyte esterase det ection by dipstickon 08-12-2022 Leukocyte esterase Test strip Ql (U) Negative Negative [facility] Work Phone: Urine pHon 08-12-2022 pH (U) 6.0 [pH] 5.0 - 8.0 [facility] Work Phone: Urine sediment bacteria coun t by microscopy (number/high power field)on 08-12-2022 Bacteria LM.HPF (Urine sed) [#/Area] 0 /[HPF] None Seen [facility] Work Phone: Urine specific gravity measu rementon 08-12-2022 Specific gravity (U) [Rel density] 1.020 1.002-1.03 0 [facility] Work Phone: Urobilinogen Auto test strip Ql (U)on 08-12-2022 Urobilinogen Ql (U) Normal mg/dl Normal [facility] Work Phone: [phone] Absolute lymphocyte counton 04-16-2022 Lymphocytes Auto (Unsp spec) [#/Vol] 1.66 10*3/uL 0.83-4.51 [facility] Work Phone: Basophil percentageon 2021 Basophils/100 WBC (Bld) 0.5 % 0-1 [facility] Work Phone: Bilirubin [Mass/Vol] 0.70 mg/dL 0.20-1.00 [facility] Work Phone: Comment on above: For patients on eltr ombopag therapy, use of Dimension [place] TBIL is not recommended. Chloride [Moles/Vol] 106 mmol/L 98-107 [facility] Work Phone: Eosinophils/100 WBC (Bld) 1.4 % 0-5 [facility] Work Phone: Glucose [Mass/Vol] 90 mg/dL 74-106 [facility] Work Phone: Neutrophils (Bld) [#/Vol] 3.8 10*3/uL 2.0-7.7 [facility] Work Phone: Neutrophils/100 WBC (Bld) 60.6 % 47-70 [facility] Work Phone: Potassium [Moles/Vol] 4.0 mmol/L 3.5-5.1 [facility] Work Phone: Protein [Mass/Vol] 7.2 g/dL 6.4-8.2 [facility] Work Phone: Sodium [Moles/Vol] 139 mmol/L 136-145 [facility] Work Phone: WBC (Bld) [#/Vol] 6.3 10*3/uL 4.4-11.0 [facility] Work Phone: Blood erythrocytes count (nu mber/volume)on 04-16-2022 RBC (Bld) [#/Vol] 4.82 10*6/uL 4.6-6.2 [facility] Work Phone: Blood hemoglobin measurement (mass/volume)on 04-16-2022 Hemoglobin (Bld) [Mass/Vol] 14.1 g/dL 13.0-16.5 [facility] Work Phone: Blood lymphocytes/100 leukoc yteson 04-16-2022 Lymphocytes/100 WBC (Bld) 26.5 % 19-41 [facility] Work Phone: Blood monocytes/100 leukocyt eson 04-16-2022 Monocytes/100 WBC (Bld) 10.8 % 0-10 [facility] Work Phone: Blood platelet mean volumeon 04-16-2022 Platelet mean volume (Bld) [Entitic vol] 8.6 fL 6.2-12.0 [facility] Work Phone: Determination of erythrocyte mean corpuscular volume (MCV)on 04-16-2022 MCV (RBC) [Entitic vol] 90.5 fL 80-94 [facility] Work Phone: Direct bilirubinon Bilirubin.direct [Mass/Vol] 0.15 mg/dL 0.00-0.30 [facility] Work Phone: Hematocrit Auto (Bld) [Volum e fraction]on 04-16-2022 Hematocrit (Bld) [Volume fraction] 43.6 % 40-54 [facility] Work Phone: INR in Blood by Coagulation assayon 04-16-2022 INR Coag (Bld) [Relative time] 1.0 {INR} [facility] Work Phone: Laboratory - Chemistry and C hemistry - challengeon 04-16-2022 ALP [Catalytic activity/Vol] 80 U/L 45-117 [facility] Work Phone: ALT [Catalytic activity/Vol] 20 U/L 16-61 [facility] Work Phone: CO2 [Moles/Vol] 28.0 mmol/L 21.0-32.0 [facility] Work Phone: Globulin (S) [Mass/Vol] 3.7 g/dL 2.2-4.2 [facility] Work Phone: Urea nitrogen/Creatinine [Mass ratio] 10.7 mg/mg 10-20 [facility] Work Phone: Laboratory - Coagulationon 0 04-16-2022 aPTT Coag (Bld) [Time] 26.6 s [facility].1[facility] Work Phone: PT Coag (PPP) [Time] 12.7 s 11.7-14.9 [facility] Work Phone: Laboratory - Hematology and Cell countson 04-16-2022 Erythrocyte distribution width (RBC) [Entitic vol] 46.5 fL 35.1-43.9 [facility] Work Phone: [phone] Erythrocyte distribution width (RBC) [Ratio] 14.0 % 11.6-14.6 [facility] Work Phone: [phone] Immature granulocytes/100 WBC (Bld) 0.200 % 0.0-0.9 [facility] Work Phone: [phone] Comment on above: IG% - Immature Granu locytes (promyelocytes, myelocytes and metamyelocytes) > 1% indicates that a LEFT SHIFT is Present. MCH (RBC) [Entitic mass] 29.3 pg 27.0-32.0 [facility] Work Phone: Nucleated RBC/100 WBC (Bld) [Ratio] 0 % 0-5 [facility] Work Phone: MCHC Auto (RBC) [Mass/Vol]on 04-16-2022 MCHC (RBC) [Mass/Vol] 32.3 g/dL 32-36 [facility] Work Phone: No Panel Informationon 04-16 Estimated Creatinine Clearance Calc 59.33 ml/min [facility] Work Phone: Estimated GFR (MDRD) Amer 77 mL/min >60 [facility] Work Phone: [phone] Comment on above: GFR Calc Estimated GFR (MDRD) Non-Af Amer 64 mL/min >60 [facility] Work Phone: [phone] Comment on above: Non- GFR Calc Platelets bldon 04-16-2022 Platelets (Bld) [#/Vol] 301 10*3/uL 150-450 [facility] Work Phone: [phone] Serum or plasma albumin doug urement (mass/volume)on 04-16-2022 Albumin [Mass/Vol] 3.5 g/dL 3.2-5.0 [facility] Work Phone: [phone] Serum or plasma calcium doug urement (mass/volume)on 04-16-2022 Calcium [Mass/Vol] 9.2 mg/dL 8.5-10.1 [facility] Work Phone: [phone] Serum or plasma creatinine m easurement (mass/volume)on 04-16-2022 Creatinine [Mass/Vol] 1.21 mg/dL 0.70-1.30 [facility] Work Phone: [phone] Comment on above: The validity of the calculated GFR & GFRAA in patients over 70 years has not been determined. Clinical correlation is essential. Serum or plasma urea nitroge n measurement (mass/volume)on 04-16-2022 Urea nitrogen [Mass/Vol] 13 mg/dL 7-18 [facility] Work Phone: [phone] Thin prep Papanicolaou smear with manual screeningon 04-16-2022 Thin prep Papanicolaou smear with manual screening 11 U/L 15-37 [facility] Work Phone: [phone] Thin prep Papanicolaou smear with manual screening 5 5-15 [facility] Work Phone: [phone] Absolute lymphocyte counton 04-14-2022 Lymphocytes Auto (Unsp spec) [#/Vol] 1.56 10*3/uL 0.83-4.51 [facility] Work Phone: [phone] Basophil percentageon 2021 Basophils/100 WBC (Bld) 0.5 % 0-1 [facility] Work Phone: Chloride [Moles/Vol] 107 mmol/L 98-107 [facility] Work Phone: [phone] Eosinophils/100 WBC (Bld) 1.8 % 0-5 [facility] Work Phone: Glucose [Mass/Vol] 124 mg/dL 74-106 [facility] Work Phone: Comment on above: Fasting Glucose resu lt from 100 to 125 mg/dL suggests IMPAIRED HOMEOSTASIS per A.D.A. criteria. Neutrophils (Bld) [#/Vol] 5.1 10*3/uL 2.0-7.7 [facility] Work Phone: Neutrophils/100 WBC (Bld) 69.5 % 47-70 [facility] Work Phone: Potassium [Moles/Vol] 3.8 mmol/L 3.5-5.1 [facility] Work Phone: [phone] Sodium [Moles/Vol] 140 mmol/L 136-145 [facility] Work Phone: WBC (Bld) [#/Vol] 7.4 10*3/uL 4.4-11.0 [facility] Work Phone: Blood erythrocytes count (nu mber/volume)on 04-14-2022 RBC (Bld) [#/Vol] 4.61 10*6/uL 4.6-6.2 [facility] Work Phone: Blood hemoglobin measurement (mass/volume)on 04-14-2022 Hemoglobin (Bld) [Mass/Vol] 13.4 g/dL 13.0-16.5 [facility] Work Phone: Blood lymphocytes/100 leukoc yteson 04-14-2022 Lymphocytes/100 WBC (Bld) 21.1 % 19-41 [facility] Work Phone: Blood monocytes/100 leukocyt eson 04-14-2022 Monocytes/100 WBC (Bld) 7.0 % 0-10 [facility] Work Phone: Blood platelet mean volumeon 04-14-2022 Platelet mean volume (Bld) [Entitic vol] 8.9 fL 6.2-12.0 [facility] Work Phone: Determination of erythrocyte mean corpuscular volume (MCV)on 04-14-2022 MCV (RBC) [Entitic vol] 89.6 fL 80-94 [facility] Work Phone: [phone] Hematocrit Auto (Bld) [Volum e fraction]on 04-14-2022 Hematocrit (Bld) [Volume fraction] 41.3 % 40-54 [facility] Work Phone: [phone] Laboratory - Chemistry and C hemistry - challengeon 04-14-2022 CO2 [Moles/Vol] 27.0 mmol/L 21.0-32.0 [facility] Work Phone: [phone] Urea nitrogen/Creatinine [Mass ratio] 8.8 mg/mg 10-20 [facility] Work Phone: [phone] Laboratory - Drug toxicology on 04-14-2022 Amphetamines Ql (U) Negative <1000 ng/mL [facility] Work Phone: [phone] Benzodiazepines Ql (U) Negative < 200 ng/mL [facility] Work Phone: [phone] Cannabinoids Screen Ql (U) Positive < 50 ng/mL [facility] Work Phone: [phone] Cocaine Ql (U) Negative < 300 ng/mL [facility] Work Phone: [phone] Opiates Ql (U) Negative < 300 ng/mL [facility] Work Phone: [phone] Laboratory - Hematology and Cell countson 04-14-2022 Erythrocyte distribution width (RBC) [Entitic vol] 46.0 fL 35.1-43.9 [facility] Work Phone: [phone] Erythrocyte distribution width (RBC) [Ratio] 14.2 % 11.6-14.6 [facility] Work Phone: [phone] Immature granulocytes/100 WBC (Bld) 0.100 % 0.0-0.9 [facility] Work Phone: [phone] Comment on above: IG% - Immature Granu locytes (promyelocytes, myelocytes and metamyelocytes) > 1% indicates that a LEFT SHIFT is Present. MCH (RBC) [Entitic mass] 29.1 pg 27.0-32.0 [facility] Work Phone: [phone] Nucleated RBC/100 WBC (Bld) [Ratio] 0 % 0-5 [facility] Work Phone: [phone] MCHC Auto (RBC) [Mass/Vol]on 04-14-2022 MCHC (RBC) [Mass/Vol] 32.4 g/dL 32-36 [facility] Work Phone: [phone] Panel Informationon 04-14 MDMA (Ecstasy) Screen Negative < 500 ng/mL [facility] Work Phone: [phone] Urine Barbiturates Screen Negative < 200 ng/mL [facility] Work Phone: [phone] Urine Drug Screen Comment [facility] Work Phone: [phone] Comment on above: CONFIRMATORY TESTING FOR ALL [...] Urine Methadone Screen Negative < 300 ng/mL [facility] Work Phone: [phone] Estimated Creatinine Clearance Calc 62.98 ml/min [facility] Work Phone: [phone] Estimated GFR (MDRD) Amer 83 mL/min >60 [facility] Work Phone: [phone] Comment on above: GFR Calc Estimated GFR (MDRD) Non-Af Amer 68 mL/min >60 [facility] Work Phone: [phone] Comment on above: Non- GFR Calc Ethyl Alcohol Level 10.0 mg/dL [facility] Work Phone: [phone] Comment on above: The serum:whole bloo d ethanol ratio is approximately 1.14and varies slightly with hematocrit. Medical Alcohol reference interval and critical value innon-tolerant individuals; 50 - 100 Impairment 100 Intoxication 100 - 250 Severe Poisoning 250 - 400 Deep/possible fatal coma Platelets bldon 04-14-2022 Platelets (Bld) [#/Vol] 311 10*3/uL 150-450 [facility] Work Phone: Serum or plasma calcium doug urement (mass/volume)on 04-14-2022 Calcium [Mass/Vol] 9.3 mg/dL 8.5-10.1 [facility] Work Phone: Serum or plasma creatinine m easurement (mass/volume)on 04-14-2022 Creatinine [Mass/Vol] 1.14 mg/dL 0.70-1.30 [facility] Work Phone: Comment on above: The validity of the calculated GFR & GFRAA in patients over 70 years has not been determined. Clinical correlation is essential. Serum or plasma urea nitroge n measurement (mass/volume)on 04-14-2022 Urea nitrogen [Mass/Vol] 10 mg/dL 7-18 [facility] Work Phone: Thin prep Papanicolaou smear with manual screeningon 04-14-2022 Thin prep Papanicolaou smear with manual screening 6 5-15 [facility] Work Phone: Urine phencyclidine (PCP) de tectionon 04-14-2022 Phencyclidine Ql (U) Negative < 25 ng/mL [facility] Work Phone: EMERGENCY REPORTon 2 EMERGENCY REPORT [facility] EMERGENCY ROOM REPORT NAME ACCOUNT SEX AGE ADMIT DISCHARGE PT MED. RECORD# NUMBER DATE DATE TYPE KAMALJIT, [id number] Prashant 67 03/26/22 03/26/22 3 LIAM Miller [id number] ROOM: ER DATE OF : 1955 DICTATING PHYSICIAN: Basim Toussaint HISTORY OF PRESENT ILLNESS: The patient [...] contusion. 5. Left leg contusion. Dictated By: Basim Toussaint DO 03/26/22 19:14 JOB #: [id number] Transcribed By: jean marie 03/27/22 07:37 Electronically signed by: KRISTIAN Toussaint DO 03/27/22 08:26 Page 2 of 2 LIAM MARI Emergency Room Report Normal [facility] CBC + DIFFon 03-26-2022 Baso # 0.00 [id number] Normal 0.00 - 0.10 [facility] Comment on above: Performed By: #### [id number] #### [facility],[address] [place] [address] Basophils/100 WBC (Bld) 0.2 % Normal 0.0 - 2.0 [facility] Comment on above: Performed By: #### 2 49745 #### [facility],[address] [place] [address] CBC + DIFF Normal [facility] Comment on above: Result Comment: CBC- COMPLETE BLOOD COUNT Performed By: #### 2 11812 #### [facility],[address] [place] [address] EO # 0.00 x10EE3/UL Normal 0.00 - 0.50 [facility] Comment on above: Performed By: #### 2 37169 #### [facility],[address] [place] [address] Eosinophils/100 WBC (Bld) 0.2 % Normal 0.0 - 7.0 [facility] Comment on above: Performed By: #### 2 19565 #### [place] [address] Erythrocyte distribution width (RBC) [Ratio] 14.8 % Normal 12.0 - 15.6 [facility] Comment on above: Performed By: #### 2 45612 #### [facility],[address] [place] [address] Hematocrit (Bld) [Volume fraction] 32.0 % Low 40.0 - 52.0 [facility] Comment on above: Performed By: #### 2 40930 #### [facility],[address] [place] [address] Hemoglobin (Bld) [Mass/Vol] 10.7 g/dL Low 13.0 - 17.5 [facility] Comment on above: Performed By: #### 2 86750 #### [facility],[address] [place] [address] Lymph # 0.60 x10EE3/UL Low 0.80 - 2.80 [facility] Comment on above: Performed By: #### 2 55407 #### [facility],[address] [place] [address] Lymphocytes/100 WBC (Bld) 8.1 % Low 20.0 - 45.0 [facility] Comment on above: Performed By: #### 2 96433 #### [facility],[address] [place], [place] [address] MANUAL DIFF N/A Normal [facility] Comment on above: Performed By: #### 2 65629 #### [facility],[address] [place] [address] MCH (RBC) [Entitic mass] 30 pg Normal 27 - 33 [facility] Comment on above: Performed By: #### 2 42443 #### [facility],[address] [place], [place] [id number] MCHC 33 X10 3 Normal 32 - 36 [facility] Comment on above: Performed By: #### 2 88439 #### [facility],[address] [place], [place] [address] MCV (RBC) [Entitic vol] 89 fL Normal 81 - 98 [facility] Comment on above: Performed By: #### 2 95400 #### [facility],[address] [place] [address] [place] # 0.20 x10EE3/UL Normal 0.20 - 1.00 [facility] Comment on above: Performed By: #### 2 94216 #### [facility],[address] [place] [address] MONOS % 3.3 % Normal 0.0 - 10.0 [facility] Comment on above: Performed By: #### 2 71631 #### [facility],[address] [place] [address] Morphology Siva (Bld) [Interp] N/A Normal [facility] Comment on above: Result Comment: {CD] Performed By: #### 2 29439 #### [facility],[address] [place] [address] Neut # 6.50 x10EE3/UL Normal 1.50 - 7.10 [facility] Comment on above: Performed By: #### 2 89413 #### [facility],[address] [place], [place] [address] Neutrophils/100 WBC (Bld) 88.2 % High 46.0 - 76.0 [facility] Comment on above: Performed By: #### 2 14363 #### [facility],[address] [place] [address] PLATELET 250 x10EE3/UL Normal 150 - 450 [facility] Comment on above: Performed By: #### 2 03558 #### [facility],[address] [place], [place] [address] Platelet mean volume (Bld) [Entitic vol] 6.9 fL Normal 6.4 - 10.5 [facility] Comment on above: Result Comment: AUTO MATED DIFFERENTIAL Performed By: #### 2 17681 #### [facility],[address] [place], [place] [address] RBC 3.61 x 10EE6/UL Low 4.50 - 6.00 [facility] Comment on above: Performed By: #### 2 44924 #### [facility],[address] [place] [address] WBC 7.3 x 10EE3/UL Normal 4.5 - 10.8 [facility] Comment on above: Performed By: #### 2 96963 #### [facility],[address] [place] [address] CMP with eGFRon 03-26-2022 AGE 67 years Normal [facility] Comment on above: Performed By: #### 2 13577 #### [facility],[address] [place] [address] Albumin [Mass/Vol] 3.2 g/dL Low 3.4 - 5.0 [facility] Comment on above: Performed By: #### 2 78022 #### [facility],[address] [place] [address] Albumin/Globulin [Mass ratio] 1.0 {ratio} Normal 0.9 - 1.6 [facility] Comment on above: Performed By: #### 2 97667 #### [facility],[address] [place] [address] ALK PHOS 75 U/L Normal 46 - 116 [facility] Comment on above: Performed By: #### 2 49788 #### [facility],[address] [place] [address] ALT [Catalytic activity/Vol] 24 U/L Normal 16 - 63 [facility] Comment on above: Performed By: #### 2 78536 #### [facility],[address] [place] [address] Anion gap [Moles/Vol] 12 mmol/L Normal 10 - 20 [facility] Comment on above: Performed By: #### 2 86903 #### [facility],[address] [place] [address]35 AST [Catalytic activity/Vol] 11 U/L Low 15 - 37 [facility] Comment on above: Performed By: #### 2 86699 #### [facility],[address] [place] [address] B/C RATIO 15 ratio Normal 0 - 30 [facility] Comment on above: Performed By: #### 2 05599 #### [facility],[address] [place] [address] Bilirubin [Mass/Vol] 0.5 mg/dL Normal 0.2 - 1.0 [facility] Comment on above: Performed By: #### 2 19297 #### [facility],[address] [place] [address] Calcium [Mass/Vol] 8.5 mg/dL Normal 8.5 - 10.1 [facility] Comment on above: Performed By: #### 2 37464 #### [facility],[address] [place] [address] Chloride [Moles/Vol] 104 mmol/L Normal 98 - 107 [facility] Comment on above: Performed By: #### 2 22170 #### [facility],[address] [place] [address] CMP with eGFR Normal [facility] Comment on above: Result Comment: COMP REHENSIVE METABOLIC PANEL Performed By: #### 2 45299 #### [facility],[address] [place] [address] CO2 [Moles/Vol] 27.2 mmol/L Normal 21.0 - 32.0 [facility] Comment on above: Performed By: #### 2 67317 #### [facility],[address] [place] [address] Creatinine [Mass/Vol] 1.07 mg/dL Normal 0.70 - 1.30 [facility] Comment on above: Performed By: #### 2 21214 #### [facility],[address] [place] [address] GFR/1.73 sq M.predicted among non-blacks MDRD (S/P/Bld) [Vol rate/Area] mL/min/{1.73_m2} Normal 60 - 999 [facility] Comment on above: Performed By: #### 2 29395 #### [facility],[address] [place] [address] Result Comment: ACCO RDING TO THE NATIONAL KIDNEY DISEASE EDUCATION PROGRAM(NKDE), A NORMAL eGFR IS A VALUE GREATER THAN OR EQUAL TO 60 ML/MIN/1.73 SQ METERS. CHRONIC KIDNEY DISEASE: <60mL/MIN/1.73 SQ METERS KIDNEY FAILURE: <15mL/MIN/1.73 SQ METERS THIS TEST SHOULD ONLY BE USED FOR PATIENTS 18 YEARS OF AGE AND OLDER. Globulin (S) [Mass/Vol] 3.3 g/dL Normal 1.5 - 3.8 [facility] Comment on above: Performed By: #### 2 66465 #### [address] [address] Glucose [Mass/Vol] 115 mg/dL High 74 - 106 [facility] Comment on above: Performed By: #### 2 16895 #### [address] [address] Potassium [Moles/Vol] 4.1 mmol/L Normal 3.5 - 5.1 [facility] Comment on above: Performed By: #### 2 17130 #### [facility],[address] [place] [address] Protein [Mass/Vol] 6.5 g/dL Normal 6.4 - 8.2 [facility] Comment on above: Performed By: #### 2 57074 #### [address] [address] Sodium [Moles/Vol] 139 mmol/L Normal 136 - 145 [facility] Comment on above: Performed By: #### 2 97197 #### [address] [address] Urea nitrogen [Mass/Vol] 16 mg/dL Normal 7 - 18 [facility] Comment on above: Performed By: #### 2 95341 #### [facility],[address] [place], [place] [address] CT BRAIN W/O CONTRASTon 06-0 CT BRAIN W/O CONTRAST [place] [id number] Patient: LIAM MARI Phone#: : 1955 Age: 67 Gender: M Pt. Type: ER Account: [id number] Location: 05 Ordering: BASIM TOUSSAINT Exam Date: 03/26/2022/13:47 Family Phys: Charge Code: [id number] Physician: Winona Order #: [id number] DLP Dose#: 52.30 PROCEDURE: CT BRAIN WITHOUT [...] Casanova MD on 03/26/2022 at 18:36 Normal [facility] CT CERVICAL W/O CONTRASTon 0 03-26-2022 CT CERVICAL W/O CONTRAST [place] [address] Patient: LIAM MARI Phone#: : 1955 Age: 67 Gender: M Pt. Type: ER Account: [id number] Location: 052 Ordering: [facility] Exam Date: 03/26/202213:47 Family Phys: Charge Code: [id number] Physician: Winona Order #: [id number] DLP Dose#: 12.40 PROCEDURE: CT CERVICAL WITHOUT [...] 67 Gender: M Pt. Type: ER Account: [id number] Location: 052 Ordering: [facility] Exam Date: 03/26/202213:47 Family Phys: Charge Code: [id number] Physician: Winona Order #: [id number] DLP Dose#: 12.40 2. There is no evidence of acute fracture or subluxation. Dictated by: Albertina Casanova MD on 03/26/2022 at 18:33 Approved by: Albertina Casanova MD on 03/26/2022 at 18:35 Normal [facility] CT CHEST/ABD/PELVIS C+on CT CHEST/ABD/PELVIS C+ [place] [id number] [place], [place] [address] Patient: LIAM MARI Phone#: : 1955 Age: 67 Gender: M Pt. Type: ER Account: [id number] Location: 052 Ordering: [facility] TOUSSAINT Exam Date: 03/26/2022/13:51 Family Phys: Charge Code: [id number] Physician: Winona Order #: [id number] DLP Dose#: 16.70 PROCEDURE: CT CHEST/ABD/PELVIS W [...] 67 Gender: M Pt. Type: ER Account: [id number] Location: 052 [facility]: [facility] Exam Date: 03/26/2022/13:51 Family Phys: Charge Code: [id number] Physician: Winona Order #: [id number] DLP Dose#: 16.70 RETROPERITONEUM: Normal. No mass [...] Casanova MD on 03/26/2022 at 18:41 Normal [facility] KNEE COMPLETE LT MIN 4 VIEWS on 03-26-2022 KNEE COMPLETE LT MIN 4 VIEWS [place] [address] Patient: LIAM MARI Phone#: : 1955 Age: 67 Gender: M Pt. Type: ER Account: [id number] Location: 052 Ordering: [facility] Exam Date: 03/26/2022/17:06 Family Phys: EUGENIO MAYEN Charge Code: [id number] Physician: Winona Order #: [id number] DLP Dose#: PROCEDURE: X-RAY KNEE LT COMPLETE 4 VIEWS COMPARISON: [facility], XR, KNEE COMPLETE LT MIN 4 VIEWS, 04/21/2018, 14:08. INDICATIONS: Trauma. FINDINGS: BONES: Normal. No significant arthropathy or acute abnormality. SOFT TISSUES: Negative. No visible soft tissue swelling. EFFUSION: None visible. OTHER: Negative. CONCLUSION: No acute disease. Dictated by: Albertina Casanova MD on 03/26/2022 at 18:07 Approved by: Albertina Casanova MD on 03/26/2022 at 18:08 Normal [facility] No Panel Informationon 03-08 Culture Urine No growth at 48 hours. [facility] Work Phone: Absolute lymphocyte counton 01-12-2022 Lymphocytes Auto (Unsp spec) [#/Vol] 1.45 10*3/uL 0.83-4.51 [facility] Work Phone: Amorphous sediment detection in urine sediment by light microscopyon 01-12-2022 Amorphous sediment LM Ql (Urine sed) 1+ URATE [facility] Work Phone: Basophil percentageon 2021 Basophil percentage 10-25 SEEN /hpf 0-5 [facility] Work Phone: Basophils/100 WBC (Bld) 1.0 % 0-1 [facility] Work Phone: Chloride [Moles/Vol] 104 mmol/L 98-107 [facility] Work Phone: Eosinophils/100 WBC (Bld) 1.9 % 0-5 [facility] Work Phone: Glucose [Mass/Vol] 104 mg/dL 74-106 [facility] Work Phone: Comment on above: Fasting Glucose resu lt from 100 to 125 mg/dL suggests IMPAIRED HOMEOSTASIS per A.D.A. criteria. Neutrophils (Bld) [#/Vol] 3.9 10*3/uL 2.0-7.7 [facility] Work Phone: Neutrophils/100 WBC (Bld) 62.7 % 47-70 [facility] Work Phone: Potassium [Moles/Vol] 3.4 mmol/L 3.5-5.1 [facility] Work Phone: Sodium [Moles/Vol] 138 mmol/L 136-145 [facility] Work Phone: WBC (Bld) [#/Vol] 6.2 10*3/uL 4.4-11.0 [facility] Work Phone: Bilirubin Test strip Ql (U)o n 01-12-2022 Bilirubin Ql (U) Negative Negative [facility] Work Phone: Blood erythrocytes count (nu mber/volume)on 01-12-2022 RBC (Bld) [#/Vol] 4.79 10*6/uL 4.6-6.2 [facility] Work Phone: Blood hemoglobin measurement (mass/volume)on 01-12-2022 Hemoglobin (Bld) [Mass/Vol] 14.6 g/dL 13.0-16.5 [facility] Work Phone: Blood lymphocytes/100 leukoc yteson 01-12-2022 Lymphocytes/100 WBC (Bld) 23.5 % 19-41 [facility] Work Phone: Blood monocytes/100 leukocyt eson 01-12-2022 Monocytes/100 WBC (Bld) 10.7 % 0-10 [facility] Work Phone: Blood platelet mean volumeon 01-12-2022 Platelet mean volume (Bld) [Entitic vol] 8.8 fL 6.2-12.0 [facility] Work Phone: Culture, urineon 01-12-2022 Bacteria identified Cx Nom (U) Culture exhibits no growth. [facility] Work Phone: Determination of erythrocyte mean corpuscular volume (MCV)on 01-12-2022 MCV (RBC) [Entitic vol] 88.9 fL 80-94 [facility] Work Phone: Hematocrit Auto (Bld) [Volum e fraction]on 01-12-2022 Hematocrit (Bld) [Volume fraction] 42.6 % 40-54 [facility] Work Phone: Ketones Test strip Ql (U)on 01-12-2022 Ketones Ql (U) Negative Negative [facility] Work Phone: [phone] Laboratory - Chemistry and C hemistry - challengeon 01-12-2022 CO2 [Moles/Vol] 30.0 mmol/L 21.0-32.0 [facility] Work Phone: [phone] Urea nitrogen/Creatinine [Mass ratio] 11.6 mg/mg 10-20 [facility] Work Phone: [phone] Laboratory - Hematology and Cell countson 01-12-2022 Erythrocyte distribution width (RBC) [Entitic vol] 42.7 fL 35.1-43.9 [facility] Work Phone: [phone] Erythrocyte distribution width (RBC) [Ratio] 13.1 % 11.6-14.6 [facility] Work Phone: [phone] Immature granulocytes/100 WBC (Bld) 0.200 % 0.0-0.9 [facility] Work Phone: [phone] Comment on above: IG% - Immature Granu locytes (promyelocytes, myelocytes and metamyelocytes) > 1% indicates that a LEFT SHIFT is Present. MCH (RBC) [Entitic mass] 30.5 pg 27.0-32.0 [facility] Work Phone: [phone] Nucleated RBC/100 WBC (Bld) [Ratio] 0 % 0-5 [facility] Work Phone: [phone] MCHC Auto (RBC) [Mass/Vol]on 01-12-2022 MCHC (RBC) [Mass/Vol] 34.3 g/dL 32-36 [facility] Work Phone: [phone] Mucus LM Ql (Urine sed)on Mucus Ql (Urine sed) 0 SEEN /hpf [facility] Work Phone: [phone] Nitrite Test strip Ql (U)on 01-12-2022 Nitrite Ql (U) Negative Negative [facility] Work Phone: [phone] No Panel Informationon 01-12 Estimated Creatinine Clearance Calc 56.41 ml/min [facility] Work Phone: [phone] Estimated GFR (MDRD) Amer 72 mL/min >60 [facility] Work Phone: Comment on above: GFR Calc Estimated GFR (MDRD) Non-Af Amer 59 mL/min >60 [facility] Work Phone: Comment on above: Non- GFR Calc Platelets bldon 01-12-2022 Platelets (Bld) [#/Vol] 374 10*3/uL 150-450 [facility] Work Phone: Protein Test strip Ql (U)on 01-12-2022 Protein Ql (U) 15 mg/dl Negative [facility] Work Phone: [phone] Serum or plasma calcium doug urement (mass/volume)on 01-12-2022 Calcium [Mass/Vol] 9.4 mg/dL 8.5-10.1 [facility] Work Phone: [phone] Serum or plasma creatinine m easurement (mass/volume)on 01-12-2022 Creatinine [Mass/Vol] 1.29 mg/dL 0.70-1.30 [facility] Work Phone: Comment on above: The validity of the calculated GFR & GFRAA in patients over 70 years has not been determined. Clinical correlation is essential. Serum or plasma urea nitroge n measurement (mass/volume)on 01-12-2022 Urea nitrogen [Mass/Vol] 15 mg/dL 7-18 [facility] Work Phone: [phone] Squamous epithelial cells de tection in urine sediment by light microscopyon 01-12-2022 Epithelial cells.squamous LM Ql (Urine sed) 0-5 SEEN /hpf 0-5 [facility] Work Phone: [phone] Thin prep Papanicolaou smear with manual screeningon 01-12-2022 Thin prep Papanicolaou smear with manual screening 4 5-15 [facility] Work Phone: [phone] Urine blood detectionon 12-21 RBC Ql (U) 50 /ul Negative [facility] Work Phone: [phone] RBC Ql (U) 0-5 SEEN /hpf 0-5 [facility] Work Phone: Urine clarityon 01-12-2022 Clarity (U) Sl Cldy Clear [facility] Work Phone: Comment on above: Previous reported re sult: Clear Edited by: ROSAURA on 01/12/22:1822 Urine color determinationon 01-12-2022 Color (U) Yellow Yellow [facility] Work Phone: Urine glucose detectionon Glucose Ql (U) Normal mg/dl Normal [facility] Work Phone: Urine leukocyte esterase det ection by dipstickon 01-12-2022 Leukocyte esterase Test strip Ql (U) 500 /ul Negative [facility] Work Phone: Urine pHon 01-12-2022 pH (U) 7.0 [pH] 5.0 - 8.0 [facility] Work Phone: Urine sediment bacteria coun t by microscopy (number/high power field)on 01-12-2022 Bacteria LM.HPF (Urine sed) [#/Area] 0 /[HPF] None Seen [facility] Work Phone: Urine specific gravity measu rementon 01-12-2022 Specific gravity (U) [Rel density] 1.010 1.002-1.03 0 [facility] Work Phone: Urobilinogen Auto test strip Ql (U)on 01-12-2022 Urobilinogen Ql (U) 1 mg/dl Normal [facility] Work Phone: Absolute lymphocyte counton 12-04-2021 Lymphocytes Auto (Unsp spec) [#/Vol] 1.43 10*3/uL 0.83-4.51 [facility] Work Phone: Basophil percentageon 2021 Basophils/100 WBC (Bld) 0.6 % 0-1 [facility] Work Phone: Chloride [Moles/Vol] 107 mmol/L 98-107 [facility] Work Phone: Eosinophils/100 WBC (Bld) 2.4 % 0-5 [facility] Work Phone: Glucose [Mass/Vol] 107 mg/dL 74-106 [facility] Work Phone: Comment on above: Fasting Glucose resu lt from 100 to 125 mg/dL suggests IMPAIRED HOMEOSTASIS per A.D.A. criteria. Neutrophils (Bld) [#/Vol] 4.5 10*3/uL 2.0-7.7 [facility] Work Phone: Neutrophils/100 WBC (Bld) 67.7 % 47-70 [facility] Work Phone: Potassium [Moles/Vol] 3.9 mmol/L 3.5-5.1 [facility] Work Phone: [phone] Sodium [Moles/Vol] 138 mmol/L 136-145 [facility] Work Phone: WBC (Bld) [#/Vol] 6.7 10*3/uL 4.4-11.0 [facility] Work Phone: Blood erythrocytes count (nu mber/volume)on 12-04-2021 RBC (Bld) [#/Vol] 4.71 10*6/uL 4.6-6.2 [facility] Work Phone: Blood hemoglobin measurement (mass/volume)on 12-04-2021 Hemoglobin (Bld) [Mass/Vol] 14.4 g/dL 13.0-16.5 [facility] Work Phone: Blood lymphocytes/100 leukoc yteson 12-04-2021 Lymphocytes/100 WBC (Bld) 21.4 % 19-41 [facility] Work Phone: Blood monocytes/100 leukocyt eson 12-04-2021 Monocytes/100 WBC (Bld) 7.5 % 0-10 [facility] Work Phone: Blood platelet mean volumeon 12-04-2021 Platelet mean volume (Bld) [Entitic vol] 8.3 fL 6.2-12.0 [facility] Work Phone: Determination of erythrocyte mean corpuscular volume (MCV)on 12-04-2021 MCV (RBC) [Entitic vol] 90.2 fL 80-94 [facility] Work Phone: [phone] Hematocrit Auto (Bld) [Volum e fraction]on 12-04-2021 Hematocrit (Bld) [Volume fraction] 42.5 % 40-54 [facility] Work Phone: [phone] Laboratory - Chemistry and C hemistry - challengeon 12-04-2021 CO2 [Moles/Vol] 27.0 mmol/L 21.0-32.0 [facility] Work Phone: [phone] Urea nitrogen/Creatinine [Mass ratio] 15.7 mg/mg 10-20 [facility] Work Phone: [phone] Laboratory - Hematology and Cell countson 12-04-2021 Erythrocyte distribution width (RBC) [Entitic vol] 44.6 fL 35.1-43.9 [facility] Work Phone: [phone] Erythrocyte distribution width (RBC) [Ratio] 13.4 % 11.6-14.6 [facility] Work Phone: [phone] Immature granulocytes/100 WBC (Bld) 0.400 % 0.0-0.9 [facility] Work Phone: [phone] Comment on above: IG% - Immature Granu locytes (promyelocytes, myelocytes and metamyelocytes) > 1% indicates that a LEFT SHIFT is Present. MCH (RBC) [Entitic mass] 30.6 pg 27.0-32.0 [facility] Work Phone: [phone] Nucleated RBC/100 WBC (Bld) [Ratio] 0 % 0-5 [facility] Work Phone: [phone] MCHC Auto (RBC) [Mass/Vol]on 12-04-2021 MCHC (RBC) [Mass/Vol] 33.9 g/dL 32-36 [facility] Work Phone: [phone] Panel Informationon 12-04 Estimated Creatinine Clearance Calc 67.93 ml/min [facility] Work Phone: Estimated GFR (MDRD) Amer 82 mL/min >60 [facility] Work Phone: [phone] Comment on above: GFR Calc Estimated GFR (MDRD) Non-Af Amer 68 mL/min >60 [facility] Work Phone: Comment on above: Non- GFR Calc Platelets bldon 12-04-2021 Platelets (Bld) [#/Vol] 477 10*3/uL 150-450 [facility] Work Phone: Serum or plasma calcium doug urement (mass/volume)on 12-04-2021 Calcium [Mass/Vol] 8.7 mg/dL 8.5-10.1 [facility] Work Phone: Serum or plasma creatinine m easurement (mass/volume)on 12-04-2021 Creatinine [Mass/Vol] 1.15 mg/dL 0.70-1.30 [facility] Work Phone: Comment on above: The validity of the calculated GFR & GFRAA in patients over 70 years has not been determined. Clinical correlation is essential. 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) Heartburn (787.1) (R12) Weight loss (783.21) (R63.4) Orders Abnormality of pancreatic duct, Weight loss MRI Pancreas w/wo Contrast; Status:Hold For - Scheduling; Requested for:12Jan2021; Perform:[facility]; Due:12Apr2021;Ordered; For:Abnormality of pancreatic duct, Weight loss; Ordered By:Connie East; Radiologist to Determine Optimal Study : Y Does the patient have a Cochlear Implant, Pacemaker, Defibrilator, Pacing Wire, Brain Aneurysm Clip, Implanted Nerve or Bone Graft Simulator, Implanted Breast Tissue Flare Maker, Glucose Monitor, or Neulasta Device? : No What are the patient's signs and symptoms? : Prominent pancreat duct 4 mm Heartburn Start: Omeprazole 20 MG Oral Tablet Delayed Release; TAKE 1 TABLET Daily 30 minutes before breakfast Rx By: Connie East; Dispense: 30 Days ; #:30 Tablet; Refill: 3;For: Heartburn; DAVID = N; Verified Transmission to [id number]; Last Updated By: Paradine; 01/12/2021 12:20:01 PM Patient Discussion/Summary 1. Outside [...] Complaint Abnormal CT scan History of Present Oafobob89-anig-rni male presents today referred by Brian Rooney regarding an abnormal pancreatic duct finding on recent CT scan. Patient had presented to [facility] emergency room on 12/22/2020 for left hip [...] He has no dysphagia or odynophagia. Uses wmrw-pwe-yvhnqhz Tums with short-term relief. He has never [...] Tablet Vitals Vital Signs Recorded: 12Jan2021 11:32AM Aspjhrpnath44.7 F Heart Rate63 Height6 ft 1 in Mtsnce006 lb 6 oz BMI Nrikqmhrzu50.82 BSA Calculated1.98 O2 Gcjvjxtixs34 Physical Exam Const: Vital signs reviewed. ENMT: [...] right side while sitting and moving. Results/Data [facility] ED 12/22/2020: Sigmoid diverticulosis without diverticulitis, prominent [...] Ordering Physician MD LEONG JESSE Accession Number [id number] CPT4 Codes 50291 () Reason For Exam Injury Report EXAM: [...] R Transcribed Date and Time: 06/26/2020 6:35 [facility] CR Shoulder 2+ Views Lefton 06-26-2020 CR Shoulder 2+ Views Left Patient Name: WINSTON MARI Diagnostic Radiology Exam Date/Time 06/26/2020 18:22:17 EDT Exam CR Shoulder 2+ Views Left Ordering Physician MD LEONG JESSE Accession Number [id number] CPT4 Codes 56779 () Reason For Exam Injury Report EXAM: [...] R Transcribed Date and Time: 06/26/2020 6:31 [facility] CR Spine Lumbosacral 2 or 3 Viewson 06-26-2020 CR Spine Lumbosacral 2 or 3 Views Patient Name: WINSTON MARI Diagnostic Radiology Exam Date/Time 06/26/2020 18:22:17 EDT Exam CR Spine Lumbosacral 2 or 3 Views Ordering Physician MD LEONG JESSE Accession Number [id number] CPT4 Codes 27547 () Reason For Exam Injury Report EXAM: [...] Transcribed Date and Time: 06/26/2020 6:36 Normal [facility] CR Wrist Complete 3 Views Le fton 06-26-2020 CR Wrist Complete 3 Views Left Patient Name: WINSTON MARI Diagnostic Radiology Exam Date/Time 06/26/2020 18:22:17 EDT Exam CR Wrist Complete 3 Views Left Ordering Physician MD LEONG JESSE Accession Number [id number] CPT4 Codes 04176 () Reason For Exam Injury Report EXAM: [...] Transcribed Date and Time: 06/26/2020 6:38 Normal [facility] XR HUMERUS LEFT (MIN 2 VIEWS )on 06-26-2020 Patient Name: WINSTON MARI ---Diagnostic Radiology--- Exam Date/Time 06/26/2020 18:22:17 EDT Exam CR Humerus 2+ Views Left Ordering Physician MD LEONG JESSE Accession Number [id number] CPT4 Codes 37822 () Reason For Exam Injury Report EXAM: [...] R Transcribed Date and Time: 06/26/2020 6:35 [facility] [place] Incoming Radiology Results From [facility] - 06/26/2020 6:35 PM EDT Patient Name: WINSTON MARI ---Diagnostic Radiology--- Exam Date/Time 06/26/2020 18:22:17 EDT Exam CR Humerus 2+ Views Left Ordering Physician MD LEONG JESSE Accession Number [id number] CPT4 Codes 13886 () Reason For Exam Injury Report EXAM: [...] R Transcribed Date and Time: 06/26/2020 6:35 [place], [place] XR LUMBAR SPINE (2-3 VIEWS)o n 06-26-2020 Patient Name: WINSTON MARI ---Diagnostic Radiology--- Exam Date/Time 06/26/2020 18:22:17 EDT Exam CR Spine Lumbosacral 2 or 3 Views Ordering Physician MD LEONG JESSE Accession Number [id number] CPT4 Codes 86735 () Reason For Exam Injury Report EXAM: [...] R Transcribed Date and Time: 06/26/2020 6:36 [place], [place] [facility] Incoming Radiology Results [facility] - 06/26/2020 6:37 PM EDT Patient Name: WINSTON MARI ---Diagnostic Radiology--- Exam Date/Time 06/26/2020 18:22:17 EDT Exam CR Spine Lumbosacral 2 or 3 Views Ordering Physician MD LEONG JESSE Accession Number [id number] CPT4 Codes 85218 () Reason For Exam Injury Report EXAM: [...] R Transcribed Date and Time: 06/26/2020 6:36 [facility], [place] XR Shoulder Left 2 VWon Patient Name: WINSTON MARI ---Diagnostic Radiology--- Exam Date/Time 06/26/2020 18:22:17 EDT Exam CR Shoulder 2+ Views Left Ordering Physician MD LEONG JESSE Accession Number [id number] CPT4 Codes 04641 () Reason For Exam Injury Report EXAM: [...] R Transcribed Date and Time: 06/26/2020 6:31 [place], [place] [facility] Incoming Radiology Results From [facility] - 06/26/2020 6:32 PM EDT Patient Name: WINSTON MARI ---Diagnostic Radiology--- Exam Date/Time 06/26/2020 18:22:17 EDT Exam CR Shoulder 2+ Views Left Ordering Physician MD LEONG JESSE Accession Number [id number] CPT4 Codes 21246 () Reason For Exam Injury Report EXAM: [...] R Transcribed Date and Time: 06/26/2020 6:31 [facility], [place] XR WRIST LEFT 3 VWon 020 Patient Name: WINSTON MARI ---Diagnostic Radiology--- Exam Date/Time 06/26/2020 18:22:17 EDT Exam CR Wrist Complete 3 Views Left Ordering Physician MD LEONG JESSE Accession Number [id number] CPT4 Codes 96485 () Reason For Exam Injury Report EXAM: [...] R Transcribed Date and Time: 06/26/2020 6:38 [facility], [place] Incoming Radiology Results From [facility] - 06/26/2020 6:39 PM EDT Patient Name: WINSTON MARI ---Diagnostic Radiology--- Exam Date/Time 06/26/2020 18:22:17 EDT Exam CR Wrist Complete 3 Views Left Ordering Physician MD LEONG JESSE Accession Number [id number] CPT4 Codes 71876 () Reason For Exam Injury Report EXAM: [...] R Transcribed Date and Time: 06/26/2020 6:38 [place], [place] CT BRAIN WO IVCONon 11-03-[address] BRAIN WO IVCON * * *Final Report* * * DATE OF EXAM: Nov 03 2019 4:30PM [facility] 0504 - CT BRAIN WO IVCON [...] acute intracranial findings. Chronic changes as described Fashion Coordinator: [employer] Transcribe Date/Time: Nov 03 2019 4:35P Dictated by : MAXI BALES MD This examination was interpreted and the report reviewed and electronically signed by: MAXI BALES MD on Nov 03 2019 4:38PM EST Normal [facility] CT CERVICAL SPINE WO IVCONon 11-03-2019 CT CERVICAL SPINE WO IVCON * * *Final Report* * * DATE OF EXAM: Nov 03 2019 5:08PM [facility] 0505 - CT CERVICAL SPINE WO [...] vertebrae with counting from the craniocervical junction. Fashion Coordinator: [facility] Transcribe Date/Time: Nov 03 2019 5:17P Dictated by : MARYBETH CHAPA MD This examination was interpreted and the report reviewed and electronically signed by: MARYBETH CHAPA MD on Nov 03 2019 5:25PM EST Normal [facility] CT LUMBAR SPINE WO IVCONon 0 11-03-2019 CT LUMBAR SPINE WO IVCON * * *Final Report* * * DATE OF EXAM: Nov 03 2019 4:43PM [facility] 0508 - CT LUMBAR SPINE WO [...] and assume there are 5 lumbar-type vertebrae. Fashion Coordinator: CHRISTIN Transcribe Date/Time: Nov 03 2019 5:06P Dictated by : MARYBETH CHAPA MD This examination was interpreted and the report reviewed and electronically signed by: MARYBETH CHAPA MD on Nov 03 2019 5:14PM EST Normal [facility] CT THORACIC SPINE WO IVCONon 01-13-2020 CT THORACIC SPINE WO IVCON * * *Final Report* * * DATE OF EXAM: Nov 03 2019 4:44PM [facility] 0514 - CT THORACIC SPINE WO [...] months from the initial exam) is recommended. Fashion Coordinator: [employer] Transcribe Date/Time: Nov 03 2019 5:25P Dictated by : MARYBETH CHAPA MD This examination was interpreted and the report reviewed and electronically signed by: MARYBETH CHAPA MD on Nov 03 2019 5:37PM EST ACTIONABLE Normal [facility] Comprehensive Panelon 2019 Anion gap [Moles/Vol] 13 mmol/L Normal 8-20 [facility] Comment on above: Performed By: #### L P14 #### [facility] [address] [place] [address] Chloride [Moles/Vol] 103 mmol/L Normal 98-109 [facility] Comment on above: Result Comment: Test ing performed on an Munoz i-STAT. Performed By: #### L P14 #### [place] [address] Potassium [Moles/Vol] 3.9 mmol/L Normal 3.5-4.[address] [facility] Comment on above: Result Comment: Test ing performed on an Munoz i-STAT. Performed By: #### L P14 #### [place] [address] Sodium [Moles/Vol] 139 mmol/L Normal 138-146 [facility] Comment on above: Result Comment: Test ing performed on an Munoz i-STAT. Performed By: #### L P14 #### [place] [address] Albumin [Mass/Vol] 3.9 g/dL Normal 3.4-5.0 [facility] Comment on above: Performed By: #### L P14 #### [place] [address] ALP [Catalytic activity/Vol] 89 U/L Normal 46-116 [facility] Comment on above: Performed By: #### L P14 #### [place] [address] ALT-SGPT Blood 33 U/L Normal 14-63 [facility] Comment on above: Performed By: #### L P14 #### [place] [address] AST-SGOT Blood 19 U/L Normal 15-37 [facility] Comment on above: Performed By: #### L P14 #### [place] [address] Bilirubin Ql (U) 0.7 mg/dL Normal 0.2-1.0 [facility] Comment on above: Performed By: #### L P14 #### [place] [address] [place], [place] [address] Calcium [Mass/Vol] 9.3 mg/dL Normal 8.5-10.1 [facility] Comment on above: Performed By: #### L P14 #### [facility] [address] [place], [place] [address] CO2 Blood 27 mEq/L Normal 21-32 [facility] Comment on above: Performed By: #### L P14 #### [facility] [address] [place], [place] [address] Creatinine [Mass/Vol] 1.03 mg/dL Normal 0.67-1.[address] [facility] Comment on above: Performed By: #### L P14 #### [facility] [address] [place] [address] Glucose [Mass/Vol] 101 mg/dL High 70-99 [facility] Comment on above: Performed By: #### L P14 #### [facility] [address] [place] [address] Protein [Mass/Vol] 7.9 g/dL Normal 6.4-8.2 [facility] Comment on above: Performed By: #### L P14 #### [facility] [address] [place], [place] [address] Urea nitrogen [Mass/Vol] 14 mg/dL Normal 7-18 [facility] Comment on above: Performed By: #### L P14 #### [address] [address] Urea nitrogen/Creatinine [Mass ratio] 14 mg/mg Normal 10-20 [facility] Comment on above: Performed By: #### L P14 #### [facility] [address] [place], [place] [address] Hemogram/Diffon 11-03-2019 Abs. Baso 0.03 thou/cmm Normal 0.00-0.08 [facility] Comment on above: Performed By: #### L CBCD #### [facility] [address] [place], [place] [address] Abs. [place] 0.80 thou/cmm Normal 0.20-1.00 [facility] Comment on above: Performed By: #### L CBCD #### [facility] [address] [place], [place] [address] Abs. Neut (ANC) 4.63 thou/cmm Normal 3.00-5.67 [facility] Comment on above: Performed By: #### L CBCD #### [facility] [address] [place], [place] [address] Basophils/100 WBC (Bld) 0.4 % Normal [facility] Comment on above: Performed By: #### L CBCD #### [facility] [address] [place], [place] [address] Eosinophils (Bld) [#/Vol] 0.22 thou/cmm Normal 0.00-0.41 [facility] Comment on above: Performed By: #### L CBCD #### [address] [address] Eosinophils/100 WBC (Bld) 2.8 % Normal [facility] Comment on above: Performed By: #### L CBCD #### [facility] [address] [place], [place] [address] Erythrocyte distribution width (RBC) [Ratio] 12.9 % Normal 11.5-15.9 [facility] Comment on above: Performed By: #### L CBCD #### [facility] [address] [place], [place] [address] Hematocrit (Bld) [Volume fraction] 43.6 % Normal 42.0-52.0 [facility] Comment on above: Performed By: #### L CBCD #### [facility] [address] [place], [place] [address] Hemoglobin (Bld) [Mass/Vol] 14.5 g/dL Normal 14.0-18.0 [facility] Comment on above: Performed By: #### L CBCD #### [facility] [address] [place], [place] [address] Lymphocytes (Bld) [#/Vol] 2.22 thou/cmm Normal 1.50-3.65 [facility] Comment on above: Performed By: #### L CBCD #### [address] [address] Lymphocytes/100 WBC (Bld) 28.1 % Normal [facility] Comment on above: Performed By: #### L CBCD #### [facility] [address] [place], [place] [address] MCH (RBC) [Entitic mass] 29.8 pg Normal 27.0-31.0 [facility] Comment on above: Performed By: #### L CBCD #### [facility] [address] [place] [address] MCHC (RBC) [Mass/Vol] 33.3 % Normal 32.0-36.[address] [facility] Comment on above: Performed By: #### L CBCD #### [place] [address] MCV (RBC) [Entitic vol] 89.5 fL Normal 80.0-94.0 [facility] Comment on above: Performed By: #### L CBCD #### [place] [address] Monocytes/100 WBC (Bld) 10.1 % Normal [facility] Comment on above: Performed By: #### L CBCD #### [place] [address] Platelet mean volume (Bld) [Entitic vol] 8.6 fL Normal 7.1-10.5 [facility] Comment on above: Performed By: #### L CBCD #### [place] [address] Platelets (Bld) [#/Vol] 373 thou/cmm Normal 150-400 [facility] Comment on above: Performed By: #### L CBCD #### [place] [address] RBC (Bld) [#/Vol] 4.87 mil/cmm Normal 4.60-6.20 [facility] Comment on above: Performed By: #### L CBCD #### [place] [address] Seg Neutrophil 58.6 % Normal [facility] Comment on above: Performed By: #### L CBCD #### [facility] [address] [place], [place] [address] WBC (Bld) [#/Vol] 7.9 thou/cmm Normal 4.8-10.5 [facility] Comment on above: Performed By: #### L CBCD #### [facility] [address] [place], [place] [address] MDRD eGFRon 11-03-2019 GFR/1.73 sq M predicted among non-blacks MDRD (S/P/Bld) [Vol rate/Area] mL/min/{1.73_m2} Normal >60mL/min/ 1.73m2 [facility] Comment on above: Result Comment: If t he patient is , multiply the result by 1.210. Performed By: #### L GFR #### [facility] [address] [place] [id number] Protimeon 11-03-2019 INR Coag (PPP) [Relative time] 1.01 {INR} Normal 0.90-1.30 [facility] Comment on above: Result Comment: Ashley min K Antagonist (VKA) Therapeutic Range: INR 2 to 3 (Target INR of 2.5) Note: For patients treated with VKA drugs, such as warfarin, the [employer] 2012 Guideline recommends [...] Chest 2012; 141:7S-47S Kasie RA et al. [facility] 2017; 70: 252-289 Performed By: #### L PT #### [facility] [address] [place], [place] [address] PT Coag (PPP) [Time] 10.7 s Normal 9.7-13.0 [facility] Comment on above: Result Comment: . Performed By: #### L PT #### [facility] [address] [place] [address] Urinalysis Routineon 020 Appearance (U) CLEAR Normal [facility] Comment on above: Performed By: #### L PT #### [facility] [address] [place] [address] Bilirubin Urine Negative Normal Negative [facility] Comment on above: Performed By: #### L PT #### [facility] [address] [place] [address] Color (U) YELLOW Normal [facility] Comment on above: Performed By: #### L PT #### [facility] [address] [place] [address] Ep Cells Urine NONE Normal 0-5 [facility] Comment on above: Performed By: #### L PT #### [place] [address] Glucose Ql (U) Negative Normal Negative [facility] Comment on above: Performed By: #### L PT #### [place] [address] Hemoglobin,Urine TRACE-LYSED Abnormal Negative [facility] Comment on above: Performed By: #### L PT #### [place] [address] Ketone Urine Negative Normal Negative [facility] Comment on above: Performed By: #### L PT #### [place] [address] Leukocytes Esterase Negative Normal Negative [facility] Comment on above: Performed By: #### L PT #### [place] [address] Nitrites Urine Negative Normal Negative [facility] Comment on above: Performed By: #### L PT #### [place] [address] pH (U) 7.0 [pH] Normal 5.0-8.0 [facility] Comment on above: Performed By: #### L PT #### [address], [place] [address] Protein (U) [Mass/Vol] Negative Normal Negative [facility] Comment on above: Performed By: #### L PT #### [facility] [address] [place] [address] RBC LM.HPF (Urine sed) [#/Area] 0-3 Normal 0-3 [facility] Comment on above: Performed By: #### L PT #### [facility] [address] [place] [address] Specific [place], Ur 1.010 Normal 1.005-1 .03 0 [facility] Comment on above: Performed By: #### L PT #### [facility] [address] [place] [address] Urobilinogen,Ur 0.2 EU/dL Normal 0.2-1.0 [facility] Comment on above: Performed By: #### L PT #### [facility] [address] [place] [address] WBC LM.HPF (Urine sed) [#/Area] 0-2 Normal 0-5 [facility] Comment on above: Performed By: #### L PT #### [facility] [address] [place] [address] XR ANKLE 3V AP/LAT/OBL LTon 11-03-2019 XR [...] of acute left ankle fracture or dislocation. Fashion Coordinator: CHRISTIN Transcribe Date/Time: Nov 03 2019 6:40P Dictated by : MARYBETH CHAPA MD This examination was interpreted and the report reviewed and electronically signed by: MARYBETH CHAPA MD on Nov 03 2019 6:42PM EST Normal [facility] XR FOOT 3V AP/LAT/OBL LTon 0 11-03-2019 XR FOOT 3V AP/LAT/OBL LT * * *Final Report* * * DATE OF EXAM: Nov 03 2019 5:18PM [facility]X 5336 - XR FOOT 3V AP/LAT/OBL LT / PROCEDURE REASON: Foot trauma, [place] neg, initial exam * * * * [...] degenerative changes at the first metatarsophalangeal joint. Fashion Coordinator: CHRISTIN Transcribe Date/Time: Nov 03 2019 5:25P Dictated by : PATRICIA LAI MD This examination was interpreted and the report reviewed and electronically signed by: PATRICIA LAI MD on Nov 03 2019 5:28PM EST Normal [facility] XR FOOT 3V AP/LAT/OBL RTon 0 11-03-2019 XR FOOT 3V AP/LAT/OBL RT * * *Final Report* * * DATE OF EXAM: Nov 03 2019 5:18PM [facility] 5337 - XR FOOT 3V AP/LAT/OBL RT / PROCEDURE REASON: Foot trauma, [place] neg, polytrauma, initial exam * * * [...] degenerative changes at the first metatarsophalangeal joint. Fashion Coordinator: CHRISTIN Transcribe Date/Time: Nov 03 2019 5:25P Dictated by : PATRICIA LAI MD This examination was interpreted and the report reviewed and electronically signed by: PATRICIA LAI MD on Nov 03 2019 5:28PM EST Normal [facility] XR HIP 3V PELV+ AP/LAT LTon [...] are unremarkable. IMPRESSION: No fracture or dislocation. Fashion Coordinator: [employer] Transcribe Date/Time: Nov 03 2019 5:28P Dictated by : PATRICIA LAI MD This examination was interpreted and the report reviewed and electronically signed by: PATRICIA LAI MD on Nov 03 2019 5:31PM EST Normal [facility] XR HIP 3V PELV+ AP/LAT RTon [...] are unremarkable. IMPRESSION: No fracture or dislocation. Fashion Coordinator: CHRISTIN Transcribe Date/Time: Nov 03 2019 5:28P Dictated by : PATRICIA LAI MD This examination was interpreted and the report reviewed and electronically signed by: PATRICIA LAI MD on Nov 03 2019 5:31PM EST Normal [facility] XR KNEE 4V AP/LAT/OBLS LTon 11-03-2019 [...] of acute left knee fracture or dislocation. Fashion Coordinator: CHRISTIN Transcribe Date/Time: Nov 03 2019 6:42P Dictated by : MARYBETH CHAPA MD This examination was interpreted and the report reviewed and electronically signed by: MARYBETH CHAPA MD on Nov 03 2019 6:45PM EST Normal [facility] ED NOTEon 11-01-2017 ED NOTE HNO ID: [id number] Author: Annette (Rn) Christo Hernandez RN Service: (none) Author Type: Registered Nurse Type: ED Notes Filed: 11/01/2017 5:02 PM Note Text: Chronic joint pains, swelling warmth on and off, now some swelling no redness or warmth, [facility] ED NOTE HNO ID: [id number] thor: Annette (Rn) Christo Hernandez, RNService: (none)Author Type: Registered NurseType: ED NotesFiled: 11/01/2017 5:00 PMNote Text: DISCHARGE INSTRUCTIONS using teach back:Patient receptive to education,reviewed medications and percautions, f/u,reasons to return,prescription times .......2 percautions with pain medications [facility] ED PROV NOTEon 11-01-2017 ED PROV NOTE HNO ID: [id number] thor: Gino Robins) Abdon: (none)Author Type: Physician AssistantType: ED Provider NotesFiled: 11/01/2017 4:34 PMNote Text:ED Provider NotePatient Name: Winston MariMRN: [id number] DATE: 11/01/17HistoryPatient presents with:Pain (foot): rightWrist PainLow [...] BRAIN SURGERY HX- OTHER ANEURYSM REPAIR 1983 [facility]- Dr. Simpson- Brain AneurysmFAMILY HISTORYProblem Relation [...] (Src) 98.1 (Oral) Resp 18 Ht 6' 1" (1.85m) Wt 176 lb (79.8kg) SpO2 97% [...] ?F) (Oral) Resp 18 Ht185.4 cm (6' 1") Wt 79.8 kg (176 lb) SpO2 97% [...] and in writing to patient(patient guardian / territory account representative), who verbalized understanding.This note was partially generated using [employer] voice recognition system,and there may be some incorrect words, spellings, and punctuation thatwere not noted in checking the note before savingEncounter Diagnosis ICD-10-CM1. Left wrist pain M25.532(M25.532) Left wrist pain (primary encounter diagnosis)Comment: acutePlan: dc see pcp ,rest, dose antonina ,see pain management, tylenol, return toed if sx worsenPlanThe Patient was DISCHARGED: Counseled patient and family regardingsuspected diagnosis AND need for follow-up. Discharged home with verbal andwritten instructions. They were instructed to return as needed forpersistent or worsening symptoms or any new concerns.Condition at time of disposition: stableSIGNATURE: Margaret Sidhu (Niki) Lkhldomg39/11/18 1634 [facility] PROGRESSon 09-24-2017 PROGRESS HNO ID: [id number] thor: Jazz (Bree) MAYCO Rosservice: (none)Author Type: Clinical TechnicianType: Progress NotesFiled: 09/24/2017 1:57 PMNote Text:NAME:Winston MariDATE: September 24, 2017CCF#: [id number] X-Ray(s): Lumbar AP / LAT / OBL COMPLETEDTECH ID SIGN: HARMEET ANTHONY [facility] XR LUMBAR PARS [...] L4-L5 and L5-S1.IMPRESSION:Degenera tive changes lower lumbar spine.Fashion Coordinator: CHRISTIN Transcribe Date/Time: Sep 24 2017 3:13PDictated by : JO ANN FUNG MDThis examination was interpreted and the report reviewed and electronically signed by: JO ANN FUNG MD on Sep 24 2017 3:14PM [id number] Normal [facility] Culture, urine Bacteria identified Cx Nom (U) Culture exhibits no growth. [facility] Work Phone: Vital Signs Date Time Vital Sign Value Performing Clinician Facility 06-15-2025 23:42-0400 Body temperature 97.9 [degF] Dr. Eugenio Mayen DO Work Phone: [facility] 06-15-2025 23:42-0400 Diastolic blood pressure 73 mm[Hg] Dr. Eugenio Mayen DO Work Phone: [facility] 06-15-2025 23:42-0400 Heart rate 59 /min Dr. Eugenio Mayen DO Work Phone: [facility] 06-15-2025 23:42-0400 Respiratory rate 18 /min Dr. Eugenio Mayen DO Work Phone: [facility] 06-15-2025 23:42-0400 SaO2% (BldA) [Mass fraction] 100 % Dr. Eugenio Mayen DO Work Phone: [facility] 06-15-2025 23:42-0400 Systolic blood pressure 155 mm[Hg] Dr. Eugenio Mayen DO Work Phone: [facility] 06-15-2025 19:08-0400 Body mass index (BMI) [Ratio] 20.8 kg/m2 Dr. Eugenio Mayen DO Work Phone: [facility] 06-15-2025 19:08-0400 Body weight 67.[address] Eugenio Mayen DO Work Phone: [facility] 06-15-2025 17:57-0400 Body height 180.[address] Eugenio Mayen DO Work Phone: [facility] 06-11-2025 10:17-0400 Body temperature 98.1 [degF] Dr. Eugenio Mayen DO Work Phone: [facility] 06-11-2025 10:17-0400 Diastolic blood pressure 77 mm[Hg] Dr. Eugenio Mayen DO Work Phone: [facility] 06-11-2025 10:17-0400 Heart rate 61 /min Dr. Eugenio Mayen DO Work Phone: [facility] 06-11-2025 10:17-0400 Respiratory rate 16 /min Dr. Eugenio Mayen DO Work Phone: [facility] 06-11-2025 10:17-0400 SaO2% (BldA) [Mass fraction] 99 % Dr. Eugenio Mayen DO Work Phone: [facility] 06-11-2025 10:17-0400 Systolic blood pressure 132 mm[Hg] Dr. Eugenio Mayen DO Work Phone: [facility] 06-11-2025 08:32-0400 Body height 180.[address] Eugenio Mayen DO Work Phone: [facility] 06-11-2025 08:32-0400 Body mass index (BMI) [Ratio] 20.4 kg/m2 Dr. Eugenio Mayen DO Work Phone: [facility] 06-11-2025 08:32-0400 Body weight 66.[address] Eugenio Mayen DO Work Phone: [facility] 05-31-2025 12:23-0400 Body temperature 97.9 [degF] Dr. Eugenio Mayen DO Work Phone: [facility] 05-31-2025 12:23-0400 Diastolic blood pressure 77 mm[Hg] Dr. Eugenio Mayen DO Work Phone: [facility] 05-31-2025 12:23-0400 Heart rate 78 /min Dr. Eugenio Mayen DO Work Phone: [facility] 05-31-2025 12:23-0400 Respiratory rate 14 /min Dr. Eugenio Mayen DO Work Phone: [facility] 05-31-2025 12:23-0400 SaO2% (BldA) [Mass fraction] 100 % Dr. Eugenio Mayen DO Work Phone: [facility] 05-31-2025 12:23-0400 Systolic blood pressure 125 mm[Hg] Dr. Eugenio Mayen DO Work Phone: [facility] 05-31-2025 09:27-0400 Body height 180.[address] Eugenio Mayen DO Work Phone: [facility] 05-31-2025 09:27-0400 Body mass index (BMI) [Ratio] 20.8 kg/m2 Dr. Eugenio Mayen DO Work Phone: [facility] 05-31-2025 09:27-0400 Body weight 67.[address] Eugenio Mayen DO Work Phone: [facility] 04-26-2025 12:39-0400 Body temperature 97.6 [degF] Dr. Eugenio Mayen DO Work Phone: [facility] 04-26-2025 12:39-0400 Diastolic blood pressure 80 mm[Hg] Dr. Eugenio Mayen DO Work Phone: [facility] 04-26-2025 12:39-0400 Heart rate 58 /min Dr. Eugenio Mayen DO Work Phone: [facility] 04-26-2025 12:39-0400 Respiratory rate 16 /min Dr. Eugenio Mayen DO Work Phone: [facility] 04-26-2025 12:39-0400 SaO2% (BldA) [Mass fraction] 100 % Dr. Eugenio Mayen DO Work Phone: [facility] 04-26-2025 12:39-0400 Systolic blood pressure 145 mm[Hg] Dr. Eugenio Mayen DO Work Phone: [facility] 04-26-2025 08:25-0400 Body height 180.[address] Eugenio Mayen DO Work Phone: [facility] 04-26-2025 08:25-0400 Body mass index (BMI) [Ratio] 22.1 kg/m2 Dr. Eugenio Mayen DO Work Phone: [facility] 04-26-2025 08:25-0400 Body weight 72.[address] Eugenio Mayen DO Work Phone: [facility] 04-04-2025 16:05-0400 Body temperature 98.1 [degF] Dr. Eugenio Mayen DO Work Phone: [facility] 04-04-2025 16:05-0400 Diastolic blood pressure 76 mm[Hg] Dr. Eugenio Mayen DO Work Phone: [facility] 04-04-2025 16:05-0400 Heart rate 59 /min Dr. Eugenio Mayen DO Work Phone: [facility] 04-04-2025 16:05-0400 Respiratory rate 14 /min Dr. Eugenio Mayen DO Work Phone: [facility] 04-04-2025 16:05-0400 SaO2% (BldA) [Mass fraction] 100 % Dr. Eugenio Mayen DO Work Phone: [facility] 04-04-2025 16:05-0400 Systolic blood pressure 140 mm[Hg] Dr. Eugenio Mayen DO Work Phone: [facility] 04-04-2025 11:53-0400 Body height 180.[address] Eugenio Mayen DO Work Phone: [facility] 04-04-2025 11:53-0400 Body mass index (BMI) [Ratio] 20.8 kg/m2 Dr. Eugenio Mayen DO Work Phone: [facility] 04-04-2025 11:53-0400 Body weight 67.[address] Eugenio Mayen DO Work Phone: [facility] 02-23-2025 06:33-0400 Diastolic blood pressure 92 mm[Hg] Go Rice MD Work Phone: [facility] 02-23-2025 06:33-0400 Heart rate 60 /min Go Rice MD Work Phone: [facility] 02-23-2025 06:33-0400 Respiratory rate 16 /min Go Rice MD Work Phone: [facility] 02-23-2025 06:33-0400 SaO2% (BldA) [Mass fraction] 100 % Go Rice MD Work Phone: [facility] 02-23-2025 06:33-0400 Systolic blood pressure 156 mm[Hg] Go Rice MD Work Phone: [facility] 02-23-2025 04:20-0400 Body height 180.3 cm Go Rice MD Work Phone: [facility] 02-23-2025 04:20-0400 Body mass index (BMI) [Ratio] 22.18 kg/m2 Go Rice MD Work Phone: [facility] 02-23-2025 04:20-0400 Body temperature 97.7 [degF] Go Rice MD Work Phone: [facility] 02-23-2025 04:20-0400 Body weight 72.12 kg Go Rice MD Work Phone: [facility] 01-03-2025 16:39-0400 Body height 180.[address] Eugenio Mayen DO Work Phone: [facility] 01-03-2025 16:39-0400 Body mass index (BMI) [Ratio] 22 kg/m2 Dr. Eugenio Mayen DO Work Phone: [facility] 01-03-2025 16:39-0400 Body temperature 97 [degF] Dr. Eugenio Mayen DO Work Phone: [facility] 01-03-2025 16:39-0400 Body weight 71.[address] Eugenio Mayen DO Work Phone: [facility] 01-03-2025 16:39-0400 Diastolic blood pressure 82 mm[Hg] Dr. Eugenio Mayen DO Work Phone: [facility] 01-03-2025 16:39-0400 Heart rate 68 /min Dr. Eugenio Mayen DO Work Phone: [facility] 01-03-2025 16:39-0400 Respiratory rate 15 /min Dr. Eugenio Mayen DO Work Phone: [facility] 01-03-2025 16:39-0400 SaO2% (BldA) [Mass fraction] 100 % Dr. Eugenio Mayen DO Work Phone: [facility] 01-03-2025 16:39-0400 Systolic blood pressure 146 mm[Hg] Dr. Eugenio Mayen DO Work Phone: [facility] 01-01-2025 17:09-0400 Body temperature 98 [degF] Dr. Eugenio Mayen DO Work Phone: [facility] 01-01-2025 17:09-0400 Diastolic blood pressure 74 mm[Hg] Dr. Eugenio Mayen DO Work Phone: [facility] 01-01-2025 17:09-0400 Heart rate 63 /min Dr. Eugenio Mayen DO Work Phone: [facility] 01-01-2025 17:09-0400 Respiratory rate 16 /min Dr. Eugenio Mayen DO Work Phone: [facility] 01-01-2025 17:09-0400 SaO2% (BldA) [Mass fraction] 99 % Dr. Eugenio Mayen DO Work Phone: [facility] 01-01-2025 17:09-0400 Systolic blood pressure 122 mm[Hg] Dr. Eugenio Mayen DO Work Phone: [facility] 01-01-2025 16:01-0400 Diastolic blood pressure 74 mm[Hg] Dr. Eugenio Mayen DO Work Phone: [facility] 01-01-2025 16:01-0400 Heart rate 63 /min Dr. Eugenio Mayen DO Work Phone: [facility] 01-01-2025 16:01-0400 Respiratory rate 16 /min Dr. Eugenio Mayen DO Work Phone: [facility] 01-01-2025 16:01-0400 SaO2% (BldA) [Mass fraction] 99 % Dr. Eugenio Mayen DO Work Phone: [facility] 01-01-2025 16:01-0400 Systolic blood pressure 122 mm[Hg] Dr. Eugenio Mayen DO Work Phone: [facility] 01-01-2025 14:02-0400 Body height 180.[address] Eugenio Mayen DO Work Phone: [facility] 01-01-2025 14:02-0400 Body mass index (BMI) [Ratio] 22.1 kg/m2 Dr. Eugenio Mayen DO Work Phone: [facility] 01-01-2025 14:02-0400 Body temperature 98.1 [degF] Dr. Eugenio Mayen DO Work Phone: [facility] 01-01-2025 14:02-0400 Body weight 72.[address] Eugenio Mayen DO Work Phone: [facility] 11-25-2024 12:52-0500 Body temperature 98 [degF] Dr. Eugenio Mayen DO Work Phone: [facility] 11-25-2024 12:52-0500 Diastolic blood pressure 85 mm[Hg] Dr. Eugenio Mayen DO Work Phone: [facility] 11-25-2024 12:52-0500 Heart rate 80 /min Dr. Eugenio Mayen DO Work Phone: [facility] 11-25-2024 12:52-0500 Respiratory rate 16 /min Dr. Eugenio Mayen DO Work Phone: [facility] 11-25-2024 12:52-0500 SaO2% (BldA) [Mass fraction] 98 % Dr. Eugenio Mayen DO Work Phone: [facility] 11-25-2024 12:52-0500 Systolic blood pressure 136 mm[Hg] Dr. Eugenio Mayen DO Work Phone: [facility] 11-25-2024 10:50-0500 Body mass index (BMI) [Ratio] 22.1 kg/m2 Dr. Eugenio Mayen DO Work Phone: [facility] 11-25-2024 10:50-0500 Body weight 72.[address] Eugenio Mayen DO Work Phone: [facility] 11-12-2024 12:16-0500 Body mass index (BMI) [Ratio] 22.4 kg/m2 Dr. Eugenio Mayen DO Work Phone: [facility] 11-12-2024 12:16-0500 Body weight 73.[address] Eugenio Mayen DO Work Phone: [facility] 11-05-2024 18:53-0500 Body temperature 98 [degF] Dr. Eugenio Mayen DO Work Phone: [facility] 11-05-2024 18:53-0500 Diastolic blood pressure 88 mm[Hg] Dr. Eugenio Mayen DO Work Phone: [facility] 11-05-2024 18:53-0500 Heart rate 70 /min Dr. Eugenio Mayen DO Work Phone: [facility] 11-05-2024 18:53-0500 Respiratory rate 18 /min Dr. Eugenio Mayen DO Work Phone: [facility] 11-05-2024 18:53-0500 SaO2% (BldA) [Mass fraction] 97 % Dr. Eguenio Mayen DO Work Phone: [facility] 11-05-2024 18:53-0500 Systolic blood pressure 143 mm[Hg] Dr. Eugenio Mayen DO Work Phone: [facility] 11-05-2024 14:16-0500 Body mass index (BMI) [Ratio] 21.9 kg/m2 Dr. Eugenio Mayen DO Work Phone: [facility] 11-05-2024 14:16-0500 Body weight 71.[address] Eugenio Mayen DO Work Phone: [facility] 2024 10:11-0400 Body temperature 97.6 [degF] [facility] 2024 10:11-0400 Diastolic blood pressure 78 mm[Hg] [facility] 2024 10:11-0400 Heart rate 64 /min [facility] 2024 10:11-0400 Respiratory rate 14 /min [facility] 2024 10:11-0400 SaO2% (BldA) [Mass fraction] 99 % [facility] 2024 10:11-0400 Systolic blood pressure 124 mm[Hg] [facility] 2024 08:36-0400 Body height 180.34 cm [facility] 2024 08:36-0400 Body mass index (BMI) [Ratio] 23.7 kg/m2 [facility] 2024 08:36-0400 Body weight 77.06 kg [facility] 10-09-2023 15:12-0500 Heart rate 79 /min [facility] 10-09-2023 15:12-0500 Respiratory rate 17 /min [facility] 10-09-2023 15:12-0500 SaO2% (BldA) [Mass fraction] 97 % [facility] 10-09-2023 13:13-0500 Body height 180.34 cm [facility] 10-09-2023 13:13-0500 Body mass index (BMI) [Ratio] 21.8 kg/m2 [facility] 10-09-2023 13:13-0500 Body temperature 98.1 [degF] [facility] 10-09-2023 13:13-0500 Body weight 71 kg [facility] 10-09-2023 13:13-0500 Diastolic blood pressure 98 mm[Hg] [facility] 10-09-2023 13:13-0500 Systolic blood pressure 139 mm[Hg] [facility] 08-22-2023 08:33-0400 Body height 180.3 cm Hamilton Agarwal MD Work Phone: [facility] 08-22-2023 08:33-0400 Body weight 76.66 kg Hamilton Agarwal MD Work Phone: [facility] 08-22-2023 08:33-0400 Diastolic blood pressure 79 mm[Hg] Hamilton Agarwal MD Work Phone: [facility] 08-22-2023 08:33-0400 Heart rate 76 /min Hamilton Agarwal MD Work Phone: [facility] 08-22-2023 08:33-0400 SaO2% (BldA) [Mass fraction] 96 % Hamilton Agarwal MD Work Phone: [facility] 08-22-2023 08:33-0400 Systolic blood pressure 142 mm[Hg] Hamilton Agarwal MD Work Phone: [facility] 08-09-2023 15:50-0400 Diastolic blood pressure 84 mm[Hg] [facility] 08-09-2023 15:50-0400 Heart rate 18 /min [facility] 08-09-2023 15:50-0400 SaO2% (BldA) [Mass fraction] 98 % [facility] 08-09-2023 15:50-0400 Systolic blood pressure 146 mm[Hg] [facility] 08-09-2023 12:20-0400 Body height 180.34 cm [facility] 08-09-2023 12:20-0400 Body mass index (BMI) [Ratio] 23.7 kg/m2 [facility] 08-09-2023 12:20-0400 Body temperature 97.6 [degF] [facility] 08-09-2023 12:20-0400 Body weight 77.06 kg [facility] 08-09-2023 12:20-0400 Respiratory rate 14 /min [facility] 05-31-2023 10:22-0400 Body height 180.34 cm [facility] 05-31-2023 10:22-0400 Body mass index (BMI) [Ratio] 20.5 kg/m2 [facility] 05-31-2023 10:22-0400 Body temperature 97.1 [degF] [facility] 05-31-2023 10:22-0400 Body weight 66.67 kg [facility] 05-31-2023 10:22-0400 Diastolic blood pressure 76 mm[Hg] [facility] 05-31-2023 10:22-0400 Heart rate 96 /min [facility] 05-31-2023 10:22-0400 Respiratory rate 14 /min [facility] 05-31-2023 10:22-0400 SaO2% (BldA) [Mass fraction] 100 % [facility] 05-31-2023 10:22-0400 Systolic blood pressure 125 mm[Hg] [facility] 03-29-2023 09:49-0400 Body height 185.4 cm Lee Almonte MD Work Phone: [facility] 03-29-2023 09:49-0400 Body temperature 98.8 [degF] Lee Almonte MD Work Phone: [facility] 03-29-2023 09:49-0400 Body weight 66.22 kg Lee Almonte MD Work Phone: [facility] 03-29-2023 09:49-0400 Diastolic blood pressure 68 mm[Hg] Lee Almonte MD Work Phone: [facility] 03-29-2023 09:49-0400 Heart rate 78 /min Lee Almonte MD Work Phone: [facility] 03-29-2023 09:49-0400 Respiratory rate 18 /min Lee Almonte MD Work Phone: [facility] 03-29-2023 09:49-0400 SaO2% (BldA) [Mass fraction] 97 % Lee Almonte MD Work Phone: [facility] 03-29-2023 09:49-0400 Systolic blood pressure 120 mm[Hg] Lee Almonte MD Work Phone: [facility] 02-11-2023 18:33-0400 Diastolic blood pressure 74 mm[Hg] [facility] 02-11-2023 18:33-0400 Heart rate 48 /min [facility] 02-11-2023 18:33-0400 Respiratory rate 13 /min [facility] 02-11-2023 18:33-0400 SaO2% (BldA) [Mass fraction] 100 % [facility] 02-11-2023 18:33-0400 Systolic blood pressure 162 mm[Hg] [facility] 02-11-2023 14:23-0400 Body temperature 97 [degF] [facility] 02-11-2023 14:17-0400 Body height 180.34 cm [facility] 02-11-2023 14:17-0400 Body mass index (BMI) [Ratio] 22.7 kg/m2 [facility] 02-11-2023 14:17-0400 Body weight 74 kg [facility] 01-14-2023 00:16-0400 Diastolic blood pressure 72 mm[Hg] [facility] 01-14-2023 00:16-0400 Heart rate 63 /min [facility] 01-14-2023 00:16-0400 Respiratory rate 15 /min [facility] 01-14-2023 00:16-0400 SaO2% (BldA) [Mass fraction] 98 % [facility] 01-14-2023 00:16-0400 Systolic blood pressure 131 mm[Hg] [facility] 01-13-2023 20:43-0400 Body height 180.34 cm [facility] 01-13-2023 20:43-0400 Body mass index (BMI) [Ratio] 20.9 kg/m2 [facility] 01-13-2023 20:43-0400 Body temperature 97.9 [degF] [facility] 01-13-2023 20:43-0400 Body weight 68.1 kg [facility] 09-19-2022 16:06-0500 Body height 180.3 cm Hubert Jett MD Work Phone: [facility] 09-19-2022 16:06-0500 Body temperature 98.49 [degF] Hubert Jett MD Work Phone: [facility] 09-19-2022 16:06-0500 Body weight 71.67 kg Hubert Jett MD Work Phone: [facility] 09-19-2022 16:06-0500 Diastolic blood pressure 74 mm[Hg] Hubert Jett MD Work Phone: [facility] 09-19-2022 16:06-0500 Heart rate 88 /min Hubert Jett MD Work Phone: [facility] 09-19-2022 16:06-0500 SaO2% (BldA) [Mass fraction] 96 % Hubert Jett MD Work Phone: [facility] 09-19-2022 16:06-0500 Systolic blood pressure 128 mm[Hg] Hubert Jett MD Work Phone: [facility] 09-16-2022 13:18-0500 Respiratory rate 18 /min [facility] 09-16-2022 10:56-0500 Body height 180.34 cm [facility] Work Phone: 09-16-2022 10:56-0500 Body mass index (BMI) [Ratio] 21.7 kg/m2 [facility] 09-16-2022 10:56-0500 Body temperature 96.8 [degF] [facility] 09-16-2022 10:56-0500 Body weight 70.63 kg [facility] 09-16-2022 10:56-0500 Diastolic blood pressure 88 mm[Hg] [facility] 09-16-2022 10:56-0500 Heart rate 85 /min [facility] 09-16-2022 10:56-0500 SaO2% (BldA) [Mass fraction] 100 % [facility] 09-16-2022 10:56-0500 Systolic blood pressure 121 mm[Hg] [facility] 08-12-2022 11:26-0400 Diastolic blood pressure 94 mm[Hg] [facility] Work Phone: 08-12-2022 11:26-0400 Heart rate 58 /min [facility] Work Phone: 08-12-2022 11:26-0400 Respiratory rate 16 /min [facility] Work Phone: 08-12-2022 11:26-0400 SaO2% (BldA) [Mass fraction] 100 % [facility] Work Phone: 08-12-2022 11:26-0400 Systolic blood pressure 136 mm[Hg] [facility] Work Phone: 08-12-2022 09:18-0400 Body mass index (BMI) [Ratio] 21.9 kg/m2 [facility] Work Phone: 08-12-2022 09:18-0400 Body temperature 97.7 [degF] [facility] Work Phone: 08-12-2022 09:18-0400 Body weight 71.2 kg [facility] Work Phone: 08-04-2022 15:20-0400 Diastolic blood pressure 81 mm[Hg] [facility] Work Phone: 08-04-2022 15:20-0400 Heart rate 65 /min [facility] Work Phone: 08-04-2022 15:20-0400 Respiratory rate 17 /min [facility] Work Phone: 08-04-2022 15:20-0400 SaO2% (BldA) [Mass fraction] 97 % [facility] Work Phone: 08-04-2022 15:20-0400 Systolic blood pressure 123 mm[Hg] [facility] Work Phone: 08-04-2022 12:42-0400 Body mass index (BMI) [Ratio] 22.1 kg/m2 [facility] Work Phone: 08-04-2022 12:42-0400 Body temperature 97 [degF] [facility] Work Phone: 08-04-2022 12:42-0400 Body weight 71.8 kg [facility] Work Phone: 04-27-2022 11:24-0400 Diastolic blood pressure 87 mm[Hg] [facility] Work Phone: 04-27-2022 11:24-0400 Heart rate 64 /min [facility] Work Phone: 04-27-2022 11:24-0400 Systolic blood pressure 130 mm[Hg] [facility] Work Phone: 04-27-2022 11:08-0400 Body height 180.34 cm [facility] Work Phone: 04-27-2022 11:08-0400 Body mass index (BMI) [Ratio] 21.4 kg/m2 [facility] Work Phone: 04-27-2022 11:08-0400 Body temperature 97.3 [degF] [facility] Work Phone: 04-27-2022 11:08-0400 Body weight 69.85 kg [facility] Work Phone: 04-27-2022 11:08-0400 Respiratory rate 16 /min [facility] Work Phone: 04-27-2022 11:08-0400 SaO2% (BldA) [Mass fraction] 97 % [facility] Work Phone: 04-24-2022 18:08-0400 Body temperature 97.3 [degF] [facility] Work Phone: 04-24-2022 18:08-0400 Diastolic blood pressure 77 mm[Hg] [facility] Work Phone: 04-24-2022 18:08-0400 Heart rate 69 /min [facility] Work Phone: 04-24-2022 18:08-0400 Respiratory rate 16 /min [facility] Work Phone: 04-24-2022 18:08-0400 SaO2% (BldA) [Mass fraction] 99 % [facility] Work Phone: 04-24-2022 18:08-0400 Systolic blood pressure 142 mm[Hg] [facility] Work Phone: 04-24-2022 18:06-0400 Body height 180.34 cm [facility] Work Phone: 04-24-2022 18:06-0400 Body mass index (BMI) [Ratio] 21.5 kg/m2 [facility] Work Phone: 04-24-2022 18:06-0400 Body weight 70 kg [facility] Work Phone: 04-16-2022 17:09-0400 Diastolic blood pressure 79 mm[Hg] [facility] Work Phone: 04-16-2022 17:09-0400 Heart rate 87 /min [facility] Work Phone: 04-16-2022 17:09-0400 Respiratory rate 16 /min [facility] Work Phone: 04-16-2022 17:09-0400 SaO2% (BldA) [Mass fraction] 99 % [facility] Work Phone: 04-16-2022 17:09-0400 Systolic blood pressure 124 mm[Hg] [facility] Work Phone: 04-16-2022 14:42-0400 Body height 180.34 cm [facility] Work Phone: 04-16-2022 14:42-0400 Body mass index (BMI) [Ratio] 21.4 kg/m2 [facility] Work Phone: 04-16-2022 14:42-0400 Body temperature 98.4 [degF] [facility] Work Phone: 04-16-2022 14:42-0400 Body weight 69.85 kg [facility] Work Phone: 04-14-2022 19:38-0400 Diastolic blood pressure 74 mm[Hg] [facility] Work Phone: 04-14-2022 19:38-0400 Heart rate 50 /min [facility] Work Phone: 04-14-2022 19:38-0400 Respiratory rate 16 /min [facility] Work Phone: 04-14-2022 19:38-0400 SaO2% (BldA) [Mass fraction] 99 % [facility] Work Phone: 04-14-2022 19:38-0400 Systolic blood pressure 153 mm[Hg] [facility] Work Phone: 04-14-2022 17:37-0400 Body height 180.34 cm [facility] Work Phone: 04-14-2022 17:37-0400 Body mass index (BMI) [Ratio] 21.4 kg/m2 [facility] Work Phone: 04-14-2022 17:37-0400 Body temperature 97.5 [degF] [facility] Work Phone: 04-14-2022 17:37-0400 Body weight 69.85 kg [facility] Work Phone: 04-02-2022 23:28-0400 Diastolic blood pressure 67 mm[Hg] [facility] Work Phone: 04-02-2022 23:28-0400 Heart rate 60 /min [facility] Work Phone: 04-02-2022 23:28-0400 Respiratory rate 18 /min [facility] Work Phone: 04-02-2022 23:28-0400 SaO2% (BldA) [Mass fraction] 98 % [facility] Work Phone: 04-02-2022 23:28-0400 Systolic blood pressure 131 mm[Hg] [facility] Work Phone: 04-02-2022 21:22-0400 Body height 180.34 cm [facility] Work Phone: 04-02-2022 21:22-0400 Body mass index (BMI) [Ratio] 21.4 kg/m2 [facility] Work Phone: 04-02-2022 21:22-0400 Body temperature 97.6 [degF] [facility] Work Phone: 04-02-2022 21:22-0400 Body weight 69.85 kg [facility] Work Phone: 04-02-2022 08:24-0400 Body temperature 97.52 [degF] SARY LICEA DO [facility] 04-02-2022 08:24-0400 Diastolic blood pressure 98 mm[Hg] SARY LICEA DO [facility] 04-02-2022 08:24-0400 Heart rate 64 /min SARY LICEA DO [facility] 04-02-2022 08:24-0400 Respiratory rate 18 /min SARY LICEA DO [facility] 04-02-2022 08:24-0400 Systolic blood pressure 150 mm[Hg] SARY LICEA DO [facility] 03-24-2022 00:14-0400 Diastolic blood pressure 65 mm[Hg] [facility] Work Phone: 03-24-2022 00:14-0400 Heart rate 70 /min [facility] Work Phone: 03-24-2022 00:14-0400 Respiratory rate 15 /min [facility] Work Phone: 03-24-2022 00:14-0400 SaO2% (BldA) [Mass fraction] 97 % [facility] Work Phone: 03-24-2022 00:14-0400 Systolic blood pressure 117 mm[Hg] [facility] Work Phone: 03-23-2022 23:17-0400 Body height 180.34 cm [facility] Work Phone: 03-23-2022 23:17-0400 Body mass index (BMI) [Ratio] 21.4 kg/m2 [facility] Work Phone: 03-23-2022 23:17-0400 Body temperature 98 [degF] [facility] Work Phone: 03-23-2022 23:17-0400 Body weight 69.85 kg [facility] Work Phone: 03-09-2022 10:15-0400 Body height 185.42 cm [facility] Work Phone: 03-09-2022 10:15-0400 Body mass index (BMI) [Ratio] 20.2 kg/m2 [facility] Work Phone: 03-09-2022 10:15-0400 Body temperature 97.4 [degF] [facility] Work Phone: 03-09-2022 10:15-0400 Body weight 69.85 kg [facility] Work Phone: 03-09-2022 10:15-0400 Diastolic blood pressure 79 mm[Hg] [facility] Work Phone: 03-09-2022 10:15-0400 Heart rate 69 /min [facility] Work Phone: 03-09-2022 10:15-0400 Respiratory rate 15 /min [facility] Work Phone: 03-09-2022 10:15-0400 SaO2% (BldA) [Mass fraction] 99 % [facility] Work Phone: 03-09-2022 10:15-0400 Systolic blood pressure 120 mm[Hg] [facility] Work Phone: 03-08-2022 15:15-0400 Body height 185.4 cm Segun Joyner MD Work Phone: [facility] 03-08-2022 15:15-0400 Body mass index (BMI) [Ratio] 20.32 kg/m2 Segun Joyner MD Work Phone: [facility] 03-08-2022 15:15-0400 Body temperature 97.7 [degF] Segun Joyner MD Work Phone: [facility] 03-08-2022 15:15-0400 Body weight 69.85 kg Segun Joyner MD Work Phone: [facility] 03-08-2022 15:15-0400 Diastolic blood pressure 50 mm[Hg] Segun Joyner MD Work Phone: [facility] 03-08-2022 15:15-0400 Heart rate 68 /min Segun Joyner MD Work Phone: [facility] 03-08-2022 15:15-0400 Respiratory rate 16 /min Segun Joyner MD Work Phone: [facility] 03-08-2022 15:15-0400 SaO2% (BldA) [Mass fraction] 99 % Segun Joyner MD Work Phone: [facility] 03-08-2022 15:15-0400 Systolic blood pressure 99 mm[Hg] Segun Joyner MD Work Phone: [facility] 03-07-2022 15:31-0400 Diastolic blood pressure 86 mm[Hg] [facility] Work Phone: 03-07-2022 15:31-0400 Heart rate 88 /min [facility] Work Phone: 03-07-2022 15:31-0400 Respiratory rate 16 /min [facility] Work Phone: 03-07-2022 15:31-0400 Systolic blood pressure 139 mm[Hg] [facility] Work Phone: 03-07-2022 12:50-0400 Body height 185.42 cm [facility] Work Phone: 03-07-2022 12:50-0400 Body mass index (BMI) [Ratio] 20.2 kg/m2 [facility] Work Phone: 03-07-2022 12:50-0400 Body temperature 97.1 [degF] [facility] Work Phone: 03-07-2022 12:50-0400 Body weight 69.85 kg [facility] Work Phone: 03-07-2022 12:50-0400 SaO2% (BldA) [Mass fraction] 100 % [facility] Work Phone: 03-05-2022 12:38-0400 Body temperature 98.42 [degF] NAGA SOLIS MD [facility] 03-05-2022 12:38-0400 Diastolic blood pressure 87 mm[Hg] NAGA SOLIS MD [facility] 03-05-2022 12:38-0400 Heart rate 78 /min NAGA SOLIS MD [facility] 03-05-2022 12:38-0400 Respiratory rate 18 /min NAGA SOLIS MD [facility] 03-05-2022 12:38-0400 Systolic blood pressure 118 mm[Hg] NAGA SOLIS MD [facility] 03-01-2022 13:35-0400 Body temperature 98.24 [degF] LUZ ELENA MCNEILL MD [facility] 03-01-2022 13:35-0400 Diastolic blood pressure 93 mm[Hg] LUZ ELENA MCNEILL MD [facility] 03-01-2022 13:35-0400 Diastolic Blood Pressure NBP 93 1 LUZ ELENA MCNEILL MD [facility] 03-01-2022 13:35-0400 Heart rate 88 /min LUZ ELENA MCNEILL MD [facility] 03-01-2022 13:35-0400 Systolic blood pressure 136 mm[Hg] LUZ ELENA MCNEILL MD [facility] 03-01-2022 13:35-0400 Systolic Blood Pressure NBP 136 1 LUZ ELENA MCNEILL MD [facility] 02-27-2022 20:03-0400 Diastolic blood pressure 78 mm[Hg] [facility] Work Phone: 02-27-2022 20:03-0400 Heart rate 80 /min [facility] Work Phone: 02-27-2022 20:03-0400 Respiratory rate 18 /min [facility] Work Phone: 02-27-2022 20:03-0400 SaO2% (BldA) [Mass fraction] 96 % [facility] Work Phone: 02-27-2022 20:03-0400 Systolic blood pressure 130 mm[Hg] [facility] Work Phone: 02-27-2022 16:27-0400 Body height 180.34 cm [facility] Work Phone: 02-27-2022 16:27-0400 Body mass index (BMI) [Ratio] 22.3 kg/m2 [facility] Work Phone: 02-27-2022 16:27-0400 Body temperature 96.2 [degF] [facility] Work Phone: 02-27-2022 16:27-0400 Body weight 72.57 kg [facility] Work Phone: 02-26-2022 10:41-0400 Body temperature 98.78 [degF] DR HUGHES RIDER DO [facility] 02-26-2022 10:41-0400 Diastolic blood pressure 79 mm[Hg] DR HUGHES BONIFACIO DO [facility] 02-26-2022 10:41-0400 Heart rate 83 /min DR HUGHES BONIFACIO DO [facility] 02-26-2022 10:41-0400 Respiratory rate 18 /min DR HUGHES TILAER DO [facility] 02-26-2022 10:41-0400 Systolic blood pressure 137 mm[Hg] DR HUGHES BONIFACIO DO [facility] 01-12-2022 19:50-0400 Diastolic blood pressure 90 mm[Hg] [facility] Work Phone: 01-12-2022 19:50-0400 Heart rate 54 /min [facility] Work Phone: 01-12-2022 19:50-0400 Respiratory rate 18 /min [facility] Work Phone: 01-12-2022 19:50-0400 SaO2% (BldA) [Mass fraction] 97 % [facility] Work Phone: 01-12-2022 19:50-0400 Systolic blood pressure 159 mm[Hg] [facility] Work Phone: 01-12-2022 17:05-0400 Body mass index (BMI) [Ratio] 20.2 kg/m2 [facility] Work Phone: 01-12-2022 17:05-0400 Body temperature 96.8 [degF] [facility] Work Phone: 01-12-2022 17:05-0400 Body weight 69.85 kg [facility] Work Phone: 12-31-2021 17:28-0500 Body temperature 96.8 [degF] MUNIR DAUGHERTY MD [facility] 12-31-2021 17:28-0500 Diastolic blood pressure 45 mm[Hg] MUNIR DAUGHERTY MD [facility] 12-31-2021 17:28-0500 Heart rate 60 /min MUNIR DAUGHERTY MD [facility] 12-31-2021 17:28-0500 Respiratory rate 18 /min MUNIR DAUGHERTY MD [facility] 12-31-2021 17:28-0500 Systolic blood pressure 90 mm[Hg] MUNIR DAUGHERTY MD [facility] 12-04-2021 14:56-0500 Respiratory rate 16 /min [facility] Work Phone: 12-04-2021 11:38-0500 Body mass index (BMI) [Ratio] 23.1 kg/m2 [facility] Work Phone: 12-04-2021 11:38-0500 Body temperature 96.9 [degF] [facility] Work Phone: 12-04-2021 11:38-0500 Body weight 75 kg [facility] Work Phone: 12-04-2021 11:38-0500 Diastolic blood pressure 96 mm[Hg] [facility] Work Phone: 12-04-2021 11:38-0500 Heart rate 67 /min [facility] Work Phone: 12-04-2021 11:38-0500 SaO2% (BldA) [Mass fraction] 99 % [facility] Work Phone: 12-04-2021 11:38-0500 Systolic blood pressure 143 mm[Hg] [facility] Work Phone: 12-04-2021 11:23-0500 Body temperature 97.52 [degF] AJIT BARDALES MD [facility] 12-04-2021 11:23-0500 Diastolic blood pressure 61 mm[Hg] AJIT BARDALES MD [facility] 12-04-2021 11:23-0500 Heart rate 67 /min AJIT BARDALES MD [facility] 12-04-2021 11:23-0500 Respiratory rate 18 /min AJIT BARDALES MD [facility] 12-04-2021 11:23-0500 Systolic blood pressure 157 mm[Hg] AJIT BARDALES MD [facility] 09-10-2021 11:30-0500 Body temperature 98.06 [degF] MUNIR DAUGHERTY MD [facility] 09-10-2021 11:30-0500 Diastolic blood pressure 87 mm[Hg] MUNIR DAUGHERTY MD [facility] 09-10-2021 11:30-0500 Heart rate 85 /min MUNIR DAUGHERTY MD [facility] 09-10-2021 11:30-0500 Respiratory rate 18 /min MUNIR DAUGHERTY MD [facility] 09-10-2021 11:30-0500 Systolic blood pressure 149 mm[Hg] MUNIR DAUGHERTY MD [facility] 08-28-2021 11:40-0500 Body temperature 98.6 [degF] NAGA SOLIS MD [facility] 08-28-2021 11:40-0500 Diastolic blood pressure 90 mm[Hg] NAGA SOLIS MD [facility] 08-28-2021 11:40-0500 Heart rate 70 /min NAGA SOLIS MD [facility] 08-28-2021 11:40-0500 Respiratory rate 18 /min NAGA SOLIS MD [facility] 08-28-2021 11:40-0500 Systolic blood pressure 152 mm[Hg] NAGA SOLIS MD [facility] 06-26-2020 17:25-0400 BMI (Body Mass Index) 22.96 kg/m2 Nas Manzo [facility] 06-26-2020 17:25-0400 Body Temperature 98.1 [degF] [facility] 06-26-2020 17:25-0400 Body weight 78.93 kg Nas Leong [facility] , [facility] 06-26-2020 17:25-0400 BP Diastolic 79 mm[Hg] [facility] 06-26-2020 17:25-0400 BP Systolic 145 mm[Hg] [facility] 06-26-2020 17:25-0400 Height 185.4 cm [facility] 06-26-2020 17:25-0400 Pulse (Heart Rate) 55 /min [facility] 06-26-2020 17:25-0400 Pulse Oximetry 99 % [facility] 06-26-2020 17:25-0400 Respiratory Rate 16 /[facility] Encounter Date Encounter Type Care Provider Facility Start: 08-26-2025 End: 08-26-2025 Emergency department patient visit Eugenio Mayen Facility:[facility] Start: 06-19-2025 ambulatory EUGENIO MAYEN DO [facility] ty:[facility] Start: 06-15-2025 End: 06-15-2025 Emergency department patient visit Dr. Eugenio Mayen DO Work Phone: -Emergency Department Work Phone: Start: 06-11-2025 End: 06-11-2025 Emergency department patient visit Dr. Eugenio Mayen DO Work Phone: -Emergency Department Work Phone: Start: 05-31-2025 End: 05-31-2025 Emergency department patient visit Dr. Eugenio Mayen DO Work Phone: -Emergency Department Work Phone: Start: 05-29-2025 End: 05-29-2025 ambulatory EUGENIO MAYEN DO Facility[facility] Start: 05-29-2025 End: 05-29-2025 Patient encounter procedure EUGENIO MAYEN DO [facility] Start: 05-05-2025 ambulatory EUGENIO MAYEN DO Facili ty:[facility] Start: 04-27-2025 ambulatory EUGENIO MAYEN DO Facili ty:[facility] Start: 04-26-2025 End: 04-26-2025 Emergency department patient visit Dr. Eugenio Mayen DO Work Phone: -Emergency Department Work Phone: Start: 04-04-2025 End: 04-04-2025 Emergency department patient visit Dr. Eugenio Mayen DO Work Phone: -Emergency Department Work Phone: Start: 04-02-2025 End: 04-02-2025 ambulatory EUGENIO MAYEN DO [facility] Start: 04-02-2025 End: 04-02-2025 Patient encounter procedure EUGENIO MAYEN DO [facility] Start: 03-19-2025 End: 03-19-[address] Tyrone Fagan MD -[facility] Start: 03-19-2025 End: 03-19-[address] Eugenio Mayen DO Work Phone: [facility] Work Phone: Start: 02-23-2025 Emergency department patient visit GO RICE [facility] Start: 02-23-2025 End: 02-23-2025 Emergency department patient visit Go Rice MD Work Phone: [facility] Emergency Comment on above: Chest pain, unspecif ied type (Primary Dx); Pain of right lower extremity; Acute right-sided low back pain with right-sided sciatica Start: 01-26-2025 End: 01-26-2025 ambulatory EUGENIO MAYEN DO [facility] Start: 01-23-2025 End: 01-23-2025 ambulatory EUGENIO MAYEN DO [facility] Start: 01-14-2025 ambulatory EUGENIO MAYEN Facili ty[facility] Start: 01-08-2025 End: 01-08-2025 ambulatory EUGENIO RAMÓNMARII FLEMING [facility] Start: 01-03-2025 End: 01-03-2025 Emergency department patient visit Dr. Eugenio Mayen DO Work Phone: -Emergency Department Work Phone: Start: 01-01-2025 End: 01-01-2025 Emergency department patient visit Dr. Eugenio Mayen DO Work Phone: -Emergency Department Work Phone: Start: 12-22-2024 End: 12-22-[address] Eugenio Mayen DO Work Phone: [facility] Work Phone: Start: 12-22-2024 End: 12-22-2024 Patient encounter procedure Aiyana PRINCE -[facility] Work Phone: Start: 12-22-2024 End: 12-22-2024 ambulatory Eugenio Mayen Facility:[facility] Start: 12-18-2024 End: 12-22-2024 ambulatory EUGENIO RAMÓNMARII FLEMING [facility] Start: 12-15-2024 End: 12-15-[address] Jacob Dominguez MD -[facility] Work Phone: Start: 12-15-2024 End: 12-15-2024 ambulatory Eugenio Mayen Facility:[facility] Start: 12-08-2024 End: 12-08-[address] Jacob Dominguez MD -[facility] Work Phone: Start: 12-08-2024 End: 12-08-2024 ambulatory Eugenio Mayen Facility:[facility] Start: 11-25-2024 End: 11-25-2024 Emergency department patient visit Dr. Abril Velarde DO -Emergency Department Work Phone: Start: 11-18-2024 End: 11-18-2024 Patient encounter procedure Aiyana PRINCE -[facility] Work Phone: Start: 11-18-2024 End: 11-18-2024 ambulatory Eugenio Mayen Facility:[facility] Start: 11-13-2024 End: 11-13-[address] Jacob Dominguez MD -[facility] Work Phone: Start: 11-13-2024 End: 11-13-2024 ambulatory Eugenio Mayen Facility:[facility] Start: 11-05-2024 End: 11-05-2024 Emergency department patient visit Dr. Dennis Strickland DO -Emergency Department Work Phone: Start: 09-22-2024 End: 11-24-2024 ambulatory EUGENIO MELGARKO DO [facility] Start: 09-22-2024 End: 11-24-2024 Physical therapy management EUGENIO MAYEN DO [facility] Start: 09-11-2024 End: 09-11-2024 ambulatory EUGENIO MELGARKO DO [facility] Start: 09-11-2024 End: 09-11-2024 Patient encounter procedure EUGENIO MAYEN DO [facility] Start: 2024 End: 2024 Emergency department patient visit [facility] Work Phone: Start: 12-07-2023 End: 12-08-2023 ambulatory EUGENIO MELGARKO Facility:[facility] Start: 12-07-2023 End: 12-07-2023 Patient encounter procedure EUGENIO MELGARKO DO [facility] Start: 10-10-2023 ambulatory EUGENIO RAMÓNKO DO Facili ty:[facility] Start: 10-09-2023 End: 10-09-2023 Emergency department patient visit [facility] Work Phone: Start: 08-29-2023 ambulatory EUGENIO RAMÓNKO DO Facili ty:[facility] Start: 08-22-2023 ambulatory EUGENIO HALKO DO Facili ty:[facility] Start: 08-22-2023 End: 08-22-2023 Patient encounter procedure Hamilton Agarwal MD Work Phone: Pain Management Comment on above: Chronic pain syndrom e (Primary Dx) Start: 08-22-2023 End: 08-23-2023 ambulatory HAMILTON AGARWAL Facility:[id number] Start: 08-16-2023 ambulatory EUGENIO MAYEN DO Facili ty:[facility] Start: 08-10-2023 End: 08-11-2023 ambulatory EUGENIO MAYEN DO Facility:[facility] Start: 08-10-2023 End: 08-10-2023 Patient encounter procedure EUGENIO MAYEN DO [facility] Start: 08-09-2023 End: 08-09-2023 Emergency department patient visit [facility] Work Phone: Start: 06-21-2023 ambulatory HAMILTON AGARWAL Faci lity:[id number] Start: 05-31-2023 End: 05-31-2023 Emergency department patient visit [facility] Work Phone: Start: 05-23-2023 Telephone encounter Lee benítez MD Work Phone: [facility] Comment on above: Patient Question Start: 05-10-2023 End: 05-10-2023 ambulatory SARAI HALKO IV Facility:[facility] Start: 04-30-2023 End: 04-30-2023 ambulatory SARAI HALKO IV Facility:[facility] Start: 04-30-2023 Telephone encounter Lena salas MD Work Phone: Pain Management Comment on above: Appointment Start: 04-26-2023 Telephone encounter [facility] Provider J[facility] n Management Comment on above: Future Appointment ( Left Voice Mail) Start: 03-29-2023 End: 03-29-2023 ambulatory ASRAI HALKO IV Facility[facility] Start: 03-29-2023 End: 03-29-2023 Patient encounter procedure Lee Almonte MD Work Phone: [facility] Comment on above: Other fracture of un specified lumbar vertebra, initial encounter for closed fracture (HCC) (Primary Dx); Lumbar burst fracture, sequela Start: 03-27-2023 Telephone encounter Lee benítez MD Work Phone: [facility] Comment on above: Appointment Start: 03-26-2023 Telephone encounter Lee benítez MD Work Phone: [facility] Comment on above: Orders Start: 02-20-2023 End: 02-20-2023 Emergency department patient visit EUGENIO MAYEN IV Facility:[facility] Start: 02-11-2023 End: 02-13-2023 Evaluation and management of inpatient PRETTY CARDENAS Facility:[facility] Start: 02-11-2023 End: 02-11-2023 Emergency department patient visit [facility] Start: 01-13-2023 End: 01-14-2023 Emergency department patient visit [facility] Start: 12-15-2022 End: 12-16-2022 ambulatory EUGENIO RAMÓNMARII FLEMING Facility:[facility] Start: 12-15-2022 End: 12-15-2022 Patient encounter procedure EUGENIO RAMÓNKO DO [facility] Start: 12-13-2022 End: 12-14-2022 ambulatory EUGENIO MAYEN DO Facility:[facility] Start: 12-13-2022 End: 12-13-2022 Patient encounter procedure EUGENIO RAMÓNKO DO [facility] Start: 12-04-2022 End: 12-04-2022 Patient encounter procedure EUGENIO RAMÓNKO DO [facility] Start: 10-02-2022 End: 10-02-2022 Patient encounter procedure EUGENIO RAMÓNKO DO [facility] Start: 09-19-2022 End: 09-19-2022 ambulatory EUGENIO MAYEN IV Facility:[facility] Start: 09-19-2022 End: 09-19-2022 Patient encounter procedure Hubert Jett MD Work Phone: General Surgery Comment on above: Anal fissure (Primar y Dx) Start: 09-19-2022 End: 09-19-2022 Patient encounter procedure DOUG RM DO [facility] Start: 09-16-2022 End: 09-16-2022 Emergency department patient visit [facility] Start: 09-04-2022 End: 09-04-2022 Patient encounter procedure EUGENIO MAYEN DO [facility] Start: 08-12-2022 End: 08-12-2022 Emergency department patient visit [facility] Start: 08-04-2022 End: 08-04-2022 Emergency department patient visit [facility] Start: 07-24-2022 End: 07-24-2022 Patient encounter procedure EUGENIO MAYEN DO [facility] Start: 04-27-2022 End: 04-27-2022 Emergency department patient visit [facility] Start: 04-24-2022 End: 04-24-2022 Emergency department patient visit [facility] Start: 04-16-2022 End: 04-16-2022 Emergency department patient visit [facility] Start: 04-14-2022 End: 04-14-2022 Emergency department patient visit [facility] Start: 04-02-2022 End: 04-03-2022 Emergency department patient visit [facility] Start: 04-02-2022 End: 04-02-2022 Emergency department patient visit SARY LICEA DO [facility] Start: 03-26-2022 End: 03-26-2022 Emergency department patient visit DR BASIM TOUSSAINT [facility] Start: 03-23-2022 End: 03-24-2022 Emergency department patient visit [facility] Start: 03-09-2022 End: 03-09-2022 Emergency department patient visit [facility] Start: 03-08-2022 End: 03-12-2022 Outreach Lab EUGENIO MAYEN DO [facility] Start: 03-08-2022 End: 03-08-2022 Emergency department patient visit Segun Joyner MD Work Phone: [facility] Comment on above: Acute sciatica (Prim darron Dx) Start: 03-07-2022 End: 03-07-2022 Emergency department patient visit [facility] Start: 03-07-2022 End: 03-07-2022 Patient encounter procedure ANT RAMSEY MD [facility] Start: 03-05-2022 End: 03-05-2022 Emergency department patient visit NAGA SOLIS MD [facility] Start: 03-01-2022 End: 03-01-2022 Emergency department patient visit LUZ ELENA MCNEILL MD [facility] Start: 02-27-2022 End: 02-27-2022 Emergency department patient visit [facility] Start: 02-27-2022 End: 02-27-2022 Emergency department patient visit SARY LICEA DO [facility] Start: 02-26-2022 End: 02-26-2022 Emergency department patient visit DR ELLEN VALDOVINOS DO [facility] Start: 02-17-2022 End: 02-17-2022 Patient encounter procedure EUGENIO MAYEN DO [facility] Start: 01-12-2022 End: 01-12-2022 Emergency department patient visit [facility] Start: 12-31-2021 End: 12-31-2021 Emergency department patient visit MUNIR DAUGHERTY MD [facility] Start: 12-04-2021 End: 12-04-2021 Emergency department patient visit [facility] Start: 12-04-2021 End: 12-04-2021 Emergency department patient visit AJIT BARDALES MD [facility] Start: 09-10-2021 End: 09-10-2021 Emergency department patient visit MUNIR DAUGHERTY MD [facility] Start: 08-28-2021 End: 08-28-2021 Emergency department patient visit NAGA SOLIS MD [facility] Start: 04-15-2021 Rx Renewal Eugenio asher Work Phone: [facility] Work Phone: Start: 06-26-2020 End: 06-26-2020 Emergency department patient visit Nas Leong Work Phone: [facility] Comment on above: Lumbar contusion, in itial encounter (Primary Dx); Sprain of left wrist, initial encounter Start: 11-01-2017 End: 11-01-2017 Emergency department patient visit [facility] Start: 09-24-2017 End: 09-24-2017 Ambulatory [facility] Start: 05-29-2017 [facility] Start: 05-28-2017 [facility]ulatory [facility] Procedures Date Procedure Procedure Detail Performing Clinician Start: 06-15-2025 Computed tomography of thoracic spine without contrast Dr. Eugenio Mayen DO Work Phone: Start: 06-15-2025 CT of lumbar spine Dr. Eugenio Mayen DO Work Phone: Start: 05-31-[address] Eugenio [...] Comment: Speci men Type: BLOOD SPECIMENOrdering Facility: [facility] Address: [address] [place] [phone] Performed By: #### T SCR ####[facility] BLOOD BANKCLIA [id number] [place] [address] [place] Start: 02-11-2023 Pelvis [...] shoulder compl ete minimum 2 views Nas Leong Work Phone: Start: 06-26-2020 Radex spine lumbosac ral 2/3 views Nas Leong Work Phone: Start: 06-26-2020 Radex wrist complete [...] DTaP,Tdap,Td Vaccine (3 - Td or Tdap) [facility] Start: 02-13-2026 DIABETES SCREEN DIABETES SCREEN [facility] Start: 02-13-2026 Diabetes Screening Diabetes Screenin g [facility] Start: 06-16-2025 [facility] Start: 06-11-2025 [facility] Start: 05-31-2025 [facility] Start: 04-26-2025 [facility] Start: 04-04-2025 [facility] Start: 03-19-2025 Patient referral [facility] Work Phone: Start: 03-19-2025 X-ray of lumbosacral spine L/S Spine Bending Flex/Ext [facility] Start: 03-19-2025 XR Spine Lumbar and Sacrum Views [facility] Start: 01-03-2025 [facility] Start: 01-01-2025 End: 01-01-2025 [facility] Start: 11-25-2024 [facility] Start: 11-05-2024 [facility] Start: 2024 [facility] Start: 10-09-2023 [facility] Start: 08-09-2023 [facility] Start: 06-22-2023 Influenza vaccination [facility] Start: 11-03-2022 DIABETES SCREEN DIABETES SCREEN [facility] Start: 10-22-2022 ADVANCE DIRECTIVE DISCUSSION ADVANCE DIRECTIVE DISCUSSION [facility] Start: 10-22-2022 [facility]ION [facility]MENT [facility] Start: 08-30-2022 Lipid 1996 panel - S david or Plasma Lipid Screening [facility] Start: 08-30-2022 LIPID SCREEN LIPID SCREEN [facility] Start: 08-30-2022 PROSTATE CANCER SCREENING DISCUSSION PROSTATE CANCER SCREENING DISCUSSION [facility] Start: 06-22-2022 Influenza vaccination S [facility] Start: 04-24-2022 Referral to service [facility] Work Phone: Start: 10-22-2021 ADVANCE DIRECTIVE DISCUSSION ADVANCE DIRECTIVE DISCUSSION [facility] Start: 10-22-2021 DEPRESSION ASSESSMENT [facility] Start: 02-05-2021 Pneumococcal Vaccine : 65+ (1 - PCV) Pneumococcal Vaccine: 65+ (1 - PCV) [facility] Start: 02-05-2021 PNEUMOCOCCAL: 65+ (1 - PCV) PNEUMOCOCCAL: 65+ (1 - PCV) [facility] Start: 06-22-2020 Influenza vaccination Flu vaccine (# 1) [facility] [place] [place] Start: 2016 RSV Vaccine (1 - 1-d ose 60+ series) RSV Vaccine (1 - 1-dose 60+ series) [facility] Start: 02-05-2006 SHINGRIX VACCINE (1 of 2) SHINGRIX VACCINE (1 of 2) [facility] Start: 02-05-2001 COLOGUARD (FIT-DNA) COLOGUARD (FIT-D NA) [facility] Start: 02-05-2001 Colonoscopy COLONOSCOPY [facility] Start: 02-05-2001 COLORECTAL CANCER SCREENING COLORECTAL CANCER SCREENING [facility] Start: 02-05-[address] [facility] Start: 02-05-2001 FECAL OCCULT BLOOD FECAL OCCULT BLOO D [facility] Start: 02-05-2001 SIGMOIDOSCOPY SIGMOIDOSCOPY [facility] Start: 02-05-1975 Urine microalbumin profile DTAP,TDAP,TD (1 - Tdap) [facility] Start: 02-05-1974 HEPATITIS C SCREENING HEPATITIS C SC REEALEX [facility] Start: 02-05-1961 COVID-19 Vaccine (1) COVID-19 Vaccin e (1) [facility] Start: 1955 COVID-19 VACCINE (#1) COVID-19 VACCI NE (#1) [facility] Start: 1955 ABDOMINAL AORTIC ANEURYSM SCREENING ABDOMINAL AORTIC ANEURYSM SCREENING [facility] End: 04-27-2024 Mri spinal canal lumbar w/o contrast material MRI LUMBAR SPINE WO IVCON Radiology Routine Other fracture of unspecified lumbar vertebra, initial encounter for closed fracture (HCC) 1 Occurrences starting 03/29/2023 until 04/27/2024 [facility] Work Phone: Comment on above: 1 Occurrences starti ng 03/29/2023 until 04/27/2024 Patient Education [facility] Work Phone: Patient referral [facility] Work Phone: [facility] Immunizations Immunization Date Immunization Notes Care Provider Manju woods 11-06-2024 tetanus toxoid, redu gaby diphtheria toxoid, and acellular pertussis vaccine, adsorbed; Translations: [Boostrix (Tdap)] EUGENIO MAYEN DO [facility] 10-02-2024 Pneumococcal conjuga te PCV20, polysaccharide [id number] conjugate, adjuvant, PF; Translations: [Prevnar 20] EUGENIO MAYEN DO [facility] 09-11-2024 influenza, high dose seasonal, preservative-free; Translations: [Afluria PF Prefilled Syringe ] EUGENIO MAYEN DO [facility] 09-24-2023 influenza, high dose seasonal, preservative-free; Translations: [Fluad Quadrivalent PF ] EUGENIO MAYEN [facility] 06-15-2018 tetanus toxoid, redu gaby diphtheria toxoid, and acellular pertussis vaccine, adsorbed NAGA SOLIS MD [facility] 06-15-2018 diphtheria and tetan us toxoids, adsorbed for pediatric use EUGENIO MAYEN [facility] Comment on above: Result Comment: Unit : Unknown Route: Intramuscular [employer] 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 Payers Date Payer Category Payer Self-pay [id number] 2022 Medicaid [id number] 2017 Unknown 2017 Medicaid HMO [employer] [place] [employer] [id number] 1998 Medicaid [id number]. [id number] 1998 Unknown [id number] 1956 Unknown [id number] 2.16.840.1.337227.3.579.2.651 1956 Unknown [id number] 2.16.840.1.281756.3.579.2.627 1956 Unknown [id number] 2.16.840.1.260846.3.579.2.627 1956 Unknown [id number] 2.16.840.1.796561.3.579.2. 1956 Unknown [id number] 2.16.840.1.256361.3.579.2.62 1956 Unknown [id number] 2.16.840.1.854984.3.579.2.62 1956 Unknown [id number] 2.16.840.1.649735.3.579.2.627 1956 Unknown [id number] 2.16.840.1.984792.3.579.2.62 1956 Unknown [id number] 2.16.840.1.661987.3.579.2.627 1956 Unknown [id number] 2.16.840.1.114923.3.579.2.201 1956 Unknown [id number] 2.16.840.1.594861.3.579.2.201 1956 Unknown [id number] 2.16.840.1.204716.3.579.2.201 1956 Unknown [id number] 2.16.840.1.459214.3.579.2.627 1956 Unknown [id number] 2.16.840.1.338315.3.579.2.62 1956 Unknown [id number] 2..840.1.946576.3.579.2.62 1956 Unknown [id number] ..840.1.204068.3.579.2. 1956 Unknown [id number] 2..840.1.121991.3.579.2. 1956 Unknown [id number] .840.1.385637.3.579.2. 1956 Unknown [id number] .840.1.932242.3.579.2. 1956 Unknown [id number] .840.1.516523.3.579.2 1956 Unknown [id number] .840.1.815955.3.579.2. 1956 Unknown [id number] .840.1.118615.3.579.2. 1956 Unknown [id number] 840.1.129588.3.579.2 1956 Unknown [id number] .840.1.592620.3.579.2.627 Unknown [id number] 840.1.461516.3.579.2.462 Unknown [id number] .840.1.849893.3.579.2.462 Unknown [id number] .840.1.347277.3.579.2.462 Unknown [id number] .840.1.713754.3.579.2.462 Unknown [id number] 2.840.1.969584.3.579.2.462 Unknown [id number] 2.840.1.185859.3.579.2.462 Unknown [id number] 2.840.1.030241.3.579.2.462 Unknown [id number] 2.16.840.1.354715.3.579.2.462 Unknown [id number] 2.16.840.1.555932.3.579.2.462 Unknown [id number] 2.16.840.1.265340.3.579.2.462 Unknown [id number] 2.16.840.1.007347.3.579.2.462 Unknown [id number] 2.16.840.1.021840.3.579.2.462 Unknown [id number] 2.16.840.1.114453.3.579.2.462 Unknown [id number] 2.16.840.1.366689.3.579.2.462 Unknown [id number] 2.16.840.1.114689.3.579.2.462 Unknown [id number] 2.16.840.1.384964.3.579.2.462 Unknown [id number] 2.16.840.1.584583.3.579.2.462 Unknown [id number] 2.16.840.1.742212.3.579.2.462 Social History Date Type Detail Facility Start: 06-26-2020 End: 06-15-2025 Tobacco smoking status NHIS Former smoker [place], [place] Start: 06-26-2020 End: 08-22-2023 Alcohol intake Current non-drinker of alcohol (finding) [place], [place] Start: 1955 Sex Assigned At Not on file M [place], [place] Start: 02-26-2022 End: 09-19-2022 Exposure to SARS-CoV-2 (event) Not sure [place], [place] Start: 03-29-2023 End: 02-23-2025 Rarely consumes alcohol Rarely consumes alcohol [facility] Sex Assigned At [facility] Start: 02-27-2022 End: 2024 Tobacco smoking status NHIS Unknown if ever smoked [facility] Start: 02-10-2019 None [facility] Start: 02-10-2019 Alone [facility] Start: 1955 Sex Assigned At [facility] Start: 05-28-2017 End: 02-23-2025 Tobacco use and exposure Smokeless tobacco non-user [facility] Work Phone: End: 10-22-1997 History of tobacco use Current smoker [facility] End: 10-22-1997 History of tobacco use Cigarette Smoker [facility] Start: 09-19-2022 Tobacco Comment Quit [address] [facility] Start: 01-28-2019 Alcohol Comment Quit [address] [facility] Start: 02-12-2023 History SDOH Financial [address] [facility] Start: 02-12-2023 History SDOH Food Worry [address] [facility] Start: 02-12-2023 History SDOH Transpo rt Med [address] [facility] Start: 03-29-2023 End: 02-23-2025 Tobacco use panel [facility] How hard is it for y ou to pay for the very basics like food, housing, medical care, and heating Not hard at all [facility] (I/We) worried rebeca er (my/our) food would run out before (I/we) got money to buy more. Never true [facility] In the past 12 month s, was there a time when you were not able to pay the mortgage or rent on time? No [facility] Start: 08-12-2014 End: 01-03-2025 Sex Male (finding) [facility] History of tobacco use Passive smoker [facility] Start: 02-23-2025 Alcoholic beverage intake Ex-drinker (finding) [facility] Functional Status Date Assessment Result Facility 02-23-2025 Are you deaf, or do you have serious difficulty hearing No 02/23/2025 5:07 AM Nataliya Womack RN [facility] 02-23-2025 Are you blind, or do you have serious difficulty seeing, even when wearing glasses No 02/23/2025 5:07 AM Nataliya Womack RN [facility] 02-23-2025 Do you have serious difficulty walking or climbing stairs No 02/23/2025 5:07 AM Nataliya Womack, CHRISTINE No [facility] 02-23-2025 Do you have difficul ty dressing or bathing No 02/23/2025 5:07 AM Nataliya Womack, CHRISTINE [facility] 02-23-2025 Because of a physica l, mental, or emotional condition, do you have difficulty doing errands alone such as visiting a physician's office or shopping No 02/23/2025 5:07 AM Nataliya Womack, CHRISTINE [facility] 04-02-2022 Functional Status ID band on, Allergy Band on, Call device within reach, Bed in low position, Wheels locked, Upper/Half-Length side-rails up, Phone within reach, personal items within reach, Assistive devices within reach, Toileting device within reach, Bedside Cart Locked, Visitor at bedside, Safety level maintained [facility] 03-05-2022 Functional Status [facility] 03-01-2022 Functional Status [facility] 02-26-2022 Functional Status [facility] Mental Status Date Assessment Result Facility 02-23-2025 Because of a physica l, mental, or emotional condition, do you have serious difficulty concentrating, remembering, or making decisions No 02/23/2025 5:07 AM Nataliya Womack, CHRISTINE [facility] 11-25-2024 Cognitive function Level Of Cons ciousness Awake;Alert [facility] Work Phone: 04-02-2022 Mental Status Oriented x 4 [facility] 03-05-2022 Mental Status [facility] 03-01-2022 Mental Status [facility] 02-26-2022 Mental Status Angelica [facility] Clinical Notes 08-05-2020 to 06-15-2025 Note Date & Type Note Facility 06-15-2025 Radiology Diagnostic study note [facility] Imaging Services [address] [place] [address] Spine Thoracic without Contras MR#: [id number] Acct: [id number] Name: WINSTON MARI Rep #: [id number] : 1955 M 70 From: Manny Carvalho MD PCP: Dr. Eugenio Mayen, DO Status: REG ER Study:Spine Thoracic without Contras Date of Exam: 06/15/25 Exam# [id number] Ordering Dr: Brett Gonzales MD PROCEDURE: CT SPINE THORACIC; SPINE LUMBAR WITHOUT CONTRAST 06/15/2025 REASON FOR EXAM: BACK PAIN; MIDLINE BACK PAIN TECHNIQUE: CT of the thoracic and lumbar spine without contrast. Coronal and Sagittal reconstruction series were provided. One or more dose reduction techniques were used (e.g., Automated exposure control, adjustment of the mA and/or kV according to patient size, use of iterative reconstruction technique). RADIATION DOSE SUMMARY: DLP: 1288.28 mGycm COMPARISON: 04/26/2025. FINDINGS: No evidence of acute fracture. Stable appearance of multiple chronic appearing mild superior endplate compression fracture deformities involving T6, T9, L2, L4 and L5 vertebral bodies. No subluxation orretropulsion. No significant spinal canal or high-grade osseous neural foraminal narrowing. Mild multilevel spondylotic changes with varying degrees of disc space narrowing with vacuum disc phenomena, endplate sclerosis, anterior endplate osteophytosis,and hypertrophic facet arthropathy. Unremarkable paravertebral soft tissues. Mild-moderate bilateral centrilobular pulmonary emphysema. Unchanged 6 mm nodule in the right lower lobe, probably postinflammatory but nonspecific. Calcified leftmediastinal/hilar lymph nodes, and numerous calcified granulomas in the spleen suggesting a prior granulomatous process. Few bilateral simple appearing renal cysts. Moderate aortoiliac atherosclerotic disease, with stable mild fusiform ectasia of the infrarenal abdominal aorta. CT/Spine Thoracic without Contras IMPRESSION: No evidence of acute fracture or malalignment. Similar appearance of mild multilevel spondylotic changes, and several mild chronic superior endplate compression fracture deformities of T6, T9, L2, L4 andL5. Reading Location: [id number] CC: Dr. Kezia Gonzales MD; Dr. Eugenio Mayen DO ~ Fashion Coordinator: Signed [facility] 06-15-2025 Radiology Diagnostic study note [facility] Imaging Services [address] [place], [place] [id number] Spine Lumbar without Contrast MR#: [id number] Acct: [id number] Name: WINSTON MARI Rep #: [id number] : 1955 M 70 From: Manny Carvalho MD PCP: Dr. Eugenio Mayen DO Status: REG ER Study:Spine Lumbar without Contrast Date of E xam: 06/15/25 Exam# [id number] Ordering Dr: Brett Gonzales MD PROCEDURE: CT SPINE THORACIC; SPINE LUMBAR WITHOUT CONTRAST 06/15/2025 REASON FOR EXAM: BACK PAIN; MIDLINE BACK PAIN TECHNIQUE: CT of the thoracic and lumbar spine without contrast. Coronal and Sagittal reconstruction series were provided. One or more dose reduction techniques were used (e.g., Automated exposure control, adjustment of the mA and/or kV according to patient size, use of iterative reconstruction technique). RADIATION DOSE SUMMARY: DLP: 1288.28 mGycm COMPARISON: 04/26/2025. FINDINGS: No evidence of acute fracture. Stable appearance of multiple chronic appearing mild superior endplate compression fracture deformities involving T6, T9, L2, L4 and L5 vertebral bodies. No subluxation orretropulsion. No significant spinal canal or high-grade osseous neural foraminal narrowing. Mild multilevel spondylotic changes with varying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 Urine Protein Negative Urine Glucose (UA) [...] Chief Complaint: Flank Pain ED Midlevel Provider: Angelina Franks ED Provider: Ken Mari Dx/Rx/DC Orders Prescriptions: No Action ferrous sulfate 325 mg (65 mg iron) tablet 325 mg PO QDAY pantoprazole 40 mg tablet,delayed release (DR/EC) 40 mg PO QDAY gabapentin 300 mg capsule 300 mg PO 4X/DAY hydrocortisone acetate [Anusol-HC] 25 mg suppository 25 mg MD QHS Qty: 12 0RF atorvastatin [Lipitor] 40 [...] Qty: 10 0RF Primary Care Provider: Eugenio Mayen: Eugenio Mayen DO [Primary Care Provider] - Print Language: Cymro What to do if you have Problems For any increased pain, shortness of breath, bleeding, nausea or vomiting, chestpain, or any unexpected problems, contact your Primary Care Provider. Call [facility] ([phone]) or report tothe closest Emergency Room. Call 911 if necessary. 01/03/25 1842 Cosigner Signature (if applicable): 01/03/25 1836 CC: Dr. Eugenio Mayen DO ~ Signed [facility]03-15-2025 Discharge summary Author Angelina Franks [facility] Note Date/Time January 03, 2025 6:4 2pm [facility] Medical Records Department [address] [facility] [place] [address] Emergency Department Summary 01/03/25 MR#: [id number] Acct: [id number] Name: WINSTON MARI Rep #:[id number] : 1955 69 From: Angelina PRINCE PCP: Dr. Eugenio Mayen DO Status:REG [...] penile discharge. No fever chills or vomiting. [facility] <NIKI Bird - Last Filed: 01/03/25 18:42> [facility] Medical History Left rotator cuff tear Anemia GERD (gastroesophageal reflux disease) Left shoulder pain Hemorrhoid Epilepsy Sciatica High cholesterol Home Medications ?Medication ?Instructions ?Recorded ?Last Taken ?Type gabapentin 300 mg capsule 300 mg PO 4X/DAY 04/02/22 Un known History hydrocortisone acetate 25 mg 25 mg MD QHS #12 ea 04/27 Unknown Rx rectal [...] AdvReac Rash Verified 01/03/25 16:39 hydrocodone (From [place]) AdvReac Upset Verified 01/03/25 16:39 Stomach ibuprofen [...] <NIKI Bird - Last Filed: 01/03/25 18:42> MDM MDM Narrative Medical decision making narrative: [...] of the patient and have reviewed the ELLIS Note. I performed a substantive portion of the visit including all aspects of the following. My clark findings include: History is [ 69-year-old male flank pain.] Seen the other day had a large workup including CT and UA which were negative. On ELLIS's exam appeared to be musculoskeletal pain. Exam [...] Clarity Clear Urine pH 7.0 Ur Specific [place] 1.010 Urine Protein Negative Urine Glucose (UA) [...] Mari MD - Last Filed: 01/03/25 18:36> MDM MDM Narrative Medical decision making narrative: I have personally performed a face to face assessment of the patient and have reviewed the ELLIS Note. I performed a substantive portion of the visit including all aspects of the following. My clark findings include: History is [ 69-year-old male flank pain.] Seen the other day had a large workup including CT and UA which were negative. On ELLIS's exam appeared to be musculoskeletal pain. Exam [...] Clarity Clear Urine pH 7.0 Ur Specific [place] 1.010 Urine Protein Negative Urine Glucose (UA) [...] Chief Complaint: Flank Pain ED Midlevel Provider: Angelina Franks ED Provider: Ken Mari Dx/Rx/DC Orders Prescriptions: No Action ferrous sulfate 325 mg (65 mg iron) tablet 325 mg PO QDAY pantoprazole 40 mg tablet,delayed release (DR/EC) 40 mg PO QDAY gabapentin 300 mg capsule 300 mg PO 4X/DAY hydrocortisone acetate [Anusol-HC] 25 mg suppository 25 mg MD QHS Qty: 12 0RF atorvastatin [Lipitor] 40 [...] DO [Primary Care Provider] - Print Language: Cymro What to do if you have Problems For any increased pain, shortness of breath, bleeding, nausea or vomiting, chestpain, or any unexpected problems, contact your Primary Care Provider. Call [facility] ([phone]) or report to the closest Emergency Room. Call 911 if necessary. 01/03/25 184 <Electronically signed by Angelina PRINCE> Cosigner Signature (if applicable): 01/03/25 183 <Electronically signed by Ken Mari MD> CC: Dr. Eugeino Mayen DO ~ Signed [facility] Work Phone: 1(191) 987-160303-13-2025 Radiology Diagnostic study note [facility] Imaging Services [address] [place], [place] [address] Abdomen/Pelvis without Cont MR#: [id number] Acct: [id number] Name: WINSTON MARI Rep #: [id number] : 1955 M 69 From: Saranya Del Cid MD PCP: Dr. Eugenio Mayen DO Status: REG ER Study:Abdomen/Pelvis without Cont Date of Exa m: 01/01/25 Exam# [id number] Ordering Dr: Dean Del Cid DO EXAM: [...] Colonic diverticulosis without acute diverticulitis. Reading [facility] CC: Dr. Eugenio Mayen DO; Dr. Dean Del Cid DO ~ Fashion Coordinator: Signed [facility]02-24-2025 Evaluation note* Diagnosis Onset Date Resolution Status Admit Date Left rotator cuff tear acute Fe bruary 2024 10:45am Left shoulder pain acute ua 2024 10:45am [facility] Work Phone: 1(659) 534-974002-24-2025 Evaluation note* Diagnosis Onset Date Resolution Status Admit Date Left rotator cuff tear acute Fe bruary 2024 10:45am Left shoulder pain acute ua 2024 10:45am Degenerative disc disease, lumbar acute March 19, 2025 9 :49am [facility] Work Phone: 1(971) 910-774001-23-2025 Evaluation note* Diagnosis Onset Date Resolution Status Admit Date Left shoulder pain acute Januar y 2024 1:55pm Degenerative disc disease, lumbar acute November 18 1:21pm Compression fx, lumbar spine inactiv e November 18, 2024 1:21pm Foot drop, left noneactive October 232024 1:21pm Left rotator cuff tear acute Fe bruary 2024 10:45am Left shoulder pain acute Februa ry 2024 10:45am [facility] Work Phone: 1(373) 991-528611-01-2023 NoteHNO ID: [id number] Author: Hamilton Agarwal MD Service: ? Author [...] times a day from Dr. Mayen in [place]. As above, note from Dr. Almonte indicates [...] past in at a pain center in [place]. Patient indicates he decided against kyphoplasty. He is not following up with neurosurgery. Patient absolutely does not want any spinal injections again. He has agreed to try a TENS unit. There is a new TENS unit technology from a company called [employer]. This was prescribed for him. Gave him the phone number that way if he is not contacted within the next week, he has a phone number to call. He will follow-up with us on a as needed basis. We could consider IV lidocaine infusions in the future. Patient agrees to the above.[facility]11-01-2023 History of Present illness Narrative* [...] times a day from Dr. Mayen in [place]. As above, note from Dr. Almonte indicates [...] past in at a pain center in [place]. Patient indicates he decided against kyphoplasty. He is not following up with neurosurgery. Patient absolutely does not want any spinal injections again. He has agreed to try a TENS unit. There is a new TENS unit technology from a company called [employer]. This was prescribed for him. Gave him the phone number that way if he is not contacted within the next week, he has a phone number to call. He will follow-up with us on a as needed basis. We could consider IV lidocaine infusions in the future. Patient agrees to the above. documented in this encounterMer[facility]23 Discharge summary Author Gene Cristina [facility] August 09, 2023 3:24pm Note Date/Time August 09, 2023 2 :37pm [facility] Medical Records Department [address] [place] [address] Emergency Department Summary 08/09/23 MR#: [id number] Acct: [id number] Name: WINSTON MARI Rep #:[id number] : 1955 68 From: Gene Cristina MD [...] and L4 fracture. He was transferred to [facility]. They fitted him for a TLSO brace [...] to walk. He never hit his head. [facility] Medical History Epilepsy Hemorrhoid High cholesterol [...] 25 mg rectal suppository (Anusol-HC) 25 mg MD QHS #12 ea 04/27/22 [Rx Last Taken [...] AdvReac Rash Verified 05/31/23 10:23 hydrocodone [From [place]] AdvReac Upset Verified 05/31/23 10:23 Stomach ibuprofen [...] acetate [Anusol-HC] 25 mg suppository 25 mg MD QHS Qty: 12 0RF atorvastatin [Lipitor] 40 [...] your Primary Care Provider. Call [facility] ([phone]) or report to the closest Emergency Room. Call 911 if necessary. 08/09/23 1524 <Electronically signed by Gene Cristina MD> Cosigner Signature (if applicable): CC: Dr. Eugenio Mayen DO ~ Signed [facility] Work Phone: 1(797) 236-267008-02-2023 Miscellaneous Notes* Telephone Encounter - Donna Phillip [...] to proceed with surgery. documented in this encounterMercy Health St. [facility]07-17-2023 NoteHNO ID: [id number] Author: Lee Almonte MD Service: ? Author Type: Physician Type: Progress Notes Filed: 05/10/2023 11:35 AM Note Text: NEUROSURGERY FOLLOW UP OFFICE NOTE Lee Almonte MD Date of visit: May 10, 2023 Patient Name: Mr.Johnnie Paul Mari Date of : 1955 Current Age: [age] year old Sex: male MRN/E# [id number] Last Office Visit: 03/29/2023 Chief Complaint: Patient presents with: lumbar fracture follow up HISTORY OF PRESENT ILLNESS : Winston Mari is a 68 year old male with a past medical history of arthritis, epilepsy, high cholesterol, and sciatica. He is a former smoker. The patient presented to [facility] ED on 02/11/2023 as a transfer from [facility] after falling off a roof. Imaging revealed [...] BRAIN SURGERY HX OTHER ANEURYSM REPAIR 1983 [facility]- Dr. Simpson- Brain Aneurysm FAMILY HISTORY [...] pain, red (more content not included)...[facility]07-10-2023 NoteHNO ID: [id number] Author: RT Lonnie(R) Service: ? Author Type: [...] BY: RT Lonnie(R) April 30, 2023 1:22 [facility]07-10-2023 Miscellaneous Notes* Telephone Encounter - Angelina Quintero MA - 04/30/2023 1:32 PM EDT At appointment time, 1:30p, pt was not checked in. Went to lobby/waiting room and hallway to call for pt. Pt was not in either location. documented in this encounterMercy Health St. [facility]07-06-2023 Miscellaneous Notes* Telephone Encounter - Ena Beard Ma - 04/26/2023 12:59 PM EDT Attempted to contact patient via telephone regarding upcoming NEW patient appointment with Dr. Barth 04/30/23. [facility] relaying the message below: This is the [facility] calling regarding your upcoming appointment with Dr. Levi. To avoid a delay in your care, please bring any imaging (such as MRI, CT, XR, etc.) that have been done outside of the [facility] Systems on a disk to be viewed [...] or reschedule your appointment, please contact the [place] [facility] at [phone]." documented in this encounterMercy Health St. [facility]06-08-2023 NoteHNO ID: [id number] Author: Lee Almonte MD Service: ? Author Type: Physician Type: Progress Notes Filed: 03/29/2023 10:08 AM Note Text: NEUROSURGERY FOLLOW UP OFFICE NOTE Lee Almonte MD Date of visit: March 29, 2023 Patient Name: Mr.Johnnie Paul Mari Date of : 1955 Current Age: [age] year old Sex: male MRN/E# [id number] Last Office Visit: Visit date not found Chief Complaint: Patient presents with: Low Back Pain Fracture - Lumbar Vertebra HISTORY OF PRESENT ILLNESS : Winston Mari is a 68 year old male with a past medical history of arthritis, epilepsy, high cholesterol, and sciatica. He is a former smoker. The patient presented to [facility] ED on 02/11/2023 as a transfer from [facility] after falling off a roof. Imaging revealed [...] BRAIN SURGERY HX OTHER ANEURYSM REPAIR 1983 [facility]- Dr. Simpson- Brain Aneurysm FAMILY HISTORY [...] 120/68 P (more content not included)...[facility] 03-29-2023 History of Present illness Narrative* Lee Almonte MD - 03/29/2023 10:00 AM EDT NEUROSURGERY FOLLOW UP OFFICE NOTE Lee Almonte MD Date of visit: March 29, 2023 Patient Name: Mr.Johnnie Paul Mari Date of : 1955 Current Age: [age] year old Sex: male MRN/E# [id number] Last Office Visit: Visit date not found Chief Complaint: Patient presents with: Low Back Pain Fracture - Lumbar Vertebra HISTORY OF PRESENT ILLNESS : Winston Mari is a 68 year old male with a past medical history of arthritis, epilepsy, high cholesterol, and sciatica. He is a former smoker. The patient presented to [facility] ED on 02/11/2023 as a transfer from [facility] after falling offa roof. Imaging revealed evidence [...] BRAIN SURGERY HX OTHER ANEURYSM REPAIR 1983 [facility]- Dr. Simpson- Brain Aneurysm FAMILY HISTORY [...] (Src) 98.8 (Temporal) Resp 18 Ht 6' 1" (1.85m) Wt 146 lb (66.2kg) SpO2 97% [...] understanding and is in agreement with plan. Lee Almonte MD Department of Neurosurgery [facility] This note was partially generated using [employer] voice recognition system, and there may be some incorrect words, spellings, and punctuation that were not noted in checking the note before saving. documented in this encounterMercy Health St. [facility]06-06-2023 Miscellaneous Notes* Telephone Encounter - Donna Phillip RN - 03/27/2023 9:18 AM EDT Attempted to call patient at [phone]. Incorrect number listed in patient chart. Donna Phillip RN documented in this encounterMercy Health St. [facility]06-05-2023 Miscellaneous Notes* Telephone Encounter - Donna Phillip RN - 03/26/2023 2:48 PM EDT Attempted to reach patient and his brother to notify them that Winston needs x- rays completed before his appointment. Brothers' phone number is disconnected. Number listed for Winston leads to [facility]. Will attempt to contact tomorrow again to see if this could potentially be patient's place of work? Otherwise no other contact info listed for patient. Donna Phillip RN documented in this encounterMercy Health St. [facility]04-25-2023 NoteHNO ID: [id number] Author: Xuan Rivera RN Service: Care Management [...] 13, 2023 TIME: 11:40 AM PAGER/CONTACT #: [phone] 02-13-2023 NoteHNO ID: [id number] Author: Prabhakar Ramirez PA-C Service: General Surgery Author Type: Physician Catia Designer Type: Progress Notes Filed: 02/13/2023 9:27 AM [...] (Oral) Resp 18 Ht 180.3 cm (5' 11") Wt 68 kg (150 lb) SpO2 100% BMI 20.92 kg/m? O2 Therapy: Room Air IANDO: Date 02/12/23699 - 02/13/23 0659 02/13/23699 - 02/14/23 0659 Shift 1705-6102 5485-7232 1023-3906 24 Hour Total 3503-9240 4550-6970 5977-3035 24 Hour Total INTAKE PO 360 120 480 PO 360 120 480 Shift Total 360 120 480 OUTPUT Urine 650 0924 389 2888 Void (ml) 650 0468 087 9980 Shift Total 650 7287 482 6327 Weight (kg) 68 68 68 68 68 [...] 02/11/2023 Closed compression fracture of L2 vertebra ([facility]) 02/12/2023 Closed compression fracture of L4 vertebra ([facility]) 02/12/2023 Assessment: 68 year old male s/p fall from roof/ladder on 02/11/2023 (transfer from [facility]) Imaging performed: 02/11/2023 - CT H/N/C/A/P/L-spine, PXR, XR femur (Performed at [facility] prior to transfer) 02/12/2023 - MRI lumbar, [...] Planning: P (more content not included)...[facility]04-25-2023 NoteHNO ID: [id number] Author: Pretty Cardenas MD Service: Pain Management [...] lower back pain. Patient was seen at [facility] ED. CT HNCAPT completed and demonstrated acute [...] 1 CAPSU (more content not included)...[facility]04-24-2023 NoteHNO ID: [id number] Author: Prabhakar Ramirez PA-C Service: General Surgery Author Type: Physician Catia Designer Type: Progress Notes Filed: 02/12/2023 11:33 AM Note Text: Trauma Surgery Progress Note SERVICE DATE: 02/12/2023 Trauma Service Pager: For questions or concerns Mon-Fri 6a-5p please page [phone]. After 5pm and on Weekends and Holidays, please page [phone] if in ICU or [phone] if on RNF. SUBJECTIVE: NAEON. Patient notes [...] (Oral) Resp 18 Ht 180.3 cm (5' 11") Wt 68 kg (150 lb) SpO2 97% BMI 20.92 kg/m? O2 Therapy: Room Air IANDO: Date 02/11/23 07 - 02/12/23 0659 02/12/23 07 - 02/13/23 0659 Shift 3155-3970 1626-3166 2329-9924 24 Hour Total 1623-2189 1328-2937 9397-9201 24 Hour Total INTAKE Shift Total OUTPUT Urine 186 782 0972 650 650 Void (ml) 212 633 4465 650 650 Shift Total 445 633 2587 650 650 Weight (kg) 68 68 68 [...] 20 mL INTRAVENOUS PRN Labs: Recent Labs 02/12/2325602/11/23 2253 NA 138 140 K 3.9 3.8 [...] fall from roof/ladder on 02/11/2023 (transfer from [facility]) Imaging performed: 02/11/2023 - CT H/N/C/A/P/L-spine, PXR, XR femur (Performed at [facility] prior to transfer) 02/12/2023 - MRI lumbar [...] questions o (more content not included)...[facility] 01-13-[address] Sweeney [facility] January 14, 2023 12:17am Note Date/Time January 13, 2023 9:3 6pm [facility] Medical Records Department [address] [place] [address] Emergency Department Summary 01/13/23 MR#: [id number] Acct: [id number] Name: WINSTON MARI Rep #:[id number] : 1955 67 From: Mark Sweeney DO PCP: Dr. Eugenio Mayen, DO Status:REG [...] states there is also concern for malignancy. PFSH PFS Medical History Epilepsy Hemorrhoid High [...] 25 mg rectal suppository (Anusol-HC) 25 mg MD QHS #12 ea 04/27/22 [Rx Last Taken Unknown] polyethylene glycol 3350 17 gram/dose oral powder (Miralax) 17 g PO DAILY #119 grams 04/27/22 [Rx Last Taken Unknown] atorvastatin 40 mg tablet (Lipitor) 40 mg PO QHS 01/13/23 [History Last Taken Unknown] Allergy/AdvReac Type Severity Reaction Status Date / Time adhesive tape [tape] AdvReac Rash Verified 01/13/23 20:46 hydrocodone [From [place]] AdvReac Upset Verified 01/13/23 20:46 Stomach ibuprofen [...] acetate [Anusol-HC] 25 mg suppository 25 mg MD QHS Qty: 12 0RF atorvastatin [Lipitor] 40 mg Tablet 40 mg PO QHS Primary Care Provider: Eugenio Mayen Referrals: Eugenio Mayen DO [Primary Care Provider] - Disposition Disposition: Home, Self Care What to do if you have Problems For any increased pain, shortness of breath, bleeding, nausea or vomiting, chestpain, or any unexpected problems, contact your Primary Care Provider. Call [facility] ([phone]) or report to the closest Emergency Room. Call 911 if necessary. 01/14/2316 <Electronically signed by Mark Sweeney DO> Cosigner Signature (if applicable): CC: Dr. Eugenio Mayen DO ~ Signed [facility] Work Phone: 1(194) 290-198202-24-2023 Note ORIGINAL EXAMINATION: BONE DENSITOMETRY 12/15/2022 1:58 [...] Date: 12/15/2022 4:34:29 PM [facility]ing [facility] Note ORIGINAL EXAMINATION: BONE DENSITOMETRY 12/15/2022 [...] Sign Date: 12/15/2022 4:34:29 PM Ordering Provider: [facility]11-30-2022 Note HNO ID: [id number] Author: Hubert Jett MD Service: ? Author [...] physician was referred to a surgeon in [place]. He had been prescribed medications that he is uncertain what they were along with an ointment that was made at [facility] which she stated helped his symptoms but [...] BRAIN SURGERY HX OTHER ANEURYSM REPAIR 1983 [facility]- Dr. Simpson- Brain Aneurysm CURRENT MEDICATIONS: [...] 30 days. 120 capsule 11 methylPREDNISolone (MEDROL, ANTONINA,) 4 mg Dose-Pack Take by mouth. As [...] entered by the nurse and reviewed by la Nursing Notes: Ana Maria Padilla LPN 09/19/2022 [...] and denies bloody urine. (more content not included)...[facility]11-30-2022 History of Present illness Narrative* Hubert Jett [...] physician was referred to a surgeon in [place]. He had been prescribed medications that he is uncertain what they were along with an ointment that was made at [facility] which she stated helped his symptoms but [...] BRAIN SURGERY HX OTHER ANEURYSM REPAIR 1983 [facility]- Dr. Simpson- Brain Aneurysm CURRENT MEDICATIONS: [...] 30 days. 120 capsule 11 methylPREDNISolone (MEDROL, ANTONINA,) 4 mg Dose-Pack Take by mouth. As [...] entered by the nurse and reviewed by la Nursing Notes: Ana Maria Padilla LPN 09/19/2022 [...] C (98.5 F), height 180.3 cm (5' 11"), weight 71.7 kg (158 lb), SpO2 96 [...] needed. Hubert Jett MD documented in this encounterMercy Health St. [facility]11-29-2022 Instructions* Patient Instructions* Hubert Jett MD - 09/19/2022 5:00 PM EST The following instructions are important for you related to your office visit today with the [facility] General Surgeons. INSTRUCTIONS FOR AN ANAL FISSURE [...] you should contact our office immediately @ [phone] and ask to be transferred to the General Surgery department. documented in this encounterMercy Health St. [facility]11-29-2022 Nurse Note* Ana Maria Padilla, UNRULY - [...] Ana Maria Padilla LPN documented in this encounterMercy Health St. [facility]10-03-2022 Note ORIGINAL EXAMINATION: TWO XRAY VIEWS OF THE RIGHT SEUWAJGG14/3/2022 11:46 am XR right shoulder three views [...] Sign Date: 07/24/2022 11:18:45 PM Ordering Provider: EUGENIO [facility]10-03-2022 Note ORIGINAL EXAMINATION: TWO XRAY VIEWS OF THE RIGHT FOVLBDXK30/3/2022 11:46 am XR right shoulder three views [...] Sign Date: 07/24/2022 11:18:45 PM Ordering Provider: [facility]06-12-2022 Hospital Discharge instructions Patient Education [...] are needed. Resources For more information, contact: [place] [employer], ahma.memberclicks.net or [phone] [place] [employer], theacpa.org or 054-610-7111 7572-1243 [employer]. [address] [place] [address]. All rights reserved. This information is not intended as a substitute for professional medical care. Always follow yourhealthcare professional's instructions. Follow Up Care 04/02/2022 08:18:50 With:EUGENIO MAYEN DO Address: [address] [place] [address] [place] [address] [phone] When:2-4 days [facility] 05-18-2022 Hospital Discharge instructions* Instructions* Segun Joyner MD - 03/08/2022 Return for abdominal pain/fever or vomiting as that could point to more going on than sciatica; Useyour muscle relaxer as prescribed * Attachments The following attachments cannot be sent through Care Everywhere. * Sciatica (Cymro) documented in this [facility] Work Phone: 1(202) 555-998705-15-2022 Hospital Discharge instructions Patient Education 03/05/2022 12:43:55 [...] prescribed. These can be rented or purchased [facility] pharmacies and surgical or orthopedic supply stores. [...] alternate ice and heat. You may use fsvh-eyd-xgouaeu pain medicine to control pain, unless another [...] to put weight on the injured side 4128-4170 [employer]. [address] [place] [address]. All rights reserved. This information is not intended as a substitute for professional medical care. Always follow [facility]io[facility] hospitalcare professional's instructions. 03/05/2022 12:43:48 Sciatica Sciatica Sciatica [...] or swelling over your back or spine 3315-3643 [employer] [address] [place] [address]. All rights reserved. This information is not intended as a substitute for professional medical care. Always follow yourhealthcare professional's instructions. Follow Up Care 03/05/2022 12:34:31 With:EUGENIO MAYEN DO Address: [address] [place] [address] [place] [address]- [phone] When:2-4 days Comments:Schedule an appointment for follow-up if symptoms or not improving.Limit activity as tolerated.Use ice or cold compresses to painful areas for the next 2 days and warm, moist heat thereafter.Use Tylenol for pain as needed.Use cyclobenzaprine as previously prescribed for muscle pain and spasm as needed.Return to the ED if symptoms worsen. [facility] 05-11-2022 Hospital Discharge instructions Patient Education [...] or swelling over your back or spine 8035-8943 [employer] [address] [place] [address]. All rights reserved. This information is not intended as a substitute for professional medical care. Always follow yourhealthcare professional's instructions. Follow Up Care 03/01/2022 13:28:28 With:Pain management and back doctor Address:Unknown When:2-4 days Comments:Schedule appointment as soon as possibleAvoid pressure to roshan sims relafen and tylenol forpain [facility] 05-08-2022 Hospital Discharge instructions Patient Education [...] or legs Numbness in the groin area 7215-2630 [employer] [address] [place] [address]. All rights reserved. This information is not intended as a substitute for professional medical care. Always follow yourhealthcare professional's instructions. Follow Up Care 02/26/2022 10:36:22 With:EUGENIO MAYEN DO Address: [address] [facility] [place], [place] [id number]- [phone] When:2-4 days [facility] 03-12-2022 Hospital Discharge instructions Patient Education [...] shoulder or upper arm Fever or chills [phone] [employer] [address] [place] [address], [place] [address]. All rights reserved. This information is not intended as a substitute for professional medical care. Always follow yourhealthcare professional's instructions. Follow Up Care 12/31/2021 17:21:44 With:EUGENIO MAYEN DO Address: [phone] When:2-4 days [facility]i 02-13-2022 Hospital Discharge instructions Patient Education 12/04/2021 [...] shoulder or upper arm Fever or chills [phone] [employer] [address] [place] [address]. All rights reserved. This information is not [...] in vomit, stools (black or red color) [phone] [employer] [address] [place] [address]. All rights reserved. This information is not intended as a substitute for professional medical care. Always follow yourhealthcare professional's instructions. Follow Up Care 12/04/2021 11:20:21 With:EUGENIO MAEYN DO Address: [phone] When:2-4 days [facility] 11-20-2021 Hospital Discharge instructions Patient Education [...] pressure and pain in your lower back. [phone] [employer] [address] [place] [address], [place] [address]. All rights reserved. This information is not [...] Numbness in the groin or genital area [phone] [employer] [address] [place] [address], [place] [address]. All rights reserved. This information is not intended as a substitute for professional medical care. Always follow yourhealthcare professional's instructions. Follow Up Care 09/10/2021 11:27:40 With:EUGENIO MAYEN DO Address: [phone] When:2-4 days [facility] 11-07-2021 Hospital Discharge instructions Patient Education 08/28/2021 [...] or swelling over your back or spine [phone] [employer] [address] [place] [address]. All rights reserved. This information is not [...] are taking other medicines. You may use [id number] medicine as directed on the bottle to [...] Numbness in the groin or genital area [phone] [employer] [address] [place] [address], [place] [address]. All rights reserved. This information is not [...] prescribed.Return to the ED if symptoms worsen. [facility] 03-12-2021 Evaluation + Plan note Future Scheduled Tests Laboratory* Lipid Profile 12/31/20 Radiology* XR Shoulder Minimum 2 Views Left 06/21/21 * XR Shoulder Minimum 2 Views Right 06/21/21 * MRI Spine Lumbar w/o Contrast 02/04/21 [facility] 10-15-2020 Evaluation + Plan note Future Appointments Appointment Date:06/10/2025 02:30:00 PM Scheduled Provider: Location:[facility] Appointment Type:GI OV Consult Appointment Date:08/05/2025 10:30:00 AM Scheduled Provider:EUGENIO MAYEN DO Location:[facility] Appointment Type:PC OV Future Scheduled Tests Laboratory* Urine Culture 07/02/24 Radiology* CT Thorax w/o Contrast 01/15/25 * MRI Shoulder w/o Contrast Left 05/01/25 * NM Myocardial Spect Rest/Stress 05/20/25 [facility] Discharge summary Author Micheal Sun [facility] 2024 10:07am Note Date/Time 2024 8:5 1am [facility] Medical Records Department [address] [place] [id number] Emergency Department Summary 02/06/24 MR#: [id number] Acct: [id number] Name: WINSTON MARI Rep #:[id number] : 1955 69 From: Micheal Sun MD PCP: Dr. Eugenio Mayen, Status:[facility] ER Location: ED HPI History of Present [...] as to what an epinephrine pen is. [facility] Medical History Epilepsy Hemorrhoid High cholesterol Sciatica Home Medications omeprazole 20 mg capsule,delayed release 40 mg PO DAILY 03/23/22 [History Last Taken Unknown] gabapentin 300 mg capsule 300 mg PO 4X/DAY 04/02/22 [History Last Taken Unknown] hydrocortisone acetate 25 mg rectal suppository (Anusol-HC) 25 mg MD QHS #12 ea 04/27/22 [Rx Last Taken [...] AdvReac Rash Verified 02/06/24 08:35 hydrocodone [From [place]] AdvReac Upset Verified 02/06/24 08:35 Stomach ibuprofen [...] acetate [Anusol-HC] 25 mg suppository 25 mg MD QHS Qty: 12 0RF atorvastatin [Lipitor] 40 [...] your Primary Care Provider. Call [facility] ([phone]) or report to the closest Emergency Room. Call 911 if necessary. 02/06/24 1007 <Electronically signed by Micheal Sun MD> Cosigner Signature (if applicable): CC: Dr. Eugenio Mayen DO ~ Signed [facility] Work Phone: Discharge summary Author Husam Haynes [facility] Note Date/Time April 26, 2025 12:04 pm [facility] Medical Records Department [address] [place] [id number] Emergency Department Summary 04/26/25 MR#: [id number] Acct: [id number] Name: WINSTON MARI Rep #:[id number] : 1955 70 From: Husam morgan DO [...] 15 Psych: Cooperative, appropriate mood and affect [facility] Medical History Left rotator cuff tear Anemia GERD (gastroesophageal reflux disease) Left shoulder pain Hemorrhoid Epilepsy Sciatica High cholesterol Home Medications ?Medication ?Instructions ?Recorded ?Last Taken ?Type gabapentin 300 mg capsule 300 mg PO 4X/DAY 04/02/22 Un known History hydrocortisone acetate 25 mg 25 mg MD QHS #12 ea 04/27 Unknown Rx rectal [...] AdvReac Rash Verified 04/26/25 08:25 hydrocodone (From [place]) AdvReac Upset Verified 04/26/25 08:25 Stomach ibuprofen [...] x-rays were personally reviewed and interpreted by la, ED physician. X-ray of the shoulder shows [...] 3. Other findings as noted. Reading Location: [facility] Cervical Spine CT 04/26/25 09:30 IMPRESSION: 1. Multilevel degenerative disc disease as described. 2. Multilevel facet arthropathy with degenerative grade 1 anterolisthesis C7 onT1. 3. Other findings as noted. No significant change. Reading Location: [id number] Lumbar Spine CT 04/26/25 09:30 IMPRESSION: 1. Chronic mild compression of the superior endplates of L2, L4 and L5. 2. Degenerative disc disease as described. 3. Other findings as noted. Reading Location: [facility] Thoracic Spine CT 04/26/25 09:30 IMPRESSION: 1. Mild compression of the superior endplate of T6 and T9, chronic. 2. No evidence of acute injury to the thoracic spine. 3. Other findings as noted. Reading Location: [facility] Chest X-Ray 04/26/25 09:45 IMPRESSION: No evidence of acute cardiopulmonary pathology. Reading Location: [facility] Hip/Pelvis X-Ray 04/26/25 09:45 IMPRESSION: 1. Normal bilateral hips. 2. Other findings as noted. Reading Location: [facility] Shoulder X-Ray 04/26/25 09:45 IMPRESSION: 1. No evidence of acute fracture or dislocation. 2. Arthritis of the acromioclavicular and glenohumeral joints. 3. 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 Reading Location: [facility] Wrist X-Ray 04/26/25 09:45 IMPRESSION: 1. No evidence of fracture or dislocation. 2. Multifocal arthropathy. Reading Location: [facility] Discharge Plan Triage Chief Complaint: Fall ED Provider: Husam Haynes Dx/Rx/DC Orders Prescriptions: No Action ferrous sulfate 325 mg (65 mg iron) tablet 325 mg PO QDAY pantoprazole 40 mg tablet,delayed release (DR/EC) 40 mg PO QDAY gabapentin 300 mg capsule 300 mg PO 4X/DAY hydrocortisone acetate [Anusol-HC] 25 mg suppository 25 mg MD QHS Qty: 12 0RF atorvastatin [Lipitor] 40 [...] DO [Primary Care Provider] - Print Language: Cymro What to do if you have Problems For any increased pain, shortness of breath, bleeding, nausea or vomiting, chestpain, or any unexpected problems, contact your Primary Care Provider. Call [facility] ([phone]) or report to the closest Emergency Room. Call 911 if necessary. 04/26/25 1204 <Electronically signed by Husam Haynes DO> Cosigner Signature (if applicable): CC: Dr. Eugenio Mayen DO ~ Signed [facility] Work Phone: Evaluation + Plan note Future Appointments Appointment Date:01/17/2022 10:00:00 AM Scheduled Provider:EUGENIO MAYEN DO Location:[facility] Appointment Type:PC OV Future Scheduled Tests Laboratory* [...] 02/04/21 * XR Spine Lumbar AP/LAT 12/07/21 [facility] Evaluation + Plan note Future Appointments Appointment Date:02/20/2022 04:30:00 PM Scheduled Provider:EUGENIO MAYEN DO Location:[facility] Appointment Type:PC OV Follow Up Future [...] 02/16/22 * XR Spine Lumbar AP/LAT 12/07/21 [facility] Evaluation + Plan note Future Appointments Appointment Date:05/29/2022 11:30:00 AM Scheduled Provider:EUGENIO MAYEN DO Location:[facility] Appointment Type:PC OV Future Scheduled Tests [...] 02/16/22 * XR Spine Lumbar AP/LAT 12/07/21 [facility] Evaluation + Plan note Future Appointments Appointment Date:03/07/2022 11:15:00 AM Scheduled Provider:ANT RAMSEY MD Location:[facility] Appointment Type:PM GROUND SYSTEMS ENGINEER Appointment Date:05/29/2022 11:30:00 AM Scheduled Provider:EUGENIO MAYEN DO Location:[facility] Appointment Type:PC OV Future Scheduled Tests [...] 02/16/22 * XR Spine Lumbar AP/LAT 12/07/21 [facility] Evaluation + Plan note Future Appointments Appointment Date:05/29/2022 11:30:00 AM Scheduled Provider:EUGENIO MAYEN DO Location:[facility] Appointment Type:PC OV Future Scheduled Tests [...] 02/16/22 * XR Spine Lumbar AP/LAT 12/07/21 [facility] Evaluation + Plan note Future Appointments Appointment Date:04/12/2022 08:30:00 AM Scheduled Provider:PATRICIA CORTÉS MD Location:[facility] Appointment Type:WALTER [employer]OUND SYSTEMS ENGINEER Appointment Date:05/29/2022 11:30:00 AM Scheduled Provider:EUGENIO MAYEN DO Location:[facility] Appointment Type:PC OV Future Scheduled Tests [...] 02/16/22 * XR Spine Lumbar AP/LAT 12/07/21 [facility] Evaluation + Plan note Future Appointments Appointment Date:07/27/2022 02:00:00 PM Scheduled Provider:EUGENIO MAYEN DO Location:[facility] Appointment Type:PC OV Follow Up Future [...] 02/16/22 * XR Spine Lumbar AP/LAT 12/07/21 [facility] Evaluation + Plan note Future Appointments Appointment Date:09/19/2022 01:30:00 PM Scheduled Provider: Location:[facility] Appointment Type:US Renal Appointment Date:09/22/2022 02:00:00 PM Scheduled Provider:EUGENIO MAYEN DO [facility] Appointment Type:PC OV Future Scheduled Tests [...] 08/30/22 * XR Spine Lumbar AP/LAT 12/07/21 [facility] Evaluation + Plan note Future Appointments Appointment Date:09/22/2022 02:00:00 PM Scheduled Provider:EUGENIO MAYEN DO [facility] Appointment Type:PC OV Future Scheduled Tests [...] 02/16/22 * XR Spine Lumbar AP/LAT 12/07/21 [facility] Evaluation + Plan note Future Appointments Appointment Date:10/27/2022 02:30:00 PM Scheduled Provider:EUGENIO MAYEN DO [facility] Appointment Type:PC OV Future Scheduled Tests [...] 02/16/22 * XR Spine Lumbar AP/LAT 12/07/21 [facility] Evaluation + Plan note Future Appointments Appointment Date:12/06/2022 01:30:00 PM Scheduled Provider:EUGENIO MAYEN DO [facility] Appointment Type:PC OV Appointment Date:12/13/2022 02:30:00 PM Scheduled Provider: Location:[facility] Appointment Type:PF PFT w/Bronchod[place]or Future Scheduled Tests [...] 02/16/22 * XR Spine Lumbar AP/LAT 12/07/21 [facility] Evaluation + Plan note Future Appointments Appointment Date:12/15/2022 01:30:00 PM Scheduled Provider: Location:[facility] Appointment Type:BD Bone Density DEXA Axial Skeleton Appointment Date:01/04/2023 02:00:00 PM Scheduled Provider:EUGENIO MAYEN DO [facility] Appointment Type:PC OV Future Scheduled Tests Laboratory* Urinalysis 10/26/22 * Complete Blood Count 04/28/22 Radiology* XR Foot Minimum 3 Views Left 03/30/22 * BD Bone Density DEXA Axial Skeleton 12/15/22 * XR Elbow Minimum 3 Views Right 07/27/22 * MRI Spine Lumbar w/ + w/o Contrast 02/16/22 [facility] Evaluation + Plan note Future Appointments Appointment Date:01/04/2023 02:00:00 PM Scheduled Provider:EUGENIO MAYEN DO Location:[facility] Appointment Type:PC OV Future Scheduled Tests Laboratory* Urinalysis 10/26/22 * Complete Blood Count 04/28/22 Radiology* XR Foot Minimum 3 Views Left 03/30/22 * XR Elbow Minimum 3 Views Right 07/27/22 * MRI Spine Lumbar w/ + w/o Contrast 02/16/22 [facility] Evaluation + Plan note Future Appointments Appointment Date:08/15/2023 01:30:00 PM Scheduled Provider: Location:[facility] Appointment Type:GI OV Consult Appointment Date:08/23/2023 01:30:00 PM Scheduled Provider:EUGENIO MAYEN DO Location:[facility] Appointment Type:PC OV Future Scheduled Tests [...] 07/23/23 Radiology* CT Thorax w/o Contrast 08/10/23 [facility] Evaluation + Plan note Future Appointments Appointment Date:12/17/2023 02:00:00 PM Scheduled Provider:EUGENIO MAYEN DO Location:[facility] Appointment Type:PC OV Diagnostic Tests Pending * Varicella Zoster Antibody 12/07/23 * Rubella Antibody 12/07/23 * Rubeola IgG Antibody 12/07/23 * Mumps Antibody 12/07/23 Future Scheduled Tests Radiology* NM Myocardial Spect Rest/Stress 10/10/23 [facility] Evaluation + Plan note Future Appointments Appointment Date:10/02/2024 10:00:00 AM Scheduled Provider:EUGENIO MAYEN DO Location:[facility] Appointment Type:PC OV Appointment Date:11/06/2024 10:30:00 AM Scheduled Provider:EUGENIO MAYEN DO Location:[facility] Appointment Type:PC OV Future Scheduled Tests Laboratory* Urine Culture 07/02/24 Radiology* CT Thorax w/o Contrast 12/01/24 * NM Myocardial Spect Rest/Stress 10/10/23 [facility] Evaluation + Plan note Future Appointments Appointment Date:12/03/2024 11:00:00 AM Scheduled Provider:EUGENIO MAYEN DO Location:[facility] Appointment Type:PC OV Appointment Date:12/18/2024 09:00:00 PM Scheduled Provider: [facility] Appointment Type:PC Nurse Lab Appointment Date:01/01/2025 10:00:00 AM Scheduled Provider:EUGENIO MAYEN DO Location:[facility] Appointment Type: Wellness Annual Future Scheduled Tests Laboratory* Ferritin 12/31/24 * Prostate Specific Antigen 12/31/24 * Urine Culture 07/02/24 * A1C Hemoglobin 12/31/24 * Complete Blood Count 12/31/24 * Lipid Profile 12/31/24 * Vitamin D Level 12/31/24 * Complete Metabolic Panel 12/31/24 Radiology* CT Thorax w/o Contrast 12/01/24 [facility] Evaluation + Plan note Future Appointments Appointment Date:05/20/2025 08:15:00 AM Scheduled Provider: Location:[facility] Appointment Type:NM Myocardial Spect Rest/Stress Shabana Appointment Date:05/20/2025 02:00:00 PM Scheduled Provider:EUGENIO MAYEN DO Location:[facility] Appointment Type:PC Wellness Annual Appointment Date:08/05/2025 10:30:00 AM Scheduled Provider:EUGENIO MAYEN DO Location:[facility] Appointment Type:PC OV Future Scheduled Tests Laboratory* Urine Culture 07/02/24 Radiology* CT Thorax w/o Contrast 01/15/25 * MRI Shoulder w/o Contrast Left 04/02/25 * NM Myocardial Spect Rest/Stress 05/20/25 [facility] Evaluation noteNo assessment information available [facility] Work Phone: Evaluation note* Diagnosis Acute sciatica- Primary documented in this encounter [facility] Work Phone: Evaluation note* Diagnosis Anal fissure- Primary documented in this encounter [facility] note* Diagnosis Other fracture of unspecified lumbar vertebra, initial encounter for closed fracture (HCC)- Primary Lumbar burst fracture, sequela [facility]* Diagnosis Chronic pain syndrome- Primary documented in this encounter [facility] note* Diagnosis Chest pain, unspecified type- Primary Pain of right lower extremity Acute right-sided low back pain with right-sided sciatica documented in this encounter [facility] course Narrative No data available for this section [facility] Hospital Discharge instructions No data available for this section [facility] Hospital Discharge instructions Additional Instructions Please follow-up with your PCP and return for any worsening of your symptoms. Begin taking MiraLAX daily.[facility] Work Phone: Hospital Discharge instructions Additional Instructions Continue your oxycodone as previously prescribed to take for pain.[facility] Work Phone: Hospital Discharge instructions Additional Instructions Ice to affected area 3 times a day for approximately 10 to 15 minutes each. Elevate your left foot when possible.[facility] Work Phone: Hospital Discharge instructions Additional Instructions [...] oral fluids for hydration. Follow-up with your doctor.[facility] Work Phone: Hospital Discharge instructionsAdditional Instructions Follow-up with primary care physician. Tylenol as needed for pain. Return back to the ED if symptoms change or worsen. Walker as needed for ambulation. Will RICE for swelling.[facility] Work Phone: Hospital Discharge instructionsAdditional Instructions Continue your Percocet that was recently prescribed. Take this as needed for pain. Take Flexeril at bedtime as needed for muscle spasm.[facility] Work Phone: Progress note No data available for this section [facility] Reason for referral (narrative)No [facility] for [facility] Work [facility]: Summary Purpose Family History [...] February 27, 2022 7: 05pm Power of Hot Header Operator No February 27, 2022 7:05pm Advance Directive Response Recorded Date/ Time Living Will No March 07, 2022 1 :31pm Power of Hot Header Operator No March 07, 2022 1:31pm Advance Directive Response Recorded Date/ Time Living Will No March 09, 2022 1 0:31am Power of Hot Header Operator No March 09, 2022 10:31am Advance Directive Response Recorded Date/ Time Living Will No March 23, 2022 1 1:30pm Power of Hot Header Operator No March 23, 2022 11:30pm Advance Directive Response Recorded Date/ Time Living Will No April 02, 2022 9:47pm Power of Hot Header Operator No April 02 9:47pm Advance Directive Response Recorded Date/ Time Living Will No April 14, 2022 5:45pm Power of Hot Header Operator No April 14 5:45pm Advance Directive Response Recorded Date/ Time Living Will No April 16, 2022 2:51pm Power of Hot Header Operator No April 16 2:51pm Advance Directive Response Recorded Date/ Time Name of Medical Power of Hot Header Operator tee Antunez April 24, 2022 6:31pm Living Will Yes April 24, 2022 6 :31pm Power of Hot Header Operator Yes April 24, 2022 6:31pm Advance Directive Response Recorded Date/ Time Name of Medical Power of Hot Header Operator tee Antunez April 24, 2022 6:31pm Living Will No April 27, 2022 1 1:27am Power of Hot Header Operator No April 27, 2022 11:27am Advance Directive Response Recorded Date/ Time Living Will No September 16, 2 022 11:06am Power of Hot Header Operator No September 16, 2022 11:06am Advance Directive Response Recorded Date/ Time Living Will No January 13, 2023 9:03pm Power of Hot Header Operator No January 13 9:03pm Advance Directive Response Recorded Date/ Time Living Will No February 11, 2023 2:26pm Power of Hot Header Operator No February 11 2:26pm Documents on File Type Date Recorded Patient Service Center Manager Expl anation Advance Directive(s) 02/12/2023 11:06 AM Documents on File Type Date Recorded Patient Service Center Manager Expl anation Advance Directive(s) 02/12/2023 11:06 AM Advance Directive Response Recorded Date/ Time Living Will No May 31 10:26am Power of Hot Header Operator No May 31, 2 023 10:26am Advance Directive Response Recorded Date/ Time Living Will No August 09 2:38pm Power of Hot Header Operator No August 09, 2023 2:38pm Advance Directive Response Recorded Date/ Time Living Will No October 09, 2 023 1:19pm Power of Hot Header Operator No October 09, 2023 1:19pm Advance Directive Response Recorded Date/ Time Living Will No 2024 8:35am Power of Hot Header Operator No February 05 8:35am Advance Directive Response Recorded Date/ Time Living Will No November 25 11:51am Power of Hot Header Operator No November 25, 2024 11:51am Living Will No November 05 3:44pm Power of Hot Header Operator No November 05, 2024 3:44pm Living Will No January 01, 2025 2:17pm Power of Hot Header Operator No January 01 2:17pm Advance Directive Response Recorded Date/ Time Living Will No November 25 11:51am Power of Hot Header Operator No November 25, 2024 11:51am Living Will No January 03, 2025 4:51pm Power of Hot Header Operator No January 03 4:51pm Living Will No November 05 3:44pm Power of Hot Header Operator No November 05, 2024 3:44pm Living Will No January 01, 2025 2:17pm Power of Hot Header Operator No January 01 2:17pm Advance Directive Response Recorded Date/ Time Living Will No November 25 11:51am Do you have a Healthcare Power of Hot Header Operator? No November 25, 2024 11:51am Living Will No January 03, 2025 4:51pm Do you have a Healthcare Power of Hot Header Operator? No January 03, 2025 4:51pm Living Will No January 01, 2025 2:17pm Do you have a Healthcare Power of Hot Header Operator? No January 01, 2025 2:17pm Advance Directive Response Recorded Date/ Time Living Will No January 03, 2025 4:51pm Do you have a Healthcare Power of Hot Header Operator? No January 03, 2025 4:51pm Living Will No January 01, 2025 2:17pm Do you have a Healthcare Power of Hot Header Operator? No January 01, 2025 2:17pm Do you have a Healthcare Power of Hot Header Operator? No April 04, 2025 2:33pm Advance Directive Response Recorded Date/ Time Living Will No January 03, 2025 4:51pm Do you have a Healthcare Power of Hot Header Operator? No January 03, 2025 4:51pm Living Will No January 01, 2025 2:17pm Do you have a Healthcare Power of Hot Header Operator? No January 01, 2025 2:17pm Do you have a Healthcare Power of Hot Header Operator? No April 04, 2025 2:33pm Do you have a Healthcare Power of Hot Header Operator? No April 26, 2025 8:48am Advance Directive Response Recorded Date/ Time Do you have a Healthcare Power of Hot Header Operator? No April 04, 2025 2:33pm Do you have a Healthcare Power of Hot Header Operator? No April 26, 2025 8:48am Do you have a Healthcare Power of Hot Header Operator? No May 31, 2025 10:21am Advance Directive Response Recorded Date/ Time Do you have a Healthcare Power of Hot Header Operator? No April 04, 2025 2:33pm Do you have a Healthcare Power of Hot Header Operator? No April 26, 2025 8:48am Do you have a Healthcare Power of Hot Header Operator? No May 31, 2025 10:21am Do you have a Healthcare Power of Hot Header Operator? No June 11, 2025 8:32am Advance Directive Response Recorded Date/ Time Do you have a Healthcare Power of Hot Header Operator? No April 04, 2025 2:33pm Do you have a Healthcare Power of Hot Header Operator? No April 26, 2025 8:48am Do you have a Healthcare Power of Hot Header Operator? No May 31, 2025 10:21am Do you have a Healthcare Power of Hot Header Operator? No June 11, 2025 8:32am Do you have a Healthcare Power of Hot Header Operator? No June 15, 2025 7:14pm Discharge Instructions * Instructions* Nas Leong MD - 06/26/2020 Follow-up her pain management physician and her primary doctor return of his any worsening problemsat all. * Attachments The following attachments cannot be sent through Care Everywhere. * Muscle Strain (Cymro) * Wrist Sprain (Cymro) documented in this encounter Assessments Diagnosis Lumbar [...] 26am BACK June 11, 2025 8: 31am Chief Complaint Admit Date LUMBAR SPINE March 19, 2025 9:49a m Room 1 March 19, 2025 10:25 am upper April 04, 2025 11:5 2am fall April 26, 2025 8:24a m fall May 31, 2025 9: 26am BACK June 11, 2025 8: 31am BACK PAIN June 15, 2025 5: 56pm Reason for Referral Specialty Diagnoses / Procedures Referred By Contac t Referred To Contact MR IMAGING Diagnoses Other fracture of unspecified lumbar vertebra, initial encounter for closed fracture (HCC) Procedures MRI LUMBAR SPINE WO IVCON MRI SPINAL CANAL LUMBAR W/O CONTRAST MATERIAL Lee Almonte MD [address] [place] [address] Mr Imaging Referral ID Status Reason Start Date Expiration Date Visits Requested Visits Authorized [phone] Pending Review Auto-Generat ed Referral 03/29/2023 04/27/2024 [...] section and content) DATE CREATED AUTHOR 04/16/2018 [facility] DATE CREATED AUTHOR AUTHOR'S ORGANIZ ATION 04/17/2018 [facility] DATE CREATED AUTHOR AUTHOR'S ORGANIZ ATION 11/03/2019 [facility] DATE CREATED AUTHOR AUTHOR'S ORGANIZ ATION 06/26/2020 [facility] DATE CREATED AUTHOR AUTHOR'S ORGANIZ ATION 01/13/2021 [facility] DATE CREATED AUTHOR AUTHOR'S ORGANIZ ATION 03/26/2022 [facility] DATE CREATED AUTHOR AUTHOR'S ORGANIZ ATION 03/27/2022 [facility] DATE CREATED AUTHOR AUTHOR'S ORGANIZ ATION 05/01/2023 [facility] DATE CREATED AUTHOR AUTHOR'S ORGANIZ ATION 05/24/2023 [facility] DATE CREATED AUTHOR AUTHOR'S ORGANIZ ATION 11/21/2023 [facility] DATE CREATED AUTHOR AUTHOR'S ORGANIZ ATION 12/12/2023 [facility] ([place]) DATE CREATED AUTHOR AUTHOR'S ORGANIZ ATION 03/01/2025 [facility] DATE CREATED AUTHOR AUTHOR'S ORGANIZ ATION 06/21/2025 [facility] DATE CREATED AUTHOR AUTHOR'S ORGANIZ ATION 08/28/2025 [facility] Reason for Visit (unrecogniz ed section and [...] Care Team (unrecognized sect ion and content) Pin Machine Operator Relationship Specialty Start Date End Date Eugenio Mayen IV, MD [address] [place] [id number] PCP - General Family Medicine 09/07/22 Team Status: Active Member Role Status Dates Pebbles Grullon NP, GROUND SYSTEMS ENGINEER-C Family Provider Active Dr. Eugenio Mayen , Primary Care Provider Active Team Status: Inactive Member Role Status Dates Dr. Eugenio Mayen DO Primary Care Provider Active Dr. Marybeth Morris DO Attending Provider, Emergency Tiffanie bustos Active Team Status: Inactive Member Role Status Dates Dr. Eugenio Mayen DO Primary Care Provider Active Dr. Mark Sweeney DO Emergency Provider Active Team Status: Inactive Member Role Status Dates Dr. Eugenio Mayen DO Primary Care Provider Active Dr. Mark Sweeney , Attending Provider, Emergency Provider Active Team Status: Inactive Member Role Status Dates Dr. Eugenio Mayen DO Primary Care Provider Active Dr. Ken Mari MD Emergency Provider Active Pin Machine Operator Relationship Specialty Start Date End Date Eugenio Mayen IV, DO [address] [place] [address] PCP - General Family Medicine 09/07/22 Ant Ramsey [address] [place] [id number] Referring Pain Management 01/17/23 Pin Machine Operator Relationship Specialty Start Date End Date Eugenio Mayen IV, DO [address] [place] [address] PCP - General Family Medicine 09/07/22 Ant Ramsey [address] [place] [id number] Referring Pain Management 01/17/23 Pin Machine Operator Relationship Specialty Start Date End Date Eugenio Mayen IV, DO [address] [place] [address] PCP - General Family Medicine 09/07/22 Ant Ramsey [address] [place] [address] Referring Pain Management 01/17/23 Pin Machine Operator Relationship Specialty Start Date End Date Eugenio Mayen IV, DO [address] [place] [address] PCP - General Family Medicine 09/07/22 Ant Ramsey [address] [address] Referring Pain Management 01/17/23 Team Status: Inactive Member Role Status Dates Dr. Eugenio Mayen DO Primary Care Provider Active Dr. Ken Mari MD Attending Provider, Emergency Pro vider Active Team Status: Inactive Member Role Status Dates Dr. Eugenio Mayen DO Primary Care Provider Active Dr. Gene Cristina MD Emergency Provider Active Pin Machine Operator Relationship Specialty Start Date End Date Eugenio Mayen IV, DO [address] [place] [address] PCP - General Family Medicine 09/07/22 nAt Ramsey [address] [place] [address] Referring Pain Management 01/17/23 Pin Machine Operator Relationship Specialty Start Date End Date Eugenio Mayen IV, DO [address] [place] [address] PCP - General Family Medicine 09/07/22 Ant Ramsey [address] [address] Referring Pain Management 01/17/23 Team Status: Inactive [...] January 03, 2025 End: January 03, 2025 Pin Machine Operator Relationship Specialty Start Date End Date Provider, [...] Role/Relationship Status Dates Dr. Eugenio Mayen , Primary Care Provider Active Start: June 11, 2025 End: June 11, 2025 Dr. Nicolás Rojas , Emergency Provider Active Start: June 11, 2025 End: June 11, 2025 Team Status: Inactive Member Role/Relationship Status Dates Dr. Eugenio Mayen DO Primary Care Provider Active Start: June 15, 2025 End: June 15, 2025 Dr. Kezia Gonzales MD Emergency Provider Active S tart: June 15, 2025 End: June 15, 2025 Goals (unrecognized section and content) Goals may be documented in a n alternate section Ordered Prescriptions (unrec ognized section and content) Prescription Sig Dispensed Refills Start Date ibuprofen (ADVIL;MOTRIN) 400 MG tablet Take 1 [...] ordered. 1533 (Given - Provid er: Meseret Teetee) ondansetron (ZOFRAN-ODT) disintegrating tablet 4 mg (COMPLETED) 4 mg, Oral, ONCE, 1 dose, On 03/08/22 at 1528 1534 (Given - Provid er: Meseret Teetee) Scheduled Medication Order 02/21/2025 02/22/2025 02/23/2025 Al-Mg [...] content) Care Team Personnel Name: ELENA LOONEY APRN-COMPUTER METEOROLOGIST Position: P4 Advanced Practice Nurse Med Service: Active Provider Member Role: Pain Management Address: Address: [address] [place] [address] [address] Name: EUGENIO MAYEN DO Position: P4 Physician - Primary Care Med Service: Active Provider Member Role: Primary Care Physician Address: Address: [address] [place] [address] Family [facility] [address] Name: ANT RAMSEY MD Position: P4 Physician - General Surgery Med Service: [facility] Pain Management Member Role: Pain Management Address: Address: [address] [place] [address] [address] Care Team Related Persons Name: FRANCO HUI Address: Home [address] [place], [place] [id number] [place] Address: Temporary [address] [place], [place] [id number] Name: LYCANS, JASMINE Address: Home [address] [place], [place] [id number] Care Team Personnel Name: ELENA LOONEY APRN-COMPUTER METEOROLOGIST Position: P4 Advanced Practice Nurse Member Role: Pain Management Address: Address: [address] [place] [address] [address] [facility] [place] [address]- [place] Name: EUGENIO MAYEN DO Position: P4 Physician - Primary Care Member Role: Primary Care Physician Address: Address: [address] [place] [address]- Name: ANT RAMSEY MD Position: P4 Physician - General Surgery Member Role: Pain Management Address: Address: [address] [place] [address] [place] [address]- [place] Care Team Related Persons Name: FRANCO HUI Address: Home [address] [place], [place] [id number] [place] Address: Temporary [address] [place], [place] [phone] Name: JASMINE ANTUNEZ Address: Home [address] [place], [place] [id number] Care Team Personnel Name: ELENA LOONEY APRN-COMPUTER METEOROLOGIST Position: P4 Advanced Practice Nurse Member Role: Pain Management Address: Address: [address] [place] [address] [place] [address]- [place] Name: EUGENIO MAYEN DO Position: P4 Physician - Primary Care Member Role: Primary Care Physician Address: Address: [address] [place] [address]- [place] Name: ANT RAMSEY MD Position: P4 Physician - General Surgery Member Role: Pain Management Address: Address: [address] [place] [address] [place] [address]- [place] Care Team Related Persons Name: FRANCO HUI Address: Home [address] [place], [place] [id number] [place] Address: Temporary [address] [place], [place] [phone] Name: JASMINE ANTUNEZ Address: Home [address] [place], [place] [id number] Care Team Personnel Name: ELENA LOONEY APRN-COMPUTER METEOROLOGIST Position: P4 Advanced Practice Nurse Member Role: Pain Management Address: Address: [address] [place] [address] [address] [facility] [place] [address]- [place] Name: EUGENIO MAYEN DO Position: P4 Physician - Primary Care Member Role: Primary Care Physician Address: Address: [address] [place] [address]- Name: ANT RAMSEY MD Position: P4 Physician - General Surgery Member Role: Pain Management Address: Address: [address] [place] [address] [place] [address]- [place] Care Team Related Persons Name: EZ FRANCO Islas Address: Home [address] [place], [place] [phone] [place] Address: Temporary [address] [place], [place] [phone] Name: JASMINE ANTUNEZ Address: Home [address] [place], [place] [phone] Care Team Personnel Name: ELENA LOONEY APRN-COMPUTER METEOROLOGIST Position: P4 Advanced Practice Nurse Member Role: Pain Management Address: Address: [address] [place] [address] [place] [address]- [place] Name: EUGENIO MAYEN DO Position: P4 Physician - Primary Care Member Role: Primary Care Physician Address: Address: [address] [place] [address]- Name: ANT RAMSEY MD Member Role: Pain Management Address: Address: [address] [place] [address] [place] [address] [place] Care Team Related Persons Name: EZ FRANCO Islas Address: Home [address] [place], [place] [phone] [place] Address: Temporary [address] [place], [place] [phone] Name: SAPPHIRE JASMINE Address: Home [address] [place], [place] [phone] Care Team Personnel Name: ELENA LOONEY APRN-COMPUTER METEOROLOGIST Position: P4 Advanced Second Miller Member Role: Pain Management Address: Address: [address] [place] [address] [place] [address]- [place] Name: EUGENIO MAYEN DO Position: P4 Physician - Primary Care Member Role: Primary Care Physician Address: Address: [address] [place], [place] [address] [[email or web address]] Name: ANT RAMSEY MD Member Role: Pain Management Address: Address: [address] [place] [address] Pain Management [place], [place] [address] [[email or web address]] Care Team Related Persons Name: FRANCO HUI Address: Home [address] [place] [phone] Address: Temporary [address] [place] [phone] Name: JASMINE ANTUNEZ Address: Home [address] [place], [place] [phone] Care Team Personnel Name: ELENA LOONEY APRN-COMPUTER METEOROLOGIST Position: P4 Advanced Second Miller Member Role: Pain Management Address: Address: [address] [place] [address] Pain Management [place], [place] [address] [[email or web address]] Name: EUGENIO MAYEN DO Position: P4 Physician - Primary Care Member Role: Primary Care Physician Address: Address: [address] [place] [phone] [place] [address] Name: ANT RMASEY MD Member Role: Pain Management Address: Address: [address] [place] [address] [place], [place] [address] [[email or web address]] Care Team Related Persons Name: FRANCO HUI Address: Home [address] [place] [phone] Address: Temporary [address] [place] [phone] Name: JASMINE ANTUNEZ Address: Home [address] [place], [place] [id number] Source Comments (unrecognize d section and content) In the event this informatio n is protected by the Federal Confidentiality of Alcohol and Drug Abuse Patient Records regulations: The Federal rules restrict any use of the information to criminally investigate or prosecute any alcohol or drug abuse patient.[facility] the event this information is protected by the Federal Confidentiality of Alcohol and Drug Abuse Patient Records regulations: The Federal rules restrict any use of the information to criminally investigate or prosecute any alcohol or drug abuse patient.[facility] Center[facility] the event this information is protected by the Federal Confidentiality of Alcohol and Drug Abuse Patient Records regulations: The Federal rules restrict any use of the information to criminally investigate or prosecute any alcohol or drug abuse patient.[facility] Center[facility] the event this information is protected by the Federal Confidentiality of Alcohol and Drug Abuse Patient Records regulations: The Federal rules restrict any use of the information to criminally investigate or prosecute any alcohol or drug abuse patient.[facility] Center[facility] the event this information is protected by the Federal Confidentiality of Alcohol and Drug Abuse Patient Records regulations: The Federal rules restrict any use of the information to criminally investigate or prosecute any alcohol or drug abuse patient.[facility] Center[facility] the event this information is protected by the Federal Confidentiality of Alcohol and Drug Abuse Patient Records regulations: The Federal rules restrict any use of the information to criminally investigate or prosecute any alcohol or drug abuse patient.[facility] CenterIn the event this information is protected by the Federal Confidentiality of Alcohol and Drug Abuse Patient Records regulations: The Federal rules restrict any use of the information to criminally investigate or prosecute any alcohol or drug abuse patient.[facility] CenterIn the event this information is protected by the Federal Confidentiality of Alcohol and Drug Abuse Patient Records regulations: The Federal rules restrict any use of the information to criminally investigate or prosecute any alcohol or drug abuse patient.[facility] CenterIn the event this information is protected by the Federal Confidentiality of Alcohol and Drug Abuse Patient Records regulations: The Federal rules restrict any use of the information to criminally investigate or prosecute any alcohol or drug abuse patient.[facility] FOR RECORDS PERTAINING TO PATIENTS WHO ARE [...] BE BASED ON THE PRIMARY CLINICAL RECORDS. [facility]. provides no warranty or guarantee of the accuracy or completeness of information in this document.
--- NOTE | 2025-09-17 13:30 | CT_ITS ---
PROCEDURE: BRAIN/HEAD WITHOUT CONTRAST 09/17/2025 REASON FOR EXAM: HEAD TRAUMA, LOC, ANTITHROMBOTIC AND HEADACHE TECHNIQUE: Procedure Code: CTBR Modality: CT Procedure: BRAIN/HEAD WITHOUT CONTRAST Coronal and Sagittal reconstruction series were provided. One or more dose reduction techniques were used (e.g., Automated exposure control, adjustment of the mA and/or kV according to patient size, use of iterative reconstruction technique. RADIATION DOSE SUMMARY: CTDlvol: 45 mGy DLP: 829 mGycm COMPARISON: August 26, 2025 FINDINGS: Brain: There is no evidence of hemorrhage, acute ischemia or mass. No extra- axial fluid collection, midline shift or mass effect. CSF Spaces: Mild generalized cerebral atrophy. Sinuses/Mastoids: Mucous retention cyst or polyp in the dependent portion of the right maxillary sinus. No change. Similar finding in the inferior left frontal sinus. No change. Bones: Prior craniotomy left posteriorly. The right parotid gland is partially imaged but shows a homogeneous mass measuring 0.8 x 2.5 cm situated between the superficial and deep lobes. CT/Brain/Head without Contrast IMPRESSION: 1. No evidence of acute intracranial abnormality at this time. No change. 2. Mild volume loss 3. Prior craniotomy left posteriorly is uncomplicated. 4. 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 Likely unchanged. Reading Location: [id number]
[2025-09-17 14:07] VITALS: BP 146/84; PULSE 52; RESP 16; TEMP 36.6; O2SAT 100
== END 2025-09-17 14:07 | disposition home or self-care (01) ==
PROVIDERS: Emergency Provider Emergency Medicine; PCP Student in an Organized Health Care Education/Training Program; Visit Provider Emergency Medicine
DX: S06.0X1A Concussion with loss of consciousness of 30 minutes or less, initial encounter (principal); J44.9 Chronic obstructive pulmonary disease, unspecified; S80.01XA Contusion of right knee, initial encounter; S00.33XA Contusion of nose, initial encounter; Z79.02 Long term (current) use of antithrombotics/antiplatelets; Z87.891 Personal history of nicotine dependence; I25.10 Atherosclerotic heart disease of native coronary artery without angina pectoris; S80.02XA Contusion of left knee, initial encounter; E78.00 Pure hypercholesterolemia, unspecified; K11.8 Other diseases of salivary glands; W17.89XA Other fall from one level to another, initial encounter; Z79.899 Other long term (current) drug therapy; K21.9 Gastro-esophageal reflux disease without esophagitis; Z79.51 Long term (current) use of inhaled steroids; N40.0 Benign prostatic hyperplasia without lower urinary tract symptoms
CPT/HCPCS: 70450; 96372; 99282

== ENCOUNTER 2025-10-19 08:53 | Emergency (ER) | payer MEDICAID, SELFPAY ==
[2025-10-19 08:54] VITALS: BP 167/101; PULSE 77; RESP 20; TEMP 36.4; O2SAT 100; BMI 21.7
--- NOTE | 2025-10-19 09:11 | CT_ITS ---
PROCEDURE: CT CHEST, ABD, PEL W/CONTRAST; SPINE THORACIC WITHOUT CONTRAS; SPINE LUMBAR WITHOUT CONTRAST; SPINE CERVICAL WITHOUT CONTRAS 10/19/2025 REASON FOR EXAM: FALL FROM 10 FEET; FALL TECHNIQUE: Chest, abdomen and pelvis CT with intravenous contrast. Coronal and Sagittal reconstruction series were provided. One or more dose reduction techniques were used (e.g., Automated exposure control, adjustment of the mA and/or kV according to patient size, use of iterative reconstruction technique. PATIENT PREPARATION: Per protocol ORAL CONTRAST TYPE: None. AMOUNT: mL CONTRAST: Isovue 3 7 VOLUME: 99mL Gauge IV RADIATION DOSE SUMMARY: CTDlvol: 12.7 mGy DLP: 3465.01 mGycm COMPARISON: None FINDINGS: CT CHEST: Hardware: None Lymph nodes: No lymphadenopathy. Heart and Vasculature: Mild cardiomegaly. Atherosclerotic calcifications of the coronary arteries. Lungs and Airways: Pulmonary emphysema. An 8 mm solid nodule in the right lower lobe. Pleura: No pleural effusion or pneumothorax. Bones: No acute bony abnormalities. CT ABDOMEN/PELVIS: Liver: Unremarkable. Gallbladder: Unremarkable. No biliary dilation. Spleen: Foci of calcifications consistent with old granulomatous disease. No splenomegaly. Pancreas: Unremarkable. Adrenals: Unremarkable. Kidneys: Bilateral simple cysts with the largest measures 2.4 cm at the upper pole of the right kidney. No hydronephrosis. A 1 mm stone at the lower pole of the right kidney. Bladder: Unremarkable. Reproductive Organs: Unremarkable. Bowel: Colonic diverticulosis without evidence of acute diverticulitis.No bowel obstruction. Appendix: Unremarkable. Lymph nodes: No lymphadenopathy. Vasculature: No aneurysm. Atherosclerotic calcifications of the aorta. Peritoneum / Retroperitoneum: Bones: No acute bony abnormalities. Abdominal wall: A left-sided hydrocele. CT cervical spine: Vertebrae: No acute bony abnormalities. Alignment: Retrolisthesis C4 on C5 by 2 mm. Disc levels: Multilevel degenerate changes predominantly at C4-C5 where there is disc space narrowing, sclerotic endplates, uncovertebral hypertrophy, severe bilateral foramina stenosis and severe canal stenosis. Soft tissues: The lungs are clear. No soft tissue abnormalities. CT thoracic spine: Vertebrae: No acute bony abnormalities. Alignment: Anatomical. Disc levels: Multilevel degenerate changes without significant foraminal or canal stenosis. Soft tissues: The lungs are clear. No soft tissue abnormalities. CT lumbar spine: Vertebrae: No acute bony abnormalities. Alignment: Anatomical. Disc levels: Multilevel degenerate changes predominantly at L5-S1 where there is facet joint arthropathy, severe bilateral foramina stenosis and mild canal stenosis. Soft tissues: No acute findings. CT/Spine Thoracic without Contras IMPRESSION: No acute injuries the chest, abdomen and pelvis. No acute injuries to the cervical, thoracic or lumbar spine. An 8 mm solid nodule in the right lower lobe. Within 3 months, repeat CT chest , tissue sampling or FDG PET scan may be performed. A punctate stone in the right kidney. No hydronephrosis. Left-sided hydrocele. Reading Location: [id number]
--- NOTE | 2025-10-19 09:11 | CT_ITS ---
PROCEDURE: BRAIN/HEAD WITHOUT CONTRAST 10/19/2025 REASON FOR EXAM: Fell off ladder on thinners. History of craniotomy and aneurysm. TECHNIQUE: Procedure Code: CTBR Modality: CT Procedure: BRAIN/HEAD WITHOUT CONTRAST Coronal and Sagittal reconstruction series were provided. One or more dose reduction techniques were used (e.g., Automated exposure control, adjustment of the mA and/or kV according to patient size, use of iterative reconstruction technique. RADIATION DOSE SUMMARY: CTDlvol: 44.99 mGy DLP: 813 mGycm COMPARISON: 09/17/2025 FINDINGS: BRAIN: No acute intraparenchymal hemorrhage. No mass lesion. No CT evidence for acute territorial infarct. No midline shift or extra-axial collection. VENTRICLES: No hydrocephalus. ORBITS: The orbits are unremarkable. SINUSES AND MASTOIDS: Unchanged small right maxillary and left frontal sinus retention cyst/polyp. Mild right ethmoid sinus mucosal thickening. The mastoid air cells are clear. SOFT TISSUES: No acute abnormality seen. No radiodense foreign body. BONES: No acute osseous abnormality seen. Prior left posterior craniotomy. OTHER: Mild carotid siphon calcification bilaterally. CT/Brain/Head without Contrast IMPRESSION: No acute intracranial abnormality. Reading Location: [id number]
--- NOTE | 2025-10-19 09:15 | EDS_ITS ---
HPI HPI - Fall History of Present Illness Chief Complaint: Fall Narrative Narrative: 65-year-old male history of COPD, cerebral aneurysm repair, CAD on Plavix presents emergency department for complaint of fall. Patient states that he was trying to take a tree down from his house on a 10 foot ladder and it was really windy and the wind blew him off his ladder. Patient states he landed on his right side complaining of right shoulder pain back pain and right hip pain. Was able to ambulate unsure of any loss of consciousness but did hit his head. States this happened approximately 45 minutes prior to arrival. [facility] Medical History Wears glasses Wears dentures Unsteady gait Spermatocele Scrotal swelling Screen for colon cancer Right nephrolithiasis Renal lesion Prostatosis syndrome Peyronie disease PVD (peripheral vascular disease) Need for hepatitis C screening test Meniscus degeneration Major depression in remission Lung nodules Lumbar radiculopathy Lumbar foraminal stenosis Left wrist pain Left leg weakness Iron deficiency Immunity status testing High risk medication use Former smoker Foot pain Family history of Vern's disease Chronic, continuous use of opioids Chronic pain Calcified granuloma of lung CAD (coronary artery disease) Brain aneurysm BPH (benign prostatic hyperplasia) Aortic atherosclerosis Anal fissure Abnormal EKG Former cigarette smoker Osteopenia COPD with emphysema Left rotator cuff tear Anemia GERD (gastroesophageal reflux disease) Left shoulder pain Hemorrhoid Epilepsy Sciatica High cholesterol Home Medications ?Medication ?Instructions ?Recorded ?Last Taken ?Type gabapentin 300 mg capsule 400 mg PO 4X/DAY 04/02/22 Un known History hydrocortisone acetate 25 mg 25 mg DE QHS #12 ea 04/27 Unknown Rx rectal suppository (Anusol-HC) atorvastatin 40 mg tablet (Lipitor) 40 mg PO QHS 01/13 Unknown History polyethylene glycol 3350 17 17 g PO DAILY #119 grams 0 05/31/23 Unknown Rx gram/dose oral powder (ClearLax) cyclobenzaprine 5 mg tablet 5 mg PO TID PRN muscle spa sm 4 11/05/24 Unknown Rx days #12 tabs clopidogrel 75 mg tablet 75 mg PO QDAY 11/13/24 Unkno wn History duloxetine 30 mg capsule,delayed See Rx Instructions P O QDAY 11/13/24 Unknown History release ferrous sulfate 325 mg (65 mg 325 mg PO QDAY 11/13/24 Unknown History iron) tablet pantoprazole 40 mg tablet,delayed 40 mg PO QDAY Unknown History release ondansetron 4 mg disintegrating 4 mg PO Q8H PRN PRN Na usea #10 tabs 11/25/24 Unknown Rx tablet cyclobenzaprine 10 mg tablet 10 mg PO QHS PRN PRN Musc le Spasm 06/11/25 Unknown Rx #10 TABLETS Diltiazem TNF med topical 07/31/25 Unknown His tory acetaminophen 500 mg tablet 500 mg PO Q8 07/31/25 Unkn own History albuterol sulfate 90 mcg/actuation 2 puff inhalation Q 4 07/31/25 Unknown History aerosol inhaler denosumab 60 mg/mL subcutaneous 60 mg subcut [id number] 07/31/25 Unknown History syringe diltiazem HCl 120 mg tablet mg PO 07/31/25 Unknown His tory finasteride 5 mg tablet 5 mg PO DAILY 07/31/25 Unkno wn History fluticasone propionate 220 2 puff inhalation BID 07/31 Unknown History mcg/actuation HFA aerosol inhaler hydrocortisone 1 % topical cream applic topical BID Unknown History oxycodone-acetaminophen 10 mg-325 1 tab PO Q6 07/31/25 Unknown History mg tablet oxycodone-acetaminophen 7.5 mg-325 1 tab PO Q6 5 Unknown History mg tablet psyllium husk 3.4 gram oral powder 3.4 g PO TID PRN Unknown History packet (Daily Fiber (psyllium-aspartame)) sennosides 8.6 mg tablet (senna) 17.2 mg PO PRN consti pation 07/31/25 Unknown History tiotropium 2.5 mcg-olodaterol 2.5 2 puff inhalation DA BASIL 07/31/25 Unknown History mcg/actuation mist for inhalation (Stiolto Respimat) ondansetron 4 mg disintegrating 4 mg PO Q6H PRN nausea and 08/28/25 Unknown Rx tablet vomiting #20 tabs oxycodone-acetaminophen 5 mg-325 1 tab PO Q6H PRN pain 3 days #12 08/28/25 Unknown Rx mg tablet (Endocet) tabs Allergy/AdvReac Type Severity Reaction Status Date / Time lidocaine (From Lidoderm) Allergy Mild Rash Verified 10/19/25 08:58 cyclobenzaprine (From Allergy Unknown Itching, Verified 10/19/25 08:58 Flexeril) rash tamsulosin (From Flomax) Allergy Unknown Itching Verified 10/19/25 08:58 buprenorphine AdvReac Intermediate Nausea Verified 10/19/25 08:58 acetaminophen (From Vicodin) AdvReac Unknown unknown Verified 10/19/25 08:58 codeine AdvReac Unknown Nausea Verified 10/19/25 08:58 docusate AdvReac Unknown Itching Verified 10/19/25 08:58 nabumetone AdvReac Unknown Shortness Verified 10/19/25 08:58 of breath adhesive tape (tape) AdvReac Rash Verified 10/19/25 08:58 hydrocodone (From [place]) AdvReac Upset Verified 10/19/25 08:58 Stomach ibuprofen AdvReac Upset Verified 10/19/25 08:58 Stomach ketorolac (From Toradol) AdvReac Rash Verified 10/19/25 08:58 meloxicam (From Mobic) AdvReac Muscle Verified 10/19/25 08:58 weakness naproxen AdvReac Rash Verified 10/19/25 08:58 tramadol AdvReac Upset Verified 10/19/25 08:58 Stomach Family History Mother Cancer Heart disease Father Diabetes Heart disease Surgical History H/O craniotomy S/P cerebral aneurysm repair Leg fracture, left S/P clamping of cerebral aneurysm Social History household members: significant other current occupational status: retired Smoking Status: Former smoker alcohol intake: former substance use type: does not use EXAM Physical Exam Const Vital Signs: 10/19/25 08:54 Temperature 97.6 F L Temperature Source Oral Pulse Rate 77 Respiratory Rate 20 H Blood Pressure 167/101 H Blood Pressure Mean 123 Pulse Ox 100 HEENT Reports normocephalic atraumatic Neck full ROM General: Negative for tenderness Chest Wall inspection of chest normal and palpation of chest normal Resp normal respiratory effort and clear to auscultation bilaterally Effort and Inspection: Negative for pain with movement Cardio regular rate and no murmurs Cardio Narrative: 2+ radial and DP pulses, 2+ femoral pulses bilaterally GI non-tender and non-distended GI Narrative: no bruising Inspection: Negative for abdominal distention Palpation: soft; Negative for guarding Back/Spine Cervical Spine: Negative for cervical spine tenderness Thoracic Spine / Upper Back: pain with ROM and thoracic spinal tenderness T5, T6, T7 and T8 Lumbar Spine / Lower Back: lumbar spinal tenderness L1 and L2 Extremity Extremity Narrative: Tenderness to the right shoulder limited range of motion with abduction Neuro oriented x3, CN's II-XII intact bilaterally, moves all extremities, no focal motor deficits and no sensory deficits noted [place] Coma Scale: document GCS findings (GCS 15) MDM MDM MDM Narrative Medical decision making narrative: 65-year-old male history of COPD, cerebral aneurysm repair, CAD on Plavix presents emergency department for complaint of fall. Patient states that he was trying to take a tree down from his house on a 10 foot ladder and it was really windy and the wind blew him off his ladder. Patient states he landed on his right side complaining of right shoulder pain back pain and right hip pain. Was able to ambulate unsure of any loss of consciousness but did hit his head. States this happened approximately 45 minutes prior to arrival. Lab Data Attestation: I reviewed the patient's lab results. Discharge Plan Triage Chief Complaint: Fall ED Provider: Jocelin Kilgore Dx/Rx/DC Orders Prescriptions: No Action ferrous sulfate 325 mg (65 mg iron) tablet 325 mg PO QDAY pantoprazole 40 mg tablet,delayed release (DR/EC) 40 mg PO QDAY sennosides [senna] 8.6 mg tablet 17.2 mg PO PRN (Reason: constipation) acetaminophen 500 mg tablet 500 mg PO Q8 diltiazem HCl 120 mg tablet PO oxycodone-acetaminophen 10-325 mg tablet 1 tab PO Q6 hydrocortisone 1 % cream topical BID fluticasone propionate 220 mcg/actuation HFA aerosol inhaler 2 puff inhalation BID oxycodone-acetaminophen 7.5-325 mg tablet 1 tab PO Q6 albuterol sulfate 90 mcg/actuation HFA aerosol inhaler 2 puff inhalation Q4 finasteride 5 mg tablet 5 mg PO DAILY Daily Fiber (psyllium-aspart) 3.4 gram powder in packet 3.4 g PO TID PRN denosumab 60 mg/mL syringe 60 mg subcut [id number] Stiolto Respimat 2.5-2.5 mcg/actuation mist 2 puff inhalation DAILY Diltiazem TNF med cream topical Rx Instructions: 1 application. Four times a day as needed for anal fissure. 2% strength cream gabapentin 300 mg capsule 400 mg PO 4X/DAY hydrocortisone acetate [Anusol-HC] 25 mg suppository 25 mg DE QHS Qty: 12 0RF atorvastatin [Lipitor] 40 mg Tablet 40 mg PO QHS polyethylene glycol 3350 [ClearLax] 17 gram/dose powder 17 g PO DAILY Qty: 119 0RF clopidogrel 75 mg tablet 75 mg PO QDAY Patient Comments: TAKE 1 TABLET BY MOUTH EVERY DAY duloxetine 30 mg capsule,delayed release(DR/EC) See Rx Instructions PO QDAY Patient Comments: TAKE 2 CAPSULE BY MOUTH in AM and 1 cap at night Rx Instructions: orally daily; ondansetron 4 mg tablet,disintegrating 4 mg PO Q8H PRN PRN (Reason: Nausea) Qty: 10 0RF cyclobenzaprine 5 mg tablet 5 mg PO TID PRN (Reason: muscle spasm) 4 Days Qty: 12 0RF cyclobenzaprine 10 mg tablet 10 mg PO QHS PRN PRN (Reason: Muscle Spasm) Qty: 10 0RF oxycodone-acetaminophen [Endocet] 5-325 mg tablet 1 tab PO Q6H PRN (Reason: pain) 3 Days Qty: 12 0RF ondansetron 4 mg tablet,disintegrating 4 mg PO Q6H PRN (Reason: nausea and vomiting) Qty: 20 0RF Primary Care Provider: Jefferson Gregorio Referrals: Jefferson Gregorio DO [Primary Care Provider, Family Practice] Print Language: Afghan
--- NOTE | 2025-10-19 09:15 | ED.VIS.FALL ---
HPI HPI - Fall History of Present Illness Chief Complaint: Fall Narrative Narrative: 65-year-old male history of COPD, cerebral aneurysm repair, CAD on Plavix presents emergency department for complaint of fall. Patient states that he was trying to take a tree down from his house on a 10 foot ladder and it was really windy and the wind blew him off his ladder. Patient states he landed on his right side complaining of right shoulder pain back pain and right hip pain. Was able to ambulate unsure of any loss of consciousness but did hit his head. States this happened approximately 45 minutes prior to arrival. [facility] Medical History Wears glasses Wears dentures Unsteady gait Spermatocele Scrotal swelling Screen for colon cancer Right nephrolithiasis Renal lesion Prostatosis syndrome Peyronie disease PVD (peripheral vascular disease) Need for hepatitis C screening test Meniscus degeneration Major depression in remission Lung nodules Lumbar radiculopathy Lumbar foraminal stenosis Left wrist pain Left leg weakness Iron deficiency Immunity status testing High risk medication use Former smoker Foot pain Family history of Vern's disease Chronic, continuous use of opioids Chronic pain Calcified granuloma of lung CAD (coronary artery disease) Brain aneurysm BPH (benign prostatic hyperplasia) Aortic atherosclerosis Anal fissure Abnormal EKG Former cigarette smoker Osteopenia COPD with emphysema Left rotator cuff tear Anemia GERD (gastroesophageal reflux disease) Left shoulder pain Hemorrhoid Epilepsy Sciatica High cholesterol Home Medications ?Medication ?Instructions ?Recorded ?Last Taken ?Type gabapentin 300 mg capsule 400 mg PO 4X/DAY 04/02/22 Unknown History hydrocortisone acetate 25 mg 25 mg MN QHS #12 ea 04/27/22 Unknown Rx rectal suppository (Anusol-HC) atorvastatin 40 mg tablet (Lipitor) 40 mg PO QHS 01/13/23 Unknown History polyethylene glycol 3350 17 17 g PO DAILY #119 grams 05/31/23 Unknown Rx gram/dose oral powder (ClearLax) cyclobenzaprine 5 mg tablet 5 mg PO TID PRN muscle spasm 4 11/05/24 Unknown Rx days #12 tabs clopidogrel 75 mg tablet 75 mg PO QDAY 11/13/24 Unknown History duloxetine 30 mg capsule,delayed See Rx Instructions PO QDAY 11/13/24 Unknown History release ferrous sulfate 325 mg (65 mg 325 mg PO QDAY 11/13/24 Unknown History iron) tablet pantoprazole 40 mg tablet,delayed 40 mg PO QDAY 11/13/24 Unknown History release ondansetron 4 mg disintegrating 4 mg PO Q8H PRN PRN Nausea #10 tabs 11/25/24 Unknown Rx tablet cyclobenzaprine 10 mg tablet 10 mg PO QHS PRN PRN Muscle Spasm 06/11/25 Unknown Rx #10 TABLETS Diltiazem TNF med topical 07/31/25 Unknown History acetaminophen 500 mg tablet 500 mg PO Q8 07/31/25 Unknown History albuterol sulfate 90 mcg/actuation 2 puff inhalation Q4 07/31/25 Unknown History aerosol inhaler denosumab 60 mg/mL subcutaneous 60 mg subcut [id number] 07/31/25 Unknown History syringe diltiazem HCl 120 mg tablet mg PO 07/31/25 Unknown History finasteride 5 mg tablet 5 mg PO DAILY 07/31/25 Unknown History fluticasone propionate 220 2 puff inhalation BID 07/31/25 Unknown History mcg/actuation HFA aerosol inhaler hydrocortisone 1 % topical cream applic topical BID 07/31/25 Unknown History oxycodone-acetaminophen 10 mg-325 1 tab PO Q6 07/31/25 Unknown History mg tablet oxycodone-acetaminophen 7.5 mg-325 1 tab PO Q6 07/31/25 Unknown History mg tablet psyllium husk 3.4 gram oral powder 3.4 g PO TID PRN 07/31/25 Unknown History packet (Daily Fiber (psyllium-aspartame)) sennosides 8.6 mg tablet (senna) 17.2 mg PO PRN constipation 07/31/25 Unknown History tiotropium 2.5 mcg-olodaterol 2.5 2 puff inhalation DAILY 07/31/25 Unknown History mcg/actuation mist for inhalation (Stiolto Respimat) ondansetron 4 mg disintegrating 4 mg PO Q6H PRN nausea and 08/28/25 Unknown Rx tablet vomiting #20 tabs oxycodone-acetaminophen 5 mg-325 1 tab PO Q6H PRN pain 3 days #12 08/28/25 Unknown Rx mg tablet (Endocet) tabs tizanidine 4 mg tablet 4 mg PO Q8H PRN muscle spasticity 10/19/25 Unknown Rx #10 tabs Allergy/AdvReac Type Severity Reaction Status Date / Time lidocaine (From Lidoderm) Allergy Mild Rash Verified 10/19/25 08:58 cyclobenzaprine (From Allergy Unknown Itching, Verified 10/19/25 08:58 Flexeril) rash tamsulosin (From Flomax) Allergy Unknown Itching Verified 10/19/25 08:58 buprenorphine AdvReac Intermediate Nausea Verified 10/19/25 08:58 acetaminophen (From Vicodin) AdvReac Unknown unknown Verified 10/19/25 08:58 codeine AdvReac Unknown Nausea Verified 10/19/25 08:58 docusate AdvReac Unknown Itching Verified 10/19/25 08:58 nabumetone AdvReac Unknown Shortness Verified 10/19/25 08:58 of breath adhesive tape (tape) AdvReac Rash Verified 10/19/25 08:58 hydrocodone (From [place]) AdvReac Upset Verified 10/19/25 08:58 Stomach ibuprofen AdvReac Upset Verified 10/19/25 08:58 Stomach ketorolac (From Toradol) AdvReac Rash Verified 10/19/25 08:58 meloxicam (From Mobic) AdvReac Muscle Verified 10/19/25 08:58 weakness naproxen AdvReac Rash Verified 10/19/25 08:58 tramadol AdvReac Upset Verified 10/19/25 08:58 Stomach Family History Mother Cancer Heart disease Father Diabetes Heart disease Surgical History H/O craniotomy S/P cerebral aneurysm repair Leg fracture, left S/P clamping of cerebral aneurysm Social History household members: significant other current occupational status: retired Smoking Status: Former smoker alcohol intake: former substance use type: does not use EXAM Physical Exam Const Vital Signs: 10/19/25 08:54 10/19/25 09:32 10/19/25 09:53 Temperature 97.6 F L Temperature Source Oral Pulse Rate 77 88 Respiratory Rate 20 H 18 Respiratory Effort Normal Blood Pressure 167/101 H 148/72 H Blood Pressure Mean 123 97 Pulse Ox 100 99 10/19/25 10:00 10/19/25 11:00 10/19/25 11:14 Temperature 97.9 F Temperature Source Pulse Rate 68 68 78 Respiratory Rate 18 18 16 Respiratory Effort Blood Pressure 124/72 H 120/72 132/70 H Blood Pressure Mean 89 88 90 Pulse Ox 99 99 98 10/19/25 11:22 Temperature 97.9 F Temperature Source Pulse Rate 78 Respiratory Rate 16 Respiratory Effort Blood Pressure 132/70 H Blood Pressure Mean 90 Pulse Ox 98 HEENT Reports normocephalic atraumatic Neck full ROM General: Negative for tenderness Chest Wall inspection of chest normal and palpation of chest normal Resp normal respiratory effort and clear to auscultation bilaterally Effort and Inspection: Negative for pain with movement Cardio regular rate and no murmurs Cardio Narrative: 2+ radial and DP pulses, 2+ femoral pulses bilaterally GI non-tender and non-distended GI Narrative: no bruising Inspection: Negative for abdominal distention Palpation: soft; Negative for guarding Back/Spine Cervical Spine: Negative for cervical spine tenderness Thoracic Spine / Upper Back: pain with ROM and thoracic spinal tenderness T5, T6, T7 and T8 Lumbar Spine / Lower Back: lumbar spinal tenderness L1 and L2 Extremity Extremity Narrative: Tenderness to the right shoulder limited range of motion with abduction Neuro oriented x3, CN's II-XII intact bilaterally, moves all extremities, no focal motor deficits and no sensory deficits noted [place] Coma Scale: document GCS findings (GCS 15) MDM MDM MDM Narrative Medical decision making narrative: 65-year-old male history of COPD, cerebral aneurysm repair, CAD on Plavix presents emergency department for complaint of fall. Patient states that he was trying to take a tree down from his house on a 10 foot ladder and it was really windy and the wind blew him off his ladder. Patient states he landed on his right side complaining of right shoulder pain back pain and right hip pain. Was able to ambulate unsure of any loss of consciousness but did hit his head. States this happened approximately 45 minutes prior to arrival. On my physical exam patient having a tenderness over the right shoulder. No obvious deformities. Limited range of motion with abduction at right shoulder though neurovascularly intact with 2+ radial pulses, femoral pulses and DP pulses. GCS 15. Pelvis stable and no chest wall tenderness. CT head performed showing no acute intracranial abnormality or bleed. CT cervical thoracic and lumbar spine with reconstruction done showing no evidence of vertebral fractures or dislocation. CT chest and abdomen pelvis performed showing no evidence of hollow viscus injury or traumatic injuries. X-ray of the right shoulder showed no fracture or dislocation but did show suspicion for possible rotator cuff injury. They did note incidental finding of nodule in the lung which I did update patient on to follow-up with his primary care provider for repeat imaging in the next couple months. Will give tizanidine to use as needed for muscle spasms the patient does have prescription for Percocets at home for his chronic pain provided by his PCP. Will give referral for orthopedic surgery to see about shoulder pain as suspect he will likely need an MRI. Patient is moving all extremities and vitals remained stable on reassessment and is agreeable for discharge with return precautions given. Lab Data Attestation: I reviewed the patient's lab results. Lab results narrative: Lab work largely unremarkable with baseline values. Hemoglobin stable within normal limits at 13.3. PT/INR normal with no elevated bleeding times. Electrolytes within normal limits creatinine baseline is 0.9. Labs: Laboratory Results - last 24 hr 10/19/25 09:20 WBC 6.8 RBC 4.34 L Hgb 13.3 Hct 40.4 MCV 93.1 MCH 30.6 MCHC 32.9 RDW Std Deviation 45.6 H RDW Coeff of Jerry 13.4 Plt Count 390 MPV 8.4 Immature Gran % (Auto) 0.100 Neut % (Auto) 68.4 Lymph % (Auto) 18.8 L [place] % (Auto) 8.2 Eos % (Auto) 3.8 Baso % (Auto) 0.7 Absolute Neuts (auto) 4.7 Absolute Lymphs (auto) 1.28 Nucleated RBC % 0 PT 13.1 INR 1.0 APTT 26.4 Sodium 138 Potassium 4.3 Chloride 103 Carbon Dioxide 26.8 Anion Gap 9 BUN 20 H Creatinine 0.91 Estim Creat Clear Calc 76.48 Est GFR (MDRD) Non-Af 91 BUN/Creatinine Ratio 22.0 H Glucose 93 Calcium 10.0 Total Bilirubin 0.44 AST 17 ALT 15 Alkaline Phosphatase 96 Total Protein 7.5 Albumin 4.4 Globulin 3.1 Albumin/Globulin Ratio 1.4 Lipase 49 Radiography CTA PE Study: - (CT brain, cervical, thoracic and lumbar spine and chest, abdomen pelvis: Independently interpreted by myself showing no evidence of acute traumatic injury) Diagnostic Testing: Clinical Impression(s) from Imaging Studies Brain CT 10/19/25 09:11 IMPRESSION: No acute intracranial abnormality. Reading Location: [id number] Cervical Spine CT 10/19/25 09:11 IMPRESSION: No acute injuries the chest, abdomen and pelvis. No acute injuries to the cervical, thoracic or lumbar spine. An 8 mm solid nodule in the right lower lobe. Within 3 months, repeat CT chest, tissue sampling or FDG PET scan may be performed. A punctate stone in the right kidney. No hydronephrosis. Left-sided hydrocele. Reading Location: [id number] Chest/Abdomen/Pelvis CT 10/19/25 09:11 IMPRESSION: No acute injuries the chest, abdomen and pelvis. No acute injuries to the cervical, thoracic or lumbar spine. An 8 mm solid nodule in the right lower lobe. Within 3 months, repeat CT chest, tissue sampling or FDG PET scan may be performed. A punctate stone in the right kidney. No hydronephrosis. Left-sided hydrocele. Reading Location: [id number] Lumbar Spine CT 10/19/25 09:11 IMPRESSION: No acute injuries the chest, abdomen and pelvis. No acute injuries to the cervical, thoracic or lumbar spine. An 8 mm solid nodule in the right lower lobe. Within 3 months, repeat CT chest, tissue sampling or FDG PET scan may be performed. A punctate stone in the right kidney. No hydronephrosis. Left-sided hydrocele. Reading Location: [id number] Thoracic Spine CT 10/19/25 09:11 IMPRESSION: No acute injuries the chest, abdomen and pelvis. No acute injuries to the cervical, thoracic or lumbar spine. An 8 mm solid nodule in the right lower lobe. Within 3 months, repeat CT chest, tissue sampling or FDG PET scan may be performed. A punctate stone in the right kidney. No hydronephrosis. Left-sided hydrocele. Reading Location: [id number] Shoulder X-Ray 10/19/25 09:52 IMPRESSION: Degenerative osteoarthritic changes are seen involving the right shoulder. No fractures or dislocations. Findings suggesting possible rotator cuff tendon injury. An MRI examination may be of value for further evaluation if clinically indicated. Reading Location: [facility] Discharge Plan Triage Chief Complaint: Fall ED Provider: Jocelin Kilgore Dx/Rx/DC Orders Clinical Impression: Fall, Acute pain of right shoulder, Pulmonary nodule Prescriptions: New tizanidine 4 mg tablet 4 mg PO Q8H PRN (Reason: muscle spasticity) Qty: 10 0RF No Action ferrous sulfate 325 mg (65 mg iron) tablet 325 mg PO QDAY pantoprazole 40 mg tablet,delayed release (DR/EC) 40 mg PO QDAY sennosides [senna] 8.6 mg tablet 17.2 mg PO PRN (Reason: constipation) acetaminophen 500 mg tablet 500 mg PO Q8 diltiazem HCl 120 mg tablet PO oxycodone-acetaminophen 10-325 mg tablet 1 tab PO Q6 hydrocortisone 1 % cream topical BID fluticasone propionate 220 mcg/actuation HFA aerosol inhaler 2 puff inhalation BID oxycodone-acetaminophen 7.5-325 mg tablet 1 tab PO Q6 albuterol sulfate 90 mcg/actuation HFA aerosol inhaler 2 puff inhalation Q4 finasteride 5 mg tablet 5 mg PO DAILY Daily Fiber (psyllium-aspart) 3.4 gram powder in packet 3.4 g PO TID PRN denosumab 60 mg/mL syringe 60 mg subcut [id number] Stiolto Respimat 2.5-2.5 mcg/actuation mist 2 puff inhalation DAILY Diltiazem TNF med cream topical Rx Instructions: 1 application. Four times a day as needed for anal fissure. 2% strength cream gabapentin 300 mg capsule 400 mg PO 4X/DAY hydrocortisone acetate [Anusol-HC] 25 mg suppository 25 mg MN QHS Qty: 12 0RF atorvastatin [Lipitor] 40 mg Tablet 40 mg PO QHS polyethylene glycol 3350 [ClearLax] 17 gram/dose powder 17 g PO DAILY Qty: 119 0RF clopidogrel 75 mg tablet 75 mg PO QDAY Patient Comments: TAKE 1 TABLET BY MOUTH EVERY DAY duloxetine 30 mg capsule,delayed release(DR/EC) See Rx Instructions PO QDAY Patient Comments: TAKE 2 CAPSULE BY MOUTH in AM and 1 cap at night Rx Instructions: orally daily; ondansetron 4 mg tablet,disintegrating 4 mg PO Q8H PRN PRN (Reason: Nausea) Qty: 10 0RF cyclobenzaprine 5 mg tablet 5 mg PO TID PRN (Reason: muscle spasm) 4 Days Qty: 12 0RF cyclobenzaprine 10 mg tablet 10 mg PO QHS PRN PRN (Reason: Muscle Spasm) Qty: 10 0RF oxycodone-acetaminophen [Endocet] 5-325 mg tablet 1 tab PO Q6H PRN (Reason: pain) 3 Days Qty: 12 0RF ondansetron 4 mg tablet,disintegrating 4 mg PO Q6H PRN (Reason: nausea and vomiting) Qty: 20 0RF Primary Care Provider: Jefferson Gregorio Referrals: Jefferson Gregorio DO [Primary Care Provider, Family Practice] Mario Blevins DO [Med Staff - Active Staff, [facility]] Clinical Impression: Acute pain of right shoulder Activity Restrictions/Additional Instructions: Please follow-up with your primary care provider within the next week regarding your visit today. You are also given a referral to follow-up with orthopedic surgery as your x-ray showed possible rotator cuff injury which will need to be confirmed by MRI. Your CT imaging showed no evidence of traumatic injury. You are prescribed tizanidine to take as needed for pain and muscle spasms and you may supplement this with up to 800 mg ibuprofen and 1000 mg Tylenol. Return if you develop any worsening symptoms. Print Language: Danish Disposition Disposition: Home, Self Care Discharge Date/Time: 10/19/25 11:22
[2025-10-19 09:27] LABS: Hematocrit 40.4 % (40-54); Hemoglobin 13.3 g/dL (13.0-16.5); Immature Granulocytes Count 0.010 X10^3/uL (0.0-0.0); Mean Corp Hgb Conc 32.9 g/dL (32-36); Mean Corpuscular Volume 93.1 fL (80-94); Mean Platelet Vol. 8.4 fl (6.2-12.0); NRBC Flagged by Analyzer 0 % (0-5); Platelet Count 390 K/mm3 (150-450); RBC Distribution Width CV 13.4 % (11.6-14.6); RBC Distribution Width SD 45.6 fl (35.1-43.9); Red Blood Count 4.34 M/mm3 (4.6-6.2); White Blood Count 6.8 K/mm3 (4.4-11.0)
[2025-10-19 09:35] LABS: Prothrombin Time (Protime)PT. 13.1 SECONDS (11.7-14.9)
[2025-10-19 09:36] LABS: Partial Thromboplast Time 26.4 Seconds (24.1-36.2)
--- NOTE | 2025-10-19 09:52 | RAD_ITS ---
PROCEDURE: SHOULDER MIN 2 VIEWS 10/19/2025 REASON FOR EXAM: FALL TECHNIQUE: Procedure Code: RADSH Modality: DX Procedure: SHOULDER MIN 2 VIEWS COMPARISON: None FINDINGS: Four views of the right shoulder demonstrate well-circumscribed lytic lesions with sclerotic margins in the right humeral head and acromion. These appear to represent benign bony cyst. There is subtle irregularity of the right humeral head at the insertion site of the rotator cuff tendon. The acromial humeral space is decreased measuring 5 mm. These findings can be associated with rotator cuff injury. Moderate degenerative osteoarthritic changes are seen involving the acromioclavicular joint and very mild degenerative osteoarthritic changes are seen involving the glenohumeral joint. There are no fractures or dislocations. The coracoclavicular space is well preserved. Visualized right ribs are intact. There is no pneumothorax or lung contusion seen on the visualized portion of the lung. RAD/Shoulder min 2 Views IMPRESSION: Degenerative osteoarthritic changes are seen involving the right shoulder. No fractures or dislocations. Findings suggesting possible rotator cuff tendon injury. An MRI examination ma y be of value for further evaluation if clinically indicated. Reading Location: [id number]
[2025-10-19 09:53] VITALS: BP 148/72; PULSE 88; RESP 18; O2SAT 99
[2025-10-19 09:58] LABS: AST(SGOT) 17 U/L (<=37); Alanine Aminotransfer ALT/SGPT 15 U/L (<=46); Albumin, Serum 4.4 g/dL (3.4-4.8); Alkaline Phosphatase 96 U/L (40-129); Anion Gap 9 (7-18); BUN 20 mg/dL (4-19); BUN/Creat Ratio 22.0 RATIO (10-20); Calcium,Total 10.0 mg/dL (7.6-11.0); Carbon Dioxide 26.8 mmol/L (20.0-29.0); Chloride 103 mmol/L (96-106); Estimated Creatinine Clearance 76.48 ml/min (50-250); Globulin 3.1 g/dL (2.2-4.2); Glucose 93 mg/dL (70-99); Lipase 49 U/L (13-75); Potassium 4.3 mmol/L (3.5-5.1)
[2025-10-19 10:00] VITALS: BP 124/72; PULSE 68; RESP 18; O2SAT 99
[2025-10-19 11:00] VITALS: BP 120/72; PULSE 68; RESP 18; O2SAT 99
[2025-10-19 11:14] VITALS: BP 132/70; PULSE 78; RESP 16; TEMP 36.6; O2SAT 98
[2025-10-19 11:22] VITALS: BP 132/70; PULSE 78; RESP 16; TEMP 36.6; O2SAT 98
== END 2025-10-19 11:22 | disposition home or self-care (01) ==
PROVIDERS: Emergency Provider Student in an Organized Health Care Education/Training Program; PCP Student in an Organized Health Care Education/Training Program; Visit Provider Student in an Organized Health Care Education/Training Program
DX: M25.511 Pain in right shoulder (principal); W11.XXXA Fall on and from ladder, initial encounter; R91.1 Solitary pulmonary nodule; I25.10 Atherosclerotic heart disease of native coronary artery without angina pectoris; Z79.02 Long term (current) use of antithrombotics/antiplatelets; Z87.891 Personal history of nicotine dependence
CPT/HCPCS: 70450; 71260; 72125; 72128; 72131; 73030; 74177; 80053; 83690; 85025; 85610; 85730; 96374; 99283; Q9967; A4216